=== PATIENT | female | born 1975 | race Caucasian/White ===

== ENCOUNTER 2018-06-29 16:52 | Inpatient (IN) | payer SELFPAY ==
[~2018-06-29] VITALS: Ht 160 cm; Wt 72.5 kg
--- OUTSIDE RECORDS SUMMARY | 2018-06-29 17:03 | XMS REPORT | Referral Summary ---
Author Author [facility] Organization [facility] Address Unknown Phone Unavailable Care Team Providers Care Seismic Observer Name Role Phone Beronica Raphael PCP Encounter VC Date(s): 07/05/16 - 07/06/16 [facility] [address] [place] [address] Discharge Diagnosis: Kidney stone Discharge Disposition: 01-Home or Self Care Attending Physician: Miguel Osborne MD Admitting Physician: Miguel Osborne MD Vital Signs Most recent to 1 oldest [Reference Range]: Temperature Oral 36.7 degC [35.8-37.3 degC] (07/05/16 11:53 PM) Peripheral Pulse 83 bpm Rate [60-100 bpm] (07/05/16 11:53 PM) Heart Rate Monitored 100 bpm [60-100 bpm] (07/06/16 3:12 AM) Respiratory Rate 20 br/min [14-20 br/min] (07/06/16 3:38 AM) Blood Pressure 114/65 mmHg [90-140/60-90 mmHg] (07/06/16 3:38 AM) Mean Arterial 92 mmHg Pressure, Cuff (07/06/16 3:00 AM) SpO2 99 % (07/06/16 3:38 AM) Problem List Condition Effective Dates Status Health Status Informant Acute Active pain(Confirmed) Anemia(Confirmed) Active patient At risk for Active infection(Confirmed) 1 Impaired skin Active integrity(Confirmed) 2 Kidney Active patient stones(Confirmed) MRSA(Confirmed) < 01/15/14 Resolved Obesity(Confirmed) Active patient Orbital cellulitis Active on right(Confirmed) Seizures(Confirmed) Active patient Tissue perfusion Active alteration(Confirmed )3 1Problem added automatically by system based on initiation of At Risk for Infection in Nutrition Plan of Care 2Problem added automatically by system based on initiation of Impaired Skin Integrity Plan of Care 3Problem added automatically by system based on initiation of Tissue Perfusion Cerebral Plan of Care Allergies, Adverse Reactions, Alerts Substance Reaction Severity Status Toradol Active Ultram seizures Active Medications acetaminophen 1,000 mg, Oral, q6hr, as needed for pain, Uses 3rd, 0 Refill(s) Start Date: 06/15/15 Status: Ordered Diflucan 150 mg oral tablet 150 mg 1 tabs, Oral, Once, # 1 tabs, 0 Refill(s) Start Date: 02/26/16 Status: Ordered Dilantin 100 mg oral capsule, extended release mg caps, Oral, Bedtime (once a day), 0 Refill(s) Start Date: 11/24/15 Status: Ordered ferrous sulfate 325 mg, Oral, TID, 0 Refill(s) Start Date: 01/16/15 Status: Ordered omeprazole 20 mg, Oral, Daily, 0 Refill(s) Start Date: 06/15/15 Status: Ordered Percocet 5/325 oral tablet 1 tabs, Oral, q4hr, as needed for pain, X 7 days, # 24 tabs, 0 Refill(s) Start Date: 07/06/16 Stop Date: 07/13/16 Status: Ordered Xanax 2 mg, Oral, TID, 0 Refill(s) Start Date: 01/16/15 Status: Ordered Zofran 4 mg oral tablet 4 mg 1 tabs, Oral, q4hr, Nausea or Vomiting | as needed for nausea/vomiting, # 10 tabs, 0 Refill(s) Start Date: 07/06/16 Status: Ordered Results Chemistry Most recent to 1 oldest [Reference Range]: Sodium Venous 140 mEq/L [136-144 mEq/L] (07/06/16 1:49 AM) Potassium Venous 3.8 mEq/L 1 [3.6-5.1 mEq/L] (07/06/16 1:49 AM) Calcium Ionized 1.15 mmol/L Venous [1.19-1.41 *LOW* mmol/L] (07/06/16 1:49 AM) Total CO2 Venous 25 mEq/L [25-29 mEq/L] (07/06/16 1:49 AM) HGB Venous NPT 8.8 gm/dL [12.0-16.0 gm/dL] *LOW* (07/06/16 1:49 AM) HCT Venous 26.0 % [37.0-47.0 %] *LOW* (07/06/16 1:49 AM) Glucose Venous 78 mg/dL [70-100 mg/dL] (07/06/16 1:49 AM) BUN Venous [4-20] 12 (07/06/16 1:49 AM) Creatinine Venous 0.6 mg/dL [0.4-1.0 mg/dL] (07/06/16 1:49 AM) Venous CL [99-109 104 mEq/L mEq/L] (07/06/16 1:49 AM) Anion Gap, Estuardo 11 [3-20] (07/06/16 1:49 AM) Screen, Negative Urine NPT (07/06/16 1:48 AM) 1Result Comment: This test was performed on a whole blood specimen. The presence or absence of hemolysis cannot be assessed. Hemolysis can falsely elevate potassium levels. Normals are for venous specimens only. Urinalysis Most recent to 1 oldest [Reference Range]: UA Color Yellow (07/06/16 1:50 AM) UA Appear Sl Cloudy (07/06/16 1:50 AM) UA pH [5.0-8.0] 5.0 (07/06/16 1:50 AM) UA Leuk Est Negative [Negative] (07/06/16 1:50 AM) UA Nitrite Negative [Negative] (07/06/16 1:50 AM) UA Protein Negative [Negative] (07/06/16 1:50 AM) UA Glucose Negative [Negative] (07/06/16 1:50 AM) UA Ketones Negative [Negative] (07/06/16 1:50 AM) UA Urobilinogen Negative [<1.0] (07/06/16 1:50 AM) UA Bili [Negative] Negative (07/06/16 1:50 AM) UA Blood [Negative] Pos 3+ *ABN* (07/06/16 1:50 AM) UA Spec Grav 1.030 [1.003-1.030] (07/06/16 1:50 AM) Type Clean Catch (07/06/16 1:50 AM) UA WBC [0-4] 2-5 (07/06/16 1:50 AM) UA RBC [0-2 /HPF] >50 /HPF *ABN* (07/06/16 1:50 AM) Epithelial Cells 5-10 (07/06/16 1:50 AM) UA Bacteria Occasional *ABN* (07/06/16 1:50 AM) Immunizations Given and Recorded Vaccine Date Status Refusal Reason influenza virus vaccine, live 05/04/11 Given tetanus-diphth toxoids (Td) adult/adol 09/30/03 Given Procedures No data available for this section Social History Social History Type Response Smoking Status Never smoker Assessment and Plan No data available for this section"
--- OUTSIDE RECORDS SUMMARY | 2018-06-29 17:03 | XMS REPORT | Referral Summary ---
Author Author [facility] Organization [facility] Address Unknown Phone Unavailable Care Team Providers Care Social Worker Assistant Name Role Phone Beronica Raphael PCP Encounter VC Date(s): 02/26/16 - 02/26/[address] [facility] [address] [place] [address] Discharge Diagnosis: Acute UTI Discharge Diagnosis: Ovarian cyst Discharge Diagnosis: Pelvic pain Discharge Disposition: 01-Home or Self Care Attending Physician: Ralph Amaya DO Admitting Physician: Ralph Amaya DO Vital Signs Most recent to 1 oldest [Reference Range]: Temperature Temporal 36 degC Artery [36.3-37.8 *LOW* degC] (02/26/16 7:22 AM) Peripheral Pulse 95 bpm Rate [60-100 bpm] (02/26/16 11:52 AM) Heart Rate Monitored 81 bpm [60-100 bpm] (02/26/16 11:19 AM) Respiratory Rate 16 br/min [14-20 br/min] (02/26/16 11:52 AM) Blood Pressure 115/79 mmHg [90-140/60-90 mmHg] (02/26/16 11:19 AM) Mean Arterial 89 mmHg Pressure, Cuff (02/26/16 11:19 AM) SpO2 97 % (02/26/16 11:52 AM) Problem List Condition Effective Dates Status [...] 0 Refill(s) Start Date: 06/15/15 Status: Ordered Cipro 250 mg oral tablet 250 mg 1 tabs, Oral, q12hr, X 7 days, # 14 tabs, 0 Refill(s) Start Date: 02/26/16 Stop Date: 03/04/16 Status: Ordered Diflucan 150 mg oral tablet 150 mg 1 tabs, Oral, Once, # 1 tabs, 0 Refill(s) Start Date: 02/26/16 Status: Ordered Dilantin 100 mg oral capsule, extended release mg caps, Oral, Bedtime (once a day), 0 Refill(s) Start Date: 11/24/15 Status: Ordered ferrous sulfate 325 mg, Oral, TID, 0 Refill(s) Start Date: 01/16/15 Status: Ordered Ona 5 mg-325 mg oral tablet 1 tabs, Oral, q6hr, as needed for pain, # 24 tabs, 0 Refill(s) Start Date: 02/26/16 Stop Date: 03/06/16 Status: Ordered omeprazole 20 mg, Oral, Daily, 0 Refill(s) Start Date: 06/15/15 Status: Ordered Xanax 2 mg, Oral, TID, 0 Refill(s) Start Date: 01/16/15 Status: Ordered Zofran ODT 4 mg oral tablet, disintegrating 4 mg 1 tabs, Oral, q6hr, Nausea or Vomiting | as needed for nausea/vomiting, # 18 tabs, 0 Refill(s) Start Date: 02/26/16 Stop Date: 03/06/16 Status: Ordered Results Hematology Most recent to 1 oldest [Reference Range]: WBC [4.8-10.8 6.7 10*3/uL 10*3/uL] (02/26/16 7:59 AM) RBC [4.00-5.20] 4.22 (02/26/16 7:59 AM) Hgb [12.0-16.0 10.0 gm/dL gm/dL] *LOW* (02/26/16 7:59 AM) Hct [37.0-47.0 %] 34.0 % *LOW* (02/26/16 7:59 AM) MCV [82.0-99.0 fL] 80.6 fL *LOW* (02/26/16 7:59 AM) MCH [27.0-32.0 pg] 23.7 pg *LOW* (02/26/16 7:59 AM) MCHC [32.0-36.0 29.4 gm/dL gm/dL] *LOW* (02/26/16 7:59 AM) RDW [11.5-14.5 %] 16.2 % *HI* (02/26/16 7:59 AM) Platelet [150-400 325 10*3/uL 10*3/uL] (02/26/16 7:59 AM) MPV [9.4-12.4 fL] 9.7 fL (02/26/16 7:59 AM) Immature 0.1 % Granulocytes (02/26/16 7:59 AM) [0.0-1.0 %] Neutrophils [51-75 59 % %] (02/26/16 7:59 AM) Lymphocytes [20-46 31 % %] (02/26/16 7:59 AM) Monocytes [4-11 %] 8 % (02/26/16 7:59 AM) Eosinophils [0-4 %] 2 % (02/26/16 7:59 AM) Basophils [0-2 %] 0 % (02/26/16 7:59 AM) Neutro Absolute 3.94 10*3 [1.90-7.00 10*3] (02/26/16 7:59 AM) Lymph Absolute 2.11 10*3 [0.80-3.30 10*3] (02/26/16 7:59 AM) [place] Absolute 0.51 10*3 [0.30-1.00 10*3] (02/26/16 7:59 AM) Eos Absolute 0.12 10*3 [0.00-0.50 10*3] (02/26/16 7:59 AM) Baso Absolute 0.03 10*3 [0.00-0.20 10*3] (02/26/16 7:59 AM) Chemistry Most recent to 1 oldest [Reference Range]: Sodium Lvl [136-144 140 mEq/L mEq/L] (02/26/16 7:59 AM) Potassium Lvl 3.3 mEq/L [3.6-5.1 mEq/L] *LOW* (02/26/16 7:59 AM) Chloride [99-109 107 mEq/L mEq/L] (02/26/16 7:59 AM) CO2 [22-32 mEq/L] 25 mEq/L (02/26/16 7:59 AM) AGAP [3-20] 8 (02/26/16 7:59 AM) BUN [4-20 mg/dL] 9 mg/dL (02/26/16 7:59 AM) Glucose Lvl [70-100 80 mg/dL mg/dL] (02/26/16 7:59 AM) Creatinine Lvl 0.57 mg/dL [0.44-1.03 mg/dL] (02/26/16 7:59 AM) eGFR [>60] >60 1 (02/26/16 7:59 AM) Calcium Lvl 8.3 mg/dL [8.6-10.0 mg/dL] *LOW* (02/26/16 7:59 AM) Albumin Lvl [3.5-4.8 3.1 gm/dL gm/dL] *LOW* (02/26/16 7:59 AM) Total Protein 5.9 gm/dL [6.1-7.9 gm/dL] *LOW* (02/26/16 7:59 AM) Globulin [1.9-4.3 2.8 gm/dL gm/dL] (02/26/16 7:59 AM) ALT [14-54 U/L] 10 U/L *LOW* (02/26/16 7:59 AM) AST [15-41 U/L] 17 U/L (02/26/16 7:59 AM) Alk Phos [26-104 72 U/L U/L] (02/26/16 7:59 AM) Bili Total [0.2-1.2 0.1 mg/dL 2 mg/dL] *LOW* (02/26/16 7:59 AM) Lipase Lvl [8-48 25 U/L U/L] (02/26/16 7:59 AM) Screen, Negative Urine NPT (02/26/16 7:39 AM) 1Result Comment: Multiply eGFR results by 1.21 for race. 2Result Comment: Naproxen, specifically the metabolite O-desmethylnaproxen, may cause spurious elevation in Total Bilirubin levels. Urinalysis Most recent to 1 oldest [Reference Range]: UA Color Yellow (02/26/16 7:59 AM) UA Appear Sl Cloudy (02/26/16 7:59 AM) UA pH [5.0-8.0] 6.0 (02/26/16 7:59 AM) UA Leuk Est Trace [Negative] *ABN* (02/26/16 7:59 AM) UA Nitrite Negative [Negative] (02/26/16 7:59 AM) UA Protein Negative [Negative] (02/26/16 7:59 AM) UA Glucose Negative [Negative] (02/26/16 7:59 AM) UA Ketones Negative [Negative] (02/26/16 7:59 AM) UA Urobilinogen 2.0 mg/dL [<1.0 mg/dL] *ABN* (02/26/16 7:59 AM) UA Bili [Negative] Negative (02/26/16 7:59 AM) UA Blood [Negative] Negative (02/26/16 7:59 AM) UA Spec Grav 1.015 [1.003-1.030] (02/26/16 7:59 AM) Type Clean Catch (02/26/16 7:59 AM) UA WBC [0-4] 5-10 *ABN* (02/26/16 7:59 AM) UA RBC [0-2] 2-5 (02/26/16 7:59 AM) Epithelial Cells 2-5 (02/26/16 7:59 AM) UA Bacteria Rare (02/26/16 7:59 AM) UA Mucous Present (02/26/16 7:59 AM) Microbiology Reports TEST: Affirm Vaginitis Panel STATUS: Auth (Verified) BODY SITE: SOURCE: Cervix/Vaginal COLLECTED DATE/TIME: 02/26/16 7:59 AM Affirm Vaginitis Panel Negative for Trichomonas vaginalis Positive for Gardnerella vaginalis Negative for Johnna species Immunizations Vaccine Date Refusal Reason influenza virus vaccine, live 05/04/11 tetanus-diphth toxoids (Td) adult/adol 09/30/03 Procedures No data available for this section Social History Social History Type Response Smoking Status Never smoker Assessment and Plan No data available for this section"
--- OUTSIDE RECORDS SUMMARY | 2018-06-29 17:03 | XMS REPORT | Referral Summary ---
Author Author [facility] Organization [facility] Address Unknown Phone Unavailable Care Team Providers Care Respiratory Care Program Director Name Role Phone Beronica Raphael PCP Encounter VC Date(s): 12/17/17 - 12/17/17 [facility] [address] [place] [address] Encounter Diagnosis Pain, dental (Discharge Diagnosis) - 12/17/17 Dental infection (Discharge Diagnosis) - 12/17/17 Discharge Disposition: 01-Home or Self Care Attending Physician: Aidan Rodriguez MD Admitting Physician: Aidan Rodriguez MD Vital Signs Most recent to 1 oldest [Reference Range]: Temperature Oral 36.9 degC [35.8-37.3 degC] (12/17/17 12:01 PM) Peripheral Pulse 114 bpm 1 Rate [60-100 bpm] *HI* (12/17/17 12:55 PM) Respiratory Rate 18 br/min [14-20 br/min] (12/17/17 12:01 PM) Blood Pressure 127/75 mmHg [90-140/60-90 mmHg] (12/17/17 12:55 PM) SpO2 97 % (12/17/17 12:01 PM) 1Result Comment: pain pill given- Stephen SIMPSON states ok to be dismissed Problem List Condition Effective Dates Status Health [...] 0 Refill(s) Start Date: 01/16/15 Status: Ordered ibuprofen 800 mg oral tablet 800 mg 1 tabs, Oral, q6hr, not to exceed 3200 mg/day with food or milk GERONIMO/ George Sierra MD., # 24 tabs, 0 Refill(s) Start Date: 12/17/17 Stop Date: 12/21/17 Status: Ordered omeprazole 20 mg, Oral, Daily, 0 Refill(s) Start Date: 06/15/15 Status: Ordered penicillin V potassium 500 mg oral tablet 500 mg 1 tabs, Oral, q6hr, on an empty stomach SUP/George Sierra MD., X 7 days , # 28 tabs, 0 Refill(s) Start Date: 12/17/17 Stop Date: 12/24/17 Status: Ordered Xanax 2 mg, Oral, TID, 0 Refill(s) Start Date: 01/16/15 Status: Ordered Zofran 4 mg oral tablet 4 mg 1 tabs, Oral, q8hr, # 9 tabs, 0 Refill(s) Start Date: 09/12/16 Stop Date: 09/15/16 Status: Ordered Zofran 4 mg oral tablet 4 mg 1 tabs, Oral, q4hr, Nausea or Vomiting | as needed for nausea/vomiting, # 10 tabs, 0 Refill(s) Start Date: 07/06/16 Status: Ordered Zofran ODT 4 mg oral tablet, disintegrating 4 mg 1 tabs, Oral, q4hr, Nausea or Vomiting, # 10 tabs, 0 Refill(s) Start Date: 01/08/17 Stop Date: 01/11/17 Status: Ordered Results No data available for this section Immunizations Given and Recorded Vaccine Date Status Refusal Reason influenza virus vaccine, live 05/04/11 Given tetanus-diphth toxoids (Td) adult/adol 09/30/03 Given Procedures No data available for this section Social History Social History Type Response Smoking Status Never smoker entered on: 12/08/13 Assessment and Plan No data available for this section"
--- OUTSIDE RECORDS SUMMARY | 2018-06-29 17:03 | XMS REPORT | Referral Summary ---
Author Author [facility] Organization [facility] Address Unknown Phone Unavailable Care Team Providers Care Nursery Teacher Name Role Phone Beronica Raphael PCP Encounter Date(s): 09/12/16 - 09/12/16 [facility] [address] [place] [address] Discharge Diagnosis: Flank pain Discharge Diagnosis: Acute UTI Discharge Diagnosis: Hematuria Discharge Disposition: 01-Home or Self Care Attending Physician: George Sierra MD Admitting Physician: George Sierra MD Vital Signs Most recent to 1 oldest [Reference Range]: Temperature Oral 37.0 degC [35.8-37.3 degC] (09/12/16 6:15 PM) Peripheral Pulse 85 bpm Rate [60-100 bpm] (09/12/16 8:20 PM) Respiratory Rate 16 br/min [14-20 br/min] (09/12/16 8:20 PM) Blood Pressure 103/59 mmHg [90-140/60-90 mmHg] (09/12/16 8:20 PM) SpO2 98 % (09/12/16 8:20 PM) Problem List Condition Effective Dates Status Health [...] Refill(s) Start Date: 06/15/15 Status: Ordered Cipro 500 mg oral tablet 500 mg 1 tabs, Oral, q12hr, X 10 days, # 20 tabs, 0 Refill(s) Start Date: 09/12/16 Stop Date: 09/22/16 Status: Ordered Diflucan 150 mg oral tablet 150 mg 1 tabs, Oral, Once, # 1 tabs, 0 Refill(s) Start Date: 02/26/16 Status: Ordered Dilantin 100 mg oral capsule, extended release mg caps, Oral, Bedtime (once a day), 0 Refill(s) Start Date: 11/24/15 Status: Ordered ferrous sulfate 325 mg, Oral, TID, 0 Refill(s) Start Date: 01/16/15 Status: Ordered HYDROcodone-acetaminophen 5 mg-325 mg oral tablet 1 tabs, Oral, q4hr, Pain Moderate (4-6), X 2 days, # 12 tabs, 0 Refill(s) Start Date: 09/12/16 Stop Date: 09/14/16 Status: Ordered omeprazole 20 mg, Oral, Daily, [...] Most recent to 1 oldest [Reference Range]: U Beta hCG Ql Negative (09/12/16 6:58 PM) Urinalysis Most recent to 1 oldest [Reference Range]: UA Color Ute *ABN* (09/12/16 6:58 PM) UA Appear Cloudy *ABN* (09/12/16 6:58 PM) UA pH [5.0-8.0] 5.0 (09/12/16 6:58 PM) UA Leuk Est Pos 1+ [Negative] *ABN* (09/12/16 6:58 PM) UA Nitrite Negative [Negative] (09/12/16 6:58 PM) UA Protein Pos 1+ [Negative] *ABN* (09/12/16 6:58 PM) UA Glucose Negative [Negative] (09/12/16 6:58 PM) UA Ketones Trace [Negative] *ABN* (09/12/16 6:58 PM) UA Urobilinogen 2.0 mg/dL [<1.0 mg/dL] *ABN* (09/12/16 6:58 PM) UA Bili [Negative] Negative (09/12/16 6:58 PM) UA Blood [Negative] Pos 3+ *ABN* (09/12/16 6:58 PM) UA Spec Grav 1.035 [1.003-1.030] *ABN* (09/12/16 6:58 PM) Type Clean Catch (09/12/16 6:58 PM) UA WBC [0-4] 10-20 *ABN* (09/12/16 6:58 PM) UA RBC [0-2 /HPF] >50 /HPF *ABN* (09/12/16 6:58 PM) Epithelial Cells 10-20 (09/12/16 6:58 PM) UA Bacteria Numerous *ABN* (09/12/16 6:58 PM) Crystals Ca Ox (09/12/16 6:58 PM) UA Mucous Present (09/12/16 6:58 PM) Immunizations Given and Recorded Vaccine Date Status Refusal Reason influenza virus vaccine, live 05/04/11 Given tetanus-diphth toxoids (Td) adult/adol 09/30/03 Given Procedures No data available for this section Social History Social History Type Response Smoking Status Never smoker Assessment and Plan No data available for this section"
--- OUTSIDE RECORDS SUMMARY | 2018-06-29 17:03 | XMS REPORT | Referral Summary ---
Author [facility] Address Unknown Phone Unavailable Care Team Providers Care Supervisor Inspection Department Name Role Phone Beronica Raphael PCP Encounter VC Date(s): 01/17/15 - 01/17/15 [facility] [address] [place] [id number] Discharge Disposition: 01-Home or Self Care Attending Physician: Sofiya Keller MD Admitting Physician: Sofiya Keller MD Vital Signs No data available for this section Problem List Condition Effective Dates Status Health [...] 0 Refill(s) Start Date: 06/15/15 Status: Ordered ferrous sulfate 325 mg, Oral, TID, 0 Refill(s) Start Date: 01/16/15 Status: Ordered gabapentin 300 mg, Oral, TID, 0 Refill(s) Start Date: 06/15/15 Status: Ordered omeprazole 20 mg, Oral, Daily, 0 Refill(s) Start Date: 06/15/15 Status: Ordered phenytoin 100 mg oral capsule, extended release 200 mg 2 caps, Oral, BID, 0 Refill(s) Start Date: 06/22/15 Status: Ordered SUMAtriptan 4 mg/0.5 mL subcutaneous solution 4 mg 0.5 mL, SubCutaneous, Once, as needed for migraine headache, 0 Refill(s) Start Date: 06/15/15 Status: Ordered Xanax 2 mg, Oral, TID, 0 Refill(s) Start Date: 01/16/15 Status: Ordered Results No data available for this section Immunizations Vaccine Date Refusal Reason influenza virus vaccine, live 05/04/11 tetanus-diphth toxoids (Td) adult/adol 09/30/03 Procedures No data available for this section Social History Social History Type Response Smoking Status Never smoker Assessment and Plan No data available for this section
--- OUTSIDE RECORDS SUMMARY | 2018-06-29 17:04 | XMS REPORT | Referral Summary ---
Author Author [facility] Organization [facility] Address Unknown Phone Unavailable Care Team Providers Care Cleaner And Preparer Name Role Phone Beronica Raphael PCP Encounter VC Date(s): 11/24/15 - 11/25/15 [facility] [address] [place] [address] Discharge Diagnosis: Hematuria Discharge Diagnosis: Flank pain Discharge Disposition: 01-Home or Self Care Attending Physician: Annette Boudreaux MD Admitting Physician: Annette Boudreaux MD Vital Signs Most recent to 1 oldest [Reference Range]: Temperature Oral 36.7 degC [35.8-37.3 degC] (11/24/15 8:58 PM) Peripheral Pulse 76 bpm Rate [60-100 bpm] (11/24/15 10:00 PM) Heart Rate Monitored 74 bpm [60-100 bpm] (11/25/15 1:09 AM) Respiratory Rate 18 br/min [14-20 br/min] (11/25/15 1:09 AM) Blood Pressure 113/97 mmHg [90-140/60-90 mmHg] (11/25/15 1:09 AM) Mean Arterial 82 mmHg Pressure, Cuff (11/25/15 12:37 AM) SpO2 100 % (11/25/15 1:09 AM) Problem List Condition Effective Dates Status [...] 0 Refill(s) Start Date: 06/15/15 Status: Ordered Dilantin 100 mg oral capsule, extended release mg caps, Oral, Bedtime (once a day), 0 Refill(s) Start Date: 11/24/15 Status: Ordered ferrous sulfate 325 mg, Oral, TID, 0 Refill(s) Start Date: 01/16/15 Status: Ordered HYDROcodone-acetaminophen 5 mg-325 mg oral tablet 1 tabs, Oral, q4hr, Pain Moderate (4-6), X 2 days, # 12 tabs, 0 Refill(s) Start Date: 11/25/15 Stop Date: 11/27/15 Status: Ordered omeprazole 20 mg, Oral, Daily, 0 Refill(s) Start Date: 06/15/15 Status: Ordered ondansetron 4 mg oral tablet 4 mg 1 tabs, Oral, q4hr, Nausea or Vomiting, X 2 days, # 12 tabs, 0 Refill(s) Start Date: 11/25/15 Stop Date: 11/27/15 Status: Ordered Xanax 2 mg, Oral, TID, 0 Refill(s) Start Date: 01/16/15 Status: Ordered Results Hematology Most recent to 1 oldest [Reference Range]: WBC [4.8-10.8 8.5 10*3/uL 10*3/uL] (11/24/15 10:35 PM) RBC [4.00-5.20] 4.35 (11/24/15 10:35 PM) Hgb [12.0-16.0 11.0 gm/dL gm/dL] *LOW* (11/24/15 10:35 PM) Hct [37.0-47.0 %] 35.7 % *LOW* (11/24/15 10:35 PM) MCV [82.0-99.0 fL] 82.1 fL (11/24/15 10:35 PM) MCH [27.0-32.0 pg] 25.3 pg *LOW* (11/24/15 10:35 PM) MCHC [32.0-36.0 30.8 gm/dL gm/dL] *LOW* (11/24/15 10:35 PM) RDW [11.5-14.5 %] 16.6 % *HI* (11/24/15 10:35 PM) Platelet [150-400 282 10*3/uL 10*3/uL] (11/24/15 10:35 PM) MPV [9.4-12.4 fL] 9.5 fL (11/24/15 10:35 PM) Immature 0.1 % Granulocytes (11/24/15 10:35 PM) [0.0-1.0 %] Neutrophils [51-75 47 % %] *LOW* (11/24/15 10:35 PM) Lymphocytes [20-46 42 % %] (11/24/15 10:35 PM) Monocytes [4-11 %] 8 % (11/24/15 10:35 PM) Eosinophils [0-4 %] 2 % (11/24/15 10:35 PM) Basophils [0-2 %] 1 % (11/24/15 10:35 PM) Neutro Absolute 4.01 10*3 [1.90-7.00 10*3] (11/24/15 10:35 PM) Lymph Absolute 3.59 10*3 [0.80-3.30 10*3] *HI* (11/24/15 10:35 PM) [place] Absolute 0.65 10*3 [0.30-1.00 10*3] (11/24/15 10:35 PM) Eos Absolute 0.14 10*3 [0.00-0.50 10*3] (11/24/15 10:35 PM) Baso Absolute 0.07 10*3 [0.00-0.20 10*3] (11/24/15 10:35 PM) Chemistry Most recent to 1 oldest [Reference Range]: Sodium Lvl [136-144 137 mEq/L mEq/L] (11/24/15 10:35 PM) Potassium Lvl 3.4 mEq/L [3.6-5.1 mEq/L] *LOW* (11/24/15 10:35 PM) Chloride [99-109 104 mEq/L mEq/L] (11/24/15 10:35 PM) CO2 [22-32 mEq/L] 27 mEq/L (11/24/15 10:35 PM) AGAP [3-20] 6 (11/24/15 10:35 PM) BUN [4-20 mg/dL] 6 mg/dL (11/24/15 10:35 PM) Glucose Lvl [70-100 93 mg/dL mg/dL] (11/24/15 10:35 PM) Creatinine Lvl 0.73 mg/dL [0.44-1.03 mg/dL] (11/24/15 10:35 PM) eGFR [>60] >60 1 (11/24/15 10:35 PM) Calcium Lvl 9.1 mg/dL [8.6-10.0 mg/dL] (11/24/15 10:35 PM) Albumin Lvl [3.5-4.8 3.9 gm/dL gm/dL] (11/24/15 10:35 PM) Total Protein 6.8 gm/dL [6.1-7.9 gm/dL] (11/24/15 10:35 PM) Globulin [1.9-4.3 2.9 gm/dL gm/dL] (11/24/15 10:35 PM) ALT [14-54 U/L] 12 U/L *LOW* (11/24/15 10:35 PM) AST [15-41 U/L] 17 U/L (11/24/15 10:35 PM) Alk Phos [26-104 71 U/L U/L] (11/24/15 10:35 PM) Bili Total [0.2-1.2 0.7 mg/dL 2 mg/dL] (11/24/15 10:35 PM) Screen, Negative Urine NPT (11/24/15 10:41 PM) 1Result Comment: Multiply eGFR results by 1.21 for race. 2Result Comment: Naproxen, specifically the metabolite O-desmethylnaproxen, may cause spurious elevation in Total Bilirubin levels. Urinalysis Most recent to 1 oldest [Reference Range]: UA Color Yellow (11/24/15 10:35 PM) UA Appear Cloudy *ABN* (11/24/15 10:35 PM) UA pH [5.0-8.0] 6.0 (11/24/15 10:35 PM) UA Leuk Est Negative [Negative] (11/24/15 10:35 PM) UA Nitrite Negative [Negative] (11/24/15 10:35 PM) UA Protein Pos 1+ [Negative] *ABN* (11/24/15 10:35 PM) UA Glucose Negative [Negative] (11/24/15 10:35 PM) UA Ketones Trace [Negative] *ABN* (11/24/15 10:35 PM) UA Urobilinogen 2.0 mg/dL [<1.0 mg/dL] *ABN* (11/24/15 10:35 PM) UA Bili [Negative] Negative (11/24/15 10:35 PM) UA Blood [Negative] Pos 3+ *ABN* (11/24/15 10:35 PM) UA Spec Grav 1.030 [1.003-1.030] (11/24/15 10:35 PM) Type Clean Catch (11/24/15 10:35 PM) UA WBC [0-4] 0-2 (11/24/15 10:35 PM) UA RBC [0-2] 20-50 *ABN* (11/24/15 10:35 PM) Epithelial Cells 2-5 (11/24/15 10:35 PM) UA Bacteria Occasional *ABN* (11/24/15 10:35 PM) Crystals Ca Ox (11/24/15 10:35 PM) UA Mucous Present (11/24/15 10:35 PM) Immunizations Vaccine Date Refusal Reason influenza virus vaccine, live 05/04/11 tetanus-diphth toxoids (Td) adult/adol 09/30/03 Procedures No data available for this section Social History Social History Type Response Smoking Status Never smoker Assessment and Plan No data available for this section
--- OUTSIDE RECORDS SUMMARY | 2018-06-29 17:04 | XMS REPORT | Referral Summary ---
Author Organization Unknown Address Unknown Phone Unavailable Care Team Providers Care Union Contract Representative Name Role Phone Dea Eli PCP Encounter VC EFRAÍN [id number] Date(s): 06/12/14 - 06/13/[address] [address] Discharge Diagnosis: Anemia Discharge Diagnosis: Kidney stones Discharge Diagnosis: Flank pain Discharge Disposition: Home or Self Care Attending Physician: Sugar Alvarado MD Admitting Physician: Sugar Alvarado MD Vital Signs Most recent to 1 oldest [Reference Range]: Temperature Oral 36.6 degC [35.8-37.3 degC] (06/12/14 6:48 PM) Peripheral Pulse 102 bpm Rate [60-100 bpm] *HI* (06/12/14 7:05 PM) Heart Rate Monitored 95 bpm [60-100 bpm] (06/12/14 9:44 PM) Respiratory Rate 18 br/min [14-20 br/min] (06/12/14 7:05 PM) Blood Pressure 107/60 mmHg [90-140/60-90 mmHg] (06/12/14 9:44 PM) Mean Arterial 72 mmHg Pressure, Cuff (06/12/14 7:25 PM) Most recent to 1 oldest [Reference Range]: SpO2 99 % (06/12/14 9:44 PM) Problem List Condition Effective Dates Status Health Status Informant Anemia(Confirmed) Active patient Kidney Active patient stones(Confirmed) MRSA(Confirmed) < 01/15/14 Resolved Seizures(Confirmed) Active patient Allergies, Adverse Reactions, Alerts Substance Reaction Severity Status Toradol Active Ultram seizures Active Medications Crutches (DME) DME Item non weight bearing duration: one month, See Instructions, # 1 Each, 0 Refill(s), Supply Special Instructions: non weight bearing duration: one month Start Date: 12/08/13 Status: Ordered Dilantin-125 mg, Oral, TID, 0 Refill(s) Start Date: 12/08/13 Status: Ordered ferrous sulfate (as elemental iron) 15 mg/1.5 mL oral liquid 0 Refill(s) Start Date: 12/08/13 Status: Ordered Flomax 0.4 mg oral capsule 1 caps, Oral, Dinner, # 30 caps, 0 Refill(s) Start Date: 06/12/14 Status: Ordered [place] 5 mg-325 mg oral tablet 1 tabs, Oral, q4hr, as needed for pain, # 14 tabs, 0 Refill(s) Start Date: 06/12/14 Stop Date: 06/15/14 Status: Ordered Zofran ODT 4 mg oral tablet, disintegrating 1 tabs, Oral, q8hr, Sup MD Dr Barrera, # 9 tabs, 0 Refill(s) Special Instructions: Sup MD Dr Barrera Start Date: 05/14/14 Stop Date: 05/17/14 Status: Ordered Results Chemistry Most recent to 1 oldest [Reference Range]: Sodium Venous 137 mEq/L [136-144 mEq/L] (06/12/14 7:37 PM) Potassium Venous 4.4 mEq/L 1 [3.6-5.1 mEq/L] (06/12/14 7:37 PM) Calcium Ionized 1.19 mmol/L Venous [1.19-1.41 (06/12/14 7:37 PM) mmol/L] Total CO2 Venous 23 mEq/L [25-29 mEq/L] *LOW* (06/12/14 7:37 PM) HGB Venous NPT 8.8 gm/dL [12.0-16.0 gm/dL] *LOW* (06/12/14 7:37 PM) HCT Venous 26.0 % [37.0-47.0 %] *LOW* (06/12/14 7:37 PM) Glucose Venous 98 mg/dL [70-100 mg/dL] (06/12/14 7:37 PM) BUN Venous [4-20] 26 *HI* (06/12/14 7:37 PM) Creatinine Venous 0.7 mg/dL [0.4-1.0 mg/dL] (06/12/14 7:37 PM) Venous CL [99-109 104 mEq/L mEq/L] (06/12/14 7:37 PM) Anion Gap, [place] 10 [3-20] (06/12/14 7:37 PM) U Beta hCG Ql Negative [Negative] (06/12/14 7:20 PM) 1Result Comment: This test was performed on a whole blood specimen. The presence or absence of hemolysis cannot be assessed. Hemolysis can falsely elevate potassium levels. Normals are for venous specimens only. Urinalysis Most recent to 1 oldest [Reference Range]: UA Color Lt Yellow (06/12/14 7:20 PM) UA Appear Clear (06/12/14 7:20 PM) UA pH [5.0-8.0] 7.0 (06/12/14 7:20 PM) UA Leuk Est Negative [Negative] (06/12/14 7:20 PM) UA Nitrite Negative [Negative] (06/12/14 7:20 PM) UA Protein Negative [Negative] (06/12/14 7:20 PM) UA Glucose Negative [Negative] (06/12/14 7:20 PM) UA Ketones Negative [Negative] (06/12/14 7:20 PM) UA Urobilinogen Negative [<1.0] (06/12/14 7:20 PM) UA Bili [Negative] Negative (06/12/14 7:20 PM) UA Blood [Negative] Pos 3+ *ABN* (06/12/14 7:20 PM) UA Spec Grav 1.005 [1.003-1.030] (06/12/14 7:20 PM) Type Clean Catch (06/12/14 7:20 PM) UA WBC [0-4] 0-2 (06/12/14 7:20 PM) UA RBC [0-2] 5-10 *ABN* (06/12/14 7:20 PM) Epithelial Cells 0-2 (06/12/14 7:20 PM) UA Bacteria Rare (06/12/14 7:20 PM) Immunizations Vaccine Date Refusal Reason influenza virus vaccine, live 05/04/11 tetanus-diphth toxoids (Td) adult/adol 09/30/03 Procedures No data available for this section Social History Social History Type Response Smoking Status Never smoker Assessment and Plan No data available for this section
--- OUTSIDE RECORDS SUMMARY | 2018-06-29 17:04 | XMS REPORT | Referral Summary ---
Author Author [facility] Organization [facility] Address Unknown Phone Unavailable Care Team Providers Care Sealing And Canceling Machine Operator Name Role Phone Beronica Raphael PCP Encounter Date(s): 02/24/17 - 02/24/17 [facility] [address] [place] [id number] Discharge Disposition: 07-Left Without Being Seen Vital Signs No data available for this [...]
--- OUTSIDE RECORDS SUMMARY | 2018-06-29 17:04 | XMS REPORT | Referral Summary ---
Author Author [facility] Organization [facility] Address Unknown Phone Unavailable Care Team Providers Care Welding Machine Operator Thermit Name Role Phone Beronica Raphael PCP Encounter VC Date(s): 01/08/17 - 01/08/17 [facility] [address] [place] [address] Discharge Diagnosis: Kidney stone on left side Discharge Disposition: -Home or Self Care Attending Physician: Stephen Ortiz JR, MD Admitting Physician: Stephen Ortiz JR, MD Vital Signs Most recent to 1 oldest [Reference Range]: Temperature Oral 37 degC [35.8-37.3 degC] (01/08/17 5:29 AM) Peripheral Pulse 91 bpm Rate [60-100 bpm] (01/08/17 5:29 AM) Respiratory Rate 18 br/min [14-20 br/min] (01/08/17 5:29 AM) Blood Pressure 121/65 mmHg [90-140/60-90 mmHg] (01/08/17 5:29 AM) SpO2 99 % (01/08/17 5:29 AM) Problem List Condition Effective Dates Status [...] Pain Moderate (4-6), X 2 days, # 8 tabs, 0 Refill(s) Start Date: 01/08/17 Stop Date: 01/10/17 Status: Ordered omeprazole 20 mg, Oral, Daily, [...] 01/08/17 Stop Date: 01/11/17 Status: Ordered Results Hematology Most recent to 1 oldest [Reference Range]: WBC [4.8-10.8 4.6 10*3/uL 10*3/uL] *LOW* (01/08/17 7:07 AM) RBC [4.00-5.20] 4.28 (8/15/17 7:07 AM) Hgb [12.0-16.0 11.9 gm/dL gm/dL] *LOW* (01/08/17 AM) Hct [37.0-47.0 %] 38.1 % (01/08/17:07 AM) MCV [82.0-99.0 fL] 89.0 fL (01/08/17: AM) MCH [27.0-32.0 pg] 27.8 pg (01/08/17 AM) MCHC [32.0-36.0 31.2 gm/dL gm/dL] *LOW* (01/08/17:07 AM) RDW [11.5-14.5 %] 18.0 % *HI* (01/08/17 AM) Platelet [150-400 230 10*3/uL 10*3/uL] (01/08/17 7:07 AM) MPV [9.4-12.4 fL] 9.4 fL (01/08/17:07 AM) Immature 0.0 % Granulocytes (01/08/17:07 ) [0.0-1.0 %] Neutrophils [51-75 55 % %] (01/08/17 7:07 AM) Lymphocytes [20-46 33 % %] (01/08/17:07 AM) Monocytes [4-11 %] 9 % (01/08/17 7:07 AM) Eosinophils [0-4 %] 3 % (01/08/17:07 AM) Basophils [0-2 %] 0 % (01/08/17:07 AM) Neutro Absolute 2.51 [1.90-7.00] (01/08/17 7:07 AM) Lymph Absolute 1.48 [0.80-3.30] (01/08/17 7:07 AM) [place] Absolute 0.40 [0.30-1.00] (01/08/17 7:07 AM) Eos Absolute 0.14 [0.00-0.50] (01/08/17 7:07 AM) Baso Absolute 0.02 [0.00-0.20] (01/08/17 7:07 AM) Nucleated RBC 0.0 /100 WBC Automated [0 /100 (01/08/17 7:07 AM) WBC] Chemistry Most recent to 1 oldest [Reference Range]: Sodium Lvl [136-144 138 mEq/L mEq/L] (01/08/17 7:07 AM) Potassium Lvl 3.9 mEq/L [3.6-5.1 mEq/L] (01/08/17 7:07 AM) Chloride [99-109 106 mEq/L mEq/L] (01/08/17 7:07 AM) CO2 [22-32 mEq/L] 26 mEq/L (01/08/17 7:07 AM) AGAP [3-20 mEq/L] 6 mEq/L (01/08/17 7:07 AM) BUN [4-20 mg/dL] 10 mg/dL (01/08/17 7:07 AM) Glucose Lvl [70-100 91 mg/dL mg/dL] (01/08/17 7:07 AM) Creatinine Lvl 0.61 mg/dL [0.44-1.03 mg/dL] (01/08/17 7:07 AM) eGFR [>60 mL/min] >60 mL/min 1 (01/08/17 7:07 AM) Calcium Lvl 9.0 mg/dL [8.6-10.0 mg/dL] (01/08/17 7:07 AM) Albumin Lvl [3.5-4.8 3.7 gm/dL gm/dL] (01/08/17 7:07 AM) Total Protein 6.7 gm/dL [6.1-7.9 gm/dL] (01/08/17 7:07 AM) Globulin [1.9-4.3 3.0 gm/dL gm/dL] (01/08/17 7:07 AM) ALT [14-54 U/L] 18 U/L (01/08/17 7:07 AM) AST [15-41 U/L] 22 U/L (01/08/17 7:07 AM) Alk Phos [26-104 62 U/L U/L] (01/08/17 7:07 AM) Bili Total [0.2-1.2 0.5 mg/dL 2 mg/dL] (01/08/17 7:07 AM) U Beta hCG Ql Negative (01/08/17 5:33 AM) 1Result Comment: Multiply eGFR results by 1.21 for race. 2Result Comment: Naproxen, specifically the metabolite O-desmethylnaproxen, may cause spurious elevation in Total Bilirubin levels. Urinalysis Most recent to 1 oldest [Reference Range]: UA Color Yellow (01/08/17 5:33 AM) UA Appear Cloudy *ABN* (01/08/17 5:33 AM) UA pH [5.0-8.0] 6.0 (01/08/17 5:33 AM) UA Leuk Est Negative [Negative] (01/08/17 5:33 AM) UA Nitrite Negative [Negative] (01/08/17 5:33 AM) UA Protein Pos 1+ [Negative] *ABN* (01/08/17 5:33 AM) UA Glucose Negative [Negative] (01/08/17 5:33 AM) UA Ketones Negative [Negative] (01/08/17 5:33 AM) UA Urobilinogen Negative [<1.0] (01/08/17 5:33 AM) UA Bili [Negative] Negative (01/08/17 5:33 AM) UA Blood [Negative] Pos 3+ *ABN* (01/08/17 5:33 AM) UA Spec Grav 1.020 [1.003-1.030] (01/08/17 5:33 AM) Type Clean Catch (01/08/17 5:33 AM) UA WBC [0-4] 0-2 (01/08/17 5:33 AM) UA RBC [0-2 /HPF] >50 /HPF *ABN* (01/08/17 5:33 AM) Epithelial Cells 5-10 (01/08/17 5:33 AM) UA Bacteria Rare (01/08/17 5:33 AM) Immunizations Given and Recorded Vaccine Date Status Refusal Reason influenza virus vaccine, live 05/04/11 Given tetanus-diphth toxoids (Td) adult/adol 09/30/03 Given Procedures No data available for this section Social History Social History Type Response Smoking Status Never smoker Assessment and Plan No data available for this section"
--- OUTSIDE RECORDS SUMMARY | 2018-06-29 17:04 | XMS REPORT | Referral Summary ---
Author Author Via Organization Via Address Unknown Phone Unavailable Care Team Providers Care Soil Fertility Specialist Name Role Phone Beronica Raphael PCP Encounter VC Date(s): 06/15/15 - 06/22/15 [address] [place] [address] Discharge Diagnosis: Orbital cellulitis on right Discharge Disposition: 01-Home or Self Care Attending Physician: Alida Ro DO Admitting Physician: Ralph King MD Vital Signs Most recent to 1 oldest [Reference Range]: Temperature Axillary 36.6 degC [35.2-36.7 degC] (06/21/15 4:35 AM) Temperature Oral 37.1 degC [35.8-37.3 degC] (06/22/15 2:40 PM) Temperature Temporal 37.1 degC Artery [36.3-37.8 (06/22/15 4:03 AM) degC] Peripheral Pulse 79 bpm Rate [60-100 bpm] (06/22/15 2:40 PM) Heart Rate Monitored 77 bpm [60-100 bpm] (06/22/15 4:03 AM) Respiratory Rate 20 br/min [14-20 br/min] (06/22/15 2:40 PM) Blood Pressure 100/69 mmHg [90-140/60-90 mmHg] (06/22/15 4:03 AM) Mean Arterial 127 mmHg Pressure, Cuff (06/15/15 6:33 PM) Systolic Blood 159 mmHg Pressure Invasive 2 *HI* [90-140 mmHg] (06/22/15 2:40 PM) Diastolic Blood 81 mmHg Pressure Invasive 2 (06/22/15 2:40 PM) [60-90 mmHg] SpO2 96 % (06/22/15 2:40 PM) Problem List Condition Effective Dates Status [...] 0 Refill(s) Start Date: 06/15/15 Status: Ordered clindamycin 300 mg oral capsule 300 mg 1 caps, Oral, q8hr, X 7 days, # 21 caps, 0 Refill(s), Pharmacy: [facility], 1 caps Oral q8hr,x7 days Start Date: 06/22/15 Stop Date: 06/29/15 Status: Ordered ferrous sulfate 325 mg, Oral, TID, 0 Refill(s) Start Date: 01/16/15 Status: Ordered gabapentin 300 mg, Oral, TID, 0 Refill(s) Start Date: 06/15/15 Status: Ordered omeprazole 20 mg, Oral, Daily, 0 Refill(s) Start Date: 06/15/15 Status: Ordered Percocet 7.5/325 oral tablet 1 tabs, Oral, q4hr, Pain Moderate (4-6), # 12 tabs, 0 Refill(s), other reason ( Rx) Start Date: 06/22/15 Stop Date: 06/29/15 Status: Ordered phenytoin 100 mg oral capsule, [...] to 1 oldest [Reference Range]: WBC [4.8-10.8 5.4 10*3/uL 10*3/uL] (06/22/15 4:02 AM) RBC [4.00-5.20] 3.68 *LOW* (06/22/15 4:02 AM) Hgb [12.0-16.0 9.7 gm/dL gm/dL] *LOW* (06/22/15 4:02 AM) Hct [37.0-47.0 %] 32.5 % *LOW* (06/22/15 4:02 AM) MCV [82.0-99.0 fL] 88.3 fL (06/22/15 4:02 AM) MCH [27.0-32.0 pg] 26.4 pg *LOW* (06/22/15 4:02 AM) MCHC [32.0-36.0 29.8 gm/dL gm/dL] *LOW* (06/22/15 4:02 AM) RDW [11.5-14.5 %] 16.4 % *HI* (06/22/15 4:02 AM) Platelet [150-400 210 10*3/uL 10*3/uL] (06/22/15 4:02 AM) MPV [9.4-12.4 fL] 9.2 fL *LOW* (06/22/15 4:02 AM) Immature 0.0 % Granulocytes (06/16/15 4:29 AM) [0.0-1.0 %] Neutrophils [51-75 38 % %] *LOW* (06/16/15 4:29 AM) Lymphocytes [20-46 50 % %] *HI* (06/16/15 4:29 AM) Monocytes [4-11 %] 9 % (06/16/15 4:29 AM) Eosinophils [0-4 %] 3 % (06/16/15 4:29 AM) Basophils [0-2 %] 1 % (06/16/15 4:29 AM) Neutro Absolute 1.47 10*3 [1.90-7.00 10*3] *LOW* (06/16/15 4:29 AM) Lymph Absolute 1.93 10*3 [0.80-3.30 10*3] (06/16/15 4:29 AM) [place] Absolute 0.35 10*3 [0.30-1.00 10*3] (06/16/15 4:29 AM) Eos Absolute 0.13 10*3 [0.00-0.50 10*3] (06/16/15 4:29 AM) Baso Absolute 0.02 10*3 [0.00-0.20 10*3] (06/16/15 4:29 AM) Nucleated RBC 0.0 /100 WBC Automated [0 /100 (06/16/15 4:29 AM) WBC] Chemistry Most recent to 1 oldest [Reference Range]: Sodium Lvl [136-144 139 mEq/L mEq/L] (06/22/15 4:02 AM) Potassium Lvl 3.7 mEq/L [3.6-5.1 mEq/L] (06/22/15 4:02 AM) Chloride [99-109 103 mEq/L mEq/L] (06/22/15 4:02 AM) CO2 [22-32 mEq/L] 30 mEq/L (06/22/15 4:02 AM) AGAP [3-20] 6 (06/22/15 4:02 AM) BUN [4-20 mg/dL] 4 mg/dL (06/22/15 4:02 AM) Glucose Lvl [70-100 113 mg/dL mg/dL] *HI* (06/22/15 4:02 AM) Creatinine Lvl 0.49 mg/dL [0.44-1.03 mg/dL] (06/22/15 4:02 AM) eGFR [>60] >60 1 (06/22/15 4:02 AM) Calcium Lvl 8.7 mg/dL [8.6-10.0 mg/dL] (06/22/15 4:02 AM) Albumin Lvl [3.5-4.8 2.9 gm/dL gm/dL] *LOW* (06/22/15 4:02 AM) Phosphorus [2.4-4.7 5.0 mg/dL 2 mg/dL] *HI* (06/22/15 4:02 AM) Lactic Acid Lvl 1.0 mEq/L [0.5-2.2 mEq/L] (06/15/15 4:36 PM) 1Result Comment: Multiply eGFR results by 1.21 for race. 2Result Comment: High dosages of liposomal Amphotericin B (AmBisome) therapy or other drug preparations that use a liposomal envelope to facilitate drug delivery may cause falsely elevated results for phosphorus. Therapeutic Drug Monitoring Most recent to 1 oldest [Reference Range]: Phenytoin Free 0.2 ug/mL [1.0-2.0 ug/mL] *LOW* (06/16/15 4:29 AM) Vancomycin Lvl 15.8 ug/mL [10.0-40.0 ug/mL] (06/17/15 4:24 PM) Microbiology Reports TEST: Blood Culture STATUS: Auth (Verified) BODY SITE: SOURCE: Blood COLLECTED DATE/TIME: 06/15/15 4:36 PM Blood Culture No growth after 5 days of incubation. TEST: Blood Culture STATUS: Auth (Verified) BODY SITE: SOURCE: Blood COLLECTED DATE/TIME: 06/15/15 4:36 PM Blood Culture No growth after 5 days of incubation. Immunizations Vaccine Date Refusal Reason influenza virus vaccine, live 05/04/11 tetanus-diphth toxoids (Td) adult/adol 09/30/03 Procedures No data available for this section Social History Social History Type Response Smoking Status Never smoker Assessment and Plan No data available for this section
--- OUTSIDE RECORDS SUMMARY | 2018-06-29 17:04 | XMS REPORT | Referral Summary ---
Author Author [facility] Organization [facility] Address Unknown Phone Unavailable Care Team Providers Care Communications Systems Engineer Name Role Phone Beronica Raphael PCP Encounter VC Date(s): 01/16/15 - 01/17/15 [facility] [address] [place] [id number] Final: OTHER CHEST PAIN Final: ANXIETY STATE, UNSPECIFIED Final: OTHER CONVULSIONS Final: ANEMIA, UNSPECIFIED Final: EPILEPSY, UNSPECIFIED, WITHOUT MENTION OF INTRACTABLE EPILEPSY Discharge Disposition: 01-Home or Self Care Attending Physician: Alvarez Bynum MD Admitting Physician: Alvarez Bynum MD Vital Signs Most recent to 1 oldest [Reference Range]: Temperature Oral 36.9 degC [35.8-37.3 degC] (01/17/15 8:03 AM) Temperature Temporal 37.2 degC Artery [36.3-37.8 (01/16/15 4:31 PM) degC] Peripheral Pulse 85 bpm Rate [60-100 bpm] (01/17/15 8:03 AM) Heart Rate Monitored 103 bpm [60-100 bpm] *HI* (01/17/15 3:19 AM) Respiratory Rate 18 br/min [14-20 br/min] (01/17/15 8:03 AM) Blood Pressure 126/86 mmHg [90-140/60-90 mmHg] (01/17/15 8:03 AM) Mean Arterial 92 mmHg Pressure, Cuff (01/16/15 4:00 PM) Systolic Blood 115 mmHg Pressure Invasive 2 (01/16/15 1:00 PM) [90-140 mmHg] Diastolic Blood 79 mmHg Pressure Invasive 2 (01/16/15 1:00 PM) [60-90 mmHg] SpO2 98 % (01/17/15 8:03 AM) Problem List Condition Effective Dates Status [...] to 1 oldest [Reference Range]: WBC [4.8-10.8 4.9 10*3/uL 10*3/uL] (01/17/15 5:37 AM) RBC [4.00-5.20] 4.17 (01/17/15 5:37 AM) Hgb [12.0-16.0 11.5 gm/dL gm/dL] *LOW* (01/17/15 5:37 AM) Hct [37.0-47.0 %] 37.7 % (01/17/15 5:37 AM) MCV [82.0-99.0 fL] 90.4 fL (01/17/15:37 AM) MCH [27.0-32.0 pg] 27.6 pg (01/17/15:37 AM) MCHC [32.0-36.0 30.5 gm/dL gm/dL] *LOW* (01/17/15:37 AM) RDW [11.5-14.5 %] 15.0 % *HI* (01/17/15:37 AM) Platelet [150-400 169 10*3/uL 10*3/uL] (01/17/15 5:37 AM) MPV [9.4-12.4 fL] 9.7 fL (01/17/15:37 AM) Immature 0.0 % Granulocytes (01/17/15:37 AM) [0.0-1.0 %] Neutrophils [51-75 42 % %] *LOW* (01/17/15:37 AM) Lymphocytes [20-46 46 % %] (01/17/15:37 AM) Monocytes [4-11 %] 11 % (01/17/15 5:37 AM) Eosinophils [0-4 %] 2 % (01/17/15:37 AM) Basophils [0-2 %] 0 % (01/17/15 5:37 AM) Neutro Absolute 2.05 10*3 [1.90-7.00 10*3] (01/17/15 5:37 AM) Lymph Absolute 2.23 10*3 [0.80-3.30 10*3] (01/17/15 5:37 AM) [place] Absolute 0.52 10*3 [0.30-1.00 10*3] (01/17/15 5:37 AM) Eos Absolute 0.08 10*3 [0.00-0.50 10*3] (01/17/15 5:37 AM) Baso Absolute 0.02 10*3 [0.00-0.20 10*3] (01/17/15 5:37 AM) Nucleated RBC 0.0 /100 WBC Automated [0 /100 (01/17/15:37 AM) WBC] Chemistry Most recent to 1 oldest [Reference Range]: Sodium Lvl [136-144 140 mEq/L mEq/L] (01/17/15 5:38 AM) Potassium Lvl 4.8 mEq/L 1 [3.6-5.1 mEq/L] (01/17/15 5:38 AM) Chloride [99-109 108 mEq/L mEq/L] (01/17/15 5:38 AM) CO2 [22-32 mEq/L] 28 mEq/L (01/17/15 5:38 AM) AGAP [3-20] 4 (01/17/15 5:38 AM) BUN [4-20 mg/dL] 3 mg/dL *LOW* (01/17/15 5:38 AM) Glucose Lvl [70-100 103 mg/dL mg/dL] *HI* (01/17/15 5:38 AM) Creatinine Lvl 0.58 mg/dL [0.44-1.03 mg/dL] (01/17/15 5:38 AM) eGFR [>60] >60 2 (01/17/15:38 AM) Calcium Lvl 8.7 mg/dL [8.6-10.0 mg/dL] (01/17/15 5:38 AM) Albumin Lvl [3.5-4.8 3.4 gm/dL gm/dL] *LOW* (01/17/15 5:38 AM) Total Protein 6.0 gm/dL [6.1-7.9 gm/dL] *LOW* (01/17/15 5:38 AM) Globulin [1.9-4.3 2.6 gm/dL gm/dL] (01/17/15 5:38 AM) ALT [14-54 U/L] 83 U/L *HI* (01/17/15 5:38 AM) AST [15-41 U/L] 141 U/L *HI* (01/17/15 5:38 AM) Alk Phos [26-104 91 U/L U/L] (01/17/15 5:38 AM) Bili Total [0.2-1.2 0.7 mg/dL 3 mg/dL] (01/17/15 5:38 AM) Magnesium Lvl 2.2 mg/dL [1.8-2.5 mg/dL] (01/17/15 5:38 AM) Phosphorus [2.4-4.7 4.2 mg/dL 4 mg/dL] (01/17/15 5:38 AM) Total CK [38-234 35 U/L U/L] *LOW* (01/16/15 3:40 PM) Troponin [<0.06 <0.05 ng/mL ng/mL] (01/17/15 5:38 AM) Screen, Negative Urine NPT (01/16/15 2:51 PM) Chol [0-200 mg/dL] 145 mg/dL (01/17/15 5:38 AM) Trig [0-150 mg/dL] 155 mg/dL *HI* (01/17/15 5:38 AM) HDL [>40 mg/dL] 42 mg/dL (01/17/15 5:38 AM) LDL [0-100 mg/dL] 72 mg/dL (01/17/15 5:38 AM) VLDL Cholesterol 31 mg/dL [0-30 mg/dL] *HI* (01/17/15 5:38 AM) Cardiac Risk 3.5 [0.0-5.0] (01/17/15 5:38 AM) TSH with Reflex Free 2.25 T4 [0.35-5.50] (01/16/15 3:40 PM) Hgb A1c [4.1-5.6 %] 5.3 % (01/17/15 5:37 AM) eAvg Glucose 105.4 mg/dL (01/17/15 5:37 AM) 1Result Comment: Hemolyzed specimen. The following tests may be affected: ALT, AST, Ammonia, Iron, Potassium, LDH, Amylase, CPK, and Total Bilirubin. 2Result Comment: Multiply eGFR results by 1.21 for race. 3Result Comment: Naproxen, specifically the metabolite O-desmethylnaproxen, may cause spurious elevation in Total Bilirubin levels. 4Result Comment: High dosages of liposomal Amphotericin B (AmBisome) therapy or other drug preparations that use a liposomal envelope to facilitate drug delivery may cause falsely elevated results for phosphorus. Therapeutic Drug Monitoring Most recent to 1 oldest [Reference Range]: Phenytoin Total Lvl <3 ug/mL [10-20 ug/mL] *LOW* (8/23/15 3:40 PM) Urinalysis Most recent to 1 oldest [Reference Range]: Type Venous (01/16/15 1:20 PM) Immunizations Vaccine Date Refusal Reason influenza virus vaccine, live 05/04/11 tetanus-diphth toxoids (Td) adult/adol 09/30/03 Procedures No data available for this section Social History Social History Type Response Smoking Status Never smoker Assessment and Plan No data available for this section
--- OUTSIDE RECORDS SUMMARY | 2018-06-29 17:04 | XMS REPORT ---
Author Author Reuben Mclain [facility] Address [address] [place] [id number] Care Team Providers Care Sales Exec Name Role Phone Reuben Mclain Unavailable PROBLEMS Unknown Problems ALLERGIES Unknown Allergies SOCIAL HISTORY No smoking Hx information available PLAN OF CARE VITAL SIGNS MEDICATIONS Unknown Medications RESULTS No Results PROCEDURES No Known procedures IMMUNIZATIONS No Known Immunizations
--- OUTSIDE RECORDS SUMMARY | 2018-06-29 17:04 | XMS REPORT ---
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 Name Role Phone Blanca Dawson CP Unavailable Allergies No Known Allergies Problems Problem Type Condition ICD-9 Code Onset Dates Condition Status Problem Abdominal pain, generalized 789.07 Active Problem Unspecified gingival and periodontal disease 523.9 Active Problem Esophageal reflux 530.81 Active Medications No Known Medications Vital Signs Date/Time: Jun 24, 2013 Weight 145.0 lbs Height 63 inches Blood Pressure Diastolic 68 mm Hg Blood Pressure Systolic 102 mm Hg Temperature 98.5 F Cardiac Monitoring Heart Rate 85 Beats per Minute Results No Known Results Summary Purpose [employer] Submission
--- OUTSIDE RECORDS SUMMARY | 2018-06-29 17:05 | XMS REPORT ---
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 Role Phone Blanca Dawson CP Unavailable Allergies No Known Allergies Problems Problem Type Condition ICD-9 Code Onset Dates Condition Status Problem Abdominal pain, generalized 789.07 Active Problem Unspecified gingival and periodontal disease 523.9 Active Problem Esophageal reflux 530.81 Active Assessment Unspecified gingival and periodontal disease 523.9 Active Assessment Esophageal reflux 530.81 Active Assessment Abdominal pain, generalized 789.07 Active Medications Medication Code System Code Instructions Start Date End Date Status Dosage Carafate [facility] [address]-31 1 GM Orally Twice a day Jun 24, 2013 Jul 24, 2013 Active 1 tablet Zofran ODT [facility] [address]-85 8 MG sublingual q8h prn for nausea Jun 24, 2013 Active 1 tablet Xanax [facility] [address]-73 1 MG Orally TID Active 1 tablet Amoxicillin [facility] [address]-70 500 MG Orally q8h Jun 24, 2013 Jul 04, 2013 Active 1 tablet Omeprazole [facility] [address]-34 20 MG Orally bid Active 1 capsule Zofran [facility] [address]-84 8 MG Orally Active as directed Procedures Procedure Coding System Code Date Office Visit, New Pt., Level 2 CPT-4 97583 Jun 24, 2013 Vital Signs Date/Time: Jun 24, 2013 Weight 145.0 lbs Height 63 inches Blood Pressure Diastolic 68 mm Hg Blood Pressure Systolic 102 mm Hg Temperature 98.5 F Cardiac Monitoring Heart Rate 85 Beats per Minute Results No Known Results Summary Purpose [employer] Submission
--- OUTSIDE RECORDS SUMMARY | 2018-06-29 17:05 | XMS REPORT | Referral Summary ---
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 Name Role Phone Dea Eli PCP Encounter VC Date(s): 07/16/14 - 07/16/[address] [id number] Discharge Disposition: Home or Self Care Attending Physician: Dea Eli MD Admitting Physician: Dea Eli MD Vital Signs No data available for [...] 0 Refill(s) Start Date: 06/12/14 Status: Ordered Zofran ODT 4 mg oral tablet, disintegrating 1 tabs, Oral, q8hr, Sup MD Dr Barrera, # 9 tabs, 0 Refill(s) Special Instructions: Rj Barrera Start Date: 05/14/14 Stop Date: 05/17/14 Status: Ordered Results No data available for this section Immunizations Vaccine Date Refusal Reason influenza virus vaccine, live 05/04/11 tetanus-diphth toxoids (Td) adult/adol 09/30/03 Procedures No data available for this section Social History Social History Type Response Smoking Status Never smoker Assessment and Plan No data available for this section
--- OUTSIDE RECORDS SUMMARY | 2018-06-29 17:10 | XMS REPORT | Continuity of Care Document ---
Author Author [facility] Address Unknown Phone Unavailable Allergies Active Description Code Type Severity Reaction Onset Reported/Identified Relationship to Patient Clinical Status Yes Codeine Drug Allergy Adverse Reaction 05/31/2011 Yes Codeine Drug Allergy N/A Adverse Reaction 05/31/2011 Yes Toradol Drug Allergy Severe soa 06/01/2011 Yes No Known Food Allergies Food Allergy 10/21/2011 Yes No Known Food Allergies Food Allergy N/A N/A 06/13/2013 Yes codeine NKMA N/A Adverse Reaction 09/22/2013 Yes morphine NKMA N/A itching 12/07/2013 Yes Ultram NKMA N/A seizures 12/07/2013 Yes morphine morphine Drug Allergy Unknown DIFF BREATHING 02/21/2014 Yes Toradol NKMA N/A N /A 06/12/2014 Yes ketorolac tromethamine ketorolac tromethamine Drug Allergy Mild DIFF BREATHING 2016 Yes tramadol tramadol Drug Allergy Unknown LOWERS SEIZURE THRESHOLD 2016 Yes No Known Allergies NKA MED N/A N/A 12/18/2016 Yes ketorolac tromethamine ketorolac tromethamine Drug Allergy Mild DIFF BREATHING 07/01/2017 Yes tramadol tramadol Drug Allergy Unknown LOWERS SEIZURE THRESHOLD 07/01/2017 Medications Medication Packaging Start Date Stop Date Route Dosage Sig ferrous sulfate(ferrous sulfate (as elemental iron) 15 mg/1.5 mL oral liquid) 12/08/2013 01/16/2015 HYDROcodone-acetaminophen([place] 5 mg-325 mg oral tablet) 1 tabs 12/08/2013 12/20/2013 Oral 1 tabs, Oral, q6hr, 12 tabs, PRN: as needed for pain HYDROcodone-acetaminophen([place] 5 mg-325 mg oral tablet) 1 tabs 01/24/2014 01/24/2014 Oral 1 tabs, Oral, Once, PRN: Pain clindamycin(clindamycin 150 mg oral capsule) 2 caps 01/24/2014 01/31/2014 Oral 300 mg 2 caps, Oral, q6hr, 56 caps HYDROcodone-acetaminophen(HYDROcodone-acetaminophen 5 mg-325 mg oral tablet) 1 tabs 01/24/20142013 Oral 1 tabs, Oral, q6hr, 12 tabs, PRN: Pain Moderate (4-6) ondansetron(Zofran) 2 mL 201305/14/2014 IV Push 4 mg 4 mg, IV Push, Once HYDROmorphone(Dilaudid) 1 mL 201305/14/2014 IV Push 1 mg 1 mg, IV Push, Once ondansetron(Zofran) 2 mL 201305/14/2014 IV Push 4 mg 4 mg, IV Push, Once HYDROmorphone(Dilaudid) 0.25 mL 05/14/2014 IV Push 0.5 mg 0.5 mg, IV Push, Once, PRN: Pain acetaminophen(acetaminophen) 2 tabs 05/14/2014 05/14/2014 Oral 1,000 mg 1,000 mg, Oral, Once metoclopramide(Reglan) 2 mL 201305/14/2014 IV Push 10 mg 10 mg, IV Push, Once ketorolac(Toradol) 1 mL 05/14/2014 05/14/2014 IV Push 30 mg 30 mg, IV Push, Once ondansetron(Zofran ODT 4 mg oral tablet, disintegrating) 1 tabs 05/14/2014 01/16/2015 Oral 4 mg 1 tabs, Oral, q8hr, Sup MD Dr Barrera, 9 tabs oxyCODONE-acetaminophen(Percocet 5/325 oral tablet) 1 tabs 05/14/2014 05/19/2014 Oral 1 tabs, Oral, q4hr, Sup MD Dr Barrera, 30 tabs, PRN: as needed for pain ondansetron(Zofran) 2 mL 201406/12/2014 IV Push 4 mg 4 mg, IV Push, Once morphine(morphine) 2 mL 06/12/2014 06/12/2014 IV Push 4 mg 4 mg, IV Push, Once morphine(morphine) 2 mL 06/12/2014 06/12/2014 IV Push 4 mg 4 mg, IV Push, Once morphine(morphine) 1 mL 06/12/2014 06/12/2014 IV Push 2 mg 2 mg, IV Push, Once ondansetron(Zofran) 2 mL 201406/12/2014 IV Push 4 mg 4 mg, IV Push, Once HYDROcodone-acetaminophen([place] 5 mg-325 mg oral tablet) 1 tabs 06/12/2014 06/15/2014 Oral 1 tabs, Oral, q4hr, 14 tabs, PRN: as needed for pain tamsulosin(Flomax 0.4 mg oral capsule) 1 caps 06/12/2014 01/16/2015 Oral 0.4 mg 1 caps, Oral, Dinner, 30 caps aspirin(aspirin) 4 tabs 01/16/2015 01/16/2015 Oral 324 mg 324 mg=4 tabs, Oral, Once morphine(morphine 4 mg/mL syringe 1 mL) 1 mL 01/16/2015 01/16/2015 IV Push 4 mg 4 mg=1 mL, IV Push, Once, PRN: Pain ondansetron(Zofran) 2 mL 201401/16/2015 IV Push 4 mg 4 mg=2 mL, IV Push, Once Sodium Chloride 0.9%(Sodium Chloride 0.9% Bolus) 1,000 mL 01/16/2015 01/16/2015 Bolus IV 1,000 mL, Bolus IV, Once morphine(morphine 4 mg/mL syringe 1 mL) 1 mL 01/16/2015 01/16/2015 IV Push 4 mg 4 mg=1 mL, IV Push, Once, PRN: Pain HYDROcodone-acetaminophen(HYDROcodone-acetaminophen 5 mg-325 mg oral tablet range dose) 1 tabs 01/16/2015 06/15/2015 Oral 1 tabs, Oral, q6hr, PRN: as needed for pain, 0 Refill(s) amoxicillin(amoxicillin 500 mg oral capsule) 1 caps 01/16/2015 06/15/2015 Oral 500 mg 500 mg=1 caps, Oral, TID, Started 01-15-15 x 10 days, 0 Refill(s) ondansetron(ondansetron 4 mg oral tablet) 1 tabs 01/16/2015 06/15/2015 4 mg 4 mg=1 tabs, 0 Refill(s) ALPRAZolam(Xanax) 01/16/2015 Oral 2 mg 2 mg, Oral, TID , 0 Refill(s) zolpidem(Ambien) 01/16/2015 06/15/2015 Oral 10 mg 10 mg , Oral, Bedtime (once a day), 0 Refill(s) ferrous sulfate(ferrous sulfate) 01/16/2015 Oral 325 mg 325 mg, Oral, TID, 0 Refill(s) ALPRAZolam(Xanax 2 mg oral tablet) 1 tabs 01/16/2015 06/15/2015 Oral 2 mg 2 mg=1 tabs, Oral, Bedtime (once a day), PRN: as needed for anxiety, 0 Refill(s) ondansetron(Zofran) 2 mL 201401/17/2015 IV Push 4 mg 4 mg=2 mL, IV Push, q6hr, PRN: Nausea Sodium Chloride 0.9%(Sodium Chloride 0.9% 1,000 mL) 1,000 mL 01/16/2015 01/17/2015 IV 125 mL/hr, IV enoxaparin(Lovenox) 0.4 mL 201401/17/2015 SubCutaneous 40 mg 40 mg=0.4 mL, SubCutaneous, Daily acetaminophen(acetaminophen) 2 tabs 01/16/2015 01/17/2015 Oral 650 mg 650 mg=2 tabs, Oral, q4hr, PRN: Other (See Comment) ALPRAZolam(Xanax) 2 tabs 201401/17/2015 Oral 1 mg 1 mg=2 tabs, Oral, BID amoxicillin(amoxicillin) 1 caps 01/17/2015 Oral 500 mg 500 mg=1 caps, Oral, TID ferrous sulfate(ferrous sulfate) 1 tabs 01/16/2015 01/17/2015 Oral 325 mg 325 mg=1 tabs, Oral, QID zolpidem(Ambien) 1 tabs 01/16/2015 01/17/2015 Oral 10 mg 10 mg=1 tabs, Oral, Bedtime (once a day) HYDROmorphone(HYDROmorphone) 0.5 mL 01/16/2015 01/16/2015 IV Push 0.5 mg 0.5 mg=0.5 mL, IV Push, q2hr, PRN: Pain nitroglycerin(Nitrostat 0.4 mg sublingual tablet) 1 tabs 01/16/2015 01/16/2015 SubLingual 0.4 mg 0.4 mg=1 tabs, SubLingual, q5min, PRN: Angina/Chest Pain morphine(morphine) 1 mL 01/16/2015 01/16/2015 IV Push 2 mg 2 mg=1 mL, IV Push, q5min, PRN: Chest Pain Unrelieved by Nitroglycerin carvedilol(Coreg) 1 tabs 201401/17/2015 Oral 3.125 mg 3.125 mg=1 tabs, Oral, BID lisinopril(Zestril) 1 tabs 201401/17/2015 Oral 5 mg 5 mg=1 tabs, Oral, Daily atorvastatin(Lipitor) 1 tabs 201401/17/2015 Oral 80 mg 80 mg=1 tabs, Oral, Daily magnesium sulfate(magnesium sulfate) 100 mL 01/16/2015 01/16/2015 IV Piggyback 1 g 1 g=100 mL, 100 mL/hr, IV Piggyback, Once morphine(morphine 2 mg/mL syringe 1 mL) 1 mL 01/16/2015 01/17/2015 IV 2 mg 2 mg=1 mL, IV, q5min, PRN: Chest Pain Unrelieved by Nitroglycerin HYDROmorphone(HYDROmorphone) 1 mL 01/16/2015 01/17/2015 IV Push 1 mg 1 mg=1 mL, IV Push, q2hr, PRN: Pain Moderate (4-6) ondansetron(Zofran) 2 mL 201401/17/2015 IV Push 4 mg 4 mg=2 mL, IV Push, q6hr, PRN: Nausea vancomycin(vancomycin) 201506/15/2015 IV Piggyback 1 g 1 g, 250 mL/hr, IV Piggyback, Once ondansetron(Zofran) 2 mL 201506/15/2015 IV Push 4 mg 4 mg=2 mL, IV Push, Once HYDROmorphone(Dilaudid) 1 mL 201506/15/2015 IV Push 1 mg 1 mg=1 mL, IV Push, Once cefTRIAXone(Rocephin) 10 mL 201506/15/2015 IV Push 1 g 1 g=10 mL, IV Push, Once HYDROmorphone(Dilaudid) 1 mL 201506/15/2015 IV Push 1 mg 1 mg=1 mL, IV Push, Once gabapentin(gabapentin) 201511/24/2015 Oral 300 mg 300 mg, Oral, TID, 0 Refill(s) omeprazole(omeprazole) 2015 Oral 20 mg 20 mg , Oral, Daily, 0 Refill(s) naproxen(Aleve) 06/15/2015 06/22/2015 Oral 220 mg 220 mg , Oral, q6hr, Uses 1st, PRN: as needed for pain, 0 Refill(s) ibuprofen(ibuprofen) 06/15/2015 06/22/2015 Oral 800 mg 800 mg, Oral, q12hr, Uses 2nd, PRN: as needed for pain, 0 Refill(s) acetaminophen(acetaminophen) Oral 1,000 mg 1,000 mg, Oral, q6hr, Uses 3rd, PRN: as needed for pain, 0 Refill(s) phenytoin(phenytoin) 06/15/2015 06/16/2015 Oral 100 mg 100 mg, Oral, TID, 0 Refill(s) SUMAtriptan(SUMAtriptan 4 mg/0.5 mL subcutaneous solution) 0.5 mL 06/15/2015 11/24/2015 SubCutaneous 4 mg 4 mg=0.5 mL, SubCutaneous, Once, PRN: as needed for migraine headache, 0 Refill(s) metoclopramide(Reglan) 2 mL 201506/22/2015 IV Push 10 mg 10 mg=2 mL, IV Push, q6hr, PRN: Nausea morphine(morphine) 1 mL 06/15/2015 06/22/2015 IV Push 2 mg 2 mg=1 mL, IV Push, q6hr, PRN: Pain Severe (7-10) ondansetron(Zofran) 1 tabs 201506/22/2015 Oral 4 mg 4 mg=1 tabs, Oral, q6hr, PRN: Nausea Sodium Chloride 0.9%(Sodium Chloride 0.9% 1,000 mL) 1,000 mL 06/15/2015 06/18/2015 IV 120 mL/hr, IV calcium carbonate(Tums) 1 tabs 06/22/2015 Oral 500 mg 500 mg=1 tabs, Oral, q4hr, PRN: GERD/Heartburn diphenhydrAMINE(Benadryl) 1 tabs 06/22/2015 Oral 25 mg 25 mg=1 tabs, Oral, Bedtime (once a day), PRN: Insomnia acetaminophen(acetaminophen) 2 tabs 06/15/2015 06/22/2015 Oral 650 mg 650 mg=2 tabs, Oral, q4hr, PRN: Other (See Comment) phenytoin(phenytoin) 1 caps 201506/17/2015 Oral 100 mg 100 mg=1 caps, Oral, TID pantoprazole(Protonix) 1 tabs 06/1506/22/2015 Oral 40 mg 40 mg=1 tabs, Oral, Daily gabapentin(gabapentin) 1 caps 06/1506/22/2015 Oral 300 mg 300 mg=1 caps, Oral, TID ferrous sulfate(ferrous sulfate) 1 tabs 06/15/2015 06/22/2015 Oral 325 mg 325 mg=1 tabs, Oral, TID ALPRAZolam(Xanax) 4 tabs 201506/22/2015 Oral 2 mg 2 mg=4 tabs, Oral, TID SUMAtriptan(SUMAtriptan) 0.5 mL 06/15/2015 SubCutaneous 4 mg 4 mg=0.5 mL, SubCutaneous, Once, PRN: Migraine Headache zolpidem(Ambien) 1 tabs 06/15/2015 06/22/2015 Oral 5 mg 5 mg=1 tabs, Oral, Bedtime (once a day), PRN: Insomnia cefTRIAXone(Rocephin) 20 mL 201506/15/2015 IV Push 2 g 2 g=20 mL, IV Push, Daily vancomycin(vancomycin) 250 mL 06/1506/16/2015 IV Piggyback 1.25 g 1.25 g=250 mL, 166.67 mL/hr, IV Piggyback, q8hr enoxaparin(Lovenox) 0.4 mL 201506/22/2015 SubCutaneous 40 mg 40 mg=0.4 mL, SubCutaneous, Daily ciprofloxacin ophthalmic(ciprofloxacin 0.3% ophthalmic solution) 2 drops 06/20/2015 06/22/2015 Eye-Both 2 drops, Eye-Both, [id number] oxyCODONE-acetaminophen(Percocet 7.5/325 oral tablet) 1 tabs 06/21/2015 06/22/2015 Oral 1 tabs, Oral, q4hr, PRN: Pain Moderate (4-6) clindamycin(clindamycin) 2 caps 06/22/2015 Oral 300 mg 300 mg=2 caps, Oral, q6hr clindamycin(clindamycin 300 mg oral capsule) 1 caps 06/22/2015 06/29/2015 Oral 300 mg 300 mg=1 caps, Oral, q8hr, for 7 days, 21 caps, 0 Refill(s) oxyCODONE-acetaminophen(Percocet 7.5/325 oral tablet) 1 tabs 06/22/2015 06/29/2015 Oral 1 tabs, Oral, q4hr, PRN: Pain Moderate (4-6), 12 tabs, 0 Refill(s) phenytoin(phenytoin 100 mg oral capsule, extended release) 2 caps 06/22/2015 11/24/2015 Oral 200 mg 200 mg=2 caps, Oral, BID, 0 Refill (s) phenytoin(Dilantin 100 mg oral capsule, extended release) caps 11/24/2015 Oral mg mg=caps, Oral, Bedtime (once a day), 0 Refill(s) HYDROmorphone(Dilaudid) 1 mL 201511/25/2015 IV Push 1 mg 1 mg=1 mL, IV Push, Once, PRN: Pain HYDROcodone-acetaminophen(HYDROcodone-acetaminophen 5 mg-325 mg oral tablet) 1 tabs 11/25/20152015 Oral 1 tabs, Oral, q4hr, for 2 days, PRN: Pain Moderate (4-6), 12 tabs, 0 Refill(s) ondansetron(ondansetron 4 mg oral tablet) 1 tabs 11/25/2015 11/27/2015 Oral 4 mg 4 mg=1 tabs, Oral, q4hr, for 2 days, PRN: Nausea or Vomiting, 12 tabs, 0 Refill(s) diphenhydrAMINE(Benadryl) 0.5 mL 11/25/2015 IV Push 25 mg 25 mg=0.5 mL, IV Push, Once ondansetron(Zofran) 2 mL 201502/26/2016 IV Push 4 mg 4 mg=2 mL, IV Push, q30min, PRN: Nausea morphine(morphine 4 mg/mL syringe 1 mL) 1 mL 02/26/2016 02/26/2016 IV Push 4 mg 4 mg=1 mL, IV Push, Once HYDROmorphone(Dilaudid) 1 mL 201502/26/2016 IV Push 1 mg 1 mg=1 mL, IV Push, Once ondansetron(Zofran ODT 4 mg oral tablet, disintegrating) 1 tabs 02/26/2016 03/06/2016 Oral 4 mg as needed for nausea/vomiting, # 18 tabs , 0 Refill(s) 4 mg=1 tabs, Oral, q6hr, PRN: Nausea or Vomiting as needed for nausea/vomiting, 18 tabs, 0 Refill(s) HYDROcodone-acetaminophen([place] 5 mg-325 mg oral tablet) 1 tabs 02/26/2016 03/06/2016 Oral 1 tabs, Oral, q6hr, PRN: as needed for pain , 24 tabs, 0 Refill(s) fluconazole(Diflucan 150 mg oral tablet) 1 tabs 02/26/2016 Oral 150 mg 150 mg=1 tabs, Oral, Once, 1 tabs, 0 Refill(s) ciprofloxacin(Cipro 250 mg oral tablet) 1 tabs 02/26/2016 03/04/2016 Oral 250 mg 250 mg=1 tabs, Oral, q12hr, for 7 days, 14 tabs, 0 Refill(s) ondansetron(Zofran) 2 mL 201607/06/2016 IV Push 4 mg 4 mg=2 mL, IV Push, Once HYDROmorphone(Dilaudid) 1 mL 201607/06/2016 IV Push 1 mg 1 mg=1 mL, IV Push, Once HYDROmorphone(Dilaudid) 1 mL 201607/06/2016 IV Push 1 mg 1 mg=1 mL, IV Push, Once oxycodone-acetaminophen(Percocet 5/325 oral tablet) 1 tabs 07/06/2016 07/13/2016 Oral 1 tabs, Oral, q4hr, for 7 days, PRN: as needed for pain, 24 tabs, 0 Refill(s) ondansetron(Zofran 4 mg oral tablet) 1 tabs 07/06/2016 Oral 4 mg as needed for nausea/vomiting, # 10 tabs, 0 Refill(s) 4 mg=1 tabs, Oral, q4hr, PRN: Nausea or Vomiting as needed for nausea/vomiting, 10 tabs, 0 Refill(s) ondansetron(Zofran) 2 mL 201609/12/2016 IV Push 4 mg 4 mg=2 mL, IV Push, Once morphine(morphine 4 mg/mL syringe 1 mL) 0.5 mL 09/12/2016 09/12/2016 IV Push 2 mg 2 mg=0.5 mL, IV Push, Once, PRN: Pain HYDROcodone-acetaminophen(HYDROcodone-acetaminophen 5 mg-325 mg oral tablet) 1 tabs 09/12/20162016 Oral 1 tabs, Oral, q4hr, for 2 days, PRN: Pain Moderate (4-6), 12 tabs, 0 Refill(s) ondansetron(Zofran 4 mg oral tablet) 1 tabs 09/12/2016 09/15/2016 Oral 4 mg 4 mg=1 tabs, Oral, q8hr, for 3 days, 9 tabs, 0 Refill(s) ciprofloxacin(Cipro 500 mg oral tablet) 1 tabs 09/12/2016 09/22/2016 Oral 500 mg 500 mg=1 tabs, Oral, q12hr, for 10 days, 20 tabs, 0 Refill(s) HYDROcodone-acetaminophen(HYDROcodone-acetaminophen 5 mg-325 mg oral tablet) 1 tabs 09/12/20162016 Oral 1 tabs, Oral, Once, PRN : Pain Moderate (4-6) Mirtazapine 15 MG Oral Tablet UD 02/17/2017 ORAL 15MG TAKE 1 TABLET AT BEDTIME. ondansetron(ondansetron) 2 mL 01/0801/08/2017 IV Push 4 mg 4 mg=2 mL, IV Push, Once HYDROmorphone(Dilaudid) 0.5 mL 01/08/2017 IV Push 0.5 mg 0.5 mg=0.5 mL, IV Push, Once, PRN: Pain ondansetron(Zofran ODT 4 mg oral tablet, disintegrating) 1 tabs 01/08/2017 01/11/2017 Oral 4 mg 4 mg=1 tabs, Oral, q4hr, for 3 days, PRN : Nausea or Vomiting, 10 tabs, 0 Refill(s) HYDROcodone-acetaminophen(HYDROcodone-acetaminophen 5 mg-325 mg oral tablet) 1 tabs 01/08/20172016 Oral 1 tabs, Oral, q4hr, for 2 days, PRN: Pain Moderate (4-6), 8 tabs, 0 Refill(s) penicillin V potassium(penicillin V potassium 500 mg oral tablet) 1 tabs 12/17/2017 12/24/2017 Oral 500 mg 500 mg=1 tabs, Oral, q6hr, for 7 days, on an empty stomach SUP/George Sierra MD., 28 tabs, 0 Refill(s) ibuprofen(ibuprofen 800 mg oral tablet) 1 tabs 12/17/2017 12/21/2017 Oral 800 mg 800 mg=1 tabs, Oral, q6hr, not to exceed 3200 mg/day with food or milk SUP/George Sierra MD., 24 tabs, 0 Refill(s) HYDROcodone-acetaminophen([place] 5 mg-325 mg oral tablet) 1 tabs 12/17/2017 12/17/2017 Oral 1 tabs, Oral, Once Problems Date Dx Coded Attending Type Code Diagnosis Diagnosed By 04/30/2012 Ralph Amaya DO Final 250.00 DM2/NOS UNCOMP NSU 04/30/2012 Ralph Amaya DO Final 338.19 ACUTE PAIN NEC 04/30/2012 Ralph Amaya DO Final 521.00 DENTAL CARIES NOS 04/30/2012 Ralph Amaya DO Admitting 525.9 DENTAL DISORDER NOS 12/22/2012 George Sierra MD Final 345.80 EPILEPSY NEC W/O INTRACT 12/22/2012 George Sierra MD Admitting 780.39 OTHER CONVULSIONS 12/22/2012 George Sierra MD Final 787.01 NAUSEA W VOMITING 06/13/2013 Wanda PIERRE, [place] Final 276.51 DEHYDRATION 06/13/2013 Wanda PIERRE, [place] Final 558.9 NONINF GASTROENT NEC NOS 06/13/2013 Wanda PIERRE, [place] Final 592.1 URETERAL CALCULUS 06/13/2013 Wanda PIERRE, [place] Admitting 787.01 NAUSEA W VOMITING 06/14/2013 Alesia PIERRE, Dorie Serrato Final 008.8 VIRAL ENTERITIS NOS 06/14/2013 Alesia PIERRE, Dorie Serrato Final 211.3 BENIGN LG INTEST NEOPL 06/14/2013 Alesia PIERRE, Dorie Serrato Final 250.00 DM2/NOS UNCOMP NSU 06/14/2013 Alesia PIERRE, Dorie Serrato Final 276.51 DEHYDRATION 06/14/2013 Dorie Dumas MD Final 280.9 IRON DEF ANEMIA NOS 06/14/2013 Alesia PIERRE, Dorie Serrato Final 300.00 ANXIETY STATE NOS 06/14/2013 Dorie Dumas MD Final 346.90 MIGRAINE NOS W/O SM 06/14/2013 Dorie Dumas MD Final 535.40 GASTRITIS NEC W/O HEMOR 06/14/2013 Dorie Dumas MD Final 592.1 URETERAL CALCULUS 06/14/2013 Dorie Dumas MD Admitting 787.01 NAUSEA W VOMITING 02/21/2014 Kendra Conrad MD 038.9 SEPTICEMIA NOS 02/21/2014 Kendra Conrad MD 079.99 VIRAL INFECTION NOS 02/21/2014 Kendra Conrad MD 250.00 DIAB ALINE WO COMPL, TYPE II OR UNSPEC TYPE, NOT UN 02/21/2014 Kendra Conrad MD 280.9 IRON DEFIC ANEMIA NOS 02/21/2014 Kendra Conrad MD 288.50 LEUKOCYTOPENIA, UNSPECIFIED 02/21/2014 Kendra Conrad MD 300.00 ANXIETY STATE NOS 02/21/2014 Kendra Conrad MD 346.90 MIGRAINE UNSPECIFIED W/O INTRACT MGRN W/O STATUS M 02/21/2014 Kendra Conrad MD 486 PNEUMONIA, ORGANISM NOS 02/21/2014 Conrad MD, Kendra L F 592.0 CALCULUS OF KIDNEY 02/21/2014 Anamaria PIERRE, Kendra Oshea F 599.70 HEMATURIA, UNSPECIFIED 02/21/2014 Anamaria PIERRE, Kendra Oshea F 786.2 COUGH 05/17/2014 Annmarie PIERRE, [place] Final 599.70 Hematuria, unspecified 05/17/2014 Annmarie PIERRE, [place] Sebastian Reason 724.2 LUMBAGO 05/17/2014 Annmarie PIERRE, [place] Sebastian Final 789.09 ABDOMINAL PAIN, OTHER SPECIFIED SITE; MULTIPLE SITES 06/14/2014 Sugar Alvarado Edmundo Final 285.9 ANEMIA, UNSPECIFIED 06/14/2014 Sugar Alvarado Final 592.0 CALCULUS OF KIDNEY 06/14/2014 Sugar Alvarado Reason 789.09 ABDOMINAL PAIN, OTHER SPECIFIED SITE; MULTIPLE SITES 07/19/2014 Final 250.00 Diabetes mellitus without mention of complication, type II or unspecified t 07/19/2014 Final 268.9 UNSPECIFIED VITAMIN D DEFICIENCY 07/19/2014 Final 272.2 MIXED HYPERLIPIDEMIA 07/19/2014 Final 280.9 IRON DEFICIENCY ANEMIA, UNSPECIFIED 07/19/2014 Final 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, EPILEPTIC 07/19/2014 Reason 724.5 BACKACHE , UNSPECIFIED 07/19/2014 Final 729.1 Myalgia and myositis, unspecified 10/19/2014 Harish Singletary DO 250.00 DIAB ALINE WO COMPL, TYPE II OR UNSPEC TYPE, NOT UN 10/19/2014 [place] Harish TRAVIS 280.9 IRON DEFIC ANEMIA NOS 10/19/2014 [place] Harish TRAVIS 296.32 RECURR DEPR DISORD-[facility] BIPOLAR DISORDER, UNSPECIFIED 10/19/2014 [place] Harish TRAVIS 300.00 ANXIETY STATE NOS 10/19/2014 [place] Harish TRAVIS 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 10/19/2014 [place] Harish TRAVIS 338.29 OTHER CHRONIC PAIN 10/19/2014 Harish Singletary DO 345.90 EPILEPSY UNSPEC W/O MENTION INTRACTABLE EPILEPSY 10/19/2014 [place] Harish TRAVIS 346.90 MIGRAINE UNSPECIFIED W/O INTRACT MGRN W/O STATUS M 10/19/2014 Harish Singletary DO 723.1 CERVICALGIA 10/19/2014 Harish Singletary DO 780.39 10/19/2014 Harish Singletary DO 789.00 ABDOMINAL PAIN, UNSPECIFIED SITE 10/19/2014 Harish Singletary DO V12.54 PERSONAL HX OF TIA, CEREBRAL INFARCTION W/OUT RES 10/19/2014 Harish Singletary DO V14.5 HX-NARCOTIC ALLERGY 10/19/2014 [place] Harish TRAVIS V14.6 HX-ANALGESIC ALLERGY 01/16/2015 Alvarez Bynum MD P Admitting 786.50 01/19/2015 Andrey Bynum MDlas P Final 285.9 ANEMIA, UNSPECIFIED 01/19/2015 Alvarez Bynum MD P Final 300.00 ANXIETY STATE, UNSPECIFIED 01/19/2015 Alvarez Bynum MD P Final 780.39 OTHER CONVULSIONS 01/19/2015 Alvarez Bynum MD P Reason 786.50 UNSPECIFIED CHEST PAIN 01/19/2015 Alvarez Bynum MD P Final 786.59 OTHER CHEST PAIN 01/19/2015 Alvarez Bynum MD P Final 345.90 EPILEPSY, UNSPECIFIED, WITHOUT MENTION OF INTRACTABLE EPILEPSY 04/16/2015 Harish Schaefer MD F15.10 OTHER STIMULANT ABUSE, UNCOMPLICATED 04/16/2015 Harish Schaefer MD I95.9 HYPOTENSION, UNSPECIFIED 04/16/2015 Harish Schaefer MD M54.2 CERVICALGIA 04/16/2015 Harish Schaefer MD N39.0 URINARY TRACT INFECTION, SITE NOT SPECIFIED 04/16/2015 Harish Schaefer MD R56.9 UNSPECIFIED CONVULSIONS 04/16/2015 Harish Schaefer MD R74.0 NONSPEC ELEV OF LEVELS OF TRANSAMNS LACTIC ACID 04/16/2015 Harish Schaefer MD 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, W LOC OF UNSP DURATION, INIT 04/16/2015 Harish Schaefer MD W18.30XA FALL ON SAME LEVEL, UNSPECIFIED, INITIAL ENCOUNTER 07/08/2015 Alida Ro DO Final D64.9 Anemia, unspecified 07/08/2015 Alida Ro DO Final F41.9 Anxiety disorder, unspecified 07/08/2015 Alida Ro DO Final G40.909 Epilepsy, unspecified, not intractable, without status epilepticus 07/08/2015 Alida Ro DO Admitting H05.011 Cellulitis of right orbit 07/08/2015 Alida Ro DO Final L03.211 Cellulitis of face 07/08/2015 Alida Ro DO Final M25.561 Pain in right knee 07/08/2015 Alida Ro DO Final H05.011 Cellulitis of right orbit 12/01/2015 Annette Boudreaux Reason R10.11 Right upper quadrant pain 12/01/2015 Annette Boudreaux Final R31.9 Hematuria, unspecified 02/28/2016 Jose Luis,Ralph Final N39.0 Urinary tract infection, site not specified 02/28/2016 Jose Luis,Ralph Final N83.201 Unspecified ovarian cyst, right side 02/28/2016 Jose Luis,Ralph Final N83.202 Unspecified ovarian cyst, left side 02/28/2016 Jose Luis,Ralph Reason R10.2 Pelvic and perineal pain 07/09/2016 Osborne Curt Final G40.909 Epilepsy, unspecified, not intractable, without status epilepticus 07/09/2016 Osborne Curt Final N20.0 Calculus of kidney 07/09/2016 Osborne Curt Reason R10.9 Unspecified abdominal pain 09/14/2016 Sierra Howard Final D64.9 Anemia, unspecified 09/14/2016 Sierra Howard Final N39.0 Urinary tract infection, site not specified 09/14/2016 Sierra Howard Reason R10.84 Generalized abdominal pain 09/14/2016 Sierra Howard Final R31.9 Hematuria, unspecified 09/14/2016 Sierra Howard Final R56.9 Unspecified convulsions 09/14/2016 Rigo,George Final Z87.442 Personal history of urinary calculi 2016 Arturo Austin MD D62 ACUTE POSTHEMORRHAGIC ANEMIA 2016 Arturo Austin MD F31.9 BIPOLAR DISORDER, UNSPECIFIED 2016 Arturo Austin MD F43.10 POST-TRAUMATIC STRESS DISORDER, UNSPECIFIED 2016 Arturo Austin MD G43.909 MIGRAINE, UNSP, NOT INTRACTABLE, WITHOUT STATUS MA 2016 Arturo Austin MD K25.4 CHRONIC OR UNSPECIFIED GASTRIC ULCER WITH HEMORRHA 2016 Arturo Austin MD R10.9 UNSPECIFIED ABDOMINAL PAIN 2016 Arturo Austin MD R56.9 UNSPECIFIED CONVULSIONS 12/03/2016 F F33.9 Major depressive disorder, recurrent, unspecified Susan Beltre 12/03/2016 F Z65.3 Problems related to other legal circumstances Susan Beltre 12/03/2016 F F33.9 Major depressive disorder, recurrent, unspecified Susan Beltre 12/03/2016 F Z65.3 Problems related to other legal circumstances Susan Beltre 12/18/2016 F F33.9 Major depressive disorder, recurrent, unspecified VaishnaviMarcos matthewsanea 12/18/2016 F Z65.3 Problems related to other legal circumstances VaishnaviMarcos matthewsanea 12/18/2016 F F33.9 Major depressive disorder, recurrent, unspecified Psy, Batch 12/18/2016 F Z65.3 Problems related to other legal circumstances Psy, Batch 01/11/2017 Stephen Ortiz Final D64.9 Anemia, unspecified 01/11/2017 Stephen Ortiz Final E66.9 Obesity, unspecified 01/11/2017 Setphen Ortiz Reason M54.9 Dorsalgia, unspecified 01/11/2017 Stephen Ortiz Final N20.0 Calculus of kidney 01/11/2017 Stephen Ortiz Final Z32.00 Encounter for test, result unknown 02/27/2017 Rader Jacob Reason R69 Illness, unspecified 02/28/2017 F F33.9 Major depressive disorder, recurrent, unspecified Nina Rivera 02/28/2017 F Z65.3 Problems related to other legal circumstances Nina Rivera 02/28/2017 F F33.9 Major depressive disorder, recurrent, unspecified Nina Rivera M 02/28/2017 F Z65.3 Problems related to other legal circumstances Nina Rivera 03/14/2017 F F33.9 Major depressive disorder, recurrent, unspecified Nina Rivera 03/14/2017 F Z65.3 Problems related to other legal circumstances Nina Rivera 03/14/2017 F F33.9 Major depressive disorder, recurrent, unspecified Nina Rivera 03/14/2017 F Z65.3 Problems related to other legal circumstances MiguelNina M 03/21/2017 F F33.9 Major depressive disorder, recurrent, unspecified Miguel, Nina M 03/21/2017 F Z65.3 Problems related to other legal circumstances Miguel, Nina M 03/27/2017 F F33.9 Major depressive disorder, recurrent, unspecified Miguel, Nina M 03/27/2017 F Z65.3 Problems related to other legal circumstances Miguel, Nina M 04/26/2017 F F33.9 Major depressive disorder, recurrent, unspecified Miguel, Nina M 04/26/2017 F Z65.3 Problems related to other legal circumstances MiguelNina M 04/26/2017 F F33.9 Major depressive disorder, recurrent, unspecified Miguel, Nina M 04/26/2017 F Z65.3 Problems related to other legal circumstances MiguelNina M 05/16/2017 F F33.9 Major depressive disorder, recurrent, unspecified Miguel, Nina M 05/16/2017 F Z65.3 Problems related to other legal circumstances MiguelNina M 05/16/2017 F F33.9 Major depressive disorder, recurrent, unspecified Miguel, Nina M 05/16/2017 F Z65.3 Problems related to other legal circumstances MiguelNina M 05/23/2017 F F33.9 Major depressive disorder, recurrent, unspecified Miguel, Nina M 05/23/2017 F Z65.3 Problems related to other legal circumstances MiguelNina M 05/23/2017 F F33.9 Major depressive disorder, recurrent, unspecified Miguel, Nina M 05/23/2017 F Z65.3 Problems related to other legal circumstances Miguel, Nina M 05/30/2017 F F33.9 Major depressive disorder, recurrent, unspecified Miguel, Nina M 05/30/2017 F Z65.3 Problems related to other legal circumstances Miguel, Nina M 06/14/2017 F F33.9 Major depressive disorder, recurrent, unspecified Miguel, Nina M 06/14/2017 F Z65.3 Problems related to other legal circumstances MiguelNina M 06/17/2017 F F33.9 Major depressive disorder, recurrent, unspecified Miguel, Nina M 06/17/2017 F Z65.3 Problems related to other legal circumstances MiguelNina M 07/01/2017 Teja Collazo MD A41.9 SEPSIS, UNSPECIFIED ORGANISM 07/01/2017 Teja Collazo MD C92.10 CHRONIC MYELOID LEUK, BCR/ABL-POSITIVE, NOT ACHIEV 07/01/2017 Teja Collazo MD D50.9 IRON DEFICIENCY ANEMIA, UNSPECIFIED 07/01/2017 Teja Collazo MD D69.6 THROMBOCYTOPENIA, UNSPECIFIED 07/01/2017 Teja Collazo MD E83.39 OTHER DISORDERS OF PHOSPHORUS METABOLISM 07/01/2017 Teja Collazo MD E83.42 HYPOMAGNESEMIA 07/01/2017 Teja Collazo MD E83.51 HYPOCALCEMIA 07/01/2017 Teja Collazo MD E87.6 HYPOKALEMIA 07/01/2017 Teja Collazo MD F19.10 OTHER PSYCHOACTIVE SUBSTANCE ABUSE, UNCOMPLICATED 07/01/2017 Teja Collazo MD F32.9 MAJOR DEPRESSIVE DISORDER, SINGLE EPISODE, UNSPECI 07/01/2017 Teja Collazo MD F41.9 ANXIETY DISORDER, UNSPECIFIED 07/01/2017 Teja Collazo MD G43.909 MIGRAINE, UNSP, NOT INTRACTABLE, WITHOUT STATUS MA 07/01/2017 Teja Collazo MD G47.00 INSOMNIA, UNSPECIFIED 07/01/2017 Teja Collazo MD I95.9 HYPOTENSION, UNSPECIFIED 07/01/2017 Teja Collazo MD M54.5 LOW BACK PAIN 07/01/2017 Teja Collazo MD N12 TUBULO-INTERSTITIAL NEPHRITIS, NOT SPCF ACUTE O 07/01/2017 Teja Collazo MD R56.9 UNSPECIFIED CONVULSIONS 07/01/2017 Teja Collazo MD T42.6X5A ADVERSE EFFECT OF ANTIEPILEPTIC AND SED-HYPNTC UNIQUE 07/01/2017 Teja Collazo MD Z86.73 PRSNL HX OF TIA (TIA), 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 07/01/2017 Teja Collazo MD Z87.19 PERSONAL HISTORY OF OTHER DISEASES OF THE DIGESTIV 07/01/2017 Vale PIERRE, Teja George F Z88.8 ALLERGY STATUS TO OTH DRUG/MEDS/BIOL SUBST STATUS 08/01/2017 F F33.9 Major depressive disorder, recurrent, unspecified Nina Rivera 08/01/2017 F Z65.3 Problems related to other legal circumstances Nina Rivera 08/01/2017 F F33.9 Major depressive disorder, recurrent, unspecified Nina Rivera M 08/01/2017 F Z65.3 Problems related to other legal circumstances Nina Rivera 08/08/2017 F F33.9 Major depressive disorder, recurrent, unspecified Miguel, Nina M 08/08/2017 F Z65.3 Problems related to other legal circumstances Nina Rivera 08/08/2017 F F33.9 Major depressive disorder, recurrent, unspecified Miguel, Nina M 08/08/2017 F Z65.3 Problems related to other legal circumstances Nina Rivera 08/15/2017 F F33.9 Major depressive disorder, recurrent, unspecified Miguel, Nina M 08/15/2017 F Z65.3 Problems related to other legal circumstances Nina Rivera 08/15/2017 F F33.9 Major depressive disorder, recurrent, unspecified Miguel, Nina M 08/15/2017 F Z65.3 Problems related to other legal circumstances Nina Rivera 08/16/2017 F F33.9 Major depressive disorder, recurrent, unspecified AlexsanderTorresSusan L 08/16/2017 F Z65.3 Problems related to other legal circumstances Susan Beltre 09/26/2017 F F33.9 Major depressive disorder, recurrent, unspecified Nina Rivera M 09/26/2017 F Z65.3 Problems related to other legal circumstances Nina Rivera 12/19/2017 Rodriguez James Final K04.7 Periapical abscess without sinus 12/19/2017 Rodriguez James Reason K08.89 Other specified disorders of teeth and supporting structures 12/19/2017 Rodriguez James Final Z88.6 Allergy status to analgesic agent status 02/20/2018 Stephen Ortiz Reason R07.9 Chest pain, unspecified Procedures Code Description Performed By Performed On 45.16 EGD WITH CLOSED BIOPSY Yani Mares MD, Arturo Cannon 06/18/2013 45.42 ENDO COLON POLYPECTOMY Yani Mares MD, Arturo Cannon 06/18/2013 99.04 PACKED CELL TRANSFUSION Harish Singletary DO 10/19/2014 [id number] INSPECTION OF UPPER INTESTINAL TRACT, JAMI Lomeli MD, Arturo Cannon [id number] Admission Intake Susan Beltre 12/03/2016 [id number] OFFICE/OUTPATIENT VISIT, EST Mandy Grier 12/18/2016 [id number] OFFICE/OUTPATIENT VISIT, Mandy Lundebrg 12/18/2016 [id number] SPECIAL GROUP THERAPY Nina Rivera 05/23/2017 [id number] SPECIAL GROUP THERAPY Nina Rivera 05/23/2017 H0001 [facility]AS [facility] Christina Gallegosa 11/22/2017 [id number] Admission Intake Matthew, Barbara 06/18/2018 <section xmlns="urn:hl7-org:v3" xmlns:xsi="http:// www.[employer].org/2001/XMLSchema-instance"> <templateId root= "[id number]" /> <templateId root= "[id number]" /> <code codeSystemName="LOINC" codeSystem= "[id number]" code="96661-9" displayName="Results" /> <title>Results< /title> <text> <table> <thead> <tr> <th>Test</th> <th>Result</th> <th>Range</th> </tr> </thead> < tbody> <tr> <th colspan="10">CBC W/DIFF - 01/28/12 17:20</th> </tr> <tr> <td>BASOPHIL #</td> <td>0.1 k/cumm</td > <td>0.0-0.2</td> </tr> <tr> <td>BASOPHIL % </td> <td>1 %</td> <td>0-1</td> </tr> <tr> <td>EOSINOPHIL #</td> <td>0.5 k/cumm</td> <td>0.1-0.5 </td> </tr> <tr> <td>EOSINOPHIL %</td> <td> 5 %</td> <td>2-4</td> </tr> <tr> <td> GRANULOCYTE #</td> <td>4.1 k/cumm</td> <td>2.0-9.0</td> </tr> <tr> <td>GRANULOCYTE %</td> <td>46 %</ td> <td>50-75</td> </tr> <tr> <td>LYMPHOCYTE #</ td> <td>3.4 k/cumm</td> <td>1.0-4.0</td> </tr> < tr> <td>LYMPHOCYTE %</td> <td>37 %</td> <td> 20-30</td> </tr> <tr> <td>MEAN CELL HGB</td> <td >21.2 pg</td> <td>27.0-33.0</td> </tr> <tr> <td> MEAN CELL HGB CONCENTRATION</td> <td>28.9 g/dl</td> <td>32.0- 36.0</td> </tr> <tr> <td>MEAN CELL VOLUME</td> < td>73.3 fl</td> <td>80.0-100.0</td> </tr> <tr> < td>MONOCYTE #</td> <td>1.0 k/cumm</td> <td>0.1-1.0</td> </tr> <tr> <td>MONOCYTE %</td> <td>12 %</td> <td>4-6</td> </tr> <tr> <td>OVALOCYTES</td> <td>NOTED </td> <td /> </tr> <tr> <td> RED BLOOD CELL</td> <td>3.97 m/cumm</td> <td>4.00-6.00</td> </tr> <tr> <td>RED CELL DISTRIBUTION WIDTH</td> < td>18.6 %</td> <td>11.0-15.6</td> </tr> <tr> <td>WHITE BLOOD CELL</td> <td>9.0 k/cumm</td> <td>5.0-10.0</ td> </tr> <tr> <td>HEMOGLOBIN</td> <td>8.4 gm/dL </td> <td>12.0-16.0</td> </tr> <tr> <td> HEMATOCRIT</td> <td>29.1 %</td> <td>37.0-47.0</td> </tr> <tr> <td>PLATELET COUNT</td> <td>292 k/cumm</td> <td>150-450</td> </tr> <tr> < colspan="10"> CHEM/HEM PROFILE-BEDSIDE - 01/28/12 17:22</th> </tr> <tr> <td>POTASSIUM</td> <td>3.9 mmol/L</td> <td>3.5-5.3</td> </tr> <tr> <td>METHOD</td> <td>Bedside </td> <td /> </tr> <tr> <td>ANION GAP</td> <td>15 mmol/L</td> <td>10-20</td> </tr> <tr> <td>METHOD </td> <td>Bedside </td> <td /> </tr> <tr> <td>GLUCOSE</td> <td>89 mg/dL</td> <td>70-99</td> < /tr> <tr> <td>BLOOD UREA NITROGEN</td> <td>5 mg/dL</td > <td>7-20</td> </tr> <tr> <td>CREATININE</td> <td>0.6 mg/dL</td> <td>0.6-1.0</td> </tr> <tr> <td>HEMOGLOBIN</td> <td>9.9 gm/dL</td> <td>12.0-16.0< /td> </tr> <tr> <td>HEMATOCRIT</td> <td>29.0 &# 37;</td> <td>37.0-47.0</td> </tr> <tr> <td> SODIUM</td> <td>134 mmol/L</td> <td>135-148</td> </tr> <tr> <td>CHLORIDE</td> <td>101 mmol/L</td> < td>98-110</td> </tr> <tr> <td>CARBON DIOXIDE</td> <td>23 mmol/L</td> <td>21-32</td> </tr> <tr> <td>CALCIUM IONIZED</td> <td>4.7 mg/dL</td> <td>4.5-5.3</td> </tr> <tr> <th colspan="10">UR DRUGS OF ABUSE SCREEN - 19:54</th> </tr> <tr> <td>UR AMPHETAMINES SCREEN</ td> <td>NEG (<1000 ng/mL) </td> <td>NEGATIVE</td> < /tr> <tr> <td>UR BARBITURATE SCREEN</td> <td>NEG (&lt ; 200 ng/mL) </td> <td>NEGATIVE</td> </tr> <tr> <td>DRUGS OF ABUSE SCREEN COMMENT</td> <td> </td> <td /> </tr> <tr> <td>UR OPIATES SCREEN</td> <td>POS (> 300 ng/mL) </td> <td>NEGATIVE</td> </tr> <tr> <td>UR PHENCYCLIDINE (PCP) SCREEN</td> <td>NEG (< 25 ng/mL) < /td> <td>NEGATIVE</td> </tr> <tr> <td>UR CANNABINOIDS (THC) SCREEN</td> <td>NEG (< 50 ng/mL) </td> <td>NEGATIVE</td> </tr> <tr> <td>UR COCAINE METABOLITE SCREEN</td> <td>NEG (< 300 ng/mL) </td> <td>NEGATIVE</td> </tr> <tr> <td>UR METHADONE SCREEN</td> <td> NEG (< 300 ng/mL) </td> <td>NEGATIVE</td> </tr> <tr> <td>UR BENZODIAZEPINE SCREEN</td> <td>NEG (< 200 ng/mL) < /td> <td>NEGATIVE</td> </tr> <tr> <th colspan= "10">PROLACTIN - 01/28/12 20:50</th> </tr> <tr> <td> PROLACTIN</td> <td>83.6 ng/mL</td> <td>1.8-29.2</td> </ tr> <tr> <th colspan="10">CREATINE KINASE (CK/CPK) - 01/28/12 20 :50</th> </tr> <tr> <td>CREATINE KINASE (CK/CPK)</td> <td>49 Units/L</td> <td>< 193</td> </tr> <tr> <th colspan="10">MRSA SURVEILLANCE SCREEN - 01/28/12 22:10</th> </tr> <tr> <td>ICA_MICRO</td> <td> </td> <td / > </tr> <tr> <th colspan="10">GLUCOSE (POC) - 01/29/12 00 :07</th> </tr> <tr> <td>GLUCOSE (POC)</td> <td> 81 mg/dL</td> <td>70-99</td> </tr> <tr> < colspan="10">UR TEST - 01/29/12 01:08</th> </tr> <tr> <td>UR TEST</td> <td>NEGATIVE </td> <td> NEGATIVE</td> </tr> <tr> <th colspan="10">URINALYSIS WITH MICROSCOPIC - 01/29/12 01:08</th> </tr> <tr> <td>UA LEUKOCYTE ESTERASE DIPSTICK</td> <td>TRACE </td> <td>NEGATIVE< /td> </tr> <tr> <td>UA NITRITE DIPSTICK</td> <td >NEGATIVE </td> <td>NEGATIVE</td> </tr> <tr> <td >UA PROTEIN DIPSTICK</td> <td>NEGATIVE </td> <td>NEGATIVE</td > </tr> <tr> <td>UA GLUCOSE DIPSTICK</td> <td> NEGATIVE </td> <td>NEGATIVE</td> </tr> <tr> <td> UA KETONE DIPSTICK</td> <td>NEGATIVE </td> <td>NEGATIVE</td> </tr> <tr> <td>UA UROBILINOGEN DIPSTICK</td> <td >NORMAL </td> <td>NORMAL</td> </tr> <tr> <td>UA BILIRUBIN DIPSTICK</td> <td>NEGATIVE </td> <td>NEGATIVE</td> </tr> <tr> <td>UA BLOOD DIPSTICK</td> <td> NEGATIVE </td> <td>NEGATIVE</td> </tr> <tr> <td> UA EPITHELIAL CELLS</td> <td>3+ epi/hpf</td> <td>0 - 1+</td> </tr> <tr> <td>UA MUCUS</td> <td>1+ </td> <td>NEG TO 1+</td> </tr> <tr> <td>UA RBC</td> <td>0-3 rbc/hpf</td> <td>0 - 3</td> </tr> <tr> <td>UA VOLUME FOR EXAM</td> <td>12.0 mL</td> <td>(12mL STD) </td> </tr> <tr> <td>UA WBC</td> <td>2-5 wbc/hpf </td> <td>0 - 5</td> </tr> <tr> <td>UA SPECIFIC GRAVITY</td> <td>1.007 </td> <td>1.015-1.025</td> </tr > <tr> <td>UR PH</td> <td>6.0 </td> <td>5.0- 7.0</td> </tr> <tr> < colspan="10">URINE CULTURE - 09/05 01:08</th> </tr> <tr> <td>ICA_MICRO</td> < td> </td> <td /> </tr> <tr> < colspan="10"> CBC W/DIFF - 01/29/12 04:59</th> </tr> <tr> <td>BASOPHIL #</td> <td>0.1 k/cumm</td> <td>0.0-0.2</td> </tr> <tr> <td>BASOPHIL %</td> <td>1 %</td> <td> 0-1</td> </tr> <tr> <td>EOSINOPHIL #</td> <td> 0.3 k/cumm</td> <td>0.1-0.5</td> </tr> <tr> <td> EOSINOPHIL %</td> <td>6 %</td> <td>2-4</td> </ tr> <tr> <td>GRANULOCYTE #</td> <td>2.0 k/cumm</td> <td>2.0-9.0</td> </tr> <tr> <td>GRANULOCYTE %< /td> <td>36 %</td> <td>50-75</td> </tr> <tr > <td>LYMPHOCYTE #</td> <td>2.6 k/cumm</td> <td>1.0- 4.0</td> </tr> <tr> <td>LYMPHOCYTE %</td> < td>47 %</td> <td>20-30</td> </tr> <tr> <td> MEAN CELL HGB</td> <td>22.0 pg</td> <td>27.0-33.0</td> </tr> <tr> <td>MEAN CELL HGB CONCENTRATION</td> <td> 30.7 g/dl</td> <td>32.0-36.0</td> </tr> <tr> <td >MEAN CELL VOLUME</td> <td>71.4 fl</td> <td>80.0-100.0</td> </tr> <tr> <td>MONOCYTE #</td> <td>0.6 k/cumm</td > <td>0.1-1.0</td> </tr> <tr> <td>MONOCYTE % </td> <td>11 %</td> <td>4-6</td> </tr> <tr> <td>OVALOCYTES</td> <td>NOTED </td> <td /> </ tr> <tr> <td>RED BLOOD CELL</td> <td>3.62 m/cumm</td> <td>4.00-6.00</td> </tr> <tr> <td>RED CELL DISTRIBUTION WIDTH</td> <td>20.5 %</td> <td>11.0-15.6</td > </tr> <tr> <td>WHITE BLOOD CELL</td> <td>5.6 k /cumm</td> <td>5.0-10.0</td> </tr> <tr> <td> HEMOGLOBIN</td> <td>7.9 gm/dL</td> <td>12.0-16.0</td> < /tr> <tr> <td>HEMATOCRIT</td> <td>25.9 %</td> <td>37.0-47.0</td> </tr> <tr> <td>PLATELET COUNT</td > <td>252 k/cumm</td> <td>150-450</td> </tr> <tr > <th colspan="10">RENAL FUNCTION PANEL - 01/29/12 04:59</th> </ tr> <tr> <td>POTASSIUM</td> <td>3.9 mmol/L</td> <td>3.5-5.3</td> </tr> <tr> <td>EST GFR (MDRD)</td> <td>> 60 mL/min</td> <td>> 59</td> </tr> < tr> <td>ANION GAP</td> <td>7 mmol/L</td> <td>5-15</td > </tr> <tr> <td>EST CrCl (CG)</td> <td>> 60 mL/min</td> <td>> 59</td> </tr> <tr> <td> GLUCOSE</td> <td>77 mg/dL</td> <td>70-99</td> </tr> <tr> <td>CALCIUM</td> <td>8.2 mg/dL</td> <td>8.5 -10.1</td> </tr> <tr> <td>BLOOD UREA NITROGEN</td> <td>5 mg/dL</td> <td>7-20</td> </tr> <tr> < td>CREATININE</td> <td>0.6 mg/dL</td> <td>0.6-1.0</td> </tr> <tr> <td>SODIUM</td> <td>139 mmol/L</td> <td>135-148</td> </tr> <tr> <td>CHLORIDE</td> <td>104 mmol/L</td> <td>98-110</td> </tr> <tr> < td>CARBON DIOXIDE</td> <td>28 mmol/L</td> <td>21-32</td> </tr> <tr> <td>ALBUMIN</td> <td>3.3 gm/dL</td> <td>3.4-5.0</td> </tr> <tr> <td>PHOSPHORUS</td> <td>4.2 mg/dL</td> <td>2.5-4.9</td> </tr> <tr> < colspan="10">LIPID PANEL - 01/29/12 04:59</th> </tr> <tr > <td>CHOLESTEROL/HDL RATIO</td> <td>2.2 </td> <td> & lt; 5.0</td> </tr> <tr> <td>LDL CHOLESTEROL</td> <td>78 mg/dL</td> <td>< 100</td> </tr> <tr> <td>VLDL CHOLESTEROL</td> <td>9 mg/dL</td> <td>< 30</td> </tr> <tr> <td>TRIGLYCERIDES</td> <td>47 mg/dL< /td> <td>< 150</td> </tr> <tr> <td> CHOLESTEROL</td> <td>158 mg/dL</td> <td>< 200</td> < /tr> <tr> <td>HDL CHOLESTEROL</td> <td>71 mg/dL</td> <td>> 39</td> </tr> <tr> <th colspan="10"> MAGNESIUM - 01/29/12 04:59</th> </tr> <tr> <td>MAGNESIUM< /td> <td>1.7 mg/dL</td> <td>1.8-2.4</td> </tr> < tr> < colspan="10">HEMOGLOBIN A1C - 01/29/12 04:59</th> </tr> <tr> <td>HEMOGLOBIN A1C</td> <td>5.7 %</td> <td>< 5.7</td> </tr> <tr> <th colspan="10"> GLUCOSE (POC) - 01/29/12 07:27</th> </tr> <tr> <td> GLUCOSE (POC)</td> <td>80 mg/dL</td> <td>70-99</td> </ tr> <tr> <th colspan="10">GLUCOSE (POC) - 01/29/12 11:43</th> </tr> <tr> <td>GLUCOSE (POC)</td> <td>73 mg/dL</ td> <td>70-99</td> </tr> <tr> <th colspan="10"> FOLIC ACID, RBC - 01/29/12 12:40</th> </tr> <tr> <td> FOLIC ACID, RBC</td> <td>827 ng/mL</td> <td>280-791</td> </tr> <tr> <td>FOLATE, HCT</td> <td>27.9 %</td> <td /> </tr> <tr> <th colspan="10">IRON W/ BINDING CAPACITY - 01/29/12 12:40</th> </tr> <tr> <td> IRON SATURATION</td> <td>8 % SAT</td> <td>11-46</td> </tr> <tr> <td>IRON BINDING CAPACITY, TOTAL</td> <td >414 mcg/dL</td> <td>250-450</td> </tr> <tr> <td >IRON</td> <td>32 mcg/dL</td> <td>35-150</td> </tr> <tr> <th colspan="10">FERRITIN - 01/29/12 12:40</th> </tr> <tr> <td>FERRITIN</td> <td>4 ng/mL</td> <td>8 -252</td> </tr> <tr> <th colspan="10">VITAMIN B12 - 01/28 12:40</th> </tr> <tr> <td>VITAMIN B12</td> < td>642 pg/mL</td> <td>211-911</td> </tr> <tr> < th colspan="10">THYROID STIM HORMONE (TSH) - 01/29/12 12:40</th> </tr> <tr> <td>THYROID STIM HORMONE (TSH)</td> <td>0.94 uIU/mL </td> <td>0.34-4.82</td> </tr> <tr> <th colspan= "10">TROPONIN I - 01/29/12 13:10</th> </tr> <tr> <td> TROPONIN I</td> <td>< 0.02 ng/mL</td> <td>< 0.07</td> </tr> <tr> <th colspan="10">D-DIMER QUANT - 01/29/12 15:00 </th> </tr> <tr> <td>D-DIMER QUANT</td> <td>&lt ; 150 ng/mL</td> <td>0-229</td> </tr> <tr> <th colspan="10">GLUCOSE (POC) - 01/29/12 17:39</th> </tr> <tr> <td>GLUCOSE (POC)</td> <td>66 mg/dL</td> <td>70-99</td> </tr> <tr> <th colspan="10">GLUCOSE (POC) - 01/29/12 18:26 </th> </tr> <tr> <td>GLUCOSE (POC)</td> <td>141 mg/dL</td> <td>70-99</td> </tr> <tr> <th colspan ="10">MAGNESIUM - 01/29/12 18:57</th> </tr> <tr> <td> MAGNESIUM</td> <td>2.3 mg/dL</td> <td>1.8-2.4</td> </tr > <tr> <th colspan="10">GLUCOSE (POC) - 01/30/12 03:42</th> </tr> <tr> <td>GLUCOSE (POC)</td> <td>71 mg/dL</td > <td>70-99</td> </tr> <tr> <th colspan="10"> CBC W/MANUAL DIFF - 01/30/12 04:03</th> </tr> <tr> <td> MEAN CELL HGB</td> <td>20.9 pg</td> <td>27.0-33.0</td> </tr> <tr> <td>MEAN CELL HGB CONCENTRATION</td> <td> 28.4 g/dl</td> <td>32.0-36.0</td> </tr> <tr> <td >MEAN CELL VOLUME</td> <td>73.6 fl</td> <td>80.0-100.0</td> </tr> <tr> <td>RED BLOOD CELL</td> <td>4.06 m/ cumm</td> <td>4.00-6.00</td> </tr> <tr> <td>RED CELL DISTRIBUTION WIDTH</td> <td>18.6 %</td> <td>11.0-15.6 </td> </tr> <tr> <td>WHITE BLOOD CELL</td> <td> 6.3 k/cumm</td> <td>5.0-10.0</td> </tr> <tr> <td >HEMOGLOBIN</td> <td>8.5 gm/dL</td> <td>12.0-16.0</td> </tr> <tr> <td>HEMATOCRIT</td> <td>29.9 %</td> <td>37.0-47.0</td> </tr> <tr> <td>PLATELET COUNT</ td> <td>269 k/cumm</td> <td>150-450</td> </tr> < tr> <th colspan="10">MANUAL DIFF(O) - 01/30/12 04:03</th> </tr> <tr> <td>BAND %</td> <td>1 %</td> <td >0-10</td> </tr> <tr> <td>EOSINOPHIL #</td> <td> 0.1 k/cumm</td> <td>0.1-0.5</td> </tr> <tr> <td> EOSINOPHIL %</td> <td>2 %</td> <td>2-4</td> </ tr> <tr> <td>GRANULOCYTE #</td> <td>4.0 k/cumm</td> <td>2.0-9.0</td> </tr> <tr> <td>LYMPHOCYTE #</td> <td>1.7 k/cumm</td> <td>1.0-4.0</td> </tr> <tr > <td>LYMPHOCYTE %</td> <td>27 %</td> <td>20- 30</td> </tr> <tr> <td>DIFFERENTIAL</td> <td> MANUAL </td> <td /> </tr> <tr> <td>MONOCYTE #</ td> <td>0.4 k/cumm</td> <td>0.1-1.0</td> </tr> < tr> <td>MONOCYTE %</td> <td>7 %</td> <td>4-6< /td> </tr> <tr> <td>OVALOCYTES</td> <td>NOTED </ td> <td /> </tr> <tr> <td>SEGMENTED NEUTROPHIL & #37;</td> <td>63 %</td> <td>50-70</td> </tr> <tr> < colspan="10">RENAL FUNCTION PANEL - 01/30/12 04:03</th> </tr> <tr> <td>POTASSIUM</td> <td>4.0 mmol/L</td> <td>3.5-5.3</td> </tr> <tr> <td>EST GFR (MDRD)</ td> <td>> 60 mL/min</td> <td>> 59</td> </tr> <tr> <td>ANION GAP</td> <td>6 mmol/L</td> <td>5- 15</td> </tr> <tr> <td>EST CrCl (CG)</td> <td>& gt; 60 mL/min</td> <td>> 59</td> </tr> <tr> < td>GLUCOSE</td> <td>66 mg/dL</td> <td>70-99</td> </tr> <tr> <td>CALCIUM</td> <td>8.2 mg/dL</td> <td> 8.5-10.1</td> </tr> <tr> <td>BLOOD UREA NITROGEN</td> <td>5 mg/dL</td> <td>7-20</td> </tr> <tr> <td>CREATININE</td> <td>0.7 mg/dL</td> <td>0.6-1.0</td> </tr> <tr> <td>SODIUM</td> <td>136 mmol/L</td> <td>135-148</td> </tr> <tr> <td>CHLORIDE</td> <td>103 mmol/L</td> <td>98-110</td> </tr> <tr> <td>CARBON DIOXIDE</td> <td>27 mmol/L</td> <td>21-32</td > </tr> <tr> <td>ALBUMIN</td> <td>3.3 gm/dL</td > <td>3.4-5.0</td> </tr> <tr> <td>PHOSPHORUS</td > <td>3.8 mg/dL</td> <td>2.5-4.9</td> </tr> <tr > <th colspan="10">MAGNESIUM - 01/30/12 04:03</th> </tr> <tr> <td>MAGNESIUM</td> <td>1.9 mg/dL</td> <td>1.8- 2.4</td> </tr> <tr> <th colspan="10">GLUCOSE (POC) - 10/05 06:00</th> </tr> <tr> <td>GLUCOSE (POC)</td> <td>67 mg/dL</td> <td>70-99</td> </tr> <tr> <th colspan="10">CBC W/DIFF - 03/06/12 17:15</th> </tr> <tr> <td>BASOPHIL #</td> <td>0.1 k/cumm</td> <td>0.0-0.2</td> </tr> <tr> <td>BASOPHIL %</td> <td>1 %< /td> <td>0-1</td> </tr> <tr> <td>EOSINOPHIL #</ td> <td>0.2 k/cumm</td> <td>0.1-0.5</td> </tr> < tr> <td>EOSINOPHIL %</td> <td>2 %</td> <td>2- 4</td> </tr> <tr> <td>GRANULOCYTE #</td> <td> 4.2 k/cumm</td> <td>2.0-9.0</td> </tr> <tr> <td> GRANULOCYTE %</td> <td>51 %</td> <td>50-75</td> </tr> <tr> <td>LYMPHOCYTE #</td> <td>3.2 k/cumm</td> <td>1.0-4.0</td> </tr> <tr> <td>LYMPHOCYTE &#37 ;</td> <td>39 %</td> <td>20-30</td> </tr> < tr> <td>MEAN CELL HGB</td> <td>21.2 pg</td> <td>27.0- 33.0</td> </tr> <tr> <td>MEAN CELL HGB CONCENTRATION</td > <td>29.0 g/dl</td> <td>32.0-36.0</td> </tr> < tr> <td>MEAN CELL VOLUME</td> <td>73.2 fl</td> <td> 80.0-100.0</td> </tr> <tr> <td>MONOCYTE #</td> < td>0.6 k/cumm</td> <td>0.1-1.0</td> </tr> <tr> < td>MONOCYTE %</td> <td>7 %</td> <td>4-6</td> </ tr> <tr> <td>OVALOCYTES</td> <td>NOTED </td> < td /> </tr> <tr> <td>RED BLOOD CELL</td> <td> 3.77 m/cumm</td> <td>4.00-6.00</td> </tr> <tr> < td>RED CELL DISTRIBUTION WIDTH</td> <td>18.3 %</td> <td> 11.0-15.6</td> </tr> <tr> <td>SCHISTOCYTES</td> <td>NOTED </td> <td /> </tr> <tr> <td>WHITE BLOOD CELL</td> <td>8.2 k/cumm</td> <td>5.0-10.0</td> < /tr> <tr> <td>HEMOGLOBIN</td> <td>8.0 gm/dL</td> <td>12.0-16.0</td> </tr> <tr> <td>HEMATOCRIT</td> <td>27.6 %</td> <td>37.0-47.0</td> </tr> <tr> <td>PLATELET COUNT</td> <td>247 k/cumm</td> <td>150- 450</td> </tr> <tr> <th colspan="10">PROLACTIN - 17:15</th> </tr> <tr> <td>PROLACTIN</td> <td> 87.6 ng/mL</td> <td>1.8-29.2</td> </tr> <tr> < th colspan="10">CHEM/HEM PROFILE-BEDSIDE - 03/06/12 17:21</th> </tr> <tr> <td>POTASSIUM</td> <td>3.3 mmol/L</td> <td> 3.5-5.3</td> </tr> <tr> <td>METHOD</td> <td> Bedside </td> <td /> </tr> <tr> <td>ANION GAP</ td> <td>17 mmol/L</td> <td>10-20</td> </tr> <tr > <td>METHOD</td> <td>Bedside </td> <td /> </ tr> <tr> <td>GLUCOSE</td> <td>77 mg/dL</td> < td>70-99</td> </tr> <tr> <td>BLOOD UREA NITROGEN</td> <td>7 mg/dL</td> <td>7-20</td> </tr> <tr> <td>CREATININE</td> <td>0.7 mg/dL</td> <td>0.6-1.0</td> </tr> <tr> <td>HEMOGLOBIN</td> <td>9.2 gm/dL</td> <td>12.0-16.0</td> </tr> <tr> <td>HEMATOCRIT</td > <td>27.0 %</td> <td>37.0-47.0</td> </tr> < tr> <td>SODIUM</td> <td>137 mmol/L</td> <td>135-148</ td> </tr> <tr> <td>CHLORIDE</td> <td>102 mmol/L< /td> <td>98-110</td> </tr> <tr> <td>CARBON DIOXIDE</td> <td>23 mmol/L</td> <td>21-32</td> </tr> <tr> <td>CALCIUM IONIZED</td> <td>4.5 mg/dL</td> <td>4.5-5.3</td> </tr> <tr> <th colspan="10">UR TEST - 03/06/12 17:43</th> </tr> <tr> <td>UR TEST</td> <td>NEGATIVE </td> <td>NEGATIVE</td> </tr> <tr> <th colspan="10">UR DRUGS OF ABUSE SCREEN - 17:43</th> </tr> <tr> <td>UR AMPHETAMINES SCREEN</td> <td>NEG (<1000 ng/mL) </td> <td>NEGATIVE</td> </tr > <tr> <td>UR BARBITURATE SCREEN</td> <td>NEG (< 200 ng/mL) </td> <td>NEGATIVE</td> </tr> <tr> < td>DRUGS OF ABUSE SCREEN COMMENT</td> <td> </td> <td /> </tr> <tr> <td>UR OPIATES SCREEN</td> <td>POS ( > 300 ng/mL) </td> <td>NEGATIVE</td> </tr> <tr> <td>UR PHENCYCLIDINE (PCP) SCREEN</td> <td>NEG (< 25 ng/mL) </ td> <td>NEGATIVE</td> </tr> <tr> <td>UR CANNABINOIDS (THC) SCREEN</td> <td>NEG (< 50 ng/mL) </td> <td>NEGATIVE</td> </tr> <tr> <td>UR COCAINE METABOLITE SCREEN</td> <td>NEG (< 300 ng/mL) </td> <td>NEGATIVE</td> </tr> <tr> <td>UR METHADONE SCREEN</td> <td> NEG (< 300 ng/mL) </td> <td>NEGATIVE</td> </tr> <tr> <td>UR BENZODIAZEPINE SCREEN</td> <td>POS (> 200 ng/mL) < /td> <td>NEGATIVE</td> </tr> <tr> < colspan= "10">UR TEST - 07/03/12 13:35</th> </tr> <tr> < td>UR TEST</td> <td>NEGATIVE </td> <td>NEGATIVE</td > </tr> <tr> < colspan="10">UA MICROSCOPIC - 07/03/12 13:35</th> </tr> <tr> <td>UA BACTERIA</td> <td>2 + </td> <td>NEGATIVE</td> </tr> <tr> <td>UA EPITHELIAL CELLS</td> <td>1+ epi/hpf</td> <td>0 - 1+</td> </tr> <tr> <td>UA RBC</td> <td>20-50 rbc/hpf</td> <td>0 - 3</td> </tr> <tr> <td>UA VOLUME FOR EXAM </td> <td>12.0 mL</td> <td>(12mL STD)</td> </tr> <tr> <td>UA WBC</td> <td>2-5 wbc/hpf</td> <td>0 - 5 </td> </tr> <tr> < colspan="10">CBC W/DIFF - 07/03/12 14:55</th> </tr> <tr> <td>BASOPHIL #</td> <td> 0.1 k/cumm</td> <td>0.0-0.2</td> </tr> <tr> <td> BASOPHIL %</td> <td>1 %</td> <td>0-1</td> </tr > <tr> <td>EOSINOPHIL #</td> <td>0.1 k/cumm</td> <td>0.1-0.5</td> </tr> <tr> <td>EOSINOPHIL %</td > <td>2 %</td> <td>2-4</td> </tr> <tr> <td>GRANULOCYTE #</td> <td>2.3 k/cumm</td> <td>2.0-9.0</ td> </tr> <tr> <td>GRANULOCYTE %</td> <td> 46 %</td> <td>50-75</td> </tr> <tr> <td> LYMPHOCYTE #</td> <td>2.3 k/cumm</td> <td>1.0-4.0</td> </tr> <tr> <td>LYMPHOCYTE %</td> <td>46 %</td> <td>20-30</td> </tr> <tr> <td>MEAN CELL HGB</td > <td>19.7 pg</td> <td>27.0-33.0</td> </tr> <tr > <td>MEAN CELL HGB CONCENTRATION</td> <td>28.0 g/dL</td> <td>32.0-37.0</td> </tr> <tr> <td>MEAN CELL VOLUME< /td> <td>70.5 fl</td> <td>80.0-100.0</td> </tr> <tr> <td>MONOCYTE #</td> <td>0.3 k/cumm</td> <td>0.1- 1.0</td> </tr> <tr> <td>MONOCYTE %</td> <td> 5 %</td> <td>4-6</td> </tr> <tr> <td> OVALOCYTES</td> <td>NOTED </td> <td /> </tr> <tr > <td>RED BLOOD CELL</td> <td>4.31 m/cumm</td> <td> 4.00-6.00</td> </tr> <tr> <td>RED CELL DISTRIBUTION WIDTH </td> <td>17.6 %</td> <td>11.0-15.6</td> </tr> <tr> <td>SCHISTOCYTES</td> <td>NOTED </td> <td / > </tr> <tr> <td>WHITE BLOOD CELL</td> <td>5.0 k /cumm</td> <td>5.0-10.0</td> </tr> <tr> <td> HEMOGLOBIN</td> <td>8.5 gm/dL</td> <td>12.0-16.0</td> < /tr> <tr> <td>HEMATOCRIT</td> <td>30.4 %</td> <td>37.0-47.0</td> </tr> <tr> <td>PLATELET COUNT</td > <td>348 k/cumm</td> <td>150-400</td> </tr> <tr > <th colspan="10">CHEM/HEM PROFILE-BEDSIDE - 07/03/12 15:04</th> </tr> <tr> <td>POTASSIUM</td> <td>4.0 mmol/L</td> <td>3.5-5.3</td> </tr> <tr> <td>METHOD</td> <td>Bedside </td> <td /> </tr> <tr> <td> ANION GAP</td> <td>13 mmol/L</td> <td>10-20</td> </tr> <tr> <td>METHOD</td> <td>Bedside </td> <td / > </tr> <tr> <td>GLUCOSE</td> <td>79 mg/dL</td> <td>70-99</td> </tr> <tr> <td>BLOOD UREA NITROGEN</td> <td>7 mg/dL</td> <td>7-20</td> </tr> <tr> <td>CREATININE</td> <td>0.7 mg/dL</td> <td> 0.6-1.0</td> </tr> <tr> <td>HEMOGLOBIN</td> <td> 10.2 gm/dL</td> <td>12.0-16.0</td> </tr> <tr> < td>HEMATOCRIT</td> <td>30.0 %</td> <td>37.0-47.0</td> </tr> <tr> <td>SODIUM</td> <td>142 mmol/L</td> <td>135-148</td> </tr> <tr> <td>CHLORIDE</td> <td>107 mmol/L</td> <td>98-110</td> </tr> <tr> <td>CARBON DIOXIDE</td> <td>26 mmol/L</td> <td>21-32</td > </tr> <tr> <td>CALCIUM IONIZED</td> <td>4.9 mg /dL</td> <td>4.5-5.3</td> </tr> <tr> <th colspan ="10">UR TEST - 09/07/12 22:57</th> </tr> <tr> <td>UR TEST</td> <td>NEGATIVE </td> <td>NEGATIVE</td > </tr> <tr> < colspan="10">URINALYSIS, ROUTINE - 09/07 22:57</th> </tr> <tr> <td>UA LEUKOCYTE ESTERASE DIPSTICK</td> <td>TRACE </td> <td>NEGATIVE</td> </tr> <tr> <td>UA NITRITE DIPSTICK</td> <td>NEGATIVE </td> <td>NEGATIVE</td> </tr> <tr> <td>UA PROTEIN DIPSTICK</td> <td>TRACE </td> <td>NEGATIVE</td> </tr> <tr> <td>UA GLUCOSE DIPSTICK</td> <td>NEGATIVE </td> <td>NEGATIVE</td> </tr> <tr> <td>UA KETONE DIPSTICK</td> <td>NEGATIVE </td> <td>NEGATIVE</td> </tr > <tr> <td>UA UROBILINOGEN DIPSTICK</td> <td>NORMAL </ td> <td>NORMAL</td> </tr> <tr> <td>UA BILIRUBIN DIPSTICK</td> <td>POSITIVE </td> <td>NEGATIVE</td> </tr > <tr> <td>UA BLOOD DIPSTICK</td> <td>2+ </td> <td>NEGATIVE</td> </tr> <tr> <td>UA SPECIFIC GRAVITY</ td> <td>1.020 </td> <td>1.015-1.025</td> </tr> < tr> <td>UR PH</td> <td>7.0 </td> <td>5.0-7.0</td> </tr> <tr> < colspan="10">UA MICROSCOPIC - 09/07/12 22:57 </th> </tr> <tr> <td>UA BACTERIA</td> <td>1+ </ td> <td>NEGATIVE</td> </tr> <tr> <td>UA EPITHELIAL CELLS</td> <td>4+ epi/hpf</td> <td>0 - 1+</td> </tr> <tr> <td>UA RBC</td> <td>>100 rbc/hpf</td > <td>0 - 3</td> </tr> <tr> <td>UA VOLUME FOR EXAM</td> <td>12.0 mL</td> <td>(12mL STD)</td> </tr> <tr> <td>UA WBC</td> <td>2-5 wbc/hpf</td> <td> 0 - 5</td> </tr> <tr> <th colspan="10">CBC W/DIFF - 11/06 16:00</th> </tr> <tr> <td>COMMENT</td> <td> REVIEWED </td> <td /> </tr> <tr> <td>EOSINOPHIL #</td> <td>0.1 k/cumm</td> <td>0.1-0.5</td> </tr> <tr> <td>EOSINOPHIL %</td> <td>2 %</td> < td>2-4</td> </tr> <tr> <td>GRANULOCYTE #</td> < td>2.9 k/cumm</td> <td>2.0-9.0</td> </tr> <tr> < td>GRANULOCYTE %</td> <td>44 %</td> <td>50-75</td> </tr> <tr> <td>LYMPHOCYTE #</td> <td>3.1 k/cumm</ td> <td>1.0-4.0</td> </tr> <tr> <td>LYMPHOCYTE & #37;</td> <td>47 %</td> <td>20-30</td> </tr> <tr> <td>MEAN CELL HGB</td> <td>20.2 pg</td> <td> 27.0-33.0</td> </tr> <tr> <td>MEAN CELL HGB CONCENTRATION </td> <td>28.1 g/dL</td> <td>32.0-37.0</td> </tr> <tr> <td>MEAN CELL VOLUME</td> <td>72.0 fl</td> < td>80.0-100.0</td> </tr> <tr> <td>MONOCYTE #</td> <td>0.5 k/cumm</td> <td>0.1-1.0</td> </tr> <tr> <td>MONOCYTE %</td> <td>7 %</td> <td>4-6</td> </tr> <tr> <td>OVALOCYTES</td> <td>NOTED </td> <td /> </tr> <tr> <td>RED BLOOD CELL</td> <td>3.71 m/cumm</td> <td>4.00-6.00</td> </tr> <tr> <td>RED CELL DISTRIBUTION WIDTH</td> <td>18.4 %</td> < td>11.0-15.6</td> </tr> <tr> <td>SCHISTOCYTES</td> <td>NOTED </td> <td /> </tr> <tr> <td>WHITE BLOOD CELL</td> <td>6.7 k/cumm</td> <td>5.0-10.0</td> < /tr> <tr> <td>HEMOGLOBIN</td> <td>7.5 gm/dL</td> <td>12.0-16.0</td> </tr> <tr> <td>HEMATOCRIT</td> <td>26.7 %</td> <td>37.0-47.0</td> </tr> <tr> <td>PLATELET COUNT</td> <td>296 k/cumm</td> <td>150- 400</td> </tr> <tr> <th colspan="10">PROTHROMBIN TIME WITH INR - 11/06/12 16:00</th> </tr> <tr> <td> INTERNATIONAL NORMAL RATIO</td> <td>1.0 </td> <td>0.9-1.1</td > </tr> <tr> <td>PROTHROMBIN TIME</td> <td>10.9 sec</td> <td>9.3-12.2</td> </tr> <tr> <th colspan="10">PROLACTIN - 11/06/12 16:00</th> </tr> <tr> < td>PROLACTIN</td> <td>48.8 ng/mL</td> <td>1.8-29.2</td> </tr> <tr> <th colspan="10">CHEM/HEM PROFILE-BEDSIDE - 16:03</th> </tr> <tr> <td>POTASSIUM</td> <td> 3.6 mmol/L</td> <td>3.5-5.3</td> </tr> <tr> <td> METHOD</td> <td>Bedside </td> <td /> </tr> <tr> <td>ANION GAP</td> <td>16 mmol/L</td> <td>10-20</td > </tr> <tr> <td>METHOD</td> <td>Bedside </td> <td /> </tr> <tr> <td>GLUCOSE</td> <td> 74 mg/dL</td> <td>70-99</td> </tr> <tr> <td> BLOOD UREA NITROGEN</td> <td>5 mg/dL</td> <td>7-20</td> </tr> <tr> <td>CREATININE</td> <td>0.8 mg/dL</td> <td>0.6-1.0</td> </tr> <tr> <td>HEMOGLOBIN</td> <td>8.5 gm/dL</td> <td>12.0-16.0</td> </tr> <tr> <td>HEMATOCRIT</td> <td>25.0 %</td> <td>37.0- 47.0</td> </tr> <tr> <td>SODIUM</td> <td>135 mmol/L</td> <td>135-148</td> </tr> <tr> <td> CHLORIDE</td> <td>100 mmol/L</td> <td>98-110</td> </tr > <tr> <td>CARBON DIOXIDE</td> <td>23 mmol/L</td> <td>21-32</td> </tr> <tr> <td>CALCIUM IONIZED</td> <td>4.6 mg/dL</td> <td>4.5-5.3</td> </tr> <tr> <th colspan="10">URINALYSIS, ROUTINE - 05/28/13 13:39</th> </tr > <tr> <td>UA LEUKOCYTE ESTERASE DIPSTICK</td> <td>2+ < /td> <td>NEGATIVE</td> </tr> <tr> <td>UA NITRITE DIPSTICK</td> <td>NEGATIVE </td> <td>NEGATIVE</td> </tr> <tr> <td>UA PROTEIN DIPSTICK</td> <td>TRACE </td> <td>NEGATIVE</td> </tr> <tr> <td>UA GLUCOSE DIPSTICK</td> <td>NEGATIVE </td> <td>NEGATIVE</td> </tr> <tr> <td>UA KETONE DIPSTICK</td> <td>1+ </td > <td>NEGATIVE</td> </tr> <tr> <td>UA UROBILINOGEN DIPSTICK</td> <td>2+ </td> <td>NORMAL</td> </tr> <tr> <td>UA BILIRUBIN DIPSTICK</td> <td> POSITIVE </td> <td>NEGATIVE</td> </tr> <tr> <td> UA BLOOD DIPSTICK</td> <td>2+ </td> <td>NEGATIVE</td> < /tr> <tr> <td>UA COMMENT</td> <td> </td> < td /> </tr> <tr> <td>UA SPECIFIC GRAVITY</td> < td>1.015 </td> <td>1.015-1.025</td> </tr> <tr> < td>UR PH</td> <td>6.5 </td> <td>5.0-7.0</td> </tr> <tr> <th colspan="10">UA MICROSCOPIC - 05/28/13 13:39</th> < /tr> <tr> <td>UA BACTERIA</td> <td>4+ </td> < td>NEGATIVE</td> </tr> <tr> <td>UA EPITHELIAL CELLS</td> <td>2+ epi/hpf</td> <td>0 - 1+</td> </tr> <tr> <td>UA MUCUS</td> <td>2+ </td> <td>NEG TO 1+</td> </tr> <tr> <td>UA RBC</td> <td>5-10 rbc/hpf</td> <td>0 - 3</td> </tr> <tr> <td>UA VOLUME FOR EXAM</td> <td>12.0 mL</td> <td>(12mL STD)</td> </tr> <tr> <td>UA WBC</td> <td>5-10 wbc/hpf</td> <td> 0 - 5</td> </tr> <tr> <th colspan="10">METABOLIC PANEL, BASIC - 02/21/14 02:40</th> </tr> <tr> <td>POTASSIUM</td > <td>4.2 mmol/L</td> <td>3.5-5.3</td> </tr> <tr > <td>EST GFR (MDRD)</td> <td>> 60 mL/min</td> <td >> 59</td> </tr> <tr> <td>ANION GAP</td> <td> 8 mmol/L</td> <td>5-15</td> </tr> <tr> <td>EST CrCl (CG)</td> <td>> 60 mL/min</td> <td>> 59</td> </tr> <tr> <td>GLUCOSE</td> <td>85 mg/dL</td> <td>70-99</td> </tr> <tr> <td>CALCIUM</td> < td>8.2 mg/dL</td> <td>8.5-10.1</td> </tr> <tr> < td>BLOOD UREA NITROGEN</td> <td>4 mg/dL</td> <td>7-20</td> </tr> <tr> <td>CREATININE</td> <td>0.7 mg/dL</td> <td>0.6-1.0</td> </tr> <tr> <td>SODIUM</td> <td>142 mmol/L</td> <td>135-148</td> </tr> <tr> <td>CHLORIDE</td> <td>106 mmol/L</td> <td>98-110</td> </tr> <tr> <td>CARBON DIOXIDE</td> <td>28 mmol/ L</td> <td>21-32</td> </tr> <tr> <th colspan="10 ">CBC W/DIFF - 02/21/14 02:40</th> </tr> <tr> <td> BASOPHIL #</td> <td>0.0 k/cumm</td> <td>0.0-0.2</td> </ tr> <tr> <td>BASOPHIL %</td> <td>1 %</td> <td>0-1</td> </tr> <tr> <td>EOSINOPHIL #</td> <td>0.2 k/cumm</td> <td>0.1-0.5</td> </tr> <tr> <td>EOSINOPHIL %</td> <td>3 %</td> <td>2-4</td> </tr> <tr> <td>GRANULOCYTE #</td> <td>2.2 k/cumm </td> <td>2.0-9.0</td> </tr> <tr> <td> GRANULOCYTE %</td> <td>39 %</td> <td>50-75</td> </tr> <tr> <td>LYMPHOCYTE #</td> <td>2.5 k/cumm</td> <td>1.0-4.0</td> </tr> <tr> <td>LYMPHOCYTE &#37 ;</td> <td>44 %</td> <td>20-30</td> </tr> < tr> <td>MEAN CELL HGB</td> <td>19.6 pg</td> <td>27.0- 33.0</td> </tr> <tr> <td>MEAN CELL HGB CONCENTRATION</td > <td>26.8 g/dL</td> <td>32.0-37.0</td> </tr> < tr> <td>MEAN CELL VOLUME</td> <td>73.2 fl</td> <td> 80.0-100.0</td> </tr> <tr> <td>MONOCYTE #</td> < td>0.8 k/cumm</td> <td>0.1-1.0</td> </tr> <tr> < td>MONOCYTE %</td> <td>14 %</td> <td>4-6</td> < /tr> <tr> <td>OVALOCYTES</td> <td>NOTED </td> <td /> </tr> <tr> <td>POLYCHROMASIA</td> <td> NOTED </td> <td /> </tr> <tr> <td>RED BLOOD CELL </td> <td>2.91 m/cumm</td> <td>4.00-6.00</td> </tr> <tr> <td>RED CELL DISTRIBUTION WIDTH</td> <td>18.1 %< /td> <td>11.0-15.6</td> </tr> <tr> <td>WHITE BLOOD CELL</td> <td>5.7 k/cumm</td> <td>5.0-10.0</td> < /tr> <tr> <td>HEMOGLOBIN</td> <td>5.7 gm/dL</td> <td>12.0-16.0</td> </tr> <tr> <td>HEMATOCRIT</td> <td>21.3 %</td> <td>37.0-47.0</td> </tr> <tr> <td>PLATELET COUNT</td> <td>211 k/cumm</td> <td>150- 450</td> </tr> <tr> <th colspan="10">MORPHOLOGY - 02:40</th> </tr> <tr> <td>RBC MORPH</td> <td> NOTED </td> <td /> </tr> <tr> <th colspan="10"> VIRUS RESPIRATORY SCREEN - 02/21/14 06:27</th> </tr> <tr> <td>Microbiology</td> <td> </td> <td /> </tr> <tr> <th colspan="10">BC REFLEX LACTIC ACID - 02/21/14 06:46</th> </tr> <tr> <td>LACTIC ACID</td> <td>1.8 mmol/L</td> <td>0.5-2.2</td> </tr> <tr> <th colspan="10">B- TYPE NATRIURETIC PEPTIDE - 02/21/14 06:46</th> </tr> <tr> <td>B-TYPE NATRIURETIC PEPTIDE</td> <td>88 pg/mL</td> <td>& lt; 100</td> </tr> <tr> <th colspan="10">IRON W/ BINDING CAPACITY - 02/21/14 06:46</th> </tr> <tr> <td>IRON SATURATION</td> <td>4 % SAT</td> <td>11-46</td> </ tr> <tr> <td>IRON BINDING CAPACITY, TOTAL</td> <td>380 mcg/dL</td> <td>250-450</td> </tr> <tr> <td>IRON </td> <td>14 mcg/dL</td> <td>35-150</td> </tr> < tr> <th colspan="10">FERRITIN - 02/21/14 06:46</th> </tr> <tr> <td>FERRITIN</td> <td>3 ng/mL</td> <td>8-252</ td> </tr> <tr> <th colspan="10">BLOOD CULTURE - 02/21/14 06:47</th> </tr> <tr> <td>Microbiology</td> <td > </td> <td /> </tr> <tr> <th colspan="10"> BLOOD CULTURE - 02/21/14 06:47</th> </tr> <tr> <td> Microbiology</td> <td> </td> <td /> </tr> <tr> <th colspan="10">GLUCOSE (POC) - 02/21/14 07:06</th> </tr> <tr> <td>GLUCOSE (POC)</td> <td>91 mg/dL</td> <td> 70-99</td> </tr> <tr> <th colspan="10">GLUCOSE (POC) - 10:51</th> </tr> <tr> <td>GLUCOSE (POC)</td> <td>101 mg/dL</td> <td>70-99</td> </tr> <tr> <th colspan="10">FECAL OCCULT BLOOD - 02/21/14 13:00</th> </tr> <tr> <td>Microbiology</td> <td> </td> <td /> </tr> <tr> <th colspan="10">GLUCOSE (POC) - 02/21/14 17:03</th > </tr> <tr> <td>GLUCOSE (POC)</td> <td>116 mg/ dL</td> <td>70-99</td> </tr> <tr> <th colspan= "10">GRAM STAIN SPUTUM - SPUTUM CULTURE - 02/21/14 17:55</th> </tr> <tr> <td>Microbiology</td> <td> </td> <td /> </tr> <tr> <th colspan="10">GLUCOSE (POC) - 02/21/14 20:28</ th> </tr> <tr> <td>GLUCOSE (POC)</td> <td>85 mg/ dL</td> <td>70-99</td> </tr> <tr> <th colspan= "10">GLUCOSE (POC) - 02/22/14 05:15</th> </tr> <tr> <td> GLUCOSE (POC)</td> <td>96 mg/dL</td> <td>70-99</td> </ tr> <tr> <th colspan="10">CBC W/DIFF - 02/22/14 05:45</th> </tr> <tr> <td>EOSINOPHIL #</td> <td>0.2 k/cumm</td > <td>0.1-0.5</td> </tr> <tr> <td>EOSINOPHIL &# 37;</td> <td>2 %</td> <td>2-4</td> </tr> <tr > <td>GRANULOCYTE #</td> <td>4.6 k/cumm</td> <td>2.0- 9.0</td> </tr> <tr> <td>GRANULOCYTE %</td> < td>62 %</td> <td>50-75</td> </tr> <tr> <td> LYMPHOCYTE #</td> <td>1.9 k/cumm</td> <td>1.0-4.0</td> </tr> <tr> <td>LYMPHOCYTE %</td> <td>25 %</td> <td>20-30</td> </tr> <tr> <td>MEAN CELL HGB</td > <td>20.6 pg</td> <td>27.0-33.0</td> </tr> <tr > <td>MEAN CELL HGB CONCENTRATION</td> <td>28.4 g/dL</td> <td>32.0-37.0</td> </tr> <tr> <td>MEAN CELL VOLUME< /td> <td>72.4 fl</td> <td>80.0-100.0</td> </tr> <tr> <td>MONOCYTE #</td> <td>0.8 k/cumm</td> <td>0.1- 1.0</td> </tr> <tr> <td>MONOCYTE %</td> <td> 10 %</td> <td>4-6</td> </tr> <tr> <td> OVALOCYTES</td> <td>NOTED </td> <td /> </tr> <tr > <td>POLYCHROMASIA</td> <td>NOTED </td> <td /> </tr> <tr> <td>RED BLOOD CELL</td> <td>3.55 m/cumm</ td> <td>4.00-6.00</td> </tr> <tr> <td>RED CELL DISTRIBUTION WIDTH</td> <td>19.1 %</td> <td>11.0-15.6</td > </tr> <tr> <td>WHITE BLOOD CELL</td> <td>7.5 k /cumm</td> <td>5.0-10.0</td> </tr> <tr> <td> HEMOGLOBIN</td> <td>7.3 gm/dL</td> <td>12.0-16.0</td> < /tr> <tr> <td>HEMATOCRIT</td> <td>25.7 %</td> <td>37.0-47.0</td> </tr> <tr> <td>PLATELET COUNT</td > <td>196 k/cumm</td> <td>150-400</td> </tr> <tr > <th colspan="10">HEMOGLOBIN A1C - 02/22/14 05:45</th> </tr> <tr> <td>HEMOGLOBIN A1C</td> <td>5.8 %</td> <td>< 5.7</td> </tr> <tr> <th colspan="10"> METABOLIC PANEL, COMPREHN - 02/22/14 05:45</th> </tr> <tr> <td>POTASSIUM</td> <td>4.1 mmol/L</td> <td>3.5-5.3</td> </tr> <tr> <td>EST GFR (MDRD)</td> <td>> 60 mL/ min</td> <td>> 59</td> </tr> <tr> <td>ANION GAP</td> <td>8 mmol/L</td> <td>5-15</td> </tr> < tr> <td>EST CrCl (CG)</td> <td>> 60 mL/min</td> < td>> 59</td> </tr> <tr> <td>GLUCOSE</td> <td> 84 mg/dL</td> <td>70-99</td> </tr> <tr> <td> CALCIUM</td> <td>8.1 mg/dL</td> <td>8.5-10.1</td> </tr > <tr> <td>BLOOD UREA NITROGEN</td> <td>5 mg/dL</td> <td>7-20</td> </tr> <tr> <td>CREATININE</td> <td>0.7 mg/dL</td> <td>0.6-1.0</td> </tr> <tr> <td>SODIUM</td> <td>140 mmol/L</td> <td>135-148</td> </tr> <tr> <td>CHLORIDE</td> <td>106 mmol/L</td> <td>98-110</td> </tr> <tr> <td>AST/SGOT</td> <td>20 Units/L</td> <td>10-37</td> </tr> <tr> <td>ALT/SGPT</td> <td>23 Units/L</td> <td>< 66</td> </tr> <tr> <td>CARBON DIOXIDE</td> <td>26 mmol/L </td> <td>21-32</td> </tr> <tr> <td>TOTAL PROTEIN</td> <td>6.1 gm/dL</td> <td>6.4-8.2</td> </tr> <tr> <td>ALBUMIN</td> <td>2.9 gm/dL</td> <td> 3.4-5.0</td> </tr> <tr> <td>BILI TOTAL</td> <td> 0.3 mg/dL</td> <td>0.0-1.0</td> </tr> <tr> <td> ALKALINE PHOSPHATASE TOTAL</td> <td>89 IU/L</td> <td>45-117</ td> </tr> <tr> <th colspan="10">PHOSPHORUS - 02/22/14 05: 45</th> </tr> <tr> <td>PHOSPHORUS</td> <td>3.5 mg/dL</td> <td>2.5-4.9</td> </tr> <tr> <th colspan="10">MAGNESIUM - 02/22/14 05:45</th> </tr> <tr> < td>MAGNESIUM</td> <td>1.6 mg/dL</td> <td>1.8-2.4</td> < /tr> <tr> <th colspan="10">AG STREPTOCOCCUS PNEUMONIAE - 07:30</th> </tr> <tr> <td>Microbiology</td> < td> </td> <td /> </tr> <tr> <th colspan="10"> GLUCOSE (POC) - 02/22/14 10:56</th> </tr> <tr> <td> GLUCOSE (POC)</td> <td>107 mg/dL</td> <td>70-99</td> </ tr> <tr> <th colspan="10">GLUCOSE (POC) - 02/22/14 16:53</th> </tr> <tr> <td>GLUCOSE (POC)</td> <td>143 mg/dL</ td> <td>70-99</td> </tr> <tr> <th colspan="10"> GLUCOSE (POC) - 02/22/14 20:08</th> </tr> <tr> <td> GLUCOSE (POC)</td> <td>119 mg/dL</td> <td>70-99</td> </ tr> <tr> <th colspan="10">METABOLIC PANEL, BASIC - 02/23/14 05: 01</th> </tr> <tr> <td>POTASSIUM</td> <td>4.1 mmol/L</td> <td>3.5-5.3</td> </tr> <tr> <td>EST GFR (MDRD)</td> <td>> 60 mL/min</td> <td>> 59</td> </tr> <tr> <td>ANION GAP</td> <td>6 mmol/L</td> <td>5-15</td> </tr> <tr> <td>EST CrCl (CG)</td> <td>> 60 mL/min</td> <td>> 59</td> </tr> <tr > <td>GLUCOSE</td> <td>85 mg/dL</td> <td>70-99</td> </tr> <tr> <td>CALCIUM</td> <td>8.2 mg/dL</td> <td>8.5-10.1</td> </tr> <tr> <td>BLOOD UREA NITROGEN</td> <td>7 mg/dL</td> <td>7-20</td> </tr> <tr> <td>CREATININE</td> <td>0.6 mg/dL</td> <td> 0.6-1.0</td> </tr> <tr> <td>SODIUM</td> <td>138 mmol/L</td> <td>135-148</td> </tr> <tr> <td> CHLORIDE</td> <td>102 mmol/L</td> <td>98-110</td> </tr > <tr> <td>CARBON DIOXIDE</td> <td>30 mmol/L</td> <td>21-32</td> </tr> <tr> < colspan="10"> MAGNESIUM - 02/23/14 05:01</th> </tr> <tr> <td>MAGNESIUM< /td> <td>1.7 mg/dL</td> <td>1.8-2.4</td> </tr> < tr> <th colspan="10">CBC W/DIFF - 02/23/14 05:01</th> </tr> <tr> <td>EOSINOPHIL #</td> <td>0.2 k/cumm</td> < td>0.1-0.5</td> </tr> <tr> <td>EOSINOPHIL %</td> <td>3 %</td> <td>2-4</td> </tr> <tr> < td>GRANULOCYTE #</td> <td>4.1 k/cumm</td> <td>2.0-9.0</td> </tr> <tr> <td>GRANULOCYTE %</td> <td>58 % </td> <td>50-75</td> </tr> <tr> <td>LYMPHOCYTE # </td> <td>1.9 k/cumm</td> <td>1.0-4.0</td> </tr> <tr> <td>LYMPHOCYTE %</td> <td>26 %</td> < td>20-30</td> </tr> <tr> <td>MEAN CELL HGB</td> <td>20.7 pg</td> <td>27.0-33.0</td> </tr> <tr> < td>MEAN CELL HGB CONCENTRATION</td> <td>28.8 g/dL</td> <td> 32.0-37.0</td> </tr> <tr> <td>MEAN CELL VOLUME</td> <td>71.8 fl</td> <td>80.0-100.0</td> </tr> <tr> <td>MONOCYTE #</td> <td>0.9 k/cumm</td> <td>0.1-1.0</td > </tr> <tr> <td>MONOCYTE %</td> <td>12 &#37 ;</td> <td>4-6</td> </tr> <tr> <td>OVALOCYTES</ td> <td>NOTED </td> <td /> </tr> <tr> < td>RED BLOOD CELL</td> <td>3.62 m/cumm</td> <td>4.00-6.00</td > </tr> <tr> <td>RED CELL DISTRIBUTION WIDTH</td> <td>19.7 %</td> <td>11.0-15.6</td> </tr> <tr> <td>WHITE BLOOD CELL</td> <td>7.1 k/cumm</td> <td>5.0- 10.0</td> </tr> <tr> <td>HEMOGLOBIN</td> <td> 7.5 gm/dL</td> <td>12.0-16.0</td> </tr> <tr> <td >HEMATOCRIT</td> <td>26.0 %</td> <td>37.0-47.0</td> </tr> <tr> <td>PLATELET COUNT</td> <td>205 k/cumm</td > <td>150-400</td> </tr> <tr> <th colspan="10"> GLUCOSE (POC) - 02/23/14 05:44</th> </tr> <tr> <td> GLUCOSE (POC)</td> <td>85 mg/dL</td> <td>70-99</td> </ tr> <tr> <th colspan="10">GLUCOSE (POC) - 02/23/14 11:03</th> </tr> <tr> <td>GLUCOSE (POC)</td> <td>136 mg/dL</ td> <td>70-99</td> </tr> <tr> <th colspan="10"> GLUCOSE (POC) - 02/23/14 17:05</th> </tr> <tr> <td> GLUCOSE (POC)</td> <td>124 mg/dL</td> <td>70-99</td> </ tr> <tr> <th colspan="10">GLUCOSE (POC) - 02/23/14 20:23</th> </tr> <tr> <td>GLUCOSE (POC)</td> <td>93 mg/dL</ td> <td>70-99</td> </tr> <tr> < colspan="10"> CBC W/DIFF - 02/24/14 05:03</th> </tr> <tr> <td>BASOPHIL #</td> <td>0.0 k/cumm</td> <td>0.0-0.2</td> </tr> <tr> <td>BASOPHIL %</td> <td>1 %</td> <td> 0-1</td> </tr> <tr> <td>EOSINOPHIL #</td> <td> 0.2 k/cumm</td> <td>0.1-0.5</td> </tr> <tr> <td> EOSINOPHIL %</td> <td>5 %</td> <td>2-4</td> </ tr> <tr> <td>GRANULOCYTE #</td> <td>1.7 k/cumm</td> <td>2.0-9.0</td> </tr> <tr> <td>GRANULOCYTE %< /td> <td>39 %</td> <td>50-75</td> </tr> <tr > <td>LYMPHOCYTE #</td> <td>2.1 k/cumm</td> <td>1.0- 4.0</td> </tr> <tr> <td>LYMPHOCYTE %</td> < td>46 %</td> <td>20-30</td> </tr> <tr> <td> MEAN CELL HGB</td> <td>20.9 pg</td> <td>27.0-33.0</td> </tr> <tr> <td>MEAN CELL HGB CONCENTRATION</td> <td> 28.5 g/dL</td> <td>32.0-37.0</td> </tr> <tr> <td >MEAN CELL VOLUME</td> <td>73.1 fl</td> <td>80.0-100.0</td> </tr> <tr> <td>MONOCYTE #</td> <td>0.4 k/cumm</td > <td>0.1-1.0</td> </tr> <tr> <td>MONOCYTE % </td> <td>10 %</td> <td>4-6</td> </tr> <tr> <td>OVALOCYTES</td> <td>NOTED </td> <td /> </ tr> <tr> <td>POLYCHROMASIA</td> <td>NOTED </td> <td /> </tr> <tr> <td>RED BLOOD CELL</td> <td >3.50 m/cumm</td> <td>4.00-6.00</td> </tr> <tr> <td>RED CELL DISTRIBUTION WIDTH</td> <td>20.0 %</td> <td> 11.0-15.6</td> </tr> <tr> <td>WHITE BLOOD CELL</td> <td>4.5 k/cumm</td> <td>5.0-10.0</td> </tr> <tr> <td>HEMOGLOBIN</td> <td>7.3 gm/dL</td> <td>12.0-16.0</ td> </tr> <tr> <td>HEMATOCRIT</td> <td>25.6 &#37 ;</td> <td>37.0-47.0</td> </tr> <tr> <td> PLATELET COUNT</td> <td>211 k/cumm</td> <td>150-400</td> </tr> <tr> <th colspan="10">METABOLIC PANEL, BASIC - 05:03</th> </tr> <tr> <td>POTASSIUM</td> <td> 3.9 mmol/L</td> <td>3.5-5.3</td> </tr> <tr> <td> EST GFR (MDRD)</td> <td>> 60 mL/min</td> <td>> 59</td> </tr> <tr> <td>ANION GAP</td> <td>9 mmol/L</td> <td>5-15</td> </tr> <tr> <td>EST CrCl (CG)</td > <td>> 60 mL/min</td> <td>> 59</td> </tr> <tr> <td>GLUCOSE</td> <td>110 mg/dL</td> <td>70-99< /td> </tr> <tr> <td>CALCIUM</td> <td>8.6 mg/dL</ td> <td>8.5-10.1</td> </tr> <tr> <td>BLOOD UREA NITROGEN</td> <td>9 mg/dL</td> <td>7-20</td> </tr> <tr> <td>CREATININE</td> <td>0.8 mg/dL</td> <td> 0.6-1.0</td> </tr> <tr> <td>SODIUM</td> <td>138 mmol/L</td> <td>135-148</td> </tr> <tr> <td> CHLORIDE</td> <td>101 mmol/L</td> <td>98-110</td> </tr > <tr> <td>CARBON DIOXIDE</td> <td>28 mmol/L</td> <td>21-32</td> </tr> <tr> <th colspan="10">GLUCOSE ( POC) - 02/24/14 05:57</th> </tr> <tr> <td>GLUCOSE (POC)</ td> <td>84 mg/dL</td> <td>70-99</td> </tr> <tr> <th colspan="10">GLUCOSE (POC) - 02/24/14 11:50</th> </tr> <tr> <td>GLUCOSE (POC)</td> <td>136 mg/dL</td> < td>70-99</td> </tr> <tr> <th colspan="10">GLUCOSE (POC) - 02/24/14 17:06</th> </tr> <tr> <td>GLUCOSE (POC)</td> <td>111 mg/dL</td> <td>70-99</td> </tr> <tr> <th colspan="10">GLUCOSE (POC) - 02/24/14 20:08</th> </tr> <tr> <td>GLUCOSE (POC)</td> <td>102 mg/dL</td> <td>70 -99</td> </tr> <tr> <th colspan="10">CBC W/DIFF - 05:29</th> </tr> <tr> <td>BASOPHIL #</td> <td >0.0 k/cumm</td> <td>0.0-0.2</td> </tr> <tr> <td >BASOPHIL %</td> <td>1 %</td> <td>0-1</td> </tr > <tr> <td>EOSINOPHIL #</td> <td>0.2 k/cumm</td> <td>0.1-0.5</td> </tr> <tr> <td>EOSINOPHIL %</td > <td>4 %</td> <td>2-4</td> </tr> <tr> <td>GRANULOCYTE #</td> <td>1.9 k/cumm</td> <td>2.0-9.0</ td> </tr> <tr> <td>GRANULOCYTE %</td> <td> 43 %</td> <td>50-75</td> </tr> <tr> <td> LYMPHOCYTE #</td> <td>1.9 k/cumm</td> <td>1.0-4.0</td> </tr> <tr> <td>LYMPHOCYTE %</td> <td>42 %</td> <td>20-30</td> </tr> <tr> <td>MEAN CELL HGB</td > <td>20.4 pg</td> <td>27.0-33.0</td> </tr> <tr > <td>MEAN CELL HGB CONCENTRATION</td> <td>27.9 g/dL</td> <td>32.0-37.0</td> </tr> <tr> <td>MEAN CELL VOLUME< /td> <td>73.1 fl</td> <td>80.0-100.0</td> </tr> <tr> <td>MONOCYTE #</td> <td>0.5 k/cumm</td> <td>0.1- 1.0</td> </tr> <tr> <td>MONOCYTE %</td> <td> 10 %</td> <td>4-6</td> </tr> <tr> <td> OVALOCYTES</td> <td>NOTED </td> <td /> </tr> <tr > <td>POLYCHROMASIA</td> <td>NOTED </td> <td /> </tr> <tr> <td>RED BLOOD CELL</td> <td>3.72 m/cumm</ td> <td>4.00-6.00</td> </tr> <tr> <td>RED CELL DISTRIBUTION WIDTH</td> <td>19.8 %</td> <td>11.0-15.6</td > </tr> <tr> <td>WHITE BLOOD CELL</td> <td>4.4 k /cumm</td> <td>5.0-10.0</td> </tr> <tr> <td> HEMOGLOBIN</td> <td>7.6 gm/dL</td> <td>12.0-16.0</td> < /tr> <tr> <td>HEMATOCRIT</td> <td>27.2 %</td> <td>37.0-47.0</td> </tr> <tr> <td>PLATELET COUNT</td > <td>240 k/cumm</td> <td>150-400</td> </tr> <tr > <th colspan="10">GLUCOSE (POC) - 02/25/14 05:45</th> </tr> <tr> <td>GLUCOSE (POC)</td> <td>95 mg/dL</td> < td>70-99</td> </tr> <tr> <th colspan="10">GLUCOSE (POC) - 02/25/14 11:46</th> </tr> <tr> <td>GLUCOSE (POC)</td> <td>112 mg/dL</td> <td>70-99</td> </tr> <tr> <th colspan="10">URINALYSIS, ROUTINE - 02/25/14 15:00</th> </tr> <tr> <td>UA LEUKOCYTE ESTERASE DIPSTICK</td> <td>TRACE </td> <td>NEGATIVE</td> </tr> <tr> <td>UA NITRITE DIPSTICK</td> <td>NEGATIVE </td> <td>NEGATIVE</td> </tr> <tr> <td>UA PROTEIN DIPSTICK</td> <td> NEGATIVE </td> <td>NEGATIVE</td> </tr> <tr> <td> UA GLUCOSE DIPSTICK</td> <td>NEGATIVE </td> <td>NEGATIVE</td> </tr> <tr> <td>UA KETONE DIPSTICK</td> <td> NEGATIVE </td> <td>NEGATIVE</td> </tr> <tr> <td> UA UROBILINOGEN DIPSTICK</td> <td>NORMAL </td> <td>NORMAL</td > </tr> <tr> <td>UA BILIRUBIN DIPSTICK</td> <td> NEGATIVE </td> <td>NEGATIVE</td> </tr> <tr> <td> UA BLOOD DIPSTICK</td> <td>4+ </td> <td>NEGATIVE</td> < /tr> <tr> <td>UA SPECIFIC GRAVITY</td> <td>1.011 </td> <td>1.015-1.025</td> </tr> <tr> <td>UR PH</td> <td>7.0 </td> <td>5.0-7.0</td> </tr> <tr> <th colspan="10">UA MICROSCOPIC - 02/25/14 15:00</th> </tr> < tr> <td>UA EPITHELIAL CELLS</td> <td>2+ epi/hpf</td> <td>0 - 1+</td> </tr> <tr> <td>UA MUCUS</td> <td >1+ </td> <td>NEG TO 1+</td> </tr> <tr> <td>UA RBC</td> <td>PACKED FIELD rbc/hpf</td> <td>0 - 3</td> < /tr> <tr> <td>UA VOLUME FOR EXAM</td> <td>12.0 mL</td> <td>(12mL STD)</td> </tr> <tr> <td>UA WBC</td> <td>0-1 wbc/hpf</td> <td>0 - 5</td> </tr> <tr> < colspan="10">GLUCOSE (POC) - 02/25/14 17:01</th> </tr> <tr> <td>GLUCOSE (POC)</td> <td>102 mg/dL</td> < td>70-99</td> </tr> <tr> <th colspan="10">GLUCOSE (POC) - 02/25/14 20:23</th> </tr> <tr> <td>GLUCOSE (POC)</td> <td>84 mg/dL</td> <td>70-99</td> </tr> <tr> <th colspan="10">GLUCOSE (POC) - 02/26/14 05:41</th> </tr> < tr> <td>GLUCOSE (POC)</td> <td>73 mg/dL</td> <td>70- 99</td> </tr> <tr> <th colspan="10">GLUCOSE (POC) - 02/26 11:32</th> </tr> <tr> <td>GLUCOSE (POC)</td> <td>353 mg/dL</td> <td>70-99</td> </tr> <tr> < th colspan="10">GLUCOSE (POC) - 02/26/14 11:34</th> </tr> <tr> <td>GLUCOSE (POC)</td> <td>82 mg/dL</td> <td>70-99</td > </tr> <tr> <th colspan="10">URINALYSIS, ROUTINE - 04/14 16:25</th> </tr> <tr> <td>UA LEUKOCYTE ESTERASE DIPSTICK</td> <td>NEGATIVE </td> <td>NEGATIVE</td> </tr > <tr> <td>UA NITRITE DIPSTICK</td> <td>NEGATIVE </td> <td>NEGATIVE</td> </tr> <tr> <td>UA PROTEIN DIPSTICK</td> <td>NEGATIVE </td> <td>NEGATIVE</td> </tr > <tr> <td>UA GLUCOSE DIPSTICK</td> <td>NEGATIVE </td> <td>NEGATIVE</td> </tr> <tr> <td>UA KETONE DIPSTICK</td> <td>NEGATIVE </td> <td>NEGATIVE</td> </tr > <tr> <td>UA UROBILINOGEN DIPSTICK</td> <td>NORMAL </ td> <td>NORMAL</td> </tr> <tr> <td>UA BILIRUBIN DIPSTICK</td> <td>NEGATIVE </td> <td>NEGATIVE</td> </tr > <tr> <td>UA BLOOD DIPSTICK</td> <td>2+ </td> <td>NEGATIVE</td> </tr> <tr> <td>UA COMMENT</td> <td> </td> <td /> </tr> <tr> <td>UA SPECIFIC GRAVITY</td> <td>1.001 </td> <td>1.015-1.025</td> </tr> <tr> <td>UR PH</td> <td>7.0 </td> < td>5.0-7.0</td> </tr> <tr> < colspan="10">UR TEST - 04/14/14 16:25</th> </tr> <tr> <td>UR TEST</td> <td>NEGATIVE </td> <td>NEGATIVE</td> </tr> <tr> < colspan="10">UA MICROSCOPIC - 04/14/14 16:25</th> </tr> <tr> <td>UA EPITHELIAL CELLS</td> <td>3+ epi/ hpf</td> <td>0 - 1+</td> </tr> <tr> <td>UA MUCUS </td> <td>2+ </td> <td>NEG TO 1+</td> </tr> <tr > <td>UA RBC</td> <td>0-3 rbc/hpf</td> <td>0 - 3</td > </tr> <tr> <td>UA VOLUME FOR EXAM</td> <td> 12.0 mL</td> <td>(12mL STD)</td> </tr> <tr> <td> UA WBC</td> <td>0-1 wbc/hpf</td> <td>0 - 5</td> </tr> <tr> < colspan="10">CBC W/DIFF - 04/14/14 16:36</th> </ tr> <tr> <td>BASOPHIL #</td> <td>0.0 k/cumm</td> <td>0.0-0.2</td> </tr> <tr> <td>BASOPHIL %</td> <td>1 %</td> <td>0-1</td> </tr> <tr> <td>EOSINOPHIL #</td> <td>0.2 k/cumm</td> <td>0.1-0.5</td> </tr> <tr> <td>EOSINOPHIL %</td> <td>2 &#37 ;</td> <td>2-4</td> </tr> <tr> <td>GRANULOCYTE # </td> <td>4.3 k/cumm</td> <td>2.0-9.0</td> </tr> <tr> <td>GRANULOCYTE %</td> <td>57 %</td> < td>50-75</td> </tr> <tr> <td>LYMPHOCYTE #</td> < td>2.3 k/cumm</td> <td>1.0-4.0</td> </tr> <tr> < td>LYMPHOCYTE %</td> <td>30 %</td> <td>20-30</td> </tr> <tr> <td>MEAN CELL HGB</td> <td>19.8 pg</td> <td>27.0-33.0</td> </tr> <tr> <td>MEAN CELL HGB CONCENTRATION</td> <td>26.3 g/dL</td> <td>32.0-37.0</td> </tr> <tr> <td>MEAN CELL VOLUME</td> <td>75.3 fl </td> <td>80.0-100.0</td> </tr> <tr> <td> MONOCYTE #</td> <td>0.8 k/cumm</td> <td>0.1-1.0</td> </ tr> <tr> <td>MONOCYTE %</td> <td>11 %</td> <td>4-6</td> </tr> <tr> <td>OVALOCYTES</td> <td>NOTED </td> <td /> </tr> <tr> <td>RED BLOOD CELL</td> <td>3.69 m/cumm</td> <td>4.00-6.00</td> </tr> <tr> <td>RED CELL DISTRIBUTION WIDTH</td> <td> 18.3 %</td> <td>11.0-15.6</td> </tr> <tr> < td>WHITE BLOOD CELL</td> <td>7.6 k/cumm</td> <td>5.0-10.0</td > </tr> <tr> <td>HEMOGLOBIN</td> <td>7.3 gm/dL</ td> <td>12.0-16.0</td> </tr> <tr> <td>HEMATOCRIT </td> <td>27.8 %</td> <td>37.0-47.0</td> </tr> <tr> <td>PLATELET COUNT</td> <td>268 k/cumm</td> <td>150-400</td> </tr> <tr> <th colspan="10">CHEM/HEM PROFILE-BEDSIDE - 04/14/14 16:38</th> </tr> <tr> <td> POTASSIUM</td> <td>3.3 mmol/L</td> <td>3.5-5.3</td> </ tr> <tr> <td>METHOD</td> <td>Bedside </td> < td /> </tr> <tr> <td>ANION GAP</td> <td>19 mmol/ L</td> <td>10-20</td> </tr> <tr> <td>METHOD</td > <td>Bedside </td> <td /> </tr> <tr> < td>GLUCOSE</td> <td>86 mg/dL</td> <td>70-99</td> </tr> <tr> <td>BLOOD UREA NITROGEN</td> <td>< 3 mg/dL</td > <td>7-20</td> </tr> <tr> <td>CREATININE</td> <td>0.7 mg/dL</td> <td>0.6-1.0</td> </tr> <tr> <td>HEMOGLOBIN</td> <td>8.5 gm/dL</td> <td>12.0-16.0< /td> </tr> <tr> <td>HEMATOCRIT</td> <td>25.0 &# 37;</td> <td>37.0-47.0</td> </tr> <tr> <td> SODIUM</td> <td>142 mmol/L</td> <td>135-148</td> </tr> <tr> <td>CHLORIDE</td> <td>104 mmol/L</td> < td>98-110</td> </tr> <tr> <td>CARBON DIOXIDE</td> <td>24 mmol/L</td> <td>21-32</td> </tr> <tr> <td>CALCIUM IONIZED</td> <td>5.0 mg/dL</td> <td>4.5-5.3</td> </tr> <tr> < colspan="10">CBC W/DIFF - 10/18/14 20:05</ th> </tr> <tr> <td>BASOPHIL #</td> <td>0.1 k/ cumm</td> <td>0.0-0.2</td> </tr> <tr> <td> BASOPHIL %</td> <td>1 %</td> <td>0-1</td> </tr > <tr> <td>COMMENT</td> <td>REVIEWED </td> < td /> </tr> <tr> <td>EOSINOPHIL #</td> <td>0.2 k /cumm</td> <td>0.1-0.5</td> </tr> <tr> <td> EOSINOPHIL %</td> <td>2 %</td> <td>2-4</td> </ tr> <tr> <td>GRANULOCYTE #</td> <td>3.7 k/cumm</td> <td>2.0-9.0</td> </tr> <tr> <td>GRANULOCYTE %< /td> <td>50 %</td> <td>50-75</td> </tr> <tr > <td>LYMPHOCYTE #</td> <td>2.8 k/cumm</td> <td>1.0- 4.0</td> </tr> <tr> <td>LYMPHOCYTE %</td> < td>38 %</td> <td>20-30</td> </tr> <tr> <td> MEAN CELL HGB</td> <td>17.5 pg</td> <td>27.0-33.0</td> </tr> <tr> <td>MEAN CELL HGB CONCENTRATION</td> <td> 27.3 g/dL</td> <td>32.0-37.0</td> </tr> <tr> <td >MEAN CELL VOLUME</td> <td>64.0 fl</td> <td>80.0-100.0</td> </tr> <tr> <td>MONOCYTE #</td> <td>0.7 k/cumm</td > <td>0.1-1.0</td> </tr> <tr> <td>MONOCYTE % </td> <td>9 %</td> <td>4-6</td> </tr> <tr> <td>OVALOCYTES</td> <td>NOTED </td> <td /> </ tr> <tr> <td>RED BLOOD CELL</td> <td>3.89 m/cumm</td> <td>4.00-6.00</td> </tr> <tr> <td>RED CELL DISTRIBUTION WIDTH</td> <td>20.2 %</td> <td>11.0-15.6</td > </tr> <tr> <td>WHITE BLOOD CELL</td> <td>7.4 k /cumm</td> <td>5.0-10.0</td> </tr> <tr> <td> HEMOGLOBIN</td> <td>6.8 gm/dL</td> <td>12.0-16.0</td> < /tr> <tr> <td>HEMATOCRIT</td> <td>24.9 %</td> <td>37.0-47.0</td> </tr> <tr> <td>PLATELET COUNT</td > <td>311 k/cumm</td> <td>150-400</td> </tr> <tr > <th colspan="10">HEPATIC FUNCTION PANEL - 10/18/14 20:05</th> </tr> <tr> <td>BILI UNCONJUGATED</td> <td>0.1 mg/dL</td > <td>0.0-0.7</td> </tr> <tr> <td>AST/SGOT</td> <td>69 Units/L</td> <td>10-37</td> </tr> <tr> <td>ALT/SGPT</td> <td>45 Units/L</td> <td>< 66</td > </tr> <tr> <td>TOTAL PROTEIN</td> <td>7.1 gm/ dL</td> <td>6.4-8.2</td> </tr> <tr> <td>ALBUMIN< /td> <td>3.4 gm/dL</td> <td>3.4-5.0</td> </tr> < tr> <td>BILI TOTAL</td> <td>0.2 mg/dL</td> <td>0.0- 1.0</td> </tr> <tr> <td>ALKALINE PHOSPHATASE TOTAL</td> <td>91 IU/L</td> <td>45-117</td> </tr> <tr> <td>BILI CONJUGATED</td> <td>< 0.1 mg/dL</td> <td>0.0 -0.3</td> </tr> <tr> <th colspan="10">CHEM/HEM PROFILE- BEDSIDE - 10/18/14 20:20</th> </tr> <tr> <td>POTASSIUM</ td> <td>4.1 mmol/L</td> <td>3.5-5.3</td> </tr> < tr> <td>METHOD</td> <td>Bedside </td> <td /> < /tr> <tr> <td>ANION GAP</td> <td>18 mmol/L</td> <td>10-20</td> </tr> <tr> <td>METHOD</td> <td >Bedside </td> <td /> </tr> <tr> <td>GLUCOSE</td > <td>110 mg/dL</td> <td>70-99</td> </tr> <tr> <td>BLOOD UREA NITROGEN</td> <td>15 mg/dL</td> <td>7- 20</td> </tr> <tr> <td>CREATININE</td> <td>0.8 mg/dL</td> <td>0.6-1.0</td> </tr> <tr> <td> HEMOGLOBIN</td> <td>8.2 gm/dL</td> <td>12.0-16.0</td> < /tr> <tr> <td>HEMATOCRIT</td> <td>24.0 %</td> <td>37.0-47.0</td> </tr> <tr> <td>SODIUM</td> <td>139 mmol/L</td> <td>135-148</td> </tr> <tr> <td>CHLORIDE</td> <td>101 mmol/L</td> <td>98-110</td> </tr> <tr> <td>CARBON DIOXIDE</td> <td>26 mmol/L</ td> <td>21-32</td> </tr> <tr> <td>CALCIUM IONIZED</td> <td>4.7 mg/dL</td> <td>4.5-5.3</td> </tr> <tr> <th colspan="10">TROPONIN I BEDSIDE - 10/18/14 20:21</th> </tr> <tr> <td>METHOD</td> <td>Bedside </td> <td /> </tr> <tr> <td>TROPONIN I</td> < td>< 0.04 ng/mL</td> <td>< 0.11</td> </tr> <tr> <th colspan="10">IRON W/ BINDING CAPACITY - 10/18/14 23:21</th> </ tr> <tr> <td>IRON SATURATION</td> <td>2 % SAT</td> <td>11-46</td> </tr> <tr> <td>IRON BINDING CAPACITY, TOTAL</td> <td>477 mcg/dL</td> <td>250-450</td> </tr> <tr> <td>IRON</td> <td>11 mcg/dL</td> <td>35-150</td> </tr> <tr> <th colspan="10">LIPASE - 10/18/14 23:21</th> </tr> <tr> <td>LIPASE</td> < td>87 Units/L</td> <td>73-393</td> </tr> <tr> < th colspan="10">FERRITIN - 10/18/14 23:21</th> </tr> <tr> <td>FERRITIN</td> <td>1 ng/mL</td> <td>8-252</td> </ tr> <tr> <th colspan="10">PHENYTOIN (DILANTIN) - 10/18/14 23:21< /th> </tr> <tr> <td>PHENYTOIN (DILANTIN)</td> < td>3.5 mcg/mL</td> <td>10.0-20.0</td> </tr> <tr> <th colspan="10">THYROID STIM HORMONE (TSH) - 10/18/14 23:21</th> </tr > <tr> <td>THYROID STIM HORMONE (TSH)</td> <td>4.81 uIU /mL</td> <td>0.34-4.82</td> </tr> <tr> <th colspan="10">HEMOGLOBIN A1C - 10/18/14 23:21</th> </tr> <tr> <td>HEMOGLOBIN A1C</td> <td>5.9 %</td> <td>< 5.7</ td> </tr> <tr> <th colspan="10">CBC W/DIFF - 10/19/14 07: 35</th> </tr> <tr> <td>BASOPHIL #</td> <td>0.1 k /cumm</td> <td>0.0-0.2</td> </tr> <tr> <td> BASOPHIL %</td> <td>2 %</td> <td>0-1</td> </tr > <tr> <td>EOSINOPHIL #</td> <td>0.2 k/cumm</td> <td>0.1-0.5</td> </tr> <tr> <td>EOSINOPHIL %</td > <td>2 %</td> <td>2-4</td> </tr> <tr> <td>GRANULOCYTE #</td> <td>3.4 k/cumm</td> <td>2.0-9.0</ td> </tr> <tr> <td>GRANULOCYTE %</td> <td> 51 %</td> <td>50-75</td> </tr> <tr> <td> LYMPHOCYTE #</td> <td>2.6 k/cumm</td> <td>1.0-4.0</td> </tr> <tr> <td>LYMPHOCYTE %</td> <td>38 %</td> <td>20-30</td> </tr> <tr> <td>MEAN CELL HGB</td > <td>19.5 pg</td> <td>27.0-33.0</td> </tr> <tr > <td>MEAN CELL HGB CONCENTRATION</td> <td>29.0 g/dL</td> <td>32.0-37.0</td> </tr> <tr> <td>MEAN CELL VOLUME< /td> <td>67.3 fl</td> <td>80.0-100.0</td> </tr> <tr> <td>MONOCYTE #</td> <td>0.5 k/cumm</td> <td>0.1- 1.0</td> </tr> <tr> <td>MONOCYTE %</td> <td> 8 %</td> <td>4-6</td> </tr> <tr> <td> OVALOCYTES</td> <td>NOTED </td> <td /> </tr> <tr > <td>RED BLOOD CELL</td> <td>4.46 m/cumm</td> <td> 4.00-6.00</td> </tr> <tr> <td>RED CELL DISTRIBUTION WIDTH </td> <td>23.1 %</td> <td>11.0-15.6</td> </tr> <tr> <td>WHITE BLOOD CELL</td> <td>6.8 k/cumm</td> <td>5.0-10.0</td> </tr> <tr> <td>HEMOGLOBIN</td> <td>8.7 gm/dL</td> <td>12.0-16.0</td> </tr> <tr> <td>HEMATOCRIT</td> <td>30.0 %</td> <td>37.0-47.0</ td> </tr> <tr> <td>PLATELET COUNT</td> <td>289 k /cumm</td> <td>150-400</td> </tr> <tr> <th colspan="10">MORPHOLOGY - 10/19/14 07:35</th> </tr> <tr> <td>RBC MORPH</td> <td>NOTED </td> <td /> </tr> <tr> <th colspan="10">RENAL FUNCTION PANEL - 10/19/14 07:35</th> </tr> <tr> <td>POTASSIUM</td> <td>4.3 mmol/L</td> <td>3.5-5.3</td> </tr> <tr> <td>EST GFR (MDRD)</td > <td>> 60 mL/min</td> <td>> 59</td> </tr> <tr> <td>ANION GAP</td> <td>8 mmol/L</td> <td>5-15< /td> </tr> <tr> <td>EST CrCl (CG)</td> <td>> 60 mL/min</td> <td>> 59</td> </tr> <tr> <td> GLUCOSE</td> <td>84 mg/dL</td> <td>70-99</td> </tr> <tr> <td>CALCIUM</td> <td>8.4 mg/dL</td> <td>8.5 -10.1</td> </tr> <tr> <td>BLOOD UREA NITROGEN</td> <td>15 mg/dL</td> <td>7-20</td> </tr> <tr> < td>CREATININE</td> <td>0.8 mg/dL</td> <td>0.6-1.0</td> </tr> <tr> <td>SODIUM</td> <td>140 mmol/L</td> <td>135-148</td> </tr> <tr> <td>CHLORIDE</td> <td>104 mmol/L</td> <td>98-110</td> </tr> <tr> < td>CARBON DIOXIDE</td> <td>28 mmol/L</td> <td>21-32</td> </tr> <tr> <td>ALBUMIN</td> <td>3.2 gm/dL</td> <td>3.4-5.0</td> </tr> <tr> <td>PHOSPHORUS</td> <td>4.4 mg/dL</td> <td>2.5-4.9</td> </tr> <tr> <th colspan="10">LIPID PANEL - 10/19/14 07:35</th> </tr> <tr > <td>CHOLESTEROL/HDL RATIO</td> <td>2.4 </td> <td> & lt; 5.0</td> </tr> <tr> <td>LDL CHOLESTEROL</td> <td>83 mg/dL</td> <td>< 100</td> </tr> <tr> <td>VLDL CHOLESTEROL</td> <td>22 mg/dL</td> <td>< 30</td > </tr> <tr> <td>TRIGLYCERIDES</td> <td>111 mg/ dL</td> <td>< 150</td> </tr> <tr> <td> CHOLESTEROL</td> <td>182 mg/dL</td> <td>< 200</td> < /tr> <tr> <td>HDL CHOLESTEROL</td> <td>77 mg/dL</td> <td>> 39</td> </tr> <tr> <th colspan="10"> MAGNESIUM - 10/19/14 07:35</th> </tr> <tr> <td>MAGNESIUM< /td> <td>2.0 mg/dL</td> <td>1.8-2.4</td> </tr> < tr> <th colspan="10">TROPONIN I - 10/19/14 07:35</th> </tr> <tr> <td>TROPONIN I</td> <td>< 0.02 ng/mL</td> <td>< 0.07</td> </tr> <tr> <th colspan="10">CBC W/ DIFF - 10/20/14 03:27</th> </tr> <tr> <td>BASOPHIL #</td > <td>0.1 k/cumm</td> <td>0.0-0.2</td> </tr> <tr > <td>BASOPHIL %</td> <td>2 %</td> <td>0-1</ td> </tr> <tr> <td>EOSINOPHIL #</td> <td>0.1 k/ cumm</td> <td>0.1-0.5</td> </tr> <tr> <td> EOSINOPHIL %</td> <td>1 %</td> <td>2-4</td> </ tr> <tr> <td>GRANULOCYTE #</td> <td>4.7 k/cumm</td> <td>2.0-9.0</td> </tr> <tr> <td>GRANULOCYTE %< /td> <td>62 %</td> <td>50-75</td> </tr> <tr > <td>LYMPHOCYTE #</td> <td>2.0 k/cumm</td> <td>1.0- 4.0</td> </tr> <tr> <td>LYMPHOCYTE %</td> < td>27 %</td> <td>20-30</td> </tr> <tr> <td> MEAN CELL HGB</td> <td>19.6 pg</td> <td>27.0-33.0</td> </tr> <tr> <td>MEAN CELL HGB CONCENTRATION</td> <td> 29.0 g/dL</td> <td>32.0-37.0</td> </tr> <tr> <td >MEAN CELL VOLUME</td> <td>67.7 fl</td> <td>80.0-100.0</td> </tr> <tr> <td>MONOCYTE #</td> <td>0.6 k/cumm</td > <td>0.1-1.0</td> </tr> <tr> <td>MONOCYTE % </td> <td>8 %</td> <td>4-6</td> </tr> <tr> <td>OVALOCYTES</td> <td>NOTED </td> <td /> </ tr> <tr> <td>RED BLOOD CELL</td> <td>4.33 m/cumm</td> <td>4.00-6.00</td> </tr> <tr> <td>RED CELL DISTRIBUTION WIDTH</td> <td>22.9 %</td> <td>11.0-15.6</td > </tr> <tr> <td>SPHEROCYTES</td> <td>NOTED </td > <td /> </tr> <tr> <td>WHITE BLOOD CELL</td> <td>7.6 k/cumm</td> <td>5.0-10.0</td> </tr> <tr> <td>HEMOGLOBIN</td> <td>8.5 gm/dL</td> <td>12.0-16.0 </td> </tr> <tr> <td>HEMATOCRIT</td> <td>29.3 &# 37;</td> <td>37.0-47.0</td> </tr> <tr> <td> PLATELET COUNT</td> <td>298 k/cumm</td> <td>150-400</td> </tr> <tr> <th colspan="10">RENAL FUNCTION PANEL - 10/20/14 03:27</th> </tr> <tr> <td>POTASSIUM</td> <td> 3.8 mmol/L</td> <td>3.5-5.3</td> </tr> <tr> <td> EST GFR (MDRD)</td> <td>> 60 mL/min</td> <td>> 59</td> </tr> <tr> <td>ANION GAP</td> <td>9 mmol/L</td> <td>5-15</td> </tr> <tr> <td>EST CrCl (CG)</td > <td>> 60 mL/min</td> <td>> 59</td> </tr> <tr> <td>GLUCOSE</td> <td>83 mg/dL</td> <td>70-99</ td> </tr> <tr> <td>CALCIUM</td> <td>8.4 mg/dL</ td> <td>8.5-10.1</td> </tr> <tr> <td>BLOOD UREA NITROGEN</td> <td>9 mg/dL</td> <td>7-20</td> </tr> <tr> <td>CREATININE</td> <td>0.7 mg/dL</td> <td> 0.6-1.0</td> </tr> <tr> <td>SODIUM</td> <td>140 mmol/L</td> <td>135-148</td> </tr> <tr> <td> CHLORIDE</td> <td>104 mmol/L</td> <td>98-110</td> </tr > <tr> <td>CARBON DIOXIDE</td> <td>27 mmol/L</td> <td>21-32</td> </tr> <tr> <td>ALBUMIN</td> <td>3.2 gm/dL</td> <td>3.4-5.0</td> </tr> <tr> < td>PHOSPHORUS</td> <td>3.6 mg/dL</td> <td>2.5-4.9</td> </tr> <tr> < colspan="10">MAGNESIUM - 10/20/14 03:27</th> </tr> <tr> <td>MAGNESIUM</td> <td>2.1 mg/dL</td> <td>1.8-2.4</td> </tr> <tr> <th colspan="10">CBC - 01/30/15 20:20</th> </tr> <tr> <td>MEAN CELL HGB</td> <td>28.1 pg</td> <td>27.0-33.0</td> </tr> <tr> <td>MEAN CELL HGB CONCENTRATION</td> <td>31.7 g/dL</td> <td>32.0-37.0</td> </tr> <tr> <td>MEAN CELL VOLUME</ td> <td>88.5 fl</td> <td>80.0-100.0</td> </tr> < tr> <td>RED BLOOD CELL</td> <td>4.42 m/cumm</td> <td> 4.00-6.00</td> </tr> <tr> <td>RED CELL DISTRIBUTION WIDTH </td> <td>13.4 %</td> <td>11.0-15.6</td> </tr> <tr> <td>WHITE BLOOD CELL</td> <td>6.8 k/cumm</td> <td>5.0-10.0</td> </tr> <tr> <td>HEMOGLOBIN</td> <td>12.4 gm/dL</td> <td>12.0-16.0</td> </tr> <tr> <td>HEMATOCRIT</td> <td>39.1 %</td> <td>37.0-47.0< /td> </tr> <tr> <td>PLATELET COUNT</td> <td>264 k/cumm</td> <td>150-400</td> </tr> <tr> <td> Microbiology</td> <td> </td> <td /> </tr> <tr> < colspan="10">HEPATIC FUNCTION PANEL - 01/30/15 20:20</th> </ tr> <tr> <td>BILI UNCONJUGATED</td> <td>0.0 mg/dL</td> <td>0.0-0.7</td> </tr> <tr> <td>AST/SGOT</td> <td>14 Units/L</td> <td>10-37</td> </tr> <tr> <td>ALT/SGPT</td> <td>16 Units/L</td> <td>< 66</td > </tr> <tr> <td>TOTAL PROTEIN</td> <td>7.1 gm/ dL</td> <td>6.4-8.2</td> </tr> <tr> <td>ALBUMIN< /td> <td>3.6 gm/dL</td> <td>3.4-5.0</td> </tr> < tr> <td>BILI TOTAL</td> <td>0.1 mg/dL</td> <td>0.0- 1.0</td> </tr> <tr> <td>ALKALINE PHOSPHATASE TOTAL</td> <td>74 IU/L</td> <td>45-117</td> </tr> <tr> <td>BILI CONJUGATED</td> <td>0.1 mg/dL</td> <td>0.0-0.3< /td> </tr> <tr> <td>Microbiology</td> <td> </td > <td /> </tr> <tr> <th colspan="10">LIPASE - 20:20</th> </tr> <tr> <td>LIPASE</td> <td >203 Units/L</td> <td>73-393</td> </tr> <tr> < th colspan="10">CHEM/HEM PROFILE-BEDSIDE - 01/30/15 20:31</th> </tr> <tr> <td>POTASSIUM</td> <td>3.6 mmol/L</td> <td> 3.5-5.3</td> </tr> <tr> <td>METHOD</td> <td> Bedside </td> <td /> </tr> <tr> <td>ANION GAP</ td> <td>17 mmol/L</td> <td>10-20</td> </tr> <tr > <td>METHOD</td> <td>Bedside </td> <td /> </ tr> <tr> <td>GLUCOSE</td> <td>103 mg/dL</td> < td>70-99</td> </tr> <tr> <td>BLOOD UREA NITROGEN</td> <td>4 mg/dL</td> <td>7-20</td> </tr> <tr> <td>CREATININE</td> <td>0.5 mg/dL</td> <td>0.6-1.0</td> </tr> <tr> <td>HEMOGLOBIN</td> <td>13.3 gm/dL</td> <td>12.0-16.0</td> </tr> <tr> <td>HEMATOCRIT</ td> <td>39.0 %</td> <td>37.0-47.0</td> </tr> <tr> <td>SODIUM</td> <td>141 mmol/L</td> <td>135- 148</td> </tr> <tr> <td>CHLORIDE</td> <td>103 mmol/L</td> <td>98-110</td> </tr> <tr> <td> CARBON DIOXIDE</td> <td>26 mmol/L</td> <td>21-32</td> < /tr> <tr> <td>CALCIUM IONIZED</td> <td>4.6 mg/dL</td> <td>4.5-5.3</td> </tr> <tr> <td>Microbiology</td > <td> </td> <td /> </tr> <tr> < colspan="10">URINALYSIS, ROUTINE - 01/30/15 20:34</th> </tr> <tr> <td>UA LEUKOCYTE ESTERASE DIPSTICK</td> <td>1+ </td> <td>NEGATIVE</td> </tr> <tr> <td>UA NITRITE DIPSTICK</ td> <td>NEGATIVE </td> <td>NEGATIVE</td> </tr> < tr> <td>UA PROTEIN DIPSTICK</td> <td>NEGATIVE </td> < td>NEGATIVE</td> </tr> <tr> <td>UA GLUCOSE DIPSTICK</td> <td>NEGATIVE </td> <td>NEGATIVE</td> </tr> <tr > <td>UA KETONE DIPSTICK</td> <td>NEGATIVE </td> <td> NEGATIVE</td> </tr> <tr> <td>UA UROBILINOGEN DIPSTICK</td > <td>NORMAL </td> <td>NORMAL</td> </tr> <tr> <td>UA BILIRUBIN DIPSTICK</td> <td>NEGATIVE </td> <td> NEGATIVE</td> </tr> <tr> <td>UA BLOOD DIPSTICK</td> <td>3+ </td> <td>NEGATIVE</td> </tr> <tr> < td>UA SPECIFIC GRAVITY</td> <td>1.020 </td> <td>1.015-1.025</ td> </tr> <tr> <td>UR PH</td> <td>7.0 </td> <td>5.0-7.0</td> </tr> <tr> <td>Microbiology</td> <td> </td> <td /> </tr> <tr> <th colspan="10">UA MICROSCOPIC - 01/30/15 20:34</th> </tr> <tr> <td>UA BACTERIA</td> <td>5+ </td> <td>NEGATIVE</td> </tr> <tr> <td>UA EPITHELIAL CELLS</td> <td>3+ epi/ hpf</td> <td>0 - 1+</td> </tr> <tr> <td>UA MUCUS </td> <td>2+ </td> <td>NEG TO 1+</td> </tr> <tr > <td>UA RBC</td> <td>20-50 rbc/hpf</td> <td>0 - 3</ td> </tr> <tr> <td>UA VOLUME FOR EXAM</td> <td> 12.0 mL</td> <td>(12mL STD)</td> </tr> <tr> <td> UA WBC</td> <td>2-5 wbc/hpf</td> <td>0 - 5</td> </tr> <tr> <th colspan="10">UR TEST - 01/30/15 20:38</th> </tr> <tr> <td>UR TEST</td> <td> NEGATIVE </td> <td>NEGATIVE</td> </tr> <tr> <td> Microbiology</td> <td> </td> <td /> </tr> <tr> <th colspan="10">CBC W/DIFF - 02/15/15 23:12</th> </tr> < tr> <td>EOSINOPHIL #</td> <td>0.1 k/cumm</td> <td>0.1 -0.5</td> </tr> <tr> <td>EOSINOPHIL %</td> < td>2 %</td> <td>2-4</td> </tr> <tr> <td> GRANULOCYTE #</td> <td>2.9 k/cumm</td> <td>2.0-9.0</td> </tr> <tr> <td>GRANULOCYTE %</td> <td>50 %</ td> <td>50-75</td> </tr> <tr> <td>LYMPHOCYTE #</ td> <td>2.3 k/cumm</td> <td>1.0-4.0</td> </tr> < tr> <td>LYMPHOCYTE %</td> <td>39 %</td> <td> 20-30</td> </tr> <tr> <td>MEAN CELL HGB</td> <td >28.7 pg</td> <td>27.0-33.0</td> </tr> <tr> <td> MEAN CELL HGB CONCENTRATION</td> <td>32.2 g/dL</td> <td>32.0- 37.0</td> </tr> <tr> <td>MEAN CELL VOLUME</td> < td>89.2 fl</td> <td>80.0-100.0</td> </tr> <tr> < td>MONOCYTE #</td> <td>0.5 k/cumm</td> <td>0.1-1.0</td> </tr> <tr> <td>MONOCYTE %</td> <td>9 %</td> <td>4-6</td> </tr> <tr> <td>RED BLOOD CELL</td> <td>3.80 m/cumm</td> <td>4.00-6.00</td> </tr> < tr> <td>RED CELL DISTRIBUTION WIDTH</td> <td>13.5 %</td> <td>11.0-15.6</td> </tr> <tr> <td>WHITE BLOOD CELL</td> <td>5.8 k/cumm</td> <td>5.0-10.0</td> </tr> <tr> <td>HEMOGLOBIN</td> <td>10.9 gm/dL</td> < td>12.0-16.0</td> </tr> <tr> <td>HEMATOCRIT</td> <td>33.9 %</td> <td>37.0-47.0</td> </tr> <tr> <td>PLATELET COUNT</td> <td>157 k/cumm</td> <td>150-400</ td> </tr> <tr> <td>Microbiology</td> <td> </td> <td /> </tr> <tr> < colspan="10">CHEM/HEM PROFILE-BEDSIDE - 02/15/15 23:15</th> </tr> <tr> <td> POTASSIUM</td> <td>3.0 mmol/L</td> <td>3.5-5.3</td> </ tr> <tr> <td>METHOD</td> <td>Bedside </td> < td /> </tr> <tr> <td>ANION GAP</td> <td>18 mmol/ L</td> <td>10-20</td> </tr> <tr> <td>METHOD</td > <td>Bedside </td> <td /> </tr> <tr> < td>GLUCOSE</td> <td>73 mg/dL</td> <td>70-99</td> </tr> <tr> <td>BLOOD UREA NITROGEN</td> <td>7 mg/dL</td> <td>7-20</td> </tr> <tr> <td>CREATININE</td> <td>0.4 mg/dL</td> <td>0.6-1.0</td> </tr> <tr> <td>HEMOGLOBIN</td> <td>10.5 gm/dL</td> <td>12.0-16.0</td > </tr> <tr> <td>HEMATOCRIT</td> <td>31.0 %< /td> <td>37.0-47.0</td> </tr> <tr> <td>SODIUM</ td> <td>143 mmol/L</td> <td>135-148</td> </tr> < tr> <td>CHLORIDE</td> <td>111 mmol/L</td> <td>98-110< /td> </tr> <tr> <td>CARBON DIOXIDE</td> <td>17 mmol/L</td> <td>21-32</td> </tr> <tr> <td> CALCIUM IONIZED</td> <td>3.9 mg/dL</td> <td>4.5-5.3</td> </tr> <tr> <td>Microbiology</td> <td> </td> <td /> </tr> <tr> <th colspan="10">CBC W/DIFF - 22:46</th> </tr> <tr> <td>EOSINOPHIL #</td> < td>0.2 k/cumm</td> <td>0.1-0.5</td> </tr> <tr> < td>EOSINOPHIL %</td> <td>2 %</td> <td>2-4</td> </tr> <tr> <td>GRANULOCYTE #</td> <td>3.6 k/cumm</td> <td>2.0-9.0</td> </tr> <tr> <td>GRANULOCYTE &#37 ;</td> <td>52 %</td> <td>50-75</td> </tr> < tr> <td>LYMPHOCYTE #</td> <td>2.5 k/cumm</td> <td>1.0 -4.0</td> </tr> <tr> <td>LYMPHOCYTE %</td> < td>36 %</td> <td>20-30</td> </tr> <tr> <td> MEAN CELL HGB</td> <td>28.4 pg</td> <td>27.0-33.0</td> </tr> <tr> <td>MEAN CELL HGB CONCENTRATION</td> <td> 32.0 g/dL</td> <td>32.0-37.0</td> </tr> <tr> <td >MEAN CELL VOLUME</td> <td>88.8 fl</td> <td>80.0-100.0</td> </tr> <tr> <td>MONOCYTE #</td> <td>0.7 k/cumm</td > <td>0.1-1.0</td> </tr> <tr> <td>MONOCYTE % </td> <td>10 %</td> <td>4-6</td> </tr> <tr> <td>RED BLOOD CELL</td> <td>4.12 m/cumm</td> <td> 4.00-6.00</td> </tr> <tr> <td>RED CELL DISTRIBUTION WIDTH </td> <td>15.0 %</td> <td>11.0-15.6</td> </tr> <tr> <td>WHITE BLOOD CELL</td> <td>6.9 k/cumm</td> <td>5.0-10.0</td> </tr> <tr> <td>HEMOGLOBIN</td> <td>11.7 gm/dL</td> <td>12.0-16.0</td> </tr> <tr> <td>HEMATOCRIT</td> <td>36.6 %</td> <td>37.0-47.0< /td> </tr> <tr> <td>PLATELET COUNT</td> <td>193 k/cumm</td> <td>150-450</td> </tr> <tr> <th colspan="10"> TEST, SERUM - 04/15/15 22:46</th> </tr> <tr > <td> TEST, SERUM</td> <td>NEGATIVE </td> < td>NEGATIVE</td> </tr> <tr> <th colspan="10">METABOLIC PANEL, COMPREHN - 04/15/15 22:46</th> </tr> <tr> <td> POTASSIUM</td> <td>4.0 mmol/L</td> <td>3.5-5.3</td> </ tr> <tr> <td>EST GFR (MDRD)</td> <td>> 60 mL/min</td > <td>> 59</td> </tr> <tr> <td>ANION GAP</td > <td>8 mmol/L</td> <td>5-15</td> </tr> <tr> <td>EST CrCl (CG)</td> <td>> 60 mL/min</td> <td>&gt ; 59</td> </tr> <tr> <td>GLUCOSE</td> <td>72 mg/ dL</td> <td>70-99</td> </tr> <tr> <td>CALCIUM</ td> <td>8.7 mg/dL</td> <td>8.5-10.1</td> </tr> < tr> <td>BLOOD UREA NITROGEN</td> <td>9 mg/dL</td> <td >7-20</td> </tr> <tr> <td>CREATININE</td> <td> 0.7 mg/dL</td> <td>0.6-1.0</td> </tr> <tr> <td> SODIUM</td> <td>140 mmol/L</td> <td>135-148</td> </tr> <tr> <td>CHLORIDE</td> <td>103 mmol/L</td> < td>98-110</td> </tr> <tr> <td>AST/SGOT</td> <td> 203 Units/L</td> <td>10-37</td> </tr> <tr> <td> ALT/SGPT</td> <td>277 Units/L</td> <td>< 66</td> </ tr> <tr> <td>CARBON DIOXIDE</td> <td>29 mmol/L</td> <td>21-32</td> </tr> <tr> <td>TOTAL PROTEIN</td> <td>7.0 gm/dL</td> <td>6.4-8.2</td> </tr> <tr> <td>ALBUMIN</td> <td>3.4 gm/dL</td> <td>3.4-5.0</td> </tr> <tr> <td>BILI TOTAL</td> <td>0.2 mg/dL</ td> <td>0.0-1.0</td> </tr> <tr> <td>ALKALINE PHOSPHATASE TOTAL</td> <td>139 IU/L</td> <td>45-117</td> </tr> <tr> <th colspan="10">MAGNESIUM - 04/15/15 22:46</th> </tr> <tr> <td>MAGNESIUM</td> <td>2.1 mg/dL</td > <td>1.8-2.4</td> </tr> <tr> <th colspan="10"> PHENYTOIN (DILANTIN) - 04/15/15 22:46</th> </tr> <tr> <td >PHENYTOIN (DILANTIN)</td> <td>< 2.5 mcg/mL</td> <td>10.0- 20.0</td> </tr> <tr> <th colspan="10">VALPROIC ACID ( DEPAKENE) - 04/15/15 22:46</th> </tr> <tr> <td>VALPROIC ACID (DEPAKENE)</td> <td>< 3 mcg/mL</td> <td>50-100</td> </tr> <tr> <th colspan="10">ALCOHOL (ETHANOL) SERUM - 22:46</th> </tr> <tr> <td>ALCOHOL (ETHANOL) SERUM</ td> <td>< 10 mg/dL</td> <td> < 10</td> </tr> <tr> <th colspan="10">URINALYSIS, ROUTINE - 04/15/15 23:00</th> </tr> <tr> <td>UA LEUKOCYTE ESTERASE DIPSTICK</td> <td>1+ </td> <td>NEGATIVE</td> </tr> <tr> <td> UA NITRITE DIPSTICK</td> <td>NEGATIVE </td> <td>NEGATIVE</td> </tr> <tr> <td>UA PROTEIN DIPSTICK</td> <td> TRACE </td> <td>NEGATIVE</td> </tr> <tr> <td>UA GLUCOSE DIPSTICK</td> <td>NEGATIVE </td> <td>NEGATIVE</td> </tr> <tr> <td>UA KETONE DIPSTICK</td> <td> NEGATIVE </td> <td>NEGATIVE</td> </tr> <tr> <td> UA UROBILINOGEN DIPSTICK</td> <td>2+ </td> <td>NORMAL</td> </tr> <tr> <td>UA BILIRUBIN DIPSTICK</td> <td> NEGATIVE </td> <td>NEGATIVE</td> </tr> <tr> <td> UA BLOOD DIPSTICK</td> <td>1+ </td> <td>NEGATIVE</td> < /tr> <tr> <td>UA SPECIFIC GRAVITY</td> <td>1.020 </td> <td>1.015-1.025</td> </tr> <tr> <td>UR PH</td> <td>6.0 </td> <td>5.0-7.0</td> </tr> <tr> < colspan="10">UA MICROSCOPIC - 04/15/15 23:00</th> </tr> < tr> <td>UA BACTERIA</td> <td>3+ </td> <td>NEGATIVE</ td> </tr> <tr> <td>UA EPITHELIAL CELLS</td> <td> 2+ epi/hpf</td> <td>0 - 1+</td> </tr> <tr> <td> UA MUCUS</td> <td>3+ </td> <td>NEG TO 1+</td> </tr> <tr> <td>UA RBC</td> <td>10-20 rbc/hpf</td> <td> 0 - 3</td> </tr> <tr> <td>UA VOLUME FOR EXAM</td> <td>5.0 mL</td> <td>(12mL STD)</td> </tr> <tr> <td>UA WBC</td> <td>5-10 wbc/hpf</td> <td>0 - 5</td> </tr> <tr> < colspan="10">UR DRUGS OF ABUSE SCREEN - 23:00</th> </tr> <tr> <td>UR AMPHETAMINES SCREEN</td> <td>POS (>1000 ng/mL) </td> <td>NEGATIVE</td> </tr > <tr> <td>UR BARBITURATE SCREEN</td> <td>NEG (< 200 ng/mL) </td> <td>NEGATIVE</td> </tr> <tr> < td>DRUGS OF ABUSE SCREEN COMMENT</td> <td> </td> <td /> </tr> <tr> <td>UR OPIATES SCREEN</td> <td>POS ( > 300 ng/mL) </td> <td>NEGATIVE</td> </tr> <tr> <td>UR PHENCYCLIDINE (PCP) SCREEN</td> <td>NEG (< 25 ng/mL) </ td> <td>NEGATIVE</td> </tr> <tr> <td>UR CANNABINOIDS (THC) SCREEN</td> <td>NEG (< 50 ng/mL) </td> <td>NEGATIVE</td> </tr> <tr> <td>UR COCAINE METABOLITE SCREEN</td> <td>NEG (< 300 ng/mL) </td> <td>NEGATIVE</td> </tr> <tr> <td>UR METHADONE SCREEN</td> <td> NEG (< 300 ng/mL) </td> <td>NEGATIVE</td> </tr> <tr> <td>UR BENZODIAZEPINE SCREEN</td> <td>POS (> 200 ng/mL) < /td> <td>NEGATIVE</td> </tr> <tr> <th colspan= "10">PROTHROMBIN TIME WITH INR - 04/16/15 00:15</th> </tr> <tr> <td>INTERNATIONAL NORMAL RATIO</td> <td>0.9 </td> <td> 0.9-1.1</td> </tr> <tr> <td>PROTHROMBIN TIME</td> <td>9.6 sec</td> <td>9.2-12.2</td> </tr> <tr> <th colspan="10">HEPATITIS PANEL-ACUTE - 04/16/15 17:44</th> </tr> <tr> <td>AB HEPATITIS A IGM</td> <td>NEGATIVE </td> <td>NEGATIVE</td> </tr> <tr> <td>AG HEPATITIS B SURF. </td> <td>NEGATIVE </td> <td>NEGATIVE</td> </tr> <tr> <td>AB HEPATITIS B CORE IGM</td> <td>NEGATIVE </td> <td>NEGATIVE</td> </tr> <tr> <td>AB HEPATITIS C</ td> <td>NEGATIVE </td> <td>NEGATIVE</td> </tr> < tr> < colspan="10">CBC W/DIFF - 04/17/15 06:22</th> </tr> <tr> <td>BASOPHIL #</td> <td>0.0 k/cumm</td> <td> 0.0-0.2</td> </tr> <tr> <td>BASOPHIL %</td> <td>1 %</td> <td>0-1</td> </tr> <tr> <td> EOSINOPHIL #</td> <td>0.1 k/cumm</td> <td>0.1-0.5</td> </tr> <tr> <td>EOSINOPHIL %</td> <td>3 %</td> <td>2-4</td> </tr> <tr> <td>GRANULOCYTE #</td> <td>1.9 k/cumm</td> <td>2.0-9.0</td> </tr> <tr> <td>GRANULOCYTE %</td> <td>44 %</td> <td>50- 75</td> </tr> <tr> <td>LYMPHOCYTE #</td> <td> 1.9 k/cumm</td> <td>1.0-4.0</td> </tr> <tr> <td> LYMPHOCYTE %</td> <td>44 %</td> <td>20-30</td> </tr> <tr> <td>MEAN CELL HGB</td> <td>27.7 pg</td> <td>27.0-33.0</td> </tr> <tr> <td>MEAN CELL HGB CONCENTRATION</td> <td>31.4 g/dL</td> <td>32.0-37.0</td> </tr> <tr> <td>MEAN CELL VOLUME</td> <td>88.2 fl</td > <td>80.0-100.0</td> </tr> <tr> <td>MONOCYTE #< /td> <td>0.4 k/cumm</td> <td>0.1-1.0</td> </tr> <tr> <td>MONOCYTE %</td> <td>9 %</td> <td>4-6 </td> </tr> <tr> <td>RED BLOOD CELL</td> <td> 3.72 m/cumm</td> <td>4.00-6.00</td> </tr> <tr> < td>RED CELL DISTRIBUTION WIDTH</td> <td>15.3 %</td> <td> 11.0-15.6</td> </tr> <tr> <td>WHITE BLOOD CELL</td> <td>4.4 k/cumm</td> <td>5.0-10.0</td> </tr> <tr> <td>HEMOGLOBIN</td> <td>10.3 gm/dL</td> <td>12.0-16.0</ td> </tr> <tr> <td>HEMATOCRIT</td> <td>32.8 &#37 ;</td> <td>37.0-47.0</td> </tr> <tr> <td> PLATELET COUNT</td> <td>162 k/cumm</td> <td>150-400</td> </tr> <tr> <th colspan="10">METABOLIC PANEL, COMPREHN - 04/17 06:22</th> </tr> <tr> <td>POTASSIUM</td> <td >4.2 mmol/L</td> <td>3.5-5.3</td> </tr> <tr> <td >EST GFR (MDRD)</td> <td>> 60 mL/min</td> <td>> 59</td> </tr> <tr> <td>ANION GAP</td> <td>6 mmol/L</td > <td>5-15</td> </tr> <tr> <td>EST CrCl (CG)</td > <td>> 60 mL/min</td> <td>> 59</td> </tr> <tr> <td>GLUCOSE</td> <td>87 mg/dL</td> <td>70-99</ td> </tr> <tr> <td>CALCIUM</td> <td>8.3 mg/dL</ td> <td>8.5-10.1</td> </tr> <tr> <td>BLOOD UREA NITROGEN</td> <td>8 mg/dL</td> <td>7-20</td> </tr> <tr> <td>CREATININE</td> <td>0.6 mg/dL</td> <td> 0.6-1.0</td> </tr> <tr> <td>SODIUM</td> <td>139 mmol/L</td> <td>135-148</td> </tr> <tr> <td> CHLORIDE</td> <td>108 mmol/L</td> <td>98-110</td> </tr > <tr> <td>AST/SGOT</td> <td>89 Units/L</td> < td>10-37</td> </tr> <tr> <td>ALT/SGPT</td> <td> 194 Units/L</td> <td>< 66</td> </tr> <tr> <td >CARBON DIOXIDE</td> <td>25 mmol/L</td> <td>21-32</td> </tr> <tr> <td>TOTAL PROTEIN</td> <td>5.9 gm/dL</td> <td>6.4-8.2</td> </tr> <tr> <td>ALBUMIN</td> <td>2.8 gm/dL</td> <td>3.4-5.0</td> </tr> <tr> <td>BILI TOTAL</td> <td>0.2 mg/dL</td> <td>0.0-1.0</td> </tr> <tr> <td>ALKALINE PHOSPHATASE TOTAL</td> <td>118 IU/L</td> <td>45-117</td> </tr> <tr> < colspan="10">BILI CONJUGATED - 04/17/15 06:22</th> </tr> <tr> <td>BILI CONJUGATED</td> <td>< 0.1 mg/dL</td> <td> 0.0-0.3</td> </tr> <tr> < colspan="10">ED RAINBOW COLLECT - 11/24/15 22:35</th> </tr> <tr> <td>PLASMA SEPARATOR TUBE</td> <td>Done mL</td> <td /> </tr> <tr> <td>SERUM SEPARATOR TUBE</td> <td>Done mL</td> <td /> </tr> <tr> <td>CITRATE BLUE</td> <td> Done mL</td> <td /> </tr> <tr> <td>Lavendar Tube </td> <td>Done mL</td> <td /> </tr> <tr> < colspan="10">Urine Microscopic - 11/24/15 22:35</th> </tr> <tr> <td>Bacteria</td> <td>Occasional NA</td> <td /> </tr> <tr> <td>Crystals</td> <td>Ca Ox NA</td> <td /> </tr> <tr> <td>Epithelial Cells</td> <td>2 /HPF</td> <td /> </tr> <tr> <td>RBC , Urine</td> <td>20 /HPF</td> <td>0-2</td> </tr> <tr> <td>Urine Mucus</td> <td>Present NA</td> <td / > </tr> <tr> <td>WBC, Urine</td> <td>0 /HPF</td > <td>0-4</td> </tr> <tr> < colspan="10"> Urinalysis with reflex microscopic - 11/24/15 22:35</th> </tr> <tr > <td>Appearance</td> <td>Cloudy NA</td> <td /> </tr> <tr> <td>Bilirubin</td> <td>Negative NA</td> <td>Negative</td> </tr> <tr> <td>Blood</td> <td>Pos 3+ NA</td> <td>Negative</td> </tr> <tr> <td>Color</td> <td>Yellow NA</td> <td /> </tr> <tr> <td>Glucose, Urine</td> <td>Negative </td> <td>Negative</td> </tr> <tr> <td>Ketones</td> <td>Trace </td> <td>Negative</td> </tr> <tr> < td>Leukocyte Esterase</td> <td>Negative NA</td> <td>Negative</ td> </tr> <tr> <td>Nitrites</td> <td>Negative NA </td> <td>Negative</td> </tr> <tr> <td>pH</td> <td>6.0 NA</td> <td>5.0-8.0</td> </tr> <tr> <td>Protein</td> <td>Pos 1+ NA</td> <td>Negative</td> </tr> <tr> <td>Specific [place]</td> <td>1.030 NA </td> <td>1.003-1.030</td> </tr> <tr> <td>UA Collection type</td> <td>Clean Catch NA</td> <td /> </ tr> <tr> <td>Urobilinogen</td> <td>2.0 mg/dL</td> <td><1.0</td> </tr> <tr> <th colspan="10">CBC With Platelet and Differential - 11/24/15 22:35</th> </tr> <tr> <td>Absolute Basophils</td> <td>0.07 10*3</td> <td> 0.00-0.20</td> </tr> <tr> <td>Absolute Eosinophils</td> <td>0.14 10*3</td> <td>0.00-0.50</td> </tr> <tr > <td>Absolute Lymphocytes</td> <td>3.59 10*3</td> < td>0.80-3.30</td> </tr> <tr> <td>Absolute Monocytes</td> <td>0.65 10*3</td> <td>0.30-1.00</td> </tr> <tr > <td>Absolute Neutrophils</td> <td>4.01 10*3</td> < td>1.90-7.00</td> </tr> <tr> <td>Basophils</td> <td>1 %</td> <td>0-2</td> </tr> <tr> <td> Eosinophils</td> <td>2 %</td> <td>0-4</td> </tr> <tr> <td>HCT</td> <td>35.7 %</td> <td>37.0- 47.0</td> </tr> <tr> <td>HGB</td> <td>11.0 g/dL< /td> <td>12.0-16.0</td> </tr> <tr> <td>Immature Granulocytes</td> <td>0.1 %</td> <td>0.0-1.0</td> < /tr> <tr> <td>Lymphocytes</td> <td>42 %</td> <td>20-46</td> </tr> <tr> <td>MCH</td> <td> 25.3 pg</td> <td>27.0-32.0</td> </tr> <tr> <td> MCHC</td> <td>30.8 g/dL</td> <td>32.0-36.0</td> </tr> <tr> <td>MCV</td> <td>82.1 fL</td> <td>82.0- 99.0</td> </tr> <tr> <td>Monocytes</td> <td>8 &# 37;</td> <td>4-11</td> </tr> <tr> <td>MPV</td> <td>9.5 fL</td> <td>9.4-12.4</td> </tr> <tr> <td>Neutrophils</td> <td>47 %</td> <td>51-75</td> </tr> <tr> <td>Platelet Count</td> <td>282 K/uL< /td> <td>150-400</td> </tr> <tr> <td>RBC</td> <td>4.35 10*6/uL</td> <td>4.00-5.20</td> </tr> < tr> <td>RDW</td> <td>16.6 %</td> <td>11.5-14.5</ td> </tr> <tr> <td>WBC</td> <td>8.5 K/uL</td> <td>4.8-10.8</td> </tr> <tr> <th colspan="10"> Comprehensive Metabolic Panel (CMP) - 11/24/15 22:35</th> </tr> < tr> <td>Albumin</td> <td>3.9 g/dL</td> <td>3.5-4.8</ td> </tr> <tr> <td>Alkaline Phosphatase</td> <td >71 U/L</td> <td>26-104</td> </tr> <tr> <td>ALT (SGPT)</td> <td>12 U/L</td> <td>14-54</td> </tr> <tr> <td>Anion Gap</td> <td>6 NA</td> <td>3-20</td > </tr> <tr> <td>AST (SGOT)</td> <td>17 U/L</td > <td>15-41</td> </tr> <tr> <td>Bilirubin Total< /td> <td>0.7 mg/dL</td> <td>0.2-1.2</td> </tr> < tr> <td>BUN</td> <td>6 mg/dL</td> <td>4-20</td> </tr> <tr> <td>Calcium</td> <td>9.1 mg/dL</td> <td>8.6-10.0</td> </tr> <tr> <td>Chloride</td> <td>104 mEq/L</td> <td>99-109</td> </tr> <tr> <td>CO2</td> <td>27 mEq/L</td> <td>22-32</td> </tr > <tr> <td>Creatinine</td> <td>0.73 mg/dL</td> <td>0.44-1.03</td> </tr> <tr> <td>Globulin</td> <td>2.9 g/dL</td> <td>1.9-4.3</td> </tr> <tr> <td>Glucose</td> <td>93 mg/dL</td> <td>70-100</td> </ tr> <tr> <td>Potassium</td> <td>3.4 mEq/L</td> <td>3.6-5.1</td> </tr> <tr> <td>Protein</td> < td>6.8 g/dL</td> <td>6.1-7.9</td> </tr> <tr> <td >Sodium</td> <td>137 mEq/L</td> <td>136-144</td> </tr> <tr> < colspan="10">eGFR - 11/24/15 22:35</th> </tr> <tr> <td>eGFR</td> <td>>60 NA</td> <td>> 60</td> </tr> <tr> <th colspan="10"> Screen, Urine NPT - 11/24/15 22:41</th> </tr> <tr> <td> Screen, Urine NPT</td> <td>Negative NA</td> <td /> </tr > <tr> < colspan="10">URINALYSIS, ROUTINE - 12/26/15 00:56</th > </tr> <tr> <td>UA LEUKOCYTE ESTERASE DIPSTICK</td> <td>NEGATIVE </td> <td>NEGATIVE</td> </tr> <tr> <td>UA NITRITE DIPSTICK</td> <td>NEGATIVE </td> <td> NEGATIVE</td> </tr> <tr> <td>UA PROTEIN DIPSTICK</td> <td>NEGATIVE </td> <td>NEGATIVE</td> </tr> <tr> <td>UA GLUCOSE DIPSTICK</td> <td>NEGATIVE </td> <td> NEGATIVE</td> </tr> <tr> <td>UA KETONE DIPSTICK</td> <td>1+ </td> <td>NEGATIVE</td> </tr> <tr> <td>UA UROBILINOGEN DIPSTICK</td> <td>2+ </td> <td>NORMAL</td > </tr> <tr> <td>UA BILIRUBIN DIPSTICK</td> <td> 1+ </td> <td>NEGATIVE</td> </tr> <tr> <td>UA BLOOD DIPSTICK</td> <td>TRACE </td> <td>NEGATIVE</td> < /tr> <tr> <td>UA SPECIFIC GRAVITY</td> <td>1.020 </td> <td>1.015-1.025</td> </tr> <tr> <td>UR PH</td> <td>6.5 </td> <td>5.0-7.0</td> </tr> <tr> < colspan="10">UA MICROSCOPIC - 12/26/15 00:56</th> </tr> < tr> <td>UA BACTERIA</td> <td>2+ </td> <td>NEGATIVE</ td> </tr> <tr> <td>UA EPITHELIAL CELLS</td> <td> 2+ epi/hpf</td> <td>0 - 1+</td> </tr> <tr> <td> UA RBC</td> <td>3-5 rbc/hpf</td> <td>0 - 3</td> </tr> <tr> <td>UA VOLUME FOR EXAM</td> <td>1.0 mL</td> <td>(12mL STD)</td> </tr> <tr> <td>UA WBC</td> <td>0-1 wbc/hpf</td> <td>0 - 5</td> </tr> <tr> < colspan="10">UR TEST - 12/26/15 00:57</th> </tr> <tr> <td>UR TEST</td> <td>NEGATIVE </td> <td>NEGATIVE</td> </tr> <tr> < colspan="10">CBC W/DIFF - 12/26/15 01:21</th> </tr> <tr> <td>BASOPHIL #</td> <td>0.1 k/cumm</td> <td>0.0-0.2</td> </tr> <tr> <td>BASOPHIL %</td> <td>1 %</td> <td>0-1</td> </tr> <tr> <td>EOSINOPHIL #</td> <td>0.2 k/cumm< /td> <td>0.1-0.5</td> </tr> <tr> <td>EOSINOPHIL %</td> <td>3 %</td> <td>2-4</td> </tr> < tr> <td>GRANULOCYTE #</td> <td>3.8 k/cumm</td> <td> 2.0-9.0</td> </tr> <tr> <td>GRANULOCYTE %</td> <td>52 %</td> <td>50-75</td> </tr> <tr> <td>LYMPHOCYTE #</td> <td>2.5 k/cumm</td> <td>1.0-4.0</td> </tr> <tr> <td>LYMPHOCYTE %</td> <td>35 %< /td> <td>20-30</td> </tr> <tr> <td>MEAN CELL HGB </td> <td>25.1 pg</td> <td>27.0-33.0</td> </tr> <tr> <td>MEAN CELL HGB CONCENTRATION</td> <td>31.5 g/dL</td> <td>32.0-37.0</td> </tr> <tr> <td>MEAN CELL VOLUME</td> <td>79.9 fl</td> <td>80.0-100.0</td> </tr> <tr> <td>MONOCYTE #</td> <td>0.8 k/cumm</td> <td>0.1-1.0</td> </tr> <tr> <td>MONOCYTE %</td> <td>10 %</td> <td>4-6</td> </tr> <tr> < td>RED BLOOD CELL</td> <td>4.02 m/cumm</td> <td>4.00-6.00</td > </tr> <tr> <td>RED CELL DISTRIBUTION WIDTH</td> <td>16.4 %</td> <td>11.0-15.6</td> </tr> <tr> <td>WHITE BLOOD CELL</td> <td>7.3 k/cumm</td> <td>5.0- 10.0</td> </tr> <tr> <td>HEMOGLOBIN</td> <td> 10.1 gm/dL</td> <td>12.0-16.0</td> </tr> <tr> < td>HEMATOCRIT</td> <td>32.1 %</td> <td>37.0-47.0</td> </tr> <tr> <td>PLATELET COUNT</td> <td>299 k/cumm</ td> <td>150-400</td> </tr> <tr> <th colspan="10 ">HEPATIC FUNCTION PANEL - 12/26/15 01:21</th> </tr> <tr> <td>BILI UNCONJUGATED</td> <td>0.2 mg/dL</td> <td>0.0-0.7</ td> </tr> <tr> <td>AST/SGOT</td> <td>16 Units/L< /td> <td>10-37</td> </tr> <tr> <td>ALT/SGPT</td > <td>20 Units/L</td> <td>< 66</td> </tr> <tr > <td>TOTAL PROTEIN</td> <td>7.3 gm/dL</td> <td>6.4- 8.2</td> </tr> <tr> <td>ALBUMIN</td> <td>3.9 gm/ dL</td> <td>3.4-5.0</td> </tr> <tr> <td>BILI TOTAL</td> <td>0.3 mg/dL</td> <td>0.0-1.0</td> </tr> <tr> <td>ALKALINE PHOSPHATASE TOTAL</td> <td>88 IU/L</td > <td>45-117</td> </tr> <tr> <td>BILI CONJUGATED </td> <td>0.1 mg/dL</td> <td>0.0-0.3</td> </tr> <tr> < colspan="10">LIPASE - 12/26/15 01:21</th> </tr> <tr> <td>LIPASE</td> <td>152 Units/L</td> <td>73-393< /td> </tr> <tr> < colspan="10">CHEM/HEM PROFILE- BEDSIDE - 12/26/15 01:23</th> </tr> <tr> <td>POTASSIUM</ td> <td>3.2 mmol/L</td> <td>3.5-5.3</td> </tr> < tr> <td>METHOD</td> <td>Bedside </td> <td /> < /tr> <tr> <td>ANION GAP</td> <td>19 mmol/L</td> <td>10-20</td> </tr> <tr> <td>METHOD</td> <td >Bedside </td> <td /> </tr> <tr> <td>GLUCOSE</td > <td>91 mg/dL</td> <td>70-99</td> </tr> <tr> <td>BLOOD UREA NITROGEN</td> <td>6 mg/dL</td> <td>7-20 </td> </tr> <tr> <td>CREATININE</td> <td>0.6 mg/ dL</td> <td>0.6-1.0</td> </tr> <tr> <td> HEMOGLOBIN</td> <td>10.5 gm/dL</td> <td>12.0-16.0</td> </tr> <tr> <td>HEMATOCRIT</td> <td>31.0 %</td> <td>37.0-47.0</td> </tr> <tr> <td>SODIUM</td> <td>139 mmol/L</td> <td>135-148</td> </tr> <tr> <td>CHLORIDE</td> <td>105 mmol/L</td> <td>98-110</td> </tr> <tr> <td>CARBON DIOXIDE</td> <td>20 mmol/L< /td> <td>21-32</td> </tr> <tr> <td>CALCIUM IONIZED</td> <td>4.5 mg/dL</td> <td>4.5-5.3</td> </tr> <tr> <th colspan="10"> Screen, Urine NPT - 02/26/16 07 :39</th> </tr> <tr> <td> Screen, Urine NPT</td> <td>Negative NA</td> <td /> </tr> <tr> <th colspan="10">UR TEST - 06/17/16 21:33</th> </tr> < tr> <td>UR TEST</td> <td>NEGATIVE </td> <td >NEGATIVE</td> </tr> <tr> <th colspan="10">URINALYSIS, ROUTINE - 06/17/16 21:33</th> </tr> <tr> <td>UA LEUKOCYTE ESTERASE DIPSTICK</td> <td>2+ </td> <td>NEGATIVE</td > </tr> <tr> <td>UA NITRITE DIPSTICK</td> <td> POSITIVE </td> <td>NEGATIVE</td> </tr> <tr> <td> UA PROTEIN DIPSTICK</td> <td>TRACE </td> <td>NEGATIVE</td> </tr> <tr> <td>UA GLUCOSE DIPSTICK</td> <td> NEGATIVE </td> <td>NEGATIVE</td> </tr> <tr> <td> UA KETONE DIPSTICK</td> <td>TRACE </td> <td>NEGATIVE</td> </tr> <tr> <td>UA UROBILINOGEN DIPSTICK</td> <td> NORMAL </td> <td>NORMAL</td> </tr> <tr> <td>UA BILIRUBIN DIPSTICK</td> <td>NEGATIVE </td> <td>NEGATIVE</td> </tr> <tr> <td>UA BLOOD DIPSTICK</td> <td>4+ </ td> <td>NEGATIVE</td> </tr> <tr> <td>UA SPECIFIC GRAVITY</td> <td>1.018 </td> <td>1.015-1.025</td> </tr> <tr> <td>UR PH</td> <td>6.5 </td> < td>5.0-7.0</td> </tr> <tr> < colspan="10">UA MICROSCOPIC - 06/17/16 21:33</th> </tr> <tr> <td>UA BACTERIA</td> <td>5+ </td> <td>NEGATIVE</td> </tr> <tr> <td>UA EPITHELIAL CELLS</td> <td>4+ epi/hpf</td> <td>0 - 1+</td> </tr> <tr> <td>UA MUCUS</td> <td>2+ </td> <td>NEG TO 1+</td> </tr> <tr> < td>UA RBC</td> <td>3-5 rbc/hpf</td> <td>0 - 3</td> </tr > <tr> <td>UA VOLUME FOR EXAM</td> <td>12.0 mL</td> <td>(12mL STD)</td> </tr> <tr> <td>UA WBC</td> <td>20-50 wbc/hpf</td> <td>0 - 5</td> </tr> <tr> <th colspan="10">URINE CULTURE - 06/17/16 21:33</th> </tr> <tr> <td>Microbiology</td> <td> </td> <td /> </tr> <tr> <th colspan="10"> Screen, Urine NPT - 03/12 01:48</th> </tr> <tr> <td> Screen, Urine NPT</td> <td>Negative NA</td> <td /> </tr> <tr> <th colspan="10">Chem 8 NPT - 07/06/16 01:49</th> </tr> <tr> <td>Anion Gap</td> <td>11 NA</td> <td>3-20</td> </tr> <tr> <td>BUN Venous</td> <td>12 mg/dl</td > <td>4-20</td> </tr> <tr> <td>Calcium Ionized Venous</td> <td>1.15 mmol/L</td> <td>1.19-1.41</td> </ tr> <tr> <td>Creatinine Venous</td> <td>0.6 mg/dL</td> <td>0.4-1.0</td> </tr> <tr> <td>Glucose Venous< /td> <td>78 mg/dL</td> <td>70-100</td> </tr> <tr > <td>Potassium, WB</td> <td>3.8 mEq/L</td> <td>3.6- 5.1</td> </tr> <tr> <td>Sodium Venous</td> <td> 140 mEq/L</td> <td>136-144</td> </tr> <tr> <td> Total CO2 Venous</td> <td>25 mEq/L</td> <td>25-29</td> </tr> <tr> <td>Venous CL</td> <td>104 mEq/L</td> <td>99-109</td> </tr> <tr> <td>HCT Venous</td> <td>26.0 %</td> <td>37.0-47.0</td> </tr> <tr> <td>HGB Venous NPT</td> <td>8.8 g/dL</td> <td>12.0-16.0 </td> </tr> <tr> < colspan="10">Urinalysis with reflex microscopic - 07/06/16 01:50</th> </tr> <tr> <td> Appearance</td> <td>Sl Cloudy NA</td> <td /> </tr> <tr> <td>Bilirubin</td> <td>Negative NA</td> <td> Negative</td> </tr> <tr> <td>Blood</td> <td>Pos 3+ NA</td> <td>Negative</td> </tr> <tr> <td> Color</td> <td>Yellow NA</td> <td /> </tr> <tr> <td>Glucose, Urine</td> <td>Negative </td> <td> Negative</td> </tr> <tr> <td>Ketones</td> <td> Negative </td> <td>Negative</td> </tr> <tr> <td> Leukocyte Esterase</td> <td>Negative NA</td> <td>Negative</td > </tr> <tr> <td>Nitrites</td> <td>Negative NA</ td> <td>Negative</td> </tr> <tr> <td>pH</td> <td>5.0 NA</td> <td>5.0-8.0</td> </tr> <tr> <td>Protein</td> <td>Negative NA</td> <td>Negative</td> </tr> <tr> <td>Specific [place]</td> <td>1.030 NA </td> <td>1.003-1.030</td> </tr> <tr> <td>UA Collection type</td> <td>Clean Catch NA</td> <td /> </ tr> <tr> <td>Urobilinogen</td> <td>Negative mg/dL</td> <td><1.0</td> </tr> <tr> < colspan="10"> Urine Microscopic - 07/06/16 01:50</th> </tr> <tr> <td> Bacteria</td> <td>Occasional NA</td> <td /> </tr> <tr> <td>Epithelial Cells</td> <td>5 /HPF</td> < td /> </tr> <tr> <td>RBC, Urine</td> <td>>50 /HPF</td> <td>0-2</td> </tr> <tr> <td>WBC, Urine </td> <td>2 /HPF</td> <td>0-4</td> </tr> <tr> < colspan="10">Urinalysis with reflex microscopic - 09/12/16 18:58</th > </tr> <tr> <td>Appearance</td> <td>Cloudy NA</ td> <td /> </tr> <tr> <td>Bilirubin</td> <td>Negative NA</td> <td>Negative</td> </tr> <tr> <td>Blood</td> <td>Pos 3+ NA</td> <td>Negative</td> </tr> <tr> <td>Color</td> <td>Ute NA</td> <td /> </tr> <tr> <td>Glucose, Urine</td> <td >Negative </td> <td>Negative</td> </tr> <tr> <td >Ketones</td> <td>Trace </td> <td>Negative</td> </tr> <tr> <td>Leukocyte Esterase</td> <td>Pos 1+ NA</td> <td>Negative</td> </tr> <tr> <td>Nitrites</td> <td>Negative NA</td> <td>Negative</td> </tr> <tr> <td>pH</td> <td>5.0 NA</td> <td>5.0-8.0</td> </tr> <tr> <td>Protein</td> <td>Pos 1+ NA</td> <td>Negative</td> </tr> <tr> <td>Specific [place]</td> <td>1.035 NA</td> <td>1.003-1.030</td> </tr> < tr> <td>UA Collection type</td> <td>Clean Catch NA</td> <td /> </tr> <tr> <td>Urobilinogen</td> <td> 2.0 mg/dL</td> <td><1.0</td> </tr> <tr> <th colspan="10"> Screen, Urine - 09/12/16 18:58</th> </tr> < tr> <td> Screen, Urine</td> <td>Negative NA</td> <td /> </tr> <tr> <th colspan="10">Urine Microscopic - 09/12/16 18:58</th> </tr> <tr> <td>Bacteria </td> <td>Numerous NA</td> <td /> </tr> <tr> <td>Crystals</td> <td>Ca Ox NA</td> <td /> </tr > <tr> <td>Epithelial Cells</td> <td>10 /HPF</td> <td /> </tr> <tr> <td>RBC, Urine</td> <td>& gt;50 /HPF</td> <td>0-2</td> </tr> <tr> <td> Urine Mucus</td> <td>Present NA</td> <td /> </tr> <tr> <td>WBC, Urine</td> <td>10 /HPF</td> <td>0-4< /td> </tr> <tr> < colspan="10">ED RAINBOW COLLECT - 19:30</th> </tr> <tr> <td>PLASMA SEPARATOR TUBE</td > <td>Done mL</td> <td /> </tr> <tr> < td>SERUM SEPARATOR TUBE</td> <td>Done mL</td> <td /> </ tr> <tr> <td>CITRATE BLUE</td> <td>Done mL</td> <td /> </tr> <tr> <td>Lavendar Tube</td> <td> Done mL</td> <td /> </tr> <tr> < colspan="10"> CBC W/DIFF - 10/23/16 17:05</th> </tr> <tr> <td>BASOPHIL #</td> <td>0.0 k/cumm</td> <td>0.0-0.2</td> </tr> <tr> <td>BASOPHIL %</td> <td>1 %</td> <td> 0-1</td> </tr> <tr> <td>COMMENT</td> <td> </ td> <td /> </tr> <tr> <td>EOSINOPHIL #</td> <td>0.1 k/cumm</td> <td>0.1-0.5</td> </tr> <tr> <td>EOSINOPHIL %</td> <td>2 %</td> <td>2-4</td > </tr> <tr> <td>GRANULOCYTE #</td> <td>3.8 k/ cumm</td> <td>2.0-9.0</td> </tr> <tr> <td> GRANULOCYTE %</td> <td>61 %</td> <td>50-75</td> </tr> <tr> <td>LYMPHOCYTE #</td> <td>1.8 k/cumm</td> <td>1.0-4.0</td> </tr> <tr> <td>LYMPHOCYTE &#37 ;</td> <td>29 %</td> <td>20-30</td> </tr> < tr> <td>MEAN CELL HGB</td> <td>17.3 pg</td> <td>27.0- 33.0</td> </tr> <tr> <td>MEAN CELL HGB CONCENTRATION</td > <td>25.4 g/dL</td> <td>32.0-37.0</td> </tr> < tr> <td>MEAN CELL VOLUME</td> <td>68.2 fl</td> <td> 80.0-100.0</td> </tr> <tr> <td>MONOCYTE #</td> < td>0.4 k/cumm</td> <td>0.1-1.0</td> </tr> <tr> < td>MONOCYTE %</td> <td>7 %</td> <td>4-6</td> </ tr> <tr> <td>OVALOCYTES</td> <td>NOTED </td> < td /> </tr> <tr> <td>RED BLOOD CELL</td> <td> 3.81 m/cumm</td> <td>4.00-6.00</td> </tr> <tr> < td>RED CELL DISTRIBUTION WIDTH</td> <td>18.7 %</td> <td> 11.0-15.6</td> </tr> <tr> <td>TEAR DROP CELLS</td> <td>NOTED </td> <td /> </tr> <tr> <td>WHITE BLOOD CELL</td> <td>6.2 k/cumm</td> <td>5.0-10.0</td> < /tr> <tr> <td>HEMOGLOBIN</td> <td>6.6 gm/dL</td> <td>12.0-16.0</td> </tr> <tr> <td>HEMATOCRIT</td> <td>26.0 %</td> <td>37.0-47.0</td> </tr> <tr> <td>PLATELET COUNT</td> <td>410 k/cumm</td> <td>150- 400</td> </tr> <tr> < colspan="10">URINALYSIS, NO REFLEX CULTURE - 10/23/16 17:05</th> </tr> <tr> <td>UA LEUKOCYTE ESTERASE DIPSTICK</td> <td>TRACE </td> <td>NEGATIVE< /td> </tr> <tr> <td>UA NITRITE DIPSTICK</td> <td >NEGATIVE </td> <td>NEGATIVE</td> </tr> <tr> <td >UA PROTEIN DIPSTICK</td> <td>NEGATIVE </td> <td>NEGATIVE</td > </tr> <tr> <td>UA GLUCOSE DIPSTICK</td> <td> NEGATIVE </td> <td>NEGATIVE</td> </tr> <tr> <td> UA KETONE DIPSTICK</td> <td>TRACE </td> <td>NEGATIVE</td> </tr> <tr> <td>UA UROBILINOGEN DIPSTICK</td> <td> NORMAL </td> <td>NORMAL</td> </tr> <tr> <td>UA BILIRUBIN DIPSTICK</td> <td>NEGATIVE </td> <td>NEGATIVE</td> </tr> <tr> <td>UA BLOOD DIPSTICK</td> <td> NEGATIVE </td> <td>NEGATIVE</td> </tr> <tr> <td> UA SPECIFIC GRAVITY</td> <td>1.021 </td> <td>1.015-1.025</td> </tr> <tr> <td>UR PH</td> <td>7.0 </td> <td>5.0-7.0</td> </tr> <tr> <th colspan="10">UA MICROSCOPIC - 10/23/16 17:05</th> </tr> <tr> <td>UA BACTERIA</td> <td>1+ </td> <td>NEGATIVE</td> </tr> <tr> <td>UA EPITHELIAL CELLS</td> <td>2+ epi/hpf</td> <td>0 - 1+</td> </tr> <tr> <td>UA MUCUS</td> <td>1+ </td> <td>NEG TO 1+</td> </tr> <tr> < td>UA VOLUME FOR EXAM</td> <td>12.0 mL</td> <td>(12mL STD)</td > </tr> <tr> <td>UA WBC</td> <td>0-1 wbc/hpf</td > <td>0 - 5</td> </tr> <tr> <th colspan="10">UR TEST - 10/23/16 17:05</th> </tr> <tr> <td>UR TEST</td> <td>NEGATIVE </td> <td>NEGATIVE</td> </tr> <tr> <th colspan="10">PROTHROMBIN TIME WITH INR - 10/23 17:05</th> </tr> <tr> <td>INTERNATIONAL NORMAL RATIO< /td> <td>1.0 </td> <td>0.9-1.1</td> </tr> <tr> <td>PROTHROMBIN TIME</td> <td>11.2 sec</td> <td>10.0- 12.8</td> </tr> <tr> <th colspan="10">METABOLIC PANEL, COMPREHN - 10/23/16 17:05</th> </tr> <tr> <td>POTASSIUM</ td> <td>3.9 mmol/L</td> <td>3.5-5.3</td> </tr> < tr> <td>EST GFR (MDRD)</td> <td>> 60 mL/min</td> < td>> 59</td> </tr> <tr> <td>ANION GAP</td> < td>8 mmol/L</td> <td>5-15</td> </tr> <tr> <td> GLUCOSE</td> <td>99 mg/dL</td> <td>70-99</td> </tr> <tr> <td>CALCIUM</td> <td>8.5 mg/dL</td> <td>8.5 -10.1</td> </tr> <tr> <td>BLOOD UREA NITROGEN</td> <td>7 mg/dL</td> <td>7-20</td> </tr> <tr> < td>CREATININE</td> <td>0.7 mg/dL</td> <td>0.6-1.0</td> </tr> <tr> <td>SODIUM</td> <td>144 mmol/L</td> <td>135-148</td> </tr> <tr> <td>CHLORIDE</td> <td>110 mmol/L</td> <td>98-110</td> </tr> <tr> < td>AST/SGOT</td> <td>17 Units/L</td> <td>10-37</td> </ tr> <tr> <td>ALT/SGPT</td> <td>21 Units/L</td> <td>< 66</td> </tr> <tr> <td>CARBON DIOXIDE</td> <td>26 mmol/L</td> <td>21-32</td> </tr> <tr> <td>TOTAL PROTEIN</td> <td>7.2 gm/dL</td> <td>6.4-8.2</td > </tr> <tr> <td>ALBUMIN</td> <td>3.6 gm/dL</td > <td>3.4-5.0</td> </tr> <tr> <td>BILI TOTAL</td > <td>0.1 mg/dL</td> <td>0.0-1.0</td> </tr> <tr > <td>ALKALINE PHOSPHATASE TOTAL</td> <td>72 IU/L</td> <td>45-117</td> </tr> <tr> <th colspan="10">LIPASE - 10/23/16 17:05</th> </tr> <tr> <td>LIPASE</td> < td>165 Units/L</td> <td>73-393</td> </tr> <tr> < th colspan="10">RETICULOCYTE COUNT - 10/23/16 17:05</th> </tr> <tr > <td>IMMATURE FRACTION</td> <td>10.1 %</td> <td> 5-22</td> </tr> <tr> <td>RED BLOOD CELL</td> <td >3.91 m/cumm</td> <td>4.00-6.00</td> </tr> <tr> <td>ABSOLUTE RETIC COUNT</td> <td>39.5 k/cumm</td> <td>20.0- 180.0</td> </tr> <tr> <td>PERCENT RETIC</td> <td >1.0 %</td> <td>0.5-3.0</td> </tr> <tr> <th colspan="10">IRON W/ BINDING CAPACITY - 10/23/16 17:05</th> </tr> <tr> <td>IRON SATURATION</td> <td>4 % SAT</td> < td>11-46</td> </tr> <tr> <td>IRON BINDING CAPACITY, TOTAL </td> <td>445 mcg/dL</td> <td>250-450</td> </tr> <tr> <td>IRON</td> <td>17 mcg/dL</td> <td>35-150</ td> </tr> <tr> <th colspan="10">FERRITIN - 10/23/16 17:05 </th> </tr> <tr> <td>FERRITIN</td> <td>2 ng/mL</ td> <td>8-252</td> </tr> <tr> <th colspan="10"> CBC W/DIFF - 10/24/16 02:32</th> </tr> <tr> <td>COMMENT</ td> <td>REVIEWED </td> <td /> </tr> <tr> <td>EOSINOPHIL #</td> <td>0.2 k/cumm</td> <td>0.1-0.5</td> </tr> <tr> <td>EOSINOPHIL %</td> <td>2 &#37 ;</td> <td>2-4</td> </tr> <tr> <td>GRANULOCYTE # </td> <td>3.0 k/cumm</td> <td>2.0-9.0</td> </tr> <tr> <td>GRANULOCYTE %</td> <td>45 %</td> < td>50-75</td> </tr> <tr> <td>LYMPHOCYTE #</td> < td>3.0 k/cumm</td> <td>1.0-4.0</td> </tr> <tr> < td>LYMPHOCYTE %</td> <td>45 %</td> <td>20-30</td> </tr> <tr> <td>MEAN CELL HGB</td> <td>18.9 pg</td> <td>27.0-33.0</td> </tr> <tr> <td>MEAN CELL HGB CONCENTRATION</td> <td>26.7 g/dL</td> <td>32.0-37.0</td> </tr> <tr> <td>MEAN CELL VOLUME</td> <td>70.6 fl </td> <td>80.0-100.0</td> </tr> <tr> <td> MONOCYTE #</td> <td>0.5 k/cumm</td> <td>0.1-1.0</td> </ tr> <tr> <td>MONOCYTE %</td> <td>7 %</td> <td>4-6</td> </tr> <tr> <td>OVALOCYTES</td> <td>NOTED </td> <td /> </tr> <tr> <td>RED BLOOD CELL</td> <td>3.44 m/cumm</td> <td>4.00-6.00</td> </tr> <tr> <td>RED CELL DISTRIBUTION WIDTH</td> <td> 20.1 %</td> <td>11.0-15.6</td> </tr> <tr> < td>TEAR DROP CELLS</td> <td>NOTED </td> <td /> </tr> <tr> <td>WHITE BLOOD CELL</td> <td>6.7 k/cumm</td> <td>5.0-10.0</td> </tr> <tr> <td>HEMOGLOBIN</td> <td>6.5 gm/dL</td> <td>12.0-16.0</td> </tr> <tr> <td>HEMATOCRIT</td> <td>24.3 %</td> <td>37.0-47.0 </td> </tr> <tr> <td>PLATELET COUNT</td> <td> 345 k/cumm</td> <td>150-400</td> </tr> <tr> <th colspan="10">HEMOGLOBIN - 10/24/16 02:32</th> </tr> <tr> <td>MEAN CELL VOLUME</td> <td>70.6 fl</td> <td>80.0-100.0</td > </tr> <tr> <td>HEMOGLOBIN</td> <td>6.5 gm/dL</ td> <td>12.0-16.0</td> </tr> <tr> <th colspan= "10">HEMOGLOBIN - 10/24/16 02:33</th> </tr> <tr> <td> MEAN CELL VOLUME</td> <td>70.5 fl</td> <td>80.0-100.0</td> </tr> <tr> <td>HEMOGLOBIN</td> <td>6.6 gm/dL</td> <td>12.0-16.0</td> </tr> <tr> < colspan="10"> RENAL FUNCTION PANEL - 10/24/16 02:33</th> </tr> <tr> <td >POTASSIUM</td> <td>3.6 mmol/L</td> <td>3.5-5.3</td> </ tr> <tr> <td>EST GFR (MDRD)</td> <td>> 60 mL/min</td > <td>> 59</td> </tr> <tr> <td>ANION GAP</td > <td>4 mmol/L</td> <td>5-15</td> </tr> <tr> <td>EST CrCl (CG)</td> <td>> 60 mL/min</td> <td>&gt ; 59</td> </tr> <tr> <td>GLUCOSE</td> <td>92 mg/ dL</td> <td>70-99</td> </tr> <tr> <td>CALCIUM</ td> <td>7.9 mg/dL</td> <td>8.5-10.1</td> </tr> < tr> <td>BLOOD UREA NITROGEN</td> <td>5 mg/dL</td> <td >7-20</td> </tr> <tr> <td>CREATININE</td> <td> 0.6 mg/dL</td> <td>0.6-1.0</td> </tr> <tr> <td> SODIUM</td> <td>139 mmol/L</td> <td>135-148</td> </tr> <tr> <td>CHLORIDE</td> <td>109 mmol/L</td> < td>98-110</td> </tr> <tr> <td>CARBON DIOXIDE</td> <td>26 mmol/L</td> <td>21-32</td> </tr> <tr> <td>ALBUMIN</td> <td>3.0 gm/dL</td> <td>3.4-5.0</td> </ tr> <tr> <td>PHOSPHORUS</td> <td>3.7 mg/dL</td> <td>2.5-4.9</td> </tr> <tr> < colspan="10"> MAGNESIUM - 10/24/16 02:33</th> </tr> <tr> <td>MAGNESIUM< /td> <td>1.7 mg/dL</td> <td>1.8-2.4</td> </tr> < tr> < colspan="10">HEMOGLOBIN - 10/24/16 09:10</th> </tr> <tr> <td>MEAN CELL VOLUME</td> <td>72.1 fl</td> < td>80.0-100.0</td> </tr> <tr> <td>HEMOGLOBIN</td> <td>7.9 gm/dL</td> <td>12.0-16.0</td> </tr> <tr> < colspan="10">HEMOGLOBIN - 10/24/16 14:58</th> </tr> <tr> <td>MEAN CELL VOLUME</td> <td>70.0 fl</td> <td>80.0- 100.0</td> </tr> <tr> <td>HEMOGLOBIN</td> <td> 8.1 gm/dL</td> <td>12.0-16.0</td> </tr> <tr> < colspan="10">CBC W/DIFF - 10/25/16 04:58</th> </tr> <tr> <td>BASOPHIL #</td> <td>0.0 k/cumm</td> <td>0.0-0.2</td> </tr> <tr> <td>BASOPHIL %</td> <td>1 %</ td> <td>0-1</td> </tr> <tr> <td>COMMENT</td> <td>REVIEWED </td> <td /> </tr> <tr> <td> EOSINOPHIL #</td> <td>0.2 k/cumm</td> <td>0.1-0.5</td> </tr> <tr> <td>EOSINOPHIL %</td> <td>2 %</td> <td>2-4</td> </tr> <tr> <td>GRANULOCYTE #</td> <td>4.2 k/cumm</td> <td>2.0-9.0</td> </tr> <tr> <td>GRANULOCYTE %</td> <td>58 %</td> <td>50- 75</td> </tr> <tr> <td>LYMPHOCYTE #</td> <td> 2.3 k/cumm</td> <td>1.0-4.0</td> </tr> <tr> <td> LYMPHOCYTE %</td> <td>31 %</td> <td>20-30</td> </tr> <tr> <td>MEAN CELL HGB</td> <td>20.3 pg</td> <td>27.0-33.0</td> </tr> <tr> <td>MEAN CELL HGB CONCENTRATION</td> <td>28.9 g/dL</td> <td>32.0-37.0</td> </tr> <tr> <td>MEAN CELL VOLUME</td> <td>70.3 fl</td > <td>80.0-100.0</td> </tr> <tr> <td>MONOCYTE #< /td> <td>0.5 k/cumm</td> <td>0.1-1.0</td> </tr> <tr> <td>MONOCYTE %</td> <td>7 %</td> <td>4-6 </td> </tr> <tr> <td>OVALOCYTES</td> <td>NOTED < /td> <td /> </tr> <tr> <td>RED BLOOD CELL</td> <td>3.94 m/cumm</td> <td>4.00-6.00</td> </tr> < tr> <td>RED CELL DISTRIBUTION WIDTH</td> <td>20.4 %</td> <td>11.0-15.6</td> </tr> <tr> <td>TEAR DROP CELLS</td> <td>NOTED </td> <td /> </tr> <tr> <td>WHITE BLOOD CELL</td> <td>7.2 k/cumm</td> <td>5.0- 10.0</td> </tr> <tr> <td>HEMOGLOBIN</td> <td> 8.0 gm/dL</td> <td>12.0-16.0</td> </tr> <tr> <td >HEMATOCRIT</td> <td>27.7 %</td> <td>37.0-47.0</td> </tr> <tr> <td>PLATELET COUNT</td> <td>319 k/cumm</td > <td>150-400</td> </tr> <tr> <th colspan="10"> METABOLIC PANEL, COMPREHN - 10/25/16 04:58</th> </tr> <tr> <td>POTASSIUM</td> <td>4.0 mmol/L</td> <td>3.5-5.3</td> </tr> <tr> <td>EST GFR (MDRD)</td> <td>> 60 mL/ min</td> <td>> 59</td> </tr> <tr> <td>ANION GAP</td> <td>2 mmol/L</td> <td>5-15</td> </tr> < tr> <td>EST CrCl (CG)</td> <td>> 60 mL/min</td> < td>> 59</td> </tr> <tr> <td>GLUCOSE</td> <td> 87 mg/dL</td> <td>70-99</td> </tr> <tr> <td> CALCIUM</td> <td>8.3 mg/dL</td> <td>8.5-10.1</td> </tr > <tr> <td>BLOOD UREA NITROGEN</td> <td>2 mg/dL</td> <td>7-20</td> </tr> <tr> <td>CREATININE</td> <td>0.6 mg/dL</td> <td>0.6-1.0</td> </tr> <tr> <td>SODIUM</td> <td>137 mmol/L</td> <td>135-148</td> </tr> <tr> <td>CHLORIDE</td> <td>111 mmol/L</td> <td>98-110</td> </tr> <tr> <td>AST/SGOT</td> <td>23 Units/L</td> <td>10-37</td> </tr> <tr> <td>ALT/SGPT</td> <td>18 Units/L</td> <td>< 66</td> </tr> <tr> <td>CARBON DIOXIDE</td> <td>24 mmol/L </td> <td>21-32</td> </tr> <tr> <td>TOTAL PROTEIN</td> <td>5.8 gm/dL</td> <td>6.4-8.2</td> </tr> <tr> <td>ALBUMIN</td> <td>2.8 gm/dL</td> <td> 3.4-5.0</td> </tr> <tr> <td>BILI TOTAL</td> <td> 0.1 mg/dL</td> <td>0.0-1.0</td> </tr> <tr> <td> ALKALINE PHOSPHATASE TOTAL</td> <td>61 IU/L</td> <td>45-117</ td> </tr> <tr> <th colspan="10">AB H.PYLORI SCREEN - 06/12 04:58</th> </tr> <tr> <td>AB H.PYLORI SCREEN</td> <td>NEGATIVE </td> <td>NEGATIVE</td> </tr> <tr> <th colspan="10">LIPASE - 10/26/16 04:25</th> </tr> <tr > <td>LIPASE</td> <td>86 Units/L</td> <td>73-393</td > </tr> <tr> <th colspan="10">CBC W/DIFF - 10/26/16 04:33 </th> </tr> <tr> <td>EOSINOPHIL #</td> <td>0.2 k /cumm</td> <td>0.1-0.5</td> </tr> <tr> <td> EOSINOPHIL %</td> <td>2 %</td> <td>2-4</td> </ tr> <tr> <td>GRANULOCYTE #</td> <td>5.9 k/cumm</td> <td>2.0-9.0</td> </tr> <tr> <td>GRANULOCYTE %< /td> <td>65 %</td> <td>50-75</td> </tr> <tr > <td>LYMPHOCYTE #</td> <td>2.2 k/cumm</td> <td>1.0- 4.0</td> </tr> <tr> <td>LYMPHOCYTE %</td> < td>24 %</td> <td>20-30</td> </tr> <tr> <td> MEAN CELL HGB</td> <td>20.2 pg</td> <td>27.0-33.0</td> </tr> <tr> <td>MEAN CELL HGB CONCENTRATION</td> <td> 28.2 g/dL</td> <td>32.0-37.0</td> </tr> <tr> <td >MEAN CELL VOLUME</td> <td>71.5 fl</td> <td>80.0-100.0</td> </tr> <tr> <td>MONOCYTE #</td> <td>0.8 k/cumm</td > <td>0.1-1.0</td> </tr> <tr> <td>MONOCYTE % </td> <td>9 %</td> <td>4-6</td> </tr> <tr> <td>OVALOCYTES</td> <td>NOTED </td> <td /> </ tr> <tr> <td>RED BLOOD CELL</td> <td>4.11 m/cumm</td> <td>4.00-6.00</td> </tr> <tr> <td>RED CELL DISTRIBUTION WIDTH</td> <td>22.3 %</td> <td>11.0-15.6</td > </tr> <tr> <td>WHITE BLOOD CELL</td> <td>9.1 k /cumm</td> <td>5.0-10.0</td> </tr> <tr> <td> HEMOGLOBIN</td> <td>8.3 gm/dL</td> <td>12.0-16.0</td> < /tr> <tr> <td>HEMATOCRIT</td> <td>29.4 %</td> <td>37.0-47.0</td> </tr> <tr> <td>PLATELET COUNT</td > <td>315 k/cumm</td> <td>150-400</td> </tr> <tr > <th colspan="10">RENAL FUNCTION PANEL - 10/26/16 04:33</th> </ tr> <tr> <td>POTASSIUM</td> <td>5.4 mmol/L</td> <td>3.5-5.3</td> </tr> <tr> <td>EST GFR (MDRD)</td> <td>> 60 mL/min</td> <td>> 59</td> </tr> < tr> <td>ANION GAP</td> <td>5 mmol/L</td> <td>5-15</td > </tr> <tr> <td>EST CrCl (CG)</td> <td>> 60 mL/min</td> <td>> 59</td> </tr> <tr> <td> GLUCOSE</td> <td>89 mg/dL</td> <td>70-99</td> </tr> <tr> <td>CALCIUM</td> <td>8.3 mg/dL</td> <td>8.5 -10.1</td> </tr> <tr> <td>BLOOD UREA NITROGEN</td> <td>5 mg/dL</td> <td>7-20</td> </tr> <tr> < td>CREATININE</td> <td>0.6 mg/dL</td> <td>0.6-1.0</td> </tr> <tr> <td>SODIUM</td> <td>142 mmol/L</td> <td>135-148</td> </tr> <tr> <td>CHLORIDE</td> <td>109 mmol/L</td> <td>98-110</td> </tr> <tr> < td>CARBON DIOXIDE</td> <td>28 mmol/L</td> <td>21-32</td> </tr> <tr> <td>ALBUMIN</td> <td>2.9 gm/dL</td> <td>3.4-5.0</td> </tr> <tr> <td>PHOSPHORUS</td> <td>4.4 mg/dL</td> <td>2.5-4.9</td> </tr> <tr> < colspan="10">MAGNESIUM - 10/26/16 04:33</th> </tr> <tr> <td>MAGNESIUM</td> <td>1.7 mg/dL</td> <td>1.8-2.4</ td> </tr> <tr> < colspan="10">Urinalysis with reflex microscopic - 01/08/17 05:33</th> </tr> <tr> <td> Appearance</td> <td>Cloudy NA</td> <td /> </tr> <tr> <td>Bilirubin</td> <td>Negative NA</td> <td> Negative</td> </tr> <tr> <td>Blood</td> <td>Pos 3+ NA</td> <td>Negative</td> </tr> <tr> <td> Color</td> <td>Yellow NA</td> <td /> </tr> <tr> <td>Glucose, Urine</td> <td>Negative </td> <td> Negative</td> </tr> <tr> <td>Ketones</td> <td> Negative </td> <td>Negative</td> </tr> <tr> <td> Leukocyte Esterase</td> <td>Negative NA</td> <td>Negative</td > </tr> <tr> <td>Nitrites</td> <td>Negative NA</ td> <td>Negative</td> </tr> <tr> <td>pH</td> <td>6.0 NA</td> <td>5.0-8.0</td> </tr> <tr> <td>Protein</td> <td>Pos 1+ NA</td> <td>Negative</td> </tr> <tr> <td>Specific [place]</td> <td>1.020 NA</ td> <td>1.003-1.030</td> </tr> <tr> <td>UA Collection type</td> <td>Clean Catch NA</td> <td /> </ tr> <tr> <td>Urobilinogen</td> <td>Negative mg/dL</td> <td><1.0</td> </tr> <tr> <th colspan="10"> Urine Microscopic - 01/08/17 05:33</th> </tr> <tr> <td> Bacteria</td> <td>Rare NA</td> <td /> </tr> <tr > <td>Epithelial Cells</td> <td>5 /HPF</td> <td /> </tr> <tr> <td>RBC, Urine</td> <td>>50 /HPF</ td> <td>0-2</td> </tr> <tr> <td>WBC, Urine</td> <td>0 /HPF</td> <td>0-4</td> </tr> <tr> <th colspan="10"> Screen, Urine - 01/08/17 05:33</th> </tr> <tr> <td> Screen, Urine</td> <td>Negative NA</ td> <td /> </tr> <tr> <th colspan="10">CBC With Platelet and Differential - 01/08/17 07:07</th> </tr> <tr> <td>Absolute Basophils</td> <td>0.02 10*3/uL</td> <td>0.00- 0.20</td> </tr> <tr> <td>Absolute Eosinophils</td> <td>0.14 10*3/uL</td> <td>0.00-0.50</td> </tr> <tr> <td>Absolute Lymphocytes</td> <td>1.48 10*3/uL</td> < td>0.80-3.30</td> </tr> <tr> <td>Absolute Monocytes</td> <td>0.40 10*3/uL</td> <td>0.30-1.00</td> </tr> <tr> <td>Absolute Neutrophils</td> <td>2.51 10*3/uL</td> <td>1.90-7.00</td> </tr> <tr> <td>Basophils</td> <td>0 %</td> <td>0-2</td> </tr> <tr> <td>Eosinophils</td> <td>3 %</td> <td>0-4</td> </tr > <tr> <td>HCT</td> <td>38.1 %</td> <td> 37.0-47.0</td> </tr> <tr> <td>HGB</td> <td>11.9 g/dL</td> <td>12.0-16.0</td> </tr> <tr> <td> Immature Granulocytes</td> <td>0.0 %</td> <td>0.0-1.0</td > </tr> <tr> <td>Lymphocytes</td> <td>33 %</ td> <td>20-46</td> </tr> <tr> <td>MCH</td> <td>27.8 pg</td> <td>27.0-32.0</td> </tr> <tr> <td>MCHC</td> <td>31.2 g/dL</td> <td>32.0-36.0</td> </tr> <tr> <td>MCV</td> <td>89.0 fL</td> < td>82.0-99.0</td> </tr> <tr> <td>Monocytes</td> <td>9 %</td> <td>4-11</td> </tr> <tr> <td> MPV</td> <td>9.4 fL</td> <td>9.4-12.4</td> </tr> <tr> <td>Neutrophils</td> <td>55 %</td> <td>51- 75</td> </tr> <tr> <td>Nucleated RBC Automated</td> <td>0.0 /100 WBC</td> <td /> </tr> <tr> <td >Platelet Count</td> <td>230 K/uL</td> <td>150-400</td> </tr> <tr> <td>RBC</td> <td>4.28 10*6/uL</td> <td>4.00-5.20</td> </tr> <tr> <td>RDW</td> < td>18.0 %</td> <td>11.5-14.5</td> </tr> <tr> <td>WBC</td> <td>4.6 K/uL</td> <td>4.8-10.8</td> </tr > <tr> <th colspan="10">Comprehensive Metabolic Panel (CMP) - 07:07</th> </tr> <tr> <td>Albumin</td> < td>3.7 g/dL</td> <td>3.5-4.8</td> </tr> <tr> <td >Alkaline Phosphatase</td> <td>62 U/L</td> <td>26-104</td> </tr> <tr> <td>ALT (SGPT)</td> <td>18 U/L</td> <td>14-54</td> </tr> <tr> <td>Anion Gap</td> <td>6 mEq/L</td> <td>3-20</td> </tr> <tr> < td>AST (SGOT)</td> <td>22 U/L</td> <td>15-41</td> </tr > <tr> <td>Bilirubin Total</td> <td>0.5 mg/dL</td> <td>0.2-1.2</td> </tr> <tr> <td>BUN</td> < td>10 mg/dL</td> <td>4-20</td> </tr> <tr> <td> Calcium</td> <td>9.0 mg/dL</td> <td>8.6-10.0</td> </tr > <tr> <td>Chloride</td> <td>106 mEq/L</td> < td>99-109</td> </tr> <tr> <td>CO2</td> <td>26 mEq/L</td> <td>22-32</td> </tr> <tr> <td> Creatinine</td> <td>0.61 mg/dL</td> <td>0.44-1.03</td> </tr> <tr> <td>Globulin</td> <td>3.0 g/dL</td> <td>1.9-4.3</td> </tr> <tr> <td>Glucose</td> < td>91 mg/dL</td> <td>70-100</td> </tr> <tr> <td> Potassium</td> <td>3.9 mEq/L</td> <td>3.6-5.1</td> </tr > <tr> <td>Protein</td> <td>6.7 g/dL</td> <td> 6.1-7.9</td> </tr> <tr> <td>Sodium</td> <td>138 mEq/L</td> <td>136-144</td> </tr> <tr> <th colspan="10">eGFR - 01/08/17 07:07</th> </tr> <tr> <td> eGFR</td> <td>>60 mL/min</td> <td>>60</td> </tr> <tr> <th colspan="10">CBC W/DIFF - 01/31/17 19:22</th> < /tr> <tr> <td>BASOPHIL #</td> <td>0.0 k/cumm</td> <td>0.0-0.2</td> </tr> <tr> <td>BASOPHIL %</td> <td>1 %</td> <td>0-1</td> </tr> <tr> <td>EOSINOPHIL #</td> <td>0.1 k/cumm</td> <td>0.1-0.5</td > </tr> <tr> <td>EOSINOPHIL %</td> <td>1 &# 37;</td> <td>2-4</td> </tr> <tr> <td> GRANULOCYTE #</td> <td>3.2 k/cumm</td> <td>2.0-9.0</td> </tr> <tr> <td>GRANULOCYTE %</td> <td>51 %</ td> <td>50-75</td> </tr> <tr> <td>LYMPHOCYTE #</ td> <td>2.4 k/cumm</td> <td>1.0-4.0</td> </tr> < tr> <td>LYMPHOCYTE %</td> <td>39 %</td> <td> 20-30</td> </tr> <tr> <td>MEAN CELL HGB</td> <td >27.5 pg</td> <td>27.0-33.0</td> </tr> <tr> <td> MEAN CELL HGB CONCENTRATION</td> <td>31.1 g/dL</td> <td>32.0- 37.0</td> </tr> <tr> <td>MEAN CELL VOLUME</td> < td>88.2 fl</td> <td>80.0-100.0</td> </tr> <tr> < td>MONOCYTE #</td> <td>0.5 k/cumm</td> <td>0.1-1.0</td> </tr> <tr> <td>MONOCYTE %</td> <td>8 %</td> <td>4-6</td> </tr> <tr> <td>MEAN PLATELET VOLUME </td> <td>9.2 fl</td> <td>8.5-10.9</td> </tr> < tr> <td>RED BLOOD CELL</td> <td>3.97 m/cumm</td> <td> 4.00-6.00</td> </tr> <tr> <td>RED CELL DISTRIBUTION WIDTH </td> <td>13.3 %</td> <td>11.0-15.6</td> </tr> <tr> <td>WHITE BLOOD CELL</td> <td>6.2 k/cumm</td> <td>5.0-10.0</td> </tr> <tr> <td>HEMOGLOBIN</td> <td>10.9 gm/dL</td> <td>12.0-16.0</td> </tr> <tr> <td>HEMATOCRIT</td> <td>35.0 %</td> <td>37.0-47.0< /td> </tr> <tr> <td>PLATELET COUNT</td> <td>212 k/cumm</td> <td>150-400</td> </tr> <tr> <th colspan="10">METABOLIC PANEL, COMPREHN - 01/31/17 19:22</th> </tr> <tr> <td>POTASSIUM</td> <td>3.2 mmol/L</td> <td>3.5 -5.3</td> </tr> <tr> <td>EST GFR (MDRD)</td> <td >> 60 mL/min</td> <td>> 59</td> </tr> <tr> <td>ANION GAP</td> <td>8 mmol/L</td> <td>5-15</td> </ tr> <tr> <td>EST CrCl (CG)</td> <td>> 60 mL/min</td > <td>> 59</td> </tr> <tr> <td>GLUCOSE</td> <td>89 mg/dL</td> <td>70-99</td> </tr> <tr> <td>CALCIUM</td> <td>8.3 mg/dL</td> <td>8.5-10.1</td> </tr> <tr> <td>BLOOD UREA NITROGEN</td> <td>7 mg/ dL</td> <td>7-20</td> </tr> <tr> <td>CREATININE< /td> <td>0.9 mg/dL</td> <td>0.6-1.0</td> </tr> < tr> <td>SODIUM</td> <td>140 mmol/L</td> <td>135-148</ td> </tr> <tr> <td>CHLORIDE</td> <td>105 mmol/L< /td> <td>98-110</td> </tr> <tr> <td>AST/SGOT</td > <td>17 Units/L</td> <td>10-37</td> </tr> <tr> <td>ALT/SGPT</td> <td>24 Units/L</td> <td>< 66</ td> </tr> <tr> <td>CARBON DIOXIDE</td> <td>27 mmol/L</td> <td>21-32</td> </tr> <tr> <td>TOTAL PROTEIN</td> <td>6.7 gm/dL</td> <td>6.4-8.2</td> </tr> <tr> <td>ALBUMIN</td> <td>3.4 gm/dL</td> <td> 3.4-5.0</td> </tr> <tr> <td>BILI TOTAL</td> <td> 0.1 mg/dL</td> <td>0.0-1.0</td> </tr> <tr> <td> ALKALINE PHOSPHATASE TOTAL</td> <td>85 IU/L</td> <td>45-117</ td> </tr> <tr> <th colspan="10">LIPASE - 01/31/17 19:22</ th> </tr> <tr> <td>LIPASE</td> <td>129 Units/L</ td> <td>73-393</td> </tr> <tr> <th colspan="10"> UR TEST - 01/31/17 19:48</th> </tr> <tr> <td> UR TEST</td> <td>NEGATIVE </td> <td>NEGATIVE</td> </tr> <tr> <th colspan="10">URINALYSIS, ROUTINE - 19:48</th> </tr> <tr> <td>UA COMMENT</td> <td > </td> <td /> </tr> <tr> <td>UA SPECIFIC GRAVITY</td> <td>1.021 </td> <td>1.015-1.025</td> </tr > <tr> <th colspan="10">UA MICROSCOPIC - 01/31/17 19:48</th> </tr> <tr> <td>UA BACTERIA</td> <td>1+ </td> <td>NEGATIVE</td> </tr> <tr> <td>UA EPITHELIAL CELLS </td> <td>2+ epi/hpf</td> <td>0 - 1+</td> </tr> <tr> <td>UA RBC</td> <td>PACKED FIELD rbc/hpf</td> < td>0 - 3</td> </tr> <tr> <td>UA VOLUME FOR EXAM</td> <td>12.0 mL</td> <td>(12mL STD)</td> </tr> <tr> <td>UA WBC</td> <td>20-50 wbc/hpf</td> <td>0 - 5</td> </tr> <tr> <td>WBC CLUMPS</td> <td>PRESENT </td > <td>NEGATIVE</td> </tr> <tr> <th colspan="10"> URINE CULTURE - 01/31/17 19:48</th> </tr> <tr> <td> Microbiology</td> <td> </td> <td /> </tr> <tr> <th colspan="10">WET MOUNT - 01/31/17 21:20</th> </tr> < tr> <td>Microbiology</td> <td> </td> <td /> </ tr> <tr> <th colspan="10">CHLAMYDIA DNA BY PCR - 01/31/17 21:20< /th> </tr> <tr> <td>Microbiology</td> <td> </td > <td /> </tr> <tr> <th colspan="10">WET MOUNT - 02/24/17 19:30</th> </tr> <tr> <td>Microbiology</td> <td> </td> <td /> </tr> <tr> <th colspan ="10">GRAM STAIN - CHLAMYDIA DNA BY PCR - 02/24/17 19:30</th> </tr> <tr> <td>Microbiology</td> <td> </td> <td /> </tr> <tr> <th colspan="10">CBC W/DIFF - 02/24/17 21:00</th> </tr> <tr> <td>BASOPHIL #</td> <td>0.0 k/cumm</ td> <td>0.0-0.2</td> </tr> <tr> <td>BASOPHIL &# 37;</td> <td>1 %</td> <td>0-1</td> </tr> <tr > <td>EOSINOPHIL #</td> <td>0.2 k/cumm</td> <td>0.1- 0.5</td> </tr> <tr> <td>EOSINOPHIL %</td> < td>2 %</td> <td>2-4</td> </tr> <tr> <td> GRANULOCYTE #</td> <td>3.8 k/cumm</td> <td>2.0-9.0</td> </tr> <tr> <td>GRANULOCYTE %</td> <td>53 %</ td> <td>50-75</td> </tr> <tr> <td>LYMPHOCYTE #</ td> <td>2.6 k/cumm</td> <td>1.0-4.0</td> </tr> < tr> <td>LYMPHOCYTE %</td> <td>36 %</td> <td> 20-30</td> </tr> <tr> <td>MEAN CELL HGB</td> <td >27.0 pg</td> <td>27.0-33.0</td> </tr> <tr> <td> MEAN CELL HGB CONCENTRATION</td> <td>31.1 g/dL</td> <td>32.0- 37.0</td> </tr> <tr> <td>MEAN CELL VOLUME</td> < td>86.6 fl</td> <td>80.0-100.0</td> </tr> <tr> < td>MONOCYTE #</td> <td>0.6 k/cumm</td> <td>0.1-1.0</td> </tr> <tr> <td>MONOCYTE %</td> <td>8 %</td> <td>4-6</td> </tr> <tr> <td>MEAN PLATELET VOLUME </td> <td>9.1 fl</td> <td>8.5-10.9</td> </tr> < tr> <td>RED BLOOD CELL</td> <td>4.34 m/cumm</td> <td> 4.00-6.00</td> </tr> <tr> <td>RED CELL DISTRIBUTION WIDTH </td> <td>13.2 %</td> <td>11.0-15.6</td> </tr> <tr> <td>WHITE BLOOD CELL</td> <td>7.2 k/cumm</td> <td>5.0-10.0</td> </tr> <tr> <td>HEMOGLOBIN</td> <td>11.7 gm/dL</td> <td>12.0-16.0</td> </tr> <tr> <td>HEMATOCRIT</td> <td>37.6 %</td> <td>37.0-47.0< /td> </tr> <tr> <td>NRBC %</td> <td>0.0 / 100 WBC</td> <td>0.0-0.0</td> </tr> <tr> <td> NRBC #</td> <td>0.00 k/cumm</td> <td>0.03-0.11</td> </ tr> <tr> <td>PLATELET COUNT</td> <td>278 k/cumm</td> <td>150-400</td> </tr> <tr> <td>IMMATURE GRANULOCYTE %</td> <td>0.3 %</td> <td>0.0-0.6</td> </tr> <tr> <td>IMMATURE GRANULOCYTE #</td> <td> 0.02 k/cumm</td> <td>0.00-0.09</td> </tr> <tr> < th colspan="10">PROTHROMBIN TIME WITH INR - 02/24/17 21:00</th> </tr> <tr> <td>INTERNATIONAL NORMAL RATIO</td> <td>1.1 </td> <td>0.9-1.1</td> </tr> <tr> <td>PROTHROMBIN TIME< /td> <td>12.5 sec</td> <td>10.0-12.8</td> </tr> <tr> <th colspan="10">METABOLIC PANEL, COMPREHN - 02/24/17 21:00</th> </tr> <tr> <td>POTASSIUM</td> <td>3.5 mmol/L</td > <td>3.5-5.3</td> </tr> <tr> <td>EST GFR (MDRD) </td> <td>> 60 mL/min</td> <td>> 59</td> </tr> <tr> <td>ANION GAP</td> <td>9 mmol/L</td> <td>5 -15</td> </tr> <tr> <td>EST CrCl (CG)</td> <td>& gt; 60 mL/min</td> <td>> 59</td> </tr> <tr> < td>GLUCOSE</td> <td>83 mg/dL</td> <td>70-99</td> </tr> <tr> <td>CALCIUM</td> <td>8.5 mg/dL</td> <td> 8.5-10.1</td> </tr> <tr> <td>BLOOD UREA NITROGEN</td> <td>14 mg/dL</td> <td>7-20</td> </tr> <tr> <td>CREATININE</td> <td>0.8 mg/dL</td> <td>0.6-1.0</td> </tr> <tr> <td>SODIUM</td> <td>138 mmol/L</td> <td>135-148</td> </tr> <tr> <td>CHLORIDE</td> <td>101 mmol/L</td> <td>98-110</td> </tr> <tr> <td>AST/SGOT</td> <td>23 Units/L</td> <td>10-37</td> </tr> <tr> <td>ALT/SGPT</td> <td>24 Units/L</td> <td>< 66</td> </tr> <tr> <td>CARBON DIOXIDE</ td> <td>28 mmol/L</td> <td>21-32</td> </tr> <tr > <td>TOTAL PROTEIN</td> <td>7.9 gm/dL</td> <td>6.4- 8.2</td> </tr> <tr> <td>ALBUMIN</td> <td>3.9 gm/ dL</td> <td>3.4-5.0</td> </tr> <tr> <td>BILI TOTAL</td> <td>0.1 mg/dL</td> <td>0.0-1.0</td> </tr> <tr> <td>ALKALINE PHOSPHATASE TOTAL</td> <td>89 IU/L</td > <td>45-117</td> </tr> <tr> <th colspan="10"> CHEM/HEM PROFILE-BEDSIDE - 02/24/17 21:06</th> </tr> <tr> <td>POTASSIUM</td> <td>3.6 mmol/L</td> <td>3.5-5.3</td> </tr> <tr> <td>METHOD</td> <td>Bedside </td> <td /> </tr> <tr> <td>ANION GAP</td> <td>17 mmol/L</td> <td>10-20</td> </tr> <tr> <td>METHOD </td> <td>Bedside </td> <td /> </tr> <tr> <td>GLUCOSE</td> <td>85 mg/dL</td> <td>70-99</td> < /tr> <tr> <td>BLOOD UREA NITROGEN</td> <td>14 mg/dL</td > <td>7-20</td> </tr> <tr> <td>CREATININE</td> <td>0.7 mg/dL</td> <td>0.6-1.0</td> </tr> <tr> <td>HEMOGLOBIN</td> <td>13.3 gm/dL</td> <td>12.0-16.0 </td> </tr> <tr> <td>HEMATOCRIT</td> <td>39.0 &# 37;</td> <td>37.0-47.0</td> </tr> <tr> <td> SODIUM</td> <td>140 mmol/L</td> <td>135-148</td> </tr> <tr> <td>CHLORIDE</td> <td>101 mmol/L</td> < td>98-110</td> </tr> <tr> <td>CARBON DIOXIDE</td> <td>27 mmol/L</td> <td>21-32</td> </tr> <tr> <td>CALCIUM IONIZED</td> <td>4.8 mg/dL</td> <td>4.5-5.3</td> </tr> <tr> <th colspan="10">UR TEST - 02/24/17 22:08</th> </tr> <tr> <td>UR TEST</td> <td>NEGATIVE </td> <td>NEGATIVE</td> </tr> <tr> < colspan="10">URINALYSIS, ROUTINE - 02/24/17 22:08</th> </tr> <tr> <td>UA LEUKOCYTE ESTERASE DIPSTICK</td> <td>1+ </td> <td>NEGATIVE</td> </tr> <tr> <td>UA NITRITE DIPSTICK</td> <td>POSITIVE </td> <td>NEGATIVE</td> </tr > <tr> <td>UA PROTEIN DIPSTICK</td> <td>TRACE </td> <td>NEGATIVE</td> </tr> <tr> <td>UA GLUCOSE DIPSTICK</td> <td>NEGATIVE </td> <td>NEGATIVE</td> </tr > <tr> <td>UA KETONE DIPSTICK</td> <td>TRACE </td> <td>NEGATIVE</td> </tr> <tr> <td>UA UROBILINOGEN DIPSTICK</td> <td>NORMAL </td> <td>NORMAL</td> </tr> <tr> <td>UA BILIRUBIN DIPSTICK</td> <td>POSITIVE </td> <td>NEGATIVE</td> </tr> <tr> <td>UA BLOOD DIPSTICK</td> <td>4+ </td> <td>NEGATIVE</td> </tr> <tr> <td>UA SPECIFIC GRAVITY</td> <td>1.027 </td> <td>1.015-1.025</td> </tr> <tr> <td>UR PH</td> <td>6.0 </td> <td>5.0-7.0</td> </tr> <tr> <th colspan="10">UA MICROSCOPIC - 02/24/17 22:08</th> </tr> <tr> <td>UA BACTERIA</td> <td>4+ </td> <td>NEGATIVE</td> </tr> <tr> <td>UA EPITHELIAL CELLS</td> <td>2+ epi/ hpf</td> <td>0 - 1+</td> </tr> <tr> <td>UA RBC</ td> <td>>100 rbc/hpf</td> <td>0 - 3</td> </tr> <tr> <td>UA VOLUME FOR EXAM</td> <td>12.0 mL</td> <td>(12mL STD)</td> </tr> <tr> <td>UA WBC</td> < td>20-50 wbc/hpf</td> <td>0 - 5</td> </tr> <tr> <td>WBC CLUMPS</td> <td>PRESENT </td> <td>NEGATIVE</td> </tr> <tr> <th colspan="10">URINE CULTURE - 02/24/17 22:08</th > </tr> <tr> <td>Microbiology</td> <td> </td> <td /> </tr> <tr> <th colspan="10">CBC W/DIFF - 03/28/17 05:35</th> </tr> <tr> <td>BASOPHIL #</td> <td>0.0 k/cumm</td> <td>0.0-0.2</td> </tr> <tr> <td>BASOPHIL %</td> <td>1 %</td> <td>0-1</td> </tr> <tr> <td>EOSINOPHIL #</td> <td>0.1 k/cumm</ td> <td>0.1-0.5</td> </tr> <tr> <td>EOSINOPHIL & #37;</td> <td>2 %</td> <td>2-4</td> </tr> < tr> <td>GRANULOCYTE #</td> <td>4.0 k/cumm</td> <td> 2.0-9.0</td> </tr> <tr> <td>GRANULOCYTE %</td> <td>65 %</td> <td>50-75</td> </tr> <tr> <td>LYMPHOCYTE #</td> <td>1.5 k/cumm</td> <td>1.0-4.0</td> </tr> <tr> <td>LYMPHOCYTE %</td> <td>24 %< /td> <td>20-30</td> </tr> <tr> <td>MEAN CELL HGB </td> <td>25.9 pg</td> <td>27.0-33.0</td> </tr> <tr> <td>MEAN CELL HGB CONCENTRATION</td> <td>30.7 g/dL</td> <td>32.0-37.0</td> </tr> <tr> <td>MEAN CELL VOLUME</td> <td>84.5 fl</td> <td>80.0-100.0</td> </tr> <tr> <td>MONOCYTE #</td> <td>0.6 k/cumm</td> <td>0.1-1.0</td> </tr> <tr> <td>MONOCYTE %</td> <td>9 %</td> <td>4-6</td> </tr> <tr> < td>MEAN PLATELET VOLUME</td> <td>9.3 fl</td> <td>8.5-10.9</td > </tr> <tr> <td>RED BLOOD CELL</td> <td>4.13 m/ cumm</td> <td>4.00-6.00</td> </tr> <tr> <td>RED CELL DISTRIBUTION WIDTH</td> <td>14.3 %</td> <td>11.0-15.6 </td> </tr> <tr> <td>WHITE BLOOD CELL</td> <td> 6.2 k/cumm</td> <td>5.0-10.0</td> </tr> <tr> <td >HEMOGLOBIN</td> <td>10.7 gm/dL</td> <td>12.0-16.0</td> </tr> <tr> <td>HEMATOCRIT</td> <td>34.9 %</td> <td>37.0-47.0</td> </tr> <tr> <td>NRBC %</td > <td>0.0 /100 WBC</td> <td>0.0-0.0</td> </tr> < tr> <td>NRBC #</td> <td>0.00 k/cumm</td> <td>0.03- 0.11</td> </tr> <tr> <td>PLATELET COUNT</td> <td >275 k/cumm</td> <td>150-400</td> </tr> <tr> <td >IMMATURE GRANULOCYTE %</td> <td>0.3 %</td> <td>0.0- 0.6</td> </tr> <tr> <td>IMMATURE GRANULOCYTE #</td> <td>0.02 k/cumm</td> <td>0.00-0.09</td> </tr> <tr> <th colspan="10"> TEST, SERUM - 03/28/17 05:35</th> </ tr> <tr> <td> TEST, SERUM</td> <td>NEGATIVE </ td> <td>NEGATIVE</td> </tr> <tr> <th colspan="10 ">CBC W/DIFF - 04/10/17 02:37</th> </tr> <tr> <td> BASOPHIL #</td> <td>0.0 k/cumm</td> <td>0.0-0.2</td> </ tr> <tr> <td>BASOPHIL %</td> <td>1 %</td> <td>0-1</td> </tr> <tr> <td>EOSINOPHIL #</td> <td>0.2 k/cumm</td> <td>0.1-0.5</td> </tr> <tr> <td>EOSINOPHIL %</td> <td>2 %</td> <td>2-4</td> </tr> <tr> <td>GRANULOCYTE #</td> <td>4.5 k/cumm </td> <td>2.0-9.0</td> </tr> <tr> <td> GRANULOCYTE %</td> <td>57 %</td> <td>50-75</td> </tr> <tr> <td>LYMPHOCYTE #</td> <td>2.4 k/cumm</td> <td>1.0-4.0</td> </tr> <tr> <td>LYMPHOCYTE &#37 ;</td> <td>30 %</td> <td>20-30</td> </tr> < tr> <td>MEAN CELL HGB</td> <td>25.6 pg</td> <td>27.0- 33.0</td> </tr> <tr> <td>MEAN CELL HGB CONCENTRATION</td > <td>30.7 g/dL</td> <td>32.0-37.0</td> </tr> < tr> <td>MEAN CELL VOLUME</td> <td>83.3 fl</td> <td> 80.0-100.0</td> </tr> <tr> <td>MONOCYTE #</td> < td>0.8 k/cumm</td> <td>0.1-1.0</td> </tr> <tr> < td>MONOCYTE %</td> <td>10 %</td> <td>4-6</td> < /tr> <tr> <td>MEAN PLATELET VOLUME</td> <td>9.6 fl</td > <td>8.5-10.9</td> </tr> <tr> <td>RED BLOOD CELL</td> <td>3.83 m/cumm</td> <td>4.00-6.00</td> </tr > <tr> <td>RED CELL DISTRIBUTION WIDTH</td> <td>15.2 &# 37;</td> <td>11.0-15.6</td> </tr> <tr> <td> WHITE BLOOD CELL</td> <td>7.9 k/cumm</td> <td>5.0-10.0</td> </tr> <tr> <td>HEMOGLOBIN</td> <td>9.8 gm/dL</td > <td>12.0-16.0</td> </tr> <tr> <td>HEMATOCRIT</ td> <td>31.9 %</td> <td>37.0-47.0</td> </tr> <tr> <td>NRBC %</td> <td>0.0 /100 WBC</td> <td> 0.0-0.0</td> </tr> <tr> <td>NRBC #</td> <td> 0.00 k/cumm</td> <td>0.03-0.11</td> </tr> <tr> < td>PLATELET COUNT</td> <td>234 k/cumm</td> <td>150-400</td> </tr> <tr> <td>IMMATURE GRANULOCYTE %</td> < td>0.3 %</td> <td>0.0-0.6</td> </tr> <tr> < td>IMMATURE GRANULOCYTE #</td> <td>0.02 k/cumm</td> <td>0.00- 0.09</td> </tr> <tr> <th colspan="10">METABOLIC PANEL, BASIC - 04/10/17 02:37</th> </tr> <tr> <td>POTASSIUM</td > <td>2.9 mmol/L</td> <td>3.5-5.3</td> </tr> <tr > <td>EST GFR (MDRD)</td> <td>> 60 mL/min</td> <td >> 59</td> </tr> <tr> <td>ANION GAP</td> <td> 9 mmol/L</td> <td>5-15</td> </tr> <tr> <td>EST CrCl (CG)</td> <td>> 60 mL/min</td> <td>> 59</td> </tr> <tr> <td>GLUCOSE</td> <td>113 mg/dL</td> <td>70-99</td> </tr> <tr> <td>CALCIUM</td> < td>8.5 mg/dL</td> <td>8.5-10.1</td> </tr> <tr> < td>BLOOD UREA NITROGEN</td> <td>8 mg/dL</td> <td>7-20</td> </tr> <tr> <td>CREATININE</td> <td>0.6 mg/dL</td> <td>0.6-1.0</td> </tr> <tr> <td>SODIUM</td> <td>138 mmol/L</td> <td>135-148</td> </tr> <tr> <td>CHLORIDE</td> <td>102 mmol/L</td> <td>98-110</td> </tr> <tr> <td>CARBON DIOXIDE</td> <td>27 mmol/ L</td> <td>21-32</td> </tr> <tr> <th colspan="10 ">URINALYSIS, ROUTINE - 04/29/17 11:15</th> </tr> <tr> < td>UA LEUKOCYTE ESTERASE DIPSTICK</td> <td>1+ </td> <td> NEGATIVE</td> </tr> <tr> <td>UA NITRITE DIPSTICK</td> <td>POSITIVE </td> <td>NEGATIVE</td> </tr> <tr> <td>UA PROTEIN DIPSTICK</td> <td>TRACE </td> <td> NEGATIVE</td> </tr> <tr> <td>UA GLUCOSE DIPSTICK</td> <td>NEGATIVE </td> <td>NEGATIVE</td> </tr> <tr> <td>UA KETONE DIPSTICK</td> <td>NEGATIVE </td> <td> NEGATIVE</td> </tr> <tr> <td>UA UROBILINOGEN DIPSTICK</td > <td>NORMAL </td> <td>NORMAL</td> </tr> <tr> <td>UA BILIRUBIN DIPSTICK</td> <td>NEGATIVE </td> <td> NEGATIVE</td> </tr> <tr> <td>UA BLOOD DIPSTICK</td> <td>3+ </td> <td>NEGATIVE</td> </tr> <tr> < td>UA SPECIFIC GRAVITY</td> <td>1.020 </td> <td>1.015-1.025</ td> </tr> <tr> <td>UR PH</td> <td>6.0 </td> <td>5.0-7.0</td> </tr> <tr> < colspan="10">UA MICROSCOPIC - 04/29/17 11:15</th> </tr> <tr> <td>UA BACTERIA</td> <td>5+ </td> <td>NEGATIVE</td> </tr> <tr> <td>UA EPITHELIAL CELLS</td> <td>4+ epi/hpf</td> <td>0 - 1+</td> </tr> <tr> <td>UA RBC</td> <td>>100 rbc/hpf</td> <td>0 - 3</td> </tr> <tr> <td>UA VOLUME FOR EXAM</td> <td>12.0 mL</td> <td>(12mL STD)</td> </tr> <tr> <td>UA WBC</td> <td>> 100 wbc/hpf</td> <td>0 - 5</td> </tr> <tr> <td> WBC CLUMPS</td> <td>PRESENT </td> <td>NEGATIVE</td> </ tr> <tr> <th colspan="10">UR TEST - 04/29/17 11:15</th > </tr> <tr> <td>UR TEST</td> <td> NEGATIVE </td> <td>NEGATIVE</td> </tr> <tr> <th colspan="10">URINE CULTURE - 04/29/17 11:15</th> </tr> <tr> <td>Microbiology</td> <td> </td> <td /> </tr> <tr> <th colspan="10">METABOLIC PANEL, BASIC - 04/29/17 11:24</th> </tr> <tr> <td>POTASSIUM</td> <td>3.8 mmol/L</td > <td>3.5-5.3</td> </tr> <tr> <td>EST GFR (MDRD) </td> <td>> 60 mL/min</td> <td>> 59</td> </tr> <tr> <td>ANION GAP</td> <td>6 mmol/L</td> <td>5 -15</td> </tr> <tr> <td>EST CrCl (CG)</td> <td>& gt; 60 mL/min</td> <td>> 59</td> </tr> <tr> < td>GLUCOSE</td> <td>107 mg/dL</td> <td>70-99</td> </tr > <tr> <td>CALCIUM</td> <td>8.6 mg/dL</td> <td >8.5-10.1</td> </tr> <tr> <td>BLOOD UREA NITROGEN</td> <td>10 mg/dL</td> <td>7-20</td> </tr> <tr> <td>CREATININE</td> <td>0.8 mg/dL</td> <td>0.6-1.0</td> </tr> <tr> <td>SODIUM</td> <td>140 mmol/L</td> <td>135-148</td> </tr> <tr> <td>CHLORIDE</td> <td>105 mmol/L</td> <td>98-110</td> </tr> <tr> <td>CARBON DIOXIDE</td> <td>29 mmol/L</td> <td>21-32</ td> </tr> <tr> < colspan="10">CBC W/DIFF - 04/29/17 11: 24</th> </tr> <tr> <td>BASOPHIL #</td> <td>0.0 k /cumm</td> <td>0.0-0.2</td> </tr> <tr> <td> BASOPHIL %</td> <td>0.8 %</td> <td>0-1</td> </ tr> <tr> <td>EOSINOPHIL #</td> <td>0.1 k/cumm</td> <td>0.1-0.5</td> </tr> <tr> <td>EOSINOPHIL %</ td> <td>1.0 %</td> <td>2-4</td> </tr> <tr> <td>GRANULOCYTE #</td> <td>2.8 k/cumm</td> <td>2.0- 9.0</td> </tr> <tr> <td>GRANULOCYTE %</td> < td>57.7 %</td> <td>50-75</td> </tr> <tr> <td >LYMPHOCYTE #</td> <td>1.7 k/cumm</td> <td>1.0-4.0</td> </tr> <tr> <td>LYMPHOCYTE %</td> <td>34.2 %</ td> <td>20-30</td> </tr> <tr> <td>MEAN CELL HGB< /td> <td>24.9 pg</td> <td>27.0-33.0</td> </tr> < tr> <td>MEAN CELL HGB CONCENTRATION</td> <td>30.3 g/dL</td> <td>32.0-37.0</td> </tr> <tr> <td>MEAN CELL VOLUME</td> <td>82.2 fl</td> <td>80.0-100.0</td> </tr> <tr> <td>MONOCYTE #</td> <td>0.3 k/cumm</td> <td>0.1-1.0</td> </tr> <tr> <td>MONOCYTE %</td> <td>6.1 %</td> <td>4-6</td> </tr> <tr> <td>MEAN PLATELET VOLUME</td> <td>9.0 fl</td> <td>8.5-10.9</td > </tr> <tr> <td>RED BLOOD CELL</td> <td>4.21 m/ cumm</td> <td>4.00-6.00</td> </tr> <tr> <td>RED CELL DISTRIBUTION WIDTH</td> <td>15.7 %</td> <td>11.0-15.6 </td> </tr> <tr> <td>WHITE BLOOD CELL</td> <td> 4.9 k/cumm</td> <td>5.0-10.0</td> </tr> <tr> <td >HEMOGLOBIN</td> <td>10.5 gm/dL</td> <td>12.0-16.0</td> </tr> <tr> <td>HEMATOCRIT</td> <td>34.6 %</td> <td>37.0-47.0</td> </tr> <tr> <td>NRBC %</td > <td>0.0 /100 WBC</td> <td>0.0-0.0</td> </tr> < tr> <td>NRBC #</td> <td>0.00 k/cumm</td> <td>0.03- 0.11</td> </tr> <tr> <td>PLATELET COUNT</td> <td >296 k/cumm</td> <td>150-400</td> </tr> <tr> <td >IMMATURE GRANULOCYTE %</td> <td>0.2 %</td> <td>0.0- 0.6</td> </tr> <tr> <td>IMMATURE GRANULOCYTE #</td> <td>0.01 k/cumm</td> <td>0.00-0.09</td> </tr> <tr> < colspan="10">CBC W/DIFF - 06/30/17 23:44</th> </tr> < tr> <td>BASOPHIL #</td> <td>0.1 k/cumm</td> <td>0.0- 0.2</td> </tr> <tr> <td>BASOPHIL %</td> <td> 1.0 %</td> <td>0-1</td> </tr> <tr> <td> GRANULOCYTE #</td> <td>11.0 k/cumm</td> <td>2.0-9.0</td> </tr> <tr> <td>LYMPHOCYTE #</td> <td>1.6 k/cumm</td > <td>1.0-4.0</td> </tr> <tr> <td>LYMPHOCYTE &# 37;</td> <td>11.0 %</td> <td>20-30</td> </tr> <tr> <td>MEAN CELL HGB</td> <td>23.3 pg</td> <td> 27.0-33.0</td> </tr> <tr> <td>MEAN CELL HGB CONCENTRATION </td> <td>30.2 g/dL</td> <td>32.0-37.0</td> </tr> <tr> <td>MEAN CELL VOLUME</td> <td>77.3 fl</td> < td>80.0-100.0</td> </tr> <tr> <td>MONOCYTE #</td> <td>1.6 k/cumm</td> <td>0.1-1.0</td> </tr> <tr> <td>MONOCYTE %</td> <td>11.0 %</td> <td>4-6</td> </tr> <tr> <td>MEAN PLATELET VOLUME</td> <td> 9.9 fl</td> <td>8.5-10.9</td> </tr> <tr> <td> OVALOCYTES</td> <td>NOTED </td> <td /> </tr> <tr > <td>RED BLOOD CELL</td> <td>4.50 m/cumm</td> <td> 4.00-6.00</td> </tr> <tr> <td>RED CELL DISTRIBUTION WIDTH </td> <td>16.8 %</td> <td>11.0-15.6</td> </tr> <tr> <td>WHITE BLOOD CELL</td> <td>14.3 k/cumm</td> <td>5.0-10.0</td> </tr> <tr> <td>HEMOGLOBIN</td> <td>10.5 gm/dL</td> <td>12.0-16.0</td> </tr> <tr> <td>HEMATOCRIT</td> <td>34.8 %</td> <td>37.0-47.0 </td> </tr> <tr> <td>NRBC %</td> <td>0.0 / 100 WBC</td> <td>0.0-0.0</td> </tr> <tr> <td> PLATELET COUNT</td> <td>235 k/cumm</td> <td>150-400</td> </tr> <tr> <td>IMMATURE GRANULOCYTE %</td> <td> 0.4 %</td> <td>0.0-0.6</td> </tr> <tr> <td> IMMATURE GRANULOCYTE #</td> <td>0.05 k/cumm</td> <td>0.00-0.09 </td> </tr> <tr> <th colspan="10">MANUAL DIFF(R) - 23:44</th> </tr> <tr> <td>BAND %</td> <td >3 %</td> <td>0-10</td> </tr> <tr> <td> DIFFERENTIAL</td> <td>MANUAL </td> <td /> </tr> <tr> <td>SEGMENTED NEUTROPHIL %</td> <td>74 %</td> <td>50-70</td> </tr> <tr> <th colspan="10"> HEPATIC FUNCTION PANEL - 06/30/17 23:44</th> </tr> <tr> < td>BILI UNCONJUGATED</td> <td>0.3 mg/dL</td> <td>0.0-0.7</td> </tr> <tr> <td>AST/SGOT</td> <td>59 Units/L</td > <td>10-37</td> </tr> <tr> <td>ALT/SGPT</td> <td>35 Units/L</td> <td>< 66</td> </tr> <tr> <td>TOTAL PROTEIN</td> <td>8.0 gm/dL</td> <td>6.4-8.2 </td> </tr> <tr> <td>ALBUMIN</td> <td>3.5 gm/dL< /td> <td>3.4-5.0</td> </tr> <tr> <td>BILI TOTAL< /td> <td>0.4 mg/dL</td> <td>0.0-1.0</td> </tr> < tr> <td>ALKALINE PHOSPHATASE TOTAL</td> <td>121 IU/L</td> <td>45-117</td> </tr> <tr> <td>BILI CONJUGATED</td > <td>0.1 mg/dL</td> <td>0.0-0.3</td> </tr> <tr > <th colspan="10">LIPASE - 06/30/17 23:44</th> </tr> <tr > <td>LIPASE</td> <td>62 Units/L</td> <td>73-393</td > </tr> <tr> <th colspan="10">CHEM/HEM PROFILE-BEDSIDE - 06/30/17 23:45</th> </tr> <tr> <td>POTASSIUM</td> <td>3.5 mmol/L</td> <td>3.5-5.3</td> </tr> <tr> <td>METHOD</td> <td>Bedside </td> <td /> </tr> <tr> <td>ANION GAP</td> <td>17 mmol/L</td> <td>10 -20</td> </tr> <tr> <td>METHOD</td> <td>Bedside </td> <td /> </tr> <tr> <td>GLUCOSE</td> <td>114 mg/dL</td> <td>70-99</td> </tr> <tr> <td>BLOOD UREA NITROGEN</td> <td>10 mg/dL</td> <td>7-20</td> </tr> <tr> <td>CREATININE</td> <td>0.7 mg/dL</td > <td>0.6-1.0</td> </tr> <tr> <td>HEMOGLOBIN</td > <td>12.6 gm/dL</td> <td>12.0-16.0</td> </tr> < tr> <td>HEMATOCRIT</td> <td>37.0 %</td> <td>37.0- 47.0</td> </tr> <tr> <td>SODIUM</td> <td>137 mmol/L</td> <td>135-148</td> </tr> <tr> <td> CHLORIDE</td> <td>99 mmol/L</td> <td>98-110</td> </tr> <tr> <td>CARBON DIOXIDE</td> <td>24 mmol/L</td> <td>21-32</td> </tr> <tr> <td>CALCIUM IONIZED</td> <td>4.3 mg/dL</td> <td>4.5-5.3</td> </tr> <tr> <th colspan="10">URINALYSIS, ROUTINE - 06/30/17 23:47</th> </tr> <tr> <td>UA LEUKOCYTE ESTERASE DIPSTICK</td> <td>1+ </ td> <td>NEGATIVE</td> </tr> <tr> <td>UA NITRITE DIPSTICK</td> <td>POSITIVE </td> <td>NEGATIVE</td> </tr > <tr> <td>UA PROTEIN DIPSTICK</td> <td>3+ </td> <td>NEGATIVE</td> </tr> <tr> <td>UA GLUCOSE DIPSTICK< /td> <td>NEGATIVE </td> <td>NEGATIVE</td> </tr> <tr> <td>UA KETONE DIPSTICK</td> <td>TRACE </td> <td> NEGATIVE</td> </tr> <tr> <td>UA UROBILINOGEN DIPSTICK</td > <td>2+ </td> <td>NORMAL</td> </tr> <tr> <td>UA BILIRUBIN DIPSTICK</td> <td>1+ </td> <td>NEGATIVE</ td> </tr> <tr> <td>UA BLOOD DIPSTICK</td> <td>3 + </td> <td>NEGATIVE</td> </tr> <tr> <td>UA SPECIFIC GRAVITY</td> <td>1.025 </td> <td>1.015-1.025</td> </tr> <tr> <td>UR PH</td> <td>6.0 </td> < td>5.0-7.0</td> </tr> <tr> < colspan="10">UA MICROSCOPIC - 06/30/17 23:47</th> </tr> <tr> <td>UA BACTERIA</td> <td>4+ </td> <td>NEGATIVE</td> </tr> <tr> <td>UA EPITHELIAL CELLS</td> <td>4+ epi/hpf</td> <td>0 - 1+</td> </tr> <tr> <td>UA MUCUS</td> <td>3+ </td> <td>NEG TO 1+</td> </tr> <tr> < td>UA RBC</td> <td>0-3 rbc/hpf</td> <td>0 - 3</td> </tr > <tr> <td>UA VOLUME FOR EXAM</td> <td>12.0 mL</td> <td>(12mL STD)</td> </tr> <tr> <td>UA WBC</td> <td>PACKED FIELD wbc/hpf</td> <td>0 - 5</td> </tr> <tr> <th colspan="10">UR TEST - 06/30/17 23:47</th> </tr> <tr> <td>UR TEST</td> <td>NEGATIVE </td > <td>NEGATIVE</td> </tr> <tr> <th colspan="10"> URINE CULTURE - 06/30/17 23:47</th> </tr> <tr> <td> Microbiology</td> <td> </td> <td /> </tr> <tr> <th colspan="10">CBC W/DIFF - 07/01/17 12:17</th> </tr> < tr> <td>GRANULOCYTE #</td> <td>9.8 k/cumm</td> <td> 2.0-9.0</td> </tr> <tr> <td>LYMPHOCYTE #</td> < td>1.3 k/cumm</td> <td>1.0-4.0</td> </tr> <tr> < td>LYMPHOCYTE %</td> <td>10.0 %</td> <td>20-30</td> </tr> <tr> <td>MEAN CELL HGB</td> <td>23.4 pg</td > <td>27.0-33.0</td> </tr> <tr> <td>MEAN CELL HGB CONCENTRATION</td> <td>30.2 g/dL</td> <td>32.0-37.0</td> </tr> <tr> <td>MEAN CELL VOLUME</td> <td>77.3 fl </td> <td>80.0-100.0</td> </tr> <tr> <td> MONOCYTE #</td> <td>1.5 k/cumm</td> <td>0.1-1.0</td> </ tr> <tr> <td>MONOCYTE %</td> <td>12.0 %</td> <td>4-6</td> </tr> <tr> <td>MEAN PLATELET VOLUME< /td> <td>9.6 fl</td> <td>8.5-10.9</td> </tr> <tr > <td>OVALOCYTES</td> <td>NOTED </td> <td /> < /tr> <tr> <td>RED BLOOD CELL</td> <td>4.19 m/cumm</td> <td>4.00-6.00</td> </tr> <tr> <td>RED CELL DISTRIBUTION WIDTH</td> <td>16.6 %</td> <td>11.0-15.6</td > </tr> <tr> <td>WHITE BLOOD CELL</td> <td>12.5 k/cumm</td> <td>5.0-10.0</td> </tr> <tr> <td> HEMOGLOBIN</td> <td>9.8 gm/dL</td> <td>12.0-16.0</td> < /tr> <tr> <td>HEMATOCRIT</td> <td>32.4 %</td> <td>37.0-47.0</td> </tr> <tr> <td>NRBC %</td> <td>0.0 /100 WBC</td> <td>0.0-0.0</td> </tr> <tr > <td>PLATELET COUNT</td> <td>190 k/cumm</td> <td>150 -400</td> </tr> <tr> <td>IMMATURE GRANULOCYTE %</td> <td>0.5 %</td> <td>0.0-0.6</td> </tr> <tr> <td>IMMATURE GRANULOCYTE #</td> <td>0.06 k/cumm</td> <td>0.00-0.09</td> </tr> <tr> < colspan="10">MANUAL DIFF(R) - 07/01/17 12:17</th> </tr> <tr> <td>BAND %</ td> <td>5 %</td> <td>0-10</td> </tr> <tr> <td>DIFFERENTIAL</td> <td>MANUAL </td> <td /> < /tr> <tr> <td>SEGMENTED NEUTROPHIL %</td> <td>73 &# 37;</td> <td>50-70</td> </tr> <tr> < colspan= "10">CHEM/HEM PROFILE-BEDSIDE - 07/01/17 12:34</th> </tr> <tr> <td>POTASSIUM</td> <td>3.3 mmol/L</td> <td>3.5-5.3</td > </tr> <tr> <td>METHOD</td> <td>Bedside </td> <td /> </tr> <tr> <td>ANION GAP</td> < td>15 mmol/L</td> <td>10-20</td> </tr> <tr> <td> METHOD</td> <td>Bedside </td> <td /> </tr> <tr> <td>GLUCOSE</td> <td>106 mg/dL</td> <td>70-99</td> </tr> <tr> <td>BLOOD UREA NITROGEN</td> <td>10 mg/dL</td> <td>7-20</td> </tr> <tr> <td> CREATININE</td> <td>0.8 mg/dL</td> <td>0.6-1.0</td> </ tr> <tr> <td>HEMOGLOBIN</td> <td>11.9 gm/dL</td> <td>12.0-16.0</td> </tr> <tr> <td>HEMATOCRIT</td> <td>35.0 %</td> <td>37.0-47.0</td> </tr> <tr> <td>SODIUM</td> <td>134 mmol/L</td> <td>135-148</td > </tr> <tr> <td>CHLORIDE</td> <td>99 mmol/L</td > <td>98-110</td> </tr> <tr> <td>CARBON DIOXIDE< /td> <td>24 mmol/L</td> <td>21-32</td> </tr> <tr > <td>CALCIUM IONIZED</td> <td>4.3 mg/dL</td> <td>4.5 -5.3</td> </tr> <tr> < colspan="10">URINALYSIS, ROUTINE - 07/01/17 13:53</th> </tr> <tr> <td>UA LEUKOCYTE ESTERASE DIPSTICK</td> <td>1+ </td> <td>NEGATIVE</td > </tr> <tr> <td>UA NITRITE DIPSTICK</td> <td> NEGATIVE </td> <td>NEGATIVE</td> </tr> <tr> <td> UA PROTEIN DIPSTICK</td> <td>2+ </td> <td>NEGATIVE</td> </tr> <tr> <td>UA GLUCOSE DIPSTICK</td> <td>NEGATIVE </td> <td>NEGATIVE</td> </tr> <tr> <td>UA KETONE DIPSTICK</td> <td>2+ </td> <td>NEGATIVE</td> </ tr> <tr> <td>UA UROBILINOGEN DIPSTICK</td> <td>3+ </td > <td>NORMAL</td> </tr> <tr> <td>UA BILIRUBIN DIPSTICK</td> <td>1+ </td> <td>NEGATIVE</td> </tr> <tr> <td>UA BLOOD DIPSTICK</td> <td>2+ </td> <td> NEGATIVE</td> </tr> <tr> <td>UA SPECIFIC GRAVITY</td> <td>1.015 </td> <td>1.015-1.025</td> </tr> <tr> <td>UR PH</td> <td>6.5 </td> <td>5.0-7.0</td> < /tr> <tr> < colspan="10">UA MICROSCOPIC - 07/01/17 13:53</th> </tr> <tr> <td>UA BACTERIA</td> <td>1+ </td> <td>NEGATIVE</td> </tr> <tr> <td>UA EPITHELIAL CELLS</td> <td>2+ epi/hpf</td> <td>0 - 1+</td> </tr> <tr> <td>UA MUCUS</td> <td>1+ </td> <td>NEG TO 1+</td> </tr> <tr> <td>UA RBC</td> <td>3-5 rbc/ hpf</td> <td>0 - 3</td> </tr> <tr> <td>UA VOLUME FOR EXAM</td> <td>12.0 mL</td> <td>(12mL STD)</td> </tr> <tr> <td>UA WBC</td> <td>50-100 wbc/hpf</td> <td>0 - 5</td> </tr> <tr> < colspan="10"> LACTIC ACID - 07/01/17 14:06</th> </tr> <tr> <td>LACTIC ACID</td> <td>1.0 mmol/L</td> <td>0.5-2.0</td> </tr> <tr> < colspan="10">BLOOD CULTURE - 07/01/17 14:50</th> </tr> <tr> <td>Microbiology</td> <td> </td> < td /> </tr> <tr> < colspan="10">BLOOD CULTURE - 14:58</th> </tr> <tr> <td>Microbiology</td> < td> </td> <td /> </tr> <tr> < colspan="10">UR DRUGS OF ABUSE SCREEN - 07/01/17 18:10</th> </tr> <tr> < td>UR AMPHETAMINES SCREEN</td> <td>POS (>1000 ng/mL) </td> <td>NEGATIVE</td> </tr> <tr> <td>UR BARBITURATE SCREEN< /td> <td>NEG (< 200 ng/mL) </td> <td>NEGATIVE</td> </tr> <tr> <td>DRUGS OF ABUSE SCREEN COMMENT</td> <td>* </td> <td /> </tr> <tr> <td>UR OPIATES SCREEN</td> <td>POS (> 300 ng/mL) </td> <td>NEGATIVE</td> </tr> <tr> <td>UR PHENCYCLIDINE (PCP) SCREEN</td> <td>NEG (< 25 ng/mL) </td> <td>NEGATIVE</td> </tr> <tr> <td>UR CANNABINOIDS (THC) SCREEN</td> <td>NEG (< 50 ng/mL) </td> <td>NEGATIVE</td> </tr> <tr> < td>UR COCAINE METABOLITE SCREEN</td> <td>NEG (< 300 ng/mL) </td> <td>NEGATIVE</td> </tr> <tr> <td>UR METHADONE SCREEN</td> <td>NEG (< 300 ng/mL) </td> <td>NEGATIVE</td> </tr> <tr> <td>UR BENZODIAZEPINE SCREEN</td> < td>POS (> 200 ng/mL) </td> <td>NEGATIVE</td> </tr> < tr> <th colspan="10">URINE CULTURE - 07/01/17 18:10</th> </tr> <tr> <td>Microbiology</td> <td> </td> <td /> </tr> <tr> <th colspan="10">CALCIUM IONIZED - 07/02/17 04 :23</th> </tr> <tr> <td>CALCIUM IONIZED</td> <td >4.3 mg/dL</td> <td>4.5-5.3</td> </tr> <tr> < colspan="10">CBC W/DIFF - 07/02/17 04:23</th> </tr> <tr> <td>BASOPHIL #</td> <td>0.0 k/cumm</td> <td>0.0-0.2</td> </tr> <tr> <td>BASOPHIL %</td> <td>0.3 %</td > <td>0-1</td> </tr> <tr> <td>EOSINOPHIL #</td> <td>0.0 k/cumm</td> <td>0.1-0.5</td> </tr> <tr > <td>EOSINOPHIL %</td> <td>0.3 %</td> <td>2- 4</td> </tr> <tr> <td>GRANULOCYTE #</td> <td> 5.6 k/cumm</td> <td>2.0-9.0</td> </tr> <tr> <td> GRANULOCYTE %</td> <td>73.3 %</td> <td>50-75</td> </tr> <tr> <td>LYMPHOCYTE #</td> <td>0.9 k/cumm</td > <td>1.0-4.0</td> </tr> <tr> <td>LYMPHOCYTE &# 37;</td> <td>11.3 %</td> <td>20-30</td> </tr> <tr> <td>MEAN CELL HGB</td> <td>23.4 pg</td> <td> 27.0-33.0</td> </tr> <tr> <td>MEAN CELL HGB CONCENTRATION </td> <td>29.0 g/dL</td> <td>32.0-37.0</td> </tr> <tr> <td>MEAN CELL VOLUME</td> <td>80.7 fl</td> < td>80.0-100.0</td> </tr> <tr> <td>MONOCYTE #</td> <td>1.1 k/cumm</td> <td>0.1-1.0</td> </tr> <tr> <td>MONOCYTE %</td> <td>14.5 %</td> <td>4-6</td> </tr> <tr> <td>MEAN PLATELET VOLUME</td> <td> 10.4 fl</td> <td>8.5-10.9</td> </tr> <tr> <td> RED BLOOD CELL</td> <td>3.21 m/cumm</td> <td>4.00-6.00</td> </tr> <tr> <td>RED CELL DISTRIBUTION WIDTH</td> < td>16.9 %</td> <td>11.0-15.6</td> </tr> <tr> <td>WHITE BLOOD CELL</td> <td>7.6 k/cumm</td> <td>5.0-10.0</ td> </tr> <tr> <td>HEMOGLOBIN</td> <td>7.5 gm/dL </td> <td>12.0-16.0</td> </tr> <tr> <td> HEMATOCRIT</td> <td>25.9 %</td> <td>37.0-47.0</td> </tr> <tr> <td>NRBC %</td> <td>0.0 /100 WBC</td> <td>0.0-0.0</td> </tr> <tr> <td>PLATELET COUNT</ td> <td>131 k/cumm</td> <td>150-400</td> </tr> < tr> <td>IMMATURE GRANULOCYTE %</td> <td>0.3 %</td> <td>0.0-0.6</td> </tr> <tr> <td>IMMATURE GRANULOCYTE #</td> <td>0.02 k/cumm</td> <td>0.00-0.09</td> </tr> <tr> <td>IMMATURE PLATELET FRACTION</td> <td >2.8 %</td> <td>1.1-6.1</td> </tr> <tr> <th colspan="10">RENAL FUNCTION PANEL - 07/02/17 04:23</th> </tr> <tr > <td>POTASSIUM</td> <td>3.2 mmol/L</td> <td>3.5-5.3< /td> </tr> <tr> <td>EST GFR (MDRD)</td> <td>&gt ; 60 mL/min</td> <td>> 59</td> </tr> <tr> <td >ANION GAP</td> <td>7 mmol/L</td> <td>5-15</td> </tr> <tr> <td>EST CrCl (CG)</td> <td>> 60 mL/min</td> <td>> 59</td> </tr> <tr> <td>GLUCOSE</td> <td>131 mg/dL</td> <td>70-99</td> </tr> <tr> <td>CALCIUM</td> <td>7.0 mg/dL</td> <td>8.5-10.1</td> </tr> <tr> <td>BLOOD UREA NITROGEN</td> <td>6 mg/dL< /td> <td>7-20</td> </tr> <tr> <td>CREATININE</td > <td>0.7 mg/dL</td> <td>0.6-1.0</td> </tr> <tr > <td>SODIUM</td> <td>139 mmol/L</td> <td>135-148</td > </tr> <tr> <td>CHLORIDE</td> <td>110 mmol/L</ td> <td>98-110</td> </tr> <tr> <td>CARBON DIOXIDE</td> <td>22 mmol/L</td> <td>21-32</td> </tr> <tr> <td>ALBUMIN</td> <td>2.2 gm/dL</td> <td> 3.4-5.0</td> </tr> <tr> <td>PHOSPHORUS</td> <td> 1.0 mg/dL</td> <td>2.5-4.9</td> </tr> <tr> <th colspan="10">MAGNESIUM - 07/02/17 04:23</th> </tr> <tr> < td>MAGNESIUM</td> <td>1.6 mg/dL</td> <td>1.8-2.4</td> < /tr> <tr> < colspan="10">FERRITIN - 07/02/17 04:23</th> </tr> <tr> <td>FERRITIN</td> <td>48 ng/mL</td> <td>8-252</td> </tr> <tr> < colspan="10">IRON W/ BINDING CAPACITY - 07/02/17 04:23</th> </tr> <tr> <td> IRON SATURATION</td> <td>3 % SAT</td> <td>11-46</td> </tr> <tr> <td>IRON BINDING CAPACITY, TOTAL</td> <td >240 mcg/dL</td> <td>250-450</td> </tr> <tr> <td >IRON</td> <td>8 mcg/dL</td> <td>35-150</td> </tr> <tr> < colspan="10">LACTIC ACID - 07/02/17 08:47</th> </tr > <tr> <td>LACTIC ACID</td> <td>0.7 mmol/L</td> <td>0.5-2.0</td> </tr> <tr> < colspan="10">CBC - 11/11 12:42</th> </tr> <tr> <td>MEAN CELL HGB</td> <td>23.4 pg</td> <td>27.0-33.0</td> </tr> <tr> <td>MEAN CELL HGB CONCENTRATION</td> <td>28.7 g/dL</td> < td>32.0-37.0</td> </tr> <tr> <td>MEAN CELL VOLUME</td> <td>81.4 fl</td> <td>80.0-100.0</td> </tr> <tr> <td>MEAN PLATELET VOLUME</td> <td>10.1 fl</td> <td> 8.5-10.9</td> </tr> <tr> <td>RED BLOOD CELL</td> <td>3.34 m/cumm</td> <td>4.00-6.00</td> </tr> <tr> <td>RED CELL DISTRIBUTION WIDTH</td> <td>17.0 %</td> <td>11.0-15.6</td> </tr> <tr> <td>WHITE BLOOD CELL</td > <td>7.3 k/cumm</td> <td>5.0-10.0</td> </tr> < tr> <td>HEMOGLOBIN</td> <td>7.8 gm/dL</td> <td>12.0- 16.0</td> </tr> <tr> <td>HEMATOCRIT</td> <td> 27.2 %</td> <td>37.0-47.0</td> </tr> <tr> < td>NRBC %</td> <td>0.0 /100 WBC</td> <td>0.0-0.0</td> </tr> <tr> <td>PLATELET COUNT</td> <td>147 k/cumm</ td> <td>150-400</td> </tr> <tr> <td>IMMATURE PLATELET FRACTION</td> <td>1.9 %</td> <td>1.1-6.1</td> </tr> <tr> <th colspan="10">RENAL FUNCTION PANEL - 12:42</th> </tr> <tr> <td>POTASSIUM</td> <td> 4.6 mmol/L</td> <td>3.5-5.3</td> </tr> <tr> <td> EST GFR (MDRD)</td> <td>> 60 mL/min</td> <td>> 59</td> </tr> <tr> <td>ANION GAP</td> <td>6 mmol/L</td> <td>5-15</td> </tr> <tr> <td>EST CrCl (CG)</td > <td>> 60 mL/min</td> <td>> 59</td> </tr> <tr> <td>GLUCOSE</td> <td>85 mg/dL</td> <td>70-99</ td> </tr> <tr> <td>CALCIUM</td> <td>7.6 mg/dL</ td> <td>8.5-10.1</td> </tr> <tr> <td>BLOOD UREA NITROGEN</td> <td>4 mg/dL</td> <td>7-20</td> </tr> <tr> <td>CREATININE</td> <td>0.6 mg/dL</td> <td> 0.6-1.0</td> </tr> <tr> <td>SODIUM</td> <td>141 mmol/L</td> <td>135-148</td> </tr> <tr> <td> CHLORIDE</td> <td>112 mmol/L</td> <td>98-110</td> </tr > <tr> <td>CARBON DIOXIDE</td> <td>23 mmol/L</td> <td>21-32</td> </tr> <tr> <td>ALBUMIN</td> <td>2.3 gm/dL</td> <td>3.4-5.0</td> </tr> <tr> < td>PHOSPHORUS</td> <td>3.8 mg/dL</td> <td>2.5-4.9</td> </tr> <tr> < colspan="10">CBC W/DIFF - 12/19/17 03:11</th> </tr> <tr> <td>BASOPHIL #</td> <td>0.1 k/cumm</td > <td>0.0-0.2</td> </tr> <tr> <td>BASOPHIL % </td> <td>0.9 %</td> <td>0-1</td> </tr> <tr > <td>EOSINOPHIL #</td> <td>0.3 k/cumm</td> <td>0.1- 0.5</td> </tr> <tr> <td>EOSINOPHIL %</td> < td>5.2 %</td> <td>2-4</td> </tr> <tr> <td> GRANULOCYTE #</td> <td>3.3 k/cumm</td> <td>2.0-9.0</td> </tr> <tr> <td>GRANULOCYTE %</td> <td>56.4 %< /td> <td>50-75</td> </tr> <tr> <td>LYMPHOCYTE #< /td> <td>1.6 k/cumm</td> <td>1.0-4.0</td> </tr> <tr> <td>LYMPHOCYTE %</td> <td>27.6 %</td> < td>20-30</td> </tr> <tr> <td>MEAN CELL HGB</td> <td>27.7 pg</td> <td>27.0-33.0</td> </tr> <tr> < td>MEAN CELL HGB CONCENTRATION</td> <td>31.8 g/dL</td> <td> 32.0-37.0</td> </tr> <tr> <td>MEAN CELL VOLUME</td> <td>87.1 fl</td> <td>80.0-100.0</td> </tr> <tr> <td>MONOCYTE #</td> <td>0.6 k/cumm</td> <td>0.1-1.0</td > </tr> <tr> <td>MONOCYTE %</td> <td>9.7 &# 37;</td> <td>4-6</td> </tr> <tr> <td>MEAN PLATELET VOLUME</td> <td>9.0 fl</td> <td>8.5-10.9</td> </tr> <tr> <td>RED BLOOD CELL</td> <td>4.11 m/cumm</td > <td>4.00-6.00</td> </tr> <tr> <td>RED CELL DISTRIBUTION WIDTH</td> <td>15.9 %</td> <td>11.0-15.6</td > </tr> <tr> <td>WHITE BLOOD CELL</td> <td>5.8 k /cumm</td> <td>5.0-10.0</td> </tr> <tr> <td> HEMOGLOBIN</td> <td>11.4 gm/dL</td> <td>12.0-16.0</td> </tr> <tr> <td>HEMATOCRIT</td> <td>35.8 %</td> <td>37.0-47.0</td> </tr> <tr> <td>NRBC %</td> <td>0.0 /100 WBC</td> <td>0.0-0.0</td> </tr> <tr > <td>PLATELET COUNT</td> <td>265 k/cumm</td> <td>150 -400</td> </tr> <tr> <td>IMMATURE GRANULOCYTE %</td> <td>0.2 %</td> <td>0.0-0.6</td> </tr> <tr> <td>IMMATURE GRANULOCYTE #</td> <td>0.01 k/cumm</td> <td>0.00-0.09</td> </tr> <tr> <th colspan="10"> METABOLIC PANEL, [facility] - 12/19/17 03:11</th> </tr> <tr> <td>POTASSIUM</td> <td>3.1 mmol/L</td> <td>3.5-5.3</td> </tr> <tr> <td>EST GFR (MDRD)</td> <td>> 60 mL/ min</td> <td>> 59</td> </tr> <tr> <td>ANION GAP</td> <td>9 mmol/L</td> <td>5-15</td> </tr> < tr> <td>EST CrCl (CG)</td> <td>> 60 mL/min</td> < td>> 59</td> </tr> <tr> <td>GLUCOSE</td> <td> 120 mg/dL</td> <td>70-99</td> </tr> <tr> <td> CALCIUM</td> <td>8.7 mg/dL</td> <td>8.5-10.1</td> </tr > <tr> <td>BLOOD UREA NITROGEN</td> <td>9 mg/dL</td> <td>7-20</td> </tr> <tr> <td>CREATININE</td> <td>0.7 mg/dL</td> <td>0.6-1.0</td> </tr> <tr> <td>SODIUM</td> <td>141 mmol/L</td> <td>135-148</td> </tr> <tr> <td>CHLORIDE</td> <td>105 mmol/L</td> <td>98-110</td> </tr> <tr> <td>AST/SGOT</td> <td>44 Units/L</td> <td>10-37</td> </tr> <tr> <td>ALT/SGPT</td> <td>126 Units/L</td> <td>< 66</td> </tr> <tr> <td>CARBON DIOXIDE</td> <td>27 mmol/ L</td> <td>21-32</td> </tr> <tr> <td>TOTAL PROTEIN</td> <td>7.4 gm/dL</td> <td>6.4-8.2</td> </tr> <tr> <td>ALBUMIN</td> <td>3.4 gm/dL</td> <td> 3.4-5.0</td> </tr> <tr> <td>BILI TOTAL</td> <td> 0.2 mg/dL</td> <td>0.0-1.0</td> </tr> <tr> <td> ALKALINE PHOSPHATASE TOTAL</td> <td>235 IU/L</td> <td>45-117</ td> </tr> <tr> <th colspan="10">LIPASE - 12/19/17 03:11</ th> </tr> <tr> <td>LIPASE</td> <td>96 Units/L</ td> <td>73-393</td> </tr> <tr> <th colspan="10"> TEST, SERUM - 12/19/17 03:11</th> </tr> <tr> < td> TEST, SERUM</td> <td>NEGATIVE </td> <td>NEGATIVE< /td> </tr> <tr> < colspan="10">URINALYSIS, ROUTINE - 04:50</th> </tr> <tr> <td>UA LEUKOCYTE ESTERASE DIPSTICK</td> <td>1+ </td> <td>NEGATIVE</td> </tr> <tr> <td>UA NITRITE DIPSTICK</td> <td>NEGATIVE </td> <td>NEGATIVE</td> </tr> <tr> <td>UA PROTEIN DIPSTICK </td> <td>NEGATIVE </td> <td>NEGATIVE</td> </tr> <tr> <td>UA GLUCOSE DIPSTICK</td> <td>NEGATIVE </td> <td>NEGATIVE</td> </tr> <tr> <td>UA KETONE DIPSTICK</ td> <td>TRACE </td> <td>NEGATIVE</td> </tr> <tr > <td>UA UROBILINOGEN DIPSTICK</td> <td>2+ </td> <td> NORMAL</td> </tr> <tr> <td>UA BILIRUBIN DIPSTICK</td> <td>NEGATIVE </td> <td>NEGATIVE</td> </tr> <tr> <td>UA BLOOD DIPSTICK</td> <td>3+ </td> <td>NEGATIVE</ td> </tr> <tr> <td>UA SPECIFIC GRAVITY</td> <td> 1.025 </td> <td>1.015-1.025</td> </tr> <tr> <td> UR PH</td> <td>7.0 </td> <td>5.0-7.0</td> </tr> <tr> < colspan="10">UA MICROSCOPIC - 12/19/17 04:50</th> </tr > <tr> <td>UA BACTERIA</td> <td>NEGATIVE </td> <td>NEGATIVE</td> </tr> <tr> <td>UA EPITHELIAL CELLS</ td> <td>1+ epi/hpf</td> <td>0 - 1+</td> </tr> < tr> <td>UA HYALINE CAST</td> <td>2-5 cast/lpf</td> < td>0 - 1</td> </tr> <tr> <td>UA RBC</td> <td>&gt ;100 rbc/hpf</td> <td>0 - 3</td> </tr> <tr> <td> UA WBC</td> <td>20-50 wbc/hpf</td> <td>0 - 5</td> </tr > <tr> <th colspan="10">UR DRUGS OF ABUSE SCREEN - 12/19/17 04: 50</th> </tr> <tr> <td>UR AMPHETAMINES SCREEN</td> <td>POS (>1000 ng/mL) </td> <td>NEGATIVE</td> </tr> <tr> <td>UR BARBITURATE SCREEN</td> <td>NEG (< 200 ng/ mL) </td> <td>NEGATIVE</td> </tr> <tr> <td> DRUGS OF ABUSE SCREEN COMMENT</td> <td> </td> <td /> </tr> <tr> <td>UR OPIATES SCREEN</td> <td>POS (&gt ; 300 ng/mL) </td> <td>NEGATIVE</td> </tr> <tr> <td>UR PHENCYCLIDINE (PCP) SCREEN</td> <td>NEG (< 25 ng/mL) </td> <td>NEGATIVE</td> </tr> <tr> <td>UR CANNABINOIDS (THC) SCREEN</td> <td>NEG (< 50 ng/mL) </td> <td>NEGATIVE</td> </tr> <tr> <td>UR COCAINE METABOLITE SCREEN</td> <td>NEG (< 300 ng/mL) </td> <td>NEGATIVE</td> </tr> <tr> <td>UR METHADONE SCREEN</td> <td> NEG (< 300 ng/mL) </td> <td>NEGATIVE</td> </tr> <tr> <td>UR BENZODIAZEPINE SCREEN</td> <td>POS (> 200 ng/mL) < /td> <td>NEGATIVE</td> </tr> <tr> <th colspan= "10">URINE CULTURE - 12/19/17 04:50</th> </tr> <tr> <td> Microbiology</td> <td> </td> <td /> </tr> <tr> <th colspan="10">[facility] - 12/19/17 05:41</th> </tr> < tr> <td>Microbiology</td> <td> </td> <td /> </ tr> <tr> <th colspan="10">GRAM STAIN - CHLAMYDIA DNA BY PCR - 05:41</th> </tr> <tr> <td>Microbiology</td> <td> </td> <td /> </tr> <tr> <th colspan="10 ">UR TEST - 01/31/18 10:00</th> </tr> <tr> <td> UR TEST</td> <td>NEGATIVE </td> <td>NEGATIVE</td> </tr> <tr> <th colspan="10">URINALYSIS, NO REFLEX CULTURE - 01/31/18 10:00</th> </tr> <tr> <td>UA LEUKOCYTE ESTERASE DIPSTICK</td> <td>1+ </td> <td>NEGATIVE</td> < /tr> <tr> <td>UA NITRITE DIPSTICK</td> <td>POSITIVE </ td> <td>NEGATIVE</td> </tr> <tr> <td>UA PROTEIN DIPSTICK</td> <td>NEGATIVE </td> <td>NEGATIVE</td> </tr > <tr> <td>UA GLUCOSE DIPSTICK</td> <td>NEGATIVE </td> <td>NEGATIVE</td> </tr> <tr> <td>UA KETONE DIPSTICK</td> <td>NEGATIVE </td> <td>NEGATIVE</td> </tr > <tr> <td>UA UROBILINOGEN DIPSTICK</td> <td>NORMAL </ td> <td>NORMAL</td> </tr> <tr> <td>UA BILIRUBIN DIPSTICK</td> <td>NEGATIVE </td> <td>NEGATIVE</td> </tr > <tr> <td>UA BLOOD DIPSTICK</td> <td>3+ </td> <td>NEGATIVE</td> </tr> <tr> <td>UA SPECIFIC GRAVITY</ td> <td>1.017 </td> <td>1.015-1.025</td> </tr> < tr> <td>UR PH</td> <td>5.5 </td> <td>5.0-7.0</td> </tr> <tr> < colspan="10">UA MICROSCOPIC - 01/31/18 10:00 </th> </tr> <tr> <td>UA BACTERIA</td> <td>3+ </ td> <td>NEGATIVE</td> </tr> <tr> <td>UA EPITHELIAL CELLS</td> <td>5+ epi/hpf</td> <td>0 - 1+</td> </tr> <tr> <td>UA RBC</td> <td>20-50 rbc/hpf</td> <td>0 - 3</td> </tr> <tr> <td>UA VOLUME FOR EXAM </td> <td>12.0 mL</td> <td>(12mL STD)</td> </tr> <tr> <td>UA WBC</td> <td>10-20 wbc/hpf</td> <td>0 - 5</td> </tr> <tr> < colspan="10">CBC W/DIFF - 10:09</th> </tr> <tr> <td>BASOPHIL #</td> <td >0.1 k/cumm</td> <td>0.0-0.2</td> </tr> <tr> <td >BASOPHIL %</td> <td>1.0 %</td> <td>0-1</td> </ tr> <tr> <td>EOSINOPHIL #</td> <td>0.1 k/cumm</td> <td>0.1-0.5</td> </tr> <tr> <td>EOSINOPHIL %</ td> <td>2.0 %</td> <td>2-4</td> </tr> <tr> <td>GRANULOCYTE #</td> <td>2.8 k/cumm</td> <td>2.0- 9.0</td> </tr> <tr> <td>GRANULOCYTE %</td> < td>46.9 %</td> <td>50-75</td> </tr> <tr> <td >LYMPHOCYTE #</td> <td>2.4 k/cumm</td> <td>1.0-4.0</td> </tr> <tr> <td>LYMPHOCYTE %</td> <td>40.6 %</ td> <td>20-30</td> </tr> <tr> <td>MEAN CELL HGB< /td> <td>26.5 pg</td> <td>27.0-33.0</td> </tr> < tr> <td>MEAN CELL HGB CONCENTRATION</td> <td>30.0 g/dL</td> <td>32.0-37.0</td> </tr> <tr> <td>MEAN CELL VOLUME</td> <td>88.3 fl</td> <td>80.0-100.0</td> </tr> <tr> <td>MONOCYTE #</td> <td>0.6 k/cumm</td> <td>0.1-1.0</td> </tr> <tr> <td>MONOCYTE %</td> <td>9.3 %</td> <td>4-6</td> </tr> <tr> <td>MEAN PLATELET VOLUME</td> <td>9.1 fl</td> <td>8.5-10.9</td > </tr> <tr> <td>RED BLOOD CELL</td> <td>3.93 m/ cumm</td> <td>4.00-6.00</td> </tr> <tr> <td>RED CELL DISTRIBUTION WIDTH</td> <td>13.8 %</td> <td>11.0-15.6 </td> </tr> <tr> <td>WHITE BLOOD CELL</td> <td> 6.0 k/cumm</td> <td>5.0-10.0</td> </tr> <tr> <td >HEMOGLOBIN</td> <td>10.4 gm/dL</td> <td>12.0-16.0</td> </tr> <tr> <td>HEMATOCRIT</td> <td>34.7 %</td> <td>37.0-47.0</td> </tr> <tr> <td>NRBC %</td > <td>0.0 /100 WBC</td> <td>0.0-0.0</td> </tr> < tr> <td>PLATELET COUNT</td> <td>217 k/cumm</td> <td> 150-400</td> </tr> <tr> <td>IMMATURE GRANULOCYTE %</ td> <td>0.2 %</td> <td>0.0-0.6</td> </tr> < tr> <td>IMMATURE GRANULOCYTE #</td> <td>0.01 k/cumm</td> <td>0.00-0.09</td> </tr> <tr> <th colspan="10"> METABOLIC PANEL, [facility] - 01/31/18 10:09</th> </tr> <tr> <td>POTASSIUM</td> <td>3.4 mmol/L</td> <td>3.5-5.3</td> </tr> <tr> <td>EST GFR (MDRD)</td> <td>> 60 mL/ min</td> <td>> 59</td> </tr> <tr> <td>ANION GAP</td> <td>12 mmol/L</td> <td>5-15</td> </tr> <tr> <td>EST CrCl (CG)</td> <td>> 60 mL/min</td> < td>> 59</td> </tr> <tr> <td>GLUCOSE</td> <td> 87 mg/dL</td> <td>70-99</td> </tr> <tr> <td> CALCIUM</td> <td>8.0 mg/dL</td> <td>8.5-10.1</td> </tr > <tr> <td>BLOOD UREA NITROGEN</td> <td>10 mg/dL</td> <td>7-20</td> </tr> <tr> <td>CREATININE</td> <td>0.6 mg/dL</td> <td>0.6-1.0</td> </tr> <tr> <td>SODIUM</td> <td>145 mmol/L</td> <td>135-148</td> </tr> <tr> <td>CHLORIDE</td> <td>110 mmol/L</td> <td>98-110</td> </tr> <tr> <td>AST/SGOT</td> <td>8 Units/L</td> <td>10-37</td> </tr> <tr> <td>ALT/SGPT</td> <td>12 Units/L</td> <td>< 66</td> </tr> <tr> <td>CARBON DIOXIDE</td> <td>23 mmol/L </td> <td>21-32</td> </tr> <tr> <td>TOTAL PROTEIN</td> <td>6.0 gm/dL</td> <td>6.4-8.2</td> </tr> <tr> <td>ALBUMIN</td> <td>2.9 gm/dL</td> <td> 3.4-5.0</td> </tr> <tr> <td>BILI TOTAL</td> <td> 0.1 mg/dL</td> <td>0.0-1.0</td> </tr> <tr> <td> ALKALINE PHOSPHATASE TOTAL</td> <td>70 IU/L</td> <td>45-117</ td> </tr> </tbody> </table> </text> <entry> <organizer moodCode="EVN" classCode="BATTERY"> <templateId root= "[id number]..22.4.1" /> <id nullFlavor="NA" /> <code codeSystem="local" code="CBCD" displayName="CBC W/DIFF" /> <statusCode code ="completed" /> <component> <observation moodCode="EVN" classCode= "OBS"> <templateId root="[id number]..22.4.2" /> < id nullFlavor="NA" /> <code codeSystem="local" code="BA#" displayName= "BASOPHIL #" /> <statusCode code="completed" /> < effectiveTime value="[id number]" /> <value unit="k/cumm" xsi:type="PQ " value="0.1" /> <referenceRange> <observationRange> <text>0.0-0.2</text> </observationRange> </ referenceRange> </observation> </component> <component> <observation moodCode="EVN" classCode="OBS"> <templateId root= "[id number]" /> <id nullFlavor="NA" /> < code codeSystem="local" code="BA%" displayName="BASOPHIL %" /> <statusCode code="completed" /> <effectiveTime value="709894956893" /> <value unit="%" xsi:type="PQ" value="1" /> < referenceRange> <observationRange> <text>0-1</text> </observationRange> </referenceRange> </observation> </component> <component> <observation moodCode="EVN" classCode= "OBS"> <templateId root="[id number]" /> < id nullFlavor="NA" /> <code codeSystem="local" code="EO#" displayName= "EOSINOPHIL #" /> <statusCode code="completed" /> < effectiveTime value="304145255414" /> <value unit="k/cumm" xsi:type="PQ " value="0.5" /> <referenceRange> <observationRange> <text>0.1-0.5</text> </observationRange> </ referenceRange> </observation> </component> <component> <observation moodCode="EVN" classCode="OBS"> <templateId root= "[id number]" /> <id nullFlavor="NA" /> < code codeSystem="local" code="EO%" displayName="EOSINOPHIL %" /> <statusCode code="completed" /> <effectiveTime value="934752406398" /> <value unit="%" xsi:type="PQ" value="5" /> < interpretationCode codeSystem="local" code="*" /> <referenceRange> <observationRange> <text>2-4</text> </ observationRange> </referenceRange> </observation> </ component> <component> <observation moodCode="EVN" classCode="OBS"> <templateId root="[id number].2" /> <id nullFlavor="NA" /> <code codeSystem="local" code="GR#" displayName= "GRANULOCYTE #" /> <statusCode code="completed" /> < effectiveTime value="[id number]" /> <value unit="k/cumm" xsi:type="PQ " value="4.1" /> <referenceRange> <observationRange> <text>2.0-9.0</text> </observationRange> </ referenceRange> </observation> </component> <component> <observation moodCode="EVN" classCode="OBS"> <templateId root= "[id number]....4.2" /> <id nullFlavor="NA" /> < code codeSystem="local" code="GR%" displayName="GRANULOCYTE %" /> <statusCode code="completed" /> <effectiveTime value="732620125330 " /> <value unit="%" xsi:type="PQ" value="46" /> < interpretationCode codeSystem="local" code="*" /> <referenceRange> <observationRange> <text>50-75</text> </ observationRange> </referenceRange> </observation> </ component> <component> <observation moodCode="EVN" classCode="OBS"> <templateId root="[id number]" /> <id nullFlavor="NA" /> <code codeSystem="local" code="LY#" displayName= "LYMPHOCYTE #" /> <statusCode code="completed" /> < effectiveTime value="197625783996" /> <value unit="k/cumm" xsi:type="PQ " value="3.4" /> <referenceRange> <observationRange> <text>1.0-4.0</text> </observationRange> </ referenceRange> </observation> </component> <component> <observation moodCode="EVN" classCode="OBS"> <templateId root= "[id number]" /> <id nullFlavor="NA" /> < code codeSystem="local" code="LY%" displayName="LYMPHOCYTE %" /> <statusCode code="completed" /> <effectiveTime value="" /> <value unit="%" xsi:type="PQ" value="37" /> < interpretationCode codeSystem="local" code="*" /> <referenceRange> <observationRange> <text>20-30</text> </ observationRange> </referenceRange> </observation> </ component> <component> <observation moodCode="EVN" classCode="OBS"> <templateId root="[id number].2" /> <id nullFlavor="NA" /> <code codeSystem="local" code="MCH" displayName= "MEAN CELL HGB" /> <statusCode code="completed" /> < effectiveTime value="248336051462" /> <value unit="pg" xsi:type="PQ" value="21.2" /> <interpretationCode codeSystem="local" code="*" /> <referenceRange> <observationRange> <text>27.0- 33.0</text> </observationRange> </referenceRange> </ observation> </component> <component> <observation moodCode= "EVN" classCode="OBS"> <templateId root="[id number]..22.4.2 " /> <id nullFlavor="NA" /> <code codeSystem="local" code= "MCHC" displayName="MEAN CELL HGB CONCENTRATION" /> <statusCode code= "completed" /> <effectiveTime value="408723604592" /> <value unit="g/dl" xsi:type="PQ" value="28.9" /> <interpretationCode codeSystem="local" code="*" /> <referenceRange> < observationRange> <text>32.0-36.0</text> </ observationRange> </referenceRange> </observation> </ component> <component> <observation moodCode="EVN" classCode="OBS"> <templateId root="07.12.840.1.309202...4.2" /> <id nullFlavor="NA" /> <code codeSystem="local" code="MCV" displayName= "MEAN CELL VOLUME" /> <statusCode code="completed" /> < effectiveTime value="990623660797" /> <value unit="fl" xsi:type="PQ" value="73.3" /> <interpretationCode codeSystem="local" code="*" /> <referenceRange> <observationRange> <text>80.0- 100.0</text> </observationRange> </referenceRange> </ observation> </component> <component> <observation moodCode= "EVN" classCode="OBS"> <templateId root="07.12.840.1.521056.10.4.2 " /> <id nullFlavor="NA" /> <code codeSystem="local" code="MO# " displayName="MONOCYTE #" /> <statusCode code="completed" /> <effectiveTime value="390966810984" /> <value unit="k/cumm" xsi:type= "PQ" value="1.0" /> <referenceRange> <observationRange> <text>0.1-1.0</text> </observationRange> </ referenceRange> </observation> </component> <component> <observation moodCode="EVN" classCode="OBS"> <templateId root= "[id number]" /> <id nullFlavor="NA" /> < code codeSystem="local" code="MO%" displayName="MONOCYTE %" /> <statusCode code="completed" /> <effectiveTime value="018805070259" /> <value unit="%" xsi:type="PQ" value="12" /> < interpretationCode codeSystem="local" code="*" /> <referenceRange> <observationRange> <text>4-6</text> </ observationRange> </referenceRange> </observation> </ component> <component> <observation moodCode="EVN" classCode="OBS"> <templateId root="216.840.1.849922.03.15.224.2" /> <id nullFlavor="NA" /> <code codeSystem="local" code="OVAL" displayName= "OVALOCYTES" /> <statusCode code="completed" /> < effectiveTime value="016294743273" /> <value unit="" xsi:type="PQ" value="NOTED" /> <referenceRange> <observationRange> <text /> </observationRange> </referenceRange> </observation> </component> <component> <observation moodCode ="EVN" classCode="OBS"> <templateId root= "216.840.1.830208.10..4.2" /> <id nullFlavor="NA" /> < code codeSystem="local" code="RBC" displayName="RED BLOOD CELL" /> < statusCode code="completed" /> <effectiveTime value="377513548944" /> <value unit="m/cumm" xsi:type="PQ" value="3.97" /> < interpretationCode codeSystem="local" code="*" /> <referenceRange> <observationRange> <text>4.00-6.00</text> </ observationRange> </referenceRange> </observation> </ component> <component> <observation moodCode="EVN" classCode="OBS"> <templateId root="[id number]2.4.2" /> <id nullFlavor="NA" /> <code codeSystem="local" code="RDW" displayName=" RED CELL DISTRIBUTION WIDTH" /> <statusCode code="completed" /> <effectiveTime value="589680210748" /> <value unit="%" xsi:type= "PQ" value="18.6" /> <interpretationCode codeSystem="local" code="*" / > <referenceRange> <observationRange> <text> 11.0-15.6</text> </observationRange> </referenceRange> </observation> </component> <component> <observation moodCode="EVN" classCode="OBS"> <templateId root= "16.840.1.550774.10.4.2" /> <id nullFlavor="NA" /> < code codeSystem="local" code="WBC" displayName="WHITE BLOOD CELL" /> < statusCode code="completed" /> <effectiveTime value="146062291992" /> <value unit="k/cumm" xsi:type="PQ" value="9.0" /> < referenceRange> <observationRange> <text>5.0-10.0</text > </observationRange> </referenceRange> </observation > </component> <component> <observation moodCode="EVN" classCode="OBS"> <templateId root="216.840.1.327429.10.20.22.4.2" /> <id nullFlavor="NA" /> <code codeSystem="local" code="HGBT" displayName="HEMOGLOBIN" /> <statusCode code="completed" /> < effectiveTime value="351475612068" /> <value unit="gm/dL" xsi:type="PQ " value="8.4" /> <interpretationCode codeSystem="local" code="*" /> <referenceRange> <observationRange> <text>12.0- 16.0</text> </observationRange> </referenceRange> </ observation> </component> <component> <observation moodCode= "EVN" classCode="OBS"> <templateId root="216.840.1.097484.10.20.22.4.2 " /> <id nullFlavor="NA" /> <code codeSystem="local" code= "HCTT" displayName="HEMATOCRIT" /> <statusCode code="completed" /> <effectiveTime value="007680642483" /> <value unit="%" xsi: type="PQ" value="29.1" /> <interpretationCode codeSystem="local" code= "*" /> <referenceRange> <observationRange> < text>37.0-47.0</text> </observationRange> </referenceRange> </observation> </component> <component> <observation moodCode="EVN" classCode="OBS"> <templateId root= "07.12.840.1.882110.10..22.4.2" /> <id nullFlavor="NA" /> < code codeSystem="local" code="PLT" displayName="PLATELET COUNT" /> < statusCode code="completed" /> <effectiveTime value="374426946687" /> <value unit="k/cumm" xsi:type="PQ" value="292" /> < referenceRange> <observationRange> <text>150-450</text> </observationRange> </referenceRange> </observation > </component> </organizer> </entry> <entry> <organizer moodCode= "EVN" classCode="BATTERY"> <templateId root="07.12.840.1.451777.10..22.4.1 " /> <id nullFlavor="NA" /> <code codeSystem="local" code="iCHEM8" displayName="CHEM/HEM PROFILE-BEDSIDE" /> <statusCode code="completed" /> <component> <observation moodCode="EVN" classCode="OBS"> < templateId root="07.12.840.1.771301.10..22.4.2" /> <id nullFlavor="NA " /> <code codeSystem="local" code="K" displayName="POTASSIUM" /> <statusCode code="completed" /> <effectiveTime value="[id number] " /> <value unit="mmol/L" xsi:type="PQ" value="3.9" /> < referenceRange> <observationRange> <text>3.5-5.3</text> </observationRange> </referenceRange> </observation > </component> <component> <observation moodCode="EVN" classCode="OBS"> <templateId root="07.12.840.1.247852...4.2" /> <id nullFlavor="NA" /> <code codeSystem="local" code="CMETHOD " displayName="METHOD" /> <statusCode code="completed" /> < effectiveTime value="" /> <value unit="" xsi:type="PQ" value="Bedside" /> <referenceRange> <observationRange> <text /> </observationRange> </referenceRange> </observation> </component> <component> <observation moodCode="EVN" classCode="OBS"> <templateId root= "07.12.840.1.580684.03.15.224.2" /> <id nullFlavor="NA" /> < code codeSystem="local" code="GAP" displayName="ANION GAP" /> < statusCode code="completed" /> <effectiveTime value="" /> <value unit="mmol/L" xsi:type="PQ" value="15" /> < referenceRange> <observationRange> <text>10-20</text> </observationRange> </referenceRange> </observation> </component> <component> <observation moodCode="EVN" classCode= "OBS"> <templateId root="07.12.840.1.571236.03.15.22.4.2" /> < id nullFlavor="NA" /> <code codeSystem="local" code="HMETHOD" displayName="METHOD" /> <statusCode code="completed" /> < effectiveTime value="" /> <value unit="" xsi:type="PQ" value="Bedside" /> <referenceRange> <observationRange> <text /> </observationRange> </referenceRange> </observation> </component> <component> <observation moodCode="EVN" classCode="OBS"> <templateId root= "07.12.840.1.807308.03.15.22.4.2" /> <id nullFlavor="NA" /> < code codeSystem="local" code="GLU" displayName="GLUCOSE" /> < statusCode code="completed" /> <effectiveTime value="[id number]" /> <value unit="mg/dL" xsi:type="PQ" value="89" /> < referenceRange> <observationRange> <text>70-99</text> </observationRange> </referenceRange> </observation> </component> <component> <observation moodCode="EVN" classCode= "OBS"> <templateId root="2.16.840.1.352751.10..4.2" /> < id nullFlavor="NA" /> <code codeSystem="local" code="BUN" displayName= "BLOOD UREA NITROGEN" /> <statusCode code="completed" /> < effectiveTime value="626604102505" /> <value unit="mg/dL" xsi:type="PQ " value="5" /> <interpretationCode codeSystem="local" code="*" /> <referenceRange> <observationRange> <text>7-20</ text> </observationRange> </referenceRange> </ observation> </component> <component> <observation moodCode= "EVN" classCode="OBS"> <templateId root="2.16.840.1.865064...4.2 " /> <id nullFlavor="NA" /> <code codeSystem="local" code= "CREAT" displayName="CREATININE" /> <statusCode code="completed" /> <effectiveTime value="409857544007" /> <value unit="mg/dL" xsi: type="PQ" value="0.6" /> <referenceRange> <observationRange > <text>0.6-1.0</text> </observationRange> </ referenceRange> </observation> </component> <component> <observation moodCode="EVN" classCode="OBS"> <templateId root= "216.840.1.389572.10..4.2" /> <id nullFlavor="NA" /> < code codeSystem="local" code="HGBT" displayName="HEMOGLOBIN" /> < statusCode code="completed" /> <effectiveTime value="829952154810" /> <value unit="gm/dL" xsi:type="PQ" value="9.9" /> < interpretationCode codeSystem="local" code="*" /> <referenceRange> <observationRange> <text>12.0-16.0</text> </ observationRange> </referenceRange> </observation> </ component> <component> <observation moodCode="EVN" classCode="OBS"> <templateId root="07.12.840.1.297258.03.15.224.2" /> <id nullFlavor="NA" /> <code codeSystem="local" code="HCTT" displayName= "HEMATOCRIT" /> <statusCode code="completed" /> < effectiveTime value="548284694891" /> <value unit="%" xsi:type="PQ " value="29.0" /> <interpretationCode codeSystem="local" code="*" /> <referenceRange> <observationRange> <text>37.0- 47.0</text> </observationRange> </referenceRange> </ observation> </component> <component> <observation moodCode= "EVN" classCode="OBS"> <templateId root="07.12.840.1.969724.03.15.22.4.2 " /> <id nullFlavor="NA" /> <code codeSystem="local" code="NA " displayName="SODIUM" /> <statusCode code="completed" /> < effectiveTime value="229093715853" /> <value unit="mmol/L" xsi:type="PQ " value="134" /> <interpretationCode codeSystem="local" code="*" /> <referenceRange> <observationRange> <text>135-148 </text> </observationRange> </referenceRange> </ observation> </component> <component> <observation moodCode= "EVN" classCode="OBS"> <templateId root="07.12.840.1.165122.10...4.2 " /> <id nullFlavor="NA" /> <code codeSystem="local" code="CL " displayName="CHLORIDE" /> <statusCode code="completed" /> < effectiveTime value="666537853342" /> <value unit="mmol/L" xsi:type="PQ " value="101" /> <referenceRange> <observationRange> <text>98-110</text> </observationRange> </ referenceRange> </observation> </component> <component> <observation moodCode="EVN" classCode="OBS"> <templateId root= "07.12.840.1.950030....4.2" /> <id nullFlavor="NA" /> < code codeSystem="local" code="CO2" displayName="CARBON DIOXIDE" /> < statusCode code="completed" /> <effectiveTime value="982019373703" /> <value unit="mmol/L" xsi:type="PQ" value="23" /> < referenceRange> <observationRange> <text>21-32</text> </observationRange> </referenceRange> </observation> </component> <component> <observation moodCode="EVN" classCode= "OBS"> <templateId root="07.12.840.1.271878.10..22.4.2" /> < id nullFlavor="NA" /> <code codeSystem="local" code="CAION" displayName ="CALCIUM IONIZED" /> <statusCode code="completed" /> < effectiveTime value="581625891574" /> <value unit="mg/dL" xsi:type="PQ " value="4.7" /> <referenceRange> <observationRange> <text>4.5-5.3</text> </observationRange> </ referenceRange> </observation> </component> </organizer> </entry > <entry> <organizer moodCode="EVN" classCode="BATTERY"> <templateId root="216.840.1.886278.10..22.4.1" /> <id nullFlavor="NA" /> <code codeSystem="local" code="DRUGAB" displayName="UR DRUGS OF ABUSE SCREEN" /> <statusCode code="completed" /> <component> <observation moodCode= "EVN" classCode="OBS"> <templateId root="216.840.1.578541.10..22.4.2 " /> <id nullFlavor="NA" /> <code codeSystem="local" code= "AMPHU" displayName="UR AMPHETAMINES SCREEN" /> <statusCode code= "completed" /> <effectiveTime value="323084890523" /> <value unit="" xsi:type="PQ" value="NEG (<1000 ng/mL)" /> <referenceRange > <observationRange> <text>NEGATIVE</text> </ observationRange> </referenceRange> </observation> </ component> <component> <observation moodCode="EVN" classCode="OBS"> <templateId root="216.840.1.896326.10..22.4.2" /> <id nullFlavor="NA" /> <code codeSystem="local" code="BARBU" displayName= "UR BARBITURATE SCREEN" /> <statusCode code="completed" /> < effectiveTime value="831171138271" /> <value unit="" xsi:type="PQ" value="NEG (< 200 ng/mL)" /> <referenceRange> < observationRange> <text>NEGATIVE</text> </ observationRange> </referenceRange> </observation> </ component> <component> <observation moodCode="EVN" classCode="OBS"> <templateId root="216.840.1.145460.10..22.4.2" /> <id nullFlavor="NA" /> <code codeSystem="local" code="DAUCOMMENT" displayName="DRUGS OF ABUSE SCREEN COMMENT" /> <statusCode code= "completed" /> <effectiveTime value="096064478504" /> <value unit="" xsi:type="PQ" value="" /> <referenceRange> < observationRange> <text /> </observationRange> </referenceRange> </observation> </component> <component> <observation moodCode="EVN" classCode="OBS"> <templateId root= "2.16.840.1.570311.10..22.4.2" /> <id nullFlavor="NA" /> < code codeSystem="local" code="OPIU" displayName="UR OPIATES SCREEN" /> <statusCode code="completed" /> <effectiveTime value="445235439605" /> <value unit="" xsi:type="PQ" value="POS (> 300 ng/mL)" /> <interpretationCode codeSystem="local" code="*" /> <referenceRange> <observationRange> <text>NEGATIVE</text> </ observationRange> </referenceRange> </observation> </ component> <component> <observation moodCode="EVN" classCode="OBS"> <templateId root="2.16.840.1.442888.10..22.4.2" /> <id nullFlavor="NA" /> <code codeSystem="local" code="PCPU" displayName=" UR PHENCYCLIDINE (PCP) SCREEN" /> <statusCode code="completed" /> <effectiveTime value="327118038898" /> <value unit="" xsi:type="PQ " value="NEG (< 25 ng/mL)" /> <referenceRange> < observationRange> <text>NEGATIVE</text> </ observationRange> </referenceRange> </observation> </ component> <component> <observation moodCode="EVN" classCode="OBS"> <templateId root="216.840.1.036282.10...4.2" /> <id nullFlavor="NA" /> <code codeSystem="local" code="THCU" displayName=" UR CANNABINOIDS (THC) SCREEN" /> <statusCode code="completed" /> <effectiveTime value="284226024223" /> <value unit="" xsi:type="PQ " value="NEG (< 50 ng/mL)" /> <referenceRange> < observationRange> <text>NEGATIVE</text> </ observationRange> </referenceRange> </observation> </ component> <component> <observation moodCode="EVN" classCode="OBS"> <templateId root="216.840.1.961280.10..22.4.2" /> <id nullFlavor="NA" /> <code codeSystem="local" code="COCAU" displayName= "UR COCAINE METABOLITE SCREEN" /> <statusCode code="completed" /> <effectiveTime value="689981801367" /> <value unit="" xsi:type="PQ " value="NEG (< 300 ng/mL)" /> <referenceRange> < observationRange> <text>NEGATIVE</text> </ observationRange> </referenceRange> </observation> </ component> <component> <observation moodCode="EVN" classCode="OBS"> <templateId root="216.840.1.544436.10..22.4.2" /> <id nullFlavor="NA" /> <code codeSystem="local" code="METHU" displayName= "UR METHADONE SCREEN" /> <statusCode code="completed" /> < effectiveTime value="520783447876" /> <value unit="" xsi:type="PQ" value="NEG (< 300 ng/mL)" /> <referenceRange> < observationRange> <text>NEGATIVE</text> </ observationRange> </referenceRange> </observation> </ component> <component> <observation moodCode="EVN" classCode="OBS"> <templateId root="216.840.1.414481.10...4.2" /> <id nullFlavor="NA" /> <code codeSystem="local" code="BENZU" displayName= "UR BENZODIAZEPINE SCREEN" /> <statusCode code="completed" /> <effectiveTime value="345935675464" /> <value unit="" xsi:type="PQ" value="NEG (< 200 ng/mL)" /> <referenceRange> < observationRange> <text>NEGATIVE</text> </ observationRange> </referenceRange> </observation> </ component> </organizer> </entry> <entry> <organizer moodCode="EVN" classCode="BATTERY"> <templateId root="216.840.1.237258.10..22.4.1" /> <id nullFlavor="NA" /> <code codeSystem="local" code="PROLAC" displayName="PROLACTIN" /> <statusCode code="completed" /> <component > <observation moodCode="EVN" classCode="OBS"> <templateId root= "216.840.1.503298.10.20.22.4.2" /> <id nullFlavor="NA" /> < code codeSystem="local" code="PROLAC" displayName="PROLACTIN" /> < statusCode code="completed" /> <effectiveTime value="195124578238" /> <value unit="ng/mL" xsi:type="PQ" value="83.6" /> < interpretationCode codeSystem="local" code="*" /> <referenceRange> <observationRange> <text>1.8-29.2</text> </ observationRange> </referenceRange> </observation> </ component> </organizer> </entry> <entry> <organizer moodCode="EVN" classCode="BATTERY"> <templateId root="216.840.1.329794.10.20.22.4.1" /> <id nullFlavor="NA" /> <code codeSystem="local" code="CK" displayName= "CREATINE KINASE (CK/CPK)" /> <statusCode code="completed" /> < component> <observation moodCode="EVN" classCode="OBS"> < templateId root="216.840.1.347692.10.20.22.4.2" /> <id nullFlavor="NA " /> <code codeSystem="local" code="CK" displayName="CREATINE KINASE ( CK/CPK)" /> <statusCode code="completed" /> <effectiveTime value="793791513744" /> <value unit="Units/L" xsi:type="PQ" value="49" /> <referenceRange> <observationRange> <text>& lt; 193</text> </observationRange> </referenceRange> </observation> </component> </organizer> </entry> <entry> < organizer moodCode="EVN" classCode="BATTERY"> <templateId root= "16.840.1.845409.10...4.1" /> <id nullFlavor="NA" /> <code codeSystem="local" code="MRSAS" displayName="MRSA SURVEILLANCE SCREEN" /> < statusCode code="completed" /> <component> <observation moodCode= "EVN" classCode="OBS"> <templateId root="07.12.840.1.948293...4.2 " /> <id nullFlavor="NA" /> <code codeSystem="local" code= "MICRO" displayName="ICA_MICRO" /> <statusCode code="completed" /> <effectiveTime value="870040589190" /> <value unit="" xsi:type= "PQ" value="" /> <referenceRange> <observationRange> <text /> </observationRange> </referenceRange> </observation> </component> </organizer> </entry> <entry> < organizer moodCode="EVN" classCode="BATTERY"> <templateId root= "840.1.026797.03.15.22.4.1" /> <id nullFlavor="NA" /> <code codeSystem="local" code="GLUMON" displayName="GLUCOSE (POC)" /> < statusCode code="completed" /> <component> <observation moodCode= "EVN" classCode="OBS"> <templateId root="07.12.840.1.846044.10...4.2 " /> <id nullFlavor="NA" /> <code codeSystem="local" code= "GLUMON" displayName="GLUCOSE (POC)" /> <statusCode code="completed" / > <effectiveTime value="434335386843" /> <value unit="mg/dL" xsi:type="PQ" value="81" /> <referenceRange> < observationRange> <text>70-99</text> </observationRange > </referenceRange> </observation> </component> </ organizer> </entry> <entry> <organizer moodCode="EVN" classCode="BATTERY"> <templateId root="07.12.840.1.825670.10..22.4.1" /> <id nullFlavor= "NA" /> <code codeSystem="local" code="PREGU" displayName="UR TEST" /> <statusCode code="completed" /> <component> < observation moodCode="EVN" classCode="OBS"> <templateId root= "07.12.840.1.848244....4.2" /> <id nullFlavor="NA" /> < code codeSystem="local" code="PREGU" displayName="UR TEST" /> <statusCode code="completed" /> <effectiveTime value="366192709489" / > <value unit="" xsi:type="PQ" value="NEGATIVE" /> < referenceRange> <observationRange> <text>NEGATIVE</text > </observationRange> </referenceRange> </observation > </component> </organizer> </entry> <entry> <organizer moodCode= "EVN" classCode="BATTERY"> <templateId root="07.12.840.1.314162.10.22.4.1 " /> <id nullFlavor="NA" /> <code codeSystem="local" code="UAM" displayName="URINALYSIS WITH MICROSCOPIC" /> <statusCode code="completed" / > <component> <observation moodCode="EVN" classCode="OBS"> <templateId root="07.12.840.1.354456...4.2" /> <id nullFlavor="NA " /> <code codeSystem="local" code="LEUESU" displayName="UA LEUKOCYTE ESTERASE DIPSTICK" /> <statusCode code="completed" /> < effectiveTime value="" /> <value unit="" xsi:type="PQ" value="TRACE" /> <interpretationCode codeSystem="local" code="*" /> <referenceRange> <observationRange> <text> NEGATIVE</text> </observationRange> </referenceRange> </observation> </component> <component> <observation moodCode ="EVN" classCode="OBS"> <templateId root= "2.16.840.1.811823.03.15.224.2" /> <id nullFlavor="NA" /> < code codeSystem="local" code="NITRIU" displayName="UA NITRITE DIPSTICK" /> <statusCode code="completed" /> <effectiveTime value=" " /> <value unit="" xsi:type="PQ" value="NEGATIVE" /> < referenceRange> <observationRange> <text>NEGATIVE</text > </observationRange> </referenceRange> </observation > </component> <component> <observation moodCode="EVN" classCode="OBS"> <templateId root="2.16.840.1.816407.03.15.22.4.2" /> <id nullFlavor="NA" /> <code codeSystem="local" code="PROTEIU " displayName="UA PROTEIN DIPSTICK" /> <statusCode code="completed" /> <effectiveTime value="" /> <value unit="" xsi: type="PQ" value="NEGATIVE" /> <referenceRange> < observationRange> <text>NEGATIVE</text> </ observationRange> </referenceRange> </observation> </ component> <component> <observation moodCode="EVN" classCode="OBS"> <templateId root="16.840.1.153678.10...4.2" /> <id nullFlavor="NA" /> <code codeSystem="local" code="DGLUU" displayName= "UA GLUCOSE DIPSTICK" /> <statusCode code="completed" /> < effectiveTime value="" /> <value unit="" xsi:type="PQ" value="NEGATIVE" /> <referenceRange> <observationRange> <text>NEGATIVE</text> </observationRange> </ referenceRange> </observation> </component> <component> <observation moodCode="EVN" classCode="OBS"> <templateId root= "07.12.840.1.551562.10..4.2" /> <id nullFlavor="NA" /> < code codeSystem="local" code="KETONU" displayName="UA KETONE DIPSTICK" /> <statusCode code="completed" /> <effectiveTime value=" " /> <value unit="" xsi:type="PQ" value="NEGATIVE" /> < referenceRange> <observationRange> <text>NEGATIVE</text > </observationRange> </referenceRange> </observation > </component> <component> <observation moodCode="EVN" classCode="OBS"> <templateId root="07.12.840.1.400190.10..4.2" /> <id nullFlavor="NA" /> <code codeSystem="local" code="UROBILU " displayName="UA UROBILINOGEN DIPSTICK" /> <statusCode code="completed " /> <effectiveTime value="" /> <value unit="" xsi :type="PQ" value="NORMAL" /> <referenceRange> < observationRange> <text>NORMAL</text> </observationRange > </referenceRange> </observation> </component> < component> <observation moodCode="EVN" classCode="OBS"> < templateId root="16.840.1.559281.03.15.22.4.2" /> <id nullFlavor="NA " /> <code codeSystem="local" code="BILU" displayName="UA BILIRUBIN DIPSTICK" /> <statusCode code="completed" /> <effectiveTime value="" /> <value unit="" xsi:type="PQ" value="NEGATIVE" / > <referenceRange> <observationRange> <text> NEGATIVE</text> </observationRange> </referenceRange> </observation> </component> <component> <observation moodCode ="EVN" classCode="OBS"> <templateId root= "07.12.840.1.959773.03.15.22.4.2" /> <id nullFlavor="NA" /> < code codeSystem="local" code="LON" displayName="UA BLOOD DIPSTICK" /> < statusCode code="completed" /> <effectiveTime value="" /> <value unit="" xsi:type="PQ" value="NEGATIVE" /> < referenceRange> <observationRange> <text>NEGATIVE</text > </observationRange> </referenceRange> </observation > </component> <component> <observation moodCode="EVN" classCode="OBS"> <templateId root="07.12.840.1.986218.03.15.22.4.2" /> <id nullFlavor="NA" /> <code codeSystem="local" code="EPIU" displayName="UA EPITHELIAL CELLS" /> <statusCode code="completed" /> <effectiveTime value="" /> <value unit="epi/hpf" xsi:type="PQ" value="3+" /> <interpretationCode codeSystem="local" code ="*" /> <referenceRange> <observationRange> < text>0 - 1+</text> </observationRange> </referenceRange> </observation> </component> <component> <observation moodCode="EVN" classCode="OBS"> <templateId root= "07.12.840.1.530987.10.4.2" /> <id nullFlavor="NA" /> < code codeSystem="local" code="MUCUSU" displayName="UA MUCUS" /> < statusCode code="completed" /> <effectiveTime value="878192107106" /> <value unit="" xsi:type="PQ" value="1+" /> <referenceRange> <observationRange> <text>NEG TO 1+</text> </ observationRange> </referenceRange> </observation> </ component> <component> <observation moodCode="EVN" classCode="OBS"> <templateId root="840.1.834304.03.15.224.2" /> <id nullFlavor="NA" /> <code codeSystem="local" code="RBCU" displayName=" UA RBC" /> <statusCode code="completed" /> <effectiveTime value="476204365565" /> <value unit="rbc/hpf" xsi:type="PQ" value="0-3 " /> <referenceRange> <observationRange> <text> 0 - 3</text> </observationRange> </referenceRange> </ observation> </component> <component> <observation moodCode= "EVN" classCode="OBS"> <templateId root="07.12.840.1.369942.22.4.2 " /> <id nullFlavor="NA" /> <code codeSystem="local" code= "UAVOL" displayName="UA VOLUME FOR EXAM" /> <statusCode code="completed " /> <effectiveTime value="393430640200" /> <value unit="mL" xsi:type="PQ" value="12.0" /> <referenceRange> < observationRange> <text>(12mL STD)</text> </ observationRange> </referenceRange> </observation> </ component> <component> <observation moodCode="EVN" classCode="OBS"> <templateId root="16.840.1.651424.10..22.4.2" /> <id nullFlavor="NA" /> <code codeSystem="local" code="WBCU" displayName=" UA WBC" /> <statusCode code="completed" /> <effectiveTime value="920273376643" /> <value unit="wbc/hpf" xsi:type="PQ" value="2-5 " /> <referenceRange> <observationRange> <text> 0 - 5</text> </observationRange> </referenceRange> </ observation> </component> <component> <observation moodCode= "EVN" classCode="OBS"> <templateId root="07.12.840.1.853836.10..22.4.2 " /> <id nullFlavor="NA" /> <code codeSystem="local" code= "SPGRU" displayName="UA SPECIFIC GRAVITY" /> <statusCode code= "completed" /> <effectiveTime value="063211777505" /> <value unit="" xsi:type="PQ" value="1.007" /> <interpretationCode codeSystem= "local" code="*" /> <referenceRange> <observationRange> <text>1.015-1.025</text> </observationRange> </ referenceRange> </observation> </component> <component> <observation moodCode="EVN" classCode="OBS"> <templateId root= "07.12.840.1.060632.10...4.2" /> <id nullFlavor="NA" /> < code codeSystem="local" code="WILLOW" displayName="UR PH" /> <statusCode code="completed" /> <effectiveTime value="901266850187" /> < value unit="" xsi:type="PQ" value="6.0" /> <referenceRange> <observationRange> <text>5.0-7.0</text> </ observationRange> </referenceRange> </observation> </ component> </organizer> </entry> <entry> <organizer moodCode="EVN" classCode="BATTERY"> <templateId root="16.840.1.761254.10..4.1" /> <id nullFlavor="NA" /> <code codeSystem="local" code="UC" displayName= "URINE CULTURE" /> <statusCode code="completed" /> <component> <observation moodCode="EVN" classCode="OBS"> <templateId root= "16.840.1.798722....4.2" /> <id nullFlavor="NA" /> < code codeSystem="local" code="MICRO" displayName="ICA_MICRO" /> < statusCode code="completed" /> <effectiveTime value="749158382567" /> <value unit="" xsi:type="PQ" value="" /> <referenceRange> <observationRange> <text /> </observationRange> </referenceRange> </observation> </component> </ organizer> </entry> <entry> <organizer moodCode="EVN" classCode="BATTERY"> <templateId root="16.840.1.899367.10..22.4.1" /> <id nullFlavor= "NA" /> <code codeSystem="local" code="CBCD" displayName="CBC W/DIFF" /> <statusCode code="completed" /> <component> <observation moodCode="EVN" classCode="OBS"> <templateId root= "07.12.840.1.534969.10.4.2" /> <id nullFlavor="NA" /> < code codeSystem="local" code="BA#" displayName="BASOPHIL #" /> < statusCode code="completed" /> <effectiveTime value="203939919364" /> <value unit="k/cumm" xsi:type="PQ" value="0.1" /> < referenceRange> <observationRange> <text>0.0-0.2</text> </observationRange> </referenceRange> </observation > </component> <component> <observation moodCode="EVN" classCode="OBS"> <templateId root="840.1.998899.03.15.224.2" /> <id nullFlavor="NA" /> <code codeSystem="local" code="BA% " displayName="BASOPHIL %" /> <statusCode code="completed" /> <effectiveTime value="219381829731" /> <value unit="%" xsi: type="PQ" value="1" /> <referenceRange> <observationRange> <text>0-1</text> </observationRange> </ referenceRange> </observation> </component> <component> <observation moodCode="EVN" classCode="OBS"> <templateId root= "07.12.840.1.474651.03.15.224.2" /> <id nullFlavor="NA" /> < code codeSystem="local" code="EO#" displayName="EOSINOPHIL #" /> < statusCode code="completed" /> <effectiveTime value="230332850310" /> <value unit="k/cumm" xsi:type="PQ" value="0.3" /> < referenceRange> <observationRange> <text>0.1-0.5</text> </observationRange> </referenceRange> </observation > </component> <component> <observation moodCode="EVN" classCode="OBS"> <templateId root="07.12.840.1.966283.102022.4.2" /> <id nullFlavor="NA" /> <code codeSystem="local" code="EO% " displayName="EOSINOPHIL %" /> <statusCode code="completed" /> <effectiveTime value="286977065908" /> <value unit="%" xsi: type="PQ" value="6" /> <interpretationCode codeSystem="local" code="*" /> <referenceRange> <observationRange> <text>2- 4</text> </observationRange> </referenceRange> </ observation> </component> <component> <observation moodCode= "EVN" classCode="OBS"> <templateId root="16.840.1.500766.10.4.2 " /> <id nullFlavor="NA" /> <code codeSystem="local" code="GR# " displayName="GRANULOCYTE #" /> <statusCode code="completed" /> <effectiveTime value="159880900612" /> <value unit="k/cumm" xsi: type="PQ" value="2.0" /> <referenceRange> <observationRange > <text>2.0-9.0</text> </observationRange> </ referenceRange> </observation> </component> <component> <observation moodCode="EVN" classCode="OBS"> <templateId root= "07.12.840.1.937674.1022.4.2" /> <id nullFlavor="NA" /> < code codeSystem="local" code="GR%" displayName="GRANULOCYTE %" /> <statusCode code="completed" /> <effectiveTime value=" " /> <value unit="%" xsi:type="PQ" value="36" /> < interpretationCode codeSystem="local" code="*" /> <referenceRange> <observationRange> <text>50-75</text> </ observationRange> </referenceRange> </observation> </ component> <component> <observation moodCode="EVN" classCode="OBS"> <templateId root="840.1.868110.03.15.22.4.2" /> <id nullFlavor="NA" /> <code codeSystem="local" code="LY#" displayName= "LYMPHOCYTE #" /> <statusCode code="completed" /> < effectiveTime value="" /> <value unit="k/cumm" xsi:type="PQ " value="2.6" /> <referenceRange> <observationRange> <text>1.0-4.0</text> </observationRange> </ referenceRange> </observation> </component> <component> <observation moodCode="EVN" classCode="OBS"> <templateId root= "07.12.840.1.834479.10.2022.4.2" /> <id nullFlavor="NA" /> < code codeSystem="local" code="LY%" displayName="LYMPHOCYTE %" /> <statusCode code="completed" /> <effectiveTime value="" /> <value unit="%" xsi:type="PQ" value="47" /> < interpretationCode codeSystem="local" code="*" /> <referenceRange> <observationRange> <text>20-30</text> </ observationRange> </referenceRange> </observation> </ component> <component> <observation moodCode="EVN" classCode="OBS"> <templateId root="216.840.1.958097.10..22.4.2" /> <id nullFlavor="NA" /> <code codeSystem="local" code="MCH" displayName= "MEAN CELL HGB" /> <statusCode code="completed" /> < effectiveTime value="917474434520" /> <value unit="pg" xsi:type="PQ" value="22.0" /> <interpretationCode codeSystem="local" code="*" /> <referenceRange> <observationRange> <text>27.0- 33.0</text> </observationRange> </referenceRange> </ observation> </component> <component> <observation moodCode= "EVN" classCode="OBS"> <templateId root="216.840.1.630971.10..4.2 " /> <id nullFlavor="NA" /> <code codeSystem="local" code= "MCHC" displayName="MEAN CELL HGB CONCENTRATION" /> <statusCode code= "completed" /> <effectiveTime value="707698507745" /> <value unit="g/dl" xsi:type="PQ" value="30.7" /> <interpretationCode codeSystem="local" code="*" /> <referenceRange> < observationRange> <text>32.0-36.0</text> </ observationRange> </referenceRange> </observation> </ component> <component> <observation moodCode="EVN" classCode="OBS"> <templateId root="216.840.1.409952..4.2" /> <id nullFlavor="NA" /> <code codeSystem="local" code="MCV" displayName= "MEAN CELL VOLUME" /> <statusCode code="completed" /> < effectiveTime value="" /> <value unit="fl" xsi:type="PQ" value="71.4" /> <interpretationCode codeSystem="local" code="*" /> <referenceRange> <observationRange> <text>80.0- 100.0</text> </observationRange> </referenceRange> </ observation> </component> <component> <observation moodCode= "EVN" classCode="OBS"> <templateId root="216.840.1.664677.03.15.224.2 " /> <id nullFlavor="NA" /> <code codeSystem="local" code="MO# " displayName="MONOCYTE #" /> <statusCode code="completed" /> <effectiveTime value="" /> <value unit="k/cumm" xsi:type= "PQ" value="0.6" /> <referenceRange> <observationRange> <text>0.1-1.0</text> </observationRange> </ referenceRange> </observation> </component> <component> <observation moodCode="EVN" classCode="OBS"> <templateId root= "216.840.1.782778.03.15.224.2" /> <id nullFlavor="NA" /> < code codeSystem="local" code="MO%" displayName="MONOCYTE %" /> <statusCode code="completed" /> <effectiveTime value="" /> <value unit="%" xsi:type="PQ" value="11" /> < interpretationCode codeSystem="local" code="*" /> <referenceRange> <observationRange> <text>4-6</text> </ observationRange> </referenceRange> </observation> </ component> <component> <observation moodCode="EVN" classCode="OBS"> <templateId root="216.840.1.132472.10.4.2" /> <id nullFlavor="NA" /> <code codeSystem="local" code="OVAL" displayName= "OVALOCYTES" /> <statusCode code="completed" /> < effectiveTime value="" /> <value unit="" xsi:type="PQ" value="NOTED" /> <referenceRange> <observationRange> <text /> </observationRange> </referenceRange> </observation> </component> <component> <observation moodCode ="EVN" classCode="OBS"> <templateId root= "07.12.840.1.247869.03.15.224.2" /> <id nullFlavor="NA" /> < code codeSystem="local" code="RBC" displayName="RED BLOOD CELL" /> < statusCode code="completed" /> <effectiveTime value="" /> <value unit="m/cumm" xsi:type="PQ" value="3.62" /> < interpretationCode codeSystem="local" code="*" /> <referenceRange> <observationRange> <text>4.00-6.00</text> </ observationRange> </referenceRange> </observation> </ component> <component> <observation moodCode="EVN" classCode="OBS"> <templateId root="16.840.1.977061.03.15.22.4.2" /> <id nullFlavor="NA" /> <code codeSystem="local" code="RDW" displayName=" RED CELL DISTRIBUTION WIDTH" /> <statusCode code="completed" /> <effectiveTime value="" /> <value unit="%" xsi:type= "PQ" value="20.5" /> <interpretationCode codeSystem="local" code="*" / > <referenceRange> <observationRange> <text> 11.0-15.6</text> </observationRange> </referenceRange> </observation> </component> <component> <observation moodCode="EVN" classCode="OBS"> <templateId root= "216.840.1.263981.10..22.4.2" /> <id nullFlavor="NA" /> < code codeSystem="local" code="WBC" displayName="WHITE BLOOD CELL" /> < statusCode code="completed" /> <effectiveTime value="" /> <value unit="k/cumm" xsi:type="PQ" value="5.6" /> < referenceRange> <observationRange> <text>5.0-10.0</text > </observationRange> </referenceRange> </observation > </component> <component> <observation moodCode="EVN" classCode="OBS"> <templateId root="216.840.1.792525.10..22.4.2" /> <id nullFlavor="NA" /> <code codeSystem="local" code="HGBT" displayName="HEMOGLOBIN" /> <statusCode code="completed" /> < effectiveTime value="" /> <value unit="gm/dL" xsi:type="PQ " value="7.9" /> <interpretationCode codeSystem="local" code="*" /> <referenceRange> <observationRange> <text>12.0- 16.0</text> </observationRange> </referenceRange> </ observation> </component> <component> <observation moodCode= "EVN" classCode="OBS"> <templateId root="16.840.1.081323.10..22.4.2 " /> <id nullFlavor="NA" /> <code codeSystem="local" code= "HCTT" displayName="HEMATOCRIT" /> <statusCode code="completed" /> <effectiveTime value="[id number]" /> <value unit="%" xsi: type="PQ" value="25.9" /> <interpretationCode codeSystem="local" code= "*" /> <referenceRange> <observationRange> < text>37.0-47.0</text> </observationRange> </referenceRange> </observation> </component> <component> <observation moodCode="EVN" classCode="OBS"> <templateId root= "07.12.840.1.047147.10.4.2" /> <id nullFlavor="NA" /> < code codeSystem="local" code="PLT" displayName="PLATELET COUNT" /> < statusCode code="completed" /> <effectiveTime value="[id number]" /> <value unit="k/cumm" xsi:type="PQ" value="252" /> < referenceRange> <observationRange> <text>150-450</text> </observationRange> </referenceRange> </observation > </component> </organizer> </entry> <entry> <organizer moodCode= "EVN" classCode="BATTERY"> <templateId root="07.12.840.1.561591.10.20.22.4.1 " /> <id nullFlavor="NA" /> <code codeSystem="local" code="RENAL" displayName="RENAL FUNCTION PANEL" /> <statusCode code="completed" /> <component> <observation moodCode="EVN" classCode="OBS"> < templateId root="07.12.840.1.825827.03.15.22.4.2" /> <id nullFlavor="NA " /> <code codeSystem="local" code="K" displayName="POTASSIUM" /> <statusCode code="completed" /> <effectiveTime value=" " /> <value unit="mmol/L" xsi:type="PQ" value="3.9" /> < referenceRange> <observationRange> <text>3.5-5.3</text> </observationRange> </referenceRange> </observation > </component> <component> <observation moodCode="EVN" classCode="OBS"> <templateId root="2.16.840.1.474179.03.15.22.4.2" /> <id nullFlavor="NA" /> <code codeSystem="local" code="eGFR" displayName="EST GFR (MDRD)" /> <statusCode code="completed" /> <effectiveTime value="" /> <value unit="mL/min" xsi:type ="PQ" value="> 60" /> <referenceRange> <observationRange > <text>> 59</text> </observationRange> </ referenceRange> </observation> </component> <component> <observation moodCode="EVN" classCode="OBS"> <templateId root= "216.840.1.613618.03.15.22.4.2" /> <id nullFlavor="NA" /> < code codeSystem="local" code="GAP" displayName="ANION GAP" /> < statusCode code="completed" /> <effectiveTime value="" /> <value unit="mmol/L" xsi:type="PQ" value="7" /> < referenceRange> <observationRange> <text>5-15</text> </observationRange> </referenceRange> </observation> </component> <component> <observation moodCode="EVN" classCode= "OBS"> <templateId root="216.840.1.129792.10..22.4.2" /> < id nullFlavor="NA" /> <code codeSystem="local" code="eCrCl" displayName ="EST CrCl (CG)" /> <statusCode code="completed" /> < effectiveTime value="" /> <value unit="mL/min" xsi:type="PQ " value="> 60" /> <referenceRange> <observationRange> <text>> 59</text> </observationRange> </ referenceRange> </observation> </component> <component> <observation moodCode="EVN" classCode="OBS"> <templateId root= "16.840.1.681659.10..4.2" /> <id nullFlavor="NA" /> < code codeSystem="local" code="GLU" displayName="GLUCOSE" /> < statusCode code="completed" /> <effectiveTime value="" /> <value unit="mg/dL" xsi:type="PQ" value="77" /> < referenceRange> <observationRange> <text>70-99</text> </observationRange> </referenceRange> </observation> </component> <component> <observation moodCode="EVN" classCode= "OBS"> <templateId root="07.12.840.1.520066.10..22.4.2" /> < id nullFlavor="NA" /> <code codeSystem="local" code="CA" displayName= "CALCIUM" /> <statusCode code="completed" /> <effectiveTime value="" /> <value unit="mg/dL" xsi:type="PQ" value="8.2" / > <interpretationCode codeSystem="local" code="*" /> < referenceRange> <observationRange> <text>8.5-10.1</text > </observationRange> </referenceRange> </observation > </component> <component> <observation moodCode="EVN" classCode="OBS"> <templateId root="16.840.1.822905.10..22.4.2" /> <id nullFlavor="NA" /> <code codeSystem="local" code="BUN" displayName="BLOOD UREA NITROGEN" /> <statusCode code="completed" /> <effectiveTime value="833328013925" /> <value unit="mg/dL" xsi: type="PQ" value="5" /> <interpretationCode codeSystem="local" code="*" /> <referenceRange> <observationRange> <text>7- 20</text> </observationRange> </referenceRange> </ observation> </component> <component> <observation moodCode= "EVN" classCode="OBS"> <templateId root="07.12.840.1.796267...4.2 " /> <id nullFlavor="NA" /> <code codeSystem="local" code= "CREAT" displayName="CREATININE" /> <statusCode code="completed" /> <effectiveTime value="005935755919" /> <value unit="mg/dL" xsi: type="PQ" value="0.6" /> <referenceRange> <observationRange > <text>0.6-1.0</text> </observationRange> </ referenceRange> </observation> </component> <component> <observation moodCode="EVN" classCode="OBS"> <templateId root= "16.840.1.231133.10..22.4.2" /> <id nullFlavor="NA" /> < code codeSystem="local" code="NA" displayName="SODIUM" /> <statusCode code="completed" /> <effectiveTime value="" /> < value unit="mmol/L" xsi:type="PQ" value="139" /> <referenceRange> <observationRange> <text>135-148</text> </ observationRange> </referenceRange> </observation> </ component> <component> <observation moodCode="EVN" classCode="OBS"> <templateId root="16.840.1.821128.10..22.4.2" /> <id nullFlavor="NA" /> <code codeSystem="local" code="CL" displayName= "CHLORIDE" /> <statusCode code="completed" /> <effectiveTime value="" /> <value unit="mmol/L" xsi:type="PQ" value="104" /> <referenceRange> <observationRange> <text>98 -110</text> </observationRange> </referenceRange> </ observation> </component> <component> <observation moodCode= "EVN" classCode="OBS"> <templateId root="07.12.840.1.486074.10..22.4.2 " /> <id nullFlavor="NA" /> <code codeSystem="local" code="CO2 " displayName="CARBON DIOXIDE" /> <statusCode code="completed" /> <effectiveTime value="" /> <value unit="mmol/L" xsi: type="PQ" value="28" /> <referenceRange> <observationRange> <text>21-32</text> </observationRange> </ referenceRange> </observation> </component> <component> <observation moodCode="EVN" classCode="OBS"> <templateId root= "07.12.840.1.381780.10.4.2" /> <id nullFlavor="NA" /> < code codeSystem="local" code="ALB" displayName="ALBUMIN" /> < statusCode code="completed" /> <effectiveTime value="" /> <value unit="gm/dL" xsi:type="PQ" value="3.3" /> < interpretationCode codeSystem="local" code="*" /> <referenceRange> <observationRange> <text>3.4-5.0</text> </ observationRange> </referenceRange> </observation> </ component> <component> <observation moodCode="EVN" classCode="OBS"> <templateId root="840.1.130347.03.15.22.4.2" /> <id nullFlavor="NA" /> <code codeSystem="local" code="PHOS" displayName= "PHOSPHORUS" /> <statusCode code="completed" /> < effectiveTime value="" /> <value unit="mg/dL" xsi:type="PQ " value="4.2" /> <referenceRange> <observationRange> <text>2.5-4.9</text> </observationRange> </ referenceRange> </observation> </component> </organizer> </entry > <entry> <organizer moodCode="EVN" classCode="BATTERY"> <templateId root="840.1.502821.03.15.22.4.1" /> <id nullFlavor="NA" /> <code codeSystem="local" code="HDLPRO" displayName="LIPID PANEL" /> <statusCode code="completed" /> <component> <observation moodCode="EVN" classCode="OBS"> <templateId root="840.1.645794.03.15.22.4.2" /> <id nullFlavor="NA" /> <code codeSystem="local" code="CHOL/HDL " displayName="CHOLESTEROL/HDL RATIO" /> <statusCode code="completed" / > <effectiveTime value="" /> <value unit="" xsi: type="PQ" value="2.2" /> <referenceRange> <observationRange > <text> < 5.0</text> </observationRange> </ referenceRange> </observation> </component> <component> <observation moodCode="EVN" classCode="OBS"> <templateId root= "07.12.840.1.898468.10..22.4.2" /> <id nullFlavor="NA" /> < code codeSystem="local" code="LDLX" displayName="LDL CHOLESTEROL" /> < statusCode code="completed" /> <effectiveTime value="" /> <value unit="mg/dL" xsi:type="PQ" value="78" /> < referenceRange> <observationRange> <text>< 100</text > </observationRange> </referenceRange> </observation > </component> <component> <observation moodCode="EVN" classCode="OBS"> <templateId root="07.12.840.1.695207.10.20.22.4.2" /> <id nullFlavor="NA" /> <code codeSystem="local" code="VLDL" displayName="VLDL CHOLESTEROL" /> <statusCode code="completed" /> <effectiveTime value="" /> <value unit="mg/dL" xsi: type="PQ" value="9" /> <referenceRange> <observationRange> <text>< 30</text> </observationRange> </ referenceRange> </observation> </component> <component> <observation moodCode="EVN" classCode="OBS"> <templateId root= "840.1.931161.10..22.4.2" /> <id nullFlavor="NA" /> < code codeSystem="local" code="TRIG" displayName="TRIGLYCERIDES" /> < statusCode code="completed" /> <effectiveTime value="" /> <value unit="mg/dL" xsi:type="PQ" value="47" /> < referenceRange> <observationRange> <text>< 150</text > </observationRange> </referenceRange> </observation > </component> <component> <observation moodCode="EVN" classCode="OBS"> <templateId root="216.840.1.887050.10..4.2" /> <id nullFlavor="NA" /> <code codeSystem="local" code="CHOL" displayName="CHOLESTEROL" /> <statusCode code="completed" /> < effectiveTime value="" /> <value unit="mg/dL" xsi:type="PQ " value="158" /> <referenceRange> <observationRange> <text>< 200</text> </observationRange> </ referenceRange> </observation> </component> <component> <observation moodCode="EVN" classCode="OBS"> <templateId root= "216.840.1.979373.10..4.2" /> <id nullFlavor="NA" /> < code codeSystem="local" code="HDL" displayName="HDL CHOLESTEROL" /> < statusCode code="completed" /> <effectiveTime value="" /> <value unit="mg/dL" xsi:type="PQ" value="71" /> < referenceRange> <observationRange> <text>> 39</text> </observationRange> </referenceRange> </observation > </component> </organizer> </entry> <entry> <organizer moodCode= "EVN" classCode="BATTERY"> <templateId root="840.1.462783.03.15.22.4.1 " /> <id nullFlavor="NA" /> <code codeSystem="local" code="MAG" displayName="MAGNESIUM" /> <statusCode code="completed" /> <component > <observation moodCode="EVN" classCode="OBS"> <templateId root= "840.1.937418.03.15.22.4.2" /> <id nullFlavor="NA" /> < code codeSystem="local" code="MAG" displayName="MAGNESIUM" /> < statusCode code="completed" /> <effectiveTime value="641055958149" /> <value unit="mg/dL" xsi:type="PQ" value="1.7" /> < interpretationCode codeSystem="local" code="*" /> <referenceRange> <observationRange> <text>1.8-2.4</text> </ observationRange> </referenceRange> </observation> </ component> </organizer> </entry> <entry> <organizer moodCode="EVN" classCode="BATTERY"> <templateId root="840.1.751134.03.15.22.4.1" /> <id nullFlavor="NA" /> <code codeSystem="local" code="HBA1C" displayName="HEMOGLOBIN A1C" /> <statusCode code="completed" /> < component> <observation moodCode="EVN" classCode="OBS"> < templateId root="840.1.905188.03.15.22.4.2" /> <id nullFlavor="NA " /> <code codeSystem="local" code="HBA1C" displayName="HEMOGLOBIN A1C " /> <statusCode code="completed" /> <effectiveTime value= "114912490126" /> <value unit="%" xsi:type="PQ" value="5.7" /> <interpretationCode codeSystem="local" code="*" /> < referenceRange> <observationRange> <text>< 5.7</text > </observationRange> </referenceRange> </observation > </component> </organizer> </entry> <entry> <organizer moodCode= "EVN" classCode="BATTERY"> <templateId root="216.840.1.724426.10..22.4.1 " /> <id nullFlavor="NA" /> <code codeSystem="local" code="GLUMON" displayName="GLUCOSE (POC)" /> <statusCode code="completed" /> < component> <observation moodCode="EVN" classCode="OBS"> < templateId root="216.840.1.795419.10..22.4.2" /> <id nullFlavor="NA " /> <code codeSystem="local" code="GLUMON" displayName="GLUCOSE (POC) " /> <statusCode code="completed" /> <effectiveTime value= "544922889149" /> <value unit="mg/dL" xsi:type="PQ" value="80" /> <referenceRange> <observationRange> <text>70-99</ text> </observationRange> </referenceRange> </ observation> </component> </organizer> </entry> <entry> <organizer moodCode="EVN" classCode="BATTERY"> <templateId root= "216.840.1.376635.10..22.4.1" /> <id nullFlavor="NA" /> <code codeSystem="local" code="GLUMON" displayName="GLUCOSE (POC)" /> < statusCode code="completed" /> <component> <observation moodCode= "EVN" classCode="OBS"> <templateId root="2.16.840.1.973205.10.20.22.4.2 " /> <id nullFlavor="NA" /> <code codeSystem="local" code= "GLUMON" displayName="GLUCOSE (POC)" /> <statusCode code="completed" / > <effectiveTime value="218130528872" /> <value unit="mg/dL" xsi:type="PQ" value="73" /> <referenceRange> < observationRange> <text>70-99</text> </observationRange > </referenceRange> </observation> </component> </ organizer> </entry> <entry> <organizer moodCode="EVN" classCode="BATTERY"> <templateId root="2.16.840.1.211762.10.20.22.4.1" /> <id nullFlavor= "NA" /> <code codeSystem="local" code="FOLRBC" displayName="FOLIC ACID, RBC " /> <statusCode code="completed" /> <component> <observation moodCode="EVN" classCode="OBS"> <templateId root= "2.16.840.1.519507.10.20.22.4.2" /> <id nullFlavor="NA" /> < code codeSystem="local" code="FOLRBCT" displayName="FOLIC ACID, RBC" /> <statusCode code="completed" /> <effectiveTime value="530117849982" / > <value unit="ng/mL" xsi:type="PQ" value="827" /> < interpretationCode codeSystem="local" code="*" /> <referenceRange> <observationRange> <text>280-791</text> </ observationRange> </referenceRange> </observation> </ component> <component> <observation moodCode="EVN" classCode="OBS"> <templateId root="07.12.840.1.425934.10.20.22.4.2" /> <id nullFlavor="NA" /> <code codeSystem="local" code="FOLATE,HCT" displayName="FOLATE, HCT" /> <statusCode code="completed" /> < effectiveTime value="" /> <value unit="%" xsi:type="PQ " value="27.9" /> <referenceRange> <observationRange> <text /> </observationRange> </referenceRange> </observation> </component> </organizer> </entry> <entry> < organizer moodCode="EVN" classCode="BATTERY"> <templateId root= "07.12.840.1.628969.10.20.22.4.1" /> <id nullFlavor="NA" /> <code codeSystem="local" code="FETIBC" displayName="IRON W/ BINDING CAPACITY" /> <statusCode code="completed" /> <component> <observation moodCode= "EVN" classCode="OBS"> <templateId root="07.12.840.1.508482.10.20.22.4.2 " /> <id nullFlavor="NA" /> <code codeSystem="local" code= "FESAT" displayName="IRON SATURATION" /> <statusCode code="completed" / > <effectiveTime value="798122047913" /> <value unit="%SAT " xsi:type="PQ" value="8" /> <interpretationCode codeSystem="local" code="*" /> <referenceRange> <observationRange> <text>11-46</text> </observationRange> </referenceRange> </observation> </component> <component> <observation moodCode="EVN" classCode="OBS"> <templateId root= "07.12.840.1.697664.10.22.4.2" /> <id nullFlavor="NA" /> < code codeSystem="local" code="TIBC" displayName="IRON BINDING CAPACITY, TOTAL" / > <statusCode code="completed" /> <effectiveTime value= "870069792004" /> <value unit="mcg/dL" xsi:type="PQ" value="414" /> <referenceRange> <observationRange> <text>250-450 </text> </observationRange> </referenceRange> </ observation> </component> <component> <observation moodCode= "EVN" classCode="OBS"> <templateId root="840.1.335278.03.15.22.4.2 " /> <id nullFlavor="NA" /> <code codeSystem="local" code= "IRON" displayName="IRON" /> <statusCode code="completed" /> < effectiveTime value="113880539557" /> <value unit="mcg/dL" xsi:type="PQ " value="32" /> <interpretationCode codeSystem="local" code="*" /> <referenceRange> <observationRange> <text>35-150</ text> </observationRange> </referenceRange> </ observation> </component> </organizer> </entry> <entry> <organizer moodCode="EVN" classCode="BATTERY"> <templateId root= "07.12.840.1.207098.22.4.1" /> <id nullFlavor="NA" /> <code codeSystem="local" code="LEANNE" displayName="FERRITIN" /> <statusCode code= "completed" /> <component> <observation moodCode="EVN" classCode= "OBS"> <templateId root="07.12.840.1.598287.22.4.2" /> < id nullFlavor="NA" /> <code codeSystem="local" code="LEANNE" displayName= "FERRITIN" /> <statusCode code="completed" /> <effectiveTime value="097057303637" /> <value unit="ng/mL" xsi:type="PQ" value="4" /> <interpretationCode codeSystem="local" code="*" /> < referenceRange> <observationRange> <text>8-252</text> </observationRange> </referenceRange> </observation> </component> </organizer> </entry> <entry> <organizer moodCode="EVN " classCode="BATTERY"> <templateId root="216.840.1.063221.10..22.4.1" / > <id nullFlavor="NA" /> <code codeSystem="local" code="VITB12" displayName="VITAMIN B12" /> <statusCode code="completed" /> < component> <observation moodCode="EVN" classCode="OBS"> < templateId root="216.840.1.479059.10..22.4.2" /> <id nullFlavor="NA " /> <code codeSystem="local" code="VITB12" displayName="VITAMIN B12" / > <statusCode code="completed" /> <effectiveTime value= "673243524173" /> <value unit="pg/mL" xsi:type="PQ" value="642" /> <referenceRange> <observationRange> <text>211911< /text> </observationRange> </referenceRange> </ observation> </component> </organizer> </entry> <entry> <organizer moodCode="EVN" classCode="BATTERY"> <templateId root= "216.840.1.343605.10..22.4.1" /> <id nullFlavor="NA" /> <code codeSystem="local" code="TSH" displayName="THYROID STIM HORMONE (TSH)" /> < statusCode code="completed" /> <component> <observation moodCode= "EVN" classCode="OBS"> <templateId root="16.840.1.276824.10..22.4.2 " /> <id nullFlavor="NA" /> <code codeSystem="local" code="TSH " displayName="THYROID STIM HORMONE (TSH)" /> <statusCode code= "completed" /> <effectiveTime value="396235657830" /> <value unit="uIU/mL" xsi:type="PQ" value="0.94" /> <referenceRange> <observationRange> <text>0.34-4.82</text> </ observationRange> </referenceRange> </observation> </ component> </organizer> </entry> <entry> <organizer moodCode="EVN" classCode="BATTERY"> <templateId root="07.12.840.1.220114.10..22.4.1" /> <id nullFlavor="NA" /> <code codeSystem="local" code="TROPI" displayName="TROPONIN I" /> <statusCode code="completed" /> <component > <observation moodCode="EVN" classCode="OBS"> <templateId root= "16.840.1.008902.10.22.4.2" /> <id nullFlavor="NA" /> < code codeSystem="local" code="TROPI" displayName="TROPONIN I" /> < statusCode code="completed" /> <effectiveTime value="420748778017" /> <value unit="ng/mL" xsi:type="PQ" value="< 0.02" /> < referenceRange> <observationRange> <text>< 0.07</text > </observationRange> </referenceRange> </observation > </component> </organizer> </entry> <entry> <organizer moodCode= "EVN" classCode="BATTERY"> <templateId root="840.1.663436.10..4.1 " /> <id nullFlavor="NA" /> <code codeSystem="local" code="DIMER" displayName="D-DIMER QUANT" /> <statusCode code="completed" /> < component> <observation moodCode="EVN" classCode="OBS"> < templateId root="840.1.060747.03.15.22.4.2" /> <id nullFlavor="NA " /> <code codeSystem="local" code="DIMER" displayName="D-DIMER QUANT" /> <statusCode code="completed" /> <effectiveTime value= "369450495750" /> <value unit="ng/mL" xsi:type="PQ" value="< 150" / > <referenceRange> <observationRange> <text>0- 229</text> </observationRange> </referenceRange> </ observation> </component> </organizer> </entry> <entry> <organizer moodCode="EVN" classCode="BATTERY"> <templateId root= "840.1.207125.03.15.22.4.1" /> <id nullFlavor="NA" /> <code codeSystem="local" code="GLUMON" displayName="GLUCOSE (POC)" /> < statusCode code="completed" /> <component> <observation moodCode= "EVN" classCode="OBS"> <templateId root="07.12.840.1.202906.10...4.2 " /> <id nullFlavor="NA" /> <code codeSystem="local" code= "GLUMON" displayName="GLUCOSE (POC)" /> <statusCode code="completed" / > <effectiveTime value="931364114604" /> <value unit="mg/dL" xsi:type="PQ" value="66" /> <interpretationCode codeSystem="local" code ="*" /> <referenceRange> <observationRange> < text>70-99</text> </observationRange> </referenceRange> </observation> </component> </organizer> </entry> <entry> < organizer moodCode="EVN" classCode="BATTERY"> <templateId root= "216.840.1.085084.10.20.22.4.1" /> <id nullFlavor="NA" /> <code codeSystem="local" code="GLUMON" displayName="GLUCOSE (POC)" /> < statusCode code="completed" /> <component> <observation moodCode= "EVN" classCode="OBS"> <templateId root="16.840.1.276744.10.20.22.4.2 " /> <id nullFlavor="NA" /> <code codeSystem="local" code= "GLUMON" displayName="GLUCOSE (POC)" /> <statusCode code="completed" / > <effectiveTime value="376762950695" /> <value unit="mg/dL" xsi:type="PQ" value="141" /> <interpretationCode codeSystem="local" code="*" /> <referenceRange> <observationRange> <text>70-99</text> </observationRange> </referenceRange> </observation> </component> </organizer> </entry> <entry> < organizer moodCode="EVN" classCode="BATTERY"> <templateId root= "16.840.1.148334.10.20.22.4.1" /> <id nullFlavor="NA" /> <code codeSystem="local" code="MAG" displayName="MAGNESIUM" /> <statusCode code= "completed" /> <component> <observation moodCode="EVN" classCode= "OBS"> <templateId root="2.16.840.1.634551.10..22.4.2" /> < id nullFlavor="NA" /> <code codeSystem="local" code="MAG" displayName= "MAGNESIUM" /> <statusCode code="completed" /> <effectiveTime value="070449934090" /> <value unit="mg/dL" xsi:type="PQ" value="2.3" / > <referenceRange> <observationRange> <text>1.8 -2.4</text> </observationRange> </referenceRange> </ observation> </component> </organizer> </entry> <entry> <organizer moodCode="EVN" classCode="BATTERY"> <templateId root= "216.840.1.209100.10..22.4.1" /> <id nullFlavor="NA" /> <code codeSystem="local" code="GLUMON" displayName="GLUCOSE (POC)" /> < statusCode code="completed" /> <component> <observation moodCode= "EVN" classCode="OBS"> <templateId root="216.840.1.886078.10..22.4.2 " /> <id nullFlavor="NA" /> <code codeSystem="local" code= "GLUMON" displayName="GLUCOSE (POC)" /> <statusCode code="completed" / > <effectiveTime value="807301014779" /> <value unit="mg/dL" xsi:type="PQ" value="71" /> <referenceRange> < observationRange> <text>70-99</text> </observationRange > </referenceRange> </observation> </component> </ organizer> </entry> <entry> <organizer moodCode="EVN" classCode="BATTERY"> <templateId root="216.840.1.752937.10..22.4.1" /> <id nullFlavor= "NA" /> <code codeSystem="local" code="CBCM" displayName="CBC W/MANUAL DIFF " /> <statusCode code="completed" /> <component> <observation moodCode="EVN" classCode="OBS"> <templateId root= "216.840.1.638402.10...4.2" /> <id nullFlavor="NA" /> < code codeSystem="local" code="MCH" displayName="MEAN CELL HGB" /> < statusCode code="completed" /> <effectiveTime value="" /> <value unit="pg" xsi:type="PQ" value="20.9" /> < interpretationCode codeSystem="local" code="*" /> <referenceRange> <observationRange> <text>27.0-33.0</text> </ observationRange> </referenceRange> </observation> </ component> <component> <observation moodCode="EVN" classCode="OBS"> <templateId root="216.840.1.740543.10...4.2" /> <id nullFlavor="NA" /> <code codeSystem="local" code="MCHC" displayName= "MEAN CELL HGB CONCENTRATION" /> <statusCode code="completed" /> <effectiveTime value="" /> <value unit="g/dl" xsi:type= "PQ" value="28.4" /> <interpretationCode codeSystem="local" code="*" / > <referenceRange> <observationRange> <text> 32.0-36.0</text> </observationRange> </referenceRange> </observation> </component> <component> <observation moodCode="EVN" classCode="OBS"> <templateId root= "216.840.1.084707.10..22.4.2" /> <id nullFlavor="NA" /> < code codeSystem="local" code="MCV" displayName="MEAN CELL VOLUME" /> < statusCode code="completed" /> <effectiveTime value="" /> <value unit="fl" xsi:type="PQ" value="73.6" /> < interpretationCode codeSystem="local" code="*" /> <referenceRange> <observationRange> <text>80.0-100.0</text> </ observationRange> </referenceRange> </observation> </ component> <component> <observation moodCode="EVN" classCode="OBS"> <templateId root="16.840.1.599436.03.15.22.4.2" /> <id nullFlavor="NA" /> <code codeSystem="local" code="RBC" displayName=" RED BLOOD CELL" /> <statusCode code="completed" /> < effectiveTime value="" /> <value unit="m/cumm" xsi:type="PQ " value="4.06" /> <referenceRange> <observationRange> <text>4.00-6.00</text> </observationRange> </ referenceRange> </observation> </component> <component> <observation moodCode="EVN" classCode="OBS"> <templateId root= "216.840.1.264772.10..4.2" /> <id nullFlavor="NA" /> < code codeSystem="local" code="RDW" displayName="RED CELL DISTRIBUTION WIDTH" /> <statusCode code="completed" /> <effectiveTime value= "" /> <value unit="%" xsi:type="PQ" value="18.6" /> <interpretationCode codeSystem="local" code="*" /> < referenceRange> <observationRange> <text>11.0-15.6</text > </observationRange> </referenceRange> </observation > </component> <component> <observation moodCode="EVN" classCode="OBS"> <templateId root="2.16.840.1.806267.03.15.22.4.2" /> <id nullFlavor="NA" /> <code codeSystem="local" code="WBC" displayName="WHITE BLOOD CELL" /> <statusCode code="completed" /> <effectiveTime value="" /> <value unit="k/cumm" xsi: type="PQ" value="6.3" /> <referenceRange> <observationRange > <text>5.0-10.0</text> </observationRange> </ referenceRange> </observation> </component> <component> <observation moodCode="EVN" classCode="OBS"> <templateId root= "2.16.840.1.816994.03.15.224.2" /> <id nullFlavor="NA" /> < code codeSystem="local" code="HGBT" displayName="HEMOGLOBIN" /> < statusCode code="completed" /> <effectiveTime value="" /> <value unit="gm/dL" xsi:type="PQ" value="8.5" /> < interpretationCode codeSystem="local" code="*" /> <referenceRange> <observationRange> <text>12.0-16.0</text> </ observationRange> </referenceRange> </observation> </ component> <component> <observation moodCode="EVN" classCode="OBS"> <templateId root="2.840.1.140275..22.4.2" /> <id nullFlavor="NA" /> <code codeSystem="local" code="HCTT" displayName= "HEMATOCRIT" /> <statusCode code="completed" /> < effectiveTime value="" /> <value unit="%" xsi:type="PQ " value="29.9" /> <interpretationCode codeSystem="local" code="*" /> <referenceRange> <observationRange> <text>37.0- 47.0</text> </observationRange> </referenceRange> </ observation> </component> <component> <observation moodCode= "EVN" classCode="OBS"> <templateId root="840.1.808395.03.15.22.4.2 " /> <id nullFlavor="NA" /> <code codeSystem="local" code="PLT " displayName="PLATELET COUNT" /> <statusCode code="completed" /> <effectiveTime value="" /> <value unit="k/cumm" xsi: type="PQ" value="269" /> <referenceRange> <observationRange > <text>150-450</text> </observationRange> </ referenceRange> </observation> </component> </organizer> </entry > <entry> <organizer moodCode="EVN" classCode="BATTERY"> <templateId root="07.12.840.1.702120.22.4.1" /> <id nullFlavor="NA" /> <code codeSystem="local" code="DIFFMORD" displayName="MANUAL DIFF(O)" /> < statusCode code="completed" /> <component> <observation moodCode= "EVN" classCode="OBS"> <templateId root="07.12.840.1.476830.10.4.2 " /> <id nullFlavor="NA" /> <code codeSystem="local" code= "BAND%" displayName="BAND %" /> <statusCode code="completed" / > <effectiveTime value="" /> <value unit="%" xsi:type="PQ" value="1" /> <referenceRange> < observationRange> <text>0-10</text> </observationRange> </referenceRange> </observation> </component> < component> <observation moodCode="EVN" classCode="OBS"> < templateId root="2.16.840.1.126970.03.15.224.2" /> <id nullFlavor="NA " /> <code codeSystem="local" code="EO#" displayName="EOSINOPHIL #" /> <statusCode code="completed" /> <effectiveTime value= "" /> <value unit="k/cumm" xsi:type="PQ" value="0.1" /> <referenceRange> <observationRange> <text>0.1-0.5 </text> </observationRange> </referenceRange> </ observation> </component> <component> <observation moodCode= "EVN" classCode="OBS"> <templateId root="2.16.840.1.467663.03.15.224.2 " /> <id nullFlavor="NA" /> <code codeSystem="local" code="EO& #37;" displayName="EOSINOPHIL %" /> <statusCode code="completed" / > <effectiveTime value="" /> <value unit="%" xsi:type="PQ" value="2" /> <referenceRange> < observationRange> <text>2-4</text> </observationRange> </referenceRange> </observation> </component> < component> <observation moodCode="EVN" classCode="OBS"> < templateId root="16.840.1.360446.03.15.22.4.2" /> <id nullFlavor="NA " /> <code codeSystem="local" code="GR#" displayName="GRANULOCYTE #" / > <statusCode code="completed" /> <effectiveTime value= "" /> <value unit="k/cumm" xsi:type="PQ" value="4.0" /> <referenceRange> <observationRange> <text>2.0-9.0 </text> </observationRange> </referenceRange> </ observation> </component> <component> <observation moodCode= "EVN" classCode="OBS"> <templateId root="07.12.840.1.272519.03.15.22.4.2 " /> <id nullFlavor="NA" /> <code codeSystem="local" code="LY# " displayName="LYMPHOCYTE #" /> <statusCode code="completed" /> <effectiveTime value="" /> <value unit="k/cumm" xsi:type ="PQ" value="1.7" /> <referenceRange> <observationRange> <text>1.0-4.0</text> </observationRange> </ referenceRange> </observation> </component> <component> <observation moodCode="EVN" classCode="OBS"> <templateId root= "07.12.840.1.687696.10.22.4.2" /> <id nullFlavor="NA" /> < code codeSystem="local" code="LY%" displayName="LYMPHOCYTE %" /> <statusCode code="completed" /> <effectiveTime value="" /> <value unit="%" xsi:type="PQ" value="27" /> < referenceRange> <observationRange> <text>20-30</text> </observationRange> </referenceRange> </observation> </component> <component> <observation moodCode="EVN" classCode= "OBS"> <templateId root="07.12.840.1.555146.10.4.2" /> < id nullFlavor="NA" /> <code codeSystem="local" code="MANDIFF" displayName="DIFFERENTIAL" /> <statusCode code="completed" /> <effectiveTime value="" /> <value unit="" xsi:type="PQ" value="MANUAL" /> <referenceRange> <observationRange> <text /> </observationRange> </referenceRange> </observation> </component> <component> <observation moodCode="EVN" classCode="OBS"> <templateId root= "840.1.916570.03.15.22.4.2" /> <id nullFlavor="NA" /> < code codeSystem="local" code="MO#" displayName="MONOCYTE #" /> < statusCode code="completed" /> <effectiveTime value="" /> <value unit="k/cumm" xsi:type="PQ" value="0.4" /> < referenceRange> <observationRange> <text>0.1-1.0</text> </observationRange> </referenceRange> </observation > </component> <component> <observation moodCode="EVN" classCode="OBS"> <templateId root="07.12.840.1.078574.104.2" /> <id nullFlavor="NA" /> <code codeSystem="local" code="MO% " displayName="MONOCYTE %" /> <statusCode code="completed" /> <effectiveTime value="" /> <value unit="%" xsi: type="PQ" value="7" /> <interpretationCode codeSystem="local" code="*" /> <referenceRange> <observationRange> <text>4- 6</text> </observationRange> </referenceRange> </ observation> </component> <component> <observation moodCode= "EVN" classCode="OBS"> <templateId root="216.840.1.846488.03.15.22.4.2 " /> <id nullFlavor="NA" /> <code codeSystem="local" code= "OVAL" displayName="OVALOCYTES" /> <statusCode code="completed" /> <effectiveTime value="" /> <value unit="" xsi:type= "PQ" value="NOTED" /> <referenceRange> <observationRange> <text /> </observationRange> </referenceRange> </observation> </component> <component> <observation moodCode="EVN" classCode="OBS"> <templateId root= "216.840.1.498594.03.15.22.4.2" /> <id nullFlavor="NA" /> < code codeSystem="local" code="SEG%" displayName="SEGMENTED NEUTROPHIL % " /> <statusCode code="completed" /> <effectiveTime value= "" /> <value unit="%" xsi:type="PQ" value="63" /> <referenceRange> <observationRange> <text>50-70</ text> </observationRange> </referenceRange> </ observation> </component> </organizer> </entry> <entry> <organizer moodCode="EVN" classCode="BATTERY"> <templateId root= "216.840.1.515337.03.15.22.4.1" /> <id nullFlavor="NA" /> <code codeSystem="local" code="RENAL" displayName="RENAL FUNCTION PANEL" /> < statusCode code="completed" /> <component> <observation moodCode= "EVN" classCode="OBS"> <templateId root="07.12.840.1.123586.10..4.2 " /> <id nullFlavor="NA" /> <code codeSystem="local" code="K" displayName="POTASSIUM" /> <statusCode code="completed" /> < effectiveTime value="[id number]" /> <value unit="mmol/L" xsi:type="PQ " value="4.0" /> <referenceRange> <observationRange> <text>3.5-5.3</text> </observationRange> </ referenceRange> </observation> </component> <component> <observation moodCode="EVN" classCode="OBS"> <templateId root= "840.1.624656.03.15.22.4.2" /> <id nullFlavor="NA" /> < code codeSystem="local" code="eGFR" displayName="EST GFR (MDRD)" /> < statusCode code="completed" /> <effectiveTime value="[id number]" /> <value unit="mL/min" xsi:type="PQ" value="> 60" /> < referenceRange> <observationRange> <text>> 59</text> </observationRange> </referenceRange> </observation > </component> <component> <observation moodCode="EVN" classCode="OBS"> <templateId root="07.12.840.1.974942.10...4.2" /> <id nullFlavor="NA" /> <code codeSystem="local" code="GAP" displayName="ANION GAP" /> <statusCode code="completed" /> < effectiveTime value="" /> <value unit="mmol/L" xsi:type="PQ " value="6" /> <referenceRange> <observationRange> <text>5-15</text> </observationRange> </referenceRange > </observation> </component> <component> <observation moodCode="EVN" classCode="OBS"> <templateId root= "216.840.1.105374.10..22.4.2" /> <id nullFlavor="NA" /> < code codeSystem="local" code="eCrCl" displayName="EST CrCl (CG)" /> < statusCode code="completed" /> <effectiveTime value="" /> <value unit="mL/min" xsi:type="PQ" value="> 60" /> < referenceRange> <observationRange> <text>> 59</text> </observationRange> </referenceRange> </observation > </component> <component> <observation moodCode="EVN" classCode="OBS"> <templateId root="16.840.1.520278.10..22.4.2" /> <id nullFlavor="NA" /> <code codeSystem="local" code="GLU" displayName="GLUCOSE" /> <statusCode code="completed" /> < effectiveTime value="" /> <value unit="mg/dL" xsi:type="PQ " value="66" /> <interpretationCode codeSystem="local" code="*" /> <referenceRange> <observationRange> <text>70-99</ text> </observationRange> </referenceRange> </ observation> </component> <component> <observation moodCode= "EVN" classCode="OBS"> <templateId root="07.12.840.1.806543.10..22.4.2 " /> <id nullFlavor="NA" /> <code codeSystem="local" code="CA " displayName="CALCIUM" /> <statusCode code="completed" /> < effectiveTime value="" /> <value unit="mg/dL" xsi:type="PQ " value="8.2" /> <interpretationCode codeSystem="local" code="*" /> <referenceRange> <observationRange> <text>8.5- 10.1</text> </observationRange> </referenceRange> </ observation> </component> <component> <observation moodCode= "EVN" classCode="OBS"> <templateId root="07.12.840.1.462903.10..22.4.2 " /> <id nullFlavor="NA" /> <code codeSystem="local" code="BUN " displayName="BLOOD UREA NITROGEN" /> <statusCode code="completed" /> <effectiveTime value="" /> <value unit="mg/dL" xsi:type="PQ" value="5" /> <interpretationCode codeSystem="local" code= "*" /> <referenceRange> <observationRange> < text>7-20</text> </observationRange> </referenceRange> </observation> </component> <component> <observation moodCode="EVN" classCode="OBS"> <templateId root= "07.12.840.1.007662.10..22.4.2" /> <id nullFlavor="NA" /> < code codeSystem="local" code="CREAT" displayName="CREATININE" /> < statusCode code="completed" /> <effectiveTime value="" /> <value unit="mg/dL" xsi:type="PQ" value="0.7" /> < referenceRange> <observationRange> <text>0.6-1.0</text> </observationRange> </referenceRange> </observation > </component> <component> <observation moodCode="EVN" classCode="OBS"> <templateId root="216.840.1.709144.10..4.2" /> <id nullFlavor="NA" /> <code codeSystem="local" code="NA" displayName="SODIUM" /> <statusCode code="completed" /> < effectiveTime value="" /> <value unit="mmol/L" xsi:type="PQ " value="136" /> <referenceRange> <observationRange> <text>135-148</text> </observationRange> </ referenceRange> </observation> </component> <component> <observation moodCode="EVN" classCode="OBS"> <templateId root= "07.12.840.1.773352.10.4.2" /> <id nullFlavor="NA" /> < code codeSystem="local" code="CL" displayName="CHLORIDE" /> < statusCode code="completed" /> <effectiveTime value="" /> <value unit="mmol/L" xsi:type="PQ" value="103" /> < referenceRange> <observationRange> <text>98-110</text> </observationRange> </referenceRange> </observation> </component> <component> <observation moodCode="EVN" classCode ="OBS"> <templateId root="07.12.840.1.865802.10.22.4.2" /> < id nullFlavor="NA" /> <code codeSystem="local" code="CO2" displayName= "CARBON DIOXIDE" /> <statusCode code="completed" /> < effectiveTime value="" /> <value unit="mmol/L" xsi:type="PQ " value="27" /> <referenceRange> <observationRange> <text>21-32</text> </observationRange> </ referenceRange> </observation> </component> <component> <observation moodCode="EVN" classCode="OBS"> <templateId root= "216.840.1.755983.10...4.2" /> <id nullFlavor="NA" /> < code codeSystem="local" code="ALB" displayName="ALBUMIN" /> < statusCode code="completed" /> <effectiveTime value="[id number]" /> <value unit="gm/dL" xsi:type="PQ" value="3.3" /> < interpretationCode codeSystem="local" code="*" /> <referenceRange> <observationRange> <text>3.4-5.0</text> </ observationRange> </referenceRange> </observation> </ component> <component> <observation moodCode="EVN" classCode="OBS"> <templateId root="16.840.1.503854...4.2" /> <id nullFlavor="NA" /> <code codeSystem="local" code="PHOS" displayName= "PHOSPHORUS" /> <statusCode code="completed" /> < effectiveTime value="752624365550" /> <value unit="mg/dL" xsi:type="PQ " value="3.8" /> <referenceRange> <observationRange> <text>2.5-4.9</text> </observationRange> </ referenceRange> </observation> </component> </organizer> </entry > <entry> <organizer moodCode="EVN" classCode="BATTERY"> <templateId root="216.840.1.202661.10..4.1" /> <id nullFlavor="NA" /> <code codeSystem="local" code="MAG" displayName="MAGNESIUM" /> <statusCode code= "completed" /> <component> <observation moodCode="EVN" classCode= "OBS"> <templateId root="07.12.840.1.202377.03.15.22.4.2" /> < id nullFlavor="NA" /> <code codeSystem="local" code="MAG" displayName= "MAGNESIUM" /> <statusCode code="completed" /> <effectiveTime value="384918817671" /> <value unit="mg/dL" xsi:type="PQ" value="1.9" / > <referenceRange> <observationRange> <text>1.8 -2.4</text> </observationRange> </referenceRange> </ observation> </component> </organizer> </entry> <entry> <organizer moodCode="EVN" classCode="BATTERY"> <templateId root= "840.1.771910.03.15.22.4.1" /> <id nullFlavor="NA" /> <code codeSystem="local" code="GLUMON" displayName="GLUCOSE (POC)" /> < statusCode code="completed" /> <component> <observation moodCode= "EVN" classCode="OBS"> <templateId root="07.12.840.1.579867.03.15.22.4.2 " /> <id nullFlavor="NA" /> <code codeSystem="local" code= "GLUMON" displayName="GLUCOSE (POC)" /> <statusCode code="completed" / > <effectiveTime value="459633935261" /> <value unit="mg/dL" xsi:type="PQ" value="67" /> <interpretationCode codeSystem="local" code ="*" /> <referenceRange> <observationRange> < text>70-99</text> </observationRange> </referenceRange> </observation> </component> </organizer> </entry> <entry> < organizer moodCode="EVN" classCode="BATTERY"> <templateId root= "216.840.1.011866.10..4.1" /> <id nullFlavor="NA" /> <code codeSystem="local" code="CBCD" displayName="CBC W/DIFF" /> <statusCode code ="completed" /> <component> <observation moodCode="EVN" classCode= "OBS"> <templateId root="216.840.1.342693.03.15.22.4.2" /> < id nullFlavor="NA" /> <code codeSystem="local" code="BA#" displayName= "BASOPHIL #" /> <statusCode code="completed" /> < effectiveTime value="" /> <value unit="k/cumm" xsi:type="PQ " value="0.1" /> <referenceRange> <observationRange> <text>0.0-0.2</text> </observationRange> </ referenceRange> </observation> </component> <component> <observation moodCode="EVN" classCode="OBS"> <templateId root= "216.840.1.221418.03.15.22.4.2" /> <id nullFlavor="NA" /> < code codeSystem="local" code="BA%" displayName="BASOPHIL %" /> <statusCode code="completed" /> <effectiveTime value="" /> <value unit="%" xsi:type="PQ" value="1" /> < referenceRange> <observationRange> <text>0-1</text> </observationRange> </referenceRange> </observation> </component> <component> <observation moodCode="EVN" classCode= "OBS"> <templateId root="16.840.1.342108.03.15.22.4.2" /> < id nullFlavor="NA" /> <code codeSystem="local" code="EO#" displayName= "EOSINOPHIL #" /> <statusCode code="completed" /> < effectiveTime value="" /> <value unit="k/cumm" xsi:type="PQ " value="0.2" /> <referenceRange> <observationRange> <text>0.1-0.5</text> </observationRange> </ referenceRange> </observation> </component> <component> <observation moodCode="EVN" classCode="OBS"> <templateId root= "07.12.840.1.289113.03.15.224.2" /> <id nullFlavor="NA" /> < code codeSystem="local" code="EO%" displayName="EOSINOPHIL %" /> <statusCode code="completed" /> <effectiveTime value="" /> <value unit="%" xsi:type="PQ" value="2" /> < referenceRange> <observationRange> <text>2-4</text> </observationRange> </referenceRange> </observation> </component> <component> <observation moodCode="EVN" classCode= "OBS"> <templateId root="07.12.840.1.164065.10.4.2" /> < id nullFlavor="NA" /> <code codeSystem="local" code="GR#" displayName= "GRANULOCYTE #" /> <statusCode code="completed" /> < effectiveTime value="" /> <value unit="k/cumm" xsi:type="PQ " value="4.2" /> <referenceRange> <observationRange> <text>2.0-9.0</text> </observationRange> </ referenceRange> </observation> </component> <component> <observation moodCode="EVN" classCode="OBS"> <templateId root= "07.12.840.1.677609.10.20.22.4.2" /> <id nullFlavor="NA" /> < code codeSystem="local" code="GR%" displayName="GRANULOCYTE %" /> <statusCode code="completed" /> <effectiveTime value=" " /> <value unit="%" xsi:type="PQ" value="51" /> < referenceRange> <observationRange> <text>50-75</text> </observationRange> </referenceRange> </observation> </component> <component> <observation moodCode="EVN" classCode= "OBS"> <templateId root="840.1.043791.10.22.4.2" /> < id nullFlavor="NA" /> <code codeSystem="local" code="LY#" displayName= "LYMPHOCYTE #" /> <statusCode code="completed" /> < effectiveTime value="" /> <value unit="k/cumm" xsi:type="PQ " value="3.2" /> <referenceRange> <observationRange> <text>1.0-4.0</text> </observationRange> </ referenceRange> </observation> </component> <component> <observation moodCode="EVN" classCode="OBS"> <templateId root= "07.12.840.1.121488.10.20.22.4.2" /> <id nullFlavor="NA" /> < code codeSystem="local" code="LY%" displayName="LYMPHOCYTE %" /> <statusCode code="completed" /> <effectiveTime value="" /> <value unit="%" xsi:type="PQ" value="39" /> < interpretationCode codeSystem="local" code="*" /> <referenceRange> <observationRange> <text>20-30</text> </ observationRange> </referenceRange> </observation> </ component> <component> <observation moodCode="EVN" classCode="OBS"> <templateId root="216.840.1.803039.10..22.4.2" /> <id nullFlavor="NA" /> <code codeSystem="local" code="MCH" displayName= "MEAN CELL HGB" /> <statusCode code="completed" /> < effectiveTime value="" /> <value unit="pg" xsi:type="PQ" value="21.2" /> <interpretationCode codeSystem="local" code="*" /> <referenceRange> <observationRange> <text>27.0- 33.0</text> </observationRange> </referenceRange> </ observation> </component> <component> <observation moodCode= "EVN" classCode="OBS"> <templateId root="216.840.1.139188.10..22.4.2 " /> <id nullFlavor="NA" /> <code codeSystem="local" code= "MCHC" displayName="MEAN CELL HGB CONCENTRATION" /> <statusCode code= "completed" /> <effectiveTime value="" /> <value unit="g/dl" xsi:type="PQ" value="29.0" /> <interpretationCode codeSystem="local" code="*" /> <referenceRange> < observationRange> <text>32.0-36.0</text> </ observationRange> </referenceRange> </observation> </ component> <component> <observation moodCode="EVN" classCode="OBS"> <templateId root="07.12.840.1.774989.22.4.2" /> <id nullFlavor="NA" /> <code codeSystem="local" code="MCV" displayName= "MEAN CELL VOLUME" /> <statusCode code="completed" /> < effectiveTime value="" /> <value unit="fl" xsi:type="PQ" value="73.2" /> <interpretationCode codeSystem="local" code="*" /> <referenceRange> <observationRange> <text>80.0- 100.0</text> </observationRange> </referenceRange> </ observation> </component> <component> <observation moodCode= "EVN" classCode="OBS"> <templateId root="840.1.227110.03.15.224.2 " /> <id nullFlavor="NA" /> <code codeSystem="local" code="MO# " displayName="MONOCYTE #" /> <statusCode code="completed" /> <effectiveTime value="" /> <value unit="k/cumm" xsi:type= "PQ" value="0.6" /> <referenceRange> <observationRange> <text>0.1-1.0</text> </observationRange> </ referenceRange> </observation> </component> <component> <observation moodCode="EVN" classCode="OBS"> <templateId root= "07.12.840.1.438274.10..4.2" /> <id nullFlavor="NA" /> < code codeSystem="local" code="MO%" displayName="MONOCYTE %" /> <statusCode code="completed" /> <effectiveTime value="" /> <value unit="%" xsi:type="PQ" value="7" /> < interpretationCode codeSystem="local" code="*" /> <referenceRange> <observationRange> <text>4-6</text> </ observationRange> </referenceRange> </observation> </ component> <component> <observation moodCode="EVN" classCode="OBS"> <templateId root="216.840.1.881389.03.15.22.4.2" /> <id nullFlavor="NA" /> <code codeSystem="local" code="OVAL" displayName= "OVALOCYTES" /> <statusCode code="completed" /> < effectiveTime value="" /> <value unit="" xsi:type="PQ" value="NOTED" /> <referenceRange> <observationRange> <text /> </observationRange> </referenceRange> </observation> </component> <component> <observation moodCode ="EVN" classCode="OBS"> <templateId root= "216.840.1.682899...4.2" /> <id nullFlavor="NA" /> < code codeSystem="local" code="RBC" displayName="RED BLOOD CELL" /> < statusCode code="completed" /> <effectiveTime value="" /> <value unit="m/cumm" xsi:type="PQ" value="3.77" /> < interpretationCode codeSystem="local" code="*" /> <referenceRange> <observationRange> <text>4.00-6.00</text> </ observationRange> </referenceRange> </observation> </ component> <component> <observation moodCode="EVN" classCode="OBS"> <templateId root="216.840.1.689137.03.15.224.2" /> <id nullFlavor="NA" /> <code codeSystem="local" code="RDW" displayName=" RED CELL DISTRIBUTION WIDTH" /> <statusCode code="completed" /> <effectiveTime value="" /> <value unit="%" xsi:type= "PQ" value="18.3" /> <interpretationCode codeSystem="local" code="*" / > <referenceRange> <observationRange> <text> 11.0-15.6</text> </observationRange> </referenceRange> </observation> </component> <component> <observation moodCode="EVN" classCode="OBS"> <templateId root= "216.840.1.573508.03.15.224.2" /> <id nullFlavor="NA" /> < code codeSystem="local" code="DIOGENES" displayName="SCHISTOCYTES" /> < statusCode code="completed" /> <effectiveTime value="" /> <value unit="" xsi:type="PQ" value="NOTED" /> <referenceRange > <observationRange> <text /> </ observationRange> </referenceRange> </observation> </ component> <component> <observation moodCode="EVN" classCode="OBS"> <templateId root="216.840.1.250779.03.15.22.4.2" /> <id nullFlavor="NA" /> <code codeSystem="local" code="WBC" displayName= "WHITE BLOOD CELL" /> <statusCode code="completed" /> < effectiveTime value="" /> <value unit="k/cumm" xsi:type="PQ " value="8.2" /> <referenceRange> <observationRange> <text>5.0-10.0</text> </observationRange> </ referenceRange> </observation> </component> <component> <observation moodCode="EVN" classCode="OBS"> <templateId root= "216.840.1.893391.10..4.2" /> <id nullFlavor="NA" /> < code codeSystem="local" code="HGBT" displayName="HEMOGLOBIN" /> < statusCode code="completed" /> <effectiveTime value="" /> <value unit="gm/dL" xsi:type="PQ" value="8.0" /> < interpretationCode codeSystem="local" code="*" /> <referenceRange> <observationRange> <text>12.0-16.0</text> </ observationRange> </referenceRange> </observation> </ component> <component> <observation moodCode="EVN" classCode="OBS"> <templateId root="07.12.840.1.896282.03.15.224.2" /> <id nullFlavor="NA" /> <code codeSystem="local" code="HCTT" displayName= "HEMATOCRIT" /> <statusCode code="completed" /> < effectiveTime value="" /> <value unit="%" xsi:type="PQ " value="27.6" /> <interpretationCode codeSystem="local" code="*" /> <referenceRange> <observationRange> <text>37.0- 47.0</text> </observationRange> </referenceRange> </ observation> </component> <component> <observation moodCode= "EVN" classCode="OBS"> <templateId root="16.840.1.100080...4.2 " /> <id nullFlavor="NA" /> <code codeSystem="local" code="PLT " displayName="PLATELET COUNT" /> <statusCode code="completed" /> <effectiveTime value="[id number]" /> <value unit="k/cumm" xsi: type="PQ" value="247" /> <referenceRange> <observationRange > <text>150-450</text> </observationRange> </ referenceRange> </observation> </component> </organizer> </entry > <entry> <organizer moodCode="EVN" classCode="BATTERY"> <templateId root="216.840.1.812379.10...4.1" /> <id nullFlavor="NA" /> <code codeSystem="local" code="PROLAC" displayName="PROLACTIN" /> <statusCode code="completed" /> <component> <observation moodCode="EVN" classCode="OBS"> <templateId root="216.840.1.969574.10...4.2" /> <id nullFlavor="NA" /> <code codeSystem="local" code="PROLAC" displayName="PROLACTIN" /> <statusCode code="completed" /> < effectiveTime value="[id number]" /> <value unit="ng/mL" xsi:type="PQ " value="87.6" /> <interpretationCode codeSystem="local" code="*" /> <referenceRange> <observationRange> <text>1.8- 29.2</text> </observationRange> </referenceRange> </ observation> </component> </organizer> </entry> <entry> <organizer moodCode="EVN" classCode="BATTERY"> <templateId root= "16.840.1.414421.10...4.1" /> <id nullFlavor="NA" /> <code codeSystem="local" code="iCHEM8" displayName="CHEM/HEM PROFILE-BEDSIDE" /> <statusCode code="completed" /> <component> <observation moodCode= "EVN" classCode="OBS"> <templateId root="216.840.1.953908.10..22.4.2 " /> <id nullFlavor="NA" /> <code codeSystem="local" code="K" displayName="POTASSIUM" /> <statusCode code="completed" /> < effectiveTime value="" /> <value unit="mmol/L" xsi:type="PQ " value="3.3" /> <interpretationCode codeSystem="local" code="*" /> <referenceRange> <observationRange> <text>3.5-5.3 </text> </observationRange> </referenceRange> </ observation> </component> <component> <observation moodCode= "EVN" classCode="OBS"> <templateId root="216.840.1.870691.03.15.22.4.2 " /> <id nullFlavor="NA" /> <code codeSystem="local" code= "CMETHOD" displayName="METHOD" /> <statusCode code="completed" /> <effectiveTime value="" /> <value unit="" xsi:type="PQ " value="Bedside" /> <referenceRange> <observationRange> <text /> </observationRange> </referenceRange> </observation> </component> <component> <observation moodCode="EVN" classCode="OBS"> <templateId root= "216.840.1.302023.22.4.2" /> <id nullFlavor="NA" /> < code codeSystem="local" code="GAP" displayName="ANION GAP" /> < statusCode code="completed" /> <effectiveTime value="" /> <value unit="mmol/L" xsi:type="PQ" value="17" /> < referenceRange> <observationRange> <text>10-20</text> </observationRange> </referenceRange> </observation> </component> <component> <observation moodCode="EVN" classCode= "OBS"> <templateId root="216.840.1.302489.03.15.22.4.2" /> < id nullFlavor="NA" /> <code codeSystem="local" code="HMETHOD" displayName="METHOD" /> <statusCode code="completed" /> < effectiveTime value="" /> <value unit="" xsi:type="PQ" value="Bedside" /> <referenceRange> <observationRange> <text /> </observationRange> </referenceRange> </observation> </component> <component> <observation moodCode="EVN" classCode="OBS"> <templateId root= "216.840.1.003754.03.15.22.4.2" /> <id nullFlavor="NA" /> < code codeSystem="local" code="GLU" displayName="GLUCOSE" /> < statusCode code="completed" /> <effectiveTime value="" /> <value unit="mg/dL" xsi:type="PQ" value="77" /> < referenceRange> <observationRange> <text>70-99</text> </observationRange> </referenceRange> </observation> </component> <component> <observation moodCode="EVN" classCode= "OBS"> <templateId root="07.12.840.1.072732.03.15.22.4.2" /> < id nullFlavor="NA" /> <code codeSystem="local" code="BUN" displayName= "BLOOD UREA NITROGEN" /> <statusCode code="completed" /> < effectiveTime value="" /> <value unit="mg/dL" xsi:type="PQ " value="7" /> <referenceRange> <observationRange> <text>7-20</text> </observationRange> </referenceRange > </observation> </component> <component> <observation moodCode="EVN" classCode="OBS"> <templateId root= "07.12.840.1.039301.10.20.22.4.2" /> <id nullFlavor="NA" /> < code codeSystem="local" code="CREAT" displayName="CREATININE" /> < statusCode code="completed" /> <effectiveTime value="" /> <value unit="mg/dL" xsi:type="PQ" value="0.7" /> < referenceRange> <observationRange> <text>0.6-1.0</text> </observationRange> </referenceRange> </observation > </component> <component> <observation moodCode="EVN" classCode="OBS"> <templateId root="07.12.840.1.676784...4.2" /> <id nullFlavor="NA" /> <code codeSystem="local" code="HGBT" displayName="HEMOGLOBIN" /> <statusCode code="completed" /> < effectiveTime value="" /> <value unit="gm/dL" xsi:type="PQ " value="9.2" /> <interpretationCode codeSystem="local" code="*" /> <referenceRange> <observationRange> <text>12.0- 16.0</text> </observationRange> </referenceRange> </ observation> </component> <component> <observation moodCode= "EVN" classCode="OBS"> <templateId root="07.12.840.1.096670.10..22.4.2 " /> <id nullFlavor="NA" /> <code codeSystem="local" code= "HCTT" displayName="HEMATOCRIT" /> <statusCode code="completed" /> <effectiveTime value="" /> <value unit="%" xsi: type="PQ" value="27.0" /> <interpretationCode codeSystem="local" code= "*" /> <referenceRange> <observationRange> < text>37.0-47.0</text> </observationRange> </referenceRange> </observation> </component> <component> <observation moodCode="EVN" classCode="OBS"> <templateId root= "216.840.1.710018.10..22.4.2" /> <id nullFlavor="NA" /> < code codeSystem="local" code="NA" displayName="SODIUM" /> <statusCode code="completed" /> <effectiveTime value="" /> < value unit="mmol/L" xsi:type="PQ" value="137" /> <referenceRange> <observationRange> <text>135-148</text> </ observationRange> </referenceRange> </observation> </ component> <component> <observation moodCode="EVN" classCode="OBS"> <templateId root="16.840.1.066999.10..22.4.2" /> <id nullFlavor="NA" /> <code codeSystem="local" code="CL" displayName= "CHLORIDE" /> <statusCode code="completed" /> <effectiveTime value="" /> <value unit="mmol/L" xsi:type="PQ" value="102" /> <referenceRange> <observationRange> <text>98 -110</text> </observationRange> </referenceRange> </ observation> </component> <component> <observation moodCode= "EVN" classCode="OBS"> <templateId root="07.12.840.1.275128.03.15.22.4.2 " /> <id nullFlavor="NA" /> <code codeSystem="local" code="CO2 " displayName="CARBON DIOXIDE" /> <statusCode code="completed" /> <effectiveTime value="" /> <value unit="mmol/L" xsi: type="PQ" value="23" /> <referenceRange> <observationRange> <text>21-32</text> </observationRange> </ referenceRange> </observation> </component> <component> <observation moodCode="EVN" classCode="OBS"> <templateId root= "840.1.897426.03.15.22.4.2" /> <id nullFlavor="NA" /> < code codeSystem="local" code="CAION" displayName="CALCIUM IONIZED" /> < statusCode code="completed" /> <effectiveTime value="" /> <value unit="mg/dL" xsi:type="PQ" value="4.5" /> < referenceRange> <observationRange> <text>4.5-5.3</text> </observationRange> </referenceRange> </observation > </component> </organizer> </entry> <entry> <organizer moodCode= "EVN" classCode="BATTERY"> <templateId root="840.1.887669.03.15.22.4.1 " /> <id nullFlavor="NA" /> <code codeSystem="local" code="PREGU" displayName="UR TEST" /> <statusCode code="completed" /> < component> <observation moodCode="EVN" classCode="OBS"> < templateId root="07.12.840.1.728104.03.15.22.4.2" /> <id nullFlavor="NA " /> <code codeSystem="local" code="PREGU" displayName="UR TEST" /> <statusCode code="completed" /> <effectiveTime value= "" /> <value unit="" xsi:type="PQ" value="NEGATIVE" /> <referenceRange> <observationRange> <text>NEGATIVE </text> </observationRange> </referenceRange> </ observation> </component> </organizer> </entry> <entry> <organizer moodCode="EVN" classCode="BATTERY"> <templateId root= "2.16.840.1.066383.10..22.4.1" /> <id nullFlavor="NA" /> <code codeSystem="local" code="DRUGAB" displayName="UR DRUGS OF ABUSE SCREEN" /> <statusCode code="completed" /> <component> <observation moodCode= "EVN" classCode="OBS"> <templateId root="2.16.840.1.262581.10...4.2 " /> <id nullFlavor="NA" /> <code codeSystem="local" code= "AMPHU" displayName="UR AMPHETAMINES SCREEN" /> <statusCode code= "completed" /> <effectiveTime value="" /> <value unit="" xsi:type="PQ" value="NEG (<1000 ng/mL)" /> <referenceRange > <observationRange> <text>NEGATIVE</text> </ observationRange> </referenceRange> </observation> </ component> <component> <observation moodCode="EVN" classCode="OBS"> <templateId root="2.16.840.1.923130.10...4.2" /> <id nullFlavor="NA" /> <code codeSystem="local" code="BARBU" displayName= "UR BARBITURATE SCREEN" /> <statusCode code="completed" /> < effectiveTime value="" /> <value unit="" xsi:type="PQ" value="NEG (< 200 ng/mL)" /> <referenceRange> < observationRange> <text>NEGATIVE</text> </ observationRange> </referenceRange> </observation> </ component> <component> <observation moodCode="EVN" classCode="OBS"> <templateId root="216.840.1.724419.10...4.2" /> <id nullFlavor="NA" /> <code codeSystem="local" code="DAUCOMMENT" displayName="DRUGS OF ABUSE SCREEN COMMENT" /> <statusCode code= "completed" /> <effectiveTime value="" /> <value unit="" xsi:type="PQ" value="" /> <referenceRange> < observationRange> <text /> </observationRange> </referenceRange> </observation> </component> <component> <observation moodCode="EVN" classCode="OBS"> <templateId root= "216.840.1.509152.10..4.2" /> <id nullFlavor="NA" /> < code codeSystem="local" code="OPIU" displayName="UR OPIATES SCREEN" /> <statusCode code="completed" /> <effectiveTime value="" /> <value unit="" xsi:type="PQ" value="POS (> 300 ng/mL)" /> <interpretationCode codeSystem="local" code="*" /> <referenceRange> <observationRange> <text>NEGATIVE</text> </ observationRange> </referenceRange> </observation> </ component> <component> <observation moodCode="EVN" classCode="OBS"> <templateId root="216.840.1.372376.10...4.2" /> <id nullFlavor="NA" /> <code codeSystem="local" code="PCPU" displayName=" UR PHENCYCLIDINE (PCP) SCREEN" /> <statusCode code="completed" /> <effectiveTime value="" /> <value unit="" xsi:type="PQ " value="NEG (< 25 ng/mL)" /> <referenceRange> < observationRange> <text>NEGATIVE</text> </ observationRange> </referenceRange> </observation> </ component> <component> <observation moodCode="EVN" classCode="OBS"> <templateId root="2.16.840.1.430162.10..22.4.2" /> <id nullFlavor="NA" /> <code codeSystem="local" code="THCU" displayName=" UR CANNABINOIDS (THC) SCREEN" /> <statusCode code="completed" /> <effectiveTime value="" /> <value unit="" xsi:type="PQ " value="NEG (< 50 ng/mL)" /> <referenceRange> < observationRange> <text>NEGATIVE</text> </ observationRange> </referenceRange> </observation> </ component> <component> <observation moodCode="EVN" classCode="OBS"> <templateId root="2.16.840.1.574519.10..22.4.2" /> <id nullFlavor="NA" /> <code codeSystem="local" code="COCAU" displayName= "UR COCAINE METABOLITE SCREEN" /> <statusCode code="completed" /> <effectiveTime value="" /> <value unit="" xsi:type="PQ " value="NEG (< 300 ng/mL)" /> <referenceRange> < observationRange> <text>NEGATIVE</text> </ observationRange> </referenceRange> </observation> </ component> <component> <observation moodCode="EVN" classCode="OBS"> <templateId root="216.840.1.086334.10..22.4.2" /> <id nullFlavor="NA" /> <code codeSystem="local" code="METHU" displayName= "UR METHADONE SCREEN" /> <statusCode code="completed" /> < effectiveTime value="" /> <value unit="" xsi:type="PQ" value="NEG (< 300 ng/mL)" /> <referenceRange> < observationRange> <text>NEGATIVE</text> </ observationRange> </referenceRange> </observation> </ component> <component> <observation moodCode="EVN" classCode="OBS"> <templateId root="216.840.1.122713.10...4.2" /> <id nullFlavor="NA" /> <code codeSystem="local" code="BENZU" displayName= "UR BENZODIAZEPINE SCREEN" /> <statusCode code="completed" /> <effectiveTime value="" /> <value unit="" xsi:type="PQ" value="POS (> 200 ng/mL)" /> <interpretationCode codeSystem="local " code="*" /> <referenceRange> <observationRange> <text>NEGATIVE</text> </observationRange> </ referenceRange> </observation> </component> </organizer> </entry > <entry> <organizer moodCode="EVN" classCode="BATTERY"> <templateId root="2.16.840.1.249656.10..22.4.1" /> <id nullFlavor="NA" /> <code codeSystem="local" code="PREGU" displayName="UR TEST" /> < statusCode code="completed" /> <component> <observation moodCode= "EVN" classCode="OBS"> <templateId root="16.840.1.487823...4.2 " /> <id nullFlavor="NA" /> <code codeSystem="local" code= "PREGU" displayName="UR TEST" /> <statusCode code="completed " /> <effectiveTime value="" /> <value unit="" xsi :type="PQ" value="NEGATIVE" /> <referenceRange> < observationRange> <text>NEGATIVE</text> </ observationRange> </referenceRange> </observation> </ component> </organizer> </entry> <entry> <organizer moodCode="EVN" classCode="BATTERY"> <templateId root="07.12.840.1.685626.03.15.22.4.1" /> <id nullFlavor="NA" /> <code codeSystem="local" code="UAMICRO" displayName="UA MICROSCOPIC" /> <statusCode code="completed" /> < component> <observation moodCode="EVN" classCode="OBS"> < templateId root="07.12.840.1.314635...4.2" /> <id nullFlavor="NA " /> <code codeSystem="local" code="BACU" displayName="UA BACTERIA" /> <statusCode code="completed" /> <effectiveTime value= "" /> <value unit="" xsi:type="PQ" value="2+" /> < interpretationCode codeSystem="local" code="*" /> <referenceRange> <observationRange> <text>NEGATIVE</text> </ observationRange> </referenceRange> </observation> </ component> <component> <observation moodCode="EVN" classCode="OBS"> <templateId root="07.12.840.1.108443.03.15.22.4.2" /> <id nullFlavor="NA" /> <code codeSystem="local" code="EPIU" displayName=" UA EPITHELIAL CELLS" /> <statusCode code="completed" /> < effectiveTime value="" /> <value unit="epi/hpf" xsi:type= "PQ" value="1+" /> <referenceRange> <observationRange> <text>0 - 1+</text> </observationRange> </ referenceRange> </observation> </component> <component> <observation moodCode="EVN" classCode="OBS"> <templateId root= "2.16.840.1.507673.10...4.2" /> <id nullFlavor="NA" /> < code codeSystem="local" code="RBCU" displayName="UA RBC" /> < statusCode code="completed" /> <effectiveTime value="" /> <value unit="rbc/hpf" xsi:type="PQ" value="20-50" /> < interpretationCode codeSystem="local" code="*" /> <referenceRange> <observationRange> <text>0 - 3</text> </ observationRange> </referenceRange> </observation> </ component> <component> <observation moodCode="EVN" classCode="OBS"> <templateId root="2.16.840.1.512387...4.2" /> <id nullFlavor="NA" /> <code codeSystem="local" code="UAVOL" displayName= "UA VOLUME FOR EXAM" /> <statusCode code="completed" /> < effectiveTime value="" /> <value unit="mL" xsi:type="PQ" value="12.0" /> <referenceRange> <observationRange> <text>(12mL STD)</text> </observationRange> </ referenceRange> </observation> </component> <component> <observation moodCode="EVN" classCode="OBS"> <templateId root= "16.840.1.405098.10..22.4.2" /> <id nullFlavor="NA" /> < code codeSystem="local" code="WBCU" displayName="UA WBC" /> < statusCode code="completed" /> <effectiveTime value="643006374927" /> <value unit="wbc/hpf" xsi:type="PQ" value="2-5" /> < referenceRange> <observationRange> <text>0 - 5</text> </observationRange> </referenceRange> </observation> </component> </organizer> </entry> <entry> <organizer moodCode="EVN " classCode="BATTERY"> <templateId root="16.840.1.013263.10..22.4.1" / > <id nullFlavor="NA" /> <code codeSystem="local" code="CBCD" displayName="CBC W/DIFF" /> <statusCode code="completed" /> <component > <observation moodCode="EVN" classCode="OBS"> <templateId root= "16.840.1.529429.10..22.4.2" /> <id nullFlavor="NA" /> < code codeSystem="local" code="BA#" displayName="BASOPHIL #" /> < statusCode code="completed" /> <effectiveTime value="182757212722" /> <value unit="k/cumm" xsi:type="PQ" value="0.1" /> < referenceRange> <observationRange> <text>0.0-0.2</text> </observationRange> </referenceRange> </observation > </component> <component> <observation moodCode="EVN" classCode="OBS"> <templateId root="2.16.840.1.234045.10.22.4.2" /> <id nullFlavor="NA" /> <code codeSystem="local" code="BA% " displayName="BASOPHIL %" /> <statusCode code="completed" /> <effectiveTime value="" /> <value unit="%" xsi: type="PQ" value="1" /> <referenceRange> <observationRange> <text>0-1</text> </observationRange> </ referenceRange> </observation> </component> <component> <observation moodCode="EVN" classCode="OBS"> <templateId root= "16.840.1.213366.10..4.2" /> <id nullFlavor="NA" /> < code codeSystem="local" code="EO#" displayName="EOSINOPHIL #" /> < statusCode code="completed" /> <effectiveTime value="" /> <value unit="k/cumm" xsi:type="PQ" value="0.1" /> < referenceRange> <observationRange> <text>0.1-0.5</text> </observationRange> </referenceRange> </observation > </component> <component> <observation moodCode="EVN" classCode="OBS"> <templateId root="07.12.840.1.170434.10..4.2" /> <id nullFlavor="NA" /> <code codeSystem="local" code="EO% " displayName="EOSINOPHIL %" /> <statusCode code="completed" /> <effectiveTime value="" /> <value unit="%" xsi: type="PQ" value="2" /> <referenceRange> <observationRange> <text>2-4</text> </observationRange> </ referenceRange> </observation> </component> <component> <observation moodCode="EVN" classCode="OBS"> <templateId root= "16.840.1.321956.10..4.2" /> <id nullFlavor="NA" /> < code codeSystem="local" code="GR#" displayName="GRANULOCYTE #" /> < statusCode code="completed" /> <effectiveTime value="822210967772" /> <value unit="k/cumm" xsi:type="PQ" value="2.3" /> < referenceRange> <observationRange> <text>2.0-9.0</text> </observationRange> </referenceRange> </observation > </component> <component> <observation moodCode="EVN" classCode="OBS"> <templateId root="07.12.840.1.190439.03.15.224.2" /> <id nullFlavor="NA" /> <code codeSystem="local" code="GR% " displayName="GRANULOCYTE %" /> <statusCode code="completed" /> <effectiveTime value="281016262217" /> <value unit="%" xsi: type="PQ" value="46" /> <interpretationCode codeSystem="local" code="* " /> <referenceRange> <observationRange> <text> 50-75</text> </observationRange> </referenceRange> </ observation> </component> <component> <observation moodCode= "EVN" classCode="OBS"> <templateId root="07.12.840.1.669374.03.15.22.4.2 " /> <id nullFlavor="NA" /> <code codeSystem="local" code="LY# " displayName="LYMPHOCYTE #" /> <statusCode code="completed" /> <effectiveTime value="717989625410" /> <value unit="k/cumm" xsi:type ="PQ" value="2.3" /> <referenceRange> <observationRange> <text>1.0-4.0</text> </observationRange> </ referenceRange> </observation> </component> <component> <observation moodCode="EVN" classCode="OBS"> <templateId root= "16.840.1.141387.10.4.2" /> <id nullFlavor="NA" /> < code codeSystem="local" code="LY%" displayName="LYMPHOCYTE %" /> <statusCode code="completed" /> <effectiveTime value="000411506205" /> <value unit="%" xsi:type="PQ" value="46" /> < interpretationCode codeSystem="local" code="*" /> <referenceRange> <observationRange> <text>20-30</text> </ observationRange> </referenceRange> </observation> </ component> <component> <observation moodCode="EVN" classCode="OBS"> <templateId root="16.840.1.666673.10...4.2" /> <id nullFlavor="NA" /> <code codeSystem="local" code="MCH" displayName= "MEAN CELL HGB" /> <statusCode code="completed" /> < effectiveTime value="523833180612" /> <value unit="pg" xsi:type="PQ" value="19.7" /> <interpretationCode codeSystem="local" code="*" /> <referenceRange> <observationRange> <text>27.0- 33.0</text> </observationRange> </referenceRange> </ observation> </component> <component> <observation moodCode= "EVN" classCode="OBS"> <templateId root="07.12.840.1.938792.10.22.4.2 " /> <id nullFlavor="NA" /> <code codeSystem="local" code= "MCHC" displayName="MEAN CELL HGB CONCENTRATION" /> <statusCode code= "completed" /> <effectiveTime value="" /> <value unit="g/dL" xsi:type="PQ" value="28.0" /> <interpretationCode codeSystem="local" code="*" /> <referenceRange> < observationRange> <text>32.0-37.0</text> </ observationRange> </referenceRange> </observation> </ component> <component> <observation moodCode="EVN" classCode="OBS"> <templateId root="840.1.654369.03.15.22.4.2" /> <id nullFlavor="NA" /> <code codeSystem="local" code="MCV" displayName= "MEAN CELL VOLUME" /> <statusCode code="completed" /> < effectiveTime value="" /> <value unit="fl" xsi:type="PQ" value="70.5" /> <interpretationCode codeSystem="local" code="*" /> <referenceRange> <observationRange> <text>80.0- 100.0</text> </observationRange> </referenceRange> </ observation> </component> <component> <observation moodCode= "EVN" classCode="OBS"> <templateId root="840.1.463774.22.4.2 " /> <id nullFlavor="NA" /> <code codeSystem="local" code="MO# " displayName="MONOCYTE #" /> <statusCode code="completed" /> <effectiveTime value="" /> <value unit="k/cumm" xsi:type= "PQ" value="0.3" /> <referenceRange> <observationRange> <text>0.1-1.0</text> </observationRange> </ referenceRange> </observation> </component> <component> <observation moodCode="EVN" classCode="OBS"> <templateId root= "216.840.1.877585...4.2" /> <id nullFlavor="NA" /> < code codeSystem="local" code="MO%" displayName="MONOCYTE %" /> <statusCode code="completed" /> <effectiveTime value="797074196260" /> <value unit="%" xsi:type="PQ" value="5" /> < referenceRange> <observationRange> <text>4-6</text> </observationRange> </referenceRange> </observation> </component> <component> <observation moodCode="EVN" classCode= "OBS"> <templateId root="16.840.1.258815.03.15.22.4.2" /> < id nullFlavor="NA" /> <code codeSystem="local" code="OVAL" displayName= "OVALOCYTES" /> <statusCode code="completed" /> < effectiveTime value="357599565198" /> <value unit="" xsi:type="PQ" value="NOTED" /> <referenceRange> <observationRange> <text /> </observationRange> </referenceRange> </observation> </component> <component> <observation moodCode ="EVN" classCode="OBS"> <templateId root= "16.840.1.727184...4.2" /> <id nullFlavor="NA" /> < code codeSystem="local" code="RBC" displayName="RED BLOOD CELL" /> < statusCode code="completed" /> <effectiveTime value="344113396362" /> <value unit="m/cumm" xsi:type="PQ" value="4.31" /> < referenceRange> <observationRange> <text>4.00-6.00</text > </observationRange> </referenceRange> </observation > </component> <component> <observation moodCode="EVN" classCode="OBS"> <templateId root="07.12.840.1.464875.10.20.22.4.2" /> <id nullFlavor="NA" /> <code codeSystem="local" code="RDW" displayName="RED CELL DISTRIBUTION WIDTH" /> <statusCode code= "completed" /> <effectiveTime value="489267480599" /> <value unit="%" xsi:type="PQ" value="17.6" /> <interpretationCode codeSystem="local" code="*" /> <referenceRange> < observationRange> <text>11.0-15.6</text> </ observationRange> </referenceRange> </observation> </ component> <component> <observation moodCode="EVN" classCode="OBS"> <templateId root="07.12.840.1.895871.10.20.22.4.2" /> <id nullFlavor="NA" /> <code codeSystem="local" code="DIOGENES" displayName= "SCHISTOCYTES" /> <statusCode code="completed" /> < effectiveTime value="087190370121" /> <value unit="" xsi:type="PQ" value="NOTED" /> <referenceRange> <observationRange> <text /> </observationRange> </referenceRange> </observation> </component> <component> <observation moodCode ="EVN" classCode="OBS"> <templateId root= "840.1.441163.10.20.22.4.2" /> <id nullFlavor="NA" /> < code codeSystem="local" code="WBC" displayName="WHITE BLOOD CELL" /> < statusCode code="completed" /> <effectiveTime value="233494414696" /> <value unit="k/cumm" xsi:type="PQ" value="5.0" /> < referenceRange> <observationRange> <text>5.0-10.0</text > </observationRange> </referenceRange> </observation > </component> <component> <observation moodCode="EVN" classCode="OBS"> <templateId root="840.1.212574.1022.4.2" /> <id nullFlavor="NA" /> <code codeSystem="local" code="HGBT" displayName="HEMOGLOBIN" /> <statusCode code="completed" /> < effectiveTime value="635051610733" /> <value unit="gm/dL" xsi:type="PQ " value="8.5" /> <interpretationCode codeSystem="local" code="*" /> <referenceRange> <observationRange> <text>12.0- 16.0</text> </observationRange> </referenceRange> </ observation> </component> <component> <observation moodCode= "EVN" classCode="OBS"> <templateId root="07.12.840.1.910116.10.2022.4.2 " /> <id nullFlavor="NA" /> <code codeSystem="local" code= "HCTT" displayName="HEMATOCRIT" /> <statusCode code="completed" /> <effectiveTime value="733789098349" /> <value unit="%" xsi: type="PQ" value="30.4" /> <interpretationCode codeSystem="local" code= "*" /> <referenceRange> <observationRange> < text>37.0-47.0</text> </observationRange> </referenceRange> </observation> </component> <component> <observation moodCode="EVN" classCode="OBS"> <templateId root= "07.12.840.1.348264.10.20.22.4.2" /> <id nullFlavor="NA" /> < code codeSystem="local" code="PLT" displayName="PLATELET COUNT" /> < statusCode code="completed" /> <effectiveTime value="057780730758" /> <value unit="k/cumm" xsi:type="PQ" value="348" /> < referenceRange> <observationRange> <text>150-400</text> </observationRange> </referenceRange> </observation > </component> </organizer> </entry> <entry> <organizer moodCode= "EVN" classCode="BATTERY"> <templateId root="07.12.840.1.778031.10..22.4.1 " /> <id nullFlavor="NA" /> <code codeSystem="local" code="iCHEM8" displayName="CHEM/HEM PROFILE-BEDSIDE" /> <statusCode code="completed" /> <component> <observation moodCode="EVN" classCode="OBS"> < templateId root="07.12.840.1.660943.10.20.22.4.2" /> <id nullFlavor="NA " /> <code codeSystem="local" code="K" displayName="POTASSIUM" /> <statusCode code="completed" /> <effectiveTime value="794287521851 " /> <value unit="mmol/L" xsi:type="PQ" value="4.0" /> < referenceRange> <observationRange> <text>3.5-5.3</text> </observationRange> </referenceRange> </observation > </component> <component> <observation moodCode="EVN" classCode="OBS"> <templateId root="216.840.1.775020.03.15.22.4.2" /> <id nullFlavor="NA" /> <code codeSystem="local" code="CMETHOD " displayName="METHOD" /> <statusCode code="completed" /> < effectiveTime value="" /> <value unit="" xsi:type="PQ" value="Bedside" /> <referenceRange> <observationRange> <text /> </observationRange> </referenceRange> </observation> </component> <component> <observation moodCode="EVN" classCode="OBS"> <templateId root= "216.840.1.637502.03.15.22.4.2" /> <id nullFlavor="NA" /> < code codeSystem="local" code="GAP" displayName="ANION GAP" /> < statusCode code="completed" /> <effectiveTime value="" /> <value unit="mmol/L" xsi:type="PQ" value="13" /> < referenceRange> <observationRange> <text>10-20</text> </observationRange> </referenceRange> </observation> </component> <component> <observation moodCode="EVN" classCode= "OBS"> <templateId root="16.840.1.238109.03.15.22.4.2" /> < id nullFlavor="NA" /> <code codeSystem="local" code="HMETHOD" displayName="METHOD" /> <statusCode code="completed" /> < effectiveTime value="" /> <value unit="" xsi:type="PQ" value="Bedside" /> <referenceRange> <observationRange> <text /> </observationRange> </referenceRange> </observation> </component> <component> <observation moodCode="EVN" classCode="OBS"> <templateId root= "216.840.1.034055.10..22.4.2" /> <id nullFlavor="NA" /> < code codeSystem="local" code="GLU" displayName="GLUCOSE" /> < statusCode code="completed" /> <effectiveTime value="" /> <value unit="mg/dL" xsi:type="PQ" value="79" /> < referenceRange> <observationRange> <text>70-99</text> </observationRange> </referenceRange> </observation> </component> <component> <observation moodCode="EVN" classCode= "OBS"> <templateId root="16.840.1.106384.03.15.22.4.2" /> < id nullFlavor="NA" /> <code codeSystem="local" code="BUN" displayName= "BLOOD UREA NITROGEN" /> <statusCode code="completed" /> < effectiveTime value="" /> <value unit="mg/dL" xsi:type="PQ " value="7" /> <referenceRange> <observationRange> <text>7-20</text> </observationRange> </referenceRange > </observation> </component> <component> <observation moodCode="EVN" classCode="OBS"> <templateId root= "16.840.1.338558..22.4.2" /> <id nullFlavor="NA" /> < code codeSystem="local" code="CREAT" displayName="CREATININE" /> < statusCode code="completed" /> <effectiveTime value="" /> <value unit="mg/dL" xsi:type="PQ" value="0.7" /> < referenceRange> <observationRange> <text>0.6-1.0</text> </observationRange> </referenceRange> </observation > </component> <component> <observation moodCode="EVN" classCode="OBS"> <templateId root="216.840.1.868904..22.4.2" /> <id nullFlavor="NA" /> <code codeSystem="local" code="HGBT" displayName="HEMOGLOBIN" /> <statusCode code="completed" /> < effectiveTime value="060659700436" /> <value unit="gm/dL" xsi:type="PQ " value="10.2" /> <interpretationCode codeSystem="local" code="*" /> <referenceRange> <observationRange> <text>12.0- 16.0</text> </observationRange> </referenceRange> </ observation> </component> <component> <observation moodCode= "EVN" classCode="OBS"> <templateId root="07.12.840.1.873023.03.15.22.4.2 " /> <id nullFlavor="NA" /> <code codeSystem="local" code= "HCTT" displayName="HEMATOCRIT" /> <statusCode code="completed" /> <effectiveTime value="705738635651" /> <value unit="%" xsi: type="PQ" value="30.0" /> <interpretationCode codeSystem="local" code= "*" /> <referenceRange> <observationRange> < text>37.0-47.0</text> </observationRange> </referenceRange> </observation> </component> <component> <observation moodCode="EVN" classCode="OBS"> <templateId root= "216.840.1.593000.10.2022.4.2" /> <id nullFlavor="NA" /> < code codeSystem="local" code="NA" displayName="SODIUM" /> <statusCode code="completed" /> <effectiveTime value="231966189904" /> < value unit="mmol/L" xsi:type="PQ" value="142" /> <referenceRange> <observationRange> <text>135-148</text> </ observationRange> </referenceRange> </observation> </ component> <component> <observation moodCode="EVN" classCode="OBS"> <templateId root="216.840.1.635415.10...4.2" /> <id nullFlavor="NA" /> <code codeSystem="local" code="CL" displayName= "CHLORIDE" /> <statusCode code="completed" /> <effectiveTime value="" /> <value unit="mmol/L" xsi:type="PQ" value="107" /> <referenceRange> <observationRange> <text>98 -110</text> </observationRange> </referenceRange> </ observation> </component> <component> <observation moodCode= "EVN" classCode="OBS"> <templateId root="216.840.1.506080.10..22.4.2 " /> <id nullFlavor="NA" /> <code codeSystem="local" code="CO2 " displayName="CARBON DIOXIDE" /> <statusCode code="completed" /> <effectiveTime value="" /> <value unit="mmol/L" xsi: type="PQ" value="26" /> <referenceRange> <observationRange> <text>21-32</text> </observationRange> </ referenceRange> </observation> </component> <component> <observation moodCode="EVN" classCode="OBS"> <templateId root= "07.12.840.1.992972.10..4.2" /> <id nullFlavor="NA" /> < code codeSystem="local" code="CAION" displayName="CALCIUM IONIZED" /> < statusCode code="completed" /> <effectiveTime value="552255575983" /> <value unit="mg/dL" xsi:type="PQ" value="4.9" /> < referenceRange> <observationRange> <text>4.5-5.3</text> </observationRange> </referenceRange> </observation > </component> </organizer> </entry> <entry> <organizer moodCode= "EVN" classCode="BATTERY"> <templateId root="07.12.840.1.122515.10...4.1 " /> <id nullFlavor="NA" /> <code codeSystem="local" code="PREGU" displayName="UR TEST" /> <statusCode code="completed" /> < component> <observation moodCode="EVN" classCode="OBS"> < templateId root="07.12.840.1.030433.10..22.4.2" /> <id nullFlavor="NA " /> <code codeSystem="local" code="PREGU" displayName="UR TEST" /> <statusCode code="completed" /> <effectiveTime value= "740161351572" /> <value unit="" xsi:type="PQ" value="NEGATIVE" /> <referenceRange> <observationRange> <text>NEGATIVE </text> </observationRange> </referenceRange> </ observation> </component> </organizer> </entry> <entry> <organizer moodCode="EVN" classCode="BATTERY"> <templateId root= "07.12.840.1.199283.22.4.1" /> <id nullFlavor="NA" /> <code codeSystem="local" code="UA" displayName="URINALYSIS, ROUTINE" /> < statusCode code="completed" /> <component> <observation moodCode= "EVN" classCode="OBS"> <templateId root="16.840.1.893276.10.4.2 " /> <id nullFlavor="NA" /> <code codeSystem="local" code= "LEUESU" displayName="UA LEUKOCYTE ESTERASE DIPSTICK" /> <statusCode code="completed" /> <effectiveTime value="471183784886" /> < value unit="" xsi:type="PQ" value="TRACE" /> <interpretationCode codeSystem="local" code="*" /> <referenceRange> < observationRange> <text>NEGATIVE</text> </ observationRange> </referenceRange> </observation> </ component> <component> <observation moodCode="EVN" classCode="OBS"> <templateId root="840.1.757723.03.15.224.2" /> <id nullFlavor="NA" /> <code codeSystem="local" code="NITRIU" displayName= "UA NITRITE DIPSTICK" /> <statusCode code="completed" /> < effectiveTime value="076024589935" /> <value unit="" xsi:type="PQ" value="NEGATIVE" /> <referenceRange> <observationRange> <text>NEGATIVE</text> </observationRange> </ referenceRange> </observation> </component> <component> <observation moodCode="EVN" classCode="OBS"> <templateId root= "07.12.840.1.062443.03.15.22.4.2" /> <id nullFlavor="NA" /> < code codeSystem="local" code="PROTEIU" displayName="UA PROTEIN DIPSTICK" /> <statusCode code="completed" /> <effectiveTime value= "387172385904" /> <value unit="" xsi:type="PQ" value="TRACE" /> <interpretationCode codeSystem="local" code="*" /> <referenceRange> <observationRange> <text>NEGATIVE</text> </ observationRange> </referenceRange> </observation> </ component> <component> <observation moodCode="EVN" classCode="OBS"> <templateId root="07.12.840.1.280634.10...4.2" /> <id nullFlavor="NA" /> <code codeSystem="local" code="DGLUU" displayName= "UA GLUCOSE DIPSTICK" /> <statusCode code="completed" /> < effectiveTime value="490660690563" /> <value unit="" xsi:type="PQ" value="NEGATIVE" /> <referenceRange> <observationRange> <text>NEGATIVE</text> </observationRange> </ referenceRange> </observation> </component> <component> <observation moodCode="EVN" classCode="OBS"> <templateId root= "16.840.1.916427...22.4.2" /> <id nullFlavor="NA" /> < code codeSystem="local" code="KETONU" displayName="UA KETONE DIPSTICK" /> <statusCode code="completed" /> <effectiveTime value="777907580003 " /> <value unit="" xsi:type="PQ" value="NEGATIVE" /> < referenceRange> <observationRange> <text>NEGATIVE</text > </observationRange> </referenceRange> </observation > </component> <component> <observation moodCode="EVN" classCode="OBS"> <templateId root="07.12.840.1.598843.03.15.22.4.2" /> <id nullFlavor="NA" /> <code codeSystem="local" code="UROBILU " displayName="UA UROBILINOGEN DIPSTICK" /> <statusCode code="completed " /> <effectiveTime value="606269915748" /> <value unit="" xsi :type="PQ" value="NORMAL" /> <referenceRange> < observationRange> <text>NORMAL</text> </observationRange > </referenceRange> </observation> </component> < component> <observation moodCode="EVN" classCode="OBS"> < templateId root="216.840.1.243524.03.15.22.4.2" /> <id nullFlavor="NA " /> <code codeSystem="local" code="BILU" displayName="UA BILIRUBIN DIPSTICK" /> <statusCode code="completed" /> <effectiveTime value="384436733017" /> <value unit="" xsi:type="PQ" value="POSITIVE" / > <interpretationCode codeSystem="local" code="*" /> < referenceRange> <observationRange> <text>NEGATIVE</text > </observationRange> </referenceRange> </observation > </component> <component> <observation moodCode="EVN" classCode="OBS"> <templateId root="216.840.1.632341.10..4.2" /> <id nullFlavor="NA" /> <code codeSystem="local" code="LON" displayName="UA BLOOD DIPSTICK" /> <statusCode code="completed" /> <effectiveTime value="133496225237" /> <value unit="" xsi:type= "PQ" value="2+" /> <interpretationCode codeSystem="local" code="*" /> <referenceRange> <observationRange> <text> NEGATIVE</text> </observationRange> </referenceRange> </observation> </component> <component> <observation moodCode ="EVN" classCode="OBS"> <templateId root= "2.16.840.1.524502.10.4.2" /> <id nullFlavor="NA" /> < code codeSystem="local" code="SPGRU" displayName="UA SPECIFIC GRAVITY" /> <statusCode code="completed" /> <effectiveTime value="592406545016 " /> <value unit="" xsi:type="PQ" value="1.020" /> < referenceRange> <observationRange> <text>1.015-1.025</ text> </observationRange> </referenceRange> </ observation> </component> <component> <observation moodCode= "EVN" classCode="OBS"> <templateId root="216.840.1.251622.03.15.22.4.2 " /> <id nullFlavor="NA" /> <code codeSystem="local" code="WILLOW " displayName="UR PH" /> <statusCode code="completed" /> < effectiveTime value="343754218215" /> <value unit="" xsi:type="PQ" value="7.0" /> <referenceRange> <observationRange> <text>5.0-7.0</text> </observationRange> </ referenceRange> </observation> </component> </organizer> </entry > <entry> <organizer moodCode="EVN" classCode="BATTERY"> <templateId root="2.16.840.1.400527.10..4.1" /> <id nullFlavor="NA" /> <code codeSystem="local" code="UAMICRO" displayName="UA MICROSCOPIC" /> < statusCode code="completed" /> <component> <observation moodCode= "EVN" classCode="OBS"> <templateId root="16.840.1.477840.10..22.4.2 " /> <id nullFlavor="NA" /> <code codeSystem="local" code= "BACU" displayName="UA BACTERIA" /> <statusCode code="completed" /> <effectiveTime value="579200283733" /> <value unit="" xsi:type= "PQ" value="1+" /> <interpretationCode codeSystem="local" code="*" /> <referenceRange> <observationRange> <text> NEGATIVE</text> </observationRange> </referenceRange> </observation> </component> <component> <observation moodCode ="EVN" classCode="OBS"> <templateId root= "07.12.840.1.054909...4.2" /> <id nullFlavor="NA" /> < code codeSystem="local" code="EPIU" displayName="UA EPITHELIAL CELLS" /> <statusCode code="completed" /> <effectiveTime value="522336029064" /> <value unit="epi/hpf" xsi:type="PQ" value="4+" /> < interpretationCode codeSystem="local" code="*" /> <referenceRange> <observationRange> <text>0 - 1+</text> </ observationRange> </referenceRange> </observation> </ component> <component> <observation moodCode="EVN" classCode="OBS"> <templateId root="07.12.840.1.009448.10..4.2" /> <id nullFlavor="NA" /> <code codeSystem="local" code="RBCU" displayName=" UA RBC" /> <statusCode code="completed" /> <effectiveTime value="629856191742" /> <value unit="rbc/hpf" xsi:type="PQ" value="> 100" /> <interpretationCode codeSystem="local" code="*" /> < referenceRange> <observationRange> <text>0 - 3</text> </observationRange> </referenceRange> </observation> </component> <component> <observation moodCode="EVN" classCode= "OBS"> <templateId root="216.840.1.382726.10..22.4.2" /> < id nullFlavor="NA" /> <code codeSystem="local" code="UAVOL" displayName ="UA VOLUME FOR EXAM" /> <statusCode code="completed" /> < effectiveTime value="738526344881" /> <value unit="mL" xsi:type="PQ" value="12.0" /> <referenceRange> <observationRange> <text>(12mL STD)</text> </observationRange> </ referenceRange> </observation> </component> <component> <observation moodCode="EVN" classCode="OBS"> <templateId root= "216.840.1.905491.10...4.2" /> <id nullFlavor="NA" /> < code codeSystem="local" code="WBCU" displayName="UA WBC" /> < statusCode code="completed" /> <effectiveTime value="518531080456" /> <value unit="wbc/hpf" xsi:type="PQ" value="2-5" /> < referenceRange> <observationRange> <text>0 - 5</text> </observationRange> </referenceRange> </observation> </component> </organizer> </entry> <entry> <organizer moodCode="EVN " classCode="BATTERY"> <templateId root="2.16.840.1.312810.10..22.4.1" / > <id nullFlavor="NA" /> <code codeSystem="local" code="CBCD" displayName="CBC W/DIFF" /> <statusCode code="completed" /> <component > <observation moodCode="EVN" classCode="OBS"> <templateId root= "16.840.1.091063.10..4.2" /> <id nullFlavor="NA" /> < code codeSystem="local" code="CBCCOM" displayName="COMMENT" /> < statusCode code="completed" /> <effectiveTime value="" /> <value unit="" xsi:type="PQ" value="REVIEWED" /> < referenceRange> <observationRange> <text /> < /observationRange> </referenceRange> </observation> </ component> <component> <observation moodCode="EVN" classCode="OBS"> <templateId root="840.1.193028.03.15.224.2" /> <id nullFlavor="NA" /> <code codeSystem="local" code="EO#" displayName= "EOSINOPHIL #" /> <statusCode code="completed" /> < effectiveTime value="" /> <value unit="k/cumm" xsi:type="PQ " value="0.1" /> <referenceRange> <observationRange> <text>0.1-0.5</text> </observationRange> </ referenceRange> </observation> </component> <component> <observation moodCode="EVN" classCode="OBS"> <templateId root= "840.1.651074.03.15.22.4.2" /> <id nullFlavor="NA" /> < code codeSystem="local" code="EO%" displayName="EOSINOPHIL %" /> <statusCode code="completed" /> <effectiveTime value="" /> <value unit="%" xsi:type="PQ" value="2" /> < referenceRange> <observationRange> <text>2-4</text> </observationRange> </referenceRange> </observation> </component> <component> <observation moodCode="EVN" classCode= "OBS"> <templateId root="216.840.1.102425.10..4.2" /> < id nullFlavor="NA" /> <code codeSystem="local" code="GR#" displayName= "GRANULOCYTE #" /> <statusCode code="completed" /> < effectiveTime value="" /> <value unit="k/cumm" xsi:type="PQ " value="2.9" /> <referenceRange> <observationRange> <text>2.0-9.0</text> </observationRange> </ referenceRange> </observation> </component> <component> <observation moodCode="EVN" classCode="OBS"> <templateId root= "216.840.1.810335...4.2" /> <id nullFlavor="NA" /> < code codeSystem="local" code="GR%" displayName="GRANULOCYTE %" /> <statusCode code="completed" /> <effectiveTime value="692217315815 " /> <value unit="%" xsi:type="PQ" value="44" /> < interpretationCode codeSystem="local" code="*" /> <referenceRange> <observationRange> <text>50-75</text> </ observationRange> </referenceRange> </observation> </ component> <component> <observation moodCode="EVN" classCode="OBS"> <templateId root="216.840.1.103490...4.2" /> <id nullFlavor="NA" /> <code codeSystem="local" code="LY#" displayName= "LYMPHOCYTE #" /> <statusCode code="completed" /> < effectiveTime value="" /> <value unit="k/cumm" xsi:type="PQ " value="3.1" /> <referenceRange> <observationRange> <text>1.0-4.0</text> </observationRange> </ referenceRange> </observation> </component> <component> <observation moodCode="EVN" classCode="OBS"> <templateId root= "216.840.1.449188.104.2" /> <id nullFlavor="NA" /> < code codeSystem="local" code="LY%" displayName="LYMPHOCYTE %" /> <statusCode code="completed" /> <effectiveTime value="" /> <value unit="%" xsi:type="PQ" value="47" /> < interpretationCode codeSystem="local" code="*" /> <referenceRange> <observationRange> <text>20-30</text> </ observationRange> </referenceRange> </observation> </ component> <component> <observation moodCode="EVN" classCode="OBS"> <templateId root="216.840.1.149795.10.4.2" /> <id nullFlavor="NA" /> <code codeSystem="local" code="MCH" displayName= "MEAN CELL HGB" /> <statusCode code="completed" /> < effectiveTime value="" /> <value unit="pg" xsi:type="PQ" value="20.2" /> <interpretationCode codeSystem="local" code="*" /> <referenceRange> <observationRange> <text>27.0- 33.0</text> </observationRange> </referenceRange> </ observation> </component> <component> <observation moodCode= "EVN" classCode="OBS"> <templateId root="840.1.587095.10.2022.4.2 " /> <id nullFlavor="NA" /> <code codeSystem="local" code= "MCHC" displayName="MEAN CELL HGB CONCENTRATION" /> <statusCode code= "completed" /> <effectiveTime value="" /> <value unit="g/dL" xsi:type="PQ" value="28.1" /> <interpretationCode codeSystem="local" code="*" /> <referenceRange> < observationRange> <text>32.0-37.0</text> </ observationRange> </referenceRange> </observation> </ component> <component> <observation moodCode="EVN" classCode="OBS"> <templateId root="840.1.751521.1022.4.2" /> <id nullFlavor="NA" /> <code codeSystem="local" code="MCV" displayName= "MEAN CELL VOLUME" /> <statusCode code="completed" /> < effectiveTime value="" /> <value unit="fl" xsi:type="PQ" value="72.0" /> <interpretationCode codeSystem="local" code="*" /> <referenceRange> <observationRange> <text>80.0- 100.0</text> </observationRange> </referenceRange> </ observation> </component> <component> <observation moodCode= "EVN" classCode="OBS"> <templateId root="07.12.840.1.193582.10.2022.4.2 " /> <id nullFlavor="NA" /> <code codeSystem="local" code="MO# " displayName="MONOCYTE #" /> <statusCode code="completed" /> <effectiveTime value="465992021065" /> <value unit="k/cumm" xsi:type= "PQ" value="0.5" /> <referenceRange> <observationRange> <text>0.1-1.0</text> </observationRange> </ referenceRange> </observation> </component> <component> <observation moodCode="EVN" classCode="OBS"> <templateId root= "840.1.336253.10.20.22.4.2" /> <id nullFlavor="NA" /> < code codeSystem="local" code="MO%" displayName="MONOCYTE %" /> <statusCode code="completed" /> <effectiveTime value="423716507386" /> <value unit="%" xsi:type="PQ" value="7" /> < interpretationCode codeSystem="local" code="*" /> <referenceRange> <observationRange> <text>4-6</text> </ observationRange> </referenceRange> </observation> </ component> <component> <observation moodCode="EVN" classCode="OBS"> <templateId root="840.1.685280.10.20.22.4.2" /> <id nullFlavor="NA" /> <code codeSystem="local" code="OVAL" displayName= "OVALOCYTES" /> <statusCode code="completed" /> < effectiveTime value="618971702817" /> <value unit="" xsi:type="PQ" value="NOTED" /> <referenceRange> <observationRange> <text /> </observationRange> </referenceRange> </observation> </component> <component> <observation moodCode ="EVN" classCode="OBS"> <templateId root= ".1.528941.10.20.22.4.2" /> <id nullFlavor="NA" /> < code codeSystem="local" code="RBC" displayName="RED BLOOD CELL" /> < statusCode code="completed" /> <effectiveTime value="" /> <value unit="m/cumm" xsi:type="PQ" value="3.71" /> < interpretationCode codeSystem="local" code="*" /> <referenceRange> <observationRange> <text>4.00-6.00</text> </ observationRange> </referenceRange> </observation> </ component> <component> <observation moodCode="EVN" classCode="OBS"> <templateId root="840.1.235901.10.22.4.2" /> <id nullFlavor="NA" /> <code codeSystem="local" code="RDW" displayName=" RED CELL DISTRIBUTION WIDTH" /> <statusCode code="completed" /> <effectiveTime value="" /> <value unit="%" xsi:type= "PQ" value="18.4" /> <interpretationCode codeSystem="local" code="*" / > <referenceRange> <observationRange> <text> 11.0-15.6</text> </observationRange> </referenceRange> </observation> </component> <component> <observation moodCode="EVN" classCode="OBS"> <templateId root= "07.12.840.1.827198.10.20.22.4.2" /> <id nullFlavor="NA" /> < code codeSystem="local" code="DIOGENES" displayName="SCHISTOCYTES" /> < statusCode code="completed" /> <effectiveTime value="[id number]" /> <value unit="" xsi:type="PQ" value="NOTED" /> <referenceRange > <observationRange> <text /> </ observationRange> </referenceRange> </observation> </ component> <component> <observation moodCode="EVN" classCode="OBS"> <templateId root="07.12.840.1.094830.10.20.22.4.2" /> <id nullFlavor="NA" /> <code codeSystem="local" code="WBC" displayName= "WHITE BLOOD CELL" /> <statusCode code="completed" /> < effectiveTime value="395343977256" /> <value unit="k/cumm" xsi:type="PQ " value="6.7" /> <referenceRange> <observationRange> <text>5.0-10.0</text> </observationRange> </ referenceRange> </observation> </component> <component> <observation moodCode="EVN" classCode="OBS"> <templateId root= "07.12.840.1.592940.10.22.4.2" /> <id nullFlavor="NA" /> < code codeSystem="local" code="HGBT" displayName="HEMOGLOBIN" /> < statusCode code="completed" /> <effectiveTime value="037648619486" /> <value unit="gm/dL" xsi:type="PQ" value="7.5" /> < interpretationCode codeSystem="local" code="*" /> <referenceRange> <observationRange> <text>12.0-16.0</text> </ observationRange> </referenceRange> </observation> </ component> <component> <observation moodCode="EVN" classCode="OBS"> <templateId root="07.12.840.1.643823.10.20.22.4.2" /> <id nullFlavor="NA" /> <code codeSystem="local" code="HCTT" displayName= "HEMATOCRIT" /> <statusCode code="completed" /> < effectiveTime value="078510227321" /> <value unit="%" xsi:type="PQ " value="26.7" /> <interpretationCode codeSystem="local" code="*" /> <referenceRange> <observationRange> <text>37.0- 47.0</text> </observationRange> </referenceRange> </ observation> </component> <component> <observation moodCode= "EVN" classCode="OBS"> <templateId root="216.840.1.573949.10..4.2 " /> <id nullFlavor="NA" /> <code codeSystem="local" code="PLT " displayName="PLATELET COUNT" /> <statusCode code="completed" /> <effectiveTime value="" /> <value unit="k/cumm" xsi: type="PQ" value="296" /> <referenceRange> <observationRange > <text>150-400</text> </observationRange> </ referenceRange> </observation> </component> </organizer> </entry > <entry> <organizer moodCode="EVN" classCode="BATTERY"> <templateId root="216.840.1.658280.10..4.1" /> <id nullFlavor="NA" /> <code codeSystem="local" code="PT" displayName="PROTHROMBIN TIME WITH INR" /> < statusCode code="completed" /> <component> <observation moodCode= "EVN" classCode="OBS"> <templateId root="16.840.1.637750.102022.4.2 " /> <id nullFlavor="NA" /> <code codeSystem="local" code= "INRX" displayName="INTERNATIONAL NORMAL RATIO" /> <statusCode code= "completed" /> <effectiveTime value="[id number]" /> <value unit="" xsi:type="PQ" value="1.0" /> <referenceRange> < observationRange> <text>0.9-1.1</text> </ observationRange> </referenceRange> </observation> </ component> <component> <observation moodCode="EVN" classCode="OBS"> <templateId root="16.840.1.494565.03.15.22.4.2" /> <id nullFlavor="NA" /> <code codeSystem="local" code="PTPAT" displayName= "PROTHROMBIN TIME" /> <statusCode code="completed" /> < effectiveTime value="" /> <value unit="sec" xsi:type="PQ" value="10.9" /> <referenceRange> <observationRange> <text>9.3-12.2</text> </observationRange> </ referenceRange> </observation> </component> </organizer> </entry > <entry> <organizer moodCode="EVN" classCode="BATTERY"> <templateId root="07.12.840.1.582172.03.15.22.4.1" /> <id nullFlavor="NA" /> <code codeSystem="local" code="PROLAC" displayName="PROLACTIN" /> <statusCode code="completed" /> <component> <observation moodCode="EVN" classCode="OBS"> <templateId root="07.12.840.1.018897.22.4.2" /> <id nullFlavor="NA" /> <code codeSystem="local" code="PROLAC" displayName="PROLACTIN" /> <statusCode code="completed" /> < effectiveTime value="981500329336" /> <value unit="ng/mL" xsi:type="PQ " value="48.8" /> <interpretationCode codeSystem="local" code="*" /> <referenceRange> <observationRange> <text>1.8- 29.2</text> </observationRange> </referenceRange> </ observation> </component> </organizer> </entry> <entry> <organizer moodCode="EVN" classCode="BATTERY"> <templateId root= "216.840.1.336702.10..22.4.1" /> <id nullFlavor="NA" /> <code codeSystem="local" code="iCHEM8" displayName="CHEM/HEM PROFILE-BEDSIDE" /> <statusCode code="completed" /> <component> <observation moodCode= "EVN" classCode="OBS"> <templateId root="16.840.1.976584.10...4.2 " /> <id nullFlavor="NA" /> <code codeSystem="local" code="K" displayName="POTASSIUM" /> <statusCode code="completed" /> < effectiveTime value="406759556462" /> <value unit="mmol/L" xsi:type="PQ " value="3.6" /> <referenceRange> <observationRange> <text>3.5-5.3</text> </observationRange> </ referenceRange> </observation> </component> <component> <observation moodCode="EVN" classCode="OBS"> <templateId root= "16.840.1.560693.10..4.2" /> <id nullFlavor="NA" /> < code codeSystem="local" code="CMETHOD" displayName="METHOD" /> < statusCode code="completed" /> <effectiveTime value="307550055139" /> <value unit="" xsi:type="PQ" value="Bedside" /> < referenceRange> <observationRange> <text /> < /observationRange> </referenceRange> </observation> </ component> <component> <observation moodCode="EVN" classCode="OBS"> <templateId root="216.840.1.221260.22.4.2" /> <id nullFlavor="NA" /> <code codeSystem="local" code="GAP" displayName= "ANION GAP" /> <statusCode code="completed" /> <effectiveTime value="" /> <value unit="mmol/L" xsi:type="PQ" value="16" / > <referenceRange> <observationRange> <text>10- 20</text> </observationRange> </referenceRange> </ observation> </component> <component> <observation moodCode= "EVN" classCode="OBS"> <templateId root="216.840.1.263678.03.15.22.4.2 " /> <id nullFlavor="NA" /> <code codeSystem="local" code= "HMETHOD" displayName="METHOD" /> <statusCode code="completed" /> <effectiveTime value="" /> <value unit="" xsi:type="PQ " value="Bedside" /> <referenceRange> <observationRange> <text /> </observationRange> </referenceRange> </observation> </component> <component> <observation moodCode="EVN" classCode="OBS"> <templateId root= "16.840.1.414136.1022.4.2" /> <id nullFlavor="NA" /> < code codeSystem="local" code="GLU" displayName="GLUCOSE" /> < statusCode code="completed" /> <effectiveTime value="" /> <value unit="mg/dL" xsi:type="PQ" value="74" /> < referenceRange> <observationRange> <text>70-99</text> </observationRange> </referenceRange> </observation> </component> <component> <observation moodCode="EVN" classCode= "OBS"> <templateId root="216.840.1.356170.10..4.2" /> < id nullFlavor="NA" /> <code codeSystem="local" code="BUN" displayName= "BLOOD UREA NITROGEN" /> <statusCode code="completed" /> < effectiveTime value="661970129643" /> <value unit="mg/dL" xsi:type="PQ " value="5" /> <interpretationCode codeSystem="local" code="*" /> <referenceRange> <observationRange> <text>7-20</ text> </observationRange> </referenceRange> </ observation> </component> <component> <observation moodCode= "EVN" classCode="OBS"> <templateId root="16.840.1.446345.03.15.22.4.2 " /> <id nullFlavor="NA" /> <code codeSystem="local" code= "CREAT" displayName="CREATININE" /> <statusCode code="completed" /> <effectiveTime value="571936265681" /> <value unit="mg/dL" xsi: type="PQ" value="0.8" /> <referenceRange> <observationRange > <text>0.6-1.0</text> </observationRange> </ referenceRange> </observation> </component> <component> <observation moodCode="EVN" classCode="OBS"> <templateId root= "16.840.1.831011.10..4.2" /> <id nullFlavor="NA" /> < code codeSystem="local" code="HGBT" displayName="HEMOGLOBIN" /> < statusCode code="completed" /> <effectiveTime value="780993678526" /> <value unit="gm/dL" xsi:type="PQ" value="8.5" /> < interpretationCode codeSystem="local" code="*" /> <referenceRange> <observationRange> <text>12.0-16.0</text> </ observationRange> </referenceRange> </observation> </ component> <component> <observation moodCode="EVN" classCode="OBS"> <templateId root="07.12.840.1.587468.10.20.22.4.2" /> <id nullFlavor="NA" /> <code codeSystem="local" code="HCTT" displayName= "HEMATOCRIT" /> <statusCode code="completed" /> < effectiveTime value="339799066514" /> <value unit="%" xsi:type="PQ " value="25.0" /> <interpretationCode codeSystem="local" code="*" /> <referenceRange> <observationRange> <text>37.0- 47.0</text> </observationRange> </referenceRange> </ observation> </component> <component> <observation moodCode= "EVN" classCode="OBS"> <templateId root="07.12.840.1.161189.10.20.22.4.2 " /> <id nullFlavor="NA" /> <code codeSystem="local" code="NA " displayName="SODIUM" /> <statusCode code="completed" /> < effectiveTime value="679386450260" /> <value unit="mmol/L" xsi:type="PQ " value="135" /> <referenceRange> <observationRange> <text>135-148</text> </observationRange> </ referenceRange> </observation> </component> <component> <observation moodCode="EVN" classCode="OBS"> <templateId root= "840.1.863373.10..22.4.2" /> <id nullFlavor="NA" /> < code codeSystem="local" code="CL" displayName="CHLORIDE" /> < statusCode code="completed" /> <effectiveTime value="" /> <value unit="mmol/L" xsi:type="PQ" value="100" /> < referenceRange> <observationRange> <text>98-110</text> </observationRange> </referenceRange> </observation> </component> <component> <observation moodCode="EVN" classCode ="OBS"> <templateId root="2.16.840.1.974307.10..4.2" /> < id nullFlavor="NA" /> <code codeSystem="local" code="CO2" displayName= "CARBON DIOXIDE" /> <statusCode code="completed" /> < effectiveTime value="" /> <value unit="mmol/L" xsi:type="PQ " value="23" /> <referenceRange> <observationRange> <text>21-32</text> </observationRange> </ referenceRange> </observation> </component> <component> <observation moodCode="EVN" classCode="OBS"> <templateId root= "2.16.840.1.428513.10...4.2" /> <id nullFlavor="NA" /> < code codeSystem="local" code="CAION" displayName="CALCIUM IONIZED" /> < statusCode code="completed" /> <effectiveTime value="" /> <value unit="mg/dL" xsi:type="PQ" value="4.6" /> < referenceRange> <observationRange> <text>4.5-5.3</text> </observationRange> </referenceRange> </observation > </component> </organizer> </entry> <entry> <organizer moodCode= "EVN" classCode="BATTERY"> <templateId root="216.840.1.126508.10..22.4.1 " /> <id nullFlavor="NA" /> <code codeSystem="local" code="UA" displayName="URINALYSIS, ROUTINE" /> <statusCode code="completed" /> < component> <observation moodCode="EVN" classCode="OBS"> < templateId root="216.840.1.862695.10..22.4.2" /> <id nullFlavor="NA " /> <code codeSystem="local" code="LEUESU" displayName="UA LEUKOCYTE ESTERASE DIPSTICK" /> <statusCode code="completed" /> < effectiveTime value="" /> <value unit="" xsi:type="PQ" value="2+" /> <interpretationCode codeSystem="local" code="*" /> <referenceRange> <observationRange> <text>NEGATIVE</ text> </observationRange> </referenceRange> </ observation> </component> <component> <observation moodCode= "EVN" classCode="OBS"> <templateId root="216.840.1.545058.10..22.4.2 " /> <id nullFlavor="NA" /> <code codeSystem="local" code= "NITRIU" displayName="UA NITRITE DIPSTICK" /> <statusCode code= "completed" /> <effectiveTime value="" /> <value unit="" xsi:type="PQ" value="NEGATIVE" /> <referenceRange> < observationRange> <text>NEGATIVE</text> </ observationRange> </referenceRange> </observation> </ component> <component> <observation moodCode="EVN" classCode="OBS"> <templateId root="07.12.840.1.647601.10..4.2" /> <id nullFlavor="NA" /> <code codeSystem="local" code="PROTEIU" displayName= "UA PROTEIN DIPSTICK" /> <statusCode code="completed" /> < effectiveTime value="" /> <value unit="" xsi:type="PQ" value="TRACE" /> <interpretationCode codeSystem="local" code="*" /> <referenceRange> <observationRange> <text> NEGATIVE</text> </observationRange> </referenceRange> </observation> </component> <component> <observation moodCode ="EVN" classCode="OBS"> <templateId root= "840.1.025828.03.15.22.4.2" /> <id nullFlavor="NA" /> < code codeSystem="local" code="DGLUU" displayName="UA GLUCOSE DIPSTICK" /> <statusCode code="completed" /> <effectiveTime value=" " /> <value unit="" xsi:type="PQ" value="NEGATIVE" /> < referenceRange> <observationRange> <text>NEGATIVE</text > </observationRange> </referenceRange> </observation > </component> <component> <observation moodCode="EVN" classCode="OBS"> <templateId root="07.12.840.1.902094.10..4.2" /> <id nullFlavor="NA" /> <code codeSystem="local" code="KETONU" displayName="UA KETONE DIPSTICK" /> <statusCode code="completed" /> <effectiveTime value="" /> <value unit="" xsi:type= "PQ" value="1+" /> <interpretationCode codeSystem="local" code="*" /> <referenceRange> <observationRange> <text> NEGATIVE</text> </observationRange> </referenceRange> </observation> </component> <component> <observation moodCode ="EVN" classCode="OBS"> <templateId root= "07.12.840.1.855963.10.20.22.4.2" /> <id nullFlavor="NA" /> < code codeSystem="local" code="UROBILU" displayName="UA UROBILINOGEN DIPSTICK" / > <statusCode code="completed" /> <effectiveTime value= "" /> <value unit="" xsi:type="PQ" value="2+" /> < interpretationCode codeSystem="local" code="*" /> <referenceRange> <observationRange> <text>NORMAL</text> </ observationRange> </referenceRange> </observation> </ component> <component> <observation moodCode="EVN" classCode="OBS"> <templateId root="840.1.138906.10..4.2" /> <id nullFlavor="NA" /> <code codeSystem="local" code="BILU" displayName=" UA BILIRUBIN DIPSTICK" /> <statusCode code="completed" /> < effectiveTime value="" /> <value unit="" xsi:type="PQ" value="POSITIVE" /> <interpretationCode codeSystem="local" code="*" /> <referenceRange> <observationRange> <text> NEGATIVE</text> </observationRange> </referenceRange> </observation> </component> <component> <observation moodCode ="EVN" classCode="OBS"> <templateId root= "07.12.840.1.948598.10.2022.4.2" /> <id nullFlavor="NA" /> < code codeSystem="local" code="LON" displayName="UA BLOOD DIPSTICK" /> < statusCode code="completed" /> <effectiveTime value="" /> <value unit="" xsi:type="PQ" value="2+" /> < interpretationCode codeSystem="local" code="*" /> <referenceRange> <observationRange> <text>NEGATIVE</text> </ observationRange> </referenceRange> </observation> </ component> <component> <observation moodCode="EVN" classCode="OBS"> <templateId root="16.840.1.810153.10..22.4.2" /> <id nullFlavor="NA" /> <code codeSystem="local" code="COMU" displayName=" UA COMMENT" /> <statusCode code="completed" /> <effectiveTime value="" /> <value unit="" xsi:type="PQ" value="" /> <referenceRange> <observationRange> <text /> </observationRange> </referenceRange> </observation> </component> <component> <observation moodCode="EVN" classCode= "OBS"> <templateId root="16.840.1.303029.10.20.22.4.2" /> < id nullFlavor="NA" /> <code codeSystem="local" code="SPGRU" displayName ="UA SPECIFIC GRAVITY" /> <statusCode code="completed" /> < effectiveTime value="" /> <value unit="" xsi:type="PQ" value="1.015" /> <referenceRange> <observationRange> <text>1.015-1.025</text> </observationRange> </ referenceRange> </observation> </component> <component> <observation moodCode="EVN" classCode="OBS"> <templateId root= "16.840.1.656801.03.15.22.4.2" /> <id nullFlavor="NA" /> < code codeSystem="local" code="WILLOW" displayName="UR PH" /> <statusCode code="completed" /> <effectiveTime value="" /> < value unit="" xsi:type="PQ" value="6.5" /> <referenceRange> <observationRange> <text>5.0-7.0</text> </ observationRange> </referenceRange> </observation> </ component> </organizer> </entry> <entry> <organizer moodCode="EVN" classCode="BATTERY"> <templateId root="07.12.840.1.439116.03.15.22.4.1" /> <id nullFlavor="NA" /> <code codeSystem="local" code="UAMICRO" displayName="UA MICROSCOPIC" /> <statusCode code="completed" /> < component> <observation moodCode="EVN" classCode="OBS"> < templateId root="07.12.840.1.111054.03.15.22.4.2" /> <id nullFlavor="NA " /> <code codeSystem="local" code="BACU" displayName="UA BACTERIA" /> <statusCode code="completed" /> <effectiveTime value= "" /> <value unit="" xsi:type="PQ" value="4+" /> < interpretationCode codeSystem="local" code="*" /> <referenceRange> <observationRange> <text>NEGATIVE</text> </ observationRange> </referenceRange> </observation> </ component> <component> <observation moodCode="EVN" classCode="OBS"> <templateId root="07.12.840.1.614386.03.15.22.4.2" /> <id nullFlavor="NA" /> <code codeSystem="local" code="EPIU" displayName=" UA EPITHELIAL CELLS" /> <statusCode code="completed" /> < effectiveTime value="" /> <value unit="epi/hpf" xsi:type= "PQ" value="2+" /> <interpretationCode codeSystem="local" code="*" /> <referenceRange> <observationRange> <text>0 - 1 +</text> </observationRange> </referenceRange> </ observation> </component> <component> <observation moodCode= "EVN" classCode="OBS"> <templateId root="2.16.840.1.982369.03.15.22.4.2 " /> <id nullFlavor="NA" /> <code codeSystem="local" code= "MUCUSU" displayName="UA MUCUS" /> <statusCode code="completed" /> <effectiveTime value="" /> <value unit="" xsi:type= "PQ" value="2+" /> <interpretationCode codeSystem="local" code="*" /> <referenceRange> <observationRange> <text>NEG TO 1+</text> </observationRange> </referenceRange> </ observation> </component> <component> <observation moodCode= "EVN" classCode="OBS"> <templateId root="2.16.840.1.298156.10..4.2 " /> <id nullFlavor="NA" /> <code codeSystem="local" code= "RBCU" displayName="UA RBC" /> <statusCode code="completed" /> <effectiveTime value="" /> <value unit="rbc/hpf" xsi:type ="PQ" value="5-10" /> <interpretationCode codeSystem="local" code="*" / > <referenceRange> <observationRange> <text>0 - 3</text> </observationRange> </referenceRange> </ observation> </component> <component> <observation moodCode= "EVN" classCode="OBS"> <templateId root="16.840.1.166168.10...4.2 " /> <id nullFlavor="NA" /> <code codeSystem="local" code= "UAVOL" displayName="UA VOLUME FOR EXAM" /> <statusCode code="completed " /> <effectiveTime value="" /> <value unit="mL" xsi:type="PQ" value="12.0" /> <referenceRange> < observationRange> <text>(12mL STD)</text> </ observationRange> </referenceRange> </observation> </ component> <component> <observation moodCode="EVN" classCode="OBS"> <templateId root="07.12.840.1.638495.03.15.22.4.2" /> <id nullFlavor="NA" /> <code codeSystem="local" code="WBCU" displayName=" UA WBC" /> <statusCode code="completed" /> <effectiveTime value="" /> <value unit="wbc/hpf" xsi:type="PQ" value="5-10 " /> <interpretationCode codeSystem="local" code="*" /> < referenceRange> <observationRange> <text>0 - 5</text> </observationRange> </referenceRange> </observation> </component> </organizer> </entry> <entry> <organizer moodCode="EVN " classCode="BATTERY"> <templateId root="16.840.1.999898.10...4.1" / > <id nullFlavor="NA" /> <code codeSystem="local" code="METAB" displayName="METABOLIC PANEL, BASIC" /> <statusCode code="completed" /> <component> <observation moodCode="EVN" classCode="OBS"> < templateId root="07.12.840.1.139634.03.15.22.4.2" /> <id nullFlavor="NA " /> <code codeSystem="local" code="K" displayName="POTASSIUM" /> <statusCode code="completed" /> <effectiveTime value=" " /> <value unit="mmol/L" xsi:type="PQ" value="4.2" /> < referenceRange> <observationRange> <text>3.5-5.3</text> </observationRange> </referenceRange> </observation > </component> <component> <observation moodCode="EVN" classCode="OBS"> <templateId root="07.12.840.1.541854.03.15.22.4.2" /> <id nullFlavor="NA" /> <code codeSystem="local" code="eGFR" displayName="EST GFR (MDRD)" /> <statusCode code="completed" /> <effectiveTime value="" /> <value unit="mL/min" xsi:type ="PQ" value="> 60" /> <referenceRange> <observationRange > <text>> 59</text> </observationRange> </ referenceRange> </observation> </component> <component> <observation moodCode="EVN" classCode="OBS"> <templateId root= "07.12.840.1.651405...4.2" /> <id nullFlavor="NA" /> < code codeSystem="local" code="GAP" displayName="ANION GAP" /> < statusCode code="completed" /> <effectiveTime value="" /> <value unit="mmol/L" xsi:type="PQ" value="8" /> < referenceRange> <observationRange> <text>5-15</text> </observationRange> </referenceRange> </observation> </component> <component> <observation moodCode="EVN" classCode= "OBS"> <templateId root="07.12.840.1.034049.10...4.2" /> < id nullFlavor="NA" /> <code codeSystem="local" code="eCrCl" displayName ="EST CrCl (CG)" /> <statusCode code="completed" /> < effectiveTime value="680584943645" /> <value unit="mL/min" xsi:type="PQ " value="> 60" /> <referenceRange> <observationRange> <text>> 59</text> </observationRange> </ referenceRange> </observation> </component> <component> <observation moodCode="EVN" classCode="OBS"> <templateId root= "840.1.657977.03.15.22.4.2" /> <id nullFlavor="NA" /> < code codeSystem="local" code="GLU" displayName="GLUCOSE" /> < statusCode code="completed" /> <effectiveTime value="687794708739" /> <value unit="mg/dL" xsi:type="PQ" value="85" /> < referenceRange> <observationRange> <text>70-99</text> </observationRange> </referenceRange> </observation> </component> <component> <observation moodCode="EVN" classCode= "OBS"> <templateId root="07.12.840.1.432577.10..4.2" /> < id nullFlavor="NA" /> <code codeSystem="local" code="CA" displayName= "CALCIUM" /> <statusCode code="completed" /> <effectiveTime value="085284864224" /> <value unit="mg/dL" xsi:type="PQ" value="8.2" / > <interpretationCode codeSystem="local" code="*" /> < referenceRange> <observationRange> <text>8.5-10.1</text > </observationRange> </referenceRange> </observation > </component> <component> <observation moodCode="EVN" classCode="OBS"> <templateId root="216.840.1.581959.10.20.22.4.2" /> <id nullFlavor="NA" /> <code codeSystem="local" code="BUN" displayName="BLOOD UREA NITROGEN" /> <statusCode code="completed" /> <effectiveTime value="020469217672" /> <value unit="mg/dL" xsi: type="PQ" value="4" /> <interpretationCode codeSystem="local" code="*" /> <referenceRange> <observationRange> <text>7- 20</text> </observationRange> </referenceRange> </ observation> </component> <component> <observation moodCode= "EVN" classCode="OBS"> <templateId root="2.16.840.1.334809.10.20.22.4.2 " /> <id nullFlavor="NA" /> <code codeSystem="local" code= "CREAT" displayName="CREATININE" /> <statusCode code="completed" /> <effectiveTime value="622865803791" /> <value unit="mg/dL" xsi: type="PQ" value="0.7" /> <referenceRange> <observationRange > <text>0.6-1.0</text> </observationRange> </ referenceRange> </observation> </component> <component> <observation moodCode="EVN" classCode="OBS"> <templateId root= "216.840.1.825759.10..22.4.2" /> <id nullFlavor="NA" /> < code codeSystem="local" code="NA" displayName="SODIUM" /> <statusCode code="completed" /> <effectiveTime value="379835157896" /> < value unit="mmol/L" xsi:type="PQ" value="142" /> <referenceRange> <observationRange> <text>135-148</text> </ observationRange> </referenceRange> </observation> </ component> <component> <observation moodCode="EVN" classCode="OBS"> <templateId root="216.840.1.541269.10..22.4.2" /> <id nullFlavor="NA" /> <code codeSystem="local" code="CL" displayName= "CHLORIDE" /> <statusCode code="completed" /> <effectiveTime value="[id number]" /> <value unit="mmol/L" xsi:type="PQ" value="106" /> <referenceRange> <observationRange> <text>98 -110</text> </observationRange> </referenceRange> </ observation> </component> <component> <observation moodCode= "EVN" classCode="OBS"> <templateId root="216.840.1.216128.10..22.4.2 " /> <id nullFlavor="NA" /> <code codeSystem="local" code="CO2 " displayName="CARBON DIOXIDE" /> <statusCode code="completed" /> <effectiveTime value="" /> <value unit="mmol/L" xsi: type="PQ" value="28" /> <referenceRange> <observationRange> <text>21-32</text> </observationRange> </ referenceRange> </observation> </component> </organizer> </entry > <entry> <organizer moodCode="EVN" classCode="BATTERY"> <templateId root="216.840.1.144002.10..22.4.1" /> <id nullFlavor="NA" /> <code codeSystem="local" code="CBCD" displayName="CBC W/DIFF" /> <statusCode code ="completed" /> <component> <observation moodCode="EVN" classCode= "OBS"> <templateId root="2.16.840.1.960115.10...4.2" /> < id nullFlavor="NA" /> <code codeSystem="local" code="BA#" displayName= "BASOPHIL #" /> <statusCode code="completed" /> < effectiveTime value="638209805092" /> <value unit="k/cumm" xsi:type="PQ " value="0.0" /> <referenceRange> <observationRange> <text>0.0-0.2</text> </observationRange> </ referenceRange> </observation> </component> <component> <observation moodCode="EVN" classCode="OBS"> <templateId root= "2.16.840.1.610567.10...4.2" /> <id nullFlavor="NA" /> < code codeSystem="local" code="BA%" displayName="BASOPHIL %" /> <statusCode code="completed" /> <effectiveTime value="628705149072" /> <value unit="%" xsi:type="PQ" value="1" /> < referenceRange> <observationRange> <text>0-1</text> </observationRange> </referenceRange> </observation> </component> <component> <observation moodCode="EVN" classCode= "OBS"> <templateId root="07.12.840.1.643128.10.22.4.2" /> < id nullFlavor="NA" /> <code codeSystem="local" code="EO#" displayName= "EOSINOPHIL #" /> <statusCode code="completed" /> < effectiveTime value="" /> <value unit="k/cumm" xsi:type="PQ " value="0.2" /> <referenceRange> <observationRange> <text>0.1-0.5</text> </observationRange> </ referenceRange> </observation> </component> <component> <observation moodCode="EVN" classCode="OBS"> <templateId root= "07.12.840.1.167787.03.15.22.4.2" /> <id nullFlavor="NA" /> < code codeSystem="local" code="EO%" displayName="EOSINOPHIL %" /> <statusCode code="completed" /> <effectiveTime value="" /> <value unit="%" xsi:type="PQ" value="3" /> < referenceRange> <observationRange> <text>2-4</text> </observationRange> </referenceRange> </observation> </component> <component> <observation moodCode="EVN" classCode= "OBS"> <templateId root="07.12.840.1.927667.10.22.4.2" /> < id nullFlavor="NA" /> <code codeSystem="local" code="GR#" displayName= "GRANULOCYTE #" /> <statusCode code="completed" /> < effectiveTime value="" /> <value unit="k/cumm" xsi:type="PQ " value="2.2" /> <referenceRange> <observationRange> <text>2.0-9.0</text> </observationRange> </ referenceRange> </observation> </component> <component> <observation moodCode="EVN" classCode="OBS"> <templateId root= "07.12.840.1.880250.10.2022.4.2" /> <id nullFlavor="NA" /> < code codeSystem="local" code="GR%" displayName="GRANULOCYTE %" /> <statusCode code="completed" /> <effectiveTime value="840297006740 " /> <value unit="%" xsi:type="PQ" value="39" /> < interpretationCode codeSystem="local" code="*" /> <referenceRange> <observationRange> <text>50-75</text> </ observationRange> </referenceRange> </observation> </ component> <component> <observation moodCode="EVN" classCode="OBS"> <templateId root="840.1.942829.03.15.22.4.2" /> <id nullFlavor="NA" /> <code codeSystem="local" code="LY#" displayName= "LYMPHOCYTE #" /> <statusCode code="completed" /> < effectiveTime value="966736990594" /> <value unit="k/cumm" xsi:type="PQ " value="2.5" /> <referenceRange> <observationRange> <text>1.0-4.0</text> </observationRange> </ referenceRange> </observation> </component> <component> <observation moodCode="EVN" classCode="OBS"> <templateId root= "07.12.840.1.341511.1022.4.2" /> <id nullFlavor="NA" /> < code codeSystem="local" code="LY%" displayName="LYMPHOCYTE %" /> <statusCode code="completed" /> <effectiveTime value="" /> <value unit="%" xsi:type="PQ" value="44" /> < interpretationCode codeSystem="local" code="*" /> <referenceRange> <observationRange> <text>20-30</text> </ observationRange> </referenceRange> </observation> </ component> <component> <observation moodCode="EVN" classCode="OBS"> <templateId root="216.840.1.966754.10.20.22.4.2" /> <id nullFlavor="NA" /> <code codeSystem="local" code="MCH" displayName= "MEAN CELL HGB" /> <statusCode code="completed" /> < effectiveTime value="783002214685" /> <value unit="pg" xsi:type="PQ" value="19.6" /> <interpretationCode codeSystem="local" code="*" /> <referenceRange> <observationRange> <text>27.0- 33.0</text> </observationRange> </referenceRange> </ observation> </component> <component> <observation moodCode= "EVN" classCode="OBS"> <templateId root="216.840.1.129177.10.20.22.4.2 " /> <id nullFlavor="NA" /> <code codeSystem="local" code= "MCHC" displayName="MEAN CELL HGB CONCENTRATION" /> <statusCode code= "completed" /> <effectiveTime value="969636605176" /> <value unit="g/dL" xsi:type="PQ" value="26.8" /> <interpretationCode codeSystem="local" code="*" /> <referenceRange> < observationRange> <text>32.0-37.0</text> </ observationRange> </referenceRange> </observation> </ component> <component> <observation moodCode="EVN" classCode="OBS"> <templateId root="216.840.1.959926.10.4.2" /> <id nullFlavor="NA" /> <code codeSystem="local" code="MCV" displayName= "MEAN CELL VOLUME" /> <statusCode code="completed" /> < effectiveTime value="" /> <value unit="fl" xsi:type="PQ" value="73.2" /> <interpretationCode codeSystem="local" code="*" /> <referenceRange> <observationRange> <text>80.0- 100.0</text> </observationRange> </referenceRange> </ observation> </component> <component> <observation moodCode= "EVN" classCode="OBS"> <templateId root="07.12.840.1.291951.03.15.224.2 " /> <id nullFlavor="NA" /> <code codeSystem="local" code="MO# " displayName="MONOCYTE #" /> <statusCode code="completed" /> <effectiveTime value="" /> <value unit="k/cumm" xsi:type= "PQ" value="0.8" /> <referenceRange> <observationRange> <text>0.1-1.0</text> </observationRange> </ referenceRange> </observation> </component> <component> <observation moodCode="EVN" classCode="OBS"> <templateId root= "216.840.1.378811.22.4.2" /> <id nullFlavor="NA" /> < code codeSystem="local" code="MO%" displayName="MONOCYTE %" /> <statusCode code="completed" /> <effectiveTime value="" /> <value unit="%" xsi:type="PQ" value="14" /> < interpretationCode codeSystem="local" code="*" /> <referenceRange> <observationRange> <text>4-6</text> </ observationRange> </referenceRange> </observation> </ component> <component> <observation moodCode="EVN" classCode="OBS"> <templateId root="840.1.627311.03.15.22.4.2" /> <id nullFlavor="NA" /> <code codeSystem="local" code="OVAL" displayName= "OVALOCYTES" /> <statusCode code="completed" /> < effectiveTime value="" /> <value unit="" xsi:type="PQ" value="NOTED" /> <referenceRange> <observationRange> <text /> </observationRange> </referenceRange> </observation> </component> <component> <observation moodCode ="EVN" classCode="OBS"> <templateId root= "840.1.048501.03.15.22.4.2" /> <id nullFlavor="NA" /> < code codeSystem="local" code="POLC" displayName="POLYCHROMASIA" /> < statusCode code="completed" /> <effectiveTime value="" /> <value unit="" xsi:type="PQ" value="NOTED" /> <referenceRange > <observationRange> <text /> </ observationRange> </referenceRange> </observation> </ component> <component> <observation moodCode="EVN" classCode="OBS"> <templateId root="07.12.840.1.452652.03.15.22.4.2" /> <id nullFlavor="NA" /> <code codeSystem="local" code="RBC" displayName=" RED BLOOD CELL" /> <statusCode code="completed" /> < effectiveTime value="" /> <value unit="m/cumm" xsi:type="PQ " value="2.91" /> <interpretationCode codeSystem="local" code="*" /> <referenceRange> <observationRange> <text>4.00- 6.00</text> </observationRange> </referenceRange> </ observation> </component> <component> <observation moodCode= "EVN" classCode="OBS"> <templateId root="2.16.840.1.006893.10..22.4.2 " /> <id nullFlavor="NA" /> <code codeSystem="local" code="RDW " displayName="RED CELL DISTRIBUTION WIDTH" /> <statusCode code= "completed" /> <effectiveTime value="" /> <value unit="%" xsi:type="PQ" value="18.1" /> <interpretationCode codeSystem="local" code="*" /> <referenceRange> < observationRange> <text>11.0-15.6</text> </ observationRange> </referenceRange> </observation> </ component> <component> <observation moodCode="EVN" classCode="OBS"> <templateId root="216.840.1.856619.10.20.22.4.2" /> <id nullFlavor="NA" /> <code codeSystem="local" code="WBC" displayName= "WHITE BLOOD CELL" /> <statusCode code="completed" /> < effectiveTime value="" /> <value unit="k/cumm" xsi:type="PQ " value="5.7" /> <referenceRange> <observationRange> <text>5.0-10.0</text> </observationRange> </ referenceRange> </observation> </component> <component> <observation moodCode="EVN" classCode="OBS"> <templateId root= "216.840.1.074424.10..4.2" /> <id nullFlavor="NA" /> < code codeSystem="local" code="HGBT" displayName="HEMOGLOBIN" /> < statusCode code="completed" /> <effectiveTime value="588956363441" /> <value unit="gm/dL" xsi:type="PQ" value="5.7" /> < interpretationCode codeSystem="local" code="" /> <referenceRange> <observationRange> <text>12.0-16.0</text> </ observationRange> </referenceRange> </observation> </ component> <component> <observation moodCode="EVN" classCode="OBS"> <templateId root="07.12.840.1.332954.03.15.22.4.2" /> <id nullFlavor="NA" /> <code codeSystem="local" code="HCTT" displayName= "HEMATOCRIT" /> <statusCode code="completed" /> < effectiveTime value="525920952319" /> <value unit="%" xsi:type="PQ " value="21.3" /> <interpretationCode codeSystem="local" code="*" /> <referenceRange> <observationRange> <text>37.0- 47.0</text> </observationRange> </referenceRange> </ observation> </component> <component> <observation moodCode= "EVN" classCode="OBS"> <templateId root="07.12.840.1.817975.03.15.22.4.2 " /> <id nullFlavor="NA" /> <code codeSystem="local" code="PLT " displayName="PLATELET COUNT" /> <statusCode code="completed" /> <effectiveTime value="717041623011" /> <value unit="k/cumm" xsi: type="PQ" value="211" /> <referenceRange> <observationRange > <text>150-450</text> </observationRange> </ referenceRange> </observation> </component> </organizer> </entry > <entry> <organizer moodCode="EVN" classCode="BATTERY"> <templateId root="16.840.1.805028.03.15.22.4.1" /> <id nullFlavor="NA" /> <code codeSystem="local" code="MORPH" displayName="MORPHOLOGY" /> <statusCode code="completed" /> <component> <observation moodCode="EVN" classCode="OBS"> <templateId root="216.840.1.183026.03.15.22.4.2" /> <id nullFlavor="NA" /> <code codeSystem="local" code="RMORPH" displayName="RBC MORPH" /> <statusCode code="completed" /> < effectiveTime value="599764145701" /> <value unit="" xsi:type="PQ" value="NOTED" /> <referenceRange> <observationRange> <text /> </observationRange> </referenceRange> </observation> </component> </organizer> </entry> <entry> < organizer moodCode="EVN" classCode="BATTERY"> <templateId root= "07.12.840.1.541521.03.15.22.4.1" /> <id nullFlavor="NA" /> <code codeSystem="local" code="VRESP" displayName="VIRUS RESPIRATORY SCREEN" /> < statusCode code="completed" /> <component> <observation moodCode= "EVN" classCode="OBS"> <templateId root="16.840.1.391360.10..22.4.2 " /> <id nullFlavor="NA" /> <code codeSystem="local" code="MB " displayName="Microbiology" /> <statusCode code="completed" /> <effectiveTime value="252103695333" /> <value xsi:type="ST" value="< pre><b>VIRUS RESPIRATORY SCREEN - HUMAN METAPNEUMOVIRUS - VIRUS RESPIRATORY CULTURE</b> See BelowVIRUS RESPIRATORY SCREEN(F) Red Date/Time: 02/21/2014 06:27 Matty Date/Time: 02/24/2014 12:13SOURCE: NASOPHARYNGEALSPEC DESC: VIR RESPIRATORY POOL FANO RSV, INFLUENZA, PARAINFLUENZA OR [facility] [id number] [place], [place] [address]See BelowHUMAN METAPNEUMOVIRUS(F) Red Date/Time : 02/21/2014 06:27 Matty Date/Time: 02/24/2014 12: 13SOURCE: NASOPHARYNGEALSPEC DESC: HUMAN METAPNEUMOVIRUSNO HUMAN METAPNEUMOVIRUS ANTIGEN [facility] [id number] [place], [place] [address]See BelowVIRUS RESPIRATORY CULTURE(F) Red Date/Time : 02/21/2014 06:27 Matty Date/Time: 02/24/2014 12: 13SOURCE: NASOPHARYNGEALSPEC DESC: R-MIX NEGATIVE AT 48 HRSNO RSV, INFLUENZA , PARAINFLUENZA OR [facility]OVIRUS [facility] [phone] [place], [place] [id number]</pre>" /> <referenceRange> < observationRange> <text /> </observationRange> </referenceRange> </observation> </component> </organizer> </ entry> <entry> <organizer moodCode="EVN" classCode="BATTERY"> < templateId root="2.16.840.1.556409.10..22.4.1" /> <id nullFlavor="NA" /> <code codeSystem="local" code="BCLACT" displayName="BC REFLEX LACTIC ACID " /> <statusCode code="completed" /> <component> <observation moodCode="EVN" classCode="OBS"> <templateId root= "2.16.840.1.409059.10.20.22.4.2" /> <id nullFlavor="NA" /> < code codeSystem="local" code="LACT" displayName="LACTIC ACID" /> < statusCode code="completed" /> <effectiveTime value="290681701838" /> <value unit="mmol/L" xsi:type="PQ" value="1.8" /> < referenceRange> <observationRange> <text>0.5-2.2</text> </observationRange> </referenceRange> </observation > </component> </organizer> </entry> <entry> <organizer moodCode= "EVN" classCode="BATTERY"> <templateId root="2.16.840.1.731548.10.20.22.4.1 " /> <id nullFlavor="NA" /> <code codeSystem="local" code="BNP" displayName="B-TYPE NATRIURETIC PEPTIDE" /> <statusCode code="completed" / > <component> <observation moodCode="EVN" classCode="OBS"> <templateId root="2.16.840.1.478414.10.20.22.4.2" /> <id nullFlavor="NA " /> <code codeSystem="local" code="BNP" displayName="B-TYPE NATRIURETIC PEPTIDE" /> <statusCode code="completed" /> < effectiveTime value="774377649034" /> <value unit="pg/mL" xsi:type="PQ " value="88" /> <referenceRange> <observationRange> <text>< 100</text> </observationRange> </ referenceRange> </observation> </component> </organizer> </entry > <entry> <organizer moodCode="EVN" classCode="BATTERY"> <templateId root="07.12.840.1.854348.10..22.4.1" /> <id nullFlavor="NA" /> <code codeSystem="local" code="FETIBC" displayName="IRON W/ BINDING CAPACITY" /> <statusCode code="completed" /> <component> <observation moodCode= "EVN" classCode="OBS"> <templateId root="07.12.840.1.037301.03.15.22.4.2 " /> <id nullFlavor="NA" /> <code codeSystem="local" code= "FESAT" displayName="IRON SATURATION" /> <statusCode code="completed" / > <effectiveTime value="229232194793" /> <value unit="%SAT " xsi:type="PQ" value="4" /> <interpretationCode codeSystem="local" code="*" /> <referenceRange> <observationRange> <text>11-46</text> </observationRange> </referenceRange> </observation> </component> <component> <observation moodCode="EVN" classCode="OBS"> <templateId root= "07.12.840.1.617916.03.15.22.4.2" /> <id nullFlavor="NA" /> < code codeSystem="local" code="TIBC" displayName="IRON BINDING CAPACITY, TOTAL" / > <statusCode code="completed" /> <effectiveTime value= "359364886806" /> <value unit="mcg/dL" xsi:type="PQ" value="380" /> <referenceRange> <observationRange> <text>250-450 </text> </observationRange> </referenceRange> </ observation> </component> <component> <observation moodCode= "EVN" classCode="OBS"> <templateId root="07.12.840.1.321161.03.15.22.4.2 " /> <id nullFlavor="NA" /> <code codeSystem="local" code= "IRON" displayName="IRON" /> <statusCode code="completed" /> < effectiveTime value="729687838639" /> <value unit="mcg/dL" xsi:type="PQ " value="14" /> <interpretationCode codeSystem="local" code="*" /> <referenceRange> <observationRange> <text>35-150</ text> </observationRange> </referenceRange> </ observation> </component> </organizer> </entry> <entry> <organizer moodCode="EVN" classCode="BATTERY"> <templateId root= "2.16.840.1.644265.10..22.4.1" /> <id nullFlavor="NA" /> <code codeSystem="local" code="LEANNE" displayName="FERRITIN" /> <statusCode code= "completed" /> <component> <observation moodCode="EVN" classCode= "OBS"> <templateId root="216.840.1.491797.10..22.4.2" /> < id nullFlavor="NA" /> <code codeSystem="local" code="LEANNE" displayName= "FERRITIN" /> <statusCode code="completed" /> <effectiveTime value="959192282905" /> <value unit="ng/mL" xsi:type="PQ" value="3" /> <interpretationCode codeSystem="local" code="*" /> < referenceRange> <observationRange> <text>8-252</text> </observationRange> </referenceRange> </observation> </component> </organizer> </entry> <entry> <organizer moodCode="EVN " classCode="BATTERY"> <templateId root="216.840.1.212238.03.15.22.4.1" / > <id nullFlavor="NA" /> <code codeSystem="local" code="BC" displayName="BLOOD CULTURE" /> <statusCode code="completed" /> < component> <observation moodCode="EVN" classCode="OBS"> < templateId root="07.12.840.1.274743.03.15.22.4.2" /> <id nullFlavor="NA " /> <code codeSystem="local" code="MB" displayName="Microbiology" /> <statusCode code="completed" /> <effectiveTime value= "487989566752" /> <value xsi:type="ST" value="<pre><b>BLOOD CULTURE</b > See BelowCurrent Hospital Stay: Is this the first BLOOD CULTURE? YBLOOD CULTURE(F) Red Date/Time: 02/21/2014 06:47 Matty Date/Time: 02/26/2014 17:25SOURCE: BLOODSPEC DESC: [id number] [id number] [place] [address]</ pre>" /> <referenceRange> <observationRange> < text /> </observationRange> </referenceRange> </ observation> </component> </organizer> </entry> <entry> <organizer moodCode="EVN" classCode="BATTERY"> <templateId root= "840.1.017368.03.15.22.4.1" /> <id nullFlavor="NA" /> <code codeSystem="local" code="BC" displayName="BLOOD CULTURE" /> <statusCode code="completed" /> <component> <observation moodCode="EVN" classCode="OBS"> <templateId root="07.12.840.1.565172.10..22.4.2" /> <id nullFlavor="NA" /> <code codeSystem="local" code="MB" displayName="Microbiology" /> <statusCode code="completed" /> <effectiveTime value="725826038687" /> <value xsi:type="ST" value="<pre ><b>BLOOD CULTURE</b> See BelowCurrent Hospital Stay: Is this the first BLOOD CULTURE? YBLOOD CULTURE(F) Red Date/Time: 02/21/2014 06:47 Matty Date/Time: 02/26/2014 17:25SOURCE: BLOODSPEC DESC: [id number] [facility] [id number] [place] [address]</pre>" /> <referenceRange> < observationRange> <text /> </observationRange> </referenceRange> </observation> </component> </organizer> </ entry> <entry> <organizer moodCode="EVN" classCode="BATTERY"> < templateId root="2.16.840.1.705544.10.20.22.4.1" /> <id nullFlavor="NA" /> <code codeSystem="local" code="GLUMON" displayName="GLUCOSE (POC)" /> <statusCode code="completed" /> <component> <observation moodCode= "EVN" classCode="OBS"> <templateId root="2.16.840.1.066966.10.20.22.4.2 " /> <id nullFlavor="NA" /> <code codeSystem="local" code= "GLUMON" displayName="GLUCOSE (POC)" /> <statusCode code="completed" / > <effectiveTime value="162727233185" /> <value unit="mg/dL" xsi:type="PQ" value="91" /> <referenceRange> < observationRange> <text>70-99</text> </observationRange > </referenceRange> </observation> </component> </ organizer> </entry> <entry> <organizer moodCode="EVN" classCode="BATTERY"> <templateId root="840.1.759241.03.15.22.4.1" /> <id nullFlavor= "NA" /> <code codeSystem="local" code="GLUMON" displayName="GLUCOSE (POC)" /> <statusCode code="completed" /> <component> <observation moodCode="EVN" classCode="OBS"> <templateId root= "840.1.554705.03.15.224.2" /> <id nullFlavor="NA" /> < code codeSystem="local" code="GLUMON" displayName="GLUCOSE (POC)" /> < statusCode code="completed" /> <effectiveTime value="241877631133" /> <value unit="mg/dL" xsi:type="PQ" value="101" /> < interpretationCode codeSystem="local" code="*" /> <referenceRange> <observationRange> <text>70-99</text> </ observationRange> </referenceRange> </observation> </ component> </organizer> </entry> <entry> <organizer moodCode="EVN" classCode="BATTERY"> <templateId root="840.1.226980.03.15.22.4.1" /> <id nullFlavor="NA" /> <code codeSystem="local" code="OCC" displayName ="FECAL OCCULT BLOOD" /> <statusCode code="completed" /> <component> <observation moodCode="EVN" classCode="OBS"> <templateId root= "840.1.527300.03.15.22.4.2" /> <id nullFlavor="NA" /> < code codeSystem="local" code="MB" displayName="Microbiology" /> < statusCode code="completed" /> <effectiveTime value="105166292198" /> <value xsi:type="ST" value="<pre><b>FECAL OCCULT BLOOD</b> See BelowFECAL OCCULT BLOOD(F) Red Date/Time: 02/21/2014 13:00 Matty Date/Time: 02/21/2014 13:44SOURCE: STOOLSPEC DESC: [facility] - [id number] [place] [address]< /pre>" /> <referenceRange> <observationRange> < text /> </observationRange> </referenceRange> </ observation> </component> </organizer> </entry> <entry> <organizer moodCode="EVN" classCode="BATTERY"> <templateId root= "2.16.840.1.372557.10.20.22.4.1" /> <id nullFlavor="NA" /> <code codeSystem="local" code="GLUMON" displayName="GLUCOSE (POC)" /> < statusCode code="completed" /> <component> <observation moodCode= "EVN" classCode="OBS"> <templateId root="2.16.840.1.863482.10.20.22.4.2 " /> <id nullFlavor="NA" /> <code codeSystem="local" code= "GLUMON" displayName="GLUCOSE (POC)" /> <statusCode code="completed" / > <effectiveTime value="303196764936" /> <value unit="mg/dL" xsi:type="PQ" value="116" /> <interpretationCode codeSystem="local" code="*" /> <referenceRange> <observationRange> <text>70-99</text> </observationRange> </referenceRange> </observation> </component> </organizer> </entry> <entry> < organizer moodCode="EVN" classCode="BATTERY"> <templateId root= "2.16.840.1.944619.10.20..4.1" /> <id nullFlavor="NA" /> <code codeSystem="local" code="GRAMSP" displayName="GRAM STAIN SPUTUM - SPUTUM CULTURE " /> <statusCode code="completed" /> <component> <observation moodCode="EVN" classCode="OBS"> <templateId root= "2.16.840.1.762959.10..4.2" /> <id nullFlavor="NA" /> < code codeSystem="local" code="MB" displayName="Microbiology" /> < statusCode code="completed" /> <effectiveTime value="093484594517" /> <value xsi:type="ST" value="<pre><b>GRAM STAIN SPUTUM - SPUTUM CULTURE< /b> See BelowGRAM STAIN SPUTUM(F) Red Date/Time: 02/21/2014 17:55 Matty Date/Time: 02/23/2014 10:32SOURCE: SPUTUMSPEC DESC: EXPECTORATEDGRAM STAINMODERATE NEUTROPHILSRARE MIXED BACTERIAL [facility] - [phone] [place], [place] [address]Akw BelowSPUTUM CULTURE(F) Red Date/Time: 02/21/2014 17:55 Matty Date/Time: 02/23/2014 10:32SOURCE: SPUTUMSPEC DESC: EXPECTORATEDCULTURE REPORTNORMAL [facility] [id number] [place] [address]</pre>" /> <referenceRange> < observationRange> <text /> </observationRange> </referenceRange> </observation> </component> </organizer> </ entry> <entry> <organizer moodCode="EVN" classCode="BATTERY"> < templateId root="2.16.840.1.253043.10...4.1" /> <id nullFlavor="NA" /> <code codeSystem="local" code="GLUMON" displayName="GLUCOSE (POC)" /> <statusCode code="completed" /> <component> <observation moodCode= "EVN" classCode="OBS"> <templateId root="[id number] " /> <id nullFlavor="NA" /> <code codeSystem="local" code= "GLUMON" displayName="GLUCOSE (POC)" /> <statusCode code="completed" / > <effectiveTime value="[id number]" /> <value unit="mg/dL" xsi:type="PQ" value="85" /> <referenceRange> < observationRange> <text>70-99</text> </observationRange > </referenceRange> </observation> </component> </ organizer> </entry> <entry> <organizer moodCode="EVN" classCode="BATTERY"> <templateId root="[id number]" /> <id nullFlavor= "NA" /> <code codeSystem="local" code="GLUMON" displayName="GLUCOSE (POC)" /> <statusCode code="completed" /> <component> <observation moodCode="EVN" classCode="OBS"> <templateId root= "216.840.1.701413.10.20.22.4.2" /> <id nullFlavor="NA" /> < code codeSystem="local" code="GLUMON" displayName="GLUCOSE (POC)" /> < statusCode code="completed" /> <effectiveTime value="382188639873" /> <value unit="mg/dL" xsi:type="PQ" value="96" /> < referenceRange> <observationRange> <text>70-99</text> </observationRange> </referenceRange> </observation> </component> </organizer> </entry> <entry> <organizer moodCode="EVN " classCode="BATTERY"> <templateId root="07.12.840.1.277481.10..22.4.1" / > <id nullFlavor="NA" /> <code codeSystem="local" code="CBCD" displayName="CBC W/DIFF" /> <statusCode code="completed" /> <component > <observation moodCode="EVN" classCode="OBS"> <templateId root= "840.1.063792.03.15.22.4.2" /> <id nullFlavor="NA" /> < code codeSystem="local" code="EO#" displayName="EOSINOPHIL #" /> < statusCode code="completed" /> <effectiveTime value="833108574487" /> <value unit="k/cumm" xsi:type="PQ" value="0.2" /> < referenceRange> <observationRange> <text>0.1-0.5</text> </observationRange> </referenceRange> </observation > </component> <component> <observation moodCode="EVN" classCode="OBS"> <templateId root="840.1.659655.03.15.22.4.2" /> <id nullFlavor="NA" /> <code codeSystem="local" code="EO% " displayName="EOSINOPHIL %" /> <statusCode code="completed" /> <effectiveTime value="431293335786" /> <value unit="%" xsi: type="PQ" value="2" /> <referenceRange> <observationRange> <text>2-4</text> </observationRange> </ referenceRange> </observation> </component> <component> <observation moodCode="EVN" classCode="OBS"> <templateId root= "07.12.840.1.832010...4.2" /> <id nullFlavor="NA" /> < code codeSystem="local" code="GR#" displayName="GRANULOCYTE #" /> < statusCode code="completed" /> <effectiveTime value="335870848194" /> <value unit="k/cumm" xsi:type="PQ" value="4.6" /> < referenceRange> <observationRange> <text>2.0-9.0</text> </observationRange> </referenceRange> </observation > </component> <component> <observation moodCode="EVN" classCode="OBS"> <templateId root="216.840.1.701645.10.20.22.4.2" /> <id nullFlavor="NA" /> <code codeSystem="local" code="GR% " displayName="GRANULOCYTE %" /> <statusCode code="completed" /> <effectiveTime value="897653273156" /> <value unit="%" xsi: type="PQ" value="62" /> <referenceRange> <observationRange> <text>50-75</text> </observationRange> </ referenceRange> </observation> </component> <component> <observation moodCode="EVN" classCode="OBS"> <templateId root= "216.840.1.972665.10.20.22.4.2" /> <id nullFlavor="NA" /> < code codeSystem="local" code="LY#" displayName="LYMPHOCYTE #" /> < statusCode code="completed" /> <effectiveTime value="966805180842" /> <value unit="k/cumm" xsi:type="PQ" value="1.9" /> < referenceRange> <observationRange> <text>1.0-4.0</text> </observationRange> </referenceRange> </observation > </component> <component> <observation moodCode="EVN" classCode="OBS"> <templateId root="16.840.1.836858.10.20.22.4.2" /> <id nullFlavor="NA" /> <code codeSystem="local" code="LY% " displayName="LYMPHOCYTE %" /> <statusCode code="completed" /> <effectiveTime value="968588231180" /> <value unit="%" xsi: type="PQ" value="25" /> <referenceRange> <observationRange> <text>20-30</text> </observationRange> </ referenceRange> </observation> </component> <component> <observation moodCode="EVN" classCode="OBS"> <templateId root= "07.12.840.1.598246.10.2022.4.2" /> <id nullFlavor="NA" /> < code codeSystem="local" code="MCH" displayName="MEAN CELL HGB" /> < statusCode code="completed" /> <effectiveTime value="560708807018" /> <value unit="pg" xsi:type="PQ" value="20.6" /> < interpretationCode codeSystem="local" code="*" /> <referenceRange> <observationRange> <text>27.0-33.0</text> </ observationRange> </referenceRange> </observation> </ component> <component> <observation moodCode="EVN" classCode="OBS"> <templateId root="07.12.840.1.219113.10.20.22.4.2" /> <id nullFlavor="NA" /> <code codeSystem="local" code="MCHC" displayName= "MEAN CELL HGB CONCENTRATION" /> <statusCode code="completed" /> <effectiveTime value="290387710207" /> <value unit="g/dL" xsi:type= "PQ" value="28.4" /> <interpretationCode codeSystem="local" code="*" / > <referenceRange> <observationRange> <text> 32.0-37.0</text> </observationRange> </referenceRange> </observation> </component> <component> <observation moodCode="EVN" classCode="OBS"> <templateId root= "16.840.1.629124.10..4.2" /> <id nullFlavor="NA" /> < code codeSystem="local" code="MCV" displayName="MEAN CELL VOLUME" /> < statusCode code="completed" /> <effectiveTime value="812897829759" /> <value unit="fl" xsi:type="PQ" value="72.4" /> < interpretationCode codeSystem="local" code="*" /> <referenceRange> <observationRange> <text>80.0-100.0</text> </ observationRange> </referenceRange> </observation> </ component> <component> <observation moodCode="EVN" classCode="OBS"> <templateId root="840.1.319049.03.15.224.2" /> <id nullFlavor="NA" /> <code codeSystem="local" code="MO#" displayName= "MONOCYTE #" /> <statusCode code="completed" /> < effectiveTime value="125261399193" /> <value unit="k/cumm" xsi:type="PQ " value="0.8" /> <referenceRange> <observationRange> <text>0.1-1.0</text> </observationRange> </ referenceRange> </observation> </component> <component> <observation moodCode="EVN" classCode="OBS"> <templateId root= "16.840.1.453276.03.15.22.4.2" /> <id nullFlavor="NA" /> < code codeSystem="local" code="MO%" displayName="MONOCYTE %" /> <statusCode code="completed" /> <effectiveTime value="" /> <value unit="%" xsi:type="PQ" value="10" /> < interpretationCode codeSystem="local" code="*" /> <referenceRange> <observationRange> <text>4-6</text> </ observationRange> </referenceRange> </observation> </ component> <component> <observation moodCode="EVN" classCode="OBS"> <templateId root="216.840.1.646584.03.15.22.4.2" /> <id nullFlavor="NA" /> <code codeSystem="local" code="OVAL" displayName= "OVALOCYTES" /> <statusCode code="completed" /> < effectiveTime value="" /> <value unit="" xsi:type="PQ" value="NOTED" /> <referenceRange> <observationRange> <text /> </observationRange> </referenceRange> </observation> </component> <component> <observation moodCode ="EVN" classCode="OBS"> <templateId root= "216.840.1.847402.03.15.22.4.2" /> <id nullFlavor="NA" /> < code codeSystem="local" code="POLC" displayName="POLYCHROMASIA" /> < statusCode code="completed" /> <effectiveTime value="" /> <value unit="" xsi:type="PQ" value="NOTED" /> <referenceRange > <observationRange> <text /> </ observationRange> </referenceRange> </observation> </ component> <component> <observation moodCode="EVN" classCode="OBS"> <templateId root="16.840.1.686448.10..22.4.2" /> <id nullFlavor="NA" /> <code codeSystem="local" code="RBC" displayName=" RED BLOOD CELL" /> <statusCode code="completed" /> < effectiveTime value="664839365610" /> <value unit="m/cumm" xsi:type="PQ " value="3.55" /> <interpretationCode codeSystem="local" code="*" /> <referenceRange> <observationRange> <text>4.00- 6.00</text> </observationRange> </referenceRange> </ observation> </component> <component> <observation moodCode= "EVN" classCode="OBS"> <templateId root="07.12.840.1.343335.10..4.2 " /> <id nullFlavor="NA" /> <code codeSystem="local" code="RDW " displayName="RED CELL DISTRIBUTION WIDTH" /> <statusCode code= "completed" /> <effectiveTime value="626898195626" /> <value unit="%" xsi:type="PQ" value="19.1" /> <interpretationCode codeSystem="local" code="*" /> <referenceRange> < observationRange> <text>11.0-15.6</text> </ observationRange> </referenceRange> </observation> </ component> <component> <observation moodCode="EVN" classCode="OBS"> <templateId root="07.12.840.1.828660.10..22.4.2" /> <id nullFlavor="NA" /> <code codeSystem="local" code="WBC" displayName= "WHITE BLOOD CELL" /> <statusCode code="completed" /> < effectiveTime value="615350281294" /> <value unit="k/cumm" xsi:type="PQ " value="7.5" /> <referenceRange> <observationRange> <text>5.0-10.0</text> </observationRange> </ referenceRange> </observation> </component> <component> <observation moodCode="EVN" classCode="OBS"> <templateId root= "216.840.1.591520.10..22.4.2" /> <id nullFlavor="NA" /> < code codeSystem="local" code="HGBT" displayName="HEMOGLOBIN" /> < statusCode code="completed" /> <effectiveTime value="776482887006" /> <value unit="gm/dL" xsi:type="PQ" value="7.3" /> < interpretationCode codeSystem="local" code="*" /> <referenceRange> <observationRange> <text>12.0-16.0</text> </ observationRange> </referenceRange> </observation> </ component> <component> <observation moodCode="EVN" classCode="OBS"> <templateId root="07.12.840.1.735434.03.15.22.4.2" /> <id nullFlavor="NA" /> <code codeSystem="local" code="HCTT" displayName= "HEMATOCRIT" /> <statusCode code="completed" /> < effectiveTime value="811434610972" /> <value unit="%" xsi:type="PQ " value="25.7" /> <interpretationCode codeSystem="local" code="*" /> <referenceRange> <observationRange> <text>37.0- 47.0</text> </observationRange> </referenceRange> </ observation> </component> <component> <observation moodCode= "EVN" classCode="OBS"> <templateId root="16.840.1.599561.22.4.2 " /> <id nullFlavor="NA" /> <code codeSystem="local" code="PLT " displayName="PLATELET COUNT" /> <statusCode code="completed" /> <effectiveTime value="524530932956" /> <value unit="k/cumm" xsi: type="PQ" value="196" /> <referenceRange> <observationRange > <text>150-400</text> </observationRange> </ referenceRange> </observation> </component> </organizer> </entry > <entry> <organizer moodCode="EVN" classCode="BATTERY"> <templateId root="216.840.1.971491.03.15.22.4.1" /> <id nullFlavor="NA" /> <code codeSystem="local" code="HBA1C" displayName="HEMOGLOBIN A1C" /> < statusCode code="completed" /> <component> <observation moodCode= "EVN" classCode="OBS"> <templateId root="216.840.1.509892.10...4.2 " /> <id nullFlavor="NA" /> <code codeSystem="local" code= "HBA1C" displayName="HEMOGLOBIN A1C" /> <statusCode code="completed" / > <effectiveTime value="149720683488" /> <value unit="%" xsi:type="PQ" value="5.8" /> <interpretationCode codeSystem="local" code="*" /> <referenceRange> <observationRange> <text>< 5.7</text> </observationRange> </referenceRange > </observation> </component> </organizer> </entry> <entry> <organizer moodCode="EVN" classCode="BATTERY"> <templateId root= "16.840.1.577240.03.15.22.4.1" /> <id nullFlavor="NA" /> <code codeSystem="local" code="METABC" displayName="METABOLIC PANEL, COMPREHN" /> <statusCode code="completed" /> <component> <observation moodCode= "EVN" classCode="OBS"> <templateId root="07.12.840.1.050664.10.4.2 " /> <id nullFlavor="NA" /> <code codeSystem="local" code="K" displayName="POTASSIUM" /> <statusCode code="completed" /> < effectiveTime value="858584625785" /> <value unit="mmol/L" xsi:type="PQ " value="4.1" /> <referenceRange> <observationRange> <text>3.5-5.3</text> </observationRange> </ referenceRange> </observation> </component> <component> <observation moodCode="EVN" classCode="OBS"> <templateId root= "840.1.601545.03.15.22.4.2" /> <id nullFlavor="NA" /> < code codeSystem="local" code="eGFR" displayName="EST GFR (MDRD)" /> < statusCode code="completed" /> <effectiveTime value="941419584463" /> <value unit="mL/min" xsi:type="PQ" value="> 60" /> < referenceRange> <observationRange> <text>> 59</text> </observationRange> </referenceRange> </observation > </component> <component> <observation moodCode="EVN" classCode="OBS"> <templateId root="07.12.840.1.359988.03.15.22.4.2" /> <id nullFlavor="NA" /> <code codeSystem="local" code="GAP" displayName="ANION GAP" /> <statusCode code="completed" /> < effectiveTime value="" /> <value unit="mmol/L" xsi:type="PQ " value="8" /> <referenceRange> <observationRange> <text>5-15</text> </observationRange> </referenceRange > </observation> </component> <component> <observation moodCode="EVN" classCode="OBS"> <templateId root= "16.840.1.672377.10..22.4.2" /> <id nullFlavor="NA" /> < code codeSystem="local" code="eCrCl" displayName="EST CrCl (CG)" /> < statusCode code="completed" /> <effectiveTime value="" /> <value unit="mL/min" xsi:type="PQ" value="> 60" /> < referenceRange> <observationRange> <text>> 59</text> </observationRange> </referenceRange> </observation > </component> <component> <observation moodCode="EVN" classCode="OBS"> <templateId root="07.12.840.1.495017.10...4.2" /> <id nullFlavor="NA" /> <code codeSystem="local" code="GLU" displayName="GLUCOSE" /> <statusCode code="completed" /> < effectiveTime value="" /> <value unit="mg/dL" xsi:type="PQ " value="84" /> <referenceRange> <observationRange> <text>70-99</text> </observationRange> </ referenceRange> </observation> </component> <component> <observation moodCode="EVN" classCode="OBS"> <templateId root= "07.12.840.1.336340.10...4.2" /> <id nullFlavor="NA" /> < code codeSystem="local" code="CA" displayName="CALCIUM" /> <statusCode code="completed" /> <effectiveTime value="" /> < value unit="mg/dL" xsi:type="PQ" value="8.1" /> <interpretationCode codeSystem="local" code="*" /> <referenceRange> < observationRange> <text>8.5-10.1</text> </ observationRange> </referenceRange> </observation> </ component> <component> <observation moodCode="EVN" classCode="OBS"> <templateId root="2.16.840.1.953143.03.15.22.4.2" /> <id nullFlavor="NA" /> <code codeSystem="local" code="BUN" displayName= "BLOOD UREA NITROGEN" /> <statusCode code="completed" /> < effectiveTime value="" /> <value unit="mg/dL" xsi:type="PQ " value="5" /> <interpretationCode codeSystem="local" code="*" /> <referenceRange> <observationRange> <text>7-20</ text> </observationRange> </referenceRange> </ observation> </component> <component> <observation moodCode= "EVN" classCode="OBS"> <templateId root="216.840.1.214289.03.15.22.4.2 " /> <id nullFlavor="NA" /> <code codeSystem="local" code= "CREAT" displayName="CREATININE" /> <statusCode code="completed" /> <effectiveTime value="" /> <value unit="mg/dL" xsi: type="PQ" value="0.7" /> <referenceRange> <observationRange > <text>0.6-1.0</text> </observationRange> </ referenceRange> </observation> </component> <component> <observation moodCode="EVN" classCode="OBS"> <templateId root= "216.840.1.169147.10.4.2" /> <id nullFlavor="NA" /> < code codeSystem="local" code="NA" displayName="SODIUM" /> <statusCode code="completed" /> <effectiveTime value="" /> < value unit="mmol/L" xsi:type="PQ" value="140" /> <referenceRange> <observationRange> <text>135-148</text> </ observationRange> </referenceRange> </observation> </ component> <component> <observation moodCode="EVN" classCode="OBS"> <templateId root="216.840.1.978592.03.15.22.4.2" /> <id nullFlavor="NA" /> <code codeSystem="local" code="CL" displayName= "CHLORIDE" /> <statusCode code="completed" /> <effectiveTime value="" /> <value unit="mmol/L" xsi:type="PQ" value="106" /> <referenceRange> <observationRange> <text>98 -110</text> </observationRange> </referenceRange> </ observation> </component> <component> <observation moodCode= "EVN" classCode="OBS"> <templateId root="216.840.1.584285.10.22.4.2 " /> <id nullFlavor="NA" /> <code codeSystem="local" code="AST " displayName="AST/SGOT" /> <statusCode code="completed" /> < effectiveTime value="" /> <value unit="Units/L" xsi:type= "PQ" value="20" /> <referenceRange> <observationRange> <text>10-37</text> </observationRange> </ referenceRange> </observation> </component> <component> <observation moodCode="EVN" classCode="OBS"> <templateId root= "216.840.1.198709.10.22.4.2" /> <id nullFlavor="NA" /> < code codeSystem="local" code="ALT" displayName="ALT/SGPT" /> < statusCode code="completed" /> <effectiveTime value="" /> <value unit="Units/L" xsi:type="PQ" value="23" /> < referenceRange> <observationRange> <text>< 66</text> </observationRange> </referenceRange> </observation > </component> <component> <observation moodCode="EVN" classCode="OBS"> <templateId root="07.12.840.1.941966.10..4.2" /> <id nullFlavor="NA" /> <code codeSystem="local" code="CO2" displayName="CARBON DIOXIDE" /> <statusCode code="completed" /> <effectiveTime value="" /> <value unit="mmol/L" xsi:type ="PQ" value="26" /> <referenceRange> <observationRange> <text>21-32</text> </observationRange> </ referenceRange> </observation> </component> <component> <observation moodCode="EVN" classCode="OBS"> <templateId root= "07.12.840.1.619192.10..4.2" /> <id nullFlavor="NA" /> < code codeSystem="local" code="TP" displayName="TOTAL PROTEIN" /> < statusCode code="completed" /> <effectiveTime value="" /> <value unit="gm/dL" xsi:type="PQ" value="6.1" /> < interpretationCode codeSystem="local" code="*" /> <referenceRange> <observationRange> <text>6.4-8.2</text> </ observationRange> </referenceRange> </observation> </ component> <component> <observation moodCode="EVN" classCode="OBS"> <templateId root="16.840.1.068926.10.20.22.4.2" /> <id nullFlavor="NA" /> <code codeSystem="local" code="ALB" displayName= "ALBUMIN" /> <statusCode code="completed" /> <effectiveTime value="" /> <value unit="gm/dL" xsi:type="PQ" value="2.9" / > <interpretationCode codeSystem="local" code="*" /> < referenceRange> <observationRange> <text>3.4-5.0</text> </observationRange> </referenceRange> </observation > </component> <component> <observation moodCode="EVN" classCode="OBS"> <templateId root="16.840.1.423293.10..22.4.2" /> <id nullFlavor="NA" /> <code codeSystem="local" code="BILTOT" displayName="BILI TOTAL" /> <statusCode code="completed" /> < effectiveTime value="917001681154" /> <value unit="mg/dL" xsi:type="PQ " value="0.3" /> <referenceRange> <observationRange> <text>0.0-1.0</text> </observationRange> </ referenceRange> </observation> </component> <component> <observation moodCode="EVN" classCode="OBS"> <templateId root= "216.840.1.443955.10..22.4.2" /> <id nullFlavor="NA" /> < code codeSystem="local" code="ALKP" displayName="ALKALINE PHOSPHATASE TOTAL" /> <statusCode code="completed" /> <effectiveTime value= "" /> <value unit="IU/L" xsi:type="PQ" value="89" /> <referenceRange> <observationRange> <text>45-117</ text> </observationRange> </referenceRange> </ observation> </component> </organizer> </entry> <entry> <organizer moodCode="EVN" classCode="BATTERY"> <templateId root= "216.840.1.540104.10...4.1" /> <id nullFlavor="NA" /> <code codeSystem="local" code="PHOS" displayName="PHOSPHORUS" /> <statusCode code ="completed" /> <component> <observation moodCode="EVN" classCode= "OBS"> <templateId root="216.840.1.760557.10...4.2" /> < id nullFlavor="NA" /> <code codeSystem="local" code="PHOS" displayName= "PHOSPHORUS" /> <statusCode code="completed" /> < effectiveTime value="636087086124" /> <value unit="mg/dL" xsi:type="PQ " value="3.5" /> <referenceRange> <observationRange> <text>2.5-4.9</text> </observationRange> </ referenceRange> </observation> </component> </organizer> </entry > <entry> <organizer moodCode="EVN" classCode="BATTERY"> <templateId root="16.840.1.623498.22.4.1" /> <id nullFlavor="NA" /> <code codeSystem="local" code="MAG" displayName="MAGNESIUM" /> <statusCode code= "completed" /> <component> <observation moodCode="EVN" classCode= "OBS"> <templateId root="16.840.1.869403.03.15.22.4.2" /> < id nullFlavor="NA" /> <code codeSystem="local" code="MAG" displayName= "MAGNESIUM" /> <statusCode code="completed" /> <effectiveTime value="573171183198" /> <value unit="mg/dL" xsi:type="PQ" value="1.6" / > <interpretationCode codeSystem="local" code="*" /> < referenceRange> <observationRange> <text>1.8-2.4</text> </observationRange> </referenceRange> </observation > </component> </organizer> </entry> <entry> <organizer moodCode= "EVN" classCode="BATTERY"> <templateId root="840.1.445185.03.15.22.4.1 " /> <id nullFlavor="NA" /> <code codeSystem="local" code="SPNAG" displayName="AG STREPTOCOCCUS PNEUMONIAE" /> <statusCode code="completed" / > <component> <observation moodCode="EVN" classCode="OBS"> <templateId root="07.12.840.1.496920.03.15.22.4.2" /> <id nullFlavor="NA " /> <code codeSystem="local" code="MB" displayName="Microbiology" /> <statusCode code="completed" /> <effectiveTime value= "766891919619" /> <value xsi:type="ST" value="<pre><b>AG STREPTOCOCCUS PNEUMONIAE</b> See BelowAG STREPTOCOCCUS PNEUMONIAE(F) Red Date/Time: 2013 07:30 Matty Date/Time: 02/22/2014 09:05SOURCE : URINESPEC DESC: RECEIPT OF A PNEUMOCOCCAL VACCINATION WITHIN 5 DAYS PRIOR TOURINE ANTIGEN TESTING MAY RESULT IN A FALSE POSITIVE TEST.STREPTOCOCCUS PNEUMONIAE (Abnormal)POSITIVE FOR STREPTOCOCCUS PNEUMONIAE (Abnormal)[facility] - [id number] [place] [address]</pre>" /> < referenceRange> <observationRange> <text /> < /observationRange> </referenceRange> </observation> </ component> </organizer> </entry> <entry> <organizer moodCode="EVN" classCode="BATTERY"> <templateId root="2.16.840.1.032917.10.20.22.4.1" /> <id nullFlavor="NA" /> <code codeSystem="local" code="GLUMON" displayName="GLUCOSE (POC)" /> <statusCode code="completed" /> < component> <observation moodCode="EVN" classCode="OBS"> < templateId root="2.16.840.1.626610.10.20.22.4.2" /> <id nullFlavor="NA " /> <code codeSystem="local" code="GLUMON" displayName="GLUCOSE (POC) " /> <statusCode code="completed" /> <effectiveTime value= "196913278279" /> <value unit="mg/dL" xsi:type="PQ" value="107" /> <interpretationCode codeSystem="local" code="*" /> < referenceRange> <observationRange> <text>70-99</text> </observationRange> </referenceRange> </observation> </component> </organizer> </entry> <entry> <organizer moodCode="EVN " classCode="BATTERY"> <templateId root="2.16.840.1.101202.10.20.22.4.1" / > <id nullFlavor="NA" /> <code codeSystem="local" code="GLUMON" displayName="GLUCOSE (POC)" /> <statusCode code="completed" /> < component> <observation moodCode="EVN" classCode="OBS"> < templateId root="16.840.1.864383.10..22.4.2" /> <id nullFlavor="NA " /> <code codeSystem="local" code="GLUMON" displayName="GLUCOSE (POC) " /> <statusCode code="completed" /> <effectiveTime value= "880228800049" /> <value unit="mg/dL" xsi:type="PQ" value="143" /> <interpretationCode codeSystem="local" code="*" /> < referenceRange> <observationRange> <text>70-99</text> </observationRange> </referenceRange> </observation> </component> </organizer> </entry> <entry> <organizer moodCode="EVN " classCode="BATTERY"> <templateId root="07.12.840.1.869148.10..4.1" / > <id nullFlavor="NA" /> <code codeSystem="local" code="GLUMON" displayName="GLUCOSE (POC)" /> <statusCode code="completed" /> < component> <observation moodCode="EVN" classCode="OBS"> < templateId root="07.12.840.1.305977.10..22.4.2" /> <id nullFlavor="NA " /> <code codeSystem="local" code="GLUMON" displayName="GLUCOSE (POC) " /> <statusCode code="completed" /> <effectiveTime value= "905146919135" /> <value unit="mg/dL" xsi:type="PQ" value="119" /> <interpretationCode codeSystem="local" code="*" /> < referenceRange> <observationRange> <text>70-99</text> </observationRange> </referenceRange> </observation> </component> </organizer> </entry> <entry> <organizer moodCode="EVN " classCode="BATTERY"> <templateId root="16.840.1.683623.03.15.22.4.1" / > <id nullFlavor="NA" /> <code codeSystem="local" code="METAB" displayName="METABOLIC PANEL, BASIC" /> <statusCode code="completed" /> <component> <observation moodCode="EVN" classCode="OBS"> < templateId root="07.12.840.1.114614.03.15.22.4.2" /> <id nullFlavor="NA " /> <code codeSystem="local" code="K" displayName="POTASSIUM" /> <statusCode code="completed" /> <effectiveTime value=" " /> <value unit="mmol/L" xsi:type="PQ" value="4.1" /> < referenceRange> <observationRange> <text>3.5-5.3</text> </observationRange> </referenceRange> </observation > </component> <component> <observation moodCode="EVN" classCode="OBS"> <templateId root="07.12.840.1.383518.03.15.22.4.2" /> <id nullFlavor="NA" /> <code codeSystem="local" code="eGFR" displayName="EST GFR (MDRD)" /> <statusCode code="completed" /> <effectiveTime value="852427653752" /> <value unit="mL/min" xsi:type ="PQ" value="> 60" /> <referenceRange> <observationRange > <text>> 59</text> </observationRange> </ referenceRange> </observation> </component> <component> <observation moodCode="EVN" classCode="OBS"> <templateId root= "216.840.1.044870.10...4.2" /> <id nullFlavor="NA" /> < code codeSystem="local" code="GAP" displayName="ANION GAP" /> < statusCode code="completed" /> <effectiveTime value="" /> <value unit="mmol/L" xsi:type="PQ" value="6" /> < referenceRange> <observationRange> <text>5-15</text> </observationRange> </referenceRange> </observation> </component> <component> <observation moodCode="EVN" classCode= "OBS"> <templateId root="216.840.1.321548.03.15.22.4.2" /> < id nullFlavor="NA" /> <code codeSystem="local" code="eCrCl" displayName ="EST CrCl (CG)" /> <statusCode code="completed" /> < effectiveTime value="" /> <value unit="mL/min" xsi:type="PQ " value="> 60" /> <referenceRange> <observationRange> <text>> 59</text> </observationRange> </ referenceRange> </observation> </component> <component> <observation moodCode="EVN" classCode="OBS"> <templateId root= "16.840.1.285935.10..22.4.2" /> <id nullFlavor="NA" /> < code codeSystem="local" code="GLU" displayName="GLUCOSE" /> < statusCode code="completed" /> <effectiveTime value="" /> <value unit="mg/dL" xsi:type="PQ" value="85" /> < referenceRange> <observationRange> <text>70-99</text> </observationRange> </referenceRange> </observation> </component> <component> <observation moodCode="EVN" classCode= "OBS"> <templateId root="16.840.1.660571.10.20.22.4.2" /> < id nullFlavor="NA" /> <code codeSystem="local" code="CA" displayName= "CALCIUM" /> <statusCode code="completed" /> <effectiveTime value="[id number]" /> <value unit="mg/dL" xsi:type="PQ" value="8.2" / > <interpretationCode codeSystem="local" code="*" /> < referenceRange> <observationRange> <text>8.5-10.1</text > </observationRange> </referenceRange> </observation > </component> <component> <observation moodCode="EVN" classCode="OBS"> <templateId root="840.1.923911.10..22.4.2" /> <id nullFlavor="NA" /> <code codeSystem="local" code="BUN" displayName="BLOOD UREA NITROGEN" /> <statusCode code="completed" /> <effectiveTime value="" /> <value unit="mg/dL" xsi: type="PQ" value="7" /> <referenceRange> <observationRange> <text>7-20</text> </observationRange> </ referenceRange> </observation> </component> <component> <observation moodCode="EVN" classCode="OBS"> <templateId root= "07.12.840.1.696926.10.20.22.4.2" /> <id nullFlavor="NA" /> < code codeSystem="local" code="CREAT" displayName="CREATININE" /> < statusCode code="completed" /> <effectiveTime value="" /> <value unit="mg/dL" xsi:type="PQ" value="0.6" /> < referenceRange> <observationRange> <text>0.6-1.0</text> </observationRange> </referenceRange> </observation > </component> <component> <observation moodCode="EVN" classCode="OBS"> <templateId root="216.840.1.721190.10.4.2" /> <id nullFlavor="NA" /> <code codeSystem="local" code="NA" displayName="SODIUM" /> <statusCode code="completed" /> < effectiveTime value="" /> <value unit="mmol/L" xsi:type="PQ " value="138" /> <referenceRange> <observationRange> <text>135-148</text> </observationRange> </ referenceRange> </observation> </component> <component> <observation moodCode="EVN" classCode="OBS"> <templateId root= "07.12.840.1.019127.03.15.22.4.2" /> <id nullFlavor="NA" /> < code codeSystem="local" code="CL" displayName="CHLORIDE" /> < statusCode code="completed" /> <effectiveTime value="" /> <value unit="mmol/L" xsi:type="PQ" value="102" /> < referenceRange> <observationRange> <text>98-110</text> </observationRange> </referenceRange> </observation> </component> <component> <observation moodCode="EVN" classCode ="OBS"> <templateId root="16.840.1.728497.10.22.4.2" /> < id nullFlavor="NA" /> <code codeSystem="local" code="CO2" displayName= "CARBON DIOXIDE" /> <statusCode code="completed" /> < effectiveTime value="[id number]" /> <value unit="mmol/L" xsi:type="PQ " value="30" /> <referenceRange> <observationRange> <text>21-32</text> </observationRange> </ referenceRange> </observation> </component> </organizer> </entry > <entry> <organizer moodCode="EVN" classCode="BATTERY"> <templateId root="16.840.1.498042.10.20.22.4.1" /> <id nullFlavor="NA" /> <code codeSystem="local" code="MAG" displayName="MAGNESIUM" /> <statusCode code= "completed" /> <component> <observation moodCode="EVN" classCode= "OBS"> <templateId root="07.12.840.1.111112.10..22.4.2" /> < id nullFlavor="NA" /> <code codeSystem="local" code="MAG" displayName= "MAGNESIUM" /> <statusCode code="completed" /> <effectiveTime value="609034381573" /> <value unit="mg/dL" xsi:type="PQ" value="1.7" / > <interpretationCode codeSystem="local" code="*" /> < referenceRange> <observationRange> <text>1.8-2.4</text> </observationRange> </referenceRange> </observation > </component> </organizer> </entry> <entry> <organizer moodCode= "EVN" classCode="BATTERY"> <templateId root="07.12.840.1.796050.10.20.22.4.1 " /> <id nullFlavor="NA" /> <code codeSystem="local" code="CBCD" displayName="CBC W/DIFF" /> <statusCode code="completed" /> <component > <observation moodCode="EVN" classCode="OBS"> <templateId root= "16.840.1.781107.03.15.22.4.2" /> <id nullFlavor="NA" /> < code codeSystem="local" code="EO#" displayName="EOSINOPHIL #" /> < statusCode code="completed" /> <effectiveTime value="" /> <value unit="k/cumm" xsi:type="PQ" value="0.2" /> < referenceRange> <observationRange> <text>0.1-0.5</text> </observationRange> </referenceRange> </observation > </component> <component> <observation moodCode="EVN" classCode="OBS"> <templateId root="07.12.840.1.115584.03.15.22.4.2" /> <id nullFlavor="NA" /> <code codeSystem="local" code="EO% " displayName="EOSINOPHIL %" /> <statusCode code="completed" /> <effectiveTime value="" /> <value unit="%" xsi: type="PQ" value="3" /> <referenceRange> <observationRange> <text>2-4</text> </observationRange> </ referenceRange> </observation> </component> <component> <observation moodCode="EVN" classCode="OBS"> <templateId root= "07.12.840.1.452383.03.15.22.4.2" /> <id nullFlavor="NA" /> < code codeSystem="local" code="GR#" displayName="GRANULOCYTE #" /> < statusCode code="completed" /> <effectiveTime value="471760238553" /> <value unit="k/cumm" xsi:type="PQ" value="4.1" /> < referenceRange> <observationRange> <text>2.0-9.0</text> </observationRange> </referenceRange> </observation > </component> <component> <observation moodCode="EVN" classCode="OBS"> <templateId root="16.840.1.382200.10...4.2" /> <id nullFlavor="NA" /> <code codeSystem="local" code="GR% " displayName="GRANULOCYTE %" /> <statusCode code="completed" /> <effectiveTime value="431434151507" /> <value unit="%" xsi: type="PQ" value="58" /> <referenceRange> <observationRange> <text>50-75</text> </observationRange> </ referenceRange> </observation> </component> <component> <observation moodCode="EVN" classCode="OBS"> <templateId root= "07.12.840.1.196463.03.15.22.4.2" /> <id nullFlavor="NA" /> < code codeSystem="local" code="LY#" displayName="LYMPHOCYTE #" /> < statusCode code="completed" /> <effectiveTime value="342964832689" /> <value unit="k/cumm" xsi:type="PQ" value="1.9" /> < referenceRange> <observationRange> <text>1.0-4.0</text> </observationRange> </referenceRange> </observation > </component> <component> <observation moodCode="EVN" classCode="OBS"> <templateId root="07.12.840.1.186156.10.20.22.4.2" /> <id nullFlavor="NA" /> <code codeSystem="local" code="LY% " displayName="LYMPHOCYTE %" /> <statusCode code="completed" /> <effectiveTime value="845570794611" /> <value unit="%" xsi: type="PQ" value="26" /> <referenceRange> <observationRange> <text>20-30</text> </observationRange> </ referenceRange> </observation> </component> <component> <observation moodCode="EVN" classCode="OBS"> <templateId root= "216.840.1.288381.10.20.22.4.2" /> <id nullFlavor="NA" /> < code codeSystem="local" code="MCH" displayName="MEAN CELL HGB" /> < statusCode code="completed" /> <effectiveTime value="835514634109" /> <value unit="pg" xsi:type="PQ" value="20.7" /> < interpretationCode codeSystem="local" code="*" /> <referenceRange> <observationRange> <text>27.0-33.0</text> </ observationRange> </referenceRange> </observation> </ component> <component> <observation moodCode="EVN" classCode="OBS"> <templateId root="216.840.1.946954.10.20.22.4.2" /> <id nullFlavor="NA" /> <code codeSystem="local" code="MCHC" displayName= "MEAN CELL HGB CONCENTRATION" /> <statusCode code="completed" /> <effectiveTime value="041707275825" /> <value unit="g/dL" xsi:type= "PQ" value="28.8" /> <interpretationCode codeSystem="local" code="*" / > <referenceRange> <observationRange> <text> 32.0-37.0</text> </observationRange> </referenceRange> </observation> </component> <component> <observation moodCode="EVN" classCode="OBS"> <templateId root= "16.840.1.138496.10.2022.4.2" /> <id nullFlavor="NA" /> < code codeSystem="local" code="MCV" displayName="MEAN CELL VOLUME" /> < statusCode code="completed" /> <effectiveTime value="" /> <value unit="fl" xsi:type="PQ" value="71.8" /> < interpretationCode codeSystem="local" code="*" /> <referenceRange> <observationRange> <text>80.0-100.0</text> </ observationRange> </referenceRange> </observation> </ component> <component> <observation moodCode="EVN" classCode="OBS"> <templateId root="840.1.143909.03.15.22.4.2" /> <id nullFlavor="NA" /> <code codeSystem="local" code="MO#" displayName= "MONOCYTE #" /> <statusCode code="completed" /> < effectiveTime value="" /> <value unit="k/cumm" xsi:type="PQ " value="0.9" /> <referenceRange> <observationRange> <text>0.1-1.0</text> </observationRange> </ referenceRange> </observation> </component> <component> <observation moodCode="EVN" classCode="OBS"> <templateId root= "07.12.840.1.235588.10.2022.4.2" /> <id nullFlavor="NA" /> < code codeSystem="local" code="MO%" displayName="MONOCYTE %" /> <statusCode code="completed" /> <effectiveTime value="" /> <value unit="%" xsi:type="PQ" value="12" /> < interpretationCode codeSystem="local" code="*" /> <referenceRange> <observationRange> <text>4-6</text> </ observationRange> </referenceRange> </observation> </ component> <component> <observation moodCode="EVN" classCode="OBS"> <templateId root="16.840.1.678491.03.15.22.4.2" /> <id nullFlavor="NA" /> <code codeSystem="local" code="OVAL" displayName= "OVALOCYTES" /> <statusCode code="completed" /> < effectiveTime value="" /> <value unit="" xsi:type="PQ" value="NOTED" /> <referenceRange> <observationRange> <text /> </observationRange> </referenceRange> </observation> </component> <component> <observation moodCode ="EVN" classCode="OBS"> <templateId root= "16.840.1.524035...4.2" /> <id nullFlavor="NA" /> < code codeSystem="local" code="RBC" displayName="RED BLOOD CELL" /> < statusCode code="completed" /> <effectiveTime value="" /> <value unit="m/cumm" xsi:type="PQ" value="3.62" /> < interpretationCode codeSystem="local" code="*" /> <referenceRange> <observationRange> <text>4.00-6.00</text> </ observationRange> </referenceRange> </observation> </ component> <component> <observation moodCode="EVN" classCode="OBS"> <templateId root="16.840.1.024040.03.15.224.2" /> <id nullFlavor="NA" /> <code codeSystem="local" code="RDW" displayName=" RED CELL DISTRIBUTION WIDTH" /> <statusCode code="completed" /> <effectiveTime value="" /> <value unit="%" xsi:type= "PQ" value="19.7" /> <interpretationCode codeSystem="local" code="*" / > <referenceRange> <observationRange> <text> 11.0-15.6</text> </observationRange> </referenceRange> </observation> </component> <component> <observation moodCode="EVN" classCode="OBS"> <templateId root= "216.840.1.069930.03.15.224.2" /> <id nullFlavor="NA" /> < code codeSystem="local" code="WBC" displayName="WHITE BLOOD CELL" /> < statusCode code="completed" /> <effectiveTime value="" /> <value unit="k/cumm" xsi:type="PQ" value="7.1" /> < referenceRange> <observationRange> <text>5.0-10.0</text > </observationRange> </referenceRange> </observation > </component> <component> <observation moodCode="EVN" classCode="OBS"> <templateId root="216.840.1.266903.03.15.224.2" /> <id nullFlavor="NA" /> <code codeSystem="local" code="HGBT" displayName="HEMOGLOBIN" /> <statusCode code="completed" /> < effectiveTime value="588173944973" /> <value unit="gm/dL" xsi:type="PQ " value="7.5" /> <interpretationCode codeSystem="local" code="*" /> <referenceRange> <observationRange> <text>12.0- 16.0</text> </observationRange> </referenceRange> </ observation> </component> <component> <observation moodCode= "EVN" classCode="OBS"> <templateId root="07.12.840.1.768147.10.20.22.4.2 " /> <id nullFlavor="NA" /> <code codeSystem="local" code= "HCTT" displayName="HEMATOCRIT" /> <statusCode code="completed" /> <effectiveTime value="587546575957" /> <value unit="%" xsi: type="PQ" value="26.0" /> <interpretationCode codeSystem="local" code= "*" /> <referenceRange> <observationRange> < text>37.0-47.0</text> </observationRange> </referenceRange> </observation> </component> <component> <observation moodCode="EVN" classCode="OBS"> <templateId root= "07.12.840.1.725862.10..4.2" /> <id nullFlavor="NA" /> < code codeSystem="local" code="PLT" displayName="PLATELET COUNT" /> < statusCode code="completed" /> <effectiveTime value="703107728338" /> <value unit="k/cumm" xsi:type="PQ" value="205" /> < referenceRange> <observationRange> <text>150-400</text> </observationRange> </referenceRange> </observation > </component> </organizer> </entry> <entry> <organizer moodCode= "EVN" classCode="BATTERY"> <templateId root="07.12.840.1.202373.10..22.4.1 " /> <id nullFlavor="NA" /> <code codeSystem="local" code="GLUMON" displayName="GLUCOSE (POC)" /> <statusCode code="completed" /> < component> <observation moodCode="EVN" classCode="OBS"> < templateId root="2.16.840.1.179907.10..22.4.2" /> <id nullFlavor="NA " /> <code codeSystem="local" code="GLUMON" displayName="GLUCOSE (POC) " /> <statusCode code="completed" /> <effectiveTime value= "994542520744" /> <value unit="mg/dL" xsi:type="PQ" value="85" /> <referenceRange> <observationRange> <text>70-99</ text> </observationRange> </referenceRange> </ observation> </component> </organizer> </entry> <entry> <organizer moodCode="EVN" classCode="BATTERY"> <templateId root= "2.16.840.1.480815.10..22.4.1" /> <id nullFlavor="NA" /> <code codeSystem="local" code="GLUMON" displayName="GLUCOSE (POC)" /> < statusCode code="completed" /> <component> <observation moodCode= "EVN" classCode="OBS"> <templateId root="2.16.840.1.819902.10.20.22.4.2 " /> <id nullFlavor="NA" /> <code codeSystem="local" code= "GLUMON" displayName="GLUCOSE (POC)" /> <statusCode code="completed" / > <effectiveTime value="944432889859" /> <value unit="mg/dL" xsi:type="PQ" value="136" /> <interpretationCode codeSystem="local" code="*" /> <referenceRange> <observationRange> <text>70-99</text> </observationRange> </referenceRange> </observation> </component> </organizer> </entry> <entry> < organizer moodCode="EVN" classCode="BATTERY"> <templateId root= "840.1.979727.10...4.1" /> <id nullFlavor="NA" /> <code codeSystem="local" code="GLUMON" displayName="GLUCOSE (POC)" /> < statusCode code="completed" /> <component> <observation moodCode= "EVN" classCode="OBS"> <templateId root="840.1.701220.03.15.22.4.2 " /> <id nullFlavor="NA" /> <code codeSystem="local" code= "GLUMON" displayName="GLUCOSE (POC)" /> <statusCode code="completed" / > <effectiveTime value="227265293996" /> <value unit="mg/dL" xsi:type="PQ" value="124" /> <interpretationCode codeSystem="local" code="*" /> <referenceRange> <observationRange> <text>70-99</text> </observationRange> </referenceRange> </observation> </component> </organizer> </entry> <entry> < organizer moodCode="EVN" classCode="BATTERY"> <templateId root= "840.1.774301.03.15.22.4.1" /> <id nullFlavor="NA" /> <code codeSystem="local" code="GLUMON" displayName="GLUCOSE (POC)" /> < statusCode code="completed" /> <component> <observation moodCode= "EVN" classCode="OBS"> <templateId root="840.1.679895.10...4.2 " /> <id nullFlavor="NA" /> <code codeSystem="local" code= "GLUMON" displayName="GLUCOSE (POC)" /> <statusCode code="completed" / > <effectiveTime value="158479018797" /> <value unit="mg/dL" xsi:type="PQ" value="93" /> <referenceRange> < observationRange> <text>70-99</text> </observationRange > </referenceRange> </observation> </component> </ organizer> </entry> <entry> <organizer moodCode="EVN" classCode="BATTERY"> <templateId root="216.840.1.407186.10..4.1" /> <id nullFlavor= "NA" /> <code codeSystem="local" code="CBCD" displayName="CBC W/DIFF" /> <statusCode code="completed" /> <component> <observation moodCode="EVN" classCode="OBS"> <templateId root= "216.840.1.135673.03.15.22.4.2" /> <id nullFlavor="NA" /> < code codeSystem="local" code="BA#" displayName="BASOPHIL #" /> < statusCode code="completed" /> <effectiveTime value="875835489668" /> <value unit="k/cumm" xsi:type="PQ" value="0.0" /> < referenceRange> <observationRange> <text>0.0-0.2</text> </observationRange> </referenceRange> </observation > </component> <component> <observation moodCode="EVN" classCode="OBS"> <templateId root="216.840.1.435533.10.4.2" /> <id nullFlavor="NA" /> <code codeSystem="local" code="BA% " displayName="BASOPHIL %" /> <statusCode code="completed" /> <effectiveTime value="533557657801" /> <value unit="%" xsi: type="PQ" value="1" /> <referenceRange> <observationRange> <text>0-1</text> </observationRange> </ referenceRange> </observation> </component> <component> <observation moodCode="EVN" classCode="OBS"> <templateId root= "07.12.840.1.855494.10.4.2" /> <id nullFlavor="NA" /> < code codeSystem="local" code="EO#" displayName="EOSINOPHIL #" /> < statusCode code="completed" /> <effectiveTime value="" /> <value unit="k/cumm" xsi:type="PQ" value="0.2" /> < referenceRange> <observationRange> <text>0.1-0.5</text> </observationRange> </referenceRange> </observation > </component> <component> <observation moodCode="EVN" classCode="OBS"> <templateId root="07.12.840.1.857443.03.15.22.4.2" /> <id nullFlavor="NA" /> <code codeSystem="local" code="EO% " displayName="EOSINOPHIL %" /> <statusCode code="completed" /> <effectiveTime value="" /> <value unit="%" xsi: type="PQ" value="5" /> <interpretationCode codeSystem="local" code="*" /> <referenceRange> <observationRange> <text>2- 4</text> </observationRange> </referenceRange> </ observation> </component> <component> <observation moodCode= "EVN" classCode="OBS"> <templateId root="07.12.840.1.937419.03.15.22.4.2 " /> <id nullFlavor="NA" /> <code codeSystem="local" code="GR# " displayName="GRANULOCYTE #" /> <statusCode code="completed" /> <effectiveTime value="524548471427" /> <value unit="k/cumm" xsi: type="PQ" value="1.7" /> <interpretationCode codeSystem="local" code="* " /> <referenceRange> <observationRange> <text> 2.0-9.0</text> </observationRange> </referenceRange> </observation> </component> <component> <observation moodCode= "EVN" classCode="OBS"> <templateId root="16.840.1.102183.03.15.22.4.2 " /> <id nullFlavor="NA" /> <code codeSystem="local" code="GR& #37;" displayName="GRANULOCYTE %" /> <statusCode code="completed" / > <effectiveTime value="" /> <value unit="%" xsi:type="PQ" value="39" /> <interpretationCode codeSystem="local" code ="*" /> <referenceRange> <observationRange> < text>50-75</text> </observationRange> </referenceRange> </observation> </component> <component> <observation moodCode="EVN" classCode="OBS"> <templateId root= "07.12.840.1.375493.10.4.2" /> <id nullFlavor="NA" /> < code codeSystem="local" code="LY#" displayName="LYMPHOCYTE #" /> < statusCode code="completed" /> <effectiveTime value="068575837113" /> <value unit="k/cumm" xsi:type="PQ" value="2.1" /> < referenceRange> <observationRange> <text>1.0-4.0</text> </observationRange> </referenceRange> </observation > </component> <component> <observation moodCode="EVN" classCode="OBS"> <templateId root="07.12.840.1.533591.10.22.4.2" /> <id nullFlavor="NA" /> <code codeSystem="local" code="LY% " displayName="LYMPHOCYTE %" /> <statusCode code="completed" /> <effectiveTime value="" /> <value unit="%" xsi: type="PQ" value="46" /> <interpretationCode codeSystem="local" code="* " /> <referenceRange> <observationRange> <text> 20-30</text> </observationRange> </referenceRange> </ observation> </component> <component> <observation moodCode= "EVN" classCode="OBS"> <templateId root="07.12.840.1.693181.1022.4.2 " /> <id nullFlavor="NA" /> <code codeSystem="local" code="MCH " displayName="MEAN CELL HGB" /> <statusCode code="completed" /> <effectiveTime value="525490141639" /> <value unit="pg" xsi:type= "PQ" value="20.9" /> <interpretationCode codeSystem="local" code="*" / > <referenceRange> <observationRange> <text> 27.0-33.0</text> </observationRange> </referenceRange> </observation> </component> <component> <observation moodCode="EVN" classCode="OBS"> <templateId root= "07.12.840.1.142407.10.2022.4.2" /> <id nullFlavor="NA" /> < code codeSystem="local" code="MCHC" displayName="MEAN CELL HGB CONCENTRATION" / > <statusCode code="completed" /> <effectiveTime value= "" /> <value unit="g/dL" xsi:type="PQ" value="28.5" /> <interpretationCode codeSystem="local" code="*" /> < referenceRange> <observationRange> <text>32.0-37.0</text > </observationRange> </referenceRange> </observation > </component> <component> <observation moodCode="EVN" classCode="OBS"> <templateId root="2.16.840.1.667897.10..22.4.2" /> <id nullFlavor="NA" /> <code codeSystem="local" code="MCV" displayName="MEAN CELL VOLUME" /> <statusCode code="completed" /> <effectiveTime value="" /> <value unit="fl" xsi:type= "PQ" value="73.1" /> <interpretationCode codeSystem="local" code="*" / > <referenceRange> <observationRange> <text> 80.0-100.0</text> </observationRange> </referenceRange> </observation> </component> <component> <observation moodCode="EVN" classCode="OBS"> <templateId root= "16.840.1.721815.10.20.22.4.2" /> <id nullFlavor="NA" /> < code codeSystem="local" code="MO#" displayName="MONOCYTE #" /> < statusCode code="completed" /> <effectiveTime value="" /> <value unit="k/cumm" xsi:type="PQ" value="0.4" /> < referenceRange> <observationRange> <text>0.1-1.0</text> </observationRange> </referenceRange> </observation > </component> <component> <observation moodCode="EVN" classCode="OBS"> <templateId root="216.840.1.890324.10..4.2" /> <id nullFlavor="NA" /> <code codeSystem="local" code="MO% " displayName="MONOCYTE %" /> <statusCode code="completed" /> <effectiveTime value="" /> <value unit="%" xsi: type="PQ" value="10" /> <interpretationCode codeSystem="local" code="* " /> <referenceRange> <observationRange> <text> 4-6</text> </observationRange> </referenceRange> </ observation> </component> <component> <observation moodCode= "EVN" classCode="OBS"> <templateId root="07.12.840.1.898572.03.15.224.2 " /> <id nullFlavor="NA" /> <code codeSystem="local" code= "OVAL" displayName="OVALOCYTES" /> <statusCode code="completed" /> <effectiveTime value="" /> <value unit="" xsi:type= "PQ" value="NOTED" /> <referenceRange> <observationRange> <text /> </observationRange> </referenceRange> </observation> </component> <component> <observation moodCode="EVN" classCode="OBS"> <templateId root= "16.840.1.053356.10.4.2" /> <id nullFlavor="NA" /> < code codeSystem="local" code="POLC" displayName="POLYCHROMASIA" /> < statusCode code="completed" /> <effectiveTime value="" /> <value unit="" xsi:type="PQ" value="NOTED" /> <referenceRange > <observationRange> <text /> </ observationRange> </referenceRange> </observation> </ component> <component> <observation moodCode="EVN" classCode="OBS"> <templateId root="07.12.840.1.576608.10.2022.4.2" /> <id nullFlavor="NA" /> <code codeSystem="local" code="RBC" displayName=" RED BLOOD CELL" /> <statusCode code="completed" /> < effectiveTime value="" /> <value unit="m/cumm" xsi:type="PQ " value="3.50" /> <interpretationCode codeSystem="local" code="*" /> <referenceRange> <observationRange> <text>4.00- 6.00</text> </observationRange> </referenceRange> </ observation> </component> <component> <observation moodCode= "EVN" classCode="OBS"> <templateId root="07.12.840.1.874445.1022.4.2 " /> <id nullFlavor="NA" /> <code codeSystem="local" code="RDW " displayName="RED CELL DISTRIBUTION WIDTH" /> <statusCode code= "completed" /> <effectiveTime value="" /> <value unit="%" xsi:type="PQ" value="20.0" /> <interpretationCode codeSystem="local" code="*" /> <referenceRange> < observationRange> <text>11.0-15.6</text> </ observationRange> </referenceRange> </observation> </ component> <component> <observation moodCode="EVN" classCode="OBS"> <templateId root="07.12.840.1.671564.10.20.22.4.2" /> <id nullFlavor="NA" /> <code codeSystem="local" code="WBC" displayName= "WHITE BLOOD CELL" /> <statusCode code="completed" /> < effectiveTime value="" /> <value unit="k/cumm" xsi:type="PQ " value="4.5" /> <interpretationCode codeSystem="local" code="*" /> <referenceRange> <observationRange> <text>5.0- 10.0</text> </observationRange> </referenceRange> </ observation> </component> <component> <observation moodCode= "EVN" classCode="OBS"> <templateId root="2.16.840.1.852365.10..22.4.2 " /> <id nullFlavor="NA" /> <code codeSystem="local" code= "HGBT" displayName="HEMOGLOBIN" /> <statusCode code="completed" /> <effectiveTime value="" /> <value unit="gm/dL" xsi: type="PQ" value="7.3" /> <interpretationCode codeSystem="local" code="* " /> <referenceRange> <observationRange> <text> 12.0-16.0</text> </observationRange> </referenceRange> </observation> </component> <component> <observation moodCode="EVN" classCode="OBS"> <templateId root= "2.16.840.1.408003.10.20.22.4.2" /> <id nullFlavor="NA" /> < code codeSystem="local" code="HCTT" displayName="HEMATOCRIT" /> < statusCode code="completed" /> <effectiveTime value="" /> <value unit="%" xsi:type="PQ" value="25.6" /> < interpretationCode codeSystem="local" code="*" /> <referenceRange> <observationRange> <text>37.0-47.0</text> </ observationRange> </referenceRange> </observation> </ component> <component> <observation moodCode="EVN" classCode="OBS"> <templateId root="16.840.1.718598.22.4.2" /> <id nullFlavor="NA" /> <code codeSystem="local" code="PLT" displayName= "PLATELET COUNT" /> <statusCode code="completed" /> < effectiveTime value="[id number]" /> <value unit="k/cumm" xsi:type="PQ " value="211" /> <referenceRange> <observationRange> <text>150-400</text> </observationRange> </ referenceRange> </observation> </component> </organizer> </entry > <entry> <organizer moodCode="EVN" classCode="BATTERY"> <templateId root="16.840.1.911931.10..22.4.1" /> <id nullFlavor="NA" /> <code codeSystem="local" code="METAB" displayName="METABOLIC PANEL, BASIC" /> < statusCode code="completed" /> <component> <observation moodCode= "EVN" classCode="OBS"> <templateId root="16.840.1.513473.10..22.4.2 " /> <id nullFlavor="NA" /> <code codeSystem="local" code="K" displayName="POTASSIUM" /> <statusCode code="completed" /> < effectiveTime value="[id number]" /> <value unit="mmol/L" xsi:type="PQ " value="3.9" /> <referenceRange> <observationRange> <text>3.5-5.3</text> </observationRange> </ referenceRange> </observation> </component> <component> <observation moodCode="EVN" classCode="OBS"> <templateId root= "07.12.840.1.126704.10..22.4.2" /> <id nullFlavor="NA" /> < code codeSystem="local" code="eGFR" displayName="EST GFR (MDRD)" /> < statusCode code="completed" /> <effectiveTime value="" /> <value unit="mL/min" xsi:type="PQ" value="> 60" /> < referenceRange> <observationRange> <text>> 59</text> </observationRange> </referenceRange> </observation > </component> <component> <observation moodCode="EVN" classCode="OBS"> <templateId root="07.12.840.1.604157....4.2" /> <id nullFlavor="NA" /> <code codeSystem="local" code="GAP" displayName="ANION GAP" /> <statusCode code="completed" /> < effectiveTime value="" /> <value unit="mmol/L" xsi:type="PQ " value="9" /> <referenceRange> <observationRange> <text>5-15</text> </observationRange> </referenceRange > </observation> </component> <component> <observation moodCode="EVN" classCode="OBS"> <templateId root= "07.12.840.1.020782.10..22.4.2" /> <id nullFlavor="NA" /> < code codeSystem="local" code="eCrCl" displayName="EST CrCl (CG)" /> < statusCode code="completed" /> <effectiveTime value="" /> <value unit="mL/min" xsi:type="PQ" value="> 60" /> < referenceRange> <observationRange> <text>> 59</text> </observationRange> </referenceRange> </observation > </component> <component> <observation moodCode="EVN" classCode="OBS"> <templateId root="216.840.1.153456.1022.4.2" /> <id nullFlavor="NA" /> <code codeSystem="local" code="GLU" displayName="GLUCOSE" /> <statusCode code="completed" /> < effectiveTime value="" /> <value unit="mg/dL" xsi:type="PQ " value="110" /> <interpretationCode codeSystem="local" code="*" /> <referenceRange> <observationRange> <text>70-99</ text> </observationRange> </referenceRange> </ observation> </component> <component> <observation moodCode= "EVN" classCode="OBS"> <templateId root="07.12.840.1.987320.03.15.22.4.2 " /> <id nullFlavor="NA" /> <code codeSystem="local" code="CA " displayName="CALCIUM" /> <statusCode code="completed" /> < effectiveTime value="" /> <value unit="mg/dL" xsi:type="PQ " value="8.6" /> <referenceRange> <observationRange> <text>8.5-10.1</text> </observationRange> </ referenceRange> </observation> </component> <component> <observation moodCode="EVN" classCode="OBS"> <templateId root= "07.12.840.1.673219.03.15.22.4.2" /> <id nullFlavor="NA" /> < code codeSystem="local" code="BUN" displayName="BLOOD UREA NITROGEN" /> <statusCode code="completed" /> <effectiveTime value="" / > <value unit="mg/dL" xsi:type="PQ" value="9" /> < referenceRange> <observationRange> <text>7-20</text> </observationRange> </referenceRange> </observation> </component> <component> <observation moodCode="EVN" classCode= "OBS"> <templateId root="216.840.1.263696.03.15.22.4.2" /> < id nullFlavor="NA" /> <code codeSystem="local" code="CREAT" displayName ="CREATININE" /> <statusCode code="completed" /> < effectiveTime value="" /> <value unit="mg/dL" xsi:type="PQ " value="0.8" /> <referenceRange> <observationRange> <text>0.6-1.0</text> </observationRange> </ referenceRange> </observation> </component> <component> <observation moodCode="EVN" classCode="OBS"> <templateId root= "16.840.1.112415.03.15.22.4.2" /> <id nullFlavor="NA" /> < code codeSystem="local" code="NA" displayName="SODIUM" /> <statusCode code="completed" /> <effectiveTime value="" /> < value unit="mmol/L" xsi:type="PQ" value="138" /> <referenceRange> <observationRange> <text>135-148</text> </ observationRange> </referenceRange> </observation> </ component> <component> <observation moodCode="EVN" classCode="OBS"> <templateId root="16.840.1.296945..22.4.2" /> <id nullFlavor="NA" /> <code codeSystem="local" code="CL" displayName= "CHLORIDE" /> <statusCode code="completed" /> <effectiveTime value="" /> <value unit="mmol/L" xsi:type="PQ" value="101" /> <referenceRange> <observationRange> <text>98 -110</text> </observationRange> </referenceRange> </ observation> </component> <component> <observation moodCode= "EVN" classCode="OBS"> <templateId root="16.840.1.520900.10..4.2 " /> <id nullFlavor="NA" /> <code codeSystem="local" code="CO2 " displayName="CARBON DIOXIDE" /> <statusCode code="completed" /> <effectiveTime value="" /> <value unit="mmol/L" xsi: type="PQ" value="28" /> <referenceRange> <observationRange> <text>21-32</text> </observationRange> </ referenceRange> </observation> </component> </organizer> </entry > <entry> <organizer moodCode="EVN" classCode="BATTERY"> <templateId root="16.840.1.746699.10...4.1" /> <id nullFlavor="NA" /> <code codeSystem="local" code="GLUMON" displayName="GLUCOSE (POC)" /> < statusCode code="completed" /> <component> <observation moodCode= "EVN" classCode="OBS"> <templateId root="16.840.1.311136.10...4.2 " /> <id nullFlavor="NA" /> <code codeSystem="local" code= "GLUMON" displayName="GLUCOSE (POC)" /> <statusCode code="completed" / > <effectiveTime value="110171042278" /> <value unit="mg/dL" xsi:type="PQ" value="84" /> <referenceRange> < observationRange> <text>70-99</text> </observationRange > </referenceRange> </observation> </component> </ organizer> </entry> <entry> <organizer moodCode="EVN" classCode="BATTERY"> <templateId root="07.12.840.1.701165.10..22.4.1" /> <id nullFlavor= "NA" /> <code codeSystem="local" code="GLUMON" displayName="GLUCOSE (POC)" /> <statusCode code="completed" /> <component> <observation moodCode="EVN" classCode="OBS"> <templateId root= "07.12.840.1.419230.10..22.4.2" /> <id nullFlavor="NA" /> < code codeSystem="local" code="GLUMON" displayName="GLUCOSE (POC)" /> < statusCode code="completed" /> <effectiveTime value="[id number]" /> <value unit="mg/dL" xsi:type="PQ" value="136" /> < interpretationCode codeSystem="local" code="*" /> <referenceRange> <observationRange> <text>70-99</text> </ observationRange> </referenceRange> </observation> </ component> </organizer> </entry> <entry> <organizer moodCode="EVN" classCode="BATTERY"> <templateId root="07.12.840.1.864769.10..22.4.1" /> <id nullFlavor="NA" /> <code codeSystem="local" code="GLUMON" displayName="GLUCOSE (POC)" /> <statusCode code="completed" /> < component> <observation moodCode="EVN" classCode="OBS"> < templateId root="07.12.840.1.428673.10.20.22.4.2" /> <id nullFlavor="NA " /> <code codeSystem="local" code="GLUMON" displayName="GLUCOSE (POC) " /> <statusCode code="completed" /> <effectiveTime value= "" /> <value unit="mg/dL" xsi:type="PQ" value="111" /> <interpretationCode codeSystem="local" code="*" /> < referenceRange> <observationRange> <text>70-99</text> </observationRange> </referenceRange> </observation> </component> </organizer> </entry> <entry> <organizer moodCode="EVN " classCode="BATTERY"> <templateId root="2.16.840.1.616639.10.20.22.4.1" / > <id nullFlavor="NA" /> <code codeSystem="local" code="GLUMON" displayName="GLUCOSE (POC)" /> <statusCode code="completed" /> < component> <observation moodCode="EVN" classCode="OBS"> < templateId root="2.16.840.1.125656.10.20.22.4.2" /> <id nullFlavor="NA " /> <code codeSystem="local" code="GLUMON" displayName="GLUCOSE (POC) " /> <statusCode code="completed" /> <effectiveTime value= "" /> <value unit="mg/dL" xsi:type="PQ" value="102" /> <interpretationCode codeSystem="local" code="*" /> < referenceRange> <observationRange> <text>70-99</text> </observationRange> </referenceRange> </observation> </component> </organizer> </entry> <entry> <organizer moodCode="EVN " classCode="BATTERY"> <templateId root="07.12.840.1.336799.10..4.1" / > <id nullFlavor="NA" /> <code codeSystem="local" code="CBCD" displayName="CBC W/DIFF" /> <statusCode code="completed" /> <component > <observation moodCode="EVN" classCode="OBS"> <templateId root= "840.1.572584.03.15.224.2" /> <id nullFlavor="NA" /> < code codeSystem="local" code="BA#" displayName="BASOPHIL #" /> < statusCode code="completed" /> <effectiveTime value="" /> <value unit="k/cumm" xsi:type="PQ" value="0.0" /> < referenceRange> <observationRange> <text>0.0-0.2</text> </observationRange> </referenceRange> </observation > </component> <component> <observation moodCode="EVN" classCode="OBS"> <templateId root="840.1.774166.03.15.224.2" /> <id nullFlavor="NA" /> <code codeSystem="local" code="BA% " displayName="BASOPHIL %" /> <statusCode code="completed" /> <effectiveTime value="" /> <value unit="%" xsi: type="PQ" value="1" /> <referenceRange> <observationRange> <text>0-1</text> </observationRange> </ referenceRange> </observation> </component> <component> <observation moodCode="EVN" classCode="OBS"> <templateId root= "07.12.840.1.664997.03.15.22.4.2" /> <id nullFlavor="NA" /> < code codeSystem="local" code="EO#" displayName="EOSINOPHIL #" /> < statusCode code="completed" /> <effectiveTime value="" /> <value unit="k/cumm" xsi:type="PQ" value="0.2" /> < referenceRange> <observationRange> <text>0.1-0.5</text> </observationRange> </referenceRange> </observation > </component> <component> <observation moodCode="EVN" classCode="OBS"> <templateId root="2.16.840.1.402762...4.2" /> <id nullFlavor="NA" /> <code codeSystem="local" code="EO% " displayName="EOSINOPHIL %" /> <statusCode code="completed" /> <effectiveTime value="" /> <value unit="%" xsi: type="PQ" value="4" /> <referenceRange> <observationRange> <text>2-4</text> </observationRange> </ referenceRange> </observation> </component> <component> <observation moodCode="EVN" classCode="OBS"> <templateId root= "2.16.840.1.723432....4.2" /> <id nullFlavor="NA" /> < code codeSystem="local" code="GR#" displayName="GRANULOCYTE #" /> < statusCode code="completed" /> <effectiveTime value="" /> <value unit="k/cumm" xsi:type="PQ" value="1.9" /> < interpretationCode codeSystem="local" code="*" /> <referenceRange> <observationRange> <text>2.0-9.0</text> </ observationRange> </referenceRange> </observation> </ component> <component> <observation moodCode="EVN" classCode="OBS"> <templateId root="216.840.1.907458.10..4.2" /> <id nullFlavor="NA" /> <code codeSystem="local" code="GR%" displayName= "GRANULOCYTE %" /> <statusCode code="completed" /> < effectiveTime value="" /> <value unit="%" xsi:type="PQ " value="43" /> <interpretationCode codeSystem="local" code="*" /> <referenceRange> <observationRange> <text>50-75</ text> </observationRange> </referenceRange> </ observation> </component> <component> <observation moodCode= "EVN" classCode="OBS"> <templateId root="07.12.840.1.331550.03.15.224.2 " /> <id nullFlavor="NA" /> <code codeSystem="local" code="LY# " displayName="LYMPHOCYTE #" /> <statusCode code="completed" /> <effectiveTime value="" /> <value unit="k/cumm" xsi:type ="PQ" value="1.9" /> <referenceRange> <observationRange> <text>1.0-4.0</text> </observationRange> </ referenceRange> </observation> </component> <component> <observation moodCode="EVN" classCode="OBS"> <templateId root= "216.840.1.230886.22.4.2" /> <id nullFlavor="NA" /> < code codeSystem="local" code="LY%" displayName="LYMPHOCYTE %" /> <statusCode code="completed" /> <effectiveTime value="" /> <value unit="%" xsi:type="PQ" value="42" /> < interpretationCode codeSystem="local" code="*" /> <referenceRange> <observationRange> <text>20-30</text> </ observationRange> </referenceRange> </observation> </ component> <component> <observation moodCode="EVN" classCode="OBS"> <templateId root="216.840.1.221988.10..22.4.2" /> <id nullFlavor="NA" /> <code codeSystem="local" code="MCH" displayName= "MEAN CELL HGB" /> <statusCode code="completed" /> < effectiveTime value="" /> <value unit="pg" xsi:type="PQ" value="20.4" /> <interpretationCode codeSystem="local" code="*" /> <referenceRange> <observationRange> <text>27.0- 33.0</text> </observationRange> </referenceRange> </ observation> </component> <component> <observation moodCode= "EVN" classCode="OBS"> <templateId root="216.840.1.896660.10.20.22.4.2 " /> <id nullFlavor="NA" /> <code codeSystem="local" code= "MCHC" displayName="MEAN CELL HGB CONCENTRATION" /> <statusCode code= "completed" /> <effectiveTime value="" /> <value unit="g/dL" xsi:type="PQ" value="27.9" /> <interpretationCode codeSystem="local" code="*" /> <referenceRange> < observationRange> <text>32.0-37.0</text> </ observationRange> </referenceRange> </observation> </ component> <component> <observation moodCode="EVN" classCode="OBS"> <templateId root="216.840.1.462650.10..4.2" /> <id nullFlavor="NA" /> <code codeSystem="local" code="MCV" displayName= "MEAN CELL VOLUME" /> <statusCode code="completed" /> < effectiveTime value="" /> <value unit="fl" xsi:type="PQ" value="73.1" /> <interpretationCode codeSystem="local" code="*" /> <referenceRange> <observationRange> <text>80.0- 100.0</text> </observationRange> </referenceRange> </ observation> </component> <component> <observation moodCode= "EVN" classCode="OBS"> <templateId root="07.12.840.1.128649.03.15.22.4.2 " /> <id nullFlavor="NA" /> <code codeSystem="local" code="MO# " displayName="MONOCYTE #" /> <statusCode code="completed" /> <effectiveTime value="" /> <value unit="k/cumm" xsi:type= "PQ" value="0.5" /> <referenceRange> <observationRange> <text>0.1-1.0</text> </observationRange> </ referenceRange> </observation> </component> <component> <observation moodCode="EVN" classCode="OBS"> <templateId root= "216.840.1.179811.10..4.2" /> <id nullFlavor="NA" /> < code codeSystem="local" code="MO%" displayName="MONOCYTE %" /> <statusCode code="completed" /> <effectiveTime value="" /> <value unit="%" xsi:type="PQ" value="10" /> < interpretationCode codeSystem="local" code="*" /> <referenceRange> <observationRange> <text>4-6</text> </ observationRange> </referenceRange> </observation> </ component> <component> <observation moodCode="EVN" classCode="OBS"> <templateId root="07.12.840.1.772538.22.4.2" /> <id nullFlavor="NA" /> <code codeSystem="local" code="OVAL" displayName= "OVALOCYTES" /> <statusCode code="completed" /> < effectiveTime value="" /> <value unit="" xsi:type="PQ" value="NOTED" /> <referenceRange> <observationRange> <text /> </observationRange> </referenceRange> </observation> </component> <component> <observation moodCode ="EVN" classCode="OBS"> <templateId root= "07.12.840.1.286689.03.15.22.4.2" /> <id nullFlavor="NA" /> < code codeSystem="local" code="POLC" displayName="POLYCHROMASIA" /> < statusCode code="completed" /> <effectiveTime value="" /> <value unit="" xsi:type="PQ" value="NOTED" /> <referenceRange > <observationRange> <text /> </ observationRange> </referenceRange> </observation> </ component> <component> <observation moodCode="EVN" classCode="OBS"> <templateId root="07.12.840.1.573255.03.15.22.4.2" /> <id nullFlavor="NA" /> <code codeSystem="local" code="RBC" displayName=" RED BLOOD CELL" /> <statusCode code="completed" /> < effectiveTime value="" /> <value unit="m/cumm" xsi:type="PQ " value="3.72" /> <interpretationCode codeSystem="local" code="*" /> <referenceRange> <observationRange> <text>4.00- 6.00</text> </observationRange> </referenceRange> </ observation> </component> <component> <observation moodCode= "EVN" classCode="OBS"> <templateId root="216.840.1.577152.10...4.2 " /> <id nullFlavor="NA" /> <code codeSystem="local" code="RDW " displayName="RED CELL DISTRIBUTION WIDTH" /> <statusCode code= "completed" /> <effectiveTime value="" /> <value unit="%" xsi:type="PQ" value="19.8" /> <interpretationCode codeSystem="local" code="*" /> <referenceRange> < observationRange> <text>11.0-15.6</text> </ observationRange> </referenceRange> </observation> </ component> <component> <observation moodCode="EVN" classCode="OBS"> <templateId root="16.840.1.368527.10..22.4.2" /> <id nullFlavor="NA" /> <code codeSystem="local" code="WBC" displayName= "WHITE BLOOD CELL" /> <statusCode code="completed" /> < effectiveTime value="" /> <value unit="k/cumm" xsi:type="PQ " value="4.4" /> <interpretationCode codeSystem="local" code="*" /> <referenceRange> <observationRange> <text>5.0- 10.0</text> </observationRange> </referenceRange> </ observation> </component> <component> <observation moodCode= "EVN" classCode="OBS"> <templateId root="16.840.1.880028.1022.4.2 " /> <id nullFlavor="NA" /> <code codeSystem="local" code= "HGBT" displayName="HEMOGLOBIN" /> <statusCode code="completed" /> <effectiveTime value="" /> <value unit="gm/dL" xsi: type="PQ" value="7.6" /> <interpretationCode codeSystem="local" code="* " /> <referenceRange> <observationRange> <text> 12.0-16.0</text> </observationRange> </referenceRange> </observation> </component> <component> <observation moodCode="EVN" classCode="OBS"> <templateId root= "07.12.840.1.728047.03.15.22.4.2" /> <id nullFlavor="NA" /> < code codeSystem="local" code="HCTT" displayName="HEMATOCRIT" /> < statusCode code="completed" /> <effectiveTime value="" /> <value unit="%" xsi:type="PQ" value="27.2" /> < interpretationCode codeSystem="local" code="*" /> <referenceRange> <observationRange> <text>37.0-47.0</text> </ observationRange> </referenceRange> </observation> </ component> <component> <observation moodCode="EVN" classCode="OBS"> <templateId root="07.12.840.1.643326.22.4.2" /> <id nullFlavor="NA" /> <code codeSystem="local" code="PLT" displayName= "PLATELET COUNT" /> <statusCode code="completed" /> < effectiveTime value="[id number]" /> <value unit="k/cumm" xsi:type="PQ " value="240" /> <referenceRange> <observationRange> <text>150-400</text> </observationRange> </ referenceRange> </observation> </component> </organizer> </entry > <entry> <organizer moodCode="EVN" classCode="BATTERY"> <templateId root="216.840.1.912511.10..22.4.1" /> <id nullFlavor="NA" /> <code codeSystem="local" code="GLUMON" displayName="GLUCOSE (POC)" /> < statusCode code="completed" /> <component> <observation moodCode= "EVN" classCode="OBS"> <templateId root="216.840.1.032511.10..22.4.2 " /> <id nullFlavor="NA" /> <code codeSystem="local" code= "GLUMON" displayName="GLUCOSE (POC)" /> <statusCode code="completed" / > <effectiveTime value="933337974246" /> <value unit="mg/dL" xsi:type="PQ" value="95" /> <referenceRange> < observationRange> <text>70-99</text> </observationRange > </referenceRange> </observation> </component> </ organizer> </entry> <entry> <organizer moodCode="EVN" classCode="BATTERY"> <templateId root="2.16.840.1.725099.10..22.4.1" /> <id nullFlavor= "NA" /> <code codeSystem="local" code="GLUMON" displayName="GLUCOSE (POC)" /> <statusCode code="completed" /> <component> <observation moodCode="EVN" classCode="OBS"> <templateId root= "216.840.1.515317.10..22.4.2" /> <id nullFlavor="NA" /> < code codeSystem="local" code="GLUMON" displayName="GLUCOSE (POC)" /> < statusCode code="completed" /> <effectiveTime value="981354712682" /> <value unit="mg/dL" xsi:type="PQ" value="112" /> < interpretationCode codeSystem="local" code="*" /> <referenceRange> <observationRange> <text>70-99</text> </ observationRange> </referenceRange> </observation> </ component> </organizer> </entry> <entry> <organizer moodCode="EVN" classCode="BATTERY"> <templateId root="2.16.840.1.335545.10..22.4.1" /> <id nullFlavor="NA" /> <code codeSystem="local" code="UA" displayName= "URINALYSIS, ROUTINE" /> <statusCode code="completed" /> <component> <observation moodCode="EVN" classCode="OBS"> <templateId root= "2.16.840.1.306819.10.20.22.4.2" /> <id nullFlavor="NA" /> < code codeSystem="local" code="LEUESU" displayName="UA LEUKOCYTE ESTERASE DIPSTICK" /> <statusCode code="completed" /> <effectiveTime value="[id number]" /> <value unit="" xsi:type="PQ" value="TRACE" /> <interpretationCode codeSystem="local" code="*" /> < referenceRange> <observationRange> <text>NEGATIVE</text > </observationRange> </referenceRange> </observation > </component> <component> <observation moodCode="EVN" classCode="OBS"> <templateId root="216.840.1.407220.10..4.2" /> <id nullFlavor="NA" /> <code codeSystem="local" code="NITRIU" displayName="UA NITRITE DIPSTICK" /> <statusCode code="completed" /> <effectiveTime value="" /> <value unit="" xsi:type= "PQ" value="NEGATIVE" /> <referenceRange> <observationRange > <text>NEGATIVE</text> </observationRange> </ referenceRange> </observation> </component> <component> <observation moodCode="EVN" classCode="OBS"> <templateId root= "16.840.1.756651.03.15.22.4.2" /> <id nullFlavor="NA" /> < code codeSystem="local" code="PROTEIU" displayName="UA PROTEIN DIPSTICK" /> <statusCode code="completed" /> <effectiveTime value= "" /> <value unit="" xsi:type="PQ" value="NEGATIVE" /> <referenceRange> <observationRange> <text>NEGATIVE </text> </observationRange> </referenceRange> </ observation> </component> <component> <observation moodCode= "EVN" classCode="OBS"> <templateId root="07.12.840.1.794916.10.4.2 " /> <id nullFlavor="NA" /> <code codeSystem="local" code= "DGLUU" displayName="UA GLUCOSE DIPSTICK" /> <statusCode code= "completed" /> <effectiveTime value="" /> <value unit="" xsi:type="PQ" value="NEGATIVE" /> <referenceRange> < observationRange> <text>NEGATIVE</text> </ observationRange> </referenceRange> </observation> </ component> <component> <observation moodCode="EVN" classCode="OBS"> <templateId root="216.840.1.536196.10..4.2" /> <id nullFlavor="NA" /> <code codeSystem="local" code="KETONU" displayName= "UA KETONE DIPSTICK" /> <statusCode code="completed" /> < effectiveTime value="" /> <value unit="" xsi:type="PQ" value="NEGATIVE" /> <referenceRange> <observationRange> <text>NEGATIVE</text> </observationRange> </ referenceRange> </observation> </component> <component> <observation moodCode="EVN" classCode="OBS"> <templateId root= "216.840.1.040577...4.2" /> <id nullFlavor="NA" /> < code codeSystem="local" code="UROBILU" displayName="UA UROBILINOGEN DIPSTICK" / > <statusCode code="completed" /> <effectiveTime value= "" /> <value unit="" xsi:type="PQ" value="NORMAL" /> <referenceRange> <observationRange> <text>NORMAL</ text> </observationRange> </referenceRange> </ observation> </component> <component> <observation moodCode= "EVN" classCode="OBS"> <templateId root="16.840.1.564054.10..4.2 " /> <id nullFlavor="NA" /> <code codeSystem="local" code= "BILU" displayName="UA BILIRUBIN DIPSTICK" /> <statusCode code= "completed" /> <effectiveTime value="" /> <value unit="" xsi:type="PQ" value="NEGATIVE" /> <referenceRange> < observationRange> <text>NEGATIVE</text> </ observationRange> </referenceRange> </observation> </ component> <component> <observation moodCode="EVN" classCode="OBS"> <templateId root="07.12.840.1.573747.10..22.4.2" /> <id nullFlavor="NA" /> <code codeSystem="local" code="LON" displayName="UA BLOOD DIPSTICK" /> <statusCode code="completed" /> < effectiveTime value="" /> <value unit="" xsi:type="PQ" value="4+" /> <interpretationCode codeSystem="local" code="*" /> <referenceRange> <observationRange> <text>NEGATIVE</ text> </observationRange> </referenceRange> </ observation> </component> <component> <observation moodCode= "EVN" classCode="OBS"> <templateId root="07.12.840.1.235423.10..4.2 " /> <id nullFlavor="NA" /> <code codeSystem="local" code= "SPGRU" displayName="UA SPECIFIC GRAVITY" /> <statusCode code= "completed" /> <effectiveTime value="" /> <value unit="" xsi:type="PQ" value="1.011" /> <interpretationCode codeSystem= "local" code="*" /> <referenceRange> <observationRange> <text>1.015-1.025</text> </observationRange> </ referenceRange> </observation> </component> <component> <observation moodCode="EVN" classCode="OBS"> <templateId root= "07.12.840.1.984794.10...4.2" /> <id nullFlavor="NA" /> < code codeSystem="local" code="WILLOW" displayName="UR PH" /> <statusCode code="completed" /> <effectiveTime value="110922531869" /> < value unit="" xsi:type="PQ" value="7.0" /> <referenceRange> <observationRange> <text>5.0-7.0</text> </ observationRange> </referenceRange> </observation> </ component> </organizer> </entry> <entry> <organizer moodCode="EVN" classCode="BATTERY"> <templateId root="07.12.840.1.031477...4.1" /> <id nullFlavor="NA" /> <code codeSystem="local" code="UAMICRO" displayName="UA MICROSCOPIC" /> <statusCode code="completed" /> < component> <observation moodCode="EVN" classCode="OBS"> < templateId root="07.12.840.1.159274.03.15.22.4.2" /> <id nullFlavor="NA " /> <code codeSystem="local" code="EPIU" displayName="UA EPITHELIAL CELLS" /> <statusCode code="completed" /> <effectiveTime value ="[id number]" /> <value unit="epi/hpf" xsi:type="PQ" value="2+" /> <interpretationCode codeSystem="local" code="*" /> < referenceRange> <observationRange> <text>0 - 1+</text> </observationRange> </referenceRange> </observation> </component> <component> <observation moodCode="EVN" classCode ="OBS"> <templateId root="07.12.840.1.313073.03.15.22.4.2" /> < id nullFlavor="NA" /> <code codeSystem="local" code="MUCUSU" displayName="UA MUCUS" /> <statusCode code="completed" /> < effectiveTime value="" /> <value unit="" xsi:type="PQ" value="1+" /> <referenceRange> <observationRange> <text>NEG TO 1+</text> </observationRange> </ referenceRange> </observation> </component> <component> <observation moodCode="EVN" classCode="OBS"> <templateId root= "216.840.1.946840...4.2" /> <id nullFlavor="NA" /> < code codeSystem="local" code="RBCU" displayName="UA RBC" /> < statusCode code="completed" /> <effectiveTime value="" /> <value unit="rbc/hpf" xsi:type="PQ" value="PACKED FIELD" /> < interpretationCode codeSystem="local" code="*" /> <referenceRange> <observationRange> <text>0 - 3</text> </ observationRange> </referenceRange> </observation> </ component> <component> <observation moodCode="EVN" classCode="OBS"> <templateId root="16.840.1.379405.10.4.2" /> <id nullFlavor="NA" /> <code codeSystem="local" code="UAVOL" displayName= "UA VOLUME FOR EXAM" /> <statusCode code="completed" /> < effectiveTime value="" /> <value unit="mL" xsi:type="PQ" value="12.0" /> <referenceRange> <observationRange> <text>(12mL STD)</text> </observationRange> </ referenceRange> </observation> </component> <component> <observation moodCode="EVN" classCode="OBS"> <templateId root= "216.840.1.508259.03.15.22.4.2" /> <id nullFlavor="NA" /> < code codeSystem="local" code="WBCU" displayName="UA WBC" /> < statusCode code="completed" /> <effectiveTime value="170291074015" /> <value unit="wbc/hpf" xsi:type="PQ" value="0-1" /> < referenceRange> <observationRange> <text>0 - 5</text> </observationRange> </referenceRange> </observation> </component> </organizer> </entry> <entry> <organizer moodCode="EVN " classCode="BATTERY"> <templateId root="216.840.1.131139.03.15.22.4.1" / > <id nullFlavor="NA" /> <code codeSystem="local" code="GLUMON" displayName="GLUCOSE (POC)" /> <statusCode code="completed" /> < component> <observation moodCode="EVN" classCode="OBS"> < templateId root="216.840.1.834840...4.2" /> <id nullFlavor="NA " /> <code codeSystem="local" code="GLUMON" displayName="GLUCOSE (POC) " /> <statusCode code="completed" /> <effectiveTime value= "654264026305" /> <value unit="mg/dL" xsi:type="PQ" value="102" /> <interpretationCode codeSystem="local" code="*" /> < referenceRange> <observationRange> <text>70-99</text> </observationRange> </referenceRange> </observation> </component> </organizer> </entry> <entry> <organizer moodCode="EVN " classCode="BATTERY"> <templateId root="216.840.1.467363.03.15.22.4.1" / > <id nullFlavor="NA" /> <code codeSystem="local" code="GLUMON" displayName="GLUCOSE (POC)" /> <statusCode code="completed" /> < component> <observation moodCode="EVN" classCode="OBS"> < templateId root="07.12.840.1.669637.10..22.4.2" /> <id nullFlavor="NA " /> <code codeSystem="local" code="GLUMON" displayName="GLUCOSE (POC) " /> <statusCode code="completed" /> <effectiveTime value= "975179384834" /> <value unit="mg/dL" xsi:type="PQ" value="84" /> <referenceRange> <observationRange> <text>70-99</ text> </observationRange> </referenceRange> </ observation> </component> </organizer> </entry> <entry> <organizer moodCode="EVN" classCode="BATTERY"> <templateId root= "840.1.873447.10..22.4.1" /> <id nullFlavor="NA" /> <code codeSystem="local" code="GLUMON" displayName="GLUCOSE (POC)" /> < statusCode code="completed" /> <component> <observation moodCode= "EVN" classCode="OBS"> <templateId root="840.1.961508.10..22.4.2 " /> <id nullFlavor="NA" /> <code codeSystem="local" code= "GLUMON" displayName="GLUCOSE (POC)" /> <statusCode code="completed" / > <effectiveTime value="627967338532" /> <value unit="mg/dL" xsi:type="PQ" value="73" /> <referenceRange> < observationRange> <text>70-99</text> </observationRange > </referenceRange> </observation> </component> </ organizer> </entry> <entry> <organizer moodCode="EVN" classCode="BATTERY"> <templateId root="07.12.840.1.822495.03.15.22.4.1" /> <id nullFlavor= "NA" /> <code codeSystem="local" code="GLUMON" displayName="GLUCOSE (POC)" /> <statusCode code="completed" /> <component> <observation moodCode="EVN" classCode="OBS"> <templateId root= "840.1.576306.03.15.22.4.2" /> <id nullFlavor="NA" /> < code codeSystem="local" code="GLUMON" displayName="GLUCOSE (POC)" /> < statusCode code="completed" /> <effectiveTime value="084170609785" /> <value unit="mg/dL" xsi:type="PQ" value="353" /> < interpretationCode codeSystem="local" code="*" /> <referenceRange> <observationRange> <text>70-99</text> </ observationRange> </referenceRange> </observation> </ component> </organizer> </entry> <entry> <organizer moodCode="EVN" classCode="BATTERY"> <templateId root="840.1.079191.03.15.22.4.1" /> <id nullFlavor="NA" /> <code codeSystem="local" code="GLUMON" displayName="GLUCOSE (POC)" /> <statusCode code="completed" /> < component> <observation moodCode="EVN" classCode="OBS"> < templateId root="07.12.840.1.479824.1022.4.2" /> <id nullFlavor="NA " /> <code codeSystem="local" code="GLUMON" displayName="GLUCOSE (POC) " /> <statusCode code="completed" /> <effectiveTime value= "993569111048" /> <value unit="mg/dL" xsi:type="PQ" value="82" /> <referenceRange> <observationRange> <text>70-99</ text> </observationRange> </referenceRange> </ observation> </component> </organizer> </entry> <entry> <organizer moodCode="EVN" classCode="BATTERY"> <templateId root= "216.840.1.786904.10..22.4.1" /> <id nullFlavor="NA" /> <code codeSystem="local" code="UA" displayName="URINALYSIS, ROUTINE" /> < statusCode code="completed" /> <component> <observation moodCode= "EVN" classCode="OBS"> <templateId root="216.840.1.036148.10...4.2 " /> <id nullFlavor="NA" /> <code codeSystem="local" code= "LEUESU" displayName="UA LEUKOCYTE ESTERASE DIPSTICK" /> <statusCode code="completed" /> <effectiveTime value="773016235529" /> < value unit="" xsi:type="PQ" value="NEGATIVE" /> <referenceRange> <observationRange> <text>NEGATIVE</text> </ observationRange> </referenceRange> </observation> </ component> <component> <observation moodCode="EVN" classCode="OBS"> <templateId root="216.840.1.004373.10...4.2" /> <id nullFlavor="NA" /> <code codeSystem="local" code="NITRIU" displayName= "UA NITRITE DIPSTICK" /> <statusCode code="completed" /> < effectiveTime value="" /> <value unit="" xsi:type="PQ" value="NEGATIVE" /> <referenceRange> <observationRange> <text>NEGATIVE</text> </observationRange> </ referenceRange> </observation> </component> <component> <observation moodCode="EVN" classCode="OBS"> <templateId root= "07.12.840.1.120911.10.4.2" /> <id nullFlavor="NA" /> < code codeSystem="local" code="PROTEIU" displayName="UA PROTEIN DIPSTICK" /> <statusCode code="completed" /> <effectiveTime value= "" /> <value unit="" xsi:type="PQ" value="NEGATIVE" /> <referenceRange> <observationRange> <text>NEGATIVE </text> </observationRange> </referenceRange> </ observation> </component> <component> <observation moodCode= "EVN" classCode="OBS"> <templateId root="840.1.385702.03.15.22.4.2 " /> <id nullFlavor="NA" /> <code codeSystem="local" code= "DGLUU" displayName="UA GLUCOSE DIPSTICK" /> <statusCode code= "completed" /> <effectiveTime value="" /> <value unit="" xsi:type="PQ" value="NEGATIVE" /> <referenceRange> < observationRange> <text>NEGATIVE</text> </ observationRange> </referenceRange> </observation> </ component> <component> <observation moodCode="EVN" classCode="OBS"> <templateId root="840.1.118893.1022.4.2" /> <id nullFlavor="NA" /> <code codeSystem="local" code="KETONU" displayName= "UA KETONE DIPSTICK" /> <statusCode code="completed" /> < effectiveTime value="" /> <value unit="" xsi:type="PQ" value="NEGATIVE" /> <referenceRange> <observationRange> <text>NEGATIVE</text> </observationRange> </ referenceRange> </observation> </component> <component> <observation moodCode="EVN" classCode="OBS"> <templateId root= "16.840.1.061559.03.15.22.4.2" /> <id nullFlavor="NA" /> < code codeSystem="local" code="UROBILU" displayName="UA UROBILINOGEN DIPSTICK" / > <statusCode code="completed" /> <effectiveTime value= "" /> <value unit="" xsi:type="PQ" value="NORMAL" /> <referenceRange> <observationRange> <text>NORMAL</ text> </observationRange> </referenceRange> </ observation> </component> <component> <observation moodCode= "EVN" classCode="OBS"> <templateId root="07.12.840.1.995596.10.4.2 " /> <id nullFlavor="NA" /> <code codeSystem="local" code= "BILU" displayName="UA BILIRUBIN DIPSTICK" /> <statusCode code= "completed" /> <effectiveTime value="" /> <value unit="" xsi:type="PQ" value="NEGATIVE" /> <referenceRange> < observationRange> <text>NEGATIVE</text> </ observationRange> </referenceRange> </observation> </ component> <component> <observation moodCode="EVN" classCode="OBS"> <templateId root="16.840.1.271584.1022.4.2" /> <id nullFlavor="NA" /> <code codeSystem="local" code="LON" displayName="UA BLOOD DIPSTICK" /> <statusCode code="completed" /> < effectiveTime value="" /> <value unit="" xsi:type="PQ" value="2+" /> <referenceRange> <observationRange> <text>NEGATIVE</text> </observationRange> </ referenceRange> </observation> </component> <component> <observation moodCode="EVN" classCode="OBS"> <templateId root= "16.840.1.620148.10..22.4.2" /> <id nullFlavor="NA" /> < code codeSystem="local" code="COMU" displayName="UA COMMENT" /> < statusCode code="completed" /> <effectiveTime value="" /> <value unit="" xsi:type="PQ" value="" /> <referenceRange> <observationRange> <text /> </ observationRange> </referenceRange> </observation> </ component> <component> <observation moodCode="EVN" classCode="OBS"> <templateId root="16.840.1.163371.10.20.22.4.2" /> <id nullFlavor="NA" /> <code codeSystem="local" code="SPGRU" displayName= "UA SPECIFIC GRAVITY" /> <statusCode code="completed" /> < effectiveTime value="" /> <value unit="" xsi:type="PQ" value="1.001" /> <interpretationCode codeSystem="local" code="*" /> <referenceRange> <observationRange> <text>1.015- 1.025</text> </observationRange> </referenceRange> </ observation> </component> <component> <observation moodCode= "EVN" classCode="OBS"> <templateId root="2.16.840.1.791849.10..4.2 " /> <id nullFlavor="NA" /> <code codeSystem="local" code="WILLOW " displayName="UR PH" /> <statusCode code="completed" /> < effectiveTime value="315359742666" /> <value unit="" xsi:type="PQ" value="7.0" /> <referenceRange> <observationRange> <text>5.0-7.0</text> </observationRange> </ referenceRange> </observation> </component> </organizer> </entry > <entry> <organizer moodCode="EVN" classCode="BATTERY"> <templateId root="216.840.1.755816.10..4.1" /> <id nullFlavor="NA" /> <code codeSystem="local" code="PREGU" displayName="UR TEST" /> < statusCode code="completed" /> <component> <observation moodCode= "EVN" classCode="OBS"> <templateId root="216.840.1.545482...4.2 " /> <id nullFlavor="NA" /> <code codeSystem="local" code= "PREGU" displayName="UR TEST" /> <statusCode code="completed " /> <effectiveTime value="082351951463" /> <value unit="" xsi :type="PQ" value="NEGATIVE" /> <referenceRange> < observationRange> <text>NEGATIVE</text> </ observationRange> </referenceRange> </observation> </ component> </organizer> </entry> <entry> <organizer moodCode="EVN" classCode="BATTERY"> <templateId root="216.840.1.014714.03.15.22.4.1" /> <id nullFlavor="NA" /> <code codeSystem="local" code="UAMICRO" displayName="UA MICROSCOPIC" /> <statusCode code="completed" /> < component> <observation moodCode="EVN" classCode="OBS"> < templateId root="07.12.840.1.970149.10...4.2" /> <id nullFlavor="NA " /> <code codeSystem="local" code="EPIU" displayName="UA EPITHELIAL CELLS" /> <statusCode code="completed" /> <effectiveTime value ="377705358425" /> <value unit="epi/hpf" xsi:type="PQ" value="3+" /> <interpretationCode codeSystem="local" code="*" /> < referenceRange> <observationRange> <text>0 - 1+</text> </observationRange> </referenceRange> </observation> </component> <component> <observation moodCode="EVN" classCode ="OBS"> <templateId root="840.1.331475...4.2" /> < id nullFlavor="NA" /> <code codeSystem="local" code="MUCUSU" displayName="UA MUCUS" /> <statusCode code="completed" /> < effectiveTime value="940767088414" /> <value unit="" xsi:type="PQ" value="2+" /> <interpretationCode codeSystem="local" code="*" /> <referenceRange> <observationRange> <text>NEG TO 1+< /text> </observationRange> </referenceRange> </ observation> </component> <component> <observation moodCode= "EVN" classCode="OBS"> <templateId root="07.12.840.1.471844.10...4.2 " /> <id nullFlavor="NA" /> <code codeSystem="local" code= "RBCU" displayName="UA RBC" /> <statusCode code="completed" /> <effectiveTime value="" /> <value unit="rbc/hpf" xsi:type ="PQ" value="0-3" /> <referenceRange> <observationRange> <text>0 - 3</text> </observationRange> </ referenceRange> </observation> </component> <component> <observation moodCode="EVN" classCode="OBS"> <templateId root= "2.16.840.1.158802.10..22.4.2" /> <id nullFlavor="NA" /> < code codeSystem="local" code="UAVOL" displayName="UA VOLUME FOR EXAM" /> <statusCode code="completed" /> <effectiveTime value="" /> <value unit="mL" xsi:type="PQ" value="12.0" /> < referenceRange> <observationRange> <text>(12mL STD)</ text> </observationRange> </referenceRange> </ observation> </component> <component> <observation moodCode= "EVN" classCode="OBS"> <templateId root="2.16.840.1.544708.10..22.4.2 " /> <id nullFlavor="NA" /> <code codeSystem="local" code= "WBCU" displayName="UA WBC" /> <statusCode code="completed" /> <effectiveTime value="023426172316" /> <value unit="wbc/hpf" xsi:type ="PQ" value="0-1" /> <referenceRange> <observationRange> <text>0 - 5</text> </observationRange> </ referenceRange> </observation> </component> </organizer> </entry > <entry> <organizer moodCode="EVN" classCode="BATTERY"> <templateId root="2.840.1.130007.10..4.1" /> <id nullFlavor="NA" /> <code codeSystem="local" code="CBCD" displayName="CBC W/DIFF" /> <statusCode code ="completed" /> <component> <observation moodCode="EVN" classCode= "OBS"> <templateId root="840.1.409261.03.15.224.2" /> < id nullFlavor="NA" /> <code codeSystem="local" code="BA#" displayName= "BASOPHIL #" /> <statusCode code="completed" /> < effectiveTime value="754936639046" /> <value unit="k/cumm" xsi:type="PQ " value="0.0" /> <referenceRange> <observationRange> <text>0.0-0.2</text> </observationRange> </ referenceRange> </observation> </component> <component> <observation moodCode="EVN" classCode="OBS"> <templateId root= "840.1.405221.03.15.22.4.2" /> <id nullFlavor="NA" /> < code codeSystem="local" code="BA%" displayName="BASOPHIL %" /> <statusCode code="completed" /> <effectiveTime value="560008181642" /> <value unit="%" xsi:type="PQ" value="1" /> < referenceRange> <observationRange> <text>0-1</text> </observationRange> </referenceRange> </observation> </component> <component> <observation moodCode="EVN" classCode= "OBS"> <templateId root="16.840.1.801112.03.15.22.4.2" /> < id nullFlavor="NA" /> <code codeSystem="local" code="EO#" displayName= "EOSINOPHIL #" /> <statusCode code="completed" /> < effectiveTime value="" /> <value unit="k/cumm" xsi:type="PQ " value="0.2" /> <referenceRange> <observationRange> <text>0.1-0.5</text> </observationRange> </ referenceRange> </observation> </component> <component> <observation moodCode="EVN" classCode="OBS"> <templateId root= "2.16.840.1.572173.10..4.2" /> <id nullFlavor="NA" /> < code codeSystem="local" code="EO%" displayName="EOSINOPHIL %" /> <statusCode code="completed" /> <effectiveTime value="" /> <value unit="%" xsi:type="PQ" value="2" /> < referenceRange> <observationRange> <text>2-4</text> </observationRange> </referenceRange> </observation> </component> <component> <observation moodCode="EVN" classCode= "OBS"> <templateId root="2.16.840.1.750010.10..4.2" /> < id nullFlavor="NA" /> <code codeSystem="local" code="GR#" displayName= "GRANULOCYTE #" /> <statusCode code="completed" /> < effectiveTime value="" /> <value unit="k/cumm" xsi:type="PQ " value="4.3" /> <referenceRange> <observationRange> <text>2.0-9.0</text> </observationRange> </ referenceRange> </observation> </component> <component> <observation moodCode="EVN" classCode="OBS"> <templateId root= "16.840.1.814292.10..22.4.2" /> <id nullFlavor="NA" /> < code codeSystem="local" code="GR%" displayName="GRANULOCYTE %" /> <statusCode code="completed" /> <effectiveTime value=" " /> <value unit="%" xsi:type="PQ" value="57" /> < referenceRange> <observationRange> <text>50-75</text> </observationRange> </referenceRange> </observation> </component> <component> <observation moodCode="EVN" classCode= "OBS"> <templateId root="16.840.1.213052...4.2" /> < id nullFlavor="NA" /> <code codeSystem="local" code="LY#" displayName= "LYMPHOCYTE #" /> <statusCode code="completed" /> < effectiveTime value="" /> <value unit="k/cumm" xsi:type="PQ " value="2.3" /> <referenceRange> <observationRange> <text>1.0-4.0</text> </observationRange> </ referenceRange> </observation> </component> <component> <observation moodCode="EVN" classCode="OBS"> <templateId root= "16.840.1.494254.10.2022.4.2" /> <id nullFlavor="NA" /> < code codeSystem="local" code="LY%" displayName="LYMPHOCYTE %" /> <statusCode code="completed" /> <effectiveTime value="278531054969" /> <value unit="%" xsi:type="PQ" value="30" /> < referenceRange> <observationRange> <text>20-30</text> </observationRange> </referenceRange> </observation> </component> <component> <observation moodCode="EVN" classCode= "OBS"> <templateId root="216.840.1.966275.10.20.22.4.2" /> < id nullFlavor="NA" /> <code codeSystem="local" code="MCH" displayName= "MEAN CELL HGB" /> <statusCode code="completed" /> < effectiveTime value="366375264811" /> <value unit="pg" xsi:type="PQ" value="19.8" /> <interpretationCode codeSystem="local" code="*" /> <referenceRange> <observationRange> <text>27.0- 33.0</text> </observationRange> </referenceRange> </ observation> </component> <component> <observation moodCode= "EVN" classCode="OBS"> <templateId root="07.12.840.1.722733.10.22.4.2 " /> <id nullFlavor="NA" /> <code codeSystem="local" code= "MCHC" displayName="MEAN CELL HGB CONCENTRATION" /> <statusCode code= "completed" /> <effectiveTime value="556140225748" /> <value unit="g/dL" xsi:type="PQ" value="26.3" /> <interpretationCode codeSystem="local" code="*" /> <referenceRange> < observationRange> <text>32.0-37.0</text> </ observationRange> </referenceRange> </observation> </ component> <component> <observation moodCode="EVN" classCode="OBS"> <templateId root="216.840.1.314743.10.20.22.4.2" /> <id nullFlavor="NA" /> <code codeSystem="local" code="MCV" displayName= "MEAN CELL VOLUME" /> <statusCode code="completed" /> < effectiveTime value="" /> <value unit="fl" xsi:type="PQ" value="75.3" /> <interpretationCode codeSystem="local" code="*" /> <referenceRange> <observationRange> <text>80.0- 100.0</text> </observationRange> </referenceRange> </ observation> </component> <component> <observation moodCode= "EVN" classCode="OBS"> <templateId root="2.16.840.1.263948.03.15.22.4.2 " /> <id nullFlavor="NA" /> <code codeSystem="local" code="MO# " displayName="MONOCYTE #" /> <statusCode code="completed" /> <effectiveTime value="" /> <value unit="k/cumm" xsi:type= "PQ" value="0.8" /> <referenceRange> <observationRange> <text>0.1-1.0</text> </observationRange> </ referenceRange> </observation> </component> <component> <observation moodCode="EVN" classCode="OBS"> <templateId root= "216.840.1.818456.10.22.4.2" /> <id nullFlavor="NA" /> < code codeSystem="local" code="MO%" displayName="MONOCYTE %" /> <statusCode code="completed" /> <effectiveTime value="" /> <value unit="%" xsi:type="PQ" value="11" /> < interpretationCode codeSystem="local" code="*" /> <referenceRange> <observationRange> <text>4-6</text> </ observationRange> </referenceRange> </observation> </ component> <component> <observation moodCode="EVN" classCode="OBS"> <templateId root="16.840.1.727079.03.15.22.4.2" /> <id nullFlavor="NA" /> <code codeSystem="local" code="OVAL" displayName= "OVALOCYTES" /> <statusCode code="completed" /> < effectiveTime value="" /> <value unit="" xsi:type="PQ" value="NOTED" /> <referenceRange> <observationRange> <text /> </observationRange> </referenceRange> </observation> </component> <component> <observation moodCode ="EVN" classCode="OBS"> <templateId root= "07.12.840.1.852948.03.15.224.2" /> <id nullFlavor="NA" /> < code codeSystem="local" code="RBC" displayName="RED BLOOD CELL" /> < statusCode code="completed" /> <effectiveTime value="" /> <value unit="m/cumm" xsi:type="PQ" value="3.69" /> < interpretationCode codeSystem="local" code="*" /> <referenceRange> <observationRange> <text>4.00-6.00</text> </ observationRange> </referenceRange> </observation> </ component> <component> <observation moodCode="EVN" classCode="OBS"> <templateId root="07.12.840.1.001258.03.15.22.4.2" /> <id nullFlavor="NA" /> <code codeSystem="local" code="RDW" displayName=" RED CELL DISTRIBUTION WIDTH" /> <statusCode code="completed" /> <effectiveTime value="" /> <value unit="%" xsi:type= "PQ" value="18.3" /> <interpretationCode codeSystem="local" code="*" / > <referenceRange> <observationRange> <text> 11.0-15.6</text> </observationRange> </referenceRange> </observation> </component> <component> <observation moodCode="EVN" classCode="OBS"> <templateId root= "07.12.840.1.219375.03.15.22.4.2" /> <id nullFlavor="NA" /> < code codeSystem="local" code="WBC" displayName="WHITE BLOOD CELL" /> < statusCode code="completed" /> <effectiveTime value="[id number]" /> <value unit="k/cumm" xsi:type="PQ" value="7.6" /> < referenceRange> <observationRange> <text>5.0-10.0</text > </observationRange> </referenceRange> </observation > </component> <component> <observation moodCode="EVN" classCode="OBS"> <templateId root="16.840.1.685370.03.15.22.4.2" /> <id nullFlavor="NA" /> <code codeSystem="local" code="HGBT" displayName="HEMOGLOBIN" /> <statusCode code="completed" /> < effectiveTime value="" /> <value unit="gm/dL" xsi:type="PQ " value="7.3" /> <interpretationCode codeSystem="local" code="*" /> <referenceRange> <observationRange> <text>12.0- 16.0</text> </observationRange> </referenceRange> </ observation> </component> <component> <observation moodCode= "EVN" classCode="OBS"> <templateId root="07.12.840.1.132585.10..4.2 " /> <id nullFlavor="NA" /> <code codeSystem="local" code= "HCTT" displayName="HEMATOCRIT" /> <statusCode code="completed" /> <effectiveTime value="" /> <value unit="%" xsi: type="PQ" value="27.8" /> <interpretationCode codeSystem="local" code= "*" /> <referenceRange> <observationRange> < text>37.0-47.0</text> </observationRange> </referenceRange> </observation> </component> <component> <observation moodCode="EVN" classCode="OBS"> <templateId root= "840.1.241724.03.15.22.4.2" /> <id nullFlavor="NA" /> < code codeSystem="local" code="PLT" displayName="PLATELET COUNT" /> < statusCode code="completed" /> <effectiveTime value="" /> <value unit="k/cumm" xsi:type="PQ" value="268" /> < referenceRange> <observationRange> <text>150-400</text> </observationRange> </referenceRange> </observation > </component> </organizer> </entry> <entry> <organizer moodCode= "EVN" classCode="BATTERY"> <templateId root="07.12.840.1.557331.22.4.1 " /> <id nullFlavor="NA" /> <code codeSystem="local" code="iCHEM8" displayName="CHEM/HEM PROFILE-BEDSIDE" /> <statusCode code="completed" /> <component> <observation moodCode="EVN" classCode="OBS"> < templateId root="07.12.840.1.895414.22.4.2" /> <id nullFlavor="NA " /> <code codeSystem="local" code="K" displayName="POTASSIUM" /> <statusCode code="completed" /> <effectiveTime value=" " /> <value unit="mmol/L" xsi:type="PQ" value="3.3" /> < interpretationCode codeSystem="local" code="*" /> <referenceRange> <observationRange> <text>3.5-5.3</text> </ observationRange> </referenceRange> </observation> </ component> <component> <observation moodCode="EVN" classCode="OBS"> <templateId root="2.16.840.1.636227...4.2" /> <id nullFlavor="NA" /> <code codeSystem="local" code="CMETHOD" displayName= "METHOD" /> <statusCode code="completed" /> <effectiveTime value="" /> <value unit="" xsi:type="PQ" value="Bedside" / > <referenceRange> <observationRange> <text /> </observationRange> </referenceRange> </observation > </component> <component> <observation moodCode="EVN" classCode="OBS"> <templateId root="2.16.840.1.480151....4.2" /> <id nullFlavor="NA" /> <code codeSystem="local" code="GAP" displayName="ANION GAP" /> <statusCode code="completed" /> < effectiveTime value="" /> <value unit="mmol/L" xsi:type="PQ " value="19" /> <referenceRange> <observationRange> <text>10-20</text> </observationRange> </ referenceRange> </observation> </component> <component> <observation moodCode="EVN" classCode="OBS"> <templateId root= "216.840.1.503687.10..4.2" /> <id nullFlavor="NA" /> < code codeSystem="local" code="HMETHOD" displayName="METHOD" /> < statusCode code="completed" /> <effectiveTime value="" /> <value unit="" xsi:type="PQ" value="Bedside" /> < referenceRange> <observationRange> <text /> < /observationRange> </referenceRange> </observation> </ component> <component> <observation moodCode="EVN" classCode="OBS"> <templateId root="16.840.1.445408.03.15.22.4.2" /> <id nullFlavor="NA" /> <code codeSystem="local" code="GLU" displayName= "GLUCOSE" /> <statusCode code="completed" /> <effectiveTime value="" /> <value unit="mg/dL" xsi:type="PQ" value="86" / > <referenceRange> <observationRange> <text>70- 99</text> </observationRange> </referenceRange> </ observation> </component> <component> <observation moodCode= "EVN" classCode="OBS"> <templateId root="07.12.840.1.708273.03.15.22.4.2 " /> <id nullFlavor="NA" /> <code codeSystem="local" code="BUN " displayName="BLOOD UREA NITROGEN" /> <statusCode code="completed" /> <effectiveTime value="" /> <value unit="mg/dL" xsi:type="PQ" value="< 3" /> <interpretationCode codeSystem="local" code="*" /> <referenceRange> <observationRange> <text>7-20</text> </observationRange> </referenceRange> </observation> </component> <component> <observation moodCode="EVN" classCode="OBS"> <templateId root= "16.840.1.995289.03.15.22.4.2" /> <id nullFlavor="NA" /> < code codeSystem="local" code="CREAT" displayName="CREATININE" /> < statusCode code="completed" /> <effectiveTime value="" /> <value unit="mg/dL" xsi:type="PQ" value="0.7" /> < referenceRange> <observationRange> <text>0.6-1.0</text> </observationRange> </referenceRange> </observation > </component> <component> <observation moodCode="EVN" classCode="OBS"> <templateId root="07.12.840.1.029482.03.15.22.4.2" /> <id nullFlavor="NA" /> <code codeSystem="local" code="HGBT" displayName="HEMOGLOBIN" /> <statusCode code="completed" /> < effectiveTime value="[id number]" /> <value unit="gm/dL" xsi:type="PQ " value="8.5" /> <interpretationCode codeSystem="local" code="*" /> <referenceRange> <observationRange> <text>12.0- 16.0</text> </observationRange> </referenceRange> </ observation> </component> <component> <observation moodCode= "EVN" classCode="OBS"> <templateId root="16.840.1.791399.03.15.22.4.2 " /> <id nullFlavor="NA" /> <code codeSystem="local" code= "HCTT" displayName="HEMATOCRIT" /> <statusCode code="completed" /> <effectiveTime value="[id number]" /> <value unit="%" xsi: type="PQ" value="25.0" /> <interpretationCode codeSystem="local" code= "*" /> <referenceRange> <observationRange> < text>37.0-47.0</text> </observationRange> </referenceRange> </observation> </component> <component> <observation moodCode="EVN" classCode="OBS"> <templateId root= "16.840.1.729095.10.20.22.4.2" /> <id nullFlavor="NA" /> < code codeSystem="local" code="NA" displayName="SODIUM" /> <statusCode code="completed" /> <effectiveTime value="345926885425" /> < value unit="mmol/L" xsi:type="PQ" value="142" /> <referenceRange> <observationRange> <text>135-148</text> </ observationRange> </referenceRange> </observation> </ component> <component> <observation moodCode="EVN" classCode="OBS"> <templateId root="07.12.840.1.187877.10..22.4.2" /> <id nullFlavor="NA" /> <code codeSystem="local" code="CL" displayName= "CHLORIDE" /> <statusCode code="completed" /> <effectiveTime value="" /> <value unit="mmol/L" xsi:type="PQ" value="104" /> <referenceRange> <observationRange> <text>98 -110</text> </observationRange> </referenceRange> </ observation> </component> <component> <observation moodCode= "EVN" classCode="OBS"> <templateId root="07.12.840.1.687252.10.2022.4.2 " /> <id nullFlavor="NA" /> <code codeSystem="local" code="CO2 " displayName="CARBON DIOXIDE" /> <statusCode code="completed" /> <effectiveTime value="828188596717" /> <value unit="mmol/L" xsi: type="PQ" value="24" /> <referenceRange> <observationRange> <text>21-32</text> </observationRange> </ referenceRange> </observation> </component> <component> <observation moodCode="EVN" classCode="OBS"> <templateId root= "840.1.309840.03.15.22.4.2" /> <id nullFlavor="NA" /> < code codeSystem="local" code="CAION" displayName="CALCIUM IONIZED" /> < statusCode code="completed" /> <effectiveTime value="" /> <value unit="mg/dL" xsi:type="PQ" value="5.0" /> < referenceRange> <observationRange> <text>4.5-5.3</text> </observationRange> </referenceRange> </observation > </component> </organizer> </entry> <entry> <organizer moodCode= "EVN" classCode="BATTERY"> <templateId root="840.1.346637.03.15.22.4.1 " /> <id nullFlavor="NA" /> <code codeSystem="local" code="CBCD" displayName="CBC W/DIFF" /> <statusCode code="completed" /> <component > <observation moodCode="EVN" classCode="OBS"> <templateId root= "07.12.840.1.325762.22.4.2" /> <id nullFlavor="NA" /> < code codeSystem="local" code="BA#" displayName="BASOPHIL #" /> < statusCode code="completed" /> <effectiveTime value="" /> <value unit="k/cumm" xsi:type="PQ" value="0.1" /> < referenceRange> <observationRange> <text>0.0-0.2</text> </observationRange> </referenceRange> </observation > </component> <component> <observation moodCode="EVN" classCode="OBS"> <templateId root="07.12.840.1.331013.10.22.4.2" /> <id nullFlavor="NA" /> <code codeSystem="local" code="BA% " displayName="BASOPHIL %" /> <statusCode code="completed" /> <effectiveTime value="" /> <value unit="%" xsi: type="PQ" value="1" /> <referenceRange> <observationRange> <text>0-1</text> </observationRange> </ referenceRange> </observation> </component> <component> <observation moodCode="EVN" classCode="OBS"> <templateId root= "07.12.840.1.279754.10..4.2" /> <id nullFlavor="NA" /> < code codeSystem="local" code="CBCCOM" displayName="COMMENT" /> < statusCode code="completed" /> <effectiveTime value="" /> <value unit="" xsi:type="PQ" value="REVIEWED" /> < referenceRange> <observationRange> <text /> < /observationRange> </referenceRange> </observation> </ component> <component> <observation moodCode="EVN" classCode="OBS"> <templateId root="07.12.840.1.438068.10.2022.4.2" /> <id nullFlavor="NA" /> <code codeSystem="local" code="EO#" displayName= "EOSINOPHIL #" /> <statusCode code="completed" /> < effectiveTime value="" /> <value unit="k/cumm" xsi:type="PQ " value="0.2" /> <referenceRange> <observationRange> <text>0.1-0.5</text> </observationRange> </ referenceRange> </observation> </component> <component> <observation moodCode="EVN" classCode="OBS"> <templateId root= "216.840.1.774143.10..4.2" /> <id nullFlavor="NA" /> < code codeSystem="local" code="EO%" displayName="EOSINOPHIL %" /> <statusCode code="completed" /> <effectiveTime value="" /> <value unit="%" xsi:type="PQ" value="2" /> < referenceRange> <observationRange> <text>2-4</text> </observationRange> </referenceRange> </observation> </component> <component> <observation moodCode="EVN" classCode= "OBS"> <templateId root="216.840.1.472612.10..4.2" /> < id nullFlavor="NA" /> <code codeSystem="local" code="GR#" displayName= "GRANULOCYTE #" /> <statusCode code="completed" /> < effectiveTime value="" /> <value unit="k/cumm" xsi:type="PQ " value="3.7" /> <referenceRange> <observationRange> <text>2.0-9.0</text> </observationRange> </ referenceRange> </observation> </component> <component> <observation moodCode="EVN" classCode="OBS"> <templateId root= "16.840.1.188322.10.20.22.4.2" /> <id nullFlavor="NA" /> < code codeSystem="local" code="GR%" displayName="GRANULOCYTE %" /> <statusCode code="completed" /> <effectiveTime value=" " /> <value unit="%" xsi:type="PQ" value="50" /> < referenceRange> <observationRange> <text>50-75</text> </observationRange> </referenceRange> </observation> </component> <component> <observation moodCode="EVN" classCode= "OBS"> <templateId root="07.12.840.1.261068.10.22.4.2" /> < id nullFlavor="NA" /> <code codeSystem="local" code="LY#" displayName= "LYMPHOCYTE #" /> <statusCode code="completed" /> < effectiveTime value="" /> <value unit="k/cumm" xsi:type="PQ " value="2.8" /> <referenceRange> <observationRange> <text>1.0-4.0</text> </observationRange> </ referenceRange> </observation> </component> <component> <observation moodCode="EVN" classCode="OBS"> <templateId root= "07.12.840.1.704346.10.2022.4.2" /> <id nullFlavor="NA" /> < code codeSystem="local" code="LY%" displayName="LYMPHOCYTE %" /> <statusCode code="completed" /> <effectiveTime value="" /> <value unit="%" xsi:type="PQ" value="38" /> < interpretationCode codeSystem="local" code="*" /> <referenceRange> <observationRange> <text>20-30</text> </ observationRange> </referenceRange> </observation> </ component> <component> <observation moodCode="EVN" classCode="OBS"> <templateId root="2.16.840.1.194494.10..22.4.2" /> <id nullFlavor="NA" /> <code codeSystem="local" code="MCH" displayName= "MEAN CELL HGB" /> <statusCode code="completed" /> < effectiveTime value="" /> <value unit="pg" xsi:type="PQ" value="17.5" /> <interpretationCode codeSystem="local" code="*" /> <referenceRange> <observationRange> <text>27.0- 33.0</text> </observationRange> </referenceRange> </ observation> </component> <component> <observation moodCode= "EVN" classCode="OBS"> <templateId root="216.840.1.454227.10...4.2 " /> <id nullFlavor="NA" /> <code codeSystem="local" code= "MCHC" displayName="MEAN CELL HGB CONCENTRATION" /> <statusCode code= "completed" /> <effectiveTime value="" /> <value unit="g/dL" xsi:type="PQ" value="27.3" /> <interpretationCode codeSystem="local" code="*" /> <referenceRange> < observationRange> <text>32.0-37.0</text> </ observationRange> </referenceRange> </observation> </ component> <component> <observation moodCode="EVN" classCode="OBS"> <templateId root="216.840.1.719019.10...4.2" /> <id nullFlavor="NA" /> <code codeSystem="local" code="MCV" displayName= "MEAN CELL VOLUME" /> <statusCode code="completed" /> < effectiveTime value="" /> <value unit="fl" xsi:type="PQ" value="64.0" /> <interpretationCode codeSystem="local" code="*" /> <referenceRange> <observationRange> <text>80.0- 100.0</text> </observationRange> </referenceRange> </ observation> </component> <component> <observation moodCode= "EVN" classCode="OBS"> <templateId root="2.16.840.1.032184.03.15.224.2 " /> <id nullFlavor="NA" /> <code codeSystem="local" code="MO# " displayName="MONOCYTE #" /> <statusCode code="completed" /> <effectiveTime value="" /> <value unit="k/cumm" xsi:type= "PQ" value="0.7" /> <referenceRange> <observationRange> <text>0.1-1.0</text> </observationRange> </ referenceRange> </observation> </component> <component> <observation moodCode="EVN" classCode="OBS"> <templateId root= "216.840.1.091343.10.4.2" /> <id nullFlavor="NA" /> < code codeSystem="local" code="MO%" displayName="MONOCYTE %" /> <statusCode code="completed" /> <effectiveTime value="" /> <value unit="%" xsi:type="PQ" value="9" /> < interpretationCode codeSystem="local" code="*" /> <referenceRange> <observationRange> <text>4-6</text> </ observationRange> </referenceRange> </observation> </ component> <component> <observation moodCode="EVN" classCode="OBS"> <templateId root="16.840.1.963976.03.15.22.4.2" /> <id nullFlavor="NA" /> <code codeSystem="local" code="OVAL" displayName= "OVALOCYTES" /> <statusCode code="completed" /> < effectiveTime value="" /> <value unit="" xsi:type="PQ" value="NOTED" /> <referenceRange> <observationRange> <text /> </observationRange> </referenceRange> </observation> </component> <component> <observation moodCode ="EVN" classCode="OBS"> <templateId root= "07.12.840.1.586206.03.15.224.2" /> <id nullFlavor="NA" /> < code codeSystem="local" code="RBC" displayName="RED BLOOD CELL" /> < statusCode code="completed" /> <effectiveTime value="" /> <value unit="m/cumm" xsi:type="PQ" value="3.89" /> < interpretationCode codeSystem="local" code="*" /> <referenceRange> <observationRange> <text>4.00-6.00</text> </ observationRange> </referenceRange> </observation> </ component> <component> <observation moodCode="EVN" classCode="OBS"> <templateId root="07.12.840.1.801532.03.15.22.4.2" /> <id nullFlavor="NA" /> <code codeSystem="local" code="RDW" displayName=" RED CELL DISTRIBUTION WIDTH" /> <statusCode code="completed" /> <effectiveTime value="" /> <value unit="%" xsi:type= "PQ" value="20.2" /> <interpretationCode codeSystem="local" code="*" / > <referenceRange> <observationRange> <text> 11.0-15.6</text> </observationRange> </referenceRange> </observation> </component> <component> <observation moodCode="EVN" classCode="OBS"> <templateId root= "16.840.1.486092.22.4.2" /> <id nullFlavor="NA" /> < code codeSystem="local" code="WBC" displayName="WHITE BLOOD CELL" /> < statusCode code="completed" /> <effectiveTime value="" /> <value unit="k/cumm" xsi:type="PQ" value="7.4" /> < referenceRange> <observationRange> <text>5.0-10.0</text > </observationRange> </referenceRange> </observation > </component> <component> <observation moodCode="EVN" classCode="OBS"> <templateId root="07.12.840.1.419256.1022.4.2" /> <id nullFlavor="NA" /> <code codeSystem="local" code="HGBT" displayName="HEMOGLOBIN" /> <statusCode code="completed" /> < effectiveTime value="" /> <value unit="gm/dL" xsi:type="PQ " value="6.8" /> <interpretationCode codeSystem="local" code="*" /> <referenceRange> <observationRange> <text>12.0- 16.0</text> </observationRange> </referenceRange> </ observation> </component> <component> <observation moodCode= "EVN" classCode="OBS"> <templateId root="840.1.001441.10.20.22.4.2 " /> <id nullFlavor="NA" /> <code codeSystem="local" code= "HCTT" displayName="HEMATOCRIT" /> <statusCode code="completed" /> <effectiveTime value="" /> <value unit="%" xsi: type="PQ" value="24.9" /> <interpretationCode codeSystem="local" code= "*" /> <referenceRange> <observationRange> < text>37.0-47.0</text> </observationRange> </referenceRange> </observation> </component> <component> <observation moodCode="EVN" classCode="OBS"> <templateId root= "840.1.907889.1022.4.2" /> <id nullFlavor="NA" /> < code codeSystem="local" code="PLT" displayName="PLATELET COUNT" /> < statusCode code="completed" /> <effectiveTime value="" /> <value unit="k/cumm" xsi:type="PQ" value="311" /> < referenceRange> <observationRange> <text>150-400</text> </observationRange> </referenceRange> </observation > </component> </organizer> </entry> <entry> <organizer moodCode= "EVN" classCode="BATTERY"> <templateId root="840.1.530367.10.2022.4.1 " /> <id nullFlavor="NA" /> <code codeSystem="local" code="LIVER" displayName="HEPATIC FUNCTION PANEL" /> <statusCode code="completed" /> <component> <observation moodCode="EVN" classCode="OBS"> < templateId root="840.1.682857.104.2" /> <id nullFlavor="NA " /> <code codeSystem="local" code="BILUC" displayName="BILI UNCONJUGATED" /> <statusCode code="completed" /> < effectiveTime value="" /> <value unit="mg/dL" xsi:type="PQ " value="0.1" /> <referenceRange> <observationRange> <text>0.0-0.7</text> </observationRange> </ referenceRange> </observation> </component> <component> <observation moodCode="EVN" classCode="OBS"> <templateId root= "2.16.840.1.709640.03.15.224.2" /> <id nullFlavor="NA" /> < code codeSystem="local" code="AST" displayName="AST/SGOT" /> < statusCode code="completed" /> <effectiveTime value="" /> <value unit="Units/L" xsi:type="PQ" value="69" /> < interpretationCode codeSystem="local" code="*" /> <referenceRange> <observationRange> <text>10-37</text> </ observationRange> </referenceRange> </observation> </ component> <component> <observation moodCode="EVN" classCode="OBS"> <templateId root="2.16.840.1.159268.104.2" /> <id nullFlavor="NA" /> <code codeSystem="local" code="ALT" displayName="ALT /SGPT" /> <statusCode code="completed" /> <effectiveTime value ="" /> <value unit="Units/L" xsi:type="PQ" value="45" /> <referenceRange> <observationRange> <text>< 66</text> </observationRange> </referenceRange> </ observation> </component> <component> <observation moodCode= "EVN" classCode="OBS"> <templateId root="07.12.840.1.893502..22.4.2 " /> <id nullFlavor="NA" /> <code codeSystem="local" code="TP " displayName="TOTAL PROTEIN" /> <statusCode code="completed" /> <effectiveTime value="" /> <value unit="gm/dL" xsi:type ="PQ" value="7.1" /> <referenceRange> <observationRange> <text>6.4-8.2</text> </observationRange> </ referenceRange> </observation> </component> <component> <observation moodCode="EVN" classCode="OBS"> <templateId root= "07.12.840.1.167604.22.4.2" /> <id nullFlavor="NA" /> < code codeSystem="local" code="ALB" displayName="ALBUMIN" /> < statusCode code="completed" /> <effectiveTime value="[id number]" /> <value unit="gm/dL" xsi:type="PQ" value="3.4" /> < referenceRange> <observationRange> <text>3.4-5.0</text> </observationRange> </referenceRange> </observation > </component> <component> <observation moodCode="EVN" classCode="OBS"> <templateId root="07.12.840.1.430758.10.20.22.4.2" /> <id nullFlavor="NA" /> <code codeSystem="local" code="BILTOT" displayName="BILI TOTAL" /> <statusCode code="completed" /> < effectiveTime value="351059086198" /> <value unit="mg/dL" xsi:type="PQ " value="0.2" /> <referenceRange> <observationRange> <text>0.0-1.0</text> </observationRange> </ referenceRange> </observation> </component> <component> <observation moodCode="EVN" classCode="OBS"> <templateId root= "16.840.1.557859.10.20.22.4.2" /> <id nullFlavor="NA" /> < code codeSystem="local" code="ALKP" displayName="ALKALINE PHOSPHATASE TOTAL" /> <statusCode code="completed" /> <effectiveTime value= "" /> <value unit="IU/L" xsi:type="PQ" value="91" /> <referenceRange> <observationRange> <text>45-117</ text> </observationRange> </referenceRange> </ observation> </component> <component> <observation moodCode= "EVN" classCode="OBS"> <templateId root="07.12.840.1.159807.10.22.4.2 " /> <id nullFlavor="NA" /> <code codeSystem="local" code= "BILC" displayName="BILI CONJUGATED" /> <statusCode code="completed" / > <effectiveTime value="219490695675" /> <value unit="mg/dL" xsi:type="PQ" value="< 0.1" /> <referenceRange> < observationRange> <text>0.0-0.3</text> </ observationRange> </referenceRange> </observation> </ component> </organizer> </entry> <entry> <organizer moodCode="EVN" classCode="BATTERY"> <templateId root="16.840.1.715068.10.20.22.4.1" /> <id nullFlavor="NA" /> <code codeSystem="local" code="iCHEM8" displayName="CHEM/HEM PROFILE-BEDSIDE" /> <statusCode code="completed" /> <component> <observation moodCode="EVN" classCode="OBS"> < templateId root="16.840.1.012872.1022.4.2" /> <id nullFlavor="NA " /> <code codeSystem="local" code="K" displayName="POTASSIUM" /> <statusCode code="completed" /> <effectiveTime value=" " /> <value unit="mmol/L" xsi:type="PQ" value="4.1" /> < referenceRange> <observationRange> <text>3.5-5.3</text> </observationRange> </referenceRange> </observation > </component> <component> <observation moodCode="EVN" classCode="OBS"> <templateId root="07.12.840.1.892314.1022.4.2" /> <id nullFlavor="NA" /> <code codeSystem="local" code="CMETHOD " displayName="METHOD" /> <statusCode code="completed" /> < effectiveTime value="[id number]" /> <value unit="" xsi:type="PQ" value="Bedside" /> <referenceRange> <observationRange> <text /> </observationRange> </referenceRange> </observation> </component> <component> <observation moodCode="EVN" classCode="OBS"> <templateId root= "16.840.1.885186.10.22.4.2" /> <id nullFlavor="NA" /> < code codeSystem="local" code="GAP" displayName="ANION GAP" /> < statusCode code="completed" /> <effectiveTime value="" /> <value unit="mmol/L" xsi:type="PQ" value="18" /> < referenceRange> <observationRange> <text>10-20</text> </observationRange> </referenceRange> </observation> </component> <component> <observation moodCode="EVN" classCode= "OBS"> <templateId root="16.840.1.012730.10..4.2" /> < id nullFlavor="NA" /> <code codeSystem="local" code="HMETHOD" displayName="METHOD" /> <statusCode code="completed" /> < effectiveTime value="457834735298" /> <value unit="" xsi:type="PQ" value="Bedside" /> <referenceRange> <observationRange> <text /> </observationRange> </referenceRange> </observation> </component> <component> <observation moodCode="EVN" classCode="OBS"> <templateId root= "07.12.840.1.315700.03.15.22.4.2" /> <id nullFlavor="NA" /> < code codeSystem="local" code="GLU" displayName="GLUCOSE" /> < statusCode code="completed" /> <effectiveTime value="" /> <value unit="mg/dL" xsi:type="PQ" value="110" /> < interpretationCode codeSystem="local" code="*" /> <referenceRange> <observationRange> <text>70-99</text> </ observationRange> </referenceRange> </observation> </ component> <component> <observation moodCode="EVN" classCode="OBS"> <templateId root="07.12.840.1.039869.1022.4.2" /> <id nullFlavor="NA" /> <code codeSystem="local" code="BUN" displayName= "BLOOD UREA NITROGEN" /> <statusCode code="completed" /> < effectiveTime value="213991781536" /> <value unit="mg/dL" xsi:type="PQ " value="15" /> <referenceRange> <observationRange> <text>7-20</text> </observationRange> </referenceRange > </observation> </component> <component> <observation moodCode="EVN" classCode="OBS"> <templateId root= "216.840.1.297801.10..22.4.2" /> <id nullFlavor="NA" /> < code codeSystem="local" code="CREAT" displayName="CREATININE" /> < statusCode code="completed" /> <effectiveTime value="798148963991" /> <value unit="mg/dL" xsi:type="PQ" value="0.8" /> < referenceRange> <observationRange> <text>0.6-1.0</text> </observationRange> </referenceRange> </observation > </component> <component> <observation moodCode="EVN" classCode="OBS"> <templateId root="216.840.1.500940.10...4.2" /> <id nullFlavor="NA" /> <code codeSystem="local" code="HGBT" displayName="HEMOGLOBIN" /> <statusCode code="completed" /> < effectiveTime value="659946780816" /> <value unit="gm/dL" xsi:type="PQ " value="8.2" /> <interpretationCode codeSystem="local" code="*" /> <referenceRange> <observationRange> <text>12.0- 16.0</text> </observationRange> </referenceRange> </ observation> </component> <component> <observation moodCode= "EVN" classCode="OBS"> <templateId root="216.840.1.624537.10..22.4.2 " /> <id nullFlavor="NA" /> <code codeSystem="local" code= "HCTT" displayName="HEMATOCRIT" /> <statusCode code="completed" /> <effectiveTime value="481704217384" /> <value unit="%" xsi: type="PQ" value="24.0" /> <interpretationCode codeSystem="local" code= "*" /> <referenceRange> <observationRange> < text>37.0-47.0</text> </observationRange> </referenceRange> </observation> </component> <component> <observation moodCode="EVN" classCode="OBS"> <templateId root= "2.16.840.1.269011.10..22.4.2" /> <id nullFlavor="NA" /> < code codeSystem="local" code="NA" displayName="SODIUM" /> <statusCode code="completed" /> <effectiveTime value="554254153197" /> < value unit="mmol/L" xsi:type="PQ" value="139" /> <referenceRange> <observationRange> <text>135-148</text> </ observationRange> </referenceRange> </observation> </ component> <component> <observation moodCode="EVN" classCode="OBS"> <templateId root="2.16.840.1.225822.10..22.4.2" /> <id nullFlavor="NA" /> <code codeSystem="local" code="CL" displayName= "CHLORIDE" /> <statusCode code="completed" /> <effectiveTime value="616797059599" /> <value unit="mmol/L" xsi:type="PQ" value="101" /> <referenceRange> <observationRange> <text>98 -110</text> </observationRange> </referenceRange> </ observation> </component> <component> <observation moodCode= "EVN" classCode="OBS"> <templateId root="07.12.840.1.656385.10..4.2 " /> <id nullFlavor="NA" /> <code codeSystem="local" code="CO2 " displayName="CARBON DIOXIDE" /> <statusCode code="completed" /> <effectiveTime value="552601878718" /> <value unit="mmol/L" xsi: type="PQ" value="26" /> <referenceRange> <observationRange> <text>21-32</text> </observationRange> </ referenceRange> </observation> </component> <component> <observation moodCode="EVN" classCode="OBS"> <templateId root= "07.12.840.1.848484.03.15.22.4.2" /> <id nullFlavor="NA" /> < code codeSystem="local" code="CAION" displayName="CALCIUM IONIZED" /> < statusCode code="completed" /> <effectiveTime value="134164825240" /> <value unit="mg/dL" xsi:type="PQ" value="4.7" /> < referenceRange> <observationRange> <text>4.5-5.3</text> </observationRange> </referenceRange> </observation > </component> </organizer> </entry> <entry> <organizer moodCode= "EVN" classCode="BATTERY"> <templateId root="07.12.840.1.459262.22.4.1 " /> <id nullFlavor="NA" /> <code codeSystem="local" code="iTROPI" displayName="TROPONIN I BEDSIDE" /> <statusCode code="completed" /> < component> <observation moodCode="EVN" classCode="OBS"> < templateId root="07.12.840.1.725373.03.15.22.4.2" /> <id nullFlavor="NA " /> <code codeSystem="local" code="CMETHOD" displayName="METHOD" /> <statusCode code="completed" /> <effectiveTime value= "077629560750" /> <value unit="" xsi:type="PQ" value="Bedside" /> <referenceRange> <observationRange> <text /> </observationRange> </referenceRange> </observation> </component> <component> <observation moodCode="EVN" classCode="OBS "> <templateId root="840.1.498824.03.15.22.4.2" /> <id nullFlavor="NA" /> <code codeSystem="local" code="TROPI" displayName= "TROPONIN I" /> <statusCode code="completed" /> < effectiveTime value="367129857302" /> <value unit="ng/mL" xsi:type="PQ " value="< 0.04" /> <referenceRange> <observationRange> <text>< 0.11</text> </observationRange> </ referenceRange> </observation> </component> </organizer> </entry > <entry> <organizer moodCode="EVN" classCode="BATTERY"> <templateId root="840.1.486134.03.15.22.4.1" /> <id nullFlavor="NA" /> <code codeSystem="local" code="FETIBC" displayName="IRON W/ BINDING CAPACITY" /> <statusCode code="completed" /> <component> <observation moodCode= "EVN" classCode="OBS"> <templateId root="07.12.840.1.626572.03.15.22.4.2 " /> <id nullFlavor="NA" /> <code codeSystem="local" code= "FESAT" displayName="IRON SATURATION" /> <statusCode code="completed" / > <effectiveTime value="692111767693" /> <value unit="%SAT " xsi:type="PQ" value="2" /> <interpretationCode codeSystem="local" code="*" /> <referenceRange> <observationRange> <text>11-46</text> </observationRange> </referenceRange> </observation> </component> <component> <observation moodCode="EVN" classCode="OBS"> <templateId root= "216.840.1.656563.10.20.22.4.2" /> <id nullFlavor="NA" /> < code codeSystem="local" code="TIBC" displayName="IRON BINDING CAPACITY, TOTAL" / > <statusCode code="completed" /> <effectiveTime value= "636372184956" /> <value unit="mcg/dL" xsi:type="PQ" value="477" /> <interpretationCode codeSystem="local" code="*" /> < referenceRange> <observationRange> <text>250-450</text> </observationRange> </referenceRange> </observation > </component> <component> <observation moodCode="EVN" classCode="OBS"> <templateId root="216.840.1.195800.10.20.22.4.2" /> <id nullFlavor="NA" /> <code codeSystem="local" code="IRON" displayName="IRON" /> <statusCode code="completed" /> < effectiveTime value="221954695645" /> <value unit="mcg/dL" xsi:type="PQ " value="11" /> <interpretationCode codeSystem="local" code="*" /> <referenceRange> <observationRange> <text>35-150</ text> </observationRange> </referenceRange> </ observation> </component> </organizer> </entry> <entry> <organizer moodCode="EVN" classCode="BATTERY"> <templateId root= "840.1.238969.03.15.22.4.1" /> <id nullFlavor="NA" /> <code codeSystem="local" code="LIP" displayName="LIPASE" /> <statusCode code= "completed" /> <component> <observation moodCode="EVN" classCode= "OBS"> <templateId root="840.1.223814.03.15.22.4.2" /> < id nullFlavor="NA" /> <code codeSystem="local" code="LIP" displayName= "LIPASE" /> <statusCode code="completed" /> <effectiveTime value="526390468822" /> <value unit="Units/L" xsi:type="PQ" value="87" /> <referenceRange> <observationRange> <text>73 -393</text> </observationRange> </referenceRange> </ observation> </component> </organizer> </entry> <entry> <organizer moodCode="EVN" classCode="BATTERY"> <templateId root= "840.1.069284.03.15.22.4.1" /> <id nullFlavor="NA" /> <code codeSystem="local" code="LEANNE" displayName="FERRITIN" /> <statusCode code= "completed" /> <component> <observation moodCode="EVN" classCode= "OBS"> <templateId root="840.1.290961.03.15.22.4.2" /> < id nullFlavor="NA" /> <code codeSystem="local" code="LEANNE" displayName= "FERRITIN" /> <statusCode code="completed" /> <effectiveTime value="267268444897" /> <value unit="ng/mL" xsi:type="PQ" value="1" /> <interpretationCode codeSystem="local" code="*" /> < referenceRange> <observationRange> <text>8-252</text> </observationRange> </referenceRange> </observation> </component> </organizer> </entry> <entry> <organizer moodCode="EVN " classCode="BATTERY"> <templateId root="216.840.1.002551.10.22.4.1" / > <id nullFlavor="NA" /> <code codeSystem="local" code="PHEN" displayName="PHENYTOIN (DILANTIN)" /> <statusCode code="completed" /> <component> <observation moodCode="EVN" classCode="OBS"> < templateId root="216.840.1.419772....4.2" /> <id nullFlavor="NA " /> <code codeSystem="local" code="PHEN" displayName="PHENYTOIN ( DILANTIN)" /> <statusCode code="completed" /> <effectiveTime value="689963105712" /> <value unit="mcg/mL" xsi:type="PQ" value="3.5" /> <interpretationCode codeSystem="local" code="*" /> < referenceRange> <observationRange> <text>10.0-20.0</text > </observationRange> </referenceRange> </observation > </component> </organizer> </entry> <entry> <organizer moodCode= "EVN" classCode="BATTERY"> <templateId root="216.840.1.500084....4.1 " /> <id nullFlavor="NA" /> <code codeSystem="local" code="TSH" displayName="THYROID STIM HORMONE (TSH)" /> <statusCode code="completed" / > <component> <observation moodCode="EVN" classCode="OBS"> <templateId root="2.16.840.1.890312.10..22.4.2" /> <id nullFlavor="NA " /> <code codeSystem="local" code="TSH" displayName="THYROID STIM HORMONE (TSH)" /> <statusCode code="completed" /> < effectiveTime value="979641009614" /> <value unit="uIU/mL" xsi:type="PQ " value="4.81" /> <referenceRange> <observationRange> <text>0.34-4.82</text> </observationRange> </ referenceRange> </observation> </component> </organizer> </entry > <entry> <organizer moodCode="EVN" classCode="BATTERY"> <templateId root="2.16.840.1.768132.10..22.4.1" /> <id nullFlavor="NA" /> <code codeSystem="local" code="HBA1C" displayName="HEMOGLOBIN A1C" /> < statusCode code="completed" /> <component> <observation moodCode= "EVN" classCode="OBS"> <templateId root="2.16.840.1.780492.10.20.22.4.2 " /> <id nullFlavor="NA" /> <code codeSystem="local" code= "HBA1C" displayName="HEMOGLOBIN A1C" /> <statusCode code="completed" / > <effectiveTime value="740308919939" /> <value unit="%" xsi:type="PQ" value="5.9" /> <interpretationCode codeSystem="local" code="*" /> <referenceRange> <observationRange> <text>< 5.7</text> </observationRange> </referenceRange > </observation> </component> </organizer> </entry> <entry> <organizer moodCode="EVN" classCode="BATTERY"> <templateId root= "2.16.840.1.836637.10..22.4.1" /> <id nullFlavor="NA" /> <code codeSystem="local" code="CBCD" displayName="CBC W/DIFF" /> <statusCode code ="completed" /> <component> <observation moodCode="EVN" classCode= "OBS"> <templateId root="2.16.840.1.537990.10..22.4.2" /> < id nullFlavor="NA" /> <code codeSystem="local" code="BA#" displayName= "BASOPHIL #" /> <statusCode code="completed" /> < effectiveTime value="121154346429" /> <value unit="k/cumm" xsi:type="PQ " value="0.1" /> <referenceRange> <observationRange> <text>0.0-0.2</text> </observationRange> </ referenceRange> </observation> </component> <component> <observation moodCode="EVN" classCode="OBS"> <templateId root= "2.16.840.1.260323.10..22.4.2" /> <id nullFlavor="NA" /> < code codeSystem="local" code="BA%" displayName="BASOPHIL %" /> <statusCode code="completed" /> <effectiveTime value="852972386312" /> <value unit="%" xsi:type="PQ" value="2" /> < interpretationCode codeSystem="local" code="*" /> <referenceRange> <observationRange> <text>0-1</text> </ observationRange> </referenceRange> </observation> </ component> <component> <observation moodCode="EVN" classCode="OBS"> <templateId root="07.12.840.1.659265.10.2022.4.2" /> <id nullFlavor="NA" /> <code codeSystem="local" code="EO#" displayName= "EOSINOPHIL #" /> <statusCode code="completed" /> < effectiveTime value="" /> <value unit="k/cumm" xsi:type="PQ " value="0.2" /> <referenceRange> <observationRange> <text>0.1-0.5</text> </observationRange> </ referenceRange> </observation> </component> <component> <observation moodCode="EVN" classCode="OBS"> <templateId root= "07.12.840.1.443790.22.4.2" /> <id nullFlavor="NA" /> < code codeSystem="local" code="EO%" displayName="EOSINOPHIL %" /> <statusCode code="completed" /> <effectiveTime value="" /> <value unit="%" xsi:type="PQ" value="2" /> < referenceRange> <observationRange> <text>2-4</text> </observationRange> </referenceRange> </observation> </component> <component> <observation moodCode="EVN" classCode= "OBS"> <templateId root="07.12.840.1.432500.10.2022.4.2" /> < id nullFlavor="NA" /> <code codeSystem="local" code="GR#" displayName= "GRANULOCYTE #" /> <statusCode code="completed" /> < effectiveTime value="" /> <value unit="k/cumm" xsi:type="PQ " value="3.4" /> <referenceRange> <observationRange> <text>2.0-9.0</text> </observationRange> </ referenceRange> </observation> </component> <component> <observation moodCode="EVN" classCode="OBS"> <templateId root= "16.840.1.302361.10..4.2" /> <id nullFlavor="NA" /> < code codeSystem="local" code="GR%" displayName="GRANULOCYTE %" /> <statusCode code="completed" /> <effectiveTime value="808529361885 " /> <value unit="%" xsi:type="PQ" value="51" /> < referenceRange> <observationRange> <text>50-75</text> </observationRange> </referenceRange> </observation> </component> <component> <observation moodCode="EVN" classCode= "OBS"> <templateId root="07.12.840.1.658525.03.15.22.4.2" /> < id nullFlavor="NA" /> <code codeSystem="local" code="LY#" displayName= "LYMPHOCYTE #" /> <statusCode code="completed" /> < effectiveTime value="007210179747" /> <value unit="k/cumm" xsi:type="PQ " value="2.6" /> <referenceRange> <observationRange> <text>1.0-4.0</text> </observationRange> </ referenceRange> </observation> </component> <component> <observation moodCode="EVN" classCode="OBS"> <templateId root= "07.12.840.1.600020.10.2022.4.2" /> <id nullFlavor="NA" /> < code codeSystem="local" code="LY%" displayName="LYMPHOCYTE %" /> <statusCode code="completed" /> <effectiveTime value="941052055645" /> <value unit="%" xsi:type="PQ" value="38" /> < interpretationCode codeSystem="local" code="*" /> <referenceRange> <observationRange> <text>20-30</text> </ observationRange> </referenceRange> </observation> </ component> <component> <observation moodCode="EVN" classCode="OBS"> <templateId root="216.840.1.273641.10.20.22.4.2" /> <id nullFlavor="NA" /> <code codeSystem="local" code="MCH" displayName= "MEAN CELL HGB" /> <statusCode code="completed" /> < effectiveTime value="576433015537" /> <value unit="pg" xsi:type="PQ" value="19.5" /> <interpretationCode codeSystem="local" code="*" /> <referenceRange> <observationRange> <text>27.0- 33.0</text> </observationRange> </referenceRange> </ observation> </component> <component> <observation moodCode= "EVN" classCode="OBS"> <templateId root="216.840.1.124248.10.20.22.4.2 " /> <id nullFlavor="NA" /> <code codeSystem="local" code= "MCHC" displayName="MEAN CELL HGB CONCENTRATION" /> <statusCode code= "completed" /> <effectiveTime value="176243221310" /> <value unit="g/dL" xsi:type="PQ" value="29.0" /> <interpretationCode codeSystem="local" code="*" /> <referenceRange> < observationRange> <text>32.0-37.0</text> </ observationRange> </referenceRange> </observation> </ component> <component> <observation moodCode="EVN" classCode="OBS"> <templateId root="16.840.1.560749.10.20.22.4.2" /> <id nullFlavor="NA" /> <code codeSystem="local" code="MCV" displayName= "MEAN CELL VOLUME" /> <statusCode code="completed" /> < effectiveTime value="" /> <value unit="fl" xsi:type="PQ" value="67.3" /> <interpretationCode codeSystem="local" code="*" /> <referenceRange> <observationRange> <text>80.0- 100.0</text> </observationRange> </referenceRange> </ observation> </component> <component> <observation moodCode= "EVN" classCode="OBS"> <templateId root="07.12.840.1.416133.03.15.22.4.2 " /> <id nullFlavor="NA" /> <code codeSystem="local" code="MO# " displayName="MONOCYTE #" /> <statusCode code="completed" /> <effectiveTime value="" /> <value unit="k/cumm" xsi:type= "PQ" value="0.5" /> <referenceRange> <observationRange> <text>0.1-1.0</text> </observationRange> </ referenceRange> </observation> </component> <component> <observation moodCode="EVN" classCode="OBS"> <templateId root= "16.840.1.810570.10.20.22.4.2" /> <id nullFlavor="NA" /> < code codeSystem="local" code="MO%" displayName="MONOCYTE %" /> <statusCode code="completed" /> <effectiveTime value="" /> <value unit="%" xsi:type="PQ" value="8" /> < interpretationCode codeSystem="local" code="*" /> <referenceRange> <observationRange> <text>4-6</text> </ observationRange> </referenceRange> </observation> </ component> <component> <observation moodCode="EVN" classCode="OBS"> <templateId root="16.840.1.038533.10.2022.4.2" /> <id nullFlavor="NA" /> <code codeSystem="local" code="OVAL" displayName= "OVALOCYTES" /> <statusCode code="completed" /> < effectiveTime value="" /> <value unit="" xsi:type="PQ" value="NOTED" /> <referenceRange> <observationRange> <text /> </observationRange> </referenceRange> </observation> </component> <component> <observation moodCode ="EVN" classCode="OBS"> <templateId root= "07.12.840.1.870480.10.22.4.2" /> <id nullFlavor="NA" /> < code codeSystem="local" code="RBC" displayName="RED BLOOD CELL" /> < statusCode code="completed" /> <effectiveTime value="" /> <value unit="m/cumm" xsi:type="PQ" value="4.46" /> < referenceRange> <observationRange> <text>4.00-6.00</text > </observationRange> </referenceRange> </observation > </component> <component> <observation moodCode="EVN" classCode="OBS"> <templateId root="07.12.840.1.466901.10.2022.4.2" /> <id nullFlavor="NA" /> <code codeSystem="local" code="RDW" displayName="RED CELL DISTRIBUTION WIDTH" /> <statusCode code= "completed" /> <effectiveTime value="073244982726" /> <value unit="%" xsi:type="PQ" value="23.1" /> <interpretationCode codeSystem="local" code="*" /> <referenceRange> < observationRange> <text>11.0-15.6</text> </ observationRange> </referenceRange> </observation> </ component> <component> <observation moodCode="EVN" classCode="OBS"> <templateId root="216.840.1.984939.10.20.22.4.2" /> <id nullFlavor="NA" /> <code codeSystem="local" code="WBC" displayName= "WHITE BLOOD CELL" /> <statusCode code="completed" /> < effectiveTime value="195845667622" /> <value unit="k/cumm" xsi:type="PQ " value="6.8" /> <referenceRange> <observationRange> <text>5.0-10.0</text> </observationRange> </ referenceRange> </observation> </component> <component> <observation moodCode="EVN" classCode="OBS"> <templateId root= "2.16.840.1.722253.10.20.22.4.2" /> <id nullFlavor="NA" /> < code codeSystem="local" code="HGBT" displayName="HEMOGLOBIN" /> < statusCode code="completed" /> <effectiveTime value="864479065646" /> <value unit="gm/dL" xsi:type="PQ" value="8.7" /> < interpretationCode codeSystem="local" code="*" /> <referenceRange> <observationRange> <text>12.0-16.0</text> </ observationRange> </referenceRange> </observation> </ component> <component> <observation moodCode="EVN" classCode="OBS"> <templateId root="2.16.840.1.120143.10..22.4.2" /> <id nullFlavor="NA" /> <code codeSystem="local" code="HCTT" displayName= "HEMATOCRIT" /> <statusCode code="completed" /> < effectiveTime value="878647192639" /> <value unit="%" xsi:type="PQ " value="30.0" /> <interpretationCode codeSystem="local" code="*" /> <referenceRange> <observationRange> <text>37.0- 47.0</text> </observationRange> </referenceRange> </ observation> </component> <component> <observation moodCode= "EVN" classCode="OBS"> <templateId root="216.840.1.186952.03.15.22.4.2 " /> <id nullFlavor="NA" /> <code codeSystem="local" code="PLT " displayName="PLATELET COUNT" /> <statusCode code="completed" /> <effectiveTime value="074247644059" /> <value unit="k/cumm" xsi: type="PQ" value="289" /> <referenceRange> <observationRange > <text>150-400</text> </observationRange> </ referenceRange> </observation> </component> </organizer> </entry > <entry> <organizer moodCode="EVN" classCode="BATTERY"> <templateId root="216.840.1.845743.10..22.4.1" /> <id nullFlavor="NA" /> <code codeSystem="local" code="MORPH" displayName="MORPHOLOGY" /> <statusCode code="completed" /> <component> <observation moodCode="EVN" classCode="OBS"> <templateId root="07.12.840.1.815297.10..4.2" /> <id nullFlavor="NA" /> <code codeSystem="local" code="RMORPH" displayName="RBC MORPH" /> <statusCode code="completed" /> < effectiveTime value="511713580488" /> <value unit="" xsi:type="PQ" value="NOTED" /> <referenceRange> <observationRange> <text /> </observationRange> </referenceRange> </observation> </component> </organizer> </entry> <entry> < organizer moodCode="EVN" classCode="BATTERY"> <templateId root= "07.12.840.1.706400.10.4.1" /> <id nullFlavor="NA" /> <code codeSystem="local" code="RENAL" displayName="RENAL FUNCTION PANEL" /> < statusCode code="completed" /> <component> <observation moodCode= "EVN" classCode="OBS"> <templateId root="840.1.128285...4.2 " /> <id nullFlavor="NA" /> <code codeSystem="local" code="K" displayName="POTASSIUM" /> <statusCode code="completed" /> < effectiveTime value="969135652527" /> <value unit="mmol/L" xsi:type="PQ " value="4.3" /> <referenceRange> <observationRange> <text>3.5-5.3</text> </observationRange> </ referenceRange> </observation> </component> <component> <observation moodCode="EVN" classCode="OBS"> <templateId root= "07.12.840.1.850895...22.4.2" /> <id nullFlavor="NA" /> < code codeSystem="local" code="eGFR" displayName="EST GFR (MDRD)" /> < statusCode code="completed" /> <effectiveTime value="" /> <value unit="mL/min" xsi:type="PQ" value="> 60" /> < referenceRange> <observationRange> <text>> 59</text> </observationRange> </referenceRange> </observation > </component> <component> <observation moodCode="EVN" classCode="OBS"> <templateId root="16.840.1.145810.10.20.22.4.2" /> <id nullFlavor="NA" /> <code codeSystem="local" code="GAP" displayName="ANION GAP" /> <statusCode code="completed" /> < effectiveTime value="" /> <value unit="mmol/L" xsi:type="PQ " value="8" /> <referenceRange> <observationRange> <text>5-15</text> </observationRange> </referenceRange > </observation> </component> <component> <observation moodCode="EVN" classCode="OBS"> <templateId root= "16.840.1.738816.10.20.22.4.2" /> <id nullFlavor="NA" /> < code codeSystem="local" code="eCrCl" displayName="EST CrCl (CG)" /> < statusCode code="completed" /> <effectiveTime value="655250564049" /> <value unit="mL/min" xsi:type="PQ" value="> 60" /> < referenceRange> <observationRange> <text>> 59</text> </observationRange> </referenceRange> </observation > </component> <component> <observation moodCode="EVN" classCode="OBS"> <templateId root="07.12.840.1.223729.1022.4.2" /> <id nullFlavor="NA" /> <code codeSystem="local" code="GLU" displayName="GLUCOSE" /> <statusCode code="completed" /> < effectiveTime value="941007984007" /> <value unit="mg/dL" xsi:type="PQ " value="84" /> <referenceRange> <observationRange> <text>70-99</text> </observationRange> </ referenceRange> </observation> </component> <component> <observation moodCode="EVN" classCode="OBS"> <templateId root= "07.12.840.1.896221.03.15.22.4.2" /> <id nullFlavor="NA" /> < code codeSystem="local" code="CA" displayName="CALCIUM" /> <statusCode code="completed" /> <effectiveTime value="" /> < value unit="mg/dL" xsi:type="PQ" value="8.4" /> <interpretationCode codeSystem="local" code="*" /> <referenceRange> < observationRange> <text>8.5-10.1</text> </ observationRange> </referenceRange> </observation> </ component> <component> <observation moodCode="EVN" classCode="OBS"> <templateId root="07.12.840.1.916535.1022.4.2" /> <id nullFlavor="NA" /> <code codeSystem="local" code="BUN" displayName= "BLOOD UREA NITROGEN" /> <statusCode code="completed" /> < effectiveTime value="" /> <value unit="mg/dL" xsi:type="PQ " value="15" /> <referenceRange> <observationRange> <text>7-20</text> </observationRange> </referenceRange > </observation> </component> <component> <observation moodCode="EVN" classCode="OBS"> <templateId root= "216.840.1.968757.1022.4.2" /> <id nullFlavor="NA" /> < code codeSystem="local" code="CREAT" displayName="CREATININE" /> < statusCode code="completed" /> <effectiveTime value="" /> <value unit="mg/dL" xsi:type="PQ" value="0.8" /> < referenceRange> <observationRange> <text>0.6-1.0</text> </observationRange> </referenceRange> </observation > </component> <component> <observation moodCode="EVN" classCode="OBS"> <templateId root="07.12.840.1.647666.22.4.2" /> <id nullFlavor="NA" /> <code codeSystem="local" code="NA" displayName="SODIUM" /> <statusCode code="completed" /> < effectiveTime value="" /> <value unit="mmol/L" xsi:type="PQ " value="140" /> <referenceRange> <observationRange> <text>135-148</text> </observationRange> </ referenceRange> </observation> </component> <component> <observation moodCode="EVN" classCode="OBS"> <templateId root= "07.12.840.1.938355.10.2022.4.2" /> <id nullFlavor="NA" /> < code codeSystem="local" code="CL" displayName="CHLORIDE" /> < statusCode code="completed" /> <effectiveTime value="074557112126" /> <value unit="mmol/L" xsi:type="PQ" value="104" /> < referenceRange> <observationRange> <text>98-110</text> </observationRange> </referenceRange> </observation> </component> <component> <observation moodCode="EVN" classCode ="OBS"> <templateId root="07.12.840.1.882277.10.20.22.4.2" /> < id nullFlavor="NA" /> <code codeSystem="local" code="CO2" displayName= "CARBON DIOXIDE" /> <statusCode code="completed" /> < effectiveTime value="130081727433" /> <value unit="mmol/L" xsi:type="PQ " value="28" /> <referenceRange> <observationRange> <text>21-32</text> </observationRange> </ referenceRange> </observation> </component> <component> <observation moodCode="EVN" classCode="OBS"> <templateId root= "07.12.840.1.375036.10...4.2" /> <id nullFlavor="NA" /> < code codeSystem="local" code="ALB" displayName="ALBUMIN" /> < statusCode code="completed" /> <effectiveTime value="910793029676" /> <value unit="gm/dL" xsi:type="PQ" value="3.2" /> < interpretationCode codeSystem="local" code="*" /> <referenceRange> <observationRange> <text>3.4-5.0</text> </ observationRange> </referenceRange> </observation> </ component> <component> <observation moodCode="EVN" classCode="OBS"> <templateId root="07.12.840.1.091550.10..22.4.2" /> <id nullFlavor="NA" /> <code codeSystem="local" code="PHOS" displayName= "PHOSPHORUS" /> <statusCode code="completed" /> < effectiveTime value="133729523739" /> <value unit="mg/dL" xsi:type="PQ " value="4.4" /> <referenceRange> <observationRange> <text>2.5-4.9</text> </observationRange> </ referenceRange> </observation> </component> </organizer> </entry > <entry> <organizer moodCode="EVN" classCode="BATTERY"> <templateId root="07.12.840.1.954516.10.20.22.4.1" /> <id nullFlavor="NA" /> <code codeSystem="local" code="HDLPRO" displayName="LIPID PANEL" /> <statusCode code="completed" /> <component> <observation moodCode="EVN" classCode="OBS"> <templateId root="07.12.840.1.383912.10.22.4.2" /> <id nullFlavor="NA" /> <code codeSystem="local" code="CHOL/HDL " displayName="CHOLESTEROL/HDL RATIO" /> <statusCode code="completed" / > <effectiveTime value="188985770137" /> <value unit="" xsi: type="PQ" value="2.4" /> <referenceRange> <observationRange > <text> < 5.0</text> </observationRange> </ referenceRange> </observation> </component> <component> <observation moodCode="EVN" classCode="OBS"> <templateId root= "07.12.840.1.561938.10.22.4.2" /> <id nullFlavor="NA" /> < code codeSystem="local" code="LDLX" displayName="LDL CHOLESTEROL" /> < statusCode code="completed" /> <effectiveTime value="" /> <value unit="mg/dL" xsi:type="PQ" value="83" /> < referenceRange> <observationRange> <text>< 100</text > </observationRange> </referenceRange> </observation > </component> <component> <observation moodCode="EVN" classCode="OBS"> <templateId root="16.840.1.340001.10.20.22.4.2" /> <id nullFlavor="NA" /> <code codeSystem="local" code="VLDL" displayName="VLDL CHOLESTEROL" /> <statusCode code="completed" /> <effectiveTime value="" /> <value unit="mg/dL" xsi: type="PQ" value="22" /> <referenceRange> <observationRange> <text>< 30</text> </observationRange> </ referenceRange> </observation> </component> <component> <observation moodCode="EVN" classCode="OBS"> <templateId root= "07.12.840.1.842039.10.22.4.2" /> <id nullFlavor="NA" /> < code codeSystem="local" code="TRIG" displayName="TRIGLYCERIDES" /> < statusCode code="completed" /> <effectiveTime value="659620917230" /> <value unit="mg/dL" xsi:type="PQ" value="111" /> < referenceRange> <observationRange> <text>< 150</text > </observationRange> </referenceRange> </observation > </component> <component> <observation moodCode="EVN" classCode="OBS"> <templateId root="07.12.840.1.152746.10.2022.4.2" /> <id nullFlavor="NA" /> <code codeSystem="local" code="CHOL" displayName="CHOLESTEROL" /> <statusCode code="completed" /> < effectiveTime value="" /> <value unit="mg/dL" xsi:type="PQ " value="182" /> <referenceRange> <observationRange> <text>< 200</text> </observationRange> </ referenceRange> </observation> </component> <component> <observation moodCode="EVN" classCode="OBS"> <templateId root= "16.840.1.239608.1022.4.2" /> <id nullFlavor="NA" /> < code codeSystem="local" code="HDL" displayName="HDL CHOLESTEROL" /> < statusCode code="completed" /> <effectiveTime value="" /> <value unit="mg/dL" xsi:type="PQ" value="77" /> < referenceRange> <observationRange> <text>> 39</text> </observationRange> </referenceRange> </observation > </component> </organizer> </entry> <entry> <organizer moodCode= "EVN" classCode="BATTERY"> <templateId root="216.840.1.157165.22.4.1 " /> <id nullFlavor="NA" /> <code codeSystem="local" code="MAG" displayName="MAGNESIUM" /> <statusCode code="completed" /> <component > <observation moodCode="EVN" classCode="OBS"> <templateId root= "16.840.1.466885.102022.4.2" /> <id nullFlavor="NA" /> < code codeSystem="local" code="MAG" displayName="MAGNESIUM" /> < statusCode code="completed" /> <effectiveTime value="" /> <value unit="mg/dL" xsi:type="PQ" value="2.0" /> < referenceRange> <observationRange> <text>1.8-2.4</text> </observationRange> </referenceRange> </observation > </component> </organizer> </entry> <entry> <organizer moodCode= "EVN" classCode="BATTERY"> <templateId root="07.12.840.1.980081.10.22.4.1 " /> <id nullFlavor="NA" /> <code codeSystem="local" code="TROPI" displayName="TROPONIN I" /> <statusCode code="completed" /> <component > <observation moodCode="EVN" classCode="OBS"> <templateId root= "840.1.512039.03.15.22.4.2" /> <id nullFlavor="NA" /> < code codeSystem="local" code="TROPI" displayName="TROPONIN I" /> < statusCode code="completed" /> <effectiveTime value="370311844120" /> <value unit="ng/mL" xsi:type="PQ" value="< 0.02" /> < referenceRange> <observationRange> <text>< 0.07</text > </observationRange> </referenceRange> </observation > </component> </organizer> </entry> <entry> <organizer moodCode= "EVN" classCode="BATTERY"> <templateId root="840.1.894189.22.4.1 " /> <id nullFlavor="NA" /> <code codeSystem="local" code="CBCD" displayName="CBC W/DIFF" /> <statusCode code="completed" /> <component > <observation moodCode="EVN" classCode="OBS"> <templateId root= "07.12.840.1.208239.10..4.2" /> <id nullFlavor="NA" /> < code codeSystem="local" code="BA#" displayName="BASOPHIL #" /> < statusCode code="completed" /> <effectiveTime value="" /> <value unit="k/cumm" xsi:type="PQ" value="0.1" /> < referenceRange> <observationRange> <text>0.0-0.2</text> </observationRange> </referenceRange> </observation > </component> <component> <observation moodCode="EVN" classCode="OBS"> <templateId root="216.840.1.642199.10...4.2" /> <id nullFlavor="NA" /> <code codeSystem="local" code="BA% " displayName="BASOPHIL %" /> <statusCode code="completed" /> <effectiveTime value="577771315633" /> <value unit="%" xsi: type="PQ" value="2" /> <interpretationCode codeSystem="local" code="*" /> <referenceRange> <observationRange> <text>0- 1</text> </observationRange> </referenceRange> </ observation> </component> <component> <observation moodCode= "EVN" classCode="OBS"> <templateId root="216.840.1.862414.10.20.22.4.2 " /> <id nullFlavor="NA" /> <code codeSystem="local" code="EO# " displayName="EOSINOPHIL #" /> <statusCode code="completed" /> <effectiveTime value="979031027708" /> <value unit="k/cumm" xsi:type ="PQ" value="0.1" /> <referenceRange> <observationRange> <text>0.1-0.5</text> </observationRange> </ referenceRange> </observation> </component> <component> <observation moodCode="EVN" classCode="OBS"> <templateId root= "216.840.1.807448.10..4.2" /> <id nullFlavor="NA" /> < code codeSystem="local" code="EO%" displayName="EOSINOPHIL %" /> <statusCode code="completed" /> <effectiveTime value="" /> <value unit="%" xsi:type="PQ" value="1" /> < interpretationCode codeSystem="local" code="*" /> <referenceRange> <observationRange> <text>2-4</text> </ observationRange> </referenceRange> </observation> </ component> <component> <observation moodCode="EVN" classCode="OBS"> <templateId root="07.12.840.1.703398.03.15.224.2" /> <id nullFlavor="NA" /> <code codeSystem="local" code="GR#" displayName= "GRANULOCYTE #" /> <statusCode code="completed" /> < effectiveTime value="" /> <value unit="k/cumm" xsi:type="PQ " value="4.7" /> <referenceRange> <observationRange> <text>2.0-9.0</text> </observationRange> </ referenceRange> </observation> </component> <component> <observation moodCode="EVN" classCode="OBS"> <templateId root= "216.840.1.289008.1022.4.2" /> <id nullFlavor="NA" /> < code codeSystem="local" code="GR%" displayName="GRANULOCYTE %" /> <statusCode code="completed" /> <effectiveTime value=" " /> <value unit="%" xsi:type="PQ" value="62" /> < referenceRange> <observationRange> <text>50-75</text> </observationRange> </referenceRange> </observation> </component> <component> <observation moodCode="EVN" classCode= "OBS"> <templateId root="216.840.1.049223.10...4.2" /> < id nullFlavor="NA" /> <code codeSystem="local" code="LY#" displayName= "LYMPHOCYTE #" /> <statusCode code="completed" /> < effectiveTime value="785414316374" /> <value unit="k/cumm" xsi:type="PQ " value="2.0" /> <referenceRange> <observationRange> <text>1.0-4.0</text> </observationRange> </ referenceRange> </observation> </component> <component> <observation moodCode="EVN" classCode="OBS"> <templateId root= "216.840.1.591181.10..4.2" /> <id nullFlavor="NA" /> < code codeSystem="local" code="LY%" displayName="LYMPHOCYTE %" /> <statusCode code="completed" /> <effectiveTime value="259756858529" /> <value unit="%" xsi:type="PQ" value="27" /> < referenceRange> <observationRange> <text>20-30</text> </observationRange> </referenceRange> </observation> </component> <component> <observation moodCode="EVN" classCode= "OBS"> <templateId root="216.840.1.389825.10..22.4.2" /> < id nullFlavor="NA" /> <code codeSystem="local" code="MCH" displayName= "MEAN CELL HGB" /> <statusCode code="completed" /> < effectiveTime value="" /> <value unit="pg" xsi:type="PQ" value="19.6" /> <interpretationCode codeSystem="local" code="*" /> <referenceRange> <observationRange> <text>27.0- 33.0</text> </observationRange> </referenceRange> </ observation> </component> <component> <observation moodCode= "EVN" classCode="OBS"> <templateId root="216.840.1.634977.10..4.2 " /> <id nullFlavor="NA" /> <code codeSystem="local" code= "MCHC" displayName="MEAN CELL HGB CONCENTRATION" /> <statusCode code= "completed" /> <effectiveTime value="" /> <value unit="g/dL" xsi:type="PQ" value="29.0" /> <interpretationCode codeSystem="local" code="*" /> <referenceRange> < observationRange> <text>32.0-37.0</text> </ observationRange> </referenceRange> </observation> </ component> <component> <observation moodCode="EVN" classCode="OBS"> <templateId root="16.840.1.034883.1022.4.2" /> <id nullFlavor="NA" /> <code codeSystem="local" code="MCV" displayName= "MEAN CELL VOLUME" /> <statusCode code="completed" /> < effectiveTime value="" /> <value unit="fl" xsi:type="PQ" value="67.7" /> <interpretationCode codeSystem="local" code="*" /> <referenceRange> <observationRange> <text>80.0- 100.0</text> </observationRange> </referenceRange> </ observation> </component> <component> <observation moodCode= "EVN" classCode="OBS"> <templateId root="07.12.840.1.224690.10.20.22.4.2 " /> <id nullFlavor="NA" /> <code codeSystem="local" code="MO# " displayName="MONOCYTE #" /> <statusCode code="completed" /> <effectiveTime value="377478164994" /> <value unit="k/cumm" xsi:type= "PQ" value="0.6" /> <referenceRange> <observationRange> <text>0.1-1.0</text> </observationRange> </ referenceRange> </observation> </component> <component> <observation moodCode="EVN" classCode="OBS"> <templateId root= "07.12.840.1.840508.03.15.22.4.2" /> <id nullFlavor="NA" /> < code codeSystem="local" code="MO%" displayName="MONOCYTE %" /> <statusCode code="completed" /> <effectiveTime value="695349414043" /> <value unit="%" xsi:type="PQ" value="8" /> < interpretationCode codeSystem="local" code="*" /> <referenceRange> <observationRange> <text>4-6</text> </ observationRange> </referenceRange> </observation> </ component> <component> <observation moodCode="EVN" classCode="OBS"> <templateId root="07.12.840.1.250140.10..4.2" /> <id nullFlavor="NA" /> <code codeSystem="local" code="OVAL" displayName= "OVALOCYTES" /> <statusCode code="completed" /> < effectiveTime value="" /> <value unit="" xsi:type="PQ" value="NOTED" /> <referenceRange> <observationRange> <text /> </observationRange> </referenceRange> </observation> </component> <component> <observation moodCode ="EVN" classCode="OBS"> <templateId root= "216.840.1.828621.03.15.22.4.2" /> <id nullFlavor="NA" /> < code codeSystem="local" code="RBC" displayName="RED BLOOD CELL" /> < statusCode code="completed" /> <effectiveTime value="" /> <value unit="m/cumm" xsi:type="PQ" value="4.33" /> < referenceRange> <observationRange> <text>4.00-6.00</text > </observationRange> </referenceRange> </observation > </component> <component> <observation moodCode="EVN" classCode="OBS"> <templateId root="216.840.1.328683.10.4.2" /> <id nullFlavor="NA" /> <code codeSystem="local" code="RDW" displayName="RED CELL DISTRIBUTION WIDTH" /> <statusCode code= "completed" /> <effectiveTime value="" /> <value unit="%" xsi:type="PQ" value="22.9" /> <interpretationCode codeSystem="local" code="*" /> <referenceRange> < observationRange> <text>11.0-15.6</text> </ observationRange> </referenceRange> </observation> </ component> <component> <observation moodCode="EVN" classCode="OBS"> <templateId root="216.840.1.618377.03.15.22.4.2" /> <id nullFlavor="NA" /> <code codeSystem="local" code="SPH" displayName= "SPHEROCYTES" /> <statusCode code="completed" /> < effectiveTime value="" /> <value unit="" xsi:type="PQ" value="NOTED" /> <referenceRange> <observationRange> <text /> </observationRange> </referenceRange> </observation> </component> <component> <observation moodCode ="EVN" classCode="OBS"> <templateId root= "16.840.1.361099.03.15.22.4.2" /> <id nullFlavor="NA" /> < code codeSystem="local" code="WBC" displayName="WHITE BLOOD CELL" /> < statusCode code="completed" /> <effectiveTime value="" /> <value unit="k/cumm" xsi:type="PQ" value="7.6" /> < referenceRange> <observationRange> <text>5.0-10.0</text > </observationRange> </referenceRange> </observation > </component> <component> <observation moodCode="EVN" classCode="OBS"> <templateId root="16.840.1.715107.03.15.22.4.2" /> <id nullFlavor="NA" /> <code codeSystem="local" code="HGBT" displayName="HEMOGLOBIN" /> <statusCode code="completed" /> < effectiveTime value="" /> <value unit="gm/dL" xsi:type="PQ " value="8.5" /> <interpretationCode codeSystem="local" code="*" /> <referenceRange> <observationRange> <text>12.0- 16.0</text> </observationRange> </referenceRange> </ observation> </component> <component> <observation moodCode= "EVN" classCode="OBS"> <templateId root="216.840.1.646594.10..22.4.2 " /> <id nullFlavor="NA" /> <code codeSystem="local" code= "HCTT" displayName="HEMATOCRIT" /> <statusCode code="completed" /> <effectiveTime value="" /> <value unit="%" xsi: type="PQ" value="29.3" /> <interpretationCode codeSystem="local" code= "*" /> <referenceRange> <observationRange> < text>37.0-47.0</text> </observationRange> </referenceRange> </observation> </component> <component> <observation moodCode="EVN" classCode="OBS"> <templateId root= "216.840.1.276593.10..4.2" /> <id nullFlavor="NA" /> < code codeSystem="local" code="PLT" displayName="PLATELET COUNT" /> < statusCode code="completed" /> <effectiveTime value="001560819776" /> <value unit="k/cumm" xsi:type="PQ" value="298" /> < referenceRange> <observationRange> <text>150-400</text> </observationRange> </referenceRange> </observation > </component> </organizer> </entry> <entry> <organizer moodCode= "EVN" classCode="BATTERY"> <templateId root="216.840.1.505559.10...4.1 " /> <id nullFlavor="NA" /> <code codeSystem="local" code="RENAL" displayName="RENAL FUNCTION PANEL" /> <statusCode code="completed" /> <component> <observation moodCode="EVN" classCode="OBS"> < templateId root="16.840.1.770547.10..22.4.2" /> <id nullFlavor="NA " /> <code codeSystem="local" code="K" displayName="POTASSIUM" /> <statusCode code="completed" /> <effectiveTime value="511779482461 " /> <value unit="mmol/L" xsi:type="PQ" value="3.8" /> < referenceRange> <observationRange> <text>3.5-5.3</text> </observationRange> </referenceRange> </observation > </component> <component> <observation moodCode="EVN" classCode="OBS"> <templateId root="16.840.1.143274.10..4.2" /> <id nullFlavor="NA" /> <code codeSystem="local" code="eGFR" displayName="EST GFR (MDRD)" /> <statusCode code="completed" /> <effectiveTime value="335601580128" /> <value unit="mL/min" xsi:type ="PQ" value="> 60" /> <referenceRange> <observationRange > <text>> 59</text> </observationRange> </ referenceRange> </observation> </component> <component> <observation moodCode="EVN" classCode="OBS"> <templateId root= "07.12.840.1.687828.10..22.4.2" /> <id nullFlavor="NA" /> < code codeSystem="local" code="GAP" displayName="ANION GAP" /> < statusCode code="completed" /> <effectiveTime value="909543959465" /> <value unit="mmol/L" xsi:type="PQ" value="9" /> < referenceRange> <observationRange> <text>5-15</text> </observationRange> </referenceRange> </observation> </component> <component> <observation moodCode="EVN" classCode= "OBS"> <templateId root="216.840.1.377476.10..4.2" /> < id nullFlavor="NA" /> <code codeSystem="local" code="eCrCl" displayName ="EST CrCl (CG)" /> <statusCode code="completed" /> < effectiveTime value="247879080480" /> <value unit="mL/min" xsi:type="PQ " value="> 60" /> <referenceRange> <observationRange> <text>> 59</text> </observationRange> </ referenceRange> </observation> </component> <component> <observation moodCode="EVN" classCode="OBS"> <templateId root= "07.12.840.1.635596.03.15.22.4.2" /> <id nullFlavor="NA" /> < code codeSystem="local" code="GLU" displayName="GLUCOSE" /> < statusCode code="completed" /> <effectiveTime value="" /> <value unit="mg/dL" xsi:type="PQ" value="83" /> < referenceRange> <observationRange> <text>70-99</text> </observationRange> </referenceRange> </observation> </component> <component> <observation moodCode="EVN" classCode= "OBS"> <templateId root="07.12.840.1.214975.10..4.2" /> < id nullFlavor="NA" /> <code codeSystem="local" code="CA" displayName= "CALCIUM" /> <statusCode code="completed" /> <effectiveTime value="889155366170" /> <value unit="mg/dL" xsi:type="PQ" value="8.4" / > <interpretationCode codeSystem="local" code="*" /> < referenceRange> <observationRange> <text>8.5-10.1</text > </observationRange> </referenceRange> </observation > </component> <component> <observation moodCode="EVN" classCode="OBS"> <templateId root="16.840.1.838950.03.15.22.4.2" /> <id nullFlavor="NA" /> <code codeSystem="local" code="BUN" displayName="BLOOD UREA NITROGEN" /> <statusCode code="completed" /> <effectiveTime value="666149553788" /> <value unit="mg/dL" xsi: type="PQ" value="9" /> <referenceRange> <observationRange> <text>7-20</text> </observationRange> </ referenceRange> </observation> </component> <component> <observation moodCode="EVN" classCode="OBS"> <templateId root= "07.12.840.1.169141.03.15.22.4.2" /> <id nullFlavor="NA" /> < code codeSystem="local" code="CREAT" displayName="CREATININE" /> < statusCode code="completed" /> <effectiveTime value="103510317681" /> <value unit="mg/dL" xsi:type="PQ" value="0.7" /> < referenceRange> <observationRange> <text>0.6-1.0</text> </observationRange> </referenceRange> </observation > </component> <component> <observation moodCode="EVN" classCode="OBS"> <templateId root="16.840.1.303515...4.2" /> <id nullFlavor="NA" /> <code codeSystem="local" code="NA" displayName="SODIUM" /> <statusCode code="completed" /> < effectiveTime value="126143307265" /> <value unit="mmol/L" xsi:type="PQ " value="140" /> <referenceRange> <observationRange> <text>135-148</text> </observationRange> </ referenceRange> </observation> </component> <component> <observation moodCode="EVN" classCode="OBS"> <templateId root= "216.840.1.114127.10.20.22.4.2" /> <id nullFlavor="NA" /> < code codeSystem="local" code="CL" displayName="CHLORIDE" /> < statusCode code="completed" /> <effectiveTime value="709339091114" /> <value unit="mmol/L" xsi:type="PQ" value="104" /> < referenceRange> <observationRange> <text>98-110</text> </observationRange> </referenceRange> </observation> </component> <component> <observation moodCode="EVN" classCode ="OBS"> <templateId root="216.840.1.600494.10.20.22.4.2" /> < id nullFlavor="NA" /> <code codeSystem="local" code="CO2" displayName= "CARBON DIOXIDE" /> <statusCode code="completed" /> < effectiveTime value="119314743180" /> <value unit="mmol/L" xsi:type="PQ " value="27" /> <referenceRange> <observationRange> <text>21-32</text> </observationRange> </ referenceRange> </observation> </component> <component> <observation moodCode="EVN" classCode="OBS"> <templateId root= "840.1.380508.03.15.22.4.2" /> <id nullFlavor="NA" /> < code codeSystem="local" code="ALB" displayName="ALBUMIN" /> < statusCode code="completed" /> <effectiveTime value="553766335924" /> <value unit="gm/dL" xsi:type="PQ" value="3.2" /> < interpretationCode codeSystem="local" code="*" /> <referenceRange> <observationRange> <text>3.4-5.0</text> </ observationRange> </referenceRange> </observation> </ component> <component> <observation moodCode="EVN" classCode="OBS"> <templateId root="840.1.774111.03.15.22.4.2" /> <id nullFlavor="NA" /> <code codeSystem="local" code="PHOS" displayName= "PHOSPHORUS" /> <statusCode code="completed" /> < effectiveTime value="509408189907" /> <value unit="mg/dL" xsi:type="PQ " value="3.6" /> <referenceRange> <observationRange> <text>2.5-4.9</text> </observationRange> </ referenceRange> </observation> </component> </organizer> </entry > <entry> <organizer moodCode="EVN" classCode="BATTERY"> <templateId root="840.1.421869.1022.4.1" /> <id nullFlavor="NA" /> <code codeSystem="local" code="MAG" displayName="MAGNESIUM" /> <statusCode code= "completed" /> <component> <observation moodCode="EVN" classCode= "OBS"> <templateId root="840.1.106967.10.20.22.4.2" /> < id nullFlavor="NA" /> <code codeSystem="local" code="MAG" displayName= "MAGNESIUM" /> <statusCode code="completed" /> <effectiveTime value="348881966555" /> <value unit="mg/dL" xsi:type="PQ" value="2.1" / > <referenceRange> <observationRange> <text>1.8 -2.4</text> </observationRange> </referenceRange> </ observation> </component> </organizer> </entry> <entry> <organizer moodCode="EVN" classCode="BATTERY"> <templateId root= "16.840.1.802167.03.15.22.4.1" /> <id nullFlavor="NA" /> <code codeSystem="local" code="CBC" displayName="CBC" /> <statusCode code= "completed" /> <component> <observation moodCode="EVN" classCode= "OBS"> <templateId root="16.840.1.164573.10..4.2" /> < id nullFlavor="NA" /> <code codeSystem="local" code="MCH" displayName= "MEAN CELL HGB" /> <statusCode code="completed" /> < effectiveTime value="[id number]" /> <value xsi:type="ST" value="<pre> <b>CBC</b> 6.84.4212.439.188.528.698.719.1814</pre>" /> <referenceRange > <observationRange> <text>27.0-33.0</text> < /observationRange> </referenceRange> </observation> </ component> <component> <observation moodCode="EVN" classCode="OBS"> <templateId root="16.840.1.964428.03.15.22.4.2" /> <id nullFlavor="NA" /> <code codeSystem="local" code="MCHC" displayName= "MEAN CELL HGB CONCENTRATION" /> <statusCode code="completed" /> <effectiveTime value="" /> <value xsi:type="ST" value= "<pre><b>CBC</b> 6.84.4212.439.188.528.536.474.3169</pre>" /> < interpretationCode codeSystem="local" code="*" /> <referenceRange> <observationRange> <text>32.0-37.0</text> </ observationRange> </referenceRange> </observation> </ component> <component> <observation moodCode="EVN" classCode="OBS"> <templateId root="216.840.1.948436.10...4.2" /> <id nullFlavor="NA" /> <code codeSystem="local" code="MCV" displayName= "MEAN CELL VOLUME" /> <statusCode code="completed" /> < effectiveTime value="" /> <value xsi:type="ST" value="<pre> <b>CBC</b> 6.84.4212.439.188.528.960.713.4510</pre>" /> <referenceRange > <observationRange> <text>80.0-100.0</text> </observationRange> </referenceRange> </observation> </ component> <component> <observation moodCode="EVN" classCode="OBS"> <templateId root="16.840.1.713620.10.20.22.4.2" /> <id nullFlavor="NA" /> <code codeSystem="local" code="RBC" displayName=" RED BLOOD CELL" /> <statusCode code="completed" /> < effectiveTime value="" /> <value xsi:type="ST" value="<pre> <b>CBC</b> 6.439.188.528.116.185.4851</pre>" /> <referenceRange > <observationRange> <text>4.00-6.00</text> < /observationRange> </referenceRange> </observation> </ component> <component> <observation moodCode="EVN" classCode="OBS"> <templateId root="216.840.1.966274.10.20.22.4.2" /> <id nullFlavor="NA" /> <code codeSystem="local" code="RDW" displayName=" RED CELL DISTRIBUTION WIDTH" /> <statusCode code="completed" /> <effectiveTime value="304880074720" /> <value xsi:type="ST" value="< pre><b>CBC</b> .439.188.528.328.634.0556</pre>" /> < referenceRange> <observationRange> <text>11.0-15.6</text > </observationRange> </referenceRange> </observation > </component> <component> <observation moodCode="EVN" classCode="OBS"> <templateId root="2.16.840.1.798679.10..22.4.2" /> <id nullFlavor="NA" /> <code codeSystem="local" code="WBC" displayName="WHITE BLOOD CELL" /> <statusCode code="completed" /> <effectiveTime value="832579723272" /> <value xsi:type="ST" value= "<pre><b>CBC</b> 6..439.188.528.583.644.0920</pre>" /> < referenceRange> <observationRange> <text>5.0-10.0</text > </observationRange> </referenceRange> </observation > </component> <component> <observation moodCode="EVN" classCode="OBS"> <templateId root="216.840.1.534666.10.22.4.2" /> <id nullFlavor="NA" /> <code codeSystem="local" code="HGBT" displayName="HEMOGLOBIN" /> <statusCode code="completed" /> < effectiveTime value="[id number]" /> <value xsi:type="ST" value="<pre> <b>CBC</b> 6.4212.439.188.528.760.392.9762</pre>" /> <referenceRange > <observationRange> <text>12.0-16.0</text> < /observationRange> </referenceRange> </observation> </ component> <component> <observation moodCode="EVN" classCode="OBS"> <templateId root="216.840.1.739462.10..4.2" /> <id nullFlavor="NA" /> <code codeSystem="local" code="HCTT" displayName= "HEMATOCRIT" /> <statusCode code="completed" /> < effectiveTime value="889746375414" /> <value xsi:type="ST" value="<pre> <b>CBC</b> 6.84.439.188.528.669.578.5832</pre>" /> <referenceRange > <observationRange> <text>37.0-47.0</text> < /observationRange> </referenceRange> </observation> </ component> <component> <observation moodCode="EVN" classCode="OBS"> <templateId root="216.840.1.831283.10.20.22.4.2" /> <id nullFlavor="NA" /> <code codeSystem="local" code="PLT" displayName= "PLATELET COUNT" /> <statusCode code="completed" /> < effectiveTime value="247449495165" /> <value xsi:type="ST" value="<pre> <b>CBC</b> 6.84.4212.439.188.528.727.723.1249</pre>" /> <referenceRange > <observationRange> <text>150-400</text> </ observationRange> </referenceRange> </observation> </ component> <component> <observation moodCode="EVN" classCode="OBS"> <templateId root="07.12.840.1.848312.10.22.4.2" /> <id nullFlavor="NA" /> <code codeSystem="local" code="MB" displayName= "Microbiology" /> <statusCode code="completed" /> < effectiveTime value="716543892610" /> <value xsi:type="ST" value="<pre> <b>CBC</b> 6.84.4212.439.188.528.327.383.1186</pre>" /> <referenceRange > <observationRange> <text /> </ observationRange> </referenceRange> </observation> </ component> </organizer> </entry> <entry> <organizer moodCode="EVN" classCode="BATTERY"> <templateId root="07.12.840.1.511000.10..22.4.1" /> <id nullFlavor="NA" /> <code codeSystem="local" code="LIVER" displayName="HEPATIC FUNCTION PANEL" /> <statusCode code="completed" /> <component> <observation moodCode="EVN" classCode="OBS"> < templateId root="07.12.840.1.434397.10.20.22.4.2" /> <id nullFlavor="NA " /> <code codeSystem="local" code="BILUC" displayName="BILI UNCONJUGATED" /> <statusCode code="completed" /> < effectiveTime value="" /> <value unit="mg/dL" xsi:type="PQ " value="0.0" /> <referenceRange> <observationRange> <text>0.0-0.7</text> </observationRange> </ referenceRange> </observation> </component> <component> <observation moodCode="EVN" classCode="OBS"> <templateId root= "2.16.840.1.242103.10..22.4.2" /> <id nullFlavor="NA" /> < code codeSystem="local" code="AST" displayName="AST/SGOT" /> < statusCode code="completed" /> <effectiveTime value="" /> <value unit="Units/L" xsi:type="PQ" value="14" /> < referenceRange> <observationRange> <text>10-37</text> </observationRange> </referenceRange> </observation> </component> <component> <observation moodCode="EVN" classCode= "OBS"> <templateId root="216.840.1.904054.10..22.4.2" /> < id nullFlavor="NA" /> <code codeSystem="local" code="ALT" displayName= "ALT/SGPT" /> <statusCode code="completed" /> <effectiveTime value="" /> <value unit="Units/L" xsi:type="PQ" value="16" /> <referenceRange> <observationRange> <text>& lt; 66</text> </observationRange> </referenceRange> < /observation> </component> <component> <observation moodCode= "EVN" classCode="OBS"> <templateId root="16.840.1.535831.10.22.4.2 " /> <id nullFlavor="NA" /> <code codeSystem="local" code="TP " displayName="TOTAL PROTEIN" /> <statusCode code="completed" /> <effectiveTime value="" /> <value unit="gm/dL" xsi:type ="PQ" value="7.1" /> <referenceRange> <observationRange> <text>6.4-8.2</text> </observationRange> </ referenceRange> </observation> </component> <component> <observation moodCode="EVN" classCode="OBS"> <templateId root= "07.12.840.1.046305.22.4.2" /> <id nullFlavor="NA" /> < code codeSystem="local" code="ALB" displayName="ALBUMIN" /> < statusCode code="completed" /> <effectiveTime value="" /> <value unit="gm/dL" xsi:type="PQ" value="3.6" /> < referenceRange> <observationRange> <text>3.4-5.0</text> </observationRange> </referenceRange> </observation > </component> <component> <observation moodCode="EVN" classCode="OBS"> <templateId root="07.12.840.1.940531.10.2022.4.2" /> <id nullFlavor="NA" /> <code codeSystem="local" code="BILTOT" displayName="BILI TOTAL" /> <statusCode code="completed" /> < effectiveTime value="" /> <value unit="mg/dL" xsi:type="PQ " value="0.1" /> <referenceRange> <observationRange> <text>0.0-1.0</text> </observationRange> </ referenceRange> </observation> </component> <component> <observation moodCode="EVN" classCode="OBS"> <templateId root= "216.840.1.131246.10.4.2" /> <id nullFlavor="NA" /> < code codeSystem="local" code="ALKP" displayName="ALKALINE PHOSPHATASE TOTAL" /> <statusCode code="completed" /> <effectiveTime value= "" /> <value unit="IU/L" xsi:type="PQ" value="74" /> <referenceRange> <observationRange> <text>45-117</ text> </observationRange> </referenceRange> </ observation> </component> <component> <observation moodCode= "EVN" classCode="OBS"> <templateId root="07.12.840.1.887610.03.15.224.2 " /> <id nullFlavor="NA" /> <code codeSystem="local" code= "BILC" displayName="BILI CONJUGATED" /> <statusCode code="completed" / > <effectiveTime value="" /> <value unit="mg/dL" xsi:type="PQ" value="0.1" /> <referenceRange> < observationRange> <text>0.0-0.3</text> </ observationRange> </referenceRange> </observation> </ component> <component> <observation moodCode="EVN" classCode="OBS"> <templateId root="07.12.840.1.711944.03.15.22.4.2" /> <id nullFlavor="NA" /> <code codeSystem="local" code="MB" displayName= "Microbiology" /> <statusCode code="completed" /> < effectiveTime value="" /> <value unit="" xsi:type="PQ" value="" /> <referenceRange> <observationRange> <text /> </observationRange> </referenceRange> </ observation> </component> </organizer> </entry> <entry> <organizer moodCode="EVN" classCode="BATTERY"> <templateId root= "16.840.1.431919.10.22.4.1" /> <id nullFlavor="NA" /> <code codeSystem="local" code="LIP" displayName="LIPASE" /> <statusCode code= "completed" /> <component> <observation moodCode="EVN" classCode= "OBS"> <templateId root="840.1.131112.03.15.22.4.2" /> < id nullFlavor="NA" /> <code codeSystem="local" code="LIP" displayName= "LIPASE" /> <statusCode code="completed" /> <effectiveTime value="603853904925" /> <value unit="Units/L" xsi:type="PQ" value="203 " /> <referenceRange> <observationRange> <text> 73-393</text> </observationRange> </referenceRange> < /observation> </component> </organizer> </entry> <entry> < organizer moodCode="EVN" classCode="BATTERY"> <templateId root= "07.12.840.1.933913.22.4.1" /> <id nullFlavor="NA" /> <code codeSystem="local" code="iCHEM8" displayName="CHEM/HEM PROFILE-BEDSIDE" /> <statusCode code="completed" /> <component> <observation moodCode= "EVN" classCode="OBS"> <templateId root="07.12.840.1.334409.10.22.4.2 " /> <id nullFlavor="NA" /> <code codeSystem="local" code="K" displayName="POTASSIUM" /> <statusCode code="completed" /> < effectiveTime value="" /> <value xsi:type="ST" value="<pre> <b>CHEM/HEM PROFILE-BEDSIDE</b> Ilelkuh803Ugxyhyd5715.2916048227072.54.6</ pre>" /> <referenceRange> <observationRange> < text>3.5-5.3</text> </observationRange> </referenceRange> </observation> </component> <component> <observation moodCode="EVN" classCode="OBS"> <templateId root= "2.16.840.1.304449.10..22.4.2" /> <id nullFlavor="NA" /> < code codeSystem="local" code="CMETHOD" displayName="METHOD" /> < statusCode code="completed" /> <effectiveTime value="703577969920" /> <value xsi:type="ST" value="<pre><b>CHEM/HEM PROFILE-BEDSIDE</b> Kcmphng04.9Tasiwak4186.7190955400058.54.6</pre>" /> <referenceRange > <observationRange> <text /> </ observationRange> </referenceRange> </observation> </ component> <component> <observation moodCode="EVN" classCode="OBS"> <templateId root="2.16.840.1.933415.10..22.4.2" /> <id nullFlavor="NA" /> <code codeSystem="local" code="GAP" displayName= "ANION GAP" /> <statusCode code="completed" /> <effectiveTime value="" /> <value xsi:type="ST" value="<pre><b>CHEM/HEM PROFILE-BEDSIDE</b> Ledezsb73.2Ipbfvcp0250.1352731220510.54.6</pre>" /> <referenceRange> <observationRange> <text>10-20</ text> </observationRange> </referenceRange> </ observation> </component> <component> <observation moodCode= "EVN" classCode="OBS"> <templateId root="2.16.840.1.306815.10..22.4.2 " /> <id nullFlavor="NA" /> <code codeSystem="local" code= "HMETHOD" displayName="METHOD" /> <statusCode code="completed" /> <effectiveTime value="881914319467" /> <value xsi:type="ST" value= "<pre><b>CHEM/HEM PROFILE-BEDSIDE</b> Footyfj43339.3Rowiahx5779.7730663155833.54.6</pre>" /> <referenceRange > <observationRange> <text /> </ observationRange> </referenceRange> </observation> </ component> <component> <observation moodCode="EVN" classCode="OBS"> <templateId root="2.16.840.1.891516.10..22.4.2" /> <id nullFlavor="NA" /> <code codeSystem="local" code="GLU" displayName= "GLUCOSE" /> <statusCode code="completed" /> <effectiveTime value="" /> <value xsi:type="ST" value="<pre><b>CHEM/HEM PROFILE-BEDSIDE</b> Tjoqqgq38.4Jbrdenw0873.9316737670666.54.6</pre>" /> <interpretationCode codeSystem="local" code="*" /> < referenceRange> <observationRange> <text>70-99</text> </observationRange> </referenceRange> </observation> </component> <component> <observation moodCode="EVN" classCode= "OBS"> <templateId root="216.840.1.066548.10..22.4.2" /> < id nullFlavor="NA" /> <code codeSystem="local" code="BUN" displayName= "BLOOD UREA NITROGEN" /> <statusCode code="completed" /> < effectiveTime value="617561262676" /> <value xsi:type="ST" value="<pre> <b>CHEM/HEM PROFILE-BEDSIDE</b> Taputzm71.339.0Aszbjnx8655.0929126113346.54.6</ pre>" /> <interpretationCode codeSystem="local" code="*" /> < referenceRange> <observationRange> <text>7-20</text> </observationRange> </referenceRange> </observation> </component> <component> <observation moodCode="EVN" classCode= "OBS"> <templateId root="07.12.840.1.561045.10...4.2" /> < id nullFlavor="NA" /> <code codeSystem="local" code="CREAT" displayName ="CREATININE" /> <statusCode code="completed" /> < effectiveTime value="316290946571" /> <value xsi:type="ST" value="<pre> <b>CHEM/HEM PROFILE-BEDSIDE</b> Oqgipke77.339.7Gcvuygy2400.3288108755990.54.6</ pre>" /> <interpretationCode codeSystem="local" code="*" /> < referenceRange> <observationRange> <text>0.6-1.0</text> </observationRange> </referenceRange> </observation > </component> <component> <observation moodCode="EVN" classCode="OBS"> <templateId root="2.840.1.346983.10..22.4.2" /> <id nullFlavor="NA" /> <code codeSystem="local" code="HGBT" displayName="HEMOGLOBIN" /> <statusCode code="completed" /> < effectiveTime value="523764520722" /> <value xsi:type="ST" value="<pre> <b>CHEM/HEM PROFILE-BEDSIDE</b> Lqoumbd47.339.3Isaiawe0547.4059995214337.54.6</ pre>" /> <referenceRange> <observationRange> < text>12.0-16.0</text> </observationRange> </referenceRange> </observation> </component> <component> <observation moodCode="EVN" classCode="OBS"> <templateId root= "2.16.840.1.478264.10..22.4.2" /> <id nullFlavor="NA" /> < code codeSystem="local" code="HCTT" displayName="HEMATOCRIT" /> < statusCode code="completed" /> <effectiveTime value="118441758631" /> <value xsi:type="ST" value="<pre><b>CHEM/HEM PROFILE-BEDSIDE</b> Fcegrvv02.339.2Lxwvkra4268.4854588560923.54.6</pre>" /> <referenceRange > <observationRange> <text>37.0-47.0</text> < /observationRange> </referenceRange> </observation> </ component> <component> <observation moodCode="EVN" classCode="OBS"> <templateId root="216.840.1.731573.10.20.22.4.2" /> <id nullFlavor="NA" /> <code codeSystem="local" code="NA" displayName= "SODIUM" /> <statusCode code="completed" /> <effectiveTime value="" /> <value xsi:type="ST" value="<pre><b>CHEM/HEM PROFILE-BEDSIDE</b> Ceairul34.339.0Myrwmcr8085.9810739812645.54.6</pre>" /> <referenceRange> <observationRange> <text>135-148< /text> </observationRange> </referenceRange> </ observation> </component> <component> <observation moodCode= "EVN" classCode="OBS"> <templateId root="2.16.840.1.347815.10..22.4.2 " /> <id nullFlavor="NA" /> <code codeSystem="local" code="CL " displayName="CHLORIDE" /> <statusCode code="completed" /> < effectiveTime value="440988580747" /> <value xsi:type="ST" value="<pre> <b>CHEM/HEM PROFILE-BEDSIDE</b> Sxgbjgg28339.8Kvhwvgv1358.6925367738270.54.6</ pre>" /> <referenceRange> <observationRange> < text>98-110</text> </observationRange> </referenceRange> </observation> </component> <component> <observation moodCode="EVN" classCode="OBS"> <templateId root= "2.16.840.1.172130.10..22.4.2" /> <id nullFlavor="NA" /> < code codeSystem="local" code="CO2" displayName="CARBON DIOXIDE" /> < statusCode code="completed" /> <effectiveTime value="433670104920" /> <value xsi:type="ST" value="<pre><b>CHEM/HEM PROFILE-BEDSIDE</b> Htrkwvf11.339.9Cxrbrof6490.4300887562544.54.6</pre>" /> <referenceRange > <observationRange> <text>21-32</text> </ observationRange> </referenceRange> </observation> </ component> <component> <observation moodCode="EVN" classCode="OBS"> <templateId root="216.840.1.479481.10...4.2" /> <id nullFlavor="NA" /> <code codeSystem="local" code="LEIGHANNON" displayName= "CALCIUM IONIZED" /> <statusCode code="completed" /> < effectiveTime value="292426657005" /> <value xsi:type="ST" value="<pre> <b>CHEM/HEM PROFILE-BEDSIDE</b> Ascwtxf26.9Yqdjbbr1897.8391144505331.54.6</ pre>" /> <referenceRange> <observationRange> < text>4.5-5.3</text> </observationRange> </referenceRange> </observation> </component> <component> <observation moodCode="EVN" classCode="OBS"> <templateId root= "07.12.840.1.250276.10.4.2" /> <id nullFlavor="NA" /> < code codeSystem="local" code="MB" displayName="Microbiology" /> < statusCode code="completed" /> <effectiveTime value="812488140182" /> <value xsi:type="ST" value="<pre><b>CHEM/HEM PROFILE-BEDSIDE</b> Fuehmpu82339.6Mwgtodf6116.9328857666114.54.6</pre>" /> <referenceRange > <observationRange> <text /> </ observationRange> </referenceRange> </observation> </ component> </organizer> </entry> <entry> <organizer moodCode="EVN" classCode="BATTERY"> <templateId root="216.840.1.127336.10..22.4.1" /> <id nullFlavor="NA" /> <code codeSystem="local" code="UA" displayName= "URINALYSIS, ROUTINE" /> <statusCode code="completed" /> <component> <observation moodCode="EVN" classCode="OBS"> <templateId root= "216.840.1.067795.10.4.2" /> <id nullFlavor="NA" /> < code codeSystem="local" code="LEUESU" displayName="UA LEUKOCYTE ESTERASE DIPSTICK" /> <statusCode code="completed" /> <effectiveTime value="" /> <value unit="" xsi:type="PQ" value="1+" /> <interpretationCode codeSystem="local" code="*" /> < referenceRange> <observationRange> <text>NEGATIVE</text > </observationRange> </referenceRange> </observation > </component> <component> <observation moodCode="EVN" classCode="OBS"> <templateId root="07.12.840.1.654265.03.15.22.4.2" /> <id nullFlavor="NA" /> <code codeSystem="local" code="NITRIU" displayName="UA NITRITE DIPSTICK" /> <statusCode code="completed" /> <effectiveTime value="" /> <value unit="" xsi:type= "PQ" value="NEGATIVE" /> <referenceRange> <observationRange > <text>NEGATIVE</text> </observationRange> </ referenceRange> </observation> </component> <component> <observation moodCode="EVN" classCode="OBS"> <templateId root= "07.12.840.1.529271.03.15.22.4.2" /> <id nullFlavor="NA" /> < code codeSystem="local" code="PROTEIU" displayName="UA PROTEIN DIPSTICK" /> <statusCode code="completed" /> <effectiveTime value= "" /> <value unit="" xsi:type="PQ" value="NEGATIVE" /> <referenceRange> <observationRange> <text>NEGATIVE </text> </observationRange> </referenceRange> </ observation> </component> <component> <observation moodCode= "EVN" classCode="OBS"> <templateId root="16.840.1.496953.10..4.2 " /> <id nullFlavor="NA" /> <code codeSystem="local" code= "DGLUU" displayName="UA GLUCOSE DIPSTICK" /> <statusCode code= "completed" /> <effectiveTime value="365047603810" /> <value unit="" xsi:type="PQ" value="NEGATIVE" /> <referenceRange> < observationRange> <text>NEGATIVE</text> </ observationRange> </referenceRange> </observation> </ component> <component> <observation moodCode="EVN" classCode="OBS"> <templateId root="840.1.322731.03.15.22.4.2" /> <id nullFlavor="NA" /> <code codeSystem="local" code="KETONU" displayName= "UA KETONE DIPSTICK" /> <statusCode code="completed" /> < effectiveTime value="912385133453" /> <value unit="" xsi:type="PQ" value="NEGATIVE" /> <referenceRange> <observationRange> <text>NEGATIVE</text> </observationRange> </ referenceRange> </observation> </component> <component> <observation moodCode="EVN" classCode="OBS"> <templateId root= "07.12.840.1.299618.22.4.2" /> <id nullFlavor="NA" /> < code codeSystem="local" code="UROBILU" displayName="UA UROBILINOGEN DIPSTICK" / > <statusCode code="completed" /> <effectiveTime value= "967556857891" /> <value unit="" xsi:type="PQ" value="NORMAL" /> <referenceRange> <observationRange> <text>NORMAL</ text> </observationRange> </referenceRange> </ observation> </component> <component> <observation moodCode= "EVN" classCode="OBS"> <templateId root="216.840.1.116169.03.15.22.4.2 " /> <id nullFlavor="NA" /> <code codeSystem="local" code= "BILU" displayName="UA BILIRUBIN DIPSTICK" /> <statusCode code= "completed" /> <effectiveTime value="004034736834" /> <value unit="" xsi:type="PQ" value="NEGATIVE" /> <referenceRange> < observationRange> <text>NEGATIVE</text> </ observationRange> </referenceRange> </observation> </ component> <component> <observation moodCode="EVN" classCode="OBS"> <templateId root="16.840.1.107830...4.2" /> <id nullFlavor="NA" /> <code codeSystem="local" code="LON" displayName="UA BLOOD DIPSTICK" /> <statusCode code="completed" /> < effectiveTime value="118082013921" /> <value unit="" xsi:type="PQ" value="3+" /> <interpretationCode codeSystem="local" code="*" /> <referenceRange> <observationRange> <text>NEGATIVE</ text> </observationRange> </referenceRange> </ observation> </component> <component> <observation moodCode= "EVN" classCode="OBS"> <templateId root="216.840.1.241740.03.15.22.4.2 " /> <id nullFlavor="NA" /> <code codeSystem="local" code= "SPGRU" displayName="UA SPECIFIC GRAVITY" /> <statusCode code= "completed" /> <effectiveTime value="517494669125" /> <value unit="" xsi:type="PQ" value="1.020" /> <referenceRange> < observationRange> <text>1.015-1.025</text> </ observationRange> </referenceRange> </observation> </ component> <component> <observation moodCode="EVN" classCode="OBS"> <templateId root="2.16.840.1.842372.03.15.22.4.2" /> <id nullFlavor="NA" /> <code codeSystem="local" code="WILLOW" displayName="UR PH" /> <statusCode code="completed" /> <effectiveTime value= "756576919810" /> <value unit="" xsi:type="PQ" value="7.0" /> <referenceRange> <observationRange> <text>5.0-7.0</text > </observationRange> </referenceRange> </observation > </component> <component> <observation moodCode="EVN" classCode="OBS"> <templateId root="2.16.840.1.738104.03.15.22.4.2" /> <id nullFlavor="NA" /> <code codeSystem="local" code="MB" displayName="Microbiology" /> <statusCode code="completed" /> <effectiveTime value="175168922542" /> <value unit="" xsi:type="PQ" value="" /> <referenceRange> <observationRange> <text /> </observationRange> </referenceRange> </ observation> </component> </organizer> </entry> <entry> <organizer moodCode="EVN" classCode="BATTERY"> <templateId root= "840.1.533556.10..22.4.1" /> <id nullFlavor="NA" /> <code codeSystem="local" code="UAMICRO" displayName="UA MICROSCOPIC" /> < statusCode code="completed" /> <component> <observation moodCode= "EVN" classCode="OBS"> <templateId root="840.1.882114.03.15.22.4.2 " /> <id nullFlavor="NA" /> <code codeSystem="local" code= "BACU" displayName="UA BACTERIA" /> <statusCode code="completed" /> <effectiveTime value="270841643495" /> <value unit="" xsi:type= "PQ" value="5+" /> <interpretationCode codeSystem="local" code="*" /> <referenceRange> <observationRange> <text> NEGATIVE</text> </observationRange> </referenceRange> </observation> </component> <component> <observation moodCode ="EVN" classCode="OBS"> <templateId root= "[id number]...4.2" /> <id nullFlavor="NA" /> < code codeSystem="local" code="EPIU" displayName="UA EPITHELIAL CELLS" /> <statusCode code="completed" /> <effectiveTime value="[id number]" /> <value unit="epi/hpf" xsi:type="PQ" value="3+" /> < interpretationCode codeSystem="local" code="*" /> <referenceRange> <observationRange> <text>0 - 1+</text> </ observationRange> </referenceRange> </observation> </ component> <component> <observation moodCode="EVN" classCode="OBS"> <templateId root="[id number]..22.4.2" /> <id nullFlavor="NA" /> <code codeSystem="local" code="MUCUSU" displayName= "UA MUCUS" /> <statusCode code="completed" /> <effectiveTime value="" /> <value unit="" xsi:type="PQ" value="2+" /> <interpretationCode codeSystem="local" code="*" /> < referenceRange> <observationRange> <text>NEG TO 1+</text > </observationRange> </referenceRange> </observation > </component> <component> <observation moodCode="EVN" classCode="OBS"> <templateId root="07.12.840.1.322907.03.15.22.4.2" /> <id nullFlavor="NA" /> <code codeSystem="local" code="RBCU" displayName="UA RBC" /> <statusCode code="completed" /> < effectiveTime value="" /> <value unit="rbc/hpf" xsi:type= "PQ" value="20-50" /> <interpretationCode codeSystem="local" code="*" / > <referenceRange> <observationRange> <text>0 - 3</text> </observationRange> </referenceRange> </ observation> </component> <component> <observation moodCode= "EVN" classCode="OBS"> <templateId root="07.12.840.1.544236.10.22.4.2 " /> <id nullFlavor="NA" /> <code codeSystem="local" code= "UAVOL" displayName="UA VOLUME FOR EXAM" /> <statusCode code="completed " /> <effectiveTime value="" /> <value unit="mL" xsi:type="PQ" value="12.0" /> <referenceRange> < observationRange> <text>(12mL STD)</text> </ observationRange> </referenceRange> </observation> </ component> <component> <observation moodCode="EVN" classCode="OBS"> <templateId root="216.840.1.571097.10.20.22.4.2" /> <id nullFlavor="NA" /> <code codeSystem="local" code="WBCU" displayName=" UA WBC" /> <statusCode code="completed" /> <effectiveTime value="010625205665" /> <value unit="wbc/hpf" xsi:type="PQ" value="2-5 " /> <referenceRange> <observationRange> <text> 0 - 5</text> </observationRange> </referenceRange> </ observation> </component> </organizer> </entry> <entry> <organizer moodCode="EVN" classCode="BATTERY"> <templateId root= "216.840.1.635669.10..22.4.1" /> <id nullFlavor="NA" /> <code codeSystem="local" code="PREGU" displayName="UR TEST" /> < statusCode code="completed" /> <component> <observation moodCode= "EVN" classCode="OBS"> <templateId root="216.840.1.319966.10.20.22.4.2 " /> <id nullFlavor="NA" /> <code codeSystem="local" code= "PREGU" displayName="UR TEST" /> <statusCode code="completed " /> <effectiveTime value="084523613035" /> <value xsi:type= "ST" value="<pre><b>UR TEST</b> NEGATIVE</pre>" /> < referenceRange> <observationRange> <text>NEGATIVE</text > </observationRange> </referenceRange> </observation > </component> <component> <observation moodCode="EVN" classCode="OBS"> <templateId root="216.840.1.001275.10..22.4.2" /> <id nullFlavor="NA" /> <code codeSystem="local" code="MB" displayName="Microbiology" /> <statusCode code="completed" /> <effectiveTime value="477224682092" /> <value xsi:type="ST" value="<pre ><b>UR TEST</b> NEGATIVE</pre>" /> <referenceRange> <observationRange> <text /> </observationRange> </referenceRange> </observation> </component> </organizer> </entry> <entry> <organizer moodCode="EVN" classCode="BATTERY"> < templateId root="2.16.840.1.543676.10..22.4.1" /> <id nullFlavor="NA" /> <code codeSystem="local" code="CBCD" displayName="CBC W/DIFF" /> < statusCode code="completed" /> <component> <observation moodCode= "EVN" classCode="OBS"> <templateId root="2.16.840.1.558684.10..22.4.2 " /> <id nullFlavor="NA" /> <code codeSystem="local" code="EO# " displayName="EOSINOPHIL #" /> <statusCode code="completed" /> <effectiveTime value="164348940069" /> <value xsi:type="ST" value="< pre><b>CBC W/DIFF</b> 5.83.8010.933.989.228.732.213.61775332665.92.30.50.1</pre> " /> <referenceRange> <observationRange> <text> 0.1-0.5</text> </observationRange> </referenceRange> </observation> </component> <component> <observation moodCode= "EVN" classCode="OBS"> <templateId root="2.16.840.1.922645.10..22.4.2 " /> <id nullFlavor="NA" /> <code codeSystem="local" code="EO& #37;" displayName="EOSINOPHIL %" /> <statusCode code="completed" / > <effectiveTime value="565507047528" /> <value xsi:type="ST" value="<pre><b>CBC W/DIFF</b> 5.83.8010.933.989.228.732.213.81051191978.92.30.50.1</pre>" /> < referenceRange> <observationRange> <text>2-4</text> </observationRange> </referenceRange> </observation> </component> <component> <observation moodCode="EVN" classCode= "OBS"> <templateId root="2.16.840.1.753696.10..22.4.2" /> < id nullFlavor="NA" /> <code codeSystem="local" code="GR#" displayName= "GRANULOCYTE #" /> <statusCode code="completed" /> < effectiveTime value="" /> <value xsi:type="ST" value="<pre> <b>CBC W/DIFF</b> 5.83.8010.933.989.228.732.213.22444237144.92.30.50.1</pre>" / > <referenceRange> <observationRange> <text>2.0 -9.0</text> </observationRange> </referenceRange> </ observation> </component> <component> <observation moodCode= "EVN" classCode="OBS"> <templateId root="840.1.459951.10..22.4.2 " /> <id nullFlavor="NA" /> <code codeSystem="local" code="GR& #37;" displayName="GRANULOCYTE %" /> <statusCode code="completed" / > <effectiveTime value="" /> <value xsi:type="ST" value="<pre><b>CBC W/DIFF</b> 5.83.8010.933.989.228.732.213.62342544638.30.50.1</pre>" /> < referenceRange> <observationRange> <text>50-75</text> </observationRange> </referenceRange> </observation> </component> <component> <observation moodCode="EVN" classCode= "OBS"> <templateId root="216.840.1.709038.22.4.2" /> < id nullFlavor="NA" /> <code codeSystem="local" code="LY#" displayName= "LYMPHOCYTE #" /> <statusCode code="completed" /> < effectiveTime value="" /> <value xsi:type="ST" value="<pre> <b>CBC W/DIFF</b> 5.838010.933.989.228.732.213.99363821076.30.50.1</pre>" / > <referenceRange> <observationRange> <text>1.0 -4.0</text> </observationRange> </referenceRange> </ observation> </component> <component> <observation moodCode= "EVN" classCode="OBS"> <templateId root="2.16.840.1.509564.10.20.22.4.2 " /> <id nullFlavor="NA" /> <code codeSystem="local" code="LY& #37;" displayName="LYMPHOCYTE %" /> <statusCode code="completed" / > <effectiveTime value="" /> <value xsi:type="ST" value="<pre><b>CBC W/DIFF</b> 5.83.8010.933.989.228.732.213.55144181507.92.30.50.1</pre>" /> < interpretationCode codeSystem="local" code="*" /> <referenceRange> <observationRange> <text>20-30</text> </ observationRange> </referenceRange> </observation> </ component> <component> <observation moodCode="EVN" classCode="OBS"> <templateId root="2.16.840.1.743344.10..22.4.2" /> <id nullFlavor="NA" /> <code codeSystem="local" code="MCH" displayName= "MEAN CELL HGB" /> <statusCode code="completed" /> < effectiveTime value="" /> <value xsi:type="ST" value="<pre> <b>CBC W/DIFF</b> 5.83.8010.933.989.228.732.213.68585163153..30.50.1</pre>" / > <referenceRange> <observationRange> <text> 27.0-33.0</text> </observationRange> </referenceRange> </observation> </component> <component> <observation moodCode="EVN" classCode="OBS"> <templateId root= "216.840.1.475396.10.22.4.2" /> <id nullFlavor="NA" /> < code codeSystem="local" code="MCHC" displayName="MEAN CELL HGB CONCENTRATION" / > <statusCode code="completed" /> <effectiveTime value= "" /> <value xsi:type="ST" value="<pre><b>CBC W/DIFF</b> 5.83.8010.933.989.228.732.213.59281458803.92.30.50.1</pre>" /> < referenceRange> <observationRange> <text>32.0-37.0</text > </observationRange> </referenceRange> </observation > </component> <component> <observation moodCode="EVN" classCode="OBS"> <templateId root="16.840.1.068444.10.2022.4.2" /> <id nullFlavor="NA" /> <code codeSystem="local" code="MCV" displayName="MEAN CELL VOLUME" /> <statusCode code="completed" /> <effectiveTime value="" /> <value xsi:type="ST" value= "<pre><b>CBC W/DIFF</b> 5.838010.933.989.228.732.213.25618420369.30.50.1</ pre>" /> <referenceRange> <observationRange> < text>80.0-100.0</text> </observationRange> </referenceRange > </observation> </component> <component> <observation moodCode="EVN" classCode="OBS"> <templateId root= "840.1.114881.102022.4.2" /> <id nullFlavor="NA" /> < code codeSystem="local" code="MO#" displayName="MONOCYTE #" /> < statusCode code="completed" /> <effectiveTime value="" /> <value xsi:type="ST" value="<pre><b>CBC W/DIFF</b> 5.83.8010.933.989.228.732.213.77793372992.30.50.1</pre>" /> < referenceRange> <observationRange> <text>0.1-1.0</text> </observationRange> </referenceRange> </observation > </component> <component> <observation moodCode="EVN" classCode="OBS"> <templateId root="2.16.840.1.380772.10.20.22.4.2" /> <id nullFlavor="NA" /> <code codeSystem="local" code="MO% " displayName="MONOCYTE %" /> <statusCode code="completed" /> <effectiveTime value="992199253855" /> <value xsi:type="ST" value= "<pre><b>CBC W/DIFF</b> .8010.933.989.228.732.213.97443549041..1</ pre>" /> <interpretationCode codeSystem="local" code="*" /> < referenceRange> <observationRange> <text>4-6</text> </observationRange> </referenceRange> </observation> </component> <component> <observation moodCode="EVN" classCode= "OBS"> <templateId root="2.16.840.1.642167.10..22.4.2" /> < id nullFlavor="NA" /> <code codeSystem="local" code="RBC" displayName= "RED BLOOD CELL" /> <statusCode code="completed" /> < effectiveTime value="164067371140" /> <value xsi:type="ST" value="<pre> <b>CBC W/DIFF</b> 5.8010.933.989.228.732.213.94692478343..50.1</pre>" / > <interpretationCode codeSystem="local" code="*" /> < referenceRange> <observationRange> <text>4.00-6.00</text > </observationRange> </referenceRange> </observation > </component> <component> <observation moodCode="EVN" classCode="OBS"> <templateId root="2.16.840.1.486491.10..22.4.2" /> <id nullFlavor="NA" /> <code codeSystem="local" code="RDW" displayName="RED CELL DISTRIBUTION WIDTH" /> <statusCode code= "completed" /> <effectiveTime value="924481041192" /> <value xsi:type="ST" value="<pre><b>CBC W/DIFF</b> 5.83.8010.933.989.228.732.213.96215392032.92.30.50.1</pre>" /> < referenceRange> <observationRange> <text>11.0-15.6</text > </observationRange> </referenceRange> </observation > </component> <component> <observation moodCode="EVN" classCode="OBS"> <templateId root="2.16.840.1.710867.10..22.4.2" /> <id nullFlavor="NA" /> <code codeSystem="local" code="WBC" displayName="WHITE BLOOD CELL" /> <statusCode code="completed" /> <effectiveTime value="994653088644" /> <value xsi:type="ST" value= "<pre><b>CBC W/DIFF</b> 5.83.8010.933.989.228.732.213.81758453717.92.30.50.1</ pre>" /> <referenceRange> <observationRange> < text>5.0-10.0</text> </observationRange> </referenceRange> </observation> </component> <component> <observation moodCode="EVN" classCode="OBS"> <templateId root= "2.16.840.1.917125.10..22.4.2" /> <id nullFlavor="NA" /> < code codeSystem="local" code="HGBT" displayName="HEMOGLOBIN" /> < statusCode code="completed" /> <effectiveTime value="894552392196" /> <value xsi:type="ST" value="<pre><b>CBC W/DIFF</b> 5.83.8010.933.989.228.732.213.96041684318..30.50.1</pre>" /> < interpretationCode codeSystem="local" code="*" /> <referenceRange> <observationRange> <text>12.0-16.0</text> </ observationRange> </referenceRange> </observation> </ component> <component> <observation moodCode="EVN" classCode="OBS"> <templateId root="2.16.840.1.333192.10..22.4.2" /> <id nullFlavor="NA" /> <code codeSystem="local" code="HCTT" displayName= "HEMATOCRIT" /> <statusCode code="completed" /> < effectiveTime value="483336795500" /> <value xsi:type="ST" value="<pre> <b>CBC W/DIFF</b> 5.83.8010.933.989.228.732.213.54022577441.30.50.1</pre>" / > <interpretationCode codeSystem="local" code="*" /> < referenceRange> <observationRange> <text>37.0-47.0</text > </observationRange> </referenceRange> </observation > </component> <component> <observation moodCode="EVN" classCode="OBS"> <templateId root="216.840.1.241599.10..22.4.2" /> <id nullFlavor="NA" /> <code codeSystem="local" code="PLT" displayName="PLATELET COUNT" /> <statusCode code="completed" /> <effectiveTime value="458506709030" /> <value xsi:type="ST" value="< pre><b>CBC W/DIFF</b> 5.83.8010.933.989.228.732.213.42791679752.30.50.1</pre> " /> <referenceRange> <observationRange> <text> 150-400</text> </observationRange> </referenceRange> </observation> </component> <component> <observation moodCode= "EVN" classCode="OBS"> <templateId root="16.840.1.738923.10..4.2 " /> <id nullFlavor="NA" /> <code codeSystem="local" code="MB " displayName="Microbiology" /> <statusCode code="completed" /> <effectiveTime value="689562325391" /> <value xsi:type="ST" value="< pre><b>CBC W/DIFF</b> 5.838010.933.989.228.732.213.82611833174.3050.1</pre> " /> <referenceRange> <observationRange> <text /> </observationRange> </referenceRange> </ observation> </component> </organizer> </entry> <entry> <organizer moodCode="EVN" classCode="BATTERY"> <templateId root= "16.840.1.063249.10..22.4.1" /> <id nullFlavor="NA" /> <code codeSystem="local" code="iCHEM8" displayName="CHEM/HEM PROFILE-BEDSIDE" /> <statusCode code="completed" /> <component> <observation moodCode= "EVN" classCode="OBS"> <templateId root="216.840.1.236446.10..22.4.2 " /> <id nullFlavor="NA" /> <code codeSystem="local" code="K" displayName="POTASSIUM" /> <statusCode code="completed" /> < effectiveTime value="994135100070" /> <value xsi:type="ST" value="<pre> <b>CHEM/HEM PROFILE-BEDSIDE</b> Kxhxmhv12.53.4Jnfexki6068.804298018516.43.9</ pre>" /> <interpretationCode codeSystem="local" code="*" /> < referenceRange> <observationRange> <text>3.5-5.3</text> </observationRange> </referenceRange> </observation > </component> <component> <observation moodCode="EVN" classCode="OBS"> <templateId root="07.12.840.1.767633.10...4.2" /> <id nullFlavor="NA" /> <code codeSystem="local" code="CMETHOD " displayName="METHOD" /> <statusCode code="completed" /> < effectiveTime value="036885158983" /> <value xsi:type="ST" value="<pre> <b>CHEM/HEM PROFILE-BEDSIDE</b> Vxptvfr23.531.1Zunvcpg8267.372701197158.43.9</ pre>" /> <referenceRange> <observationRange> < text /> </observationRange> </referenceRange> </ observation> </component> <component> <observation moodCode= "EVN" classCode="OBS"> <templateId root="216.840.1.262379.10..22.4.2 " /> <id nullFlavor="NA" /> <code codeSystem="local" code="GAP " displayName="ANION GAP" /> <statusCode code="completed" /> < effectiveTime value="" /> <value xsi:type="ST" value="<pre> <b>CHEM/HEM PROFILE-BEDSIDE</b> Rpbvfwh08.0Kjnmsah0544.922946586109.43.9</ pre>" /> <referenceRange> <observationRange> < text>10-20</text> </observationRange> </referenceRange> </observation> </component> <component> <observation moodCode="EVN" classCode="OBS"> <templateId root= "2.16.840.1.042042.10..4.2" /> <id nullFlavor="NA" /> < code codeSystem="local" code="HMETHOD" displayName="METHOD" /> < statusCode code="completed" /> <effectiveTime value="" /> <value xsi:type="ST" value="<pre><b>CHEM/HEM PROFILE-BEDSIDE</b> Vlaxdjr80.9Spvsvta4574.649233792721.43.9</pre>" /> <referenceRange > <observationRange> <text /> </ observationRange> </referenceRange> </observation> </ component> <component> <observation moodCode="EVN" classCode="OBS"> <templateId root="2.16.840.1.899317.10..4.2" /> <id nullFlavor="NA" /> <code codeSystem="local" code="GLU" displayName= "GLUCOSE" /> <statusCode code="completed" /> <effectiveTime value="" /> <value xsi:type="ST" value="<pre><b>CHEM/HEM PROFILE-BEDSIDE</b> Btrkhfg5853.3Fioxcsb0889.030659447190.43.9</pre>" /> <referenceRange> <observationRange> <text>70-99</ text> </observationRange> </referenceRange> </ observation> </component> <component> <observation moodCode= "EVN" classCode="OBS"> <templateId root="2.16.840.1.403655.10..22.4.2 " /> <id nullFlavor="NA" /> <code codeSystem="local" code="BUN " displayName="BLOOD UREA NITROGEN" /> <statusCode code="completed" /> <effectiveTime value="407653294631" /> <value xsi:type="ST" value="<pre><b>CHEM/HEM PROFILE-BEDSIDE</b> Wyplpug02.531.9Yxusxqx1641.627275800420.43.9</pre>" /> <referenceRange > <observationRange> <text>7-20</text> </ observationRange> </referenceRange> </observation> </ component> <component> <observation moodCode="EVN" classCode="OBS"> <templateId root="2.16.840.1.215130.10..22.4.2" /> <id nullFlavor="NA" /> <code codeSystem="local" code="CREAT" displayName= "CREATININE" /> <statusCode code="completed" /> < effectiveTime value="196147795172" /> <value xsi:type="ST" value="<pre> <b>CHEM/HEM PROFILE-BEDSIDE</b> Zvcpnic93.531.8Kvfyyrq2523.437430012506.43.9</ pre>" /> <interpretationCode codeSystem="local" code="*" /> < referenceRange> <observationRange> <text>0.6-1.0</text> </observationRange> </referenceRange> </observation > </component> <component> <observation moodCode="EVN" classCode="OBS"> <templateId root="2.840.1.824885.10..22.4.2" /> <id nullFlavor="NA" /> <code codeSystem="local" code="HGBT" displayName="HEMOGLOBIN" /> <statusCode code="completed" /> < effectiveTime value="437065006549" /> <value xsi:type="ST" value="<pre> <b>CHEM/HEM PROFILE-BEDSIDE</b> Ivknwat23531.7Ofeyblu5998.730947576615.43.9</ pre>" /> <interpretationCode codeSystem="local" code="*" /> < referenceRange> <observationRange> <text>12.0-16.0</text > </observationRange> </referenceRange> </observation > </component> <component> <observation moodCode="EVN" classCode="OBS"> <templateId root="07.12.840.1.811087.10...4.2" /> <id nullFlavor="NA" /> <code codeSystem="local" code="HCTT" displayName="HEMATOCRIT" /> <statusCode code="completed" /> < effectiveTime value="401634957048" /> <value xsi:type="ST" value="<pre> <b>CHEM/HEM PROFILE-BEDSIDE</b> Yxmthga98531.6Iwentxy2174.471187851445.43.9</ pre>" /> <interpretationCode codeSystem="local" code="*" /> < referenceRange> <observationRange> <text>37.0-47.0</text > </observationRange> </referenceRange> </observation > </component> <component> <observation moodCode="EVN" classCode="OBS"> <templateId root="07.12.840.1.964409.10..4.2" /> <id nullFlavor="NA" /> <code codeSystem="local" code="NA" displayName="SODIUM" /> <statusCode code="completed" /> < effectiveTime value="075859330459" /> <value xsi:type="ST" value="<pre> <b>CHEM/HEM PROFILE-BEDSIDE</b> Jxteekm88.531.5Agqsbod3863.254606567738.43.9</ pre>" /> <referenceRange> <observationRange> < text>135-148</text> </observationRange> </referenceRange> </observation> </component> <component> <observation moodCode="EVN" classCode="OBS"> <templateId root= "216.840.1.797662.03.15.224.2" /> <id nullFlavor="NA" /> < code codeSystem="local" code="CL" displayName="CHLORIDE" /> < statusCode code="completed" /> <effectiveTime value="742916331434" /> <value xsi:type="ST" value="<pre><b>CHEM/HEM PROFILE-BEDSIDE</b> Bgyhkyy61.531.2Yqoanrr4278.835096533959.43.9</pre>" /> < interpretationCode codeSystem="local" code="*" /> <referenceRange> <observationRange> <text>98-110</text> </ observationRange> </referenceRange> </observation> </ component> <component> <observation moodCode="EVN" classCode="OBS"> <templateId root="216.840.1.503418.03.15.22.4.2" /> <id nullFlavor="NA" /> <code codeSystem="local" code="CO2" displayName= "CARBON DIOXIDE" /> <statusCode code="completed" /> < effectiveTime value="113797161072" /> <value xsi:type="ST" value="<pre> <b>CHEM/HEM PROFILE-BEDSIDE</b> Mqhfnll02.531.8Xvbqeid4114.018348288864.43.9</ pre>" /> <interpretationCode codeSystem="local" code="*" /> < referenceRange> <observationRange> <text>21-32</text> </observationRange> </referenceRange> </observation> </component> <component> <observation moodCode="EVN" classCode= "OBS"> <templateId root="216.840.1.632434.10..22.4.2" /> < id nullFlavor="NA" /> <code codeSystem="local" code="CAION" displayName ="CALCIUM IONIZED" /> <statusCode code="completed" /> < effectiveTime value="131465502511" /> <value xsi:type="ST" value="<pre> <b>CHEM/HEM PROFILE-BEDSIDE</b> Wnshjvh85.531.3Bjgvjvd0167.330806533315.43.9</ pre>" /> <interpretationCode codeSystem="local" code="*" /> < referenceRange> <observationRange> <text>4.5-5.3</text> </observationRange> </referenceRange> </observation > </component> <component> <observation moodCode="EVN" classCode="OBS"> <templateId root="07.12.840.1.402712.10..22.4.2" /> <id nullFlavor="NA" /> <code codeSystem="local" code="MB" displayName="Microbiology" /> <statusCode code="completed" /> <effectiveTime value="463128807406" /> <value xsi:type="ST" value="<pre ><b>CHEM/HEM PROFILE-BEDSIDE</b> Ytrojjq59.531.0Cldukkv0272.073823377089.43.9</ pre>" /> <referenceRange> <observationRange> < text /> </observationRange> </referenceRange> </ observation> </component> </organizer> </entry> <entry> <organizer moodCode="EVN" classCode="BATTERY"> <templateId root= "16.840.1.288191.10.4.1" /> <id nullFlavor="NA" /> <code codeSystem="local" code="CBCD" displayName="CBC W/DIFF" /> <statusCode code ="completed" /> <component> <observation moodCode="EVN" classCode= "OBS"> <templateId root="16.840.1.418828.03.15.22.4.2" /> < id nullFlavor="NA" /> <code codeSystem="local" code="EO#" displayName= "EOSINOPHIL #" /> <statusCode code="completed" /> < effectiveTime value="" /> <value unit="k/cumm" xsi:type="PQ " value="0.2" /> <referenceRange> <observationRange> <text>0.1-0.5</text> </observationRange> </ referenceRange> </observation> </component> <component> <observation moodCode="EVN" classCode="OBS"> <templateId root= "07.12.840.1.226406.10.4.2" /> <id nullFlavor="NA" /> < code codeSystem="local" code="EO%" displayName="EOSINOPHIL %" /> <statusCode code="completed" /> <effectiveTime value="" /> <value unit="%" xsi:type="PQ" value="2" /> < referenceRange> <observationRange> <text>2-4</text> </observationRange> </referenceRange> </observation> </component> <component> <observation moodCode="EVN" classCode= "OBS"> <templateId root="16.840.1.526069.1022.4.2" /> < id nullFlavor="NA" /> <code codeSystem="local" code="GR#" displayName= "GRANULOCYTE #" /> <statusCode code="completed" /> < effectiveTime value="" /> <value unit="k/cumm" xsi:type="PQ " value="3.6" /> <referenceRange> <observationRange> <text>2.0-9.0</text> </observationRange> </ referenceRange> </observation> </component> <component> <observation moodCode="EVN" classCode="OBS"> <templateId root= "07.12.840.1.433184.03.15.22.4.2" /> <id nullFlavor="NA" /> < code codeSystem="local" code="GR%" displayName="GRANULOCYTE %" /> <statusCode code="completed" /> <effectiveTime value=" " /> <value unit="%" xsi:type="PQ" value="52" /> < referenceRange> <observationRange> <text>50-75</text> </observationRange> </referenceRange> </observation> </component> <component> <observation moodCode="EVN" classCode= "OBS"> <templateId root="16.840.1.595092.10.22.4.2" /> < id nullFlavor="NA" /> <code codeSystem="local" code="LY#" displayName= "LYMPHOCYTE #" /> <statusCode code="completed" /> < effectiveTime value="" /> <value unit="k/cumm" xsi:type="PQ " value="2.5" /> <referenceRange> <observationRange> <text>1.0-4.0</text> </observationRange> </ referenceRange> </observation> </component> <component> <observation moodCode="EVN" classCode="OBS"> <templateId root= "07.12.840.1.329824.10.20.22.4.2" /> <id nullFlavor="NA" /> < code codeSystem="local" code="LY%" displayName="LYMPHOCYTE %" /> <statusCode code="completed" /> <effectiveTime value="" /> <value unit="%" xsi:type="PQ" value="36" /> < interpretationCode codeSystem="local" code="*" /> <referenceRange> <observationRange> <text>20-30</text> </ observationRange> </referenceRange> </observation> </ component> <component> <observation moodCode="EVN" classCode="OBS"> <templateId root="[id number]" /> <id nullFlavor="NA" /> <code codeSystem="local" code="MCH" displayName= "MEAN CELL HGB" /> <statusCode code="completed" /> < effectiveTime value="" /> <value unit="pg" xsi:type="PQ" value="28.4" /> <referenceRange> <observationRange> <text>27.0-33.0</text> </observationRange> </ referenceRange> </observation> </component> <component> <observation moodCode="EVN" classCode="OBS"> <templateId root= "[id number]" /> <id nullFlavor="NA" /> < code codeSystem="local" code="MCHC" displayName="MEAN CELL HGB CONCENTRATION" / > <statusCode code="completed" /> <effectiveTime value= "" /> <value unit="g/dL" xsi:type="PQ" value="32.0" /> <referenceRange> <observationRange> <text>32.0- 37.0</text> </observationRange> </referenceRange> </ observation> </component> <component> <observation moodCode= "EVN" classCode="OBS"> <templateId root="[id number] " /> <id nullFlavor="NA" /> <code codeSystem="local" code="MCV " displayName="MEAN CELL VOLUME" /> <statusCode code="completed" /> <effectiveTime value="" /> <value unit="fl" xsi:type ="PQ" value="88.8" /> <referenceRange> <observationRange> <text>80.0-100.0</text> </observationRange> </ referenceRange> </observation> </component> <component> <observation moodCode="EVN" classCode="OBS"> <templateId root= "216.840.1.034397.10.20.22.4.2" /> <id nullFlavor="NA" /> < code codeSystem="local" code="MO#" displayName="MONOCYTE #" /> < statusCode code="completed" /> <effectiveTime value="" /> <value unit="k/cumm" xsi:type="PQ" value="0.7" /> < referenceRange> <observationRange> <text>0.1-1.0</text> </observationRange> </referenceRange> </observation > </component> <component> <observation moodCode="EVN" classCode="OBS"> <templateId root="216.840.1.751530.10.20.22.4.2" /> <id nullFlavor="NA" /> <code codeSystem="local" code="MO% " displayName="MONOCYTE %" /> <statusCode code="completed" /> <effectiveTime value="" /> <value unit="%" xsi: type="PQ" value="10" /> <interpretationCode codeSystem="local" code="* " /> <referenceRange> <observationRange> <text> 4-6</text> </observationRange> </referenceRange> </ observation> </component> <component> <observation moodCode= "EVN" classCode="OBS"> <templateId root="16.840.1.369294.10.22.4.2 " /> <id nullFlavor="NA" /> <code codeSystem="local" code="RBC " displayName="RED BLOOD CELL" /> <statusCode code="completed" /> <effectiveTime value="" /> <value unit="m/cumm" xsi: type="PQ" value="4.12" /> <referenceRange> <observationRange > <text>4.00-6.00</text> </observationRange> </ referenceRange> </observation> </component> <component> <observation moodCode="EVN" classCode="OBS"> <templateId root= "07.12.840.1.017211.10.20.22.4.2" /> <id nullFlavor="NA" /> < code codeSystem="local" code="RDW" displayName="RED CELL DISTRIBUTION WIDTH" /> <statusCode code="completed" /> <effectiveTime value= "" /> <value unit="%" xsi:type="PQ" value="15.0" /> <referenceRange> <observationRange> <text>11.0- 15.6</text> </observationRange> </referenceRange> </ observation> </component> <component> <observation moodCode= "EVN" classCode="OBS"> <templateId root="07.12.840.1.214396.10.20.22.4.2 " /> <id nullFlavor="NA" /> <code codeSystem="local" code="WBC " displayName="WHITE BLOOD CELL" /> <statusCode code="completed" /> <effectiveTime value="" /> <value unit="k/cumm" xsi: type="PQ" value="6.9" /> <referenceRange> <observationRange > <text>5.0-10.0</text> </observationRange> </ referenceRange> </observation> </component> <component> <observation moodCode="EVN" classCode="OBS"> <templateId root= "07.12.840.1.829262.10..22.4.2" /> <id nullFlavor="NA" /> < code codeSystem="local" code="HGBT" displayName="HEMOGLOBIN" /> < statusCode code="completed" /> <effectiveTime value="" /> <value unit="gm/dL" xsi:type="PQ" value="11.7" /> < interpretationCode codeSystem="local" code="*" /> <referenceRange> <observationRange> <text>12.0-16.0</text> </ observationRange> </referenceRange> </observation> </ component> <component> <observation moodCode="EVN" classCode="OBS"> <templateId root="07.12.840.1.955996.10.20.22.4.2" /> <id nullFlavor="NA" /> <code codeSystem="local" code="HCTT" displayName= "HEMATOCRIT" /> <statusCode code="completed" /> < effectiveTime value="" /> <value unit="%" xsi:type="PQ " value="36.6" /> <interpretationCode codeSystem="local" code="*" /> <referenceRange> <observationRange> <text>37.0- 47.0</text> </observationRange> </referenceRange> </ observation> </component> <component> <observation moodCode= "EVN" classCode="OBS"> <templateId root="216.840.1.914249.03.15.22.4.2 " /> <id nullFlavor="NA" /> <code codeSystem="local" code="PLT " displayName="PLATELET COUNT" /> <statusCode code="completed" /> <effectiveTime value="" /> <value unit="k/cumm" xsi: type="PQ" value="193" /> <referenceRange> <observationRange > <text>150-450</text> </observationRange> </ referenceRange> </observation> </component> </organizer> </entry > <entry> <organizer moodCode="EVN" classCode="BATTERY"> <templateId root="16.840.1.746338.03.15.22.4.1" /> <id nullFlavor="NA" /> <code codeSystem="local" code="PREG" displayName=" TEST, SERUM" /> < statusCode code="completed" /> <component> <observation moodCode= "EVN" classCode="OBS"> <templateId root="16.840.1.950713.03.15.22.4.2 " /> <id nullFlavor="NA" /> <code codeSystem="local" code= "PREG" displayName=" TEST, SERUM" /> <statusCode code= "completed" /> <effectiveTime value="" /> <value unit="" xsi:type="PQ" value="NEGATIVE" /> <referenceRange> < observationRange> <text>NEGATIVE</text> </ observationRange> </referenceRange> </observation> </ component> </organizer> </entry> <entry> <organizer moodCode="EVN" classCode="BATTERY"> <templateId root="07.12.840.1.304047.03.15.22.4.1" /> <id nullFlavor="NA" /> <code codeSystem="local" code="METABC" displayName="METABOLIC PANEL, COMPREHN" /> <statusCode code="completed" /> <component> <observation moodCode="EVN" classCode="OBS"> < templateId root="07.12.840.1.230431.03.15.22.4.2" /> <id nullFlavor="NA " /> <code codeSystem="local" code="K" displayName="POTASSIUM" /> <statusCode code="completed" /> <effectiveTime value=" " /> <value unit="mmol/L" xsi:type="PQ" value="4.0" /> < referenceRange> <observationRange> <text>3.5-5.3</text> </observationRange> </referenceRange> </observation > </component> <component> <observation moodCode="EVN" classCode="OBS"> <templateId root="07.12.840.1.773537.03.15.22.4.2" /> <id nullFlavor="NA" /> <code codeSystem="local" code="eGFR" displayName="EST GFR (MDRD)" /> <statusCode code="completed" /> <effectiveTime value="" /> <value unit="mL/min" xsi:type ="PQ" value="> 60" /> <referenceRange> <observationRange > <text>> 59</text> </observationRange> </ referenceRange> </observation> </component> <component> <observation moodCode="EVN" classCode="OBS"> <templateId root= "16.840.1.830113.10..22.4.2" /> <id nullFlavor="NA" /> < code codeSystem="local" code="GAP" displayName="ANION GAP" /> < statusCode code="completed" /> <effectiveTime value="" /> <value unit="mmol/L" xsi:type="PQ" value="8" /> < referenceRange> <observationRange> <text>5-15</text> </observationRange> </referenceRange> </observation> </component> <component> <observation moodCode="EVN" classCode= "OBS"> <templateId root="07.12.840.1.942234.10..4.2" /> < id nullFlavor="NA" /> <code codeSystem="local" code="eCrCl" displayName ="EST CrCl (CG)" /> <statusCode code="completed" /> < effectiveTime value="" /> <value unit="mL/min" xsi:type="PQ " value="> 60" /> <referenceRange> <observationRange> <text>> 59</text> </observationRange> </ referenceRange> </observation> </component> <component> <observation moodCode="EVN" classCode="OBS"> <templateId root= "07.12.840.1.185128.10.20.22.4.2" /> <id nullFlavor="NA" /> < code codeSystem="local" code="GLU" displayName="GLUCOSE" /> < statusCode code="completed" /> <effectiveTime value="" /> <value unit="mg/dL" xsi:type="PQ" value="72" /> < referenceRange> <observationRange> <text>70-99</text> </observationRange> </referenceRange> </observation> </component> <component> <observation moodCode="EVN" classCode= "OBS"> <templateId root="216.840.1.201360.1022.4.2" /> < id nullFlavor="NA" /> <code codeSystem="local" code="CA" displayName= "CALCIUM" /> <statusCode code="completed" /> <effectiveTime value="" /> <value unit="mg/dL" xsi:type="PQ" value="8.7" / > <referenceRange> <observationRange> <text>8.5 -10.1</text> </observationRange> </referenceRange> </ observation> </component> <component> <observation moodCode= "EVN" classCode="OBS"> <templateId root="07.12.840.1.799669.1022.4.2 " /> <id nullFlavor="NA" /> <code codeSystem="local" code="BUN " displayName="BLOOD UREA NITROGEN" /> <statusCode code="completed" /> <effectiveTime value="" /> <value unit="mg/dL" xsi:type="PQ" value="9" /> <referenceRange> < observationRange> <text>7-20</text> </observationRange> </referenceRange> </observation> </component> < component> <observation moodCode="EVN" classCode="OBS"> < templateId root="16.840.1.489039.10.20.22.4.2" /> <id nullFlavor="NA " /> <code codeSystem="local" code="CREAT" displayName="CREATININE" /> <statusCode code="completed" /> <effectiveTime value= "" /> <value unit="mg/dL" xsi:type="PQ" value="0.7" /> <referenceRange> <observationRange> <text>0.6-1.0< /text> </observationRange> </referenceRange> </ observation> </component> <component> <observation moodCode= "EVN" classCode="OBS"> <templateId root="216.840.1.862692.10..22.4.2 " /> <id nullFlavor="NA" /> <code codeSystem="local" code="NA " displayName="SODIUM" /> <statusCode code="completed" /> < effectiveTime value="" /> <value unit="mmol/L" xsi:type="PQ " value="140" /> <referenceRange> <observationRange> <text>135-148</text> </observationRange> </ referenceRange> </observation> </component> <component> <observation moodCode="EVN" classCode="OBS"> <templateId root= "16.840.1.264078.10.20.22.4.2" /> <id nullFlavor="NA" /> < code codeSystem="local" code="CL" displayName="CHLORIDE" /> < statusCode code="completed" /> <effectiveTime value="" /> <value unit="mmol/L" xsi:type="PQ" value="103" /> < referenceRange> <observationRange> <text>98-110</text> </observationRange> </referenceRange> </observation> </component> <component> <observation moodCode="EVN" classCode ="OBS"> <templateId root="216.840.1.749255.10..22.4.2" /> < id nullFlavor="NA" /> <code codeSystem="local" code="AST" displayName= "AST/SGOT" /> <statusCode code="completed" /> <effectiveTime value="" /> <value unit="Units/L" xsi:type="PQ" value="203 " /> <interpretationCode codeSystem="local" code="*" /> < referenceRange> <observationRange> <text>10-37</text> </observationRange> </referenceRange> </observation> </component> <component> <observation moodCode="EVN" classCode= "OBS"> <templateId root="216.840.1.480980.10..4.2" /> < id nullFlavor="NA" /> <code codeSystem="local" code="ALT" displayName= "ALT/SGPT" /> <statusCode code="completed" /> <effectiveTime value="" /> <value unit="Units/L" xsi:type="PQ" value="277 " /> <interpretationCode codeSystem="local" code="*" /> < referenceRange> <observationRange> <text>< 66</text> </observationRange> </referenceRange> </observation > </component> <component> <observation moodCode="EVN" classCode="OBS"> <templateId root="07.12.840.1.261356.10..4.2" /> <id nullFlavor="NA" /> <code codeSystem="local" code="CO2" displayName="CARBON DIOXIDE" /> <statusCode code="completed" /> <effectiveTime value="" /> <value unit="mmol/L" xsi:type ="PQ" value="29" /> <referenceRange> <observationRange> <text>21-32</text> </observationRange> </ referenceRange> </observation> </component> <component> <observation moodCode="EVN" classCode="OBS"> <templateId root= "216.840.1.830644.10.4.2" /> <id nullFlavor="NA" /> < code codeSystem="local" code="TP" displayName="TOTAL PROTEIN" /> < statusCode code="completed" /> <effectiveTime value="" /> <value unit="gm/dL" xsi:type="PQ" value="7.0" /> < referenceRange> <observationRange> <text>6.4-8.2</text> </observationRange> </referenceRange> </observation > </component> <component> <observation moodCode="EVN" classCode="OBS"> <templateId root="07.12.840.1.387956.03.15.22.4.2" /> <id nullFlavor="NA" /> <code codeSystem="local" code="ALB" displayName="ALBUMIN" /> <statusCode code="completed" /> < effectiveTime value="" /> <value unit="gm/dL" xsi:type="PQ " value="3.4" /> <referenceRange> <observationRange> <text>3.4-5.0</text> </observationRange> </ referenceRange> </observation> </component> <component> <observation moodCode="EVN" classCode="OBS"> <templateId root= "16.840.1.800024...4.2" /> <id nullFlavor="NA" /> < code codeSystem="local" code="BILTOT" displayName="BILI TOTAL" /> < statusCode code="completed" /> <effectiveTime value="" /> <value unit="mg/dL" xsi:type="PQ" value="0.2" /> < referenceRange> <observationRange> <text>0.0-1.0</text> </observationRange> </referenceRange> </observation > </component> <component> <observation moodCode="EVN" classCode="OBS"> <templateId root="07.12.840.1.412418.1022.4.2" /> <id nullFlavor="NA" /> <code codeSystem="local" code="ALKP" displayName="ALKALINE PHOSPHATASE TOTAL" /> <statusCode code="completed " /> <effectiveTime value="" /> <value unit="IU/L " xsi:type="PQ" value="139" /> <interpretationCode codeSystem="local" code="*" /> <referenceRange> <observationRange> <text>45-117</text> </observationRange> </referenceRange> </observation> </component> </organizer> </entry> <entry> < organizer moodCode="EVN" classCode="BATTERY"> <templateId root= "840.1.210090.22.4.1" /> <id nullFlavor="NA" /> <code codeSystem="local" code="MAG" displayName="MAGNESIUM" /> <statusCode code= "completed" /> <component> <observation moodCode="EVN" classCode= "OBS"> <templateId root="07.12.840.1.884254.102022.4.2" /> < id nullFlavor="NA" /> <code codeSystem="local" code="MAG" displayName= "MAGNESIUM" /> <statusCode code="completed" /> <effectiveTime value="161509373718" /> <value unit="mg/dL" xsi:type="PQ" value="2.1" / > <referenceRange> <observationRange> <text>1.8 -2.4</text> </observationRange> </referenceRange> </ observation> </component> </organizer> </entry> <entry> <organizer moodCode="EVN" classCode="BATTERY"> <templateId root= "16.840.1.027792.10..22.4.1" /> <id nullFlavor="NA" /> <code codeSystem="local" code="PHEN" displayName="PHENYTOIN (DILANTIN)" /> < statusCode code="completed" /> <component> <observation moodCode= "EVN" classCode="OBS"> <templateId root="07.12.840.1.495878.10..22.4.2 " /> <id nullFlavor="NA" /> <code codeSystem="local" code= "PHEN" displayName="PHENYTOIN (DILANTIN)" /> <statusCode code= "completed" /> <effectiveTime value="[id number]" /> <value unit="mcg/mL" xsi:type="PQ" value="< 2.5" /> <interpretationCode codeSystem="local" code="*" /> <referenceRange> < observationRange> <text>10.0-20.0</text> </ observationRange> </referenceRange> </observation> </ component> </organizer> </entry> <entry> <organizer moodCode="EVN" classCode="BATTERY"> <templateId root="07.12.840.1.828067.10..22.4.1" /> <id nullFlavor="NA" /> <code codeSystem="local" code="VALP" displayName="VALPROIC ACID (DEPAKENE)" /> <statusCode code="completed" /> <component> <observation moodCode="EVN" classCode="OBS"> < templateId root="07.12.840.1.346863.10.20.22.4.2" /> <id nullFlavor="NA " /> <code codeSystem="local" code="VALP" displayName="VALPROIC ACID ( DEPAKENE)" /> <statusCode code="completed" /> <effectiveTime value="761580640767" /> <value unit="mcg/mL" xsi:type="PQ" value="< 3" /> <interpretationCode codeSystem="local" code="*" /> < referenceRange> <observationRange> <text>50-100</text> </observationRange> </referenceRange> </observation> </component> </organizer> </entry> <entry> <organizer moodCode= "EVN" classCode="BATTERY"> <templateId root="2.16.840.1.699411.10.20.22.4.1 " /> <id nullFlavor="NA" /> <code codeSystem="local" code="ALC" displayName="ALCOHOL (ETHANOL) SERUM" /> <statusCode code="completed" /> <component> <observation moodCode="EVN" classCode="OBS"> < templateId root="2.16.840.1.866691.10.20.22.4.2" /> <id nullFlavor="NA " /> <code codeSystem="local" code="ALC" displayName="ALCOHOL (ETHANOL ) SERUM" /> <statusCode code="completed" /> <effectiveTime value="078311715998" /> <value unit="mg/dL" xsi:type="PQ" value="< 10" /> <referenceRange> <observationRange> < text> < 10</text> </observationRange> </referenceRange> </observation> </component> </organizer> </entry> <entry> < organizer moodCode="EVN" classCode="BATTERY"> <templateId root= "2.16.840.1.338568.10..4.1" /> <id nullFlavor="NA" /> <code codeSystem="local" code="UA" displayName="URINALYSIS, ROUTINE" /> < statusCode code="completed" /> <component> <observation moodCode= "EVN" classCode="OBS"> <templateId root="840.1.531350.03.15.22.4.2 " /> <id nullFlavor="NA" /> <code codeSystem="local" code= "LEUESU" displayName="UA LEUKOCYTE ESTERASE DIPSTICK" /> <statusCode code="completed" /> <effectiveTime value="" /> < value unit="" xsi:type="PQ" value="1+" /> <interpretationCode codeSystem="local" code="*" /> <referenceRange> < observationRange> <text>NEGATIVE</text> </ observationRange> </referenceRange> </observation> </ component> <component> <observation moodCode="EVN" classCode="OBS"> <templateId root="840.1.903614.03.15.22.4.2" /> <id nullFlavor="NA" /> <code codeSystem="local" code="NITRIU" displayName= "UA NITRITE DIPSTICK" /> <statusCode code="completed" /> < effectiveTime value="" /> <value unit="" xsi:type="PQ" value="NEGATIVE" /> <referenceRange> <observationRange> <text>NEGATIVE</text> </observationRange> </ referenceRange> </observation> </component> <component> <observation moodCode="EVN" classCode="OBS"> <templateId root= "07.12.840.1.373055.03.15.22.4.2" /> <id nullFlavor="NA" /> < code codeSystem="local" code="PROTEIU" displayName="UA PROTEIN DIPSTICK" /> <statusCode code="completed" /> <effectiveTime value= "" /> <value unit="" xsi:type="PQ" value="TRACE" /> <referenceRange> <observationRange> <text>NEGATIVE</ text> </observationRange> </referenceRange> </ observation> </component> <component> <observation moodCode= "EVN" classCode="OBS"> <templateId root="16.840.1.052316.10...4.2 " /> <id nullFlavor="NA" /> <code codeSystem="local" code= "DGLUU" displayName="UA GLUCOSE DIPSTICK" /> <statusCode code= "completed" /> <effectiveTime value="" /> <value unit="" xsi:type="PQ" value="NEGATIVE" /> <referenceRange> < observationRange> <text>NEGATIVE</text> </ observationRange> </referenceRange> </observation> </ component> <component> <observation moodCode="EVN" classCode="OBS"> <templateId root="16.840.1.470987.10...4.2" /> <id nullFlavor="NA" /> <code codeSystem="local" code="KETONU" displayName= "UA KETONE DIPSTICK" /> <statusCode code="completed" /> < effectiveTime value="" /> <value unit="" xsi:type="PQ" value="NEGATIVE" /> <referenceRange> <observationRange> <text>NEGATIVE</text> </observationRange> </ referenceRange> </observation> </component> <component> <observation moodCode="EVN" classCode="OBS"> <templateId root= "07.12.840.1.836985.22.4.2" /> <id nullFlavor="NA" /> < code codeSystem="local" code="UROBILU" displayName="UA UROBILINOGEN DIPSTICK" / > <statusCode code="completed" /> <effectiveTime value= "" /> <value unit="" xsi:type="PQ" value="2+" /> < interpretationCode codeSystem="local" code="*" /> <referenceRange> <observationRange> <text>NORMAL</text> </ observationRange> </referenceRange> </observation> </ component> <component> <observation moodCode="EVN" classCode="OBS"> <templateId root="16.840.1.947984.03.15.22.4.2" /> <id nullFlavor="NA" /> <code codeSystem="local" code="BILU" displayName=" UA BILIRUBIN DIPSTICK" /> <statusCode code="completed" /> < effectiveTime value="" /> <value unit="" xsi:type="PQ" value="NEGATIVE" /> <referenceRange> <observationRange> <text>NEGATIVE</text> </observationRange> </ referenceRange> </observation> </component> <component> <observation moodCode="EVN" classCode="OBS"> <templateId root= "16.840.1.797838.10..4.2" /> <id nullFlavor="NA" /> < code codeSystem="local" code="LON" displayName="UA BLOOD DIPSTICK" /> < statusCode code="completed" /> <effectiveTime value="" /> <value unit="" xsi:type="PQ" value="1+" /> < interpretationCode codeSystem="local" code="*" /> <referenceRange> <observationRange> <text>NEGATIVE</text> </ observationRange> </referenceRange> </observation> </ component> <component> <observation moodCode="EVN" classCode="OBS"> <templateId root="2.16.840.1.983868.10.4.2" /> <id nullFlavor="NA" /> <code codeSystem="local" code="SPGRU" displayName= "UA SPECIFIC GRAVITY" /> <statusCode code="completed" /> < effectiveTime value="" /> <value unit="" xsi:type="PQ" value="1.020" /> <referenceRange> <observationRange> <text>1.015-1.025</text> </observationRange> </ referenceRange> </observation> </component> <component> <observation moodCode="EVN" classCode="OBS"> <templateId root= "216.840.1.925220.03.15.22.4.2" /> <id nullFlavor="NA" /> < code codeSystem="local" code="WILLOW" displayName="UR PH" /> <statusCode code="completed" /> <effectiveTime value="" /> < value unit="" xsi:type="PQ" value="6.0" /> <referenceRange> <observationRange> <text>5.0-7.0</text> </ observationRange> </referenceRange> </observation> </ component> </organizer> </entry> <entry> <organizer moodCode="EVN" classCode="BATTERY"> <templateId root="2.16.840.1.420156.10..4.1" /> <id nullFlavor="NA" /> <code codeSystem="local" code="UAMICRO" displayName="UA MICROSCOPIC" /> <statusCode code="completed" /> < component> <observation moodCode="EVN" classCode="OBS"> < templateId root="07.12.840.1.494024.10.20.22.4.2" /> <id nullFlavor="NA " /> <code codeSystem="local" code="BACU" displayName="UA BACTERIA" /> <statusCode code="completed" /> <effectiveTime value= "" /> <value unit="" xsi:type="PQ" value="3+" /> < interpretationCode codeSystem="local" code="*" /> <referenceRange> <observationRange> <text>NEGATIVE</text> </ observationRange> </referenceRange> </observation> </ component> <component> <observation moodCode="EVN" classCode="OBS"> <templateId root="07.12.840.1.503567.10...4.2" /> <id nullFlavor="NA" /> <code codeSystem="local" code="EPIU" displayName=" UA EPITHELIAL CELLS" /> <statusCode code="completed" /> < effectiveTime value="" /> <value unit="epi/hpf" xsi:type= "PQ" value="2+" /> <interpretationCode codeSystem="local" code="*" /> <referenceRange> <observationRange> <text>0 - 1 +</text> </observationRange> </referenceRange> </ observation> </component> <component> <observation moodCode= "EVN" classCode="OBS"> <templateId root="07.12.840.1.788835.10..22.4.2 " /> <id nullFlavor="NA" /> <code codeSystem="local" code= "MUCUSU" displayName="UA MUCUS" /> <statusCode code="completed" /> <effectiveTime value="" /> <value unit="" xsi:type= "PQ" value="3+" /> <interpretationCode codeSystem="local" code="*" /> <referenceRange> <observationRange> <text>NEG TO 1+</text> </observationRange> </referenceRange> </ observation> </component> <component> <observation moodCode= "EVN" classCode="OBS"> <templateId root="216.840.1.693110.10.22.4.2 " /> <id nullFlavor="NA" /> <code codeSystem="local" code= "RBCU" displayName="UA RBC" /> <statusCode code="completed" /> <effectiveTime value="" /> <value unit="rbc/hpf" xsi:type ="PQ" value="10-20" /> <interpretationCode codeSystem="local" code="*" /> <referenceRange> <observationRange> <text>0 - 3</text> </observationRange> </referenceRange> </ observation> </component> <component> <observation moodCode= "EVN" classCode="OBS"> <templateId root="07.12.840.1.806732.22.4.2 " /> <id nullFlavor="NA" /> <code codeSystem="local" code= "UAVOL" displayName="UA VOLUME FOR EXAM" /> <statusCode code="completed " /> <effectiveTime value="" /> <value unit="mL" xsi:type="PQ" value="5.0" /> <referenceRange> < observationRange> <text>(12mL STD)</text> </ observationRange> </referenceRange> </observation> </ component> <component> <observation moodCode="EVN" classCode="OBS"> <templateId root="07.12.840.1.088775.10..22.4.2" /> <id nullFlavor="NA" /> <code codeSystem="local" code="WBCU" displayName=" UA WBC" /> <statusCode code="completed" /> <effectiveTime value="[id number]" /> <value unit="wbc/hpf" xsi:type="PQ" value="5-10 " /> <interpretationCode codeSystem="local" code="*" /> < referenceRange> <observationRange> <text>0 - 5</text> </observationRange> </referenceRange> </observation> </component> </organizer> </entry> <entry> <organizer moodCode="EVN " classCode="BATTERY"> <templateId root="216.840.1.825916.10..22.4.1" / > <id nullFlavor="NA" /> <code codeSystem="local" code="DRUGAB" displayName="UR DRUGS OF ABUSE SCREEN" /> <statusCode code="completed" /> <component> <observation moodCode="EVN" classCode="OBS"> < templateId root="216.840.1.212707.10..22.4.2" /> <id nullFlavor="NA " /> <code codeSystem="local" code="AMPHU" displayName="UR AMPHETAMINES SCREEN" /> <statusCode code="completed" /> < effectiveTime value="[id number]" /> <value unit="" xsi:type="PQ" value="POS (>1000 ng/mL)" /> <interpretationCode codeSystem="local " code="*" /> <referenceRange> <observationRange> <text>NEGATIVE</text> </observationRange> </ referenceRange> </observation> </component> <component> <observation moodCode="EVN" classCode="OBS"> <templateId root= "216.840.1.961928.10..22.4.2" /> <id nullFlavor="NA" /> < code codeSystem="local" code="BARBU" displayName="UR BARBITURATE SCREEN" /> <statusCode code="completed" /> <effectiveTime value= "" /> <value unit="" xsi:type="PQ" value="NEG (< 200 ng /mL)" /> <referenceRange> <observationRange> < text>NEGATIVE</text> </observationRange> </referenceRange> </observation> </component> <component> <observation moodCode="EVN" classCode="OBS"> <templateId root= "2.16.840.1.649441.10..22.4.2" /> <id nullFlavor="NA" /> < code codeSystem="local" code="DAUCOMMENT" displayName="DRUGS OF ABUSE SCREEN COMMENT" /> <statusCode code="completed" /> <effectiveTime value="" /> <value unit="" xsi:type="PQ" value="" /> <referenceRange> <observationRange> <text /> </observationRange> </referenceRange> </observation> </component> <component> <observation moodCode="EVN" classCode= "OBS"> <templateId root="2.16.840.1.194914.10..22.4.2" /> < id nullFlavor="NA" /> <code codeSystem="local" code="OPIU" displayName= "UR OPIATES SCREEN" /> <statusCode code="completed" /> < effectiveTime value="" /> <value unit="" xsi:type="PQ" value="POS (> 300 ng/mL)" /> <interpretationCode codeSystem="local " code="*" /> <referenceRange> <observationRange> <text>NEGATIVE</text> </observationRange> </ referenceRange> </observation> </component> <component> <observation moodCode="EVN" classCode="OBS"> <templateId root= "2.16.840.1.942554.10..22.4.2" /> <id nullFlavor="NA" /> < code codeSystem="local" code="PCPU" displayName="UR PHENCYCLIDINE (PCP) SCREEN" /> <statusCode code="completed" /> <effectiveTime value= "" /> <value unit="" xsi:type="PQ" value="NEG (< 25 ng /mL)" /> <referenceRange> <observationRange> < text>NEGATIVE</text> </observationRange> </referenceRange> </observation> </component> <component> <observation moodCode="EVN" classCode="OBS"> <templateId root= "216.840.1.559347.10..4.2" /> <id nullFlavor="NA" /> < code codeSystem="local" code="THCU" displayName="UR CANNABINOIDS (THC) SCREEN" / > <statusCode code="completed" /> <effectiveTime value= "" /> <value unit="" xsi:type="PQ" value="NEG (< 50 ng /mL)" /> <referenceRange> <observationRange> < text>NEGATIVE</text> </observationRange> </referenceRange> </observation> </component> <component> <observation moodCode="EVN" classCode="OBS"> <templateId root= "216.840.1.783955.10..22.4.2" /> <id nullFlavor="NA" /> < code codeSystem="local" code="COCAU" displayName="UR COCAINE METABOLITE SCREEN" /> <statusCode code="completed" /> <effectiveTime value= "" /> <value unit="" xsi:type="PQ" value="NEG (< 300 ng /mL)" /> <referenceRange> <observationRange> < text>NEGATIVE</text> </observationRange> </referenceRange> </observation> </component> <component> <observation moodCode="EVN" classCode="OBS"> <templateId root= "216.840.1.708729.10.20.22.4.2" /> <id nullFlavor="NA" /> < code codeSystem="local" code="METHU" displayName="UR METHADONE SCREEN" /> <statusCode code="completed" /> <effectiveTime value=" " /> <value unit="" xsi:type="PQ" value="NEG (< 300 ng/mL)" /> <referenceRange> <observationRange> <text>NEGATIVE </text> </observationRange> </referenceRange> </ observation> </component> <component> <observation moodCode= "EVN" classCode="OBS"> <templateId root="216.840.1.087793.10..22.4.2 " /> <id nullFlavor="NA" /> <code codeSystem="local" code= "BENZU" displayName="UR BENZODIAZEPINE SCREEN" /> <statusCode code= "completed" /> <effectiveTime value="053524221423" /> <value unit="" xsi:type="PQ" value="POS (> 200 ng/mL)" /> < interpretationCode codeSystem="local" code="*" /> <referenceRange> <observationRange> <text>NEGATIVE</text> </ observationRange> </referenceRange> </observation> </ component> </organizer> </entry> <entry> <organizer moodCode="EVN" classCode="BATTERY"> <templateId root="2.16.840.1.069890.10..22.4.1" /> <id nullFlavor="NA" /> <code codeSystem="local" code="PT" displayName= "PROTHROMBIN TIME WITH INR" /> <statusCode code="completed" /> < component> <observation moodCode="EVN" classCode="OBS"> < templateId root="216.840.1.137233.10.22.4.2" /> <id nullFlavor="NA " /> <code codeSystem="local" code="INRX" displayName="INTERNATIONAL NORMAL RATIO" /> <statusCode code="completed" /> < effectiveTime value="" /> <value unit="" xsi:type="PQ" value="0.9" /> <referenceRange> <observationRange> <text>0.9-1.1</text> </observationRange> </ referenceRange> </observation> </component> <component> <observation moodCode="EVN" classCode="OBS"> <templateId root= "07.12.840.1.575427.03.15.22.4.2" /> <id nullFlavor="NA" /> < code codeSystem="local" code="PTPAT" displayName="PROTHROMBIN TIME" /> <statusCode code="completed" /> <effectiveTime value="" /> <value unit="sec" xsi:type="PQ" value="9.6" /> < referenceRange> <observationRange> <text>9.2-12.2</text > </observationRange> </referenceRange> </observation > </component> </organizer> </entry> <entry> <organizer moodCode= "EVN" classCode="BATTERY"> <templateId root="16.840.1.793553.10.22.4.1 " /> <id nullFlavor="NA" /> <code codeSystem="local" code="HEPAT" displayName="HEPATITIS PANEL-ACUTE" /> <statusCode code="completed" /> <component> <observation moodCode="EVN" classCode="OBS"> < templateId root="216.840.1.264744.10..22.4.2" /> <id nullFlavor="NA " /> <code codeSystem="local" code="HAVMAB" displayName="AB HEPATITIS A IGM" /> <statusCode code="completed" /> <effectiveTime value ="" /> <value unit="" xsi:type="PQ" value="NEGATIVE" /> <referenceRange> <observationRange> <text> NEGATIVE</text> </observationRange> </referenceRange> </observation> </component> <component> <observation moodCode ="EVN" classCode="OBS"> <templateId root= "216.840.1.630691.10...4.2" /> <id nullFlavor="NA" /> < code codeSystem="local" code="HBSAG" displayName="AG HEPATITIS B SURF." /> <statusCode code="completed" /> <effectiveTime value=" " /> <value unit="" xsi:type="PQ" value="NEGATIVE" /> < referenceRange> <observationRange> <text>NEGATIVE</text > </observationRange> </referenceRange> </observation > </component> <component> <observation moodCode="EVN" classCode="OBS"> <templateId root="16.840.1.481431.10...4.2" /> <id nullFlavor="NA" /> <code codeSystem="local" code="HBCMAB" displayName="AB HEPATITIS B CORE IGM" /> <statusCode code="completed" / > <effectiveTime value="523267682927" /> <value unit="" xsi: type="PQ" value="NEGATIVE" /> <referenceRange> < observationRange> <text>NEGATIVE</text> </ observationRange> </referenceRange> </observation> </ component> <component> <observation moodCode="EVN" classCode="OBS"> <templateId root="2.16.840.1.496299.10.4.2" /> <id nullFlavor="NA" /> <code codeSystem="local" code="HCVAB" displayName= "AB HEPATITIS C" /> <statusCode code="completed" /> < effectiveTime value="179595937983" /> <value unit="" xsi:type="PQ" value="NEGATIVE" /> <referenceRange> <observationRange> <text>NEGATIVE</text> </observationRange> </ referenceRange> </observation> </component> </organizer> </entry > <entry> <organizer moodCode="EVN" classCode="BATTERY"> <templateId root="216.840.1.826131.10..4.1" /> <id nullFlavor="NA" /> <code codeSystem="local" code="CBCD" displayName="CBC W/DIFF" /> <statusCode code ="completed" /> <component> <observation moodCode="EVN" classCode= "OBS"> <templateId root="2.16.840.1.234487.10..22.4.2" /> < id nullFlavor="NA" /> <code codeSystem="local" code="BA#" displayName= "BASOPHIL #" /> <statusCode code="completed" /> < effectiveTime value="052540832895" /> <value unit="k/cumm" xsi:type="PQ " value="0.0" /> <referenceRange> <observationRange> <text>0.0-0.2</text> </observationRange> </ referenceRange> </observation> </component> <component> <observation moodCode="EVN" classCode="OBS"> <templateId root= "16.840.1.661683.10..22.4.2" /> <id nullFlavor="NA" /> < code codeSystem="local" code="BA%" displayName="BASOPHIL %" /> <statusCode code="completed" /> <effectiveTime value="" /> <value unit="%" xsi:type="PQ" value="1" /> < referenceRange> <observationRange> <text>0-1</text> </observationRange> </referenceRange> </observation> </component> <component> <observation moodCode="EVN" classCode= "OBS"> <templateId root="07.12.840.1.444340.10..4.2" /> < id nullFlavor="NA" /> <code codeSystem="local" code="EO#" displayName= "EOSINOPHIL #" /> <statusCode code="completed" /> < effectiveTime value="" /> <value unit="k/cumm" xsi:type="PQ " value="0.1" /> <referenceRange> <observationRange> <text>0.1-0.5</text> </observationRange> </ referenceRange> </observation> </component> <component> <observation moodCode="EVN" classCode="OBS"> <templateId root= "07.12.840.1.806307.10.20.22.4.2" /> <id nullFlavor="NA" /> < code codeSystem="local" code="EO%" displayName="EOSINOPHIL %" /> <statusCode code="completed" /> <effectiveTime value="" /> <value unit="%" xsi:type="PQ" value="3" /> < referenceRange> <observationRange> <text>2-4</text> </observationRange> </referenceRange> </observation> </component> <component> <observation moodCode="EVN" classCode= "OBS"> <templateId root="07.12.840.1.845225.10.20.22.4.2" /> < id nullFlavor="NA" /> <code codeSystem="local" code="GR#" displayName= "GRANULOCYTE #" /> <statusCode code="completed" /> < effectiveTime value="" /> <value unit="k/cumm" xsi:type="PQ " value="1.9" /> <interpretationCode codeSystem="local" code="*" /> <referenceRange> <observationRange> <text>2.0-9.0 </text> </observationRange> </referenceRange> </ observation> </component> <component> <observation moodCode= "EVN" classCode="OBS"> <templateId root="840.1.565472.10.22.4.2 " /> <id nullFlavor="NA" /> <code codeSystem="local" code="GR& #37;" displayName="GRANULOCYTE %" /> <statusCode code="completed" / > <effectiveTime value="" /> <value unit="%" xsi:type="PQ" value="44" /> <interpretationCode codeSystem="local" code ="*" /> <referenceRange> <observationRange> < text>50-75</text> </observationRange> </referenceRange> </observation> </component> <component> <observation moodCode="EVN" classCode="OBS"> <templateId root= "07.12.840.1.408800.10.20.22.4.2" /> <id nullFlavor="NA" /> < code codeSystem="local" code="LY#" displayName="LYMPHOCYTE #" /> < statusCode code="completed" /> <effectiveTime value="" /> <value unit="k/cumm" xsi:type="PQ" value="1.9" /> < referenceRange> <observationRange> <text>1.0-4.0</text> </observationRange> </referenceRange> </observation > </component> <component> <observation moodCode="EVN" classCode="OBS"> <templateId root="216.840.1.533009.10.20.22.4.2" /> <id nullFlavor="NA" /> <code codeSystem="local" code="LY% " displayName="LYMPHOCYTE %" /> <statusCode code="completed" /> <effectiveTime value="" /> <value unit="%" xsi: type="PQ" value="44" /> <interpretationCode codeSystem="local" code="* " /> <referenceRange> <observationRange> <text> 20-30</text> </observationRange> </referenceRange> </ observation> </component> <component> <observation moodCode= "EVN" classCode="OBS"> <templateId root="16.840.1.084826.10.20.22.4.2 " /> <id nullFlavor="NA" /> <code codeSystem="local" code="MCH " displayName="MEAN CELL HGB" /> <statusCode code="completed" /> <effectiveTime value="" /> <value unit="pg" xsi:type= "PQ" value="27.7" /> <referenceRange> <observationRange> <text>27.0-33.0</text> </observationRange> </ referenceRange> </observation> </component> <component> <observation moodCode="EVN" classCode="OBS"> <templateId root= "16.840.1.077043.10.20.22.4.2" /> <id nullFlavor="NA" /> < code codeSystem="local" code="MCHC" displayName="MEAN CELL HGB CONCENTRATION" / > <statusCode code="completed" /> <effectiveTime value= "" /> <value unit="g/dL" xsi:type="PQ" value="31.4" /> <interpretationCode codeSystem="local" code="*" /> < referenceRange> <observationRange> <text>32.0-37.0</text > </observationRange> </referenceRange> </observation > </component> <component> <observation moodCode="EVN" classCode="OBS"> <templateId root="07.12.840.1.610045.1022.4.2" /> <id nullFlavor="NA" /> <code codeSystem="local" code="MCV" displayName="MEAN CELL VOLUME" /> <statusCode code="completed" /> <effectiveTime value="" /> <value unit="fl" xsi:type= "PQ" value="88.2" /> <referenceRange> <observationRange> <text>80.0-100.0</text> </observationRange> </ referenceRange> </observation> </component> <component> <observation moodCode="EVN" classCode="OBS"> <templateId root= "16.840.1.374839.10.20.22.4.2" /> <id nullFlavor="NA" /> < code codeSystem="local" code="MO#" displayName="MONOCYTE #" /> < statusCode code="completed" /> <effectiveTime value="" /> <value unit="k/cumm" xsi:type="PQ" value="0.4" /> < referenceRange> <observationRange> <text>0.1-1.0</text> </observationRange> </referenceRange> </observation > </component> <component> <observation moodCode="EVN" classCode="OBS"> <templateId root="216.840.1.805486.10..22.4.2" /> <id nullFlavor="NA" /> <code codeSystem="local" code="MO% " displayName="MONOCYTE %" /> <statusCode code="completed" /> <effectiveTime value="808576317437" /> <value unit="%" xsi: type="PQ" value="9" /> <interpretationCode codeSystem="local" code="*" /> <referenceRange> <observationRange> <text>4- 6</text> </observationRange> </referenceRange> </ observation> </component> <component> <observation moodCode= "EVN" classCode="OBS"> <templateId root="216.840.1.130421.03.15.22.4.2 " /> <id nullFlavor="NA" /> <code codeSystem="local" code="RBC " displayName="RED BLOOD CELL" /> <statusCode code="completed" /> <effectiveTime value="" /> <value unit="m/cumm" xsi: type="PQ" value="3.72" /> <interpretationCode codeSystem="local" code= "*" /> <referenceRange> <observationRange> < text>4.00-6.00</text> </observationRange> </referenceRange> </observation> </component> <component> <observation moodCode="EVN" classCode="OBS"> <templateId root= "216.840.1.667507..4.2" /> <id nullFlavor="NA" /> < code codeSystem="local" code="RDW" displayName="RED CELL DISTRIBUTION WIDTH" /> <statusCode code="completed" /> <effectiveTime value= "" /> <value unit="%" xsi:type="PQ" value="15.3" /> <referenceRange> <observationRange> <text>11.0- 15.6</text> </observationRange> </referenceRange> </ observation> </component> <component> <observation moodCode= "EVN" classCode="OBS"> <templateId root="216.840.1.502662.03.15.224.2 " /> <id nullFlavor="NA" /> <code codeSystem="local" code="WBC " displayName="WHITE BLOOD CELL" /> <statusCode code="completed" /> <effectiveTime value="" /> <value unit="k/cumm" xsi: type="PQ" value="4.4" /> <interpretationCode codeSystem="local" code="* " /> <referenceRange> <observationRange> <text> 5.0-10.0</text> </observationRange> </referenceRange> </observation> </component> <component> <observation moodCode ="EVN" classCode="OBS"> <templateId root= "16.840.1.258655.03.15.22.4.2" /> <id nullFlavor="NA" /> < code codeSystem="local" code="HGBT" displayName="HEMOGLOBIN" /> < statusCode code="completed" /> <effectiveTime value="" /> <value unit="gm/dL" xsi:type="PQ" value="10.3" /> < interpretationCode codeSystem="local" code="*" /> <referenceRange> <observationRange> <text>12.0-16.0</text> </ observationRange> </referenceRange> </observation> </ component> <component> <observation moodCode="EVN" classCode="OBS"> <templateId root="07.12.840.1.847413.10.20.22.4.2" /> <id nullFlavor="NA" /> <code codeSystem="local" code="HCTT" displayName= "HEMATOCRIT" /> <statusCode code="completed" /> < effectiveTime value="" /> <value unit="%" xsi:type="PQ " value="32.8" /> <interpretationCode codeSystem="local" code="*" /> <referenceRange> <observationRange> <text>37.0- 47.0</text> </observationRange> </referenceRange> </ observation> </component> <component> <observation moodCode= "EVN" classCode="OBS"> <templateId root="840.1.893513.10..4.2 " /> <id nullFlavor="NA" /> <code codeSystem="local" code="PLT " displayName="PLATELET COUNT" /> <statusCode code="completed" /> <effectiveTime value="" /> <value unit="k/cumm" xsi: type="PQ" value="162" /> <referenceRange> <observationRange > <text>150-400</text> </observationRange> </ referenceRange> </observation> </component> </organizer> </entry > <entry> <organizer moodCode="EVN" classCode="BATTERY"> <templateId root="07.12.840.1.962924.10.20.22.4.1" /> <id nullFlavor="NA" /> <code codeSystem="local" code="METABC" displayName="METABOLIC PANEL, COMPREHN" /> <statusCode code="completed" /> <component> <observation moodCode= "EVN" classCode="OBS"> <templateId root="07.12.840.1.149362.03.15.22.4.2 " /> <id nullFlavor="NA" /> <code codeSystem="local" code="K" displayName="POTASSIUM" /> <statusCode code="completed" /> < effectiveTime value="510257861088" /> <value unit="mmol/L" xsi:type="PQ " value="4.2" /> <referenceRange> <observationRange> <text>3.5-5.3</text> </observationRange> </ referenceRange> </observation> </component> <component> <observation moodCode="EVN" classCode="OBS"> <templateId root= "840.1.199637.03.15.22.4.2" /> <id nullFlavor="NA" /> < code codeSystem="local" code="eGFR" displayName="EST GFR (MDRD)" /> < statusCode code="completed" /> <effectiveTime value="250049218673" /> <value unit="mL/min" xsi:type="PQ" value="> 60" /> < referenceRange> <observationRange> <text>> 59</text> </observationRange> </referenceRange> </observation > </component> <component> <observation moodCode="EVN" classCode="OBS"> <templateId root="07.12.840.1.903564.03.15.22.4.2" /> <id nullFlavor="NA" /> <code codeSystem="local" code="GAP" displayName="ANION GAP" /> <statusCode code="completed" /> < effectiveTime value="357513018471" /> <value unit="mmol/L" xsi:type="PQ " value="6" /> <referenceRange> <observationRange> <text>5-15</text> </observationRange> </referenceRange > </observation> </component> <component> <observation moodCode="EVN" classCode="OBS"> <templateId root= "16.840.1.765932.10..22.4.2" /> <id nullFlavor="NA" /> < code codeSystem="local" code="eCrCl" displayName="EST CrCl (CG)" /> < statusCode code="completed" /> <effectiveTime value="434933324019" /> <value unit="mL/min" xsi:type="PQ" value="> 60" /> < referenceRange> <observationRange> <text>> 59</text> </observationRange> </referenceRange> </observation > </component> <component> <observation moodCode="EVN" classCode="OBS"> <templateId root="840.1.472334.10..4.2" /> <id nullFlavor="NA" /> <code codeSystem="local" code="GLU" displayName="GLUCOSE" /> <statusCode code="completed" /> < effectiveTime value="743428122992" /> <value unit="mg/dL" xsi:type="PQ " value="87" /> <referenceRange> <observationRange> <text>70-99</text> </observationRange> </ referenceRange> </observation> </component> <component> <observation moodCode="EVN" classCode="OBS"> <templateId root= "07.12.840.1.954097.10.20.22.4.2" /> <id nullFlavor="NA" /> < code codeSystem="local" code="CA" displayName="CALCIUM" /> <statusCode code="completed" /> <effectiveTime value="075075088315" /> < value unit="mg/dL" xsi:type="PQ" value="8.3" /> <interpretationCode codeSystem="local" code="*" /> <referenceRange> < observationRange> <text>8.5-10.1</text> </ observationRange> </referenceRange> </observation> </ component> <component> <observation moodCode="EVN" classCode="OBS"> <templateId root="216.840.1.058884.10..22.4.2" /> <id nullFlavor="NA" /> <code codeSystem="local" code="BUN" displayName= "BLOOD UREA NITROGEN" /> <statusCode code="completed" /> < effectiveTime value="953205162774" /> <value unit="mg/dL" xsi:type="PQ " value="8" /> <referenceRange> <observationRange> <text>7-20</text> </observationRange> </referenceRange > </observation> </component> <component> <observation moodCode="EVN" classCode="OBS"> <templateId root= "216.840.1.780826.10.20.22.4.2" /> <id nullFlavor="NA" /> < code codeSystem="local" code="CREAT" displayName="CREATININE" /> < statusCode code="completed" /> <effectiveTime value="646620324035" /> <value unit="mg/dL" xsi:type="PQ" value="0.6" /> < referenceRange> <observationRange> <text>0.6-1.0</text> </observationRange> </referenceRange> </observation > </component> <component> <observation moodCode="EVN" classCode="OBS"> <templateId root="216.840.1.806265...22.4.2" /> <id nullFlavor="NA" /> <code codeSystem="local" code="NA" displayName="SODIUM" /> <statusCode code="completed" /> < effectiveTime value="347346003834" /> <value unit="mmol/L" xsi:type="PQ " value="139" /> <referenceRange> <observationRange> <text>135-148</text> </observationRange> </ referenceRange> </observation> </component> <component> <observation moodCode="EVN" classCode="OBS"> <templateId root= "216.840.1.064228....4.2" /> <id nullFlavor="NA" /> < code codeSystem="local" code="CL" displayName="CHLORIDE" /> < statusCode code="completed" /> <effectiveTime value="626649727517" /> <value unit="mmol/L" xsi:type="PQ" value="108" /> < referenceRange> <observationRange> <text>98-110</text> </observationRange> </referenceRange> </observation> </component> <component> <observation moodCode="EVN" classCode ="OBS"> <templateId root="216.840.1.315852...22.4.2" /> < id nullFlavor="NA" /> <code codeSystem="local" code="AST" displayName= "AST/SGOT" /> <statusCode code="completed" /> <effectiveTime value="402632122046" /> <value unit="Units/L" xsi:type="PQ" value="89" /> <interpretationCode codeSystem="local" code="*" /> < referenceRange> <observationRange> <text>10-37</text> </observationRange> </referenceRange> </observation> </component> <component> <observation moodCode="EVN" classCode= "OBS"> <templateId root="216.840.1.845656.10..4.2" /> < id nullFlavor="NA" /> <code codeSystem="local" code="ALT" displayName= "ALT/SGPT" /> <statusCode code="completed" /> <effectiveTime value="539057372739" /> <value unit="Units/L" xsi:type="PQ" value="194 " /> <interpretationCode codeSystem="local" code="*" /> < referenceRange> <observationRange> <text>< 66</text> </observationRange> </referenceRange> </observation > </component> <component> <observation moodCode="EVN" classCode="OBS"> <templateId root="216.840.1.673825.03.15.22.4.2" /> <id nullFlavor="NA" /> <code codeSystem="local" code="CO2" displayName="CARBON DIOXIDE" /> <statusCode code="completed" /> <effectiveTime value="512384953188" /> <value unit="mmol/L" xsi:type ="PQ" value="25" /> <referenceRange> <observationRange> <text>21-32</text> </observationRange> </ referenceRange> </observation> </component> <component> <observation moodCode="EVN" classCode="OBS"> <templateId root= "216.840.1.200660.10..4.2" /> <id nullFlavor="NA" /> < code codeSystem="local" code="TP" displayName="TOTAL PROTEIN" /> < statusCode code="completed" /> <effectiveTime value="715924746090" /> <value unit="gm/dL" xsi:type="PQ" value="5.9" /> < interpretationCode codeSystem="local" code="*" /> <referenceRange> <observationRange> <text>6.4-8.2</text> </ observationRange> </referenceRange> </observation> </ component> <component> <observation moodCode="EVN" classCode="OBS"> <templateId root="16.840.1.187105.22.4.2" /> <id nullFlavor="NA" /> <code codeSystem="local" code="ALB" displayName= "ALBUMIN" /> <statusCode code="completed" /> <effectiveTime value="383359326653" /> <value unit="gm/dL" xsi:type="PQ" value="2.8" / > <interpretationCode codeSystem="local" code="*" /> < referenceRange> <observationRange> <text>3.4-5.0</text> </observationRange> </referenceRange> </observation > </component> <component> <observation moodCode="EVN" classCode="OBS"> <templateId root="16.840.1.970217.03.15.22.4.2" /> <id nullFlavor="NA" /> <code codeSystem="local" code="BILTOT" displayName="BILI TOTAL" /> <statusCode code="completed" /> < effectiveTime value="321956816644" /> <value unit="mg/dL" xsi:type="PQ " value="0.2" /> <referenceRange> <observationRange> <text>0.0-1.0</text> </observationRange> </ referenceRange> </observation> </component> <component> <observation moodCode="EVN" classCode="OBS"> <templateId root= "216.840.1.656168.03.15.22.4.2" /> <id nullFlavor="NA" /> < code codeSystem="local" code="ALKP" displayName="ALKALINE PHOSPHATASE TOTAL" /> <statusCode code="completed" /> <effectiveTime value= "295579638947" /> <value unit="IU/L" xsi:type="PQ" value="118" /> <interpretationCode codeSystem="local" code="*" /> <referenceRange > <observationRange> <text>45-117</text> </ observationRange> </referenceRange> </observation> </ component> </organizer> </entry> <entry> <organizer moodCode="EVN" classCode="BATTERY"> <templateId root="216.840.1.338943.03.15.22.4.1" /> <id nullFlavor="NA" /> <code codeSystem="local" code="BILC" displayName="BILI CONJUGATED" /> <statusCode code="completed" /> < component> <observation moodCode="EVN" classCode="OBS"> < templateId root="216.840.1.745209.03.15.22.4.2" /> <id nullFlavor="NA " /> <code codeSystem="local" code="BILC" displayName="BILI CONJUGATED " /> <statusCode code="completed" /> <effectiveTime value= "[id number]" /> <value unit="mg/dL" xsi:type="PQ" value="< 0.1" / > <referenceRange> <observationRange> <text>0.0 -0.3</text> </observationRange> </referenceRange> </ observation> </component> </organizer> </entry> <entry> <organizer moodCode="EVN" classCode="BATTERY"> <templateId root= "216.840.1.563399.03.15.22.4.1" /> <id nullFlavor="NA" /> <code codeSystem="local" code="EDRBW" displayName="ED RAINBOW COLLECT" /> < statusCode code="completed" /> <component> <observation moodCode= "EVN" classCode="OBS"> <templateId root="16.840.1.505329.03.15.22.4.2 " /> <id nullFlavor="NA" /> <code codeSystem="local" code="PST " displayName="PLASMA SEPARATOR TUBE" /> <statusCode code="completed" / > <effectiveTime value="" /> <value unit="mL" xsi: type="PQ" value="Done" /> <referenceRange> <observationRange > <text /> </observationRange> </referenceRange > </observation> </component> <component> <observation moodCode="EVN" classCode="OBS"> <templateId root= "07.12.840.1.305902.03.15.224.2" /> <id nullFlavor="NA" /> < code codeSystem="local" code="SST" displayName="SERUM SEPARATOR TUBE" /> <statusCode code="completed" /> <effectiveTime value="" /> <value unit="mL" xsi:type="PQ" value="Done" /> < referenceRange> <observationRange> <text /> < /observationRange> </referenceRange> </observation> </ component> <component> <observation moodCode="EVN" classCode="OBS"> <templateId root="07.12.840.1.421139.03.15.22.4.2" /> <id nullFlavor="NA" /> <code codeSystem="local" code="LON" displayName= "CITRATE BLUE" /> <statusCode code="completed" /> < effectiveTime value="" /> <value unit="mL" xsi:type="PQ" value="Done" /> <referenceRange> <observationRange> <text /> </observationRange> </referenceRange> </observation> </component> <component> <observation moodCode= "EVN" classCode="OBS"> <templateId root="16.840.1.677672.03.15.22.4.2 " /> <id nullFlavor="NA" /> <code codeSystem="local" code="LAV " displayName="Lavendar Tube" /> <statusCode code="completed" /> <effectiveTime value="[id number]" /> <value unit="mL" xsi:type= "PQ" value="Done" /> <referenceRange> <observationRange> <text /> </observationRange> </referenceRange> </observation> </component> </organizer> </entry> <entry> < organizer moodCode="EVN" classCode="BATTERY"> <templateId root= "07.12.840.1.805939.03.15.22.4.1" /> <id nullFlavor="NA" /> <code codeSystem="local" code="UMIC" displayName="Urine Microscopic" /> < statusCode code="completed" /> <component> <observation moodCode= "EVN" classCode="OBS"> <templateId root="07.12.840.1.777646.03.15.22.4.2 " /> <id nullFlavor="NA" /> <code codeSystem="local" code= "UBAC" displayName="Bacteria" /> <statusCode code="completed" /> <effectiveTime value="[id number]" /> <value unit="NA" xsi:type= "PQ" value="Occasional" /> <interpretationCode codeSystem="local" code= "*" /> <referenceRange> <observationRange> < text /> </observationRange> </referenceRange> </ observation> </component> <component> <observation moodCode= "EVN" classCode="OBS"> <templateId root="216.840.1.460244.1022.4.2 " /> <id nullFlavor="NA" /> <code codeSystem="local" code= "UCRY1" displayName="Crystals" /> <statusCode code="completed" /> <effectiveTime value="" /> <value unit="NA" xsi:type= "PQ" value="Ca Ox" /> <referenceRange> <observationRange> <text /> </observationRange> </referenceRange> </observation> </component> <component> <observation moodCode="EVN" classCode="OBS"> <templateId root= "16.840.1.425901.03.15.22.4.2" /> <id nullFlavor="NA" /> < code codeSystem="local" code="UEPI" displayName="Epithelial Cells" /> < statusCode code="completed" /> <effectiveTime value="" /> <value unit="/HPF" xsi:type="PQ" value="2" /> <referenceRange > <observationRange> <text /> </ observationRange> </referenceRange> </observation> </ component> <component> <observation moodCode="EVN" classCode="OBS"> <templateId root="07.12.840.1.310663.1022.4.2" /> <id nullFlavor="NA" /> <code codeSystem="local" code="URBC" displayName= "RBC, Urine" /> <statusCode code="completed" /> < effectiveTime value="" /> <value unit="/HPF" xsi:type="PQ" value="20" /> <interpretationCode codeSystem="local" code="*" /> <referenceRange> <observationRange> <text>0-2</text > </observationRange> </referenceRange> </observation > </component> <component> <observation moodCode="EVN" classCode="OBS"> <templateId root="16.840.1.571417.10...4.2" /> <id nullFlavor="NA" /> <code codeSystem="local" code="UMUC" displayName="Urine Mucus" /> <statusCode code="completed" /> < effectiveTime value="[id number]" /> <value unit="NA" xsi:type="PQ" value="Present" /> <referenceRange> <observationRange> <text /> </observationRange> </referenceRange> </observation> </component> <component> <observation moodCode="EVN" classCode="OBS"> <templateId root= "07.12.840.1.352240.10..4.2" /> <id nullFlavor="NA" /> < code codeSystem="local" code="UWBC" displayName="WBC, Urine" /> < statusCode code="completed" /> <effectiveTime value="088261635928" /> <value unit="/HPF" xsi:type="PQ" value="0" /> <referenceRange > <observationRange> <text>0-4</text> </ observationRange> </referenceRange> </observation> </ component> </organizer> </entry> <entry> <organizer moodCode="EVN" classCode="BATTERY"> <templateId root="07.12.840.1.694350.10...4.1" /> <id nullFlavor="NA" /> <code codeSystem="local" code="UA" displayName= "Urinalysis with reflex microscopic" /> <statusCode code="completed" /> <component> <observation moodCode="EVN" classCode="OBS"> < templateId root="16.840.1.193001.10.4.2" /> <id nullFlavor="NA " /> <code codeSystem="local" code="UAPP" displayName="Appearance" /> <statusCode code="completed" /> <effectiveTime value= "" /> <value unit="NA" xsi:type="PQ" value="Cloudy" /> <interpretationCode codeSystem="local" code="*" /> < referenceRange> <observationRange> <text /> < /observationRange> </referenceRange> </observation> </ component> <component> <observation moodCode="EVN" classCode="OBS"> <templateId root="07.12.840.1.306159.03.15.22.4.2" /> <id nullFlavor="NA" /> <code codeSystem="local" code="UBIL" displayName= "Bilirubin" /> <statusCode code="completed" /> <effectiveTime value="" /> <value unit="NA" xsi:type="PQ" value="Negative " /> <referenceRange> <observationRange> <text> Negative</text> </observationRange> </referenceRange> </observation> </component> <component> <observation moodCode ="EVN" classCode="OBS"> <templateId root= "16.840.1.677419.10.22.4.2" /> <id nullFlavor="NA" /> < code codeSystem="local" code="UBLD" displayName="Blood" /> <statusCode code="completed" /> <effectiveTime value="" /> < value unit="NA" xsi:type="PQ" value="Pos 3+" /> <interpretationCode codeSystem="local" code="*" /> <referenceRange> < observationRange> <text>Negative</text> </ observationRange> </referenceRange> </observation> </ component> <component> <observation moodCode="EVN" classCode="OBS"> <templateId root="16.840.1.135801.10.22.4.2" /> <id nullFlavor="NA" /> <code codeSystem="local" code="UCOLR" displayName= "Color" /> <statusCode code="completed" /> <effectiveTime value="" /> <value unit="NA" xsi:type="PQ" value="Yellow" / > <referenceRange> <observationRange> <text /> </observationRange> </referenceRange> </observation > </component> <component> <observation moodCode="EVN" classCode="OBS"> <templateId root="07.12.840.1.101138.10.4.2" /> <id nullFlavor="NA" /> <code codeSystem="local" code="UGLU" displayName="Glucose, Urine" /> <statusCode code="completed" /> <effectiveTime value="" /> <value unit="" xsi:type="PQ" value="Negative" /> <referenceRange> <observationRange> <text>Negative</text> </observationRange> </ referenceRange> </observation> </component> <component> <observation moodCode="EVN" classCode="OBS"> <templateId root= "07.12.840.1.074364.1022.4.2" /> <id nullFlavor="NA" /> < code codeSystem="local" code="UKET" displayName="Ketones" /> < statusCode code="completed" /> <effectiveTime value="" /> <value unit="" xsi:type="PQ" value="Trace" /> < interpretationCode codeSystem="local" code="*" /> <referenceRange> <observationRange> <text>Negative</text> </ observationRange> </referenceRange> </observation> </ component> <component> <observation moodCode="EVN" classCode="OBS"> <templateId root="07.12.840.1.271677.10.4.2" /> <id nullFlavor="NA" /> <code codeSystem="local" code="ULEU" displayName= "Leukocyte Esterase" /> <statusCode code="completed" /> < effectiveTime value="223869549495" /> <value unit="NA" xsi:type="PQ" value="Negative" /> <referenceRange> <observationRange> <text>Negative</text> </observationRange> </ referenceRange> </observation> </component> <component> <observation moodCode="EVN" classCode="OBS"> <templateId root= "840.1.317552.03.15.22.4.2" /> <id nullFlavor="NA" /> < code codeSystem="local" code="UNIT" displayName="Nitrites" /> < statusCode code="completed" /> <effectiveTime value="909147171735" /> <value unit="NA" xsi:type="PQ" value="Negative" /> < referenceRange> <observationRange> <text>Negative</text > </observationRange> </referenceRange> </observation > </component> <component> <observation moodCode="EVN" classCode="OBS"> <templateId root="07.12.840.1.335705.22.4.2" /> <id nullFlavor="NA" /> <code codeSystem="local" code="UPH" displayName="pH" /> <statusCode code="completed" /> < effectiveTime value="824548672919" /> <value unit="NA" xsi:type="PQ" value="6.0" /> <referenceRange> <observationRange> <text>5.0-8.0</text> </observationRange> </ referenceRange> </observation> </component> <component> <observation moodCode="EVN" classCode="OBS"> <templateId root= "16.840.1.132330.10.20.22.4.2" /> <id nullFlavor="NA" /> < code codeSystem="local" code="UPRO" displayName="Protein" /> < statusCode code="completed" /> <effectiveTime value="936716128340" /> <value unit="NA" xsi:type="PQ" value="Pos 1+" /> < interpretationCode codeSystem="local" code="*" /> <referenceRange> <observationRange> <text>Negative</text> </ observationRange> </referenceRange> </observation> </ component> <component> <observation moodCode="EVN" classCode="OBS"> <templateId root="16.840.1.520605.10.20.22.4.2" /> <id nullFlavor="NA" /> <code codeSystem="local" code="USPG" displayName= "Specific [place]" /> <statusCode code="completed" /> < effectiveTime value="011793003788" /> <value unit="NA" xsi:type="PQ" value="1.030" /> <referenceRange> <observationRange> <text>1.003-1.030</text> </observationRange> </ referenceRange> </observation> </component> <component> <observation moodCode="EVN" classCode="OBS"> <templateId root= "2.16.840.1.074615.03.15.22.4.2" /> <id nullFlavor="NA" /> < code codeSystem="local" code="UTYP" displayName="UA Collection type" /> <statusCode code="completed" /> <effectiveTime value="347855184007" / > <value unit="NA" xsi:type="PQ" value="Clean Catch" /> < referenceRange> <observationRange> <text /> < /observationRange> </referenceRange> </observation> </ component> <component> <observation moodCode="EVN" classCode="OBS"> <templateId root="07.12.840.1.163460.03.15.22.4.2" /> <id nullFlavor="NA" /> <code codeSystem="local" code="UURO" displayName= "Urobilinogen" /> <statusCode code="completed" /> < effectiveTime value="264412379163" /> <value unit="mg/dL" xsi:type="PQ " value="2.0" /> <interpretationCode codeSystem="local" code="*" /> <referenceRange> <observationRange> <text><1.0 </text> </observationRange> </referenceRange> </ observation> </component> </organizer> </entry> <entry> <organizer moodCode="EVN" classCode="BATTERY"> <templateId root= "07.12.840.1.172453.03.15.22.4.1" /> <id nullFlavor="NA" /> <code codeSystem="local" code="CBCWD" displayName="CBC With Platelet and Differential " /> <statusCode code="completed" /> <component> <observation moodCode="EVN" classCode="OBS"> <templateId root= "07.12.840.1.727611.03.15.22.4.2" /> <id nullFlavor="NA" /> < code codeSystem="local" code="ABASR" displayName="Absolute Basophils" /> <statusCode code="completed" /> <effectiveTime value="" /> <value unit="10*3" xsi:type="PQ" value="0.07" /> < referenceRange> <observationRange> <text>0.00-0.20</text > </observationRange> </referenceRange> </observation > </component> <component> <observation moodCode="EVN" classCode="OBS"> <templateId root="216.840.1.348282.03.15.22.4.2" /> <id nullFlavor="NA" /> <code codeSystem="local" code="AEOSR" displayName="Absolute Eosinophils" /> <statusCode code="completed" /> <effectiveTime value="" /> <value unit="10*3" xsi: type="PQ" value="0.14" /> <referenceRange> <observationRange > <text>0.00-0.50</text> </observationRange> </ referenceRange> </observation> </component> <component> <observation moodCode="EVN" classCode="OBS"> <templateId root= "216.840.1.916700.03.15.22.4.2" /> <id nullFlavor="NA" /> < code codeSystem="local" code="ALYMR" displayName="Absolute Lymphocytes" /> <statusCode code="completed" /> <effectiveTime value=" " /> <value unit="10*3" xsi:type="PQ" value="3.59" /> < interpretationCode codeSystem="local" code="*" /> <referenceRange> <observationRange> <text>0.80-3.30</text> </ observationRange> </referenceRange> </observation> </ component> <component> <observation moodCode="EVN" classCode="OBS"> <templateId root="216.840.1.211912.1022.4.2" /> <id nullFlavor="NA" /> <code codeSystem="local" code="AMONR" displayName= "Absolute Monocytes" /> <statusCode code="completed" /> < effectiveTime value="" /> <value unit="10*3" xsi:type="PQ" value="0.65" /> <referenceRange> <observationRange> <text>0.30-1.00</text> </observationRange> </ referenceRange> </observation> </component> <component> <observation moodCode="EVN" classCode="OBS"> <templateId root= "07.12.840.1.521146.10.4.2" /> <id nullFlavor="NA" /> < code codeSystem="local" code="ASEGR" displayName="Absolute Neutrophils" /> <statusCode code="completed" /> <effectiveTime value=" " /> <value unit="10*3" xsi:type="PQ" value="4.01" /> < referenceRange> <observationRange> <text>1.90-7.00</text > </observationRange> </referenceRange> </observation > </component> <component> <observation moodCode="EVN" classCode="OBS"> <templateId root="16.840.1.343938.22.4.2" /> <id nullFlavor="NA" /> <code codeSystem="local" code="BASOR" displayName="Basophils" /> <statusCode code="completed" /> < effectiveTime value="" /> <value unit="%" xsi:type="PQ " value="1" /> <referenceRange> <observationRange> <text>0-2</text> </observationRange> </referenceRange> </observation> </component> <component> <observation moodCode="EVN" classCode="OBS"> <templateId root= "16.840.1.165166.10.20.22.4.2" /> <id nullFlavor="NA" /> < code codeSystem="local" code="EOSR" displayName="Eosinophils" /> < statusCode code="completed" /> <effectiveTime value="221453924978" /> <value unit="%" xsi:type="PQ" value="2" /> <referenceRange > <observationRange> <text>0-4</text> </ observationRange> </referenceRange> </observation> </ component> <component> <observation moodCode="EVN" classCode="OBS"> <templateId root="07.12.840.1.420889.10...4.2" /> <id nullFlavor="NA" /> <code codeSystem="local" code="HCT" displayName="HCT " /> <statusCode code="completed" /> <effectiveTime value= "643283831365" /> <value unit="%" xsi:type="PQ" value="35.7" /> <interpretationCode codeSystem="local" code="*" /> < referenceRange> <observationRange> <text>37.0-47.0</text > </observationRange> </referenceRange> </observation > </component> <component> <observation moodCode="EVN" classCode="OBS"> <templateId root="07.12.840.1.002567.10.20.22.4.2" /> <id nullFlavor="NA" /> <code codeSystem="local" code="HGB" displayName="HGB" /> <statusCode code="completed" /> < effectiveTime value="" /> <value unit="g/dL" xsi:type="PQ" value="11.0" /> <interpretationCode codeSystem="local" code="*" /> <referenceRange> <observationRange> <text>12.0- 16.0</text> </observationRange> </referenceRange> </ observation> </component> <component> <observation moodCode= "EVN" classCode="OBS"> <templateId root="2.16.840.1.526577.10...4.2 " /> <id nullFlavor="NA" /> <code codeSystem="local" code= "IMGA" displayName="Immature Granulocytes" /> <statusCode code= "completed" /> <effectiveTime value="" /> <value unit="%" xsi:type="PQ" value="0.1" /> <referenceRange> < observationRange> <text>0.0-1.0</text> </ observationRange> </referenceRange> </observation> </ component> <component> <observation moodCode="EVN" classCode="OBS"> <templateId root="2.16.840.1.281801....4.2" /> <id nullFlavor="NA" /> <code codeSystem="local" code="LYMPR" displayName= "Lymphocytes" /> <statusCode code="completed" /> < effectiveTime value="" /> <value unit="%" xsi:type="PQ " value="42" /> <referenceRange> <observationRange> <text>20-46</text> </observationRange> </ referenceRange> </observation> </component> <component> <observation moodCode="EVN" classCode="OBS"> <templateId root= "07.12.840.1.608566.10...4.2" /> <id nullFlavor="NA" /> < code codeSystem="local" code="MCH" displayName="MCH" /> <statusCode code="completed" /> <effectiveTime value="" /> < value unit="pg" xsi:type="PQ" value="25.3" /> <interpretationCode codeSystem="local" code="*" /> <referenceRange> < observationRange> <text>27.0-32.0</text> </ observationRange> </referenceRange> </observation> </ component> <component> <observation moodCode="EVN" classCode="OBS"> <templateId root="07.12.840.1.017184.03.15.224.2" /> <id nullFlavor="NA" /> <code codeSystem="local" code="MCHC" displayName= "MCHC" /> <statusCode code="completed" /> <effectiveTime value ="" /> <value unit="g/dL" xsi:type="PQ" value="30.8" /> <interpretationCode codeSystem="local" code="*" /> < referenceRange> <observationRange> <text>32.0-36.0</text > </observationRange> </referenceRange> </observation > </component> <component> <observation moodCode="EVN" classCode="OBS"> <templateId root="07.12.840.1.314949..22.4.2" /> <id nullFlavor="NA" /> <code codeSystem="local" code="MCV" displayName="MCV" /> <statusCode code="completed" /> < effectiveTime value="477555147500" /> <value unit="fL" xsi:type="PQ" value="82.1" /> <referenceRange> <observationRange> <text>82.0-99.0</text> </observationRange> </ referenceRange> </observation> </component> <component> <observation moodCode="EVN" classCode="OBS"> <templateId root= "216.840.1.643766.10..22.4.2" /> <id nullFlavor="NA" /> < code codeSystem="local" code="MONOR" displayName="Monocytes" /> < statusCode code="completed" /> <effectiveTime value="" /> <value unit="%" xsi:type="PQ" value="8" /> <referenceRange > <observationRange> <text>4-11</text> </ observationRange> </referenceRange> </observation> </ component> <component> <observation moodCode="EVN" classCode="OBS"> <templateId root="07.12.840.1.358206.10.22.4.2" /> <id nullFlavor="NA" /> <code codeSystem="local" code="MPV" displayName="MPV " /> <statusCode code="completed" /> <effectiveTime value= "159986666688" /> <value unit="fL" xsi:type="PQ" value="9.5" /> <referenceRange> <observationRange> <text>9.4-12.4</ text> </observationRange> </referenceRange> </ observation> </component> <component> <observation moodCode= "EVN" classCode="OBS"> <templateId root="07.12.840.1.502232.10.20.22.4.2 " /> <id nullFlavor="NA" /> <code codeSystem="local" code= "SEGR" displayName="Neutrophils" /> <statusCode code="completed" /> <effectiveTime value="437887873250" /> <value unit="%" xsi: type="PQ" value="47" /> <interpretationCode codeSystem="local" code="* " /> <referenceRange> <observationRange> <text> 51-75</text> </observationRange> </referenceRange> </ observation> </component> <component> <observation moodCode= "EVN" classCode="OBS"> <templateId root="840.1.833512.10.20.22.4.2 " /> <id nullFlavor="NA" /> <code codeSystem="local" code="PLT " displayName="Platelet Count" /> <statusCode code="completed" /> <effectiveTime value="900373686025" /> <value unit="K/uL" xsi:type ="PQ" value="282" /> <referenceRange> <observationRange> <text>150-400</text> </observationRange> </ referenceRange> </observation> </component> <component> <observation moodCode="EVN" classCode="OBS"> <templateId root= "840.1.031643.10.20.22.4.2" /> <id nullFlavor="NA" /> < code codeSystem="local" code="RBC" displayName="RBC" /> <statusCode code="completed" /> <effectiveTime value="317128274880" /> < value unit="10*6/uL" xsi:type="PQ" value="4.35" /> <referenceRange> <observationRange> <text>4.00-5.20</text> </ observationRange> </referenceRange> </observation> </ component> <component> <observation moodCode="EVN" classCode="OBS"> <templateId root="07.12.830.1.194714.10..22.4.2" /> <id nullFlavor="NA" /> <code codeSystem="local" code="RDW" displayName="RDW " /> <statusCode code="completed" /> <effectiveTime value= "567673220365" /> <value unit="%" xsi:type="PQ" value="16.6" /> <interpretationCode codeSystem="local" code="*" /> < referenceRange> <observationRange> <text>11.5-14.5</text > </observationRange> </referenceRange> </observation > </component> <component> <observation moodCode="EVN" classCode="OBS"> <templateId root="07.12.840.1.280087.03.15.22.4.2" /> <id nullFlavor="NA" /> <code codeSystem="local" code="WBCIR" displayName="WBC" /> <statusCode code="completed" /> < effectiveTime value="217247986060" /> <value unit="K/uL" xsi:type="PQ" value="8.5" /> <referenceRange> <observationRange> <text>4.8-10.8</text> </observationRange> </ referenceRange> </observation> </component> </organizer> </entry > <entry> <organizer moodCode="EVN" classCode="BATTERY"> <templateId root="16.840.1.760510.10..22.4.1" /> <id nullFlavor="NA" /> <code codeSystem="local" code="CMP" displayName="Comprehensive Metabolic Panel (CMP)" /> <statusCode code="completed" /> <component> <observation moodCode="EVN" classCode="OBS"> <templateId root= "07.12.840.1.641936.22.4.2" /> <id nullFlavor="NA" /> < code codeSystem="local" code="ALB" displayName="Albumin" /> < statusCode code="completed" /> <effectiveTime value="" /> <value unit="g/dL" xsi:type="PQ" value="3.9" /> < referenceRange> <observationRange> <text>3.5-4.8</text> </observationRange> </referenceRange> </observation > </component> <component> <observation moodCode="EVN" classCode="OBS"> <templateId root="2.16.840.1.452269.03.15.22.4.2" /> <id nullFlavor="NA" /> <code codeSystem="local" code="ALP" displayName="Alkaline Phosphatase" /> <statusCode code="completed" /> <effectiveTime value="" /> <value unit="U/L" xsi: type="PQ" value="71" /> <referenceRange> <observationRange> <text>26-104</text> </observationRange> </ referenceRange> </observation> </component> <component> <observation moodCode="EVN" classCode="OBS"> <templateId root= "216.840.1.023063.03.15.22.4.2" /> <id nullFlavor="NA" /> < code codeSystem="local" code="ALT" displayName="ALT (SGPT)" /> < statusCode code="completed" /> <effectiveTime value="" /> <value unit="U/L" xsi:type="PQ" value="12" /> < interpretationCode codeSystem="local" code="*" /> <referenceRange> <observationRange> <text>14-54</text> </ observationRange> </referenceRange> </observation> </ component> <component> <observation moodCode="EVN" classCode="OBS"> <templateId root="216.840.1.119067.10...4.2" /> <id nullFlavor="NA" /> <code codeSystem="local" code="AGAP" displayName= "Anion Gap" /> <statusCode code="completed" /> <effectiveTime value="" /> <value unit="NA" xsi:type="PQ" value="6" /> <referenceRange> <observationRange> <text>3-20</ text> </observationRange> </referenceRange> </ observation> </component> <component> <observation moodCode= "EVN" classCode="OBS"> <templateId root="2.840.1.646385...4.2 " /> <id nullFlavor="NA" /> <code codeSystem="local" code="AST " displayName="AST (SGOT)" /> <statusCode code="completed" /> <effectiveTime value="" /> <value unit="U/L" xsi:type="PQ" value="17" /> <referenceRange> <observationRange> <text>15-41</text> </observationRange> </referenceRange > </observation> </component> <component> <observation moodCode="EVN" classCode="OBS"> <templateId root= "07.12.840.1.033798.10..22.4.2" /> <id nullFlavor="NA" /> < code codeSystem="local" code="BILIT" displayName="Bilirubin Total" /> < statusCode code="completed" /> <effectiveTime value="" /> <value unit="mg/dL" xsi:type="PQ" value="0.7" /> < referenceRange> <observationRange> <text>0.2-1.2</text> </observationRange> </referenceRange> </observation > </component> <component> <observation moodCode="EVN" classCode="OBS"> <templateId root="16.840.1.489579.10...4.2" /> <id nullFlavor="NA" /> <code codeSystem="local" code="BUN" displayName="BUN" /> <statusCode code="completed" /> < effectiveTime value="" /> <value unit="mg/dL" xsi:type="PQ " value="6" /> <referenceRange> <observationRange> <text>4-20</text> </observationRange> </referenceRange > </observation> </component> <component> <observation moodCode="EVN" classCode="OBS"> <templateId root= "07.12.840.1.686498.03.15.22.4.2" /> <id nullFlavor="NA" /> < code codeSystem="local" code="CA" displayName="Calcium" /> <statusCode code="completed" /> <effectiveTime value="[id number]" /> < value unit="mg/dL" xsi:type="PQ" value="9.1" /> <referenceRange> <observationRange> <text>8.6-10.0</text> </ observationRange> </referenceRange> </observation> </ component> <component> <observation moodCode="EVN" classCode="OBS"> <templateId root="07.12.840.1.973446.03.15.22.4.2" /> <id nullFlavor="NA" /> <code codeSystem="local" code="CL" displayName= "Chloride" /> <statusCode code="completed" /> <effectiveTime value="" /> <value unit="mEq/L" xsi:type="PQ" value="104" / > <referenceRange> <observationRange> <text>99- 109</text> </observationRange> </referenceRange> </ observation> </component> <component> <observation moodCode= "EVN" classCode="OBS"> <templateId root="216.840.1.481625.10...4.2 " /> <id nullFlavor="NA" /> <code codeSystem="local" code="CO2 " displayName="CO2" /> <statusCode code="completed" /> < effectiveTime value="" /> <value unit="mEq/L" xsi:type="PQ " value="27" /> <referenceRange> <observationRange> <text>22-32</text> </observationRange> </ referenceRange> </observation> </component> <component> <observation moodCode="EVN" classCode="OBS"> <templateId root= "16.840.1.194046.10..4.2" /> <id nullFlavor="NA" /> < code codeSystem="local" code="CREAT" displayName="Creatinine" /> < statusCode code="completed" /> <effectiveTime value="" /> <value unit="mg/dL" xsi:type="PQ" value="0.73" /> < referenceRange> <observationRange> <text>0.44-1.03</text > </observationRange> </referenceRange> </observation > </component> <component> <observation moodCode="EVN" classCode="OBS"> <templateId root="216.840.1.798256.10..22.4.2" /> <id nullFlavor="NA" /> <code codeSystem="local" code="GLOB" displayName="Globulin" /> <statusCode code="completed" /> < effectiveTime value="" /> <value unit="g/dL" xsi:type="PQ" value="2.9" /> <referenceRange> <observationRange> <text>1.9-4.3</text> </observationRange> </ referenceRange> </observation> </component> <component> <observation moodCode="EVN" classCode="OBS"> <templateId root= "16.840.1.063115.10.20.22.4.2" /> <id nullFlavor="NA" /> < code codeSystem="local" code="GLU" displayName="Glucose" /> < statusCode code="completed" /> <effectiveTime value="" /> <value unit="mg/dL" xsi:type="PQ" value="93" /> < referenceRange> <observationRange> <text>70-100</text> </observationRange> </referenceRange> </observation> </component> <component> <observation moodCode="EVN" classCode ="OBS"> <templateId root="16.840.1.006120.10.20.22.4.2" /> < id nullFlavor="NA" /> <code codeSystem="local" code="K" displayName= "Potassium" /> <statusCode code="completed" /> <effectiveTime value="[id number]" /> <value unit="mEq/L" xsi:type="PQ" value="3.4" / > <interpretationCode codeSystem="local" code="*" /> < referenceRange> <observationRange> <text>3.6-5.1</text> </observationRange> </referenceRange> </observation > </component> <component> <observation moodCode="EVN" classCode="OBS"> <templateId root="840.1.475476.10.22.4.2" /> <id nullFlavor="NA" /> <code codeSystem="local" code="TP" displayName="Protein" /> <statusCode code="completed" /> < effectiveTime value="288361660559" /> <value unit="g/dL" xsi:type="PQ" value="6.8" /> <referenceRange> <observationRange> <text>6.1-7.9</text> </observationRange> </ referenceRange> </observation> </component> <component> <observation moodCode="EVN" classCode="OBS"> <templateId root= "840.1.660764.03.15.22.4.2" /> <id nullFlavor="NA" /> < code codeSystem="local" code="NA" displayName="Sodium" /> <statusCode code="completed" /> <effectiveTime value="846691593129" /> < value unit="mEq/L" xsi:type="PQ" value="137" /> <referenceRange> <observationRange> <text>136-144</text> </ observationRange> </referenceRange> </observation> </ component> </organizer> </entry> <entry> <organizer moodCode="EVN" classCode="BATTERY"> <templateId root="840.1.081503.22.4.1" /> <id nullFlavor="NA" /> <code codeSystem="local" code="GFR" displayName ="eGFR" /> <statusCode code="completed" /> <component> < observation moodCode="EVN" classCode="OBS"> <templateId root= "840.1.653477.1022.4.2" /> <id nullFlavor="NA" /> < code codeSystem="local" code="GFR" displayName="eGFR" /> <statusCode code="completed" /> <effectiveTime value="198357578536" /> < value unit="NA" xsi:type="PQ" value=">60" /> <referenceRange> <observationRange> <text>>60</text> </ observationRange> </referenceRange> </observation> </ component> </organizer> </entry> <entry> <organizer moodCode="EVN" classCode="BATTERY"> <templateId root="216.840.1.986307.10..22.4.1" /> <id nullFlavor="NA" /> <code codeSystem="local" code="PREGN" displayName=" Screen, Urine NPT" /> <statusCode code="completed" / > <component> <observation moodCode="EVN" classCode="OBS"> <templateId root="216.840.1.218997.10..22.4.2" /> <id nullFlavor="NA " /> <code codeSystem="local" code="PREGN" displayName=" Screen, Urine NPT" /> <statusCode code="completed" /> < effectiveTime value="568861147191" /> <value unit="NA" xsi:type="PQ" value="Negative" /> <referenceRange> <observationRange> <text /> </observationRange> </referenceRange> </observation> </component> </organizer> </entry> <entry> < organizer moodCode="EVN" classCode="BATTERY"> <templateId root= "216.840.1.199187.10..22.4.1" /> <id nullFlavor="NA" /> <code codeSystem="local" code="UA" displayName="URINALYSIS, ROUTINE" /> < statusCode code="completed" /> <component> <observation moodCode= "EVN" classCode="OBS"> <templateId root="216.840.1.537962.10.4.2 " /> <id nullFlavor="NA" /> <code codeSystem="local" code= "LEUESU" displayName="UA LEUKOCYTE ESTERASE DIPSTICK" /> <statusCode code="completed" /> <effectiveTime value="" /> < value unit="" xsi:type="PQ" value="NEGATIVE" /> <referenceRange> <observationRange> <text>NEGATIVE</text> </ observationRange> </referenceRange> </observation> </ component> <component> <observation moodCode="EVN" classCode="OBS"> <templateId root="216.840.1.274671.03.15.22.4.2" /> <id nullFlavor="NA" /> <code codeSystem="local" code="NITRIU" displayName= "UA NITRITE DIPSTICK" /> <statusCode code="completed" /> < effectiveTime value="" /> <value unit="" xsi:type="PQ" value="NEGATIVE" /> <referenceRange> <observationRange> <text>NEGATIVE</text> </observationRange> </ referenceRange> </observation> </component> <component> <observation moodCode="EVN" classCode="OBS"> <templateId root= "16.840.1.632250.03.15.22.4.2" /> <id nullFlavor="NA" /> < code codeSystem="local" code="PROTEIU" displayName="UA PROTEIN DIPSTICK" /> <statusCode code="completed" /> <effectiveTime value= "" /> <value unit="" xsi:type="PQ" value="NEGATIVE" /> <referenceRange> <observationRange> <text>NEGATIVE </text> </observationRange> </referenceRange> </ observation> </component> <component> <observation moodCode= "EVN" classCode="OBS"> <templateId root="07.12.840.1.178804.10.4.2 " /> <id nullFlavor="NA" /> <code codeSystem="local" code= "DGLUU" displayName="UA GLUCOSE DIPSTICK" /> <statusCode code= "completed" /> <effectiveTime value="282651745165" /> <value unit="" xsi:type="PQ" value="NEGATIVE" /> <referenceRange> < observationRange> <text>NEGATIVE</text> </ observationRange> </referenceRange> </observation> </ component> <component> <observation moodCode="EVN" classCode="OBS"> <templateId root="840.1.190338.03.15.22.4.2" /> <id nullFlavor="NA" /> <code codeSystem="local" code="KETONU" displayName= "UA KETONE DIPSTICK" /> <statusCode code="completed" /> < effectiveTime value="843625288333" /> <value unit="" xsi:type="PQ" value="1+" /> <interpretationCode codeSystem="local" code="*" /> <referenceRange> <observationRange> <text>NEGATIVE</ text> </observationRange> </referenceRange> </ observation> </component> <component> <observation moodCode= "EVN" classCode="OBS"> <templateId root="07.12.840.1.344261.03.15.22.4.2 " /> <id nullFlavor="NA" /> <code codeSystem="local" code= "UROBILU" displayName="UA UROBILINOGEN DIPSTICK" /> <statusCode code= "completed" /> <effectiveTime value="838792927069" /> <value unit="" xsi:type="PQ" value="2+" /> <interpretationCode codeSystem= "local" code="*" /> <referenceRange> <observationRange> <text>NORMAL</text> </observationRange> </ referenceRange> </observation> </component> <component> <observation moodCode="EVN" classCode="OBS"> <templateId root= "216.840.1.374310.10..22.4.2" /> <id nullFlavor="NA" /> < code codeSystem="local" code="BILU" displayName="UA BILIRUBIN DIPSTICK" /> <statusCode code="completed" /> <effectiveTime value="556654520845 " /> <value unit="" xsi:type="PQ" value="1+" /> < interpretationCode codeSystem="local" code="*" /> <referenceRange> <observationRange> <text>NEGATIVE</text> </ observationRange> </referenceRange> </observation> </ component> <component> <observation moodCode="EVN" classCode="OBS"> <templateId root="16.840.1.806092.10..22.4.2" /> <id nullFlavor="NA" /> <code codeSystem="local" code="LON" displayName="UA BLOOD DIPSTICK" /> <statusCode code="completed" /> < effectiveTime value="444365810811" /> <value unit="" xsi:type="PQ" value="TRACE" /> <interpretationCode codeSystem="local" code="*" /> <referenceRange> <observationRange> <text> NEGATIVE</text> </observationRange> </referenceRange> </observation> </component> <component> <observation moodCode ="EVN" classCode="OBS"> <templateId root= "07.12.840.1.165827.1022.4.2" /> <id nullFlavor="NA" /> < code codeSystem="local" code="SPGRU" displayName="UA SPECIFIC GRAVITY" /> <statusCode code="completed" /> <effectiveTime value="207603450223 " /> <value unit="" xsi:type="PQ" value="1.020" /> < referenceRange> <observationRange> <text>1.015-1.025</ text> </observationRange> </referenceRange> </ observation> </component> <component> <observation moodCode= "EVN" classCode="OBS"> <templateId root="840.1.669796.03.15.22.4.2 " /> <id nullFlavor="NA" /> <code codeSystem="local" code="WILLOW " displayName="UR PH" /> <statusCode code="completed" /> < effectiveTime value="826509022628" /> <value unit="" xsi:type="PQ" value="6.5" /> <referenceRange> <observationRange> <text>5.0-7.0</text> </observationRange> </ referenceRange> </observation> </component> </organizer> </entry > <entry> <organizer moodCode="EVN" classCode="BATTERY"> <templateId root="07.12.840.1.409203.10.22.4.1" /> <id nullFlavor="NA" /> <code codeSystem="local" code="UAMICRO" displayName="UA MICROSCOPIC" /> < statusCode code="completed" /> <component> <observation moodCode= "EVN" classCode="OBS"> <templateId root="840.1.481591.10.20.22.4.2 " /> <id nullFlavor="NA" /> <code codeSystem="local" code= "BACU" displayName="UA BACTERIA" /> <statusCode code="completed" /> <effectiveTime value="" /> <value unit="" xsi:type= "PQ" value="2+" /> <interpretationCode codeSystem="local" code="*" /> <referenceRange> <observationRange> <text> NEGATIVE</text> </observationRange> </referenceRange> </observation> </component> <component> <observation moodCode ="EVN" classCode="OBS"> <templateId root= "216.840.1.404151.03.15.224.2" /> <id nullFlavor="NA" /> < code codeSystem="local" code="EPIU" displayName="UA EPITHELIAL CELLS" /> <statusCode code="completed" /> <effectiveTime value="" /> <value unit="epi/hpf" xsi:type="PQ" value="2+" /> < interpretationCode codeSystem="local" code="*" /> <referenceRange> <observationRange> <text>0 - 1+</text> </ observationRange> </referenceRange> </observation> </ component> <component> <observation moodCode="EVN" classCode="OBS"> <templateId root="16.840.1.116477.03.15.224.2" /> <id nullFlavor="NA" /> <code codeSystem="local" code="RBCU" displayName=" UA RBC" /> <statusCode code="completed" /> <effectiveTime value="" /> <value unit="rbc/hpf" xsi:type="PQ" value="3-5 " /> <interpretationCode codeSystem="local" code="*" /> < referenceRange> <observationRange> <text>0 - 3</text> </observationRange> </referenceRange> </observation> </component> <component> <observation moodCode="EVN" classCode= "OBS"> <templateId root="216.840.1.361507.10..22.4.2" /> < id nullFlavor="NA" /> <code codeSystem="local" code="UAVOL" displayName ="UA VOLUME FOR EXAM" /> <statusCode code="completed" /> < effectiveTime value="674269661616" /> <value unit="mL" xsi:type="PQ" value="1.0" /> <referenceRange> <observationRange> <text>(12mL STD)</text> </observationRange> </ referenceRange> </observation> </component> <component> <observation moodCode="EVN" classCode="OBS"> <templateId root= "16.840.1.768819.10..4.2" /> <id nullFlavor="NA" /> < code codeSystem="local" code="WBCU" displayName="UA WBC" /> < statusCode code="completed" /> <effectiveTime value="516644917340" /> <value unit="wbc/hpf" xsi:type="PQ" value="0-1" /> < referenceRange> <observationRange> <text>0 - 5</text> </observationRange> </referenceRange> </observation> </component> </organizer> </entry> <entry> <organizer moodCode="EVN " classCode="BATTERY"> <templateId root="2.16.840.1.399045.10...4.1" / > <id nullFlavor="NA" /> <code codeSystem="local" code="PREGU" displayName="UR TEST" /> <statusCode code="completed" /> < component> <observation moodCode="EVN" classCode="OBS"> < templateId root="16.840.1.595228.10..4.2" /> <id nullFlavor="NA " /> <code codeSystem="local" code="PREGU" displayName="UR TEST" /> <statusCode code="completed" /> <effectiveTime value= "899688542106" /> <value unit="" xsi:type="PQ" value="NEGATIVE" /> <referenceRange> <observationRange> <text>NEGATIVE </text> </observationRange> </referenceRange> </ observation> </component> </organizer> </entry> <entry> <organizer moodCode="EVN" classCode="BATTERY"> <templateId root= "216.840.1.673797.10..4.1" /> <id nullFlavor="NA" /> <code codeSystem="local" code="CBCD" displayName="CBC W/DIFF" /> <statusCode code ="completed" /> <component> <observation moodCode="EVN" classCode= "OBS"> <templateId root="216.840.1.977924.10..22.4.2" /> < id nullFlavor="NA" /> <code codeSystem="local" code="BA#" displayName= "BASOPHIL #" /> <statusCode code="completed" /> < effectiveTime value="257018113881" /> <value unit="k/cumm" xsi:type="PQ " value="0.1" /> <referenceRange> <observationRange> <text>0.0-0.2</text> </observationRange> </ referenceRange> </observation> </component> <component> <observation moodCode="EVN" classCode="OBS"> <templateId root= "216.840.1.995094.03.15.22.4.2" /> <id nullFlavor="NA" /> < code codeSystem="local" code="BA%" displayName="BASOPHIL %" /> <statusCode code="completed" /> <effectiveTime value="" /> <value unit="%" xsi:type="PQ" value="1" /> < referenceRange> <observationRange> <text>0-1</text> </observationRange> </referenceRange> </observation> </component> <component> <observation moodCode="EVN" classCode= "OBS"> <templateId root="216.840.1.375863.03.15.22.4.2" /> < id nullFlavor="NA" /> <code codeSystem="local" code="EO#" displayName= "EOSINOPHIL #" /> <statusCode code="completed" /> < effectiveTime value="" /> <value unit="k/cumm" xsi:type="PQ " value="0.2" /> <referenceRange> <observationRange> <text>0.1-0.5</text> </observationRange> </ referenceRange> </observation> </component> <component> <observation moodCode="EVN" classCode="OBS"> <templateId root= "16.840.1.865980.03.15.22.4.2" /> <id nullFlavor="NA" /> < code codeSystem="local" code="EO%" displayName="EOSINOPHIL %" /> <statusCode code="completed" /> <effectiveTime value="" /> <value unit="%" xsi:type="PQ" value="3" /> < referenceRange> <observationRange> <text>2-4</text> </observationRange> </referenceRange> </observation> </component> <component> <observation moodCode="EVN" classCode= "OBS"> <templateId root="16.840.1.802806.1022.4.2" /> < id nullFlavor="NA" /> <code codeSystem="local" code="GR#" displayName= "GRANULOCYTE #" /> <statusCode code="completed" /> < effectiveTime value="" /> <value unit="k/cumm" xsi:type="PQ " value="3.8" /> <referenceRange> <observationRange> <text>2.0-9.0</text> </observationRange> </ referenceRange> </observation> </component> <component> <observation moodCode="EVN" classCode="OBS"> <templateId root= "07.12.840.1.994929.03.15.22.4.2" /> <id nullFlavor="NA" /> < code codeSystem="local" code="GR%" displayName="GRANULOCYTE %" /> <statusCode code="completed" /> <effectiveTime value=" " /> <value unit="%" xsi:type="PQ" value="52" /> < referenceRange> <observationRange> <text>50-75</text> </observationRange> </referenceRange> </observation> </component> <component> <observation moodCode="EVN" classCode= "OBS"> <templateId root="16.840.1.894732.1022.4.2" /> < id nullFlavor="NA" /> <code codeSystem="local" code="LY#" displayName= "LYMPHOCYTE #" /> <statusCode code="completed" /> < effectiveTime value="" /> <value unit="k/cumm" xsi:type="PQ " value="2.5" /> <referenceRange> <observationRange> <text>1.0-4.0</text> </observationRange> </ referenceRange> </observation> </component> <component> <observation moodCode="EVN" classCode="OBS"> <templateId root= "07.12.840.1.581684.03.15.22.4.2" /> <id nullFlavor="NA" /> < code codeSystem="local" code="LY%" displayName="LYMPHOCYTE %" /> <statusCode code="completed" /> <effectiveTime value="" /> <value unit="%" xsi:type="PQ" value="35" /> < interpretationCode codeSystem="local" code="*" /> <referenceRange> <observationRange> <text>20-30</text> </ observationRange> </referenceRange> </observation> </ component> <component> <observation moodCode="EVN" classCode="OBS"> <templateId root="07.12.840.1.319254.03.15.22.4.2" /> <id nullFlavor="NA" /> <code codeSystem="local" code="MCH" displayName= "MEAN CELL HGB" /> <statusCode code="completed" /> < effectiveTime value="" /> <value unit="pg" xsi:type="PQ" value="25.1" /> <interpretationCode codeSystem="local" code="*" /> <referenceRange> <observationRange> <text>27.0- 33.0</text> </observationRange> </referenceRange> </ observation> </component> <component> <observation moodCode= "EVN" classCode="OBS"> <templateId root="07.12.840.1.336583.03.15.22.4.2 " /> <id nullFlavor="NA" /> <code codeSystem="local" code= "MCHC" displayName="MEAN CELL HGB CONCENTRATION" /> <statusCode code= "completed" /> <effectiveTime value="" /> <value unit="g/dL" xsi:type="PQ" value="31.5" /> <interpretationCode codeSystem="local" code="*" /> <referenceRange> < observationRange> <text>32.0-37.0</text> </ observationRange> </referenceRange> </observation> </ component> <component> <observation moodCode="EVN" classCode="OBS"> <templateId root="16.840.1.504164.03.15.22.4.2" /> <id nullFlavor="NA" /> <code codeSystem="local" code="MCV" displayName= "MEAN CELL VOLUME" /> <statusCode code="completed" /> < effectiveTime value="" /> <value unit="fl" xsi:type="PQ" value="79.9" /> <interpretationCode codeSystem="local" code="*" /> <referenceRange> <observationRange> <text>80.0- 100.0</text> </observationRange> </referenceRange> </ observation> </component> <component> <observation moodCode= "EVN" classCode="OBS"> <templateId root="07.12.840.1.199744.10.22.4.2 " /> <id nullFlavor="NA" /> <code codeSystem="local" code="MO# " displayName="MONOCYTE #" /> <statusCode code="completed" /> <effectiveTime value="" /> <value unit="k/cumm" xsi:type= "PQ" value="0.8" /> <referenceRange> <observationRange> <text>0.1-1.0</text> </observationRange> </ referenceRange> </observation> </component> <component> <observation moodCode="EVN" classCode="OBS"> <templateId root= "216.840.1.259362.10.20.22.4.2" /> <id nullFlavor="NA" /> < code codeSystem="local" code="MO%" displayName="MONOCYTE %" /> <statusCode code="completed" /> <effectiveTime value="462138348026" /> <value unit="%" xsi:type="PQ" value="10" /> < interpretationCode codeSystem="local" code="*" /> <referenceRange> <observationRange> <text>4-6</text> </ observationRange> </referenceRange> </observation> </ component> <component> <observation moodCode="EVN" classCode="OBS"> <templateId root="07.12.840.1.614343.10.22.4.2" /> <id nullFlavor="NA" /> <code codeSystem="local" code="RBC" displayName=" RED BLOOD CELL" /> <statusCode code="completed" /> < effectiveTime value="181372757385" /> <value unit="m/cumm" xsi:type="PQ " value="4.02" /> <referenceRange> <observationRange> <text>4.00-6.00</text> </observationRange> </ referenceRange> </observation> </component> <component> <observation moodCode="EVN" classCode="OBS"> <templateId root= "16.840.1.765101.10.20.22.4.2" /> <id nullFlavor="NA" /> < code codeSystem="local" code="RDW" displayName="RED CELL DISTRIBUTION WIDTH" /> <statusCode code="completed" /> <effectiveTime value= "" /> <value unit="%" xsi:type="PQ" value="16.4" /> <interpretationCode codeSystem="local" code="*" /> < referenceRange> <observationRange> <text>11.0-15.6</text > </observationRange> </referenceRange> </observation > </component> <component> <observation moodCode="EVN" classCode="OBS"> <templateId root="2.16.840.1.290723....4.2" /> <id nullFlavor="NA" /> <code codeSystem="local" code="WBC" displayName="WHITE BLOOD CELL" /> <statusCode code="completed" /> <effectiveTime value="" /> <value unit="k/cumm" xsi: type="PQ" value="7.3" /> <referenceRange> <observationRange > <text>5.0-10.0</text> </observationRange> </ referenceRange> </observation> </component> <component> <observation moodCode="EVN" classCode="OBS"> <templateId root= "2.16.840.1.337103....4.2" /> <id nullFlavor="NA" /> < code codeSystem="local" code="HGBT" displayName="HEMOGLOBIN" /> < statusCode code="completed" /> <effectiveTime value="" /> <value unit="gm/dL" xsi:type="PQ" value="10.1" /> < interpretationCode codeSystem="local" code="*" /> <referenceRange> <observationRange> <text>12.0-16.0</text> </ observationRange> </referenceRange> </observation> </ component> <component> <observation moodCode="EVN" classCode="OBS"> <templateId root="2.16.840.1.107330.10...4.2" /> <id nullFlavor="NA" /> <code codeSystem="local" code="HCTT" displayName= "HEMATOCRIT" /> <statusCode code="completed" /> < effectiveTime value="" /> <value unit="%" xsi:type="PQ " value="32.1" /> <interpretationCode codeSystem="local" code="*" /> <referenceRange> <observationRange> <text>37.0- 47.0</text> </observationRange> </referenceRange> </ observation> </component> <component> <observation moodCode= "EVN" classCode="OBS"> <templateId root="216.840.1.472947.03.15.22.4.2 " /> <id nullFlavor="NA" /> <code codeSystem="local" code="PLT " displayName="PLATELET COUNT" /> <statusCode code="completed" /> <effectiveTime value="750697761556" /> <value unit="k/cumm" xsi: type="PQ" value="299" /> <referenceRange> <observationRange > <text>150-400</text> </observationRange> </ referenceRange> </observation> </component> </organizer> </entry > <entry> <organizer moodCode="EVN" classCode="BATTERY"> <templateId root="2.16.840.1.776097.10...4.1" /> <id nullFlavor="NA" /> <code codeSystem="local" code="LIVER" displayName="HEPATIC FUNCTION PANEL" /> < statusCode code="completed" /> <component> <observation moodCode= "EVN" classCode="OBS"> <templateId root="16.840.1.415760.10.20.22.4.2 " /> <id nullFlavor="NA" /> <code codeSystem="local" code= "BILUC" displayName="BILI UNCONJUGATED" /> <statusCode code="completed " /> <effectiveTime value="" /> <value unit="mg/dL " xsi:type="PQ" value="0.2" /> <referenceRange> < observationRange> <text>0.0-0.7</text> </ observationRange> </referenceRange> </observation> </ component> <component> <observation moodCode="EVN" classCode="OBS"> <templateId root="07.12.840.1.176217.10.22.4.2" /> <id nullFlavor="NA" /> <code codeSystem="local" code="AST" displayName="AST /SGOT" /> <statusCode code="completed" /> <effectiveTime value ="" /> <value unit="Units/L" xsi:type="PQ" value="16" /> <referenceRange> <observationRange> <text>10-37< /text> </observationRange> </referenceRange> </ observation> </component> <component> <observation moodCode= "EVN" classCode="OBS"> <templateId root="16.840.1.885256.10.2022.4.2 " /> <id nullFlavor="NA" /> <code codeSystem="local" code="ALT " displayName="ALT/SGPT" /> <statusCode code="completed" /> < effectiveTime value="" /> <value unit="Units/L" xsi:type= "PQ" value="20" /> <referenceRange> <observationRange> <text>< 66</text> </observationRange> </ referenceRange> </observation> </component> <component> <observation moodCode="EVN" classCode="OBS"> <templateId root= "16.840.1.695637.10.22.4.2" /> <id nullFlavor="NA" /> < code codeSystem="local" code="TP" displayName="TOTAL PROTEIN" /> < statusCode code="completed" /> <effectiveTime value="723609993562" /> <value unit="gm/dL" xsi:type="PQ" value="7.3" /> < referenceRange> <observationRange> <text>6.4-8.2</text> </observationRange> </referenceRange> </observation > </component> <component> <observation moodCode="EVN" classCode="OBS"> <templateId root="07.12.840.1.811365.03.15.22.4.2" /> <id nullFlavor="NA" /> <code codeSystem="local" code="ALB" displayName="ALBUMIN" /> <statusCode code="completed" /> < effectiveTime value="544451252508" /> <value unit="gm/dL" xsi:type="PQ " value="3.9" /> <referenceRange> <observationRange> <text>3.4-5.0</text> </observationRange> </ referenceRange> </observation> </component> <component> <observation moodCode="EVN" classCode="OBS"> <templateId root= "07.12.840.1.576452.10.22.4.2" /> <id nullFlavor="NA" /> < code codeSystem="local" code="BILTOT" displayName="BILI TOTAL" /> < statusCode code="completed" /> <effectiveTime value="" /> <value unit="mg/dL" xsi:type="PQ" value="0.3" /> < referenceRange> <observationRange> <text>0.0-1.0</text> </observationRange> </referenceRange> </observation > </component> <component> <observation moodCode="EVN" classCode="OBS"> <templateId root="216.840.1.218654.10..22.4.2" /> <id nullFlavor="NA" /> <code codeSystem="local" code="ALKP" displayName="ALKALINE PHOSPHATASE TOTAL" /> <statusCode code="completed " /> <effectiveTime value="587178222331" /> <value unit="IU/L " xsi:type="PQ" value="88" /> <referenceRange> < observationRange> <text>45-117</text> </observationRange > </referenceRange> </observation> </component> < component> <observation moodCode="EVN" classCode="OBS"> < templateId root="216.840.1.757375.10...4.2" /> <id nullFlavor="NA " /> <code codeSystem="local" code="BILC" displayName="BILI CONJUGATED " /> <statusCode code="completed" /> <effectiveTime value= "445147381631" /> <value unit="mg/dL" xsi:type="PQ" value="0.1" /> <referenceRange> <observationRange> <text>0.0-0.3< /text> </observationRange> </referenceRange> </ observation> </component> </organizer> </entry> <entry> <organizer moodCode="EVN" classCode="BATTERY"> <templateId root= "2.16.840.1.672563.10..22.4.1" /> <id nullFlavor="NA" /> <code codeSystem="local" code="LIP" displayName="LIPASE" /> <statusCode code= "completed" /> <component> <observation moodCode="EVN" classCode= "OBS"> <templateId root="16.840.1.617581.10.4.2" /> < id nullFlavor="NA" /> <code codeSystem="local" code="LIP" displayName= "LIPASE" /> <statusCode code="completed" /> <effectiveTime value="102718652624" /> <value unit="Units/L" xsi:type="PQ" value="152 " /> <referenceRange> <observationRange> <text> 73-393</text> </observationRange> </referenceRange> < /observation> </component> </organizer> </entry> <entry> < organizer moodCode="EVN" classCode="BATTERY"> <templateId root= "16.840.1.079521.10..4.1" /> <id nullFlavor="NA" /> <code codeSystem="local" code="iCHEM8" displayName="CHEM/HEM PROFILE-BEDSIDE" /> <statusCode code="completed" /> <component> <observation moodCode= "EVN" classCode="OBS"> <templateId root="16.840.1.035186.10..4.2 " /> <id nullFlavor="NA" /> <code codeSystem="local" code="K" displayName="POTASSIUM" /> <statusCode code="completed" /> < effectiveTime value="415491526019" /> <value unit="mmol/L" xsi:type="PQ " value="3.2" /> <interpretationCode codeSystem="local" code="*" /> <referenceRange> <observationRange> <text>3.5-5.3 </text> </observationRange> </referenceRange> </ observation> </component> <component> <observation moodCode= "EVN" classCode="OBS"> <templateId root="16.840.1.107336.03.15.22.4.2 " /> <id nullFlavor="NA" /> <code codeSystem="local" code= "CMETHOD" displayName="METHOD" /> <statusCode code="completed" /> <effectiveTime value="" /> <value unit="" xsi:type="PQ " value="Bedside" /> <referenceRange> <observationRange> <text /> </observationRange> </referenceRange> </observation> </component> <component> <observation moodCode="EVN" classCode="OBS"> <templateId root= "07.12.840.1.670655.03.15.22.4.2" /> <id nullFlavor="NA" /> < code codeSystem="local" code="GAP" displayName="ANION GAP" /> < statusCode code="completed" /> <effectiveTime value="" /> <value unit="mmol/L" xsi:type="PQ" value="19" /> < referenceRange> <observationRange> <text>10-20</text> </observationRange> </referenceRange> </observation> </component> <component> <observation moodCode="EVN" classCode= "OBS"> <templateId root="07.12.840.1.890654.03.15.22.4.2" /> < id nullFlavor="NA" /> <code codeSystem="local" code="HMETHOD" displayName="METHOD" /> <statusCode code="completed" /> < effectiveTime value="" /> <value unit="" xsi:type="PQ" value="Bedside" /> <referenceRange> <observationRange> <text /> </observationRange> </referenceRange> </observation> </component> <component> <observation moodCode="EVN" classCode="OBS"> <templateId root= "07.12.840.1.114915.1022.4.2" /> <id nullFlavor="NA" /> < code codeSystem="local" code="GLU" displayName="GLUCOSE" /> < statusCode code="completed" /> <effectiveTime value="360362001476" /> <value unit="mg/dL" xsi:type="PQ" value="91" /> < referenceRange> <observationRange> <text>70-99</text> </observationRange> </referenceRange> </observation> </component> <component> <observation moodCode="EVN" classCode= "OBS"> <templateId root="07.12.840.1.315262.03.15.22.4.2" /> < id nullFlavor="NA" /> <code codeSystem="local" code="BUN" displayName= "BLOOD UREA NITROGEN" /> <statusCode code="completed" /> < effectiveTime value="828912114613" /> <value unit="mg/dL" xsi:type="PQ " value="6" /> <interpretationCode codeSystem="local" code="*" /> <referenceRange> <observationRange> <text>7-20</ text> </observationRange> </referenceRange> </ observation> </component> <component> <observation moodCode= "EVN" classCode="OBS"> <templateId root="07.12.840.1.118215.03.15.22.4.2 " /> <id nullFlavor="NA" /> <code codeSystem="local" code= "CREAT" displayName="CREATININE" /> <statusCode code="completed" /> <effectiveTime value="255181786315" /> <value unit="mg/dL" xsi: type="PQ" value="0.6" /> <referenceRange> <observationRange > <text>0.6-1.0</text> </observationRange> </ referenceRange> </observation> </component> <component> <observation moodCode="EVN" classCode="OBS"> <templateId root= "2.16.840.1.684842.10.22.4.2" /> <id nullFlavor="NA" /> < code codeSystem="local" code="HGBT" displayName="HEMOGLOBIN" /> < statusCode code="completed" /> <effectiveTime value="181703859130" /> <value unit="gm/dL" xsi:type="PQ" value="10.5" /> < interpretationCode codeSystem="local" code="*" /> <referenceRange> <observationRange> <text>12.0-16.0</text> </ observationRange> </referenceRange> </observation> </ component> <component> <observation moodCode="EVN" classCode="OBS"> <templateId root="2.16.840.1.809485.10.20..4.2" /> <id nullFlavor="NA" /> <code codeSystem="local" code="HCTT" displayName= "HEMATOCRIT" /> <statusCode code="completed" /> < effectiveTime value="049733422445" /> <value unit="%" xsi:type="PQ " value="31.0" /> <interpretationCode codeSystem="local" code="*" /> <referenceRange> <observationRange> <text>37.0- 47.0</text> </observationRange> </referenceRange> </ observation> </component> <component> <observation moodCode= "EVN" classCode="OBS"> <templateId root="216.840.1.463371.10..22.4.2 " /> <id nullFlavor="NA" /> <code codeSystem="local" code="NA " displayName="SODIUM" /> <statusCode code="completed" /> < effectiveTime value="514021935371" /> <value unit="mmol/L" xsi:type="PQ " value="139" /> <referenceRange> <observationRange> <text>135-148</text> </observationRange> </ referenceRange> </observation> </component> <component> <observation moodCode="EVN" classCode="OBS"> <templateId root= "216.840.1.381350.10...4.2" /> <id nullFlavor="NA" /> < code codeSystem="local" code="CL" displayName="CHLORIDE" /> < statusCode code="completed" /> <effectiveTime value="531053504482" /> <value unit="mmol/L" xsi:type="PQ" value="105" /> < referenceRange> <observationRange> <text>98-110</text> </observationRange> </referenceRange> </observation> </component> <component> <observation moodCode="EVN" classCode ="OBS"> <templateId root="216.840.1.495984.10..22.4.2" /> < id nullFlavor="NA" /> <code codeSystem="local" code="CO2" displayName= "CARBON DIOXIDE" /> <statusCode code="completed" /> < effectiveTime value="501618149514" /> <value unit="mmol/L" xsi:type="PQ " value="20" /> <interpretationCode codeSystem="local" code="*" /> <referenceRange> <observationRange> <text>21-32</ text> </observationRange> </referenceRange> </ observation> </component> <component> <observation moodCode= "EVN" classCode="OBS"> <templateId root="2.16.840.1.814257.10..22.4.2 " /> <id nullFlavor="NA" /> <code codeSystem="local" code= "CAION" displayName="CALCIUM IONIZED" /> <statusCode code="completed" / > <effectiveTime value="328545964514" /> <value unit="mg/dL" xsi:type="PQ" value="4.5" /> <referenceRange> < observationRange> <text>4.5-5.3</text> </ observationRange> </referenceRange> </observation> </ component> </organizer> </entry> <entry> <organizer moodCode="EVN" classCode="BATTERY"> <templateId root="2.16.840.1.599826.10.20.22.4.1" /> <id nullFlavor="NA" /> <code codeSystem="local" code="PREGN" displayName=" Screen, Urine NPT" /> <statusCode code="completed" / > <component> <observation moodCode="EVN" classCode="OBS"> <templateId root="2.16.840.1.481701.10.20.22.4.2" /> <id nullFlavor="NA " /> <code codeSystem="local" code="PREGN" displayName=" Screen, Urine NPT" /> <statusCode code="completed" /> < effectiveTime value="474906288691" /> <value unit="NA" xsi:type="PQ" value="Negative" /> <referenceRange> <observationRange> <text /> </observationRange> </referenceRange> </observation> </component> </organizer> </entry> <entry> < organizer moodCode="EVN" classCode="BATTERY"> <templateId root= "216.840.1.512123.10...4.1" /> <id nullFlavor="NA" /> <code codeSystem="local" code="PREGU" displayName="UR TEST" /> < statusCode code="completed" /> <component> <observation moodCode= "EVN" classCode="OBS"> <templateId root="07.12.840.1.294229.03.15.22.4.2 " /> <id nullFlavor="NA" /> <code codeSystem="local" code= "PREGU" displayName="UR TEST" /> <statusCode code="completed " /> <effectiveTime value="907648344682" /> <value unit="" xsi :type="PQ" value="NEGATIVE" /> <referenceRange> < observationRange> <text>NEGATIVE</text> </ observationRange> </referenceRange> </observation> </ component> </organizer> </entry> <entry> <organizer moodCode="EVN" classCode="BATTERY"> <templateId root="07.12.840.1.940609.03.15.22.4.1" /> <id nullFlavor="NA" /> <code codeSystem="local" code="UA" displayName= "URINALYSIS, ROUTINE" /> <statusCode code="completed" /> <component> <observation moodCode="EVN" classCode="OBS"> <templateId root= "16.840.1.887877.10..4.2" /> <id nullFlavor="NA" /> < code codeSystem="local" code="LEUESU" displayName="UA LEUKOCYTE ESTERASE DIPSTICK" /> <statusCode code="completed" /> <effectiveTime value="564301237408" /> <value unit="" xsi:type="PQ" value="2+" /> <interpretationCode codeSystem="local" code="*" /> < referenceRange> <observationRange> <text>NEGATIVE</text > </observationRange> </referenceRange> </observation > </component> <component> <observation moodCode="EVN" classCode="OBS"> <templateId root="07.12.840.1.029468.03.15.22.4.2" /> <id nullFlavor="NA" /> <code codeSystem="local" code="NITRIU" displayName="UA NITRITE DIPSTICK" /> <statusCode code="completed" /> <effectiveTime value="523807812574" /> <value unit="" xsi:type= "PQ" value="POSITIVE" /> <interpretationCode codeSystem="local" code="* " /> <referenceRange> <observationRange> <text> NEGATIVE</text> </observationRange> </referenceRange> </observation> </component> <component> <observation moodCode ="EVN" classCode="OBS"> <templateId root= "07.12.840.1.600995.03.15.22.4.2" /> <id nullFlavor="NA" /> < code codeSystem="local" code="PROTEIU" displayName="UA PROTEIN DIPSTICK" /> <statusCode code="completed" /> <effectiveTime value= "881855097737" /> <value unit="" xsi:type="PQ" value="TRACE" /> <interpretationCode codeSystem="local" code="*" /> <referenceRange> <observationRange> <text>NEGATIVE</text> </ observationRange> </referenceRange> </observation> </ component> <component> <observation moodCode="EVN" classCode="OBS"> <templateId root="07.12.840.1.268716.03.15.22.4.2" /> <id nullFlavor="NA" /> <code codeSystem="local" code="DGLUU" displayName= "UA GLUCOSE DIPSTICK" /> <statusCode code="completed" /> < effectiveTime value="833130520439" /> <value unit="" xsi:type="PQ" value="NEGATIVE" /> <referenceRange> <observationRange> <text>NEGATIVE</text> </observationRange> </ referenceRange> </observation> </component> <component> <observation moodCode="EVN" classCode="OBS"> <templateId root= "2.16.840.1.144366.03.15.22.4.2" /> <id nullFlavor="NA" /> < code codeSystem="local" code="KETONU" displayName="UA KETONE DIPSTICK" /> <statusCode code="completed" /> <effectiveTime value="772293505429 " /> <value unit="" xsi:type="PQ" value="TRACE" /> < interpretationCode codeSystem="local" code="*" /> <referenceRange> <observationRange> <text>NEGATIVE</text> </ observationRange> </referenceRange> </observation> </ component> <component> <observation moodCode="EVN" classCode="OBS"> <templateId root="2.16.840.1.006457.03.15.22.4.2" /> <id nullFlavor="NA" /> <code codeSystem="local" code="UROBILU" displayName= "UA UROBILINOGEN DIPSTICK" /> <statusCode code="completed" /> <effectiveTime value="962970379115" /> <value unit="" xsi:type="PQ" value="NORMAL" /> <referenceRange> <observationRange> <text>NORMAL</text> </observationRange> </ referenceRange> </observation> </component> <component> <observation moodCode="EVN" classCode="OBS"> <templateId root= "216.840.1.544808.10..22.4.2" /> <id nullFlavor="NA" /> < code codeSystem="local" code="BILU" displayName="UA BILIRUBIN DIPSTICK" /> <statusCode code="completed" /> <effectiveTime value="922567556300 " /> <value unit="" xsi:type="PQ" value="NEGATIVE" /> < referenceRange> <observationRange> <text>NEGATIVE</text > </observationRange> </referenceRange> </observation > </component> <component> <observation moodCode="EVN" classCode="OBS"> <templateId root="216.840.1.053369.10...4.2" /> <id nullFlavor="NA" /> <code codeSystem="local" code="LON" displayName="UA BLOOD DIPSTICK" /> <statusCode code="completed" /> <effectiveTime value="845865997154" /> <value unit="" xsi:type= "PQ" value="4+" /> <interpretationCode codeSystem="local" code="*" /> <referenceRange> <observationRange> <text> NEGATIVE</text> </observationRange> </referenceRange> </observation> </component> <component> <observation moodCode ="EVN" classCode="OBS"> <templateId root= "216.840.1.009697.10..22.4.2" /> <id nullFlavor="NA" /> < code codeSystem="local" code="SPGRU" displayName="UA SPECIFIC GRAVITY" /> <statusCode code="completed" /> <effectiveTime value="315990201685 " /> <value unit="" xsi:type="PQ" value="1.018" /> < referenceRange> <observationRange> <text>1.015-1.025</ text> </observationRange> </referenceRange> </ observation> </component> <component> <observation moodCode= "EVN" classCode="OBS"> <templateId root="16.840.1.301188.10.2022.4.2 " /> <id nullFlavor="NA" /> <code codeSystem="local" code="WILLOW " displayName="UR PH" /> <statusCode code="completed" /> < effectiveTime value="093015147259" /> <value unit="" xsi:type="PQ" value="6.5" /> <referenceRange> <observationRange> <text>5.0-7.0</text> </observationRange> </ referenceRange> </observation> </component> </organizer> </entry > <entry> <organizer moodCode="EVN" classCode="BATTERY"> <templateId root="07.12.840.1.149738.10..22.4.1" /> <id nullFlavor="NA" /> <code codeSystem="local" code="UAMICRO" displayName="UA MICROSCOPIC" /> < statusCode code="completed" /> <component> <observation moodCode= "EVN" classCode="OBS"> <templateId root="07.12.840.1.621233.102022.4.2 " /> <id nullFlavor="NA" /> <code codeSystem="local" code= "BACU" displayName="UA BACTERIA" /> <statusCode code="completed" /> <effectiveTime value="770900697333" /> <value unit="" xsi:type= "PQ" value="5+" /> <interpretationCode codeSystem="local" code="*" /> <referenceRange> <observationRange> <text> NEGATIVE</text> </observationRange> </referenceRange> </observation> </component> <component> <observation moodCode ="EVN" classCode="OBS"> <templateId root= "16.840.1.961132.1022.4.2" /> <id nullFlavor="NA" /> < code codeSystem="local" code="EPIU" displayName="UA EPITHELIAL CELLS" /> <statusCode code="completed" /> <effectiveTime value="082839629830" /> <value unit="epi/hpf" xsi:type="PQ" value="4+" /> < interpretationCode codeSystem="local" code="*" /> <referenceRange> <observationRange> <text>0 - 1+</text> </ observationRange> </referenceRange> </observation> </ component> <component> <observation moodCode="EVN" classCode="OBS"> <templateId root="07.12.840.1.261257.03.15.22.4.2" /> <id nullFlavor="NA" /> <code codeSystem="local" code="MUCUSU" displayName= "UA MUCUS" /> <statusCode code="completed" /> <effectiveTime value="021646817433" /> <value unit="" xsi:type="PQ" value="2+" /> <interpretationCode codeSystem="local" code="*" /> < referenceRange> <observationRange> <text>NEG TO 1+</text > </observationRange> </referenceRange> </observation > </component> <component> <observation moodCode="EVN" classCode="OBS"> <templateId root="07.12.840.1.545791.1022.4.2" /> <id nullFlavor="NA" /> <code codeSystem="local" code="RBCU" displayName="UA RBC" /> <statusCode code="completed" /> < effectiveTime value="897731656714" /> <value unit="rbc/hpf" xsi:type= "PQ" value="3-5" /> <interpretationCode codeSystem="local" code="*" /> <referenceRange> <observationRange> <text>0 - 3</text> </observationRange> </referenceRange> </ observation> </component> <component> <observation moodCode= "EVN" classCode="OBS"> <templateId root="2.16.840.1.094855.10..22.4.2 " /> <id nullFlavor="NA" /> <code codeSystem="local" code= "UAVOL" displayName="UA VOLUME FOR EXAM" /> <statusCode code="completed " /> <effectiveTime value="442855280488" /> <value unit="mL" xsi:type="PQ" value="12.0" /> <referenceRange> < observationRange> <text>(12mL STD)</text> </ observationRange> </referenceRange> </observation> </ component> <component> <observation moodCode="EVN" classCode="OBS"> <templateId root="2.16.840.1.689447.10..22.4.2" /> <id nullFlavor="NA" /> <code codeSystem="local" code="WBCU" displayName=" UA WBC" /> <statusCode code="completed" /> <effectiveTime value="493394233519" /> <value unit="wbc/hpf" xsi:type="PQ" value="20- 50" /> <interpretationCode codeSystem="local" code="*" /> < referenceRange> <observationRange> <text>0 - 5</text> </observationRange> </referenceRange> </observation> </component> </organizer> </entry> <entry> <organizer moodCode="EVN " classCode="BATTERY"> <templateId root="2.16.840.1.136474.10.20.22.4.1" / > <id nullFlavor="NA" /> <code codeSystem="local" code="UC" displayName="URINE CULTURE" /> <statusCode code="completed" /> < component> <observation moodCode="EVN" classCode="OBS"> < templateId root="2.16.840.1.342601.10.20.22.4.2" /> <id nullFlavor="NA " /> <code codeSystem="local" code="MB" displayName="Microbiology" /> <statusCode code="completed" /> <effectiveTime value= "025514819733" /> <value xsi:type="ST" value="<pre><b> URINE CULTURE</b> See BelowURINE CULTURE(F) Red Date/Time: 06/17/2016 21:33 Matty Date/Time: 06/19/2016 09: 36SOURCE: URINESPEC DESC: CLEAN CATCHTREATMENT OF ASYMPTOMATIC BACTERIURIA IS NOT USUALLYCLINICALLY INDICATED.Organism #1 ESCHERICHIA COLICOLONY COUNT > 100,000 CFU/ML InterpAMPICILLIN VITEK >=32 RAMPICILLIN/SULBACTAM VITEK 16 ICEFAZOLIN VITEK <=4 SCEFEPIME VITEK &lt ;=1 SCEFTRIAXONE VITEK <=1 SCIPROFLOXACIN VITEK >=4 RGENTAMICIN VITEK <=1 SNITROFURANTOIN VITEK <=16 SPIPERACILLIN/TAZOBZCTAM VITEK &lt ;=4 STRIMETH/SULFA VITEK <=20 [facility] [place] [address]</pre>" /> <referenceRange> <observationRange> <text /> </ observationRange> </referenceRange> </observation> </ component> </organizer> </entry> <entry> <organizer moodCode="EVN" classCode="BATTERY"> <templateId root="16.840.1.041258.10..22.4.1" /> <id nullFlavor="NA" /> <code codeSystem="local" code="PREGN" displayName=" Screen, Urine NPT" /> <statusCode code="completed" / > <component> <observation moodCode="EVN" classCode="OBS"> <templateId root="07.12.840.1.644850.03.15.22.4.2" /> <id nullFlavor="NA " /> <code codeSystem="local" code="PREGN" displayName=" Screen, Urine NPT" /> <statusCode code="completed" /> < effectiveTime value="" /> <value unit="NA" xsi:type="PQ" value="Negative" /> <referenceRange> <observationRange> <text /> </observationRange> </referenceRange> </observation> </component> </organizer> </entry> <entry> < organizer moodCode="EVN" classCode="BATTERY"> <templateId root= "07.12.840.1.555972.10...4.1" /> <id nullFlavor="NA" /> <code codeSystem="local" code="VCHMN" displayName="Chem 8 NPT" /> <statusCode code="completed" /> <component> <observation moodCode="EVN" classCode="OBS"> <templateId root="07.12.840.1.667014.10..22.4.2" /> <id nullFlavor="NA" /> <code codeSystem="local" code="VAGAP" displayName="Anion Gap" /> <statusCode code="completed" /> < effectiveTime value="" /> <value unit="NA" xsi:type="PQ" value="11" /> <referenceRange> <observationRange> <text>3-20</text> </observationRange> </referenceRange> </observation> </component> <component> <observation moodCode="EVN" classCode="OBS"> <templateId root= "07.12.840.1.946131.10.20.22.4.2" /> <id nullFlavor="NA" /> < code codeSystem="local" code="VBUNN" displayName="BUN Venous" /> < statusCode code="completed" /> <effectiveTime value="359231554241" /> <value unit="mg/dl" xsi:type="PQ" value="12" /> < referenceRange> <observationRange> <text>4-20</text> </observationRange> </referenceRange> </observation> </component> <component> <observation moodCode="EVN" classCode= "OBS"> <templateId root="840.1.260439.10...4.2" /> < id nullFlavor="NA" /> <code codeSystem="local" code="VCANN" displayName ="Calcium Ionized Venous" /> <statusCode code="completed" /> < effectiveTime value="973756833178" /> <value unit="mmol/L" xsi:type="PQ " value="1.15" /> <interpretationCode codeSystem="local" code="*" /> <referenceRange> <observationRange> <text>1.19- 1.41</text> </observationRange> </referenceRange> </ observation> </component> <component> <observation moodCode= "EVN" classCode="OBS"> <templateId root="07.12.840.1.902773.10.20.22.4.2 " /> <id nullFlavor="NA" /> <code codeSystem="local" code= "VCREN" displayName="Creatinine Venous" /> <statusCode code="completed " /> <effectiveTime value="140930319539" /> <value unit="mg/dL " xsi:type="PQ" value="0.6" /> <referenceRange> < observationRange> <text>0.4-1.0</text> </ observationRange> </referenceRange> </observation> </ component> <component> <observation moodCode="EVN" classCode="OBS"> <templateId root="840.1.998144.10..22.4.2" /> <id nullFlavor="NA" /> <code codeSystem="local" code="VGLNN" displayName= "Glucose Venous" /> <statusCode code="completed" /> < effectiveTime value="687173217331" /> <value unit="mg/dL" xsi:type="PQ " value="78" /> <referenceRange> <observationRange> <text>70-100</text> </observationRange> </ referenceRange> </observation> </component> <component> <observation moodCode="EVN" classCode="OBS"> <templateId root= "840.1.126101.10..22.4.2" /> <id nullFlavor="NA" /> < code codeSystem="local" code="VKNN" displayName="Potassium, WB" /> < statusCode code="completed" /> <effectiveTime value="[id number]" /> <value unit="mEq/L" xsi:type="PQ" value="3.8" /> < referenceRange> <observationRange> <text>3.6-5.1</text> </observationRange> </referenceRange> </observation > </component> <component> <observation moodCode="EVN" classCode="OBS"> <templateId root="07.12.830.1.564966.10..22.4.2" /> <id nullFlavor="NA" /> <code codeSystem="local" code="VNANN" displayName="Sodium Venous" /> <statusCode code="completed" /> <effectiveTime value="377411843722" /> <value unit="mEq/L" xsi:type= "PQ" value="140" /> <referenceRange> <observationRange> <text>136-144</text> </observationRange> </ referenceRange> </observation> </component> <component> <observation moodCode="EVN" classCode="OBS"> <templateId root= "216.840.1.408728.10..22.4.2" /> <id nullFlavor="NA" /> < code codeSystem="local" code="VTCNN" displayName="Total CO2 Venous" /> <statusCode code="completed" /> <effectiveTime value="057772791730" /> <value unit="mEq/L" xsi:type="PQ" value="25" /> < referenceRange> <observationRange> <text>25-29</text> </observationRange> </referenceRange> </observation> </component> <component> <observation moodCode="EVN" classCode= "OBS"> <templateId root="216.840.1.294152.10.22.4.2" /> < id nullFlavor="NA" /> <code codeSystem="local" code="VCLN" displayName= "Venous CL" /> <statusCode code="completed" /> <effectiveTime value="602792825464" /> <value unit="mEq/L" xsi:type="PQ" value="104" / > <referenceRange> <observationRange> <text>99- 109</text> </observationRange> </referenceRange> </ observation> </component> <component> <observation moodCode= "EVN" classCode="OBS"> <templateId root="216.840.1.459114.10..4.2 " /> <id nullFlavor="NA" /> <code codeSystem="local" code= "VHCNN" displayName="HCT Venous" /> <statusCode code="completed" /> <effectiveTime value="893866048124" /> <value unit="%" xsi: type="PQ" value="26.0" /> <interpretationCode codeSystem="local" code= "*" /> <referenceRange> <observationRange> < text>37.0-47.0</text> </observationRange> </referenceRange> </observation> </component> <component> <observation moodCode="EVN" classCode="OBS"> <templateId root= "07.12.840.1.112324.03.15.22.4.2" /> <id nullFlavor="NA" /> < code codeSystem="local" code="VHGNN" displayName="HGB Venous NPT" /> < statusCode code="completed" /> <effectiveTime value="342984222029" /> <value unit="g/dL" xsi:type="PQ" value="8.8" /> < interpretationCode codeSystem="local" code="*" /> <referenceRange> <observationRange> <text>12.0-16.0</text> </ observationRange> </referenceRange> </observation> </ component> </organizer> </entry> <entry> <organizer moodCode="EVN" classCode="BATTERY"> <templateId root="216.840.1.531678.10.20.22.4.1" /> <id nullFlavor="NA" /> <code codeSystem="local" code="UA" displayName= "Urinalysis with reflex microscopic" /> <statusCode code="completed" /> <component> <observation moodCode="EVN" classCode="OBS"> < templateId root="16.840.1.698621.03.15.22.4.2" /> <id nullFlavor="NA " /> <code codeSystem="local" code="UAPP" displayName="Appearance" /> <statusCode code="completed" /> <effectiveTime value= "" /> <value unit="NA" xsi:type="PQ" value="Sl Cloudy" /> <referenceRange> <observationRange> <text /> </observationRange> </referenceRange> </observation> </component> <component> <observation moodCode="EVN" classCode= "OBS"> <templateId root="216.840.1.553229.03.15.224.2" /> < id nullFlavor="NA" /> <code codeSystem="local" code="UBIL" displayName= "Bilirubin" /> <statusCode code="completed" /> <effectiveTime value="" /> <value unit="NA" xsi:type="PQ" value="Negative " /> <referenceRange> <observationRange> <text> Negative</text> </observationRange> </referenceRange> </observation> </component> <component> <observation moodCode ="EVN" classCode="OBS"> <templateId root= "07.12.840.1.047271.10.4.2" /> <id nullFlavor="NA" /> < code codeSystem="local" code="UBLD" displayName="Blood" /> <statusCode code="completed" /> <effectiveTime value="" /> < value unit="NA" xsi:type="PQ" value="Pos 3+" /> <interpretationCode codeSystem="local" code="*" /> <referenceRange> < observationRange> <text>Negative</text> </ observationRange> </referenceRange> </observation> </ component> <component> <observation moodCode="EVN" classCode="OBS"> <templateId root="16.840.1.263303.10..4.2" /> <id nullFlavor="NA" /> <code codeSystem="local" code="UCOLR" displayName= "Color" /> <statusCode code="completed" /> <effectiveTime value="" /> <value unit="NA" xsi:type="PQ" value="Yellow" / > <referenceRange> <observationRange> <text /> </observationRange> </referenceRange> </observation > </component> <component> <observation moodCode="EVN" classCode="OBS"> <templateId root="840.1.714285.03.15.22.4.2" /> <id nullFlavor="NA" /> <code codeSystem="local" code="UGLU" displayName="Glucose, Urine" /> <statusCode code="completed" /> <effectiveTime value="" /> <value unit="" xsi:type="PQ" value="Negative" /> <referenceRange> <observationRange> <text>Negative</text> </observationRange> </ referenceRange> </observation> </component> <component> <observation moodCode="EVN" classCode="OBS"> <templateId root= "840.1.034572.03.15.22.4.2" /> <id nullFlavor="NA" /> < code codeSystem="local" code="UKET" displayName="Ketones" /> < statusCode code="completed" /> <effectiveTime value="889459404647" /> <value unit="" xsi:type="PQ" value="Negative" /> < referenceRange> <observationRange> <text>Negative</text > </observationRange> </referenceRange> </observation > </component> <component> <observation moodCode="EVN" classCode="OBS"> <templateId root="07.12.840.1.096413.10.4.2" /> <id nullFlavor="NA" /> <code codeSystem="local" code="ULEU" displayName="Leukocyte Esterase" /> <statusCode code="completed" /> <effectiveTime value="" /> <value unit="NA" xsi:type ="PQ" value="Negative" /> <referenceRange> <observationRange > <text>Negative</text> </observationRange> </ referenceRange> </observation> </component> <component> <observation moodCode="EVN" classCode="OBS"> <templateId root= "840.1.310345.03.15.22.4.2" /> <id nullFlavor="NA" /> < code codeSystem="local" code="UNIT" displayName="Nitrites" /> < statusCode code="completed" /> <effectiveTime value="" /> <value unit="NA" xsi:type="PQ" value="Negative" /> < referenceRange> <observationRange> <text>Negative</text > </observationRange> </referenceRange> </observation > </component> <component> <observation moodCode="EVN" classCode="OBS"> <templateId root="840.1.836632.03.15.22.4.2" /> <id nullFlavor="NA" /> <code codeSystem="local" code="UPH" displayName="pH" /> <statusCode code="completed" /> < effectiveTime value="" /> <value unit="NA" xsi:type="PQ" value="5.0" /> <referenceRange> <observationRange> <text>5.0-8.0</text> </observationRange> </ referenceRange> </observation> </component> <component> <observation moodCode="EVN" classCode="OBS"> <templateId root= "216.840.1.825555.03.15.22.4.2" /> <id nullFlavor="NA" /> < code codeSystem="local" code="UPRO" displayName="Protein" /> < statusCode code="completed" /> <effectiveTime value="" /> <value unit="NA" xsi:type="PQ" value="Negative" /> < referenceRange> <observationRange> <text>Negative</text > </observationRange> </referenceRange> </observation > </component> <component> <observation moodCode="EVN" classCode="OBS"> <templateId root="16.840.1.536447.03.15.22.4.2" /> <id nullFlavor="NA" /> <code codeSystem="local" code="USPG" displayName="Specific [place]" /> <statusCode code="completed" /> <effectiveTime value="" /> <value unit="NA" xsi:type= "PQ" value="1.030" /> <referenceRange> <observationRange> <text>1.003-1.030</text> </observationRange> </ referenceRange> </observation> </component> <component> <observation moodCode="EVN" classCode="OBS"> <templateId root= "16.840.1.665491.03.15.22.4.2" /> <id nullFlavor="NA" /> < code codeSystem="local" code="UTYP" displayName="UA Collection type" /> <statusCode code="completed" /> <effectiveTime value="092726481344" / > <value unit="NA" xsi:type="PQ" value="Clean Catch" /> < referenceRange> <observationRange> <text /> < /observationRange> </referenceRange> </observation> </ component> <component> <observation moodCode="EVN" classCode="OBS"> <templateId root="07.12.840.1.884245.10.4.2" /> <id nullFlavor="NA" /> <code codeSystem="local" code="UURO" displayName= "Urobilinogen" /> <statusCode code="completed" /> < effectiveTime value="041920989904" /> <value unit="mg/dL" xsi:type="PQ " value="Negative" /> <referenceRange> <observationRange> <text><1.0</text> </observationRange> </ referenceRange> </observation> </component> </organizer> </entry > <entry> <organizer moodCode="EVN" classCode="BATTERY"> <templateId root="07.12.840.1.963876.03.15.22.4.1" /> <id nullFlavor="NA" /> <code codeSystem="local" code="UMIC" displayName="Urine Microscopic" /> < statusCode code="completed" /> <component> <observation moodCode= "EVN" classCode="OBS"> <templateId root="840.1.336103.03.15.22.4.2 " /> <id nullFlavor="NA" /> <code codeSystem="local" code= "UBAC" displayName="Bacteria" /> <statusCode code="completed" /> <effectiveTime value="530608214423" /> <value unit="NA" xsi:type= "PQ" value="Occasional" /> <interpretationCode codeSystem="local" code= "*" /> <referenceRange> <observationRange> < text /> </observationRange> </referenceRange> </ observation> </component> <component> <observation moodCode= "EVN" classCode="OBS"> <templateId root="16.840.1.606356.10..4.2 " /> <id nullFlavor="NA" /> <code codeSystem="local" code= "UEPI" displayName="Epithelial Cells" /> <statusCode code="completed" / > <effectiveTime value="903682112394" /> <value unit="/HPF" xsi:type="PQ" value="5" /> <referenceRange> < observationRange> <text /> </observationRange> </referenceRange> </observation> </component> <component> <observation moodCode="EVN" classCode="OBS"> <templateId root= "16.840.1.677311.10..4.2" /> <id nullFlavor="NA" /> < code codeSystem="local" code="URBC" displayName="RBC, Urine" /> < statusCode code="completed" /> <effectiveTime value="171887370153" /> <value unit="/HPF" xsi:type="PQ" value=">50" /> < interpretationCode codeSystem="local" code="*" /> <referenceRange> <observationRange> <text>0-2</text> </ observationRange> </referenceRange> </observation> </ component> <component> <observation moodCode="EVN" classCode="OBS"> <templateId root="16.840.1.938704.10.22.4.2" /> <id nullFlavor="NA" /> <code codeSystem="local" code="UWBC" displayName= "WBC, Urine" /> <statusCode code="completed" /> < effectiveTime value="097112877286" /> <value unit="/HPF" xsi:type="PQ" value="2" /> <referenceRange> <observationRange> <text>0-4</text> </observationRange> </referenceRange> </observation> </component> </organizer> </entry> <entry> < organizer moodCode="EVN" classCode="BATTERY"> <templateId root= "216.840.1.215847.10..22.4.1" /> <id nullFlavor="NA" /> <code codeSystem="local" code="UA" displayName="Urinalysis with reflex microscopic" / > <statusCode code="completed" /> <component> <observation moodCode="EVN" classCode="OBS"> <templateId root= "216.840.1.107607.10..22.4.2" /> <id nullFlavor="NA" /> < code codeSystem="local" code="UAPP" displayName="Appearance" /> < statusCode code="completed" /> <effectiveTime value="805052625329" /> <value unit="NA" xsi:type="PQ" value="Cloudy" /> < interpretationCode codeSystem="local" code="*" /> <referenceRange> <observationRange> <text /> </observationRange> </referenceRange> </observation> </component> < component> <observation moodCode="EVN" classCode="OBS"> < templateId root="216.840.1.267931.10..22.4.2" /> <id nullFlavor="NA " /> <code codeSystem="local" code="UBIL" displayName="Bilirubin" /> <statusCode code="completed" /> <effectiveTime value= "" /> <value unit="NA" xsi:type="PQ" value="Negative" /> <referenceRange> <observationRange> <text> Negative</text> </observationRange> </referenceRange> </observation> </component> <component> <observation moodCode ="EVN" classCode="OBS"> <templateId root= "07.12.840.1.802188.03.15.22.4.2" /> <id nullFlavor="NA" /> < code codeSystem="local" code="UBLD" displayName="Blood" /> <statusCode code="completed" /> <effectiveTime value="" /> < value unit="NA" xsi:type="PQ" value="Pos 3+" /> <interpretationCode codeSystem="local" code="*" /> <referenceRange> < observationRange> <text>Negative</text> </ observationRange> </referenceRange> </observation> </ component> <component> <observation moodCode="EVN" classCode="OBS"> <templateId root="07.12.840.1.806509.03.15.22.4.2" /> <id nullFlavor="NA" /> <code codeSystem="local" code="UCOLR" displayName= "Color" /> <statusCode code="completed" /> <effectiveTime value="" /> <value unit="NA" xsi:type="PQ" value="Ute" / > <interpretationCode codeSystem="local" code="*" /> < referenceRange> <observationRange> <text /> < /observationRange> </referenceRange> </observation> </ component> <component> <observation moodCode="EVN" classCode="OBS"> <templateId root="07.12.840.1.297429.03.15.22.4.2" /> <id nullFlavor="NA" /> <code codeSystem="local" code="UGLU" displayName= "Glucose, Urine" /> <statusCode code="completed" /> < effectiveTime value="" /> <value unit="" xsi:type="PQ" value="Negative" /> <referenceRange> <observationRange> <text>Negative</text> </observationRange> </ referenceRange> </observation> </component> <component> <observation moodCode="EVN" classCode="OBS"> <templateId root= "2.16.840.1.573813.03.15.22.4.2" /> <id nullFlavor="NA" /> < code codeSystem="local" code="UKET" displayName="Ketones" /> < statusCode code="completed" /> <effectiveTime value="" /> <value unit="" xsi:type="PQ" value="Trace" /> < interpretationCode codeSystem="local" code="*" /> <referenceRange> <observationRange> <text>Negative</text> </ observationRange> </referenceRange> </observation> </ component> <component> <observation moodCode="EVN" classCode="OBS"> <templateId root="2.16.840.1.962171.03.15.22.4.2" /> <id nullFlavor="NA" /> <code codeSystem="local" code="ULEU" displayName= "Leukocyte Esterase" /> <statusCode code="completed" /> < effectiveTime value="" /> <value unit="NA" xsi:type="PQ" value="Pos 1+" /> <interpretationCode codeSystem="local" code="*" /> <referenceRange> <observationRange> <text> Negative</text> </observationRange> </referenceRange> </observation> </component> <component> <observation moodCode ="EVN" classCode="OBS"> <templateId root= "16.840.1.152401.10..4.2" /> <id nullFlavor="NA" /> < code codeSystem="local" code="UNIT" displayName="Nitrites" /> < statusCode code="completed" /> <effectiveTime value="" /> <value unit="NA" xsi:type="PQ" value="Negative" /> < referenceRange> <observationRange> <text>Negative</text > </observationRange> </referenceRange> </observation > </component> <component> <observation moodCode="EVN" classCode="OBS"> <templateId root="07.12.840.1.253751.03.15.22.4.2" /> <id nullFlavor="NA" /> <code codeSystem="local" code="UPH" displayName="pH" /> <statusCode code="completed" /> < effectiveTime value="" /> <value unit="NA" xsi:type="PQ" value="5.0" /> <referenceRange> <observationRange> <text>5.0-8.0</text> </observationRange> </ referenceRange> </observation> </component> <component> <observation moodCode="EVN" classCode="OBS"> <templateId root= "07.12.840.1.852283.10..4.2" /> <id nullFlavor="NA" /> < code codeSystem="local" code="UPRO" displayName="Protein" /> < statusCode code="completed" /> <effectiveTime value="" /> <value unit="NA" xsi:type="PQ" value="Pos 1+" /> < interpretationCode codeSystem="local" code="*" /> <referenceRange> <observationRange> <text>Negative</text> </ observationRange> </referenceRange> </observation> </ component> <component> <observation moodCode="EVN" classCode="OBS"> <templateId root="16.840.1.187268.10..4.2" /> <id nullFlavor="NA" /> <code codeSystem="local" code="USPG" displayName= "Specific [place]" /> <statusCode code="completed" /> < effectiveTime value="943398280220" /> <value unit="NA" xsi:type="PQ" value="1.035" /> <interpretationCode codeSystem="local" code="*" /> <referenceRange> <observationRange> <text>1.003- 1.030</text> </observationRange> </referenceRange> </ observation> </component> <component> <observation moodCode= "EVN" classCode="OBS"> <templateId root="07.12.840.1.767951.03.15.22.4.2 " /> <id nullFlavor="NA" /> <code codeSystem="local" code= "UTYP" displayName="UA Collection type" /> <statusCode code="completed " /> <effectiveTime value="706157930026" /> <value unit="NA" xsi:type="PQ" value="Clean Catch" /> <referenceRange> < observationRange> <text /> </observationRange> </referenceRange> </observation> </component> <component> <observation moodCode="EVN" classCode="OBS"> <templateId root= "07.12.840.1.621698.10.4.2" /> <id nullFlavor="NA" /> < code codeSystem="local" code="UURO" displayName="Urobilinogen" /> < statusCode code="completed" /> <effectiveTime value="" /> <value unit="mg/dL" xsi:type="PQ" value="2.0" /> < interpretationCode codeSystem="local" code="*" /> <referenceRange> <observationRange> <text><1.0</text> </ observationRange> </referenceRange> </observation> </ component> </organizer> </entry> <entry> <organizer moodCode="EVN" classCode="BATTERY"> <templateId root="216.840.1.616725.10..22.4.1" /> <id nullFlavor="NA" /> <code codeSystem="local" code="UPREG" displayName=" Screen, Urine" /> <statusCode code="completed" /> <component> <observation moodCode="EVN" classCode="OBS"> < templateId root="216.840.1.617401.10..22.4.2" /> <id nullFlavor="NA " /> <code codeSystem="local" code="UPREG" displayName=" Screen, Urine" /> <statusCode code="completed" /> < effectiveTime value="" /> <value unit="NA" xsi:type="PQ" value="Negative" /> <referenceRange> <observationRange> <text /> </observationRange> </referenceRange> </observation> </component> </organizer> </entry> <entry> < organizer moodCode="EVN" classCode="BATTERY"> <templateId root= "216.840.1.512311.10..22.4.1" /> <id nullFlavor="NA" /> <code codeSystem="local" code="UMIC" displayName="Urine Microscopic" /> < statusCode code="completed" /> <component> <observation moodCode= "EVN" classCode="OBS"> <templateId root="07.12.840.1.068812.10.22.4.2 " /> <id nullFlavor="NA" /> <code codeSystem="local" code= "UBAC" displayName="Bacteria" /> <statusCode code="completed" /> <effectiveTime value="" /> <value unit="NA" xsi:type= "PQ" value="Numerous" /> <interpretationCode codeSystem="local" code="* " /> <referenceRange> <observationRange> <text /> </observationRange> </referenceRange> </ observation> </component> <component> <observation moodCode= "EVN" classCode="OBS"> <templateId root="07.12.840.1.092195.10.4.2 " /> <id nullFlavor="NA" /> <code codeSystem="local" code= "UCRY1" displayName="Crystals" /> <statusCode code="completed" /> <effectiveTime value="" /> <value unit="NA" xsi:type= "PQ" value="Ca Ox" /> <referenceRange> <observationRange> <text /> </observationRange> </referenceRange> </observation> </component> <component> <observation moodCode="EVN" classCode="OBS"> <templateId root= "840.1.711117.10.4.2" /> <id nullFlavor="NA" /> < code codeSystem="local" code="UEPI" displayName="Epithelial Cells" /> < statusCode code="completed" /> <effectiveTime value="" /> <value unit="/HPF" xsi:type="PQ" value="10" /> <referenceRange > <observationRange> <text /> </ observationRange> </referenceRange> </observation> </ component> <component> <observation moodCode="EVN" classCode="OBS"> <templateId root="216.840.1.290186.10.4.2" /> <id nullFlavor="NA" /> <code codeSystem="local" code="URBC" displayName= "RBC, Urine" /> <statusCode code="completed" /> < effectiveTime value="" /> <value unit="/HPF" xsi:type="PQ" value=">50" /> <interpretationCode codeSystem="local" code="*" /> <referenceRange> <observationRange> <text>0-2</ text> </observationRange> </referenceRange> </ observation> </component> <component> <observation moodCode= "EVN" classCode="OBS"> <templateId root="16.840.1.288036.03.15.224.2 " /> <id nullFlavor="NA" /> <code codeSystem="local" code= "UMUC" displayName="Urine Mucus" /> <statusCode code="completed" /> <effectiveTime value="" /> <value unit="NA" xsi:type ="PQ" value="Present" /> <referenceRange> <observationRange > <text /> </observationRange> </referenceRange > </observation> </component> <component> <observation moodCode="EVN" classCode="OBS"> <templateId root= "216.840.1.331868.03.15.22.4.2" /> <id nullFlavor="NA" /> < code codeSystem="local" code="UWBC" displayName="WBC, Urine" /> < statusCode code="completed" /> <effectiveTime value="" /> <value unit="/HPF" xsi:type="PQ" value="10" /> < interpretationCode codeSystem="local" code="*" /> <referenceRange> <observationRange> <text>0-4</text> </ observationRange> </referenceRange> </observation> </ component> </organizer> </entry> <entry> <organizer moodCode="EVN" classCode="BATTERY"> <templateId root="07.12.840.1.202994.10...4.1" /> <id nullFlavor="NA" /> <code codeSystem="local" code="EDRBW" displayName="ED RAINBOW COLLECT" /> <statusCode code="completed" /> < component> <observation moodCode="EVN" classCode="OBS"> < templateId root="16.840.1.959193.10...4.2" /> <id nullFlavor="NA " /> <code codeSystem="local" code="PST" displayName="PLASMA SEPARATOR TUBE" /> <statusCode code="completed" /> <effectiveTime value= "" /> <value unit="mL" xsi:type="PQ" value="Done" /> <referenceRange> <observationRange> <text /> </observationRange> </referenceRange> </observation> < /component> <component> <observation moodCode="EVN" classCode="OBS" > <templateId root="07.12.840.1.380887.03.15.22.4.2" /> <id nullFlavor="NA" /> <code codeSystem="local" code="SST" displayName= "SERUM SEPARATOR TUBE" /> <statusCode code="completed" /> < effectiveTime value="" /> <value unit="mL" xsi:type="PQ" value="Done" /> <referenceRange> <observationRange> <text /> </observationRange> </referenceRange> </observation> </component> <component> <observation moodCode= "EVN" classCode="OBS"> <templateId root="07.12.840.1.444718.03.15.22.4.2 " /> <id nullFlavor="NA" /> <code codeSystem="local" code="LON " displayName="CITRATE BLUE" /> <statusCode code="completed" /> <effectiveTime value="" /> <value unit="mL" xsi:type="PQ " value="Done" /> <referenceRange> <observationRange> <text /> </observationRange> </referenceRange> </observation> </component> <component> <observation moodCode="EVN" classCode="OBS"> <templateId root= "840.1.608107.03.15.224.2" /> <id nullFlavor="NA" /> < code codeSystem="local" code="LAV" displayName="Lavendar Tube" /> < statusCode code="completed" /> <effectiveTime value="" /> <value unit="mL" xsi:type="PQ" value="Done" /> <referenceRange > <observationRange> <text /> </ observationRange> </referenceRange> </observation> </ component> </organizer> </entry> <entry> <organizer moodCode="EVN" classCode="BATTERY"> <templateId root="07.12.840.1.303112.03.15.22.4.1" /> <id nullFlavor="NA" /> <code codeSystem="local" code="CBCD" displayName="CBC W/DIFF" /> <statusCode code="completed" /> <component > <observation moodCode="EVN" classCode="OBS"> <templateId root= "07.12.840.1.642115.03.15.22.4.2" /> <id nullFlavor="NA" /> < code codeSystem="local" code="BA#" displayName="BASOPHIL #" /> < statusCode code="completed" /> <effectiveTime value="607338860371" /> <value unit="k/cumm" xsi:type="PQ" value="0.0" /> < referenceRange> <observationRange> <text>0.0-0.2</text> </observationRange> </referenceRange> </observation > </component> <component> <observation moodCode="EVN" classCode="OBS"> <templateId root="2.16.840.1.436134.03.15.224.2" /> <id nullFlavor="NA" /> <code codeSystem="local" code="BA% " displayName="BASOPHIL %" /> <statusCode code="completed" /> <effectiveTime value="026651633122" /> <value unit="%" xsi: type="PQ" value="1" /> <referenceRange> <observationRange> <text>0-1</text> </observationRange> </ referenceRange> </observation> </component> <component> <observation moodCode="EVN" classCode="OBS"> <templateId root= "2.16.840.1.992419.03.15.22.4.2" /> <id nullFlavor="NA" /> < code codeSystem="local" code="CBCCOM" displayName="COMMENT" /> < statusCode code="completed" /> <effectiveTime value="455930355045" /> <value unit="" xsi:type="PQ" value="" /> <referenceRange> <observationRange> <text /> </ observationRange> </referenceRange> </observation> </ component> <component> <observation moodCode="EVN" classCode="OBS"> <templateId root="07.12.840.1.108976.10..22.4.2" /> <id nullFlavor="NA" /> <code codeSystem="local" code="EO#" displayName= "EOSINOPHIL #" /> <statusCode code="completed" /> < effectiveTime value="" /> <value unit="k/cumm" xsi:type="PQ " value="0.1" /> <referenceRange> <observationRange> <text>0.1-0.5</text> </observationRange> </ referenceRange> </observation> </component> <component> <observation moodCode="EVN" classCode="OBS"> <templateId root= "07.12.840.1.760575.10.4.2" /> <id nullFlavor="NA" /> < code codeSystem="local" code="EO%" displayName="EOSINOPHIL %" /> <statusCode code="completed" /> <effectiveTime value="" /> <value unit="%" xsi:type="PQ" value="2" /> < referenceRange> <observationRange> <text>2-4</text> </observationRange> </referenceRange> </observation> </component> <component> <observation moodCode="EVN" classCode= "OBS"> <templateId root="07.12.840.1.753062.10.2022.4.2" /> < id nullFlavor="NA" /> <code codeSystem="local" code="GR#" displayName= "GRANULOCYTE #" /> <statusCode code="completed" /> < effectiveTime value="[id number]" /> <value unit="k/cumm" xsi:type="PQ " value="3.8" /> <referenceRange> <observationRange> <text>2.0-9.0</text> </observationRange> </ referenceRange> </observation> </component> <component> <observation moodCode="EVN" classCode="OBS"> <templateId root= "16.840.1.487150.10.2022.4.2" /> <id nullFlavor="NA" /> < code codeSystem="local" code="GR%" displayName="GRANULOCYTE %" /> <statusCode code="completed" /> <effectiveTime value="[id number] " /> <value unit="%" xsi:type="PQ" value="61" /> < referenceRange> <observationRange> <text>50-75</text> </observationRange> </referenceRange> </observation> </component> <component> <observation moodCode="EVN" classCode= "OBS"> <templateId root="07.12.840.1.828907.03.15.22.4.2" /> < id nullFlavor="NA" /> <code codeSystem="local" code="LY#" displayName= "LYMPHOCYTE #" /> <statusCode code="completed" /> < effectiveTime value="489134126799" /> <value unit="k/cumm" xsi:type="PQ " value="1.8" /> <referenceRange> <observationRange> <text>1.0-4.0</text> </observationRange> </ referenceRange> </observation> </component> <component> <observation moodCode="EVN" classCode="OBS"> <templateId root= "07.12.840.1.156397..2022.4.2" /> <id nullFlavor="NA" /> < code codeSystem="local" code="LY%" displayName="LYMPHOCYTE %" /> <statusCode code="completed" /> <effectiveTime value="338867355319" /> <value unit="%" xsi:type="PQ" value="29" /> < referenceRange> <observationRange> <text>20-30</text> </observationRange> </referenceRange> </observation> </component> <component> <observation moodCode="EVN" classCode= "OBS"> <templateId root="216.840.1.598929.10.22.4.2" /> < id nullFlavor="NA" /> <code codeSystem="local" code="MCH" displayName= "MEAN CELL HGB" /> <statusCode code="completed" /> < effectiveTime value="652531413399" /> <value unit="pg" xsi:type="PQ" value="17.3" /> <interpretationCode codeSystem="local" code="*" /> <referenceRange> <observationRange> <text>27.0- 33.0</text> </observationRange> </referenceRange> </ observation> </component> <component> <observation moodCode= "EVN" classCode="OBS"> <templateId root="216.840.1.306130.10.2022.4.2 " /> <id nullFlavor="NA" /> <code codeSystem="local" code= "MCHC" displayName="MEAN CELL HGB CONCENTRATION" /> <statusCode code= "completed" /> <effectiveTime value="005228151174" /> <value unit="g/dL" xsi:type="PQ" value="25.4" /> <interpretationCode codeSystem="local" code="*" /> <referenceRange> < observationRange> <text>32.0-37.0</text> </ observationRange> </referenceRange> </observation> </ component> <component> <observation moodCode="EVN" classCode="OBS"> <templateId root="07.12.840.1.188291.10.20.22.4.2" /> <id nullFlavor="NA" /> <code codeSystem="local" code="MCV" displayName= "MEAN CELL VOLUME" /> <statusCode code="completed" /> < effectiveTime value="" /> <value unit="fl" xsi:type="PQ" value="68.2" /> <interpretationCode codeSystem="local" code="*" /> <referenceRange> <observationRange> <text>80.0- 100.0</text> </observationRange> </referenceRange> </ observation> </component> <component> <observation moodCode= "EVN" classCode="OBS"> <templateId root="840.1.218172.03.15.22.4.2 " /> <id nullFlavor="NA" /> <code codeSystem="local" code="MO# " displayName="MONOCYTE #" /> <statusCode code="completed" /> <effectiveTime value="" /> <value unit="k/cumm" xsi:type= "PQ" value="0.4" /> <referenceRange> <observationRange> <text>0.1-1.0</text> </observationRange> </ referenceRange> </observation> </component> <component> <observation moodCode="EVN" classCode="OBS"> <templateId root= "840.1.549713.10.20.22.4.2" /> <id nullFlavor="NA" /> < code codeSystem="local" code="MO%" displayName="MONOCYTE %" /> <statusCode code="completed" /> <effectiveTime value="" /> <value unit="%" xsi:type="PQ" value="7" /> < interpretationCode codeSystem="local" code="*" /> <referenceRange> <observationRange> <text>4-6</text> </ observationRange> </referenceRange> </observation> </ component> <component> <observation moodCode="EVN" classCode="OBS"> <templateId root="07.12.840.1.958134.10..22.4.2" /> <id nullFlavor="NA" /> <code codeSystem="local" code="OVAL" displayName= "OVALOCYTES" /> <statusCode code="completed" /> < effectiveTime value="193578617661" /> <value unit="" xsi:type="PQ" value="NOTED" /> <referenceRange> <observationRange> <text /> </observationRange> </referenceRange> </observation> </component> <component> <observation moodCode ="EVN" classCode="OBS"> <templateId root= "840.1.356437.10...4.2" /> <id nullFlavor="NA" /> < code codeSystem="local" code="RBC" displayName="RED BLOOD CELL" /> < statusCode code="completed" /> <effectiveTime value="484483363314" /> <value unit="m/cumm" xsi:type="PQ" value="3.81" /> < interpretationCode codeSystem="local" code="*" /> <referenceRange> <observationRange> <text>4.00-6.00</text> </ observationRange> </referenceRange> </observation> </ component> <component> <observation moodCode="EVN" classCode="OBS"> <templateId root="07.12.840.1.120219.10...4.2" /> <id nullFlavor="NA" /> <code codeSystem="local" code="RDW" displayName=" RED CELL DISTRIBUTION WIDTH" /> <statusCode code="completed" /> <effectiveTime value="" /> <value unit="%" xsi:type= "PQ" value="18.7" /> <interpretationCode codeSystem="local" code="*" / > <referenceRange> <observationRange> <text> 11.0-15.6</text> </observationRange> </referenceRange> </observation> </component> <component> <observation moodCode="EVN" classCode="OBS"> <templateId root= "216.840.1.033700.10..22.4.2" /> <id nullFlavor="NA" /> < code codeSystem="local" code="TEAR" displayName="TEAR DROP CELLS" /> < statusCode code="completed" /> <effectiveTime value="" /> <value unit="" xsi:type="PQ" value="NOTED" /> <referenceRange > <observationRange> <text /> </ observationRange> </referenceRange> </observation> </ component> <component> <observation moodCode="EVN" classCode="OBS"> <templateId root="2.16.840.1.400638.10.20.22.4.2" /> <id nullFlavor="NA" /> <code codeSystem="local" code="WBC" displayName= "WHITE BLOOD CELL" /> <statusCode code="completed" /> < effectiveTime value="" /> <value unit="k/cumm" xsi:type="PQ " value="6.2" /> <referenceRange> <observationRange> <text>5.0-10.0</text> </observationRange> </ referenceRange> </observation> </component> <component> <observation moodCode="EVN" classCode="OBS"> <templateId root= "07.12.840.1.305542.10..22.4.2" /> <id nullFlavor="NA" /> < code codeSystem="local" code="HGBT" displayName="HEMOGLOBIN" /> < statusCode code="completed" /> <effectiveTime value="986031069679" /> <value unit="gm/dL" xsi:type="PQ" value="6.6" /> < interpretationCode codeSystem="local" code="*" /> <referenceRange> <observationRange> <text>12.0-16.0</text> </ observationRange> </referenceRange> </observation> </ component> <component> <observation moodCode="EVN" classCode="OBS"> <templateId root="07.12.840.1.406232...4.2" /> <id nullFlavor="NA" /> <code codeSystem="local" code="HCTT" displayName= "HEMATOCRIT" /> <statusCode code="completed" /> < effectiveTime value="168176308569" /> <value unit="%" xsi:type="PQ " value="26.0" /> <interpretationCode codeSystem="local" code="*" /> <referenceRange> <observationRange> <text>37.0- 47.0</text> </observationRange> </referenceRange> </ observation> </component> <component> <observation moodCode= "EVN" classCode="OBS"> <templateId root="07.12.840.1.656799.10.22.4.2 " /> <id nullFlavor="NA" /> <code codeSystem="local" code="PLT " displayName="PLATELET COUNT" /> <statusCode code="completed" /> <effectiveTime value="752237702738" /> <value unit="k/cumm" xsi: type="PQ" value="410" /> <interpretationCode codeSystem="local" code="* " /> <referenceRange> <observationRange> <text> 150-400</text> </observationRange> </referenceRange> </observation> </component> </organizer> </entry> <entry> < organizer moodCode="EVN" classCode="BATTERY"> <templateId root= "16.840.1.523993.10.22.4.1" /> <id nullFlavor="NA" /> <code codeSystem="local" code="UANRC" displayName="URINALYSIS, NO REFLEX CULTURE" /> <statusCode code="completed" /> <component> <observation moodCode="EVN" classCode="OBS"> <templateId root= "216.840.1.614194.10...4.2" /> <id nullFlavor="NA" /> < code codeSystem="local" code="LEUESU" displayName="UA LEUKOCYTE ESTERASE DIPSTICK" /> <statusCode code="completed" /> <effectiveTime value="" /> <value unit="" xsi:type="PQ" value="TRACE" /> <referenceRange> <observationRange> <text> NEGATIVE</text> </observationRange> </referenceRange> </observation> </component> <component> <observation moodCode ="EVN" classCode="OBS"> <templateId root= "07.12.840.1.651445.10..22.4.2" /> <id nullFlavor="NA" /> < code codeSystem="local" code="NITRIU" displayName="UA NITRITE DIPSTICK" /> <statusCode code="completed" /> <effectiveTime value=" " /> <value unit="" xsi:type="PQ" value="NEGATIVE" /> < referenceRange> <observationRange> <text>NEGATIVE</text > </observationRange> </referenceRange> </observation > </component> <component> <observation moodCode="EVN" classCode="OBS"> <templateId root="16.840.1.497708.10.4.2" /> <id nullFlavor="NA" /> <code codeSystem="local" code="PROTEIU " displayName="UA PROTEIN DIPSTICK" /> <statusCode code="completed" /> <effectiveTime value="" /> <value unit="" xsi: type="PQ" value="NEGATIVE" /> <referenceRange> < observationRange> <text>NEGATIVE</text> </ observationRange> </referenceRange> </observation> </ component> <component> <observation moodCode="EVN" classCode="OBS"> <templateId root="07.12.840.1.419437.03.15.22.4.2" /> <id nullFlavor="NA" /> <code codeSystem="local" code="DGLUU" displayName= "UA GLUCOSE DIPSTICK" /> <statusCode code="completed" /> < effectiveTime value="" /> <value unit="" xsi:type="PQ" value="NEGATIVE" /> <referenceRange> <observationRange> <text>NEGATIVE</text> </observationRange> </ referenceRange> </observation> </component> <component> <observation moodCode="EVN" classCode="OBS"> <templateId root= "07.12.840.1.415633.03.15.22.4.2" /> <id nullFlavor="NA" /> < code codeSystem="local" code="KETONU" displayName="UA KETONE DIPSTICK" /> <statusCode code="completed" /> <effectiveTime value=" " /> <value unit="" xsi:type="PQ" value="TRACE" /> < referenceRange> <observationRange> <text>NEGATIVE</text > </observationRange> </referenceRange> </observation > </component> <component> <observation moodCode="EVN" classCode="OBS"> <templateId root="16.840.1.357247.10..4.2" /> <id nullFlavor="NA" /> <code codeSystem="local" code="UROBILU " displayName="UA UROBILINOGEN DIPSTICK" /> <statusCode code="completed " /> <effectiveTime value="054273610946" /> <value unit="" xsi :type="PQ" value="NORMAL" /> <referenceRange> < observationRange> <text>NORMAL</text> </observationRange > </referenceRange> </observation> </component> < component> <observation moodCode="EVN" classCode="OBS"> < templateId root="07.12.840.1.305686.03.15.22.4.2" /> <id nullFlavor="NA " /> <code codeSystem="local" code="BILU" displayName="UA BILIRUBIN DIPSTICK" /> <statusCode code="completed" /> <effectiveTime value="649756728882" /> <value unit="" xsi:type="PQ" value="NEGATIVE" / > <referenceRange> <observationRange> <text> NEGATIVE</text> </observationRange> </referenceRange> </observation> </component> <component> <observation moodCode ="EVN" classCode="OBS"> <templateId root= "07.12.840.1.455964.1022.4.2" /> <id nullFlavor="NA" /> < code codeSystem="local" code="LON" displayName="UA BLOOD DIPSTICK" /> < statusCode code="completed" /> <effectiveTime value="" /> <value unit="" xsi:type="PQ" value="NEGATIVE" /> < referenceRange> <observationRange> <text>NEGATIVE</text > </observationRange> </referenceRange> </observation > </component> <component> <observation moodCode="EVN" classCode="OBS"> <templateId root="2.16.840.1.824235.10.4.2" /> <id nullFlavor="NA" /> <code codeSystem="local" code="SPGRU" displayName="UA SPECIFIC GRAVITY" /> <statusCode code="completed" /> <effectiveTime value="" /> <value unit="" xsi:type= "PQ" value="1.021" /> <referenceRange> <observationRange> <text>1.015-1.025</text> </observationRange> </ referenceRange> </observation> </component> <component> <observation moodCode="EVN" classCode="OBS"> <templateId root= "216.840.1.296423.10..4.2" /> <id nullFlavor="NA" /> < code codeSystem="local" code="WILLOW" displayName="UR PH" /> <statusCode code="completed" /> <effectiveTime value="" /> < value unit="" xsi:type="PQ" value="7.0" /> <referenceRange> <observationRange> <text>5.0-7.0</text> </ observationRange> </referenceRange> </observation> </ component> </organizer> </entry> <entry> <organizer moodCode="EVN" classCode="BATTERY"> <templateId root="2.16.840.1.106831..4.1" /> <id nullFlavor="NA" /> <code codeSystem="local" code="UAMICRO" displayName="UA MICROSCOPIC" /> <statusCode code="completed" /> < component> <observation moodCode="EVN" classCode="OBS"> < templateId root="16.840.1.723886.10.4.2" /> <id nullFlavor="NA " /> <code codeSystem="local" code="BACU" displayName="UA BACTERIA" /> <statusCode code="completed" /> <effectiveTime value= "" /> <value unit="" xsi:type="PQ" value="1+" /> < referenceRange> <observationRange> <text>NEGATIVE</text > </observationRange> </referenceRange> </observation > </component> <component> <observation moodCode="EVN" classCode="OBS"> <templateId root="07.12.840.1.889794.03.15.224.2" /> <id nullFlavor="NA" /> <code codeSystem="local" code="EPIU" displayName="UA EPITHELIAL CELLS" /> <statusCode code="completed" /> <effectiveTime value="" /> <value unit="epi/hpf" xsi:type="PQ" value="2+" /> <referenceRange> < observationRange> <text>0 - 1+</text> </observationRange > </referenceRange> </observation> </component> < component> <observation moodCode="EVN" classCode="OBS"> < templateId root="07.12.840.1.583987.03.15.224.2" /> <id nullFlavor="NA " /> <code codeSystem="local" code="MUCUSU" displayName="UA MUCUS" /> <statusCode code="completed" /> <effectiveTime value= "" /> <value unit="" xsi:type="PQ" value="1+" /> < referenceRange> <observationRange> <text>NEG TO 1+</text > </observationRange> </referenceRange> </observation > </component> <component> <observation moodCode="EVN" classCode="OBS"> <templateId root="2.16.840.1.197260.10..22.4.2" /> <id nullFlavor="NA" /> <code codeSystem="local" code="UAVOL" displayName="UA VOLUME FOR EXAM" /> <statusCode code="completed" /> <effectiveTime value="" /> <value unit="mL" xsi:type ="PQ" value="12.0" /> <referenceRange> <observationRange> <text>(12mL STD)</text> </observationRange> </ referenceRange> </observation> </component> <component> <observation moodCode="EVN" classCode="OBS"> <templateId root= "216.840.1.924167.10...4.2" /> <id nullFlavor="NA" /> < code codeSystem="local" code="WBCU" displayName="UA WBC" /> < statusCode code="completed" /> <effectiveTime value="" /> <value unit="wbc/hpf" xsi:type="PQ" value="0-1" /> < referenceRange> <observationRange> <text>0 - 5</text> </observationRange> </referenceRange> </observation> </component> </organizer> </entry> <entry> <organizer moodCode="EVN " classCode="BATTERY"> <templateId root="2.16.840.1.799159.10..22.4.1" / > <id nullFlavor="NA" /> <code codeSystem="local" code="PREGU" displayName="UR TEST" /> <statusCode code="completed" /> < component> <observation moodCode="EVN" classCode="OBS"> < templateId root="216.840.1.460774.10..22.4.2" /> <id nullFlavor="NA " /> <code codeSystem="local" code="PREGU" displayName="UR TEST" /> <statusCode code="completed" /> <effectiveTime value= "112900435051" /> <value unit="" xsi:type="PQ" value="NEGATIVE" /> <referenceRange> <observationRange> <text>NEGATIVE </text> </observationRange> </referenceRange> </ observation> </component> </organizer> </entry> <entry> <organizer moodCode="EVN" classCode="BATTERY"> <templateId root= "216.840.1.430793.10..22.4.1" /> <id nullFlavor="NA" /> <code codeSystem="local" code="PT" displayName="PROTHROMBIN TIME WITH INR" /> < statusCode code="completed" /> <component> <observation moodCode= "EVN" classCode="OBS"> <templateId root="216.840.1.541515.10..22.4.2 " /> <id nullFlavor="NA" /> <code codeSystem="local" code= "INRX" displayName="INTERNATIONAL NORMAL RATIO" /> <statusCode code= "completed" /> <effectiveTime value="459323373886" /> <value unit="" xsi:type="PQ" value="1.0" /> <referenceRange> < observationRange> <text>0.9-1.1</text> </ observationRange> </referenceRange> </observation> </ component> <component> <observation moodCode="EVN" classCode="OBS"> <templateId root="16.840.1.953525.10..22.4.2" /> <id nullFlavor="NA" /> <code codeSystem="local" code="PTPAT" displayName= "PROTHROMBIN TIME" /> <statusCode code="completed" /> < effectiveTime value="459307041838" /> <value unit="sec" xsi:type="PQ" value="11.2" /> <referenceRange> <observationRange> <text>10.0-12.8</text> </observationRange> </ referenceRange> </observation> </component> </organizer> </entry > <entry> <organizer moodCode="EVN" classCode="BATTERY"> <templateId root="216.840.1.334911.10..22.4.1" /> <id nullFlavor="NA" /> <code codeSystem="local" code="METABC" displayName="METABOLIC PANEL, COMPREHN" /> <statusCode code="completed" /> <component> <observation moodCode= "EVN" classCode="OBS"> <templateId root="216.840.1.114915.10..22.4.2 " /> <id nullFlavor="NA" /> <code codeSystem="local" code="K" displayName="POTASSIUM" /> <statusCode code="completed" /> < effectiveTime value="490782296652" /> <value unit="mmol/L" xsi:type="PQ " value="3.9" /> <referenceRange> <observationRange> <text>3.5-5.3</text> </observationRange> </ referenceRange> </observation> </component> <component> <observation moodCode="EVN" classCode="OBS"> <templateId root= "16.840.1.093243.22.4.2" /> <id nullFlavor="NA" /> < code codeSystem="local" code="eGFR" displayName="EST GFR (MDRD)" /> < statusCode code="completed" /> <effectiveTime value="" /> <value unit="mL/min" xsi:type="PQ" value="> 60" /> < referenceRange> <observationRange> <text>> 59</text> </observationRange> </referenceRange> </observation > </component> <component> <observation moodCode="EVN" classCode="OBS"> <templateId root="216.840.1.064682.03.15.22.4.2" /> <id nullFlavor="NA" /> <code codeSystem="local" code="GAP" displayName="ANION GAP" /> <statusCode code="completed" /> < effectiveTime value="" /> <value unit="mmol/L" xsi:type="PQ " value="8" /> <referenceRange> <observationRange> <text>5-15</text> </observationRange> </referenceRange > </observation> </component> <component> <observation moodCode="EVN" classCode="OBS"> <templateId root= "216.840.1.368242...4.2" /> <id nullFlavor="NA" /> < code codeSystem="local" code="GLU" displayName="GLUCOSE" /> < statusCode code="completed" /> <effectiveTime value="" /> <value unit="mg/dL" xsi:type="PQ" value="99" /> < referenceRange> <observationRange> <text>70-99</text> </observationRange> </referenceRange> </observation> </component> <component> <observation moodCode="EVN" classCode= "OBS"> <templateId root="216.840.1.017467.10..22.4.2" /> < id nullFlavor="NA" /> <code codeSystem="local" code="CA" displayName= "CALCIUM" /> <statusCode code="completed" /> <effectiveTime value="" /> <value unit="mg/dL" xsi:type="PQ" value="8.5" / > <referenceRange> <observationRange> <text>8.5 -10.1</text> </observationRange> </referenceRange> </ observation> </component> <component> <observation moodCode= "EVN" classCode="OBS"> <templateId root="216.840.1.760201...22.4.2 " /> <id nullFlavor="NA" /> <code codeSystem="local" code="BUN " displayName="BLOOD UREA NITROGEN" /> <statusCode code="completed" /> <effectiveTime value="" /> <value unit="mg/dL" xsi:type="PQ" value="7" /> <referenceRange> < observationRange> <text>7-20</text> </observationRange> </referenceRange> </observation> </component> < component> <observation moodCode="EVN" classCode="OBS"> < templateId root="16.840.1.029243.10.20.22.4.2" /> <id nullFlavor="NA " /> <code codeSystem="local" code="CREAT" displayName="CREATININE" /> <statusCode code="completed" /> <effectiveTime value= "" /> <value unit="mg/dL" xsi:type="PQ" value="0.7" /> <referenceRange> <observationRange> <text>0.6-1.0< /text> </observationRange> </referenceRange> </ observation> </component> <component> <observation moodCode= "EVN" classCode="OBS"> <templateId root="216.840.1.342323.10.22.4.2 " /> <id nullFlavor="NA" /> <code codeSystem="local" code="NA " displayName="SODIUM" /> <statusCode code="completed" /> < effectiveTime value="" /> <value unit="mmol/L" xsi:type="PQ " value="144" /> <referenceRange> <observationRange> <text>135-148</text> </observationRange> </ referenceRange> </observation> </component> <component> <observation moodCode="EVN" classCode="OBS"> <templateId root= "216.840.1.170445.03.15.22.4.2" /> <id nullFlavor="NA" /> < code codeSystem="local" code="CL" displayName="CHLORIDE" /> < statusCode code="completed" /> <effectiveTime value="" /> <value unit="mmol/L" xsi:type="PQ" value="110" /> < referenceRange> <observationRange> <text>98-110</text> </observationRange> </referenceRange> </observation> </component> <component> <observation moodCode="EVN" classCode ="OBS"> <templateId root="216.840.1.791772.10.22.4.2" /> < id nullFlavor="NA" /> <code codeSystem="local" code="AST" displayName= "AST/SGOT" /> <statusCode code="completed" /> <effectiveTime value="" /> <value unit="Units/L" xsi:type="PQ" value="17" /> <referenceRange> <observationRange> <text>10 -37</text> </observationRange> </referenceRange> </ observation> </component> <component> <observation moodCode= "EVN" classCode="OBS"> <templateId root="07.12.840.1.299925.10..4.2 " /> <id nullFlavor="NA" /> <code codeSystem="local" code="ALT " displayName="ALT/SGPT" /> <statusCode code="completed" /> < effectiveTime value="" /> <value unit="Units/L" xsi:type= "PQ" value="21" /> <referenceRange> <observationRange> <text>< 66</text> </observationRange> </ referenceRange> </observation> </component> <component> <observation moodCode="EVN" classCode="OBS"> <templateId root= "07.12.840.1.586282.10.4.2" /> <id nullFlavor="NA" /> < code codeSystem="local" code="CO2" displayName="CARBON DIOXIDE" /> < statusCode code="completed" /> <effectiveTime value="235988776592" /> <value unit="mmol/L" xsi:type="PQ" value="26" /> < referenceRange> <observationRange> <text>21-32</text> </observationRange> </referenceRange> </observation> </component> <component> <observation moodCode="EVN" classCode= "OBS"> <templateId root="07.12.840.1.055456.10.22.4.2" /> < id nullFlavor="NA" /> <code codeSystem="local" code="TP" displayName= "TOTAL PROTEIN" /> <statusCode code="completed" /> < effectiveTime value="" /> <value unit="gm/dL" xsi:type="PQ " value="7.2" /> <referenceRange> <observationRange> <text>6.4-8.2</text> </observationRange> </ referenceRange> </observation> </component> <component> <observation moodCode="EVN" classCode="OBS"> <templateId root= "216.840.1.902227.22.4.2" /> <id nullFlavor="NA" /> < code codeSystem="local" code="ALB" displayName="ALBUMIN" /> < statusCode code="completed" /> <effectiveTime value="" /> <value unit="gm/dL" xsi:type="PQ" value="3.6" /> < referenceRange> <observationRange> <text>3.4-5.0</text> </observationRange> </referenceRange> </observation > </component> <component> <observation moodCode="EVN" classCode="OBS"> <templateId root="216.840.1.762615.10.4.2" /> <id nullFlavor="NA" /> <code codeSystem="local" code="BILTOT" displayName="BILI TOTAL" /> <statusCode code="completed" /> < effectiveTime value="" /> <value unit="mg/dL" xsi:type="PQ " value="0.1" /> <referenceRange> <observationRange> <text>0.0-1.0</text> </observationRange> </ referenceRange> </observation> </component> <component> <observation moodCode="EVN" classCode="OBS"> <templateId root= "2.16.840.1.879909.10.2022.4.2" /> <id nullFlavor="NA" /> < code codeSystem="local" code="ALKP" displayName="ALKALINE PHOSPHATASE TOTAL" /> <statusCode code="completed" /> <effectiveTime value= "617030460029" /> <value unit="IU/L" xsi:type="PQ" value="72" /> <referenceRange> <observationRange> <text>45-117</ text> </observationRange> </referenceRange> </ observation> </component> </organizer> </entry> <entry> <organizer moodCode="EVN" classCode="BATTERY"> <templateId root= "216.840.1.215417.10..22.4.1" /> <id nullFlavor="NA" /> <code codeSystem="local" code="LIP" displayName="LIPASE" /> <statusCode code= "completed" /> <component> <observation moodCode="EVN" classCode= "OBS"> <templateId root="216.840.1.102697.10..22.4.2" /> < id nullFlavor="NA" /> <code codeSystem="local" code="LIP" displayName= "LIPASE" /> <statusCode code="completed" /> <effectiveTime value="148556294358" /> <value unit="Units/L" xsi:type="PQ" value="165 " /> <referenceRange> <observationRange> <text> 73-393</text> </observationRange> </referenceRange> < /observation> </component> </organizer> </entry> <entry> < organizer moodCode="EVN" classCode="BATTERY"> <templateId root= "216.840.1.321046.10..22.4.1" /> <id nullFlavor="NA" /> <code codeSystem="local" code="RETIC" displayName="RETICULOCYTE COUNT" /> < statusCode code="completed" /> <component> <observation moodCode= "EVN" classCode="OBS"> <templateId root="16.840.1.247866...4.2 " /> <id nullFlavor="NA" /> <code codeSystem="local" code="IRF " displayName="IMMATURE FRACTION" /> <statusCode code="completed" /> <effectiveTime value="199821392073" /> <value unit="%" xsi: type="PQ" value="10.1" /> <referenceRange> <observationRange > <text>5-22</text> </observationRange> </ referenceRange> </observation> </component> <component> <observation moodCode="EVN" classCode="OBS"> <templateId root= "16.840.1.213989.03.15.22.4.2" /> <id nullFlavor="NA" /> < code codeSystem="local" code="RBC" displayName="RED BLOOD CELL" /> < statusCode code="completed" /> <effectiveTime value="676165404158" /> <value unit="m/cumm" xsi:type="PQ" value="3.91" /> < interpretationCode codeSystem="local" code="*" /> <referenceRange> <observationRange> <text>4.00-6.00</text> </ observationRange> </referenceRange> </observation> </ component> <component> <observation moodCode="EVN" classCode="OBS"> <templateId root="07.12.840.1.511435.03.15.22.4.2" /> <id nullFlavor="NA" /> <code codeSystem="local" code="RETABS" displayName= "ABSOLUTE RETIC COUNT" /> <statusCode code="completed" /> < effectiveTime value="797684038886" /> <value unit="k/cumm" xsi:type="PQ " value="39.5" /> <referenceRange> <observationRange> <text>20.0-180.0</text> </observationRange> </ referenceRange> </observation> </component> <component> <observation moodCode="EVN" classCode="OBS"> <templateId root= "216.840.1.706121.03.15.22.4.2" /> <id nullFlavor="NA" /> < code codeSystem="local" code="RETIC%" displayName="PERCENT RETIC" /> <statusCode code="completed" /> <effectiveTime value="456934105768" /> <value unit="%" xsi:type="PQ" value="1.0" /> < referenceRange> <observationRange> <text>0.5-3.0</text> </observationRange> </referenceRange> </observation > </component> </organizer> </entry> <entry> <organizer moodCode= "EVN" classCode="BATTERY"> <templateId root="07.12.840.1.894725.10.4.1 " /> <id nullFlavor="NA" /> <code codeSystem="local" code="FETIBC" displayName="IRON W/ BINDING CAPACITY" /> <statusCode code="completed" /> <component> <observation moodCode="EVN" classCode="OBS"> < templateId root="07.12.840.1.816427.1022.4.2" /> <id nullFlavor="NA " /> <code codeSystem="local" code="FESAT" displayName="IRON SATURATION " /> <statusCode code="completed" /> <effectiveTime value= "395848012691" /> <value unit="%SAT" xsi:type="PQ" value="4" /> <interpretationCode codeSystem="local" code="*" /> < referenceRange> <observationRange> <text>11-46</text> </observationRange> </referenceRange> </observation> </component> <component> <observation moodCode="EVN" classCode= "OBS"> <templateId root="216.840.1.751314.10..22.4.2" /> < id nullFlavor="NA" /> <code codeSystem="local" code="TIBC" displayName= "IRON BINDING CAPACITY, TOTAL" /> <statusCode code="completed" /> <effectiveTime value="" /> <value unit="mcg/dL" xsi: type="PQ" value="445" /> <referenceRange> <observationRange > <text>250-450</text> </observationRange> </ referenceRange> </observation> </component> <component> <observation moodCode="EVN" classCode="OBS"> <templateId root= "16.840.1.310577.10...4.2" /> <id nullFlavor="NA" /> < code codeSystem="local" code="IRON" displayName="IRON" /> <statusCode code="completed" /> <effectiveTime value="019573431832" /> < value unit="mcg/dL" xsi:type="PQ" value="17" /> <interpretationCode codeSystem="local" code="*" /> <referenceRange> < observationRange> <text>35-150</text> </observationRange > </referenceRange> </observation> </component> </ organizer> </entry> <entry> <organizer moodCode="EVN" classCode="BATTERY"> <templateId root="216.840.1.853219.10..22.4.1" /> <id nullFlavor= "NA" /> <code codeSystem="local" code="LEANNE" displayName="FERRITIN" /> <statusCode code="completed" /> <component> <observation moodCode= "EVN" classCode="OBS"> <templateId root="07.12.840.1.463844.10..22.4.2 " /> <id nullFlavor="NA" /> <code codeSystem="local" code="LEANNE " displayName="FERRITIN" /> <statusCode code="completed" /> < effectiveTime value="105505081851" /> <value unit="ng/mL" xsi:type="PQ " value="2" /> <interpretationCode codeSystem="local" code="*" /> <referenceRange> <observationRange> <text>8-252</ text> </observationRange> </referenceRange> </ observation> </component> </organizer> </entry> <entry> <organizer moodCode="EVN" classCode="BATTERY"> <templateId root= "840.1.231182.10...4.1" /> <id nullFlavor="NA" /> <code codeSystem="local" code="CBCD" displayName="CBC W/DIFF" /> <statusCode code ="completed" /> <component> <observation moodCode="EVN" classCode= "OBS"> <templateId root="07.12.840.1.686948.10..22.4.2" /> < id nullFlavor="NA" /> <code codeSystem="local" code="CBCCOM" displayName="COMMENT" /> <statusCode code="completed" /> < effectiveTime value="610927123315" /> <value unit="" xsi:type="PQ" value="REVIEWED" /> <referenceRange> <observationRange> <text /> </observationRange> </referenceRange> </observation> </component> <component> <observation moodCode="EVN" classCode="OBS"> <templateId root= "16.840.1.404210.03.15.22.4.2" /> <id nullFlavor="NA" /> < code codeSystem="local" code="EO#" displayName="EOSINOPHIL #" /> < statusCode code="completed" /> <effectiveTime value="086058573151" /> <value unit="k/cumm" xsi:type="PQ" value="0.2" /> < referenceRange> <observationRange> <text>0.1-0.5</text> </observationRange> </referenceRange> </observation > </component> <component> <observation moodCode="EVN" classCode="OBS"> <templateId root="07.12.840.1.470853.03.15.22.4.2" /> <id nullFlavor="NA" /> <code codeSystem="local" code="EO% " displayName="EOSINOPHIL %" /> <statusCode code="completed" /> <effectiveTime value="092371823819" /> <value unit="%" xsi: type="PQ" value="2" /> <referenceRange> <observationRange> <text>2-4</text> </observationRange> </ referenceRange> </observation> </component> <component> <observation moodCode="EVN" classCode="OBS"> <templateId root= "07.12.840.1.037824.10..4.2" /> <id nullFlavor="NA" /> < code codeSystem="local" code="GR#" displayName="GRANULOCYTE #" /> < statusCode code="completed" /> <effectiveTime value="625995577600" /> <value unit="k/cumm" xsi:type="PQ" value="3.0" /> < referenceRange> <observationRange> <text>2.0-9.0</text> </observationRange> </referenceRange> </observation > </component> <component> <observation moodCode="EVN" classCode="OBS"> <templateId root="16.840.1.025490.10.20.22.4.2" /> <id nullFlavor="NA" /> <code codeSystem="local" code="GR% " displayName="GRANULOCYTE %" /> <statusCode code="completed" /> <effectiveTime value="544107155458" /> <value unit="%" xsi: type="PQ" value="45" /> <interpretationCode codeSystem="local" code="* " /> <referenceRange> <observationRange> <text> 50-75</text> </observationRange> </referenceRange> </ observation> </component> <component> <observation moodCode= "EVN" classCode="OBS"> <templateId root="07.12.840.1.932941.03.15.22.4.2 " /> <id nullFlavor="NA" /> <code codeSystem="local" code="LY# " displayName="LYMPHOCYTE #" /> <statusCode code="completed" /> <effectiveTime value="155786593673" /> <value unit="k/cumm" xsi:type ="PQ" value="3.0" /> <referenceRange> <observationRange> <text>1.0-4.0</text> </observationRange> </ referenceRange> </observation> </component> <component> <observation moodCode="EVN" classCode="OBS"> <templateId root= "07.12.840.1.256541.10.20.22.4.2" /> <id nullFlavor="NA" /> < code codeSystem="local" code="LY%" displayName="LYMPHOCYTE %" /> <statusCode code="completed" /> <effectiveTime value="900678980967" /> <value unit="%" xsi:type="PQ" value="45" /> < interpretationCode codeSystem="local" code="*" /> <referenceRange> <observationRange> <text>20-30</text> </ observationRange> </referenceRange> </observation> </ component> <component> <observation moodCode="EVN" classCode="OBS"> <templateId root="2.16.840.1.524472.10..4.2" /> <id nullFlavor="NA" /> <code codeSystem="local" code="MCH" displayName= "MEAN CELL HGB" /> <statusCode code="completed" /> < effectiveTime value="164305530093" /> <value unit="pg" xsi:type="PQ" value="18.9" /> <interpretationCode codeSystem="local" code="*" /> <referenceRange> <observationRange> <text>27.0- 33.0</text> </observationRange> </referenceRange> </ observation> </component> <component> <observation moodCode= "EVN" classCode="OBS"> <templateId root="216.840.1.059578.10.2022.4.2 " /> <id nullFlavor="NA" /> <code codeSystem="local" code= "MCHC" displayName="MEAN CELL HGB CONCENTRATION" /> <statusCode code= "completed" /> <effectiveTime value="196493663955" /> <value unit="g/dL" xsi:type="PQ" value="26.7" /> <interpretationCode codeSystem="local" code="*" /> <referenceRange> < observationRange> <text>32.0-37.0</text> </ observationRange> </referenceRange> </observation> </ component> <component> <observation moodCode="EVN" classCode="OBS"> <templateId root="07.12.840.1.207458.10.20.22.4.2" /> <id nullFlavor="NA" /> <code codeSystem="local" code="MCV" displayName= "MEAN CELL VOLUME" /> <statusCode code="completed" /> < effectiveTime value="139792698535" /> <value unit="fl" xsi:type="PQ" value="70.6" /> <interpretationCode codeSystem="local" code="*" /> <referenceRange> <observationRange> <text>80.0- 100.0</text> </observationRange> </referenceRange> </ observation> </component> <component> <observation moodCode= "EVN" classCode="OBS"> <templateId root="840.1.923692.10.22.4.2 " /> <id nullFlavor="NA" /> <code codeSystem="local" code="MO# " displayName="MONOCYTE #" /> <statusCode code="completed" /> <effectiveTime value="597998798810" /> <value unit="k/cumm" xsi:type= "PQ" value="0.5" /> <referenceRange> <observationRange> <text>0.1-1.0</text> </observationRange> </ referenceRange> </observation> </component> <component> <observation moodCode="EVN" classCode="OBS"> <templateId root= "07.12.840.1.989507.10.20.22.4.2" /> <id nullFlavor="NA" /> < code codeSystem="local" code="MO%" displayName="MONOCYTE %" /> <statusCode code="completed" /> <effectiveTime value="956185437666" /> <value unit="%" xsi:type="PQ" value="7" /> < interpretationCode codeSystem="local" code="*" /> <referenceRange> <observationRange> <text>4-6</text> </ observationRange> </referenceRange> </observation> </ component> <component> <observation moodCode="EVN" classCode="OBS"> <templateId root="2.16.840.1.353814.10.20.22.4.2" /> <id nullFlavor="NA" /> <code codeSystem="local" code="OVAL" displayName= "OVALOCYTES" /> <statusCode code="completed" /> < effectiveTime value="852863874797" /> <value unit="" xsi:type="PQ" value="NOTED" /> <referenceRange> <observationRange> <text /> </observationRange> </referenceRange> </observation> </component> <component> <observation moodCode ="EVN" classCode="OBS"> <templateId root= "2.16.840.1.120171.10.20.22.4.2" /> <id nullFlavor="NA" /> < code codeSystem="local" code="RBC" displayName="RED BLOOD CELL" /> < statusCode code="completed" /> <effectiveTime value="304568097880" /> <value unit="m/cumm" xsi:type="PQ" value="3.44" /> < interpretationCode codeSystem="local" code="*" /> <referenceRange> <observationRange> <text>4.00-6.00</text> </ observationRange> </referenceRange> </observation> </ component> <component> <observation moodCode="EVN" classCode="OBS"> <templateId root="216.840.1.088913.10..22.4.2" /> <id nullFlavor="NA" /> <code codeSystem="local" code="RDW" displayName=" RED CELL DISTRIBUTION WIDTH" /> <statusCode code="completed" /> <effectiveTime value="075526318068" /> <value unit="%" xsi:type= "PQ" value="20.1" /> <interpretationCode codeSystem="local" code="*" / > <referenceRange> <observationRange> <text> 11.0-15.6</text> </observationRange> </referenceRange> </observation> </component> <component> <observation moodCode="EVN" classCode="OBS"> <templateId root= "216.840.1.438333.03.15.22.4.2" /> <id nullFlavor="NA" /> < code codeSystem="local" code="TEAR" displayName="TEAR DROP CELLS" /> < statusCode code="completed" /> <effectiveTime value="697989313781" /> <value unit="" xsi:type="PQ" value="NOTED" /> <referenceRange > <observationRange> <text /> </ observationRange> </referenceRange> </observation> </ component> <component> <observation moodCode="EVN" classCode="OBS"> <templateId root="16.840.1.252788.10.22.4.2" /> <id nullFlavor="NA" /> <code codeSystem="local" code="WBC" displayName= "WHITE BLOOD CELL" /> <statusCode code="completed" /> < effectiveTime value="601803052483" /> <value unit="k/cumm" xsi:type="PQ " value="6.7" /> <referenceRange> <observationRange> <text>5.0-10.0</text> </observationRange> </ referenceRange> </observation> </component> <component> <observation moodCode="EVN" classCode="OBS"> <templateId root= "07.12.840.1.958597.10.20.22.4.2" /> <id nullFlavor="NA" /> < code codeSystem="local" code="HGBT" displayName="HEMOGLOBIN" /> < statusCode code="completed" /> <effectiveTime value="143331129072" /> <value unit="gm/dL" xsi:type="PQ" value="6.5" /> < interpretationCode codeSystem="local" code="*" /> <referenceRange> <observationRange> <text>12.0-16.0</text> </ observationRange> </referenceRange> </observation> </ component> <component> <observation moodCode="EVN" classCode="OBS"> <templateId root="07.12.840.1.709259.10..22.4.2" /> <id nullFlavor="NA" /> <code codeSystem="local" code="HCTT" displayName= "HEMATOCRIT" /> <statusCode code="completed" /> < effectiveTime value="499047951705" /> <value unit="%" xsi:type="PQ " value="24.3" /> <interpretationCode codeSystem="local" code="*" /> <referenceRange> <observationRange> <text>37.0- 47.0</text> </observationRange> </referenceRange> </ observation> </component> <component> <observation moodCode= "EVN" classCode="OBS"> <templateId root="07.12.840.1.598425.10.20.22.4.2 " /> <id nullFlavor="NA" /> <code codeSystem="local" code="PLT " displayName="PLATELET COUNT" /> <statusCode code="completed" /> <effectiveTime value="554464836300" /> <value unit="k/cumm" xsi: type="PQ" value="345" /> <referenceRange> <observationRange > <text>150-400</text> </observationRange> </ referenceRange> </observation> </component> </organizer> </entry > <entry> <organizer moodCode="EVN" classCode="BATTERY"> <templateId root="07.12.840.1.755198.10..22.4.1" /> <id nullFlavor="NA" /> <code codeSystem="local" code="HGB" displayName="HEMOGLOBIN" /> <statusCode code= "completed" /> <component> <observation moodCode="EVN" classCode= "OBS"> <templateId root="07.12.840.1.283043.10..22.4.2" /> < id nullFlavor="NA" /> <code codeSystem="local" code="MCV" displayName= "MEAN CELL VOLUME" /> <statusCode code="completed" /> < effectiveTime value="269806500553" /> <value unit="fl" xsi:type="PQ" value="70.6" /> <interpretationCode codeSystem="local" code="*" /> <referenceRange> <observationRange> <text>80.0- 100.0</text> </observationRange> </referenceRange> </ observation> </component> <component> <observation moodCode= "EVN" classCode="OBS"> <templateId root="840.1.501110.10.20.22.4.2 " /> <id nullFlavor="NA" /> <code codeSystem="local" code= "HGBT" displayName="HEMOGLOBIN" /> <statusCode code="completed" /> <effectiveTime value="606196997227" /> <value unit="gm/dL" xsi: type="PQ" value="6.5" /> <interpretationCode codeSystem="local" code="* " /> <referenceRange> <observationRange> <text> 12.0-16.0</text> </observationRange> </referenceRange> </observation> </component> </organizer> </entry> <entry> < organizer moodCode="EVN" classCode="BATTERY"> <templateId root= "07.12.840.1.764366.10..22.4.1" /> <id nullFlavor="NA" /> <code codeSystem="local" code="HGB" displayName="HEMOGLOBIN" /> <statusCode code= "completed" /> <component> <observation moodCode="EVN" classCode= "OBS"> <templateId root="07.12.840.1.688881.10..22.4.2" /> < id nullFlavor="NA" /> <code codeSystem="local" code="MCV" displayName= "MEAN CELL VOLUME" /> <statusCode code="completed" /> < effectiveTime value="893332601287" /> <value unit="fl" xsi:type="PQ" value="70.5" /> <interpretationCode codeSystem="local" code="*" /> <referenceRange> <observationRange> <text>80.0- 100.0</text> </observationRange> </referenceRange> </ observation> </component> <component> <observation moodCode= "EVN" classCode="OBS"> <templateId root="07.12.840.1.170166.10.20.22.4.2 " /> <id nullFlavor="NA" /> <code codeSystem="local" code= "HGBT" displayName="HEMOGLOBIN" /> <statusCode code="completed" /> <effectiveTime value="115855553939" /> <value unit="gm/dL" xsi: type="PQ" value="6.6" /> <interpretationCode codeSystem="local" code="* " /> <referenceRange> <observationRange> <text> 12.0-16.0</text> </observationRange> </referenceRange> </observation> </component> </organizer> </entry> <entry> < organizer moodCode="EVN" classCode="BATTERY"> <templateId root= "216.840.1.817080.10..22.4.1" /> <id nullFlavor="NA" /> <code codeSystem="local" code="RENAL" displayName="RENAL FUNCTION PANEL" /> < statusCode code="completed" /> <component> <observation moodCode= "EVN" classCode="OBS"> <templateId root="16.840.1.592193.10..22.4.2 " /> <id nullFlavor="NA" /> <code codeSystem="local" code="K" displayName="POTASSIUM" /> <statusCode code="completed" /> < effectiveTime value="202371828779" /> <value unit="mmol/L" xsi:type="PQ " value="3.6" /> <referenceRange> <observationRange> <text>3.5-5.3</text> </observationRange> </ referenceRange> </observation> </component> <component> <observation moodCode="EVN" classCode="OBS"> <templateId root= "16.840.1.668117.10...4.2" /> <id nullFlavor="NA" /> < code codeSystem="local" code="eGFR" displayName="EST GFR (MDRD)" /> < statusCode code="completed" /> <effectiveTime value="806281144051" /> <value unit="mL/min" xsi:type="PQ" value="> 60" /> < referenceRange> <observationRange> <text>> 59</text> </observationRange> </referenceRange> </observation > </component> <component> <observation moodCode="EVN" classCode="OBS"> <templateId root="216.840.1.388611.03.15.22.4.2" /> <id nullFlavor="NA" /> <code codeSystem="local" code="GAP" displayName="ANION GAP" /> <statusCode code="completed" /> < effectiveTime value="960697270155" /> <value unit="mmol/L" xsi:type="PQ " value="4" /> <interpretationCode codeSystem="local" code="*" /> <referenceRange> <observationRange> <text>5-15</ text> </observationRange> </referenceRange> </ observation> </component> <component> <observation moodCode= "EVN" classCode="OBS"> <templateId root="216.840.1.173017.03.15.22.4.2 " /> <id nullFlavor="NA" /> <code codeSystem="local" code= "eCrCl" displayName="EST CrCl (CG)" /> <statusCode code="completed" /> <effectiveTime value="371368355542" /> <value unit="mL/min" xsi:type="PQ" value="> 60" /> <referenceRange> < observationRange> <text>> 59</text> </ observationRange> </referenceRange> </observation> </ component> <component> <observation moodCode="EVN" classCode="OBS"> <templateId root="216.840.1.875035.03.15.22.4.2" /> <id nullFlavor="NA" /> <code codeSystem="local" code="GLU" displayName= "GLUCOSE" /> <statusCode code="completed" /> <effectiveTime value="921604622661" /> <value unit="mg/dL" xsi:type="PQ" value="92" / > <referenceRange> <observationRange> <text>70- 99</text> </observationRange> </referenceRange> </ observation> </component> <component> <observation moodCode= "EVN" classCode="OBS"> <templateId root="2.16.840.1.595008.10..4.2 " /> <id nullFlavor="NA" /> <code codeSystem="local" code="CA " displayName="CALCIUM" /> <statusCode code="completed" /> < effectiveTime value="847008257905" /> <value unit="mg/dL" xsi:type="PQ " value="7.9" /> <interpretationCode codeSystem="local" code="*" /> <referenceRange> <observationRange> <text>8.5- 10.1</text> </observationRange> </referenceRange> </ observation> </component> <component> <observation moodCode= "EVN" classCode="OBS"> <templateId root="216.840.1.903498.03.15.22.4.2 " /> <id nullFlavor="NA" /> <code codeSystem="local" code="BUN " displayName="BLOOD UREA NITROGEN" /> <statusCode code="completed" /> <effectiveTime value="630702514345" /> <value unit="mg/dL" xsi:type="PQ" value="5" /> <interpretationCode codeSystem="local" code= "*" /> <referenceRange> <observationRange> < text>7-20</text> </observationRange> </referenceRange> </observation> </component> <component> <observation moodCode="EVN" classCode="OBS"> <templateId root= "2.16.840.1.190081.10..4.2" /> <id nullFlavor="NA" /> < code codeSystem="local" code="CREAT" displayName="CREATININE" /> < statusCode code="completed" /> <effectiveTime value="267344532111" /> <value unit="mg/dL" xsi:type="PQ" value="0.6" /> < referenceRange> <observationRange> <text>0.6-1.0</text> </observationRange> </referenceRange> </observation > </component> <component> <observation moodCode="EVN" classCode="OBS"> <templateId root="2.840.1.999830.03.15.22.4.2" /> <id nullFlavor="NA" /> <code codeSystem="local" code="NA" displayName="SODIUM" /> <statusCode code="completed" /> < effectiveTime value="162986912500" /> <value unit="mmol/L" xsi:type="PQ " value="139" /> <referenceRange> <observationRange> <text>135-148</text> </observationRange> </ referenceRange> </observation> </component> <component> <observation moodCode="EVN" classCode="OBS"> <templateId root= "16.840.1.875145.03.15.22.4.2" /> <id nullFlavor="NA" /> < code codeSystem="local" code="CL" displayName="CHLORIDE" /> < statusCode code="completed" /> <effectiveTime value="512970509457" /> <value unit="mmol/L" xsi:type="PQ" value="109" /> < referenceRange> <observationRange> <text>98-110</text> </observationRange> </referenceRange> </observation> </component> <component> <observation moodCode="EVN" classCode ="OBS"> <templateId root="16.840.1.916252.10.20.22.4.2" /> < id nullFlavor="NA" /> <code codeSystem="local" code="CO2" displayName= "CARBON DIOXIDE" /> <statusCode code="completed" /> < effectiveTime value="820797170019" /> <value unit="mmol/L" xsi:type="PQ " value="26" /> <referenceRange> <observationRange> <text>21-32</text> </observationRange> </ referenceRange> </observation> </component> <component> <observation moodCode="EVN" classCode="OBS"> <templateId root= "07.12.840.1.568749.10..22.4.2" /> <id nullFlavor="NA" /> < code codeSystem="local" code="ALB" displayName="ALBUMIN" /> < statusCode code="completed" /> <effectiveTime value="015216258183" /> <value unit="gm/dL" xsi:type="PQ" value="3.0" /> < interpretationCode codeSystem="local" code="*" /> <referenceRange> <observationRange> <text>3.4-5.0</text> </ observationRange> </referenceRange> </observation> </ component> <component> <observation moodCode="EVN" classCode="OBS"> <templateId root="07.12.840.1.419035.10.20.22.4.2" /> <id nullFlavor="NA" /> <code codeSystem="local" code="PHOS" displayName= "PHOSPHORUS" /> <statusCode code="completed" /> < effectiveTime value="[id number]" /> <value unit="mg/dL" xsi:type="PQ " value="3.7" /> <referenceRange> <observationRange> <text>2.5-4.9</text> </observationRange> </ referenceRange> </observation> </component> </organizer> </entry > <entry> <organizer moodCode="EVN" classCode="BATTERY"> <templateId root="840.1.287884.10.20.22.4.1" /> <id nullFlavor="NA" /> <code codeSystem="local" code="MAG" displayName="MAGNESIUM" /> <statusCode code= "completed" /> <component> <observation moodCode="EVN" classCode= "OBS"> <templateId root="07.12.840.1.281280.10..22.4.2" /> < id nullFlavor="NA" /> <code codeSystem="local" code="MAG" displayName= "MAGNESIUM" /> <statusCode code="completed" /> <effectiveTime value="[id number]" /> <value unit="mg/dL" xsi:type="PQ" value="1.7" / > <interpretationCode codeSystem="local" code="*" /> < referenceRange> <observationRange> <text>1.8-2.4</text> </observationRange> </referenceRange> </observation > </component> </organizer> </entry> <entry> <organizer moodCode= "EVN" classCode="BATTERY"> <templateId root="07.12.840.1.888765.10.20.22.4.1 " /> <id nullFlavor="NA" /> <code codeSystem="local" code="HGB" displayName="HEMOGLOBIN" /> <statusCode code="completed" /> <component > <observation moodCode="EVN" classCode="OBS"> <templateId root= "07.12.840.1.875296.1022.4.2" /> <id nullFlavor="NA" /> < code codeSystem="local" code="MCV" displayName="MEAN CELL VOLUME" /> < statusCode code="completed" /> <effectiveTime value="[id number]" /> <value unit="fl" xsi:type="PQ" value="72.1" /> < interpretationCode codeSystem="local" code="*" /> <referenceRange> <observationRange> <text>80.0-100.0</text> </ observationRange> </referenceRange> </observation> </ component> <component> <observation moodCode="EVN" classCode="OBS"> <templateId root="07.12.840.1.207661.03.15.22.4.2" /> <id nullFlavor="NA" /> <code codeSystem="local" code="HGBT" displayName= "HEMOGLOBIN" /> <statusCode code="completed" /> < effectiveTime value="406082847550" /> <value unit="gm/dL" xsi:type="PQ " value="7.9" /> <interpretationCode codeSystem="local" code="*" /> <referenceRange> <observationRange> <text>12.0- 16.0</text> </observationRange> </referenceRange> </ observation> </component> </organizer> </entry> <entry> <organizer moodCode="EVN" classCode="BATTERY"> <templateId root= "07.12.840.1.468679.10.20.22.4.1" /> <id nullFlavor="NA" /> <code codeSystem="local" code="HGB" displayName="HEMOGLOBIN" /> <statusCode code= "completed" /> <component> <observation moodCode="EVN" classCode= "OBS"> <templateId root="07.12.840.1.964411.10..4.2" /> < id nullFlavor="NA" /> <code codeSystem="local" code="MCV" displayName= "MEAN CELL VOLUME" /> <statusCode code="completed" /> < effectiveTime value="" /> <value unit="fl" xsi:type="PQ" value="70.0" /> <interpretationCode codeSystem="local" code="*" /> <referenceRange> <observationRange> <text>80.0- 100.0</text> </observationRange> </referenceRange> </ observation> </component> <component> <observation moodCode= "EVN" classCode="OBS"> <templateId root="840.1.986650.03.15.22.4.2 " /> <id nullFlavor="NA" /> <code codeSystem="local" code= "HGBT" displayName="HEMOGLOBIN" /> <statusCode code="completed" /> <effectiveTime value="" /> <value unit="gm/dL" xsi: type="PQ" value="8.1" /> <interpretationCode codeSystem="local" code="* " /> <referenceRange> <observationRange> <text> 12.0-16.0</text> </observationRange> </referenceRange> </observation> </component> </organizer> </entry> <entry> < organizer moodCode="EVN" classCode="BATTERY"> <templateId root= "07.12.840.1.098906.10.22.4.1" /> <id nullFlavor="NA" /> <code codeSystem="local" code="CBCD" displayName="CBC W/DIFF" /> <statusCode code ="completed" /> <component> <observation moodCode="EVN" classCode= "OBS"> <templateId root="216.840.1.999208.10.4.2" /> < id nullFlavor="NA" /> <code codeSystem="local" code="BA#" displayName= "BASOPHIL #" /> <statusCode code="completed" /> < effectiveTime value="" /> <value unit="k/cumm" xsi:type="PQ " value="0.0" /> <referenceRange> <observationRange> <text>0.0-0.2</text> </observationRange> </ referenceRange> </observation> </component> <component> <observation moodCode="EVN" classCode="OBS"> <templateId root= "07.12.840.1.004902.03.15.224.2" /> <id nullFlavor="NA" /> < code codeSystem="local" code="BA%" displayName="BASOPHIL %" /> <statusCode code="completed" /> <effectiveTime value="" /> <value unit="%" xsi:type="PQ" value="1" /> < referenceRange> <observationRange> <text>0-1</text> </observationRange> </referenceRange> </observation> </component> <component> <observation moodCode="EVN" classCode= "OBS"> <templateId root="07.12.840.1.600439.03.15.22.4.2" /> < id nullFlavor="NA" /> <code codeSystem="local" code="CBCCOM" displayName="COMMENT" /> <statusCode code="completed" /> < effectiveTime value="" /> <value unit="" xsi:type="PQ" value="REVIEWED" /> <referenceRange> <observationRange> <text /> </observationRange> </referenceRange> </observation> </component> <component> <observation moodCode="EVN" classCode="OBS"> <templateId root= "07.12.840.1.147575.10.20.22.4.2" /> <id nullFlavor="NA" /> < code codeSystem="local" code="EO#" displayName="EOSINOPHIL #" /> < statusCode code="completed" /> <effectiveTime value="[id number]" /> <value unit="k/cumm" xsi:type="PQ" value="0.2" /> < referenceRange> <observationRange> <text>0.1-0.5</text> </observationRange> </referenceRange> </observation > </component> <component> <observation moodCode="EVN" classCode="OBS"> <templateId root="840.1.495357.10.22.4.2" /> <id nullFlavor="NA" /> <code codeSystem="local" code="EO% " displayName="EOSINOPHIL %" /> <statusCode code="completed" /> <effectiveTime value="037035409807" /> <value unit="%" xsi: type="PQ" value="2" /> <referenceRange> <observationRange> <text>2-4</text> </observationRange> </ referenceRange> </observation> </component> <component> <observation moodCode="EVN" classCode="OBS"> <templateId root= "07.12.840.1.919977.10.20.22.4.2" /> <id nullFlavor="NA" /> < code codeSystem="local" code="GR#" displayName="GRANULOCYTE #" /> < statusCode code="completed" /> <effectiveTime value="841687746000" /> <value unit="k/cumm" xsi:type="PQ" value="4.2" /> < referenceRange> <observationRange> <text>2.0-9.0</text> </observationRange> </referenceRange> </observation > </component> <component> <observation moodCode="EVN" classCode="OBS"> <templateId root="216.840.1.729104.10.20.22.4.2" /> <id nullFlavor="NA" /> <code codeSystem="local" code="GR% " displayName="GRANULOCYTE %" /> <statusCode code="completed" /> <effectiveTime value="" /> <value unit="%" xsi: type="PQ" value="58" /> <referenceRange> <observationRange> <text>50-75</text> </observationRange> </ referenceRange> </observation> </component> <component> <observation moodCode="EVN" classCode="OBS"> <templateId root= "16.840.1.302891.10.20.22.4.2" /> <id nullFlavor="NA" /> < code codeSystem="local" code="LY#" displayName="LYMPHOCYTE #" /> < statusCode code="completed" /> <effectiveTime value="012515637238" /> <value unit="k/cumm" xsi:type="PQ" value="2.3" /> < referenceRange> <observationRange> <text>1.0-4.0</text> </observationRange> </referenceRange> </observation > </component> <component> <observation moodCode="EVN" classCode="OBS"> <templateId root="840.1.892287.10.20.22.4.2" /> <id nullFlavor="NA" /> <code codeSystem="local" code="LY% " displayName="LYMPHOCYTE %" /> <statusCode code="completed" /> <effectiveTime value="" /> <value unit="%" xsi: type="PQ" value="31" /> <interpretationCode codeSystem="local" code="* " /> <referenceRange> <observationRange> <text> 20-30</text> </observationRange> </referenceRange> </ observation> </component> <component> <observation moodCode= "EVN" classCode="OBS"> <templateId root="840.1.502699.10.2022.4.2 " /> <id nullFlavor="NA" /> <code codeSystem="local" code="MCH " displayName="MEAN CELL HGB" /> <statusCode code="completed" /> <effectiveTime value="" /> <value unit="pg" xsi:type= "PQ" value="20.3" /> <interpretationCode codeSystem="local" code="*" / > <referenceRange> <observationRange> <text> 27.0-33.0</text> </observationRange> </referenceRange> </observation> </component> <component> <observation moodCode="EVN" classCode="OBS"> <templateId root= "840.1.701319.10.20.22.4.2" /> <id nullFlavor="NA" /> < code codeSystem="local" code="MCHC" displayName="MEAN CELL HGB CONCENTRATION" / > <statusCode code="completed" /> <effectiveTime value= "385072439243" /> <value unit="g/dL" xsi:type="PQ" value="28.9" /> <interpretationCode codeSystem="local" code="*" /> < referenceRange> <observationRange> <text>32.0-37.0</text > </observationRange> </referenceRange> </observation > </component> <component> <observation moodCode="EVN" classCode="OBS"> <templateId root="216.840.1.740208.03.15.22.4.2" /> <id nullFlavor="NA" /> <code codeSystem="local" code="MCV" displayName="MEAN CELL VOLUME" /> <statusCode code="completed" /> <effectiveTime value="" /> <value unit="fl" xsi:type= "PQ" value="70.3" /> <interpretationCode codeSystem="local" code="*" / > <referenceRange> <observationRange> <text> 80.0-100.0</text> </observationRange> </referenceRange> </observation> </component> <component> <observation moodCode="EVN" classCode="OBS"> <templateId root= "07.12.840.1.475158.03.15.22.4.2" /> <id nullFlavor="NA" /> < code codeSystem="local" code="MO#" displayName="MONOCYTE #" /> < statusCode code="completed" /> <effectiveTime value="839646534883" /> <value unit="k/cumm" xsi:type="PQ" value="0.5" /> < referenceRange> <observationRange> <text>0.1-1.0</text> </observationRange> </referenceRange> </observation > </component> <component> <observation moodCode="EVN" classCode="OBS"> <templateId root="216.840.1.861289.03.15.22.4.2" /> <id nullFlavor="NA" /> <code codeSystem="local" code="MO% " displayName="MONOCYTE %" /> <statusCode code="completed" /> <effectiveTime value="" /> <value unit="%" xsi: type="PQ" value="7" /> <interpretationCode codeSystem="local" code="*" /> <referenceRange> <observationRange> <text>4- 6</text> </observationRange> </referenceRange> </ observation> </component> <component> <observation moodCode= "EVN" classCode="OBS"> <templateId root="2.16.840.1.353357...4.2 " /> <id nullFlavor="NA" /> <code codeSystem="local" code= "OVAL" displayName="OVALOCYTES" /> <statusCode code="completed" /> <effectiveTime value="" /> <value unit="" xsi:type= "PQ" value="NOTED" /> <referenceRange> <observationRange> <text /> </observationRange> </referenceRange> </observation> </component> <component> <observation moodCode="EVN" classCode="OBS"> <templateId root= "2.16.840.1.852131.03.15.22.4.2" /> <id nullFlavor="NA" /> < code codeSystem="local" code="RBC" displayName="RED BLOOD CELL" /> < statusCode code="completed" /> <effectiveTime value="" /> <value unit="m/cumm" xsi:type="PQ" value="3.94" /> < interpretationCode codeSystem="local" code="*" /> <referenceRange> <observationRange> <text>4.00-6.00</text> </ observationRange> </referenceRange> </observation> </ component> <component> <observation moodCode="EVN" classCode="OBS"> <templateId root="16.840.1.805167.03.15.22.4.2" /> <id nullFlavor="NA" /> <code codeSystem="local" code="RDW" displayName=" RED CELL DISTRIBUTION WIDTH" /> <statusCode code="completed" /> <effectiveTime value="" /> <value unit="%" xsi:type= "PQ" value="20.4" /> <interpretationCode codeSystem="local" code="*" / > <referenceRange> <observationRange> <text> 11.0-15.6</text> </observationRange> </referenceRange> </observation> </component> <component> <observation moodCode="EVN" classCode="OBS"> <templateId root= "07.12.840.1.608751.03.15.22.4.2" /> <id nullFlavor="NA" /> < code codeSystem="local" code="TEAR" displayName="TEAR DROP CELLS" /> < statusCode code="completed" /> <effectiveTime value="" /> <value unit="" xsi:type="PQ" value="NOTED" /> <referenceRange > <observationRange> <text /> </ observationRange> </referenceRange> </observation> </ component> <component> <observation moodCode="EVN" classCode="OBS"> <templateId root="07.12.840.1.169384.03.15.22.4.2" /> <id nullFlavor="NA" /> <code codeSystem="local" code="WBC" displayName= "WHITE BLOOD CELL" /> <statusCode code="completed" /> < effectiveTime value="" /> <value unit="k/cumm" xsi:type="PQ " value="7.2" /> <referenceRange> <observationRange> <text>5.0-10.0</text> </observationRange> </ referenceRange> </observation> </component> <component> <observation moodCode="EVN" classCode="OBS"> <templateId root= "216.840.1.686778.03.15.22.4.2" /> <id nullFlavor="NA" /> < code codeSystem="local" code="HGBT" displayName="HEMOGLOBIN" /> < statusCode code="completed" /> <effectiveTime value="" /> <value unit="gm/dL" xsi:type="PQ" value="8.0" /> < interpretationCode codeSystem="local" code="*" /> <referenceRange> <observationRange> <text>12.0-16.0</text> </ observationRange> </referenceRange> </observation> </ component> <component> <observation moodCode="EVN" classCode="OBS"> <templateId root="216.840.1.766400.03.15.224.2" /> <id nullFlavor="NA" /> <code codeSystem="local" code="HCTT" displayName= "HEMATOCRIT" /> <statusCode code="completed" /> < effectiveTime value="" /> <value unit="%" xsi:type="PQ " value="27.7" /> <interpretationCode codeSystem="local" code="*" /> <referenceRange> <observationRange> <text>37.0- 47.0</text> </observationRange> </referenceRange> </ observation> </component> <component> <observation moodCode= "EVN" classCode="OBS"> <templateId root="216.840.1.794962.03.15.22.4.2 " /> <id nullFlavor="NA" /> <code codeSystem="local" code="PLT " displayName="PLATELET COUNT" /> <statusCode code="completed" /> <effectiveTime value="734182374593" /> <value unit="k/cumm" xsi: type="PQ" value="319" /> <referenceRange> <observationRange > <text>150-400</text> </observationRange> </ referenceRange> </observation> </component> </organizer> </entry > <entry> <organizer moodCode="EVN" classCode="BATTERY"> <templateId root="07.12.840.1.612863.03.15.22.4.1" /> <id nullFlavor="NA" /> <code codeSystem="local" code="METABC" displayName="METABOLIC PANEL, COMPREHN" /> <statusCode code="completed" /> <component> <observation moodCode= "EVN" classCode="OBS"> <templateId root="07.12.840.1.937624.03.15.22.4.2 " /> <id nullFlavor="NA" /> <code codeSystem="local" code="K" displayName="POTASSIUM" /> <statusCode code="completed" /> < effectiveTime value="817333588271" /> <value unit="mmol/L" xsi:type="PQ " value="4.0" /> <referenceRange> <observationRange> <text>3.5-5.3</text> </observationRange> </ referenceRange> </observation> </component> <component> <observation moodCode="EVN" classCode="OBS"> <templateId root= "07.12.840.1.677701.03.15.22.4.2" /> <id nullFlavor="NA" /> < code codeSystem="local" code="eGFR" displayName="EST GFR (MDRD)" /> < statusCode code="completed" /> <effectiveTime value="" /> <value unit="mL/min" xsi:type="PQ" value="> 60" /> < referenceRange> <observationRange> <text>> 59</text> </observationRange> </referenceRange> </observation > </component> <component> <observation moodCode="EVN" classCode="OBS"> <templateId root="216.840.1.862281.10..22.4.2" /> <id nullFlavor="NA" /> <code codeSystem="local" code="GAP" displayName="ANION GAP" /> <statusCode code="completed" /> < effectiveTime value="" /> <value unit="mmol/L" xsi:type="PQ " value="2" /> <interpretationCode codeSystem="local" code="*" /> <referenceRange> <observationRange> <text>5-15</ text> </observationRange> </referenceRange> </ observation> </component> <component> <observation moodCode= "EVN" classCode="OBS"> <templateId root="2.16.840.1.413745.10..22.4.2 " /> <id nullFlavor="NA" /> <code codeSystem="local" code= "eCrCl" displayName="EST CrCl (CG)" /> <statusCode code="completed" /> <effectiveTime value="" /> <value unit="mL/min" xsi:type="PQ" value="> 60" /> <referenceRange> < observationRange> <text>> 59</text> </ observationRange> </referenceRange> </observation> </ component> <component> <observation moodCode="EVN" classCode="OBS"> <templateId root="16.840.1.877711.10.20.22.4.2" /> <id nullFlavor="NA" /> <code codeSystem="local" code="GLU" displayName= "GLUCOSE" /> <statusCode code="completed" /> <effectiveTime value="" /> <value unit="mg/dL" xsi:type="PQ" value="87" / > <referenceRange> <observationRange> <text>70- 99</text> </observationRange> </referenceRange> </ observation> </component> <component> <observation moodCode= "EVN" classCode="OBS"> <templateId root="07.12.840.1.158766.10.22.4.2 " /> <id nullFlavor="NA" /> <code codeSystem="local" code="CA " displayName="CALCIUM" /> <statusCode code="completed" /> < effectiveTime value="" /> <value unit="mg/dL" xsi:type="PQ " value="8.3" /> <interpretationCode codeSystem="local" code="*" /> <referenceRange> <observationRange> <text>8.5- 10.1</text> </observationRange> </referenceRange> </ observation> </component> <component> <observation moodCode= "EVN" classCode="OBS"> <templateId root="07.12.840.1.874352.10.2022.4.2 " /> <id nullFlavor="NA" /> <code codeSystem="local" code="BUN " displayName="BLOOD UREA NITROGEN" /> <statusCode code="completed" /> <effectiveTime value="" /> <value unit="mg/dL" xsi:type="PQ" value="2" /> <interpretationCode codeSystem="local" code= "*" /> <referenceRange> <observationRange> < text>7-20</text> </observationRange> </referenceRange> </observation> </component> <component> <observation moodCode="EVN" classCode="OBS"> <templateId root= "16.840.1.536778.10...4.2" /> <id nullFlavor="NA" /> < code codeSystem="local" code="CREAT" displayName="CREATININE" /> < statusCode code="completed" /> <effectiveTime value="" /> <value unit="mg/dL" xsi:type="PQ" value="0.6" /> < referenceRange> <observationRange> <text>0.6-1.0</text> </observationRange> </referenceRange> </observation > </component> <component> <observation moodCode="EVN" classCode="OBS"> <templateId root="07.12.840.1.520117.03.15.22.4.2" /> <id nullFlavor="NA" /> <code codeSystem="local" code="NA" displayName="SODIUM" /> <statusCode code="completed" /> < effectiveTime value="" /> <value unit="mmol/L" xsi:type="PQ " value="137" /> <referenceRange> <observationRange> <text>135-148</text> </observationRange> </ referenceRange> </observation> </component> <component> <observation moodCode="EVN" classCode="OBS"> <templateId root= "07.12.840.1.992583.10..4.2" /> <id nullFlavor="NA" /> < code codeSystem="local" code="CL" displayName="CHLORIDE" /> < statusCode code="completed" /> <effectiveTime value="" /> <value unit="mmol/L" xsi:type="PQ" value="111" /> < interpretationCode codeSystem="local" code="*" /> <referenceRange> <observationRange> <text>98-110</text> </ observationRange> </referenceRange> </observation> </ component> <component> <observation moodCode="EVN" classCode="OBS"> <templateId root="07.12.840.1.071763.10.22.4.2" /> <id nullFlavor="NA" /> <code codeSystem="local" code="AST" displayName="AST /SGOT" /> <statusCode code="completed" /> <effectiveTime value ="" /> <value unit="Units/L" xsi:type="PQ" value="23" /> <referenceRange> <observationRange> <text>10-37< /text> </observationRange> </referenceRange> </ observation> </component> <component> <observation moodCode= "EVN" classCode="OBS"> <templateId root="07.12.840.1.907681.10...4.2 " /> <id nullFlavor="NA" /> <code codeSystem="local" code="ALT " displayName="ALT/SGPT" /> <statusCode code="completed" /> < effectiveTime value="" /> <value unit="Units/L" xsi:type= "PQ" value="18" /> <referenceRange> <observationRange> <text>< 66</text> </observationRange> </ referenceRange> </observation> </component> <component> <observation moodCode="EVN" classCode="OBS"> <templateId root= "07.12.840.1.424998.03.15.224.2" /> <id nullFlavor="NA" /> < code codeSystem="local" code="CO2" displayName="CARBON DIOXIDE" /> < statusCode code="completed" /> <effectiveTime value="" /> <value unit="mmol/L" xsi:type="PQ" value="24" /> < referenceRange> <observationRange> <text>21-32</text> </observationRange> </referenceRange> </observation> </component> <component> <observation moodCode="EVN" classCode= "OBS"> <templateId root="2.16.840.1.310767.03.15.224.2" /> < id nullFlavor="NA" /> <code codeSystem="local" code="TP" displayName= "TOTAL PROTEIN" /> <statusCode code="completed" /> < effectiveTime value="" /> <value unit="gm/dL" xsi:type="PQ " value="5.8" /> <interpretationCode codeSystem="local" code="*" /> <referenceRange> <observationRange> <text>6.4-8.2 </text> </observationRange> </referenceRange> </ observation> </component> <component> <observation moodCode= "EVN" classCode="OBS"> <templateId root="216.840.1.404599.10.4.2 " /> <id nullFlavor="NA" /> <code codeSystem="local" code="ALB " displayName="ALBUMIN" /> <statusCode code="completed" /> < effectiveTime value="" /> <value unit="gm/dL" xsi:type="PQ " value="2.8" /> <interpretationCode codeSystem="local" code="*" /> <referenceRange> <observationRange> <text>3.4-5.0 </text> </observationRange> </referenceRange> </ observation> </component> <component> <observation moodCode= "EVN" classCode="OBS"> <templateId root="216.840.1.120322.1022.4.2 " /> <id nullFlavor="NA" /> <code codeSystem="local" code= "BILTOT" displayName="BILI TOTAL" /> <statusCode code="completed" /> <effectiveTime value="" /> <value unit="mg/dL" xsi: type="PQ" value="0.1" /> <referenceRange> <observationRange > <text>0.0-1.0</text> </observationRange> </ referenceRange> </observation> </component> <component> <observation moodCode="EVN" classCode="OBS"> <templateId root= "16.840.1.515626.03.15.22.4.2" /> <id nullFlavor="NA" /> < code codeSystem="local" code="ALKP" displayName="ALKALINE PHOSPHATASE TOTAL" /> <statusCode code="completed" /> <effectiveTime value= "924944552763" /> <value unit="IU/L" xsi:type="PQ" value="61" /> <referenceRange> <observationRange> <text>45-117</ text> </observationRange> </referenceRange> </ observation> </component> </organizer> </entry> <entry> <organizer moodCode="EVN" classCode="BATTERY"> <templateId root= "216.840.1.881817.10...4.1" /> <id nullFlavor="NA" /> <code codeSystem="local" code="HELICOSCR" displayName="AB H.PYLORI SCREEN" /> < statusCode code="completed" /> <component> <observation moodCode= "EVN" classCode="OBS"> <templateId root="216.840.1.510446.10..22.4.2 " /> <id nullFlavor="NA" /> <code codeSystem="local" code= "HELICOSCR" displayName="AB H.PYLORI SCREEN" /> <statusCode code= "completed" /> <effectiveTime value="746437687266" /> <value unit="" xsi:type="PQ" value="NEGATIVE" /> <referenceRange> < observationRange> <text>NEGATIVE</text> </ observationRange> </referenceRange> </observation> </ component> </organizer> </entry> <entry> <organizer moodCode="EVN" classCode="BATTERY"> <templateId root="2.16.840.1.580802.10..22.4.1" /> <id nullFlavor="NA" /> <code codeSystem="local" code="LIP" displayName ="LIPASE" /> <statusCode code="completed" /> <component> < observation moodCode="EVN" classCode="OBS"> <templateId root= "2.16.840.1.996309.10..22.4.2" /> <id nullFlavor="NA" /> < code codeSystem="local" code="LIP" displayName="LIPASE" /> <statusCode code="completed" /> <effectiveTime value="053298607641" /> < value unit="Units/L" xsi:type="PQ" value="86" /> <referenceRange> <observationRange> <text>73-393</text> </ observationRange> </referenceRange> </observation> </ component> </organizer> </entry> <entry> <organizer moodCode="EVN" classCode="BATTERY"> <templateId root="216.840.1.107505.10..22.4.1" /> <id nullFlavor="NA" /> <code codeSystem="local" code="CBCD" displayName="CBC W/DIFF" /> <statusCode code="completed" /> <component > <observation moodCode="EVN" classCode="OBS"> <templateId root= "07.12.840.1.726041.03.15.22.4.2" /> <id nullFlavor="NA" /> < code codeSystem="local" code="EO#" displayName="EOSINOPHIL #" /> < statusCode code="completed" /> <effectiveTime value="883270940842" /> <value unit="k/cumm" xsi:type="PQ" value="0.2" /> < referenceRange> <observationRange> <text>0.1-0.5</text> </observationRange> </referenceRange> </observation > </component> <component> <observation moodCode="EVN" classCode="OBS"> <templateId root="840.1.632003.03.15.22.4.2" /> <id nullFlavor="NA" /> <code codeSystem="local" code="EO% " displayName="EOSINOPHIL %" /> <statusCode code="completed" /> <effectiveTime value="316437278631" /> <value unit="%" xsi: type="PQ" value="2" /> <referenceRange> <observationRange> <text>2-4</text> </observationRange> </ referenceRange> </observation> </component> <component> <observation moodCode="EVN" classCode="OBS"> <templateId root= "07.12.840.1.594981...4.2" /> <id nullFlavor="NA" /> < code codeSystem="local" code="GR#" displayName="GRANULOCYTE #" /> < statusCode code="completed" /> <effectiveTime value="244096017687" /> <value unit="k/cumm" xsi:type="PQ" value="5.9" /> < referenceRange> <observationRange> <text>2.0-9.0</text> </observationRange> </referenceRange> </observation > </component> <component> <observation moodCode="EVN" classCode="OBS"> <templateId root="216.840.1.465108.10.20.22.4.2" /> <id nullFlavor="NA" /> <code codeSystem="local" code="GR% " displayName="GRANULOCYTE %" /> <statusCode code="completed" /> <effectiveTime value="" /> <value unit="%" xsi: type="PQ" value="65" /> <referenceRange> <observationRange> <text>50-75</text> </observationRange> </ referenceRange> </observation> </component> <component> <observation moodCode="EVN" classCode="OBS"> <templateId root= "16.840.1.844433.10.20.22.4.2" /> <id nullFlavor="NA" /> < code codeSystem="local" code="LY#" displayName="LYMPHOCYTE #" /> < statusCode code="completed" /> <effectiveTime value="[id number]" /> <value unit="k/cumm" xsi:type="PQ" value="2.2" /> < referenceRange> <observationRange> <text>1.0-4.0</text> </observationRange> </referenceRange> </observation > </component> <component> <observation moodCode="EVN" classCode="OBS"> <templateId root="07.12.840.1.371534.10.20.22.4.2" /> <id nullFlavor="NA" /> <code codeSystem="local" code="LY% " displayName="LYMPHOCYTE %" /> <statusCode code="completed" /> <effectiveTime value="" /> <value unit="%" xsi: type="PQ" value="24" /> <referenceRange> <observationRange> <text>20-30</text> </observationRange> </ referenceRange> </observation> </component> <component> <observation moodCode="EVN" classCode="OBS"> <templateId root= "07.12.840.1.872228.10.20.22.4.2" /> <id nullFlavor="NA" /> < code codeSystem="local" code="MCH" displayName="MEAN CELL HGB" /> < statusCode code="completed" /> <effectiveTime value="" /> <value unit="pg" xsi:type="PQ" value="20.2" /> < interpretationCode codeSystem="local" code="*" /> <referenceRange> <observationRange> <text>27.0-33.0</text> </ observationRange> </referenceRange> </observation> </ component> <component> <observation moodCode="EVN" classCode="OBS"> <templateId root="07.12.840.1.439863.10.20.22.4.2" /> <id nullFlavor="NA" /> <code codeSystem="local" code="MCHC" displayName= "MEAN CELL HGB CONCENTRATION" /> <statusCode code="completed" /> <effectiveTime value="" /> <value unit="g/dL" xsi:type= "PQ" value="28.2" /> <interpretationCode codeSystem="local" code="*" / > <referenceRange> <observationRange> <text> 32.0-37.0</text> </observationRange> </referenceRange> </observation> </component> <component> <observation moodCode="EVN" classCode="OBS"> <templateId root= "216.840.1.976505.10.2022.4.2" /> <id nullFlavor="NA" /> < code codeSystem="local" code="MCV" displayName="MEAN CELL VOLUME" /> < statusCode code="completed" /> <effectiveTime value="" /> <value unit="fl" xsi:type="PQ" value="71.5" /> < interpretationCode codeSystem="local" code="*" /> <referenceRange> <observationRange> <text>80.0-100.0</text> </ observationRange> </referenceRange> </observation> </ component> <component> <observation moodCode="EVN" classCode="OBS"> <templateId root="840.1.657638.03.15.22.4.2" /> <id nullFlavor="NA" /> <code codeSystem="local" code="MO#" displayName= "MONOCYTE #" /> <statusCode code="completed" /> < effectiveTime value="351822034804" /> <value unit="k/cumm" xsi:type="PQ " value="0.8" /> <referenceRange> <observationRange> <text>0.1-1.0</text> </observationRange> </ referenceRange> </observation> </component> <component> <observation moodCode="EVN" classCode="OBS"> <templateId root= "16.840.1.655452.10.2022.4.2" /> <id nullFlavor="NA" /> < code codeSystem="local" code="MO%" displayName="MONOCYTE %" /> <statusCode code="completed" /> <effectiveTime value="" /> <value unit="%" xsi:type="PQ" value="9" /> < interpretationCode codeSystem="local" code="*" /> <referenceRange> <observationRange> <text>4-6</text> </ observationRange> </referenceRange> </observation> </ component> <component> <observation moodCode="EVN" classCode="OBS"> <templateId root="2.16.840.1.222232.10..4.2" /> <id nullFlavor="NA" /> <code codeSystem="local" code="OVAL" displayName= "OVALOCYTES" /> <statusCode code="completed" /> < effectiveTime value="" /> <value unit="" xsi:type="PQ" value="NOTED" /> <referenceRange> <observationRange> <text /> </observationRange> </referenceRange> </observation> </component> <component> <observation moodCode ="EVN" classCode="OBS"> <templateId root= "2.16.840.1.438964.10.22.4.2" /> <id nullFlavor="NA" /> < code codeSystem="local" code="RBC" displayName="RED BLOOD CELL" /> < statusCode code="completed" /> <effectiveTime value="" /> <value unit="m/cumm" xsi:type="PQ" value="4.11" /> < referenceRange> <observationRange> <text>4.00-6.00</text > </observationRange> </referenceRange> </observation > </component> <component> <observation moodCode="EVN" classCode="OBS"> <templateId root="16.840.1.015504.10.20.22.4.2" /> <id nullFlavor="NA" /> <code codeSystem="local" code="RDW" displayName="RED CELL DISTRIBUTION WIDTH" /> <statusCode code= "completed" /> <effectiveTime value="" /> <value unit="%" xsi:type="PQ" value="22.3" /> <interpretationCode codeSystem="local" code="*" /> <referenceRange> < observationRange> <text>11.0-15.6</text> </ observationRange> </referenceRange> </observation> </ component> <component> <observation moodCode="EVN" classCode="OBS"> <templateId root="07.12.840.1.324662.22.4.2" /> <id nullFlavor="NA" /> <code codeSystem="local" code="WBC" displayName= "WHITE BLOOD CELL" /> <statusCode code="completed" /> < effectiveTime value="" /> <value unit="k/cumm" xsi:type="PQ " value="9.1" /> <referenceRange> <observationRange> <text>5.0-10.0</text> </observationRange> </ referenceRange> </observation> </component> <component> <observation moodCode="EVN" classCode="OBS"> <templateId root= "16.840.1.611878.10.2022.4.2" /> <id nullFlavor="NA" /> < code codeSystem="local" code="HGBT" displayName="HEMOGLOBIN" /> < statusCode code="completed" /> <effectiveTime value="" /> <value unit="gm/dL" xsi:type="PQ" value="8.3" /> < interpretationCode codeSystem="local" code="*" /> <referenceRange> <observationRange> <text>12.0-16.0</text> </ observationRange> </referenceRange> </observation> </ component> <component> <observation moodCode="EVN" classCode="OBS"> <templateId root="216.840.1.097382.03.15.22.4.2" /> <id nullFlavor="NA" /> <code codeSystem="local" code="HCTT" displayName= "HEMATOCRIT" /> <statusCode code="completed" /> < effectiveTime value="380451870192" /> <value unit="%" xsi:type="PQ " value="29.4" /> <interpretationCode codeSystem="local" code="*" /> <referenceRange> <observationRange> <text>37.0- 47.0</text> </observationRange> </referenceRange> </ observation> </component> <component> <observation moodCode= "EVN" classCode="OBS"> <templateId root="2.840.1.351793.03.15.22.4.2 " /> <id nullFlavor="NA" /> <code codeSystem="local" code="PLT " displayName="PLATELET COUNT" /> <statusCode code="completed" /> <effectiveTime value="010688358789" /> <value unit="k/cumm" xsi: type="PQ" value="315" /> <referenceRange> <observationRange > <text>150-400</text> </observationRange> </ referenceRange> </observation> </component> </organizer> </entry > <entry> <organizer moodCode="EVN" classCode="BATTERY"> <templateId root="216.840.1.817399.03.15.22.4.1" /> <id nullFlavor="NA" /> <code codeSystem="local" code="RENAL" displayName="RENAL FUNCTION PANEL" /> < statusCode code="completed" /> <component> <observation moodCode= "EVN" classCode="OBS"> <templateId root="216.840.1.751811.10..22.4.2 " /> <id nullFlavor="NA" /> <code codeSystem="local" code="K" displayName="POTASSIUM" /> <statusCode code="completed" /> < effectiveTime value="665391580730" /> <value unit="mmol/L" xsi:type="PQ " value="5.4" /> <interpretationCode codeSystem="local" code="*" /> <referenceRange> <observationRange> <text>3.5-5.3 </text> </observationRange> </referenceRange> </ observation> </component> <component> <observation moodCode= "EVN" classCode="OBS"> <templateId root="07.12.840.1.922371.03.15.22.4.2 " /> <id nullFlavor="NA" /> <code codeSystem="local" code= "eGFR" displayName="EST GFR (MDRD)" /> <statusCode code="completed" /> <effectiveTime value="" /> <value unit="mL/min" xsi:type="PQ" value="> 60" /> <referenceRange> < observationRange> <text>> 59</text> </ observationRange> </referenceRange> </observation> </ component> <component> <observation moodCode="EVN" classCode="OBS"> <templateId root="16.840.1.423407.10..22.4.2" /> <id nullFlavor="NA" /> <code codeSystem="local" code="GAP" displayName= "ANION GAP" /> <statusCode code="completed" /> <effectiveTime value="" /> <value unit="mmol/L" xsi:type="PQ" value="5" / > <referenceRange> <observationRange> <text>5- 15</text> </observationRange> </referenceRange> </ observation> </component> <component> <observation moodCode= "EVN" classCode="OBS"> <templateId root="16.840.1.443090.10..22.4.2 " /> <id nullFlavor="NA" /> <code codeSystem="local" code= "eCrCl" displayName="EST CrCl (CG)" /> <statusCode code="completed" /> <effectiveTime value="" /> <value unit="mL/min" xsi:type="PQ" value="> 60" /> <referenceRange> < observationRange> <text>> 59</text> </ observationRange> </referenceRange> </observation> </ component> <component> <observation moodCode="EVN" classCode="OBS"> <templateId root="16.840.1.421325.10..22.4.2" /> <id nullFlavor="NA" /> <code codeSystem="local" code="GLU" displayName= "GLUCOSE" /> <statusCode code="completed" /> <effectiveTime value="" /> <value unit="mg/dL" xsi:type="PQ" value="89" / > <referenceRange> <observationRange> <text>70- 99</text> </observationRange> </referenceRange> </ observation> </component> <component> <observation moodCode= "EVN" classCode="OBS"> <templateId root="840.1.111788.10.20.22.4.2 " /> <id nullFlavor="NA" /> <code codeSystem="local" code="CA " displayName="CALCIUM" /> <statusCode code="completed" /> < effectiveTime value="" /> <value unit="mg/dL" xsi:type="PQ " value="8.3" /> <interpretationCode codeSystem="local" code="*" /> <referenceRange> <observationRange> <text>8.5- 10.1</text> </observationRange> </referenceRange> </ observation> </component> <component> <observation moodCode= "EVN" classCode="OBS"> <templateId root="07.12.840.1.231517.10.22.4.2 " /> <id nullFlavor="NA" /> <code codeSystem="local" code="BUN " displayName="BLOOD UREA NITROGEN" /> <statusCode code="completed" /> <effectiveTime value="" /> <value unit="mg/dL" xsi:type="PQ" value="5" /> <interpretationCode codeSystem="local" code= "*" /> <referenceRange> <observationRange> < text>7-20</text> </observationRange> </referenceRange> </observation> </component> <component> <observation moodCode="EVN" classCode="OBS"> <templateId root= "07.12.840.1.329040.10..22.4.2" /> <id nullFlavor="NA" /> < code codeSystem="local" code="CREAT" displayName="CREATININE" /> < statusCode code="completed" /> <effectiveTime value="" /> <value unit="mg/dL" xsi:type="PQ" value="0.6" /> < referenceRange> <observationRange> <text>0.6-1.0</text> </observationRange> </referenceRange> </observation > </component> <component> <observation moodCode="EVN" classCode="OBS"> <templateId root="216.840.1.631927.10..4.2" /> <id nullFlavor="NA" /> <code codeSystem="local" code="NA" displayName="SODIUM" /> <statusCode code="completed" /> < effectiveTime value="" /> <value unit="mmol/L" xsi:type="PQ " value="142" /> <referenceRange> <observationRange> <text>135-148</text> </observationRange> </ referenceRange> </observation> </component> <component> <observation moodCode="EVN" classCode="OBS"> <templateId root= "07.12.840.1.396805.03.15.22.4.2" /> <id nullFlavor="NA" /> < code codeSystem="local" code="CL" displayName="CHLORIDE" /> < statusCode code="completed" /> <effectiveTime value="" /> <value unit="mmol/L" xsi:type="PQ" value="109" /> < referenceRange> <observationRange> <text>98-110</text> </observationRange> </referenceRange> </observation> </component> <component> <observation moodCode="EVN" classCode ="OBS"> <templateId root="07.12.840.1.216847...4.2" /> < id nullFlavor="NA" /> <code codeSystem="local" code="CO2" displayName= "CARBON DIOXIDE" /> <statusCode code="completed" /> < effectiveTime value="" /> <value unit="mmol/L" xsi:type="PQ " value="28" /> <referenceRange> <observationRange> <text>21-32</text> </observationRange> </ referenceRange> </observation> </component> <component> <observation moodCode="EVN" classCode="OBS"> <templateId root= "216.840.1.760389.10...4.2" /> <id nullFlavor="NA" /> < code codeSystem="local" code="ALB" displayName="ALBUMIN" /> < statusCode code="completed" /> <effectiveTime value="" /> <value unit="gm/dL" xsi:type="PQ" value="2.9" /> < interpretationCode codeSystem="local" code="*" /> <referenceRange> <observationRange> <text>3.4-5.0</text> </ observationRange> </referenceRange> </observation> </ component> <component> <observation moodCode="EVN" classCode="OBS"> <templateId root="16.840.1.018540.03.15.22.4.2" /> <id nullFlavor="NA" /> <code codeSystem="local" code="PHOS" displayName= "PHOSPHORUS" /> <statusCode code="completed" /> < effectiveTime value="" /> <value unit="mg/dL" xsi:type="PQ " value="4.4" /> <referenceRange> <observationRange> <text>2.5-4.9</text> </observationRange> </ referenceRange> </observation> </component> </organizer> </entry > <entry> <organizer moodCode="EVN" classCode="BATTERY"> <templateId root="216.840.1.109289.10.4.1" /> <id nullFlavor="NA" /> <code codeSystem="local" code="MAG" displayName="MAGNESIUM" /> <statusCode code= "completed" /> <component> <observation moodCode="EVN" classCode= "OBS"> <templateId root="840.1.362506.03.15.22.4.2" /> < id nullFlavor="NA" /> <code codeSystem="local" code="MAG" displayName= "MAGNESIUM" /> <statusCode code="completed" /> <effectiveTime value="007807304411" /> <value unit="mg/dL" xsi:type="PQ" value="1.7" / > <interpretationCode codeSystem="local" code="*" /> < referenceRange> <observationRange> <text>1.8-2.4</text> </observationRange> </referenceRange> </observation > </component> </organizer> </entry> <entry> <organizer moodCode= "EVN" classCode="BATTERY"> <templateId root="840.1.673991.03.15.224.1 " /> <id nullFlavor="NA" /> <code codeSystem="local" code="UA" displayName="Urinalysis with reflex microscopic" /> <statusCode code= "completed" /> <component> <observation moodCode="EVN" classCode= "OBS"> <templateId root="840.1.197148.03.15.22.4.2" /> < id nullFlavor="NA" /> <code codeSystem="local" code="UAPP" displayName= "Appearance" /> <statusCode code="completed" /> < effectiveTime value="794344621854" /> <value unit="NA" xsi:type="PQ" value="Cloudy" /> <interpretationCode codeSystem="local" code="*" /> <referenceRange> <observationRange> <text /> </observationRange> </referenceRange> </observation> </component> <component> <observation moodCode="EVN" classCode= "OBS"> <templateId root="16.840.1.785554.10..4.2" /> < id nullFlavor="NA" /> <code codeSystem="local" code="UBIL" displayName= "Bilirubin" /> <statusCode code="completed" /> <effectiveTime value="" /> <value unit="NA" xsi:type="PQ" value="Negative " /> <referenceRange> <observationRange> <text> Negative</text> </observationRange> </referenceRange> </observation> </component> <component> <observation moodCode ="EVN" classCode="OBS"> <templateId root= "840.1.777434.03.15.224.2" /> <id nullFlavor="NA" /> < code codeSystem="local" code="UBLD" displayName="Blood" /> <statusCode code="completed" /> <effectiveTime value="401774058453" /> < value unit="NA" xsi:type="PQ" value="Pos 3+" /> <interpretationCode codeSystem="local" code="*" /> <referenceRange> < observationRange> <text>Negative</text> </ observationRange> </referenceRange> </observation> </ component> <component> <observation moodCode="EVN" classCode="OBS"> <templateId root="07.12.840.1.240008.03.15.224.2" /> <id nullFlavor="NA" /> <code codeSystem="local" code="UCOLR" displayName= "Color" /> <statusCode code="completed" /> <effectiveTime value="431137310868" /> <value unit="NA" xsi:type="PQ" value="Yellow" / > <referenceRange> <observationRange> <text /> </observationRange> </referenceRange> </observation > </component> <component> <observation moodCode="EVN" classCode="OBS"> <templateId root="07.12.840.1.397246.03.15.22.4.2" /> <id nullFlavor="NA" /> <code codeSystem="local" code="UGLU" displayName="Glucose, Urine" /> <statusCode code="completed" /> <effectiveTime value="543227326673" /> <value unit="" xsi:type="PQ" value="Negative" /> <referenceRange> <observationRange> <text>Negative</text> </observationRange> </ referenceRange> </observation> </component> <component> <observation moodCode="EVN" classCode="OBS"> <templateId root= "840.1.089154.03.15.22.4.2" /> <id nullFlavor="NA" /> < code codeSystem="local" code="UKET" displayName="Ketones" /> < statusCode code="completed" /> <effectiveTime value="780111041658" /> <value unit="" xsi:type="PQ" value="Negative" /> < referenceRange> <observationRange> <text>Negative</text > </observationRange> </referenceRange> </observation > </component> <component> <observation moodCode="EVN" classCode="OBS"> <templateId root="07.12.840.1.872164.03.15.22.4.2" /> <id nullFlavor="NA" /> <code codeSystem="local" code="ULEU" displayName="Leukocyte Esterase" /> <statusCode code="completed" /> <effectiveTime value="332215885714" /> <value unit="NA" xsi:type ="PQ" value="Negative" /> <referenceRange> <observationRange > <text>Negative</text> </observationRange> </ referenceRange> </observation> </component> <component> <observation moodCode="EVN" classCode="OBS"> <templateId root= "216.840.1.175562.03.15.22.4.2" /> <id nullFlavor="NA" /> < code codeSystem="local" code="UNIT" displayName="Nitrites" /> < statusCode code="completed" /> <effectiveTime value="510410744588" /> <value unit="NA" xsi:type="PQ" value="Negative" /> < referenceRange> <observationRange> <text>Negative</text > </observationRange> </referenceRange> </observation > </component> <component> <observation moodCode="EVN" classCode="OBS"> <templateId root="07.12.840.1.370680.03.15.22.4.2" /> <id nullFlavor="NA" /> <code codeSystem="local" code="UPH" displayName="pH" /> <statusCode code="completed" /> < effectiveTime value="162109971184" /> <value unit="NA" xsi:type="PQ" value="6.0" /> <referenceRange> <observationRange> <text>5.0-8.0</text> </observationRange> </ referenceRange> </observation> </component> <component> <observation moodCode="EVN" classCode="OBS"> <templateId root= "16.840.1.783152.03.15.22.4.2" /> <id nullFlavor="NA" /> < code codeSystem="local" code="UPRO" displayName="Protein" /> < statusCode code="completed" /> <effectiveTime value="951812092502" /> <value unit="NA" xsi:type="PQ" value="Pos 1+" /> < interpretationCode codeSystem="local" code="*" /> <referenceRange> <observationRange> <text>Negative</text> </ observationRange> </referenceRange> </observation> </ component> <component> <observation moodCode="EVN" classCode="OBS"> <templateId root="216.840.1.761376.10..22.4.2" /> <id nullFlavor="NA" /> <code codeSystem="local" code="USPG" displayName= "Specific [place]" /> <statusCode code="completed" /> < effectiveTime value="109348288163" /> <value unit="NA" xsi:type="PQ" value="1.020" /> <referenceRange> <observationRange> <text>1.003-1.030</text> </observationRange> </ referenceRange> </observation> </component> <component> <observation moodCode="EVN" classCode="OBS"> <templateId root= "16.840.1.500157.10..22.4.2" /> <id nullFlavor="NA" /> < code codeSystem="local" code="UTYP" displayName="UA Collection type" /> <statusCode code="completed" /> <effectiveTime value="055261949723" / > <value unit="NA" xsi:type="PQ" value="Clean Catch" /> < referenceRange> <observationRange> <text /> < /observationRange> </referenceRange> </observation> </ component> <component> <observation moodCode="EVN" classCode="OBS"> <templateId root="07.12.840.1.837009.10..4.2" /> <id nullFlavor="NA" /> <code codeSystem="local" code="UURO" displayName= "Urobilinogen" /> <statusCode code="completed" /> < effectiveTime value="212587872163" /> <value unit="mg/dL" xsi:type="PQ " value="Negative" /> <referenceRange> <observationRange> <text><1.0</text> </observationRange> </ referenceRange> </observation> </component> </organizer> </entry > <entry> <organizer moodCode="EVN" classCode="BATTERY"> <templateId root="07.12.840.1.645392.10.4.1" /> <id nullFlavor="NA" /> <code codeSystem="local" code="UMIC" displayName="Urine Microscopic" /> < statusCode code="completed" /> <component> <observation moodCode= "EVN" classCode="OBS"> <templateId root="07.12.840.1.840703.10..4.2 " /> <id nullFlavor="NA" /> <code codeSystem="local" code= "UBAC" displayName="Bacteria" /> <statusCode code="completed" /> <effectiveTime value="228252091561" /> <value unit="NA" xsi:type= "PQ" value="Rare" /> <referenceRange> <observationRange> <text /> </observationRange> </referenceRange> </observation> </component> <component> <observation moodCode="EVN" classCode="OBS"> <templateId root= "07.12.840.1.212152.10..4.2" /> <id nullFlavor="NA" /> < code codeSystem="local" code="UEPI" displayName="Epithelial Cells" /> < statusCode code="completed" /> <effectiveTime value="808714874841" /> <value unit="/HPF" xsi:type="PQ" value="5" /> <referenceRange > <observationRange> <text /> </ observationRange> </referenceRange> </observation> </ component> <component> <observation moodCode="EVN" classCode="OBS"> <templateId root="216.840.1.974850.10.20.22.4.2" /> <id nullFlavor="NA" /> <code codeSystem="local" code="URBC" displayName= "RBC, Urine" /> <statusCode code="completed" /> < effectiveTime value="425819376568" /> <value unit="/HPF" xsi:type="PQ" value=">50" /> <interpretationCode codeSystem="local" code="*" /> <referenceRange> <observationRange> <text>0-2</ text> </observationRange> </referenceRange> </ observation> </component> <component> <observation moodCode= "EVN" classCode="OBS"> <templateId root="216.840.1.336694.10.20.22.4.2 " /> <id nullFlavor="NA" /> <code codeSystem="local" code= "UWBC" displayName="WBC, Urine" /> <statusCode code="completed" /> <effectiveTime value="312322718226" /> <value unit="/HPF" xsi: type="PQ" value="0" /> <referenceRange> <observationRange> <text>0-4</text> </observationRange> </ referenceRange> </observation> </component> </organizer> </entry > <entry> <organizer moodCode="EVN" classCode="BATTERY"> <templateId root="16.840.1.752226.03.15.22.4.1" /> <id nullFlavor="NA" /> <code codeSystem="local" code="UPREG" displayName=" Screen, Urine" /> < statusCode code="completed" /> <component> <observation moodCode= "EVN" classCode="OBS"> <templateId root="840.1.783685.03.15.224.2 " /> <id nullFlavor="NA" /> <code codeSystem="local" code= "UPREG" displayName=" Screen, Urine" /> <statusCode code= "completed" /> <effectiveTime value="" /> <value unit="NA" xsi:type="PQ" value="Negative" /> <referenceRange> <observationRange> <text /> </observationRange> </referenceRange> </observation> </component> </organizer> < /entry> <entry> <organizer moodCode="EVN" classCode="BATTERY"> < templateId root="840.1.641658.03.15.22.4.1" /> <id nullFlavor="NA" /> <code codeSystem="local" code="CBCWD" displayName="CBC With Platelet and Differential" /> <statusCode code="completed" /> <component> < observation moodCode="EVN" classCode="OBS"> <templateId root= "07.12.840.1.802971.03.15.22.4.2" /> <id nullFlavor="NA" /> < code codeSystem="local" code="ABASR" displayName="Absolute Basophils" /> <statusCode code="completed" /> <effectiveTime value="[id number]" /> <value unit="10*3/uL" xsi:type="PQ" value="0.02" /> < referenceRange> <observationRange> <text>0.00-0.20</text > </observationRange> </referenceRange> </observation > </component> <component> <observation moodCode="EVN" classCode="OBS"> <templateId root="216.840.1.447752.10.20.22.4.2" /> <id nullFlavor="NA" /> <code codeSystem="local" code="AEOSR" displayName="Absolute Eosinophils" /> <statusCode code="completed" /> <effectiveTime value="349106179391" /> <value unit="10*3/uL" xsi:type="PQ" value="0.14" /> <referenceRange> < observationRange> <text>0.00-0.50</text> </ observationRange> </referenceRange> </observation> </ component> <component> <observation moodCode="EVN" classCode="OBS"> <templateId root="840.1.887644.10.20.4.2" /> <id nullFlavor="NA" /> <code codeSystem="local" code="ALYMR" displayName= "Absolute Lymphocytes" /> <statusCode code="completed" /> < effectiveTime value="972410448963" /> <value unit="10*3/uL" xsi:type= "PQ" value="1.48" /> <referenceRange> <observationRange> <text>0.80-3.30</text> </observationRange> </ referenceRange> </observation> </component> <component> <observation moodCode="EVN" classCode="OBS"> <templateId root= "07.12.840.1.890271.10.20.22.4.2" /> <id nullFlavor="NA" /> < code codeSystem="local" code="AMONR" displayName="Absolute Monocytes" /> <statusCode code="completed" /> <effectiveTime value="778551715251" /> <value unit="10*3/uL" xsi:type="PQ" value="0.40" /> < referenceRange> <observationRange> <text>0.30-1.00</text > </observationRange> </referenceRange> </observation > </component> <component> <observation moodCode="EVN" classCode="OBS"> <templateId root="216.840.1.356985.10..22.4.2" /> <id nullFlavor="NA" /> <code codeSystem="local" code="ASEGR" displayName="Absolute Neutrophils" /> <statusCode code="completed" /> <effectiveTime value="130113835595" /> <value unit="10*3/uL" xsi:type="PQ" value="2.51" /> <referenceRange> < observationRange> <text>1.90-7.00</text> </ observationRange> </referenceRange> </observation> </ component> <component> <observation moodCode="EVN" classCode="OBS"> <templateId root="216.840.1.516911.10...4.2" /> <id nullFlavor="NA" /> <code codeSystem="local" code="BASOR" displayName= "Basophils" /> <statusCode code="completed" /> <effectiveTime value="069576983186" /> <value unit="%" xsi:type="PQ" value="0" /> <referenceRange> <observationRange> <text>0-2< /text> </observationRange> </referenceRange> </ observation> </component> <component> <observation moodCode= "EVN" classCode="OBS"> <templateId root="216.840.1.139747.03.15.22.4.2 " /> <id nullFlavor="NA" /> <code codeSystem="local" code= "EOSR" displayName="Eosinophils" /> <statusCode code="completed" /> <effectiveTime value="142946601589" /> <value unit="%" xsi: type="PQ" value="3" /> <referenceRange> <observationRange> <text>0-4</text> </observationRange> </ referenceRange> </observation> </component> <component> <observation moodCode="EVN" classCode="OBS"> <templateId root= "2.16.840.1.114682.10..22.4.2" /> <id nullFlavor="NA" /> < code codeSystem="local" code="HCT" displayName="HCT" /> <statusCode code="completed" /> <effectiveTime value="" /> < value unit="%" xsi:type="PQ" value="38.1" /> <referenceRange> <observationRange> <text>37.0-47.0</text> </ observationRange> </referenceRange> </observation> </ component> <component> <observation moodCode="EVN" classCode="OBS"> <templateId root="2.16.840.1.484854.10..22.4.2" /> <id nullFlavor="NA" /> <code codeSystem="local" code="HGB" displayName="HGB " /> <statusCode code="completed" /> <effectiveTime value= "309526443045" /> <value unit="g/dL" xsi:type="PQ" value="11.9" /> <interpretationCode codeSystem="local" code="*" /> < referenceRange> <observationRange> <text>12.0-16.0</text > </observationRange> </referenceRange> </observation > </component> <component> <observation moodCode="EVN" classCode="OBS"> <templateId root="216.840.1.616183.10.4.2" /> <id nullFlavor="NA" /> <code codeSystem="local" code="IMGA" displayName="Immature Granulocytes" /> <statusCode code="completed" /> <effectiveTime value="" /> <value unit="%" xsi:type="PQ" value="0.0" /> <referenceRange> < observationRange> <text>0.0-1.0</text> </ observationRange> </referenceRange> </observation> </ component> <component> <observation moodCode="EVN" classCode="OBS"> <templateId root="07.12.840.1.022626.10.4.2" /> <id nullFlavor="NA" /> <code codeSystem="local" code="LYMPR" displayName= "Lymphocytes" /> <statusCode code="completed" /> < effectiveTime value="" /> <value unit="%" xsi:type="PQ " value="33" /> <referenceRange> <observationRange> <text>20-46</text> </observationRange> </ referenceRange> </observation> </component> <component> <observation moodCode="EVN" classCode="OBS"> <templateId root= "216.840.1.189914.10..4.2" /> <id nullFlavor="NA" /> < code codeSystem="local" code="MCH" displayName="MCH" /> <statusCode code="completed" /> <effectiveTime value="" /> < value unit="pg" xsi:type="PQ" value="27.8" /> <referenceRange> <observationRange> <text>27.0-32.0</text> </ observationRange> </referenceRange> </observation> </ component> <component> <observation moodCode="EVN" classCode="OBS"> <templateId root="07.12.840.1.783021.10.20.22.4.2" /> <id nullFlavor="NA" /> <code codeSystem="local" code="MCHC" displayName= "MCHC" /> <statusCode code="completed" /> <effectiveTime value ="610869277445" /> <value unit="g/dL" xsi:type="PQ" value="31.2" /> <interpretationCode codeSystem="local" code="*" /> < referenceRange> <observationRange> <text>32.0-36.0</text > </observationRange> </referenceRange> </observation > </component> <component> <observation moodCode="EVN" classCode="OBS"> <templateId root="07.12.840.1.898265.03.15.22.4.2" /> <id nullFlavor="NA" /> <code codeSystem="local" code="MCV" displayName="MCV" /> <statusCode code="completed" /> < effectiveTime value="812542614159" /> <value unit="fL" xsi:type="PQ" value="89.0" /> <referenceRange> <observationRange> <text>82.0-99.0</text> </observationRange> </ referenceRange> </observation> </component> <component> <observation moodCode="EVN" classCode="OBS"> <templateId root= "07.12.840.1.931703.10.20.22.4.2" /> <id nullFlavor="NA" /> < code codeSystem="local" code="MONOR" displayName="Monocytes" /> < statusCode code="completed" /> <effectiveTime value="" /> <value unit="%" xsi:type="PQ" value="9" /> <referenceRange > <observationRange> <text>4-11</text> </ observationRange> </referenceRange> </observation> </ component> <component> <observation moodCode="EVN" classCode="OBS"> <templateId root="216.840.1.934072.10..22.4.2" /> <id nullFlavor="NA" /> <code codeSystem="local" code="MPV" displayName="MPV " /> <statusCode code="completed" /> <effectiveTime value= "" /> <value unit="fL" xsi:type="PQ" value="9.4" /> <referenceRange> <observationRange> <text>9.4-12.4</ text> </observationRange> </referenceRange> </ observation> </component> <component> <observation moodCode= "EVN" classCode="OBS"> <templateId root="16.840.1.430123.10..22.4.2 " /> <id nullFlavor="NA" /> <code codeSystem="local" code= "SEGR" displayName="Neutrophils" /> <statusCode code="completed" /> <effectiveTime value="976359291157" /> <value unit="%" xsi: type="PQ" value="55" /> <referenceRange> <observationRange> <text>51-75</text> </observationRange> </ referenceRange> </observation> </component> <component> <observation moodCode="EVN" classCode="OBS"> <templateId root= "16.840.1.335954.22.4.2" /> <id nullFlavor="NA" /> < code codeSystem="local" code="NRBCA" displayName="Nucleated RBC Automated" /> <statusCode code="completed" /> <effectiveTime value= "" /> <value unit="/100WBC" xsi:type="PQ" value="0.0" /> <referenceRange> <observationRange> <text /> </observationRange> </referenceRange> </observation> </component> <component> <observation moodCode="EVN" classCode= "OBS"> <templateId root="216.840.1.747502.03.15.22.4.2" /> < id nullFlavor="NA" /> <code codeSystem="local" code="PLT" displayName= "Platelet Count" /> <statusCode code="completed" /> < effectiveTime value="" /> <value unit="K/uL" xsi:type="PQ" value="230" /> <referenceRange> <observationRange> <text>150-400</text> </observationRange> </ referenceRange> </observation> </component> <component> <observation moodCode="EVN" classCode="OBS"> <templateId root= "216.840.1.290488.03.15.22.4.2" /> <id nullFlavor="NA" /> < code codeSystem="local" code="RBC" displayName="RBC" /> <statusCode code="completed" /> <effectiveTime value="" /> < value unit="10*6/uL" xsi:type="PQ" value="4.28" /> <referenceRange> <observationRange> <text>4.00-5.20</text> </ observationRange> </referenceRange> </observation> </ component> <component> <observation moodCode="EVN" classCode="OBS"> <templateId root="216.840.1.747971.10...4.2" /> <id nullFlavor="NA" /> <code codeSystem="local" code="RDW" displayName="RDW " /> <statusCode code="completed" /> <effectiveTime value= "" /> <value unit="%" xsi:type="PQ" value="18.0" /> <interpretationCode codeSystem="local" code="*" /> < referenceRange> <observationRange> <text>11.5-14.5</text > </observationRange> </referenceRange> </observation > </component> <component> <observation moodCode="EVN" classCode="OBS"> <templateId root="07.12.840.1.701069.03.15.22.4.2" /> <id nullFlavor="NA" /> <code codeSystem="local" code="WBCIR" displayName="WBC" /> <statusCode code="completed" /> < effectiveTime value="" /> <value unit="K/uL" xsi:type="PQ" value="4.6" /> <interpretationCode codeSystem="local" code="*" /> <referenceRange> <observationRange> <text>4.8-10.8< /text> </observationRange> </referenceRange> </ observation> </component> </organizer> </entry> <entry> <organizer moodCode="EVN" classCode="BATTERY"> <templateId root= "216.840.1.986878.10..4.1" /> <id nullFlavor="NA" /> <code codeSystem="local" code="CMP" displayName="Comprehensive Metabolic Panel (CMP)" /> <statusCode code="completed" /> <component> <observation moodCode="EVN" classCode="OBS"> <templateId root= "216.840.1.740491.10..22.4.2" /> <id nullFlavor="NA" /> < code codeSystem="local" code="ALB" displayName="Albumin" /> < statusCode code="completed" /> <effectiveTime value="" /> <value unit="g/dL" xsi:type="PQ" value="3.7" /> < referenceRange> <observationRange> <text>3.5-4.8</text> </observationRange> </referenceRange> </observation > </component> <component> <observation moodCode="EVN" classCode="OBS"> <templateId root="16.840.1.339663...4.2" /> <id nullFlavor="NA" /> <code codeSystem="local" code="ALP" displayName="Alkaline Phosphatase" /> <statusCode code="completed" /> <effectiveTime value="" /> <value unit="U/L" xsi: type="PQ" value="62" /> <referenceRange> <observationRange> <text>26-104</text> </observationRange> </ referenceRange> </observation> </component> <component> <observation moodCode="EVN" classCode="OBS"> <templateId root= "16.840.1.429747.10...4.2" /> <id nullFlavor="NA" /> < code codeSystem="local" code="ALT" displayName="ALT (SGPT)" /> < statusCode code="completed" /> <effectiveTime value="" /> <value unit="U/L" xsi:type="PQ" value="18" /> <referenceRange > <observationRange> <text>14-54</text> </ observationRange> </referenceRange> </observation> </ component> <component> <observation moodCode="EVN" classCode="OBS"> <templateId root="16.840.1.476283.10...4.2" /> <id nullFlavor="NA" /> <code codeSystem="local" code="AGAP" displayName= "Anion Gap" /> <statusCode code="completed" /> <effectiveTime value="703161712560" /> <value unit="mEq/L" xsi:type="PQ" value="6" /> <referenceRange> <observationRange> <text>3-20 </text> </observationRange> </referenceRange> </ observation> </component> <component> <observation moodCode= "EVN" classCode="OBS"> <templateId root="07.12.840.1.836057.03.15.22.4.2 " /> <id nullFlavor="NA" /> <code codeSystem="local" code="AST " displayName="AST (SGOT)" /> <statusCode code="completed" /> <effectiveTime value="080100046424" /> <value unit="U/L" xsi:type="PQ" value="22" /> <referenceRange> <observationRange> <text>15-41</text> </observationRange> </referenceRange > </observation> </component> <component> <observation moodCode="EVN" classCode="OBS"> <templateId root= "07.12.840.1.599579....4.2" /> <id nullFlavor="NA" /> < code codeSystem="local" code="BILIT" displayName="Bilirubin Total" /> < statusCode code="completed" /> <effectiveTime value="727653346171" /> <value unit="mg/dL" xsi:type="PQ" value="0.5" /> < referenceRange> <observationRange> <text>0.2-1.2</text> </observationRange> </referenceRange> </observation > </component> <component> <observation moodCode="EVN" classCode="OBS"> <templateId root="216.840.1.693872.10.22.4.2" /> <id nullFlavor="NA" /> <code codeSystem="local" code="BUN" displayName="BUN" /> <statusCode code="completed" /> < effectiveTime value="151919032384" /> <value unit="mg/dL" xsi:type="PQ " value="10" /> <referenceRange> <observationRange> <text>4-20</text> </observationRange> </referenceRange > </observation> </component> <component> <observation moodCode="EVN" classCode="OBS"> <templateId root= "16.840.1.707443.03.15.22.4.2" /> <id nullFlavor="NA" /> < code codeSystem="local" code="CA" displayName="Calcium" /> <statusCode code="completed" /> <effectiveTime value="299915992725" /> < value unit="mg/dL" xsi:type="PQ" value="9.0" /> <referenceRange> <observationRange> <text>8.6-10.0</text> </ observationRange> </referenceRange> </observation> </ component> <component> <observation moodCode="EVN" classCode="OBS"> <templateId root="16.840.1.591294...22.4.2" /> <id nullFlavor="NA" /> <code codeSystem="local" code="CL" displayName= "Chloride" /> <statusCode code="completed" /> <effectiveTime value="310900039967" /> <value unit="mEq/L" xsi:type="PQ" value="106" / > <referenceRange> <observationRange> <text>99- 109</text> </observationRange> </referenceRange> </ observation> </component> <component> <observation moodCode= "EVN" classCode="OBS"> <templateId root="16.840.1.004362.10..4.2 " /> <id nullFlavor="NA" /> <code codeSystem="local" code="CO2 " displayName="CO2" /> <statusCode code="completed" /> < effectiveTime value="" /> <value unit="mEq/L" xsi:type="PQ " value="26" /> <referenceRange> <observationRange> <text>22-32</text> </observationRange> </ referenceRange> </observation> </component> <component> <observation moodCode="EVN" classCode="OBS"> <templateId root= "07.12.840.1.208414...4.2" /> <id nullFlavor="NA" /> < code codeSystem="local" code="CREAT" displayName="Creatinine" /> < statusCode code="completed" /> <effectiveTime value="" /> <value unit="mg/dL" xsi:type="PQ" value="0.61" /> < referenceRange> <observationRange> <text>0.44-1.03</text > </observationRange> </referenceRange> </observation > </component> <component> <observation moodCode="EVN" classCode="OBS"> <templateId root="07.12.840.1.739826.03.15.22.4.2" /> <id nullFlavor="NA" /> <code codeSystem="local" code="GLOB" displayName="Globulin" /> <statusCode code="completed" /> < effectiveTime value="" /> <value unit="g/dL" xsi:type="PQ" value="3.0" /> <referenceRange> <observationRange> <text>1.9-4.3</text> </observationRange> </ referenceRange> </observation> </component> <component> <observation moodCode="EVN" classCode="OBS"> <templateId root= "2.16.840.1.903665.03.15.22.4.2" /> <id nullFlavor="NA" /> < code codeSystem="local" code="GLU" displayName="Glucose" /> < statusCode code="completed" /> <effectiveTime value="" /> <value unit="mg/dL" xsi:type="PQ" value="91" /> < referenceRange> <observationRange> <text>70-100</text> </observationRange> </referenceRange> </observation> </component> <component> <observation moodCode="EVN" classCode ="OBS"> <templateId root="2.16.840.1.810717.03.15.22.4.2" /> < id nullFlavor="NA" /> <code codeSystem="local" code="K" displayName= "Potassium" /> <statusCode code="completed" /> <effectiveTime value="" /> <value unit="mEq/L" xsi:type="PQ" value="3.9" / > <referenceRange> <observationRange> <text>3.6 -5.1</text> </observationRange> </referenceRange> </ observation> </component> <component> <observation moodCode= "EVN" classCode="OBS"> <templateId root="840.1.056722.10.22.4.2 " /> <id nullFlavor="NA" /> <code codeSystem="local" code="TP " displayName="Protein" /> <statusCode code="completed" /> < effectiveTime value="" /> <value unit="g/dL" xsi:type="PQ" value="6.7" /> <referenceRange> <observationRange> <text>6.1-7.9</text> </observationRange> </ referenceRange> </observation> </component> <component> <observation moodCode="EVN" classCode="OBS"> <templateId root= "840.1.133179.03.15.22.4.2" /> <id nullFlavor="NA" /> < code codeSystem="local" code="NA" displayName="Sodium" /> <statusCode code="completed" /> <effectiveTime value="834661495240" /> < value unit="mEq/L" xsi:type="PQ" value="138" /> <referenceRange> <observationRange> <text>136-144</text> </ observationRange> </referenceRange> </observation> </ component> </organizer> </entry> <entry> <organizer moodCode="EVN" classCode="BATTERY"> <templateId root="840.1.455450.1022.4.1" /> <id nullFlavor="NA" /> <code codeSystem="local" code="GFR" displayName ="eGFR" /> <statusCode code="completed" /> <component> < observation moodCode="EVN" classCode="OBS"> <templateId root= "840.1.407019.1022.4.2" /> <id nullFlavor="NA" /> < code codeSystem="local" code="GFR" displayName="eGFR" /> <statusCode code="completed" /> <effectiveTime value="515129360641" /> < value unit="mL/min" xsi:type="PQ" value=">60" /> <referenceRange> <observationRange> <text>>60</text> </ observationRange> </referenceRange> </observation> </ component> </organizer> </entry> <entry> <organizer moodCode="EVN" classCode="BATTERY"> <templateId root="16.840.1.577252.10..4.1" /> <id nullFlavor="NA" /> <code codeSystem="local" code="CBCD" displayName="CBC W/DIFF" /> <statusCode code="completed" /> <component > <observation moodCode="EVN" classCode="OBS"> <templateId root= "16.840.1.674723.10..22.4.2" /> <id nullFlavor="NA" /> < code codeSystem="local" code="BA#" displayName="BASOPHIL #" /> < statusCode code="completed" /> <effectiveTime value="809475616460" /> <value unit="k/cumm" xsi:type="PQ" value="0.0" /> < referenceRange> <observationRange> <text>0.0-0.2</text> </observationRange> </referenceRange> </observation > </component> <component> <observation moodCode="EVN" classCode="OBS"> <templateId root="16.840.1.808088.10.20.22.4.2" /> <id nullFlavor="NA" /> <code codeSystem="local" code="BA% " displayName="BASOPHIL %" /> <statusCode code="completed" /> <effectiveTime value="729840255666" /> <value unit="%" xsi: type="PQ" value="1" /> <referenceRange> <observationRange> <text>0-1</text> </observationRange> </ referenceRange> </observation> </component> <component> <observation moodCode="EVN" classCode="OBS"> <templateId root= "2.16.840.1.180442.10.20.22.4.2" /> <id nullFlavor="NA" /> < code codeSystem="local" code="EO#" displayName="EOSINOPHIL #" /> < statusCode code="completed" /> <effectiveTime value="472561783244" /> <value unit="k/cumm" xsi:type="PQ" value="0.1" /> < referenceRange> <observationRange> <text>0.1-0.5</text> </observationRange> </referenceRange> </observation > </component> <component> <observation moodCode="EVN" classCode="OBS"> <templateId root="2.16.840.1.137129.10.20.22.4.2" /> <id nullFlavor="NA" /> <code codeSystem="local" code="EO% " displayName="EOSINOPHIL %" /> <statusCode code="completed" /> <effectiveTime value="878477440183" /> <value unit="%" xsi: type="PQ" value="1" /> <interpretationCode codeSystem="local" code="*" /> <referenceRange> <observationRange> <text>2- 4</text> </observationRange> </referenceRange> </ observation> </component> <component> <observation moodCode= "EVN" classCode="OBS"> <templateId root="07.12.840.1.035522.10.2022.4.2 " /> <id nullFlavor="NA" /> <code codeSystem="local" code="GR# " displayName="GRANULOCYTE #" /> <statusCode code="completed" /> <effectiveTime value="" /> <value unit="k/cumm" xsi: type="PQ" value="3.2" /> <referenceRange> <observationRange > <text>2.0-9.0</text> </observationRange> </ referenceRange> </observation> </component> <component> <observation moodCode="EVN" classCode="OBS"> <templateId root= "07.12.840.1.684457.22.4.2" /> <id nullFlavor="NA" /> < code codeSystem="local" code="GR%" displayName="GRANULOCYTE %" /> <statusCode code="completed" /> <effectiveTime value=" " /> <value unit="%" xsi:type="PQ" value="51" /> < referenceRange> <observationRange> <text>50-75</text> </observationRange> </referenceRange> </observation> </component> <component> <observation moodCode="EVN" classCode= "OBS"> <templateId root="07.12.840.1.185985.10.2022.4.2" /> < id nullFlavor="NA" /> <code codeSystem="local" code="LY#" displayName= "LYMPHOCYTE #" /> <statusCode code="completed" /> < effectiveTime value="" /> <value unit="k/cumm" xsi:type="PQ " value="2.4" /> <referenceRange> <observationRange> <text>1.0-4.0</text> </observationRange> </ referenceRange> </observation> </component> <component> <observation moodCode="EVN" classCode="OBS"> <templateId root= "07.12.840.1.400412.10.20.22.4.2" /> <id nullFlavor="NA" /> < code codeSystem="local" code="LY%" displayName="LYMPHOCYTE %" /> <statusCode code="completed" /> <effectiveTime value="753686956378" /> <value unit="%" xsi:type="PQ" value="39" /> < interpretationCode codeSystem="local" code="*" /> <referenceRange> <observationRange> <text>20-30</text> </ observationRange> </referenceRange> </observation> </ component> <component> <observation moodCode="EVN" classCode="OBS"> <templateId root="840.1.827089.10.2022.4.2" /> <id nullFlavor="NA" /> <code codeSystem="local" code="MCH" displayName= "MEAN CELL HGB" /> <statusCode code="completed" /> < effectiveTime value="561557032787" /> <value unit="pg" xsi:type="PQ" value="27.5" /> <referenceRange> <observationRange> <text>27.0-33.0</text> </observationRange> </ referenceRange> </observation> </component> <component> <observation moodCode="EVN" classCode="OBS"> <templateId root= "07.12.840.1.408187.10.20.22.4.2" /> <id nullFlavor="NA" /> < code codeSystem="local" code="MCHC" displayName="MEAN CELL HGB CONCENTRATION" / > <statusCode code="completed" /> <effectiveTime value= "" /> <value unit="g/dL" xsi:type="PQ" value="31.1" /> <interpretationCode codeSystem="local" code="*" /> < referenceRange> <observationRange> <text>32.0-37.0</text > </observationRange> </referenceRange> </observation > </component> <component> <observation moodCode="EVN" classCode="OBS"> <templateId root="216.840.1.255507.10.20.22.4.2" /> <id nullFlavor="NA" /> <code codeSystem="local" code="MCV" displayName="MEAN CELL VOLUME" /> <statusCode code="completed" /> <effectiveTime value="" /> <value unit="fl" xsi:type= "PQ" value="88.2" /> <referenceRange> <observationRange> <text>80.0-100.0</text> </observationRange> </ referenceRange> </observation> </component> <component> <observation moodCode="EVN" classCode="OBS"> <templateId root= "216.840.1.401078.10.20.22.4.2" /> <id nullFlavor="NA" /> < code codeSystem="local" code="MO#" displayName="MONOCYTE #" /> < statusCode code="completed" /> <effectiveTime value="" /> <value unit="k/cumm" xsi:type="PQ" value="0.5" /> < referenceRange> <observationRange> <text>0.1-1.0</text> </observationRange> </referenceRange> </observation > </component> <component> <observation moodCode="EVN" classCode="OBS"> <templateId root="16.840.1.317796.10.20.22.4.2" /> <id nullFlavor="NA" /> <code codeSystem="local" code="MO% " displayName="MONOCYTE %" /> <statusCode code="completed" /> <effectiveTime value="" /> <value unit="%" xsi: type="PQ" value="8" /> <interpretationCode codeSystem="local" code="*" /> <referenceRange> <observationRange> <text>4- 6</text> </observationRange> </referenceRange> </ observation> </component> <component> <observation moodCode= "EVN" classCode="OBS"> <templateId root="07.12.840.1.250872.10.22.4.2 " /> <id nullFlavor="NA" /> <code codeSystem="local" code= "MPVT" displayName="MEAN PLATELET VOLUME" /> <statusCode code= "completed" /> <effectiveTime value="" /> <value unit="fl" xsi:type="PQ" value="9.2" /> <referenceRange> < observationRange> <text>8.5-10.9</text> </ observationRange> </referenceRange> </observation> </ component> <component> <observation moodCode="EVN" classCode="OBS"> <templateId root="07.12.840.1.000161.10.20.22.4.2" /> <id nullFlavor="NA" /> <code codeSystem="local" code="RBC" displayName=" RED BLOOD CELL" /> <statusCode code="completed" /> < effectiveTime value="" /> <value unit="m/cumm" xsi:type="PQ " value="3.97" /> <interpretationCode codeSystem="local" code="*" /> <referenceRange> <observationRange> <text>4.00- 6.00</text> </observationRange> </referenceRange> </ observation> </component> <component> <observation moodCode= "EVN" classCode="OBS"> <templateId root="216.840.1.935719.10..22.4.2 " /> <id nullFlavor="NA" /> <code codeSystem="local" code="RDW " displayName="RED CELL DISTRIBUTION WIDTH" /> <statusCode code= "completed" /> <effectiveTime value="[id number]" /> <value unit="%" xsi:type="PQ" value="13.3" /> <referenceRange> <observationRange> <text>11.0-15.6</text> </ observationRange> </referenceRange> </observation> </ component> <component> <observation moodCode="EVN" classCode="OBS"> <templateId root="07.12.840.1.226344.10..4.2" /> <id nullFlavor="NA" /> <code codeSystem="local" code="WBC" displayName= "WHITE BLOOD CELL" /> <statusCode code="completed" /> < effectiveTime value="780164697487" /> <value unit="k/cumm" xsi:type="PQ " value="6.2" /> <referenceRange> <observationRange> <text>5.0-10.0</text> </observationRange> </ referenceRange> </observation> </component> <component> <observation moodCode="EVN" classCode="OBS"> <templateId root= "07.12.840.1.891307.10.20.22.4.2" /> <id nullFlavor="NA" /> < code codeSystem="local" code="HGBT" displayName="HEMOGLOBIN" /> < statusCode code="completed" /> <effectiveTime value="" /> <value unit="gm/dL" xsi:type="PQ" value="10.9" /> < interpretationCode codeSystem="local" code="*" /> <referenceRange> <observationRange> <text>12.0-16.0</text> </ observationRange> </referenceRange> </observation> </ component> <component> <observation moodCode="EVN" classCode="OBS"> <templateId root="2.16.840.1.049710.10.20.22.4.2" /> <id nullFlavor="NA" /> <code codeSystem="local" code="HCTT" displayName= "HEMATOCRIT" /> <statusCode code="completed" /> < effectiveTime value="" /> <value unit="%" xsi:type="PQ " value="35.0" /> <interpretationCode codeSystem="local" code="*" /> <referenceRange> <observationRange> <text>37.0- 47.0</text> </observationRange> </referenceRange> </ observation> </component> <component> <observation moodCode= "EVN" classCode="OBS"> <templateId root="2.16.840.1.983796.10.20.22.4.2 " /> <id nullFlavor="NA" /> <code codeSystem="local" code= "PLTT" displayName="PLATELET COUNT" /> <statusCode code="completed" /> <effectiveTime value="" /> <value unit="k/cumm" xsi:type="PQ" value="212" /> <referenceRange> < observationRange> <text>150-400</text> </ observationRange> </referenceRange> </observation> </ component> </organizer> </entry> <entry> <organizer moodCode="EVN" classCode="BATTERY"> <templateId root="16.840.1.914830.10..22.4.1" /> <id nullFlavor="NA" /> <code codeSystem="local" code="METABC" displayName="METABOLIC PANEL, COMPREHN" /> <statusCode code="completed" /> <component> <observation moodCode="EVN" classCode="OBS"> < templateId root="16.840.1.208568.10..22.4.2" /> <id nullFlavor="NA " /> <code codeSystem="local" code="K" displayName="POTASSIUM" /> <statusCode code="completed" /> <effectiveTime value=" " /> <value unit="mmol/L" xsi:type="PQ" value="3.2" /> < interpretationCode codeSystem="local" code="*" /> <referenceRange> <observationRange> <text>3.5-5.3</text> </ observationRange> </referenceRange> </observation> </ component> <component> <observation moodCode="EVN" classCode="OBS"> <templateId root="16.840.1.244187....4.2" /> <id nullFlavor="NA" /> <code codeSystem="local" code="eGFR" displayName= "EST GFR (MDRD)" /> <statusCode code="completed" /> < effectiveTime value="" /> <value unit="mL/min" xsi:type="PQ " value="> 60" /> <referenceRange> <observationRange> <text>> 59</text> </observationRange> </ referenceRange> </observation> </component> <component> <observation moodCode="EVN" classCode="OBS"> <templateId root= "216.840.1.142721.10.20.22.4.2" /> <id nullFlavor="NA" /> < code codeSystem="local" code="GAP" displayName="ANION GAP" /> < statusCode code="completed" /> <effectiveTime value="" /> <value unit="mmol/L" xsi:type="PQ" value="8" /> < referenceRange> <observationRange> <text>5-15</text> </observationRange> </referenceRange> </observation> </component> <component> <observation moodCode="EVN" classCode= "OBS"> <templateId root="216.840.1.046850.10..22.4.2" /> < id nullFlavor="NA" /> <code codeSystem="local" code="eCrCl" displayName ="EST CrCl (CG)" /> <statusCode code="completed" /> < effectiveTime value="" /> <value unit="mL/min" xsi:type="PQ " value="> 60" /> <referenceRange> <observationRange> <text>> 59</text> </observationRange> </ referenceRange> </observation> </component> <component> <observation moodCode="EVN" classCode="OBS"> <templateId root= "216.840.1.917080.10..22.4.2" /> <id nullFlavor="NA" /> < code codeSystem="local" code="GLU" displayName="GLUCOSE" /> < statusCode code="completed" /> <effectiveTime value="" /> <value unit="mg/dL" xsi:type="PQ" value="89" /> < referenceRange> <observationRange> <text>70-99</text> </observationRange> </referenceRange> </observation> </component> <component> <observation moodCode="EVN" classCode= "OBS"> <templateId root="216.840.1.897061.1022.4.2" /> < id nullFlavor="NA" /> <code codeSystem="local" code="CA" displayName= "CALCIUM" /> <statusCode code="completed" /> <effectiveTime value="" /> <value unit="mg/dL" xsi:type="PQ" value="8.3" / > <interpretationCode codeSystem="local" code="*" /> < referenceRange> <observationRange> <text>8.5-10.1</text > </observationRange> </referenceRange> </observation > </component> <component> <observation moodCode="EVN" classCode="OBS"> <templateId root="16.840.1.488666.03.15.22.4.2" /> <id nullFlavor="NA" /> <code codeSystem="local" code="BUN" displayName="BLOOD UREA NITROGEN" /> <statusCode code="completed" /> <effectiveTime value="" /> <value unit="mg/dL" xsi: type="PQ" value="7" /> <referenceRange> <observationRange> <text>7-20</text> </observationRange> </ referenceRange> </observation> </component> <component> <observation moodCode="EVN" classCode="OBS"> <templateId root= "216.840.1.503916.10.22.4.2" /> <id nullFlavor="NA" /> < code codeSystem="local" code="CREAT" displayName="CREATININE" /> < statusCode code="completed" /> <effectiveTime value="" /> <value unit="mg/dL" xsi:type="PQ" value="0.9" /> < referenceRange> <observationRange> <text>0.6-1.0</text> </observationRange> </referenceRange> </observation > </component> <component> <observation moodCode="EVN" classCode="OBS"> <templateId root="216.840.1.510779.10.22.4.2" /> <id nullFlavor="NA" /> <code codeSystem="local" code="NA" displayName="SODIUM" /> <statusCode code="completed" /> < effectiveTime value="" /> <value unit="mmol/L" xsi:type="PQ " value="140" /> <referenceRange> <observationRange> <text>135-148</text> </observationRange> </ referenceRange> </observation> </component> <component> <observation moodCode="EVN" classCode="OBS"> <templateId root= "07.12.840.1.324696.03.15.22.4.2" /> <id nullFlavor="NA" /> < code codeSystem="local" code="CL" displayName="CHLORIDE" /> < statusCode code="completed" /> <effectiveTime value="" /> <value unit="mmol/L" xsi:type="PQ" value="105" /> < referenceRange> <observationRange> <text>98-110</text> </observationRange> </referenceRange> </observation> </component> <component> <observation moodCode="EVN" classCode ="OBS"> <templateId root="07.12.840.1.602524.10.2022.4.2" /> < id nullFlavor="NA" /> <code codeSystem="local" code="AST" displayName= "AST/SGOT" /> <statusCode code="completed" /> <effectiveTime value="" /> <value unit="Units/L" xsi:type="PQ" value="17" /> <referenceRange> <observationRange> <text>10 -37</text> </observationRange> </referenceRange> </ observation> </component> <component> <observation moodCode= "EVN" classCode="OBS"> <templateId root="216.840.1.227854...4.2 " /> <id nullFlavor="NA" /> <code codeSystem="local" code="ALT " displayName="ALT/SGPT" /> <statusCode code="completed" /> < effectiveTime value="" /> <value unit="Units/L" xsi:type= "PQ" value="24" /> <referenceRange> <observationRange> <text>< 66</text> </observationRange> </ referenceRange> </observation> </component> <component> <observation moodCode="EVN" classCode="OBS"> <templateId root= "16.840.1.214924.03.15.22.4.2" /> <id nullFlavor="NA" /> < code codeSystem="local" code="CO2" displayName="CARBON DIOXIDE" /> < statusCode code="completed" /> <effectiveTime value="969358531904" /> <value unit="mmol/L" xsi:type="PQ" value="27" /> < referenceRange> <observationRange> <text>21-32</text> </observationRange> </referenceRange> </observation> </component> <component> <observation moodCode="EVN" classCode= "OBS"> <templateId root="07.12.840.1.580775.03.15.22.4.2" /> < id nullFlavor="NA" /> <code codeSystem="local" code="TP" displayName= "TOTAL PROTEIN" /> <statusCode code="completed" /> < effectiveTime value="" /> <value unit="gm/dL" xsi:type="PQ " value="6.7" /> <referenceRange> <observationRange> <text>6.4-8.2</text> </observationRange> </ referenceRange> </observation> </component> <component> <observation moodCode="EVN" classCode="OBS"> <templateId root= "2.16.840.1.377175.10..4.2" /> <id nullFlavor="NA" /> < code codeSystem="local" code="ALB" displayName="ALBUMIN" /> < statusCode code="completed" /> <effectiveTime value="" /> <value unit="gm/dL" xsi:type="PQ" value="3.4" /> < referenceRange> <observationRange> <text>3.4-5.0</text> </observationRange> </referenceRange> </observation > </component> <component> <observation moodCode="EVN" classCode="OBS"> <templateId root="216.840.1.868147.10..4.2" /> <id nullFlavor="NA" /> <code codeSystem="local" code="BILTOT" displayName="BILI TOTAL" /> <statusCode code="completed" /> < effectiveTime value="" /> <value unit="mg/dL" xsi:type="PQ " value="0.1" /> <referenceRange> <observationRange> <text>0.0-1.0</text> </observationRange> </ referenceRange> </observation> </component> <component> <observation moodCode="EVN" classCode="OBS"> <templateId root= "216.840.1.411008.10..22.4.2" /> <id nullFlavor="NA" /> < code codeSystem="local" code="ALKP" displayName="ALKALINE PHOSPHATASE TOTAL" /> <statusCode code="completed" /> <effectiveTime value= "" /> <value unit="IU/L" xsi:type="PQ" value="85" /> <referenceRange> <observationRange> <text>45-117</ text> </observationRange> </referenceRange> </ observation> </component> </organizer> </entry> <entry> <organizer moodCode="EVN" classCode="BATTERY"> <templateId root= "216.840.1.034399.10..22.4.1" /> <id nullFlavor="NA" /> <code codeSystem="local" code="LIP" displayName="LIPASE" /> <statusCode code= "completed" /> <component> <observation moodCode="EVN" classCode= "OBS"> <templateId root="216.840.1.119917.10..22.4.2" /> < id nullFlavor="NA" /> <code codeSystem="local" code="LIP" displayName= "LIPASE" /> <statusCode code="completed" /> <effectiveTime value="684723850818" /> <value unit="Units/L" xsi:type="PQ" value="129 " /> <referenceRange> <observationRange> <text> 73-393</text> </observationRange> </referenceRange> < /observation> </component> </organizer> </entry> <entry> < organizer moodCode="EVN" classCode="BATTERY"> <templateId root= "840.1.912128.10..22.4.1" /> <id nullFlavor="NA" /> <code codeSystem="local" code="PREGU" displayName="UR TEST" /> < statusCode code="completed" /> <component> <observation moodCode= "EVN" classCode="OBS"> <templateId root="07.12.840.1.646865.03.15.22.4.2 " /> <id nullFlavor="NA" /> <code codeSystem="local" code= "PREGU" displayName="UR TEST" /> <statusCode code="completed " /> <effectiveTime value="685809551558" /> <value unit="" xsi :type="PQ" value="NEGATIVE" /> <referenceRange> < observationRange> <text>NEGATIVE</text> </ observationRange> </referenceRange> </observation> </ component> </organizer> </entry> <entry> <organizer moodCode="EVN" classCode="BATTERY"> <templateId root="16.840.1.998735.03.15.22.4.1" /> <id nullFlavor="NA" /> <code codeSystem="local" code="UA" displayName= "URINALYSIS, ROUTINE" /> <statusCode code="completed" /> <component> <observation moodCode="EVN" classCode="OBS"> <templateId root= "216.840.1.402043.10.22.4.2" /> <id nullFlavor="NA" /> < code codeSystem="local" code="COMU" displayName="UA COMMENT" /> < statusCode code="completed" /> <effectiveTime value="945884830092" /> <value unit="" xsi:type="PQ" value="" /> <referenceRange> <observationRange> <text /> </ observationRange> </referenceRange> </observation> </ component> <component> <observation moodCode="EVN" classCode="OBS"> <templateId root="2.16.840.1.394204.10.4.2" /> <id nullFlavor="NA" /> <code codeSystem="local" code="SPGRU" displayName= "UA SPECIFIC GRAVITY" /> <statusCode code="completed" /> < effectiveTime value="618817846701" /> <value unit="" xsi:type="PQ" value="1.021" /> <referenceRange> <observationRange> <text>1.015-1.025</text> </observationRange> </ referenceRange> </observation> </component> </organizer> </entry > <entry> <organizer moodCode="EVN" classCode="BATTERY"> <templateId root="216.840.1.786143.10..22.4.1" /> <id nullFlavor="NA" /> <code codeSystem="local" code="UAMICRO" displayName="UA MICROSCOPIC" /> < statusCode code="completed" /> <component> <observation moodCode= "EVN" classCode="OBS"> <templateId root="2.16.840.1.664757.10..22.4.2 " /> <id nullFlavor="NA" /> <code codeSystem="local" code= "BACU" displayName="UA BACTERIA" /> <statusCode code="completed" /> <effectiveTime value="993446687010" /> <value unit="" xsi:type= "PQ" value="1+" /> <referenceRange> <observationRange> <text>NEGATIVE</text> </observationRange> </ referenceRange> </observation> </component> <component> <observation moodCode="EVN" classCode="OBS"> <templateId root= "16.840.1.399028.10..22.4.2" /> <id nullFlavor="NA" /> < code codeSystem="local" code="EPIU" displayName="UA EPITHELIAL CELLS" /> <statusCode code="completed" /> <effectiveTime value="701306420116" /> <value unit="epi/hpf" xsi:type="PQ" value="2+" /> < referenceRange> <observationRange> <text>0 - 1+</text> </observationRange> </referenceRange> </observation> </component> <component> <observation moodCode="EVN" classCode ="OBS"> <templateId root="07.12.840.1.731509.10..4.2" /> < id nullFlavor="NA" /> <code codeSystem="local" code="RBCU" displayName= "UA RBC" /> <statusCode code="completed" /> <effectiveTime value="297788580485" /> <value unit="rbc/hpf" xsi:type="PQ" value= "PACKED FIELD" /> <referenceRange> <observationRange> <text>0 - 3</text> </observationRange> </ referenceRange> </observation> </component> <component> <observation moodCode="EVN" classCode="OBS"> <templateId root= "07.12.840.1.403782.10..22.4.2" /> <id nullFlavor="NA" /> < code codeSystem="local" code="UAVOL" displayName="UA VOLUME FOR EXAM" /> <statusCode code="completed" /> <effectiveTime value="679314300844" /> <value unit="mL" xsi:type="PQ" value="12.0" /> < referenceRange> <observationRange> <text>(12mL STD)</ text> </observationRange> </referenceRange> </ observation> </component> <component> <observation moodCode= "EVN" classCode="OBS"> <templateId root="216.840.1.942897.10.4.2 " /> <id nullFlavor="NA" /> <code codeSystem="local" code= "WBCU" displayName="UA WBC" /> <statusCode code="completed" /> <effectiveTime value="463337670361" /> <value unit="wbc/hpf" xsi:type ="PQ" value="20-50" /> <referenceRange> <observationRange> <text>0 - 5</text> </observationRange> </ referenceRange> </observation> </component> <component> <observation moodCode="EVN" classCode="OBS"> <templateId root= "216.840.1.695307.03.15.22.4.2" /> <id nullFlavor="NA" /> < code codeSystem="local" code="WBCCLUMPS" displayName="WBC CLUMPS" /> < statusCode code="completed" /> <effectiveTime value="071061583296" /> <value unit="" xsi:type="PQ" value="PRESENT" /> < referenceRange> <observationRange> <text>NEGATIVE</text > </observationRange> </referenceRange> </observation > </component> </organizer> </entry> <entry> <organizer moodCode= "EVN" classCode="BATTERY"> <templateId root="216.840.1.611243.10...4.1 " /> <id nullFlavor="NA" /> <code codeSystem="local" code="UC" displayName="URINE CULTURE" /> <statusCode code="completed" /> < component> <observation moodCode="EVN" classCode="OBS"> < templateId root="2.16.840.1.285196.10.20.22.4.2" /> <id nullFlavor="NA " /> <code codeSystem="local" code="MB" displayName="Microbiology" /> <statusCode code="completed" /> <effectiveTime value= "404342547212" /> <value xsi:type="ST" value="<pre><b>URINE CULTURE</b > See BelowURINE CULTURE(F) Red Date/Time: 01/31/2017 19:48 Matty Date/Time: 02/02/2017 12:56SOURCE: URINESPEC DESC: CLEAN CATCHTREATMENT OF ASYMPTOMATIC BACTERIURIA IS NOT USUALLYCLINICALLY INDICATED.MIXED POS AND NEG?MIXED GRAM POSITIVE AND NEGATIVE BACTERIAGROUP B STREP?.INCLUDING GROUP B STREPTOCOCCUSJACOBSON [facility] [place] [facility] [place] [address]</pre>" /> <referenceRange> <observationRange> <text /> </observationRange> </referenceRange> </observation> </component> </organizer> </entry> <entry> < organizer moodCode="EVN" classCode="BATTERY"> <templateId root= "2.16.840.1.390604.10..22.4.1" /> <id nullFlavor="NA" /> <code codeSystem="local" code="WET" displayName="WET MOUNT" /> <statusCode code= "completed" /> <component> <observation moodCode="EVN" classCode= "OBS"> <templateId root="2.16.840.1.978198.10.20.22.4.2" /> < id nullFlavor="NA" /> <code codeSystem="local" code="MB" displayName= "Microbiology" /> <statusCode code="completed" /> < effectiveTime value="153610042547" /> <value xsi:type="ST" value="<pre> <b>WET MOUNT</b> See BelowWET MOUNT(F) Red Date/Time: 2016 21:20 Matty Date/Time: 01/31/2017 22:21SOURCE : CERVIXSPEC DESC: CLUE CELLSNO CLUE CELLS SEENTRICHOMONASNO TRICHOMONAS SEENYEASTNO YEAST [address] [address]</pre> " /> <referenceRange> <observationRange> <text /> </observationRange> </referenceRange> </ observation> </component> </organizer> </entry> <entry> <organizer moodCode="EVN" classCode="BATTERY"> <templateId root= "2.16.840.1.124675.10.20.22.4.1" /> <id nullFlavor="NA" /> <code codeSystem="local" code="CHL" displayName="CHLAMYDIA DNA BY PCR" /> < statusCode code="completed" /> <component> <observation moodCode= "EVN" classCode="OBS"> <templateId root="2.16.840.1.282967.10.20.22.4.2 " /> <id nullFlavor="NA" /> <code codeSystem="local" code="MB " displayName="Microbiology" /> <statusCode code="completed" /> <effectiveTime value="617241357670" /> <value xsi:type="ST" value="< pre><b>CHLAMYDIA DNA BY PCR - GONORRHOEA DNA BY PCR</b> See BelowCHLAMYDIA DNA BY PCR(F) Red Date/Time: 01/31/2017 21:20 Matty Date/Time: 02/01/2017 11:13SOURCE: CERVIXSPEC DESC: [address] [address]Aqx BelowGONORRHOEA DNA BY PCR(F) Red Date/Time: 01/31/2017 21:20 Matty Date/ Time: 02/01/2017 11:13SOURCE: CERVIXSPEC DESC: [address] [address]</pre>" /> <referenceRange> <observationRange> <text /> </observationRange> </referenceRange> </observation> </component> </organizer > </entry> <entry> <organizer moodCode="EVN" classCode="BATTERY"> < templateId root="216.840.1.937966.10.20.22.4.1" /> <id nullFlavor="NA" /> <code codeSystem="local" code="WET" displayName="WET MOUNT" /> < statusCode code="completed" /> <component> <observation moodCode= "EVN" classCode="OBS"> <templateId root="07.12.840.1.870376.10..22.4.2 " /> <id nullFlavor="NA" /> <code codeSystem="local" code="MB " displayName="Microbiology" /> <statusCode code="completed" /> <effectiveTime value="458816806966" /> <value xsi:type="ST" value="< pre><b>WET MOUNT</b> See BelowWET SMITH(F) Red Date/Time: 05/2016 19:30 Matty Date/Time: 02/24/2017 21: 47SOURCE: CERVIXSPEC DESC: CLUE CELLSNO CLUE CELLS SEENTRICHOMONASNO TRICHOMONAS SEENWBCRARE WBCYEASTNO YEAST [facility]ENJACO[facility] [place] [address]</pre>" /> <referenceRange> < observationRange> <text /> </observationRange> </referenceRange> </observation> </component> </organizer> </ entry> <entry> <organizer moodCode="EVN" classCode="BATTERY"> < templateId root="07.12.840.1.351188.10.20.22.4.1" /> <id nullFlavor="NA" /> <code codeSystem="local" code="GRAM" displayName="GRAM STAIN - CHLAMYDIA DNA BY PCR" /> <statusCode code="completed" /> <component> < observation moodCode="EVN" classCode="OBS"> <templateId root= "2.16.840.1.855874.10..22.4.2" /> <id nullFlavor="NA" /> < code codeSystem="local" code="MB" displayName="Microbiology" /> < statusCode code="completed" /> <effectiveTime value="" /> <value xsi:type="ST" value="<pre><b>GRAM STAIN - CHLAMYDIA DNA BY PCR - GONORRHOEA DNA BY PCR</b> See BelowGRAM STAIN(F) Red Date/ Time: 02/24/2017 19:30 Matty Date/Time: 02/25/2017 11:14SOURCE: CERVIXSPEC DESC: GRAM STAINRARE NEUTROPHILSNO NORMAL SHAN PRESENTNO ORGANISMS SEEN RESEMBLING NEISSERIA GONORRHOEAE[address] [address]Iin BelowCHLAMYDIA DNA BY PCR(F) Red Date/Time: 02/24/2017 19:30 Matty Date/Time: 02/25/2017 11:14SOURCE: CERVIXSPEC DESC: [address] [address]Tbc BelowGONORRHOEA DNA BY PCR(F) Red Date/Time : 02/24/2017 19:30 Matty Date/Time: 02/25/2017 11: 14SOURCE: CERVIXSPEC DESC: [address] [address]</pre>" /> <referenceRange> < observationRange> <text /> </observationRange> </referenceRange> </observation> </component> </organizer> </ entry> <entry> <organizer moodCode="EVN" classCode="BATTERY"> < templateId root="2.16.840.1.993650.10..22.4.1" /> <id nullFlavor="NA" /> <code codeSystem="local" code="CBCD" displayName="CBC W/DIFF" /> < statusCode code="completed" /> <component> <observation moodCode= "EVN" classCode="OBS"> <templateId root="216.840.1.658115.03.15.224.2 " /> <id nullFlavor="NA" /> <code codeSystem="local" code="BA# " displayName="BASOPHIL #" /> <statusCode code="completed" /> <effectiveTime value="" /> <value unit="k/cumm" xsi:type= "PQ" value="0.0" /> <referenceRange> <observationRange> <text>0.0-0.2</text> </observationRange> </ referenceRange> </observation> </component> <component> <observation moodCode="EVN" classCode="OBS"> <templateId root= "07.12.840.1.315797.03.15.224.2" /> <id nullFlavor="NA" /> < code codeSystem="local" code="BA%" displayName="BASOPHIL %" /> <statusCode code="completed" /> <effectiveTime value="" /> <value unit="%" xsi:type="PQ" value="1" /> < referenceRange> <observationRange> <text>0-1</text> </observationRange> </referenceRange> </observation> </component> <component> <observation moodCode="EVN" classCode= "OBS"> <templateId root="07.12.840.1.938524.03.15.22.4.2" /> < id nullFlavor="NA" /> <code codeSystem="local" code="EO#" displayName= "EOSINOPHIL #" /> <statusCode code="completed" /> < effectiveTime value="731149895907" /> <value unit="k/cumm" xsi:type="PQ " value="0.2" /> <referenceRange> <observationRange> <text>0.1-0.5</text> </observationRange> </ referenceRange> </observation> </component> <component> <observation moodCode="EVN" classCode="OBS"> <templateId root= "16.840.1.923581.10..4.2" /> <id nullFlavor="NA" /> < code codeSystem="local" code="EO%" displayName="EOSINOPHIL %" /> <statusCode code="completed" /> <effectiveTime value="" /> <value unit="%" xsi:type="PQ" value="2" /> < referenceRange> <observationRange> <text>2-4</text> </observationRange> </referenceRange> </observation> </component> <component> <observation moodCode="EVN" classCode= "OBS"> <templateId root="840.1.918245.03.15.22.4.2" /> < id nullFlavor="NA" /> <code codeSystem="local" code="GR#" displayName= "GRANULOCYTE #" /> <statusCode code="completed" /> < effectiveTime value="" /> <value unit="k/cumm" xsi:type="PQ " value="3.8" /> <referenceRange> <observationRange> <text>2.0-9.0</text> </observationRange> </ referenceRange> </observation> </component> <component> <observation moodCode="EVN" classCode="OBS"> <templateId root= "[id number]" /> <id nullFlavor="NA" /> < code codeSystem="local" code="GR%" displayName="GRANULOCYTE %" /> <statusCode code="completed" /> <effectiveTime value=" " /> <value unit="%" xsi:type="PQ" value="53" /> < referenceRange> <observationRange> <text>50-75</text> </observationRange> </referenceRange> </observation> </component> <component> <observation moodCode="EVN" classCode= "OBS"> <templateId root="216.840.1.996409.10..22.4.2" /> < id nullFlavor="NA" /> <code codeSystem="local" code="LY#" displayName= "LYMPHOCYTE #" /> <statusCode code="completed" /> < effectiveTime value="" /> <value unit="k/cumm" xsi:type="PQ " value="2.6" /> <referenceRange> <observationRange> <text>1.0-4.0</text> </observationRange> </ referenceRange> </observation> </component> <component> <observation moodCode="EVN" classCode="OBS"> <templateId root= "2.16.840.1.049249.10..22.4.2" /> <id nullFlavor="NA" /> < code codeSystem="local" code="LY%" displayName="LYMPHOCYTE %" /> <statusCode code="completed" /> <effectiveTime value="" /> <value unit="%" xsi:type="PQ" value="36" /> < interpretationCode codeSystem="local" code="*" /> <referenceRange> <observationRange> <text>20-30</text> </ observationRange> </referenceRange> </observation> </ component> <component> <observation moodCode="EVN" classCode="OBS"> <templateId root="07.12.840.1.312185.10.20.22.4.2" /> <id nullFlavor="NA" /> <code codeSystem="local" code="MCH" displayName= "MEAN CELL HGB" /> <statusCode code="completed" /> < effectiveTime value="" /> <value unit="pg" xsi:type="PQ" value="27.0" /> <referenceRange> <observationRange> <text>27.0-33.0</text> </observationRange> </ referenceRange> </observation> </component> <component> <observation moodCode="EVN" classCode="OBS"> <templateId root= "07.12.840.1.165420.10.22.4.2" /> <id nullFlavor="NA" /> < code codeSystem="local" code="MCHC" displayName="MEAN CELL HGB CONCENTRATION" / > <statusCode code="completed" /> <effectiveTime value= "" /> <value unit="g/dL" xsi:type="PQ" value="31.1" /> <interpretationCode codeSystem="local" code="*" /> < referenceRange> <observationRange> <text>32.0-37.0</text > </observationRange> </referenceRange> </observation > </component> <component> <observation moodCode="EVN" classCode="OBS"> <templateId root="07.12.840.1.244896.10.22.4.2" /> <id nullFlavor="NA" /> <code codeSystem="local" code="MCV" displayName="MEAN CELL VOLUME" /> <statusCode code="completed" /> <effectiveTime value="" /> <value unit="fl" xsi:type= "PQ" value="86.6" /> <referenceRange> <observationRange> <text>80.0-100.0</text> </observationRange> </ referenceRange> </observation> </component> <component> <observation moodCode="EVN" classCode="OBS"> <templateId root= "216.840.1.586004.10..22.4.2" /> <id nullFlavor="NA" /> < code codeSystem="local" code="MO#" displayName="MONOCYTE #" /> < statusCode code="completed" /> <effectiveTime value="" /> <value unit="k/cumm" xsi:type="PQ" value="0.6" /> < referenceRange> <observationRange> <text>0.1-1.0</text> </observationRange> </referenceRange> </observation > </component> <component> <observation moodCode="EVN" classCode="OBS"> <templateId root="07.12.840.1.360448.10...4.2" /> <id nullFlavor="NA" /> <code codeSystem="local" code="MO% " displayName="MONOCYTE %" /> <statusCode code="completed" /> <effectiveTime value="" /> <value unit="%" xsi: type="PQ" value="8" /> <interpretationCode codeSystem="local" code="*" /> <referenceRange> <observationRange> <text>4- 6</text> </observationRange> </referenceRange> </ observation> </component> <component> <observation moodCode= "EVN" classCode="OBS"> <templateId root="16.840.1.481182.10..22.4.2 " /> <id nullFlavor="NA" /> <code codeSystem="local" code= "MPVT" displayName="MEAN PLATELET VOLUME" /> <statusCode code= "completed" /> <effectiveTime value="" /> <value unit="fl" xsi:type="PQ" value="9.1" /> <referenceRange> < observationRange> <text>8.5-10.9</text> </ observationRange> </referenceRange> </observation> </ component> <component> <observation moodCode="EVN" classCode="OBS"> <templateId root="216.840.1.535308.10.20.22.4.2" /> <id nullFlavor="NA" /> <code codeSystem="local" code="RBC" displayName=" RED BLOOD CELL" /> <statusCode code="completed" /> < effectiveTime value="" /> <value unit="m/cumm" xsi:type="PQ " value="4.34" /> <referenceRange> <observationRange> <text>4.00-6.00</text> </observationRange> </ referenceRange> </observation> </component> <component> <observation moodCode="EVN" classCode="OBS"> <templateId root= "16.840.1.662554.10.20.22.4.2" /> <id nullFlavor="NA" /> < code codeSystem="local" code="RDW" displayName="RED CELL DISTRIBUTION WIDTH" /> <statusCode code="completed" /> <effectiveTime value= "" /> <value unit="%" xsi:type="PQ" value="13.2" /> <referenceRange> <observationRange> <text>11.0- 15.6</text> </observationRange> </referenceRange> </ observation> </component> <component> <observation moodCode= "EVN" classCode="OBS"> <templateId root="16.840.1.979029.10.20.22.4.2 " /> <id nullFlavor="NA" /> <code codeSystem="local" code="WBC " displayName="WHITE BLOOD CELL" /> <statusCode code="completed" /> <effectiveTime value="" /> <value unit="k/cumm" xsi: type="PQ" value="7.2" /> <referenceRange> <observationRange > <text>5.0-10.0</text> </observationRange> </ referenceRange> </observation> </component> <component> <observation moodCode="EVN" classCode="OBS"> <templateId root= "07.12.840.1.529963.10.22.4.2" /> <id nullFlavor="NA" /> < code codeSystem="local" code="HGBT" displayName="HEMOGLOBIN" /> < statusCode code="completed" /> <effectiveTime value="" /> <value unit="gm/dL" xsi:type="PQ" value="11.7" /> < interpretationCode codeSystem="local" code="*" /> <referenceRange> <observationRange> <text>12.0-16.0</text> </ observationRange> </referenceRange> </observation> </ component> <component> <observation moodCode="EVN" classCode="OBS"> <templateId root="07.12.840.1.999271.10.20.22.4.2" /> <id nullFlavor="NA" /> <code codeSystem="local" code="HCTT" displayName= "HEMATOCRIT" /> <statusCode code="completed" /> < effectiveTime value="" /> <value unit="%" xsi:type="PQ " value="37.6" /> <referenceRange> <observationRange> <text>37.0-47.0</text> </observationRange> </ referenceRange> </observation> </component> <component> <observation moodCode="EVN" classCode="OBS"> <templateId root= "07.12.840.1.475965.10.20.22.4.2" /> <id nullFlavor="NA" /> < code codeSystem="local" code="NRBC%" displayName="NRBC %" /> < statusCode code="completed" /> <effectiveTime value="" /> <value unit="/100WBC" xsi:type="PQ" value="0.0" /> < referenceRange> <observationRange> <text>0.0-0.0</text> </observationRange> </referenceRange> </observation > </component> <component> <observation moodCode="EVN" classCode="OBS"> <templateId root="07.12.840.1.759549.10...4.2" /> <id nullFlavor="NA" /> <code codeSystem="local" code="NRBC#" displayName="NRBC #" /> <statusCode code="completed" /> < effectiveTime value="" /> <value unit="k/cumm" xsi:type="PQ " value="0.00" /> <interpretationCode codeSystem="local" code="*" /> <referenceRange> <observationRange> <text>0.03- 0.11</text> </observationRange> </referenceRange> </ observation> </component> <component> <observation moodCode= "EVN" classCode="OBS"> <templateId root="07.12.840.1.863335.10..22.4.2 " /> <id nullFlavor="NA" /> <code codeSystem="local" code= "PLTT" displayName="PLATELET COUNT" /> <statusCode code="completed" /> <effectiveTime value="" /> <value unit="k/cumm" xsi:type="PQ" value="278" /> <referenceRange> < observationRange> <text>150-400</text> </ observationRange> </referenceRange> </observation> </ component> <component> <observation moodCode="EVN" classCode="OBS"> <templateId root="216.840.1.412456.10.20.22.4.2" /> <id nullFlavor="NA" /> <code codeSystem="local" code="IG%" displayName= "IMMATURE GRANULOCYTE %" /> <statusCode code="completed" /> <effectiveTime value="" /> <value unit="%" xsi:type= "PQ" value="0.3" /> <referenceRange> <observationRange> <text>0.0-0.6</text> </observationRange> </ referenceRange> </observation> </component> <component> <observation moodCode="EVN" classCode="OBS"> <templateId root= "216.840.1.154230.10.20.22.4.2" /> <id nullFlavor="NA" /> < code codeSystem="local" code="IG#" displayName="IMMATURE GRANULOCYTE #" /> <statusCode code="completed" /> <effectiveTime value=" " /> <value unit="k/cumm" xsi:type="PQ" value="0.02" /> < referenceRange> <observationRange> <text>0.00-0.09</text > </observationRange> </referenceRange> </observation > </component> </organizer> </entry> <entry> <organizer moodCode= "EVN" classCode="BATTERY"> <templateId root="216.840.1.809180.10...4.1 " /> <id nullFlavor="NA" /> <code codeSystem="local" code="PT" displayName="PROTHROMBIN TIME WITH INR" /> <statusCode code="completed" /> <component> <observation moodCode="EVN" classCode="OBS"> < templateId root="16.840.1.226796...4.2" /> <id nullFlavor="NA " /> <code codeSystem="local" code="INRX" displayName="INTERNATIONAL NORMAL RATIO" /> <statusCode code="completed" /> < effectiveTime value="" /> <value unit="" xsi:type="PQ" value="1.1" /> <referenceRange> <observationRange> <text>0.9-1.1</text> </observationRange> </ referenceRange> </observation> </component> <component> <observation moodCode="EVN" classCode="OBS"> <templateId root= "216.840.1.588098.03.15.22.4.2" /> <id nullFlavor="NA" /> < code codeSystem="local" code="PTPAT" displayName="PROTHROMBIN TIME" /> <statusCode code="completed" /> <effectiveTime value="" /> <value unit="sec" xsi:type="PQ" value="12.5" /> < referenceRange> <observationRange> <text>10.0-12.8</text > </observationRange> </referenceRange> </observation > </component> </organizer> </entry> <entry> <organizer moodCode= "EVN" classCode="BATTERY"> <templateId root="216.840.1.422885.03.15.22.4.1 " /> <id nullFlavor="NA" /> <code codeSystem="local" code="METABC" displayName="METABOLIC PANEL, COMPREHN" /> <statusCode code="completed" /> <component> <observation moodCode="EVN" classCode="OBS"> < templateId root="07.12.840.1.175567...4.2" /> <id nullFlavor="NA " /> <code codeSystem="local" code="K" displayName="POTASSIUM" /> <statusCode code="completed" /> <effectiveTime value=" " /> <value unit="mmol/L" xsi:type="PQ" value="3.5" /> < referenceRange> <observationRange> <text>3.5-5.3</text> </observationRange> </referenceRange> </observation > </component> <component> <observation moodCode="EVN" classCode="OBS"> <templateId root="840.1.705139.03.15.22.4.2" /> <id nullFlavor="NA" /> <code codeSystem="local" code="eGFR" displayName="EST GFR (MDRD)" /> <statusCode code="completed" /> <effectiveTime value="" /> <value unit="mL/min" xsi:type ="PQ" value="> 60" /> <referenceRange> <observationRange > <text>> 59</text> </observationRange> </ referenceRange> </observation> </component> <component> <observation moodCode="EVN" classCode="OBS"> <templateId root= "07.12.840.1.811720.03.15.22.4.2" /> <id nullFlavor="NA" /> < code codeSystem="local" code="GAP" displayName="ANION GAP" /> < statusCode code="completed" /> <effectiveTime value="" /> <value unit="mmol/L" xsi:type="PQ" value="9" /> < referenceRange> <observationRange> <text>5-15</text> </observationRange> </referenceRange> </observation> </component> <component> <observation moodCode="EVN" classCode= "OBS"> <templateId root="216.840.1.370918.10..22.4.2" /> < id nullFlavor="NA" /> <code codeSystem="local" code="eCrCl" displayName ="EST CrCl (CG)" /> <statusCode code="completed" /> < effectiveTime value="" /> <value unit="mL/min" xsi:type="PQ " value="> 60" /> <referenceRange> <observationRange> <text>> 59</text> </observationRange> </ referenceRange> </observation> </component> <component> <observation moodCode="EVN" classCode="OBS"> <templateId root= "07.12.840.1.308550.10..22.4.2" /> <id nullFlavor="NA" /> < code codeSystem="local" code="GLU" displayName="GLUCOSE" /> < statusCode code="completed" /> <effectiveTime value="" /> <value unit="mg/dL" xsi:type="PQ" value="83" /> < referenceRange> <observationRange> <text>70-99</text> </observationRange> </referenceRange> </observation> </component> <component> <observation moodCode="EVN" classCode= "OBS"> <templateId root="16.840.1.619641.10..4.2" /> < id nullFlavor="NA" /> <code codeSystem="local" code="CA" displayName= "CALCIUM" /> <statusCode code="completed" /> <effectiveTime value="" /> <value unit="mg/dL" xsi:type="PQ" value="8.5" / > <referenceRange> <observationRange> <text>8.5 -10.1</text> </observationRange> </referenceRange> </ observation> </component> <component> <observation moodCode= "EVN" classCode="OBS"> <templateId root="2.16.840.1.444799.03.15.22.4.2 " /> <id nullFlavor="NA" /> <code codeSystem="local" code="BUN " displayName="BLOOD UREA NITROGEN" /> <statusCode code="completed" /> <effectiveTime value="" /> <value unit="mg/dL" xsi:type="PQ" value="14" /> <referenceRange> < observationRange> <text>7-20</text> </observationRange> </referenceRange> </observation> </component> < component> <observation moodCode="EVN" classCode="OBS"> < templateId root="2.16.840.1.453831.10..4.2" /> <id nullFlavor="NA " /> <code codeSystem="local" code="CREAT" displayName="CREATININE" /> <statusCode code="completed" /> <effectiveTime value= "" /> <value unit="mg/dL" xsi:type="PQ" value="0.8" /> <referenceRange> <observationRange> <text>0.6-1.0< /text> </observationRange> </referenceRange> </ observation> </component> <component> <observation moodCode= "EVN" classCode="OBS"> <templateId root="216.840.1.893822.10..22.4.2 " /> <id nullFlavor="NA" /> <code codeSystem="local" code="NA " displayName="SODIUM" /> <statusCode code="completed" /> < effectiveTime value="" /> <value unit="mmol/L" xsi:type="PQ " value="138" /> <referenceRange> <observationRange> <text>135-148</text> </observationRange> </ referenceRange> </observation> </component> <component> <observation moodCode="EVN" classCode="OBS"> <templateId root= "216.840.1.329531.10..4.2" /> <id nullFlavor="NA" /> < code codeSystem="local" code="CL" displayName="CHLORIDE" /> < statusCode code="completed" /> <effectiveTime value="" /> <value unit="mmol/L" xsi:type="PQ" value="101" /> < referenceRange> <observationRange> <text>98-110</text> </observationRange> </referenceRange> </observation> </component> <component> <observation moodCode="EVN" classCode ="OBS"> <templateId root="16.840.1.888673.10.22.4.2" /> < id nullFlavor="NA" /> <code codeSystem="local" code="AST" displayName= "AST/SGOT" /> <statusCode code="completed" /> <effectiveTime value="" /> <value unit="Units/L" xsi:type="PQ" value="23" /> <referenceRange> <observationRange> <text>10 -37</text> </observationRange> </referenceRange> </ observation> </component> <component> <observation moodCode= "EVN" classCode="OBS"> <templateId root="216.840.1.466109.10...4.2 " /> <id nullFlavor="NA" /> <code codeSystem="local" code="ALT " displayName="ALT/SGPT" /> <statusCode code="completed" /> < effectiveTime value="" /> <value unit="Units/L" xsi:type= "PQ" value="24" /> <referenceRange> <observationRange> <text>< 66</text> </observationRange> </ referenceRange> </observation> </component> <component> <observation moodCode="EVN" classCode="OBS"> <templateId root= "216.840.1.915037.10..4.2" /> <id nullFlavor="NA" /> < code codeSystem="local" code="CO2" displayName="CARBON DIOXIDE" /> < statusCode code="completed" /> <effectiveTime value="" /> <value unit="mmol/L" xsi:type="PQ" value="28" /> < referenceRange> <observationRange> <text>21-32</text> </observationRange> </referenceRange> </observation> </component> <component> <observation moodCode="EVN" classCode= "OBS"> <templateId root="16.840.1.442962.10...4.2" /> < id nullFlavor="NA" /> <code codeSystem="local" code="TP" displayName= "TOTAL PROTEIN" /> <statusCode code="completed" /> < effectiveTime value="" /> <value unit="gm/dL" xsi:type="PQ " value="7.9" /> <referenceRange> <observationRange> <text>6.4-8.2</text> </observationRange> </ referenceRange> </observation> </component> <component> <observation moodCode="EVN" classCode="OBS"> <templateId root= "16.840.1.041424.10..4.2" /> <id nullFlavor="NA" /> < code codeSystem="local" code="ALB" displayName="ALBUMIN" /> < statusCode code="completed" /> <effectiveTime value="" /> <value unit="gm/dL" xsi:type="PQ" value="3.9" /> < referenceRange> <observationRange> <text>3.4-5.0</text> </observationRange> </referenceRange> </observation > </component> <component> <observation moodCode="EVN" classCode="OBS"> <templateId root="07.12.840.1.430398.03.15.22.4.2" /> <id nullFlavor="NA" /> <code codeSystem="local" code="BILTOT" displayName="BILI TOTAL" /> <statusCode code="completed" /> < effectiveTime value="" /> <value unit="mg/dL" xsi:type="PQ " value="0.1" /> <referenceRange> <observationRange> <text>0.0-1.0</text> </observationRange> </ referenceRange> </observation> </component> <component> <observation moodCode="EVN" classCode="OBS"> <templateId root= "07.12.840.1.956603...4.2" /> <id nullFlavor="NA" /> < code codeSystem="local" code="ALKP" displayName="ALKALINE PHOSPHATASE TOTAL" /> <statusCode code="completed" /> <effectiveTime value= "" /> <value unit="IU/L" xsi:type="PQ" value="89" /> <referenceRange> <observationRange> <text>45-117</ text> </observationRange> </referenceRange> </ observation> </component> </organizer> </entry> <entry> <organizer moodCode="EVN" classCode="BATTERY"> <templateId root= "07.12.840.1.374782.10..4.1" /> <id nullFlavor="NA" /> <code codeSystem="local" code="iCHEM8" displayName="CHEM/HEM PROFILE-BEDSIDE" /> <statusCode code="completed" /> <component> <observation moodCode= "EVN" classCode="OBS"> <templateId root="07.12.840.1.821252...4.2 " /> <id nullFlavor="NA" /> <code codeSystem="local" code="K" displayName="POTASSIUM" /> <statusCode code="completed" /> < effectiveTime value="" /> <value unit="mmol/L" xsi:type="PQ " value="3.6" /> <referenceRange> <observationRange> <text>3.5-5.3</text> </observationRange> </ referenceRange> </observation> </component> <component> <observation moodCode="EVN" classCode="OBS"> <templateId root= "07.12.840.1.534102.10..4.2" /> <id nullFlavor="NA" /> < code codeSystem="local" code="CMETHOD" displayName="METHOD" /> < statusCode code="completed" /> <effectiveTime value="" /> <value unit="" xsi:type="PQ" value="Bedside" /> < referenceRange> <observationRange> <text /> < /observationRange> </referenceRange> </observation> </ component> <component> <observation moodCode="EVN" classCode="OBS"> <templateId root="07.12.840.1.958804.03.15.22.4.2" /> <id nullFlavor="NA" /> <code codeSystem="local" code="GAP" displayName= "ANION GAP" /> <statusCode code="completed" /> <effectiveTime value="" /> <value unit="mmol/L" xsi:type="PQ" value="17" / > <referenceRange> <observationRange> <text>10- 20</text> </observationRange> </referenceRange> </ observation> </component> <component> <observation moodCode= "EVN" classCode="OBS"> <templateId root="840.1.587965.03.15.22.4.2 " /> <id nullFlavor="NA" /> <code codeSystem="local" code= "HMETHOD" displayName="METHOD" /> <statusCode code="completed" /> <effectiveTime value="" /> <value unit="" xsi:type="PQ " value="Bedside" /> <referenceRange> <observationRange> <text /> </observationRange> </referenceRange> </observation> </component> <component> <observation moodCode="EVN" classCode="OBS"> <templateId root= "07.12.840.1.429975.03.15.22.4.2" /> <id nullFlavor="NA" /> < code codeSystem="local" code="GLU" displayName="GLUCOSE" /> < statusCode code="completed" /> <effectiveTime value="" /> <value unit="mg/dL" xsi:type="PQ" value="85" /> < referenceRange> <observationRange> <text>70-99</text> </observationRange> </referenceRange> </observation> </component> <component> <observation moodCode="EVN" classCode= "OBS"> <templateId root="216.840.1.648642.10...4.2" /> < id nullFlavor="NA" /> <code codeSystem="local" code="BUN" displayName= "BLOOD UREA NITROGEN" /> <statusCode code="completed" /> < effectiveTime value="[id number]" /> <value unit="mg/dL" xsi:type="PQ " value="14" /> <referenceRange> <observationRange> <text>7-20</text> </observationRange> </referenceRange > </observation> </component> <component> <observation moodCode="EVN" classCode="OBS"> <templateId root= "07.12.840.1.985334...4.2" /> <id nullFlavor="NA" /> < code codeSystem="local" code="CREAT" displayName="CREATININE" /> < statusCode code="completed" /> <effectiveTime value="[id number]" /> <value unit="mg/dL" xsi:type="PQ" value="0.7" /> < referenceRange> <observationRange> <text>0.6-1.0</text> </observationRange> </referenceRange> </observation > </component> <component> <observation moodCode="EVN" classCode="OBS"> <templateId root="07.12.840.1.198059...4.2" /> <id nullFlavor="NA" /> <code codeSystem="local" code="HGBT" displayName="HEMOGLOBIN" /> <statusCode code="completed" /> < effectiveTime value="" /> <value unit="gm/dL" xsi:type="PQ " value="13.3" /> <referenceRange> <observationRange> <text>12.0-16.0</text> </observationRange> </ referenceRange> </observation> </component> <component> <observation moodCode="EVN" classCode="OBS"> <templateId root= "216.840.1.294983.10.22.4.2" /> <id nullFlavor="NA" /> < code codeSystem="local" code="HCTT" displayName="HEMATOCRIT" /> < statusCode code="completed" /> <effectiveTime value="" /> <value unit="%" xsi:type="PQ" value="39.0" /> < referenceRange> <observationRange> <text>37.0-47.0</text > </observationRange> </referenceRange> </observation > </component> <component> <observation moodCode="EVN" classCode="OBS"> <templateId root="216.840.1.642353.10..4.2" /> <id nullFlavor="NA" /> <code codeSystem="local" code="NA" displayName="SODIUM" /> <statusCode code="completed" /> < effectiveTime value="" /> <value unit="mmol/L" xsi:type="PQ " value="140" /> <referenceRange> <observationRange> <text>135-148</text> </observationRange> </ referenceRange> </observation> </component> <component> <observation moodCode="EVN" classCode="OBS"> <templateId root= "216.840.1.675680.10.20.22.4.2" /> <id nullFlavor="NA" /> < code codeSystem="local" code="CL" displayName="CHLORIDE" /> < statusCode code="completed" /> <effectiveTime value="" /> <value unit="mmol/L" xsi:type="PQ" value="101" /> < referenceRange> <observationRange> <text>98-110</text> </observationRange> </referenceRange> </observation> </component> <component> <observation moodCode="EVN" classCode ="OBS"> <templateId root="216.840.1.186625.10.20.22.4.2" /> < id nullFlavor="NA" /> <code codeSystem="local" code="CO2" displayName= "CARBON DIOXIDE" /> <statusCode code="completed" /> < effectiveTime value="" /> <value unit="mmol/L" xsi:type="PQ " value="27" /> <referenceRange> <observationRange> <text>21-32</text> </observationRange> </ referenceRange> </observation> </component> <component> <observation moodCode="EVN" classCode="OBS"> <templateId root= "16.840.1.566094.10..22.4.2" /> <id nullFlavor="NA" /> < code codeSystem="local" code="CAION" displayName="CALCIUM IONIZED" /> < statusCode code="completed" /> <effectiveTime value="" /> <value unit="mg/dL" xsi:type="PQ" value="4.8" /> < referenceRange> <observationRange> <text>4.5-5.3</text> </observationRange> </referenceRange> </observation > </component> </organizer> </entry> <entry> <organizer moodCode= "EVN" classCode="BATTERY"> <templateId root="07.12.840.1.826413.10..22.4.1 " /> <id nullFlavor="NA" /> <code codeSystem="local" code="PREGU" displayName="UR TEST" /> <statusCode code="completed" /> < component> <observation moodCode="EVN" classCode="OBS"> < templateId root="07.12.840.1.206125.03.15.22.4.2" /> <id nullFlavor="NA " /> <code codeSystem="local" code="PREGU" displayName="UR TEST" /> <statusCode code="completed" /> <effectiveTime value= "[id number]" /> <value unit="" xsi:type="PQ" value="NEGATIVE" /> <referenceRange> <observationRange> <text>NEGATIVE </text> </observationRange> </referenceRange> </ observation> </component> </organizer> </entry> <entry> <organizer moodCode="EVN" classCode="BATTERY"> <templateId root= "07.12.840.1.043613.03.15.22.4.1" /> <id nullFlavor="NA" /> <code codeSystem="local" code="UA" displayName="URINALYSIS, ROUTINE" /> < statusCode code="completed" /> <component> <observation moodCode= "EVN" classCode="OBS"> <templateId root="216.840.1.976759.10..22.4.2 " /> <id nullFlavor="NA" /> <code codeSystem="local" code= "LEUESU" displayName="UA LEUKOCYTE ESTERASE DIPSTICK" /> <statusCode code="completed" /> <effectiveTime value="[id number]" /> < value unit="" xsi:type="PQ" value="1+" /> <interpretationCode codeSystem="local" code="*" /> <referenceRange> < observationRange> <text>NEGATIVE</text> </ observationRange> </referenceRange> </observation> </ component> <component> <observation moodCode="EVN" classCode="OBS"> <templateId root="07.12.840.1.378035.10.20.22.4.2" /> <id nullFlavor="NA" /> <code codeSystem="local" code="NITRIU" displayName= "UA NITRITE DIPSTICK" /> <statusCode code="completed" /> < effectiveTime value="" /> <value unit="" xsi:type="PQ" value="POSITIVE" /> <interpretationCode codeSystem="local" code="*" /> <referenceRange> <observationRange> <text> NEGATIVE</text> </observationRange> </referenceRange> </observation> </component> <component> <observation moodCode ="EVN" classCode="OBS"> <templateId root= "840.1.084098.03.15.22.4.2" /> <id nullFlavor="NA" /> < code codeSystem="local" code="PROTEIU" displayName="UA PROTEIN DIPSTICK" /> <statusCode code="completed" /> <effectiveTime value= "" /> <value unit="" xsi:type="PQ" value="TRACE" /> <interpretationCode codeSystem="local" code="*" /> <referenceRange> <observationRange> <text>NEGATIVE</text> </ observationRange> </referenceRange> </observation> </ component> <component> <observation moodCode="EVN" classCode="OBS"> <templateId root="07.12.840.1.446476.10..4.2" /> <id nullFlavor="NA" /> <code codeSystem="local" code="DGLUU" displayName= "UA GLUCOSE DIPSTICK" /> <statusCode code="completed" /> < effectiveTime value="" /> <value unit="" xsi:type="PQ" value="NEGATIVE" /> <referenceRange> <observationRange> <text>NEGATIVE</text> </observationRange> </ referenceRange> </observation> </component> <component> <observation moodCode="EVN" classCode="OBS"> <templateId root= "07.12.840.1.326779.10...4.2" /> <id nullFlavor="NA" /> < code codeSystem="local" code="KETONU" displayName="UA KETONE DIPSTICK" /> <statusCode code="completed" /> <effectiveTime value=" " /> <value unit="" xsi:type="PQ" value="TRACE" /> < interpretationCode codeSystem="local" code="*" /> <referenceRange> <observationRange> <text>NEGATIVE</text> </ observationRange> </referenceRange> </observation> </ component> <component> <observation moodCode="EVN" classCode="OBS"> <templateId root="07.12.840.1.528211.10..22.4.2" /> <id nullFlavor="NA" /> <code codeSystem="local" code="UROBILU" displayName= "UA UROBILINOGEN DIPSTICK" /> <statusCode code="completed" /> <effectiveTime value="" /> <value unit="" xsi:type="PQ" value="NORMAL" /> <referenceRange> <observationRange> <text>NORMAL</text> </observationRange> </ referenceRange> </observation> </component> <component> <observation moodCode="EVN" classCode="OBS"> <templateId root= ".1.091444.10..22.4.2" /> <id nullFlavor="NA" /> < code codeSystem="local" code="BILU" displayName="UA BILIRUBIN DIPSTICK" /> <statusCode code="completed" /> <effectiveTime value=" " /> <value unit="" xsi:type="PQ" value="POSITIVE" /> < interpretationCode codeSystem="local" code="*" /> <referenceRange> <observationRange> <text>NEGATIVE</text> </ observationRange> </referenceRange> </observation> </ component> <component> <observation moodCode="EVN" classCode="OBS"> <templateId root="07.12.840.1.590901.10..4.2" /> <id nullFlavor="NA" /> <code codeSystem="local" code="LON" displayName="UA BLOOD DIPSTICK" /> <statusCode code="completed" /> < effectiveTime value="" /> <value unit="" xsi:type="PQ" value="4+" /> <interpretationCode codeSystem="local" code="*" /> <referenceRange> <observationRange> <text>NEGATIVE</ text> </observationRange> </referenceRange> </ observation> </component> <component> <observation moodCode= "EVN" classCode="OBS"> <templateId root="16.840.1.175736.10..4.2 " /> <id nullFlavor="NA" /> <code codeSystem="local" code= "SPGRU" displayName="UA SPECIFIC GRAVITY" /> <statusCode code= "completed" /> <effectiveTime value="[id number]" /> <value unit="" xsi:type="PQ" value="1.027" /> <interpretationCode codeSystem= "local" code="*" /> <referenceRange> <observationRange> <text>1.015-1.025</text> </observationRange> </ referenceRange> </observation> </component> <component> <observation moodCode="EVN" classCode="OBS"> <templateId root= "07.12.840.1.689468.10.22.4.2" /> <id nullFlavor="NA" /> < code codeSystem="local" code="WILLOW" displayName="UR PH" /> <statusCode code="completed" /> <effectiveTime value="" /> < value unit="" xsi:type="PQ" value="6.0" /> <referenceRange> <observationRange> <text>5.0-7.0</text> </ observationRange> </referenceRange> </observation> </ component> </organizer> </entry> <entry> <organizer moodCode="EVN" classCode="BATTERY"> <templateId root="840.1.581887.03.15.22.4.1" /> <id nullFlavor="NA" /> <code codeSystem="local" code="UAMICRO" displayName="UA MICROSCOPIC" /> <statusCode code="completed" /> < component> <observation moodCode="EVN" classCode="OBS"> < templateId root="07.12.840.1.506668.1022.4.2" /> <id nullFlavor="NA " /> <code codeSystem="local" code="BACU" displayName="UA BACTERIA" /> <statusCode code="completed" /> <effectiveTime value= "" /> <value unit="" xsi:type="PQ" value="4+" /> < interpretationCode codeSystem="local" code="*" /> <referenceRange> <observationRange> <text>NEGATIVE</text> </ observationRange> </referenceRange> </observation> </ component> <component> <observation moodCode="EVN" classCode="OBS"> <templateId root="07.12.840.1.860278.10.4.2" /> <id nullFlavor="NA" /> <code codeSystem="local" code="EPIU" displayName=" UA EPITHELIAL CELLS" /> <statusCode code="completed" /> < effectiveTime value="" /> <value unit="epi/hpf" xsi:type= "PQ" value="2+" /> <interpretationCode codeSystem="local" code="*" /> <referenceRange> <observationRange> <text>0 - 1 +</text> </observationRange> </referenceRange> </ observation> </component> <component> <observation moodCode= "EVN" classCode="OBS"> <templateId root="07.12.840.1.182909.03.15.22.4.2 " /> <id nullFlavor="NA" /> <code codeSystem="local" code= "RBCU" displayName="UA RBC" /> <statusCode code="completed" /> <effectiveTime value="" /> <value unit="rbc/hpf" xsi:type ="PQ" value=">100" /> <interpretationCode codeSystem="local" code="* " /> <referenceRange> <observationRange> <text> 0 - 3</text> </observationRange> </referenceRange> </ observation> </component> <component> <observation moodCode= "EVN" classCode="OBS"> <templateId root="07.12.840.1.600921.03.15.22.4.2 " /> <id nullFlavor="NA" /> <code codeSystem="local" code= "UAVOL" displayName="UA VOLUME FOR EXAM" /> <statusCode code="completed " /> <effectiveTime value="" /> <value unit="mL" xsi:type="PQ" value="12.0" /> <referenceRange> < observationRange> <text>(12mL STD)</text> </ observationRange> </referenceRange> </observation> </ component> <component> <observation moodCode="EVN" classCode="OBS"> <templateId root="216.840.1.206626.10...4.2" /> <id nullFlavor="NA" /> <code codeSystem="local" code="WBCU" displayName=" UA WBC" /> <statusCode code="completed" /> <effectiveTime value="" /> <value unit="wbc/hpf" xsi:type="PQ" value="20- 50" /> <interpretationCode codeSystem="local" code="*" /> < referenceRange> <observationRange> <text>0 - 5</text> </observationRange> </referenceRange> </observation> </component> <component> <observation moodCode="EVN" classCode= "OBS"> <templateId root="2.16.840.1.644625.10...4.2" /> < id nullFlavor="NA" /> <code codeSystem="local" code="WBCCLUMPS" displayName="WBC CLUMPS" /> <statusCode code="completed" /> < effectiveTime value="" /> <value unit="" xsi:type="PQ" value="PRESENT" /> <interpretationCode codeSystem="local" code="*" /> <referenceRange> <observationRange> <text> NEGATIVE</text> </observationRange> </referenceRange> </observation> </component> </organizer> </entry> <entry> < organizer moodCode="EVN" classCode="BATTERY"> <templateId root= "2.16.840.1.546819.10.20.22.4.1" /> <id nullFlavor="NA" /> <code codeSystem="local" code="UC" displayName="URINE CULTURE" /> <statusCode code="completed" /> <component> <observation moodCode="EVN" classCode="OBS"> <templateId root="2.16.840.1.708737.10.20.22.4.2" /> <id nullFlavor="NA" /> <code codeSystem="local" code="MB" displayName="Microbiology" /> <statusCode code="completed" /> <effectiveTime value="456259943556" /> <value xsi:type="ST" value="< pre><b>URINE CULTURE</b> See BelowURINE CULTURE(F) Red Date/Time: 02/24/2017 22:08 Matty Date/Time: 02/26/2017 06:56SOURCE: URINESPEC DESC: CLEAN CATCHTREATMENT OF ASYMPTOMATIC BACTERIURIA IS NOT USUALLYCLINICALLY INDICATED.Organism #1 ESCHERICHIA COLICOLONY COUNT >100,000 CFU/ML InterpAMPICILLIN VITEK >=32 RAMPICILLIN/SULBACTAM VITEK 16 ICEFAZOLIN VITEK <=4 SCEFEPIME VITEK <=1 SCEFTRIAXONE VITEK <=1 SGENTAMICIN VITEK <=1 SNITROFURANTOIN VITEK 64 IPIPERACILLIN/TAZOBZCTAM VITEK <=4 STRIMETH/SULFA VITEK >=[address] [facility] [place] [address]< /pre>" /> <referenceRange> <observationRange> <text /> </observationRange> </referenceRange> </ observation> </component> </organizer> </entry> <entry> <organizer moodCode="EVN" classCode="BATTERY"> <templateId root= "07.12.840.1.009628.10.4.1" /> <id nullFlavor="NA" /> <code codeSystem="local" code="CBCD" displayName="CBC W/DIFF" /> <statusCode code ="completed" /> <component> <observation moodCode="EVN" classCode= "OBS"> <templateId root="840.1.625924.03.15.224.2" /> < id nullFlavor="NA" /> <code codeSystem="local" code="BA#" displayName= "BASOPHIL #" /> <statusCode code="completed" /> < effectiveTime value="973902333509" /> <value unit="k/cumm" xsi:type="PQ " value="0.0" /> <referenceRange> <observationRange> <text>0.0-0.2</text> </observationRange> </ referenceRange> </observation> </component> <component> <observation moodCode="EVN" classCode="OBS"> <templateId root= "840.1.218990.03.15.224.2" /> <id nullFlavor="NA" /> < code codeSystem="local" code="BA%" displayName="BASOPHIL %" /> <statusCode code="completed" /> <effectiveTime value="825527234667" /> <value unit="%" xsi:type="PQ" value="1" /> < referenceRange> <observationRange> <text>0-1</text> </observationRange> </referenceRange> </observation> </component> <component> <observation moodCode="EVN" classCode= "OBS"> <templateId root="07.12.840.1.779608.03.15.22.4.2" /> < id nullFlavor="NA" /> <code codeSystem="local" code="EO#" displayName= "EOSINOPHIL #" /> <statusCode code="completed" /> < effectiveTime value="" /> <value unit="k/cumm" xsi:type="PQ " value="0.1" /> <referenceRange> <observationRange> <text>0.1-0.5</text> </observationRange> </ referenceRange> </observation> </component> <component> <observation moodCode="EVN" classCode="OBS"> <templateId root= "2.16.840.1.297029...4.2" /> <id nullFlavor="NA" /> < code codeSystem="local" code="EO%" displayName="EOSINOPHIL %" /> <statusCode code="completed" /> <effectiveTime value="" /> <value unit="%" xsi:type="PQ" value="2" /> < referenceRange> <observationRange> <text>2-4</text> </observationRange> </referenceRange> </observation> </component> <component> <observation moodCode="EVN" classCode= "OBS"> <templateId root="2.16.840.1.324719.03.15..4.2" /> < id nullFlavor="NA" /> <code codeSystem="local" code="GR#" displayName= "GRANULOCYTE #" /> <statusCode code="completed" /> < effectiveTime value="" /> <value unit="k/cumm" xsi:type="PQ " value="4.0" /> <referenceRange> <observationRange> <text>2.0-9.0</text> </observationRange> </ referenceRange> </observation> </component> <component> <observation moodCode="EVN" classCode="OBS"> <templateId root= "16.840.1.782712.10..22.4.2" /> <id nullFlavor="NA" /> < code codeSystem="local" code="GR%" displayName="GRANULOCYTE %" /> <statusCode code="completed" /> <effectiveTime value=" " /> <value unit="%" xsi:type="PQ" value="65" /> < referenceRange> <observationRange> <text>50-75</text> </observationRange> </referenceRange> </observation> </component> <component> <observation moodCode="EVN" classCode= "OBS"> <templateId root="16.840.1.050465.03.15.22.4.2" /> < id nullFlavor="NA" /> <code codeSystem="local" code="LY#" displayName= "LYMPHOCYTE #" /> <statusCode code="completed" /> < effectiveTime value="" /> <value unit="k/cumm" xsi:type="PQ " value="1.5" /> <referenceRange> <observationRange> <text>1.0-4.0</text> </observationRange> </ referenceRange> </observation> </component> <component> <observation moodCode="EVN" classCode="OBS"> <templateId root= "16.840.1.387002.10.2022.4.2" /> <id nullFlavor="NA" /> < code codeSystem="local" code="LY%" displayName="LYMPHOCYTE %" /> <statusCode code="completed" /> <effectiveTime value="749752631474" /> <value unit="%" xsi:type="PQ" value="24" /> < referenceRange> <observationRange> <text>20-30</text> </observationRange> </referenceRange> </observation> </component> <component> <observation moodCode="EVN" classCode= "OBS"> <templateId root="216.840.1.860048.10.20.22.4.2" /> < id nullFlavor="NA" /> <code codeSystem="local" code="MCH" displayName= "MEAN CELL HGB" /> <statusCode code="completed" /> < effectiveTime value="037056717032" /> <value unit="pg" xsi:type="PQ" value="25.9" /> <interpretationCode codeSystem="local" code="*" /> <referenceRange> <observationRange> <text>27.0- 33.0</text> </observationRange> </referenceRange> </ observation> </component> <component> <observation moodCode= "EVN" classCode="OBS"> <templateId root="07.12.840.1.207464.10..4.2 " /> <id nullFlavor="NA" /> <code codeSystem="local" code= "MCHC" displayName="MEAN CELL HGB CONCENTRATION" /> <statusCode code= "completed" /> <effectiveTime value="100708816986" /> <value unit="g/dL" xsi:type="PQ" value="30.7" /> <interpretationCode codeSystem="local" code="*" /> <referenceRange> < observationRange> <text>32.0-37.0</text> </ observationRange> </referenceRange> </observation> </ component> <component> <observation moodCode="EVN" classCode="OBS"> <templateId root="216.840.1.725283.10.2022.4.2" /> <id nullFlavor="NA" /> <code codeSystem="local" code="MCV" displayName= "MEAN CELL VOLUME" /> <statusCode code="completed" /> < effectiveTime value="205451422901" /> <value unit="fl" xsi:type="PQ" value="84.5" /> <referenceRange> <observationRange> <text>80.0-100.0</text> </observationRange> </ referenceRange> </observation> </component> <component> <observation moodCode="EVN" classCode="OBS"> <templateId root= "216.840.1.975953.10..4.2" /> <id nullFlavor="NA" /> < code codeSystem="local" code="MO#" displayName="MONOCYTE #" /> < statusCode code="completed" /> <effectiveTime value="956321507509" /> <value unit="k/cumm" xsi:type="PQ" value="0.6" /> < referenceRange> <observationRange> <text>0.1-1.0</text> </observationRange> </referenceRange> </observation > </component> <component> <observation moodCode="EVN" classCode="OBS"> <templateId root="2.16.840.1.629538.10...4.2" /> <id nullFlavor="NA" /> <code codeSystem="local" code="MO% " displayName="MONOCYTE %" /> <statusCode code="completed" /> <effectiveTime value="805961723063" /> <value unit="%" xsi: type="PQ" value="9" /> <interpretationCode codeSystem="local" code="*" /> <referenceRange> <observationRange> <text>4- 6</text> </observationRange> </referenceRange> </ observation> </component> <component> <observation moodCode= "EVN" classCode="OBS"> <templateId root="07.12.840.1.732674.22.4.2 " /> <id nullFlavor="NA" /> <code codeSystem="local" code= "MPVT" displayName="MEAN PLATELET VOLUME" /> <statusCode code= "completed" /> <effectiveTime value="" /> <value unit="fl" xsi:type="PQ" value="9.3" /> <referenceRange> < observationRange> <text>8.5-10.9</text> </ observationRange> </referenceRange> </observation> </ component> <component> <observation moodCode="EVN" classCode="OBS"> <templateId root="07.12.840.1.849719.03.15.22.4.2" /> <id nullFlavor="NA" /> <code codeSystem="local" code="RBC" displayName=" RED BLOOD CELL" /> <statusCode code="completed" /> < effectiveTime value="" /> <value unit="m/cumm" xsi:type="PQ " value="4.13" /> <referenceRange> <observationRange> <text>4.00-6.00</text> </observationRange> </ referenceRange> </observation> </component> <component> <observation moodCode="EVN" classCode="OBS"> <templateId root= "07.12.840.1.326938.1022.4.2" /> <id nullFlavor="NA" /> < code codeSystem="local" code="RDW" displayName="RED CELL DISTRIBUTION WIDTH" /> <statusCode code="completed" /> <effectiveTime value= "" /> <value unit="%" xsi:type="PQ" value="14.3" /> <referenceRange> <observationRange> <text>11.0- 15.6</text> </observationRange> </referenceRange> </ observation> </component> <component> <observation moodCode= "EVN" classCode="OBS"> <templateId root="216.840.1.417616.10.20.22.4.2 " /> <id nullFlavor="NA" /> <code codeSystem="local" code="WBC " displayName="WHITE BLOOD CELL" /> <statusCode code="completed" /> <effectiveTime value="576756071252" /> <value unit="k/cumm" xsi: type="PQ" value="6.2" /> <referenceRange> <observationRange > <text>5.0-10.0</text> </observationRange> </ referenceRange> </observation> </component> <component> <observation moodCode="EVN" classCode="OBS"> <templateId root= "07.12.840.1.178547....4.2" /> <id nullFlavor="NA" /> < code codeSystem="local" code="HGBT" displayName="HEMOGLOBIN" /> < statusCode code="completed" /> <effectiveTime value="403075283564" /> <value unit="gm/dL" xsi:type="PQ" value="10.7" /> < interpretationCode codeSystem="local" code="*" /> <referenceRange> <observationRange> <text>12.0-16.0</text> </ observationRange> </referenceRange> </observation> </ component> <component> <observation moodCode="EVN" classCode="OBS"> <templateId root="07.12.840.1.458761.10..22.4.2" /> <id nullFlavor="NA" /> <code codeSystem="local" code="HCTT" displayName= "HEMATOCRIT" /> <statusCode code="completed" /> < effectiveTime value="" /> <value unit="%" xsi:type="PQ " value="34.9" /> <interpretationCode codeSystem="local" code="*" /> <referenceRange> <observationRange> <text>37.0- 47.0</text> </observationRange> </referenceRange> </ observation> </component> <component> <observation moodCode= "EVN" classCode="OBS"> <templateId root="2.16.840.1.253271.10..4.2 " /> <id nullFlavor="NA" /> <code codeSystem="local" code= "NRBC%" displayName="NRBC %" /> <statusCode code="completed" / > <effectiveTime value="" /> <value unit="/100WBC " xsi:type="PQ" value="0.0" /> <referenceRange> < observationRange> <text>0.0-0.0</text> </ observationRange> </referenceRange> </observation> </ component> <component> <observation moodCode="EVN" classCode="OBS"> <templateId root="2.16.840.1.428547.10.4.2" /> <id nullFlavor="NA" /> <code codeSystem="local" code="NRBC#" displayName= "NRBC #" /> <statusCode code="completed" /> <effectiveTime value="" /> <value unit="k/cumm" xsi:type="PQ" value="0.00 " /> <interpretationCode codeSystem="local" code="*" /> < referenceRange> <observationRange> <text>0.03-0.11</text > </observationRange> </referenceRange> </observation > </component> <component> <observation moodCode="EVN" classCode="OBS"> <templateId root="216.840.1.446792.03.15.22.4.2" /> <id nullFlavor="NA" /> <code codeSystem="local" code="PLTT" displayName="PLATELET COUNT" /> <statusCode code="completed" /> <effectiveTime value="204997532151" /> <value unit="k/cumm" xsi:type ="PQ" value="275" /> <referenceRange> <observationRange> <text>150-400</text> </observationRange> </ referenceRange> </observation> </component> <component> <observation moodCode="EVN" classCode="OBS"> <templateId root= "07.12.840.1.267168.03.15.224.2" /> <id nullFlavor="NA" /> < code codeSystem="local" code="IG%" displayName="IMMATURE GRANULOCYTE %" /> <statusCode code="completed" /> <effectiveTime value= "148041005594" /> <value unit="%" xsi:type="PQ" value="0.3" /> <referenceRange> <observationRange> <text>0.0-0.6< /text> </observationRange> </referenceRange> </ observation> </component> <component> <observation moodCode= "EVN" classCode="OBS"> <templateId root="07.12.840.1.082701.03.15.22.4.2 " /> <id nullFlavor="NA" /> <code codeSystem="local" code="IG# " displayName="IMMATURE GRANULOCYTE #" /> <statusCode code="completed" /> <effectiveTime value="773319026090" /> <value unit="k/cumm " xsi:type="PQ" value="0.02" /> <referenceRange> < observationRange> <text>0.00-0.09</text> </ observationRange> </referenceRange> </observation> </ component> </organizer> </entry> <entry> <organizer moodCode="EVN" classCode="BATTERY"> <templateId root="07.12.840.1.117407.10..4.1" /> <id nullFlavor="NA" /> <code codeSystem="local" code="PREG" displayName=" TEST, SERUM" /> <statusCode code="completed" /> <component> <observation moodCode="EVN" classCode="OBS"> < templateId root="07.12.840.1.792097...4.2" /> <id nullFlavor="NA " /> <code codeSystem="local" code="PREG" displayName=" TEST, SERUM" /> <statusCode code="completed" /> <effectiveTime value ="242677932845" /> <value unit="" xsi:type="PQ" value="NEGATIVE" /> <referenceRange> <observationRange> <text> NEGATIVE</text> </observationRange> </referenceRange> </observation> </component> </organizer> </entry> <entry> < organizer moodCode="EVN" classCode="BATTERY"> <templateId root= "07.12.840.1.094897.10..4.1" /> <id nullFlavor="NA" /> <code codeSystem="local" code="CBCD" displayName="CBC W/DIFF" /> <statusCode code ="completed" /> <component> <observation moodCode="EVN" classCode= "OBS"> <templateId root="840.1.107133.03.15.22.4.2" /> < id nullFlavor="NA" /> <code codeSystem="local" code="BA#" displayName= "BASOPHIL #" /> <statusCode code="completed" /> < effectiveTime value="582558827816" /> <value unit="k/cumm" xsi:type="PQ " value="0.0" /> <referenceRange> <observationRange> <text>0.0-0.2</text> </observationRange> </ referenceRange> </observation> </component> <component> <observation moodCode="EVN" classCode="OBS"> <templateId root= "07.12.840.1.024007.03.15.22.4.2" /> <id nullFlavor="NA" /> < code codeSystem="local" code="BA%" displayName="BASOPHIL %" /> <statusCode code="completed" /> <effectiveTime value="143214938109" /> <value unit="%" xsi:type="PQ" value="1" /> < referenceRange> <observationRange> <text>0-1</text> </observationRange> </referenceRange> </observation> </component> <component> <observation moodCode="EVN" classCode= "OBS"> <templateId root="07.12.840.1.521345.03.15.22.4.2" /> < id nullFlavor="NA" /> <code codeSystem="local" code="EO#" displayName= "EOSINOPHIL #" /> <statusCode code="completed" /> < effectiveTime value="535403972069" /> <value unit="k/cumm" xsi:type="PQ " value="0.2" /> <referenceRange> <observationRange> <text>0.1-0.5</text> </observationRange> </ referenceRange> </observation> </component> <component> <observation moodCode="EVN" classCode="OBS"> <templateId root= "216.840.1.971099.1022.4.2" /> <id nullFlavor="NA" /> < code codeSystem="local" code="EO%" displayName="EOSINOPHIL %" /> <statusCode code="completed" /> <effectiveTime value="536866972741" /> <value unit="%" xsi:type="PQ" value="2" /> < referenceRange> <observationRange> <text>2-4</text> </observationRange> </referenceRange> </observation> </component> <component> <observation moodCode="EVN" classCode= "OBS"> <templateId root="07.12.840.1.550511.03.15.22.4.2" /> < id nullFlavor="NA" /> <code codeSystem="local" code="GR#" displayName= "GRANULOCYTE #" /> <statusCode code="completed" /> < effectiveTime value="393699845355" /> <value unit="k/cumm" xsi:type="PQ " value="4.5" /> <referenceRange> <observationRange> <text>2.0-9.0</text> </observationRange> </ referenceRange> </observation> </component> <component> <observation moodCode="EVN" classCode="OBS"> <templateId root= "216.840.1.499922.102022.4.2" /> <id nullFlavor="NA" /> < code codeSystem="local" code="GR%" displayName="GRANULOCYTE %" /> <statusCode code="completed" /> <effectiveTime value="135090154920 " /> <value unit="%" xsi:type="PQ" value="57" /> < referenceRange> <observationRange> <text>50-75</text> </observationRange> </referenceRange> </observation> </component> <component> <observation moodCode="EVN" classCode= "OBS"> <templateId root="216.840.1.515410.10..4.2" /> < id nullFlavor="NA" /> <code codeSystem="local" code="LY#" displayName= "LYMPHOCYTE #" /> <statusCode code="completed" /> < effectiveTime value="552356082175" /> <value unit="k/cumm" xsi:type="PQ " value="2.4" /> <referenceRange> <observationRange> <text>1.0-4.0</text> </observationRange> </ referenceRange> </observation> </component> <component> <observation moodCode="EVN" classCode="OBS"> <templateId root= "07.12.840.1.558932.10..4.2" /> <id nullFlavor="NA" /> < code codeSystem="local" code="LY%" displayName="LYMPHOCYTE %" /> <statusCode code="completed" /> <effectiveTime value="085663962112" /> <value unit="%" xsi:type="PQ" value="30" /> < referenceRange> <observationRange> <text>20-30</text> </observationRange> </referenceRange> </observation> </component> <component> <observation moodCode="EVN" classCode= "OBS"> <templateId root="16.840.1.143801.10.2022.4.2" /> < id nullFlavor="NA" /> <code codeSystem="local" code="MCH" displayName= "MEAN CELL HGB" /> <statusCode code="completed" /> < effectiveTime value="769918301585" /> <value unit="pg" xsi:type="PQ" value="25.6" /> <interpretationCode codeSystem="local" code="*" /> <referenceRange> <observationRange> <text>27.0- 33.0</text> </observationRange> </referenceRange> </ observation> </component> <component> <observation moodCode= "EVN" classCode="OBS"> <templateId root="2.16.840.1.803409.10..22.4.2 " /> <id nullFlavor="NA" /> <code codeSystem="local" code= "MCHC" displayName="MEAN CELL HGB CONCENTRATION" /> <statusCode code= "completed" /> <effectiveTime value="687393279430" /> <value unit="g/dL" xsi:type="PQ" value="30.7" /> <interpretationCode codeSystem="local" code="*" /> <referenceRange> < observationRange> <text>32.0-37.0</text> </ observationRange> </referenceRange> </observation> </ component> <component> <observation moodCode="EVN" classCode="OBS"> <templateId root="2.16.840.1.139646.10.20.22.4.2" /> <id nullFlavor="NA" /> <code codeSystem="local" code="MCV" displayName= "MEAN CELL VOLUME" /> <statusCode code="completed" /> < effectiveTime value="718161781160" /> <value unit="fl" xsi:type="PQ" value="83.3" /> <referenceRange> <observationRange> <text>80.0-100.0</text> </observationRange> </ referenceRange> </observation> </component> <component> <observation moodCode="EVN" classCode="OBS"> <templateId root= "216.840.1.899030.10..4.2" /> <id nullFlavor="NA" /> < code codeSystem="local" code="MO#" displayName="MONOCYTE #" /> < statusCode code="completed" /> <effectiveTime value="567514759779" /> <value unit="k/cumm" xsi:type="PQ" value="0.8" /> < referenceRange> <observationRange> <text>0.1-1.0</text> </observationRange> </referenceRange> </observation > </component> <component> <observation moodCode="EVN" classCode="OBS"> <templateId root="16.840.1.676014.03.15.22.4.2" /> <id nullFlavor="NA" /> <code codeSystem="local" code="MO% " displayName="MONOCYTE %" /> <statusCode code="completed" /> <effectiveTime value="004483882672" /> <value unit="%" xsi: type="PQ" value="10" /> <interpretationCode codeSystem="local" code="* " /> <referenceRange> <observationRange> <text> 4-6</text> </observationRange> </referenceRange> </ observation> </component> <component> <observation moodCode= "EVN" classCode="OBS"> <templateId root="07.12.840.1.274375.10.4.2 " /> <id nullFlavor="NA" /> <code codeSystem="local" code= "MPVT" displayName="MEAN PLATELET VOLUME" /> <statusCode code= "completed" /> <effectiveTime value="377346181262" /> <value unit="fl" xsi:type="PQ" value="9.6" /> <referenceRange> < observationRange> <text>8.5-10.9</text> </ observationRange> </referenceRange> </observation> </ component> <component> <observation moodCode="EVN" classCode="OBS"> <templateId root="216.840.1.745737.10.2022.4.2" /> <id nullFlavor="NA" /> <code codeSystem="local" code="RBC" displayName=" RED BLOOD CELL" /> <statusCode code="completed" /> < effectiveTime value="256258714459" /> <value unit="m/cumm" xsi:type="PQ " value="3.83" /> <interpretationCode codeSystem="local" code="*" /> <referenceRange> <observationRange> <text>4.00- 6.00</text> </observationRange> </referenceRange> </ observation> </component> <component> <observation moodCode= "EVN" classCode="OBS"> <templateId root="07.12.840.1.133512.03.15.22.4.2 " /> <id nullFlavor="NA" /> <code codeSystem="local" code="RDW " displayName="RED CELL DISTRIBUTION WIDTH" /> <statusCode code= "completed" /> <effectiveTime value="904269785835" /> <value unit="%" xsi:type="PQ" value="15.2" /> <referenceRange> <observationRange> <text>11.0-15.6</text> </ observationRange> </referenceRange> </observation> </ component> <component> <observation moodCode="EVN" classCode="OBS"> <templateId root="216.840.1.887502.2022.4.2" /> <id nullFlavor="NA" /> <code codeSystem="local" code="WBC" displayName= "WHITE BLOOD CELL" /> <statusCode code="completed" /> < effectiveTime value="647802287776" /> <value unit="k/cumm" xsi:type="PQ " value="7.9" /> <referenceRange> <observationRange> <text>5.0-10.0</text> </observationRange> </ referenceRange> </observation> </component> <component> <observation moodCode="EVN" classCode="OBS"> <templateId root= "2.16.840.1.409960.10..22.4.2" /> <id nullFlavor="NA" /> < code codeSystem="local" code="HGBT" displayName="HEMOGLOBIN" /> < statusCode code="completed" /> <effectiveTime value="981462504991" /> <value unit="gm/dL" xsi:type="PQ" value="9.8" /> < interpretationCode codeSystem="local" code="*" /> <referenceRange> <observationRange> <text>12.0-16.0</text> </ observationRange> </referenceRange> </observation> </ component> <component> <observation moodCode="EVN" classCode="OBS"> <templateId root="216.840.1.550745.10.20.22.4.2" /> <id nullFlavor="NA" /> <code codeSystem="local" code="HCTT" displayName= "HEMATOCRIT" /> <statusCode code="completed" /> < effectiveTime value="414041208404" /> <value unit="%" xsi:type="PQ " value="31.9" /> <interpretationCode codeSystem="local" code="*" /> <referenceRange> <observationRange> <text>37.0- 47.0</text> </observationRange> </referenceRange> </ observation> </component> <component> <observation moodCode= "EVN" classCode="OBS"> <templateId root="07.12.840.1.342774.10.4.2 " /> <id nullFlavor="NA" /> <code codeSystem="local" code= "NRBC%" displayName="NRBC %" /> <statusCode code="completed" / > <effectiveTime value="535090516378" /> <value unit="/100WBC " xsi:type="PQ" value="0.0" /> <referenceRange> < observationRange> <text>0.0-0.0</text> </ observationRange> </referenceRange> </observation> </ component> <component> <observation moodCode="EVN" classCode="OBS"> <templateId root="840.1.760694.03.15.22.4.2" /> <id nullFlavor="NA" /> <code codeSystem="local" code="NRBC#" displayName= "NRBC #" /> <statusCode code="completed" /> <effectiveTime value="902712847326" /> <value unit="k/cumm" xsi:type="PQ" value="0.00 " /> <interpretationCode codeSystem="local" code="*" /> < referenceRange> <observationRange> <text>0.03-0.11</text > </observationRange> </referenceRange> </observation > </component> <component> <observation moodCode="EVN" classCode="OBS"> <templateId root="07.12.840.1.407507.03.15.22.4.2" /> <id nullFlavor="NA" /> <code codeSystem="local" code="PLTT" displayName="PLATELET COUNT" /> <statusCode code="completed" /> <effectiveTime value="741875247332" /> <value unit="k/cumm" xsi:type ="PQ" value="234" /> <referenceRange> <observationRange> <text>150-400</text> </observationRange> </ referenceRange> </observation> </component> <component> <observation moodCode="EVN" classCode="OBS"> <templateId root= "07.12.840.1.153223.03.15.22.4.2" /> <id nullFlavor="NA" /> < code codeSystem="local" code="IG%" displayName="IMMATURE GRANULOCYTE %" /> <statusCode code="completed" /> <effectiveTime value= "954916935597" /> <value unit="%" xsi:type="PQ" value="0.3" /> <referenceRange> <observationRange> <text>0.0-0.6< /text> </observationRange> </referenceRange> </ observation> </component> <component> <observation moodCode= "EVN" classCode="OBS"> <templateId root="07.12.840.1.675125.10...4.2 " /> <id nullFlavor="NA" /> <code codeSystem="local" code="IG# " displayName="IMMATURE GRANULOCYTE #" /> <statusCode code="completed" /> <effectiveTime value="812369734819" /> <value unit="k/cumm " xsi:type="PQ" value="0.02" /> <referenceRange> < observationRange> <text>0.00-0.09</text> </ observationRange> </referenceRange> </observation> </ component> </organizer> </entry> <entry> <organizer moodCode="EVN" classCode="BATTERY"> <templateId root="07.12.830.1.870095.10..22.4.1" /> <id nullFlavor="NA" /> <code codeSystem="local" code="METAB" displayName="METABOLIC PANEL, BASIC" /> <statusCode code="completed" /> <component> <observation moodCode="EVN" classCode="OBS"> < templateId root="07.12.840.1.850225.03.15.22.4.2" /> <id nullFlavor="NA " /> <code codeSystem="local" code="K" displayName="POTASSIUM" /> <statusCode code="completed" /> <effectiveTime value="489449472910 " /> <value unit="mmol/L" xsi:type="PQ" value="2.9" /> < interpretationCode codeSystem="local" code="*" /> <referenceRange> <observationRange> <text>3.5-5.3</text> </ observationRange> </referenceRange> </observation> </ component> <component> <observation moodCode="EVN" classCode="OBS"> <templateId root="07.12.840.1.147028.03.15.22.4.2" /> <id nullFlavor="NA" /> <code codeSystem="local" code="eGFR" displayName= "EST GFR (MDRD)" /> <statusCode code="completed" /> < effectiveTime value="078984606039" /> <value unit="mL/min" xsi:type="PQ " value="> 60" /> <referenceRange> <observationRange> <text>> 59</text> </observationRange> </ referenceRange> </observation> </component> <component> <observation moodCode="EVN" classCode="OBS"> <templateId root= "07.12.840.1.232020.03.15.22.4.2" /> <id nullFlavor="NA" /> < code codeSystem="local" code="GAP" displayName="ANION GAP" /> < statusCode code="completed" /> <effectiveTime value="112475177812" /> <value unit="mmol/L" xsi:type="PQ" value="9" /> < referenceRange> <observationRange> <text>5-15</text> </observationRange> </referenceRange> </observation> </component> <component> <observation moodCode="EVN" classCode= "OBS"> <templateId root="2.16.840.1.856092.10..22.4.2" /> < id nullFlavor="NA" /> <code codeSystem="local" code="eCrCl" displayName ="EST CrCl (CG)" /> <statusCode code="completed" /> < effectiveTime value="768474587018" /> <value unit="mL/min" xsi:type="PQ " value="> 60" /> <referenceRange> <observationRange> <text>> 59</text> </observationRange> </ referenceRange> </observation> </component> <component> <observation moodCode="EVN" classCode="OBS"> <templateId root= "2.16.840.1.741076.10..22.4.2" /> <id nullFlavor="NA" /> < code codeSystem="local" code="GLU" displayName="GLUCOSE" /> < statusCode code="completed" /> <effectiveTime value="026025419366" /> <value unit="mg/dL" xsi:type="PQ" value="113" /> < interpretationCode codeSystem="local" code="*" /> <referenceRange> <observationRange> <text>70-99</text> </ observationRange> </referenceRange> </observation> </ component> <component> <observation moodCode="EVN" classCode="OBS"> <templateId root="216.840.1.257675.10..22.4.2" /> <id nullFlavor="NA" /> <code codeSystem="local" code="CA" displayName= "CALCIUM" /> <statusCode code="completed" /> <effectiveTime value="606049109415" /> <value unit="mg/dL" xsi:type="PQ" value="8.5" / > <referenceRange> <observationRange> <text>8.5 -10.1</text> </observationRange> </referenceRange> </ observation> </component> <component> <observation moodCode= "EVN" classCode="OBS"> <templateId root="16.840.1.566074...22.4.2 " /> <id nullFlavor="NA" /> <code codeSystem="local" code="BUN " displayName="BLOOD UREA NITROGEN" /> <statusCode code="completed" /> <effectiveTime value="449379109171" /> <value unit="mg/dL" xsi:type="PQ" value="8" /> <referenceRange> < observationRange> <text>7-20</text> </observationRange> </referenceRange> </observation> </component> < component> <observation moodCode="EVN" classCode="OBS"> < templateId root="16.840.1.691137.10.20.22.4.2" /> <id nullFlavor="NA " /> <code codeSystem="local" code="CREAT" displayName="CREATININE" /> <statusCode code="completed" /> <effectiveTime value= "702838641763" /> <value unit="mg/dL" xsi:type="PQ" value="0.6" /> <referenceRange> <observationRange> <text>0.6-1.0< /text> </observationRange> </referenceRange> </ observation> </component> <component> <observation moodCode= "EVN" classCode="OBS"> <templateId root="216.840.1.484648.10..4.2 " /> <id nullFlavor="NA" /> <code codeSystem="local" code="NA " displayName="SODIUM" /> <statusCode code="completed" /> < effectiveTime value="727944512010" /> <value unit="mmol/L" xsi:type="PQ " value="138" /> <referenceRange> <observationRange> <text>135-148</text> </observationRange> </ referenceRange> </observation> </component> <component> <observation moodCode="EVN" classCode="OBS"> <templateId root= "216.840.1.838406.03.15.22.4.2" /> <id nullFlavor="NA" /> < code codeSystem="local" code="CL" displayName="CHLORIDE" /> < statusCode code="completed" /> <effectiveTime value="249132989943" /> <value unit="mmol/L" xsi:type="PQ" value="102" /> < referenceRange> <observationRange> <text>98-110</text> </observationRange> </referenceRange> </observation> </component> <component> <observation moodCode="EVN" classCode ="OBS"> <templateId root="16.840.1.453983.10.22.4.2" /> < id nullFlavor="NA" /> <code codeSystem="local" code="CO2" displayName= "CARBON DIOXIDE" /> <statusCode code="completed" /> < effectiveTime value="829063575800" /> <value unit="mmol/L" xsi:type="PQ " value="27" /> <referenceRange> <observationRange> <text>21-32</text> </observationRange> </ referenceRange> </observation> </component> </organizer> </entry > <entry> <organizer moodCode="EVN" classCode="BATTERY"> <templateId root="216.840.1.648447.10..22.4.1" /> <id nullFlavor="NA" /> <code codeSystem="local" code="UA" displayName="URINALYSIS, ROUTINE" /> < statusCode code="completed" /> <component> <observation moodCode= "EVN" classCode="OBS"> <templateId root="16.840.1.851610.10...4.2 " /> <id nullFlavor="NA" /> <code codeSystem="local" code= "LEUESU" displayName="UA LEUKOCYTE ESTERASE DIPSTICK" /> <statusCode code="completed" /> <effectiveTime value="141904971121" /> < value unit="" xsi:type="PQ" value="1+" /> <interpretationCode codeSystem="local" code="*" /> <referenceRange> < observationRange> <text>NEGATIVE</text> </ observationRange> </referenceRange> </observation> </ component> <component> <observation moodCode="EVN" classCode="OBS"> <templateId root="16.840.1.628419.10...4.2" /> <id nullFlavor="NA" /> <code codeSystem="local" code="NITRIU" displayName= "UA NITRITE DIPSTICK" /> <statusCode code="completed" /> < effectiveTime value="462254384198" /> <value unit="" xsi:type="PQ" value="POSITIVE" /> <interpretationCode codeSystem="local" code="*" /> <referenceRange> <observationRange> <text> NEGATIVE</text> </observationRange> </referenceRange> </observation> </component> <component> <observation moodCode ="EVN" classCode="OBS"> <templateId root= "16.840.1.923516.10..4.2" /> <id nullFlavor="NA" /> < code codeSystem="local" code="PROTEIU" displayName="UA PROTEIN DIPSTICK" /> <statusCode code="completed" /> <effectiveTime value= "645350291509" /> <value unit="" xsi:type="PQ" value="TRACE" /> <referenceRange> <observationRange> <text>NEGATIVE</ text> </observationRange> </referenceRange> </ observation> </component> <component> <observation moodCode= "EVN" classCode="OBS"> <templateId root="07.12.840.1.117324.10.4.2 " /> <id nullFlavor="NA" /> <code codeSystem="local" code= "DGLUU" displayName="UA GLUCOSE DIPSTICK" /> <statusCode code= "completed" /> <effectiveTime value="156307539398" /> <value unit="" xsi:type="PQ" value="NEGATIVE" /> <referenceRange> < observationRange> <text>NEGATIVE</text> </ observationRange> </referenceRange> </observation> </ component> <component> <observation moodCode="EVN" classCode="OBS"> <templateId root="07.12.840.1.496264.10.4.2" /> <id nullFlavor="NA" /> <code codeSystem="local" code="KETONU" displayName= "UA KETONE DIPSTICK" /> <statusCode code="completed" /> < effectiveTime value="223643632488" /> <value unit="" xsi:type="PQ" value="NEGATIVE" /> <referenceRange> <observationRange> <text>NEGATIVE</text> </observationRange> </ referenceRange> </observation> </component> <component> <observation moodCode="EVN" classCode="OBS"> <templateId root= "07.12.840.1.975281.03.15.22.4.2" /> <id nullFlavor="NA" /> < code codeSystem="local" code="UROBILU" displayName="UA UROBILINOGEN DIPSTICK" / > <statusCode code="completed" /> <effectiveTime value= "180680654526" /> <value unit="" xsi:type="PQ" value="NORMAL" /> <referenceRange> <observationRange> <text>NORMAL</ text> </observationRange> </referenceRange> </ observation> </component> <component> <observation moodCode= "EVN" classCode="OBS"> <templateId root="07.12.840.1.492702.03.15.22.4.2 " /> <id nullFlavor="NA" /> <code codeSystem="local" code= "BILU" displayName="UA BILIRUBIN DIPSTICK" /> <statusCode code= "completed" /> <effectiveTime value="364551644183" /> <value unit="" xsi:type="PQ" value="NEGATIVE" /> <referenceRange> < observationRange> <text>NEGATIVE</text> </ observationRange> </referenceRange> </observation> </ component> <component> <observation moodCode="EVN" classCode="OBS"> <templateId root="16.840.1.053966.10..4.2" /> <id nullFlavor="NA" /> <code codeSystem="local" code="LON" displayName="UA BLOOD DIPSTICK" /> <statusCode code="completed" /> < effectiveTime value="433510499230" /> <value unit="" xsi:type="PQ" value="3+" /> <interpretationCode codeSystem="local" code="*" /> <referenceRange> <observationRange> <text>NEGATIVE</ text> </observationRange> </referenceRange> </ observation> </component> <component> <observation moodCode= "EVN" classCode="OBS"> <templateId root="2.16.840.1.629698.10..22.4.2 " /> <id nullFlavor="NA" /> <code codeSystem="local" code= "SPGRU" displayName="UA SPECIFIC GRAVITY" /> <statusCode code= "completed" /> <effectiveTime value="444798562215" /> <value unit="" xsi:type="PQ" value="1.020" /> <referenceRange> < observationRange> <text>1.015-1.025</text> </ observationRange> </referenceRange> </observation> </ component> <component> <observation moodCode="EVN" classCode="OBS"> <templateId root="2.16.840.1.998885.10..22.4.2" /> <id nullFlavor="NA" /> <code codeSystem="local" code="WILLOW" displayName="UR PH" /> <statusCode code="completed" /> <effectiveTime value= "551824583514" /> <value unit="" xsi:type="PQ" value="6.0" /> <referenceRange> <observationRange> <text>5.0-7.0</text > </observationRange> </referenceRange> </observation > </component> </organizer> </entry> <entry> <organizer moodCode= "EVN" classCode="BATTERY"> <templateId root="840.1.833670.10..4.1 " /> <id nullFlavor="NA" /> <code codeSystem="local" code="UAMICROD" displayName="UA MICROSCOPIC" /> <statusCode code="completed" /> < component> <observation moodCode="EVN" classCode="OBS"> < templateId root="840.1.678396.03.15.22.4.2" /> <id nullFlavor="NA " /> <code codeSystem="local" code="BACU" displayName="UA BACTERIA" /> <statusCode code="completed" /> <effectiveTime value= "992741736634" /> <value unit="" xsi:type="PQ" value="5+" /> < interpretationCode codeSystem="local" code="*" /> <referenceRange> <observationRange> <text>NEGATIVE</text> </ observationRange> </referenceRange> </observation> </ component> <component> <observation moodCode="EVN" classCode="OBS"> <templateId root="840.1.971253.03.15.22.4.2" /> <id nullFlavor="NA" /> <code codeSystem="local" code="EPIU" displayName=" UA EPITHELIAL CELLS" /> <statusCode code="completed" /> < effectiveTime value="006738847471" /> <value unit="epi/hpf" xsi:type= "PQ" value="4+" /> <interpretationCode codeSystem="local" code="*" /> <referenceRange> <observationRange> <text>0 - 1 +</text> </observationRange> </referenceRange> </ observation> </component> <component> <observation moodCode= "EVN" classCode="OBS"> <templateId root="840.1.894754.10.20.22.4.2 " /> <id nullFlavor="NA" /> <code codeSystem="local" code= "RBCU" displayName="UA RBC" /> <statusCode code="completed" /> <effectiveTime value="724082354008" /> <value unit="rbc/hpf" xsi:type ="PQ" value=">100" /> <interpretationCode codeSystem="local" code="* " /> <referenceRange> <observationRange> <text> 0 - 3</text> </observationRange> </referenceRange> </ observation> </component> <component> <observation moodCode= "EVN" classCode="OBS"> <templateId root="07.12.840.1.216692.10.4.2 " /> <id nullFlavor="NA" /> <code codeSystem="local" code= "UAVOL" displayName="UA VOLUME FOR EXAM" /> <statusCode code="completed " /> <effectiveTime value="926048478990" /> <value unit="mL" xsi:type="PQ" value="12.0" /> <referenceRange> < observationRange> <text>(12mL STD)</text> </ observationRange> </referenceRange> </observation> </ component> <component> <observation moodCode="EVN" classCode="OBS"> <templateId root="07.12.840.1.904207.10..22.4.2" /> <id nullFlavor="NA" /> <code codeSystem="local" code="WBCU" displayName=" UA WBC" /> <statusCode code="completed" /> <effectiveTime value="860079646123" /> <value unit="wbc/hpf" xsi:type="PQ" value="> 100" /> <interpretationCode codeSystem="local" code="*" /> < referenceRange> <observationRange> <text>0 - 5</text> </observationRange> </referenceRange> </observation> </component> <component> <observation moodCode="EVN" classCode= "OBS"> <templateId root="216.840.1.140456.10..22.4.2" /> < id nullFlavor="NA" /> <code codeSystem="local" code="WBCCLUMPS" displayName="WBC CLUMPS" /> <statusCode code="completed" /> < effectiveTime value="479989764177" /> <value unit="" xsi:type="PQ" value="PRESENT" /> <interpretationCode codeSystem="local" code="*" /> <referenceRange> <observationRange> <text> NEGATIVE</text> </observationRange> </referenceRange> </observation> </component> </organizer> </entry> <entry> < organizer moodCode="EVN" classCode="BATTERY"> <templateId root= "16.840.1.796723.10..22.4.1" /> <id nullFlavor="NA" /> <code codeSystem="local" code="PREGU" displayName="UR TEST" /> < statusCode code="completed" /> <component> <observation moodCode= "EVN" classCode="OBS"> <templateId root="16.840.1.324066.10..22.4.2 " /> <id nullFlavor="NA" /> <code codeSystem="local" code= "PREGU" displayName="UR TEST" /> <statusCode code="completed " /> <effectiveTime value="066137207954" /> <value unit="" xsi :type="PQ" value="NEGATIVE" /> <referenceRange> < observationRange> <text>NEGATIVE</text> </ observationRange> </referenceRange> </observation> </ component> </organizer> </entry> <entry> <organizer moodCode="EVN" classCode="BATTERY"> <templateId root="2.16.840.1.107265.10.20.22.4.1" /> <id nullFlavor="NA" /> <code codeSystem="local" code="UC" displayName= "URINE CULTURE" /> <statusCode code="completed" /> <component> <observation moodCode="EVN" classCode="OBS"> <templateId root= "2.16.840.1.561327.10.20.22.4.2" /> <id nullFlavor="NA" /> < code codeSystem="local" code="MB" displayName="Microbiology" /> < statusCode code="completed" /> <effectiveTime value="791480331917" /> <value xsi:type="ST" value="<pre><b>URINE CULTURE</b&gt ; See BelowURINE CULTURE(F) Red Date/Time: 04/29/2017 11:15 Matty Date/Time: 05/01/2017 10:16SOURCE: URINESPEC DESC: CLEAN CATCHTREATMENT OF ASYMPTOMATIC BACTERIURIA IS NOT USUALLYCLINICALLY INDICATED.Organism #1 ESCHERICHIA COLICOLONY COUNT >100,000 CFU/ML InterpAMPICILLIN VITEK >=32 RAMPICILLIN/SULBACTAM VITEK >=32 RCEFAZOLIN VITEK <=4 SCEFEPIME VITEK <=1 SCEFTRIAXONE VITEK <=1 SGENTAMICIN VITEK <=1 SNITROFURANTOIN VITEK 64 IPIPERACILLIN/TAZOBZCTAM VITEK 8 STRIMETH/SULFA VITEK >=[address] [facility] [place] [address]</pre>" /> <referenceRange> <observationRange> <text /> </observationRange> </referenceRange> </observation> </component> </organizer> < /entry> <entry> <organizer moodCode="EVN" classCode="BATTERY"> < templateId root="216.840.1.959950.10..22.4.1" /> <id nullFlavor="NA" /> <code codeSystem="local" code="METAB" displayName="METABOLIC PANEL, BASIC " /> <statusCode code="completed" /> <component> <observation moodCode="EVN" classCode="OBS"> <templateId root= "216.840.1.408516.10...4.2" /> <id nullFlavor="NA" /> < code codeSystem="local" code="K" displayName="POTASSIUM" /> < statusCode code="completed" /> <effectiveTime value="680787076980" /> <value unit="mmol/L" xsi:type="PQ" value="3.8" /> < referenceRange> <observationRange> <text>3.5-5.3</text> </observationRange> </referenceRange> </observation > </component> <component> <observation moodCode="EVN" classCode="OBS"> <templateId root="216.840.1.942606.10..22.4.2" /> <id nullFlavor="NA" /> <code codeSystem="local" code="eGFR" displayName="EST GFR (MDRD)" /> <statusCode code="completed" /> <effectiveTime value="673250300841" /> <value unit="mL/min" xsi:type ="PQ" value="> 60" /> <referenceRange> <observationRange > <text>> 59</text> </observationRange> </ referenceRange> </observation> </component> <component> <observation moodCode="EVN" classCode="OBS"> <templateId root= "216.840.1.500729.10..22.4.2" /> <id nullFlavor="NA" /> < code codeSystem="local" code="GAP" displayName="ANION GAP" /> < statusCode code="completed" /> <effectiveTime value="315219740729" /> <value unit="mmol/L" xsi:type="PQ" value="6" /> < referenceRange> <observationRange> <text>5-15</text> </observationRange> </referenceRange> </observation> </component> <component> <observation moodCode="EVN" classCode= "OBS"> <templateId root="216.840.1.438435...4.2" /> < id nullFlavor="NA" /> <code codeSystem="local" code="eCrCl" displayName ="EST CrCl (CG)" /> <statusCode code="completed" /> < effectiveTime value="242315062589" /> <value unit="mL/min" xsi:type="PQ " value="> 60" /> <referenceRange> <observationRange> <text>> 59</text> </observationRange> </ referenceRange> </observation> </component> <component> <observation moodCode="EVN" classCode="OBS"> <templateId root= "16.840.1.324104.03.15.22.4.2" /> <id nullFlavor="NA" /> < code codeSystem="local" code="GLU" displayName="GLUCOSE" /> < statusCode code="completed" /> <effectiveTime value="377462759846" /> <value unit="mg/dL" xsi:type="PQ" value="107" /> < interpretationCode codeSystem="local" code="*" /> <referenceRange> <observationRange> <text>70-99</text> </ observationRange> </referenceRange> </observation> </ component> <component> <observation moodCode="EVN" classCode="OBS"> <templateId root="216.840.1.522159.03.15.22.4.2" /> <id nullFlavor="NA" /> <code codeSystem="local" code="CA" displayName= "CALCIUM" /> <statusCode code="completed" /> <effectiveTime value="192648657759" /> <value unit="mg/dL" xsi:type="PQ" value="8.6" / > <referenceRange> <observationRange> <text>8.5 -10.1</text> </observationRange> </referenceRange> </ observation> </component> <component> <observation moodCode= "EVN" classCode="OBS"> <templateId root="07.12.840.1.408654.03.15.22.4.2 " /> <id nullFlavor="NA" /> <code codeSystem="local" code="BUN " displayName="BLOOD UREA NITROGEN" /> <statusCode code="completed" /> <effectiveTime value="789712936052" /> <value unit="mg/dL" xsi:type="PQ" value="10" /> <referenceRange> < observationRange> <text>7-20</text> </observationRange> </referenceRange> </observation> </component> < component> <observation moodCode="EVN" classCode="OBS"> < templateId root="07.12.840.1.736728.03.15.22.4.2" /> <id nullFlavor="NA " /> <code codeSystem="local" code="CREAT" displayName="CREATININE" /> <statusCode code="completed" /> <effectiveTime value= "371861476967" /> <value unit="mg/dL" xsi:type="PQ" value="0.8" /> <referenceRange> <observationRange> <text>0.6-1.0< /text> </observationRange> </referenceRange> </ observation> </component> <component> <observation moodCode= "EVN" classCode="OBS"> <templateId root="16.840.1.997131.10..4.2 " /> <id nullFlavor="NA" /> <code codeSystem="local" code="NA " displayName="SODIUM" /> <statusCode code="completed" /> < effectiveTime value="065332920301" /> <value unit="mmol/L" xsi:type="PQ " value="140" /> <referenceRange> <observationRange> <text>135-148</text> </observationRange> </ referenceRange> </observation> </component> <component> <observation moodCode="EVN" classCode="OBS"> <templateId root= "840.1.611295...4.2" /> <id nullFlavor="NA" /> < code codeSystem="local" code="CL" displayName="CHLORIDE" /> < statusCode code="completed" /> <effectiveTime value="763172738728" /> <value unit="mmol/L" xsi:type="PQ" value="105" /> < referenceRange> <observationRange> <text>98-110</text> </observationRange> </referenceRange> </observation> </component> <component> <observation moodCode="EVN" classCode ="OBS"> <templateId root="07.12.840.1.834779.10..22.4.2" /> < id nullFlavor="NA" /> <code codeSystem="local" code="CO2" displayName= "CARBON DIOXIDE" /> <statusCode code="completed" /> < effectiveTime value="533015081766" /> <value unit="mmol/L" xsi:type="PQ " value="29" /> <referenceRange> <observationRange> <text>21-32</text> </observationRange> </ referenceRange> </observation> </component> </organizer> </entry > <entry> <organizer moodCode="EVN" classCode="BATTERY"> <templateId root="16.840.1.629025.10..4.1" /> <id nullFlavor="NA" /> <code codeSystem="local" code="CBCD" displayName="CBC W/DIFF" /> <statusCode code ="completed" /> <component> <observation moodCode="EVN" classCode= "OBS"> <templateId root="2.840.1.778885.03.15.22.4.2" /> < id nullFlavor="NA" /> <code codeSystem="local" code="BA#" displayName= "BASOPHIL #" /> <statusCode code="completed" /> < effectiveTime value="422257915838" /> <value unit="k/cumm" xsi:type="PQ " value="0.0" /> <referenceRange> <observationRange> <text>0.0-0.2</text> </observationRange> </ referenceRange> </observation> </component> <component> <observation moodCode="EVN" classCode="OBS"> <templateId root= "216.840.1.519142.10..4.2" /> <id nullFlavor="NA" /> < code codeSystem="local" code="BA%" displayName="BASOPHIL %" /> <statusCode code="completed" /> <effectiveTime value="934105361197" /> <value unit="%" xsi:type="PQ" value="0.8" /> < referenceRange> <observationRange> <text>0-1</text> </observationRange> </referenceRange> </observation> </component> <component> <observation moodCode="EVN" classCode= "OBS"> <templateId root="216.840.1.343258.10..4.2" /> < id nullFlavor="NA" /> <code codeSystem="local" code="EO#" displayName= "EOSINOPHIL #" /> <statusCode code="completed" /> < effectiveTime value="494509611972" /> <value unit="k/cumm" xsi:type="PQ " value="0.1" /> <referenceRange> <observationRange> <text>0.1-0.5</text> </observationRange> </ referenceRange> </observation> </component> <component> <observation moodCode="EVN" classCode="OBS"> <templateId root= "16.840.1.025230.03.15.22.4.2" /> <id nullFlavor="NA" /> < code codeSystem="local" code="EO%" displayName="EOSINOPHIL %" /> <statusCode code="completed" /> <effectiveTime value="755064200803" /> <value unit="%" xsi:type="PQ" value="1.0" /> < interpretationCode codeSystem="local" code="*" /> <referenceRange> <observationRange> <text>2-4</text> </ observationRange> </referenceRange> </observation> </ component> <component> <observation moodCode="EVN" classCode="OBS"> <templateId root="16.840.1.660560.03.15.22.4.2" /> <id nullFlavor="NA" /> <code codeSystem="local" code="GR#" displayName= "GRANULOCYTE #" /> <statusCode code="completed" /> < effectiveTime value="523341925255" /> <value unit="k/cumm" xsi:type="PQ " value="2.8" /> <referenceRange> <observationRange> <text>2.0-9.0</text> </observationRange> </ referenceRange> </observation> </component> <component> <observation moodCode="EVN" classCode="OBS"> <templateId root= "2.16.840.1.199342.10...4.2" /> <id nullFlavor="NA" /> < code codeSystem="local" code="GR%" displayName="GRANULOCYTE %" /> <statusCode code="completed" /> <effectiveTime value="223687255274 " /> <value unit="%" xsi:type="PQ" value="57.7" /> < referenceRange> <observationRange> <text>50-75</text> </observationRange> </referenceRange> </observation> </component> <component> <observation moodCode="EVN" classCode= "OBS"> <templateId root="2.16.840.1.045115....4.2" /> < id nullFlavor="NA" /> <code codeSystem="local" code="LY#" displayName= "LYMPHOCYTE #" /> <statusCode code="completed" /> < effectiveTime value="886918735344" /> <value unit="k/cumm" xsi:type="PQ " value="1.7" /> <referenceRange> <observationRange> <text>1.0-4.0</text> </observationRange> </ referenceRange> </observation> </component> <component> <observation moodCode="EVN" classCode="OBS"> <templateId root= "216.840.1.535683.10..4.2" /> <id nullFlavor="NA" /> < code codeSystem="local" code="LY%" displayName="LYMPHOCYTE %" /> <statusCode code="completed" /> <effectiveTime value="315366879324" /> <value unit="%" xsi:type="PQ" value="34.2" /> < interpretationCode codeSystem="local" code="*" /> <referenceRange> <observationRange> <text>20-30</text> </ observationRange> </referenceRange> </observation> </ component> <component> <observation moodCode="EVN" classCode="OBS"> <templateId root="07.12.840.1.934540.104.2" /> <id nullFlavor="NA" /> <code codeSystem="local" code="MCH" displayName= "MEAN CELL HGB" /> <statusCode code="completed" /> < effectiveTime value="525151786904" /> <value unit="pg" xsi:type="PQ" value="24.9" /> <interpretationCode codeSystem="local" code="*" /> <referenceRange> <observationRange> <text>27.0- 33.0</text> </observationRange> </referenceRange> </ observation> </component> <component> <observation moodCode= "EVN" classCode="OBS"> <templateId root="16.840.1.306812.10..4.2 " /> <id nullFlavor="NA" /> <code codeSystem="local" code= "MCHC" displayName="MEAN CELL HGB CONCENTRATION" /> <statusCode code= "completed" /> <effectiveTime value="021944869470" /> <value unit="g/dL" xsi:type="PQ" value="30.3" /> <interpretationCode codeSystem="local" code="*" /> <referenceRange> < observationRange> <text>32.0-37.0</text> </ observationRange> </referenceRange> </observation> </ component> <component> <observation moodCode="EVN" classCode="OBS"> <templateId root="16.840.1.642918.10.20.22.4.2" /> <id nullFlavor="NA" /> <code codeSystem="local" code="MCV" displayName= "MEAN CELL VOLUME" /> <statusCode code="completed" /> < effectiveTime value="990112342603" /> <value unit="fl" xsi:type="PQ" value="82.2" /> <referenceRange> <observationRange> <text>80.0-100.0</text> </observationRange> </ referenceRange> </observation> </component> <component> <observation moodCode="EVN" classCode="OBS"> <templateId root= "16.840.1.010696.10.20.22.4.2" /> <id nullFlavor="NA" /> < code codeSystem="local" code="MO#" displayName="MONOCYTE #" /> < statusCode code="completed" /> <effectiveTime value="815121653491" /> <value unit="k/cumm" xsi:type="PQ" value="0.3" /> < referenceRange> <observationRange> <text>0.1-1.0</text> </observationRange> </referenceRange> </observation > </component> <component> <observation moodCode="EVN" classCode="OBS"> <templateId root="16.840.1.057267.10.2022.4.2" /> <id nullFlavor="NA" /> <code codeSystem="local" code="MO% " displayName="MONOCYTE %" /> <statusCode code="completed" /> <effectiveTime value="645363534248" /> <value unit="%" xsi: type="PQ" value="6.1" /> <interpretationCode codeSystem="local" code="* " /> <referenceRange> <observationRange> <text> 4-6</text> </observationRange> </referenceRange> </ observation> </component> <component> <observation moodCode= "EVN" classCode="OBS"> <templateId root="07.12.840.1.966664.1022.4.2 " /> <id nullFlavor="NA" /> <code codeSystem="local" code= "MPVT" displayName="MEAN PLATELET VOLUME" /> <statusCode code= "completed" /> <effectiveTime value="064293925879" /> <value unit="fl" xsi:type="PQ" value="9.0" /> <referenceRange> < observationRange> <text>8.5-10.9</text> </ observationRange> </referenceRange> </observation> </ component> <component> <observation moodCode="EVN" classCode="OBS"> <templateId root="07.12.840.1.967524.10.2022.4.2" /> <id nullFlavor="NA" /> <code codeSystem="local" code="RBC" displayName=" RED BLOOD CELL" /> <statusCode code="completed" /> < effectiveTime value="002367394343" /> <value unit="m/cumm" xsi:type="PQ " value="4.21" /> <referenceRange> <observationRange> <text>4.00-6.00</text> </observationRange> </ referenceRange> </observation> </component> <component> <observation moodCode="EVN" classCode="OBS"> <templateId root= "07.12.840.1.795697.10.20.22.4.2" /> <id nullFlavor="NA" /> < code codeSystem="local" code="RDW" displayName="RED CELL DISTRIBUTION WIDTH" /> <statusCode code="completed" /> <effectiveTime value= "112901718357" /> <value unit="%" xsi:type="PQ" value="15.7" /> <interpretationCode codeSystem="local" code="*" /> < referenceRange> <observationRange> <text>11.0-15.6</text > </observationRange> </referenceRange> </observation > </component> <component> <observation moodCode="EVN" classCode="OBS"> <templateId root="07.12.840.1.591864.1022.4.2" /> <id nullFlavor="NA" /> <code codeSystem="local" code="WBC" displayName="WHITE BLOOD CELL" /> <statusCode code="completed" /> <effectiveTime value="649013672738" /> <value unit="k/cumm" xsi: type="PQ" value="4.9" /> <interpretationCode codeSystem="local" code="* " /> <referenceRange> <observationRange> <text> 5.0-10.0</text> </observationRange> </referenceRange> </observation> </component> <component> <observation moodCode ="EVN" classCode="OBS"> <templateId root= "07.12.840.1.805436.10.20.22.4.2" /> <id nullFlavor="NA" /> < code codeSystem="local" code="HGBT" displayName="HEMOGLOBIN" /> < statusCode code="completed" /> <effectiveTime value="367710594300" /> <value unit="gm/dL" xsi:type="PQ" value="10.5" /> < interpretationCode codeSystem="local" code="*" /> <referenceRange> <observationRange> <text>12.0-16.0</text> </ observationRange> </referenceRange> </observation> </ component> <component> <observation moodCode="EVN" classCode="OBS"> <templateId root="2.16.840.1.714254.10...4.2" /> <id nullFlavor="NA" /> <code codeSystem="local" code="HCTT" displayName= "HEMATOCRIT" /> <statusCode code="completed" /> < effectiveTime value="290955338042" /> <value unit="%" xsi:type="PQ " value="34.6" /> <interpretationCode codeSystem="local" code="*" /> <referenceRange> <observationRange> <text>37.0- 47.0</text> </observationRange> </referenceRange> </ observation> </component> <component> <observation moodCode= "EVN" classCode="OBS"> <templateId root="2.16.840.1.712316.10.20.4.2 " /> <id nullFlavor="NA" /> <code codeSystem="local" code= "NRBC%" displayName="NRBC %" /> <statusCode code="completed" / > <effectiveTime value="427326386188" /> <value unit="/100WBC " xsi:type="PQ" value="0.0" /> <referenceRange> < observationRange> <text>0.0-0.0</text> </ observationRange> </referenceRange> </observation> </ component> <component> <observation moodCode="EVN" classCode="OBS"> <templateId root="2.16.840.1.723753.10.20.4.2" /> <id nullFlavor="NA" /> <code codeSystem="local" code="NRBC#" displayName= "NRBC #" /> <statusCode code="completed" /> <effectiveTime value="030279180823" /> <value unit="k/cumm" xsi:type="PQ" value="0.00 " /> <interpretationCode codeSystem="local" code="*" /> < referenceRange> <observationRange> <text>0.03-0.11</text > </observationRange> </referenceRange> </observation > </component> <component> <observation moodCode="EVN" classCode="OBS"> <templateId root="16.840.1.186568.104.2" /> <id nullFlavor="NA" /> <code codeSystem="local" code="PLTT" displayName="PLATELET COUNT" /> <statusCode code="completed" /> <effectiveTime value="855385304518" /> <value unit="k/cumm" xsi:type ="PQ" value="296" /> <referenceRange> <observationRange> <text>150-400</text> </observationRange> </ referenceRange> </observation> </component> <component> <observation moodCode="EVN" classCode="OBS"> <templateId root= "216.840.1.719312.10..4.2" /> <id nullFlavor="NA" /> < code codeSystem="local" code="IG%" displayName="IMMATURE GRANULOCYTE %" /> <statusCode code="completed" /> <effectiveTime value= "108775631546" /> <value unit="%" xsi:type="PQ" value="0.2" /> <referenceRange> <observationRange> <text>0.0-0.6< /text> </observationRange> </referenceRange> </ observation> </component> <component> <observation moodCode= "EVN" classCode="OBS"> <templateId root="840.1.203698.03.15.22.4.2 " /> <id nullFlavor="NA" /> <code codeSystem="local" code="IG# " displayName="IMMATURE GRANULOCYTE #" /> <statusCode code="completed" /> <effectiveTime value="320149899118" /> <value unit="k/cumm " xsi:type="PQ" value="0.01" /> <referenceRange> < observationRange> <text>0.00-0.09</text> </ observationRange> </referenceRange> </observation> </ component> </organizer> </entry> <entry> <organizer moodCode="EVN" classCode="BATTERY"> <templateId root="840.1.216793.03.15.22.4.1" /> <id nullFlavor="NA" /> <code codeSystem="local" code="CBCD" displayName="CBC W/DIFF" /> <statusCode code="completed" /> <component > <observation moodCode="EVN" classCode="OBS"> <templateId root= "840.1.171175.03.15.224.2" /> <id nullFlavor="NA" /> < code codeSystem="local" code="BA#" displayName="BASOPHIL #" /> < statusCode code="completed" /> <effectiveTime value="644739045771" /> <value unit="k/cumm" xsi:type="PQ" value="0.1" /> < referenceRange> <observationRange> <text>0.0-0.2</text> </observationRange> </referenceRange> </observation > </component> <component> <observation moodCode="EVN" classCode="OBS"> <templateId root="216.840.1.668784.03.15.22.4.2" /> <id nullFlavor="NA" /> <code codeSystem="local" code="BA% " displayName="BASOPHIL %" /> <statusCode code="completed" /> <effectiveTime value="994633990721" /> <value unit="%" xsi: type="PQ" value="1.0" /> <referenceRange> <observationRange > <text>0-1</text> </observationRange> </ referenceRange> </observation> </component> <component> <observation moodCode="EVN" classCode="OBS"> <templateId root= "2.16.840.1.461929.03.15.22.4.2" /> <id nullFlavor="NA" /> < code codeSystem="local" code="GR#" displayName="GRANULOCYTE #" /> < statusCode code="completed" /> <effectiveTime value="096733519831" /> <value unit="k/cumm" xsi:type="PQ" value="11.0" /> < interpretationCode codeSystem="local" code="*" /> <referenceRange> <observationRange> <text>2.0-9.0</text> </ observationRange> </referenceRange> </observation> </ component> <component> <observation moodCode="EVN" classCode="OBS"> <templateId root="216.840.1.793772..4.2" /> <id nullFlavor="NA" /> <code codeSystem="local" code="LY#" displayName= "LYMPHOCYTE #" /> <statusCode code="completed" /> < effectiveTime value="" /> <value unit="k/cumm" xsi:type="PQ " value="1.6" /> <referenceRange> <observationRange> <text>1.0-4.0</text> </observationRange> </ referenceRange> </observation> </component> <component> <observation moodCode="EVN" classCode="OBS"> <templateId root= "216.840.1.083164.03.15.224.2" /> <id nullFlavor="NA" /> < code codeSystem="local" code="LY%" displayName="LYMPHOCYTE %" /> <statusCode code="completed" /> <effectiveTime value="" /> <value unit="%" xsi:type="PQ" value="11.0" /> < interpretationCode codeSystem="local" code="*" /> <referenceRange> <observationRange> <text>20-30</text> </ observationRange> </referenceRange> </observation> </ component> <component> <observation moodCode="EVN" classCode="OBS"> <templateId root="216.840.1.740868.104.2" /> <id nullFlavor="NA" /> <code codeSystem="local" code="MCH" displayName= "MEAN CELL HGB" /> <statusCode code="completed" /> < effectiveTime value="" /> <value unit="pg" xsi:type="PQ" value="23.3" /> <interpretationCode codeSystem="local" code="*" /> <referenceRange> <observationRange> <text>27.0- 33.0</text> </observationRange> </referenceRange> </ observation> </component> <component> <observation moodCode= "EVN" classCode="OBS"> <templateId root="07.12.840.1.350883.10.20.22.4.2 " /> <id nullFlavor="NA" /> <code codeSystem="local" code= "MCHC" displayName="MEAN CELL HGB CONCENTRATION" /> <statusCode code= "completed" /> <effectiveTime value="178347340033" /> <value unit="g/dL" xsi:type="PQ" value="30.2" /> <interpretationCode codeSystem="local" code="*" /> <referenceRange> < observationRange> <text>32.0-37.0</text> </ observationRange> </referenceRange> </observation> </ component> <component> <observation moodCode="EVN" classCode="OBS"> <templateId root="840.1.823285.10..22.4.2" /> <id nullFlavor="NA" /> <code codeSystem="local" code="MCV" displayName= "MEAN CELL VOLUME" /> <statusCode code="completed" /> < effectiveTime value="001884492432" /> <value unit="fl" xsi:type="PQ" value="77.3" /> <interpretationCode codeSystem="local" code="*" /> <referenceRange> <observationRange> <text>80.0- 100.0</text> </observationRange> </referenceRange> </ observation> </component> <component> <observation moodCode= "EVN" classCode="OBS"> <templateId root="07.12.840.1.586011.10.20.22.4.2 " /> <id nullFlavor="NA" /> <code codeSystem="local" code="MO# " displayName="MONOCYTE #" /> <statusCode code="completed" /> <effectiveTime value="" /> <value unit="k/cumm" xsi:type= "PQ" value="1.6" /> <interpretationCode codeSystem="local" code="*" /> <referenceRange> <observationRange> <text>0.1- 1.0</text> </observationRange> </referenceRange> </ observation> </component> <component> <observation moodCode= "EVN" classCode="OBS"> <templateId root="216.840.1.287368.10..4.2 " /> <id nullFlavor="NA" /> <code codeSystem="local" code="MO& #37;" displayName="MONOCYTE %" /> <statusCode code="completed" /> <effectiveTime value="" /> <value unit="%" xsi :type="PQ" value="11.0" /> <interpretationCode codeSystem="local" code= "*" /> <referenceRange> <observationRange> < text>4-6</text> </observationRange> </referenceRange> </observation> </component> <component> <observation moodCode ="EVN" classCode="OBS"> <templateId root= "16.840.1.239566.03.15.22.4.2" /> <id nullFlavor="NA" /> < code codeSystem="local" code="MPVT" displayName="MEAN PLATELET VOLUME" /> <statusCode code="completed" /> <effectiveTime value=" " /> <value unit="fl" xsi:type="PQ" value="9.9" /> < referenceRange> <observationRange> <text>8.5-10.9</text > </observationRange> </referenceRange> </observation > </component> <component> <observation moodCode="EVN" classCode="OBS"> <templateId root="840.1.858136.03.15.22.4.2" /> <id nullFlavor="NA" /> <code codeSystem="local" code="OVAL" displayName="OVALOCYTES" /> <statusCode code="completed" /> < effectiveTime value="" /> <value unit="" xsi:type="PQ" value="NOTED" /> <referenceRange> <observationRange> <text /> </observationRange> </referenceRange> </observation> </component> <component> <observation moodCode ="EVN" classCode="OBS"> <templateId root= "840.1.666183.03.15.22.4.2" /> <id nullFlavor="NA" /> < code codeSystem="local" code="RBC" displayName="RED BLOOD CELL" /> < statusCode code="completed" /> <effectiveTime value="" /> <value unit="m/cumm" xsi:type="PQ" value="4.50" /> < referenceRange> <observationRange> <text>4.00-6.00</text > </observationRange> </referenceRange> </observation > </component> <component> <observation moodCode="EVN" classCode="OBS"> <templateId root="840.1.892258.1022.4.2" /> <id nullFlavor="NA" /> <code codeSystem="local" code="RDW" displayName="RED CELL DISTRIBUTION WIDTH" /> <statusCode code= "completed" /> <effectiveTime value="" /> <value unit="%" xsi:type="PQ" value="16.8" /> <interpretationCode codeSystem="local" code="*" /> <referenceRange> < observationRange> <text>11.0-15.6</text> </ observationRange> </referenceRange> </observation> </ component> <component> <observation moodCode="EVN" classCode="OBS"> <templateId root="216.840.1.652840.03.15.22.4.2" /> <id nullFlavor="NA" /> <code codeSystem="local" code="WBC" displayName= "WHITE BLOOD CELL" /> <statusCode code="completed" /> < effectiveTime value="755821230459" /> <value unit="k/cumm" xsi:type="PQ " value="14.3" /> <interpretationCode codeSystem="local" code="*" /> <referenceRange> <observationRange> <text>5.0- 10.0</text> </observationRange> </referenceRange> </ observation> </component> <component> <observation moodCode= "EVN" classCode="OBS"> <templateId root="216.840.1.439745.03.15.22.4.2 " /> <id nullFlavor="NA" /> <code codeSystem="local" code= "HGBT" displayName="HEMOGLOBIN" /> <statusCode code="completed" /> <effectiveTime value="967486149302" /> <value unit="gm/dL" xsi: type="PQ" value="10.5" /> <interpretationCode codeSystem="local" code= "*" /> <referenceRange> <observationRange> < text>12.0-16.0</text> </observationRange> </referenceRange> </observation> </component> <component> <observation moodCode="EVN" classCode="OBS"> <templateId root= "216.840.1.351437.1022.4.2" /> <id nullFlavor="NA" /> < code codeSystem="local" code="HCTT" displayName="HEMATOCRIT" /> < statusCode code="completed" /> <effectiveTime value="304602009783" /> <value unit="%" xsi:type="PQ" value="34.8" /> < interpretationCode codeSystem="local" code="*" /> <referenceRange> <observationRange> <text>37.0-47.0</text> </ observationRange> </referenceRange> </observation> </ component> <component> <observation moodCode="EVN" classCode="OBS"> <templateId root="07.12.840.1.698376.03.15.22.4.2" /> <id nullFlavor="NA" /> <code codeSystem="local" code="NRBC%" displayName="NRBC %" /> <statusCode code="completed" /> < effectiveTime value="033979916787" /> <value unit="/100WBC" xsi:type= "PQ" value="0.0" /> <referenceRange> <observationRange> <text>0.0-0.0</text> </observationRange> </ referenceRange> </observation> </component> <component> <observation moodCode="EVN" classCode="OBS"> <templateId root= "07.12.840.1.601574.10...4.2" /> <id nullFlavor="NA" /> < code codeSystem="local" code="PLTT" displayName="PLATELET COUNT" /> < statusCode code="completed" /> <effectiveTime value="002707120251" /> <value unit="k/cumm" xsi:type="PQ" value="235" /> < referenceRange> <observationRange> <text>150-400</text> </observationRange> </referenceRange> </observation > </component> <component> <observation moodCode="EVN" classCode="OBS"> <templateId root="2.840.1.375849.10.20.22.4.2" /> <id nullFlavor="NA" /> <code codeSystem="local" code="IG% " displayName="IMMATURE GRANULOCYTE %" /> <statusCode code= "completed" /> <effectiveTime value="711541751615" /> <value unit="%" xsi:type="PQ" value="0.4" /> <referenceRange> < observationRange> <text>0.0-0.6</text> </ observationRange> </referenceRange> </observation> </ component> <component> <observation moodCode="EVN" classCode="OBS"> <templateId root="07.12.840.1.425673.10..4.2" /> <id nullFlavor="NA" /> <code codeSystem="local" code="IG#" displayName= "IMMATURE GRANULOCYTE #" /> <statusCode code="completed" /> < effectiveTime value="684443999953" /> <value unit="k/cumm" xsi:type="PQ " value="0.05" /> <referenceRange> <observationRange> <text>0.00-0.09</text> </observationRange> </ referenceRange> </observation> </component> </organizer> </entry > <entry> <organizer moodCode="EVN" classCode="BATTERY"> <templateId root="07.12.840.1.218760.10..22.4.1" /> <id nullFlavor="NA" /> <code codeSystem="local" code="DIFFM" displayName="MANUAL DIFF(R)" /> < statusCode code="completed" /> <component> <observation moodCode= "EVN" classCode="OBS"> <templateId root="16.840.1.015910.104.2 " /> <id nullFlavor="NA" /> <code codeSystem="local" code= "BAND%" displayName="BAND %" /> <statusCode code="completed" / > <effectiveTime value="" /> <value unit="%" xsi:type="PQ" value="3" /> <referenceRange> < observationRange> <text>0-10</text> </observationRange> </referenceRange> </observation> </component> < component> <observation moodCode="EVN" classCode="OBS"> < templateId root="07.12.840.1.459523.104.2" /> <id nullFlavor="NA " /> <code codeSystem="local" code="MANDIFF" displayName="DIFFERENTIAL " /> <statusCode code="completed" /> <effectiveTime value= "" /> <value unit="" xsi:type="PQ" value="MANUAL" /> <referenceRange> <observationRange> <text /> </observationRange> </referenceRange> </observation> < /component> <component> <observation moodCode="EVN" classCode="OBS" > <templateId root="07.12.840.1.087044.104.2" /> <id nullFlavor="NA" /> <code codeSystem="local" code="SEG%" displayName ="SEGMENTED NEUTROPHIL %" /> <statusCode code="completed" /> <effectiveTime value="" /> <value unit="%" xsi:type ="PQ" value="74" /> <interpretationCode codeSystem="local" code="*" /> <referenceRange> <observationRange> <text>50- 70</text> </observationRange> </referenceRange> </ observation> </component> </organizer> </entry> <entry> <organizer moodCode="EVN" classCode="BATTERY"> <templateId root= "07.12.840.1.857754.10...4.1" /> <id nullFlavor="NA" /> <code codeSystem="local" code="LIVER" displayName="HEPATIC FUNCTION PANEL" /> < statusCode code="completed" /> <component> <observation moodCode= "EVN" classCode="OBS"> <templateId root="16.840.1.589128.10...4.2 " /> <id nullFlavor="NA" /> <code codeSystem="local" code= "BILUC" displayName="BILI UNCONJUGATED" /> <statusCode code="completed " /> <effectiveTime value="" /> <value unit="mg/dL " xsi:type="PQ" value="0.3" /> <referenceRange> < observationRange> <text>0.0-0.7</text> </ observationRange> </referenceRange> </observation> </ component> <component> <observation moodCode="EVN" classCode="OBS"> <templateId root="07.12.840.1.376411.10..4.2" /> <id nullFlavor="NA" /> <code codeSystem="local" code="AST" displayName="AST /SGOT" /> <statusCode code="completed" /> <effectiveTime value ="" /> <value unit="Units/L" xsi:type="PQ" value="59" /> <interpretationCode codeSystem="local" code="*" /> < referenceRange> <observationRange> <text>10-37</text> </observationRange> </referenceRange> </observation> </component> <component> <observation moodCode="EVN" classCode= "OBS"> <templateId root="07.12.840.1.147499.10.20.22.4.2" /> < id nullFlavor="NA" /> <code codeSystem="local" code="ALT" displayName= "ALT/SGPT" /> <statusCode code="completed" /> <effectiveTime value="" /> <value unit="Units/L" xsi:type="PQ" value="35" /> <referenceRange> <observationRange> <text>& lt; 66</text> </observationRange> </referenceRange> < /observation> </component> <component> <observation moodCode= "EVN" classCode="OBS"> <templateId root="840.1.352598.1022.4.2 " /> <id nullFlavor="NA" /> <code codeSystem="local" code="TP " displayName="TOTAL PROTEIN" /> <statusCode code="completed" /> <effectiveTime value="032221733729" /> <value unit="gm/dL" xsi:type ="PQ" value="8.0" /> <referenceRange> <observationRange> <text>6.4-8.2</text> </observationRange> </ referenceRange> </observation> </component> <component> <observation moodCode="EVN" classCode="OBS"> <templateId root= "07.12.840.1.317505.10.2022.4.2" /> <id nullFlavor="NA" /> < code codeSystem="local" code="ALB" displayName="ALBUMIN" /> < statusCode code="completed" /> <effectiveTime value="274789281871" /> <value unit="gm/dL" xsi:type="PQ" value="3.5" /> < referenceRange> <observationRange> <text>3.4-5.0</text> </observationRange> </referenceRange> </observation > </component> <component> <observation moodCode="EVN" classCode="OBS"> <templateId root="07.12.840.1.425915.10..22.4.2" /> <id nullFlavor="NA" /> <code codeSystem="local" code="BILTOT" displayName="BILI TOTAL" /> <statusCode code="completed" /> < effectiveTime value="488201355461" /> <value unit="mg/dL" xsi:type="PQ " value="0.4" /> <referenceRange> <observationRange> <text>0.0-1.0</text> </observationRange> </ referenceRange> </observation> </component> <component> <observation moodCode="EVN" classCode="OBS"> <templateId root= "07.12.840.1.482639.10..22.4.2" /> <id nullFlavor="NA" /> < code codeSystem="local" code="ALKP" displayName="ALKALINE PHOSPHATASE TOTAL" /> <statusCode code="completed" /> <effectiveTime value= "809055164076" /> <value unit="IU/L" xsi:type="PQ" value="121" /> <interpretationCode codeSystem="local" code="*" /> <referenceRange > <observationRange> <text>45-117</text> </ observationRange> </referenceRange> </observation> </ component> <component> <observation moodCode="EVN" classCode="OBS"> <templateId root="07.12.830.1.246714.10...4.2" /> <id nullFlavor="NA" /> <code codeSystem="local" code="BILC" displayName= "BILI CONJUGATED" /> <statusCode code="completed" /> < effectiveTime value="864179841659" /> <value unit="mg/dL" xsi:type="PQ " value="0.1" /> <referenceRange> <observationRange> <text>0.0-0.3</text> </observationRange> </ referenceRange> </observation> </component> </organizer> </entry > <entry> <organizer moodCode="EVN" classCode="BATTERY"> <templateId root="216.840.1.777396.10..22.4.1" /> <id nullFlavor="NA" /> <code codeSystem="local" code="LIP" displayName="LIPASE" /> <statusCode code= "completed" /> <component> <observation moodCode="EVN" classCode= "OBS"> <templateId root="216.840.1.179343.10..22.4.2" /> < id nullFlavor="NA" /> <code codeSystem="local" code="LIP" displayName= "LIPASE" /> <statusCode code="completed" /> <effectiveTime value="129559240987" /> <value unit="Units/L" xsi:type="PQ" value="62" /> <interpretationCode codeSystem="local" code="*" /> < referenceRange> <observationRange> <text>73-393</text> </observationRange> </referenceRange> </observation> </component> </organizer> </entry> <entry> <organizer moodCode= "EVN" classCode="BATTERY"> <templateId root="216.840.1.955911..22.4.1 " /> <id nullFlavor="NA" /> <code codeSystem="local" code="iCHEM8" displayName="CHEM/HEM PROFILE-BEDSIDE" /> <statusCode code="completed" /> <component> <observation moodCode="EVN" classCode="OBS"> < templateId root="840.1.824659.03.15.22.4.2" /> <id nullFlavor="NA " /> <code codeSystem="local" code="K" displayName="POTASSIUM" /> <statusCode code="completed" /> <effectiveTime value="314639608861 " /> <value unit="mmol/L" xsi:type="PQ" value="3.5" /> < referenceRange> <observationRange> <text>3.5-5.3</text> </observationRange> </referenceRange> </observation > </component> <component> <observation moodCode="EVN" classCode="OBS"> <templateId root="840.1.634626.03.15.22.4.2" /> <id nullFlavor="NA" /> <code codeSystem="local" code="CMETHOD " displayName="METHOD" /> <statusCode code="completed" /> < effectiveTime value="100563218661" /> <value unit="" xsi:type="PQ" value="Bedside" /> <referenceRange> <observationRange> <text /> </observationRange> </referenceRange> </observation> </component> <component> <observation moodCode="EVN" classCode="OBS"> <templateId root= "840.1.541330.03.15.22.4.2" /> <id nullFlavor="NA" /> < code codeSystem="local" code="GAP" displayName="ANION GAP" /> < statusCode code="completed" /> <effectiveTime value="860607411225" /> <value unit="mmol/L" xsi:type="PQ" value="17" /> < referenceRange> <observationRange> <text>10-20</text> </observationRange> </referenceRange> </observation> </component> <component> <observation moodCode="EVN" classCode= "OBS"> <templateId root="216.840.1.771706.10..4.2" /> < id nullFlavor="NA" /> <code codeSystem="local" code="HMETHOD" displayName="METHOD" /> <statusCode code="completed" /> < effectiveTime value="514432327119" /> <value unit="" xsi:type="PQ" value="Bedside" /> <referenceRange> <observationRange> <text /> </observationRange> </referenceRange> </observation> </component> <component> <observation moodCode="EVN" classCode="OBS"> <templateId root= "07.12.840.1.165593.10...4.2" /> <id nullFlavor="NA" /> < code codeSystem="local" code="GLU" displayName="GLUCOSE" /> < statusCode code="completed" /> <effectiveTime value="" /> <value unit="mg/dL" xsi:type="PQ" value="114" /> < interpretationCode codeSystem="local" code="*" /> <referenceRange> <observationRange> <text>70-99</text> </ observationRange> </referenceRange> </observation> </ component> <component> <observation moodCode="EVN" classCode="OBS"> <templateId root="16.840.1.265194.10...4.2" /> <id nullFlavor="NA" /> <code codeSystem="local" code="BUN" displayName= "BLOOD UREA NITROGEN" /> <statusCode code="completed" /> < effectiveTime value="446586355007" /> <value unit="mg/dL" xsi:type="PQ " value="10" /> <referenceRange> <observationRange> <text>7-20</text> </observationRange> </referenceRange > </observation> </component> <component> <observation moodCode="EVN" classCode="OBS"> <templateId root= "2.16.840.1.529231.10..22.4.2" /> <id nullFlavor="NA" /> < code codeSystem="local" code="CREAT" displayName="CREATININE" /> < statusCode code="completed" /> <effectiveTime value="854203839128" /> <value unit="mg/dL" xsi:type="PQ" value="0.7" /> < referenceRange> <observationRange> <text>0.6-1.0</text> </observationRange> </referenceRange> </observation > </component> <component> <observation moodCode="EVN" classCode="OBS"> <templateId root="2.16.840.1.426086.10..22.4.2" /> <id nullFlavor="NA" /> <code codeSystem="local" code="HGBT" displayName="HEMOGLOBIN" /> <statusCode code="completed" /> < effectiveTime value="823691953870" /> <value unit="gm/dL" xsi:type="PQ " value="12.6" /> <referenceRange> <observationRange> <text>12.0-16.0</text> </observationRange> </ referenceRange> </observation> </component> <component> <observation moodCode="EVN" classCode="OBS"> <templateId root= "16.840.1.978266.10..22.4.2" /> <id nullFlavor="NA" /> < code codeSystem="local" code="HCTT" displayName="HEMATOCRIT" /> < statusCode code="completed" /> <effectiveTime value="407143348149" /> <value unit="%" xsi:type="PQ" value="37.0" /> < referenceRange> <observationRange> <text>37.0-47.0</text > </observationRange> </referenceRange> </observation > </component> <component> <observation moodCode="EVN" classCode="OBS"> <templateId root="16.840.1.205277.10...4.2" /> <id nullFlavor="NA" /> <code codeSystem="local" code="NA" displayName="SODIUM" /> <statusCode code="completed" /> < effectiveTime value="861286553271" /> <value unit="mmol/L" xsi:type="PQ " value="137" /> <referenceRange> <observationRange> <text>135-148</text> </observationRange> </ referenceRange> </observation> </component> <component> <observation moodCode="EVN" classCode="OBS"> <templateId root= "07.12.840.1.816810.10..22.4.2" /> <id nullFlavor="NA" /> < code codeSystem="local" code="CL" displayName="CHLORIDE" /> < statusCode code="completed" /> <effectiveTime value="731082803239" /> <value unit="mmol/L" xsi:type="PQ" value="99" /> < referenceRange> <observationRange> <text>98-110</text> </observationRange> </referenceRange> </observation> </component> <component> <observation moodCode="EVN" classCode ="OBS"> <templateId root="16.840.1.680308.10..4.2" /> < id nullFlavor="NA" /> <code codeSystem="local" code="CO2" displayName= "CARBON DIOXIDE" /> <statusCode code="completed" /> < effectiveTime value="177002043284" /> <value unit="mmol/L" xsi:type="PQ " value="24" /> <referenceRange> <observationRange> <text>21-32</text> </observationRange> </ referenceRange> </observation> </component> <component> <observation moodCode="EVN" classCode="OBS"> <templateId root= "07.12.840.1.945388.03.15.22.4.2" /> <id nullFlavor="NA" /> < code codeSystem="local" code="CAION" displayName="CALCIUM IONIZED" /> < statusCode code="completed" /> <effectiveTime value="699630355576" /> <value unit="mg/dL" xsi:type="PQ" value="4.3" /> < interpretationCode codeSystem="local" code="*" /> <referenceRange> <observationRange> <text>4.5-5.3</text> </ observationRange> </referenceRange> </observation> </ component> </organizer> </entry> <entry> <organizer moodCode="EVN" classCode="BATTERY"> <templateId root="16.840.1.005473.10...4.1" /> <id nullFlavor="NA" /> <code codeSystem="local" code="UA" displayName= "URINALYSIS, ROUTINE" /> <statusCode code="completed" /> <component> <observation moodCode="EVN" classCode="OBS"> <templateId root= "16.840.1.301188.10..4.2" /> <id nullFlavor="NA" /> < code codeSystem="local" code="LEUESU" displayName="UA LEUKOCYTE ESTERASE DIPSTICK" /> <statusCode code="completed" /> <effectiveTime value="" /> <value unit="" xsi:type="PQ" value="1+" /> <interpretationCode codeSystem="local" code="*" /> < referenceRange> <observationRange> <text>NEGATIVE</text > </observationRange> </referenceRange> </observation > </component> <component> <observation moodCode="EVN" classCode="OBS"> <templateId root="07.12.840.1.017637.03.15.22.4.2" /> <id nullFlavor="NA" /> <code codeSystem="local" code="NITRIU" displayName="UA NITRITE DIPSTICK" /> <statusCode code="completed" /> <effectiveTime value="" /> <value unit="" xsi:type= "PQ" value="POSITIVE" /> <interpretationCode codeSystem="local" code="* " /> <referenceRange> <observationRange> <text> NEGATIVE</text> </observationRange> </referenceRange> </observation> </component> <component> <observation moodCode ="EVN" classCode="OBS"> <templateId root= "07.12.840.1.672460...4.2" /> <id nullFlavor="NA" /> < code codeSystem="local" code="PROTEIU" displayName="UA PROTEIN DIPSTICK" /> <statusCode code="completed" /> <effectiveTime value= "" /> <value unit="" xsi:type="PQ" value="3+" /> < interpretationCode codeSystem="local" code="*" /> <referenceRange> <observationRange> <text>NEGATIVE</text> </ observationRange> </referenceRange> </observation> </ component> <component> <observation moodCode="EVN" classCode="OBS"> <templateId root="07.12.840.1.798669.10..4.2" /> <id nullFlavor="NA" /> <code codeSystem="local" code="DGLUU" displayName= "UA GLUCOSE DIPSTICK" /> <statusCode code="completed" /> < effectiveTime value="" /> <value unit="" xsi:type="PQ" value="NEGATIVE" /> <referenceRange> <observationRange> <text>NEGATIVE</text> </observationRange> </ referenceRange> </observation> </component> <component> <observation moodCode="EVN" classCode="OBS"> <templateId root= "07.12.840.1.370695.03.15.22.4.2" /> <id nullFlavor="NA" /> < code codeSystem="local" code="KETONU" displayName="UA KETONE DIPSTICK" /> <statusCode code="completed" /> <effectiveTime value=" " /> <value unit="" xsi:type="PQ" value="TRACE" /> < interpretationCode codeSystem="local" code="*" /> <referenceRange> <observationRange> <text>NEGATIVE</text> </ observationRange> </referenceRange> </observation> </ component> <component> <observation moodCode="EVN" classCode="OBS"> <templateId root="16.840.1.443399..22.4.2" /> <id nullFlavor="NA" /> <code codeSystem="local" code="UROBILU" displayName= "UA UROBILINOGEN DIPSTICK" /> <statusCode code="completed" /> <effectiveTime value="" /> <value unit="" xsi:type="PQ" value="2+" /> <interpretationCode codeSystem="local" code="*" /> <referenceRange> <observationRange> <text>NORMAL</ text> </observationRange> </referenceRange> </ observation> </component> <component> <observation moodCode= "EVN" classCode="OBS"> <templateId root="2.16.840.1.011559...4.2 " /> <id nullFlavor="NA" /> <code codeSystem="local" code= "BILU" displayName="UA BILIRUBIN DIPSTICK" /> <statusCode code= "completed" /> <effectiveTime value="" /> <value unit="" xsi:type="PQ" value="1+" /> <interpretationCode codeSystem= "local" code="*" /> <referenceRange> <observationRange> <text>NEGATIVE</text> </observationRange> </ referenceRange> </observation> </component> <component> <observation moodCode="EVN" classCode="OBS"> <templateId root= "2.16.840.1.305443.10.4.2" /> <id nullFlavor="NA" /> < code codeSystem="local" code="LON" displayName="UA BLOOD DIPSTICK" /> < statusCode code="completed" /> <effectiveTime value="" /> <value unit="" xsi:type="PQ" value="3+" /> < interpretationCode codeSystem="local" code="*" /> <referenceRange> <observationRange> <text>NEGATIVE</text> </ observationRange> </referenceRange> </observation> </ component> <component> <observation moodCode="EVN" classCode="OBS"> <templateId root="2.16.840.1.798630.10.4.2" /> <id nullFlavor="NA" /> <code codeSystem="local" code="SPGRU" displayName= "UA SPECIFIC GRAVITY" /> <statusCode code="completed" /> < effectiveTime value="" /> <value unit="" xsi:type="PQ" value="1.025" /> <referenceRange> <observationRange> <text>1.015-1.025</text> </observationRange> </ referenceRange> </observation> </component> <component> <observation moodCode="EVN" classCode="OBS"> <templateId root= "2.16.840.1.384988.03.15.22.4.2" /> <id nullFlavor="NA" /> < code codeSystem="local" code="WILLOW" displayName="UR PH" /> <statusCode code="completed" /> <effectiveTime value="" /> < value unit="" xsi:type="PQ" value="6.0" /> <referenceRange> <observationRange> <text>5.0-7.0</text> </ observationRange> </referenceRange> </observation> </ component> </organizer> </entry> <entry> <organizer moodCode="EVN" classCode="BATTERY"> <templateId root="2.16.840.1.247352.10..4.1" /> <id nullFlavor="NA" /> <code codeSystem="local" code="UAMICRO" displayName="UA MICROSCOPIC" /> <statusCode code="completed" /> < component> <observation moodCode="EVN" classCode="OBS"> < templateId root="07.12.840.1.480801.10..22.4.2" /> <id nullFlavor="NA " /> <code codeSystem="local" code="BACU" displayName="UA BACTERIA" /> <statusCode code="completed" /> <effectiveTime value= "" /> <value unit="" xsi:type="PQ" value="4+" /> < interpretationCode codeSystem="local" code="*" /> <referenceRange> <observationRange> <text>NEGATIVE</text> </ observationRange> </referenceRange> </observation> </ component> <component> <observation moodCode="EVN" classCode="OBS"> <templateId root="07.12.840.1.554099...4.2" /> <id nullFlavor="NA" /> <code codeSystem="local" code="EPIU" displayName=" UA EPITHELIAL CELLS" /> <statusCode code="completed" /> < effectiveTime value="" /> <value unit="epi/hpf" xsi:type= "PQ" value="4+" /> <interpretationCode codeSystem="local" code="*" /> <referenceRange> <observationRange> <text>0 - 1 +</text> </observationRange> </referenceRange> </ observation> </component> <component> <observation moodCode= "EVN" classCode="OBS"> <templateId root="07.12.840.1.203910.10.4.2 " /> <id nullFlavor="NA" /> <code codeSystem="local" code= "MUCUSU" displayName="UA MUCUS" /> <statusCode code="completed" /> <effectiveTime value="" /> <value unit="" xsi:type= "PQ" value="3+" /> <interpretationCode codeSystem="local" code="*" /> <referenceRange> <observationRange> <text>NEG TO 1+</text> </observationRange> </referenceRange> </ observation> </component> <component> <observation moodCode= "EVN" classCode="OBS"> <templateId root="16.840.1.862373.10..4.2 " /> <id nullFlavor="NA" /> <code codeSystem="local" code= "RBCU" displayName="UA RBC" /> <statusCode code="completed" /> <effectiveTime value="" /> <value unit="rbc/hpf" xsi:type ="PQ" value="0-3" /> <referenceRange> <observationRange> <text>0 - 3</text> </observationRange> </ referenceRange> </observation> </component> <component> <observation moodCode="EVN" classCode="OBS"> <templateId root= "840.1.874146.03.15.22.4.2" /> <id nullFlavor="NA" /> < code codeSystem="local" code="UAVOL" displayName="UA VOLUME FOR EXAM" /> <statusCode code="completed" /> <effectiveTime value="" /> <value unit="mL" xsi:type="PQ" value="12.0" /> < referenceRange> <observationRange> <text>(12mL STD)</ text> </observationRange> </referenceRange> </ observation> </component> <component> <observation moodCode= "EVN" classCode="OBS"> <templateId root="07.12.840.1.577110.10.22.4.2 " /> <id nullFlavor="NA" /> <code codeSystem="local" code= "WBCU" displayName="UA WBC" /> <statusCode code="completed" /> <effectiveTime value="929865452827" /> <value unit="wbc/hpf" xsi:type ="PQ" value="PACKED FIELD" /> <interpretationCode codeSystem="local" code="*" /> <referenceRange> <observationRange> <text>0 - 5</text> </observationRange> </referenceRange> </observation> </component> </organizer> </entry> <entry> < organizer moodCode="EVN" classCode="BATTERY"> <templateId root= "216.840.1.508278.10..22.4.1" /> <id nullFlavor="NA" /> <code codeSystem="local" code="PREGU" displayName="UR TEST" /> < statusCode code="completed" /> <component> <observation moodCode= "EVN" classCode="OBS"> <templateId root="16.840.1.615060.10..22.4.2 " /> <id nullFlavor="NA" /> <code codeSystem="local" code= "PREGU" displayName="UR TEST" /> <statusCode code="completed " /> <effectiveTime value="368507081418" /> <value unit="" xsi :type="PQ" value="NEGATIVE" /> <referenceRange> < observationRange> <text>NEGATIVE</text> </ observationRange> </referenceRange> </observation> </ component> </organizer> </entry> <entry> <organizer moodCode="EVN" classCode="BATTERY"> <templateId root="16.840.1.154553.10..22.4.1" /> <id nullFlavor="NA" /> <code codeSystem="local" code="UC" displayName= "URINE CULTURE" /> <statusCode code="completed" /> <component> <observation moodCode="EVN" classCode="OBS"> <templateId root= "2.16.840.1.692999.10..22.4.2" /> <id nullFlavor="NA" /> < code codeSystem="local" code="MB" displayName="Microbiology" /> < statusCode code="completed" /> <effectiveTime value="688002821754" /> <value xsi:type="ST" value="<pre><b>URINE CULTURE</b&gt ; See BelowURINE CULTURE(F) Red Date/Time: 06/30/2017 23:47 Matty Date/Time: 07/03/2017 11:03SOURCE: URINESPEC DESC: CLEAN CATCHTREATMENT OF ASYMPTOMATIC BACTERIURIA IS NOT USUALLYCLINICALLY INDICATED.Organism #1 ESCHERICHIA COLICOLONY COUNT >100,000 CFU/ML InterpAMPICILLIN VITEK >=32 RAMPICILLIN/SULBACTAM VITEK 16 ICEFAZOLIN VITEK & lt;=4 SCEFEPIME VITEK <=1 SCEFTRIAXONE VITEK <=1 SGENTAMICIN VITEK <=1 SNITROFURANTOIN VITEK <=16 SPIPERACILLIN/TAZOBZCTAM VITEK 8 STRIMETH/SULFA VITEK <=20 [facility] [place] [address]</pre>" /> <referenceRange> <observationRange> <text /> </ observationRange> </referenceRange> </observation> </ component> </organizer> </entry> <entry> <organizer moodCode="EVN" classCode="BATTERY"> <templateId root="2.16.840.1.692998.10.20.22.4.1" /> <id nullFlavor="NA" /> <code codeSystem="local" code="CBCD" displayName="CBC W/DIFF" /> <statusCode code="completed" /> <component > <observation moodCode="EVN" classCode="OBS"> <templateId root= "216.840.1.046540.10.22.4.2" /> <id nullFlavor="NA" /> < code codeSystem="local" code="GR#" displayName="GRANULOCYTE #" /> < statusCode code="completed" /> <effectiveTime value="" /> <value unit="k/cumm" xsi:type="PQ" value="9.8" /> < interpretationCode codeSystem="local" code="*" /> <referenceRange> <observationRange> <text>2.0-9.0</text> </ observationRange> </referenceRange> </observation> </ component> <component> <observation moodCode="EVN" classCode="OBS"> <templateId root="07.12.840.1.782199.03.15.224.2" /> <id nullFlavor="NA" /> <code codeSystem="local" code="LY#" displayName= "LYMPHOCYTE #" /> <statusCode code="completed" /> < effectiveTime value="" /> <value unit="k/cumm" xsi:type="PQ " value="1.3" /> <referenceRange> <observationRange> <text>1.0-4.0</text> </observationRange> </ referenceRange> </observation> </component> <component> <observation moodCode="EVN" classCode="OBS"> <templateId root= "16.840.1.278668.22.4.2" /> <id nullFlavor="NA" /> < code codeSystem="local" code="LY%" displayName="LYMPHOCYTE %" /> <statusCode code="completed" /> <effectiveTime value="" /> <value unit="%" xsi:type="PQ" value="10.0" /> < interpretationCode codeSystem="local" code="*" /> <referenceRange> <observationRange> <text>20-30</text> </ observationRange> </referenceRange> </observation> </ component> <component> <observation moodCode="EVN" classCode="OBS"> <templateId root="216.840.1.837040.10..4.2" /> <id nullFlavor="NA" /> <code codeSystem="local" code="MCH" displayName= "MEAN CELL HGB" /> <statusCode code="completed" /> < effectiveTime value="" /> <value unit="pg" xsi:type="PQ" value="23.4" /> <interpretationCode codeSystem="local" code="*" /> <referenceRange> <observationRange> <text>27.0- 33.0</text> </observationRange> </referenceRange> </ observation> </component> <component> <observation moodCode= "EVN" classCode="OBS"> <templateId root="216.840.1.726248.10..22.4.2 " /> <id nullFlavor="NA" /> <code codeSystem="local" code= "MCHC" displayName="MEAN CELL HGB CONCENTRATION" /> <statusCode code= "completed" /> <effectiveTime value="" /> <value unit="g/dL" xsi:type="PQ" value="30.2" /> <interpretationCode codeSystem="local" code="*" /> <referenceRange> < observationRange> <text>32.0-37.0</text> </ observationRange> </referenceRange> </observation> </ component> <component> <observation moodCode="EVN" classCode="OBS"> <templateId root="07.12.840.1.652426.10.22.4.2" /> <id nullFlavor="NA" /> <code codeSystem="local" code="MCV" displayName= "MEAN CELL VOLUME" /> <statusCode code="completed" /> < effectiveTime value="" /> <value unit="fl" xsi:type="PQ" value="77.3" /> <interpretationCode codeSystem="local" code="*" /> <referenceRange> <observationRange> <text>80.0- 100.0</text> </observationRange> </referenceRange> </ observation> </component> <component> <observation moodCode= "EVN" classCode="OBS"> <templateId root="840.1.077313.03.15.224.2 " /> <id nullFlavor="NA" /> <code codeSystem="local" code="MO# " displayName="MONOCYTE #" /> <statusCode code="completed" /> <effectiveTime value="" /> <value unit="k/cumm" xsi:type= "PQ" value="1.5" /> <interpretationCode codeSystem="local" code="*" /> <referenceRange> <observationRange> <text>0.1- 1.0</text> </observationRange> </referenceRange> </ observation> </component> <component> <observation moodCode= "EVN" classCode="OBS"> <templateId root="07.12.840.1.543278.22.4.2 " /> <id nullFlavor="NA" /> <code codeSystem="local" code="MO& #37;" displayName="MONOCYTE %" /> <statusCode code="completed" /> <effectiveTime value="" /> <value unit="%" xsi :type="PQ" value="12.0" /> <interpretationCode codeSystem="local" code= "*" /> <referenceRange> <observationRange> < text>4-6</text> </observationRange> </referenceRange> </observation> </component> <component> <observation moodCode ="EVN" classCode="OBS"> <templateId root= "840.1.026466.10.4.2" /> <id nullFlavor="NA" /> < code codeSystem="local" code="MPVT" displayName="MEAN PLATELET VOLUME" /> <statusCode code="completed" /> <effectiveTime value=" " /> <value unit="fl" xsi:type="PQ" value="9.6" /> < referenceRange> <observationRange> <text>8.5-10.9</text > </observationRange> </referenceRange> </observation > </component> <component> <observation moodCode="EVN" classCode="OBS"> <templateId root="840.1.931692.10.4.2" /> <id nullFlavor="NA" /> <code codeSystem="local" code="OVAL" displayName="OVALOCYTES" /> <statusCode code="completed" /> < effectiveTime value="" /> <value unit="" xsi:type="PQ" value="NOTED" /> <referenceRange> <observationRange> <text /> </observationRange> </referenceRange> </observation> </component> <component> <observation moodCode ="EVN" classCode="OBS"> <templateId root= "840.1.822143.1022.4.2" /> <id nullFlavor="NA" /> < code codeSystem="local" code="RBC" displayName="RED BLOOD CELL" /> < statusCode code="completed" /> <effectiveTime value="" /> <value unit="m/cumm" xsi:type="PQ" value="4.19" /> < referenceRange> <observationRange> <text>4.00-6.00</text > </observationRange> </referenceRange> </observation > </component> <component> <observation moodCode="EVN" classCode="OBS"> <templateId root="2.16.840.1.070674.10..22.4.2" /> <id nullFlavor="NA" /> <code codeSystem="local" code="RDW" displayName="RED CELL DISTRIBUTION WIDTH" /> <statusCode code= "completed" /> <effectiveTime value="" /> <value unit="%" xsi:type="PQ" value="16.6" /> <interpretationCode codeSystem="local" code="*" /> <referenceRange> < observationRange> <text>11.0-15.6</text> </ observationRange> </referenceRange> </observation> </ component> <component> <observation moodCode="EVN" classCode="OBS"> <templateId root="216.840.1.752699.10..22.4.2" /> <id nullFlavor="NA" /> <code codeSystem="local" code="WBC" displayName= "WHITE BLOOD CELL" /> <statusCode code="completed" /> < effectiveTime value="" /> <value unit="k/cumm" xsi:type="PQ " value="12.5" /> <interpretationCode codeSystem="local" code="*" /> <referenceRange> <observationRange> <text>5.0- 10.0</text> </observationRange> </referenceRange> </ observation> </component> <component> <observation moodCode= "EVN" classCode="OBS"> <templateId root="16.840.1.295782.10.2022.4.2 " /> <id nullFlavor="NA" /> <code codeSystem="local" code= "HGBT" displayName="HEMOGLOBIN" /> <statusCode code="completed" /> <effectiveTime value="" /> <value unit="gm/dL" xsi: type="PQ" value="9.8" /> <interpretationCode codeSystem="local" code="* " /> <referenceRange> <observationRange> <text> 12.0-16.0</text> </observationRange> </referenceRange> </observation> </component> <component> <observation moodCode="EVN" classCode="OBS"> <templateId root= "07.12.840.1.459871.1022.4.2" /> <id nullFlavor="NA" /> < code codeSystem="local" code="HCTT" displayName="HEMATOCRIT" /> < statusCode code="completed" /> <effectiveTime value="368336000883" /> <value unit="%" xsi:type="PQ" value="32.4" /> < interpretationCode codeSystem="local" code="*" /> <referenceRange> <observationRange> <text>37.0-47.0</text> </ observationRange> </referenceRange> </observation> </ component> <component> <observation moodCode="EVN" classCode="OBS"> <templateId root="07.12.840.1.115053.10.2022.4.2" /> <id nullFlavor="NA" /> <code codeSystem="local" code="NRBC%" displayName="NRBC %" /> <statusCode code="completed" /> < effectiveTime value="083028711237" /> <value unit="/100WBC" xsi:type= "PQ" value="0.0" /> <referenceRange> <observationRange> <text>0.0-0.0</text> </observationRange> </ referenceRange> </observation> </component> <component> <observation moodCode="EVN" classCode="OBS"> <templateId root= "216.840.1.443453.10.20.22.4.2" /> <id nullFlavor="NA" /> < code codeSystem="local" code="PLTT" displayName="PLATELET COUNT" /> < statusCode code="completed" /> <effectiveTime value="" /> <value unit="k/cumm" xsi:type="PQ" value="190" /> < referenceRange> <observationRange> <text>150-400</text> </observationRange> </referenceRange> </observation > </component> <component> <observation moodCode="EVN" classCode="OBS"> <templateId root="2.16.840.1.934983.10.20.22.4.2" /> <id nullFlavor="NA" /> <code codeSystem="local" code="IG% " displayName="IMMATURE GRANULOCYTE %" /> <statusCode code= "completed" /> <effectiveTime value="574156778172" /> <value unit="%" xsi:type="PQ" value="0.5" /> <referenceRange> < observationRange> <text>0.0-0.6</text> </ observationRange> </referenceRange> </observation> </ component> <component> <observation moodCode="EVN" classCode="OBS"> <templateId root="2.16.840.1.638704.10..4.2" /> <id nullFlavor="NA" /> <code codeSystem="local" code="IG#" displayName= "IMMATURE GRANULOCYTE #" /> <statusCode code="completed" /> < effectiveTime value="" /> <value unit="k/cumm" xsi:type="PQ " value="0.06" /> <referenceRange> <observationRange> <text>0.00-0.09</text> </observationRange> </ referenceRange> </observation> </component> </organizer> </entry > <entry> <organizer moodCode="EVN" classCode="BATTERY"> <templateId root="840.1.149633.03.15.22.4.1" /> <id nullFlavor="NA" /> <code codeSystem="local" code="DIFFM" displayName="MANUAL DIFF(R)" /> < statusCode code="completed" /> <component> <observation moodCode= "EVN" classCode="OBS"> <templateId root="07.12.840.1.615783.10..4.2 " /> <id nullFlavor="NA" /> <code codeSystem="local" code= "BAND%" displayName="BAND %" /> <statusCode code="completed" / > <effectiveTime value="" /> <value unit="%" xsi:type="PQ" value="5" /> <referenceRange> < observationRange> <text>0-10</text> </observationRange> </referenceRange> </observation> </component> < component> <observation moodCode="EVN" classCode="OBS"> < templateId root="07.12.840.1.826278.03.15.22.4.2" /> <id nullFlavor="NA " /> <code codeSystem="local" code="MANDIFF" displayName="DIFFERENTIAL " /> <statusCode code="completed" /> <effectiveTime value= "140544761846" /> <value unit="" xsi:type="PQ" value="MANUAL" /> <referenceRange> <observationRange> <text /> </observationRange> </referenceRange> </observation> < /component> <component> <observation moodCode="EVN" classCode="OBS" > <templateId root="07.12.840.1.567049.03.15.224.2" /> <id nullFlavor="NA" /> <code codeSystem="local" code="SEG%" displayName ="SEGMENTED NEUTROPHIL %" /> <statusCode code="completed" /> <effectiveTime value="945773529524" /> <value unit="%" xsi:type ="PQ" value="73" /> <interpretationCode codeSystem="local" code="*" /> <referenceRange> <observationRange> <text>50- 70</text> </observationRange> </referenceRange> </ observation> </component> </organizer> </entry> <entry> <organizer moodCode="EVN" classCode="BATTERY"> <templateId root= "07.12.840.1.188650.03.15.22.4.1" /> <id nullFlavor="NA" /> <code codeSystem="local" code="iCHEM8" displayName="CHEM/HEM PROFILE-BEDSIDE" /> <statusCode code="completed" /> <component> <observation moodCode= "EVN" classCode="OBS"> <templateId root="07.12.840.1.576751.03.15.22.4.2 " /> <id nullFlavor="NA" /> <code codeSystem="local" code="K" displayName="POTASSIUM" /> <statusCode code="completed" /> < effectiveTime value="945731583234" /> <value unit="mmol/L" xsi:type="PQ " value="3.3" /> <interpretationCode codeSystem="local" code="*" /> <referenceRange> <observationRange> <text>3.5-5.3 </text> </observationRange> </referenceRange> </ observation> </component> <component> <observation moodCode= "EVN" classCode="OBS"> <templateId root="216.840.1.786708.10..22.4.2 " /> <id nullFlavor="NA" /> <code codeSystem="local" code= "CMETHOD" displayName="METHOD" /> <statusCode code="completed" /> <effectiveTime value="604846691257" /> <value unit="" xsi:type="PQ " value="Bedside" /> <referenceRange> <observationRange> <text /> </observationRange> </referenceRange> </observation> </component> <component> <observation moodCode="EVN" classCode="OBS"> <templateId root= "16.840.1.432253.10..22.4.2" /> <id nullFlavor="NA" /> < code codeSystem="local" code="GAP" displayName="ANION GAP" /> < statusCode code="completed" /> <effectiveTime value="154166984403" /> <value unit="mmol/L" xsi:type="PQ" value="15" /> < referenceRange> <observationRange> <text>10-20</text> </observationRange> </referenceRange> </observation> </component> <component> <observation moodCode="EVN" classCode= "OBS"> <templateId root="840.1.571688.10..22.4.2" /> < id nullFlavor="NA" /> <code codeSystem="local" code="HMETHOD" displayName="METHOD" /> <statusCode code="completed" /> < effectiveTime value="750027239717" /> <value unit="" xsi:type="PQ" value="Bedside" /> <referenceRange> <observationRange> <text /> </observationRange> </referenceRange> </observation> </component> <component> <observation moodCode="EVN" classCode="OBS"> <templateId root= "2.16.840.1.454054.10..4.2" /> <id nullFlavor="NA" /> < code codeSystem="local" code="GLU" displayName="GLUCOSE" /> < statusCode code="completed" /> <effectiveTime value="533739681215" /> <value unit="mg/dL" xsi:type="PQ" value="106" /> < interpretationCode codeSystem="local" code="*" /> <referenceRange> <observationRange> <text>70-99</text> </ observationRange> </referenceRange> </observation> </ component> <component> <observation moodCode="EVN" classCode="OBS"> <templateId root="2.16.840.1.405232...4.2" /> <id nullFlavor="NA" /> <code codeSystem="local" code="BUN" displayName= "BLOOD UREA NITROGEN" /> <statusCode code="completed" /> < effectiveTime value="967785932869" /> <value unit="mg/dL" xsi:type="PQ " value="10" /> <referenceRange> <observationRange> <text>7-20</text> </observationRange> </referenceRange > </observation> </component> <component> <observation moodCode="EVN" classCode="OBS"> <templateId root= "216.840.1.157379...4.2" /> <id nullFlavor="NA" /> < code codeSystem="local" code="CREAT" displayName="CREATININE" /> < statusCode code="completed" /> <effectiveTime value="" /> <value unit="mg/dL" xsi:type="PQ" value="0.8" /> < referenceRange> <observationRange> <text>0.6-1.0</text> </observationRange> </referenceRange> </observation > </component> <component> <observation moodCode="EVN" classCode="OBS"> <templateId root="16.840.1.331533.03.15.22.4.2" /> <id nullFlavor="NA" /> <code codeSystem="local" code="HGBT" displayName="HEMOGLOBIN" /> <statusCode code="completed" /> < effectiveTime value="" /> <value unit="gm/dL" xsi:type="PQ " value="11.9" /> <interpretationCode codeSystem="local" code="*" /> <referenceRange> <observationRange> <text>12.0- 16.0</text> </observationRange> </referenceRange> </ observation> </component> <component> <observation moodCode= "EVN" classCode="OBS"> <templateId root="07.12.840.1.044576.03.15.22.4.2 " /> <id nullFlavor="NA" /> <code codeSystem="local" code= "HCTT" displayName="HEMATOCRIT" /> <statusCode code="completed" /> <effectiveTime value="" /> <value unit="%" xsi: type="PQ" value="35.0" /> <interpretationCode codeSystem="local" code= "*" /> <referenceRange> <observationRange> < text>37.0-47.0</text> </observationRange> </referenceRange> </observation> </component> <component> <observation moodCode="EVN" classCode="OBS"> <templateId root= "16.840.1.369159.10..4.2" /> <id nullFlavor="NA" /> < code codeSystem="local" code="NA" displayName="SODIUM" /> <statusCode code="completed" /> <effectiveTime value="553241429432" /> < value unit="mmol/L" xsi:type="PQ" value="134" /> <interpretationCode codeSystem="local" code="*" /> <referenceRange> < observationRange> <text>135-148</text> </ observationRange> </referenceRange> </observation> </ component> <component> <observation moodCode="EVN" classCode="OBS"> <templateId root="07.12.840.1.031363.03.15.22.4.2" /> <id nullFlavor="NA" /> <code codeSystem="local" code="CL" displayName= "CHLORIDE" /> <statusCode code="completed" /> <effectiveTime value="711046603544" /> <value unit="mmol/L" xsi:type="PQ" value="99" / > <referenceRange> <observationRange> <text>98- 110</text> </observationRange> </referenceRange> </ observation> </component> <component> <observation moodCode= "EVN" classCode="OBS"> <templateId root="07.12.840.1.531992.03.15.22.4.2 " /> <id nullFlavor="NA" /> <code codeSystem="local" code="CO2 " displayName="CARBON DIOXIDE" /> <statusCode code="completed" /> <effectiveTime value="473896108762" /> <value unit="mmol/L" xsi: type="PQ" value="24" /> <referenceRange> <observationRange> <text>21-32</text> </observationRange> </ referenceRange> </observation> </component> <component> <observation moodCode="EVN" classCode="OBS"> <templateId root= "840.1.893405.03.15.22.4.2" /> <id nullFlavor="NA" /> < code codeSystem="local" code="CAION" displayName="CALCIUM IONIZED" /> < statusCode code="completed" /> <effectiveTime value="918382406197" /> <value unit="mg/dL" xsi:type="PQ" value="4.3" /> < interpretationCode codeSystem="local" code="*" /> <referenceRange> <observationRange> <text>4.5-5.3</text> </ observationRange> </referenceRange> </observation> </ component> </organizer> </entry> <entry> <organizer moodCode="EVN" classCode="BATTERY"> <templateId root="840.1.259429.03.15.22.4.1" /> <id nullFlavor="NA" /> <code codeSystem="local" code="UA" displayName= "URINALYSIS, ROUTINE" /> <statusCode code="completed" /> <component> <observation moodCode="EVN" classCode="OBS"> <templateId root= "840.1.832694.22.4.2" /> <id nullFlavor="NA" /> < code codeSystem="local" code="LEUESU" displayName="UA LEUKOCYTE ESTERASE DIPSTICK" /> <statusCode code="completed" /> <effectiveTime value="" /> <value unit="" xsi:type="PQ" value="1+" /> <interpretationCode codeSystem="local" code="*" /> < referenceRange> <observationRange> <text>NEGATIVE</text > </observationRange> </referenceRange> </observation > </component> <component> <observation moodCode="EVN" classCode="OBS"> <templateId root="216.840.1.224683.10..22.4.2" /> <id nullFlavor="NA" /> <code codeSystem="local" code="NITRIU" displayName="UA NITRITE DIPSTICK" /> <statusCode code="completed" /> <effectiveTime value="" /> <value unit="" xsi:type= "PQ" value="NEGATIVE" /> <referenceRange> <observationRange > <text>NEGATIVE</text> </observationRange> </ referenceRange> </observation> </component> <component> <observation moodCode="EVN" classCode="OBS"> <templateId root= "216.840.1.582571.10..22.4.2" /> <id nullFlavor="NA" /> < code codeSystem="local" code="PROTEIU" displayName="UA PROTEIN DIPSTICK" /> <statusCode code="completed" /> <effectiveTime value= "" /> <value unit="" xsi:type="PQ" value="2+" /> < interpretationCode codeSystem="local" code="*" /> <referenceRange> <observationRange> <text>NEGATIVE</text> </ observationRange> </referenceRange> </observation> </ component> <component> <observation moodCode="EVN" classCode="OBS"> <templateId root="16.840.1.832842.10...4.2" /> <id nullFlavor="NA" /> <code codeSystem="local" code="DGLUU" displayName= "UA GLUCOSE DIPSTICK" /> <statusCode code="completed" /> < effectiveTime value="" /> <value unit="" xsi:type="PQ" value="NEGATIVE" /> <referenceRange> <observationRange> <text>NEGATIVE</text> </observationRange> </ referenceRange> </observation> </component> <component> <observation moodCode="EVN" classCode="OBS"> <templateId root= "16.840.1.062582.10...4.2" /> <id nullFlavor="NA" /> < code codeSystem="local" code="KETONU" displayName="UA KETONE DIPSTICK" /> <statusCode code="completed" /> <effectiveTime value=" " /> <value unit="" xsi:type="PQ" value="2+" /> < interpretationCode codeSystem="local" code="*" /> <referenceRange> <observationRange> <text>NEGATIVE</text> </ observationRange> </referenceRange> </observation> </ component> <component> <observation moodCode="EVN" classCode="OBS"> <templateId root="16.840.1.582358.10...4.2" /> <id nullFlavor="NA" /> <code codeSystem="local" code="UROBILU" displayName= "UA UROBILINOGEN DIPSTICK" /> <statusCode code="completed" /> <effectiveTime value="" /> <value unit="" xsi:type="PQ" value="3+" /> <interpretationCode codeSystem="local" code="*" /> <referenceRange> <observationRange> <text>NORMAL</ text> </observationRange> </referenceRange> </ observation> </component> <component> <observation moodCode= "EVN" classCode="OBS"> <templateId root="16.840.1.544102.10..22.4.2 " /> <id nullFlavor="NA" /> <code codeSystem="local" code= "BILU" displayName="UA BILIRUBIN DIPSTICK" /> <statusCode code= "completed" /> <effectiveTime value="" /> <value unit="" xsi:type="PQ" value="1+" /> <interpretationCode codeSystem= "local" code="*" /> <referenceRange> <observationRange> <text>NEGATIVE</text> </observationRange> </ referenceRange> </observation> </component> <component> <observation moodCode="EVN" classCode="OBS"> <templateId root= "07.12.840.1.227107.03.15.22.4.2" /> <id nullFlavor="NA" /> < code codeSystem="local" code="LON" displayName="UA BLOOD DIPSTICK" /> < statusCode code="completed" /> <effectiveTime value="" /> <value unit="" xsi:type="PQ" value="2+" /> < interpretationCode codeSystem="local" code="*" /> <referenceRange> <observationRange> <text>NEGATIVE</text> </ observationRange> </referenceRange> </observation> </ component> <component> <observation moodCode="EVN" classCode="OBS"> <templateId root="16.840.1.546947..22.4.2" /> <id nullFlavor="NA" /> <code codeSystem="local" code="SPGRU" displayName= "UA SPECIFIC GRAVITY" /> <statusCode code="completed" /> < effectiveTime value="" /> <value unit="" xsi:type="PQ" value="1.015" /> <referenceRange> <observationRange> <text>1.015-1.025</text> </observationRange> </ referenceRange> </observation> </component> <component> <observation moodCode="EVN" classCode="OBS"> <templateId root= "07.12.840.1.026517.03.15.22.4.2" /> <id nullFlavor="NA" /> < code codeSystem="local" code="WILLOW" displayName="UR PH" /> <statusCode code="completed" /> <effectiveTime value="" /> < value unit="" xsi:type="PQ" value="6.5" /> <referenceRange> <observationRange> <text>5.0-7.0</text> </ observationRange> </referenceRange> </observation> </ component> </organizer> </entry> <entry> <organizer moodCode="EVN" classCode="BATTERY"> <templateId root="07.12.840.1.023566.03.15.22.4.1" /> <id nullFlavor="NA" /> <code codeSystem="local" code="UAMICRO" displayName="UA MICROSCOPIC" /> <statusCode code="completed" /> < component> <observation moodCode="EVN" classCode="OBS"> < templateId root="07.12.840.1.742683.03.15..4.2" /> <id nullFlavor="NA " /> <code codeSystem="local" code="BACU" displayName="UA BACTERIA" /> <statusCode code="completed" /> <effectiveTime value= "" /> <value unit="" xsi:type="PQ" value="1+" /> < interpretationCode codeSystem="local" code="*" /> <referenceRange> <observationRange> <text>NEGATIVE</text> </ observationRange> </referenceRange> </observation> </ component> <component> <observation moodCode="EVN" classCode="OBS"> <templateId root="07.12.840.1.726930.10..22.4.2" /> <id nullFlavor="NA" /> <code codeSystem="local" code="EPIU" displayName=" UA EPITHELIAL CELLS" /> <statusCode code="completed" /> < effectiveTime value="" /> <value unit="epi/hpf" xsi:type= "PQ" value="2+" /> <interpretationCode codeSystem="local" code="*" /> <referenceRange> <observationRange> <text>0 - 1 +</text> </observationRange> </referenceRange> </ observation> </component> <component> <observation moodCode= "EVN" classCode="OBS"> <templateId root="07.12.840.1.866454.10..22.4.2 " /> <id nullFlavor="NA" /> <code codeSystem="local" code= "MUCUSU" displayName="UA MUCUS" /> <statusCode code="completed" /> <effectiveTime value="" /> <value unit="" xsi:type= "PQ" value="1+" /> <referenceRange> <observationRange> <text>NEG TO 1+</text> </observationRange> </ referenceRange> </observation> </component> <component> <observation moodCode="EVN" classCode="OBS"> <templateId root= "840.1.396489.10..22.4.2" /> <id nullFlavor="NA" /> < code codeSystem="local" code="RBCU" displayName="UA RBC" /> < statusCode code="completed" /> <effectiveTime value="" /> <value unit="rbc/hpf" xsi:type="PQ" value="3-5" /> < interpretationCode codeSystem="local" code="*" /> <referenceRange> <observationRange> <text>0 - 3</text> </ observationRange> </referenceRange> </observation> </ component> <component> <observation moodCode="EVN" classCode="OBS"> <templateId root="16.840.1.790356.10...4.2" /> <id nullFlavor="NA" /> <code codeSystem="local" code="UAVOL" displayName= "UA VOLUME FOR EXAM" /> <statusCode code="completed" /> < effectiveTime value="" /> <value unit="mL" xsi:type="PQ" value="12.0" /> <referenceRange> <observationRange> <text>(12mL STD)</text> </observationRange> </ referenceRange> </observation> </component> <component> <observation moodCode="EVN" classCode="OBS"> <templateId root= "07.12.840.1.543967.10..22.4.2" /> <id nullFlavor="NA" /> < code codeSystem="local" code="WBCU" displayName="UA WBC" /> < statusCode code="completed" /> <effectiveTime value="" /> <value unit="wbc/hpf" xsi:type="PQ" value="50-100" /> < interpretationCode codeSystem="local" code="*" /> <referenceRange> <observationRange> <text>0 - 5</text> </ observationRange> </referenceRange> </observation> </ component> </organizer> </entry> <entry> <organizer moodCode="EVN" classCode="BATTERY"> <templateId root="07.12.840.1.183041.10..22.4.1" /> <id nullFlavor="NA" /> <code codeSystem="local" code="LACTG" displayName="LACTIC ACID" /> <statusCode code="completed" /> < component> <observation moodCode="EVN" classCode="OBS"> < templateId root="07.12.840.1.914622...4.2" /> <id nullFlavor="NA " /> <code codeSystem="local" code="LACT" displayName="LACTIC ACID" /> <statusCode code="completed" /> <effectiveTime value= "[id number]" /> <value unit="mmol/L" xsi:type="PQ" value="1.0" /> <referenceRange> <observationRange> <text>0.5-2.0 </text> </observationRange> </referenceRange> </ observation> </component> </organizer> </entry> <entry> <organizer moodCode="EVN" classCode="BATTERY"> <templateId root= "07.12.840.1.280517.10..4.1" /> <id nullFlavor="NA" /> <code codeSystem="local" code="BC" displayName="BLOOD CULTURE" /> <statusCode code="completed" /> <component> <observation moodCode="EVN" classCode="OBS"> <templateId root="07.12.840.1.889169.10..22.4.2" /> <id nullFlavor="NA" /> <code codeSystem="local" code="MB" displayName="Microbiology" /> <statusCode code="completed" /> <effectiveTime value="" /> <value xsi:type="ST" value="<pre ><b>BLOOD CULTURE</b> See BelowIs this a Possible Sepsis/Sepsis patient? YesBLOOD CULTURE(F) Red Date/Time: 07/01/2017 14:50 Matty Date/Time: 07/07/2017 01:09SOURCE: BLOODSPEC DESC: [id number] [facility] [place] [address]</pre>" /> <referenceRange> <observationRange> <text /> </observationRange> </referenceRange> </observation> </component> </organizer> </entry> <entry> < organizer moodCode="EVN" classCode="BATTERY"> <templateId root= "2.16.840.1.336581.10.20.22.4.1" /> <id nullFlavor="NA" /> <code codeSystem="local" code="BC" displayName="BLOOD CULTURE" /> <statusCode code="completed" /> <component> <observation moodCode="EVN" classCode="OBS"> <templateId root="2.16.840.1.840939.10.20.22.4.2" /> <id nullFlavor="NA" /> <code codeSystem="local" code="MB" displayName="Microbiology" /> <statusCode code="completed" /> <effectiveTime value="[id number]" /> <value xsi:type="ST" value="<pre ><b>BLOOD CULTURE</b> See BelowIs this a Possible Sepsis/Sepsis patient? YesBLOOD CULTURE(F) Red Date/Time: 07/01/2017 14:58 Matty Date/Time: 07/07/2017 01:10SOURCE: BLOODSPEC DESC: [id number] [facility] [facility] [place] [address]</pre>" /> <referenceRange> <observationRange> <text /> </observationRange> </referenceRange> </observation> </component> </organizer> </entry> <entry> < organizer moodCode="EVN" classCode="BATTERY"> <templateId root= "216.840.1.499631.10..22.4.1" /> <id nullFlavor="NA" /> <code codeSystem="local" code="DRUGAB" displayName="UR DRUGS OF ABUSE SCREEN" /> <statusCode code="completed" /> <component> <observation moodCode= "EVN" classCode="OBS"> <templateId root="216.840.1.205583.10..22.4.2 " /> <id nullFlavor="NA" /> <code codeSystem="local" code= "AMPHU" displayName="UR AMPHETAMINES SCREEN" /> <statusCode code= "completed" /> <effectiveTime value="" /> <value unit="" xsi:type="PQ" value="POS (>1000 ng/mL)" /> < interpretationCode codeSystem="local" code="*" /> <referenceRange> <observationRange> <text>NEGATIVE</text> </ observationRange> </referenceRange> </observation> </ component> <component> <observation moodCode="EVN" classCode="OBS"> <templateId root="216.840.1.454663.10..22.4.2" /> <id nullFlavor="NA" /> <code codeSystem="local" code="BARBU" displayName= "UR BARBITURATE SCREEN" /> <statusCode code="completed" /> < effectiveTime value="[id number]" /> <value unit="" xsi:type="PQ" value="NEG (< 200 ng/mL)" /> <referenceRange> < observationRange> <text>NEGATIVE</text> </ observationRange> </referenceRange> </observation> </ component> <component> <observation moodCode="EVN" classCode="OBS"> <templateId root="216.840.1.392843.10..22.4.2" /> <id nullFlavor="NA" /> <code codeSystem="local" code="DAUCOMMENT" displayName="DRUGS OF ABUSE SCREEN COMMENT" /> <statusCode code= "completed" /> <effectiveTime value="" /> <value unit="" xsi:type="PQ" value="" /> <referenceRange> < observationRange> <text /> </observationRange> </referenceRange> </observation> </component> <component> <observation moodCode="EVN" classCode="OBS"> <templateId root= "216.840.1.393610.10..4.2" /> <id nullFlavor="NA" /> < code codeSystem="local" code="OPIU" displayName="UR OPIATES SCREEN" /> <statusCode code="completed" /> <effectiveTime value="" /> <value unit="" xsi:type="PQ" value="POS (> 300 ng/mL)" /> <interpretationCode codeSystem="local" code="*" /> <referenceRange> <observationRange> <text>NEGATIVE</text> </ observationRange> </referenceRange> </observation> </ component> <component> <observation moodCode="EVN" classCode="OBS"> <templateId root="216.840.1.438838.10...4.2" /> <id nullFlavor="NA" /> <code codeSystem="local" code="PCPU" displayName=" UR PHENCYCLIDINE (PCP) SCREEN" /> <statusCode code="completed" /> <effectiveTime value="" /> <value unit="" xsi:type="PQ " value="NEG (< 25 ng/mL)" /> <referenceRange> < observationRange> <text>NEGATIVE</text> </ observationRange> </referenceRange> </observation> </ component> <component> <observation moodCode="EVN" classCode="OBS"> <templateId root="216.840.1.700608.10.20.22.4.2" /> <id nullFlavor="NA" /> <code codeSystem="local" code="THCU" displayName=" UR CANNABINOIDS (THC) SCREEN" /> <statusCode code="completed" /> <effectiveTime value="" /> <value unit="" xsi:type="PQ " value="NEG (< 50 ng/mL)" /> <referenceRange> < observationRange> <text>NEGATIVE</text> </ observationRange> </referenceRange> </observation> </ component> <component> <observation moodCode="EVN" classCode="OBS"> <templateId root="16.840.1.113234.10..22.4.2" /> <id nullFlavor="NA" /> <code codeSystem="local" code="COCAU" displayName= "UR COCAINE METABOLITE SCREEN" /> <statusCode code="completed" /> <effectiveTime value="" /> <value unit="" xsi:type="PQ " value="NEG (< 300 ng/mL)" /> <referenceRange> < observationRange> <text>NEGATIVE</text> </ observationRange> </referenceRange> </observation> </ component> <component> <observation moodCode="EVN" classCode="OBS"> <templateId root="07.12.840.1.469806.10..4.2" /> <id nullFlavor="NA" /> <code codeSystem="local" code="METHU" displayName= "UR METHADONE SCREEN" /> <statusCode code="completed" /> < effectiveTime value="[id number]" /> <value unit="" xsi:type="PQ" value="NEG (< 300 ng/mL)" /> <referenceRange> < observationRange> <text>NEGATIVE</text> </ observationRange> </referenceRange> </observation> </ component> <component> <observation moodCode="EVN" classCode="OBS"> <templateId root="07.12.840.1.719194.03.15.22.4.2" /> <id nullFlavor="NA" /> <code codeSystem="local" code="BENZU" displayName= "UR BENZODIAZEPINE SCREEN" /> <statusCode code="completed" /> <effectiveTime value="012063640168" /> <value unit="" xsi:type="PQ" value="POS (> 200 ng/mL)" /> <interpretationCode codeSystem="local " code="*" /> <referenceRange> <observationRange> <text>NEGATIVE</text> </observationRange> </ referenceRange> </observation> </component> </organizer> </entry > <entry> <organizer moodCode="EVN" classCode="BATTERY"> <templateId root="07.12.840.1.675530.22.4.1" /> <id nullFlavor="NA" /> <code codeSystem="local" code="UC" displayName="URINE CULTURE" /> <statusCode code="completed" /> <component> <observation moodCode="EVN" classCode="OBS"> <templateId root="07.12.840.1.053720.22.4.2" /> <id nullFlavor="NA" /> <code codeSystem="local" code="MB" displayName="Microbiology" /> <statusCode code="completed" /> <effectiveTime value="063982371695" /> <value xsi:type="ST" value="<pre ><b>URINE CULTURE</b> See BelowHold order until specimen collected? NoIndication for Culture: Fever > 38.0 C or 100.4 F Costovertebral Angle PainDoes patient have a Rivera? NoURINE CULTURE(F) Red Date/ Time: 07/01/2017 18:10 Matty Date/Time: 07/03/2017 10:32SOURCE: URINESPEC DESC: CLEAN CATCHTREATMENT OF ASYMPTOMATIC BACTERIURIA IS NOT USUALLYCLINICALLY INDICATED.MIXED POS AND NEG?MIXED GRAM POSITIVE AND NEGATIVE [facility]IA[facility] [place] [address]</pre>" /> <referenceRange> <observationRange> <text /> </observationRange> </referenceRange> </observation> </component> </organizer> </entry> <entry> < organizer moodCode="EVN" classCode="BATTERY"> <templateId root= "216.840.1.671769.03.15.22.4.1" /> <id nullFlavor="NA" /> <code codeSystem="local" code="CAION" displayName="CALCIUM IONIZED" /> < statusCode code="completed" /> <component> <observation moodCode= "EVN" classCode="OBS"> <templateId root="2.16.840.1.622682.10.22.4.2 " /> <id nullFlavor="NA" /> <code codeSystem="local" code= "CAION" displayName="CALCIUM IONIZED" /> <statusCode code="completed" / > <effectiveTime value="494882616197" /> <value unit="mg/dL" xsi:type="PQ" value="4.3" /> <interpretationCode codeSystem="local" code="*" /> <referenceRange> <observationRange> <text>4.5-5.3</text> </observationRange> </referenceRange > </observation> </component> </organizer> </entry> <entry> <organizer moodCode="EVN" classCode="BATTERY"> <templateId root= "840.1.069600.22.4.1" /> <id nullFlavor="NA" /> <code codeSystem="local" code="CBCD" displayName="CBC W/DIFF" /> <statusCode code ="completed" /> <component> <observation moodCode="EVN" classCode= "OBS"> <templateId root="07.12.840.1.635182.03.15.22.4.2" /> < id nullFlavor="NA" /> <code codeSystem="local" code="BA#" displayName= "BASOPHIL #" /> <statusCode code="completed" /> < effectiveTime value="" /> <value unit="k/cumm" xsi:type="PQ " value="0.0" /> <referenceRange> <observationRange> <text>0.0-0.2</text> </observationRange> </ referenceRange> </observation> </component> <component> <observation moodCode="EVN" classCode="OBS"> <templateId root= "07.12.840.1.028217.1022.4.2" /> <id nullFlavor="NA" /> < code codeSystem="local" code="BA%" displayName="BASOPHIL %" /> <statusCode code="completed" /> <effectiveTime value="" /> <value unit="%" xsi:type="PQ" value="0.3" /> < referenceRange> <observationRange> <text>0-1</text> </observationRange> </referenceRange> </observation> </component> <component> <observation moodCode="EVN" classCode= "OBS"> <templateId root="216.840.1.465294.10.22.4.2" /> < id nullFlavor="NA" /> <code codeSystem="local" code="EO#" displayName= "EOSINOPHIL #" /> <statusCode code="completed" /> < effectiveTime value="270448112507" /> <value unit="k/cumm" xsi:type="PQ " value="0.0" /> <interpretationCode codeSystem="local" code="*" /> <referenceRange> <observationRange> <text>0.1-0.5 </text> </observationRange> </referenceRange> </ observation> </component> <component> <observation moodCode= "EVN" classCode="OBS"> <templateId root="216.840.1.879571.1022.4.2 " /> <id nullFlavor="NA" /> <code codeSystem="local" code="EO& #37;" displayName="EOSINOPHIL %" /> <statusCode code="completed" / > <effectiveTime value="" /> <value unit="%" xsi:type="PQ" value="0.3" /> <interpretationCode codeSystem="local" code="*" /> <referenceRange> <observationRange> <text>2-4</text> </observationRange> </referenceRange> </observation> </component> <component> <observation moodCode="EVN" classCode="OBS"> <templateId root= "216.840.1.784253.102022.4.2" /> <id nullFlavor="NA" /> < code codeSystem="local" code="GR#" displayName="GRANULOCYTE #" /> < statusCode code="completed" /> <effectiveTime value="" /> <value unit="k/cumm" xsi:type="PQ" value="5.6" /> < referenceRange> <observationRange> <text>2.0-9.0</text> </observationRange> </referenceRange> </observation > </component> <component> <observation moodCode="EVN" classCode="OBS"> <templateId root="2.16.840.1.599505....4.2" /> <id nullFlavor="NA" /> <code codeSystem="local" code="GR% " displayName="GRANULOCYTE %" /> <statusCode code="completed" /> <effectiveTime value="" /> <value unit="%" xsi: type="PQ" value="73.3" /> <referenceRange> <observationRange > <text>50-75</text> </observationRange> </ referenceRange> </observation> </component> <component> <observation moodCode="EVN" classCode="OBS"> <templateId root= "2.16.840.1.483970....4.2" /> <id nullFlavor="NA" /> < code codeSystem="local" code="LY#" displayName="LYMPHOCYTE #" /> < statusCode code="completed" /> <effectiveTime value="" /> <value unit="k/cumm" xsi:type="PQ" value="0.9" /> < interpretationCode codeSystem="local" code="*" /> <referenceRange> <observationRange> <text>1.0-4.0</text> </ observationRange> </referenceRange> </observation> </ component> <component> <observation moodCode="EVN" classCode="OBS"> <templateId root="07.12.840.1.926216.10.22.4.2" /> <id nullFlavor="NA" /> <code codeSystem="local" code="LY%" displayName= "LYMPHOCYTE %" /> <statusCode code="completed" /> < effectiveTime value="" /> <value unit="%" xsi:type="PQ " value="11.3" /> <interpretationCode codeSystem="local" code="*" /> <referenceRange> <observationRange> <text>20-30< /text> </observationRange> </referenceRange> </ observation> </component> <component> <observation moodCode= "EVN" classCode="OBS"> <templateId root="840.1.785129.1022.4.2 " /> <id nullFlavor="NA" /> <code codeSystem="local" code="MCH " displayName="MEAN CELL HGB" /> <statusCode code="completed" /> <effectiveTime value="" /> <value unit="pg" xsi:type= "PQ" value="23.4" /> <interpretationCode codeSystem="local" code="*" / > <referenceRange> <observationRange> <text> 27.0-33.0</text> </observationRange> </referenceRange> </observation> </component> <component> <observation moodCode="EVN" classCode="OBS"> <templateId root= "07.12.840.1.079440.102022.4.2" /> <id nullFlavor="NA" /> < code codeSystem="local" code="MCHC" displayName="MEAN CELL HGB CONCENTRATION" / > <statusCode code="completed" /> <effectiveTime value= "" /> <value unit="g/dL" xsi:type="PQ" value="29.0" /> <interpretationCode codeSystem="local" code="*" /> < referenceRange> <observationRange> <text>32.0-37.0</text > </observationRange> </referenceRange> </observation > </component> <component> <observation moodCode="EVN" classCode="OBS"> <templateId root="16.840.1.351342.10..22.4.2" /> <id nullFlavor="NA" /> <code codeSystem="local" code="MCV" displayName="MEAN CELL VOLUME" /> <statusCode code="completed" /> <effectiveTime value="" /> <value unit="fl" xsi:type= "PQ" value="80.7" /> <referenceRange> <observationRange> <text>80.0-100.0</text> </observationRange> </ referenceRange> </observation> </component> <component> <observation moodCode="EVN" classCode="OBS"> <templateId root= "16.840.1.583339.10.20.22.4.2" /> <id nullFlavor="NA" /> < code codeSystem="local" code="MO#" displayName="MONOCYTE #" /> < statusCode code="completed" /> <effectiveTime value="" /> <value unit="k/cumm" xsi:type="PQ" value="1.1" /> < interpretationCode codeSystem="local" code="*" /> <referenceRange> <observationRange> <text>0.1-1.0</text> </ observationRange> </referenceRange> </observation> </ component> <component> <observation moodCode="EVN" classCode="OBS"> <templateId root="216.840.1.237905.10..22.4.2" /> <id nullFlavor="NA" /> <code codeSystem="local" code="MO%" displayName= "MONOCYTE %" /> <statusCode code="completed" /> < effectiveTime value="" /> <value unit="%" xsi:type="PQ " value="14.5" /> <interpretationCode codeSystem="local" code="*" /> <referenceRange> <observationRange> <text>4-6</ text> </observationRange> </referenceRange> </ observation> </component> <component> <observation moodCode= "EVN" classCode="OBS"> <templateId root="07.12.840.1.787400.22.4.2 " /> <id nullFlavor="NA" /> <code codeSystem="local" code= "MPVT" displayName="MEAN PLATELET VOLUME" /> <statusCode code= "completed" /> <effectiveTime value="" /> <value unit="fl" xsi:type="PQ" value="10.4" /> <referenceRange> < observationRange> <text>8.5-10.9</text> </ observationRange> </referenceRange> </observation> </ component> <component> <observation moodCode="EVN" classCode="OBS"> <templateId root="2.16.840.1.291791.10.22.4.2" /> <id nullFlavor="NA" /> <code codeSystem="local" code="RBC" displayName=" RED BLOOD CELL" /> <statusCode code="completed" /> < effectiveTime value="" /> <value unit="m/cumm" xsi:type="PQ " value="3.21" /> <interpretationCode codeSystem="local" code="*" /> <referenceRange> <observationRange> <text>4.00- 6.00</text> </observationRange> </referenceRange> </ observation> </component> <component> <observation moodCode= "EVN" classCode="OBS"> <templateId root="216.840.1.047552.03.15.22.4.2 " /> <id nullFlavor="NA" /> <code codeSystem="local" code="RDW " displayName="RED CELL DISTRIBUTION WIDTH" /> <statusCode code= "completed" /> <effectiveTime value="378792389973" /> <value unit="%" xsi:type="PQ" value="16.9" /> <interpretationCode codeSystem="local" code="*" /> <referenceRange> < observationRange> <text>11.0-15.6</text> </ observationRange> </referenceRange> </observation> </ component> <component> <observation moodCode="EVN" classCode="OBS"> <templateId root="16.840.1.144795.03.15.22.4.2" /> <id nullFlavor="NA" /> <code codeSystem="local" code="WBC" displayName= "WHITE BLOOD CELL" /> <statusCode code="completed" /> < effectiveTime value="063098983186" /> <value unit="k/cumm" xsi:type="PQ " value="7.6" /> <referenceRange> <observationRange> <text>5.0-10.0</text> </observationRange> </ referenceRange> </observation> </component> <component> <observation moodCode="EVN" classCode="OBS"> <templateId root= "216.840.1.559294.10.2022.4.2" /> <id nullFlavor="NA" /> < code codeSystem="local" code="HGBT" displayName="HEMOGLOBIN" /> < statusCode code="completed" /> <effectiveTime value="" /> <value unit="gm/dL" xsi:type="PQ" value="7.5" /> < interpretationCode codeSystem="local" code="*" /> <referenceRange> <observationRange> <text>12.0-16.0</text> </ observationRange> </referenceRange> </observation> </ component> <component> <observation moodCode="EVN" classCode="OBS"> <templateId root="07.12.840.1.072206.03.15.22.4.2" /> <id nullFlavor="NA" /> <code codeSystem="local" code="HCTT" displayName= "HEMATOCRIT" /> <statusCode code="completed" /> < effectiveTime value="" /> <value unit="%" xsi:type="PQ " value="25.9" /> <interpretationCode codeSystem="local" code="*" /> <referenceRange> <observationRange> <text>37.0- 47.0</text> </observationRange> </referenceRange> </ observation> </component> <component> <observation moodCode= "EVN" classCode="OBS"> <templateId root="07.12.840.1.719576.10..4.2 " /> <id nullFlavor="NA" /> <code codeSystem="local" code= "NRBC%" displayName="NRBC %" /> <statusCode code="completed" / > <effectiveTime value="" /> <value unit="/100WBC " xsi:type="PQ" value="0.0" /> <referenceRange> < observationRange> <text>0.0-0.0</text> </ observationRange> </referenceRange> </observation> </ component> <component> <observation moodCode="EVN" classCode="OBS"> <templateId root="216.840.1.582414.10..22.4.2" /> <id nullFlavor="NA" /> <code codeSystem="local" code="PLTT" displayName= "PLATELET COUNT" /> <statusCode code="completed" /> < effectiveTime value="927768136501" /> <value unit="k/cumm" xsi:type="PQ " value="131" /> <interpretationCode codeSystem="local" code="*" /> <referenceRange> <observationRange> <text>150-400 </text> </observationRange> </referenceRange> </ observation> </component> <component> <observation moodCode= "EVN" classCode="OBS"> <templateId root="16.840.1.467451.03.15.22.4.2 " /> <id nullFlavor="NA" /> <code codeSystem="local" code="IG& #37;" displayName="IMMATURE GRANULOCYTE %" /> <statusCode code= "completed" /> <effectiveTime value="" /> <value unit="%" xsi:type="PQ" value="0.3" /> <referenceRange> < observationRange> <text>0.0-0.6</text> </ observationRange> </referenceRange> </observation> </ component> <component> <observation moodCode="EVN" classCode="OBS"> <templateId root="216.840.1.334664.10..22.4.2" /> <id nullFlavor="NA" /> <code codeSystem="local" code="IG#" displayName= "IMMATURE GRANULOCYTE #" /> <statusCode code="completed" /> < effectiveTime value="808209961170" /> <value unit="k/cumm" xsi:type="PQ " value="0.02" /> <referenceRange> <observationRange> <text>0.00-0.09</text> </observationRange> </ referenceRange> </observation> </component> <component> <observation moodCode="EVN" classCode="OBS"> <templateId root= "840.1.312525.03.15.22.4.2" /> <id nullFlavor="NA" /> < code codeSystem="local" code="IPFT" displayName="IMMATURE PLATELET FRACTION" /> <statusCode code="completed" /> <effectiveTime value= "932102431068" /> <value unit="%" xsi:type="PQ" value="2.8" /> <referenceRange> <observationRange> <text>1.1-6.1< /text> </observationRange> </referenceRange> </ observation> </component> </organizer> </entry> <entry> <organizer moodCode="EVN" classCode="BATTERY"> <templateId root= "840.1.626963.03.15.22.4.1" /> <id nullFlavor="NA" /> <code codeSystem="local" code="RENAL" displayName="RENAL FUNCTION PANEL" /> < statusCode code="completed" /> <component> <observation moodCode= "EVN" classCode="OBS"> <templateId root="840.1.354183.22.4.2 " /> <id nullFlavor="NA" /> <code codeSystem="local" code="K" displayName="POTASSIUM" /> <statusCode code="completed" /> < effectiveTime value="399267693934" /> <value unit="mmol/L" xsi:type="PQ " value="3.2" /> <interpretationCode codeSystem="local" code="*" /> <referenceRange> <observationRange> <text>3.5-5.3 </text> </observationRange> </referenceRange> </ observation> </component> <component> <observation moodCode= "EVN" classCode="OBS"> <templateId root="16.840.1.879915.10..4.2 " /> <id nullFlavor="NA" /> <code codeSystem="local" code= "eGFR" displayName="EST GFR (MDRD)" /> <statusCode code="completed" /> <effectiveTime value="" /> <value unit="mL/min" xsi:type="PQ" value="> 60" /> <referenceRange> < observationRange> <text>> 59</text> </ observationRange> </referenceRange> </observation> </ component> <component> <observation moodCode="EVN" classCode="OBS"> <templateId root="16.840.1.959157....4.2" /> <id nullFlavor="NA" /> <code codeSystem="local" code="GAP" displayName= "ANION GAP" /> <statusCode code="completed" /> <effectiveTime value="521557147803" /> <value unit="mmol/L" xsi:type="PQ" value="7" / > <referenceRange> <observationRange> <text>5- 15</text> </observationRange> </referenceRange> </ observation> </component> <component> <observation moodCode= "EVN" classCode="OBS"> <templateId root="16.840.1.309754.03.15.22.4.2 " /> <id nullFlavor="NA" /> <code codeSystem="local" code= "eCrCl" displayName="EST CrCl (CG)" /> <statusCode code="completed" /> <effectiveTime value="" /> <value unit="mL/min" xsi:type="PQ" value="> 60" /> <referenceRange> < observationRange> <text>> 59</text> </ observationRange> </referenceRange> </observation> </ component> <component> <observation moodCode="EVN" classCode="OBS"> <templateId root="07.12.840.1.248260.03.15.22.4.2" /> <id nullFlavor="NA" /> <code codeSystem="local" code="GLU" displayName= "GLUCOSE" /> <statusCode code="completed" /> <effectiveTime value="" /> <value unit="mg/dL" xsi:type="PQ" value="131" / > <interpretationCode codeSystem="local" code="*" /> < referenceRange> <observationRange> <text>70-99</text> </observationRange> </referenceRange> </observation> </component> <component> <observation moodCode="EVN" classCode= "OBS"> <templateId root="07.12.840.1.074973.03.15.22.4.2" /> < id nullFlavor="NA" /> <code codeSystem="local" code="CA" displayName= "CALCIUM" /> <statusCode code="completed" /> <effectiveTime value="" /> <value unit="mg/dL" xsi:type="PQ" value="7.0" / > <interpretationCode codeSystem="local" code="*" /> < referenceRange> <observationRange> <text>8.5-10.1</text > </observationRange> </referenceRange> </observation > </component> <component> <observation moodCode="EVN" classCode="OBS"> <templateId root="07.12.840.1.663031.10.20.22.4.2" /> <id nullFlavor="NA" /> <code codeSystem="local" code="BUN" displayName="BLOOD UREA NITROGEN" /> <statusCode code="completed" /> <effectiveTime value="" /> <value unit="mg/dL" xsi: type="PQ" value="6" /> <interpretationCode codeSystem="local" code="*" /> <referenceRange> <observationRange> <text>7- 20</text> </observationRange> </referenceRange> </ observation> </component> <component> <observation moodCode= "EVN" classCode="OBS"> <templateId root="840.1.732325...4.2 " /> <id nullFlavor="NA" /> <code codeSystem="local" code= "CREAT" displayName="CREATININE" /> <statusCode code="completed" /> <effectiveTime value="[id number]" /> <value unit="mg/dL" xsi: type="PQ" value="0.7" /> <referenceRange> <observationRange > <text>0.6-1.0</text> </observationRange> </ referenceRange> </observation> </component> <component> <observation moodCode="EVN" classCode="OBS"> <templateId root= "07.12.840.1.577624.10.20.22.4.2" /> <id nullFlavor="NA" /> < code codeSystem="local" code="NA" displayName="SODIUM" /> <statusCode code="completed" /> <effectiveTime value="" /> < value unit="mmol/L" xsi:type="PQ" value="139" /> <referenceRange> <observationRange> <text>135-148</text> </ observationRange> </referenceRange> </observation> </ component> <component> <observation moodCode="EVN" classCode="OBS"> <templateId root="216.840.1.688030.03.15.22.4.2" /> <id nullFlavor="NA" /> <code codeSystem="local" code="CL" displayName= "CHLORIDE" /> <statusCode code="completed" /> <effectiveTime value="" /> <value unit="mmol/L" xsi:type="PQ" value="110" /> <referenceRange> <observationRange> <text>98 -110</text> </observationRange> </referenceRange> </ observation> </component> <component> <observation moodCode= "EVN" classCode="OBS"> <templateId root="07.12.840.1.544417.03.15.22.4.2 " /> <id nullFlavor="NA" /> <code codeSystem="local" code="CO2 " displayName="CARBON DIOXIDE" /> <statusCode code="completed" /> <effectiveTime value="" /> <value unit="mmol/L" xsi: type="PQ" value="22" /> <referenceRange> <observationRange> <text>21-32</text> </observationRange> </ referenceRange> </observation> </component> <component> <observation moodCode="EVN" classCode="OBS"> <templateId root= "07.12.840.1.922439.22.4.2" /> <id nullFlavor="NA" /> < code codeSystem="local" code="ALB" displayName="ALBUMIN" /> < statusCode code="completed" /> <effectiveTime value="" /> <value unit="gm/dL" xsi:type="PQ" value="2.2" /> < interpretationCode codeSystem="local" code="*" /> <referenceRange> <observationRange> <text>3.4-5.0</text> </ observationRange> </referenceRange> </observation> </ component> <component> <observation moodCode="EVN" classCode="OBS"> <templateId root="840.1.091847.03.15.22.4.2" /> <id nullFlavor="NA" /> <code codeSystem="local" code="PHOS" displayName= "PHOSPHORUS" /> <statusCode code="completed" /> < effectiveTime value="" /> <value unit="mg/dL" xsi:type="PQ " value="1.0" /> <interpretationCode codeSystem="local" code="*" /> <referenceRange> <observationRange> <text>2.5-4.9 </text> </observationRange> </referenceRange> </ observation> </component> </organizer> </entry> <entry> <organizer moodCode="EVN" classCode="BATTERY"> <templateId root= "840.1.479270.22.4.1" /> <id nullFlavor="NA" /> <code codeSystem="local" code="MAG" displayName="MAGNESIUM" /> <statusCode code= "completed" /> <component> <observation moodCode="EVN" classCode= "OBS"> <templateId root="840.1.285991.2022.4.2" /> < id nullFlavor="NA" /> <code codeSystem="local" code="MAG" displayName= "MAGNESIUM" /> <statusCode code="completed" /> <effectiveTime value="645938742917" /> <value unit="mg/dL" xsi:type="PQ" value="1.6" / > <interpretationCode codeSystem="local" code="*" /> < referenceRange> <observationRange> <text>1.8-2.4</text> </observationRange> </referenceRange> </observation > </component> </organizer> </entry> <entry> <organizer moodCode= "EVN" classCode="BATTERY"> <templateId root="16.840.1.059614.10..22.4.1 " /> <id nullFlavor="NA" /> <code codeSystem="local" code="LEANNE" displayName="FERRITIN" /> <statusCode code="completed" /> <component> <observation moodCode="EVN" classCode="OBS"> <templateId root= "07.12.840.1.477848.10..22.4.2" /> <id nullFlavor="NA" /> < code codeSystem="local" code="LEANNE" displayName="FERRITIN" /> < statusCode code="completed" /> <effectiveTime value="476573147310" /> <value unit="ng/mL" xsi:type="PQ" value="48" /> < referenceRange> <observationRange> <text>8-252</text> </observationRange> </referenceRange> </observation> </component> </organizer> </entry> <entry> <organizer moodCode="EVN " classCode="BATTERY"> <templateId root="07.12.840.1.153742.10.20.22.4.1" / > <id nullFlavor="NA" /> <code codeSystem="local" code="FETIBC" displayName="IRON W/ BINDING CAPACITY" /> <statusCode code="completed" /> <component> <observation moodCode="EVN" classCode="OBS"> < templateId root="07.12.840.1.099750.10..4.2" /> <id nullFlavor="NA " /> <code codeSystem="local" code="FESAT" displayName="IRON SATURATION " /> <statusCode code="completed" /> <effectiveTime value= "" /> <value unit="%SAT" xsi:type="PQ" value="3" /> <interpretationCode codeSystem="local" code="*" /> < referenceRange> <observationRange> <text>11-46</text> </observationRange> </referenceRange> </observation> </component> <component> <observation moodCode="EVN" classCode= "OBS"> <templateId root="840.1.743045.03.15.22.4.2" /> < id nullFlavor="NA" /> <code codeSystem="local" code="TIBC" displayName= "IRON BINDING CAPACITY, TOTAL" /> <statusCode code="completed" /> <effectiveTime value="866433935817" /> <value unit="mcg/dL" xsi: type="PQ" value="240" /> <interpretationCode codeSystem="local" code="* " /> <referenceRange> <observationRange> <text> 250-450</text> </observationRange> </referenceRange> </observation> </component> <component> <observation moodCode= "EVN" classCode="OBS"> <templateId root="07.12.840.1.426979.10..4.2 " /> <id nullFlavor="NA" /> <code codeSystem="local" code= "IRON" displayName="IRON" /> <statusCode code="completed" /> < effectiveTime value="687909902122" /> <value unit="mcg/dL" xsi:type="PQ " value="8" /> <interpretationCode codeSystem="local" code="*" /> <referenceRange> <observationRange> <text>35-150</ text> </observationRange> </referenceRange> </ observation> </component> </organizer> </entry> <entry> <organizer moodCode="EVN" classCode="BATTERY"> <templateId root= "16.840.1.217646.10..22.4.1" /> <id nullFlavor="NA" /> <code codeSystem="local" code="LACTG" displayName="LACTIC ACID" /> <statusCode code="completed" /> <component> <observation moodCode="EVN" classCode="OBS"> <templateId root="07.12.840.1.851208.10..22.4.2" /> <id nullFlavor="NA" /> <code codeSystem="local" code="LACT" displayName="LACTIC ACID" /> <statusCode code="completed" /> < effectiveTime value="116866675103" /> <value unit="mmol/L" xsi:type="PQ " value="0.7" /> <referenceRange> <observationRange> <text>0.5-2.0</text> </observationRange> </ referenceRange> </observation> </component> </organizer> </entry > <entry> <organizer moodCode="EVN" classCode="BATTERY"> <templateId root="07.12.840.1.856717.10..22.4.1" /> <id nullFlavor="NA" /> <code codeSystem="local" code="CBC" displayName="CBC" /> <statusCode code= "completed" /> <component> <observation moodCode="EVN" classCode= "OBS"> <templateId root="216.840.1.504336.10..4.2" /> < id nullFlavor="NA" /> <code codeSystem="local" code="MCH" displayName= "MEAN CELL HGB" /> <statusCode code="completed" /> < effectiveTime value="" /> <value unit="pg" xsi:type="PQ" value="23.4" /> <interpretationCode codeSystem="local" code="*" /> <referenceRange> <observationRange> <text>27.0- 33.0</text> </observationRange> </referenceRange> </ observation> </component> <component> <observation moodCode= "EVN" classCode="OBS"> <templateId root="07.12.840.1.948133.03.15.224.2 " /> <id nullFlavor="NA" /> <code codeSystem="local" code= "MCHC" displayName="MEAN CELL HGB CONCENTRATION" /> <statusCode code= "completed" /> <effectiveTime value="" /> <value unit="g/dL" xsi:type="PQ" value="28.7" /> <interpretationCode codeSystem="local" code="*" /> <referenceRange> < observationRange> <text>32.0-37.0</text> </ observationRange> </referenceRange> </observation> </ component> <component> <observation moodCode="EVN" classCode="OBS"> <templateId root="07.12.840.1.129100.10.4.2" /> <id nullFlavor="NA" /> <code codeSystem="local" code="MCV" displayName= "MEAN CELL VOLUME" /> <statusCode code="completed" /> < effectiveTime value="" /> <value unit="fl" xsi:type="PQ" value="81.4" /> <referenceRange> <observationRange> <text>80.0-100.0</text> </observationRange> </ referenceRange> </observation> </component> <component> <observation moodCode="EVN" classCode="OBS"> <templateId root= "216.840.1.562753.22.4.2" /> <id nullFlavor="NA" /> < code codeSystem="local" code="MPVT" displayName="MEAN PLATELET VOLUME" /> <statusCode code="completed" /> <effectiveTime value=" " /> <value unit="fl" xsi:type="PQ" value="10.1" /> < referenceRange> <observationRange> <text>8.5-10.9</text > </observationRange> </referenceRange> </observation > </component> <component> <observation moodCode="EVN" classCode="OBS"> <templateId root="216.840.1.698660.03.15.22.4.2" /> <id nullFlavor="NA" /> <code codeSystem="local" code="RBC" displayName="RED BLOOD CELL" /> <statusCode code="completed" /> <effectiveTime value="" /> <value unit="m/cumm" xsi:type ="PQ" value="3.34" /> <interpretationCode codeSystem="local" code="*" / > <referenceRange> <observationRange> <text> 4.00-6.00</text> </observationRange> </referenceRange> </observation> </component> <component> <observation moodCode="EVN" classCode="OBS"> <templateId root= "216.840.1.398742.22.4.2" /> <id nullFlavor="NA" /> < code codeSystem="local" code="RDW" displayName="RED CELL DISTRIBUTION WIDTH" /> <statusCode code="completed" /> <effectiveTime value= "" /> <value unit="%" xsi:type="PQ" value="17.0" /> <interpretationCode codeSystem="local" code="*" /> < referenceRange> <observationRange> <text>11.0-15.6</text > </observationRange> </referenceRange> </observation > </component> <component> <observation moodCode="EVN" classCode="OBS"> <templateId root="07.12.840.1.576487.22.4.2" /> <id nullFlavor="NA" /> <code codeSystem="local" code="WBC" displayName="WHITE BLOOD CELL" /> <statusCode code="completed" /> <effectiveTime value="" /> <value unit="k/cumm" xsi: type="PQ" value="7.3" /> <referenceRange> <observationRange > <text>5.0-10.0</text> </observationRange> </ referenceRange> </observation> </component> <component> <observation moodCode="EVN" classCode="OBS"> <templateId root= "07.12.840.1.362835.22.4.2" /> <id nullFlavor="NA" /> < code codeSystem="local" code="HGBT" displayName="HEMOGLOBIN" /> < statusCode code="completed" /> <effectiveTime value="" /> <value unit="gm/dL" xsi:type="PQ" value="7.8" /> < interpretationCode codeSystem="local" code="*" /> <referenceRange> <observationRange> <text>12.0-16.0</text> </ observationRange> </referenceRange> </observation> </ component> <component> <observation moodCode="EVN" classCode="OBS"> <templateId root="216.840.1.670529.10.20.22.4.2" /> <id nullFlavor="NA" /> <code codeSystem="local" code="HCTT" displayName= "HEMATOCRIT" /> <statusCode code="completed" /> < effectiveTime value="840120594248" /> <value unit="%" xsi:type="PQ " value="27.2" /> <interpretationCode codeSystem="local" code="*" /> <referenceRange> <observationRange> <text>37.0- 47.0</text> </observationRange> </referenceRange> </ observation> </component> <component> <observation moodCode= "EVN" classCode="OBS"> <templateId root="16.840.1.237509.10...4.2 " /> <id nullFlavor="NA" /> <code codeSystem="local" code= "NRBC%" displayName="NRBC %" /> <statusCode code="completed" / > <effectiveTime value="989984415579" /> <value unit="/100WBC " xsi:type="PQ" value="0.0" /> <referenceRange> < observationRange> <text>0.0-0.0</text> </ observationRange> </referenceRange> </observation> </ component> <component> <observation moodCode="EVN" classCode="OBS"> <templateId root="216.840.1.672919.10.20.22.4.2" /> <id nullFlavor="NA" /> <code codeSystem="local" code="PLTT" displayName= "PLATELET COUNT" /> <statusCode code="completed" /> < effectiveTime value="897598078607" /> <value unit="k/cumm" xsi:type="PQ " value="147" /> <interpretationCode codeSystem="local" code="*" /> <referenceRange> <observationRange> <text>150-400 </text> </observationRange> </referenceRange> </ observation> </component> <component> <observation moodCode= "EVN" classCode="OBS"> <templateId root="16.840.1.598563.03.15.22.4.2 " /> <id nullFlavor="NA" /> <code codeSystem="local" code= "IPFT" displayName="IMMATURE PLATELET FRACTION" /> <statusCode code= "completed" /> <effectiveTime value="" /> <value unit="%" xsi:type="PQ" value="1.9" /> <referenceRange> < observationRange> <text>1.1-6.1</text> </ observationRange> </referenceRange> </observation> </ component> </organizer> </entry> <entry> <organizer moodCode="EVN" classCode="BATTERY"> <templateId root="07.12.840.1.988097.22.4.1" /> <id nullFlavor="NA" /> <code codeSystem="local" code="RENAL" displayName="RENAL FUNCTION PANEL" /> <statusCode code="completed" /> <component> <observation moodCode="EVN" classCode="OBS"> < templateId root="07.12.840.1.286711.10.2022.4.2" /> <id nullFlavor="NA " /> <code codeSystem="local" code="K" displayName="POTASSIUM" /> <statusCode code="completed" /> <effectiveTime value="665563703177 " /> <value unit="mmol/L" xsi:type="PQ" value="4.6" /> < referenceRange> <observationRange> <text>3.5-5.3</text> </observationRange> </referenceRange> </observation > </component> <component> <observation moodCode="EVN" classCode="OBS"> <templateId root="216.840.1.111656.10...4.2" /> <id nullFlavor="NA" /> <code codeSystem="local" code="eGFR" displayName="EST GFR (MDRD)" /> <statusCode code="completed" /> <effectiveTime value="222845448600" /> <value unit="mL/min" xsi:type ="PQ" value="> 60" /> <referenceRange> <observationRange > <text>> 59</text> </observationRange> </ referenceRange> </observation> </component> <component> <observation moodCode="EVN" classCode="OBS"> <templateId root= "16.840.1.389325.10...4.2" /> <id nullFlavor="NA" /> < code codeSystem="local" code="GAP" displayName="ANION GAP" /> < statusCode code="completed" /> <effectiveTime value="742936688418" /> <value unit="mmol/L" xsi:type="PQ" value="6" /> < referenceRange> <observationRange> <text>5-15</text> </observationRange> </referenceRange> </observation> </component> <component> <observation moodCode="EVN" classCode= "OBS"> <templateId root="16.840.1.462237.03.15.22.4.2" /> < id nullFlavor="NA" /> <code codeSystem="local" code="eCrCl" displayName ="EST CrCl (CG)" /> <statusCode code="completed" /> < effectiveTime value="" /> <value unit="mL/min" xsi:type="PQ " value="> 60" /> <referenceRange> <observationRange> <text>> 59</text> </observationRange> </ referenceRange> </observation> </component> <component> <observation moodCode="EVN" classCode="OBS"> <templateId root= "2.16.840.1.899901.03.15.22.4.2" /> <id nullFlavor="NA" /> < code codeSystem="local" code="GLU" displayName="GLUCOSE" /> < statusCode code="completed" /> <effectiveTime value="" /> <value unit="mg/dL" xsi:type="PQ" value="85" /> < referenceRange> <observationRange> <text>70-99</text> </observationRange> </referenceRange> </observation> </component> <component> <observation moodCode="EVN" classCode= "OBS"> <templateId root="2.16.840.1.461648.03.15.22.4.2" /> < id nullFlavor="NA" /> <code codeSystem="local" code="CA" displayName= "CALCIUM" /> <statusCode code="completed" /> <effectiveTime value="" /> <value unit="mg/dL" xsi:type="PQ" value="7.6" / > <interpretationCode codeSystem="local" code="*" /> < referenceRange> <observationRange> <text>8.5-10.1</text > </observationRange> </referenceRange> </observation > </component> <component> <observation moodCode="EVN" classCode="OBS"> <templateId root="2.16.840.1.643671.10..22.4.2" /> <id nullFlavor="NA" /> <code codeSystem="local" code="BUN" displayName="BLOOD UREA NITROGEN" /> <statusCode code="completed" /> <effectiveTime value="" /> <value unit="mg/dL" xsi: type="PQ" value="4" /> <interpretationCode codeSystem="local" code="*" /> <referenceRange> <observationRange> <text>7- 20</text> </observationRange> </referenceRange> </ observation> </component> <component> <observation moodCode= "EVN" classCode="OBS"> <templateId root="216.840.1.522734.03.15.224.2 " /> <id nullFlavor="NA" /> <code codeSystem="local" code= "CREAT" displayName="CREATININE" /> <statusCode code="completed" /> <effectiveTime value="" /> <value unit="mg/dL" xsi: type="PQ" value="0.6" /> <referenceRange> <observationRange > <text>0.6-1.0</text> </observationRange> </ referenceRange> </observation> </component> <component> <observation moodCode="EVN" classCode="OBS"> <templateId root= "2.16.840.1.661251.10...4.2" /> <id nullFlavor="NA" /> < code codeSystem="local" code="NA" displayName="SODIUM" /> <statusCode code="completed" /> <effectiveTime value="882749452541" /> < value unit="mmol/L" xsi:type="PQ" value="141" /> <referenceRange> <observationRange> <text>135-148</text> </ observationRange> </referenceRange> </observation> </ component> <component> <observation moodCode="EVN" classCode="OBS"> <templateId root="216.840.1.456992.10...4.2" /> <id nullFlavor="NA" /> <code codeSystem="local" code="CL" displayName= "CHLORIDE" /> <statusCode code="completed" /> <effectiveTime value="424271401501" /> <value unit="mmol/L" xsi:type="PQ" value="112" /> <interpretationCode codeSystem="local" code="*" /> < referenceRange> <observationRange> <text>98-110</text> </observationRange> </referenceRange> </observation> </component> <component> <observation moodCode="EVN" classCode ="OBS"> <templateId root="07.12.840.1.119406.10..4.2" /> < id nullFlavor="NA" /> <code codeSystem="local" code="CO2" displayName= "CARBON DIOXIDE" /> <statusCode code="completed" /> < effectiveTime value="063061364593" /> <value unit="mmol/L" xsi:type="PQ " value="23" /> <referenceRange> <observationRange> <text>21-32</text> </observationRange> </ referenceRange> </observation> </component> <component> <observation moodCode="EVN" classCode="OBS"> <templateId root= "216.840.1.115979.10...4.2" /> <id nullFlavor="NA" /> < code codeSystem="local" code="ALB" displayName="ALBUMIN" /> < statusCode code="completed" /> <effectiveTime value="" /> <value unit="gm/dL" xsi:type="PQ" value="2.3" /> < interpretationCode codeSystem="local" code="*" /> <referenceRange> <observationRange> <text>3.4-5.0</text> </ observationRange> </referenceRange> </observation> </ component> <component> <observation moodCode="EVN" classCode="OBS"> <templateId root="840.1.175690.03.15.22.4.2" /> <id nullFlavor="NA" /> <code codeSystem="local" code="PHOS" displayName= "PHOSPHORUS" /> <statusCode code="completed" /> < effectiveTime value="" /> <value unit="mg/dL" xsi:type="PQ " value="3.8" /> <referenceRange> <observationRange> <text>2.5-4.9</text> </observationRange> </ referenceRange> </observation> </component> </organizer> </entry > <entry> <organizer moodCode="EVN" classCode="BATTERY"> <templateId root="840.1.829500.03.15.22.4.1" /> <id nullFlavor="NA" /> <code codeSystem="local" code="CBCD" displayName="CBC W/DIFF" /> <statusCode code ="completed" /> <component> <observation moodCode="EVN" classCode= "OBS"> <templateId root="840.1.983079.03.15.22.4.2" /> < id nullFlavor="NA" /> <code codeSystem="local" code="BA#" displayName= "BASOPHIL #" /> <statusCode code="completed" /> < effectiveTime value="283052149646" /> <value unit="k/cumm" xsi:type="PQ " value="0.1" /> <referenceRange> <observationRange> <text>0.0-0.2</text> </observationRange> </ referenceRange> </observation> </component> <component> <observation moodCode="EVN" classCode="OBS"> <templateId root= "216.840.1.456549.10...4.2" /> <id nullFlavor="NA" /> < code codeSystem="local" code="BA%" displayName="BASOPHIL %" /> <statusCode code="completed" /> <effectiveTime value="774423915532" /> <value unit="%" xsi:type="PQ" value="0.9" /> < referenceRange> <observationRange> <text>0-1</text> </observationRange> </referenceRange> </observation> </component> <component> <observation moodCode="EVN" classCode= "OBS"> <templateId root="216.840.1.278456.10...4.2" /> < id nullFlavor="NA" /> <code codeSystem="local" code="EO#" displayName= "EOSINOPHIL #" /> <statusCode code="completed" /> < effectiveTime value="618365613262" /> <value unit="k/cumm" xsi:type="PQ " value="0.3" /> <referenceRange> <observationRange> <text>0.1-0.5</text> </observationRange> </ referenceRange> </observation> </component> <component> <observation moodCode="EVN" classCode="OBS"> <templateId root= "07.12.840.1.258045.102022.4.2" /> <id nullFlavor="NA" /> < code codeSystem="local" code="EO%" displayName="EOSINOPHIL %" /> <statusCode code="completed" /> <effectiveTime value="696115178689" /> <value unit="%" xsi:type="PQ" value="5.2" /> < interpretationCode codeSystem="local" code="*" /> <referenceRange> <observationRange> <text>2-4</text> </ observationRange> </referenceRange> </observation> </ component> <component> <observation moodCode="EVN" classCode="OBS"> <templateId root="840.1.302169.1022.4.2" /> <id nullFlavor="NA" /> <code codeSystem="local" code="GR#" displayName= "GRANULOCYTE #" /> <statusCode code="completed" /> < effectiveTime value="346609374970" /> <value unit="k/cumm" xsi:type="PQ " value="3.3" /> <referenceRange> <observationRange> <text>2.0-9.0</text> </observationRange> </ referenceRange> </observation> </component> <component> <observation moodCode="EVN" classCode="OBS"> <templateId root= "07.12.840.1.236729.10.2022.4.2" /> <id nullFlavor="NA" /> < code codeSystem="local" code="GR%" displayName="GRANULOCYTE %" /> <statusCode code="completed" /> <effectiveTime value="397532854595 " /> <value unit="%" xsi:type="PQ" value="56.4" /> < referenceRange> <observationRange> <text>50-75</text> </observationRange> </referenceRange> </observation> </component> <component> <observation moodCode="EVN" classCode= "OBS"> <templateId root="07.12.840.1.805826.10..4.2" /> < id nullFlavor="NA" /> <code codeSystem="local" code="LY#" displayName= "LYMPHOCYTE #" /> <statusCode code="completed" /> < effectiveTime value="637422224970" /> <value unit="k/cumm" xsi:type="PQ " value="1.6" /> <referenceRange> <observationRange> <text>1.0-4.0</text> </observationRange> </ referenceRange> </observation> </component> <component> <observation moodCode="EVN" classCode="OBS"> <templateId root= "07.12.840.1.740318.104.2" /> <id nullFlavor="NA" /> < code codeSystem="local" code="LY%" displayName="LYMPHOCYTE %" /> <statusCode code="completed" /> <effectiveTime value="692550726513" /> <value unit="%" xsi:type="PQ" value="27.6" /> < referenceRange> <observationRange> <text>20-30</text> </observationRange> </referenceRange> </observation> </component> <component> <observation moodCode="EVN" classCode= "OBS"> <templateId root="07.12.840.1.378849.1020.4.2" /> < id nullFlavor="NA" /> <code codeSystem="local" code="MCH" displayName= "MEAN CELL HGB" /> <statusCode code="completed" /> < effectiveTime value="625098309865" /> <value unit="pg" xsi:type="PQ" value="27.7" /> <referenceRange> <observationRange> <text>27.0-33.0</text> </observationRange> </ referenceRange> </observation> </component> <component> <observation moodCode="EVN" classCode="OBS"> <templateId root= "2.840.1.869247.102022.4.2" /> <id nullFlavor="NA" /> < code codeSystem="local" code="MCHC" displayName="MEAN CELL HGB CONCENTRATION" / > <statusCode code="completed" /> <effectiveTime value= "928587711579" /> <value unit="g/dL" xsi:type="PQ" value="31.8" /> <interpretationCode codeSystem="local" code="*" /> < referenceRange> <observationRange> <text>32.0-37.0</text > </observationRange> </referenceRange> </observation > </component> <component> <observation moodCode="EVN" classCode="OBS"> <templateId root="16.840.1.652695.102022.4.2" /> <id nullFlavor="NA" /> <code codeSystem="local" code="MCV" displayName="MEAN CELL VOLUME" /> <statusCode code="completed" /> <effectiveTime value="584191241666" /> <value unit="fl" xsi:type= "PQ" value="87.1" /> <referenceRange> <observationRange> <text>80.0-100.0</text> </observationRange> </ referenceRange> </observation> </component> <component> <observation moodCode="EVN" classCode="OBS"> <templateId root= "07.12.840.1.857681.1022.4.2" /> <id nullFlavor="NA" /> < code codeSystem="local" code="MO#" displayName="MONOCYTE #" /> < statusCode code="completed" /> <effectiveTime value="073304081060" /> <value unit="k/cumm" xsi:type="PQ" value="0.6" /> < referenceRange> <observationRange> <text>0.1-1.0</text> </observationRange> </referenceRange> </observation > </component> <component> <observation moodCode="EVN" classCode="OBS"> <templateId root="840.1.582224.03.15.224.2" /> <id nullFlavor="NA" /> <code codeSystem="local" code="MO% " displayName="MONOCYTE %" /> <statusCode code="completed" /> <effectiveTime value="947956943355" /> <value unit="%" xsi: type="PQ" value="9.7" /> <interpretationCode codeSystem="local" code="* " /> <referenceRange> <observationRange> <text> 4-6</text> </observationRange> </referenceRange> </ observation> </component> <component> <observation moodCode= "EVN" classCode="OBS"> <templateId root="07.12.840.1.277403.1022.4.2 " /> <id nullFlavor="NA" /> <code codeSystem="local" code= "MPVT" displayName="MEAN PLATELET VOLUME" /> <statusCode code= "completed" /> <effectiveTime value="505124484505" /> <value unit="fl" xsi:type="PQ" value="9.0" /> <referenceRange> < observationRange> <text>8.5-10.9</text> </ observationRange> </referenceRange> </observation> </ component> <component> <observation moodCode="EVN" classCode="OBS"> <templateId root="07.12.840.1.459608.10.20.22.4.2" /> <id nullFlavor="NA" /> <code codeSystem="local" code="RBC" displayName=" RED BLOOD CELL" /> <statusCode code="completed" /> < effectiveTime value="562238045390" /> <value unit="m/cumm" xsi:type="PQ " value="4.11" /> <referenceRange> <observationRange> <text>4.00-6.00</text> </observationRange> </ referenceRange> </observation> </component> <component> <observation moodCode="EVN" classCode="OBS"> <templateId root= "07.12.840.1.674481.10..22.4.2" /> <id nullFlavor="NA" /> < code codeSystem="local" code="RDW" displayName="RED CELL DISTRIBUTION WIDTH" /> <statusCode code="completed" /> <effectiveTime value= "258869836877" /> <value unit="%" xsi:type="PQ" value="15.9" /> <interpretationCode codeSystem="local" code="*" /> < referenceRange> <observationRange> <text>11.0-15.6</text > </observationRange> </referenceRange> </observation > </component> <component> <observation moodCode="EVN" classCode="OBS"> <templateId root="07.12.840.1.888539.10.20.22.4.2" /> <id nullFlavor="NA" /> <code codeSystem="local" code="WBC" displayName="WHITE BLOOD CELL" /> <statusCode code="completed" /> <effectiveTime value="207636241538" /> <value unit="k/cumm" xsi: type="PQ" value="5.8" /> <referenceRange> <observationRange > <text>5.0-10.0</text> </observationRange> </ referenceRange> </observation> </component> <component> <observation moodCode="EVN" classCode="OBS"> <templateId root= "2.16.840.1.095969.10.20.22.4.2" /> <id nullFlavor="NA" /> < code codeSystem="local" code="HGBT" displayName="HEMOGLOBIN" /> < statusCode code="completed" /> <effectiveTime value="860571630379" /> <value unit="gm/dL" xsi:type="PQ" value="11.4" /> < interpretationCode codeSystem="local" code="*" /> <referenceRange> <observationRange> <text>12.0-16.0</text> </ observationRange> </referenceRange> </observation> </ component> <component> <observation moodCode="EVN" classCode="OBS"> <templateId root="2.16.840.1.154956.10.20.22.4.2" /> <id nullFlavor="NA" /> <code codeSystem="local" code="HCTT" displayName= "HEMATOCRIT" /> <statusCode code="completed" /> < effectiveTime value="131428526463" /> <value unit="%" xsi:type="PQ " value="35.8" /> <interpretationCode codeSystem="local" code="*" /> <referenceRange> <observationRange> <text>37.0- 47.0</text> </observationRange> </referenceRange> </ observation> </component> <component> <observation moodCode= "EVN" classCode="OBS"> <templateId root="2.16.840.1.249984.10..4.2 " /> <id nullFlavor="NA" /> <code codeSystem="local" code= "NRBC%" displayName="NRBC %" /> <statusCode code="completed" / > <effectiveTime value="173049408977" /> <value unit="/100WBC " xsi:type="PQ" value="0.0" /> <referenceRange> < observationRange> <text>0.0-0.0</text> </ observationRange> </referenceRange> </observation> </ component> <component> <observation moodCode="EVN" classCode="OBS"> <templateId root="216.840.1.260749.03.15.22.4.2" /> <id nullFlavor="NA" /> <code codeSystem="local" code="PLTT" displayName= "PLATELET COUNT" /> <statusCode code="completed" /> < effectiveTime value="897245137612" /> <value unit="k/cumm" xsi:type="PQ " value="265" /> <referenceRange> <observationRange> <text>150-400</text> </observationRange> </ referenceRange> </observation> </component> <component> <observation moodCode="EVN" classCode="OBS"> <templateId root= "216.840.1.432169.10..4.2" /> <id nullFlavor="NA" /> < code codeSystem="local" code="IG%" displayName="IMMATURE GRANULOCYTE %" /> <statusCode code="completed" /> <effectiveTime value= "698936407558" /> <value unit="%" xsi:type="PQ" value="0.2" /> <referenceRange> <observationRange> <text>0.0-0.6< /text> </observationRange> </referenceRange> </ observation> </component> <component> <observation moodCode= "EVN" classCode="OBS"> <templateId root="840.1.179269.10.22.4.2 " /> <id nullFlavor="NA" /> <code codeSystem="local" code="IG# " displayName="IMMATURE GRANULOCYTE #" /> <statusCode code="completed" /> <effectiveTime value="485729907451" /> <value unit="k/cumm " xsi:type="PQ" value="0.01" /> <referenceRange> < observationRange> <text>0.00-0.09</text> </ observationRange> </referenceRange> </observation> </ component> </organizer> </entry> <entry> <organizer moodCode="EVN" classCode="BATTERY"> <templateId root="840.1.121870.03.15.22.4.1" /> <id nullFlavor="NA" /> <code codeSystem="local" code="METABC" displayName="METABOLIC PANEL, COMPREHN" /> <statusCode code="completed" /> <component> <observation moodCode="EVN" classCode="OBS"> < templateId root="840.1.020334.1022.4.2" /> <id nullFlavor="NA " /> <code codeSystem="local" code="K" displayName="POTASSIUM" /> <statusCode code="completed" /> <effectiveTime value="368324181224 " /> <value unit="mmol/L" xsi:type="PQ" value="3.1" /> < interpretationCode codeSystem="local" code="*" /> <referenceRange> <observationRange> <text>3.5-5.3</text> </ observationRange> </referenceRange> </observation> </ component> <component> <observation moodCode="EVN" classCode="OBS"> <templateId root="07.12.840.1.821123.10...4.2" /> <id nullFlavor="NA" /> <code codeSystem="local" code="eGFR" displayName= "EST GFR (MDRD)" /> <statusCode code="completed" /> < effectiveTime value="274401462134" /> <value unit="mL/min" xsi:type="PQ " value="> 60" /> <referenceRange> <observationRange> <text>> 59</text> </observationRange> </ referenceRange> </observation> </component> <component> <observation moodCode="EVN" classCode="OBS"> <templateId root= "840.1.114718.10..4.2" /> <id nullFlavor="NA" /> < code codeSystem="local" code="GAP" displayName="ANION GAP" /> < statusCode code="completed" /> <effectiveTime value="988499508865" /> <value unit="mmol/L" xsi:type="PQ" value="9" /> < referenceRange> <observationRange> <text>5-15</text> </observationRange> </referenceRange> </observation> </component> <component> <observation moodCode="EVN" classCode= "OBS"> <templateId root="07.12.840.1.080184.10...4.2" /> < id nullFlavor="NA" /> <code codeSystem="local" code="eCrCl" displayName ="EST CrCl (CG)" /> <statusCode code="completed" /> < effectiveTime value="365887522569" /> <value unit="mL/min" xsi:type="PQ " value="> 60" /> <referenceRange> <observationRange> <text>> 59</text> </observationRange> </ referenceRange> </observation> </component> <component> <observation moodCode="EVN" classCode="OBS"> <templateId root= "16.840.1.783039.10..4.2" /> <id nullFlavor="NA" /> < code codeSystem="local" code="GLU" displayName="GLUCOSE" /> < statusCode code="completed" /> <effectiveTime value="842862772659" /> <value unit="mg/dL" xsi:type="PQ" value="120" /> < interpretationCode codeSystem="local" code="*" /> <referenceRange> <observationRange> <text>70-99</text> </ observationRange> </referenceRange> </observation> </ component> <component> <observation moodCode="EVN" classCode="OBS"> <templateId root="07.12.840.1.056280.10.4.2" /> <id nullFlavor="NA" /> <code codeSystem="local" code="CA" displayName= "CALCIUM" /> <statusCode code="completed" /> <effectiveTime value="063462093980" /> <value unit="mg/dL" xsi:type="PQ" value="8.7" / > <referenceRange> <observationRange> <text>8.5 -10.1</text> </observationRange> </referenceRange> </ observation> </component> <component> <observation moodCode= "EVN" classCode="OBS"> <templateId root="07.12.840.1.165446.03.15.22.4.2 " /> <id nullFlavor="NA" /> <code codeSystem="local" code="BUN " displayName="BLOOD UREA NITROGEN" /> <statusCode code="completed" /> <effectiveTime value="183891320068" /> <value unit="mg/dL" xsi:type="PQ" value="9" /> <referenceRange> < observationRange> <text>7-20</text> </observationRange> </referenceRange> </observation> </component> < component> <observation moodCode="EVN" classCode="OBS"> < templateId root="2.16.840.1.679921.03.15.22.4.2" /> <id nullFlavor="NA " /> <code codeSystem="local" code="CREAT" displayName="CREATININE" /> <statusCode code="completed" /> <effectiveTime value= "238756351352" /> <value unit="mg/dL" xsi:type="PQ" value="0.7" /> <referenceRange> <observationRange> <text>0.6-1.0< /text> </observationRange> </referenceRange> </ observation> </component> <component> <observation moodCode= "EVN" classCode="OBS"> <templateId root="2.16.840.1.127110...22.4.2 " /> <id nullFlavor="NA" /> <code codeSystem="local" code="NA " displayName="SODIUM" /> <statusCode code="completed" /> < effectiveTime value="943213619493" /> <value unit="mmol/L" xsi:type="PQ " value="141" /> <referenceRange> <observationRange> <text>135-148</text> </observationRange> </ referenceRange> </observation> </component> <component> <observation moodCode="EVN" classCode="OBS"> <templateId root= "16.840.1.176261.10..22.4.2" /> <id nullFlavor="NA" /> < code codeSystem="local" code="CL" displayName="CHLORIDE" /> < statusCode code="completed" /> <effectiveTime value="123385217497" /> <value unit="mmol/L" xsi:type="PQ" value="105" /> < referenceRange> <observationRange> <text>98-110</text> </observationRange> </referenceRange> </observation> </component> <component> <observation moodCode="EVN" classCode ="OBS"> <templateId root="07.12.840.1.644436.10...4.2" /> < id nullFlavor="NA" /> <code codeSystem="local" code="AST" displayName= "AST/SGOT" /> <statusCode code="completed" /> <effectiveTime value="432114182242" /> <value unit="Units/L" xsi:type="PQ" value="44" /> <interpretationCode codeSystem="local" code="*" /> < referenceRange> <observationRange> <text>10-37</text> </observationRange> </referenceRange> </observation> </component> <component> <observation moodCode="EVN" classCode= "OBS"> <templateId root="07.12.840.1.805006.10..22.4.2" /> < id nullFlavor="NA" /> <code codeSystem="local" code="ALT" displayName= "ALT/SGPT" /> <statusCode code="completed" /> <effectiveTime value="509593333985" /> <value unit="Units/L" xsi:type="PQ" value="126 " /> <interpretationCode codeSystem="local" code="*" /> < referenceRange> <observationRange> <text>< 66</text> </observationRange> </referenceRange> </observation > </component> <component> <observation moodCode="EVN" classCode="OBS"> <templateId root="07.12.840.1.838212.10.20.22.4.2" /> <id nullFlavor="NA" /> <code codeSystem="local" code="CO2" displayName="CARBON DIOXIDE" /> <statusCode code="completed" /> <effectiveTime value="615902268258" /> <value unit="mmol/L" xsi:type ="PQ" value="27" /> <referenceRange> <observationRange> <text>21-32</text> </observationRange> </ referenceRange> </observation> </component> <component> <observation moodCode="EVN" classCode="OBS"> <templateId root= "840.1.698401.10.22.4.2" /> <id nullFlavor="NA" /> < code codeSystem="local" code="TP" displayName="TOTAL PROTEIN" /> < statusCode code="completed" /> <effectiveTime value="078091623893" /> <value unit="gm/dL" xsi:type="PQ" value="7.4" /> < referenceRange> <observationRange> <text>6.4-8.2</text> </observationRange> </referenceRange> </observation > </component> <component> <observation moodCode="EVN" classCode="OBS"> <templateId root="840.1.828265.10.20.22.4.2" /> <id nullFlavor="NA" /> <code codeSystem="local" code="ALB" displayName="ALBUMIN" /> <statusCode code="completed" /> < effectiveTime value="824198458206" /> <value unit="gm/dL" xsi:type="PQ " value="3.4" /> <referenceRange> <observationRange> <text>3.4-5.0</text> </observationRange> </ referenceRange> </observation> </component> <component> <observation moodCode="EVN" classCode="OBS"> <templateId root= "2.16.840.1.508735.10..22.4.2" /> <id nullFlavor="NA" /> < code codeSystem="local" code="BILTOT" displayName="BILI TOTAL" /> < statusCode code="completed" /> <effectiveTime value="000953207099" /> <value unit="mg/dL" xsi:type="PQ" value="0.2" /> < referenceRange> <observationRange> <text>0.0-1.0</text> </observationRange> </referenceRange> </observation > </component> <component> <observation moodCode="EVN" classCode="OBS"> <templateId root="2.16.840.1.274536.10..22.4.2" /> <id nullFlavor="NA" /> <code codeSystem="local" code="ALKP" displayName="ALKALINE PHOSPHATASE TOTAL" /> <statusCode code="completed " /> <effectiveTime value="504731943296" /> <value unit="IU/L " xsi:type="PQ" value="235" /> <interpretationCode codeSystem="local" code="*" /> <referenceRange> <observationRange> <text>45-117</text> </observationRange> </referenceRange> </observation> </component> </organizer> </entry> <entry> < organizer moodCode="EVN" classCode="BATTERY"> <templateId root= "16.840.1.034608.10..4.1" /> <id nullFlavor="NA" /> <code codeSystem="local" code="LIP" displayName="LIPASE" /> <statusCode code= "completed" /> <component> <observation moodCode="EVN" classCode= "OBS"> <templateId root="840.1.847121.03.15.22.4.2" /> < id nullFlavor="NA" /> <code codeSystem="local" code="LIP" displayName= "LIPASE" /> <statusCode code="completed" /> <effectiveTime value="175285960586" /> <value unit="Units/L" xsi:type="PQ" value="96" /> <referenceRange> <observationRange> <text>73 -393</text> </observationRange> </referenceRange> </ observation> </component> </organizer> </entry> <entry> <organizer moodCode="EVN" classCode="BATTERY"> <templateId root= "840.1.607642.03.15.22.4.1" /> <id nullFlavor="NA" /> <code codeSystem="local" code="PREG" displayName=" TEST, SERUM" /> < statusCode code="completed" /> <component> <observation moodCode= "EVN" classCode="OBS"> <templateId root="07.12.840.1.734421.10.4.2 " /> <id nullFlavor="NA" /> <code codeSystem="local" code= "PREG" displayName=" TEST, SERUM" /> <statusCode code= "completed" /> <effectiveTime value="071576681751" /> <value unit="" xsi:type="PQ" value="NEGATIVE" /> <referenceRange> < observationRange> <text>NEGATIVE</text> </ observationRange> </referenceRange> </observation> </ component> </organizer> </entry> <entry> <organizer moodCode="EVN" classCode="BATTERY"> <templateId root="216.840.1.961742.10..4.1" /> <id nullFlavor="NA" /> <code codeSystem="local" code="UA" displayName= "URINALYSIS, ROUTINE" /> <statusCode code="completed" /> <component> <observation moodCode="EVN" classCode="OBS"> <templateId root= "216.840.1.539186...4.2" /> <id nullFlavor="NA" /> < code codeSystem="local" code="LEUESU" displayName="UA LEUKOCYTE ESTERASE DIPSTICK" /> <statusCode code="completed" /> <effectiveTime value="" /> <value unit="" xsi:type="PQ" value="1+" /> <interpretationCode codeSystem="local" code="*" /> < referenceRange> <observationRange> <text>NEGATIVE</text > </observationRange> </referenceRange> </observation > </component> <component> <observation moodCode="EVN" classCode="OBS"> <templateId root="16.840.1.270224.03.15.22.4.2" /> <id nullFlavor="NA" /> <code codeSystem="local" code="NITRIU" displayName="UA NITRITE DIPSTICK" /> <statusCode code="completed" /> <effectiveTime value="" /> <value unit="" xsi:type= "PQ" value="NEGATIVE" /> <referenceRange> <observationRange > <text>NEGATIVE</text> </observationRange> </ referenceRange> </observation> </component> <component> <observation moodCode="EVN" classCode="OBS"> <templateId root= "16.840.1.414586.10..4.2" /> <id nullFlavor="NA" /> < code codeSystem="local" code="PROTEIU" displayName="UA PROTEIN DIPSTICK" /> <statusCode code="completed" /> <effectiveTime value= "" /> <value unit="" xsi:type="PQ" value="NEGATIVE" /> <referenceRange> <observationRange> <text>NEGATIVE </text> </observationRange> </referenceRange> </ observation> </component> <component> <observation moodCode= "EVN" classCode="OBS"> <templateId root="07.12.840.1.917577.03.15.22.4.2 " /> <id nullFlavor="NA" /> <code codeSystem="local" code= "DGLUU" displayName="UA GLUCOSE DIPSTICK" /> <statusCode code= "completed" /> <effectiveTime value="" /> <value unit="" xsi:type="PQ" value="NEGATIVE" /> <referenceRange> < observationRange> <text>NEGATIVE</text> </ observationRange> </referenceRange> </observation> </ component> <component> <observation moodCode="EVN" classCode="OBS"> <templateId root="07.12.840.1.394083.10.22.4.2" /> <id nullFlavor="NA" /> <code codeSystem="local" code="KETONU" displayName= "UA KETONE DIPSTICK" /> <statusCode code="completed" /> < effectiveTime value="" /> <value unit="" xsi:type="PQ" value="TRACE" /> <interpretationCode codeSystem="local" code="*" /> <referenceRange> <observationRange> <text> NEGATIVE</text> </observationRange> </referenceRange> </observation> </component> <component> <observation moodCode ="EVN" classCode="OBS"> <templateId root= "07.12.840.1.255857.10.2022.4.2" /> <id nullFlavor="NA" /> < code codeSystem="local" code="UROBILU" displayName="UA UROBILINOGEN DIPSTICK" / > <statusCode code="completed" /> <effectiveTime value= "271548496207" /> <value unit="" xsi:type="PQ" value="2+" /> < interpretationCode codeSystem="local" code="*" /> <referenceRange> <observationRange> <text>NORMAL</text> </ observationRange> </referenceRange> </observation> </ component> <component> <observation moodCode="EVN" classCode="OBS"> <templateId root="840.1.242518.03.15.224.2" /> <id nullFlavor="NA" /> <code codeSystem="local" code="BILU" displayName=" UA BILIRUBIN DIPSTICK" /> <statusCode code="completed" /> < effectiveTime value="644938760343" /> <value unit="" xsi:type="PQ" value="NEGATIVE" /> <referenceRange> <observationRange> <text>NEGATIVE</text> </observationRange> </ referenceRange> </observation> </component> <component> <observation moodCode="EVN" classCode="OBS"> <templateId root= "07.12.840.1.790764.10.2022.4.2" /> <id nullFlavor="NA" /> < code codeSystem="local" code="LON" displayName="UA BLOOD DIPSTICK" /> < statusCode code="completed" /> <effectiveTime value="" /> <value unit="" xsi:type="PQ" value="3+" /> < interpretationCode codeSystem="local" code="*" /> <referenceRange> <observationRange> <text>NEGATIVE</text> </ observationRange> </referenceRange> </observation> </ component> <component> <observation moodCode="EVN" classCode="OBS"> <templateId root="216.840.1.373014.10.20.22.4.2" /> <id nullFlavor="NA" /> <code codeSystem="local" code="SPGRU" displayName= "UA SPECIFIC GRAVITY" /> <statusCode code="completed" /> < effectiveTime value="464694784315" /> <value unit="" xsi:type="PQ" value="1.025" /> <referenceRange> <observationRange> <text>1.015-1.025</text> </observationRange> </ referenceRange> </observation> </component> <component> <observation moodCode="EVN" classCode="OBS"> <templateId root= "16.840.1.639647.10.20.22.4.2" /> <id nullFlavor="NA" /> < code codeSystem="local" code="WILLOW" displayName="UR PH" /> <statusCode code="completed" /> <effectiveTime value="" /> < value unit="" xsi:type="PQ" value="7.0" /> <referenceRange> <observationRange> <text>5.0-7.0</text> </ observationRange> </referenceRange> </observation> </ component> </organizer> </entry> <entry> <organizer moodCode="EVN" classCode="BATTERY"> <templateId root="07.12.840.1.807653.10.22.4.1" /> <id nullFlavor="NA" /> <code codeSystem="local" code="UAMICRO" displayName="UA MICROSCOPIC" /> <statusCode code="completed" /> < component> <observation moodCode="EVN" classCode="OBS"> < templateId root="840.1.973596.03.15.22.4.2" /> <id nullFlavor="NA " /> <code codeSystem="local" code="BACU" displayName="UA BACTERIA" /> <statusCode code="completed" /> <effectiveTime value= "833525758886" /> <value unit="" xsi:type="PQ" value="NEGATIVE" /> <referenceRange> <observationRange> <text>NEGATIVE </text> </observationRange> </referenceRange> </ observation> </component> <component> <observation moodCode= "EVN" classCode="OBS"> <templateId root="840.1.246138.03.15.22.4.2 " /> <id nullFlavor="NA" /> <code codeSystem="local" code= "EPIU" displayName="UA EPITHELIAL CELLS" /> <statusCode code="completed " /> <effectiveTime value="" /> <value unit="epi/ hpf" xsi:type="PQ" value="1+" /> <referenceRange> < observationRange> <text>0 - 1+</text> </observationRange > </referenceRange> </observation> </component> < component> <observation moodCode="EVN" classCode="OBS"> < templateId root="07.12.840.1.909796.22.4.2" /> <id nullFlavor="NA " /> <code codeSystem="local" code="HYALU" displayName="UA HYALINE CAST " /> <statusCode code="completed" /> <effectiveTime value= "500878621294" /> <value unit="cast/lpf" xsi:type="PQ" value="2-5" /> <interpretationCode codeSystem="local" code="*" /> < referenceRange> <observationRange> <text>0 - 1</text> </observationRange> </referenceRange> </observation> </component> <component> <observation moodCode="EVN" classCode= "OBS"> <templateId root="216.840.1.720983.10..22.4.2" /> < id nullFlavor="NA" /> <code codeSystem="local" code="RBCU" displayName= "UA RBC" /> <statusCode code="completed" /> <effectiveTime value="" /> <value unit="rbc/hpf" xsi:type="PQ" value="> 100" /> <interpretationCode codeSystem="local" code="*" /> < referenceRange> <observationRange> <text>0 - 3</text> </observationRange> </referenceRange> </observation> </component> <component> <observation moodCode="EVN" classCode= "OBS"> <templateId root="16.840.1.929616.10..22.4.2" /> < id nullFlavor="NA" /> <code codeSystem="local" code="WBCU" displayName= "UA WBC" /> <statusCode code="completed" /> <effectiveTime value="" /> <value unit="wbc/hpf" xsi:type="PQ" value="20- 50" /> <interpretationCode codeSystem="local" code="*" /> < referenceRange> <observationRange> <text>0 - 5</text> </observationRange> </referenceRange> </observation> </component> </organizer> </entry> <entry> <organizer moodCode="EVN " classCode="BATTERY"> <templateId root="2.16.840.1.524806.10..22.4.1" / > <id nullFlavor="NA" /> <code codeSystem="local" code="DRUGAB" displayName="UR DRUGS OF ABUSE SCREEN" /> <statusCode code="completed" /> <component> <observation moodCode="EVN" classCode="OBS"> < templateId root="2.16.840.1.130851.10..22.4.2" /> <id nullFlavor="NA " /> <code codeSystem="local" code="AMPHU" displayName="UR AMPHETAMINES SCREEN" /> <statusCode code="completed" /> < effectiveTime value="673973736399" /> <value unit="" xsi:type="PQ" value="POS (>1000 ng/mL)" /> <interpretationCode codeSystem="local " code="*" /> <referenceRange> <observationRange> <text>NEGATIVE</text> </observationRange> </ referenceRange> </observation> </component> <component> <observation moodCode="EVN" classCode="OBS"> <templateId root= "2.16.840.1.137318.10...4.2" /> <id nullFlavor="NA" /> < code codeSystem="local" code="BARBU" displayName="UR BARBITURATE SCREEN" /> <statusCode code="completed" /> <effectiveTime value= "001059806012" /> <value unit="" xsi:type="PQ" value="NEG (< 200 ng /mL)" /> <referenceRange> <observationRange> < text>NEGATIVE</text> </observationRange> </referenceRange> </observation> </component> <component> <observation moodCode="EVN" classCode="OBS"> <templateId root= "216.840.1.474468.10..22.4.2" /> <id nullFlavor="NA" /> < code codeSystem="local" code="DAUCOMMENT" displayName="DRUGS OF ABUSE SCREEN COMMENT" /> <statusCode code="completed" /> <effectiveTime value="914928372769" /> <value unit="" xsi:type="PQ" value="" /> <referenceRange> <observationRange> <text /> </observationRange> </referenceRange> </observation> </component> <component> <observation moodCode="EVN" classCode= "OBS"> <templateId root="216.840.1.734809.10..4.2" /> < id nullFlavor="NA" /> <code codeSystem="local" code="OPIU" displayName= "UR OPIATES SCREEN" /> <statusCode code="completed" /> < effectiveTime value="198812549192" /> <value unit="" xsi:type="PQ" value="POS (> 300 ng/mL)" /> <interpretationCode codeSystem="local " code="*" /> <referenceRange> <observationRange> <text>NEGATIVE</text> </observationRange> </ referenceRange> </observation> </component> <component> <observation moodCode="EVN" classCode="OBS"> <templateId root= "216.840.1.144592.10..4.2" /> <id nullFlavor="NA" /> < code codeSystem="local" code="PCPU" displayName="UR PHENCYCLIDINE (PCP) SCREEN" /> <statusCode code="completed" /> <effectiveTime value= "025020889594" /> <value unit="" xsi:type="PQ" value="NEG (< 25 ng /mL)" /> <referenceRange> <observationRange> < text>NEGATIVE</text> </observationRange> </referenceRange> </observation> </component> <component> <observation moodCode="EVN" classCode="OBS"> <templateId root= "2.16.840.1.655178.10..22.4.2" /> <id nullFlavor="NA" /> < code codeSystem="local" code="THCU" displayName="UR CANNABINOIDS (THC) SCREEN" / > <statusCode code="completed" /> <effectiveTime value= "116595337704" /> <value unit="" xsi:type="PQ" value="NEG (< 50 ng /mL)" /> <referenceRange> <observationRange> < text>NEGATIVE</text> </observationRange> </referenceRange> </observation> </component> <component> <observation moodCode="EVN" classCode="OBS"> <templateId root= "16.840.1.780534.10..4.2" /> <id nullFlavor="NA" /> < code codeSystem="local" code="COCAU" displayName="UR COCAINE METABOLITE SCREEN" /> <statusCode code="completed" /> <effectiveTime value= "531905280214" /> <value unit="" xsi:type="PQ" value="NEG (< 300 ng /mL)" /> <referenceRange> <observationRange> < text>NEGATIVE</text> </observationRange> </referenceRange> </observation> </component> <component> <observation moodCode="EVN" classCode="OBS"> <templateId root= "216.840.1.106396.10.20.22.4.2" /> <id nullFlavor="NA" /> < code codeSystem="local" code="METHU" displayName="UR METHADONE SCREEN" /> <statusCode code="completed" /> <effectiveTime value="955951758153 " /> <value unit="" xsi:type="PQ" value="NEG (< 300 ng/mL)" /> <referenceRange> <observationRange> <text>NEGATIVE </text> </observationRange> </referenceRange> </ observation> </component> <component> <observation moodCode= "EVN" classCode="OBS"> <templateId root="07.12.840.1.062131.10.4.2 " /> <id nullFlavor="NA" /> <code codeSystem="local" code= "BENZU" displayName="UR BENZODIAZEPINE SCREEN" /> <statusCode code= "completed" /> <effectiveTime value="059774603521" /> <value unit="" xsi:type="PQ" value="POS (> 200 ng/mL)" /> < interpretationCode codeSystem="local" code="*" /> <referenceRange> <observationRange> <text>NEGATIVE</text> </ observationRange> </referenceRange> </observation> </ component> </organizer> </entry> <entry> <organizer moodCode="EVN" classCode="BATTERY"> <templateId root="840.1.080725.03.15.22.4.1" /> <id nullFlavor="NA" /> <code codeSystem="local" code="UC" displayName= "URINE CULTURE" /> <statusCode code="completed" /> <component> <observation moodCode="EVN" classCode="OBS"> <templateId root= "07.12.840.1.040897.1022.4.2" /> <id nullFlavor="NA" /> < code codeSystem="local" code="MB" displayName="Microbiology" /> < statusCode code="completed" /> <effectiveTime value="161648633470" /> <value xsi:type="ST" value="<pre><b>URINE CULTURE</b> See BelowURINE CULTURE(F) Red Date/Time: 12/19/2017 04:50 Matty Date/Time: 12/21/2017 09:52SOURCE: URINESPEC DESC: CLEAN CATCHTREATMENT OF ASYMPTOMATIC BACTERIURIA IS NOT USUALLYCLINICALLY INDICATED.MIXED POS AND NEG?MIXED GRAM POSITIVE AND NEGATIVE BACTERIAGROUP B STREP?.INCLUDING GROUP B STREPTOCOCCUSJACOBSON [facility] [place] [facility] [place] [address]</pre>" /> <referenceRange> <observationRange> <text /> </observationRange> </referenceRange> </observation> </component> </organizer> </entry> <entry> < organizer moodCode="EVN" classCode="BATTERY"> <templateId root= "2.16.840.1.060266.10.20.22.4.1" /> <id nullFlavor="NA" /> <code codeSystem="local" code="WET" displayName="WET MOUNT" /> <statusCode code= "completed" /> <component> <observation moodCode="EVN" classCode= "OBS"> <templateId root="2.16.840.1.414274.10.20.22.4.2" /> < id nullFlavor="NA" /> <code codeSystem="local" code="MB" displayName= "Microbiology" /> <statusCode code="completed" /> < effectiveTime value="053719306736" /> <value xsi:type="ST" value="<pre> <b>WET MOUNT</b> See BelowWET MOUNT(F) Red Date/Time: 2017 05:41 Matty Date/Time: 12/19/2017 06:10SOURCE : CERVIXSPEC DESC: CLUE CELLSNO CLUE CELLS SEENOTHERRED BLOOD CELLSTRICHOMONASNO TRICHOMONAS SEENWBCFEW WBCYEASTNO YEAST SEENJACOBSON [facility]IC[address] [place] [address]</pre>" /> <referenceRange> <observationRange> <text /> </observationRange> </referenceRange> </observation> </component> </organizer > </entry> <entry> <organizer moodCode="EVN" classCode="BATTERY"> < templateId root="2.16.840.1.813959.10.20.22.4.1" /> <id nullFlavor="NA" /> <code codeSystem="local" code="GRAM" displayName="GRAM STAIN - CHLAMYDIA DNA BY PCR" /> <statusCode code="completed" /> <component> < observation moodCode="EVN" classCode="OBS"> <templateId root= "2.16.840.1.894222.10.20.22.4.2" /> <id nullFlavor="NA" /> < code codeSystem="local" code="MB" displayName="Microbiology" /> < statusCode code="completed" /> <effectiveTime value="619615492996" /> <value xsi:type="ST" value="<pre><b>GRAM STAIN - CHLAMYDIA DNA BY PCR - GONORRHOEA DNA BY PCR</b> See BelowGRAM STAIN(F) Red Date/ Time: 12/19/2017 05:41 Matty Date/Time: 12/19/2017 09:33SOURCE: CERVIXSPEC DESC: GRAM STAINFEW NEUTROPHILSFEW MIXED BACTERIAL FLORANO ORGANISMS SEEN RESEMBLING NEISSERIA [address]ONORRHOE[address] [id number] BelowCHLAMYDIA DNA BY PCR(F) Red Date/ Time: 12/19/2017 05:41 Matty Date/Time: 12/19/2017 09:33SOURCE: CERVIXSPEC DESC: [address] [id number] BelowGONORRHOEA DNA BY PCR(F) Red Date/Time : 12/19/2017 05:41 Matty Date/Time: 12/19/2017 09: 33SOURCE: CERVIXSPEC DESC: [facility] [place] [place] [address]</pre>" /> <referenceRange> < observationRange> <text /> </observationRange> </referenceRange> </observation> </component> </organizer> </ entry> <entry> <organizer moodCode="EVN" classCode="BATTERY"> < templateId root="216.840.1.302959.10..22.4.1" /> <id nullFlavor="NA" /> <code codeSystem="local" code="PREGU" displayName="UR TEST" /> <statusCode code="completed" /> <component> <observation moodCode="EVN" classCode="OBS"> <templateId root= "216.840.1.028687.10..22.4.2" /> <id nullFlavor="NA" /> < code codeSystem="local" code="PREGU" displayName="UR TEST" /> <statusCode code="completed" /> <effectiveTime value="372068098066" / > <value unit="" xsi:type="PQ" value="NEGATIVE" /> < referenceRange> <observationRange> <text>NEGATIVE</text > </observationRange> </referenceRange> </observation > </component> </organizer> </entry> <entry> <organizer moodCode= "EVN" classCode="BATTERY"> <templateId root="216.840.1.141981.10..22.4.1 " /> <id nullFlavor="NA" /> <code codeSystem="local" code="UANRC" displayName="URINALYSIS, NO REFLEX CULTURE" /> <statusCode code="completed " /> <component> <observation moodCode="EVN" classCode="OBS"> <templateId root="216.840.1.796573.03.15.22.4.2" /> <id nullFlavor ="NA" /> <code codeSystem="local" code="LEUESU" displayName="UA LEUKOCYTE ESTERASE DIPSTICK" /> <statusCode code="completed" /> <effectiveTime value="989154407434" /> <value unit="" xsi:type="PQ" value="1+" /> <interpretationCode codeSystem="local" code="*" /> <referenceRange> <observationRange> <text>NEGATIVE</ text> </observationRange> </referenceRange> </ observation> </component> <component> <observation moodCode= "EVN" classCode="OBS"> <templateId root="840.1.643543.03.15.22.4.2 " /> <id nullFlavor="NA" /> <code codeSystem="local" code= "NITRIU" displayName="UA NITRITE DIPSTICK" /> <statusCode code= "completed" /> <effectiveTime value="" /> <value unit="" xsi:type="PQ" value="POSITIVE" /> <interpretationCode codeSystem="local" code="*" /> <referenceRange> < observationRange> <text>NEGATIVE</text> </ observationRange> </referenceRange> </observation> </ component> <component> <observation moodCode="EVN" classCode="OBS"> <templateId root="07.12.840.1.867315.03.15.22.4.2" /> <id nullFlavor="NA" /> <code codeSystem="local" code="PROTEIU" displayName= "UA PROTEIN DIPSTICK" /> <statusCode code="completed" /> < effectiveTime value="926031522799" /> <value unit="" xsi:type="PQ" value="NEGATIVE" /> <referenceRange> <observationRange> <text>NEGATIVE</text> </observationRange> </ referenceRange> </observation> </component> <component> <observation moodCode="EVN" classCode="OBS"> <templateId root= "216.840.1.465203.03.15.22.4.2" /> <id nullFlavor="NA" /> < code codeSystem="local" code="DGLUU" displayName="UA GLUCOSE DIPSTICK" /> <statusCode code="completed" /> <effectiveTime value=" " /> <value unit="" xsi:type="PQ" value="NEGATIVE" /> < referenceRange> <observationRange> <text>NEGATIVE</text > </observationRange> </referenceRange> </observation > </component> <component> <observation moodCode="EVN" classCode="OBS"> <templateId root="07.12.840.1.564894.03.15.22.4.2" /> <id nullFlavor="NA" /> <code codeSystem="local" code="KETONU" displayName="UA KETONE DIPSTICK" /> <statusCode code="completed" /> <effectiveTime value="" /> <value unit="" xsi:type= "PQ" value="NEGATIVE" /> <referenceRange> <observationRange > <text>NEGATIVE</text> </observationRange> </ referenceRange> </observation> </component> <component> <observation moodCode="EVN" classCode="OBS"> <templateId root= "16.840.1.116407.10.4.2" /> <id nullFlavor="NA" /> < code codeSystem="local" code="UROBILU" displayName="UA UROBILINOGEN DIPSTICK" / > <statusCode code="completed" /> <effectiveTime value= "" /> <value unit="" xsi:type="PQ" value="NORMAL" /> <referenceRange> <observationRange> <text>NORMAL</ text> </observationRange> </referenceRange> </ observation> </component> <component> <observation moodCode= "EVN" classCode="OBS"> <templateId root="07.12.840.1.982420.10...4.2 " /> <id nullFlavor="NA" /> <code codeSystem="local" code= "BILU" displayName="UA BILIRUBIN DIPSTICK" /> <statusCode code= "completed" /> <effectiveTime value="178195197082" /> <value unit="" xsi:type="PQ" value="NEGATIVE" /> <referenceRange> < observationRange> <text>NEGATIVE</text> </ observationRange> </referenceRange> </observation> </ component> <component> <observation moodCode="EVN" classCode="OBS"> <templateId root="07.12.840.1.645471.10..4.2" /> <id nullFlavor="NA" /> <code codeSystem="local" code="LON" displayName="UA BLOOD DIPSTICK" /> <statusCode code="completed" /> < effectiveTime value="924717828780" /> <value unit="" xsi:type="PQ" value="3+" /> <interpretationCode codeSystem="local" code="*" /> <referenceRange> <observationRange> <text>NEGATIVE</ text> </observationRange> </referenceRange> </ observation> </component> <component> <observation moodCode= "EVN" classCode="OBS"> <templateId root="07.12.840.1.627547.10.20.22.4.2 " /> <id nullFlavor="NA" /> <code codeSystem="local" code= "SPGRU" displayName="UA SPECIFIC GRAVITY" /> <statusCode code= "completed" /> <effectiveTime value="766068508205" /> <value unit="" xsi:type="PQ" value="1.017" /> <referenceRange> < observationRange> <text>1.015-1.025</text> </ observationRange> </referenceRange> </observation> </ component> <component> <observation moodCode="EVN" classCode="OBS"> <templateId root="07.12.840.1.463464.10.4.2" /> <id nullFlavor="NA" /> <code codeSystem="local" code="WILLOW" displayName="UR PH" /> <statusCode code="completed" /> <effectiveTime value= "814577953773" /> <value unit="" xsi:type="PQ" value="5.5" /> <referenceRange> <observationRange> <text>5.0-7.0</text > </observationRange> </referenceRange> </observation > </component> </organizer> </entry> <entry> <organizer moodCode= "EVN" classCode="BATTERY"> <templateId root="07.12.840.1.249759.03.15.22.4.1 " /> <id nullFlavor="NA" /> <code codeSystem="local" code="UAMICRO" displayName="UA MICROSCOPIC" /> <statusCode code="completed" /> < component> <observation moodCode="EVN" classCode="OBS"> < templateId root="07.12.840.1.194604.03.15.22.4.2" /> <id nullFlavor="NA " /> <code codeSystem="local" code="BACU" displayName="UA BACTERIA" /> <statusCode code="completed" /> <effectiveTime value= "" /> <value unit="" xsi:type="PQ" value="3+" /> < interpretationCode codeSystem="local" code="*" /> <referenceRange> <observationRange> <text>NEGATIVE</text> </ observationRange> </referenceRange> </observation> </ component> <component> <observation moodCode="EVN" classCode="OBS"> <templateId root="216.840.1.131245.03.15.22.4.2" /> <id nullFlavor="NA" /> <code codeSystem="local" code="EPIU" displayName=" UA EPITHELIAL CELLS" /> <statusCode code="completed" /> < effectiveTime value="773334671268" /> <value unit="epi/hpf" xsi:type= "PQ" value="5+" /> <interpretationCode codeSystem="local" code="*" /> <referenceRange> <observationRange> <text>0 - 1 +</text> </observationRange> </referenceRange> </ observation> </component> <component> <observation moodCode= "EVN" classCode="OBS"> <templateId root="216.840.1.180695.03.15.224.2 " /> <id nullFlavor="NA" /> <code codeSystem="local" code= "RBCU" displayName="UA RBC" /> <statusCode code="completed" /> <effectiveTime value="272843232828" /> <value unit="rbc/hpf" xsi:type ="PQ" value="20-50" /> <interpretationCode codeSystem="local" code="*" /> <referenceRange> <observationRange> <text>0 - 3</text> </observationRange> </referenceRange> </ observation> </component> <component> <observation moodCode= "EVN" classCode="OBS"> <templateId root="216.840.1.815099.03.15.22.4.2 " /> <id nullFlavor="NA" /> <code codeSystem="local" code= "UAVOL" displayName="UA VOLUME FOR EXAM" /> <statusCode code="completed " /> <effectiveTime value="634566659754" /> <value unit="mL" xsi:type="PQ" value="12.0" /> <referenceRange> < observationRange> <text>(12mL STD)</text> </ observationRange> </referenceRange> </observation> </ component> <component> <observation moodCode="EVN" classCode="OBS"> <templateId root="07.12.840.1.772736.03.15.22.4.2" /> <id nullFlavor="NA" /> <code codeSystem="local" code="WBCU" displayName=" UA WBC" /> <statusCode code="completed" /> <effectiveTime value="164308849588" /> <value unit="wbc/hpf" xsi:type="PQ" value="10- 20" /> <interpretationCode codeSystem="local" code="*" /> < referenceRange> <observationRange> <text>0 - 5</text> </observationRange> </referenceRange> </observation> </component> </organizer> </entry> <entry> <organizer moodCode="EVN " classCode="BATTERY"> <templateId root="07.12.840.1.947754.03.15.22.4.1" / > <id nullFlavor="NA" /> <code codeSystem="local" code="CBCD" displayName="CBC W/DIFF" /> <statusCode code="completed" /> <component > <observation moodCode="EVN" classCode="OBS"> <templateId root= "07.12.840.1.168653..4.2" /> <id nullFlavor="NA" /> < code codeSystem="local" code="BA#" displayName="BASOPHIL #" /> < statusCode code="completed" /> <effectiveTime value="046411199533" /> <value unit="k/cumm" xsi:type="PQ" value="0.1" /> < referenceRange> <observationRange> <text>0.0-0.2</text> </observationRange> </referenceRange> </observation > </component> <component> <observation moodCode="EVN" classCode="OBS"> <templateId root="2.16.840.1.090483...4.2" /> <id nullFlavor="NA" /> <code codeSystem="local" code="BA% " displayName="BASOPHIL %" /> <statusCode code="completed" /> <effectiveTime value="793839157918" /> <value unit="%" xsi: type="PQ" value="1.0" /> <referenceRange> <observationRange > <text>0-1</text> </observationRange> </ referenceRange> </observation> </component> <component> <observation moodCode="EVN" classCode="OBS"> <templateId root= "2.16.840.1.731973.03.15.22.4.2" /> <id nullFlavor="NA" /> < code codeSystem="local" code="EO#" displayName="EOSINOPHIL #" /> < statusCode code="completed" /> <effectiveTime value="122339603230" /> <value unit="k/cumm" xsi:type="PQ" value="0.1" /> < referenceRange> <observationRange> <text>0.1-0.5</text> </observationRange> </referenceRange> </observation > </component> <component> <observation moodCode="EVN" classCode="OBS"> <templateId root="16.840.1.134772.10..4.2" /> <id nullFlavor="NA" /> <code codeSystem="local" code="EO% " displayName="EOSINOPHIL %" /> <statusCode code="completed" /> <effectiveTime value="114315906572" /> <value unit="%" xsi: type="PQ" value="2.0" /> <referenceRange> <observationRange > <text>2-4</text> </observationRange> </ referenceRange> </observation> </component> <component> <observation moodCode="EVN" classCode="OBS"> <templateId root= "07.12.840.1.599412.03.15.22.4.2" /> <id nullFlavor="NA" /> < code codeSystem="local" code="GR#" displayName="GRANULOCYTE #" /> < statusCode code="completed" /> <effectiveTime value="237878044854" /> <value unit="k/cumm" xsi:type="PQ" value="2.8" /> < referenceRange> <observationRange> <text>2.0-9.0</text> </observationRange> </referenceRange> </observation > </component> <component> <observation moodCode="EVN" classCode="OBS"> <templateId root="07.12.840.1.475961..22.4.2" /> <id nullFlavor="NA" /> <code codeSystem="local" code="GR% " displayName="GRANULOCYTE %" /> <statusCode code="completed" /> <effectiveTime value="052487527247" /> <value unit="%" xsi: type="PQ" value="46.9" /> <interpretationCode codeSystem="local" code= "*" /> <referenceRange> <observationRange> < text>50-75</text> </observationRange> </referenceRange> </observation> </component> <component> <observation moodCode="EVN" classCode="OBS"> <templateId root= "216.840.1.022574.03.15.22.4.2" /> <id nullFlavor="NA" /> < code codeSystem="local" code="LY#" displayName="LYMPHOCYTE #" /> < statusCode code="completed" /> <effectiveTime value="629511105051" /> <value unit="k/cumm" xsi:type="PQ" value="2.4" /> < referenceRange> <observationRange> <text>1.0-4.0</text> </observationRange> </referenceRange> </observation > </component> <component> <observation moodCode="EVN" classCode="OBS"> <templateId root="216.840.1.733767.03.15.22.4.2" /> <id nullFlavor="NA" /> <code codeSystem="local" code="LY% " displayName="LYMPHOCYTE %" /> <statusCode code="completed" /> <effectiveTime value="826981717103" /> <value unit="%" xsi: type="PQ" value="40.6" /> <interpretationCode codeSystem="local" code= "*" /> <referenceRange> <observationRange> < text>20-30</text> </observationRange> </referenceRange> </observation> </component> <component> <observation moodCode="EVN" classCode="OBS"> <templateId root= "216.840.1.443589.10.20.22.4.2" /> <id nullFlavor="NA" /> < code codeSystem="local" code="MCH" displayName="MEAN CELL HGB" /> < statusCode code="completed" /> <effectiveTime value="928119162222" /> <value unit="pg" xsi:type="PQ" value="26.5" /> < interpretationCode codeSystem="local" code="*" /> <referenceRange> <observationRange> <text>27.0-33.0</text> </ observationRange> </referenceRange> </observation> </ component> <component> <observation moodCode="EVN" classCode="OBS"> <templateId root="07.12.840.1.130743.03.15.224.2" /> <id nullFlavor="NA" /> <code codeSystem="local" code="MCHC" displayName= "MEAN CELL HGB CONCENTRATION" /> <statusCode code="completed" /> <effectiveTime value="966596380563" /> <value unit="g/dL" xsi:type= "PQ" value="30.0" /> <interpretationCode codeSystem="local" code="*" / > <referenceRange> <observationRange> <text> 32.0-37.0</text> </observationRange> </referenceRange> </observation> </component> <component> <observation moodCode="EVN" classCode="OBS"> <templateId root= "07.12.840.1.689103.10.4.2" /> <id nullFlavor="NA" /> < code codeSystem="local" code="MCV" displayName="MEAN CELL VOLUME" /> < statusCode code="completed" /> <effectiveTime value="443615188696" /> <value unit="fl" xsi:type="PQ" value="88.3" /> <referenceRange > <observationRange> <text>80.0-100.0</text> </observationRange> </referenceRange> </observation> </ component> <component> <observation moodCode="EVN" classCode="OBS"> <templateId root="07.12.840.1.705678.10.20.22.4.2" /> <id nullFlavor="NA" /> <code codeSystem="local" code="MO#" displayName= "MONOCYTE #" /> <statusCode code="completed" /> < effectiveTime value="202963912831" /> <value unit="k/cumm" xsi:type="PQ " value="0.6" /> <referenceRange> <observationRange> <text>0.1-1.0</text> </observationRange> </ referenceRange> </observation> </component> <component> <observation moodCode="EVN" classCode="OBS"> <templateId root= "07.12.840.1.247969.10..22.4.2" /> <id nullFlavor="NA" /> < code codeSystem="local" code="MO%" displayName="MONOCYTE %" /> <statusCode code="completed" /> <effectiveTime value="862412609886" /> <value unit="%" xsi:type="PQ" value="9.3" /> < interpretationCode codeSystem="local" code="*" /> <referenceRange> <observationRange> <text>4-6</text> </ observationRange> </referenceRange> </observation> </ component> <component> <observation moodCode="EVN" classCode="OBS"> <templateId root="07.12.840.1.617159.10.20.22.4.2" /> <id nullFlavor="NA" /> <code codeSystem="local" code="MPVT" displayName= "MEAN PLATELET VOLUME" /> <statusCode code="completed" /> < effectiveTime value="078539275889" /> <value unit="fl" xsi:type="PQ" value="9.1" /> <referenceRange> <observationRange> <text>8.5-10.9</text> </observationRange> </ referenceRange> </observation> </component> <component> <observation moodCode="EVN" classCode="OBS"> <templateId root= "216.840.1.544577.10.20.22.4.2" /> <id nullFlavor="NA" /> < code codeSystem="local" code="RBC" displayName="RED BLOOD CELL" /> < statusCode code="completed" /> <effectiveTime value="015988353954" /> <value unit="m/cumm" xsi:type="PQ" value="3.93" /> < interpretationCode codeSystem="local" code="*" /> <referenceRange> <observationRange> <text>4.00-6.00</text> </ observationRange> </referenceRange> </observation> </ component> <component> <observation moodCode="EVN" classCode="OBS"> <templateId root="2.16.840.1.903746.10.20.22.4.2" /> <id nullFlavor="NA" /> <code codeSystem="local" code="RDW" displayName=" RED CELL DISTRIBUTION WIDTH" /> <statusCode code="completed" /> <effectiveTime value="505879082608" /> <value unit="%" xsi:type= "PQ" value="13.8" /> <referenceRange> <observationRange> <text>11.0-15.6</text> </observationRange> </ referenceRange> </observation> </component> <component> <observation moodCode="EVN" classCode="OBS"> <templateId root= "07.12.840.1.314892.10.20.22.4.2" /> <id nullFlavor="NA" /> < code codeSystem="local" code="WBC" displayName="WHITE BLOOD CELL" /> < statusCode code="completed" /> <effectiveTime value="" /> <value unit="k/cumm" xsi:type="PQ" value="6.0" /> < referenceRange> <observationRange> <text>5.0-10.0</text > </observationRange> </referenceRange> </observation > </component> <component> <observation moodCode="EVN" classCode="OBS"> <templateId root="[id number]" /> <id nullFlavor="NA" /> <code codeSystem="local" code="HGBT" displayName="HEMOGLOBIN" /> <statusCode code="completed" /> < effectiveTime value="[id number]" /> <value unit="gm/dL" xsi:type="PQ " value="10.4" /> <interpretationCode codeSystem="local" code="*" /> <referenceRange> <observationRange> <text>12.0- 16.0</text> </observationRange> </referenceRange> </ observation> </component> <component> <observation moodCode= "EVN" classCode="OBS"> <templateId root="840.1.848543.10.20.22.4.2 " /> <id nullFlavor="NA" /> <code codeSystem="local" code= "HCTT" displayName="HEMATOCRIT" /> <statusCode code="completed" /> <effectiveTime value="976570074507" /> <value unit="%" xsi: type="PQ" value="34.7" /> <interpretationCode codeSystem="local" code= "*" /> <referenceRange> <observationRange> < text>37.0-47.0</text> </observationRange> </referenceRange> </observation> </component> <component> <observation moodCode="EVN" classCode="OBS"> <templateId root= "216.840.1.223235.10.22.4.2" /> <id nullFlavor="NA" /> < code codeSystem="local" code="NRBC%" displayName="NRBC %" /> < statusCode code="completed" /> <effectiveTime value="013363471972" /> <value unit="/100WBC" xsi:type="PQ" value="0.0" /> < referenceRange> <observationRange> <text>0.0-0.0</text> </observationRange> </referenceRange> </observation > </component> <component> <observation moodCode="EVN" classCode="OBS"> <templateId root="07.12.840.1.167013.10.4.2" /> <id nullFlavor="NA" /> <code codeSystem="local" code="PLTT" displayName="PLATELET COUNT" /> <statusCode code="completed" /> <effectiveTime value="480026738583" /> <value unit="k/cumm" xsi:type ="PQ" value="217" /> <referenceRange> <observationRange> <text>150-400</text> </observationRange> </ referenceRange> </observation> </component> <component> <observation moodCode="EVN" classCode="OBS"> <templateId root= "16.840.1.106002.10.22.4.2" /> <id nullFlavor="NA" /> < code codeSystem="local" code="IG%" displayName="IMMATURE GRANULOCYTE %" /> <statusCode code="completed" /> <effectiveTime value= "685377081313" /> <value unit="%" xsi:type="PQ" value="0.2" /> <referenceRange> <observationRange> <text>0.0-0.6< /text> </observationRange> </referenceRange> </ observation> </component> <component> <observation moodCode= "EVN" classCode="OBS"> <templateId root="840.1.369404.03.15.22.4.2 " /> <id nullFlavor="NA" /> <code codeSystem="local" code="IG# " displayName="IMMATURE GRANULOCYTE #" /> <statusCode code="completed" /> <effectiveTime value="871497584626" /> <value unit="k/cumm " xsi:type="PQ" value="0.01" /> <referenceRange> < observationRange> <text>0.00-0.09</text> </ observationRange> </referenceRange> </observation> </ component> </organizer> </entry> <entry> <organizer moodCode="EVN" classCode="BATTERY"> <templateId root="840.1.547563.03.15.22.4.1" /> <id nullFlavor="NA" /> <code codeSystem="local" code="METABC" displayName="METABOLIC PANEL, COMPREHN" /> <statusCode code="completed" /> <component> <observation moodCode="EVN" classCode="OBS"> < templateId root="07.12.840.1.926831.22.4.2" /> <id nullFlavor="NA " /> <code codeSystem="local" code="K" displayName="POTASSIUM" /> <statusCode code="completed" /> <effectiveTime value="534458098401 " /> <value unit="mmol/L" xsi:type="PQ" value="3.4" /> < interpretationCode codeSystem="local" code="*" /> <referenceRange> <observationRange> <text>3.5-5.3</text> </ observationRange> </referenceRange> </observation> </ component> <component> <observation moodCode="EVN" classCode="OBS"> <templateId root="16.840.1.994292.10.20.22.4.2" /> <id nullFlavor="NA" /> <code codeSystem="local" code="eGFR" displayName= "EST GFR (MDRD)" /> <statusCode code="completed" /> < effectiveTime value="443808709096" /> <value unit="mL/min" xsi:type="PQ " value="> 60" /> <referenceRange> <observationRange> <text>> 59</text> </observationRange> </ referenceRange> </observation> </component> <component> <observation moodCode="EVN" classCode="OBS"> <templateId root= "07.12.840.1.907617.10.20.22.4.2" /> <id nullFlavor="NA" /> < code codeSystem="local" code="GAP" displayName="ANION GAP" /> < statusCode code="completed" /> <effectiveTime value="602549220833" /> <value unit="mmol/L" xsi:type="PQ" value="12" /> < referenceRange> <observationRange> <text>5-15</text> </observationRange> </referenceRange> </observation> </component> <component> <observation moodCode="EVN" classCode= "OBS"> <templateId root="2.16.840.1.536599.10.22.4.2" /> < id nullFlavor="NA" /> <code codeSystem="local" code="eCrCl" displayName ="EST CrCl (CG)" /> <statusCode code="completed" /> < effectiveTime value="" /> <value unit="mL/min" xsi:type="PQ " value="> 60" /> <referenceRange> <observationRange> <text>> 59</text> </observationRange> </ referenceRange> </observation> </component> <component> <observation moodCode="EVN" classCode="OBS"> <templateId root= "16.840.1.595686.03.15.22.4.2" /> <id nullFlavor="NA" /> < code codeSystem="local" code="GLU" displayName="GLUCOSE" /> < statusCode code="completed" /> <effectiveTime value="248255550335" /> <value unit="mg/dL" xsi:type="PQ" value="87" /> < referenceRange> <observationRange> <text>70-99</text> </observationRange> </referenceRange> </observation> </component> <component> <observation moodCode="EVN" classCode= "OBS"> <templateId root="07.12.840.1.431585.10.4.2" /> < id nullFlavor="NA" /> <code codeSystem="local" code="CA" displayName= "CALCIUM" /> <statusCode code="completed" /> <effectiveTime value="166814917332" /> <value unit="mg/dL" xsi:type="PQ" value="8.0" / > <interpretationCode codeSystem="local" code="*" /> < referenceRange> <observationRange> <text>8.5-10.1</text > </observationRange> </referenceRange> </observation > </component> <component> <observation moodCode="EVN" classCode="OBS"> <templateId root="216.840.1.192969.1022.4.2" /> <id nullFlavor="NA" /> <code codeSystem="local" code="BUN" displayName="BLOOD UREA NITROGEN" /> <statusCode code="completed" /> <effectiveTime value="912236517341" /> <value unit="mg/dL" xsi: type="PQ" value="10" /> <referenceRange> <observationRange> <text>7-20</text> </observationRange> </ referenceRange> </observation> </component> <component> <observation moodCode="EVN" classCode="OBS"> <templateId root= "216.840.1.324809.03.15.22.4.2" /> <id nullFlavor="NA" /> < code codeSystem="local" code="CREAT" displayName="CREATININE" /> < statusCode code="completed" /> <effectiveTime value="115644106027" /> <value unit="mg/dL" xsi:type="PQ" value="0.6" /> < referenceRange> <observationRange> <text>0.6-1.0</text> </observationRange> </referenceRange> </observation > </component> <component> <observation moodCode="EVN" classCode="OBS"> <templateId root="216.840.1.748497.03.15.22.4.2" /> <id nullFlavor="NA" /> <code codeSystem="local" code="NA" displayName="SODIUM" /> <statusCode code="completed" /> < effectiveTime value="424290906032" /> <value unit="mmol/L" xsi:type="PQ " value="145" /> <referenceRange> <observationRange> <text>135-148</text> </observationRange> </ referenceRange> </observation> </component> <component> <observation moodCode="EVN" classCode="OBS"> <templateId root= "216.840.1.161248.10.20.22.4.2" /> <id nullFlavor="NA" /> < code codeSystem="local" code="CL" displayName="CHLORIDE" /> < statusCode code="completed" /> <effectiveTime value="859274936667" /> <value unit="mmol/L" xsi:type="PQ" value="110" /> < referenceRange> <observationRange> <text>98-110</text> </observationRange> </referenceRange> </observation> </component> <component> <observation moodCode="EVN" classCode ="OBS"> <templateId root="07.12.840.1.521484.10..22.4.2" /> < id nullFlavor="NA" /> <code codeSystem="local" code="AST" displayName= "AST/SGOT" /> <statusCode code="completed" /> <effectiveTime value="380299183618" /> <value unit="Units/L" xsi:type="PQ" value="8" / > <interpretationCode codeSystem="local" code="*" /> < referenceRange> <observationRange> <text>10-37</text> </observationRange> </referenceRange> </observation> </component> <component> <observation moodCode="EVN" classCode= "OBS"> <templateId root="07.12.840.1.904612.10.20.22.4.2" /> < id nullFlavor="NA" /> <code codeSystem="local" code="ALT" displayName= "ALT/SGPT" /> <statusCode code="completed" /> <effectiveTime value="193544284202" /> <value unit="Units/L" xsi:type="PQ" value="12" /> <referenceRange> <observationRange> <text>& lt; 66</text> </observationRange> </referenceRange> < /observation> </component> <component> <observation moodCode= "EVN" classCode="OBS"> <templateId root="216.840.1.420589.10.20.22.4.2 " /> <id nullFlavor="NA" /> <code codeSystem="local" code="CO2 " displayName="CARBON DIOXIDE" /> <statusCode code="completed" /> <effectiveTime value="388211288290" /> <value unit="mmol/L" xsi: type="PQ" value="23" /> <referenceRange> <observationRange> <text>21-32</text> </observationRange> </ referenceRange> </observation> </component> <component> <observation moodCode="EVN" classCode="OBS"> <templateId root= "16.840.1.713935.10.20.22.4.2" /> <id nullFlavor="NA" /> < code codeSystem="local" code="TP" displayName="TOTAL PROTEIN" /> < statusCode code="completed" /> <effectiveTime value="181651281950" /> <value unit="gm/dL" xsi:type="PQ" value="6.0" /> < interpretationCode codeSystem="local" code="*" /> <referenceRange> <observationRange> <text>6.4-8.2</text> </ observationRange> </referenceRange> </observation> </ component> <component> <observation moodCode="EVN" classCode="OBS"> <templateId root="16.840.1.854170.10..22.4.2" /> <id nullFlavor="NA" /> <code codeSystem="local" code="ALB" displayName= "ALBUMIN" /> <statusCode code="completed" /> <effectiveTime value="741025742997" /> <value unit="gm/dL" xsi:type="PQ" value="2.9" / > <interpretationCode codeSystem="local" code="*" /> < referenceRange> <observationRange> <text>3.4-5.0</text> </observationRange> </referenceRange> </observation > </component> <component> <observation moodCode="EVN" classCode="OBS"> <templateId root="16.840.1.045349...4.2" /> <id nullFlavor="NA" /> <code codeSystem="local" code="BILTOT" displayName="BILI TOTAL" /> <statusCode code="completed" /> < effectiveTime value="207716862215" /> <value unit="mg/dL" xsi:type="PQ " value="0.1" /> <referenceRange> <observationRange> <text>0.0-1.0</text> </observationRange> </ referenceRange> </observation> </component> <component> <observation moodCode="EVN" classCode="OBS"> <templateId root= "16.840.1.225887.10..22.4.2" /> <id nullFlavor="NA" /> < code codeSystem="local" code="ALKP" displayName="ALKALINE PHOSPHATASE TOTAL" /> <statusCode code="completed" /> <effectiveTime value= "193548181453" /> <value unit="IU/L" xsi:type="PQ" value="70" /> <referenceRange> <observationRange> <text>45-117</ text> </observationRange> </referenceRange> </ observation> </component> </organizer> </entry></section> Encounters ACCT No. Visit Date/Time Discharge Status Pt. Type Provider Facility Loc./Unit Complaint [id number] 06/18/2018 11:55:00 06/18/2018 23:59:59 CLS Outpatient [id number] 06/27/2018 13:55:00 ACT Outpatient [facility] [id number] 06/14/2013 14:27:00 06/19/2013 10:43:00 DIS Inpatient Alesia PIERRE, Dorie [address] [id number] 06/13/2013 17:25:00 06/13/2013 20:40:00 DIS Emergency Wanda PIERRE, Hill Sebastian [facility] [id number] 12/22/2012 23:31:00 12/23/2012 03:05:00 DIS Emergency George Sierra MD [facility] [id number] 04/30/2012 07:01:00 04/30/2012 07:50:00 DIS Emergency Ralph Amaya DO [facility] [id number] 01/22/2017 10:47:00 01/22/2017 12:48:00 DIS Emergency Ortega PIERRE, Everardo Dickey [facility] E.ED [id number] 06/28/2018 08:33:00 06/28/2018 10:20:00 DIS Outpatient KARIE ADAMS [id number] 02/18/2018 22:07:00 02/18/2018 22:39:00 DIS Emergency Stephen Ortiz [facility] ED CP. LLQ pain [id number] 12/17/2017 11:58:00 12/17/2017 12:58:00 DIS Emergency Rodriguez James [facility] ED jaw swelling [id number] 02/24/2017 19:29:00 02/24/2017 23:59:59 CLS Emergency Rader Jacob [facility] ED vag bleed [id number] 01/08/2017 05:07:00 01/08/2017 08:54:00 DIS Emergency Angel Stephen Cannon [facility] ED lower back pain, vomiting [id number] 09/12/2016 18:09:00 09/12/2016 20:46:00 DIS Emergency Sierra Howard [facility] ED L Flank pain [id number] 07/05/2016 23:41:00 07/06/2016 03:39:00 DIS Emergency Nadyadiop Curt [facility] ED R flank pain [id number] 02/26/2016 07:17:00 02/26/2016 11:52:00 DIS Emergency Amaya Daniel [facility] ED abscess above pelvic bone, fever [id number] 11/24/2015 20:54:00 11/25/2015 01:09:00 DIS Emergency Annetet Boudreaux [facility] ED left flank pain [id number] 01/16/2015 12:20:00 01/17/2015 12:10:00 DIS Outpatient Fletcher PIERRE, Alvarez Beasley [facility] J6E Chest pain r/o ACS [id number] 06/12/2014 18:40:00 06/13/2014 00:37:00 DIS Emergency Sugar Alvarado [facility] ED poss kidney stone [id number] 05/14/2014 17:44:00 05/14/2014 23:33:00 DIS Emergency Annmarie PIERRE, Morro Sebastian [facility] ED SOB, BACK PAIN [id number] 12/18/2017 05:20:42 Document Registration [id number] 01/09/2017 05:17:12 Document Registration [id number] 09/13/2016 05:15:56 Document Registration [id number] 07/06/2016 05:17:33 Document Registration [id number] 02/27/2016 05:15:43 Document Registration [id number] 11/25/2015 05:19:28 Document Registration [id number] 06/23/2015 05:16:11 Document Registration [id number] 06/22/2015 05:16:36 Document Registration [id number] 06/21/2015 05:16:53 Document Registration [id number] 06/16/2015 05:17:20 Document Registration [id number] 06/15/2015 15:09:00 ACT Inpatient [facility] on Jose A VILLALOBOSDavis J5W orbital cellulitis on the right [id number] 03/16/2015 13:37:04 Document Registration [id number] 03/16/2015 11:02:45 Document Registration [id number] 03/16/2015 10:56:21 Document Registration [id number] 03/16/2015 10:45:25 Document Registration [id number] 03/16/2015 10:40:17 Document Registration [id number] 03/16/2015 09:44:11 Document Registration [id number] 03/16/2015 09:20:09 Document Registration [id number] 08/31/2014 10:43:00 Document Registration [id number] 07/16/2014 09:06:00 Document Registration [id number] 09/12/2016 18:09:00 Document Registration [id number] 07/05/2016 23:41:00 Document Registration [id number] 02/26/2016 07:17:00 Document Registration [id number] 11/24/2015 20:54:00 Document Registration [id number] 01/31/2018 09:28:00 01/31/2018 10:38:00 DIS Emergency Brendan PIERRE, Shashi [facility] W.MANJIT [id number] 12/19/2017 03:01:00 12/19/2017 07:00:00 DIS Emergency Lucio PIERRE, Sidney Oshea [facility].EDS [id number] 11/17/2017 08:48:00 11/17/2017 10:06:00 DIS Emergency Dora PIERRE, Bridger Dickey [facility] W.EDS [id number] 07/01/2017 14:37:00 07/02/2017 20:37:00 DIS Inpatient Vale PIERRE, Teja George [facility] W.7TN [id number] 06/30/2017 22:06:00 07/01/2017 01:20:00 DIS Emergency Allegra [facility] [id number] 04/29/2017 10:53:00 04/29/2017 13:15:00 DIS Emergency Mehdi PIERRE, Bryan [facility].QUIANA [id number] 04/10/2017 02:08:00 04/10/2017 04:04:00 DIS Emergency Tasha PIERRE, Reny [facility].QUIANA [id number] 03/28/2017 05:02:00 03/28/2017 06:52:00 [id number] 02/24/2017 20:18:00 02/24/2017 23:00:00 DIS Emergency Nile Beltre DO [facility].MANJIT [id number] 01/31/2017 18:48:00 01/31/2017 22:03:00 DIS Emergency Josiah PIERRE, [facility] W.MANJIT [id number] 2016 18:06:00 10/26/2016 18:25:00 DIS Inpatient Geovanna PIERRE, [facility] W.3CE [id number] 07/15/2016 15:12:00 07/15/2016 16:40:00 DIS Emergency [facility] [id number] 06/17/2016 20:58:00 06/18/2016 00:15:00 DIS Emergency Renato Glynn DO [facility] W.MANJIT [id number] 12/26/2015 00:41:00 12/26/2015 02:13:00 DIS Emergency Tiki [facility]RE[facility].MAN[facility] [id number] 04/16/2015 02:21:00 04/17/2015 13:08:00 DIS Inpatient Silvano PIERRE, Harish [facility] W.7TS [id number] 04/15/2015 13:37:00 04/15/2015 16:14:00 DIS Emergency Josiah [facility]RE[facility] [id number] 02/15/2015 20:56:00 02/16/2015 01:11:00 DIS Emergency Patricia [facility] [id number] 01/30/2015 19:48:00 01/30/2015 22:00:00 DIS Emergency Kunal [facility]ERRE, [facility] [id number] 01/08/2015 05:06:00 01/08/2015 05:30:00 DIS Emergency Ofelia PIERRE, [facility].EDW [id number] 10/19/2014 10:42:00 10/21/2014 17:15:00 DIS Inpatient Hayder TRAVIS[address] [id number] 06/30/2014 03:04:00 06/30/2014 05:54:00 DIS Emergency Allegra PIERRE, [facility] [id number] 04/14/2014 15:57:00 04/14/2014 18:46:00 DIS Emergency Renard TRAVIS[id number] 02/21/2014 06:05:00 02/26/2014 16:05:00 DIS Inpatient Anamaria PIERRE, Kendra [facility] W.10TN [id number] 01/26/2014 19:31:00 01/26/2014 20:36:00 DIS Emergency Cassidy PIERRE, Joyce [facility].EDN [id number] 11/10/2013 00:39:00 11/10/2013 01:50:00 DIS Emergency Darryl PIERRE, Stephen Wooten [facility].EDW [id number] 07/08/2013 20:36:00 07/08/2013 22:30:00 DIS Emergency Nile Beltre [facility]av [facility] [id number] 07/08/2013 19:35:00 07/08/2013 20:00:00 DIS Emergency [facility] [id number] 05/28/2013 12:42:00 05/28/2013 16:25:00 DIS Emergency Renard TRAVIS, Renato [facility] W.EDN [id number] 11/21/2012 02:51:00 11/21/2012 03:23:00 DIS Emergency Garfield PIERRE, Dae [facility].EDW [id number] 11/06/2012 15:55:00 11/06/2012 20:12:00 DIS Emergency Elizabeth PIERRE, Ritesh Beasley [facility] [id number] 09/07/2012 22:26:00 09/08/2012 00:05:00 DIS Emergency Allegra PIERRE, [facility].EDN [id number] 07/03/2012 11:10:00 07/03/2012 16:35:00 DIS Emergency Gerardo PIERRE, [facility].EDN [id number] 03/06/2012 17:05:00 03/06/2012 20:02:00 DIS Emergency Patricia PIERRE, Purnima [facility] [id number] 01/28/2012 18:46:00 01/30/2012 17:00:00 DIS Inpatient Lucio PIERRE, Sidney [facility] W.E [id number] 11/27/2011 03:12:00 Inpatient
[2018-06-29] MEDS ORDERED: NS IV 1000 ML 1,000 ML IV STA (17:12)
[2018-06-29] MEDS ORDERED: ONDANSETRON 4 MG/2 ML (SDV) Z0FRAN IVP ONE (17:15)
[2018-06-29] MEDS ORDERED: fentaNYL INJECTION 100 MCG/2 ML AMP IVP ONE ×2 (17:15→19:45)
[2018-06-29 17:38] LABS: BASOPHILS % (AUTO) 0 % (0-10); EOSINOPHILS # (AUTO) 0.3 10^3/uL (0.0-0.3); EOSINOPHILS % (AUTO) 2 % (0-10); HEMATOCRIT 28 % (35-52); LYMPHOCYTES % (AUTO) 13 % (12-44); MEAN CORPUSCULAR HEMOGLOBIN 21 PG (25-34); MEAN CORPUSCULAR HGB CONC 29 G/DL (32-36); MEAN CORPUSCULAR VOLUME 72 FL (80-99); MEAN PLATELET VOLUME 9.2 FL (7.4-10.4); MONOCYTES # (AUTO) 1.3 X 10^3 (0.0-1.0); MONOCYTES % (AUTO) 8 % (0-12); NEUTROPHILS # (AUTO) 12.5 X 10^3 (1.8-7.8); NEUTROPHILS % (AUTO) 78 % (42-75); PLATELET COUNT 341 10^3/uL (130-400); RED CELL DISTRIBUTION WIDTH 17.4 % (10.0-14.5); WHITE BLOOD COUNT 16.1 10^3/uL (4.3-11.0)
[2018-06-29 17:53] LABS: ALANINE AMINOTRANSFERASE 15 U/L (0-55); ALBUMIN 4.3 GM/DL (3.2-4.5); ALKALINE PHOSPHATASE 68 U/L (40-136); BILIRUBIN,TOTAL 0.1 MG/DL (0.1-1.0); BUN/CREATININE RATIO 17; CARBON DIOXIDE 22 MMOL/L (21-32); CHLORIDE 105 MMOL/L (98-107); CREATININE SERUM 0.72 MG/DL (0.60-1.30); GFR ESTIMATED > 60; GLUCOSE 86 MG/DL (70-105); POTASSIUM 4.3 MMOL/L (3.6-5.0); SODIUM 137 MMOL/L (135-145); TOTAL PROTEIN 7.1 GM/DL (6.4-8.2)
[2018-06-29 17:56] LABS: INR 0.9 (0.8-1.4); PROTHROMBIN TIME PATIENT 12.6 SEC (12.2-14.7)
--- NOTE | 2018-06-29 17:59 | ED Integumentary General ---
General Chief Complaint: Skin/Wound Problems Stated Complaint: L ARMPIT SWELLING/REDNESS Source: patient Exam Limitations: no limitations History of Present Illness Date Seen by Provider: Jun 29, 2018 Time Seen by Provider: 17:00 Initial Comments 42-year-old female who presents to the emergency room with complaints of left axilla swelling and redness. She was seen and evaluated at [facility] 3 days ago and was started on Bactrim. Yesterday she was seen at [place] emergency room where she had an I&D of the left axilla and was given a shot of Rocephin IM. They marked to the area with a skin marker and when she woke up today the redness had spread outside of the skin marker and a red streak started to go down her arm. The abscess is still open and draining at this time. Cultures were sent. She's also had fevers as high as 101 today and nausea and vomiting. Timing/Duration: other (3 days ago) Associated Symptoms: change in skin texture, fever Allergies and Home Medications Allergies Coded Allergies: No Known Drug Allergies (Unverified , 06/29/18) Patient Home Medication List Home Medication List Reviewed: Yes Review of Systems Review of Systems Constitutional: see HPI, fever Gastrointestinal: see HPI, nausea, vomiting Skin: see HPI, change in color (redness and streaks going down her arm.) All Other Systems Reviewed Negative Unless Noted: Yes Past Usglalv-Ldssmj-Pgkcfb Hx Past Med/Social Hx: Reviewed Nursing Past Med/Soc Hx Patient Social History Recent Foreign Travel: No Contact w/Someone Who Travel: No Family Medical History Reviewed Nursing Family Hx Physical Exam Vital Signs Vital Signs - First Documented 06/29/18 17:04 Temp 98.1 Pulse 108 Resp 19 B/P (MAP) 108/87 (94) Pulse Ox 100 O2 Delivery Room Air Capillary Refill : General Appearance: WD/WN, no apparent distress Cardiovascular: normal peripheral pulses, regular rate, rhythm, no edema, no gallop, no JVD, no murmur Respiratory: chest non-tender, lungs clear, normal breath sounds, no respiratory distress, no accessory muscle use Neurologic/Psychiatric: alert, normal mood/affect, oriented x 3 Skin: normal color, warm/dry Skin Problem Location: other (left axilla) Skin Problem Character: abscess, erythema, tenderness, thickening, other ( abscess under the left axilla with surrounding erythema redness and induration.) Progress/Results/Core Measures Results/Orders Lab Results Laboratory Tests Test 06/29/18 17:20 Range/Units White Blood Count 16.1 H 4.3-11.0 10^3/uL Red Blood Count 3.87 L 4.35-5.85 10^6/uL Hemoglobin 8.0 L 11.5-16.0 G/DL Hematocrit 28 L 35-52 % Mean Corpuscular Volume 72 L 80-99 FL Mean Corpuscular Hemoglobin 21 L 25-34 PG Mean Corpuscular Hemoglobin Concent 29 L 32-36 G/DL Red Cell Distribution Width 17.4 H 10.0-14.5 % Platelet Count 341 130-400 10^3/uL Mean Platelet Volume 9.2 7.4-10.4 FL Neutrophils (%) (Auto) 78 H 42-75 % Lymphocytes (%) (Auto) 13 12-44 % Monocytes (%) (Auto) 8 0-12 % Eosinophils (%) (Auto) 2 0-10 % Basophils (%) (Auto) 0 0-10 % Neutrophils # (Auto) 12.5 H 1.8-7.8 X 10^3 Lymphocytes # (Auto) 2.0 1.0-4.0 X 10^3 Monocytes # (Auto) 1.3 H 0.0-1.0 X 10^3 Eosinophils # (Auto) 0.3 0.0-0.3 10^3/uL Basophils # (Auto) 0.0 0.0-0.1 10^3/uL Neutrophils % (Manual) 79 % Lymphocytes % (Manual) 15 % Monocytes % (Manual) 6 % Eosinophils % (Manual) 0 % Basophils % (Manual) 0 % Band Neutrophils 0 % Hypochromasia MODERATE Anisocytosis MODERATE Microcytosis MODERATE Spherocytes SLIGHT Prothrombin Time 12.6 12.2-14.7 SEC INR Comment 0.9 0.8-1.4 Activated Partial Thromboplast Time 29 24-35 SEC Sodium Level 137 135-145 MMOL/L Potassium Level 4.3 3.6-5.0 MMOL/L Chloride Level 105 98-107 MMOL/L Carbon Dioxide Level 22 21-32 MMOL/L Anion Gap 10 5-14 MMOL/L Blood Urea Nitrogen 12 7-18 MG/DL Creatinine 0.72 0.60-1.30 MG/DL Estimat Glomerular Filtration Rate > 60 BUN/Creatinine Ratio 17 Glucose Level 86 70-105 MG/DL Lactic Acid Level 1.10 0.50-2.00 MMOL/L Calcium Level 9.0 8.5-10.1 MG/DL Corrected Calcium 8.8 8.5-10.1 MG/DL Total Bilirubin 0.1 0.1-1.0 MG/DL Aspartate Amino Transf (AST/SGOT) 21 5-34 U/L Alanine Aminotransferase (ALT/SGPT) 15 0-55 U/L Alkaline Phosphatase 68 40-136 U/L Total Protein 7.1 6.4-8.2 GM/DL Albumin 4.3 3.2-4.5 GM/DL My Orders Orders - ROCCO DAVILA Cbc With Automated Diff (06/29/18 17:10) Comprehensive Metabolic Panel (06/29/18 17:10) Blood Culture (06/29/18 17:10) Protime With Inr (06/29/18 17:10) Partial Thromboplastin Time (06/29/18 17:10) Saline Lock/Iv-Start (06/29/18 17:10) Vital Signs Adult Sepsis Patie Q15M (06/29/18 17:10) Wound Culture (06/29/18 17:10) Lactic Acid Analyzer (06/29/18 17:10) Ns Iv 1000 Ml (Sodium Chloride 0.9%) (06/29/18 17:12) Fentanyl Injection (Sublimaze Injection (06/29/18 17:15) Ondansetron Injection (Zofran Injectio (06/29/18 17:15) Manual Differential (06/29/18 17:20) Ketorolac Injection (Toradol Injection) (06/29/18 18:15) Piperacillin Sodium/Tazobactam (Zosyn Vi (06/29/18 19:00) Medications Given in ED Current Medications Medications Dose Ordered Sig/Lily Route Start Time Stop Time Status Last Admin Dose Admin Fentanyl Citrate 50 mcg ONCE ONCE IVP 06/29/18 17:15 06/29/18 17:16 DC 06/29/18 17:31 50 MCG Ketorolac Tromethamine 30 mg ONCE ONCE IVP 06/29/18 18:15 06/29/18 18:16 DC 2/3/19 18:23 30 MG Ondansetron HCl 4 mg ONCE ONCE IVP 06/29/18 17:15 06/29/18 17:16 DC 06/29/18 17:31 4 MG Vital Signs/I&O 06/29/18 17:04 Temp 98.1 Pulse 108 Resp 19 B/P (MAP) 108/87 (94) Pulse Ox 100 O2 Delivery Room Air Progress Progress Note : Time: 18:30 Progress Note I have seen and evaluated the patient. I believe she she needs IV antibiotics due to filling outpatient therapy twice this time. She agrees with plan of care , plans for admission. I have discussed the case with Dr. Logan she agrees to accept the patient to [facility]. She recommends the use of Zosyn and vancomycin for antibiotic coverage. I've also consult to Dr. Collier at this time for surgical consult for possible I&D of abscess to the left axilla. Departure Communication (Admissions) Time/Spoke to Admitting Phy: 18:30 Dr. Logan Time/Spoke to Consulting Phy: 18:40 Dr. Collier Impression Primary Impression: Cellulitis Additional Impression: Abscess Disposition: ADMITTED INPATIENT Condition: Stable/Unchanged Admissions Decision to Admit Reason: Admit from ER (General) Decision to Admit/Date: Jun 30, 2018 Time/Decision to Admit Time: 18:30 Departure-Patient Inst. Referrals: NO,LOCAL PHYSICIAN (PCP/Family) Primary Care Physician ROCCO DAVILA Jun 29, 2018 17:59
[2018-06-29 18:09] LABS: BAND NEUTROPHILS 0 %; BASOPHILS % (MANUAL) 0 %; EOSINOPHILS % (MANUAL) 0 %; LYMPHOCYTES % (MANUAL) 15 %; MONOCYTES % (MANUAL) 6 %; NEUTROPHILS % (MANUAL) 79 %
[2018-06-29 18:10] LABS: ANISOCYTOSIS MODERATE; HYPOCHROMASIA MODERATE; MICROCYTOSIS MODERATE; SPHEROCYTES SLIGHT
[2018-06-29] MEDS ORDERED: KETOROLAC 30 MG/ML VIAL IVP ONE (18:15)
--- NOTE | 2018-06-29 18:30 | NUR ---
Pt now reports feeling as if there is a "bubble" in the left side of pt's chest. Pt describes feeling as pressure and if someone is sitting on chest. Pt reports this feeling began after arrival to ED.
--- NOTE | 2018-06-29 18:31 | NUR ---
Tera Browne notified of new chest discomfort pt has c/o.
[2018-06-29] MEDS ORDERED: PIPERACILLIN SODIUM/TAZOBACTAM 4.5 GM in NS (IVPB) 100 ML IV ONE (19:00)
--- NOTE | 2018-06-29 19:03 | NUR ---
Report given to GALLITO Meek.
--- OUTSIDE RECORDS SUMMARY | 2018-06-29 19:16 | XMS REPORT | Continuity of Care Document ---
Author Author [facility] Address Unknown Phone Unavailable Allergies [...] 15 mg/1.5 mL oral liquid) 12/08/2013 01/16/2015 HYDROcodone-acetaminophen([place] 5 mg-325 mg oral tablet) 1 tabs 12/08/2013 12/20/2013 Oral 1 tabs, Oral, q6hr, 12 tabs, PRN: as needed for pain HYDROcodone-acetaminophen([place] 5 mg-325 mg oral tablet) 1 tabs [...] 4 mg 4 mg, IV Push, Once HYDROcodone-acetaminophen([place] 5 mg-325 mg oral tablet) 1 tabs [...] drops 06/20/2015 06/22/2015 Eye-Both 2 drops, Eye-Both, [id number] oxyCODONE-acetaminophen(Percocet 7.5/325 oral tablet) 1 tabs 06/21/2015 [...] needed for nausea/vomiting, 18 tabs, 0 Refill(s) HYDROcodone-acetaminophen([place] 5 mg-325 mg oral tablet) 1 tabs [...] SUP/George Sierra MD., 24 tabs, 0 Refill(s) HYDROcodone-acetaminophen([place] 5 mg-325 mg oral tablet) 1 tabs [...] II OR UNSPEC TYPE, NOT UN 10/19/2014 [place] Harish TRAVIS 280.9 IRON DEFIC ANEMIA NOS 10/19/2014 [place] Harish TRAVIS 296.32 RECURR DEPR [facility] BIPOLAR DISORDER, UNSPECIFIED 10/19/2014 [place] Harish TRAVIS 300.00 ANXIETY STATE NOS 10/19/2014 [place] Harish TRAVIS 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 10/19/2014 [place] Harish TRAVIS 338.29 OTHER CHRONIC PAIN 10/19/2014 Harish Singletary DO 345.90 EPILEPSY UNSPEC W/O MENTION INTRACTABLE EPILEPSY 10/19/2014 [place] Harish TRAVIS 346.90 MIGRAINE UNSPECIFIED W/O INTRACT MGRN W/O STATUS M 10/19/2014 Harish Singletary DO 723.1 CERVICALGIA 10/19/2014 Harish Singletary DO 780.39 10/19/2014 Harish Singletary DO 789.00 ABDOMINAL PAIN, UNSPECIFIED SITE 10/19/2014 Harish Singletary DO V12.54 PERSONAL HX OF TIA, CEREBRAL INFARCTION W/OUT RES 10/19/2014 Harish Singletary DO V14.5 HX-NARCOTIC ALLERGY 10/19/2014 [place] Harish TRVAIS V14.6 HX-ANALGESIC ALLERGY 01/16/2015 Alvarez Bynum MD [...] G43.909 MIGRAINE, UNSP, NOT INTRACTABLE, WITHOUT STATUS [place] 2016 Arturo Austin MD K25.4 CHRONIC OR [...] Stephen Ortiz Final E66.9 Obesity, unspecified 01/11/2017 Stephen Ortiz Reason M54.9 Dorsalgia, unspecified 01/11/2017 Stephen [...] G43.909 MIGRAINE, UNSP, NOT INTRACTABLE, WITHOUT STATUS [place] 07/01/2017 Teja Collazo MD G47.00 INSOMNIA, UNSPECIFIED [...] PACKED CELL TRANSFUSION Harish Singletary DO 10/19/2014 [id number] INSPECTION OF UPPER INTESTINAL TRACT, JAMI Lomeli MD, Arturo Cannon [id number] Admission Intake Susan Beltre 12/03/2016 [id number] OFFICE/OUTPATIENT VISIT, EST Mandy Grier 12/18/2016 [id number] OFFICE/OUTPATIENT VISIT, Mandy Lundberg 12/18/2016 [id number] SPECIAL GROUP THERAPY Nina Rivera 05/23/2017 72924 SPECIAL GROUP THERAPY Nina Rivera 05/23/2017 H0001 [facility]AS [facility] Christina Gallegosa 11/22/2017 11444 Admission Intake Matthew, Barbara 06/18/2018 <section xmlns="urn:hl7-org:v3" xmlns:xsi="http:// www.Earmark3.org/2001/XMLSchema-instance"> <templateId root= "2.16.840.1.315985.10.20.22.2.3" /> <templateId root= "2.16.840.1.960838.10.20.22.2.3.1" /> <code codeSystemName="LOINC" codeSystem= "2.16.840.1.456514.6.1" code="62322-9" displayName="Results" /> <title>Results< /title> <text> <table> <thead> [...] <td>Pos 1+ NA</td> <td>Negative</td> </tr> <tr> <td>Specific [place]</td> <td>1.030 NA </td> <td>1.003-1.030</td> </tr> <tr> <td>UA [...] <td>Protein</td> <td>Negative NA</td> <td>Negative</td> </tr> <tr> <td>Specific [place]</td> <td>1.030 NA </td> <td>1.003-1.030</td> </tr> <tr> <td>UA [...] <td>Pos 1+ NA</td> <td>Negative</td> </tr> <tr> <td>Specific [place]</td> <td>1.035 NA</td> <td>1.003-1.030</td> </tr> < tr> <td>UA [...] <td>Pos 1+ NA</td> <td>Negative</td> </tr> <tr> <td>Specific [place]</td> <td>1.020 NA</ td> <td>1.003-1.030</td> </tr> <tr> <td>UA [...] <td>0.00-0.09</td> </tr> <tr> <th colspan="10"> METABOLIC PANEL, [facility] - 12/19/17 03:11</th> </tr> <tr> <td>POTASSIUM</td> <td>3.1 [...] </text> <entry> <organizer moodCode="EVN" classCode="BATTERY"> <templateId root= "216.840.1.101904.10..22.4.1" /> <id nullFlavor="NA" /> <code codeSystem="local" code="CBCD" displayName="CBC W/DIFF" /> <statusCode code ="completed" /> <component> <observation moodCode="EVN" classCode= "OBS"> <templateId root="16.840.1.101085.10..22.4.2" /> < id nullFlavor="NA" /> <code codeSystem="local" code="BA#" displayName= "BASOPHIL #" /> <statusCode code="completed" /> < effectiveTime value="500132770357" /> <value unit="k/cumm" xsi:type="PQ " value="0.1" /> <referenceRange> <observationRange> <text>0.0-0.2</text> </observationRange> </ referenceRange> </observation> </component> <component> <observation moodCode="EVN" classCode="OBS"> <templateId root= "2.16.840.1.348447.10.4.2" /> <id nullFlavor="NA" /> < code codeSystem="local" code="BA%" displayName="BASOPHIL %" /> <statusCode code="completed" /> <effectiveTime value="438367976390" /> <value unit="%" xsi:type="PQ" value="1" /> < referenceRange> <observationRange> <text>0-1</text> </observationRange> </referenceRange> </observation> </component> <component> <observation moodCode="EVN" classCode= "OBS"> <templateId root="07.12.840.1.867356.03.15.224.2" /> < id nullFlavor="NA" /> <code codeSystem="local" code="EO#" displayName= "EOSINOPHIL #" /> <statusCode code="completed" /> < effectiveTime value="641132860703" /> <value unit="k/cumm" xsi:type="PQ " value="0.5" /> <referenceRange> <observationRange> <text>0.1-0.5</text> </observationRange> </ referenceRange> </observation> </component> <component> <observation moodCode="EVN" classCode="OBS"> <templateId root= "216.840.1.191820.03.15.22.4.2" /> <id nullFlavor="NA" /> < code codeSystem="local" code="EO%" displayName="EOSINOPHIL %" /> <statusCode code="completed" /> <effectiveTime value="643505315155" /> <value unit="%" xsi:type="PQ" value="5" /> < interpretationCode codeSystem="local" code="*" /> <referenceRange> <observationRange> <text>2-4</text> </ observationRange> </referenceRange> </observation> </ component> <component> <observation moodCode="EVN" classCode="OBS"> <templateId root="07.12.840.1.465794.03.15.22.4.2" /> <id nullFlavor="NA" /> <code codeSystem="local" code="GR#" displayName= "GRANULOCYTE #" /> <statusCode code="completed" /> < effectiveTime value="647074566667" /> <value unit="k/cumm" xsi:type="PQ " value="4.1" /> <referenceRange> <observationRange> <text>2.0-9.0</text> </observationRange> </ referenceRange> </observation> </component> <component> <observation moodCode="EVN" classCode="OBS"> <templateId root= "07.12.840.1.058955....4.2" /> <id nullFlavor="NA" /> < code codeSystem="local" code="GR%" displayName="GRANULOCYTE %" /> <statusCode code="completed" /> <effectiveTime value="942836190214 " /> <value unit="%" xsi:type="PQ" value="46" /> < interpretationCode codeSystem="local" code="*" /> <referenceRange> <observationRange> <text>50-75</text> </ observationRange> </referenceRange> </observation> </ component> <component> <observation moodCode="EVN" classCode="OBS"> <templateId root="07.12.830.1.055259.10.22.4.2" /> <id nullFlavor="NA" /> <code codeSystem="local" code="LY#" displayName= "LYMPHOCYTE #" /> <statusCode code="completed" /> < effectiveTime value="322103848483" /> <value unit="k/cumm" xsi:type="PQ " value="3.4" /> <referenceRange> <observationRange> <text>1.0-4.0</text> </observationRange> </ referenceRange> </observation> </component> <component> <observation moodCode="EVN" classCode="OBS"> <templateId root= "840.1.823717.1022.4.2" /> <id nullFlavor="NA" /> < code codeSystem="local" code="LY%" displayName="LYMPHOCYTE %" /> <statusCode code="completed" /> <effectiveTime value="" /> <value unit="%" xsi:type="PQ" value="37" /> < interpretationCode codeSystem="local" code="*" /> <referenceRange> <observationRange> <text>20-30</text> </ observationRange> </referenceRange> </observation> </ component> <component> <observation moodCode="EVN" classCode="OBS"> <templateId root="07.12.840.1.188509.10.22.4.2" /> <id nullFlavor="NA" /> <code codeSystem="local" code="MCH" displayName= "MEAN CELL HGB" /> <statusCode code="completed" /> < effectiveTime value="892709757837" /> <value unit="pg" xsi:type="PQ" value="21.2" /> <interpretationCode codeSystem="local" code="*" /> <referenceRange> <observationRange> <text>27.0- 33.0</text> </observationRange> </referenceRange> </ observation> </component> <component> <observation moodCode= "EVN" classCode="OBS"> <templateId root="16.840.1.247772.10..22.4.2 " /> <id nullFlavor="NA" /> <code codeSystem="local" code= "MCHC" displayName="MEAN CELL HGB CONCENTRATION" /> <statusCode code= "completed" /> <effectiveTime value="460791699789" /> <value unit="g/dl" xsi:type="PQ" value="28.9" /> <interpretationCode codeSystem="local" code="*" /> <referenceRange> < observationRange> <text>32.0-36.0</text> </ observationRange> </referenceRange> </observation> </ component> <component> <observation moodCode="EVN" classCode="OBS"> <templateId root="07.12.840.1.807983...4.2" /> <id nullFlavor="NA" /> <code codeSystem="local" code="MCV" displayName= "MEAN CELL VOLUME" /> <statusCode code="completed" /> < effectiveTime value="696073986804" /> <value unit="fl" xsi:type="PQ" value="73.3" /> <interpretationCode codeSystem="local" code="*" /> <referenceRange> <observationRange> <text>80.0- 100.0</text> </observationRange> </referenceRange> </ observation> </component> <component> <observation moodCode= "EVN" classCode="OBS"> <templateId root="07.12.840.1.595591.10.4.2 " /> <id nullFlavor="NA" /> <code codeSystem="local" code="MO# " displayName="MONOCYTE #" /> <statusCode code="completed" /> <effectiveTime value="429894680545" /> <value unit="k/cumm" xsi:type= "PQ" value="1.0" /> <referenceRange> <observationRange> <text>0.1-1.0</text> </observationRange> </ referenceRange> </observation> </component> <component> <observation moodCode="EVN" classCode="OBS"> <templateId root= "216.840.1.148479.03.15.224.2" /> <id nullFlavor="NA" /> < code codeSystem="local" code="MO%" displayName="MONOCYTE %" /> <statusCode code="completed" /> <effectiveTime value="810950422496" /> <value unit="%" xsi:type="PQ" value="12" /> < interpretationCode codeSystem="local" code="*" /> <referenceRange> <observationRange> <text>4-6</text> </ observationRange> </referenceRange> </observation> </ component> <component> <observation moodCode="EVN" classCode="OBS"> <templateId root="216.840.1.568024.03.15.224.2" /> <id nullFlavor="NA" /> <code codeSystem="local" code="OVAL" displayName= "OVALOCYTES" /> <statusCode code="completed" /> < effectiveTime value="969968576169" /> <value unit="" xsi:type="PQ" value="NOTED" /> <referenceRange> <observationRange> <text /> </observationRange> </referenceRange> </observation> </component> <component> <observation moodCode ="EVN" classCode="OBS"> <templateId root= "216.840.1.653741.10..4.2" /> <id nullFlavor="NA" /> < code codeSystem="local" code="RBC" displayName="RED BLOOD CELL" /> < statusCode code="completed" /> <effectiveTime value="381787977605" /> <value unit="m/cumm" xsi:type="PQ" value="3.97" /> < interpretationCode codeSystem="local" code="*" /> <referenceRange> <observationRange> <text>4.00-6.00</text> </ observationRange> </referenceRange> </observation> </ component> <component> <observation moodCode="EVN" classCode="OBS"> <templateId root="07.12.840.1.216546.03.15.22.4.2" /> <id nullFlavor="NA" /> <code codeSystem="local" code="RDW" displayName=" RED CELL DISTRIBUTION WIDTH" /> <statusCode code="completed" /> <effectiveTime value="666823253179" /> <value unit="%" xsi:type= "PQ" value="18.6" /> <interpretationCode codeSystem="local" code="*" / > <referenceRange> <observationRange> <text> 11.0-15.6</text> </observationRange> </referenceRange> </observation> </component> <component> <observation moodCode="EVN" classCode="OBS"> <templateId root= "16.840.1.642628.10.4.2" /> <id nullFlavor="NA" /> < code codeSystem="local" code="WBC" displayName="WHITE BLOOD CELL" /> < statusCode code="completed" /> <effectiveTime value="334621714903" /> <value unit="k/cumm" xsi:type="PQ" value="9.0" /> < referenceRange> <observationRange> <text>5.0-10.0</text > </observationRange> </referenceRange> </observation > </component> <component> <observation moodCode="EVN" classCode="OBS"> <templateId root="216.840.1.622366.10.20.22.4.2" /> <id nullFlavor="NA" /> <code codeSystem="local" code="HGBT" displayName="HEMOGLOBIN" /> <statusCode code="completed" /> < effectiveTime value="322242168372" /> <value unit="gm/dL" xsi:type="PQ " value="8.4" /> <interpretationCode codeSystem="local" code="*" /> <referenceRange> <observationRange> <text>12.0- 16.0</text> </observationRange> </referenceRange> </ observation> </component> <component> <observation moodCode= "EVN" classCode="OBS"> <templateId root="216.840.1.133326.10.20.22.4.2 " /> <id nullFlavor="NA" /> <code codeSystem="local" code= "HCTT" displayName="HEMATOCRIT" /> <statusCode code="completed" /> <effectiveTime value="366502651384" /> <value unit="%" xsi: type="PQ" value="29.1" /> <interpretationCode codeSystem="local" code= "*" /> <referenceRange> <observationRange> < text>37.0-47.0</text> </observationRange> </referenceRange> </observation> </component> <component> <observation moodCode="EVN" classCode="OBS"> <templateId root= "07.12.840.1.107583.10..22.4.2" /> <id nullFlavor="NA" /> < code codeSystem="local" code="PLT" displayName="PLATELET COUNT" /> < statusCode code="completed" /> <effectiveTime value="959052363043" /> <value unit="k/cumm" xsi:type="PQ" value="292" /> < referenceRange> <observationRange> <text>150-450</text> </observationRange> </referenceRange> </observation > </component> </organizer> </entry> <entry> <organizer moodCode= "EVN" classCode="BATTERY"> <templateId root="07.12.840.1.640800.10..22.4.1 " /> <id nullFlavor="NA" /> <code codeSystem="local" code="iCHEM8" displayName="CHEM/HEM PROFILE-BEDSIDE" /> <statusCode code="completed" /> <component> <observation moodCode="EVN" classCode="OBS"> < templateId root="07.12.840.1.911628.10..22.4.2" /> <id nullFlavor="NA " /> <code codeSystem="local" code="K" displayName="POTASSIUM" /> <statusCode code="completed" /> <effectiveTime value="716801029661 " /> <value unit="mmol/L" xsi:type="PQ" value="3.9" /> < referenceRange> <observationRange> <text>3.5-5.3</text> </observationRange> </referenceRange> </observation > </component> <component> <observation moodCode="EVN" classCode="OBS"> <templateId root="07.12.840.1.036986...4.2" /> <id nullFlavor="NA" /> <code codeSystem="local" code="CMETHOD " displayName="METHOD" /> <statusCode code="completed" /> < effectiveTime value="" /> <value unit="" xsi:type="PQ" value="Bedside" /> <referenceRange> <observationRange> <text /> </observationRange> </referenceRange> </observation> </component> <component> <observation moodCode="EVN" classCode="OBS"> <templateId root= "07.12.840.1.257501.03.15.224.2" /> <id nullFlavor="NA" /> < code codeSystem="local" code="GAP" displayName="ANION GAP" /> < statusCode code="completed" /> <effectiveTime value="" /> <value unit="mmol/L" xsi:type="PQ" value="15" /> < referenceRange> <observationRange> <text>10-20</text> </observationRange> </referenceRange> </observation> </component> <component> <observation moodCode="EVN" classCode= "OBS"> <templateId root="07.12.840.1.583780.03.15.22.4.2" /> < id nullFlavor="NA" /> <code codeSystem="local" code="HMETHOD" displayName="METHOD" /> <statusCode code="completed" /> < effectiveTime value="" /> <value unit="" xsi:type="PQ" value="Bedside" /> <referenceRange> <observationRange> <text /> </observationRange> </referenceRange> </observation> </component> <component> <observation moodCode="EVN" classCode="OBS"> <templateId root= "07.12.840.1.158376.03.15.22.4.2" /> <id nullFlavor="NA" /> < code codeSystem="local" code="GLU" displayName="GLUCOSE" /> < statusCode code="completed" /> <effectiveTime value="735177238986" /> <value unit="mg/dL" xsi:type="PQ" value="89" /> < referenceRange> <observationRange> <text>70-99</text> </observationRange> </referenceRange> </observation> </component> <component> <observation moodCode="EVN" classCode= "OBS"> <templateId root="2.16.840.1.423985.10..4.2" /> < id nullFlavor="NA" /> <code codeSystem="local" code="BUN" displayName= "BLOOD UREA NITROGEN" /> <statusCode code="completed" /> < effectiveTime value="335551523262" /> <value unit="mg/dL" xsi:type="PQ " value="5" /> <interpretationCode codeSystem="local" code="*" /> <referenceRange> <observationRange> <text>7-20</ text> </observationRange> </referenceRange> </ observation> </component> <component> <observation moodCode= "EVN" classCode="OBS"> <templateId root="2.16.840.1.928090...4.2 " /> <id nullFlavor="NA" /> <code codeSystem="local" code= "CREAT" displayName="CREATININE" /> <statusCode code="completed" /> <effectiveTime value="469155238002" /> <value unit="mg/dL" xsi: type="PQ" value="0.6" /> <referenceRange> <observationRange > <text>0.6-1.0</text> </observationRange> </ referenceRange> </observation> </component> <component> <observation moodCode="EVN" classCode="OBS"> <templateId root= "216.840.1.615272.10..4.2" /> <id nullFlavor="NA" /> < code codeSystem="local" code="HGBT" displayName="HEMOGLOBIN" /> < statusCode code="completed" /> <effectiveTime value="295943796176" /> <value unit="gm/dL" xsi:type="PQ" value="9.9" /> < interpretationCode codeSystem="local" code="*" /> <referenceRange> <observationRange> <text>12.0-16.0</text> </ observationRange> </referenceRange> </observation> </ component> <component> <observation moodCode="EVN" classCode="OBS"> <templateId root="07.12.840.1.557282.03.15.224.2" /> <id nullFlavor="NA" /> <code codeSystem="local" code="HCTT" displayName= "HEMATOCRIT" /> <statusCode code="completed" /> < effectiveTime value="931363370040" /> <value unit="%" xsi:type="PQ " value="29.0" /> <interpretationCode codeSystem="local" code="*" /> <referenceRange> <observationRange> <text>37.0- 47.0</text> </observationRange> </referenceRange> </ observation> </component> <component> <observation moodCode= "EVN" classCode="OBS"> <templateId root="07.12.840.1.578310.03.15.22.4.2 " /> <id nullFlavor="NA" /> <code codeSystem="local" code="NA " displayName="SODIUM" /> <statusCode code="completed" /> < effectiveTime value="489528909685" /> <value unit="mmol/L" xsi:type="PQ " value="134" /> <interpretationCode codeSystem="local" code="*" /> <referenceRange> <observationRange> <text>135-148 </text> </observationRange> </referenceRange> </ observation> </component> <component> <observation moodCode= "EVN" classCode="OBS"> <templateId root="07.12.840.1.357084.10...4.2 " /> <id nullFlavor="NA" /> <code codeSystem="local" code="CL " displayName="CHLORIDE" /> <statusCode code="completed" /> < effectiveTime value="977675517361" /> <value unit="mmol/L" xsi:type="PQ " value="101" /> <referenceRange> <observationRange> <text>98-110</text> </observationRange> </ referenceRange> </observation> </component> <component> <observation moodCode="EVN" classCode="OBS"> <templateId root= "07.12.840.1.072560....4.2" /> <id nullFlavor="NA" /> < code codeSystem="local" code="CO2" displayName="CARBON DIOXIDE" /> < statusCode code="completed" /> <effectiveTime value="639566207930" /> <value unit="mmol/L" xsi:type="PQ" value="23" /> < referenceRange> <observationRange> <text>21-32</text> </observationRange> </referenceRange> </observation> </component> <component> <observation moodCode="EVN" classCode= "OBS"> <templateId root="07.12.840.1.378756.10..22.4.2" /> < id nullFlavor="NA" /> <code codeSystem="local" code="CAION" displayName ="CALCIUM IONIZED" /> <statusCode code="completed" /> < effectiveTime value="383045917465" /> <value unit="mg/dL" xsi:type="PQ " value="4.7" /> <referenceRange> <observationRange> <text>4.5-5.3</text> </observationRange> </ referenceRange> </observation> </component> </organizer> </entry > <entry> <organizer moodCode="EVN" classCode="BATTERY"> <templateId root="216.840.1.805587.10..22.4.1" /> <id nullFlavor="NA" /> <code codeSystem="local" code="DRUGAB" displayName="UR DRUGS OF ABUSE SCREEN" /> <statusCode code="completed" /> <component> <observation moodCode= "EVN" classCode="OBS"> <templateId root="216.840.1.275441.10..22.4.2 " /> <id nullFlavor="NA" /> <code codeSystem="local" code= "AMPHU" displayName="UR AMPHETAMINES SCREEN" /> <statusCode code= "completed" /> <effectiveTime value="791739889881" /> <value unit="" xsi:type="PQ" value="NEG (<1000 ng/mL)" /> <referenceRange > <observationRange> <text>NEGATIVE</text> </ observationRange> </referenceRange> </observation> </ component> <component> <observation moodCode="EVN" classCode="OBS"> <templateId root="216.840.1.555058.10..22.4.2" /> <id nullFlavor="NA" /> <code codeSystem="local" code="BARBU" displayName= "UR BARBITURATE SCREEN" /> <statusCode code="completed" /> < effectiveTime value="664106709327" /> <value unit="" xsi:type="PQ" value="NEG (< 200 ng/mL)" /> <referenceRange> < observationRange> <text>NEGATIVE</text> </ observationRange> </referenceRange> </observation> </ component> <component> <observation moodCode="EVN" classCode="OBS"> <templateId root="216.840.1.314419.10..22.4.2" /> <id nullFlavor="NA" /> <code codeSystem="local" code="DAUCOMMENT" displayName="DRUGS OF ABUSE SCREEN COMMENT" /> <statusCode code= "completed" /> <effectiveTime value="650169107151" /> <value unit="" xsi:type="PQ" value="" /> <referenceRange> < observationRange> <text /> </observationRange> </referenceRange> </observation> </component> <component> <observation moodCode="EVN" classCode="OBS"> <templateId root= "2.16.840.1.234430.10..22.4.2" /> <id nullFlavor="NA" /> < code codeSystem="local" code="OPIU" displayName="UR OPIATES SCREEN" /> <statusCode code="completed" /> <effectiveTime value="734108565569" /> <value unit="" xsi:type="PQ" value="POS (> 300 ng/mL)" /> <interpretationCode codeSystem="local" code="*" /> <referenceRange> <observationRange> <text>NEGATIVE</text> </ observationRange> </referenceRange> </observation> </ component> <component> <observation moodCode="EVN" classCode="OBS"> <templateId root="2.16.840.1.933968.10..22.4.2" /> <id nullFlavor="NA" /> <code codeSystem="local" code="PCPU" displayName=" UR PHENCYCLIDINE (PCP) SCREEN" /> <statusCode code="completed" /> <effectiveTime value="421388760962" /> <value unit="" xsi:type="PQ " value="NEG (< 25 ng/mL)" /> <referenceRange> < observationRange> <text>NEGATIVE</text> </ observationRange> </referenceRange> </observation> </ component> <component> <observation moodCode="EVN" classCode="OBS"> <templateId root="216.840.1.495713.10...4.2" /> <id nullFlavor="NA" /> <code codeSystem="local" code="THCU" displayName=" UR CANNABINOIDS (THC) SCREEN" /> <statusCode code="completed" /> <effectiveTime value="136649314731" /> <value unit="" xsi:type="PQ " value="NEG (< 50 ng/mL)" /> <referenceRange> < observationRange> <text>NEGATIVE</text> </ observationRange> </referenceRange> </observation> </ component> <component> <observation moodCode="EVN" classCode="OBS"> <templateId root="216.840.1.432560.10..22.4.2" /> <id nullFlavor="NA" /> <code codeSystem="local" code="COCAU" displayName= "UR COCAINE METABOLITE SCREEN" /> <statusCode code="completed" /> <effectiveTime value="555855505978" /> <value unit="" xsi:type="PQ " value="NEG (< 300 ng/mL)" /> <referenceRange> < observationRange> <text>NEGATIVE</text> </ observationRange> </referenceRange> </observation> </ component> <component> <observation moodCode="EVN" classCode="OBS"> <templateId root="216.840.1.318590.10..22.4.2" /> <id nullFlavor="NA" /> <code codeSystem="local" code="METHU" displayName= "UR METHADONE SCREEN" /> <statusCode code="completed" /> < effectiveTime value="[id number]" /> <value unit="" xsi:type="PQ" value="NEG (< 300 ng/mL)" /> <referenceRange> < observationRange> <text>NEGATIVE</text> </ observationRange> </referenceRange> </observation> </ component> <component> <observation moodCode="EVN" classCode="OBS"> <templateId root="[id number]...4.2" /> <id nullFlavor="NA" /> <code codeSystem="local" code="BENZU" displayName= "UR BENZODIAZEPINE SCREEN" /> <statusCode code="completed" /> <effectiveTime value="[id number]" /> <value unit="" xsi:type="PQ" value="NEG (< 200 ng/mL)" /> <referenceRange> < observationRange> <text>NEGATIVE</text> </ observationRange> </referenceRange> </observation> </ component> </organizer> </entry> <entry> <organizer moodCode="EVN" classCode="BATTERY"> <templateId root="216.840.1.740885.10..22.4.1" /> <id nullFlavor="NA" /> <code codeSystem="local" code="PROLAC" displayName="PROLACTIN" /> <statusCode code="completed" /> <component > <observation moodCode="EVN" classCode="OBS"> <templateId root= "216.840.1.574871.10.20.22.4.2" /> <id nullFlavor="NA" /> < code codeSystem="local" code="PROLAC" displayName="PROLACTIN" /> < statusCode code="completed" /> <effectiveTime value="758910279345" /> <value unit="ng/mL" xsi:type="PQ" value="83.6" /> < interpretationCode codeSystem="local" code="*" /> <referenceRange> <observationRange> <text>1.8-29.2</text> </ observationRange> </referenceRange> </observation> </ component> </organizer> </entry> <entry> <organizer moodCode="EVN" classCode="BATTERY"> <templateId root="216.840.1.404433.10.20.22.4.1" /> <id nullFlavor="NA" /> <code codeSystem="local" code="CK" displayName= "CREATINE KINASE (CK/CPK)" /> <statusCode code="completed" /> < component> <observation moodCode="EVN" classCode="OBS"> < templateId root="216.840.1.830948.10.20.22.4.2" /> <id nullFlavor="NA " /> <code codeSystem="local" code="CK" displayName="CREATINE KINASE ( CK/CPK)" /> <statusCode code="completed" /> <effectiveTime value="[id number]" /> <value unit="Units/L" xsi:type="PQ" value="49" /> <referenceRange> <observationRange> <text>& lt; 193</text> </observationRange> </referenceRange> </observation> </component> </organizer> </entry> <entry> < organizer moodCode="EVN" classCode="BATTERY"> <templateId root= "16.840.1.394972.10...4.1" /> <id nullFlavor="NA" /> <code codeSystem="local" code="MRSAS" displayName="MRSA SURVEILLANCE SCREEN" /> < statusCode code="completed" /> <component> <observation moodCode= "EVN" classCode="OBS"> <templateId root="07.12.840.1.283227...4.2 " /> <id nullFlavor="NA" /> <code codeSystem="local" code= "MICRO" displayName="ICA_MICRO" /> <statusCode code="completed" /> <effectiveTime value="107866487726" /> <value unit="" xsi:type= "PQ" value="" /> <referenceRange> <observationRange> <text /> </observationRange> </referenceRange> </observation> </component> </organizer> </entry> <entry> < organizer moodCode="EVN" classCode="BATTERY"> <templateId root= "840.1.184365.03.15.22.4.1" /> <id nullFlavor="NA" /> <code codeSystem="local" code="GLUMON" displayName="GLUCOSE (POC)" /> < statusCode code="completed" /> <component> <observation moodCode= "EVN" classCode="OBS"> <templateId root="07.12.840.1.036811.10...4.2 " /> <id nullFlavor="NA" /> <code codeSystem="local" code= "GLUMON" displayName="GLUCOSE (POC)" /> <statusCode code="completed" / > <effectiveTime value="673001609194" /> <value unit="mg/dL" xsi:type="PQ" value="81" /> <referenceRange> < observationRange> <text>70-99</text> </observationRange > </referenceRange> </observation> </component> </ organizer> </entry> <entry> <organizer moodCode="EVN" classCode="BATTERY"> <templateId root="07.12.840.1.847511.10..22.4.1" /> <id nullFlavor= "NA" /> <code codeSystem="local" code="PREGU" displayName="UR TEST" /> <statusCode code="completed" /> <component> < observation moodCode="EVN" classCode="OBS"> <templateId root= "07.12.840.1.025591....4.2" /> <id nullFlavor="NA" /> < code codeSystem="local" code="PREGU" displayName="UR TEST" /> <statusCode code="completed" /> <effectiveTime value="859273419033" / > <value unit="" xsi:type="PQ" value="NEGATIVE" /> < referenceRange> <observationRange> <text>NEGATIVE</text > </observationRange> </referenceRange> </observation > </component> </organizer> </entry> <entry> <organizer moodCode= "EVN" classCode="BATTERY"> <templateId root="07.12.840.1.928897.10.22.4.1 " /> <id nullFlavor="NA" /> <code codeSystem="local" code="UAM" displayName="URINALYSIS WITH MICROSCOPIC" /> <statusCode code="completed" / > <component> <observation moodCode="EVN" classCode="OBS"> <templateId root="07.12.840.1.903819...4.2" /> <id nullFlavor="NA " /> <code codeSystem="local" code="LEUESU" displayName="UA LEUKOCYTE ESTERASE DIPSTICK" /> <statusCode code="completed" /> < effectiveTime value="" /> <value unit="" xsi:type="PQ" value="TRACE" /> <interpretationCode codeSystem="local" code="*" /> <referenceRange> <observationRange> <text> NEGATIVE</text> </observationRange> </referenceRange> </observation> </component> <component> <observation moodCode ="EVN" classCode="OBS"> <templateId root= "2.16.840.1.542998.03.15.224.2" /> <id nullFlavor="NA" /> < code codeSystem="local" code="NITRIU" displayName="UA NITRITE DIPSTICK" /> <statusCode code="completed" /> <effectiveTime value=" " /> <value unit="" xsi:type="PQ" value="NEGATIVE" /> < referenceRange> <observationRange> <text>NEGATIVE</text > </observationRange> </referenceRange> </observation > </component> <component> <observation moodCode="EVN" classCode="OBS"> <templateId root="2.16.840.1.296378.03.15.22.4.2" /> <id nullFlavor="NA" /> <code codeSystem="local" code="PROTEIU " displayName="UA PROTEIN DIPSTICK" /> <statusCode code="completed" /> <effectiveTime value="" /> <value unit="" xsi: type="PQ" value="NEGATIVE" /> <referenceRange> < observationRange> <text>NEGATIVE</text> </ observationRange> </referenceRange> </observation> </ component> <component> <observation moodCode="EVN" classCode="OBS"> <templateId root="16.840.1.509082.10...4.2" /> <id nullFlavor="NA" /> <code codeSystem="local" code="DGLUU" displayName= "UA GLUCOSE DIPSTICK" /> <statusCode code="completed" /> < effectiveTime value="" /> <value unit="" xsi:type="PQ" value="NEGATIVE" /> <referenceRange> <observationRange> <text>NEGATIVE</text> </observationRange> </ referenceRange> </observation> </component> <component> <observation moodCode="EVN" classCode="OBS"> <templateId root= "07.12.840.1.448932.10..4.2" /> <id nullFlavor="NA" /> < code codeSystem="local" code="KETONU" displayName="UA KETONE DIPSTICK" /> <statusCode code="completed" /> <effectiveTime value=" " /> <value unit="" xsi:type="PQ" value="NEGATIVE" /> < referenceRange> <observationRange> <text>NEGATIVE</text > </observationRange> </referenceRange> </observation > </component> <component> <observation moodCode="EVN" classCode="OBS"> <templateId root="07.12.840.1.543362.10..4.2" /> <id nullFlavor="NA" /> <code codeSystem="local" code="UROBILU " displayName="UA UROBILINOGEN DIPSTICK" /> <statusCode code="completed " /> <effectiveTime value="" /> <value unit="" xsi :type="PQ" value="NORMAL" /> <referenceRange> < observationRange> <text>NORMAL</text> </observationRange > </referenceRange> </observation> </component> < component> <observation moodCode="EVN" classCode="OBS"> < templateId root="16.840.1.275905.03.15.22.4.2" /> <id nullFlavor="NA " /> <code codeSystem="local" code="BILU" displayName="UA BILIRUBIN DIPSTICK" /> <statusCode code="completed" /> <effectiveTime value="" /> <value unit="" xsi:type="PQ" value="NEGATIVE" / > <referenceRange> <observationRange> <text> NEGATIVE</text> </observationRange> </referenceRange> </observation> </component> <component> <observation moodCode ="EVN" classCode="OBS"> <templateId root= "07.12.840.1.344189.03.15.22.4.2" /> <id nullFlavor="NA" /> < code codeSystem="local" code="LON" displayName="UA BLOOD DIPSTICK" /> < statusCode code="completed" /> <effectiveTime value="" /> <value unit="" xsi:type="PQ" value="NEGATIVE" /> < referenceRange> <observationRange> <text>NEGATIVE</text > </observationRange> </referenceRange> </observation > </component> <component> <observation moodCode="EVN" classCode="OBS"> <templateId root="07.12.840.1.955518.03.15.22.4.2" /> <id nullFlavor="NA" /> <code codeSystem="local" code="EPIU" displayName="UA EPITHELIAL CELLS" /> <statusCode code="completed" /> <effectiveTime value="" /> <value unit="epi/hpf" xsi:type="PQ" value="3+" /> <interpretationCode codeSystem="local" code ="*" /> <referenceRange> <observationRange> < text>0 - 1+</text> </observationRange> </referenceRange> </observation> </component> <component> <observation moodCode="EVN" classCode="OBS"> <templateId root= "07.12.840.1.407058.10.4.2" /> <id nullFlavor="NA" /> < code codeSystem="local" code="MUCUSU" displayName="UA MUCUS" /> < statusCode code="completed" /> <effectiveTime value="812886055820" /> <value unit="" xsi:type="PQ" value="1+" /> <referenceRange> <observationRange> <text>NEG TO 1+</text> </ observationRange> </referenceRange> </observation> </ component> <component> <observation moodCode="EVN" classCode="OBS"> <templateId root="840.1.743569.03.15.224.2" /> <id nullFlavor="NA" /> <code codeSystem="local" code="RBCU" displayName=" UA RBC" /> <statusCode code="completed" /> <effectiveTime value="708680683004" /> <value unit="rbc/hpf" xsi:type="PQ" value="0-3 " /> <referenceRange> <observationRange> <text> 0 - 3</text> </observationRange> </referenceRange> </ observation> </component> <component> <observation moodCode= "EVN" classCode="OBS"> <templateId root="07.12.840.1.138214.22.4.2 " /> <id nullFlavor="NA" /> <code codeSystem="local" code= "UAVOL" displayName="UA VOLUME FOR EXAM" /> <statusCode code="completed " /> <effectiveTime value="618365813923" /> <value unit="mL" xsi:type="PQ" value="12.0" /> <referenceRange> < observationRange> <text>(12mL STD)</text> </ observationRange> </referenceRange> </observation> </ component> <component> <observation moodCode="EVN" classCode="OBS"> <templateId root="16.840.1.502179.10..22.4.2" /> <id nullFlavor="NA" /> <code codeSystem="local" code="WBCU" displayName=" UA WBC" /> <statusCode code="completed" /> <effectiveTime value="467225639223" /> <value unit="wbc/hpf" xsi:type="PQ" value="2-5 " /> <referenceRange> <observationRange> <text> 0 - 5</text> </observationRange> </referenceRange> </ observation> </component> <component> <observation moodCode= "EVN" classCode="OBS"> <templateId root="07.12.840.1.207291.10..22.4.2 " /> <id nullFlavor="NA" /> <code codeSystem="local" code= "SPGRU" displayName="UA SPECIFIC GRAVITY" /> <statusCode code= "completed" /> <effectiveTime value="383211670903" /> <value unit="" xsi:type="PQ" value="1.007" /> <interpretationCode codeSystem= "local" code="*" /> <referenceRange> <observationRange> <text>1.015-1.025</text> </observationRange> </ referenceRange> </observation> </component> <component> <observation moodCode="EVN" classCode="OBS"> <templateId root= "07.12.840.1.068075.10...4.2" /> <id nullFlavor="NA" /> < code codeSystem="local" code="WILLOW" displayName="UR PH" /> <statusCode code="completed" /> <effectiveTime value="363588447356" /> < value unit="" xsi:type="PQ" value="6.0" /> <referenceRange> <observationRange> <text>5.0-7.0</text> </ observationRange> </referenceRange> </observation> </ component> </organizer> </entry> <entry> <organizer moodCode="EVN" classCode="BATTERY"> <templateId root="16.840.1.260763.10..4.1" /> <id nullFlavor="NA" /> <code codeSystem="local" code="UC" displayName= "URINE CULTURE" /> <statusCode code="completed" /> <component> <observation moodCode="EVN" classCode="OBS"> <templateId root= "16.840.1.647933....4.2" /> <id nullFlavor="NA" /> < code codeSystem="local" code="MICRO" displayName="ICA_MICRO" /> < statusCode code="completed" /> <effectiveTime value="319848550435" /> <value unit="" xsi:type="PQ" value="" /> <referenceRange> <observationRange> <text /> </observationRange> </referenceRange> </observation> </component> </ organizer> </entry> <entry> <organizer moodCode="EVN" classCode="BATTERY"> <templateId root="16.840.1.289336.10..22.4.1" /> <id nullFlavor= "NA" /> <code codeSystem="local" code="CBCD" displayName="CBC W/DIFF" /> <statusCode code="completed" /> <component> <observation moodCode="EVN" classCode="OBS"> <templateId root= "07.12.840.1.737086.10.4.2" /> <id nullFlavor="NA" /> < code codeSystem="local" code="BA#" displayName="BASOPHIL #" /> < statusCode code="completed" /> <effectiveTime value="017544241699" /> <value unit="k/cumm" xsi:type="PQ" value="0.1" /> < referenceRange> <observationRange> <text>0.0-0.2</text> </observationRange> </referenceRange> </observation > </component> <component> <observation moodCode="EVN" classCode="OBS"> <templateId root="840.1.838733.03.15.224.2" /> <id nullFlavor="NA" /> <code codeSystem="local" code="BA% " displayName="BASOPHIL %" /> <statusCode code="completed" /> <effectiveTime value="544916716036" /> <value unit="%" xsi: type="PQ" value="1" /> <referenceRange> <observationRange> <text>0-1</text> </observationRange> </ referenceRange> </observation> </component> <component> <observation moodCode="EVN" classCode="OBS"> <templateId root= "07.12.840.1.793200.03.15.224.2" /> <id nullFlavor="NA" /> < code codeSystem="local" code="EO#" displayName="EOSINOPHIL #" /> < statusCode code="completed" /> <effectiveTime value="273058342652" /> <value unit="k/cumm" xsi:type="PQ" value="0.3" /> < referenceRange> <observationRange> <text>0.1-0.5</text> </observationRange> </referenceRange> </observation > </component> <component> <observation moodCode="EVN" classCode="OBS"> <templateId root="07.12.840.1.506313.102022.4.2" /> <id nullFlavor="NA" /> <code codeSystem="local" code="EO% " displayName="EOSINOPHIL %" /> <statusCode code="completed" /> <effectiveTime value="563242780157" /> <value unit="%" xsi: type="PQ" value="6" /> <interpretationCode codeSystem="local" code="*" /> <referenceRange> <observationRange> <text>2- 4</text> </observationRange> </referenceRange> </ observation> </component> <component> <observation moodCode= "EVN" classCode="OBS"> <templateId root="16.840.1.347453.10.4.2 " /> <id nullFlavor="NA" /> <code codeSystem="local" code="GR# " displayName="GRANULOCYTE #" /> <statusCode code="completed" /> <effectiveTime value="624848431220" /> <value unit="k/cumm" xsi: type="PQ" value="2.0" /> <referenceRange> <observationRange > <text>2.0-9.0</text> </observationRange> </ referenceRange> </observation> </component> <component> <observation moodCode="EVN" classCode="OBS"> <templateId root= "07.12.840.1.202509.1022.4.2" /> <id nullFlavor="NA" /> < code codeSystem="local" code="GR%" displayName="GRANULOCYTE %" /> <statusCode code="completed" /> <effectiveTime value=" " /> <value unit="%" xsi:type="PQ" value="36" /> < interpretationCode codeSystem="local" code="*" /> <referenceRange> <observationRange> <text>50-75</text> </ observationRange> </referenceRange> </observation> </ component> <component> <observation moodCode="EVN" classCode="OBS"> <templateId root="840.1.454747.03.15.22.4.2" /> <id nullFlavor="NA" /> <code codeSystem="local" code="LY#" displayName= "LYMPHOCYTE #" /> <statusCode code="completed" /> < effectiveTime value="" /> <value unit="k/cumm" xsi:type="PQ " value="2.6" /> <referenceRange> <observationRange> <text>1.0-4.0</text> </observationRange> </ referenceRange> </observation> </component> <component> <observation moodCode="EVN" classCode="OBS"> <templateId root= "07.12.840.1.931958.10.2022.4.2" /> <id nullFlavor="NA" /> < code codeSystem="local" code="LY%" displayName="LYMPHOCYTE %" /> <statusCode code="completed" /> <effectiveTime value="" /> <value unit="%" xsi:type="PQ" value="47" /> < interpretationCode codeSystem="local" code="*" /> <referenceRange> <observationRange> <text>20-30</text> </ observationRange> </referenceRange> </observation> </ component> <component> <observation moodCode="EVN" classCode="OBS"> <templateId root="216.840.1.598426.10..22.4.2" /> <id nullFlavor="NA" /> <code codeSystem="local" code="MCH" displayName= "MEAN CELL HGB" /> <statusCode code="completed" /> < effectiveTime value="713983861422" /> <value unit="pg" xsi:type="PQ" value="22.0" /> <interpretationCode codeSystem="local" code="*" /> <referenceRange> <observationRange> <text>27.0- 33.0</text> </observationRange> </referenceRange> </ observation> </component> <component> <observation moodCode= "EVN" classCode="OBS"> <templateId root="216.840.1.684178.10..4.2 " /> <id nullFlavor="NA" /> <code codeSystem="local" code= "MCHC" displayName="MEAN CELL HGB CONCENTRATION" /> <statusCode code= "completed" /> <effectiveTime value="982976731148" /> <value unit="g/dl" xsi:type="PQ" value="30.7" /> <interpretationCode codeSystem="local" code="*" /> <referenceRange> < observationRange> <text>32.0-36.0</text> </ observationRange> </referenceRange> </observation> </ component> <component> <observation moodCode="EVN" classCode="OBS"> <templateId root="216.840.1.886260..4.2" /> <id nullFlavor="NA" /> <code codeSystem="local" code="MCV" displayName= "MEAN CELL VOLUME" /> <statusCode code="completed" /> < effectiveTime value="" /> <value unit="fl" xsi:type="PQ" value="71.4" /> <interpretationCode codeSystem="local" code="*" /> <referenceRange> <observationRange> <text>80.0- 100.0</text> </observationRange> </referenceRange> </ observation> </component> <component> <observation moodCode= "EVN" classCode="OBS"> <templateId root="216.840.1.723578.03.15.224.2 " /> <id nullFlavor="NA" /> <code codeSystem="local" code="MO# " displayName="MONOCYTE #" /> <statusCode code="completed" /> <effectiveTime value="" /> <value unit="k/cumm" xsi:type= "PQ" value="0.6" /> <referenceRange> <observationRange> <text>0.1-1.0</text> </observationRange> </ referenceRange> </observation> </component> <component> <observation moodCode="EVN" classCode="OBS"> <templateId root= "216.840.1.871472.03.15.224.2" /> <id nullFlavor="NA" /> < code codeSystem="local" code="MO%" displayName="MONOCYTE %" /> <statusCode code="completed" /> <effectiveTime value="" /> <value unit="%" xsi:type="PQ" value="11" /> < interpretationCode codeSystem="local" code="*" /> <referenceRange> <observationRange> <text>4-6</text> </ observationRange> </referenceRange> </observation> </ component> <component> <observation moodCode="EVN" classCode="OBS"> <templateId root="216.840.1.261209.10.4.2" /> <id nullFlavor="NA" /> <code codeSystem="local" code="OVAL" displayName= "OVALOCYTES" /> <statusCode code="completed" /> < effectiveTime value="" /> <value unit="" xsi:type="PQ" value="NOTED" /> <referenceRange> <observationRange> <text /> </observationRange> </referenceRange> </observation> </component> <component> <observation moodCode ="EVN" classCode="OBS"> <templateId root= "07.12.840.1.574690.03.15.224.2" /> <id nullFlavor="NA" /> < code codeSystem="local" code="RBC" displayName="RED BLOOD CELL" /> < statusCode code="completed" /> <effectiveTime value="" /> <value unit="m/cumm" xsi:type="PQ" value="3.62" /> < interpretationCode codeSystem="local" code="*" /> <referenceRange> <observationRange> <text>4.00-6.00</text> </ observationRange> </referenceRange> </observation> </ component> <component> <observation moodCode="EVN" classCode="OBS"> <templateId root="16.840.1.699325.03.15.22.4.2" /> <id nullFlavor="NA" /> <code codeSystem="local" code="RDW" displayName=" RED CELL DISTRIBUTION WIDTH" /> <statusCode code="completed" /> <effectiveTime value="" /> <value unit="%" xsi:type= "PQ" value="20.5" /> <interpretationCode codeSystem="local" code="*" / > <referenceRange> <observationRange> <text> 11.0-15.6</text> </observationRange> </referenceRange> </observation> </component> <component> <observation moodCode="EVN" classCode="OBS"> <templateId root= "216.840.1.805772.10..22.4.2" /> <id nullFlavor="NA" /> < code codeSystem="local" code="WBC" displayName="WHITE BLOOD CELL" /> < statusCode code="completed" /> <effectiveTime value="" /> <value unit="k/cumm" xsi:type="PQ" value="5.6" /> < referenceRange> <observationRange> <text>5.0-10.0</text > </observationRange> </referenceRange> </observation > </component> <component> <observation moodCode="EVN" classCode="OBS"> <templateId root="216.840.1.736378.10..22.4.2" /> <id nullFlavor="NA" /> <code codeSystem="local" code="HGBT" displayName="HEMOGLOBIN" /> <statusCode code="completed" /> < effectiveTime value="" /> <value unit="gm/dL" xsi:type="PQ " value="7.9" /> <interpretationCode codeSystem="local" code="*" /> <referenceRange> <observationRange> <text>12.0- 16.0</text> </observationRange> </referenceRange> </ observation> </component> <component> <observation moodCode= "EVN" classCode="OBS"> <templateId root="16.840.1.979955.10..22.4.2 " /> <id nullFlavor="NA" /> <code codeSystem="local" code= "HCTT" displayName="HEMATOCRIT" /> <statusCode code="completed" /> <effectiveTime value="110932100234" /> <value unit="%" xsi: type="PQ" value="25.9" /> <interpretationCode codeSystem="local" code= "*" /> <referenceRange> <observationRange> < text>37.0-47.0</text> </observationRange> </referenceRange> </observation> </component> <component> <observation moodCode="EVN" classCode="OBS"> <templateId root= "07.12.840.1.389491.10.4.2" /> <id nullFlavor="NA" /> < code codeSystem="local" code="PLT" displayName="PLATELET COUNT" /> < statusCode code="completed" /> <effectiveTime value="438757796063" /> <value unit="k/cumm" xsi:type="PQ" value="252" /> < referenceRange> <observationRange> <text>150-450</text> </observationRange> </referenceRange> </observation > </component> </organizer> </entry> <entry> <organizer moodCode= "EVN" classCode="BATTERY"> <templateId root="07.12.840.1.805973.10.20.22.4.1 " /> <id nullFlavor="NA" /> <code codeSystem="local" code="RENAL" displayName="RENAL FUNCTION PANEL" /> <statusCode code="completed" /> <component> <observation moodCode="EVN" classCode="OBS"> < templateId root="07.12.840.1.919267.03.15.22.4.2" /> <id nullFlavor="NA " /> <code codeSystem="local" code="K" displayName="POTASSIUM" /> <statusCode code="completed" /> <effectiveTime value=" " /> <value unit="mmol/L" xsi:type="PQ" value="3.9" /> < referenceRange> <observationRange> <text>3.5-5.3</text> </observationRange> </referenceRange> </observation > </component> <component> <observation moodCode="EVN" classCode="OBS"> <templateId root="2.16.840.1.576156.03.15.22.4.2" /> <id nullFlavor="NA" /> <code codeSystem="local" code="eGFR" displayName="EST GFR (MDRD)" /> <statusCode code="completed" /> <effectiveTime value="" /> <value unit="mL/min" xsi:type ="PQ" value="> 60" /> <referenceRange> <observationRange > <text>> 59</text> </observationRange> </ referenceRange> </observation> </component> <component> <observation moodCode="EVN" classCode="OBS"> <templateId root= "216.840.1.525373.03.15.22.4.2" /> <id nullFlavor="NA" /> < code codeSystem="local" code="GAP" displayName="ANION GAP" /> < statusCode code="completed" /> <effectiveTime value="" /> <value unit="mmol/L" xsi:type="PQ" value="7" /> < referenceRange> <observationRange> <text>5-15</text> </observationRange> </referenceRange> </observation> </component> <component> <observation moodCode="EVN" classCode= "OBS"> <templateId root="216.840.1.408967.10..22.4.2" /> < id nullFlavor="NA" /> <code codeSystem="local" code="eCrCl" displayName ="EST CrCl (CG)" /> <statusCode code="completed" /> < effectiveTime value="" /> <value unit="mL/min" xsi:type="PQ " value="> 60" /> <referenceRange> <observationRange> <text>> 59</text> </observationRange> </ referenceRange> </observation> </component> <component> <observation moodCode="EVN" classCode="OBS"> <templateId root= "16.840.1.872690.10..4.2" /> <id nullFlavor="NA" /> < code codeSystem="local" code="GLU" displayName="GLUCOSE" /> < statusCode code="completed" /> <effectiveTime value="" /> <value unit="mg/dL" xsi:type="PQ" value="77" /> < referenceRange> <observationRange> <text>70-99</text> </observationRange> </referenceRange> </observation> </component> <component> <observation moodCode="EVN" classCode= "OBS"> <templateId root="07.12.840.1.863084.10..22.4.2" /> < id nullFlavor="NA" /> <code codeSystem="local" code="CA" displayName= "CALCIUM" /> <statusCode code="completed" /> <effectiveTime value="" /> <value unit="mg/dL" xsi:type="PQ" value="8.2" / > <interpretationCode codeSystem="local" code="*" /> < referenceRange> <observationRange> <text>8.5-10.1</text > </observationRange> </referenceRange> </observation > </component> <component> <observation moodCode="EVN" classCode="OBS"> <templateId root="16.840.1.615638.10..22.4.2" /> <id nullFlavor="NA" /> <code codeSystem="local" code="BUN" displayName="BLOOD UREA NITROGEN" /> <statusCode code="completed" /> <effectiveTime value="772369895645" /> <value unit="mg/dL" xsi: type="PQ" value="5" /> <interpretationCode codeSystem="local" code="*" /> <referenceRange> <observationRange> <text>7- 20</text> </observationRange> </referenceRange> </ observation> </component> <component> <observation moodCode= "EVN" classCode="OBS"> <templateId root="07.12.840.1.464247...4.2 " /> <id nullFlavor="NA" /> <code codeSystem="local" code= "CREAT" displayName="CREATININE" /> <statusCode code="completed" /> <effectiveTime value="909016905607" /> <value unit="mg/dL" xsi: type="PQ" value="0.6" /> <referenceRange> <observationRange > <text>0.6-1.0</text> </observationRange> </ referenceRange> </observation> </component> <component> <observation moodCode="EVN" classCode="OBS"> <templateId root= "16.840.1.240011.10..22.4.2" /> <id nullFlavor="NA" /> < code codeSystem="local" code="NA" displayName="SODIUM" /> <statusCode code="completed" /> <effectiveTime value="" /> < value unit="mmol/L" xsi:type="PQ" value="139" /> <referenceRange> <observationRange> <text>135-148</text> </ observationRange> </referenceRange> </observation> </ component> <component> <observation moodCode="EVN" classCode="OBS"> <templateId root="16.840.1.009003.10..22.4.2" /> <id nullFlavor="NA" /> <code codeSystem="local" code="CL" displayName= "CHLORIDE" /> <statusCode code="completed" /> <effectiveTime value="" /> <value unit="mmol/L" xsi:type="PQ" value="104" /> <referenceRange> <observationRange> <text>98 -110</text> </observationRange> </referenceRange> </ observation> </component> <component> <observation moodCode= "EVN" classCode="OBS"> <templateId root="07.12.840.1.460930.10..22.4.2 " /> <id nullFlavor="NA" /> <code codeSystem="local" code="CO2 " displayName="CARBON DIOXIDE" /> <statusCode code="completed" /> <effectiveTime value="" /> <value unit="mmol/L" xsi: type="PQ" value="28" /> <referenceRange> <observationRange> <text>21-32</text> </observationRange> </ referenceRange> </observation> </component> <component> <observation moodCode="EVN" classCode="OBS"> <templateId root= "07.12.840.1.571613.10.4.2" /> <id nullFlavor="NA" /> < code codeSystem="local" code="ALB" displayName="ALBUMIN" /> < statusCode code="completed" /> <effectiveTime value="" /> <value unit="gm/dL" xsi:type="PQ" value="3.3" /> < interpretationCode codeSystem="local" code="*" /> <referenceRange> <observationRange> <text>3.4-5.0</text> </ observationRange> </referenceRange> </observation> </ component> <component> <observation moodCode="EVN" classCode="OBS"> <templateId root="840.1.694784.03.15.22.4.2" /> <id nullFlavor="NA" /> <code codeSystem="local" code="PHOS" displayName= "PHOSPHORUS" /> <statusCode code="completed" /> < effectiveTime value="" /> <value unit="mg/dL" xsi:type="PQ " value="4.2" /> <referenceRange> <observationRange> <text>2.5-4.9</text> </observationRange> </ referenceRange> </observation> </component> </organizer> </entry > <entry> <organizer moodCode="EVN" classCode="BATTERY"> <templateId root="840.1.489321.03.15.22.4.1" /> <id nullFlavor="NA" /> <code codeSystem="local" code="HDLPRO" displayName="LIPID PANEL" /> <statusCode code="completed" /> <component> <observation moodCode="EVN" classCode="OBS"> <templateId root="840.1.318087.03.15.22.4.2" /> <id nullFlavor="NA" /> <code codeSystem="local" code="CHOL/HDL " displayName="CHOLESTEROL/HDL RATIO" /> <statusCode code="completed" / > <effectiveTime value="" /> <value unit="" xsi: type="PQ" value="2.2" /> <referenceRange> <observationRange > <text> < 5.0</text> </observationRange> </ referenceRange> </observation> </component> <component> <observation moodCode="EVN" classCode="OBS"> <templateId root= "07.12.840.1.404685.10..22.4.2" /> <id nullFlavor="NA" /> < code codeSystem="local" code="LDLX" displayName="LDL CHOLESTEROL" /> < statusCode code="completed" /> <effectiveTime value="" /> <value unit="mg/dL" xsi:type="PQ" value="78" /> < referenceRange> <observationRange> <text>< 100</text > </observationRange> </referenceRange> </observation > </component> <component> <observation moodCode="EVN" classCode="OBS"> <templateId root="07.12.840.1.724792.10.20.22.4.2" /> <id nullFlavor="NA" /> <code codeSystem="local" code="VLDL" displayName="VLDL CHOLESTEROL" /> <statusCode code="completed" /> <effectiveTime value="" /> <value unit="mg/dL" xsi: type="PQ" value="9" /> <referenceRange> <observationRange> <text>< 30</text> </observationRange> </ referenceRange> </observation> </component> <component> <observation moodCode="EVN" classCode="OBS"> <templateId root= "840.1.322548.10..22.4.2" /> <id nullFlavor="NA" /> < code codeSystem="local" code="TRIG" displayName="TRIGLYCERIDES" /> < statusCode code="completed" /> <effectiveTime value="" /> <value unit="mg/dL" xsi:type="PQ" value="47" /> < referenceRange> <observationRange> <text>< 150</text > </observationRange> </referenceRange> </observation > </component> <component> <observation moodCode="EVN" classCode="OBS"> <templateId root="216.840.1.964577.10..4.2" /> <id nullFlavor="NA" /> <code codeSystem="local" code="CHOL" displayName="CHOLESTEROL" /> <statusCode code="completed" /> < effectiveTime value="" /> <value unit="mg/dL" xsi:type="PQ " value="158" /> <referenceRange> <observationRange> <text>< 200</text> </observationRange> </ referenceRange> </observation> </component> <component> <observation moodCode="EVN" classCode="OBS"> <templateId root= "216.840.1.952033.10..4.2" /> <id nullFlavor="NA" /> < code codeSystem="local" code="HDL" displayName="HDL CHOLESTEROL" /> < statusCode code="completed" /> <effectiveTime value="" /> <value unit="mg/dL" xsi:type="PQ" value="71" /> < referenceRange> <observationRange> <text>> 39</text> </observationRange> </referenceRange> </observation > </component> </organizer> </entry> <entry> <organizer moodCode= "EVN" classCode="BATTERY"> <templateId root="840.1.989767.03.15.22.4.1 " /> <id nullFlavor="NA" /> <code codeSystem="local" code="MAG" displayName="MAGNESIUM" /> <statusCode code="completed" /> <component > <observation moodCode="EVN" classCode="OBS"> <templateId root= "840.1.352771.03.15.22.4.2" /> <id nullFlavor="NA" /> < code codeSystem="local" code="MAG" displayName="MAGNESIUM" /> < statusCode code="completed" /> <effectiveTime value="586788332262" /> <value unit="mg/dL" xsi:type="PQ" value="1.7" /> < interpretationCode codeSystem="local" code="*" /> <referenceRange> <observationRange> <text>1.8-2.4</text> </ observationRange> </referenceRange> </observation> </ component> </organizer> </entry> <entry> <organizer moodCode="EVN" classCode="BATTERY"> <templateId root="840.1.347913.03.15.22.4.1" /> <id nullFlavor="NA" /> <code codeSystem="local" code="HBA1C" displayName="HEMOGLOBIN A1C" /> <statusCode code="completed" /> < component> <observation moodCode="EVN" classCode="OBS"> < templateId root="840.1.970499.03.15.22.4.2" /> <id nullFlavor="NA " /> <code codeSystem="local" code="HBA1C" displayName="HEMOGLOBIN A1C " /> <statusCode code="completed" /> <effectiveTime value= "629902337061" /> <value unit="%" xsi:type="PQ" value="5.7" /> <interpretationCode codeSystem="local" code="*" /> < referenceRange> <observationRange> <text>< 5.7</text > </observationRange> </referenceRange> </observation > </component> </organizer> </entry> <entry> <organizer moodCode= "EVN" classCode="BATTERY"> <templateId root="216.840.1.834106.10..22.4.1 " /> <id nullFlavor="NA" /> <code codeSystem="local" code="GLUMON" displayName="GLUCOSE (POC)" /> <statusCode code="completed" /> < component> <observation moodCode="EVN" classCode="OBS"> < templateId root="216.840.1.190060.10..22.4.2" /> <id nullFlavor="NA " /> <code codeSystem="local" code="GLUMON" displayName="GLUCOSE (POC) " /> <statusCode code="completed" /> <effectiveTime value= "743517213277" /> <value unit="mg/dL" xsi:type="PQ" value="80" /> <referenceRange> <observationRange> <text>70-99</ text> </observationRange> </referenceRange> </ observation> </component> </organizer> </entry> <entry> <organizer moodCode="EVN" classCode="BATTERY"> <templateId root= "216.840.1.368253.10..22.4.1" /> <id nullFlavor="NA" /> <code codeSystem="local" code="GLUMON" displayName="GLUCOSE (POC)" /> < statusCode code="completed" /> <component> <observation moodCode= "EVN" classCode="OBS"> <templateId root="2.16.840.1.113102.10.20.22.4.2 " /> <id nullFlavor="NA" /> <code codeSystem="local" code= "GLUMON" displayName="GLUCOSE (POC)" /> <statusCode code="completed" / > <effectiveTime value="787350806667" /> <value unit="mg/dL" xsi:type="PQ" value="73" /> <referenceRange> < observationRange> <text>70-99</text> </observationRange > </referenceRange> </observation> </component> </ organizer> </entry> <entry> <organizer moodCode="EVN" classCode="BATTERY"> <templateId root="2.16.840.1.093566.10.20.22.4.1" /> <id nullFlavor= "NA" /> <code codeSystem="local" code="FOLRBC" displayName="FOLIC ACID, RBC " /> <statusCode code="completed" /> <component> <observation moodCode="EVN" classCode="OBS"> <templateId root= "2.16.840.1.437163.10.20.22.4.2" /> <id nullFlavor="NA" /> < code codeSystem="local" code="FOLRBCT" displayName="FOLIC ACID, RBC" /> <statusCode code="completed" /> <effectiveTime value="731084538425" / > <value unit="ng/mL" xsi:type="PQ" value="827" /> < interpretationCode codeSystem="local" code="*" /> <referenceRange> <observationRange> <text>280-791</text> </ observationRange> </referenceRange> </observation> </ component> <component> <observation moodCode="EVN" classCode="OBS"> <templateId root="07.12.840.1.685493.10.20.22.4.2" /> <id nullFlavor="NA" /> <code codeSystem="local" code="FOLATE,HCT" displayName="FOLATE, HCT" /> <statusCode code="completed" /> < effectiveTime value="" /> <value unit="%" xsi:type="PQ " value="27.9" /> <referenceRange> <observationRange> <text /> </observationRange> </referenceRange> </observation> </component> </organizer> </entry> <entry> < organizer moodCode="EVN" classCode="BATTERY"> <templateId root= "07.12.840.1.308314.10.20.22.4.1" /> <id nullFlavor="NA" /> <code codeSystem="local" code="FETIBC" displayName="IRON W/ BINDING CAPACITY" /> <statusCode code="completed" /> <component> <observation moodCode= "EVN" classCode="OBS"> <templateId root="07.12.840.1.064345.10.20.22.4.2 " /> <id nullFlavor="NA" /> <code codeSystem="local" code= "FESAT" displayName="IRON SATURATION" /> <statusCode code="completed" / > <effectiveTime value="234030572900" /> <value unit="%SAT " xsi:type="PQ" value="8" /> <interpretationCode codeSystem="local" code="*" /> <referenceRange> <observationRange> <text>11-46</text> </observationRange> </referenceRange> </observation> </component> <component> <observation moodCode="EVN" classCode="OBS"> <templateId root= "07.12.840.1.612894.10.22.4.2" /> <id nullFlavor="NA" /> < code codeSystem="local" code="TIBC" displayName="IRON BINDING CAPACITY, TOTAL" / > <statusCode code="completed" /> <effectiveTime value= "931240573434" /> <value unit="mcg/dL" xsi:type="PQ" value="414" /> <referenceRange> <observationRange> <text>250-450 </text> </observationRange> </referenceRange> </ observation> </component> <component> <observation moodCode= "EVN" classCode="OBS"> <templateId root="840.1.945247.03.15.22.4.2 " /> <id nullFlavor="NA" /> <code codeSystem="local" code= "IRON" displayName="IRON" /> <statusCode code="completed" /> < effectiveTime value="879033101841" /> <value unit="mcg/dL" xsi:type="PQ " value="32" /> <interpretationCode codeSystem="local" code="*" /> <referenceRange> <observationRange> <text>35-150</ text> </observationRange> </referenceRange> </ observation> </component> </organizer> </entry> <entry> <organizer moodCode="EVN" classCode="BATTERY"> <templateId root= "07.12.840.1.634305.22.4.1" /> <id nullFlavor="NA" /> <code codeSystem="local" code="LEANNE" displayName="FERRITIN" /> <statusCode code= "completed" /> <component> <observation moodCode="EVN" classCode= "OBS"> <templateId root="07.12.840.1.144329.22.4.2" /> < id nullFlavor="NA" /> <code codeSystem="local" code="LEANNE" displayName= "FERRITIN" /> <statusCode code="completed" /> <effectiveTime value="014510269599" /> <value unit="ng/mL" xsi:type="PQ" value="4" /> <interpretationCode codeSystem="local" code="*" /> < referenceRange> <observationRange> <text>8-252</text> </observationRange> </referenceRange> </observation> </component> </organizer> </entry> <entry> <organizer moodCode="EVN " classCode="BATTERY"> <templateId root="216.840.1.945873.10..22.4.1" / > <id nullFlavor="NA" /> <code codeSystem="local" code="VITB12" displayName="VITAMIN B12" /> <statusCode code="completed" /> < component> <observation moodCode="EVN" classCode="OBS"> < templateId root="216.840.1.637334.10..22.4.2" /> <id nullFlavor="NA " /> <code codeSystem="local" code="VITB12" displayName="VITAMIN B12" / > <statusCode code="completed" /> <effectiveTime value= "540600337239" /> <value unit="pg/mL" xsi:type="PQ" value="642" /> <referenceRange> <observationRange> <text>211911< /text> </observationRange> </referenceRange> </ observation> </component> </organizer> </entry> <entry> <organizer moodCode="EVN" classCode="BATTERY"> <templateId root= "216.840.1.958131.10..22.4.1" /> <id nullFlavor="NA" /> <code codeSystem="local" code="TSH" displayName="THYROID STIM HORMONE (TSH)" /> < statusCode code="completed" /> <component> <observation moodCode= "EVN" classCode="OBS"> <templateId root="16.840.1.145250.10..22.4.2 " /> <id nullFlavor="NA" /> <code codeSystem="local" code="TSH " displayName="THYROID STIM HORMONE (TSH)" /> <statusCode code= "completed" /> <effectiveTime value="246230688984" /> <value unit="uIU/mL" xsi:type="PQ" value="0.94" /> <referenceRange> <observationRange> <text>0.34-4.82</text> </ observationRange> </referenceRange> </observation> </ component> </organizer> </entry> <entry> <organizer moodCode="EVN" classCode="BATTERY"> <templateId root="07.12.840.1.808077.10..22.4.1" /> <id nullFlavor="NA" /> <code codeSystem="local" code="TROPI" displayName="TROPONIN I" /> <statusCode code="completed" /> <component > <observation moodCode="EVN" classCode="OBS"> <templateId root= "16.840.1.833336.10.22.4.2" /> <id nullFlavor="NA" /> < code codeSystem="local" code="TROPI" displayName="TROPONIN I" /> < statusCode code="completed" /> <effectiveTime value="285975895289" /> <value unit="ng/mL" xsi:type="PQ" value="< 0.02" /> < referenceRange> <observationRange> <text>< 0.07</text > </observationRange> </referenceRange> </observation > </component> </organizer> </entry> <entry> <organizer moodCode= "EVN" classCode="BATTERY"> <templateId root="840.1.601218.10..4.1 " /> <id nullFlavor="NA" /> <code codeSystem="local" code="DIMER" displayName="D-DIMER QUANT" /> <statusCode code="completed" /> < component> <observation moodCode="EVN" classCode="OBS"> < templateId root="840.1.599048.03.15.22.4.2" /> <id nullFlavor="NA " /> <code codeSystem="local" code="DIMER" displayName="D-DIMER QUANT" /> <statusCode code="completed" /> <effectiveTime value= "572930555933" /> <value unit="ng/mL" xsi:type="PQ" value="< 150" / > <referenceRange> <observationRange> <text>0- 229</text> </observationRange> </referenceRange> </ observation> </component> </organizer> </entry> <entry> <organizer moodCode="EVN" classCode="BATTERY"> <templateId root= "840.1.499182.03.15.22.4.1" /> <id nullFlavor="NA" /> <code codeSystem="local" code="GLUMON" displayName="GLUCOSE (POC)" /> < statusCode code="completed" /> <component> <observation moodCode= "EVN" classCode="OBS"> <templateId root="07.12.840.1.857825.10...4.2 " /> <id nullFlavor="NA" /> <code codeSystem="local" code= "GLUMON" displayName="GLUCOSE (POC)" /> <statusCode code="completed" / > <effectiveTime value="621909183092" /> <value unit="mg/dL" xsi:type="PQ" value="66" /> <interpretationCode codeSystem="local" code ="*" /> <referenceRange> <observationRange> < text>70-99</text> </observationRange> </referenceRange> </observation> </component> </organizer> </entry> <entry> < organizer moodCode="EVN" classCode="BATTERY"> <templateId root= "216.840.1.450389.10.20.22.4.1" /> <id nullFlavor="NA" /> <code codeSystem="local" code="GLUMON" displayName="GLUCOSE (POC)" /> < statusCode code="completed" /> <component> <observation moodCode= "EVN" classCode="OBS"> <templateId root="16.840.1.379266.10.20.22.4.2 " /> <id nullFlavor="NA" /> <code codeSystem="local" code= "GLUMON" displayName="GLUCOSE (POC)" /> <statusCode code="completed" / > <effectiveTime value="675372416339" /> <value unit="mg/dL" xsi:type="PQ" value="141" /> <interpretationCode codeSystem="local" code="*" /> <referenceRange> <observationRange> <text>70-99</text> </observationRange> </referenceRange> </observation> </component> </organizer> </entry> <entry> < organizer moodCode="EVN" classCode="BATTERY"> <templateId root= "16.840.1.895509.10.20.22.4.1" /> <id nullFlavor="NA" /> <code codeSystem="local" code="MAG" displayName="MAGNESIUM" /> <statusCode code= "completed" /> <component> <observation moodCode="EVN" classCode= "OBS"> <templateId root="2.16.840.1.974670.10..22.4.2" /> < id nullFlavor="NA" /> <code codeSystem="local" code="MAG" displayName= "MAGNESIUM" /> <statusCode code="completed" /> <effectiveTime value="428052677065" /> <value unit="mg/dL" xsi:type="PQ" value="2.3" / > <referenceRange> <observationRange> <text>1.8 -2.4</text> </observationRange> </referenceRange> </ observation> </component> </organizer> </entry> <entry> <organizer moodCode="EVN" classCode="BATTERY"> <templateId root= "216.840.1.572631.10..22.4.1" /> <id nullFlavor="NA" /> <code codeSystem="local" code="GLUMON" displayName="GLUCOSE (POC)" /> < statusCode code="completed" /> <component> <observation moodCode= "EVN" classCode="OBS"> <templateId root="216.840.1.691091.10..22.4.2 " /> <id nullFlavor="NA" /> <code codeSystem="local" code= "GLUMON" displayName="GLUCOSE (POC)" /> <statusCode code="completed" / > <effectiveTime value="369947512480" /> <value unit="mg/dL" xsi:type="PQ" value="71" /> <referenceRange> < observationRange> <text>70-99</text> </observationRange > </referenceRange> </observation> </component> </ organizer> </entry> <entry> <organizer moodCode="EVN" classCode="BATTERY"> <templateId root="216.840.1.974945.10..22.4.1" /> <id nullFlavor= "NA" /> <code codeSystem="local" code="CBCM" displayName="CBC W/MANUAL DIFF " /> <statusCode code="completed" /> <component> <observation moodCode="EVN" classCode="OBS"> <templateId root= "216.840.1.100649.10...4.2" /> <id nullFlavor="NA" /> < code codeSystem="local" code="MCH" displayName="MEAN CELL HGB" /> < statusCode code="completed" /> <effectiveTime value="" /> <value unit="pg" xsi:type="PQ" value="20.9" /> < interpretationCode codeSystem="local" code="*" /> <referenceRange> <observationRange> <text>27.0-33.0</text> </ observationRange> </referenceRange> </observation> </ component> <component> <observation moodCode="EVN" classCode="OBS"> <templateId root="216.840.1.163282.10...4.2" /> <id nullFlavor="NA" /> <code codeSystem="local" code="MCHC" displayName= "MEAN CELL HGB CONCENTRATION" /> <statusCode code="completed" /> <effectiveTime value="" /> <value unit="g/dl" xsi:type= "PQ" value="28.4" /> <interpretationCode codeSystem="local" code="*" / > <referenceRange> <observationRange> <text> 32.0-36.0</text> </observationRange> </referenceRange> </observation> </component> <component> <observation moodCode="EVN" classCode="OBS"> <templateId root= "216.840.1.003524.10..22.4.2" /> <id nullFlavor="NA" /> < code codeSystem="local" code="MCV" displayName="MEAN CELL VOLUME" /> < statusCode code="completed" /> <effectiveTime value="" /> <value unit="fl" xsi:type="PQ" value="73.6" /> < interpretationCode codeSystem="local" code="*" /> <referenceRange> <observationRange> <text>80.0-100.0</text> </ observationRange> </referenceRange> </observation> </ component> <component> <observation moodCode="EVN" classCode="OBS"> <templateId root="16.840.1.703343.03.15.22.4.2" /> <id nullFlavor="NA" /> <code codeSystem="local" code="RBC" displayName=" RED BLOOD CELL" /> <statusCode code="completed" /> < effectiveTime value="" /> <value unit="m/cumm" xsi:type="PQ " value="4.06" /> <referenceRange> <observationRange> <text>4.00-6.00</text> </observationRange> </ referenceRange> </observation> </component> <component> <observation moodCode="EVN" classCode="OBS"> <templateId root= "216.840.1.600329.10..4.2" /> <id nullFlavor="NA" /> < code codeSystem="local" code="RDW" displayName="RED CELL DISTRIBUTION WIDTH" /> <statusCode code="completed" /> <effectiveTime value= "" /> <value unit="%" xsi:type="PQ" value="18.6" /> <interpretationCode codeSystem="local" code="*" /> < referenceRange> <observationRange> <text>11.0-15.6</text > </observationRange> </referenceRange> </observation > </component> <component> <observation moodCode="EVN" classCode="OBS"> <templateId root="2.16.840.1.987575.03.15.22.4.2" /> <id nullFlavor="NA" /> <code codeSystem="local" code="WBC" displayName="WHITE BLOOD CELL" /> <statusCode code="completed" /> <effectiveTime value="" /> <value unit="k/cumm" xsi: type="PQ" value="6.3" /> <referenceRange> <observationRange > <text>5.0-10.0</text> </observationRange> </ referenceRange> </observation> </component> <component> <observation moodCode="EVN" classCode="OBS"> <templateId root= "2.16.840.1.343751.03.15.224.2" /> <id nullFlavor="NA" /> < code codeSystem="local" code="HGBT" displayName="HEMOGLOBIN" /> < statusCode code="completed" /> <effectiveTime value="" /> <value unit="gm/dL" xsi:type="PQ" value="8.5" /> < interpretationCode codeSystem="local" code="*" /> <referenceRange> <observationRange> <text>12.0-16.0</text> </ observationRange> </referenceRange> </observation> </ component> <component> <observation moodCode="EVN" classCode="OBS"> <templateId root="2.840.1.241123..22.4.2" /> <id nullFlavor="NA" /> <code codeSystem="local" code="HCTT" displayName= "HEMATOCRIT" /> <statusCode code="completed" /> < effectiveTime value="" /> <value unit="%" xsi:type="PQ " value="29.9" /> <interpretationCode codeSystem="local" code="*" /> <referenceRange> <observationRange> <text>37.0- 47.0</text> </observationRange> </referenceRange> </ observation> </component> <component> <observation moodCode= "EVN" classCode="OBS"> <templateId root="840.1.925849.03.15.22.4.2 " /> <id nullFlavor="NA" /> <code codeSystem="local" code="PLT " displayName="PLATELET COUNT" /> <statusCode code="completed" /> <effectiveTime value="" /> <value unit="k/cumm" xsi: type="PQ" value="269" /> <referenceRange> <observationRange > <text>150-450</text> </observationRange> </ referenceRange> </observation> </component> </organizer> </entry > <entry> <organizer moodCode="EVN" classCode="BATTERY"> <templateId root="07.12.840.1.282026.22.4.1" /> <id nullFlavor="NA" /> <code codeSystem="local" code="DIFFMORD" displayName="MANUAL DIFF(O)" /> < statusCode code="completed" /> <component> <observation moodCode= "EVN" classCode="OBS"> <templateId root="07.12.840.1.073644.10.4.2 " /> <id nullFlavor="NA" /> <code codeSystem="local" code= "BAND%" displayName="BAND %" /> <statusCode code="completed" / > <effectiveTime value="" /> <value unit="%" xsi:type="PQ" value="1" /> <referenceRange> < observationRange> <text>0-10</text> </observationRange> </referenceRange> </observation> </component> < component> <observation moodCode="EVN" classCode="OBS"> < templateId root="2.16.840.1.749601.03.15.224.2" /> <id nullFlavor="NA " /> <code codeSystem="local" code="EO#" displayName="EOSINOPHIL #" /> <statusCode code="completed" /> <effectiveTime value= "" /> <value unit="k/cumm" xsi:type="PQ" value="0.1" /> <referenceRange> <observationRange> <text>0.1-0.5 </text> </observationRange> </referenceRange> </ observation> </component> <component> <observation moodCode= "EVN" classCode="OBS"> <templateId root="2.16.840.1.008128.03.15.224.2 " /> <id nullFlavor="NA" /> <code codeSystem="local" code="EO& #37;" displayName="EOSINOPHIL %" /> <statusCode code="completed" / > <effectiveTime value="" /> <value unit="%" xsi:type="PQ" value="2" /> <referenceRange> < observationRange> <text>2-4</text> </observationRange> </referenceRange> </observation> </component> < component> <observation moodCode="EVN" classCode="OBS"> < templateId root="16.840.1.088559.03.15.22.4.2" /> <id nullFlavor="NA " /> <code codeSystem="local" code="GR#" displayName="GRANULOCYTE #" / > <statusCode code="completed" /> <effectiveTime value= "" /> <value unit="k/cumm" xsi:type="PQ" value="4.0" /> <referenceRange> <observationRange> <text>2.0-9.0 </text> </observationRange> </referenceRange> </ observation> </component> <component> <observation moodCode= "EVN" classCode="OBS"> <templateId root="07.12.840.1.576076.03.15.22.4.2 " /> <id nullFlavor="NA" /> <code codeSystem="local" code="LY# " displayName="LYMPHOCYTE #" /> <statusCode code="completed" /> <effectiveTime value="" /> <value unit="k/cumm" xsi:type ="PQ" value="1.7" /> <referenceRange> <observationRange> <text>1.0-4.0</text> </observationRange> </ referenceRange> </observation> </component> <component> <observation moodCode="EVN" classCode="OBS"> <templateId root= "07.12.840.1.154950.10.22.4.2" /> <id nullFlavor="NA" /> < code codeSystem="local" code="LY%" displayName="LYMPHOCYTE %" /> <statusCode code="completed" /> <effectiveTime value="" /> <value unit="%" xsi:type="PQ" value="27" /> < referenceRange> <observationRange> <text>20-30</text> </observationRange> </referenceRange> </observation> </component> <component> <observation moodCode="EVN" classCode= "OBS"> <templateId root="07.12.840.1.454842.10.4.2" /> < id nullFlavor="NA" /> <code codeSystem="local" code="MANDIFF" displayName="DIFFERENTIAL" /> <statusCode code="completed" /> <effectiveTime value="" /> <value unit="" xsi:type="PQ" value="MANUAL" /> <referenceRange> <observationRange> <text /> </observationRange> </referenceRange> </observation> </component> <component> <observation moodCode="EVN" classCode="OBS"> <templateId root= "840.1.073730.03.15.22.4.2" /> <id nullFlavor="NA" /> < code codeSystem="local" code="MO#" displayName="MONOCYTE #" /> < statusCode code="completed" /> <effectiveTime value="" /> <value unit="k/cumm" xsi:type="PQ" value="0.4" /> < referenceRange> <observationRange> <text>0.1-1.0</text> </observationRange> </referenceRange> </observation > </component> <component> <observation moodCode="EVN" classCode="OBS"> <templateId root="07.12.840.1.248898.104.2" /> <id nullFlavor="NA" /> <code codeSystem="local" code="MO% " displayName="MONOCYTE %" /> <statusCode code="completed" /> <effectiveTime value="" /> <value unit="%" xsi: type="PQ" value="7" /> <interpretationCode codeSystem="local" code="*" /> <referenceRange> <observationRange> <text>4- 6</text> </observationRange> </referenceRange> </ observation> </component> <component> <observation moodCode= "EVN" classCode="OBS"> <templateId root="216.840.1.684017.03.15.22.4.2 " /> <id nullFlavor="NA" /> <code codeSystem="local" code= "OVAL" displayName="OVALOCYTES" /> <statusCode code="completed" /> <effectiveTime value="" /> <value unit="" xsi:type= "PQ" value="NOTED" /> <referenceRange> <observationRange> <text /> </observationRange> </referenceRange> </observation> </component> <component> <observation moodCode="EVN" classCode="OBS"> <templateId root= "216.840.1.892778.03.15.22.4.2" /> <id nullFlavor="NA" /> < code codeSystem="local" code="SEG%" displayName="SEGMENTED NEUTROPHIL % " /> <statusCode code="completed" /> <effectiveTime value= "" /> <value unit="%" xsi:type="PQ" value="63" /> <referenceRange> <observationRange> <text>50-70</ text> </observationRange> </referenceRange> </ observation> </component> </organizer> </entry> <entry> <organizer moodCode="EVN" classCode="BATTERY"> <templateId root= "216.840.1.712773.03.15.22.4.1" /> <id nullFlavor="NA" /> <code codeSystem="local" code="RENAL" displayName="RENAL FUNCTION PANEL" /> < statusCode code="completed" /> <component> <observation moodCode= "EVN" classCode="OBS"> <templateId root="07.12.840.1.371746.10..4.2 " /> <id nullFlavor="NA" /> <code codeSystem="local" code="K" displayName="POTASSIUM" /> <statusCode code="completed" /> < effectiveTime value="[id number]" /> <value unit="mmol/L" xsi:type="PQ " value="4.0" /> <referenceRange> <observationRange> <text>3.5-5.3</text> </observationRange> </ referenceRange> </observation> </component> <component> <observation moodCode="EVN" classCode="OBS"> <templateId root= "840.1.651471.03.15.22.4.2" /> <id nullFlavor="NA" /> < code codeSystem="local" code="eGFR" displayName="EST GFR (MDRD)" /> < statusCode code="completed" /> <effectiveTime value="[id number]" /> <value unit="mL/min" xsi:type="PQ" value="> 60" /> < referenceRange> <observationRange> <text>> 59</text> </observationRange> </referenceRange> </observation > </component> <component> <observation moodCode="EVN" classCode="OBS"> <templateId root="07.12.840.1.071634.10...4.2" /> <id nullFlavor="NA" /> <code codeSystem="local" code="GAP" displayName="ANION GAP" /> <statusCode code="completed" /> < effectiveTime value="" /> <value unit="mmol/L" xsi:type="PQ " value="6" /> <referenceRange> <observationRange> <text>5-15</text> </observationRange> </referenceRange > </observation> </component> <component> <observation moodCode="EVN" classCode="OBS"> <templateId root= "216.840.1.780258.10..22.4.2" /> <id nullFlavor="NA" /> < code codeSystem="local" code="eCrCl" displayName="EST CrCl (CG)" /> < statusCode code="completed" /> <effectiveTime value="" /> <value unit="mL/min" xsi:type="PQ" value="> 60" /> < referenceRange> <observationRange> <text>> 59</text> </observationRange> </referenceRange> </observation > </component> <component> <observation moodCode="EVN" classCode="OBS"> <templateId root="16.840.1.617360.10..22.4.2" /> <id nullFlavor="NA" /> <code codeSystem="local" code="GLU" displayName="GLUCOSE" /> <statusCode code="completed" /> < effectiveTime value="" /> <value unit="mg/dL" xsi:type="PQ " value="66" /> <interpretationCode codeSystem="local" code="*" /> <referenceRange> <observationRange> <text>70-99</ text> </observationRange> </referenceRange> </ observation> </component> <component> <observation moodCode= "EVN" classCode="OBS"> <templateId root="07.12.840.1.596543.10..22.4.2 " /> <id nullFlavor="NA" /> <code codeSystem="local" code="CA " displayName="CALCIUM" /> <statusCode code="completed" /> < effectiveTime value="" /> <value unit="mg/dL" xsi:type="PQ " value="8.2" /> <interpretationCode codeSystem="local" code="*" /> <referenceRange> <observationRange> <text>8.5- 10.1</text> </observationRange> </referenceRange> </ observation> </component> <component> <observation moodCode= "EVN" classCode="OBS"> <templateId root="07.12.840.1.211958.10..22.4.2 " /> <id nullFlavor="NA" /> <code codeSystem="local" code="BUN " displayName="BLOOD UREA NITROGEN" /> <statusCode code="completed" /> <effectiveTime value="" /> <value unit="mg/dL" xsi:type="PQ" value="5" /> <interpretationCode codeSystem="local" code= "*" /> <referenceRange> <observationRange> < text>7-20</text> </observationRange> </referenceRange> </observation> </component> <component> <observation moodCode="EVN" classCode="OBS"> <templateId root= "07.12.840.1.278124.10..22.4.2" /> <id nullFlavor="NA" /> < code codeSystem="local" code="CREAT" displayName="CREATININE" /> < statusCode code="completed" /> <effectiveTime value="" /> <value unit="mg/dL" xsi:type="PQ" value="0.7" /> < referenceRange> <observationRange> <text>0.6-1.0</text> </observationRange> </referenceRange> </observation > </component> <component> <observation moodCode="EVN" classCode="OBS"> <templateId root="216.840.1.100976.10..4.2" /> <id nullFlavor="NA" /> <code codeSystem="local" code="NA" displayName="SODIUM" /> <statusCode code="completed" /> < effectiveTime value="" /> <value unit="mmol/L" xsi:type="PQ " value="136" /> <referenceRange> <observationRange> <text>135-148</text> </observationRange> </ referenceRange> </observation> </component> <component> <observation moodCode="EVN" classCode="OBS"> <templateId root= "07.12.840.1.462805.10.4.2" /> <id nullFlavor="NA" /> < code codeSystem="local" code="CL" displayName="CHLORIDE" /> < statusCode code="completed" /> <effectiveTime value="" /> <value unit="mmol/L" xsi:type="PQ" value="103" /> < referenceRange> <observationRange> <text>98-110</text> </observationRange> </referenceRange> </observation> </component> <component> <observation moodCode="EVN" classCode ="OBS"> <templateId root="07.12.840.1.464372.10.22.4.2" /> < id nullFlavor="NA" /> <code codeSystem="local" code="CO2" displayName= "CARBON DIOXIDE" /> <statusCode code="completed" /> < effectiveTime value="" /> <value unit="mmol/L" xsi:type="PQ " value="27" /> <referenceRange> <observationRange> <text>21-32</text> </observationRange> </ referenceRange> </observation> </component> <component> <observation moodCode="EVN" classCode="OBS"> <templateId root= "216.840.1.589515.10...4.2" /> <id nullFlavor="NA" /> < code codeSystem="local" code="ALB" displayName="ALBUMIN" /> < statusCode code="completed" /> <effectiveTime value="[id number]" /> <value unit="gm/dL" xsi:type="PQ" value="3.3" /> < interpretationCode codeSystem="local" code="*" /> <referenceRange> <observationRange> <text>3.4-5.0</text> </ observationRange> </referenceRange> </observation> </ component> <component> <observation moodCode="EVN" classCode="OBS"> <templateId root="16.840.1.471932...4.2" /> <id nullFlavor="NA" /> <code codeSystem="local" code="PHOS" displayName= "PHOSPHORUS" /> <statusCode code="completed" /> < effectiveTime value="[id number]" /> <value unit="mg/dL" xsi:type="PQ " value="3.8" /> <referenceRange> <observationRange> <text>2.5-4.9</text> </observationRange> </ referenceRange> </observation> </component> </organizer> </entry > <entry> <organizer moodCode="EVN" classCode="BATTERY"> <templateId root="216.840.1.890579.10..4.1" /> <id nullFlavor="NA" /> <code codeSystem="local" code="MAG" displayName="MAGNESIUM" /> <statusCode code= "completed" /> <component> <observation moodCode="EVN" classCode= "OBS"> <templateId root="07.12.840.1.624745.03.15.22.4.2" /> < id nullFlavor="NA" /> <code codeSystem="local" code="MAG" displayName= "MAGNESIUM" /> <statusCode code="completed" /> <effectiveTime value="[id number]" /> <value unit="mg/dL" xsi:type="PQ" value="1.9" / > <referenceRange> <observationRange> <text>1.8 -2.4</text> </observationRange> </referenceRange> </ observation> </component> </organizer> </entry> <entry> <organizer moodCode="EVN" classCode="BATTERY"> <templateId root= "840.1.842602.03.15.22.4.1" /> <id nullFlavor="NA" /> <code codeSystem="local" code="GLUMON" displayName="GLUCOSE (POC)" /> < statusCode code="completed" /> <component> <observation moodCode= "EVN" classCode="OBS"> <templateId root="07.12.840.1.587941.03.15.22.4.2 " /> <id nullFlavor="NA" /> <code codeSystem="local" code= "GLUMON" displayName="GLUCOSE (POC)" /> <statusCode code="completed" / > <effectiveTime value="[id number]" /> <value unit="mg/dL" xsi:type="PQ" value="67" /> <interpretationCode codeSystem="local" code ="*" /> <referenceRange> <observationRange> < text>70-99</text> </observationRange> </referenceRange> </observation> </component> </organizer> </entry> <entry> < organizer moodCode="EVN" classCode="BATTERY"> <templateId root= "216.840.1.418520.10..4.1" /> <id nullFlavor="NA" /> <code codeSystem="local" code="CBCD" displayName="CBC W/DIFF" /> <statusCode code ="completed" /> <component> <observation moodCode="EVN" classCode= "OBS"> <templateId root="216.840.1.206220.03.15.22.4.2" /> < id nullFlavor="NA" /> <code codeSystem="local" code="BA#" displayName= "BASOPHIL #" /> <statusCode code="completed" /> < effectiveTime value="" /> <value unit="k/cumm" xsi:type="PQ " value="0.1" /> <referenceRange> <observationRange> <text>0.0-0.2</text> </observationRange> </ referenceRange> </observation> </component> <component> <observation moodCode="EVN" classCode="OBS"> <templateId root= "216.840.1.329451.03.15.22.4.2" /> <id nullFlavor="NA" /> < code codeSystem="local" code="BA%" displayName="BASOPHIL %" /> <statusCode code="completed" /> <effectiveTime value="" /> <value unit="%" xsi:type="PQ" value="1" /> < referenceRange> <observationRange> <text>0-1</text> </observationRange> </referenceRange> </observation> </component> <component> <observation moodCode="EVN" classCode= "OBS"> <templateId root="16.840.1.784974.03.15.22.4.2" /> < id nullFlavor="NA" /> <code codeSystem="local" code="EO#" displayName= "EOSINOPHIL #" /> <statusCode code="completed" /> < effectiveTime value="" /> <value unit="k/cumm" xsi:type="PQ " value="0.2" /> <referenceRange> <observationRange> <text>0.1-0.5</text> </observationRange> </ referenceRange> </observation> </component> <component> <observation moodCode="EVN" classCode="OBS"> <templateId root= "07.12.840.1.611045.03.15.224.2" /> <id nullFlavor="NA" /> < code codeSystem="local" code="EO%" displayName="EOSINOPHIL %" /> <statusCode code="completed" /> <effectiveTime value="" /> <value unit="%" xsi:type="PQ" value="2" /> < referenceRange> <observationRange> <text>2-4</text> </observationRange> </referenceRange> </observation> </component> <component> <observation moodCode="EVN" classCode= "OBS"> <templateId root="07.12.840.1.621825.10.4.2" /> < id nullFlavor="NA" /> <code codeSystem="local" code="GR#" displayName= "GRANULOCYTE #" /> <statusCode code="completed" /> < effectiveTime value="" /> <value unit="k/cumm" xsi:type="PQ " value="4.2" /> <referenceRange> <observationRange> <text>2.0-9.0</text> </observationRange> </ referenceRange> </observation> </component> <component> <observation moodCode="EVN" classCode="OBS"> <templateId root= "07.12.840.1.335144.10.20.22.4.2" /> <id nullFlavor="NA" /> < code codeSystem="local" code="GR%" displayName="GRANULOCYTE %" /> <statusCode code="completed" /> <effectiveTime value=" " /> <value unit="%" xsi:type="PQ" value="51" /> < referenceRange> <observationRange> <text>50-75</text> </observationRange> </referenceRange> </observation> </component> <component> <observation moodCode="EVN" classCode= "OBS"> <templateId root="840.1.144166.10.22.4.2" /> < id nullFlavor="NA" /> <code codeSystem="local" code="LY#" displayName= "LYMPHOCYTE #" /> <statusCode code="completed" /> < effectiveTime value="" /> <value unit="k/cumm" xsi:type="PQ " value="3.2" /> <referenceRange> <observationRange> <text>1.0-4.0</text> </observationRange> </ referenceRange> </observation> </component> <component> <observation moodCode="EVN" classCode="OBS"> <templateId root= "07.12.840.1.471319.10.20.22.4.2" /> <id nullFlavor="NA" /> < code codeSystem="local" code="LY%" displayName="LYMPHOCYTE %" /> <statusCode code="completed" /> <effectiveTime value="" /> <value unit="%" xsi:type="PQ" value="39" /> < interpretationCode codeSystem="local" code="*" /> <referenceRange> <observationRange> <text>20-30</text> </ observationRange> </referenceRange> </observation> </ component> <component> <observation moodCode="EVN" classCode="OBS"> <templateId root="216.840.1.111008.10..22.4.2" /> <id nullFlavor="NA" /> <code codeSystem="local" code="MCH" displayName= "MEAN CELL HGB" /> <statusCode code="completed" /> < effectiveTime value="" /> <value unit="pg" xsi:type="PQ" value="21.2" /> <interpretationCode codeSystem="local" code="*" /> <referenceRange> <observationRange> <text>27.0- 33.0</text> </observationRange> </referenceRange> </ observation> </component> <component> <observation moodCode= "EVN" classCode="OBS"> <templateId root="216.840.1.710895.10..22.4.2 " /> <id nullFlavor="NA" /> <code codeSystem="local" code= "MCHC" displayName="MEAN CELL HGB CONCENTRATION" /> <statusCode code= "completed" /> <effectiveTime value="" /> <value unit="g/dl" xsi:type="PQ" value="29.0" /> <interpretationCode codeSystem="local" code="*" /> <referenceRange> < observationRange> <text>32.0-36.0</text> </ observationRange> </referenceRange> </observation> </ component> <component> <observation moodCode="EVN" classCode="OBS"> <templateId root="07.12.840.1.015828.22.4.2" /> <id nullFlavor="NA" /> <code codeSystem="local" code="MCV" displayName= "MEAN CELL VOLUME" /> <statusCode code="completed" /> < effectiveTime value="" /> <value unit="fl" xsi:type="PQ" value="73.2" /> <interpretationCode codeSystem="local" code="*" /> <referenceRange> <observationRange> <text>80.0- 100.0</text> </observationRange> </referenceRange> </ observation> </component> <component> <observation moodCode= "EVN" classCode="OBS"> <templateId root="840.1.392389.03.15.224.2 " /> <id nullFlavor="NA" /> <code codeSystem="local" code="MO# " displayName="MONOCYTE #" /> <statusCode code="completed" /> <effectiveTime value="" /> <value unit="k/cumm" xsi:type= "PQ" value="0.6" /> <referenceRange> <observationRange> <text>0.1-1.0</text> </observationRange> </ referenceRange> </observation> </component> <component> <observation moodCode="EVN" classCode="OBS"> <templateId root= "07.12.840.1.548199.10..4.2" /> <id nullFlavor="NA" /> < code codeSystem="local" code="MO%" displayName="MONOCYTE %" /> <statusCode code="completed" /> <effectiveTime value="" /> <value unit="%" xsi:type="PQ" value="7" /> < interpretationCode codeSystem="local" code="*" /> <referenceRange> <observationRange> <text>4-6</text> </ observationRange> </referenceRange> </observation> </ component> <component> <observation moodCode="EVN" classCode="OBS"> <templateId root="216.840.1.797755.03.15.22.4.2" /> <id nullFlavor="NA" /> <code codeSystem="local" code="OVAL" displayName= "OVALOCYTES" /> <statusCode code="completed" /> < effectiveTime value="" /> <value unit="" xsi:type="PQ" value="NOTED" /> <referenceRange> <observationRange> <text /> </observationRange> </referenceRange> </observation> </component> <component> <observation moodCode ="EVN" classCode="OBS"> <templateId root= "216.840.1.879325...4.2" /> <id nullFlavor="NA" /> < code codeSystem="local" code="RBC" displayName="RED BLOOD CELL" /> < statusCode code="completed" /> <effectiveTime value="" /> <value unit="m/cumm" xsi:type="PQ" value="3.77" /> < interpretationCode codeSystem="local" code="*" /> <referenceRange> <observationRange> <text>4.00-6.00</text> </ observationRange> </referenceRange> </observation> </ component> <component> <observation moodCode="EVN" classCode="OBS"> <templateId root="216.840.1.188490.03.15.224.2" /> <id nullFlavor="NA" /> <code codeSystem="local" code="RDW" displayName=" RED CELL DISTRIBUTION WIDTH" /> <statusCode code="completed" /> <effectiveTime value="" /> <value unit="%" xsi:type= "PQ" value="18.3" /> <interpretationCode codeSystem="local" code="*" / > <referenceRange> <observationRange> <text> 11.0-15.6</text> </observationRange> </referenceRange> </observation> </component> <component> <observation moodCode="EVN" classCode="OBS"> <templateId root= "216.840.1.333690.03.15.224.2" /> <id nullFlavor="NA" /> < code codeSystem="local" code="DIOGENES" displayName="SCHISTOCYTES" /> < statusCode code="completed" /> <effectiveTime value="" /> <value unit="" xsi:type="PQ" value="NOTED" /> <referenceRange > <observationRange> <text /> </ observationRange> </referenceRange> </observation> </ component> <component> <observation moodCode="EVN" classCode="OBS"> <templateId root="216.840.1.021704.03.15.22.4.2" /> <id nullFlavor="NA" /> <code codeSystem="local" code="WBC" displayName= "WHITE BLOOD CELL" /> <statusCode code="completed" /> < effectiveTime value="" /> <value unit="k/cumm" xsi:type="PQ " value="8.2" /> <referenceRange> <observationRange> <text>5.0-10.0</text> </observationRange> </ referenceRange> </observation> </component> <component> <observation moodCode="EVN" classCode="OBS"> <templateId root= "216.840.1.540357.10..4.2" /> <id nullFlavor="NA" /> < code codeSystem="local" code="HGBT" displayName="HEMOGLOBIN" /> < statusCode code="completed" /> <effectiveTime value="" /> <value unit="gm/dL" xsi:type="PQ" value="8.0" /> < interpretationCode codeSystem="local" code="*" /> <referenceRange> <observationRange> <text>12.0-16.0</text> </ observationRange> </referenceRange> </observation> </ component> <component> <observation moodCode="EVN" classCode="OBS"> <templateId root="07.12.840.1.748704.03.15.224.2" /> <id nullFlavor="NA" /> <code codeSystem="local" code="HCTT" displayName= "HEMATOCRIT" /> <statusCode code="completed" /> < effectiveTime value="" /> <value unit="%" xsi:type="PQ " value="27.6" /> <interpretationCode codeSystem="local" code="*" /> <referenceRange> <observationRange> <text>37.0- 47.0</text> </observationRange> </referenceRange> </ observation> </component> <component> <observation moodCode= "EVN" classCode="OBS"> <templateId root="16.840.1.739973...4.2 " /> <id nullFlavor="NA" /> <code codeSystem="local" code="PLT " displayName="PLATELET COUNT" /> <statusCode code="completed" /> <effectiveTime value="[id number]" /> <value unit="k/cumm" xsi: type="PQ" value="247" /> <referenceRange> <observationRange > <text>150-450</text> </observationRange> </ referenceRange> </observation> </component> </organizer> </entry > <entry> <organizer moodCode="EVN" classCode="BATTERY"> <templateId root="216.840.1.770897.10...4.1" /> <id nullFlavor="NA" /> <code codeSystem="local" code="PROLAC" displayName="PROLACTIN" /> <statusCode code="completed" /> <component> <observation moodCode="EVN" classCode="OBS"> <templateId root="216.840.1.576472.10...4.2" /> <id nullFlavor="NA" /> <code codeSystem="local" code="PROLAC" displayName="PROLACTIN" /> <statusCode code="completed" /> < effectiveTime value="[id number]" /> <value unit="ng/mL" xsi:type="PQ " value="87.6" /> <interpretationCode codeSystem="local" code="*" /> <referenceRange> <observationRange> <text>1.8- 29.2</text> </observationRange> </referenceRange> </ observation> </component> </organizer> </entry> <entry> <organizer moodCode="EVN" classCode="BATTERY"> <templateId root= "16.840.1.981125.10...4.1" /> <id nullFlavor="NA" /> <code codeSystem="local" code="iCHEM8" displayName="CHEM/HEM PROFILE-BEDSIDE" /> <statusCode code="completed" /> <component> <observation moodCode= "EVN" classCode="OBS"> <templateId root="216.840.1.976700.10..22.4.2 " /> <id nullFlavor="NA" /> <code codeSystem="local" code="K" displayName="POTASSIUM" /> <statusCode code="completed" /> < effectiveTime value="" /> <value unit="mmol/L" xsi:type="PQ " value="3.3" /> <interpretationCode codeSystem="local" code="*" /> <referenceRange> <observationRange> <text>3.5-5.3 </text> </observationRange> </referenceRange> </ observation> </component> <component> <observation moodCode= "EVN" classCode="OBS"> <templateId root="216.840.1.748319.03.15.22.4.2 " /> <id nullFlavor="NA" /> <code codeSystem="local" code= "CMETHOD" displayName="METHOD" /> <statusCode code="completed" /> <effectiveTime value="" /> <value unit="" xsi:type="PQ " value="Bedside" /> <referenceRange> <observationRange> <text /> </observationRange> </referenceRange> </observation> </component> <component> <observation moodCode="EVN" classCode="OBS"> <templateId root= "216.840.1.528389.22.4.2" /> <id nullFlavor="NA" /> < code codeSystem="local" code="GAP" displayName="ANION GAP" /> < statusCode code="completed" /> <effectiveTime value="" /> <value unit="mmol/L" xsi:type="PQ" value="17" /> < referenceRange> <observationRange> <text>10-20</text> </observationRange> </referenceRange> </observation> </component> <component> <observation moodCode="EVN" classCode= "OBS"> <templateId root="216.840.1.178250.03.15.22.4.2" /> < id nullFlavor="NA" /> <code codeSystem="local" code="HMETHOD" displayName="METHOD" /> <statusCode code="completed" /> < effectiveTime value="" /> <value unit="" xsi:type="PQ" value="Bedside" /> <referenceRange> <observationRange> <text /> </observationRange> </referenceRange> </observation> </component> <component> <observation moodCode="EVN" classCode="OBS"> <templateId root= "216.840.1.443125.03.15.22.4.2" /> <id nullFlavor="NA" /> < code codeSystem="local" code="GLU" displayName="GLUCOSE" /> < statusCode code="completed" /> <effectiveTime value="" /> <value unit="mg/dL" xsi:type="PQ" value="77" /> < referenceRange> <observationRange> <text>70-99</text> </observationRange> </referenceRange> </observation> </component> <component> <observation moodCode="EVN" classCode= "OBS"> <templateId root="07.12.840.1.143732.03.15.22.4.2" /> < id nullFlavor="NA" /> <code codeSystem="local" code="BUN" displayName= "BLOOD UREA NITROGEN" /> <statusCode code="completed" /> < effectiveTime value="" /> <value unit="mg/dL" xsi:type="PQ " value="7" /> <referenceRange> <observationRange> <text>7-20</text> </observationRange> </referenceRange > </observation> </component> <component> <observation moodCode="EVN" classCode="OBS"> <templateId root= "07.12.840.1.493737.10.20.22.4.2" /> <id nullFlavor="NA" /> < code codeSystem="local" code="CREAT" displayName="CREATININE" /> < statusCode code="completed" /> <effectiveTime value="" /> <value unit="mg/dL" xsi:type="PQ" value="0.7" /> < referenceRange> <observationRange> <text>0.6-1.0</text> </observationRange> </referenceRange> </observation > </component> <component> <observation moodCode="EVN" classCode="OBS"> <templateId root="07.12.840.1.617556...4.2" /> <id nullFlavor="NA" /> <code codeSystem="local" code="HGBT" displayName="HEMOGLOBIN" /> <statusCode code="completed" /> < effectiveTime value="" /> <value unit="gm/dL" xsi:type="PQ " value="9.2" /> <interpretationCode codeSystem="local" code="*" /> <referenceRange> <observationRange> <text>12.0- 16.0</text> </observationRange> </referenceRange> </ observation> </component> <component> <observation moodCode= "EVN" classCode="OBS"> <templateId root="07.12.840.1.863913.10..22.4.2 " /> <id nullFlavor="NA" /> <code codeSystem="local" code= "HCTT" displayName="HEMATOCRIT" /> <statusCode code="completed" /> <effectiveTime value="" /> <value unit="%" xsi: type="PQ" value="27.0" /> <interpretationCode codeSystem="local" code= "*" /> <referenceRange> <observationRange> < text>37.0-47.0</text> </observationRange> </referenceRange> </observation> </component> <component> <observation moodCode="EVN" classCode="OBS"> <templateId root= "216.840.1.374993.10..22.4.2" /> <id nullFlavor="NA" /> < code codeSystem="local" code="NA" displayName="SODIUM" /> <statusCode code="completed" /> <effectiveTime value="" /> < value unit="mmol/L" xsi:type="PQ" value="137" /> <referenceRange> <observationRange> <text>135-148</text> </ observationRange> </referenceRange> </observation> </ component> <component> <observation moodCode="EVN" classCode="OBS"> <templateId root="16.840.1.021771.10..22.4.2" /> <id nullFlavor="NA" /> <code codeSystem="local" code="CL" displayName= "CHLORIDE" /> <statusCode code="completed" /> <effectiveTime value="" /> <value unit="mmol/L" xsi:type="PQ" value="102" /> <referenceRange> <observationRange> <text>98 -110</text> </observationRange> </referenceRange> </ observation> </component> <component> <observation moodCode= "EVN" classCode="OBS"> <templateId root="07.12.840.1.808720.03.15.22.4.2 " /> <id nullFlavor="NA" /> <code codeSystem="local" code="CO2 " displayName="CARBON DIOXIDE" /> <statusCode code="completed" /> <effectiveTime value="" /> <value unit="mmol/L" xsi: type="PQ" value="23" /> <referenceRange> <observationRange> <text>21-32</text> </observationRange> </ referenceRange> </observation> </component> <component> <observation moodCode="EVN" classCode="OBS"> <templateId root= "840.1.611673.03.15.22.4.2" /> <id nullFlavor="NA" /> < code codeSystem="local" code="CAION" displayName="CALCIUM IONIZED" /> < statusCode code="completed" /> <effectiveTime value="" /> <value unit="mg/dL" xsi:type="PQ" value="4.5" /> < referenceRange> <observationRange> <text>4.5-5.3</text> </observationRange> </referenceRange> </observation > </component> </organizer> </entry> <entry> <organizer moodCode= "EVN" classCode="BATTERY"> <templateId root="840.1.393147.03.15.22.4.1 " /> <id nullFlavor="NA" /> <code codeSystem="local" code="PREGU" displayName="UR TEST" /> <statusCode code="completed" /> < component> <observation moodCode="EVN" classCode="OBS"> < templateId root="07.12.840.1.749513.03.15.22.4.2" /> <id nullFlavor="NA " /> <code codeSystem="local" code="PREGU" displayName="UR TEST" /> <statusCode code="completed" /> <effectiveTime value= "" /> <value unit="" xsi:type="PQ" value="NEGATIVE" /> <referenceRange> <observationRange> <text>NEGATIVE </text> </observationRange> </referenceRange> </ observation> </component> </organizer> </entry> <entry> <organizer moodCode="EVN" classCode="BATTERY"> <templateId root= "2.16.840.1.050115.10..22.4.1" /> <id nullFlavor="NA" /> <code codeSystem="local" code="DRUGAB" displayName="UR DRUGS OF ABUSE SCREEN" /> <statusCode code="completed" /> <component> <observation moodCode= "EVN" classCode="OBS"> <templateId root="2.16.840.1.430598.10...4.2 " /> <id nullFlavor="NA" /> <code codeSystem="local" code= "AMPHU" displayName="UR AMPHETAMINES SCREEN" /> <statusCode code= "completed" /> <effectiveTime value="" /> <value unit="" xsi:type="PQ" value="NEG (<1000 ng/mL)" /> <referenceRange > <observationRange> <text>NEGATIVE</text> </ observationRange> </referenceRange> </observation> </ component> <component> <observation moodCode="EVN" classCode="OBS"> <templateId root="2.16.840.1.113346.10...4.2" /> <id nullFlavor="NA" /> <code codeSystem="local" code="BARBU" displayName= "UR BARBITURATE SCREEN" /> <statusCode code="completed" /> < effectiveTime value="" /> <value unit="" xsi:type="PQ" value="NEG (< 200 ng/mL)" /> <referenceRange> < observationRange> <text>NEGATIVE</text> </ observationRange> </referenceRange> </observation> </ component> <component> <observation moodCode="EVN" classCode="OBS"> <templateId root="216.840.1.151717.10...4.2" /> <id nullFlavor="NA" /> <code codeSystem="local" code="DAUCOMMENT" displayName="DRUGS OF ABUSE SCREEN COMMENT" /> <statusCode code= "completed" /> <effectiveTime value="" /> <value unit="" xsi:type="PQ" value="" /> <referenceRange> < observationRange> <text /> </observationRange> </referenceRange> </observation> </component> <component> <observation moodCode="EVN" classCode="OBS"> <templateId root= "216.840.1.107628.10..4.2" /> <id nullFlavor="NA" /> < code codeSystem="local" code="OPIU" displayName="UR OPIATES SCREEN" /> <statusCode code="completed" /> <effectiveTime value="" /> <value unit="" xsi:type="PQ" value="POS (> 300 ng/mL)" /> <interpretationCode codeSystem="local" code="*" /> <referenceRange> <observationRange> <text>NEGATIVE</text> </ observationRange> </referenceRange> </observation> </ component> <component> <observation moodCode="EVN" classCode="OBS"> <templateId root="216.840.1.081599.10...4.2" /> <id nullFlavor="NA" /> <code codeSystem="local" code="PCPU" displayName=" UR PHENCYCLIDINE (PCP) SCREEN" /> <statusCode code="completed" /> <effectiveTime value="" /> <value unit="" xsi:type="PQ " value="NEG (< 25 ng/mL)" /> <referenceRange> < observationRange> <text>NEGATIVE</text> </ observationRange> </referenceRange> </observation> </ component> <component> <observation moodCode="EVN" classCode="OBS"> <templateId root="2.16.840.1.948723.10..22.4.2" /> <id nullFlavor="NA" /> <code codeSystem="local" code="THCU" displayName=" UR CANNABINOIDS (THC) SCREEN" /> <statusCode code="completed" /> <effectiveTime value="" /> <value unit="" xsi:type="PQ " value="NEG (< 50 ng/mL)" /> <referenceRange> < observationRange> <text>NEGATIVE</text> </ observationRange> </referenceRange> </observation> </ component> <component> <observation moodCode="EVN" classCode="OBS"> <templateId root="2.16.840.1.479007.10..22.4.2" /> <id nullFlavor="NA" /> <code codeSystem="local" code="COCAU" displayName= "UR COCAINE METABOLITE SCREEN" /> <statusCode code="completed" /> <effectiveTime value="" /> <value unit="" xsi:type="PQ " value="NEG (< 300 ng/mL)" /> <referenceRange> < observationRange> <text>NEGATIVE</text> </ observationRange> </referenceRange> </observation> </ component> <component> <observation moodCode="EVN" classCode="OBS"> <templateId root="216.840.1.737227.10..22.4.2" /> <id nullFlavor="NA" /> <code codeSystem="local" code="METHU" displayName= "UR METHADONE SCREEN" /> <statusCode code="completed" /> < effectiveTime value="" /> <value unit="" xsi:type="PQ" value="NEG (< 300 ng/mL)" /> <referenceRange> < observationRange> <text>NEGATIVE</text> </ observationRange> </referenceRange> </observation> </ component> <component> <observation moodCode="EVN" classCode="OBS"> <templateId root="216.840.1.531736.10...4.2" /> <id nullFlavor="NA" /> <code codeSystem="local" code="BENZU" displayName= "UR BENZODIAZEPINE SCREEN" /> <statusCode code="completed" /> <effectiveTime value="" /> <value unit="" xsi:type="PQ" value="POS (> 200 ng/mL)" /> <interpretationCode codeSystem="local " code="*" /> <referenceRange> <observationRange> <text>NEGATIVE</text> </observationRange> </ referenceRange> </observation> </component> </organizer> </entry > <entry> <organizer moodCode="EVN" classCode="BATTERY"> <templateId root="2.16.840.1.152238.10..22.4.1" /> <id nullFlavor="NA" /> <code codeSystem="local" code="PREGU" displayName="UR TEST" /> < statusCode code="completed" /> <component> <observation moodCode= "EVN" classCode="OBS"> <templateId root="16.840.1.517757...4.2 " /> <id nullFlavor="NA" /> <code codeSystem="local" code= "PREGU" displayName="UR TEST" /> <statusCode code="completed " /> <effectiveTime value="" /> <value unit="" xsi :type="PQ" value="NEGATIVE" /> <referenceRange> < observationRange> <text>NEGATIVE</text> </ observationRange> </referenceRange> </observation> </ component> </organizer> </entry> <entry> <organizer moodCode="EVN" classCode="BATTERY"> <templateId root="07.12.840.1.296286.03.15.22.4.1" /> <id nullFlavor="NA" /> <code codeSystem="local" code="UAMICRO" displayName="UA MICROSCOPIC" /> <statusCode code="completed" /> < component> <observation moodCode="EVN" classCode="OBS"> < templateId root="07.12.840.1.669618...4.2" /> <id nullFlavor="NA " /> <code codeSystem="local" code="BACU" displayName="UA BACTERIA" /> <statusCode code="completed" /> <effectiveTime value= "" /> <value unit="" xsi:type="PQ" value="2+" /> < interpretationCode codeSystem="local" code="*" /> <referenceRange> <observationRange> <text>NEGATIVE</text> </ observationRange> </referenceRange> </observation> </ component> <component> <observation moodCode="EVN" classCode="OBS"> <templateId root="07.12.840.1.160899.03.15.22.4.2" /> <id nullFlavor="NA" /> <code codeSystem="local" code="EPIU" displayName=" UA EPITHELIAL CELLS" /> <statusCode code="completed" /> < effectiveTime value="" /> <value unit="epi/hpf" xsi:type= "PQ" value="1+" /> <referenceRange> <observationRange> <text>0 - 1+</text> </observationRange> </ referenceRange> </observation> </component> <component> <observation moodCode="EVN" classCode="OBS"> <templateId root= "2.16.840.1.401519.10...4.2" /> <id nullFlavor="NA" /> < code codeSystem="local" code="RBCU" displayName="UA RBC" /> < statusCode code="completed" /> <effectiveTime value="" /> <value unit="rbc/hpf" xsi:type="PQ" value="20-50" /> < interpretationCode codeSystem="local" code="*" /> <referenceRange> <observationRange> <text>0 - 3</text> </ observationRange> </referenceRange> </observation> </ component> <component> <observation moodCode="EVN" classCode="OBS"> <templateId root="2.16.840.1.749068...4.2" /> <id nullFlavor="NA" /> <code codeSystem="local" code="UAVOL" displayName= "UA VOLUME FOR EXAM" /> <statusCode code="completed" /> < effectiveTime value="" /> <value unit="mL" xsi:type="PQ" value="12.0" /> <referenceRange> <observationRange> <text>(12mL STD)</text> </observationRange> </ referenceRange> </observation> </component> <component> <observation moodCode="EVN" classCode="OBS"> <templateId root= "16.840.1.780204.10..22.4.2" /> <id nullFlavor="NA" /> < code codeSystem="local" code="WBCU" displayName="UA WBC" /> < statusCode code="completed" /> <effectiveTime value="044718574430" /> <value unit="wbc/hpf" xsi:type="PQ" value="2-5" /> < referenceRange> <observationRange> <text>0 - 5</text> </observationRange> </referenceRange> </observation> </component> </organizer> </entry> <entry> <organizer moodCode="EVN " classCode="BATTERY"> <templateId root="16.840.1.250192.10..22.4.1" / > <id nullFlavor="NA" /> <code codeSystem="local" code="CBCD" displayName="CBC W/DIFF" /> <statusCode code="completed" /> <component > <observation moodCode="EVN" classCode="OBS"> <templateId root= "16.840.1.253988.10..22.4.2" /> <id nullFlavor="NA" /> < code codeSystem="local" code="BA#" displayName="BASOPHIL #" /> < statusCode code="completed" /> <effectiveTime value="713905376460" /> <value unit="k/cumm" xsi:type="PQ" value="0.1" /> < referenceRange> <observationRange> <text>0.0-0.2</text> </observationRange> </referenceRange> </observation > </component> <component> <observation moodCode="EVN" classCode="OBS"> <templateId root="2.16.840.1.773996.10.22.4.2" /> <id nullFlavor="NA" /> <code codeSystem="local" code="BA% " displayName="BASOPHIL %" /> <statusCode code="completed" /> <effectiveTime value="" /> <value unit="%" xsi: type="PQ" value="1" /> <referenceRange> <observationRange> <text>0-1</text> </observationRange> </ referenceRange> </observation> </component> <component> <observation moodCode="EVN" classCode="OBS"> <templateId root= "16.840.1.906226.10..4.2" /> <id nullFlavor="NA" /> < code codeSystem="local" code="EO#" displayName="EOSINOPHIL #" /> < statusCode code="completed" /> <effectiveTime value="" /> <value unit="k/cumm" xsi:type="PQ" value="0.1" /> < referenceRange> <observationRange> <text>0.1-0.5</text> </observationRange> </referenceRange> </observation > </component> <component> <observation moodCode="EVN" classCode="OBS"> <templateId root="07.12.840.1.173233.10..4.2" /> <id nullFlavor="NA" /> <code codeSystem="local" code="EO% " displayName="EOSINOPHIL %" /> <statusCode code="completed" /> <effectiveTime value="" /> <value unit="%" xsi: type="PQ" value="2" /> <referenceRange> <observationRange> <text>2-4</text> </observationRange> </ referenceRange> </observation> </component> <component> <observation moodCode="EVN" classCode="OBS"> <templateId root= "16.840.1.863772.10..4.2" /> <id nullFlavor="NA" /> < code codeSystem="local" code="GR#" displayName="GRANULOCYTE #" /> < statusCode code="completed" /> <effectiveTime value="996127462471" /> <value unit="k/cumm" xsi:type="PQ" value="2.3" /> < referenceRange> <observationRange> <text>2.0-9.0</text> </observationRange> </referenceRange> </observation > </component> <component> <observation moodCode="EVN" classCode="OBS"> <templateId root="07.12.840.1.173018.03.15.224.2" /> <id nullFlavor="NA" /> <code codeSystem="local" code="GR% " displayName="GRANULOCYTE %" /> <statusCode code="completed" /> <effectiveTime value="922380790409" /> <value unit="%" xsi: type="PQ" value="46" /> <interpretationCode codeSystem="local" code="* " /> <referenceRange> <observationRange> <text> 50-75</text> </observationRange> </referenceRange> </ observation> </component> <component> <observation moodCode= "EVN" classCode="OBS"> <templateId root="07.12.840.1.993966.03.15.22.4.2 " /> <id nullFlavor="NA" /> <code codeSystem="local" code="LY# " displayName="LYMPHOCYTE #" /> <statusCode code="completed" /> <effectiveTime value="869321094131" /> <value unit="k/cumm" xsi:type ="PQ" value="2.3" /> <referenceRange> <observationRange> <text>1.0-4.0</text> </observationRange> </ referenceRange> </observation> </component> <component> <observation moodCode="EVN" classCode="OBS"> <templateId root= "16.840.1.382917.10.4.2" /> <id nullFlavor="NA" /> < code codeSystem="local" code="LY%" displayName="LYMPHOCYTE %" /> <statusCode code="completed" /> <effectiveTime value="051637703703" /> <value unit="%" xsi:type="PQ" value="46" /> < interpretationCode codeSystem="local" code="*" /> <referenceRange> <observationRange> <text>20-30</text> </ observationRange> </referenceRange> </observation> </ component> <component> <observation moodCode="EVN" classCode="OBS"> <templateId root="16.840.1.801823.10...4.2" /> <id nullFlavor="NA" /> <code codeSystem="local" code="MCH" displayName= "MEAN CELL HGB" /> <statusCode code="completed" /> < effectiveTime value="707833109411" /> <value unit="pg" xsi:type="PQ" value="19.7" /> <interpretationCode codeSystem="local" code="*" /> <referenceRange> <observationRange> <text>27.0- 33.0</text> </observationRange> </referenceRange> </ observation> </component> <component> <observation moodCode= "EVN" classCode="OBS"> <templateId root="07.12.840.1.525523.10.22.4.2 " /> <id nullFlavor="NA" /> <code codeSystem="local" code= "MCHC" displayName="MEAN CELL HGB CONCENTRATION" /> <statusCode code= "completed" /> <effectiveTime value="" /> <value unit="g/dL" xsi:type="PQ" value="28.0" /> <interpretationCode codeSystem="local" code="*" /> <referenceRange> < observationRange> <text>32.0-37.0</text> </ observationRange> </referenceRange> </observation> </ component> <component> <observation moodCode="EVN" classCode="OBS"> <templateId root="840.1.519495.03.15.22.4.2" /> <id nullFlavor="NA" /> <code codeSystem="local" code="MCV" displayName= "MEAN CELL VOLUME" /> <statusCode code="completed" /> < effectiveTime value="" /> <value unit="fl" xsi:type="PQ" value="70.5" /> <interpretationCode codeSystem="local" code="*" /> <referenceRange> <observationRange> <text>80.0- 100.0</text> </observationRange> </referenceRange> </ observation> </component> <component> <observation moodCode= "EVN" classCode="OBS"> <templateId root="840.1.329087.22.4.2 " /> <id nullFlavor="NA" /> <code codeSystem="local" code="MO# " displayName="MONOCYTE #" /> <statusCode code="completed" /> <effectiveTime value="" /> <value unit="k/cumm" xsi:type= "PQ" value="0.3" /> <referenceRange> <observationRange> <text>0.1-1.0</text> </observationRange> </ referenceRange> </observation> </component> <component> <observation moodCode="EVN" classCode="OBS"> <templateId root= "216.840.1.878600...4.2" /> <id nullFlavor="NA" /> < code codeSystem="local" code="MO%" displayName="MONOCYTE %" /> <statusCode code="completed" /> <effectiveTime value="925972792811" /> <value unit="%" xsi:type="PQ" value="5" /> < referenceRange> <observationRange> <text>4-6</text> </observationRange> </referenceRange> </observation> </component> <component> <observation moodCode="EVN" classCode= "OBS"> <templateId root="16.840.1.346904.03.15.22.4.2" /> < id nullFlavor="NA" /> <code codeSystem="local" code="OVAL" displayName= "OVALOCYTES" /> <statusCode code="completed" /> < effectiveTime value="997212091699" /> <value unit="" xsi:type="PQ" value="NOTED" /> <referenceRange> <observationRange> <text /> </observationRange> </referenceRange> </observation> </component> <component> <observation moodCode ="EVN" classCode="OBS"> <templateId root= "16.840.1.969852...4.2" /> <id nullFlavor="NA" /> < code codeSystem="local" code="RBC" displayName="RED BLOOD CELL" /> < statusCode code="completed" /> <effectiveTime value="428919021904" /> <value unit="m/cumm" xsi:type="PQ" value="4.31" /> < referenceRange> <observationRange> <text>4.00-6.00</text > </observationRange> </referenceRange> </observation > </component> <component> <observation moodCode="EVN" classCode="OBS"> <templateId root="07.12.840.1.086333.10.20.22.4.2" /> <id nullFlavor="NA" /> <code codeSystem="local" code="RDW" displayName="RED CELL DISTRIBUTION WIDTH" /> <statusCode code= "completed" /> <effectiveTime value="682207354641" /> <value unit="%" xsi:type="PQ" value="17.6" /> <interpretationCode codeSystem="local" code="*" /> <referenceRange> < observationRange> <text>11.0-15.6</text> </ observationRange> </referenceRange> </observation> </ component> <component> <observation moodCode="EVN" classCode="OBS"> <templateId root="07.12.840.1.744562.10.20.22.4.2" /> <id nullFlavor="NA" /> <code codeSystem="local" code="DIOGENES" displayName= "SCHISTOCYTES" /> <statusCode code="completed" /> < effectiveTime value="309702954135" /> <value unit="" xsi:type="PQ" value="NOTED" /> <referenceRange> <observationRange> <text /> </observationRange> </referenceRange> </observation> </component> <component> <observation moodCode ="EVN" classCode="OBS"> <templateId root= "840.1.002693.10.20.22.4.2" /> <id nullFlavor="NA" /> < code codeSystem="local" code="WBC" displayName="WHITE BLOOD CELL" /> < statusCode code="completed" /> <effectiveTime value="004413597520" /> <value unit="k/cumm" xsi:type="PQ" value="5.0" /> < referenceRange> <observationRange> <text>5.0-10.0</text > </observationRange> </referenceRange> </observation > </component> <component> <observation moodCode="EVN" classCode="OBS"> <templateId root="840.1.554007.1022.4.2" /> <id nullFlavor="NA" /> <code codeSystem="local" code="HGBT" displayName="HEMOGLOBIN" /> <statusCode code="completed" /> < effectiveTime value="882653882072" /> <value unit="gm/dL" xsi:type="PQ " value="8.5" /> <interpretationCode codeSystem="local" code="*" /> <referenceRange> <observationRange> <text>12.0- 16.0</text> </observationRange> </referenceRange> </ observation> </component> <component> <observation moodCode= "EVN" classCode="OBS"> <templateId root="07.12.840.1.389014.10.2022.4.2 " /> <id nullFlavor="NA" /> <code codeSystem="local" code= "HCTT" displayName="HEMATOCRIT" /> <statusCode code="completed" /> <effectiveTime value="502088073196" /> <value unit="%" xsi: type="PQ" value="30.4" /> <interpretationCode codeSystem="local" code= "*" /> <referenceRange> <observationRange> < text>37.0-47.0</text> </observationRange> </referenceRange> </observation> </component> <component> <observation moodCode="EVN" classCode="OBS"> <templateId root= "07.12.840.1.029523.10.20.22.4.2" /> <id nullFlavor="NA" /> < code codeSystem="local" code="PLT" displayName="PLATELET COUNT" /> < statusCode code="completed" /> <effectiveTime value="737681969494" /> <value unit="k/cumm" xsi:type="PQ" value="348" /> < referenceRange> <observationRange> <text>150-400</text> </observationRange> </referenceRange> </observation > </component> </organizer> </entry> <entry> <organizer moodCode= "EVN" classCode="BATTERY"> <templateId root="07.12.840.1.699601.10..22.4.1 " /> <id nullFlavor="NA" /> <code codeSystem="local" code="iCHEM8" displayName="CHEM/HEM PROFILE-BEDSIDE" /> <statusCode code="completed" /> <component> <observation moodCode="EVN" classCode="OBS"> < templateId root="07.12.840.1.358162.10.20.22.4.2" /> <id nullFlavor="NA " /> <code codeSystem="local" code="K" displayName="POTASSIUM" /> <statusCode code="completed" /> <effectiveTime value="596082158431 " /> <value unit="mmol/L" xsi:type="PQ" value="4.0" /> < referenceRange> <observationRange> <text>3.5-5.3</text> </observationRange> </referenceRange> </observation > </component> <component> <observation moodCode="EVN" classCode="OBS"> <templateId root="216.840.1.279848.03.15.22.4.2" /> <id nullFlavor="NA" /> <code codeSystem="local" code="CMETHOD " displayName="METHOD" /> <statusCode code="completed" /> < effectiveTime value="" /> <value unit="" xsi:type="PQ" value="Bedside" /> <referenceRange> <observationRange> <text /> </observationRange> </referenceRange> </observation> </component> <component> <observation moodCode="EVN" classCode="OBS"> <templateId root= "216.840.1.010110.03.15.22.4.2" /> <id nullFlavor="NA" /> < code codeSystem="local" code="GAP" displayName="ANION GAP" /> < statusCode code="completed" /> <effectiveTime value="" /> <value unit="mmol/L" xsi:type="PQ" value="13" /> < referenceRange> <observationRange> <text>10-20</text> </observationRange> </referenceRange> </observation> </component> <component> <observation moodCode="EVN" classCode= "OBS"> <templateId root="16.840.1.569646.03.15.22.4.2" /> < id nullFlavor="NA" /> <code codeSystem="local" code="HMETHOD" displayName="METHOD" /> <statusCode code="completed" /> < effectiveTime value="" /> <value unit="" xsi:type="PQ" value="Bedside" /> <referenceRange> <observationRange> <text /> </observationRange> </referenceRange> </observation> </component> <component> <observation moodCode="EVN" classCode="OBS"> <templateId root= "216.840.1.414582.10..22.4.2" /> <id nullFlavor="NA" /> < code codeSystem="local" code="GLU" displayName="GLUCOSE" /> < statusCode code="completed" /> <effectiveTime value="" /> <value unit="mg/dL" xsi:type="PQ" value="79" /> < referenceRange> <observationRange> <text>70-99</text> </observationRange> </referenceRange> </observation> </component> <component> <observation moodCode="EVN" classCode= "OBS"> <templateId root="16.840.1.092762.03.15.22.4.2" /> < id nullFlavor="NA" /> <code codeSystem="local" code="BUN" displayName= "BLOOD UREA NITROGEN" /> <statusCode code="completed" /> < effectiveTime value="" /> <value unit="mg/dL" xsi:type="PQ " value="7" /> <referenceRange> <observationRange> <text>7-20</text> </observationRange> </referenceRange > </observation> </component> <component> <observation moodCode="EVN" classCode="OBS"> <templateId root= "16.840.1.289960..22.4.2" /> <id nullFlavor="NA" /> < code codeSystem="local" code="CREAT" displayName="CREATININE" /> < statusCode code="completed" /> <effectiveTime value="" /> <value unit="mg/dL" xsi:type="PQ" value="0.7" /> < referenceRange> <observationRange> <text>0.6-1.0</text> </observationRange> </referenceRange> </observation > </component> <component> <observation moodCode="EVN" classCode="OBS"> <templateId root="216.840.1.455693..22.4.2" /> <id nullFlavor="NA" /> <code codeSystem="local" code="HGBT" displayName="HEMOGLOBIN" /> <statusCode code="completed" /> < effectiveTime value="242788867596" /> <value unit="gm/dL" xsi:type="PQ " value="10.2" /> <interpretationCode codeSystem="local" code="*" /> <referenceRange> <observationRange> <text>12.0- 16.0</text> </observationRange> </referenceRange> </ observation> </component> <component> <observation moodCode= "EVN" classCode="OBS"> <templateId root="07.12.840.1.736074.03.15.22.4.2 " /> <id nullFlavor="NA" /> <code codeSystem="local" code= "HCTT" displayName="HEMATOCRIT" /> <statusCode code="completed" /> <effectiveTime value="938947493086" /> <value unit="%" xsi: type="PQ" value="30.0" /> <interpretationCode codeSystem="local" code= "*" /> <referenceRange> <observationRange> < text>37.0-47.0</text> </observationRange> </referenceRange> </observation> </component> <component> <observation moodCode="EVN" classCode="OBS"> <templateId root= "216.840.1.800924.10.2022.4.2" /> <id nullFlavor="NA" /> < code codeSystem="local" code="NA" displayName="SODIUM" /> <statusCode code="completed" /> <effectiveTime value="973912103149" /> < value unit="mmol/L" xsi:type="PQ" value="142" /> <referenceRange> <observationRange> <text>135-148</text> </ observationRange> </referenceRange> </observation> </ component> <component> <observation moodCode="EVN" classCode="OBS"> <templateId root="216.840.1.621629.10...4.2" /> <id nullFlavor="NA" /> <code codeSystem="local" code="CL" displayName= "CHLORIDE" /> <statusCode code="completed" /> <effectiveTime value="" /> <value unit="mmol/L" xsi:type="PQ" value="107" /> <referenceRange> <observationRange> <text>98 -110</text> </observationRange> </referenceRange> </ observation> </component> <component> <observation moodCode= "EVN" classCode="OBS"> <templateId root="216.840.1.329030.10..22.4.2 " /> <id nullFlavor="NA" /> <code codeSystem="local" code="CO2 " displayName="CARBON DIOXIDE" /> <statusCode code="completed" /> <effectiveTime value="" /> <value unit="mmol/L" xsi: type="PQ" value="26" /> <referenceRange> <observationRange> <text>21-32</text> </observationRange> </ referenceRange> </observation> </component> <component> <observation moodCode="EVN" classCode="OBS"> <templateId root= "07.12.840.1.572119.10..4.2" /> <id nullFlavor="NA" /> < code codeSystem="local" code="CAION" displayName="CALCIUM IONIZED" /> < statusCode code="completed" /> <effectiveTime value="327298911303" /> <value unit="mg/dL" xsi:type="PQ" value="4.9" /> < referenceRange> <observationRange> <text>4.5-5.3</text> </observationRange> </referenceRange> </observation > </component> </organizer> </entry> <entry> <organizer moodCode= "EVN" classCode="BATTERY"> <templateId root="07.12.840.1.192334.10...4.1 " /> <id nullFlavor="NA" /> <code codeSystem="local" code="PREGU" displayName="UR TEST" /> <statusCode code="completed" /> < component> <observation moodCode="EVN" classCode="OBS"> < templateId root="07.12.840.1.433801.10..22.4.2" /> <id nullFlavor="NA " /> <code codeSystem="local" code="PREGU" displayName="UR TEST" /> <statusCode code="completed" /> <effectiveTime value= "479233782610" /> <value unit="" xsi:type="PQ" value="NEGATIVE" /> <referenceRange> <observationRange> <text>NEGATIVE </text> </observationRange> </referenceRange> </ observation> </component> </organizer> </entry> <entry> <organizer moodCode="EVN" classCode="BATTERY"> <templateId root= "07.12.840.1.717995.22.4.1" /> <id nullFlavor="NA" /> <code codeSystem="local" code="UA" displayName="URINALYSIS, ROUTINE" /> < statusCode code="completed" /> <component> <observation moodCode= "EVN" classCode="OBS"> <templateId root="16.840.1.808052.10.4.2 " /> <id nullFlavor="NA" /> <code codeSystem="local" code= "LEUESU" displayName="UA LEUKOCYTE ESTERASE DIPSTICK" /> <statusCode code="completed" /> <effectiveTime value="220264779563" /> < value unit="" xsi:type="PQ" value="TRACE" /> <interpretationCode codeSystem="local" code="*" /> <referenceRange> < observationRange> <text>NEGATIVE</text> </ observationRange> </referenceRange> </observation> </ component> <component> <observation moodCode="EVN" classCode="OBS"> <templateId root="840.1.412103.03.15.224.2" /> <id nullFlavor="NA" /> <code codeSystem="local" code="NITRIU" displayName= "UA NITRITE DIPSTICK" /> <statusCode code="completed" /> < effectiveTime value="027191794655" /> <value unit="" xsi:type="PQ" value="NEGATIVE" /> <referenceRange> <observationRange> <text>NEGATIVE</text> </observationRange> </ referenceRange> </observation> </component> <component> <observation moodCode="EVN" classCode="OBS"> <templateId root= "07.12.840.1.020722.03.15.22.4.2" /> <id nullFlavor="NA" /> < code codeSystem="local" code="PROTEIU" displayName="UA PROTEIN DIPSTICK" /> <statusCode code="completed" /> <effectiveTime value= "025443265568" /> <value unit="" xsi:type="PQ" value="TRACE" /> <interpretationCode codeSystem="local" code="*" /> <referenceRange> <observationRange> <text>NEGATIVE</text> </ observationRange> </referenceRange> </observation> </ component> <component> <observation moodCode="EVN" classCode="OBS"> <templateId root="07.12.840.1.878572.10...4.2" /> <id nullFlavor="NA" /> <code codeSystem="local" code="DGLUU" displayName= "UA GLUCOSE DIPSTICK" /> <statusCode code="completed" /> < effectiveTime value="787747835215" /> <value unit="" xsi:type="PQ" value="NEGATIVE" /> <referenceRange> <observationRange> <text>NEGATIVE</text> </observationRange> </ referenceRange> </observation> </component> <component> <observation moodCode="EVN" classCode="OBS"> <templateId root= "16.840.1.411044...22.4.2" /> <id nullFlavor="NA" /> < code codeSystem="local" code="KETONU" displayName="UA KETONE DIPSTICK" /> <statusCode code="completed" /> <effectiveTime value="969689496089 " /> <value unit="" xsi:type="PQ" value="NEGATIVE" /> < referenceRange> <observationRange> <text>NEGATIVE</text > </observationRange> </referenceRange> </observation > </component> <component> <observation moodCode="EVN" classCode="OBS"> <templateId root="07.12.840.1.192619.03.15.22.4.2" /> <id nullFlavor="NA" /> <code codeSystem="local" code="UROBILU " displayName="UA UROBILINOGEN DIPSTICK" /> <statusCode code="completed " /> <effectiveTime value="703301370834" /> <value unit="" xsi :type="PQ" value="NORMAL" /> <referenceRange> < observationRange> <text>NORMAL</text> </observationRange > </referenceRange> </observation> </component> < component> <observation moodCode="EVN" classCode="OBS"> < templateId root="216.840.1.961556.03.15.22.4.2" /> <id nullFlavor="NA " /> <code codeSystem="local" code="BILU" displayName="UA BILIRUBIN DIPSTICK" /> <statusCode code="completed" /> <effectiveTime value="416360921383" /> <value unit="" xsi:type="PQ" value="POSITIVE" / > <interpretationCode codeSystem="local" code="*" /> < referenceRange> <observationRange> <text>NEGATIVE</text > </observationRange> </referenceRange> </observation > </component> <component> <observation moodCode="EVN" classCode="OBS"> <templateId root="216.840.1.840281.10..4.2" /> <id nullFlavor="NA" /> <code codeSystem="local" code="LON" displayName="UA BLOOD DIPSTICK" /> <statusCode code="completed" /> <effectiveTime value="723264669339" /> <value unit="" xsi:type= "PQ" value="2+" /> <interpretationCode codeSystem="local" code="*" /> <referenceRange> <observationRange> <text> NEGATIVE</text> </observationRange> </referenceRange> </observation> </component> <component> <observation moodCode ="EVN" classCode="OBS"> <templateId root= "2.16.840.1.018202.10.4.2" /> <id nullFlavor="NA" /> < code codeSystem="local" code="SPGRU" displayName="UA SPECIFIC GRAVITY" /> <statusCode code="completed" /> <effectiveTime value="922846707655 " /> <value unit="" xsi:type="PQ" value="1.020" /> < referenceRange> <observationRange> <text>1.015-1.025</ text> </observationRange> </referenceRange> </ observation> </component> <component> <observation moodCode= "EVN" classCode="OBS"> <templateId root="216.840.1.296158.03.15.22.4.2 " /> <id nullFlavor="NA" /> <code codeSystem="local" code="WILLOW " displayName="UR PH" /> <statusCode code="completed" /> < effectiveTime value="814906062850" /> <value unit="" xsi:type="PQ" value="7.0" /> <referenceRange> <observationRange> <text>5.0-7.0</text> </observationRange> </ referenceRange> </observation> </component> </organizer> </entry > <entry> <organizer moodCode="EVN" classCode="BATTERY"> <templateId root="2.16.840.1.502565.10..4.1" /> <id nullFlavor="NA" /> <code codeSystem="local" code="UAMICRO" displayName="UA MICROSCOPIC" /> < statusCode code="completed" /> <component> <observation moodCode= "EVN" classCode="OBS"> <templateId root="16.840.1.984109.10..22.4.2 " /> <id nullFlavor="NA" /> <code codeSystem="local" code= "BACU" displayName="UA BACTERIA" /> <statusCode code="completed" /> <effectiveTime value="824514848489" /> <value unit="" xsi:type= "PQ" value="1+" /> <interpretationCode codeSystem="local" code="*" /> <referenceRange> <observationRange> <text> NEGATIVE</text> </observationRange> </referenceRange> </observation> </component> <component> <observation moodCode ="EVN" classCode="OBS"> <templateId root= "07.12.840.1.847653...4.2" /> <id nullFlavor="NA" /> < code codeSystem="local" code="EPIU" displayName="UA EPITHELIAL CELLS" /> <statusCode code="completed" /> <effectiveTime value="335150961058" /> <value unit="epi/hpf" xsi:type="PQ" value="4+" /> < interpretationCode codeSystem="local" code="*" /> <referenceRange> <observationRange> <text>0 - 1+</text> </ observationRange> </referenceRange> </observation> </ component> <component> <observation moodCode="EVN" classCode="OBS"> <templateId root="07.12.840.1.032638.10..4.2" /> <id nullFlavor="NA" /> <code codeSystem="local" code="RBCU" displayName=" UA RBC" /> <statusCode code="completed" /> <effectiveTime value="976926997028" /> <value unit="rbc/hpf" xsi:type="PQ" value="> 100" /> <interpretationCode codeSystem="local" code="*" /> < referenceRange> <observationRange> <text>0 - 3</text> </observationRange> </referenceRange> </observation> </component> <component> <observation moodCode="EVN" classCode= "OBS"> <templateId root="216.840.1.174082.10..22.4.2" /> < id nullFlavor="NA" /> <code codeSystem="local" code="UAVOL" displayName ="UA VOLUME FOR EXAM" /> <statusCode code="completed" /> < effectiveTime value="478439711699" /> <value unit="mL" xsi:type="PQ" value="12.0" /> <referenceRange> <observationRange> <text>(12mL STD)</text> </observationRange> </ referenceRange> </observation> </component> <component> <observation moodCode="EVN" classCode="OBS"> <templateId root= "216.840.1.005425.10...4.2" /> <id nullFlavor="NA" /> < code codeSystem="local" code="WBCU" displayName="UA WBC" /> < statusCode code="completed" /> <effectiveTime value="394007097859" /> <value unit="wbc/hpf" xsi:type="PQ" value="2-5" /> < referenceRange> <observationRange> <text>0 - 5</text> </observationRange> </referenceRange> </observation> </component> </organizer> </entry> <entry> <organizer moodCode="EVN " classCode="BATTERY"> <templateId root="2.16.840.1.853652.10..22.4.1" / > <id nullFlavor="NA" /> <code codeSystem="local" code="CBCD" displayName="CBC W/DIFF" /> <statusCode code="completed" /> <component > <observation moodCode="EVN" classCode="OBS"> <templateId root= "16.840.1.175913.10..4.2" /> <id nullFlavor="NA" /> < code codeSystem="local" code="CBCCOM" displayName="COMMENT" /> < statusCode code="completed" /> <effectiveTime value="" /> <value unit="" xsi:type="PQ" value="REVIEWED" /> < referenceRange> <observationRange> <text /> < /observationRange> </referenceRange> </observation> </ component> <component> <observation moodCode="EVN" classCode="OBS"> <templateId root="840.1.451081.03.15.224.2" /> <id nullFlavor="NA" /> <code codeSystem="local" code="EO#" displayName= "EOSINOPHIL #" /> <statusCode code="completed" /> < effectiveTime value="" /> <value unit="k/cumm" xsi:type="PQ " value="0.1" /> <referenceRange> <observationRange> <text>0.1-0.5</text> </observationRange> </ referenceRange> </observation> </component> <component> <observation moodCode="EVN" classCode="OBS"> <templateId root= "840.1.681804.03.15.22.4.2" /> <id nullFlavor="NA" /> < code codeSystem="local" code="EO%" displayName="EOSINOPHIL %" /> <statusCode code="completed" /> <effectiveTime value="" /> <value unit="%" xsi:type="PQ" value="2" /> < referenceRange> <observationRange> <text>2-4</text> </observationRange> </referenceRange> </observation> </component> <component> <observation moodCode="EVN" classCode= "OBS"> <templateId root="216.840.1.604872.10..4.2" /> < id nullFlavor="NA" /> <code codeSystem="local" code="GR#" displayName= "GRANULOCYTE #" /> <statusCode code="completed" /> < effectiveTime value="" /> <value unit="k/cumm" xsi:type="PQ " value="2.9" /> <referenceRange> <observationRange> <text>2.0-9.0</text> </observationRange> </ referenceRange> </observation> </component> <component> <observation moodCode="EVN" classCode="OBS"> <templateId root= "216.840.1.871750...4.2" /> <id nullFlavor="NA" /> < code codeSystem="local" code="GR%" displayName="GRANULOCYTE %" /> <statusCode code="completed" /> <effectiveTime value="639581063893 " /> <value unit="%" xsi:type="PQ" value="44" /> < interpretationCode codeSystem="local" code="*" /> <referenceRange> <observationRange> <text>50-75</text> </ observationRange> </referenceRange> </observation> </ component> <component> <observation moodCode="EVN" classCode="OBS"> <templateId root="216.840.1.514683...4.2" /> <id nullFlavor="NA" /> <code codeSystem="local" code="LY#" displayName= "LYMPHOCYTE #" /> <statusCode code="completed" /> < effectiveTime value="" /> <value unit="k/cumm" xsi:type="PQ " value="3.1" /> <referenceRange> <observationRange> <text>1.0-4.0</text> </observationRange> </ referenceRange> </observation> </component> <component> <observation moodCode="EVN" classCode="OBS"> <templateId root= "216.840.1.110092.104.2" /> <id nullFlavor="NA" /> < code codeSystem="local" code="LY%" displayName="LYMPHOCYTE %" /> <statusCode code="completed" /> <effectiveTime value="" /> <value unit="%" xsi:type="PQ" value="47" /> < interpretationCode codeSystem="local" code="*" /> <referenceRange> <observationRange> <text>20-30</text> </ observationRange> </referenceRange> </observation> </ component> <component> <observation moodCode="EVN" classCode="OBS"> <templateId root="216.840.1.596008.10.4.2" /> <id nullFlavor="NA" /> <code codeSystem="local" code="MCH" displayName= "MEAN CELL HGB" /> <statusCode code="completed" /> < effectiveTime value="" /> <value unit="pg" xsi:type="PQ" value="20.2" /> <interpretationCode codeSystem="local" code="*" /> <referenceRange> <observationRange> <text>27.0- 33.0</text> </observationRange> </referenceRange> </ observation> </component> <component> <observation moodCode= "EVN" classCode="OBS"> <templateId root="840.1.585570.10.2022.4.2 " /> <id nullFlavor="NA" /> <code codeSystem="local" code= "MCHC" displayName="MEAN CELL HGB CONCENTRATION" /> <statusCode code= "completed" /> <effectiveTime value="" /> <value unit="g/dL" xsi:type="PQ" value="28.1" /> <interpretationCode codeSystem="local" code="*" /> <referenceRange> < observationRange> <text>32.0-37.0</text> </ observationRange> </referenceRange> </observation> </ component> <component> <observation moodCode="EVN" classCode="OBS"> <templateId root="840.1.121283.1022.4.2" /> <id nullFlavor="NA" /> <code codeSystem="local" code="MCV" displayName= "MEAN CELL VOLUME" /> <statusCode code="completed" /> < effectiveTime value="" /> <value unit="fl" xsi:type="PQ" value="72.0" /> <interpretationCode codeSystem="local" code="*" /> <referenceRange> <observationRange> <text>80.0- 100.0</text> </observationRange> </referenceRange> </ observation> </component> <component> <observation moodCode= "EVN" classCode="OBS"> <templateId root="07.12.840.1.044601.10.2022.4.2 " /> <id nullFlavor="NA" /> <code codeSystem="local" code="MO# " displayName="MONOCYTE #" /> <statusCode code="completed" /> <effectiveTime value="144792305124" /> <value unit="k/cumm" xsi:type= "PQ" value="0.5" /> <referenceRange> <observationRange> <text>0.1-1.0</text> </observationRange> </ referenceRange> </observation> </component> <component> <observation moodCode="EVN" classCode="OBS"> <templateId root= "840.1.064874.10.20.22.4.2" /> <id nullFlavor="NA" /> < code codeSystem="local" code="MO%" displayName="MONOCYTE %" /> <statusCode code="completed" /> <effectiveTime value="069665511500" /> <value unit="%" xsi:type="PQ" value="7" /> < interpretationCode codeSystem="local" code="*" /> <referenceRange> <observationRange> <text>4-6</text> </ observationRange> </referenceRange> </observation> </ component> <component> <observation moodCode="EVN" classCode="OBS"> <templateId root="840.1.422807.10.20.22.4.2" /> <id nullFlavor="NA" /> <code codeSystem="local" code="OVAL" displayName= "OVALOCYTES" /> <statusCode code="completed" /> < effectiveTime value="213540108333" /> <value unit="" xsi:type="PQ" value="NOTED" /> <referenceRange> <observationRange> <text /> </observationRange> </referenceRange> </observation> </component> <component> <observation moodCode ="EVN" classCode="OBS"> <templateId root= ".1.585061.10.20.22.4.2" /> <id nullFlavor="NA" /> < code codeSystem="local" code="RBC" displayName="RED BLOOD CELL" /> < statusCode code="completed" /> <effectiveTime value="" /> <value unit="m/cumm" xsi:type="PQ" value="3.71" /> < interpretationCode codeSystem="local" code="*" /> <referenceRange> <observationRange> <text>4.00-6.00</text> </ observationRange> </referenceRange> </observation> </ component> <component> <observation moodCode="EVN" classCode="OBS"> <templateId root="840.1.637163.10.22.4.2" /> <id nullFlavor="NA" /> <code codeSystem="local" code="RDW" displayName=" RED CELL DISTRIBUTION WIDTH" /> <statusCode code="completed" /> <effectiveTime value="" /> <value unit="%" xsi:type= "PQ" value="18.4" /> <interpretationCode codeSystem="local" code="*" / > <referenceRange> <observationRange> <text> 11.0-15.6</text> </observationRange> </referenceRange> </observation> </component> <component> <observation moodCode="EVN" classCode="OBS"> <templateId root= "07.12.840.1.027462.10.20.22.4.2" /> <id nullFlavor="NA" /> < code codeSystem="local" code="DIOGENES" displayName="SCHISTOCYTES" /> < statusCode code="completed" /> <effectiveTime value="492354445902" /> <value unit="" xsi:type="PQ" value="NOTED" /> <referenceRange > <observationRange> <text /> </ observationRange> </referenceRange> </observation> </ component> <component> <observation moodCode="EVN" classCode="OBS"> <templateId root="07.12.840.1.167734.10.20.22.4.2" /> <id nullFlavor="NA" /> <code codeSystem="local" code="WBC" displayName= "WHITE BLOOD CELL" /> <statusCode code="completed" /> < effectiveTime value="391276987693" /> <value unit="k/cumm" xsi:type="PQ " value="6.7" /> <referenceRange> <observationRange> <text>5.0-10.0</text> </observationRange> </ referenceRange> </observation> </component> <component> <observation moodCode="EVN" classCode="OBS"> <templateId root= "07.12.840.1.336037.10.22.4.2" /> <id nullFlavor="NA" /> < code codeSystem="local" code="HGBT" displayName="HEMOGLOBIN" /> < statusCode code="completed" /> <effectiveTime value="710471276870" /> <value unit="gm/dL" xsi:type="PQ" value="7.5" /> < interpretationCode codeSystem="local" code="*" /> <referenceRange> <observationRange> <text>12.0-16.0</text> </ observationRange> </referenceRange> </observation> </ component> <component> <observation moodCode="EVN" classCode="OBS"> <templateId root="07.12.840.1.465249.10.20.22.4.2" /> <id nullFlavor="NA" /> <code codeSystem="local" code="HCTT" displayName= "HEMATOCRIT" /> <statusCode code="completed" /> < effectiveTime value="424688781778" /> <value unit="%" xsi:type="PQ " value="26.7" /> <interpretationCode codeSystem="local" code="*" /> <referenceRange> <observationRange> <text>37.0- 47.0</text> </observationRange> </referenceRange> </ observation> </component> <component> <observation moodCode= "EVN" classCode="OBS"> <templateId root="216.840.1.427335.10..4.2 " /> <id nullFlavor="NA" /> <code codeSystem="local" code="PLT " displayName="PLATELET COUNT" /> <statusCode code="completed" /> <effectiveTime value="" /> <value unit="k/cumm" xsi: type="PQ" value="296" /> <referenceRange> <observationRange > <text>150-400</text> </observationRange> </ referenceRange> </observation> </component> </organizer> </entry > <entry> <organizer moodCode="EVN" classCode="BATTERY"> <templateId root="216.840.1.637629.10..4.1" /> <id nullFlavor="NA" /> <code codeSystem="local" code="PT" displayName="PROTHROMBIN TIME WITH INR" /> < statusCode code="completed" /> <component> <observation moodCode= "EVN" classCode="OBS"> <templateId root="16.840.1.724980.102022.4.2 " /> <id nullFlavor="NA" /> <code codeSystem="local" code= "INRX" displayName="INTERNATIONAL NORMAL RATIO" /> <statusCode code= "completed" /> <effectiveTime value="650472999054" /> <value unit="" xsi:type="PQ" value="1.0" /> <referenceRange> < observationRange> <text>0.9-1.1</text> </ observationRange> </referenceRange> </observation> </ component> <component> <observation moodCode="EVN" classCode="OBS"> <templateId root="16.840.1.977079.03.15.22.4.2" /> <id nullFlavor="NA" /> <code codeSystem="local" code="PTPAT" displayName= "PROTHROMBIN TIME" /> <statusCode code="completed" /> < effectiveTime value="" /> <value unit="sec" xsi:type="PQ" value="10.9" /> <referenceRange> <observationRange> <text>9.3-12.2</text> </observationRange> </ referenceRange> </observation> </component> </organizer> </entry > <entry> <organizer moodCode="EVN" classCode="BATTERY"> <templateId root="07.12.840.1.077825.03.15.22.4.1" /> <id nullFlavor="NA" /> <code codeSystem="local" code="PROLAC" displayName="PROLACTIN" /> <statusCode code="completed" /> <component> <observation moodCode="EVN" classCode="OBS"> <templateId root="07.12.840.1.659404.22.4.2" /> <id nullFlavor="NA" /> <code codeSystem="local" code="PROLAC" displayName="PROLACTIN" /> <statusCode code="completed" /> < effectiveTime value="614467499516" /> <value unit="ng/mL" xsi:type="PQ " value="48.8" /> <interpretationCode codeSystem="local" code="*" /> <referenceRange> <observationRange> <text>1.8- 29.2</text> </observationRange> </referenceRange> </ observation> </component> </organizer> </entry> <entry> <organizer moodCode="EVN" classCode="BATTERY"> <templateId root= "216.840.1.222951.10..22.4.1" /> <id nullFlavor="NA" /> <code codeSystem="local" code="iCHEM8" displayName="CHEM/HEM PROFILE-BEDSIDE" /> <statusCode code="completed" /> <component> <observation moodCode= "EVN" classCode="OBS"> <templateId root="16.840.1.474198.10...4.2 " /> <id nullFlavor="NA" /> <code codeSystem="local" code="K" displayName="POTASSIUM" /> <statusCode code="completed" /> < effectiveTime value="[id number]" /> <value unit="mmol/L" xsi:type="PQ " value="3.6" /> <referenceRange> <observationRange> <text>3.5-5.3</text> </observationRange> </ referenceRange> </observation> </component> <component> <observation moodCode="EVN" classCode="OBS"> <templateId root= "16.840.1.141768.10..4.2" /> <id nullFlavor="NA" /> < code codeSystem="local" code="CMETHOD" displayName="METHOD" /> < statusCode code="completed" /> <effectiveTime value="113098445458" /> <value unit="" xsi:type="PQ" value="Bedside" /> < referenceRange> <observationRange> <text /> < /observationRange> </referenceRange> </observation> </ component> <component> <observation moodCode="EVN" classCode="OBS"> <templateId root="216.840.1.627929.22.4.2" /> <id nullFlavor="NA" /> <code codeSystem="local" code="GAP" displayName= "ANION GAP" /> <statusCode code="completed" /> <effectiveTime value="" /> <value unit="mmol/L" xsi:type="PQ" value="16" / > <referenceRange> <observationRange> <text>10- 20</text> </observationRange> </referenceRange> </ observation> </component> <component> <observation moodCode= "EVN" classCode="OBS"> <templateId root="216.840.1.882189.03.15.22.4.2 " /> <id nullFlavor="NA" /> <code codeSystem="local" code= "HMETHOD" displayName="METHOD" /> <statusCode code="completed" /> <effectiveTime value="" /> <value unit="" xsi:type="PQ " value="Bedside" /> <referenceRange> <observationRange> <text /> </observationRange> </referenceRange> </observation> </component> <component> <observation moodCode="EVN" classCode="OBS"> <templateId root= "16.840.1.842023.1022.4.2" /> <id nullFlavor="NA" /> < code codeSystem="local" code="GLU" displayName="GLUCOSE" /> < statusCode code="completed" /> <effectiveTime value="" /> <value unit="mg/dL" xsi:type="PQ" value="74" /> < referenceRange> <observationRange> <text>70-99</text> </observationRange> </referenceRange> </observation> </component> <component> <observation moodCode="EVN" classCode= "OBS"> <templateId root="216.840.1.039279.10..4.2" /> < id nullFlavor="NA" /> <code codeSystem="local" code="BUN" displayName= "BLOOD UREA NITROGEN" /> <statusCode code="completed" /> < effectiveTime value="502105397483" /> <value unit="mg/dL" xsi:type="PQ " value="5" /> <interpretationCode codeSystem="local" code="*" /> <referenceRange> <observationRange> <text>7-20</ text> </observationRange> </referenceRange> </ observation> </component> <component> <observation moodCode= "EVN" classCode="OBS"> <templateId root="16.840.1.526014.03.15.22.4.2 " /> <id nullFlavor="NA" /> <code codeSystem="local" code= "CREAT" displayName="CREATININE" /> <statusCode code="completed" /> <effectiveTime value="505031536296" /> <value unit="mg/dL" xsi: type="PQ" value="0.8" /> <referenceRange> <observationRange > <text>0.6-1.0</text> </observationRange> </ referenceRange> </observation> </component> <component> <observation moodCode="EVN" classCode="OBS"> <templateId root= "16.840.1.140226.10..4.2" /> <id nullFlavor="NA" /> < code codeSystem="local" code="HGBT" displayName="HEMOGLOBIN" /> < statusCode code="completed" /> <effectiveTime value="719672884275" /> <value unit="gm/dL" xsi:type="PQ" value="8.5" /> < interpretationCode codeSystem="local" code="*" /> <referenceRange> <observationRange> <text>12.0-16.0</text> </ observationRange> </referenceRange> </observation> </ component> <component> <observation moodCode="EVN" classCode="OBS"> <templateId root="07.12.840.1.221782.10.20.22.4.2" /> <id nullFlavor="NA" /> <code codeSystem="local" code="HCTT" displayName= "HEMATOCRIT" /> <statusCode code="completed" /> < effectiveTime value="530531744907" /> <value unit="%" xsi:type="PQ " value="25.0" /> <interpretationCode codeSystem="local" code="*" /> <referenceRange> <observationRange> <text>37.0- 47.0</text> </observationRange> </referenceRange> </ observation> </component> <component> <observation moodCode= "EVN" classCode="OBS"> <templateId root="07.12.840.1.400578.10.20.22.4.2 " /> <id nullFlavor="NA" /> <code codeSystem="local" code="NA " displayName="SODIUM" /> <statusCode code="completed" /> < effectiveTime value="473883103136" /> <value unit="mmol/L" xsi:type="PQ " value="135" /> <referenceRange> <observationRange> <text>135-148</text> </observationRange> </ referenceRange> </observation> </component> <component> <observation moodCode="EVN" classCode="OBS"> <templateId root= "840.1.011559.10..22.4.2" /> <id nullFlavor="NA" /> < code codeSystem="local" code="CL" displayName="CHLORIDE" /> < statusCode code="completed" /> <effectiveTime value="" /> <value unit="mmol/L" xsi:type="PQ" value="100" /> < referenceRange> <observationRange> <text>98-110</text> </observationRange> </referenceRange> </observation> </component> <component> <observation moodCode="EVN" classCode ="OBS"> <templateId root="2.16.840.1.241474.10..4.2" /> < id nullFlavor="NA" /> <code codeSystem="local" code="CO2" displayName= "CARBON DIOXIDE" /> <statusCode code="completed" /> < effectiveTime value="" /> <value unit="mmol/L" xsi:type="PQ " value="23" /> <referenceRange> <observationRange> <text>21-32</text> </observationRange> </ referenceRange> </observation> </component> <component> <observation moodCode="EVN" classCode="OBS"> <templateId root= "2.16.840.1.560991.10...4.2" /> <id nullFlavor="NA" /> < code codeSystem="local" code="CAION" displayName="CALCIUM IONIZED" /> < statusCode code="completed" /> <effectiveTime value="" /> <value unit="mg/dL" xsi:type="PQ" value="4.6" /> < referenceRange> <observationRange> <text>4.5-5.3</text> </observationRange> </referenceRange> </observation > </component> </organizer> </entry> <entry> <organizer moodCode= "EVN" classCode="BATTERY"> <templateId root="216.840.1.995088.10..22.4.1 " /> <id nullFlavor="NA" /> <code codeSystem="local" code="UA" displayName="URINALYSIS, ROUTINE" /> <statusCode code="completed" /> < component> <observation moodCode="EVN" classCode="OBS"> < templateId root="216.840.1.574896.10..22.4.2" /> <id nullFlavor="NA " /> <code codeSystem="local" code="LEUESU" displayName="UA LEUKOCYTE ESTERASE DIPSTICK" /> <statusCode code="completed" /> < effectiveTime value="" /> <value unit="" xsi:type="PQ" value="2+" /> <interpretationCode codeSystem="local" code="*" /> <referenceRange> <observationRange> <text>NEGATIVE</ text> </observationRange> </referenceRange> </ observation> </component> <component> <observation moodCode= "EVN" classCode="OBS"> <templateId root="216.840.1.933060.10..22.4.2 " /> <id nullFlavor="NA" /> <code codeSystem="local" code= "NITRIU" displayName="UA NITRITE DIPSTICK" /> <statusCode code= "completed" /> <effectiveTime value="" /> <value unit="" xsi:type="PQ" value="NEGATIVE" /> <referenceRange> < observationRange> <text>NEGATIVE</text> </ observationRange> </referenceRange> </observation> </ component> <component> <observation moodCode="EVN" classCode="OBS"> <templateId root="07.12.840.1.839711.10..4.2" /> <id nullFlavor="NA" /> <code codeSystem="local" code="PROTEIU" displayName= "UA PROTEIN DIPSTICK" /> <statusCode code="completed" /> < effectiveTime value="" /> <value unit="" xsi:type="PQ" value="TRACE" /> <interpretationCode codeSystem="local" code="*" /> <referenceRange> <observationRange> <text> NEGATIVE</text> </observationRange> </referenceRange> </observation> </component> <component> <observation moodCode ="EVN" classCode="OBS"> <templateId root= "840.1.989393.03.15.22.4.2" /> <id nullFlavor="NA" /> < code codeSystem="local" code="DGLUU" displayName="UA GLUCOSE DIPSTICK" /> <statusCode code="completed" /> <effectiveTime value=" " /> <value unit="" xsi:type="PQ" value="NEGATIVE" /> < referenceRange> <observationRange> <text>NEGATIVE</text > </observationRange> </referenceRange> </observation > </component> <component> <observation moodCode="EVN" classCode="OBS"> <templateId root="07.12.840.1.759995.10..4.2" /> <id nullFlavor="NA" /> <code codeSystem="local" code="KETONU" displayName="UA KETONE DIPSTICK" /> <statusCode code="completed" /> <effectiveTime value="" /> <value unit="" xsi:type= "PQ" value="1+" /> <interpretationCode codeSystem="local" code="*" /> <referenceRange> <observationRange> <text> NEGATIVE</text> </observationRange> </referenceRange> </observation> </component> <component> <observation moodCode ="EVN" classCode="OBS"> <templateId root= "07.12.840.1.670006.10.20.22.4.2" /> <id nullFlavor="NA" /> < code codeSystem="local" code="UROBILU" displayName="UA UROBILINOGEN DIPSTICK" / > <statusCode code="completed" /> <effectiveTime value= "" /> <value unit="" xsi:type="PQ" value="2+" /> < interpretationCode codeSystem="local" code="*" /> <referenceRange> <observationRange> <text>NORMAL</text> </ observationRange> </referenceRange> </observation> </ component> <component> <observation moodCode="EVN" classCode="OBS"> <templateId root="840.1.593133.10..4.2" /> <id nullFlavor="NA" /> <code codeSystem="local" code="BILU" displayName=" UA BILIRUBIN DIPSTICK" /> <statusCode code="completed" /> < effectiveTime value="" /> <value unit="" xsi:type="PQ" value="POSITIVE" /> <interpretationCode codeSystem="local" code="*" /> <referenceRange> <observationRange> <text> NEGATIVE</text> </observationRange> </referenceRange> </observation> </component> <component> <observation moodCode ="EVN" classCode="OBS"> <templateId root= "07.12.840.1.076472.10.2022.4.2" /> <id nullFlavor="NA" /> < code codeSystem="local" code="LON" displayName="UA BLOOD DIPSTICK" /> < statusCode code="completed" /> <effectiveTime value="" /> <value unit="" xsi:type="PQ" value="2+" /> < interpretationCode codeSystem="local" code="*" /> <referenceRange> <observationRange> <text>NEGATIVE</text> </ observationRange> </referenceRange> </observation> </ component> <component> <observation moodCode="EVN" classCode="OBS"> <templateId root="16.840.1.841908.10..22.4.2" /> <id nullFlavor="NA" /> <code codeSystem="local" code="COMU" displayName=" UA COMMENT" /> <statusCode code="completed" /> <effectiveTime value="" /> <value unit="" xsi:type="PQ" value="" /> <referenceRange> <observationRange> <text /> </observationRange> </referenceRange> </observation> </component> <component> <observation moodCode="EVN" classCode= "OBS"> <templateId root="16.840.1.482706.10.20.22.4.2" /> < id nullFlavor="NA" /> <code codeSystem="local" code="SPGRU" displayName ="UA SPECIFIC GRAVITY" /> <statusCode code="completed" /> < effectiveTime value="" /> <value unit="" xsi:type="PQ" value="1.015" /> <referenceRange> <observationRange> <text>1.015-1.025</text> </observationRange> </ referenceRange> </observation> </component> <component> <observation moodCode="EVN" classCode="OBS"> <templateId root= "16.840.1.057255.03.15.22.4.2" /> <id nullFlavor="NA" /> < code codeSystem="local" code="WILLOW" displayName="UR PH" /> <statusCode code="completed" /> <effectiveTime value="" /> < value unit="" xsi:type="PQ" value="6.5" /> <referenceRange> <observationRange> <text>5.0-7.0</text> </ observationRange> </referenceRange> </observation> </ component> </organizer> </entry> <entry> <organizer moodCode="EVN" classCode="BATTERY"> <templateId root="07.12.840.1.082859.03.15.22.4.1" /> <id nullFlavor="NA" /> <code codeSystem="local" code="UAMICRO" displayName="UA MICROSCOPIC" /> <statusCode code="completed" /> < component> <observation moodCode="EVN" classCode="OBS"> < templateId root="07.12.840.1.776443.03.15.22.4.2" /> <id nullFlavor="NA " /> <code codeSystem="local" code="BACU" displayName="UA BACTERIA" /> <statusCode code="completed" /> <effectiveTime value= "" /> <value unit="" xsi:type="PQ" value="4+" /> < interpretationCode codeSystem="local" code="*" /> <referenceRange> <observationRange> <text>NEGATIVE</text> </ observationRange> </referenceRange> </observation> </ component> <component> <observation moodCode="EVN" classCode="OBS"> <templateId root="07.12.840.1.757296.03.15.22.4.2" /> <id nullFlavor="NA" /> <code codeSystem="local" code="EPIU" displayName=" UA EPITHELIAL CELLS" /> <statusCode code="completed" /> < effectiveTime value="" /> <value unit="epi/hpf" xsi:type= "PQ" value="2+" /> <interpretationCode codeSystem="local" code="*" /> <referenceRange> <observationRange> <text>0 - 1 +</text> </observationRange> </referenceRange> </ observation> </component> <component> <observation moodCode= "EVN" classCode="OBS"> <templateId root="2.16.840.1.797337.03.15.22.4.2 " /> <id nullFlavor="NA" /> <code codeSystem="local" code= "MUCUSU" displayName="UA MUCUS" /> <statusCode code="completed" /> <effectiveTime value="" /> <value unit="" xsi:type= "PQ" value="2+" /> <interpretationCode codeSystem="local" code="*" /> <referenceRange> <observationRange> <text>NEG TO 1+</text> </observationRange> </referenceRange> </ observation> </component> <component> <observation moodCode= "EVN" classCode="OBS"> <templateId root="2.16.840.1.106049.10..4.2 " /> <id nullFlavor="NA" /> <code codeSystem="local" code= "RBCU" displayName="UA RBC" /> <statusCode code="completed" /> <effectiveTime value="" /> <value unit="rbc/hpf" xsi:type ="PQ" value="5-10" /> <interpretationCode codeSystem="local" code="*" / > <referenceRange> <observationRange> <text>0 - 3</text> </observationRange> </referenceRange> </ observation> </component> <component> <observation moodCode= "EVN" classCode="OBS"> <templateId root="16.840.1.413439.10...4.2 " /> <id nullFlavor="NA" /> <code codeSystem="local" code= "UAVOL" displayName="UA VOLUME FOR EXAM" /> <statusCode code="completed " /> <effectiveTime value="" /> <value unit="mL" xsi:type="PQ" value="12.0" /> <referenceRange> < observationRange> <text>(12mL STD)</text> </ observationRange> </referenceRange> </observation> </ component> <component> <observation moodCode="EVN" classCode="OBS"> <templateId root="07.12.840.1.967073.03.15.22.4.2" /> <id nullFlavor="NA" /> <code codeSystem="local" code="WBCU" displayName=" UA WBC" /> <statusCode code="completed" /> <effectiveTime value="" /> <value unit="wbc/hpf" xsi:type="PQ" value="5-10 " /> <interpretationCode codeSystem="local" code="*" /> < referenceRange> <observationRange> <text>0 - 5</text> </observationRange> </referenceRange> </observation> </component> </organizer> </entry> <entry> <organizer moodCode="EVN " classCode="BATTERY"> <templateId root="16.840.1.206131.10...4.1" / > <id nullFlavor="NA" /> <code codeSystem="local" code="METAB" displayName="METABOLIC PANEL, BASIC" /> <statusCode code="completed" /> <component> <observation moodCode="EVN" classCode="OBS"> < templateId root="07.12.840.1.008497.03.15.22.4.2" /> <id nullFlavor="NA " /> <code codeSystem="local" code="K" displayName="POTASSIUM" /> <statusCode code="completed" /> <effectiveTime value=" " /> <value unit="mmol/L" xsi:type="PQ" value="4.2" /> < referenceRange> <observationRange> <text>3.5-5.3</text> </observationRange> </referenceRange> </observation > </component> <component> <observation moodCode="EVN" classCode="OBS"> <templateId root="07.12.840.1.222732.03.15.22.4.2" /> <id nullFlavor="NA" /> <code codeSystem="local" code="eGFR" displayName="EST GFR (MDRD)" /> <statusCode code="completed" /> <effectiveTime value="" /> <value unit="mL/min" xsi:type ="PQ" value="> 60" /> <referenceRange> <observationRange > <text>> 59</text> </observationRange> </ referenceRange> </observation> </component> <component> <observation moodCode="EVN" classCode="OBS"> <templateId root= "07.12.840.1.382088...4.2" /> <id nullFlavor="NA" /> < code codeSystem="local" code="GAP" displayName="ANION GAP" /> < statusCode code="completed" /> <effectiveTime value="" /> <value unit="mmol/L" xsi:type="PQ" value="8" /> < referenceRange> <observationRange> <text>5-15</text> </observationRange> </referenceRange> </observation> </component> <component> <observation moodCode="EVN" classCode= "OBS"> <templateId root="07.12.840.1.727075.10...4.2" /> < id nullFlavor="NA" /> <code codeSystem="local" code="eCrCl" displayName ="EST CrCl (CG)" /> <statusCode code="completed" /> < effectiveTime value="151898174978" /> <value unit="mL/min" xsi:type="PQ " value="> 60" /> <referenceRange> <observationRange> <text>> 59</text> </observationRange> </ referenceRange> </observation> </component> <component> <observation moodCode="EVN" classCode="OBS"> <templateId root= "840.1.277100.03.15.22.4.2" /> <id nullFlavor="NA" /> < code codeSystem="local" code="GLU" displayName="GLUCOSE" /> < statusCode code="completed" /> <effectiveTime value="604712844457" /> <value unit="mg/dL" xsi:type="PQ" value="85" /> < referenceRange> <observationRange> <text>70-99</text> </observationRange> </referenceRange> </observation> </component> <component> <observation moodCode="EVN" classCode= "OBS"> <templateId root="07.12.840.1.638280.10..4.2" /> < id nullFlavor="NA" /> <code codeSystem="local" code="CA" displayName= "CALCIUM" /> <statusCode code="completed" /> <effectiveTime value="110734920366" /> <value unit="mg/dL" xsi:type="PQ" value="8.2" / > <interpretationCode codeSystem="local" code="*" /> < referenceRange> <observationRange> <text>8.5-10.1</text > </observationRange> </referenceRange> </observation > </component> <component> <observation moodCode="EVN" classCode="OBS"> <templateId root="216.840.1.585630.10.20.22.4.2" /> <id nullFlavor="NA" /> <code codeSystem="local" code="BUN" displayName="BLOOD UREA NITROGEN" /> <statusCode code="completed" /> <effectiveTime value="478007821424" /> <value unit="mg/dL" xsi: type="PQ" value="4" /> <interpretationCode codeSystem="local" code="*" /> <referenceRange> <observationRange> <text>7- 20</text> </observationRange> </referenceRange> </ observation> </component> <component> <observation moodCode= "EVN" classCode="OBS"> <templateId root="2.16.840.1.156599.10.20.22.4.2 " /> <id nullFlavor="NA" /> <code codeSystem="local" code= "CREAT" displayName="CREATININE" /> <statusCode code="completed" /> <effectiveTime value="826922555088" /> <value unit="mg/dL" xsi: type="PQ" value="0.7" /> <referenceRange> <observationRange > <text>0.6-1.0</text> </observationRange> </ referenceRange> </observation> </component> <component> <observation moodCode="EVN" classCode="OBS"> <templateId root= "216.840.1.698947.10..22.4.2" /> <id nullFlavor="NA" /> < code codeSystem="local" code="NA" displayName="SODIUM" /> <statusCode code="completed" /> <effectiveTime value="262255328850" /> < value unit="mmol/L" xsi:type="PQ" value="142" /> <referenceRange> <observationRange> <text>135-148</text> </ observationRange> </referenceRange> </observation> </ component> <component> <observation moodCode="EVN" classCode="OBS"> <templateId root="216.840.1.117349.10..22.4.2" /> <id nullFlavor="NA" /> <code codeSystem="local" code="CL" displayName= "CHLORIDE" /> <statusCode code="completed" /> <effectiveTime value="363787509708" /> <value unit="mmol/L" xsi:type="PQ" value="106" /> <referenceRange> <observationRange> <text>98 -110</text> </observationRange> </referenceRange> </ observation> </component> <component> <observation moodCode= "EVN" classCode="OBS"> <templateId root="216.840.1.189300.10..22.4.2 " /> <id nullFlavor="NA" /> <code codeSystem="local" code="CO2 " displayName="CARBON DIOXIDE" /> <statusCode code="completed" /> <effectiveTime value="" /> <value unit="mmol/L" xsi: type="PQ" value="28" /> <referenceRange> <observationRange> <text>21-32</text> </observationRange> </ referenceRange> </observation> </component> </organizer> </entry > <entry> <organizer moodCode="EVN" classCode="BATTERY"> <templateId root="216.840.1.583573.10..22.4.1" /> <id nullFlavor="NA" /> <code codeSystem="local" code="CBCD" displayName="CBC W/DIFF" /> <statusCode code ="completed" /> <component> <observation moodCode="EVN" classCode= "OBS"> <templateId root="2.16.840.1.610054.10...4.2" /> < id nullFlavor="NA" /> <code codeSystem="local" code="BA#" displayName= "BASOPHIL #" /> <statusCode code="completed" /> < effectiveTime value="225729091209" /> <value unit="k/cumm" xsi:type="PQ " value="0.0" /> <referenceRange> <observationRange> <text>0.0-0.2</text> </observationRange> </ referenceRange> </observation> </component> <component> <observation moodCode="EVN" classCode="OBS"> <templateId root= "2.16.840.1.367521.10...4.2" /> <id nullFlavor="NA" /> < code codeSystem="local" code="BA%" displayName="BASOPHIL %" /> <statusCode code="completed" /> <effectiveTime value="585843878603" /> <value unit="%" xsi:type="PQ" value="1" /> < referenceRange> <observationRange> <text>0-1</text> </observationRange> </referenceRange> </observation> </component> <component> <observation moodCode="EVN" classCode= "OBS"> <templateId root="07.12.840.1.830545.10.22.4.2" /> < id nullFlavor="NA" /> <code codeSystem="local" code="EO#" displayName= "EOSINOPHIL #" /> <statusCode code="completed" /> < effectiveTime value="" /> <value unit="k/cumm" xsi:type="PQ " value="0.2" /> <referenceRange> <observationRange> <text>0.1-0.5</text> </observationRange> </ referenceRange> </observation> </component> <component> <observation moodCode="EVN" classCode="OBS"> <templateId root= "07.12.840.1.153330.03.15.22.4.2" /> <id nullFlavor="NA" /> < code codeSystem="local" code="EO%" displayName="EOSINOPHIL %" /> <statusCode code="completed" /> <effectiveTime value="" /> <value unit="%" xsi:type="PQ" value="3" /> < referenceRange> <observationRange> <text>2-4</text> </observationRange> </referenceRange> </observation> </component> <component> <observation moodCode="EVN" classCode= "OBS"> <templateId root="07.12.840.1.592518.10.22.4.2" /> < id nullFlavor="NA" /> <code codeSystem="local" code="GR#" displayName= "GRANULOCYTE #" /> <statusCode code="completed" /> < effectiveTime value="" /> <value unit="k/cumm" xsi:type="PQ " value="2.2" /> <referenceRange> <observationRange> <text>2.0-9.0</text> </observationRange> </ referenceRange> </observation> </component> <component> <observation moodCode="EVN" classCode="OBS"> <templateId root= "07.12.840.1.740432.10.2022.4.2" /> <id nullFlavor="NA" /> < code codeSystem="local" code="GR%" displayName="GRANULOCYTE %" /> <statusCode code="completed" /> <effectiveTime value="742691194601 " /> <value unit="%" xsi:type="PQ" value="39" /> < interpretationCode codeSystem="local" code="*" /> <referenceRange> <observationRange> <text>50-75</text> </ observationRange> </referenceRange> </observation> </ component> <component> <observation moodCode="EVN" classCode="OBS"> <templateId root="840.1.505563.03.15.22.4.2" /> <id nullFlavor="NA" /> <code codeSystem="local" code="LY#" displayName= "LYMPHOCYTE #" /> <statusCode code="completed" /> < effectiveTime value="850281438340" /> <value unit="k/cumm" xsi:type="PQ " value="2.5" /> <referenceRange> <observationRange> <text>1.0-4.0</text> </observationRange> </ referenceRange> </observation> </component> <component> <observation moodCode="EVN" classCode="OBS"> <templateId root= "07.12.840.1.442385.1022.4.2" /> <id nullFlavor="NA" /> < code codeSystem="local" code="LY%" displayName="LYMPHOCYTE %" /> <statusCode code="completed" /> <effectiveTime value="" /> <value unit="%" xsi:type="PQ" value="44" /> < interpretationCode codeSystem="local" code="*" /> <referenceRange> <observationRange> <text>20-30</text> </ observationRange> </referenceRange> </observation> </ component> <component> <observation moodCode="EVN" classCode="OBS"> <templateId root="216.840.1.858254.10.20.22.4.2" /> <id nullFlavor="NA" /> <code codeSystem="local" code="MCH" displayName= "MEAN CELL HGB" /> <statusCode code="completed" /> < effectiveTime value="442406626152" /> <value unit="pg" xsi:type="PQ" value="19.6" /> <interpretationCode codeSystem="local" code="*" /> <referenceRange> <observationRange> <text>27.0- 33.0</text> </observationRange> </referenceRange> </ observation> </component> <component> <observation moodCode= "EVN" classCode="OBS"> <templateId root="216.840.1.548371.10.20.22.4.2 " /> <id nullFlavor="NA" /> <code codeSystem="local" code= "MCHC" displayName="MEAN CELL HGB CONCENTRATION" /> <statusCode code= "completed" /> <effectiveTime value="819068611837" /> <value unit="g/dL" xsi:type="PQ" value="26.8" /> <interpretationCode codeSystem="local" code="*" /> <referenceRange> < observationRange> <text>32.0-37.0</text> </ observationRange> </referenceRange> </observation> </ component> <component> <observation moodCode="EVN" classCode="OBS"> <templateId root="216.840.1.343497.10.4.2" /> <id nullFlavor="NA" /> <code codeSystem="local" code="MCV" displayName= "MEAN CELL VOLUME" /> <statusCode code="completed" /> < effectiveTime value="" /> <value unit="fl" xsi:type="PQ" value="73.2" /> <interpretationCode codeSystem="local" code="*" /> <referenceRange> <observationRange> <text>80.0- 100.0</text> </observationRange> </referenceRange> </ observation> </component> <component> <observation moodCode= "EVN" classCode="OBS"> <templateId root="07.12.840.1.650646.03.15.224.2 " /> <id nullFlavor="NA" /> <code codeSystem="local" code="MO# " displayName="MONOCYTE #" /> <statusCode code="completed" /> <effectiveTime value="" /> <value unit="k/cumm" xsi:type= "PQ" value="0.8" /> <referenceRange> <observationRange> <text>0.1-1.0</text> </observationRange> </ referenceRange> </observation> </component> <component> <observation moodCode="EVN" classCode="OBS"> <templateId root= "216.840.1.790100.22.4.2" /> <id nullFlavor="NA" /> < code codeSystem="local" code="MO%" displayName="MONOCYTE %" /> <statusCode code="completed" /> <effectiveTime value="" /> <value unit="%" xsi:type="PQ" value="14" /> < interpretationCode codeSystem="local" code="*" /> <referenceRange> <observationRange> <text>4-6</text> </ observationRange> </referenceRange> </observation> </ component> <component> <observation moodCode="EVN" classCode="OBS"> <templateId root="840.1.041142.03.15.22.4.2" /> <id nullFlavor="NA" /> <code codeSystem="local" code="OVAL" displayName= "OVALOCYTES" /> <statusCode code="completed" /> < effectiveTime value="" /> <value unit="" xsi:type="PQ" value="NOTED" /> <referenceRange> <observationRange> <text /> </observationRange> </referenceRange> </observation> </component> <component> <observation moodCode ="EVN" classCode="OBS"> <templateId root= "840.1.893107.03.15.22.4.2" /> <id nullFlavor="NA" /> < code codeSystem="local" code="POLC" displayName="POLYCHROMASIA" /> < statusCode code="completed" /> <effectiveTime value="" /> <value unit="" xsi:type="PQ" value="NOTED" /> <referenceRange > <observationRange> <text /> </ observationRange> </referenceRange> </observation> </ component> <component> <observation moodCode="EVN" classCode="OBS"> <templateId root="07.12.840.1.432927.03.15.22.4.2" /> <id nullFlavor="NA" /> <code codeSystem="local" code="RBC" displayName=" RED BLOOD CELL" /> <statusCode code="completed" /> < effectiveTime value="" /> <value unit="m/cumm" xsi:type="PQ " value="2.91" /> <interpretationCode codeSystem="local" code="*" /> <referenceRange> <observationRange> <text>4.00- 6.00</text> </observationRange> </referenceRange> </ observation> </component> <component> <observation moodCode= "EVN" classCode="OBS"> <templateId root="2.16.840.1.813121.10..22.4.2 " /> <id nullFlavor="NA" /> <code codeSystem="local" code="RDW " displayName="RED CELL DISTRIBUTION WIDTH" /> <statusCode code= "completed" /> <effectiveTime value="" /> <value unit="%" xsi:type="PQ" value="18.1" /> <interpretationCode codeSystem="local" code="*" /> <referenceRange> < observationRange> <text>11.0-15.6</text> </ observationRange> </referenceRange> </observation> </ component> <component> <observation moodCode="EVN" classCode="OBS"> <templateId root="216.840.1.662890.10.20.22.4.2" /> <id nullFlavor="NA" /> <code codeSystem="local" code="WBC" displayName= "WHITE BLOOD CELL" /> <statusCode code="completed" /> < effectiveTime value="" /> <value unit="k/cumm" xsi:type="PQ " value="5.7" /> <referenceRange> <observationRange> <text>5.0-10.0</text> </observationRange> </ referenceRange> </observation> </component> <component> <observation moodCode="EVN" classCode="OBS"> <templateId root= "216.840.1.526117.10..4.2" /> <id nullFlavor="NA" /> < code codeSystem="local" code="HGBT" displayName="HEMOGLOBIN" /> < statusCode code="completed" /> <effectiveTime value="036941400472" /> <value unit="gm/dL" xsi:type="PQ" value="5.7" /> < interpretationCode codeSystem="local" code="" /> <referenceRange> <observationRange> <text>12.0-16.0</text> </ observationRange> </referenceRange> </observation> </ component> <component> <observation moodCode="EVN" classCode="OBS"> <templateId root="07.12.840.1.217197.03.15.22.4.2" /> <id nullFlavor="NA" /> <code codeSystem="local" code="HCTT" displayName= "HEMATOCRIT" /> <statusCode code="completed" /> < effectiveTime value="853661015458" /> <value unit="%" xsi:type="PQ " value="21.3" /> <interpretationCode codeSystem="local" code="*" /> <referenceRange> <observationRange> <text>37.0- 47.0</text> </observationRange> </referenceRange> </ observation> </component> <component> <observation moodCode= "EVN" classCode="OBS"> <templateId root="07.12.840.1.426244.03.15.22.4.2 " /> <id nullFlavor="NA" /> <code codeSystem="local" code="PLT " displayName="PLATELET COUNT" /> <statusCode code="completed" /> <effectiveTime value="058513270705" /> <value unit="k/cumm" xsi: type="PQ" value="211" /> <referenceRange> <observationRange > <text>150-450</text> </observationRange> </ referenceRange> </observation> </component> </organizer> </entry > <entry> <organizer moodCode="EVN" classCode="BATTERY"> <templateId root="16.840.1.841333.03.15.22.4.1" /> <id nullFlavor="NA" /> <code codeSystem="local" code="MORPH" displayName="MORPHOLOGY" /> <statusCode code="completed" /> <component> <observation moodCode="EVN" classCode="OBS"> <templateId root="216.840.1.337460.03.15.22.4.2" /> <id nullFlavor="NA" /> <code codeSystem="local" code="RMORPH" displayName="RBC MORPH" /> <statusCode code="completed" /> < effectiveTime value="463822241810" /> <value unit="" xsi:type="PQ" value="NOTED" /> <referenceRange> <observationRange> <text /> </observationRange> </referenceRange> </observation> </component> </organizer> </entry> <entry> < organizer moodCode="EVN" classCode="BATTERY"> <templateId root= "07.12.840.1.700737.03.15.22.4.1" /> <id nullFlavor="NA" /> <code codeSystem="local" code="VRESP" displayName="VIRUS RESPIRATORY SCREEN" /> < statusCode code="completed" /> <component> <observation moodCode= "EVN" classCode="OBS"> <templateId root="16.840.1.791819.10..22.4.2 " /> <id nullFlavor="NA" /> <code codeSystem="local" code="MB " displayName="Microbiology" /> <statusCode code="completed" /> <effectiveTime value="053628044601" /> <value xsi:type="ST" value="< pre><b>VIRUS RESPIRATORY SCREEN - HUMAN METAPNEUMOVIRUS - VIRUS RESPIRATORY CULTURE</b> See BelowVIRUS RESPIRATORY SCREEN(F) Red Date/Time: 02/21/2014 06:27 Matty Date/Time: 02/24/2014 12:13SOURCE: NASOPHARYNGEALSPEC DESC: VIR RESPIRATORY POOL FANO RSV, INFLUENZA, PARAINFLUENZA OR ADENOVIRUS [facility]ECTEDWEJAME[facility] [phone] [place], [place] [address]See BelowHUMAN METAPNEUMOVIRUS(F) Red Date/Time : 02/21/2014 06:27 Matty Date/Time: 02/24/2014 12: 13SOURCE: NASOPHARYNGEALSPEC DESC: HUMAN METAPNEUMOVIRUSNO HUMAN METAPNEUMOVIRUS ANTIGEN DETECTEDWEJAMEST[facility] [phone] [place], [place] [address]See BelowVIRUS RESPIRATORY CULTURE(F) Red Date/Time : 02/21/2014 06:27 Matty Date/Time: 02/24/2014 12: 13SOURCE: NASOPHARYNGEALSPEC DESC: R-MIX NEGATIVE AT 48 HRSNO RSV, INFLUENZA , PARAINFLUENZA OR ADENOVIRUS ISOLATEDNELL [facility]. [facility] [phone] [place], [place] [id number]</pre>" /> <referenceRange> < observationRange> <text /> </observationRange> </referenceRange> </observation> </component> </organizer> </ entry> <entry> <organizer moodCode="EVN" classCode="BATTERY"> < templateId root="2.16.840.1.122069.10..22.4.1" /> <id nullFlavor="NA" /> <code codeSystem="local" code="BCLACT" displayName="BC REFLEX LACTIC ACID " /> <statusCode code="completed" /> <component> <observation moodCode="EVN" classCode="OBS"> <templateId root= "2.16.840.1.107647.10.20.22.4.2" /> <id nullFlavor="NA" /> < code codeSystem="local" code="LACT" displayName="LACTIC ACID" /> < statusCode code="completed" /> <effectiveTime value="431891225014" /> <value unit="mmol/L" xsi:type="PQ" value="1.8" /> < referenceRange> <observationRange> <text>0.5-2.2</text> </observationRange> </referenceRange> </observation > </component> </organizer> </entry> <entry> <organizer moodCode= "EVN" classCode="BATTERY"> <templateId root="2.16.840.1.496243.10.20.22.4.1 " /> <id nullFlavor="NA" /> <code codeSystem="local" code="BNP" displayName="B-TYPE NATRIURETIC PEPTIDE" /> <statusCode code="completed" / > <component> <observation moodCode="EVN" classCode="OBS"> <templateId root="2.16.840.1.040007.10.20.22.4.2" /> <id nullFlavor="NA " /> <code codeSystem="local" code="BNP" displayName="B-TYPE NATRIURETIC PEPTIDE" /> <statusCode code="completed" /> < effectiveTime value="206014899923" /> <value unit="pg/mL" xsi:type="PQ " value="88" /> <referenceRange> <observationRange> <text>< 100</text> </observationRange> </ referenceRange> </observation> </component> </organizer> </entry > <entry> <organizer moodCode="EVN" classCode="BATTERY"> <templateId root="07.12.840.1.671392.10..22.4.1" /> <id nullFlavor="NA" /> <code codeSystem="local" code="FETIBC" displayName="IRON W/ BINDING CAPACITY" /> <statusCode code="completed" /> <component> <observation moodCode= "EVN" classCode="OBS"> <templateId root="07.12.840.1.003193.03.15.22.4.2 " /> <id nullFlavor="NA" /> <code codeSystem="local" code= "FESAT" displayName="IRON SATURATION" /> <statusCode code="completed" / > <effectiveTime value="842882857686" /> <value unit="%SAT " xsi:type="PQ" value="4" /> <interpretationCode codeSystem="local" code="*" /> <referenceRange> <observationRange> <text>11-46</text> </observationRange> </referenceRange> </observation> </component> <component> <observation moodCode="EVN" classCode="OBS"> <templateId root= "07.12.840.1.514207.03.15.22.4.2" /> <id nullFlavor="NA" /> < code codeSystem="local" code="TIBC" displayName="IRON BINDING CAPACITY, TOTAL" / > <statusCode code="completed" /> <effectiveTime value= "193510315313" /> <value unit="mcg/dL" xsi:type="PQ" value="380" /> <referenceRange> <observationRange> <text>250-450 </text> </observationRange> </referenceRange> </ observation> </component> <component> <observation moodCode= "EVN" classCode="OBS"> <templateId root="07.12.840.1.973642.03.15.22.4.2 " /> <id nullFlavor="NA" /> <code codeSystem="local" code= "IRON" displayName="IRON" /> <statusCode code="completed" /> < effectiveTime value="065488962022" /> <value unit="mcg/dL" xsi:type="PQ " value="14" /> <interpretationCode codeSystem="local" code="*" /> <referenceRange> <observationRange> <text>35-150</ text> </observationRange> </referenceRange> </ observation> </component> </organizer> </entry> <entry> <organizer moodCode="EVN" classCode="BATTERY"> <templateId root= "2.16.840.1.860723.10..22.4.1" /> <id nullFlavor="NA" /> <code codeSystem="local" code="LEANNE" displayName="FERRITIN" /> <statusCode code= "completed" /> <component> <observation moodCode="EVN" classCode= "OBS"> <templateId root="216.840.1.749986.10..22.4.2" /> < id nullFlavor="NA" /> <code codeSystem="local" code="LEANNE" displayName= "FERRITIN" /> <statusCode code="completed" /> <effectiveTime value="519435243688" /> <value unit="ng/mL" xsi:type="PQ" value="3" /> <interpretationCode codeSystem="local" code="*" /> < referenceRange> <observationRange> <text>8-252</text> </observationRange> </referenceRange> </observation> </component> </organizer> </entry> <entry> <organizer moodCode="EVN " classCode="BATTERY"> <templateId root="216.840.1.406397.03.15.22.4.1" / > <id nullFlavor="NA" /> <code codeSystem="local" code="BC" displayName="BLOOD CULTURE" /> <statusCode code="completed" /> < component> <observation moodCode="EVN" classCode="OBS"> < templateId root="07.12.840.1.205832.03.15.22.4.2" /> <id nullFlavor="NA " /> <code codeSystem="local" code="MB" displayName="Microbiology" /> <statusCode code="completed" /> <effectiveTime value= "534976553535" /> <value xsi:type="ST" value="<pre><b>BLOOD CULTURE</b > See BelowCurrent Hospital Stay: Is this the first BLOOD CULTURE? YBLOOD CULTURE(F) Red Date/Time: 02/21/2014 06:47 Matty Date/Time: 02/26/2014 17:25SOURCE: BLOODSPEC DESC: [id number] [facility] [phone] [place] [address]</ pre>" /> <referenceRange> <observationRange> < text /> </observationRange> </referenceRange> </ observation> </component> </organizer> </entry> <entry> <organizer moodCode="EVN" classCode="BATTERY"> <templateId root= "840.1.383934.03.15.22.4.1" /> <id nullFlavor="NA" /> <code codeSystem="local" code="BC" displayName="BLOOD CULTURE" /> <statusCode code="completed" /> <component> <observation moodCode="EVN" classCode="OBS"> <templateId root="07.12.840.1.684784.10..22.4.2" /> <id nullFlavor="NA" /> <code codeSystem="local" code="MB" displayName="Microbiology" /> <statusCode code="completed" /> <effectiveTime value="884927151348" /> <value xsi:type="ST" value="<pre ><b>BLOOD CULTURE</b> See BelowCurrent Hospital Stay: Is this the first BLOOD CULTURE? YBLOOD CULTURE(F) Red Date/Time: 02/21/2014 06:47 Matty Date/Time: 02/26/2014 17:25SOURCE: BLOODSPEC DESC: [id number] [facility] [phone] [place] [address]</pre>" /> <referenceRange> < observationRange> <text /> </observationRange> </referenceRange> </observation> </component> </organizer> </ entry> <entry> <organizer moodCode="EVN" classCode="BATTERY"> < templateId root="2.16.840.1.115255.10.20.22.4.1" /> <id nullFlavor="NA" /> <code codeSystem="local" code="GLUMON" displayName="GLUCOSE (POC)" /> <statusCode code="completed" /> <component> <observation moodCode= "EVN" classCode="OBS"> <templateId root="2.16.840.1.870512.10.20.22.4.2 " /> <id nullFlavor="NA" /> <code codeSystem="local" code= "GLUMON" displayName="GLUCOSE (POC)" /> <statusCode code="completed" / > <effectiveTime value="752980686826" /> <value unit="mg/dL" xsi:type="PQ" value="91" /> <referenceRange> < observationRange> <text>70-99</text> </observationRange > </referenceRange> </observation> </component> </ organizer> </entry> <entry> <organizer moodCode="EVN" classCode="BATTERY"> <templateId root="840.1.352304.03.15.22.4.1" /> <id nullFlavor= "NA" /> <code codeSystem="local" code="GLUMON" displayName="GLUCOSE (POC)" /> <statusCode code="completed" /> <component> <observation moodCode="EVN" classCode="OBS"> <templateId root= "840.1.611167.03.15.224.2" /> <id nullFlavor="NA" /> < code codeSystem="local" code="GLUMON" displayName="GLUCOSE (POC)" /> < statusCode code="completed" /> <effectiveTime value="322637000712" /> <value unit="mg/dL" xsi:type="PQ" value="101" /> < interpretationCode codeSystem="local" code="*" /> <referenceRange> <observationRange> <text>70-99</text> </ observationRange> </referenceRange> </observation> </ component> </organizer> </entry> <entry> <organizer moodCode="EVN" classCode="BATTERY"> <templateId root="840.1.915052.03.15.22.4.1" /> <id nullFlavor="NA" /> <code codeSystem="local" code="OCC" displayName ="FECAL OCCULT BLOOD" /> <statusCode code="completed" /> <component> <observation moodCode="EVN" classCode="OBS"> <templateId root= "840.1.412593.03.15.22.4.2" /> <id nullFlavor="NA" /> < code codeSystem="local" code="MB" displayName="Microbiology" /> < statusCode code="completed" /> <effectiveTime value="577826134494" /> <value xsi:type="ST" value="<pre><b>FECAL OCCULT BLOOD</b> See BelowFECAL OCCULT BLOOD(F) Red Date/Time: 02/21/2014 13:00 Matty Date/Time: 02/21/2014 13:44SOURCE: STOOLSPEC DESC: OCCULT BLOODNEGATIVEST. [facility] - [phone] [place] [address]< /pre>" /> <referenceRange> <observationRange> < text /> </observationRange> </referenceRange> </ observation> </component> </organizer> </entry> <entry> <organizer moodCode="EVN" classCode="BATTERY"> <templateId root= "2.16.840.1.065475.10.20.22.4.1" /> <id nullFlavor="NA" /> <code codeSystem="local" code="GLUMON" displayName="GLUCOSE (POC)" /> < statusCode code="completed" /> <component> <observation moodCode= "EVN" classCode="OBS"> <templateId root="2.16.840.1.526415.10.20.22.4.2 " /> <id nullFlavor="NA" /> <code codeSystem="local" code= "GLUMON" displayName="GLUCOSE (POC)" /> <statusCode code="completed" / > <effectiveTime value="841654003609" /> <value unit="mg/dL" xsi:type="PQ" value="116" /> <interpretationCode codeSystem="local" code="*" /> <referenceRange> <observationRange> <text>70-99</text> </observationRange> </referenceRange> </observation> </component> </organizer> </entry> <entry> < organizer moodCode="EVN" classCode="BATTERY"> <templateId root= "2.16.840.1.404153.10.20..4.1" /> <id nullFlavor="NA" /> <code codeSystem="local" code="GRAMSP" displayName="GRAM STAIN SPUTUM - SPUTUM CULTURE " /> <statusCode code="completed" /> <component> <observation moodCode="EVN" classCode="OBS"> <templateId root= "2.16.840.1.338193.10..4.2" /> <id nullFlavor="NA" /> < code codeSystem="local" code="MB" displayName="Microbiology" /> < statusCode code="completed" /> <effectiveTime value="189353638871" /> <value xsi:type="ST" value="<pre><b>GRAM STAIN SPUTUM - SPUTUM CULTURE< /b> See BelowGRAM STAIN SPUTUM(F) Red Date/Time: 02/21/2014 17:55 Matty Date/Time: 02/23/2014 10:32SOURCE: SPUTUMSPEC DESC: EXPECTORATEDGRAM STAINMODERATE NEUTROPHILSRARE MIXED BACTERIAL FLORAST. [facility] - [phone] [place], [place] [address]Jfh BelowSPUTUM CULTURE(F) Red Date/Time: 02/21/2014 17:55 Matty Date/Time: 02/23/2014 10:32SOURCE: SPUTUMSPEC DESC: EXPECTORATEDCULTURE REPORTNORMAL FLORAST. [facility] - [phone] [place] [address]</pre>" /> <referenceRange> < observationRange> <text /> </observationRange> </referenceRange> </observation> </component> </organizer> </ entry> <entry> <organizer moodCode="EVN" classCode="BATTERY"> < templateId root="2.16.840.1.821114.10...4.1" /> <id nullFlavor="NA" /> <code codeSystem="local" code="GLUMON" displayName="GLUCOSE (POC)" /> <statusCode code="completed" /> <component> <observation moodCode= "EVN" classCode="OBS"> <templateId root="16.840.1.417781.10.20.22.4.2 " /> <id nullFlavor="NA" /> <code codeSystem="local" code= "GLUMON" displayName="GLUCOSE (POC)" /> <statusCode code="completed" / > <effectiveTime value="665346977428" /> <value unit="mg/dL" xsi:type="PQ" value="85" /> <referenceRange> < observationRange> <text>70-99</text> </observationRange > </referenceRange> </observation> </component> </ organizer> </entry> <entry> <organizer moodCode="EVN" classCode="BATTERY"> <templateId root="216.840.1.297085.10.20.22.4.1" /> <id nullFlavor= "NA" /> <code codeSystem="local" code="GLUMON" displayName="GLUCOSE (POC)" /> <statusCode code="completed" /> <component> <observation moodCode="EVN" classCode="OBS"> <templateId root= "216.840.1.788628.10.20.22.4.2" /> <id nullFlavor="NA" /> < code codeSystem="local" code="GLUMON" displayName="GLUCOSE (POC)" /> < statusCode code="completed" /> <effectiveTime value="601167237409" /> <value unit="mg/dL" xsi:type="PQ" value="96" /> < referenceRange> <observationRange> <text>70-99</text> </observationRange> </referenceRange> </observation> </component> </organizer> </entry> <entry> <organizer moodCode="EVN " classCode="BATTERY"> <templateId root="07.12.840.1.799013.10..22.4.1" / > <id nullFlavor="NA" /> <code codeSystem="local" code="CBCD" displayName="CBC W/DIFF" /> <statusCode code="completed" /> <component > <observation moodCode="EVN" classCode="OBS"> <templateId root= "840.1.589696.03.15.22.4.2" /> <id nullFlavor="NA" /> < code codeSystem="local" code="EO#" displayName="EOSINOPHIL #" /> < statusCode code="completed" /> <effectiveTime value="290680913557" /> <value unit="k/cumm" xsi:type="PQ" value="0.2" /> < referenceRange> <observationRange> <text>0.1-0.5</text> </observationRange> </referenceRange> </observation > </component> <component> <observation moodCode="EVN" classCode="OBS"> <templateId root="840.1.237064.03.15.22.4.2" /> <id nullFlavor="NA" /> <code codeSystem="local" code="EO% " displayName="EOSINOPHIL %" /> <statusCode code="completed" /> <effectiveTime value="339454013756" /> <value unit="%" xsi: type="PQ" value="2" /> <referenceRange> <observationRange> <text>2-4</text> </observationRange> </ referenceRange> </observation> </component> <component> <observation moodCode="EVN" classCode="OBS"> <templateId root= "07.12.840.1.799246...4.2" /> <id nullFlavor="NA" /> < code codeSystem="local" code="GR#" displayName="GRANULOCYTE #" /> < statusCode code="completed" /> <effectiveTime value="470069582587" /> <value unit="k/cumm" xsi:type="PQ" value="4.6" /> < referenceRange> <observationRange> <text>2.0-9.0</text> </observationRange> </referenceRange> </observation > </component> <component> <observation moodCode="EVN" classCode="OBS"> <templateId root="216.840.1.273950.10.20.22.4.2" /> <id nullFlavor="NA" /> <code codeSystem="local" code="GR% " displayName="GRANULOCYTE %" /> <statusCode code="completed" /> <effectiveTime value="614526670415" /> <value unit="%" xsi: type="PQ" value="62" /> <referenceRange> <observationRange> <text>50-75</text> </observationRange> </ referenceRange> </observation> </component> <component> <observation moodCode="EVN" classCode="OBS"> <templateId root= "216.840.1.973290.10.20.22.4.2" /> <id nullFlavor="NA" /> < code codeSystem="local" code="LY#" displayName="LYMPHOCYTE #" /> < statusCode code="completed" /> <effectiveTime value="784203495084" /> <value unit="k/cumm" xsi:type="PQ" value="1.9" /> < referenceRange> <observationRange> <text>1.0-4.0</text> </observationRange> </referenceRange> </observation > </component> <component> <observation moodCode="EVN" classCode="OBS"> <templateId root="16.840.1.806150.10.20.22.4.2" /> <id nullFlavor="NA" /> <code codeSystem="local" code="LY% " displayName="LYMPHOCYTE %" /> <statusCode code="completed" /> <effectiveTime value="188709330927" /> <value unit="%" xsi: type="PQ" value="25" /> <referenceRange> <observationRange> <text>20-30</text> </observationRange> </ referenceRange> </observation> </component> <component> <observation moodCode="EVN" classCode="OBS"> <templateId root= "07.12.840.1.382663.10.2022.4.2" /> <id nullFlavor="NA" /> < code codeSystem="local" code="MCH" displayName="MEAN CELL HGB" /> < statusCode code="completed" /> <effectiveTime value="339992554589" /> <value unit="pg" xsi:type="PQ" value="20.6" /> < interpretationCode codeSystem="local" code="*" /> <referenceRange> <observationRange> <text>27.0-33.0</text> </ observationRange> </referenceRange> </observation> </ component> <component> <observation moodCode="EVN" classCode="OBS"> <templateId root="07.12.840.1.305748.10.20.22.4.2" /> <id nullFlavor="NA" /> <code codeSystem="local" code="MCHC" displayName= "MEAN CELL HGB CONCENTRATION" /> <statusCode code="completed" /> <effectiveTime value="690177530531" /> <value unit="g/dL" xsi:type= "PQ" value="28.4" /> <interpretationCode codeSystem="local" code="*" / > <referenceRange> <observationRange> <text> 32.0-37.0</text> </observationRange> </referenceRange> </observation> </component> <component> <observation moodCode="EVN" classCode="OBS"> <templateId root= "16.840.1.034627.10..4.2" /> <id nullFlavor="NA" /> < code codeSystem="local" code="MCV" displayName="MEAN CELL VOLUME" /> < statusCode code="completed" /> <effectiveTime value="537404743981" /> <value unit="fl" xsi:type="PQ" value="72.4" /> < interpretationCode codeSystem="local" code="*" /> <referenceRange> <observationRange> <text>80.0-100.0</text> </ observationRange> </referenceRange> </observation> </ component> <component> <observation moodCode="EVN" classCode="OBS"> <templateId root="[id number]" /> <id nullFlavor="NA" /> <code codeSystem="local" code="MO#" displayName= "MONOCYTE #" /> <statusCode code="completed" /> < effectiveTime value="[id number]" /> <value unit="k/cumm" xsi:type="PQ " value="0.8" /> <referenceRange> <observationRange> <text>0.1-1.0</text> </observationRange> </ referenceRange> </observation> </component> <component> <observation moodCode="EVN" classCode="OBS"> <templateId root= "[id number]" /> <id nullFlavor="NA" /> < code codeSystem="local" code="MO%" displayName="MONOCYTE %" /> <statusCode code="completed" /> <effectiveTime value="" /> <value unit="%" xsi:type="PQ" value="10" /> < interpretationCode codeSystem="local" code="*" /> <referenceRange> <observationRange> <text>4-6</text> </ observationRange> </referenceRange> </observation> </ component> <component> <observation moodCode="EVN" classCode="OBS"> <templateId root="216.840.1.284542.03.15.22.4.2" /> <id nullFlavor="NA" /> <code codeSystem="local" code="OVAL" displayName= "OVALOCYTES" /> <statusCode code="completed" /> < effectiveTime value="" /> <value unit="" xsi:type="PQ" value="NOTED" /> <referenceRange> <observationRange> <text /> </observationRange> </referenceRange> </observation> </component> <component> <observation moodCode ="EVN" classCode="OBS"> <templateId root= "216.840.1.684398.03.15.22.4.2" /> <id nullFlavor="NA" /> < code codeSystem="local" code="POLC" displayName="POLYCHROMASIA" /> < statusCode code="completed" /> <effectiveTime value="" /> <value unit="" xsi:type="PQ" value="NOTED" /> <referenceRange > <observationRange> <text /> </ observationRange> </referenceRange> </observation> </ component> <component> <observation moodCode="EVN" classCode="OBS"> <templateId root="16.840.1.050461.10..22.4.2" /> <id nullFlavor="NA" /> <code codeSystem="local" code="RBC" displayName=" RED BLOOD CELL" /> <statusCode code="completed" /> < effectiveTime value="[id number]" /> <value unit="m/cumm" xsi:type="PQ " value="3.55" /> <interpretationCode codeSystem="local" code="*" /> <referenceRange> <observationRange> <text>4.00- 6.00</text> </observationRange> </referenceRange> </ observation> </component> <component> <observation moodCode= "EVN" classCode="OBS"> <templateId root="07.12.840.1.192855.10..4.2 " /> <id nullFlavor="NA" /> <code codeSystem="local" code="RDW " displayName="RED CELL DISTRIBUTION WIDTH" /> <statusCode code= "completed" /> <effectiveTime value="183150076361" /> <value unit="%" xsi:type="PQ" value="19.1" /> <interpretationCode codeSystem="local" code="*" /> <referenceRange> < observationRange> <text>11.0-15.6</text> </ observationRange> </referenceRange> </observation> </ component> <component> <observation moodCode="EVN" classCode="OBS"> <templateId root="07.12.840.1.287312.10..22.4.2" /> <id nullFlavor="NA" /> <code codeSystem="local" code="WBC" displayName= "WHITE BLOOD CELL" /> <statusCode code="completed" /> < effectiveTime value="905934237655" /> <value unit="k/cumm" xsi:type="PQ " value="7.5" /> <referenceRange> <observationRange> <text>5.0-10.0</text> </observationRange> </ referenceRange> </observation> </component> <component> <observation moodCode="EVN" classCode="OBS"> <templateId root= "216.840.1.179087.10..22.4.2" /> <id nullFlavor="NA" /> < code codeSystem="local" code="HGBT" displayName="HEMOGLOBIN" /> < statusCode code="completed" /> <effectiveTime value="188009683578" /> <value unit="gm/dL" xsi:type="PQ" value="7.3" /> < interpretationCode codeSystem="local" code="*" /> <referenceRange> <observationRange> <text>12.0-16.0</text> </ observationRange> </referenceRange> </observation> </ component> <component> <observation moodCode="EVN" classCode="OBS"> <templateId root="07.12.840.1.670557.03.15.22.4.2" /> <id nullFlavor="NA" /> <code codeSystem="local" code="HCTT" displayName= "HEMATOCRIT" /> <statusCode code="completed" /> < effectiveTime value="208548738940" /> <value unit="%" xsi:type="PQ " value="25.7" /> <interpretationCode codeSystem="local" code="*" /> <referenceRange> <observationRange> <text>37.0- 47.0</text> </observationRange> </referenceRange> </ observation> </component> <component> <observation moodCode= "EVN" classCode="OBS"> <templateId root="16.840.1.670450.22.4.2 " /> <id nullFlavor="NA" /> <code codeSystem="local" code="PLT " displayName="PLATELET COUNT" /> <statusCode code="completed" /> <effectiveTime value="385193577395" /> <value unit="k/cumm" xsi: type="PQ" value="196" /> <referenceRange> <observationRange > <text>150-400</text> </observationRange> </ referenceRange> </observation> </component> </organizer> </entry > <entry> <organizer moodCode="EVN" classCode="BATTERY"> <templateId root="216.840.1.686584.03.15.22.4.1" /> <id nullFlavor="NA" /> <code codeSystem="local" code="HBA1C" displayName="HEMOGLOBIN A1C" /> < statusCode code="completed" /> <component> <observation moodCode= "EVN" classCode="OBS"> <templateId root="216.840.1.571915.10...4.2 " /> <id nullFlavor="NA" /> <code codeSystem="local" code= "HBA1C" displayName="HEMOGLOBIN A1C" /> <statusCode code="completed" / > <effectiveTime value="466833582349" /> <value unit="%" xsi:type="PQ" value="5.8" /> <interpretationCode codeSystem="local" code="*" /> <referenceRange> <observationRange> <text>< 5.7</text> </observationRange> </referenceRange > </observation> </component> </organizer> </entry> <entry> <organizer moodCode="EVN" classCode="BATTERY"> <templateId root= "16.840.1.588945.03.15.22.4.1" /> <id nullFlavor="NA" /> <code codeSystem="local" code="METABC" displayName="METABOLIC PANEL, COMPREHN" /> <statusCode code="completed" /> <component> <observation moodCode= "EVN" classCode="OBS"> <templateId root="07.12.840.1.085990.10.4.2 " /> <id nullFlavor="NA" /> <code codeSystem="local" code="K" displayName="POTASSIUM" /> <statusCode code="completed" /> < effectiveTime value="344783552775" /> <value unit="mmol/L" xsi:type="PQ " value="4.1" /> <referenceRange> <observationRange> <text>3.5-5.3</text> </observationRange> </ referenceRange> </observation> </component> <component> <observation moodCode="EVN" classCode="OBS"> <templateId root= "840.1.889570.03.15.22.4.2" /> <id nullFlavor="NA" /> < code codeSystem="local" code="eGFR" displayName="EST GFR (MDRD)" /> < statusCode code="completed" /> <effectiveTime value="074443284562" /> <value unit="mL/min" xsi:type="PQ" value="> 60" /> < referenceRange> <observationRange> <text>> 59</text> </observationRange> </referenceRange> </observation > </component> <component> <observation moodCode="EVN" classCode="OBS"> <templateId root="07.12.840.1.681684.03.15.22.4.2" /> <id nullFlavor="NA" /> <code codeSystem="local" code="GAP" displayName="ANION GAP" /> <statusCode code="completed" /> < effectiveTime value="" /> <value unit="mmol/L" xsi:type="PQ " value="8" /> <referenceRange> <observationRange> <text>5-15</text> </observationRange> </referenceRange > </observation> </component> <component> <observation moodCode="EVN" classCode="OBS"> <templateId root= "16.840.1.530343.10..22.4.2" /> <id nullFlavor="NA" /> < code codeSystem="local" code="eCrCl" displayName="EST CrCl (CG)" /> < statusCode code="completed" /> <effectiveTime value="" /> <value unit="mL/min" xsi:type="PQ" value="> 60" /> < referenceRange> <observationRange> <text>> 59</text> </observationRange> </referenceRange> </observation > </component> <component> <observation moodCode="EVN" classCode="OBS"> <templateId root="07.12.840.1.206086.10...4.2" /> <id nullFlavor="NA" /> <code codeSystem="local" code="GLU" displayName="GLUCOSE" /> <statusCode code="completed" /> < effectiveTime value="" /> <value unit="mg/dL" xsi:type="PQ " value="84" /> <referenceRange> <observationRange> <text>70-99</text> </observationRange> </ referenceRange> </observation> </component> <component> <observation moodCode="EVN" classCode="OBS"> <templateId root= "07.12.840.1.289539.10...4.2" /> <id nullFlavor="NA" /> < code codeSystem="local" code="CA" displayName="CALCIUM" /> <statusCode code="completed" /> <effectiveTime value="" /> < value unit="mg/dL" xsi:type="PQ" value="8.1" /> <interpretationCode codeSystem="local" code="*" /> <referenceRange> < observationRange> <text>8.5-10.1</text> </ observationRange> </referenceRange> </observation> </ component> <component> <observation moodCode="EVN" classCode="OBS"> <templateId root="2.16.840.1.678215.03.15.22.4.2" /> <id nullFlavor="NA" /> <code codeSystem="local" code="BUN" displayName= "BLOOD UREA NITROGEN" /> <statusCode code="completed" /> < effectiveTime value="" /> <value unit="mg/dL" xsi:type="PQ " value="5" /> <interpretationCode codeSystem="local" code="*" /> <referenceRange> <observationRange> <text>7-20</ text> </observationRange> </referenceRange> </ observation> </component> <component> <observation moodCode= "EVN" classCode="OBS"> <templateId root="216.840.1.083522.03.15.22.4.2 " /> <id nullFlavor="NA" /> <code codeSystem="local" code= "CREAT" displayName="CREATININE" /> <statusCode code="completed" /> <effectiveTime value="" /> <value unit="mg/dL" xsi: type="PQ" value="0.7" /> <referenceRange> <observationRange > <text>0.6-1.0</text> </observationRange> </ referenceRange> </observation> </component> <component> <observation moodCode="EVN" classCode="OBS"> <templateId root= "216.840.1.347916.10.4.2" /> <id nullFlavor="NA" /> < code codeSystem="local" code="NA" displayName="SODIUM" /> <statusCode code="completed" /> <effectiveTime value="" /> < value unit="mmol/L" xsi:type="PQ" value="140" /> <referenceRange> <observationRange> <text>135-148</text> </ observationRange> </referenceRange> </observation> </ component> <component> <observation moodCode="EVN" classCode="OBS"> <templateId root="216.840.1.898155.03.15.22.4.2" /> <id nullFlavor="NA" /> <code codeSystem="local" code="CL" displayName= "CHLORIDE" /> <statusCode code="completed" /> <effectiveTime value="" /> <value unit="mmol/L" xsi:type="PQ" value="106" /> <referenceRange> <observationRange> <text>98 -110</text> </observationRange> </referenceRange> </ observation> </component> <component> <observation moodCode= "EVN" classCode="OBS"> <templateId root="216.840.1.290200.10.22.4.2 " /> <id nullFlavor="NA" /> <code codeSystem="local" code="AST " displayName="AST/SGOT" /> <statusCode code="completed" /> < effectiveTime value="" /> <value unit="Units/L" xsi:type= "PQ" value="20" /> <referenceRange> <observationRange> <text>10-37</text> </observationRange> </ referenceRange> </observation> </component> <component> <observation moodCode="EVN" classCode="OBS"> <templateId root= "216.840.1.841955.10.22.4.2" /> <id nullFlavor="NA" /> < code codeSystem="local" code="ALT" displayName="ALT/SGPT" /> < statusCode code="completed" /> <effectiveTime value="" /> <value unit="Units/L" xsi:type="PQ" value="23" /> < referenceRange> <observationRange> <text>< 66</text> </observationRange> </referenceRange> </observation > </component> <component> <observation moodCode="EVN" classCode="OBS"> <templateId root="07.12.840.1.288416.10..4.2" /> <id nullFlavor="NA" /> <code codeSystem="local" code="CO2" displayName="CARBON DIOXIDE" /> <statusCode code="completed" /> <effectiveTime value="" /> <value unit="mmol/L" xsi:type ="PQ" value="26" /> <referenceRange> <observationRange> <text>21-32</text> </observationRange> </ referenceRange> </observation> </component> <component> <observation moodCode="EVN" classCode="OBS"> <templateId root= "07.12.840.1.428294.10..4.2" /> <id nullFlavor="NA" /> < code codeSystem="local" code="TP" displayName="TOTAL PROTEIN" /> < statusCode code="completed" /> <effectiveTime value="" /> <value unit="gm/dL" xsi:type="PQ" value="6.1" /> < interpretationCode codeSystem="local" code="*" /> <referenceRange> <observationRange> <text>6.4-8.2</text> </ observationRange> </referenceRange> </observation> </ component> <component> <observation moodCode="EVN" classCode="OBS"> <templateId root="16.840.1.429875.10.20.22.4.2" /> <id nullFlavor="NA" /> <code codeSystem="local" code="ALB" displayName= "ALBUMIN" /> <statusCode code="completed" /> <effectiveTime value="" /> <value unit="gm/dL" xsi:type="PQ" value="2.9" / > <interpretationCode codeSystem="local" code="*" /> < referenceRange> <observationRange> <text>3.4-5.0</text> </observationRange> </referenceRange> </observation > </component> <component> <observation moodCode="EVN" classCode="OBS"> <templateId root="16.840.1.317450.10..22.4.2" /> <id nullFlavor="NA" /> <code codeSystem="local" code="BILTOT" displayName="BILI TOTAL" /> <statusCode code="completed" /> < effectiveTime value="131447555838" /> <value unit="mg/dL" xsi:type="PQ " value="0.3" /> <referenceRange> <observationRange> <text>0.0-1.0</text> </observationRange> </ referenceRange> </observation> </component> <component> <observation moodCode="EVN" classCode="OBS"> <templateId root= "216.840.1.497298.10..22.4.2" /> <id nullFlavor="NA" /> < code codeSystem="local" code="ALKP" displayName="ALKALINE PHOSPHATASE TOTAL" /> <statusCode code="completed" /> <effectiveTime value= "" /> <value unit="IU/L" xsi:type="PQ" value="89" /> <referenceRange> <observationRange> <text>45-117</ text> </observationRange> </referenceRange> </ observation> </component> </organizer> </entry> <entry> <organizer moodCode="EVN" classCode="BATTERY"> <templateId root= "216.840.1.403633.10...4.1" /> <id nullFlavor="NA" /> <code codeSystem="local" code="PHOS" displayName="PHOSPHORUS" /> <statusCode code ="completed" /> <component> <observation moodCode="EVN" classCode= "OBS"> <templateId root="216.840.1.746528.10...4.2" /> < id nullFlavor="NA" /> <code codeSystem="local" code="PHOS" displayName= "PHOSPHORUS" /> <statusCode code="completed" /> < effectiveTime value="402525328517" /> <value unit="mg/dL" xsi:type="PQ " value="3.5" /> <referenceRange> <observationRange> <text>2.5-4.9</text> </observationRange> </ referenceRange> </observation> </component> </organizer> </entry > <entry> <organizer moodCode="EVN" classCode="BATTERY"> <templateId root="16.840.1.340144.22.4.1" /> <id nullFlavor="NA" /> <code codeSystem="local" code="MAG" displayName="MAGNESIUM" /> <statusCode code= "completed" /> <component> <observation moodCode="EVN" classCode= "OBS"> <templateId root="16.840.1.186202.03.15.22.4.2" /> < id nullFlavor="NA" /> <code codeSystem="local" code="MAG" displayName= "MAGNESIUM" /> <statusCode code="completed" /> <effectiveTime value="016240745645" /> <value unit="mg/dL" xsi:type="PQ" value="1.6" / > <interpretationCode codeSystem="local" code="*" /> < referenceRange> <observationRange> <text>1.8-2.4</text> </observationRange> </referenceRange> </observation > </component> </organizer> </entry> <entry> <organizer moodCode= "EVN" classCode="BATTERY"> <templateId root="840.1.338424.03.15.22.4.1 " /> <id nullFlavor="NA" /> <code codeSystem="local" code="SPNAG" displayName="AG STREPTOCOCCUS PNEUMONIAE" /> <statusCode code="completed" / > <component> <observation moodCode="EVN" classCode="OBS"> <templateId root="07.12.840.1.596833.03.15.22.4.2" /> <id nullFlavor="NA " /> <code codeSystem="local" code="MB" displayName="Microbiology" /> <statusCode code="completed" /> <effectiveTime value= "411117988869" /> <value xsi:type="ST" value="<pre><b>AG STREPTOCOCCUS PNEUMONIAE</b> See BelowAG STREPTOCOCCUS PNEUMONIAE(F) Red Date/Time: 2013 07:30 Matty Date/Time: 02/22/2014 09:05SOURCE : URINESPEC DESC: RECEIPT OF A PNEUMOCOCCAL VACCINATION WITHIN 5 DAYS PRIOR TOURINE ANTIGEN TESTING MAY RESULT IN A FALSE POSITIVE TEST.STREPTOCOCCUS PNEUMONIAE (Abnormal)POSITIVE FOR STREPTOCOCCUS PNEUMONIAE (Abnormal)[facility] - [id number] [place] [address]</pre>" /> < referenceRange> <observationRange> <text /> < /observationRange> </referenceRange> </observation> </ component> </organizer> </entry> <entry> <organizer moodCode="EVN" classCode="BATTERY"> <templateId root="2.16.840.1.427448.10.20.22.4.1" /> <id nullFlavor="NA" /> <code codeSystem="local" code="GLUMON" displayName="GLUCOSE (POC)" /> <statusCode code="completed" /> < component> <observation moodCode="EVN" classCode="OBS"> < templateId root="2.16.840.1.235393.10.20.22.4.2" /> <id nullFlavor="NA " /> <code codeSystem="local" code="GLUMON" displayName="GLUCOSE (POC) " /> <statusCode code="completed" /> <effectiveTime value= "302354230233" /> <value unit="mg/dL" xsi:type="PQ" value="107" /> <interpretationCode codeSystem="local" code="*" /> < referenceRange> <observationRange> <text>70-99</text> </observationRange> </referenceRange> </observation> </component> </organizer> </entry> <entry> <organizer moodCode="EVN " classCode="BATTERY"> <templateId root="2.16.840.1.132840.10.20.22.4.1" / > <id nullFlavor="NA" /> <code codeSystem="local" code="GLUMON" displayName="GLUCOSE (POC)" /> <statusCode code="completed" /> < component> <observation moodCode="EVN" classCode="OBS"> < templateId root="16.840.1.674828.10..22.4.2" /> <id nullFlavor="NA " /> <code codeSystem="local" code="GLUMON" displayName="GLUCOSE (POC) " /> <statusCode code="completed" /> <effectiveTime value= "341367982643" /> <value unit="mg/dL" xsi:type="PQ" value="143" /> <interpretationCode codeSystem="local" code="*" /> < referenceRange> <observationRange> <text>70-99</text> </observationRange> </referenceRange> </observation> </component> </organizer> </entry> <entry> <organizer moodCode="EVN " classCode="BATTERY"> <templateId root="07.12.840.1.277360.10..4.1" / > <id nullFlavor="NA" /> <code codeSystem="local" code="GLUMON" displayName="GLUCOSE (POC)" /> <statusCode code="completed" /> < component> <observation moodCode="EVN" classCode="OBS"> < templateId root="07.12.840.1.801084.10..22.4.2" /> <id nullFlavor="NA " /> <code codeSystem="local" code="GLUMON" displayName="GLUCOSE (POC) " /> <statusCode code="completed" /> <effectiveTime value= "287544816159" /> <value unit="mg/dL" xsi:type="PQ" value="119" /> <interpretationCode codeSystem="local" code="*" /> < referenceRange> <observationRange> <text>70-99</text> </observationRange> </referenceRange> </observation> </component> </organizer> </entry> <entry> <organizer moodCode="EVN " classCode="BATTERY"> <templateId root="16.840.1.279271.03.15.22.4.1" / > <id nullFlavor="NA" /> <code codeSystem="local" code="METAB" displayName="METABOLIC PANEL, BASIC" /> <statusCode code="completed" /> <component> <observation moodCode="EVN" classCode="OBS"> < templateId root="07.12.840.1.946806.03.15.22.4.2" /> <id nullFlavor="NA " /> <code codeSystem="local" code="K" displayName="POTASSIUM" /> <statusCode code="completed" /> <effectiveTime value=" " /> <value unit="mmol/L" xsi:type="PQ" value="4.1" /> < referenceRange> <observationRange> <text>3.5-5.3</text> </observationRange> </referenceRange> </observation > </component> <component> <observation moodCode="EVN" classCode="OBS"> <templateId root="07.12.840.1.606830.03.15.22.4.2" /> <id nullFlavor="NA" /> <code codeSystem="local" code="eGFR" displayName="EST GFR (MDRD)" /> <statusCode code="completed" /> <effectiveTime value="639947156197" /> <value unit="mL/min" xsi:type ="PQ" value="> 60" /> <referenceRange> <observationRange > <text>> 59</text> </observationRange> </ referenceRange> </observation> </component> <component> <observation moodCode="EVN" classCode="OBS"> <templateId root= "216.840.1.376310.10...4.2" /> <id nullFlavor="NA" /> < code codeSystem="local" code="GAP" displayName="ANION GAP" /> < statusCode code="completed" /> <effectiveTime value="" /> <value unit="mmol/L" xsi:type="PQ" value="6" /> < referenceRange> <observationRange> <text>5-15</text> </observationRange> </referenceRange> </observation> </component> <component> <observation moodCode="EVN" classCode= "OBS"> <templateId root="216.840.1.424963.03.15.22.4.2" /> < id nullFlavor="NA" /> <code codeSystem="local" code="eCrCl" displayName ="EST CrCl (CG)" /> <statusCode code="completed" /> < effectiveTime value="" /> <value unit="mL/min" xsi:type="PQ " value="> 60" /> <referenceRange> <observationRange> <text>> 59</text> </observationRange> </ referenceRange> </observation> </component> <component> <observation moodCode="EVN" classCode="OBS"> <templateId root= "16.840.1.981999.10..22.4.2" /> <id nullFlavor="NA" /> < code codeSystem="local" code="GLU" displayName="GLUCOSE" /> < statusCode code="completed" /> <effectiveTime value="" /> <value unit="mg/dL" xsi:type="PQ" value="85" /> < referenceRange> <observationRange> <text>70-99</text> </observationRange> </referenceRange> </observation> </component> <component> <observation moodCode="EVN" classCode= "OBS"> <templateId root="16.840.1.297217.10.20.22.4.2" /> < id nullFlavor="NA" /> <code codeSystem="local" code="CA" displayName= "CALCIUM" /> <statusCode code="completed" /> <effectiveTime value="011122788716" /> <value unit="mg/dL" xsi:type="PQ" value="8.2" / > <interpretationCode codeSystem="local" code="*" /> < referenceRange> <observationRange> <text>8.5-10.1</text > </observationRange> </referenceRange> </observation > </component> <component> <observation moodCode="EVN" classCode="OBS"> <templateId root="840.1.893742.10..22.4.2" /> <id nullFlavor="NA" /> <code codeSystem="local" code="BUN" displayName="BLOOD UREA NITROGEN" /> <statusCode code="completed" /> <effectiveTime value="" /> <value unit="mg/dL" xsi: type="PQ" value="7" /> <referenceRange> <observationRange> <text>7-20</text> </observationRange> </ referenceRange> </observation> </component> <component> <observation moodCode="EVN" classCode="OBS"> <templateId root= "07.12.840.1.423136.10.20.22.4.2" /> <id nullFlavor="NA" /> < code codeSystem="local" code="CREAT" displayName="CREATININE" /> < statusCode code="completed" /> <effectiveTime value="" /> <value unit="mg/dL" xsi:type="PQ" value="0.6" /> < referenceRange> <observationRange> <text>0.6-1.0</text> </observationRange> </referenceRange> </observation > </component> <component> <observation moodCode="EVN" classCode="OBS"> <templateId root="216.840.1.050498.10.4.2" /> <id nullFlavor="NA" /> <code codeSystem="local" code="NA" displayName="SODIUM" /> <statusCode code="completed" /> < effectiveTime value="" /> <value unit="mmol/L" xsi:type="PQ " value="138" /> <referenceRange> <observationRange> <text>135-148</text> </observationRange> </ referenceRange> </observation> </component> <component> <observation moodCode="EVN" classCode="OBS"> <templateId root= "07.12.840.1.164943.03.15.22.4.2" /> <id nullFlavor="NA" /> < code codeSystem="local" code="CL" displayName="CHLORIDE" /> < statusCode code="completed" /> <effectiveTime value="" /> <value unit="mmol/L" xsi:type="PQ" value="102" /> < referenceRange> <observationRange> <text>98-110</text> </observationRange> </referenceRange> </observation> </component> <component> <observation moodCode="EVN" classCode ="OBS"> <templateId root="16.840.1.603463.10.22.4.2" /> < id nullFlavor="NA" /> <code codeSystem="local" code="CO2" displayName= "CARBON DIOXIDE" /> <statusCode code="completed" /> < effectiveTime value="414394322256" /> <value unit="mmol/L" xsi:type="PQ " value="30" /> <referenceRange> <observationRange> <text>21-32</text> </observationRange> </ referenceRange> </observation> </component> </organizer> </entry > <entry> <organizer moodCode="EVN" classCode="BATTERY"> <templateId root="16.840.1.328791.10.20.22.4.1" /> <id nullFlavor="NA" /> <code codeSystem="local" code="MAG" displayName="MAGNESIUM" /> <statusCode code= "completed" /> <component> <observation moodCode="EVN" classCode= "OBS"> <templateId root="07.12.840.1.500643.10..22.4.2" /> < id nullFlavor="NA" /> <code codeSystem="local" code="MAG" displayName= "MAGNESIUM" /> <statusCode code="completed" /> <effectiveTime value="010731681444" /> <value unit="mg/dL" xsi:type="PQ" value="1.7" / > <interpretationCode codeSystem="local" code="*" /> < referenceRange> <observationRange> <text>1.8-2.4</text> </observationRange> </referenceRange> </observation > </component> </organizer> </entry> <entry> <organizer moodCode= "EVN" classCode="BATTERY"> <templateId root="07.12.840.1.118752.10.20.22.4.1 " /> <id nullFlavor="NA" /> <code codeSystem="local" code="CBCD" displayName="CBC W/DIFF" /> <statusCode code="completed" /> <component > <observation moodCode="EVN" classCode="OBS"> <templateId root= "16.840.1.587921.03.15.22.4.2" /> <id nullFlavor="NA" /> < code codeSystem="local" code="EO#" displayName="EOSINOPHIL #" /> < statusCode code="completed" /> <effectiveTime value="" /> <value unit="k/cumm" xsi:type="PQ" value="0.2" /> < referenceRange> <observationRange> <text>0.1-0.5</text> </observationRange> </referenceRange> </observation > </component> <component> <observation moodCode="EVN" classCode="OBS"> <templateId root="07.12.840.1.259572.03.15.22.4.2" /> <id nullFlavor="NA" /> <code codeSystem="local" code="EO% " displayName="EOSINOPHIL %" /> <statusCode code="completed" /> <effectiveTime value="" /> <value unit="%" xsi: type="PQ" value="3" /> <referenceRange> <observationRange> <text>2-4</text> </observationRange> </ referenceRange> </observation> </component> <component> <observation moodCode="EVN" classCode="OBS"> <templateId root= "07.12.840.1.270718.03.15.22.4.2" /> <id nullFlavor="NA" /> < code codeSystem="local" code="GR#" displayName="GRANULOCYTE #" /> < statusCode code="completed" /> <effectiveTime value="302562824567" /> <value unit="k/cumm" xsi:type="PQ" value="4.1" /> < referenceRange> <observationRange> <text>2.0-9.0</text> </observationRange> </referenceRange> </observation > </component> <component> <observation moodCode="EVN" classCode="OBS"> <templateId root="16.840.1.626350.10...4.2" /> <id nullFlavor="NA" /> <code codeSystem="local" code="GR% " displayName="GRANULOCYTE %" /> <statusCode code="completed" /> <effectiveTime value="095726392832" /> <value unit="%" xsi: type="PQ" value="58" /> <referenceRange> <observationRange> <text>50-75</text> </observationRange> </ referenceRange> </observation> </component> <component> <observation moodCode="EVN" classCode="OBS"> <templateId root= "07.12.840.1.540113.03.15.22.4.2" /> <id nullFlavor="NA" /> < code codeSystem="local" code="LY#" displayName="LYMPHOCYTE #" /> < statusCode code="completed" /> <effectiveTime value="885382717346" /> <value unit="k/cumm" xsi:type="PQ" value="1.9" /> < referenceRange> <observationRange> <text>1.0-4.0</text> </observationRange> </referenceRange> </observation > </component> <component> <observation moodCode="EVN" classCode="OBS"> <templateId root="07.12.840.1.134402.10.20.22.4.2" /> <id nullFlavor="NA" /> <code codeSystem="local" code="LY% " displayName="LYMPHOCYTE %" /> <statusCode code="completed" /> <effectiveTime value="879720299227" /> <value unit="%" xsi: type="PQ" value="26" /> <referenceRange> <observationRange> <text>20-30</text> </observationRange> </ referenceRange> </observation> </component> <component> <observation moodCode="EVN" classCode="OBS"> <templateId root= "216.840.1.314334.10.20.22.4.2" /> <id nullFlavor="NA" /> < code codeSystem="local" code="MCH" displayName="MEAN CELL HGB" /> < statusCode code="completed" /> <effectiveTime value="050277776592" /> <value unit="pg" xsi:type="PQ" value="20.7" /> < interpretationCode codeSystem="local" code="*" /> <referenceRange> <observationRange> <text>27.0-33.0</text> </ observationRange> </referenceRange> </observation> </ component> <component> <observation moodCode="EVN" classCode="OBS"> <templateId root="216.840.1.410223.10.20.22.4.2" /> <id nullFlavor="NA" /> <code codeSystem="local" code="MCHC" displayName= "MEAN CELL HGB CONCENTRATION" /> <statusCode code="completed" /> <effectiveTime value="424035320173" /> <value unit="g/dL" xsi:type= "PQ" value="28.8" /> <interpretationCode codeSystem="local" code="*" / > <referenceRange> <observationRange> <text> 32.0-37.0</text> </observationRange> </referenceRange> </observation> </component> <component> <observation moodCode="EVN" classCode="OBS"> <templateId root= "16.840.1.341340.10.2022.4.2" /> <id nullFlavor="NA" /> < code codeSystem="local" code="MCV" displayName="MEAN CELL VOLUME" /> < statusCode code="completed" /> <effectiveTime value="" /> <value unit="fl" xsi:type="PQ" value="71.8" /> < interpretationCode codeSystem="local" code="*" /> <referenceRange> <observationRange> <text>80.0-100.0</text> </ observationRange> </referenceRange> </observation> </ component> <component> <observation moodCode="EVN" classCode="OBS"> <templateId root="840.1.424220.03.15.22.4.2" /> <id nullFlavor="NA" /> <code codeSystem="local" code="MO#" displayName= "MONOCYTE #" /> <statusCode code="completed" /> < effectiveTime value="" /> <value unit="k/cumm" xsi:type="PQ " value="0.9" /> <referenceRange> <observationRange> <text>0.1-1.0</text> </observationRange> </ referenceRange> </observation> </component> <component> <observation moodCode="EVN" classCode="OBS"> <templateId root= "07.12.840.1.911225.10.2022.4.2" /> <id nullFlavor="NA" /> < code codeSystem="local" code="MO%" displayName="MONOCYTE %" /> <statusCode code="completed" /> <effectiveTime value="" /> <value unit="%" xsi:type="PQ" value="12" /> < interpretationCode codeSystem="local" code="*" /> <referenceRange> <observationRange> <text>4-6</text> </ observationRange> </referenceRange> </observation> </ component> <component> <observation moodCode="EVN" classCode="OBS"> <templateId root="16.840.1.889469.03.15.22.4.2" /> <id nullFlavor="NA" /> <code codeSystem="local" code="OVAL" displayName= "OVALOCYTES" /> <statusCode code="completed" /> < effectiveTime value="" /> <value unit="" xsi:type="PQ" value="NOTED" /> <referenceRange> <observationRange> <text /> </observationRange> </referenceRange> </observation> </component> <component> <observation moodCode ="EVN" classCode="OBS"> <templateId root= "16.840.1.555395...4.2" /> <id nullFlavor="NA" /> < code codeSystem="local" code="RBC" displayName="RED BLOOD CELL" /> < statusCode code="completed" /> <effectiveTime value="" /> <value unit="m/cumm" xsi:type="PQ" value="3.62" /> < interpretationCode codeSystem="local" code="*" /> <referenceRange> <observationRange> <text>4.00-6.00</text> </ observationRange> </referenceRange> </observation> </ component> <component> <observation moodCode="EVN" classCode="OBS"> <templateId root="16.840.1.213903.03.15.224.2" /> <id nullFlavor="NA" /> <code codeSystem="local" code="RDW" displayName=" RED CELL DISTRIBUTION WIDTH" /> <statusCode code="completed" /> <effectiveTime value="" /> <value unit="%" xsi:type= "PQ" value="19.7" /> <interpretationCode codeSystem="local" code="*" / > <referenceRange> <observationRange> <text> 11.0-15.6</text> </observationRange> </referenceRange> </observation> </component> <component> <observation moodCode="EVN" classCode="OBS"> <templateId root= "216.840.1.747960.03.15.224.2" /> <id nullFlavor="NA" /> < code codeSystem="local" code="WBC" displayName="WHITE BLOOD CELL" /> < statusCode code="completed" /> <effectiveTime value="" /> <value unit="k/cumm" xsi:type="PQ" value="7.1" /> < referenceRange> <observationRange> <text>5.0-10.0</text > </observationRange> </referenceRange> </observation > </component> <component> <observation moodCode="EVN" classCode="OBS"> <templateId root="216.840.1.205284.03.15.224.2" /> <id nullFlavor="NA" /> <code codeSystem="local" code="HGBT" displayName="HEMOGLOBIN" /> <statusCode code="completed" /> < effectiveTime value="614466668865" /> <value unit="gm/dL" xsi:type="PQ " value="7.5" /> <interpretationCode codeSystem="local" code="*" /> <referenceRange> <observationRange> <text>12.0- 16.0</text> </observationRange> </referenceRange> </ observation> </component> <component> <observation moodCode= "EVN" classCode="OBS"> <templateId root="07.12.840.1.480621.10.20.22.4.2 " /> <id nullFlavor="NA" /> <code codeSystem="local" code= "HCTT" displayName="HEMATOCRIT" /> <statusCode code="completed" /> <effectiveTime value="256803804362" /> <value unit="%" xsi: type="PQ" value="26.0" /> <interpretationCode codeSystem="local" code= "*" /> <referenceRange> <observationRange> < text>37.0-47.0</text> </observationRange> </referenceRange> </observation> </component> <component> <observation moodCode="EVN" classCode="OBS"> <templateId root= "07.12.840.1.276589.10..4.2" /> <id nullFlavor="NA" /> < code codeSystem="local" code="PLT" displayName="PLATELET COUNT" /> < statusCode code="completed" /> <effectiveTime value="789137715190" /> <value unit="k/cumm" xsi:type="PQ" value="205" /> < referenceRange> <observationRange> <text>150-400</text> </observationRange> </referenceRange> </observation > </component> </organizer> </entry> <entry> <organizer moodCode= "EVN" classCode="BATTERY"> <templateId root="07.12.840.1.360037.10..22.4.1 " /> <id nullFlavor="NA" /> <code codeSystem="local" code="GLUMON" displayName="GLUCOSE (POC)" /> <statusCode code="completed" /> < component> <observation moodCode="EVN" classCode="OBS"> < templateId root="2.16.840.1.466904.10..22.4.2" /> <id nullFlavor="NA " /> <code codeSystem="local" code="GLUMON" displayName="GLUCOSE (POC) " /> <statusCode code="completed" /> <effectiveTime value= "288371444826" /> <value unit="mg/dL" xsi:type="PQ" value="85" /> <referenceRange> <observationRange> <text>70-99</ text> </observationRange> </referenceRange> </ observation> </component> </organizer> </entry> <entry> <organizer moodCode="EVN" classCode="BATTERY"> <templateId root= "2.16.840.1.057401.10..22.4.1" /> <id nullFlavor="NA" /> <code codeSystem="local" code="GLUMON" displayName="GLUCOSE (POC)" /> < statusCode code="completed" /> <component> <observation moodCode= "EVN" classCode="OBS"> <templateId root="2.16.840.1.443535.10.20.22.4.2 " /> <id nullFlavor="NA" /> <code codeSystem="local" code= "GLUMON" displayName="GLUCOSE (POC)" /> <statusCode code="completed" / > <effectiveTime value="990500315074" /> <value unit="mg/dL" xsi:type="PQ" value="136" /> <interpretationCode codeSystem="local" code="*" /> <referenceRange> <observationRange> <text>70-99</text> </observationRange> </referenceRange> </observation> </component> </organizer> </entry> <entry> < organizer moodCode="EVN" classCode="BATTERY"> <templateId root= "840.1.800718.10...4.1" /> <id nullFlavor="NA" /> <code codeSystem="local" code="GLUMON" displayName="GLUCOSE (POC)" /> < statusCode code="completed" /> <component> <observation moodCode= "EVN" classCode="OBS"> <templateId root="840.1.526063.03.15.22.4.2 " /> <id nullFlavor="NA" /> <code codeSystem="local" code= "GLUMON" displayName="GLUCOSE (POC)" /> <statusCode code="completed" / > <effectiveTime value="475779585384" /> <value unit="mg/dL" xsi:type="PQ" value="124" /> <interpretationCode codeSystem="local" code="*" /> <referenceRange> <observationRange> <text>70-99</text> </observationRange> </referenceRange> </observation> </component> </organizer> </entry> <entry> < organizer moodCode="EVN" classCode="BATTERY"> <templateId root= "840.1.356393.03.15.22.4.1" /> <id nullFlavor="NA" /> <code codeSystem="local" code="GLUMON" displayName="GLUCOSE (POC)" /> < statusCode code="completed" /> <component> <observation moodCode= "EVN" classCode="OBS"> <templateId root="840.1.840919.10...4.2 " /> <id nullFlavor="NA" /> <code codeSystem="local" code= "GLUMON" displayName="GLUCOSE (POC)" /> <statusCode code="completed" / > <effectiveTime value="317985253664" /> <value unit="mg/dL" xsi:type="PQ" value="93" /> <referenceRange> < observationRange> <text>70-99</text> </observationRange > </referenceRange> </observation> </component> </ organizer> </entry> <entry> <organizer moodCode="EVN" classCode="BATTERY"> <templateId root="216.840.1.933665.10..4.1" /> <id nullFlavor= "NA" /> <code codeSystem="local" code="CBCD" displayName="CBC W/DIFF" /> <statusCode code="completed" /> <component> <observation moodCode="EVN" classCode="OBS"> <templateId root= "216.840.1.743510.03.15.22.4.2" /> <id nullFlavor="NA" /> < code codeSystem="local" code="BA#" displayName="BASOPHIL #" /> < statusCode code="completed" /> <effectiveTime value="706763416211" /> <value unit="k/cumm" xsi:type="PQ" value="0.0" /> < referenceRange> <observationRange> <text>0.0-0.2</text> </observationRange> </referenceRange> </observation > </component> <component> <observation moodCode="EVN" classCode="OBS"> <templateId root="216.840.1.520224.10.4.2" /> <id nullFlavor="NA" /> <code codeSystem="local" code="BA% " displayName="BASOPHIL %" /> <statusCode code="completed" /> <effectiveTime value="684119154634" /> <value unit="%" xsi: type="PQ" value="1" /> <referenceRange> <observationRange> <text>0-1</text> </observationRange> </ referenceRange> </observation> </component> <component> <observation moodCode="EVN" classCode="OBS"> <templateId root= "07.12.840.1.942727.10.4.2" /> <id nullFlavor="NA" /> < code codeSystem="local" code="EO#" displayName="EOSINOPHIL #" /> < statusCode code="completed" /> <effectiveTime value="" /> <value unit="k/cumm" xsi:type="PQ" value="0.2" /> < referenceRange> <observationRange> <text>0.1-0.5</text> </observationRange> </referenceRange> </observation > </component> <component> <observation moodCode="EVN" classCode="OBS"> <templateId root="07.12.840.1.220355.03.15.22.4.2" /> <id nullFlavor="NA" /> <code codeSystem="local" code="EO% " displayName="EOSINOPHIL %" /> <statusCode code="completed" /> <effectiveTime value="" /> <value unit="%" xsi: type="PQ" value="5" /> <interpretationCode codeSystem="local" code="*" /> <referenceRange> <observationRange> <text>2- 4</text> </observationRange> </referenceRange> </ observation> </component> <component> <observation moodCode= "EVN" classCode="OBS"> <templateId root="07.12.840.1.524398.03.15.22.4.2 " /> <id nullFlavor="NA" /> <code codeSystem="local" code="GR# " displayName="GRANULOCYTE #" /> <statusCode code="completed" /> <effectiveTime value="442925265546" /> <value unit="k/cumm" xsi: type="PQ" value="1.7" /> <interpretationCode codeSystem="local" code="* " /> <referenceRange> <observationRange> <text> 2.0-9.0</text> </observationRange> </referenceRange> </observation> </component> <component> <observation moodCode= "EVN" classCode="OBS"> <templateId root="16.840.1.884490.03.15.22.4.2 " /> <id nullFlavor="NA" /> <code codeSystem="local" code="GR& #37;" displayName="GRANULOCYTE %" /> <statusCode code="completed" / > <effectiveTime value="" /> <value unit="%" xsi:type="PQ" value="39" /> <interpretationCode codeSystem="local" code ="*" /> <referenceRange> <observationRange> < text>50-75</text> </observationRange> </referenceRange> </observation> </component> <component> <observation moodCode="EVN" classCode="OBS"> <templateId root= "07.12.840.1.123399.10.4.2" /> <id nullFlavor="NA" /> < code codeSystem="local" code="LY#" displayName="LYMPHOCYTE #" /> < statusCode code="completed" /> <effectiveTime value="532209760797" /> <value unit="k/cumm" xsi:type="PQ" value="2.1" /> < referenceRange> <observationRange> <text>1.0-4.0</text> </observationRange> </referenceRange> </observation > </component> <component> <observation moodCode="EVN" classCode="OBS"> <templateId root="07.12.840.1.334894.10.22.4.2" /> <id nullFlavor="NA" /> <code codeSystem="local" code="LY% " displayName="LYMPHOCYTE %" /> <statusCode code="completed" /> <effectiveTime value="" /> <value unit="%" xsi: type="PQ" value="46" /> <interpretationCode codeSystem="local" code="* " /> <referenceRange> <observationRange> <text> 20-30</text> </observationRange> </referenceRange> </ observation> </component> <component> <observation moodCode= "EVN" classCode="OBS"> <templateId root="07.12.840.1.063516.1022.4.2 " /> <id nullFlavor="NA" /> <code codeSystem="local" code="MCH " displayName="MEAN CELL HGB" /> <statusCode code="completed" /> <effectiveTime value="101962918875" /> <value unit="pg" xsi:type= "PQ" value="20.9" /> <interpretationCode codeSystem="local" code="*" / > <referenceRange> <observationRange> <text> 27.0-33.0</text> </observationRange> </referenceRange> </observation> </component> <component> <observation moodCode="EVN" classCode="OBS"> <templateId root= "07.12.840.1.665064.10.2022.4.2" /> <id nullFlavor="NA" /> < code codeSystem="local" code="MCHC" displayName="MEAN CELL HGB CONCENTRATION" / > <statusCode code="completed" /> <effectiveTime value= "" /> <value unit="g/dL" xsi:type="PQ" value="28.5" /> <interpretationCode codeSystem="local" code="*" /> < referenceRange> <observationRange> <text>32.0-37.0</text > </observationRange> </referenceRange> </observation > </component> <component> <observation moodCode="EVN" classCode="OBS"> <templateId root="2.16.840.1.494341.10..22.4.2" /> <id nullFlavor="NA" /> <code codeSystem="local" code="MCV" displayName="MEAN CELL VOLUME" /> <statusCode code="completed" /> <effectiveTime value="" /> <value unit="fl" xsi:type= "PQ" value="73.1" /> <interpretationCode codeSystem="local" code="*" / > <referenceRange> <observationRange> <text> 80.0-100.0</text> </observationRange> </referenceRange> </observation> </component> <component> <observation moodCode="EVN" classCode="OBS"> <templateId root= "16.840.1.641196.10.20.22.4.2" /> <id nullFlavor="NA" /> < code codeSystem="local" code="MO#" displayName="MONOCYTE #" /> < statusCode code="completed" /> <effectiveTime value="" /> <value unit="k/cumm" xsi:type="PQ" value="0.4" /> < referenceRange> <observationRange> <text>0.1-1.0</text> </observationRange> </referenceRange> </observation > </component> <component> <observation moodCode="EVN" classCode="OBS"> <templateId root="216.840.1.675458.10..4.2" /> <id nullFlavor="NA" /> <code codeSystem="local" code="MO% " displayName="MONOCYTE %" /> <statusCode code="completed" /> <effectiveTime value="" /> <value unit="%" xsi: type="PQ" value="10" /> <interpretationCode codeSystem="local" code="* " /> <referenceRange> <observationRange> <text> 4-6</text> </observationRange> </referenceRange> </ observation> </component> <component> <observation moodCode= "EVN" classCode="OBS"> <templateId root="07.12.840.1.001229.03.15.224.2 " /> <id nullFlavor="NA" /> <code codeSystem="local" code= "OVAL" displayName="OVALOCYTES" /> <statusCode code="completed" /> <effectiveTime value="" /> <value unit="" xsi:type= "PQ" value="NOTED" /> <referenceRange> <observationRange> <text /> </observationRange> </referenceRange> </observation> </component> <component> <observation moodCode="EVN" classCode="OBS"> <templateId root= "16.840.1.451853.10.4.2" /> <id nullFlavor="NA" /> < code codeSystem="local" code="POLC" displayName="POLYCHROMASIA" /> < statusCode code="completed" /> <effectiveTime value="" /> <value unit="" xsi:type="PQ" value="NOTED" /> <referenceRange > <observationRange> <text /> </ observationRange> </referenceRange> </observation> </ component> <component> <observation moodCode="EVN" classCode="OBS"> <templateId root="07.12.840.1.528136.10.2022.4.2" /> <id nullFlavor="NA" /> <code codeSystem="local" code="RBC" displayName=" RED BLOOD CELL" /> <statusCode code="completed" /> < effectiveTime value="" /> <value unit="m/cumm" xsi:type="PQ " value="3.50" /> <interpretationCode codeSystem="local" code="*" /> <referenceRange> <observationRange> <text>4.00- 6.00</text> </observationRange> </referenceRange> </ observation> </component> <component> <observation moodCode= "EVN" classCode="OBS"> <templateId root="07.12.840.1.373486.1022.4.2 " /> <id nullFlavor="NA" /> <code codeSystem="local" code="RDW " displayName="RED CELL DISTRIBUTION WIDTH" /> <statusCode code= "completed" /> <effectiveTime value="" /> <value unit="%" xsi:type="PQ" value="20.0" /> <interpretationCode codeSystem="local" code="*" /> <referenceRange> < observationRange> <text>11.0-15.6</text> </ observationRange> </referenceRange> </observation> </ component> <component> <observation moodCode="EVN" classCode="OBS"> <templateId root="07.12.840.1.256740.10.20.22.4.2" /> <id nullFlavor="NA" /> <code codeSystem="local" code="WBC" displayName= "WHITE BLOOD CELL" /> <statusCode code="completed" /> < effectiveTime value="" /> <value unit="k/cumm" xsi:type="PQ " value="4.5" /> <interpretationCode codeSystem="local" code="*" /> <referenceRange> <observationRange> <text>5.0- 10.0</text> </observationRange> </referenceRange> </ observation> </component> <component> <observation moodCode= "EVN" classCode="OBS"> <templateId root="2.16.840.1.553986.10..22.4.2 " /> <id nullFlavor="NA" /> <code codeSystem="local" code= "HGBT" displayName="HEMOGLOBIN" /> <statusCode code="completed" /> <effectiveTime value="" /> <value unit="gm/dL" xsi: type="PQ" value="7.3" /> <interpretationCode codeSystem="local" code="* " /> <referenceRange> <observationRange> <text> 12.0-16.0</text> </observationRange> </referenceRange> </observation> </component> <component> <observation moodCode="EVN" classCode="OBS"> <templateId root= "2.16.840.1.577019.10.20.22.4.2" /> <id nullFlavor="NA" /> < code codeSystem="local" code="HCTT" displayName="HEMATOCRIT" /> < statusCode code="completed" /> <effectiveTime value="" /> <value unit="%" xsi:type="PQ" value="25.6" /> < interpretationCode codeSystem="local" code="*" /> <referenceRange> <observationRange> <text>37.0-47.0</text> </ observationRange> </referenceRange> </observation> </ component> <component> <observation moodCode="EVN" classCode="OBS"> <templateId root="16.840.1.768030.22.4.2" /> <id nullFlavor="NA" /> <code codeSystem="local" code="PLT" displayName= "PLATELET COUNT" /> <statusCode code="completed" /> < effectiveTime value="130669886325" /> <value unit="k/cumm" xsi:type="PQ " value="211" /> <referenceRange> <observationRange> <text>150-400</text> </observationRange> </ referenceRange> </observation> </component> </organizer> </entry > <entry> <organizer moodCode="EVN" classCode="BATTERY"> <templateId root="16.840.1.223692.10..22.4.1" /> <id nullFlavor="NA" /> <code codeSystem="local" code="METAB" displayName="METABOLIC PANEL, BASIC" /> < statusCode code="completed" /> <component> <observation moodCode= "EVN" classCode="OBS"> <templateId root="16.840.1.038547.10..22.4.2 " /> <id nullFlavor="NA" /> <code codeSystem="local" code="K" displayName="POTASSIUM" /> <statusCode code="completed" /> < effectiveTime value="121581929492" /> <value unit="mmol/L" xsi:type="PQ " value="3.9" /> <referenceRange> <observationRange> <text>3.5-5.3</text> </observationRange> </ referenceRange> </observation> </component> <component> <observation moodCode="EVN" classCode="OBS"> <templateId root= "07.12.840.1.863884.10..22.4.2" /> <id nullFlavor="NA" /> < code codeSystem="local" code="eGFR" displayName="EST GFR (MDRD)" /> < statusCode code="completed" /> <effectiveTime value="" /> <value unit="mL/min" xsi:type="PQ" value="> 60" /> < referenceRange> <observationRange> <text>> 59</text> </observationRange> </referenceRange> </observation > </component> <component> <observation moodCode="EVN" classCode="OBS"> <templateId root="07.12.840.1.953857....4.2" /> <id nullFlavor="NA" /> <code codeSystem="local" code="GAP" displayName="ANION GAP" /> <statusCode code="completed" /> < effectiveTime value="" /> <value unit="mmol/L" xsi:type="PQ " value="9" /> <referenceRange> <observationRange> <text>5-15</text> </observationRange> </referenceRange > </observation> </component> <component> <observation moodCode="EVN" classCode="OBS"> <templateId root= "07.12.840.1.894723.10..22.4.2" /> <id nullFlavor="NA" /> < code codeSystem="local" code="eCrCl" displayName="EST CrCl (CG)" /> < statusCode code="completed" /> <effectiveTime value="" /> <value unit="mL/min" xsi:type="PQ" value="> 60" /> < referenceRange> <observationRange> <text>> 59</text> </observationRange> </referenceRange> </observation > </component> <component> <observation moodCode="EVN" classCode="OBS"> <templateId root="216.840.1.962548.1022.4.2" /> <id nullFlavor="NA" /> <code codeSystem="local" code="GLU" displayName="GLUCOSE" /> <statusCode code="completed" /> < effectiveTime value="" /> <value unit="mg/dL" xsi:type="PQ " value="110" /> <interpretationCode codeSystem="local" code="*" /> <referenceRange> <observationRange> <text>70-99</ text> </observationRange> </referenceRange> </ observation> </component> <component> <observation moodCode= "EVN" classCode="OBS"> <templateId root="07.12.840.1.640590.03.15.22.4.2 " /> <id nullFlavor="NA" /> <code codeSystem="local" code="CA " displayName="CALCIUM" /> <statusCode code="completed" /> < effectiveTime value="" /> <value unit="mg/dL" xsi:type="PQ " value="8.6" /> <referenceRange> <observationRange> <text>8.5-10.1</text> </observationRange> </ referenceRange> </observation> </component> <component> <observation moodCode="EVN" classCode="OBS"> <templateId root= "07.12.840.1.224304.03.15.22.4.2" /> <id nullFlavor="NA" /> < code codeSystem="local" code="BUN" displayName="BLOOD UREA NITROGEN" /> <statusCode code="completed" /> <effectiveTime value="" / > <value unit="mg/dL" xsi:type="PQ" value="9" /> < referenceRange> <observationRange> <text>7-20</text> </observationRange> </referenceRange> </observation> </component> <component> <observation moodCode="EVN" classCode= "OBS"> <templateId root="216.840.1.314309.03.15.22.4.2" /> < id nullFlavor="NA" /> <code codeSystem="local" code="CREAT" displayName ="CREATININE" /> <statusCode code="completed" /> < effectiveTime value="" /> <value unit="mg/dL" xsi:type="PQ " value="0.8" /> <referenceRange> <observationRange> <text>0.6-1.0</text> </observationRange> </ referenceRange> </observation> </component> <component> <observation moodCode="EVN" classCode="OBS"> <templateId root= "16.840.1.533242.03.15.22.4.2" /> <id nullFlavor="NA" /> < code codeSystem="local" code="NA" displayName="SODIUM" /> <statusCode code="completed" /> <effectiveTime value="" /> < value unit="mmol/L" xsi:type="PQ" value="138" /> <referenceRange> <observationRange> <text>135-148</text> </ observationRange> </referenceRange> </observation> </ component> <component> <observation moodCode="EVN" classCode="OBS"> <templateId root="16.840.1.194497..22.4.2" /> <id nullFlavor="NA" /> <code codeSystem="local" code="CL" displayName= "CHLORIDE" /> <statusCode code="completed" /> <effectiveTime value="" /> <value unit="mmol/L" xsi:type="PQ" value="101" /> <referenceRange> <observationRange> <text>98 -110</text> </observationRange> </referenceRange> </ observation> </component> <component> <observation moodCode= "EVN" classCode="OBS"> <templateId root="16.840.1.527477.10..4.2 " /> <id nullFlavor="NA" /> <code codeSystem="local" code="CO2 " displayName="CARBON DIOXIDE" /> <statusCode code="completed" /> <effectiveTime value="" /> <value unit="mmol/L" xsi: type="PQ" value="28" /> <referenceRange> <observationRange> <text>21-32</text> </observationRange> </ referenceRange> </observation> </component> </organizer> </entry > <entry> <organizer moodCode="EVN" classCode="BATTERY"> <templateId root="16.840.1.081086.10...4.1" /> <id nullFlavor="NA" /> <code codeSystem="local" code="GLUMON" displayName="GLUCOSE (POC)" /> < statusCode code="completed" /> <component> <observation moodCode= "EVN" classCode="OBS"> <templateId root="16.840.1.258926.10...4.2 " /> <id nullFlavor="NA" /> <code codeSystem="local" code= "GLUMON" displayName="GLUCOSE (POC)" /> <statusCode code="completed" / > <effectiveTime value="[id number]" /> <value unit="mg/dL" xsi:type="PQ" value="84" /> <referenceRange> < observationRange> <text>70-99</text> </observationRange > </referenceRange> </observation> </component> </ organizer> </entry> <entry> <organizer moodCode="EVN" classCode="BATTERY"> <templateId root="07.12.840.1.496245.10..22.4.1" /> <id nullFlavor= "NA" /> <code codeSystem="local" code="GLUMON" displayName="GLUCOSE (POC)" /> <statusCode code="completed" /> <component> <observation moodCode="EVN" classCode="OBS"> <templateId root= "07.12.840.1.601923.10..22.4.2" /> <id nullFlavor="NA" /> < code codeSystem="local" code="GLUMON" displayName="GLUCOSE (POC)" /> < statusCode code="completed" /> <effectiveTime value="[id number]" /> <value unit="mg/dL" xsi:type="PQ" value="136" /> < interpretationCode codeSystem="local" code="*" /> <referenceRange> <observationRange> <text>70-99</text> </ observationRange> </referenceRange> </observation> </ component> </organizer> </entry> <entry> <organizer moodCode="EVN" classCode="BATTERY"> <templateId root="07.12.840.1.729508.10..22.4.1" /> <id nullFlavor="NA" /> <code codeSystem="local" code="GLUMON" displayName="GLUCOSE (POC)" /> <statusCode code="completed" /> < component> <observation moodCode="EVN" classCode="OBS"> < templateId root="07.12.840.1.033181.10.20.22.4.2" /> <id nullFlavor="NA " /> <code codeSystem="local" code="GLUMON" displayName="GLUCOSE (POC) " /> <statusCode code="completed" /> <effectiveTime value= "" /> <value unit="mg/dL" xsi:type="PQ" value="111" /> <interpretationCode codeSystem="local" code="*" /> < referenceRange> <observationRange> <text>70-99</text> </observationRange> </referenceRange> </observation> </component> </organizer> </entry> <entry> <organizer moodCode="EVN " classCode="BATTERY"> <templateId root="2.16.840.1.125441.10.20.22.4.1" / > <id nullFlavor="NA" /> <code codeSystem="local" code="GLUMON" displayName="GLUCOSE (POC)" /> <statusCode code="completed" /> < component> <observation moodCode="EVN" classCode="OBS"> < templateId root="2.16.840.1.812666.10.20.22.4.2" /> <id nullFlavor="NA " /> <code codeSystem="local" code="GLUMON" displayName="GLUCOSE (POC) " /> <statusCode code="completed" /> <effectiveTime value= "" /> <value unit="mg/dL" xsi:type="PQ" value="102" /> <interpretationCode codeSystem="local" code="*" /> < referenceRange> <observationRange> <text>70-99</text> </observationRange> </referenceRange> </observation> </component> </organizer> </entry> <entry> <organizer moodCode="EVN " classCode="BATTERY"> <templateId root="07.12.840.1.996526.10..4.1" / > <id nullFlavor="NA" /> <code codeSystem="local" code="CBCD" displayName="CBC W/DIFF" /> <statusCode code="completed" /> <component > <observation moodCode="EVN" classCode="OBS"> <templateId root= "840.1.738722.03.15.224.2" /> <id nullFlavor="NA" /> < code codeSystem="local" code="BA#" displayName="BASOPHIL #" /> < statusCode code="completed" /> <effectiveTime value="" /> <value unit="k/cumm" xsi:type="PQ" value="0.0" /> < referenceRange> <observationRange> <text>0.0-0.2</text> </observationRange> </referenceRange> </observation > </component> <component> <observation moodCode="EVN" classCode="OBS"> <templateId root="840.1.200406.03.15.224.2" /> <id nullFlavor="NA" /> <code codeSystem="local" code="BA% " displayName="BASOPHIL %" /> <statusCode code="completed" /> <effectiveTime value="" /> <value unit="%" xsi: type="PQ" value="1" /> <referenceRange> <observationRange> <text>0-1</text> </observationRange> </ referenceRange> </observation> </component> <component> <observation moodCode="EVN" classCode="OBS"> <templateId root= "07.12.840.1.155632.03.15.22.4.2" /> <id nullFlavor="NA" /> < code codeSystem="local" code="EO#" displayName="EOSINOPHIL #" /> < statusCode code="completed" /> <effectiveTime value="" /> <value unit="k/cumm" xsi:type="PQ" value="0.2" /> < referenceRange> <observationRange> <text>0.1-0.5</text> </observationRange> </referenceRange> </observation > </component> <component> <observation moodCode="EVN" classCode="OBS"> <templateId root="2.16.840.1.695808...4.2" /> <id nullFlavor="NA" /> <code codeSystem="local" code="EO% " displayName="EOSINOPHIL %" /> <statusCode code="completed" /> <effectiveTime value="" /> <value unit="%" xsi: type="PQ" value="4" /> <referenceRange> <observationRange> <text>2-4</text> </observationRange> </ referenceRange> </observation> </component> <component> <observation moodCode="EVN" classCode="OBS"> <templateId root= "2.16.840.1.461458....4.2" /> <id nullFlavor="NA" /> < code codeSystem="local" code="GR#" displayName="GRANULOCYTE #" /> < statusCode code="completed" /> <effectiveTime value="" /> <value unit="k/cumm" xsi:type="PQ" value="1.9" /> < interpretationCode codeSystem="local" code="*" /> <referenceRange> <observationRange> <text>2.0-9.0</text> </ observationRange> </referenceRange> </observation> </ component> <component> <observation moodCode="EVN" classCode="OBS"> <templateId root="216.840.1.065435.10..4.2" /> <id nullFlavor="NA" /> <code codeSystem="local" code="GR%" displayName= "GRANULOCYTE %" /> <statusCode code="completed" /> < effectiveTime value="" /> <value unit="%" xsi:type="PQ " value="43" /> <interpretationCode codeSystem="local" code="*" /> <referenceRange> <observationRange> <text>50-75</ text> </observationRange> </referenceRange> </ observation> </component> <component> <observation moodCode= "EVN" classCode="OBS"> <templateId root="07.12.840.1.944563.03.15.224.2 " /> <id nullFlavor="NA" /> <code codeSystem="local" code="LY# " displayName="LYMPHOCYTE #" /> <statusCode code="completed" /> <effectiveTime value="" /> <value unit="k/cumm" xsi:type ="PQ" value="1.9" /> <referenceRange> <observationRange> <text>1.0-4.0</text> </observationRange> </ referenceRange> </observation> </component> <component> <observation moodCode="EVN" classCode="OBS"> <templateId root= "216.840.1.994362.22.4.2" /> <id nullFlavor="NA" /> < code codeSystem="local" code="LY%" displayName="LYMPHOCYTE %" /> <statusCode code="completed" /> <effectiveTime value="" /> <value unit="%" xsi:type="PQ" value="42" /> < interpretationCode codeSystem="local" code="*" /> <referenceRange> <observationRange> <text>20-30</text> </ observationRange> </referenceRange> </observation> </ component> <component> <observation moodCode="EVN" classCode="OBS"> <templateId root="216.840.1.253152.10..22.4.2" /> <id nullFlavor="NA" /> <code codeSystem="local" code="MCH" displayName= "MEAN CELL HGB" /> <statusCode code="completed" /> < effectiveTime value="" /> <value unit="pg" xsi:type="PQ" value="20.4" /> <interpretationCode codeSystem="local" code="*" /> <referenceRange> <observationRange> <text>27.0- 33.0</text> </observationRange> </referenceRange> </ observation> </component> <component> <observation moodCode= "EVN" classCode="OBS"> <templateId root="216.840.1.956526.10.20.22.4.2 " /> <id nullFlavor="NA" /> <code codeSystem="local" code= "MCHC" displayName="MEAN CELL HGB CONCENTRATION" /> <statusCode code= "completed" /> <effectiveTime value="" /> <value unit="g/dL" xsi:type="PQ" value="27.9" /> <interpretationCode codeSystem="local" code="*" /> <referenceRange> < observationRange> <text>32.0-37.0</text> </ observationRange> </referenceRange> </observation> </ component> <component> <observation moodCode="EVN" classCode="OBS"> <templateId root="216.840.1.836603.10..4.2" /> <id nullFlavor="NA" /> <code codeSystem="local" code="MCV" displayName= "MEAN CELL VOLUME" /> <statusCode code="completed" /> < effectiveTime value="" /> <value unit="fl" xsi:type="PQ" value="73.1" /> <interpretationCode codeSystem="local" code="*" /> <referenceRange> <observationRange> <text>80.0- 100.0</text> </observationRange> </referenceRange> </ observation> </component> <component> <observation moodCode= "EVN" classCode="OBS"> <templateId root="07.12.840.1.448661.03.15.22.4.2 " /> <id nullFlavor="NA" /> <code codeSystem="local" code="MO# " displayName="MONOCYTE #" /> <statusCode code="completed" /> <effectiveTime value="" /> <value unit="k/cumm" xsi:type= "PQ" value="0.5" /> <referenceRange> <observationRange> <text>0.1-1.0</text> </observationRange> </ referenceRange> </observation> </component> <component> <observation moodCode="EVN" classCode="OBS"> <templateId root= "216.840.1.081391.10..4.2" /> <id nullFlavor="NA" /> < code codeSystem="local" code="MO%" displayName="MONOCYTE %" /> <statusCode code="completed" /> <effectiveTime value="" /> <value unit="%" xsi:type="PQ" value="10" /> < interpretationCode codeSystem="local" code="*" /> <referenceRange> <observationRange> <text>4-6</text> </ observationRange> </referenceRange> </observation> </ component> <component> <observation moodCode="EVN" classCode="OBS"> <templateId root="07.12.840.1.543384.22.4.2" /> <id nullFlavor="NA" /> <code codeSystem="local" code="OVAL" displayName= "OVALOCYTES" /> <statusCode code="completed" /> < effectiveTime value="" /> <value unit="" xsi:type="PQ" value="NOTED" /> <referenceRange> <observationRange> <text /> </observationRange> </referenceRange> </observation> </component> <component> <observation moodCode ="EVN" classCode="OBS"> <templateId root= "07.12.840.1.613786.03.15.22.4.2" /> <id nullFlavor="NA" /> < code codeSystem="local" code="POLC" displayName="POLYCHROMASIA" /> < statusCode code="completed" /> <effectiveTime value="" /> <value unit="" xsi:type="PQ" value="NOTED" /> <referenceRange > <observationRange> <text /> </ observationRange> </referenceRange> </observation> </ component> <component> <observation moodCode="EVN" classCode="OBS"> <templateId root="07.12.840.1.853260.03.15.22.4.2" /> <id nullFlavor="NA" /> <code codeSystem="local" code="RBC" displayName=" RED BLOOD CELL" /> <statusCode code="completed" /> < effectiveTime value="" /> <value unit="m/cumm" xsi:type="PQ " value="3.72" /> <interpretationCode codeSystem="local" code="*" /> <referenceRange> <observationRange> <text>4.00- 6.00</text> </observationRange> </referenceRange> </ observation> </component> <component> <observation moodCode= "EVN" classCode="OBS"> <templateId root="216.840.1.960646.10...4.2 " /> <id nullFlavor="NA" /> <code codeSystem="local" code="RDW " displayName="RED CELL DISTRIBUTION WIDTH" /> <statusCode code= "completed" /> <effectiveTime value="" /> <value unit="%" xsi:type="PQ" value="19.8" /> <interpretationCode codeSystem="local" code="*" /> <referenceRange> < observationRange> <text>11.0-15.6</text> </ observationRange> </referenceRange> </observation> </ component> <component> <observation moodCode="EVN" classCode="OBS"> <templateId root="16.840.1.976687.10..22.4.2" /> <id nullFlavor="NA" /> <code codeSystem="local" code="WBC" displayName= "WHITE BLOOD CELL" /> <statusCode code="completed" /> < effectiveTime value="" /> <value unit="k/cumm" xsi:type="PQ " value="4.4" /> <interpretationCode codeSystem="local" code="*" /> <referenceRange> <observationRange> <text>5.0- 10.0</text> </observationRange> </referenceRange> </ observation> </component> <component> <observation moodCode= "EVN" classCode="OBS"> <templateId root="16.840.1.255459.1022.4.2 " /> <id nullFlavor="NA" /> <code codeSystem="local" code= "HGBT" displayName="HEMOGLOBIN" /> <statusCode code="completed" /> <effectiveTime value="" /> <value unit="gm/dL" xsi: type="PQ" value="7.6" /> <interpretationCode codeSystem="local" code="* " /> <referenceRange> <observationRange> <text> 12.0-16.0</text> </observationRange> </referenceRange> </observation> </component> <component> <observation moodCode="EVN" classCode="OBS"> <templateId root= "07.12.840.1.050073.03.15.22.4.2" /> <id nullFlavor="NA" /> < code codeSystem="local" code="HCTT" displayName="HEMATOCRIT" /> < statusCode code="completed" /> <effectiveTime value="" /> <value unit="%" xsi:type="PQ" value="27.2" /> < interpretationCode codeSystem="local" code="*" /> <referenceRange> <observationRange> <text>37.0-47.0</text> </ observationRange> </referenceRange> </observation> </ component> <component> <observation moodCode="EVN" classCode="OBS"> <templateId root="07.12.840.1.583356.22.4.2" /> <id nullFlavor="NA" /> <code codeSystem="local" code="PLT" displayName= "PLATELET COUNT" /> <statusCode code="completed" /> < effectiveTime value="[id number]" /> <value unit="k/cumm" xsi:type="PQ " value="240" /> <referenceRange> <observationRange> <text>150-400</text> </observationRange> </ referenceRange> </observation> </component> </organizer> </entry > <entry> <organizer moodCode="EVN" classCode="BATTERY"> <templateId root="216.840.1.605982.10..22.4.1" /> <id nullFlavor="NA" /> <code codeSystem="local" code="GLUMON" displayName="GLUCOSE (POC)" /> < statusCode code="completed" /> <component> <observation moodCode= "EVN" classCode="OBS"> <templateId root="216.840.1.442184.10..22.4.2 " /> <id nullFlavor="NA" /> <code codeSystem="local" code= "GLUMON" displayName="GLUCOSE (POC)" /> <statusCode code="completed" / > <effectiveTime value="601320802889" /> <value unit="mg/dL" xsi:type="PQ" value="95" /> <referenceRange> < observationRange> <text>70-99</text> </observationRange > </referenceRange> </observation> </component> </ organizer> </entry> <entry> <organizer moodCode="EVN" classCode="BATTERY"> <templateId root="2.16.840.1.060476.10..22.4.1" /> <id nullFlavor= "NA" /> <code codeSystem="local" code="GLUMON" displayName="GLUCOSE (POC)" /> <statusCode code="completed" /> <component> <observation moodCode="EVN" classCode="OBS"> <templateId root= "216.840.1.961694.10..22.4.2" /> <id nullFlavor="NA" /> < code codeSystem="local" code="GLUMON" displayName="GLUCOSE (POC)" /> < statusCode code="completed" /> <effectiveTime value="419808465249" /> <value unit="mg/dL" xsi:type="PQ" value="112" /> < interpretationCode codeSystem="local" code="*" /> <referenceRange> <observationRange> <text>70-99</text> </ observationRange> </referenceRange> </observation> </ component> </organizer> </entry> <entry> <organizer moodCode="EVN" classCode="BATTERY"> <templateId root="2.16.840.1.478430.10..22.4.1" /> <id nullFlavor="NA" /> <code codeSystem="local" code="UA" displayName= "URINALYSIS, ROUTINE" /> <statusCode code="completed" /> <component> <observation moodCode="EVN" classCode="OBS"> <templateId root= "2.16.840.1.115530.10.20.22.4.2" /> <id nullFlavor="NA" /> < code codeSystem="local" code="LEUESU" displayName="UA LEUKOCYTE ESTERASE DIPSTICK" /> <statusCode code="completed" /> <effectiveTime value="758463989361" /> <value unit="" xsi:type="PQ" value="TRACE" /> <interpretationCode codeSystem="local" code="*" /> < referenceRange> <observationRange> <text>NEGATIVE</text > </observationRange> </referenceRange> </observation > </component> <component> <observation moodCode="EVN" classCode="OBS"> <templateId root="216.840.1.138473.10..4.2" /> <id nullFlavor="NA" /> <code codeSystem="local" code="NITRIU" displayName="UA NITRITE DIPSTICK" /> <statusCode code="completed" /> <effectiveTime value="" /> <value unit="" xsi:type= "PQ" value="NEGATIVE" /> <referenceRange> <observationRange > <text>NEGATIVE</text> </observationRange> </ referenceRange> </observation> </component> <component> <observation moodCode="EVN" classCode="OBS"> <templateId root= "16.840.1.762364.03.15.22.4.2" /> <id nullFlavor="NA" /> < code codeSystem="local" code="PROTEIU" displayName="UA PROTEIN DIPSTICK" /> <statusCode code="completed" /> <effectiveTime value= "" /> <value unit="" xsi:type="PQ" value="NEGATIVE" /> <referenceRange> <observationRange> <text>NEGATIVE </text> </observationRange> </referenceRange> </ observation> </component> <component> <observation moodCode= "EVN" classCode="OBS"> <templateId root="07.12.840.1.245426.10.4.2 " /> <id nullFlavor="NA" /> <code codeSystem="local" code= "DGLUU" displayName="UA GLUCOSE DIPSTICK" /> <statusCode code= "completed" /> <effectiveTime value="" /> <value unit="" xsi:type="PQ" value="NEGATIVE" /> <referenceRange> < observationRange> <text>NEGATIVE</text> </ observationRange> </referenceRange> </observation> </ component> <component> <observation moodCode="EVN" classCode="OBS"> <templateId root="216.840.1.918332.10..4.2" /> <id nullFlavor="NA" /> <code codeSystem="local" code="KETONU" displayName= "UA KETONE DIPSTICK" /> <statusCode code="completed" /> < effectiveTime value="" /> <value unit="" xsi:type="PQ" value="NEGATIVE" /> <referenceRange> <observationRange> <text>NEGATIVE</text> </observationRange> </ referenceRange> </observation> </component> <component> <observation moodCode="EVN" classCode="OBS"> <templateId root= "216.840.1.719917...4.2" /> <id nullFlavor="NA" /> < code codeSystem="local" code="UROBILU" displayName="UA UROBILINOGEN DIPSTICK" / > <statusCode code="completed" /> <effectiveTime value= "" /> <value unit="" xsi:type="PQ" value="NORMAL" /> <referenceRange> <observationRange> <text>NORMAL</ text> </observationRange> </referenceRange> </ observation> </component> <component> <observation moodCode= "EVN" classCode="OBS"> <templateId root="16.840.1.711451.10..4.2 " /> <id nullFlavor="NA" /> <code codeSystem="local" code= "BILU" displayName="UA BILIRUBIN DIPSTICK" /> <statusCode code= "completed" /> <effectiveTime value="" /> <value unit="" xsi:type="PQ" value="NEGATIVE" /> <referenceRange> < observationRange> <text>NEGATIVE</text> </ observationRange> </referenceRange> </observation> </ component> <component> <observation moodCode="EVN" classCode="OBS"> <templateId root="07.12.840.1.348888.10..22.4.2" /> <id nullFlavor="NA" /> <code codeSystem="local" code="LON" displayName="UA BLOOD DIPSTICK" /> <statusCode code="completed" /> < effectiveTime value="" /> <value unit="" xsi:type="PQ" value="4+" /> <interpretationCode codeSystem="local" code="*" /> <referenceRange> <observationRange> <text>NEGATIVE</ text> </observationRange> </referenceRange> </ observation> </component> <component> <observation moodCode= "EVN" classCode="OBS"> <templateId root="07.12.840.1.742780.10..4.2 " /> <id nullFlavor="NA" /> <code codeSystem="local" code= "SPGRU" displayName="UA SPECIFIC GRAVITY" /> <statusCode code= "completed" /> <effectiveTime value="" /> <value unit="" xsi:type="PQ" value="1.011" /> <interpretationCode codeSystem= "local" code="*" /> <referenceRange> <observationRange> <text>1.015-1.025</text> </observationRange> </ referenceRange> </observation> </component> <component> <observation moodCode="EVN" classCode="OBS"> <templateId root= "07.12.840.1.221352.10...4.2" /> <id nullFlavor="NA" /> < code codeSystem="local" code="WILLOW" displayName="UR PH" /> <statusCode code="completed" /> <effectiveTime value="098998603647" /> < value unit="" xsi:type="PQ" value="7.0" /> <referenceRange> <observationRange> <text>5.0-7.0</text> </ observationRange> </referenceRange> </observation> </ component> </organizer> </entry> <entry> <organizer moodCode="EVN" classCode="BATTERY"> <templateId root="07.12.840.1.509323...4.1" /> <id nullFlavor="NA" /> <code codeSystem="local" code="UAMICRO" displayName="UA MICROSCOPIC" /> <statusCode code="completed" /> < component> <observation moodCode="EVN" classCode="OBS"> < templateId root="07.12.840.1.890729.03.15.22.4.2" /> <id nullFlavor="NA " /> <code codeSystem="local" code="EPIU" displayName="UA EPITHELIAL CELLS" /> <statusCode code="completed" /> <effectiveTime value ="005672364750" /> <value unit="epi/hpf" xsi:type="PQ" value="2+" /> <interpretationCode codeSystem="local" code="*" /> < referenceRange> <observationRange> <text>0 - 1+</text> </observationRange> </referenceRange> </observation> </component> <component> <observation moodCode="EVN" classCode ="OBS"> <templateId root="07.12.840.1.683819.03.15.22.4.2" /> < id nullFlavor="NA" /> <code codeSystem="local" code="MUCUSU" displayName="UA MUCUS" /> <statusCode code="completed" /> < effectiveTime value="" /> <value unit="" xsi:type="PQ" value="1+" /> <referenceRange> <observationRange> <text>NEG TO 1+</text> </observationRange> </ referenceRange> </observation> </component> <component> <observation moodCode="EVN" classCode="OBS"> <templateId root= "216.840.1.975722...4.2" /> <id nullFlavor="NA" /> < code codeSystem="local" code="RBCU" displayName="UA RBC" /> < statusCode code="completed" /> <effectiveTime value="" /> <value unit="rbc/hpf" xsi:type="PQ" value="PACKED FIELD" /> < interpretationCode codeSystem="local" code="*" /> <referenceRange> <observationRange> <text>0 - 3</text> </ observationRange> </referenceRange> </observation> </ component> <component> <observation moodCode="EVN" classCode="OBS"> <templateId root="16.840.1.302180.10.4.2" /> <id nullFlavor="NA" /> <code codeSystem="local" code="UAVOL" displayName= "UA VOLUME FOR EXAM" /> <statusCode code="completed" /> < effectiveTime value="" /> <value unit="mL" xsi:type="PQ" value="12.0" /> <referenceRange> <observationRange> <text>(12mL STD)</text> </observationRange> </ referenceRange> </observation> </component> <component> <observation moodCode="EVN" classCode="OBS"> <templateId root= "216.840.1.908440.03.15.22.4.2" /> <id nullFlavor="NA" /> < code codeSystem="local" code="WBCU" displayName="UA WBC" /> < statusCode code="completed" /> <effectiveTime value="932569615089" /> <value unit="wbc/hpf" xsi:type="PQ" value="0-1" /> < referenceRange> <observationRange> <text>0 - 5</text> </observationRange> </referenceRange> </observation> </component> </organizer> </entry> <entry> <organizer moodCode="EVN " classCode="BATTERY"> <templateId root="216.840.1.594512.03.15.22.4.1" / > <id nullFlavor="NA" /> <code codeSystem="local" code="GLUMON" displayName="GLUCOSE (POC)" /> <statusCode code="completed" /> < component> <observation moodCode="EVN" classCode="OBS"> < templateId root="216.840.1.817829...4.2" /> <id nullFlavor="NA " /> <code codeSystem="local" code="GLUMON" displayName="GLUCOSE (POC) " /> <statusCode code="completed" /> <effectiveTime value= "069099543364" /> <value unit="mg/dL" xsi:type="PQ" value="102" /> <interpretationCode codeSystem="local" code="*" /> < referenceRange> <observationRange> <text>70-99</text> </observationRange> </referenceRange> </observation> </component> </organizer> </entry> <entry> <organizer moodCode="EVN " classCode="BATTERY"> <templateId root="216.840.1.806037.03.15.22.4.1" / > <id nullFlavor="NA" /> <code codeSystem="local" code="GLUMON" displayName="GLUCOSE (POC)" /> <statusCode code="completed" /> < component> <observation moodCode="EVN" classCode="OBS"> < templateId root="07.12.840.1.771325.10..22.4.2" /> <id nullFlavor="NA " /> <code codeSystem="local" code="GLUMON" displayName="GLUCOSE (POC) " /> <statusCode code="completed" /> <effectiveTime value= "[id number]" /> <value unit="mg/dL" xsi:type="PQ" value="84" /> <referenceRange> <observationRange> <text>70-99</ text> </observationRange> </referenceRange> </ observation> </component> </organizer> </entry> <entry> <organizer moodCode="EVN" classCode="BATTERY"> <templateId root= "840.1.420242.10..22.4.1" /> <id nullFlavor="NA" /> <code codeSystem="local" code="GLUMON" displayName="GLUCOSE (POC)" /> < statusCode code="completed" /> <component> <observation moodCode= "EVN" classCode="OBS"> <templateId root="840.1.499759.10..22.4.2 " /> <id nullFlavor="NA" /> <code codeSystem="local" code= "GLUMON" displayName="GLUCOSE (POC)" /> <statusCode code="completed" / > <effectiveTime value="[id number]" /> <value unit="mg/dL" xsi:type="PQ" value="73" /> <referenceRange> < observationRange> <text>70-99</text> </observationRange > </referenceRange> </observation> </component> </ organizer> </entry> <entry> <organizer moodCode="EVN" classCode="BATTERY"> <templateId root="07.12.840.1.299935.03.15.22.4.1" /> <id nullFlavor= "NA" /> <code codeSystem="local" code="GLUMON" displayName="GLUCOSE (POC)" /> <statusCode code="completed" /> <component> <observation moodCode="EVN" classCode="OBS"> <templateId root= "840.1.648933.03.15.22.4.2" /> <id nullFlavor="NA" /> < code codeSystem="local" code="GLUMON" displayName="GLUCOSE (POC)" /> < statusCode code="completed" /> <effectiveTime value="[id number]" /> <value unit="mg/dL" xsi:type="PQ" value="353" /> < interpretationCode codeSystem="local" code="*" /> <referenceRange> <observationRange> <text>70-99</text> </ observationRange> </referenceRange> </observation> </ component> </organizer> </entry> <entry> <organizer moodCode="EVN" classCode="BATTERY"> <templateId root="840.1.816428.03.15.22.4.1" /> <id nullFlavor="NA" /> <code codeSystem="local" code="GLUMON" displayName="GLUCOSE (POC)" /> <statusCode code="completed" /> < component> <observation moodCode="EVN" classCode="OBS"> < templateId root="07.12.840.1.486155.1022.4.2" /> <id nullFlavor="NA " /> <code codeSystem="local" code="GLUMON" displayName="GLUCOSE (POC) " /> <statusCode code="completed" /> <effectiveTime value= "304357271967" /> <value unit="mg/dL" xsi:type="PQ" value="82" /> <referenceRange> <observationRange> <text>70-99</ text> </observationRange> </referenceRange> </ observation> </component> </organizer> </entry> <entry> <organizer moodCode="EVN" classCode="BATTERY"> <templateId root= "216.840.1.551386.10..22.4.1" /> <id nullFlavor="NA" /> <code codeSystem="local" code="UA" displayName="URINALYSIS, ROUTINE" /> < statusCode code="completed" /> <component> <observation moodCode= "EVN" classCode="OBS"> <templateId root="216.840.1.955401.10...4.2 " /> <id nullFlavor="NA" /> <code codeSystem="local" code= "LEUESU" displayName="UA LEUKOCYTE ESTERASE DIPSTICK" /> <statusCode code="completed" /> <effectiveTime value="535116501481" /> < value unit="" xsi:type="PQ" value="NEGATIVE" /> <referenceRange> <observationRange> <text>NEGATIVE</text> </ observationRange> </referenceRange> </observation> </ component> <component> <observation moodCode="EVN" classCode="OBS"> <templateId root="216.840.1.253725.10...4.2" /> <id nullFlavor="NA" /> <code codeSystem="local" code="NITRIU" displayName= "UA NITRITE DIPSTICK" /> <statusCode code="completed" /> < effectiveTime value="" /> <value unit="" xsi:type="PQ" value="NEGATIVE" /> <referenceRange> <observationRange> <text>NEGATIVE</text> </observationRange> </ referenceRange> </observation> </component> <component> <observation moodCode="EVN" classCode="OBS"> <templateId root= "07.12.840.1.897003.10.4.2" /> <id nullFlavor="NA" /> < code codeSystem="local" code="PROTEIU" displayName="UA PROTEIN DIPSTICK" /> <statusCode code="completed" /> <effectiveTime value= "" /> <value unit="" xsi:type="PQ" value="NEGATIVE" /> <referenceRange> <observationRange> <text>NEGATIVE </text> </observationRange> </referenceRange> </ observation> </component> <component> <observation moodCode= "EVN" classCode="OBS"> <templateId root="840.1.869708.03.15.22.4.2 " /> <id nullFlavor="NA" /> <code codeSystem="local" code= "DGLUU" displayName="UA GLUCOSE DIPSTICK" /> <statusCode code= "completed" /> <effectiveTime value="" /> <value unit="" xsi:type="PQ" value="NEGATIVE" /> <referenceRange> < observationRange> <text>NEGATIVE</text> </ observationRange> </referenceRange> </observation> </ component> <component> <observation moodCode="EVN" classCode="OBS"> <templateId root="840.1.652947.1022.4.2" /> <id nullFlavor="NA" /> <code codeSystem="local" code="KETONU" displayName= "UA KETONE DIPSTICK" /> <statusCode code="completed" /> < effectiveTime value="" /> <value unit="" xsi:type="PQ" value="NEGATIVE" /> <referenceRange> <observationRange> <text>NEGATIVE</text> </observationRange> </ referenceRange> </observation> </component> <component> <observation moodCode="EVN" classCode="OBS"> <templateId root= "16.840.1.441691.03.15.22.4.2" /> <id nullFlavor="NA" /> < code codeSystem="local" code="UROBILU" displayName="UA UROBILINOGEN DIPSTICK" / > <statusCode code="completed" /> <effectiveTime value= "" /> <value unit="" xsi:type="PQ" value="NORMAL" /> <referenceRange> <observationRange> <text>NORMAL</ text> </observationRange> </referenceRange> </ observation> </component> <component> <observation moodCode= "EVN" classCode="OBS"> <templateId root="07.12.840.1.897395.10.4.2 " /> <id nullFlavor="NA" /> <code codeSystem="local" code= "BILU" displayName="UA BILIRUBIN DIPSTICK" /> <statusCode code= "completed" /> <effectiveTime value="" /> <value unit="" xsi:type="PQ" value="NEGATIVE" /> <referenceRange> < observationRange> <text>NEGATIVE</text> </ observationRange> </referenceRange> </observation> </ component> <component> <observation moodCode="EVN" classCode="OBS"> <templateId root="16.840.1.864192.1022.4.2" /> <id nullFlavor="NA" /> <code codeSystem="local" code="LON" displayName="UA BLOOD DIPSTICK" /> <statusCode code="completed" /> < effectiveTime value="" /> <value unit="" xsi:type="PQ" value="2+" /> <referenceRange> <observationRange> <text>NEGATIVE</text> </observationRange> </ referenceRange> </observation> </component> <component> <observation moodCode="EVN" classCode="OBS"> <templateId root= "16.840.1.275985.10..22.4.2" /> <id nullFlavor="NA" /> < code codeSystem="local" code="COMU" displayName="UA COMMENT" /> < statusCode code="completed" /> <effectiveTime value="" /> <value unit="" xsi:type="PQ" value="" /> <referenceRange> <observationRange> <text /> </ observationRange> </referenceRange> </observation> </ component> <component> <observation moodCode="EVN" classCode="OBS"> <templateId root="16.840.1.544412.10.20.22.4.2" /> <id nullFlavor="NA" /> <code codeSystem="local" code="SPGRU" displayName= "UA SPECIFIC GRAVITY" /> <statusCode code="completed" /> < effectiveTime value="" /> <value unit="" xsi:type="PQ" value="1.001" /> <interpretationCode codeSystem="local" code="*" /> <referenceRange> <observationRange> <text>1.015- 1.025</text> </observationRange> </referenceRange> </ observation> </component> <component> <observation moodCode= "EVN" classCode="OBS"> <templateId root="2.16.840.1.946484.10..4.2 " /> <id nullFlavor="NA" /> <code codeSystem="local" code="WILLOW " displayName="UR PH" /> <statusCode code="completed" /> < effectiveTime value="527603447097" /> <value unit="" xsi:type="PQ" value="7.0" /> <referenceRange> <observationRange> <text>5.0-7.0</text> </observationRange> </ referenceRange> </observation> </component> </organizer> </entry > <entry> <organizer moodCode="EVN" classCode="BATTERY"> <templateId root="216.840.1.338198.10..4.1" /> <id nullFlavor="NA" /> <code codeSystem="local" code="PREGU" displayName="UR TEST" /> < statusCode code="completed" /> <component> <observation moodCode= "EVN" classCode="OBS"> <templateId root="216.840.1.852214...4.2 " /> <id nullFlavor="NA" /> <code codeSystem="local" code= "PREGU" displayName="UR TEST" /> <statusCode code="completed " /> <effectiveTime value="330638125658" /> <value unit="" xsi :type="PQ" value="NEGATIVE" /> <referenceRange> < observationRange> <text>NEGATIVE</text> </ observationRange> </referenceRange> </observation> </ component> </organizer> </entry> <entry> <organizer moodCode="EVN" classCode="BATTERY"> <templateId root="216.840.1.082576.03.15.22.4.1" /> <id nullFlavor="NA" /> <code codeSystem="local" code="UAMICRO" displayName="UA MICROSCOPIC" /> <statusCode code="completed" /> < component> <observation moodCode="EVN" classCode="OBS"> < templateId root="07.12.840.1.863650.10...4.2" /> <id nullFlavor="NA " /> <code codeSystem="local" code="EPIU" displayName="UA EPITHELIAL CELLS" /> <statusCode code="completed" /> <effectiveTime value ="499877768743" /> <value unit="epi/hpf" xsi:type="PQ" value="3+" /> <interpretationCode codeSystem="local" code="*" /> < referenceRange> <observationRange> <text>0 - 1+</text> </observationRange> </referenceRange> </observation> </component> <component> <observation moodCode="EVN" classCode ="OBS"> <templateId root="840.1.467894...4.2" /> < id nullFlavor="NA" /> <code codeSystem="local" code="MUCUSU" displayName="UA MUCUS" /> <statusCode code="completed" /> < effectiveTime value="443551517281" /> <value unit="" xsi:type="PQ" value="2+" /> <interpretationCode codeSystem="local" code="*" /> <referenceRange> <observationRange> <text>NEG TO 1+< /text> </observationRange> </referenceRange> </ observation> </component> <component> <observation moodCode= "EVN" classCode="OBS"> <templateId root="07.12.840.1.164510.10...4.2 " /> <id nullFlavor="NA" /> <code codeSystem="local" code= "RBCU" displayName="UA RBC" /> <statusCode code="completed" /> <effectiveTime value="" /> <value unit="rbc/hpf" xsi:type ="PQ" value="0-3" /> <referenceRange> <observationRange> <text>0 - 3</text> </observationRange> </ referenceRange> </observation> </component> <component> <observation moodCode="EVN" classCode="OBS"> <templateId root= "2.16.840.1.383361.10..22.4.2" /> <id nullFlavor="NA" /> < code codeSystem="local" code="UAVOL" displayName="UA VOLUME FOR EXAM" /> <statusCode code="completed" /> <effectiveTime value="" /> <value unit="mL" xsi:type="PQ" value="12.0" /> < referenceRange> <observationRange> <text>(12mL STD)</ text> </observationRange> </referenceRange> </ observation> </component> <component> <observation moodCode= "EVN" classCode="OBS"> <templateId root="2.16.840.1.125951.10..22.4.2 " /> <id nullFlavor="NA" /> <code codeSystem="local" code= "WBCU" displayName="UA WBC" /> <statusCode code="completed" /> <effectiveTime value="166455933543" /> <value unit="wbc/hpf" xsi:type ="PQ" value="0-1" /> <referenceRange> <observationRange> <text>0 - 5</text> </observationRange> </ referenceRange> </observation> </component> </organizer> </entry > <entry> <organizer moodCode="EVN" classCode="BATTERY"> <templateId root="2.840.1.436590.10..4.1" /> <id nullFlavor="NA" /> <code codeSystem="local" code="CBCD" displayName="CBC W/DIFF" /> <statusCode code ="completed" /> <component> <observation moodCode="EVN" classCode= "OBS"> <templateId root="840.1.148016.03.15.224.2" /> < id nullFlavor="NA" /> <code codeSystem="local" code="BA#" displayName= "BASOPHIL #" /> <statusCode code="completed" /> < effectiveTime value="752960860631" /> <value unit="k/cumm" xsi:type="PQ " value="0.0" /> <referenceRange> <observationRange> <text>0.0-0.2</text> </observationRange> </ referenceRange> </observation> </component> <component> <observation moodCode="EVN" classCode="OBS"> <templateId root= "840.1.899880.03.15.22.4.2" /> <id nullFlavor="NA" /> < code codeSystem="local" code="BA%" displayName="BASOPHIL %" /> <statusCode code="completed" /> <effectiveTime value="466876845880" /> <value unit="%" xsi:type="PQ" value="1" /> < referenceRange> <observationRange> <text>0-1</text> </observationRange> </referenceRange> </observation> </component> <component> <observation moodCode="EVN" classCode= "OBS"> <templateId root="16.840.1.708273.03.15.22.4.2" /> < id nullFlavor="NA" /> <code codeSystem="local" code="EO#" displayName= "EOSINOPHIL #" /> <statusCode code="completed" /> < effectiveTime value="" /> <value unit="k/cumm" xsi:type="PQ " value="0.2" /> <referenceRange> <observationRange> <text>0.1-0.5</text> </observationRange> </ referenceRange> </observation> </component> <component> <observation moodCode="EVN" classCode="OBS"> <templateId root= "2.16.840.1.633457.10..4.2" /> <id nullFlavor="NA" /> < code codeSystem="local" code="EO%" displayName="EOSINOPHIL %" /> <statusCode code="completed" /> <effectiveTime value="" /> <value unit="%" xsi:type="PQ" value="2" /> < referenceRange> <observationRange> <text>2-4</text> </observationRange> </referenceRange> </observation> </component> <component> <observation moodCode="EVN" classCode= "OBS"> <templateId root="2.16.840.1.908568.10..4.2" /> < id nullFlavor="NA" /> <code codeSystem="local" code="GR#" displayName= "GRANULOCYTE #" /> <statusCode code="completed" /> < effectiveTime value="" /> <value unit="k/cumm" xsi:type="PQ " value="4.3" /> <referenceRange> <observationRange> <text>2.0-9.0</text> </observationRange> </ referenceRange> </observation> </component> <component> <observation moodCode="EVN" classCode="OBS"> <templateId root= "16.840.1.809519.10..22.4.2" /> <id nullFlavor="NA" /> < code codeSystem="local" code="GR%" displayName="GRANULOCYTE %" /> <statusCode code="completed" /> <effectiveTime value=" " /> <value unit="%" xsi:type="PQ" value="57" /> < referenceRange> <observationRange> <text>50-75</text> </observationRange> </referenceRange> </observation> </component> <component> <observation moodCode="EVN" classCode= "OBS"> <templateId root="16.840.1.504720...4.2" /> < id nullFlavor="NA" /> <code codeSystem="local" code="LY#" displayName= "LYMPHOCYTE #" /> <statusCode code="completed" /> < effectiveTime value="" /> <value unit="k/cumm" xsi:type="PQ " value="2.3" /> <referenceRange> <observationRange> <text>1.0-4.0</text> </observationRange> </ referenceRange> </observation> </component> <component> <observation moodCode="EVN" classCode="OBS"> <templateId root= "16.840.1.400183.10.2022.4.2" /> <id nullFlavor="NA" /> < code codeSystem="local" code="LY%" displayName="LYMPHOCYTE %" /> <statusCode code="completed" /> <effectiveTime value="329503091191" /> <value unit="%" xsi:type="PQ" value="30" /> < referenceRange> <observationRange> <text>20-30</text> </observationRange> </referenceRange> </observation> </component> <component> <observation moodCode="EVN" classCode= "OBS"> <templateId root="216.840.1.893837.10.20.22.4.2" /> < id nullFlavor="NA" /> <code codeSystem="local" code="MCH" displayName= "MEAN CELL HGB" /> <statusCode code="completed" /> < effectiveTime value="625121113336" /> <value unit="pg" xsi:type="PQ" value="19.8" /> <interpretationCode codeSystem="local" code="*" /> <referenceRange> <observationRange> <text>27.0- 33.0</text> </observationRange> </referenceRange> </ observation> </component> <component> <observation moodCode= "EVN" classCode="OBS"> <templateId root="07.12.840.1.795310.10.22.4.2 " /> <id nullFlavor="NA" /> <code codeSystem="local" code= "MCHC" displayName="MEAN CELL HGB CONCENTRATION" /> <statusCode code= "completed" /> <effectiveTime value="754509013000" /> <value unit="g/dL" xsi:type="PQ" value="26.3" /> <interpretationCode codeSystem="local" code="*" /> <referenceRange> < observationRange> <text>32.0-37.0</text> </ observationRange> </referenceRange> </observation> </ component> <component> <observation moodCode="EVN" classCode="OBS"> <templateId root="216.840.1.753719.10.20.22.4.2" /> <id nullFlavor="NA" /> <code codeSystem="local" code="MCV" displayName= "MEAN CELL VOLUME" /> <statusCode code="completed" /> < effectiveTime value="" /> <value unit="fl" xsi:type="PQ" value="75.3" /> <interpretationCode codeSystem="local" code="*" /> <referenceRange> <observationRange> <text>80.0- 100.0</text> </observationRange> </referenceRange> </ observation> </component> <component> <observation moodCode= "EVN" classCode="OBS"> <templateId root="2.16.840.1.224259.03.15.22.4.2 " /> <id nullFlavor="NA" /> <code codeSystem="local" code="MO# " displayName="MONOCYTE #" /> <statusCode code="completed" /> <effectiveTime value="" /> <value unit="k/cumm" xsi:type= "PQ" value="0.8" /> <referenceRange> <observationRange> <text>0.1-1.0</text> </observationRange> </ referenceRange> </observation> </component> <component> <observation moodCode="EVN" classCode="OBS"> <templateId root= "216.840.1.799997.10.22.4.2" /> <id nullFlavor="NA" /> < code codeSystem="local" code="MO%" displayName="MONOCYTE %" /> <statusCode code="completed" /> <effectiveTime value="" /> <value unit="%" xsi:type="PQ" value="11" /> < interpretationCode codeSystem="local" code="*" /> <referenceRange> <observationRange> <text>4-6</text> </ observationRange> </referenceRange> </observation> </ component> <component> <observation moodCode="EVN" classCode="OBS"> <templateId root="16.840.1.492203.03.15.22.4.2" /> <id nullFlavor="NA" /> <code codeSystem="local" code="OVAL" displayName= "OVALOCYTES" /> <statusCode code="completed" /> < effectiveTime value="" /> <value unit="" xsi:type="PQ" value="NOTED" /> <referenceRange> <observationRange> <text /> </observationRange> </referenceRange> </observation> </component> <component> <observation moodCode ="EVN" classCode="OBS"> <templateId root= "07.12.840.1.726491.03.15.224.2" /> <id nullFlavor="NA" /> < code codeSystem="local" code="RBC" displayName="RED BLOOD CELL" /> < statusCode code="completed" /> <effectiveTime value="" /> <value unit="m/cumm" xsi:type="PQ" value="3.69" /> < interpretationCode codeSystem="local" code="*" /> <referenceRange> <observationRange> <text>4.00-6.00</text> </ observationRange> </referenceRange> </observation> </ component> <component> <observation moodCode="EVN" classCode="OBS"> <templateId root="07.12.840.1.184781.03.15.22.4.2" /> <id nullFlavor="NA" /> <code codeSystem="local" code="RDW" displayName=" RED CELL DISTRIBUTION WIDTH" /> <statusCode code="completed" /> <effectiveTime value="" /> <value unit="%" xsi:type= "PQ" value="18.3" /> <interpretationCode codeSystem="local" code="*" / > <referenceRange> <observationRange> <text> 11.0-15.6</text> </observationRange> </referenceRange> </observation> </component> <component> <observation moodCode="EVN" classCode="OBS"> <templateId root= "07.12.840.1.613698.03.15.22.4.2" /> <id nullFlavor="NA" /> < code codeSystem="local" code="WBC" displayName="WHITE BLOOD CELL" /> < statusCode code="completed" /> <effectiveTime value="601345969960" /> <value unit="k/cumm" xsi:type="PQ" value="7.6" /> < referenceRange> <observationRange> <text>5.0-10.0</text > </observationRange> </referenceRange> </observation > </component> <component> <observation moodCode="EVN" classCode="OBS"> <templateId root="16.840.1.324702.03.15.22.4.2" /> <id nullFlavor="NA" /> <code codeSystem="local" code="HGBT" displayName="HEMOGLOBIN" /> <statusCode code="completed" /> < effectiveTime value="" /> <value unit="gm/dL" xsi:type="PQ " value="7.3" /> <interpretationCode codeSystem="local" code="*" /> <referenceRange> <observationRange> <text>12.0- 16.0</text> </observationRange> </referenceRange> </ observation> </component> <component> <observation moodCode= "EVN" classCode="OBS"> <templateId root="07.12.840.1.747326.10..4.2 " /> <id nullFlavor="NA" /> <code codeSystem="local" code= "HCTT" displayName="HEMATOCRIT" /> <statusCode code="completed" /> <effectiveTime value="" /> <value unit="%" xsi: type="PQ" value="27.8" /> <interpretationCode codeSystem="local" code= "*" /> <referenceRange> <observationRange> < text>37.0-47.0</text> </observationRange> </referenceRange> </observation> </component> <component> <observation moodCode="EVN" classCode="OBS"> <templateId root= "840.1.406504.03.15.22.4.2" /> <id nullFlavor="NA" /> < code codeSystem="local" code="PLT" displayName="PLATELET COUNT" /> < statusCode code="completed" /> <effectiveTime value="" /> <value unit="k/cumm" xsi:type="PQ" value="268" /> < referenceRange> <observationRange> <text>150-400</text> </observationRange> </referenceRange> </observation > </component> </organizer> </entry> <entry> <organizer moodCode= "EVN" classCode="BATTERY"> <templateId root="07.12.840.1.922038.22.4.1 " /> <id nullFlavor="NA" /> <code codeSystem="local" code="iCHEM8" displayName="CHEM/HEM PROFILE-BEDSIDE" /> <statusCode code="completed" /> <component> <observation moodCode="EVN" classCode="OBS"> < templateId root="07.12.840.1.284111.22.4.2" /> <id nullFlavor="NA " /> <code codeSystem="local" code="K" displayName="POTASSIUM" /> <statusCode code="completed" /> <effectiveTime value=" " /> <value unit="mmol/L" xsi:type="PQ" value="3.3" /> < interpretationCode codeSystem="local" code="*" /> <referenceRange> <observationRange> <text>3.5-5.3</text> </ observationRange> </referenceRange> </observation> </ component> <component> <observation moodCode="EVN" classCode="OBS"> <templateId root="2.16.840.1.354170...4.2" /> <id nullFlavor="NA" /> <code codeSystem="local" code="CMETHOD" displayName= "METHOD" /> <statusCode code="completed" /> <effectiveTime value="" /> <value unit="" xsi:type="PQ" value="Bedside" / > <referenceRange> <observationRange> <text /> </observationRange> </referenceRange> </observation > </component> <component> <observation moodCode="EVN" classCode="OBS"> <templateId root="2.16.840.1.585052....4.2" /> <id nullFlavor="NA" /> <code codeSystem="local" code="GAP" displayName="ANION GAP" /> <statusCode code="completed" /> < effectiveTime value="" /> <value unit="mmol/L" xsi:type="PQ " value="19" /> <referenceRange> <observationRange> <text>10-20</text> </observationRange> </ referenceRange> </observation> </component> <component> <observation moodCode="EVN" classCode="OBS"> <templateId root= "216.840.1.208361.10..4.2" /> <id nullFlavor="NA" /> < code codeSystem="local" code="HMETHOD" displayName="METHOD" /> < statusCode code="completed" /> <effectiveTime value="" /> <value unit="" xsi:type="PQ" value="Bedside" /> < referenceRange> <observationRange> <text /> < /observationRange> </referenceRange> </observation> </ component> <component> <observation moodCode="EVN" classCode="OBS"> <templateId root="16.840.1.716011.03.15.22.4.2" /> <id nullFlavor="NA" /> <code codeSystem="local" code="GLU" displayName= "GLUCOSE" /> <statusCode code="completed" /> <effectiveTime value="" /> <value unit="mg/dL" xsi:type="PQ" value="86" / > <referenceRange> <observationRange> <text>70- 99</text> </observationRange> </referenceRange> </ observation> </component> <component> <observation moodCode= "EVN" classCode="OBS"> <templateId root="07.12.840.1.826457.03.15.22.4.2 " /> <id nullFlavor="NA" /> <code codeSystem="local" code="BUN " displayName="BLOOD UREA NITROGEN" /> <statusCode code="completed" /> <effectiveTime value="" /> <value unit="mg/dL" xsi:type="PQ" value="< 3" /> <interpretationCode codeSystem="local" code="*" /> <referenceRange> <observationRange> <text>7-20</text> </observationRange> </referenceRange> </observation> </component> <component> <observation moodCode="EVN" classCode="OBS"> <templateId root= "16.840.1.322411.03.15.22.4.2" /> <id nullFlavor="NA" /> < code codeSystem="local" code="CREAT" displayName="CREATININE" /> < statusCode code="completed" /> <effectiveTime value="" /> <value unit="mg/dL" xsi:type="PQ" value="0.7" /> < referenceRange> <observationRange> <text>0.6-1.0</text> </observationRange> </referenceRange> </observation > </component> <component> <observation moodCode="EVN" classCode="OBS"> <templateId root="07.12.840.1.700100.03.15.22.4.2" /> <id nullFlavor="NA" /> <code codeSystem="local" code="HGBT" displayName="HEMOGLOBIN" /> <statusCode code="completed" /> < effectiveTime value="[id number]" /> <value unit="gm/dL" xsi:type="PQ " value="8.5" /> <interpretationCode codeSystem="local" code="*" /> <referenceRange> <observationRange> <text>12.0- 16.0</text> </observationRange> </referenceRange> </ observation> </component> <component> <observation moodCode= "EVN" classCode="OBS"> <templateId root="16.840.1.397758.03.15.22.4.2 " /> <id nullFlavor="NA" /> <code codeSystem="local" code= "HCTT" displayName="HEMATOCRIT" /> <statusCode code="completed" /> <effectiveTime value="[id number]" /> <value unit="%" xsi: type="PQ" value="25.0" /> <interpretationCode codeSystem="local" code= "*" /> <referenceRange> <observationRange> < text>37.0-47.0</text> </observationRange> </referenceRange> </observation> </component> <component> <observation moodCode="EVN" classCode="OBS"> <templateId root= "16.840.1.073858.10.20.22.4.2" /> <id nullFlavor="NA" /> < code codeSystem="local" code="NA" displayName="SODIUM" /> <statusCode code="completed" /> <effectiveTime value="430953448589" /> < value unit="mmol/L" xsi:type="PQ" value="142" /> <referenceRange> <observationRange> <text>135-148</text> </ observationRange> </referenceRange> </observation> </ component> <component> <observation moodCode="EVN" classCode="OBS"> <templateId root="07.12.840.1.006726.10..22.4.2" /> <id nullFlavor="NA" /> <code codeSystem="local" code="CL" displayName= "CHLORIDE" /> <statusCode code="completed" /> <effectiveTime value="" /> <value unit="mmol/L" xsi:type="PQ" value="104" /> <referenceRange> <observationRange> <text>98 -110</text> </observationRange> </referenceRange> </ observation> </component> <component> <observation moodCode= "EVN" classCode="OBS"> <templateId root="07.12.840.1.613771.10.2022.4.2 " /> <id nullFlavor="NA" /> <code codeSystem="local" code="CO2 " displayName="CARBON DIOXIDE" /> <statusCode code="completed" /> <effectiveTime value="[id number]" /> <value unit="mmol/L" xsi: type="PQ" value="24" /> <referenceRange> <observationRange> <text>21-32</text> </observationRange> </ referenceRange> </observation> </component> <component> <observation moodCode="EVN" classCode="OBS"> <templateId root= "840.1.171309.03.15.22.4.2" /> <id nullFlavor="NA" /> < code codeSystem="local" code="CAION" displayName="CALCIUM IONIZED" /> < statusCode code="completed" /> <effectiveTime value="" /> <value unit="mg/dL" xsi:type="PQ" value="5.0" /> < referenceRange> <observationRange> <text>4.5-5.3</text> </observationRange> </referenceRange> </observation > </component> </organizer> </entry> <entry> <organizer moodCode= "EVN" classCode="BATTERY"> <templateId root="840.1.973084.03.15.22.4.1 " /> <id nullFlavor="NA" /> <code codeSystem="local" code="CBCD" displayName="CBC W/DIFF" /> <statusCode code="completed" /> <component > <observation moodCode="EVN" classCode="OBS"> <templateId root= "07.12.840.1.141852.22.4.2" /> <id nullFlavor="NA" /> < code codeSystem="local" code="BA#" displayName="BASOPHIL #" /> < statusCode code="completed" /> <effectiveTime value="" /> <value unit="k/cumm" xsi:type="PQ" value="0.1" /> < referenceRange> <observationRange> <text>0.0-0.2</text> </observationRange> </referenceRange> </observation > </component> <component> <observation moodCode="EVN" classCode="OBS"> <templateId root="07.12.840.1.219871.10.22.4.2" /> <id nullFlavor="NA" /> <code codeSystem="local" code="BA% " displayName="BASOPHIL %" /> <statusCode code="completed" /> <effectiveTime value="" /> <value unit="%" xsi: type="PQ" value="1" /> <referenceRange> <observationRange> <text>0-1</text> </observationRange> </ referenceRange> </observation> </component> <component> <observation moodCode="EVN" classCode="OBS"> <templateId root= "07.12.840.1.702226.10..4.2" /> <id nullFlavor="NA" /> < code codeSystem="local" code="CBCCOM" displayName="COMMENT" /> < statusCode code="completed" /> <effectiveTime value="" /> <value unit="" xsi:type="PQ" value="REVIEWED" /> < referenceRange> <observationRange> <text /> < /observationRange> </referenceRange> </observation> </ component> <component> <observation moodCode="EVN" classCode="OBS"> <templateId root="07.12.840.1.321356.10.2022.4.2" /> <id nullFlavor="NA" /> <code codeSystem="local" code="EO#" displayName= "EOSINOPHIL #" /> <statusCode code="completed" /> < effectiveTime value="" /> <value unit="k/cumm" xsi:type="PQ " value="0.2" /> <referenceRange> <observationRange> <text>0.1-0.5</text> </observationRange> </ referenceRange> </observation> </component> <component> <observation moodCode="EVN" classCode="OBS"> <templateId root= "216.840.1.989649.10..4.2" /> <id nullFlavor="NA" /> < code codeSystem="local" code="EO%" displayName="EOSINOPHIL %" /> <statusCode code="completed" /> <effectiveTime value="" /> <value unit="%" xsi:type="PQ" value="2" /> < referenceRange> <observationRange> <text>2-4</text> </observationRange> </referenceRange> </observation> </component> <component> <observation moodCode="EVN" classCode= "OBS"> <templateId root="216.840.1.612786.10..4.2" /> < id nullFlavor="NA" /> <code codeSystem="local" code="GR#" displayName= "GRANULOCYTE #" /> <statusCode code="completed" /> < effectiveTime value="" /> <value unit="k/cumm" xsi:type="PQ " value="3.7" /> <referenceRange> <observationRange> <text>2.0-9.0</text> </observationRange> </ referenceRange> </observation> </component> <component> <observation moodCode="EVN" classCode="OBS"> <templateId root= "16.840.1.239471.10.20.22.4.2" /> <id nullFlavor="NA" /> < code codeSystem="local" code="GR%" displayName="GRANULOCYTE %" /> <statusCode code="completed" /> <effectiveTime value=" " /> <value unit="%" xsi:type="PQ" value="50" /> < referenceRange> <observationRange> <text>50-75</text> </observationRange> </referenceRange> </observation> </component> <component> <observation moodCode="EVN" classCode= "OBS"> <templateId root="07.12.840.1.079780.10.22.4.2" /> < id nullFlavor="NA" /> <code codeSystem="local" code="LY#" displayName= "LYMPHOCYTE #" /> <statusCode code="completed" /> < effectiveTime value="" /> <value unit="k/cumm" xsi:type="PQ " value="2.8" /> <referenceRange> <observationRange> <text>1.0-4.0</text> </observationRange> </ referenceRange> </observation> </component> <component> <observation moodCode="EVN" classCode="OBS"> <templateId root= "07.12.840.1.182141.10.2022.4.2" /> <id nullFlavor="NA" /> < code codeSystem="local" code="LY%" displayName="LYMPHOCYTE %" /> <statusCode code="completed" /> <effectiveTime value="" /> <value unit="%" xsi:type="PQ" value="38" /> < interpretationCode codeSystem="local" code="*" /> <referenceRange> <observationRange> <text>20-30</text> </ observationRange> </referenceRange> </observation> </ component> <component> <observation moodCode="EVN" classCode="OBS"> <templateId root="2.16.840.1.468843.10..22.4.2" /> <id nullFlavor="NA" /> <code codeSystem="local" code="MCH" displayName= "MEAN CELL HGB" /> <statusCode code="completed" /> < effectiveTime value="" /> <value unit="pg" xsi:type="PQ" value="17.5" /> <interpretationCode codeSystem="local" code="*" /> <referenceRange> <observationRange> <text>27.0- 33.0</text> </observationRange> </referenceRange> </ observation> </component> <component> <observation moodCode= "EVN" classCode="OBS"> <templateId root="216.840.1.188342.10...4.2 " /> <id nullFlavor="NA" /> <code codeSystem="local" code= "MCHC" displayName="MEAN CELL HGB CONCENTRATION" /> <statusCode code= "completed" /> <effectiveTime value="" /> <value unit="g/dL" xsi:type="PQ" value="27.3" /> <interpretationCode codeSystem="local" code="*" /> <referenceRange> < observationRange> <text>32.0-37.0</text> </ observationRange> </referenceRange> </observation> </ component> <component> <observation moodCode="EVN" classCode="OBS"> <templateId root="216.840.1.171565.10...4.2" /> <id nullFlavor="NA" /> <code codeSystem="local" code="MCV" displayName= "MEAN CELL VOLUME" /> <statusCode code="completed" /> < effectiveTime value="" /> <value unit="fl" xsi:type="PQ" value="64.0" /> <interpretationCode codeSystem="local" code="*" /> <referenceRange> <observationRange> <text>80.0- 100.0</text> </observationRange> </referenceRange> </ observation> </component> <component> <observation moodCode= "EVN" classCode="OBS"> <templateId root="2.16.840.1.505499.03.15.224.2 " /> <id nullFlavor="NA" /> <code codeSystem="local" code="MO# " displayName="MONOCYTE #" /> <statusCode code="completed" /> <effectiveTime value="" /> <value unit="k/cumm" xsi:type= "PQ" value="0.7" /> <referenceRange> <observationRange> <text>0.1-1.0</text> </observationRange> </ referenceRange> </observation> </component> <component> <observation moodCode="EVN" classCode="OBS"> <templateId root= "216.840.1.593197.10.4.2" /> <id nullFlavor="NA" /> < code codeSystem="local" code="MO%" displayName="MONOCYTE %" /> <statusCode code="completed" /> <effectiveTime value="" /> <value unit="%" xsi:type="PQ" value="9" /> < interpretationCode codeSystem="local" code="*" /> <referenceRange> <observationRange> <text>4-6</text> </ observationRange> </referenceRange> </observation> </ component> <component> <observation moodCode="EVN" classCode="OBS"> <templateId root="16.840.1.840259.03.15.22.4.2" /> <id nullFlavor="NA" /> <code codeSystem="local" code="OVAL" displayName= "OVALOCYTES" /> <statusCode code="completed" /> < effectiveTime value="" /> <value unit="" xsi:type="PQ" value="NOTED" /> <referenceRange> <observationRange> <text /> </observationRange> </referenceRange> </observation> </component> <component> <observation moodCode ="EVN" classCode="OBS"> <templateId root= "07.12.840.1.526872.03.15.224.2" /> <id nullFlavor="NA" /> < code codeSystem="local" code="RBC" displayName="RED BLOOD CELL" /> < statusCode code="completed" /> <effectiveTime value="" /> <value unit="m/cumm" xsi:type="PQ" value="3.89" /> < interpretationCode codeSystem="local" code="*" /> <referenceRange> <observationRange> <text>4.00-6.00</text> </ observationRange> </referenceRange> </observation> </ component> <component> <observation moodCode="EVN" classCode="OBS"> <templateId root="07.12.840.1.958033.03.15.22.4.2" /> <id nullFlavor="NA" /> <code codeSystem="local" code="RDW" displayName=" RED CELL DISTRIBUTION WIDTH" /> <statusCode code="completed" /> <effectiveTime value="" /> <value unit="%" xsi:type= "PQ" value="20.2" /> <interpretationCode codeSystem="local" code="*" / > <referenceRange> <observationRange> <text> 11.0-15.6</text> </observationRange> </referenceRange> </observation> </component> <component> <observation moodCode="EVN" classCode="OBS"> <templateId root= "16.840.1.813362.22.4.2" /> <id nullFlavor="NA" /> < code codeSystem="local" code="WBC" displayName="WHITE BLOOD CELL" /> < statusCode code="completed" /> <effectiveTime value="" /> <value unit="k/cumm" xsi:type="PQ" value="7.4" /> < referenceRange> <observationRange> <text>5.0-10.0</text > </observationRange> </referenceRange> </observation > </component> <component> <observation moodCode="EVN" classCode="OBS"> <templateId root="07.12.840.1.153520.1022.4.2" /> <id nullFlavor="NA" /> <code codeSystem="local" code="HGBT" displayName="HEMOGLOBIN" /> <statusCode code="completed" /> < effectiveTime value="" /> <value unit="gm/dL" xsi:type="PQ " value="6.8" /> <interpretationCode codeSystem="local" code="*" /> <referenceRange> <observationRange> <text>12.0- 16.0</text> </observationRange> </referenceRange> </ observation> </component> <component> <observation moodCode= "EVN" classCode="OBS"> <templateId root="840.1.966597.10.20.22.4.2 " /> <id nullFlavor="NA" /> <code codeSystem="local" code= "HCTT" displayName="HEMATOCRIT" /> <statusCode code="completed" /> <effectiveTime value="" /> <value unit="%" xsi: type="PQ" value="24.9" /> <interpretationCode codeSystem="local" code= "*" /> <referenceRange> <observationRange> < text>37.0-47.0</text> </observationRange> </referenceRange> </observation> </component> <component> <observation moodCode="EVN" classCode="OBS"> <templateId root= "840.1.604430.1022.4.2" /> <id nullFlavor="NA" /> < code codeSystem="local" code="PLT" displayName="PLATELET COUNT" /> < statusCode code="completed" /> <effectiveTime value="" /> <value unit="k/cumm" xsi:type="PQ" value="311" /> < referenceRange> <observationRange> <text>150-400</text> </observationRange> </referenceRange> </observation > </component> </organizer> </entry> <entry> <organizer moodCode= "EVN" classCode="BATTERY"> <templateId root="840.1.535236.10.2022.4.1 " /> <id nullFlavor="NA" /> <code codeSystem="local" code="LIVER" displayName="HEPATIC FUNCTION PANEL" /> <statusCode code="completed" /> <component> <observation moodCode="EVN" classCode="OBS"> < templateId root="840.1.438339.104.2" /> <id nullFlavor="NA " /> <code codeSystem="local" code="BILUC" displayName="BILI UNCONJUGATED" /> <statusCode code="completed" /> < effectiveTime value="" /> <value unit="mg/dL" xsi:type="PQ " value="0.1" /> <referenceRange> <observationRange> <text>0.0-0.7</text> </observationRange> </ referenceRange> </observation> </component> <component> <observation moodCode="EVN" classCode="OBS"> <templateId root= "2.16.840.1.043993.03.15.224.2" /> <id nullFlavor="NA" /> < code codeSystem="local" code="AST" displayName="AST/SGOT" /> < statusCode code="completed" /> <effectiveTime value="" /> <value unit="Units/L" xsi:type="PQ" value="69" /> < interpretationCode codeSystem="local" code="*" /> <referenceRange> <observationRange> <text>10-37</text> </ observationRange> </referenceRange> </observation> </ component> <component> <observation moodCode="EVN" classCode="OBS"> <templateId root="2.16.840.1.740981.104.2" /> <id nullFlavor="NA" /> <code codeSystem="local" code="ALT" displayName="ALT /SGPT" /> <statusCode code="completed" /> <effectiveTime value ="" /> <value unit="Units/L" xsi:type="PQ" value="45" /> <referenceRange> <observationRange> <text>< 66</text> </observationRange> </referenceRange> </ observation> </component> <component> <observation moodCode= "EVN" classCode="OBS"> <templateId root="07.12.840.1.355541..22.4.2 " /> <id nullFlavor="NA" /> <code codeSystem="local" code="TP " displayName="TOTAL PROTEIN" /> <statusCode code="completed" /> <effectiveTime value="" /> <value unit="gm/dL" xsi:type ="PQ" value="7.1" /> <referenceRange> <observationRange> <text>6.4-8.2</text> </observationRange> </ referenceRange> </observation> </component> <component> <observation moodCode="EVN" classCode="OBS"> <templateId root= "07.12.840.1.791170.22.4.2" /> <id nullFlavor="NA" /> < code codeSystem="local" code="ALB" displayName="ALBUMIN" /> < statusCode code="completed" /> <effectiveTime value="143766384188" /> <value unit="gm/dL" xsi:type="PQ" value="3.4" /> < referenceRange> <observationRange> <text>3.4-5.0</text> </observationRange> </referenceRange> </observation > </component> <component> <observation moodCode="EVN" classCode="OBS"> <templateId root="07.12.840.1.057863.10.20.22.4.2" /> <id nullFlavor="NA" /> <code codeSystem="local" code="BILTOT" displayName="BILI TOTAL" /> <statusCode code="completed" /> < effectiveTime value="608321610057" /> <value unit="mg/dL" xsi:type="PQ " value="0.2" /> <referenceRange> <observationRange> <text>0.0-1.0</text> </observationRange> </ referenceRange> </observation> </component> <component> <observation moodCode="EVN" classCode="OBS"> <templateId root= "16.840.1.118097.10.20.22.4.2" /> <id nullFlavor="NA" /> < code codeSystem="local" code="ALKP" displayName="ALKALINE PHOSPHATASE TOTAL" /> <statusCode code="completed" /> <effectiveTime value= "" /> <value unit="IU/L" xsi:type="PQ" value="91" /> <referenceRange> <observationRange> <text>45-117</ text> </observationRange> </referenceRange> </ observation> </component> <component> <observation moodCode= "EVN" classCode="OBS"> <templateId root="07.12.840.1.896180.10.22.4.2 " /> <id nullFlavor="NA" /> <code codeSystem="local" code= "BILC" displayName="BILI CONJUGATED" /> <statusCode code="completed" / > <effectiveTime value="676234869820" /> <value unit="mg/dL" xsi:type="PQ" value="< 0.1" /> <referenceRange> < observationRange> <text>0.0-0.3</text> </ observationRange> </referenceRange> </observation> </ component> </organizer> </entry> <entry> <organizer moodCode="EVN" classCode="BATTERY"> <templateId root="16.840.1.653693.10.20.22.4.1" /> <id nullFlavor="NA" /> <code codeSystem="local" code="iCHEM8" displayName="CHEM/HEM PROFILE-BEDSIDE" /> <statusCode code="completed" /> <component> <observation moodCode="EVN" classCode="OBS"> < templateId root="16.840.1.117874.1022.4.2" /> <id nullFlavor="NA " /> <code codeSystem="local" code="K" displayName="POTASSIUM" /> <statusCode code="completed" /> <effectiveTime value=" " /> <value unit="mmol/L" xsi:type="PQ" value="4.1" /> < referenceRange> <observationRange> <text>3.5-5.3</text> </observationRange> </referenceRange> </observation > </component> <component> <observation moodCode="EVN" classCode="OBS"> <templateId root="07.12.840.1.473025.1022.4.2" /> <id nullFlavor="NA" /> <code codeSystem="local" code="CMETHOD " displayName="METHOD" /> <statusCode code="completed" /> < effectiveTime value="036346968829" /> <value unit="" xsi:type="PQ" value="Bedside" /> <referenceRange> <observationRange> <text /> </observationRange> </referenceRange> </observation> </component> <component> <observation moodCode="EVN" classCode="OBS"> <templateId root= "16.840.1.742064.10.22.4.2" /> <id nullFlavor="NA" /> < code codeSystem="local" code="GAP" displayName="ANION GAP" /> < statusCode code="completed" /> <effectiveTime value="" /> <value unit="mmol/L" xsi:type="PQ" value="18" /> < referenceRange> <observationRange> <text>10-20</text> </observationRange> </referenceRange> </observation> </component> <component> <observation moodCode="EVN" classCode= "OBS"> <templateId root="16.840.1.524363.10..4.2" /> < id nullFlavor="NA" /> <code codeSystem="local" code="HMETHOD" displayName="METHOD" /> <statusCode code="completed" /> < effectiveTime value="730822744967" /> <value unit="" xsi:type="PQ" value="Bedside" /> <referenceRange> <observationRange> <text /> </observationRange> </referenceRange> </observation> </component> <component> <observation moodCode="EVN" classCode="OBS"> <templateId root= "07.12.840.1.876367.03.15.22.4.2" /> <id nullFlavor="NA" /> < code codeSystem="local" code="GLU" displayName="GLUCOSE" /> < statusCode code="completed" /> <effectiveTime value="" /> <value unit="mg/dL" xsi:type="PQ" value="110" /> < interpretationCode codeSystem="local" code="*" /> <referenceRange> <observationRange> <text>70-99</text> </ observationRange> </referenceRange> </observation> </ component> <component> <observation moodCode="EVN" classCode="OBS"> <templateId root="07.12.840.1.574308.1022.4.2" /> <id nullFlavor="NA" /> <code codeSystem="local" code="BUN" displayName= "BLOOD UREA NITROGEN" /> <statusCode code="completed" /> < effectiveTime value="013885973522" /> <value unit="mg/dL" xsi:type="PQ " value="15" /> <referenceRange> <observationRange> <text>7-20</text> </observationRange> </referenceRange > </observation> </component> <component> <observation moodCode="EVN" classCode="OBS"> <templateId root= "216.840.1.341409.10..22.4.2" /> <id nullFlavor="NA" /> < code codeSystem="local" code="CREAT" displayName="CREATININE" /> < statusCode code="completed" /> <effectiveTime value="801133571427" /> <value unit="mg/dL" xsi:type="PQ" value="0.8" /> < referenceRange> <observationRange> <text>0.6-1.0</text> </observationRange> </referenceRange> </observation > </component> <component> <observation moodCode="EVN" classCode="OBS"> <templateId root="216.840.1.276388.10...4.2" /> <id nullFlavor="NA" /> <code codeSystem="local" code="HGBT" displayName="HEMOGLOBIN" /> <statusCode code="completed" /> < effectiveTime value="086244833243" /> <value unit="gm/dL" xsi:type="PQ " value="8.2" /> <interpretationCode codeSystem="local" code="*" /> <referenceRange> <observationRange> <text>12.0- 16.0</text> </observationRange> </referenceRange> </ observation> </component> <component> <observation moodCode= "EVN" classCode="OBS"> <templateId root="216.840.1.932782.10..22.4.2 " /> <id nullFlavor="NA" /> <code codeSystem="local" code= "HCTT" displayName="HEMATOCRIT" /> <statusCode code="completed" /> <effectiveTime value="400200590463" /> <value unit="%" xsi: type="PQ" value="24.0" /> <interpretationCode codeSystem="local" code= "*" /> <referenceRange> <observationRange> < text>37.0-47.0</text> </observationRange> </referenceRange> </observation> </component> <component> <observation moodCode="EVN" classCode="OBS"> <templateId root= "2.16.840.1.536279.10..22.4.2" /> <id nullFlavor="NA" /> < code codeSystem="local" code="NA" displayName="SODIUM" /> <statusCode code="completed" /> <effectiveTime value="411355559331" /> < value unit="mmol/L" xsi:type="PQ" value="139" /> <referenceRange> <observationRange> <text>135-148</text> </ observationRange> </referenceRange> </observation> </ component> <component> <observation moodCode="EVN" classCode="OBS"> <templateId root="2.16.840.1.434232.10..22.4.2" /> <id nullFlavor="NA" /> <code codeSystem="local" code="CL" displayName= "CHLORIDE" /> <statusCode code="completed" /> <effectiveTime value="988308671492" /> <value unit="mmol/L" xsi:type="PQ" value="101" /> <referenceRange> <observationRange> <text>98 -110</text> </observationRange> </referenceRange> </ observation> </component> <component> <observation moodCode= "EVN" classCode="OBS"> <templateId root="07.12.840.1.032190.10..4.2 " /> <id nullFlavor="NA" /> <code codeSystem="local" code="CO2 " displayName="CARBON DIOXIDE" /> <statusCode code="completed" /> <effectiveTime value="928137526118" /> <value unit="mmol/L" xsi: type="PQ" value="26" /> <referenceRange> <observationRange> <text>21-32</text> </observationRange> </ referenceRange> </observation> </component> <component> <observation moodCode="EVN" classCode="OBS"> <templateId root= "07.12.840.1.192637.03.15.22.4.2" /> <id nullFlavor="NA" /> < code codeSystem="local" code="CAION" displayName="CALCIUM IONIZED" /> < statusCode code="completed" /> <effectiveTime value="524817998093" /> <value unit="mg/dL" xsi:type="PQ" value="4.7" /> < referenceRange> <observationRange> <text>4.5-5.3</text> </observationRange> </referenceRange> </observation > </component> </organizer> </entry> <entry> <organizer moodCode= "EVN" classCode="BATTERY"> <templateId root="07.12.840.1.617973.22.4.1 " /> <id nullFlavor="NA" /> <code codeSystem="local" code="iTROPI" displayName="TROPONIN I BEDSIDE" /> <statusCode code="completed" /> < component> <observation moodCode="EVN" classCode="OBS"> < templateId root="07.12.840.1.197082.03.15.22.4.2" /> <id nullFlavor="NA " /> <code codeSystem="local" code="CMETHOD" displayName="METHOD" /> <statusCode code="completed" /> <effectiveTime value= "490707609843" /> <value unit="" xsi:type="PQ" value="Bedside" /> <referenceRange> <observationRange> <text /> </observationRange> </referenceRange> </observation> </component> <component> <observation moodCode="EVN" classCode="OBS "> <templateId root="840.1.778263.03.15.22.4.2" /> <id nullFlavor="NA" /> <code codeSystem="local" code="TROPI" displayName= "TROPONIN I" /> <statusCode code="completed" /> < effectiveTime value="396281750056" /> <value unit="ng/mL" xsi:type="PQ " value="< 0.04" /> <referenceRange> <observationRange> <text>< 0.11</text> </observationRange> </ referenceRange> </observation> </component> </organizer> </entry > <entry> <organizer moodCode="EVN" classCode="BATTERY"> <templateId root="840.1.349294.03.15.22.4.1" /> <id nullFlavor="NA" /> <code codeSystem="local" code="FETIBC" displayName="IRON W/ BINDING CAPACITY" /> <statusCode code="completed" /> <component> <observation moodCode= "EVN" classCode="OBS"> <templateId root="07.12.840.1.187676.03.15.22.4.2 " /> <id nullFlavor="NA" /> <code codeSystem="local" code= "FESAT" displayName="IRON SATURATION" /> <statusCode code="completed" / > <effectiveTime value="[id number]" /> <value unit="%SAT " xsi:type="PQ" value="2" /> <interpretationCode codeSystem="local" code="*" /> <referenceRange> <observationRange> <text>11-46</text> </observationRange> </referenceRange> </observation> </component> <component> <observation moodCode="EVN" classCode="OBS"> <templateId root= "216.840.1.521802.10.20.22.4.2" /> <id nullFlavor="NA" /> < code codeSystem="local" code="TIBC" displayName="IRON BINDING CAPACITY, TOTAL" / > <statusCode code="completed" /> <effectiveTime value= "[id number]" /> <value unit="mcg/dL" xsi:type="PQ" value="477" /> <interpretationCode codeSystem="local" code="*" /> < referenceRange> <observationRange> <text>250-450</text> </observationRange> </referenceRange> </observation > </component> <component> <observation moodCode="EVN" classCode="OBS"> <templateId root="216.840.1.690669.10.20.22.4.2" /> <id nullFlavor="NA" /> <code codeSystem="local" code="IRON" displayName="IRON" /> <statusCode code="completed" /> < effectiveTime value="458805645309" /> <value unit="mcg/dL" xsi:type="PQ " value="11" /> <interpretationCode codeSystem="local" code="*" /> <referenceRange> <observationRange> <text>35-150</ text> </observationRange> </referenceRange> </ observation> </component> </organizer> </entry> <entry> <organizer moodCode="EVN" classCode="BATTERY"> <templateId root= "840.1.300878.03.15.22.4.1" /> <id nullFlavor="NA" /> <code codeSystem="local" code="LIP" displayName="LIPASE" /> <statusCode code= "completed" /> <component> <observation moodCode="EVN" classCode= "OBS"> <templateId root="840.1.431316.03.15.22.4.2" /> < id nullFlavor="NA" /> <code codeSystem="local" code="LIP" displayName= "LIPASE" /> <statusCode code="completed" /> <effectiveTime value="173878085397" /> <value unit="Units/L" xsi:type="PQ" value="87" /> <referenceRange> <observationRange> <text>73 -393</text> </observationRange> </referenceRange> </ observation> </component> </organizer> </entry> <entry> <organizer moodCode="EVN" classCode="BATTERY"> <templateId root= "840.1.133283.03.15.22.4.1" /> <id nullFlavor="NA" /> <code codeSystem="local" code="LEANNE" displayName="FERRITIN" /> <statusCode code= "completed" /> <component> <observation moodCode="EVN" classCode= "OBS"> <templateId root="840.1.255624.03.15.22.4.2" /> < id nullFlavor="NA" /> <code codeSystem="local" code="LEANNE" displayName= "FERRITIN" /> <statusCode code="completed" /> <effectiveTime value="960615708560" /> <value unit="ng/mL" xsi:type="PQ" value="1" /> <interpretationCode codeSystem="local" code="*" /> < referenceRange> <observationRange> <text>8-252</text> </observationRange> </referenceRange> </observation> </component> </organizer> </entry> <entry> <organizer moodCode="EVN " classCode="BATTERY"> <templateId root="216.840.1.489216.10.22.4.1" / > <id nullFlavor="NA" /> <code codeSystem="local" code="PHEN" displayName="PHENYTOIN (DILANTIN)" /> <statusCode code="completed" /> <component> <observation moodCode="EVN" classCode="OBS"> < templateId root="216.840.1.429032....4.2" /> <id nullFlavor="NA " /> <code codeSystem="local" code="PHEN" displayName="PHENYTOIN ( DILANTIN)" /> <statusCode code="completed" /> <effectiveTime value="205582408648" /> <value unit="mcg/mL" xsi:type="PQ" value="3.5" /> <interpretationCode codeSystem="local" code="*" /> < referenceRange> <observationRange> <text>10.0-20.0</text > </observationRange> </referenceRange> </observation > </component> </organizer> </entry> <entry> <organizer moodCode= "EVN" classCode="BATTERY"> <templateId root="216.840.1.730438....4.1 " /> <id nullFlavor="NA" /> <code codeSystem="local" code="TSH" displayName="THYROID STIM HORMONE (TSH)" /> <statusCode code="completed" / > <component> <observation moodCode="EVN" classCode="OBS"> <templateId root="2.16.840.1.922245.10..22.4.2" /> <id nullFlavor="NA " /> <code codeSystem="local" code="TSH" displayName="THYROID STIM HORMONE (TSH)" /> <statusCode code="completed" /> < effectiveTime value="955688919537" /> <value unit="uIU/mL" xsi:type="PQ " value="4.81" /> <referenceRange> <observationRange> <text>0.34-4.82</text> </observationRange> </ referenceRange> </observation> </component> </organizer> </entry > <entry> <organizer moodCode="EVN" classCode="BATTERY"> <templateId root="2.16.840.1.633765.10..22.4.1" /> <id nullFlavor="NA" /> <code codeSystem="local" code="HBA1C" displayName="HEMOGLOBIN A1C" /> < statusCode code="completed" /> <component> <observation moodCode= "EVN" classCode="OBS"> <templateId root="2.16.840.1.801703.10.20.22.4.2 " /> <id nullFlavor="NA" /> <code codeSystem="local" code= "HBA1C" displayName="HEMOGLOBIN A1C" /> <statusCode code="completed" / > <effectiveTime value="441471501471" /> <value unit="%" xsi:type="PQ" value="5.9" /> <interpretationCode codeSystem="local" code="*" /> <referenceRange> <observationRange> <text>< 5.7</text> </observationRange> </referenceRange > </observation> </component> </organizer> </entry> <entry> <organizer moodCode="EVN" classCode="BATTERY"> <templateId root= "2.16.840.1.134245.10..22.4.1" /> <id nullFlavor="NA" /> <code codeSystem="local" code="CBCD" displayName="CBC W/DIFF" /> <statusCode code ="completed" /> <component> <observation moodCode="EVN" classCode= "OBS"> <templateId root="2.16.840.1.650867.10..22.4.2" /> < id nullFlavor="NA" /> <code codeSystem="local" code="BA#" displayName= "BASOPHIL #" /> <statusCode code="completed" /> < effectiveTime value="250261310404" /> <value unit="k/cumm" xsi:type="PQ " value="0.1" /> <referenceRange> <observationRange> <text>0.0-0.2</text> </observationRange> </ referenceRange> </observation> </component> <component> <observation moodCode="EVN" classCode="OBS"> <templateId root= "2.16.840.1.507555.10..22.4.2" /> <id nullFlavor="NA" /> < code codeSystem="local" code="BA%" displayName="BASOPHIL %" /> <statusCode code="completed" /> <effectiveTime value="308318906825" /> <value unit="%" xsi:type="PQ" value="2" /> < interpretationCode codeSystem="local" code="*" /> <referenceRange> <observationRange> <text>0-1</text> </ observationRange> </referenceRange> </observation> </ component> <component> <observation moodCode="EVN" classCode="OBS"> <templateId root="07.12.840.1.619347.10.2022.4.2" /> <id nullFlavor="NA" /> <code codeSystem="local" code="EO#" displayName= "EOSINOPHIL #" /> <statusCode code="completed" /> < effectiveTime value="" /> <value unit="k/cumm" xsi:type="PQ " value="0.2" /> <referenceRange> <observationRange> <text>0.1-0.5</text> </observationRange> </ referenceRange> </observation> </component> <component> <observation moodCode="EVN" classCode="OBS"> <templateId root= "07.12.840.1.925363.22.4.2" /> <id nullFlavor="NA" /> < code codeSystem="local" code="EO%" displayName="EOSINOPHIL %" /> <statusCode code="completed" /> <effectiveTime value="" /> <value unit="%" xsi:type="PQ" value="2" /> < referenceRange> <observationRange> <text>2-4</text> </observationRange> </referenceRange> </observation> </component> <component> <observation moodCode="EVN" classCode= "OBS"> <templateId root="07.12.840.1.612132.10.2022.4.2" /> < id nullFlavor="NA" /> <code codeSystem="local" code="GR#" displayName= "GRANULOCYTE #" /> <statusCode code="completed" /> < effectiveTime value="" /> <value unit="k/cumm" xsi:type="PQ " value="3.4" /> <referenceRange> <observationRange> <text>2.0-9.0</text> </observationRange> </ referenceRange> </observation> </component> <component> <observation moodCode="EVN" classCode="OBS"> <templateId root= "16.840.1.783983.10..4.2" /> <id nullFlavor="NA" /> < code codeSystem="local" code="GR%" displayName="GRANULOCYTE %" /> <statusCode code="completed" /> <effectiveTime value="664149809297 " /> <value unit="%" xsi:type="PQ" value="51" /> < referenceRange> <observationRange> <text>50-75</text> </observationRange> </referenceRange> </observation> </component> <component> <observation moodCode="EVN" classCode= "OBS"> <templateId root="07.12.840.1.524218.03.15.22.4.2" /> < id nullFlavor="NA" /> <code codeSystem="local" code="LY#" displayName= "LYMPHOCYTE #" /> <statusCode code="completed" /> < effectiveTime value="892363747443" /> <value unit="k/cumm" xsi:type="PQ " value="2.6" /> <referenceRange> <observationRange> <text>1.0-4.0</text> </observationRange> </ referenceRange> </observation> </component> <component> <observation moodCode="EVN" classCode="OBS"> <templateId root= "07.12.840.1.252367.10.2022.4.2" /> <id nullFlavor="NA" /> < code codeSystem="local" code="LY%" displayName="LYMPHOCYTE %" /> <statusCode code="completed" /> <effectiveTime value="202490276026" /> <value unit="%" xsi:type="PQ" value="38" /> < interpretationCode codeSystem="local" code="*" /> <referenceRange> <observationRange> <text>20-30</text> </ observationRange> </referenceRange> </observation> </ component> <component> <observation moodCode="EVN" classCode="OBS"> <templateId root="216.840.1.647506.10.20.22.4.2" /> <id nullFlavor="NA" /> <code codeSystem="local" code="MCH" displayName= "MEAN CELL HGB" /> <statusCode code="completed" /> < effectiveTime value="503928992114" /> <value unit="pg" xsi:type="PQ" value="19.5" /> <interpretationCode codeSystem="local" code="*" /> <referenceRange> <observationRange> <text>27.0- 33.0</text> </observationRange> </referenceRange> </ observation> </component> <component> <observation moodCode= "EVN" classCode="OBS"> <templateId root="216.840.1.790909.10.20.22.4.2 " /> <id nullFlavor="NA" /> <code codeSystem="local" code= "MCHC" displayName="MEAN CELL HGB CONCENTRATION" /> <statusCode code= "completed" /> <effectiveTime value="698165692122" /> <value unit="g/dL" xsi:type="PQ" value="29.0" /> <interpretationCode codeSystem="local" code="*" /> <referenceRange> < observationRange> <text>32.0-37.0</text> </ observationRange> </referenceRange> </observation> </ component> <component> <observation moodCode="EVN" classCode="OBS"> <templateId root="16.840.1.423369.10.20.22.4.2" /> <id nullFlavor="NA" /> <code codeSystem="local" code="MCV" displayName= "MEAN CELL VOLUME" /> <statusCode code="completed" /> < effectiveTime value="" /> <value unit="fl" xsi:type="PQ" value="67.3" /> <interpretationCode codeSystem="local" code="*" /> <referenceRange> <observationRange> <text>80.0- 100.0</text> </observationRange> </referenceRange> </ observation> </component> <component> <observation moodCode= "EVN" classCode="OBS"> <templateId root="07.12.840.1.481391.03.15.22.4.2 " /> <id nullFlavor="NA" /> <code codeSystem="local" code="MO# " displayName="MONOCYTE #" /> <statusCode code="completed" /> <effectiveTime value="" /> <value unit="k/cumm" xsi:type= "PQ" value="0.5" /> <referenceRange> <observationRange> <text>0.1-1.0</text> </observationRange> </ referenceRange> </observation> </component> <component> <observation moodCode="EVN" classCode="OBS"> <templateId root= "16.840.1.563017.10.20.22.4.2" /> <id nullFlavor="NA" /> < code codeSystem="local" code="MO%" displayName="MONOCYTE %" /> <statusCode code="completed" /> <effectiveTime value="" /> <value unit="%" xsi:type="PQ" value="8" /> < interpretationCode codeSystem="local" code="*" /> <referenceRange> <observationRange> <text>4-6</text> </ observationRange> </referenceRange> </observation> </ component> <component> <observation moodCode="EVN" classCode="OBS"> <templateId root="16.840.1.133245.10.2022.4.2" /> <id nullFlavor="NA" /> <code codeSystem="local" code="OVAL" displayName= "OVALOCYTES" /> <statusCode code="completed" /> < effectiveTime value="" /> <value unit="" xsi:type="PQ" value="NOTED" /> <referenceRange> <observationRange> <text /> </observationRange> </referenceRange> </observation> </component> <component> <observation moodCode ="EVN" classCode="OBS"> <templateId root= "07.12.840.1.117660.10.22.4.2" /> <id nullFlavor="NA" /> < code codeSystem="local" code="RBC" displayName="RED BLOOD CELL" /> < statusCode code="completed" /> <effectiveTime value="" /> <value unit="m/cumm" xsi:type="PQ" value="4.46" /> < referenceRange> <observationRange> <text>4.00-6.00</text > </observationRange> </referenceRange> </observation > </component> <component> <observation moodCode="EVN" classCode="OBS"> <templateId root="07.12.840.1.497200.10.2022.4.2" /> <id nullFlavor="NA" /> <code codeSystem="local" code="RDW" displayName="RED CELL DISTRIBUTION WIDTH" /> <statusCode code= "completed" /> <effectiveTime value="715831180686" /> <value unit="%" xsi:type="PQ" value="23.1" /> <interpretationCode codeSystem="local" code="*" /> <referenceRange> < observationRange> <text>11.0-15.6</text> </ observationRange> </referenceRange> </observation> </ component> <component> <observation moodCode="EVN" classCode="OBS"> <templateId root="216.840.1.512295.10.20.22.4.2" /> <id nullFlavor="NA" /> <code codeSystem="local" code="WBC" displayName= "WHITE BLOOD CELL" /> <statusCode code="completed" /> < effectiveTime value="172252688211" /> <value unit="k/cumm" xsi:type="PQ " value="6.8" /> <referenceRange> <observationRange> <text>5.0-10.0</text> </observationRange> </ referenceRange> </observation> </component> <component> <observation moodCode="EVN" classCode="OBS"> <templateId root= "2.16.840.1.463084.10.20.22.4.2" /> <id nullFlavor="NA" /> < code codeSystem="local" code="HGBT" displayName="HEMOGLOBIN" /> < statusCode code="completed" /> <effectiveTime value="410248149235" /> <value unit="gm/dL" xsi:type="PQ" value="8.7" /> < interpretationCode codeSystem="local" code="*" /> <referenceRange> <observationRange> <text>12.0-16.0</text> </ observationRange> </referenceRange> </observation> </ component> <component> <observation moodCode="EVN" classCode="OBS"> <templateId root="2.16.840.1.943958.10..22.4.2" /> <id nullFlavor="NA" /> <code codeSystem="local" code="HCTT" displayName= "HEMATOCRIT" /> <statusCode code="completed" /> < effectiveTime value="862298268928" /> <value unit="%" xsi:type="PQ " value="30.0" /> <interpretationCode codeSystem="local" code="*" /> <referenceRange> <observationRange> <text>37.0- 47.0</text> </observationRange> </referenceRange> </ observation> </component> <component> <observation moodCode= "EVN" classCode="OBS"> <templateId root="216.840.1.938664.03.15.22.4.2 " /> <id nullFlavor="NA" /> <code codeSystem="local" code="PLT " displayName="PLATELET COUNT" /> <statusCode code="completed" /> <effectiveTime value="179245174289" /> <value unit="k/cumm" xsi: type="PQ" value="289" /> <referenceRange> <observationRange > <text>150-400</text> </observationRange> </ referenceRange> </observation> </component> </organizer> </entry > <entry> <organizer moodCode="EVN" classCode="BATTERY"> <templateId root="216.840.1.862326.10..22.4.1" /> <id nullFlavor="NA" /> <code codeSystem="local" code="MORPH" displayName="MORPHOLOGY" /> <statusCode code="completed" /> <component> <observation moodCode="EVN" classCode="OBS"> <templateId root="07.12.840.1.324231.10..4.2" /> <id nullFlavor="NA" /> <code codeSystem="local" code="RMORPH" displayName="RBC MORPH" /> <statusCode code="completed" /> < effectiveTime value="757957680950" /> <value unit="" xsi:type="PQ" value="NOTED" /> <referenceRange> <observationRange> <text /> </observationRange> </referenceRange> </observation> </component> </organizer> </entry> <entry> < organizer moodCode="EVN" classCode="BATTERY"> <templateId root= "07.12.840.1.012579.10.4.1" /> <id nullFlavor="NA" /> <code codeSystem="local" code="RENAL" displayName="RENAL FUNCTION PANEL" /> < statusCode code="completed" /> <component> <observation moodCode= "EVN" classCode="OBS"> <templateId root="840.1.774277...4.2 " /> <id nullFlavor="NA" /> <code codeSystem="local" code="K" displayName="POTASSIUM" /> <statusCode code="completed" /> < effectiveTime value="298738195984" /> <value unit="mmol/L" xsi:type="PQ " value="4.3" /> <referenceRange> <observationRange> <text>3.5-5.3</text> </observationRange> </ referenceRange> </observation> </component> <component> <observation moodCode="EVN" classCode="OBS"> <templateId root= "07.12.840.1.322225...22.4.2" /> <id nullFlavor="NA" /> < code codeSystem="local" code="eGFR" displayName="EST GFR (MDRD)" /> < statusCode code="completed" /> <effectiveTime value="" /> <value unit="mL/min" xsi:type="PQ" value="> 60" /> < referenceRange> <observationRange> <text>> 59</text> </observationRange> </referenceRange> </observation > </component> <component> <observation moodCode="EVN" classCode="OBS"> <templateId root="16.840.1.516994.10.20.22.4.2" /> <id nullFlavor="NA" /> <code codeSystem="local" code="GAP" displayName="ANION GAP" /> <statusCode code="completed" /> < effectiveTime value="" /> <value unit="mmol/L" xsi:type="PQ " value="8" /> <referenceRange> <observationRange> <text>5-15</text> </observationRange> </referenceRange > </observation> </component> <component> <observation moodCode="EVN" classCode="OBS"> <templateId root= "16.840.1.640000.10.20.22.4.2" /> <id nullFlavor="NA" /> < code codeSystem="local" code="eCrCl" displayName="EST CrCl (CG)" /> < statusCode code="completed" /> <effectiveTime value="291702341854" /> <value unit="mL/min" xsi:type="PQ" value="> 60" /> < referenceRange> <observationRange> <text>> 59</text> </observationRange> </referenceRange> </observation > </component> <component> <observation moodCode="EVN" classCode="OBS"> <templateId root="07.12.840.1.045007.1022.4.2" /> <id nullFlavor="NA" /> <code codeSystem="local" code="GLU" displayName="GLUCOSE" /> <statusCode code="completed" /> < effectiveTime value="157370610217" /> <value unit="mg/dL" xsi:type="PQ " value="84" /> <referenceRange> <observationRange> <text>70-99</text> </observationRange> </ referenceRange> </observation> </component> <component> <observation moodCode="EVN" classCode="OBS"> <templateId root= "07.12.840.1.280036.03.15.22.4.2" /> <id nullFlavor="NA" /> < code codeSystem="local" code="CA" displayName="CALCIUM" /> <statusCode code="completed" /> <effectiveTime value="" /> < value unit="mg/dL" xsi:type="PQ" value="8.4" /> <interpretationCode codeSystem="local" code="*" /> <referenceRange> < observationRange> <text>8.5-10.1</text> </ observationRange> </referenceRange> </observation> </ component> <component> <observation moodCode="EVN" classCode="OBS"> <templateId root="07.12.840.1.073121.1022.4.2" /> <id nullFlavor="NA" /> <code codeSystem="local" code="BUN" displayName= "BLOOD UREA NITROGEN" /> <statusCode code="completed" /> < effectiveTime value="" /> <value unit="mg/dL" xsi:type="PQ " value="15" /> <referenceRange> <observationRange> <text>7-20</text> </observationRange> </referenceRange > </observation> </component> <component> <observation moodCode="EVN" classCode="OBS"> <templateId root= "216.840.1.788685.1022.4.2" /> <id nullFlavor="NA" /> < code codeSystem="local" code="CREAT" displayName="CREATININE" /> < statusCode code="completed" /> <effectiveTime value="" /> <value unit="mg/dL" xsi:type="PQ" value="0.8" /> < referenceRange> <observationRange> <text>0.6-1.0</text> </observationRange> </referenceRange> </observation > </component> <component> <observation moodCode="EVN" classCode="OBS"> <templateId root="07.12.840.1.395105.22.4.2" /> <id nullFlavor="NA" /> <code codeSystem="local" code="NA" displayName="SODIUM" /> <statusCode code="completed" /> < effectiveTime value="" /> <value unit="mmol/L" xsi:type="PQ " value="140" /> <referenceRange> <observationRange> <text>135-148</text> </observationRange> </ referenceRange> </observation> </component> <component> <observation moodCode="EVN" classCode="OBS"> <templateId root= "07.12.840.1.988139.10.2022.4.2" /> <id nullFlavor="NA" /> < code codeSystem="local" code="CL" displayName="CHLORIDE" /> < statusCode code="completed" /> <effectiveTime value="299863992631" /> <value unit="mmol/L" xsi:type="PQ" value="104" /> < referenceRange> <observationRange> <text>98-110</text> </observationRange> </referenceRange> </observation> </component> <component> <observation moodCode="EVN" classCode ="OBS"> <templateId root="07.12.840.1.771548.10.20.22.4.2" /> < id nullFlavor="NA" /> <code codeSystem="local" code="CO2" displayName= "CARBON DIOXIDE" /> <statusCode code="completed" /> < effectiveTime value="924108169269" /> <value unit="mmol/L" xsi:type="PQ " value="28" /> <referenceRange> <observationRange> <text>21-32</text> </observationRange> </ referenceRange> </observation> </component> <component> <observation moodCode="EVN" classCode="OBS"> <templateId root= "07.12.840.1.052512.10...4.2" /> <id nullFlavor="NA" /> < code codeSystem="local" code="ALB" displayName="ALBUMIN" /> < statusCode code="completed" /> <effectiveTime value="628407598802" /> <value unit="gm/dL" xsi:type="PQ" value="3.2" /> < interpretationCode codeSystem="local" code="*" /> <referenceRange> <observationRange> <text>3.4-5.0</text> </ observationRange> </referenceRange> </observation> </ component> <component> <observation moodCode="EVN" classCode="OBS"> <templateId root="07.12.840.1.784691.10..22.4.2" /> <id nullFlavor="NA" /> <code codeSystem="local" code="PHOS" displayName= "PHOSPHORUS" /> <statusCode code="completed" /> < effectiveTime value="246326820268" /> <value unit="mg/dL" xsi:type="PQ " value="4.4" /> <referenceRange> <observationRange> <text>2.5-4.9</text> </observationRange> </ referenceRange> </observation> </component> </organizer> </entry > <entry> <organizer moodCode="EVN" classCode="BATTERY"> <templateId root="07.12.840.1.482426.10.20.22.4.1" /> <id nullFlavor="NA" /> <code codeSystem="local" code="HDLPRO" displayName="LIPID PANEL" /> <statusCode code="completed" /> <component> <observation moodCode="EVN" classCode="OBS"> <templateId root="07.12.840.1.441588.10.22.4.2" /> <id nullFlavor="NA" /> <code codeSystem="local" code="CHOL/HDL " displayName="CHOLESTEROL/HDL RATIO" /> <statusCode code="completed" / > <effectiveTime value="512741677385" /> <value unit="" xsi: type="PQ" value="2.4" /> <referenceRange> <observationRange > <text> < 5.0</text> </observationRange> </ referenceRange> </observation> </component> <component> <observation moodCode="EVN" classCode="OBS"> <templateId root= "07.12.840.1.994439.10.22.4.2" /> <id nullFlavor="NA" /> < code codeSystem="local" code="LDLX" displayName="LDL CHOLESTEROL" /> < statusCode code="completed" /> <effectiveTime value="" /> <value unit="mg/dL" xsi:type="PQ" value="83" /> < referenceRange> <observationRange> <text>< 100</text > </observationRange> </referenceRange> </observation > </component> <component> <observation moodCode="EVN" classCode="OBS"> <templateId root="16.840.1.458863.10.20.22.4.2" /> <id nullFlavor="NA" /> <code codeSystem="local" code="VLDL" displayName="VLDL CHOLESTEROL" /> <statusCode code="completed" /> <effectiveTime value="" /> <value unit="mg/dL" xsi: type="PQ" value="22" /> <referenceRange> <observationRange> <text>< 30</text> </observationRange> </ referenceRange> </observation> </component> <component> <observation moodCode="EVN" classCode="OBS"> <templateId root= "07.12.840.1.055413.10.22.4.2" /> <id nullFlavor="NA" /> < code codeSystem="local" code="TRIG" displayName="TRIGLYCERIDES" /> < statusCode code="completed" /> <effectiveTime value="633347344973" /> <value unit="mg/dL" xsi:type="PQ" value="111" /> < referenceRange> <observationRange> <text>< 150</text > </observationRange> </referenceRange> </observation > </component> <component> <observation moodCode="EVN" classCode="OBS"> <templateId root="07.12.840.1.576709.10.2022.4.2" /> <id nullFlavor="NA" /> <code codeSystem="local" code="CHOL" displayName="CHOLESTEROL" /> <statusCode code="completed" /> < effectiveTime value="" /> <value unit="mg/dL" xsi:type="PQ " value="182" /> <referenceRange> <observationRange> <text>< 200</text> </observationRange> </ referenceRange> </observation> </component> <component> <observation moodCode="EVN" classCode="OBS"> <templateId root= "16.840.1.895220.1022.4.2" /> <id nullFlavor="NA" /> < code codeSystem="local" code="HDL" displayName="HDL CHOLESTEROL" /> < statusCode code="completed" /> <effectiveTime value="" /> <value unit="mg/dL" xsi:type="PQ" value="77" /> < referenceRange> <observationRange> <text>> 39</text> </observationRange> </referenceRange> </observation > </component> </organizer> </entry> <entry> <organizer moodCode= "EVN" classCode="BATTERY"> <templateId root="216.840.1.906900.22.4.1 " /> <id nullFlavor="NA" /> <code codeSystem="local" code="MAG" displayName="MAGNESIUM" /> <statusCode code="completed" /> <component > <observation moodCode="EVN" classCode="OBS"> <templateId root= "16.840.1.171971.102022.4.2" /> <id nullFlavor="NA" /> < code codeSystem="local" code="MAG" displayName="MAGNESIUM" /> < statusCode code="completed" /> <effectiveTime value="" /> <value unit="mg/dL" xsi:type="PQ" value="2.0" /> < referenceRange> <observationRange> <text>1.8-2.4</text> </observationRange> </referenceRange> </observation > </component> </organizer> </entry> <entry> <organizer moodCode= "EVN" classCode="BATTERY"> <templateId root="07.12.840.1.921935.10.22.4.1 " /> <id nullFlavor="NA" /> <code codeSystem="local" code="TROPI" displayName="TROPONIN I" /> <statusCode code="completed" /> <component > <observation moodCode="EVN" classCode="OBS"> <templateId root= "840.1.890887.03.15.22.4.2" /> <id nullFlavor="NA" /> < code codeSystem="local" code="TROPI" displayName="TROPONIN I" /> < statusCode code="completed" /> <effectiveTime value="[id number]" /> <value unit="ng/mL" xsi:type="PQ" value="< 0.02" /> < referenceRange> <observationRange> <text>< 0.07</text > </observationRange> </referenceRange> </observation > </component> </organizer> </entry> <entry> <organizer moodCode= "EVN" classCode="BATTERY"> <templateId root="840.1.145222.22.4.1 " /> <id nullFlavor="NA" /> <code codeSystem="local" code="CBCD" displayName="CBC W/DIFF" /> <statusCode code="completed" /> <component > <observation moodCode="EVN" classCode="OBS"> <templateId root= "07.12.840.1.624146.10..4.2" /> <id nullFlavor="NA" /> < code codeSystem="local" code="BA#" displayName="BASOPHIL #" /> < statusCode code="completed" /> <effectiveTime value="" /> <value unit="k/cumm" xsi:type="PQ" value="0.1" /> < referenceRange> <observationRange> <text>0.0-0.2</text> </observationRange> </referenceRange> </observation > </component> <component> <observation moodCode="EVN" classCode="OBS"> <templateId root="216.840.1.743359.10...4.2" /> <id nullFlavor="NA" /> <code codeSystem="local" code="BA% " displayName="BASOPHIL %" /> <statusCode code="completed" /> <effectiveTime value="819807653657" /> <value unit="%" xsi: type="PQ" value="2" /> <interpretationCode codeSystem="local" code="*" /> <referenceRange> <observationRange> <text>0- 1</text> </observationRange> </referenceRange> </ observation> </component> <component> <observation moodCode= "EVN" classCode="OBS"> <templateId root="216.840.1.935686.10.20.22.4.2 " /> <id nullFlavor="NA" /> <code codeSystem="local" code="EO# " displayName="EOSINOPHIL #" /> <statusCode code="completed" /> <effectiveTime value="531912683517" /> <value unit="k/cumm" xsi:type ="PQ" value="0.1" /> <referenceRange> <observationRange> <text>0.1-0.5</text> </observationRange> </ referenceRange> </observation> </component> <component> <observation moodCode="EVN" classCode="OBS"> <templateId root= "216.840.1.618394.10..4.2" /> <id nullFlavor="NA" /> < code codeSystem="local" code="EO%" displayName="EOSINOPHIL %" /> <statusCode code="completed" /> <effectiveTime value="" /> <value unit="%" xsi:type="PQ" value="1" /> < interpretationCode codeSystem="local" code="*" /> <referenceRange> <observationRange> <text>2-4</text> </ observationRange> </referenceRange> </observation> </ component> <component> <observation moodCode="EVN" classCode="OBS"> <templateId root="07.12.840.1.596534.03.15.224.2" /> <id nullFlavor="NA" /> <code codeSystem="local" code="GR#" displayName= "GRANULOCYTE #" /> <statusCode code="completed" /> < effectiveTime value="" /> <value unit="k/cumm" xsi:type="PQ " value="4.7" /> <referenceRange> <observationRange> <text>2.0-9.0</text> </observationRange> </ referenceRange> </observation> </component> <component> <observation moodCode="EVN" classCode="OBS"> <templateId root= "216.840.1.008810.1022.4.2" /> <id nullFlavor="NA" /> < code codeSystem="local" code="GR%" displayName="GRANULOCYTE %" /> <statusCode code="completed" /> <effectiveTime value=" " /> <value unit="%" xsi:type="PQ" value="62" /> < referenceRange> <observationRange> <text>50-75</text> </observationRange> </referenceRange> </observation> </component> <component> <observation moodCode="EVN" classCode= "OBS"> <templateId root="216.840.1.380787.10...4.2" /> < id nullFlavor="NA" /> <code codeSystem="local" code="LY#" displayName= "LYMPHOCYTE #" /> <statusCode code="completed" /> < effectiveTime value="[id number]" /> <value unit="k/cumm" xsi:type="PQ " value="2.0" /> <referenceRange> <observationRange> <text>1.0-4.0</text> </observationRange> </ referenceRange> </observation> </component> <component> <observation moodCode="EVN" classCode="OBS"> <templateId root= "216.840.1.321874.10..4.2" /> <id nullFlavor="NA" /> < code codeSystem="local" code="LY%" displayName="LYMPHOCYTE %" /> <statusCode code="completed" /> <effectiveTime value="395107245730" /> <value unit="%" xsi:type="PQ" value="27" /> < referenceRange> <observationRange> <text>20-30</text> </observationRange> </referenceRange> </observation> </component> <component> <observation moodCode="EVN" classCode= "OBS"> <templateId root="216.840.1.615969.10..22.4.2" /> < id nullFlavor="NA" /> <code codeSystem="local" code="MCH" displayName= "MEAN CELL HGB" /> <statusCode code="completed" /> < effectiveTime value="" /> <value unit="pg" xsi:type="PQ" value="19.6" /> <interpretationCode codeSystem="local" code="*" /> <referenceRange> <observationRange> <text>27.0- 33.0</text> </observationRange> </referenceRange> </ observation> </component> <component> <observation moodCode= "EVN" classCode="OBS"> <templateId root="216.840.1.682182.10..4.2 " /> <id nullFlavor="NA" /> <code codeSystem="local" code= "MCHC" displayName="MEAN CELL HGB CONCENTRATION" /> <statusCode code= "completed" /> <effectiveTime value="" /> <value unit="g/dL" xsi:type="PQ" value="29.0" /> <interpretationCode codeSystem="local" code="*" /> <referenceRange> < observationRange> <text>32.0-37.0</text> </ observationRange> </referenceRange> </observation> </ component> <component> <observation moodCode="EVN" classCode="OBS"> <templateId root="16.840.1.398966.1022.4.2" /> <id nullFlavor="NA" /> <code codeSystem="local" code="MCV" displayName= "MEAN CELL VOLUME" /> <statusCode code="completed" /> < effectiveTime value="" /> <value unit="fl" xsi:type="PQ" value="67.7" /> <interpretationCode codeSystem="local" code="*" /> <referenceRange> <observationRange> <text>80.0- 100.0</text> </observationRange> </referenceRange> </ observation> </component> <component> <observation moodCode= "EVN" classCode="OBS"> <templateId root="07.12.840.1.459053.10.20.22.4.2 " /> <id nullFlavor="NA" /> <code codeSystem="local" code="MO# " displayName="MONOCYTE #" /> <statusCode code="completed" /> <effectiveTime value="336775281500" /> <value unit="k/cumm" xsi:type= "PQ" value="0.6" /> <referenceRange> <observationRange> <text>0.1-1.0</text> </observationRange> </ referenceRange> </observation> </component> <component> <observation moodCode="EVN" classCode="OBS"> <templateId root= "07.12.840.1.384501.03.15.22.4.2" /> <id nullFlavor="NA" /> < code codeSystem="local" code="MO%" displayName="MONOCYTE %" /> <statusCode code="completed" /> <effectiveTime value="288779707701" /> <value unit="%" xsi:type="PQ" value="8" /> < interpretationCode codeSystem="local" code="*" /> <referenceRange> <observationRange> <text>4-6</text> </ observationRange> </referenceRange> </observation> </ component> <component> <observation moodCode="EVN" classCode="OBS"> <templateId root="07.12.840.1.086906.10..4.2" /> <id nullFlavor="NA" /> <code codeSystem="local" code="OVAL" displayName= "OVALOCYTES" /> <statusCode code="completed" /> < effectiveTime value="" /> <value unit="" xsi:type="PQ" value="NOTED" /> <referenceRange> <observationRange> <text /> </observationRange> </referenceRange> </observation> </component> <component> <observation moodCode ="EVN" classCode="OBS"> <templateId root= "216.840.1.015978.03.15.22.4.2" /> <id nullFlavor="NA" /> < code codeSystem="local" code="RBC" displayName="RED BLOOD CELL" /> < statusCode code="completed" /> <effectiveTime value="" /> <value unit="m/cumm" xsi:type="PQ" value="4.33" /> < referenceRange> <observationRange> <text>4.00-6.00</text > </observationRange> </referenceRange> </observation > </component> <component> <observation moodCode="EVN" classCode="OBS"> <templateId root="216.840.1.089041.10.4.2" /> <id nullFlavor="NA" /> <code codeSystem="local" code="RDW" displayName="RED CELL DISTRIBUTION WIDTH" /> <statusCode code= "completed" /> <effectiveTime value="" /> <value unit="%" xsi:type="PQ" value="22.9" /> <interpretationCode codeSystem="local" code="*" /> <referenceRange> < observationRange> <text>11.0-15.6</text> </ observationRange> </referenceRange> </observation> </ component> <component> <observation moodCode="EVN" classCode="OBS"> <templateId root="216.840.1.108034.03.15.22.4.2" /> <id nullFlavor="NA" /> <code codeSystem="local" code="SPH" displayName= "SPHEROCYTES" /> <statusCode code="completed" /> < effectiveTime value="" /> <value unit="" xsi:type="PQ" value="NOTED" /> <referenceRange> <observationRange> <text /> </observationRange> </referenceRange> </observation> </component> <component> <observation moodCode ="EVN" classCode="OBS"> <templateId root= "16.840.1.589303.03.15.22.4.2" /> <id nullFlavor="NA" /> < code codeSystem="local" code="WBC" displayName="WHITE BLOOD CELL" /> < statusCode code="completed" /> <effectiveTime value="" /> <value unit="k/cumm" xsi:type="PQ" value="7.6" /> < referenceRange> <observationRange> <text>5.0-10.0</text > </observationRange> </referenceRange> </observation > </component> <component> <observation moodCode="EVN" classCode="OBS"> <templateId root="16.840.1.877544.03.15.22.4.2" /> <id nullFlavor="NA" /> <code codeSystem="local" code="HGBT" displayName="HEMOGLOBIN" /> <statusCode code="completed" /> < effectiveTime value="" /> <value unit="gm/dL" xsi:type="PQ " value="8.5" /> <interpretationCode codeSystem="local" code="*" /> <referenceRange> <observationRange> <text>12.0- 16.0</text> </observationRange> </referenceRange> </ observation> </component> <component> <observation moodCode= "EVN" classCode="OBS"> <templateId root="216.840.1.252774.10..22.4.2 " /> <id nullFlavor="NA" /> <code codeSystem="local" code= "HCTT" displayName="HEMATOCRIT" /> <statusCode code="completed" /> <effectiveTime value="" /> <value unit="%" xsi: type="PQ" value="29.3" /> <interpretationCode codeSystem="local" code= "*" /> <referenceRange> <observationRange> < text>37.0-47.0</text> </observationRange> </referenceRange> </observation> </component> <component> <observation moodCode="EVN" classCode="OBS"> <templateId root= "216.840.1.984120.10..4.2" /> <id nullFlavor="NA" /> < code codeSystem="local" code="PLT" displayName="PLATELET COUNT" /> < statusCode code="completed" /> <effectiveTime value="154604335110" /> <value unit="k/cumm" xsi:type="PQ" value="298" /> < referenceRange> <observationRange> <text>150-400</text> </observationRange> </referenceRange> </observation > </component> </organizer> </entry> <entry> <organizer moodCode= "EVN" classCode="BATTERY"> <templateId root="216.840.1.571129.10...4.1 " /> <id nullFlavor="NA" /> <code codeSystem="local" code="RENAL" displayName="RENAL FUNCTION PANEL" /> <statusCode code="completed" /> <component> <observation moodCode="EVN" classCode="OBS"> < templateId root="16.840.1.475196.10..22.4.2" /> <id nullFlavor="NA " /> <code codeSystem="local" code="K" displayName="POTASSIUM" /> <statusCode code="completed" /> <effectiveTime value="287958682168 " /> <value unit="mmol/L" xsi:type="PQ" value="3.8" /> < referenceRange> <observationRange> <text>3.5-5.3</text> </observationRange> </referenceRange> </observation > </component> <component> <observation moodCode="EVN" classCode="OBS"> <templateId root="16.840.1.708425.10..4.2" /> <id nullFlavor="NA" /> <code codeSystem="local" code="eGFR" displayName="EST GFR (MDRD)" /> <statusCode code="completed" /> <effectiveTime value="495292473621" /> <value unit="mL/min" xsi:type ="PQ" value="> 60" /> <referenceRange> <observationRange > <text>> 59</text> </observationRange> </ referenceRange> </observation> </component> <component> <observation moodCode="EVN" classCode="OBS"> <templateId root= "07.12.840.1.921013.10..22.4.2" /> <id nullFlavor="NA" /> < code codeSystem="local" code="GAP" displayName="ANION GAP" /> < statusCode code="completed" /> <effectiveTime value="459742578800" /> <value unit="mmol/L" xsi:type="PQ" value="9" /> < referenceRange> <observationRange> <text>5-15</text> </observationRange> </referenceRange> </observation> </component> <component> <observation moodCode="EVN" classCode= "OBS"> <templateId root="216.840.1.869227.10..4.2" /> < id nullFlavor="NA" /> <code codeSystem="local" code="eCrCl" displayName ="EST CrCl (CG)" /> <statusCode code="completed" /> < effectiveTime value="600859667066" /> <value unit="mL/min" xsi:type="PQ " value="> 60" /> <referenceRange> <observationRange> <text>> 59</text> </observationRange> </ referenceRange> </observation> </component> <component> <observation moodCode="EVN" classCode="OBS"> <templateId root= "07.12.840.1.075305.03.15.22.4.2" /> <id nullFlavor="NA" /> < code codeSystem="local" code="GLU" displayName="GLUCOSE" /> < statusCode code="completed" /> <effectiveTime value="" /> <value unit="mg/dL" xsi:type="PQ" value="83" /> < referenceRange> <observationRange> <text>70-99</text> </observationRange> </referenceRange> </observation> </component> <component> <observation moodCode="EVN" classCode= "OBS"> <templateId root="07.12.840.1.298981.10..4.2" /> < id nullFlavor="NA" /> <code codeSystem="local" code="CA" displayName= "CALCIUM" /> <statusCode code="completed" /> <effectiveTime value="095722501023" /> <value unit="mg/dL" xsi:type="PQ" value="8.4" / > <interpretationCode codeSystem="local" code="*" /> < referenceRange> <observationRange> <text>8.5-10.1</text > </observationRange> </referenceRange> </observation > </component> <component> <observation moodCode="EVN" classCode="OBS"> <templateId root="16.840.1.168120.03.15.22.4.2" /> <id nullFlavor="NA" /> <code codeSystem="local" code="BUN" displayName="BLOOD UREA NITROGEN" /> <statusCode code="completed" /> <effectiveTime value="658459131447" /> <value unit="mg/dL" xsi: type="PQ" value="9" /> <referenceRange> <observationRange> <text>7-20</text> </observationRange> </ referenceRange> </observation> </component> <component> <observation moodCode="EVN" classCode="OBS"> <templateId root= "07.12.840.1.379291.03.15.22.4.2" /> <id nullFlavor="NA" /> < code codeSystem="local" code="CREAT" displayName="CREATININE" /> < statusCode code="completed" /> <effectiveTime value="535884203423" /> <value unit="mg/dL" xsi:type="PQ" value="0.7" /> < referenceRange> <observationRange> <text>0.6-1.0</text> </observationRange> </referenceRange> </observation > </component> <component> <observation moodCode="EVN" classCode="OBS"> <templateId root="16.840.1.349470...4.2" /> <id nullFlavor="NA" /> <code codeSystem="local" code="NA" displayName="SODIUM" /> <statusCode code="completed" /> < effectiveTime value="329771592083" /> <value unit="mmol/L" xsi:type="PQ " value="140" /> <referenceRange> <observationRange> <text>135-148</text> </observationRange> </ referenceRange> </observation> </component> <component> <observation moodCode="EVN" classCode="OBS"> <templateId root= "216.840.1.997728.10.20.22.4.2" /> <id nullFlavor="NA" /> < code codeSystem="local" code="CL" displayName="CHLORIDE" /> < statusCode code="completed" /> <effectiveTime value="785906682057" /> <value unit="mmol/L" xsi:type="PQ" value="104" /> < referenceRange> <observationRange> <text>98-110</text> </observationRange> </referenceRange> </observation> </component> <component> <observation moodCode="EVN" classCode ="OBS"> <templateId root="216.840.1.551986.10.20.22.4.2" /> < id nullFlavor="NA" /> <code codeSystem="local" code="CO2" displayName= "CARBON DIOXIDE" /> <statusCode code="completed" /> < effectiveTime value="598321591428" /> <value unit="mmol/L" xsi:type="PQ " value="27" /> <referenceRange> <observationRange> <text>21-32</text> </observationRange> </ referenceRange> </observation> </component> <component> <observation moodCode="EVN" classCode="OBS"> <templateId root= "840.1.267871.03.15.22.4.2" /> <id nullFlavor="NA" /> < code codeSystem="local" code="ALB" displayName="ALBUMIN" /> < statusCode code="completed" /> <effectiveTime value="411865382115" /> <value unit="gm/dL" xsi:type="PQ" value="3.2" /> < interpretationCode codeSystem="local" code="*" /> <referenceRange> <observationRange> <text>3.4-5.0</text> </ observationRange> </referenceRange> </observation> </ component> <component> <observation moodCode="EVN" classCode="OBS"> <templateId root="840.1.146686.03.15.22.4.2" /> <id nullFlavor="NA" /> <code codeSystem="local" code="PHOS" displayName= "PHOSPHORUS" /> <statusCode code="completed" /> < effectiveTime value="689600745538" /> <value unit="mg/dL" xsi:type="PQ " value="3.6" /> <referenceRange> <observationRange> <text>2.5-4.9</text> </observationRange> </ referenceRange> </observation> </component> </organizer> </entry > <entry> <organizer moodCode="EVN" classCode="BATTERY"> <templateId root="840.1.998683.1022.4.1" /> <id nullFlavor="NA" /> <code codeSystem="local" code="MAG" displayName="MAGNESIUM" /> <statusCode code= "completed" /> <component> <observation moodCode="EVN" classCode= "OBS"> <templateId root="840.1.291061.10.20.22.4.2" /> < id nullFlavor="NA" /> <code codeSystem="local" code="MAG" displayName= "MAGNESIUM" /> <statusCode code="completed" /> <effectiveTime value="588999293011" /> <value unit="mg/dL" xsi:type="PQ" value="2.1" / > <referenceRange> <observationRange> <text>1.8 -2.4</text> </observationRange> </referenceRange> </ observation> </component> </organizer> </entry> <entry> <organizer moodCode="EVN" classCode="BATTERY"> <templateId root= "16.840.1.889130.03.15.22.4.1" /> <id nullFlavor="NA" /> <code codeSystem="local" code="CBC" displayName="CBC" /> <statusCode code= "completed" /> <component> <observation moodCode="EVN" classCode= "OBS"> <templateId root="16.840.1.811336.10..4.2" /> < id nullFlavor="NA" /> <code codeSystem="local" code="MCH" displayName= "MEAN CELL HGB" /> <statusCode code="completed" /> < effectiveTime value="966937955310" /> <value xsi:type="ST" value="<pre> <b>CBC</b> 6.84.4212.439.188.528.365.323.6201</pre>" /> <referenceRange > <observationRange> <text>27.0-33.0</text> < /observationRange> </referenceRange> </observation> </ component> <component> <observation moodCode="EVN" classCode="OBS"> <templateId root="16.840.1.158369.03.15.22.4.2" /> <id nullFlavor="NA" /> <code codeSystem="local" code="MCHC" displayName= "MEAN CELL HGB CONCENTRATION" /> <statusCode code="completed" /> <effectiveTime value="" /> <value xsi:type="ST" value= "<pre><b>CBC</b> 6.84.4212.439.188.528.718.273.6682</pre>" /> < interpretationCode codeSystem="local" code="*" /> <referenceRange> <observationRange> <text>32.0-37.0</text> </ observationRange> </referenceRange> </observation> </ component> <component> <observation moodCode="EVN" classCode="OBS"> <templateId root="216.840.1.110437.10...4.2" /> <id nullFlavor="NA" /> <code codeSystem="local" code="MCV" displayName= "MEAN CELL VOLUME" /> <statusCode code="completed" /> < effectiveTime value="" /> <value xsi:type="ST" value="<pre> <b>CBC</b> 6.84.4212.439.188.528.335.583.8696</pre>" /> <referenceRange > <observationRange> <text>80.0-100.0</text> </observationRange> </referenceRange> </observation> </ component> <component> <observation moodCode="EVN" classCode="OBS"> <templateId root="16.840.1.183764.10.20.22.4.2" /> <id nullFlavor="NA" /> <code codeSystem="local" code="RBC" displayName=" RED BLOOD CELL" /> <statusCode code="completed" /> < effectiveTime value="" /> <value xsi:type="ST" value="<pre> <b>CBC</b> 6.439.188.528.591.136.5894</pre>" /> <referenceRange > <observationRange> <text>4.00-6.00</text> < /observationRange> </referenceRange> </observation> </ component> <component> <observation moodCode="EVN" classCode="OBS"> <templateId root="216.840.1.074206.10.20.22.4.2" /> <id nullFlavor="NA" /> <code codeSystem="local" code="RDW" displayName=" RED CELL DISTRIBUTION WIDTH" /> <statusCode code="completed" /> <effectiveTime value="529912231126" /> <value xsi:type="ST" value="< pre><b>CBC</b> .439.188.528.144.579.2618</pre>" /> < referenceRange> <observationRange> <text>11.0-15.6</text > </observationRange> </referenceRange> </observation > </component> <component> <observation moodCode="EVN" classCode="OBS"> <templateId root="2.16.840.1.705755.10..22.4.2" /> <id nullFlavor="NA" /> <code codeSystem="local" code="WBC" displayName="WHITE BLOOD CELL" /> <statusCode code="completed" /> <effectiveTime value="926066264409" /> <value xsi:type="ST" value= "<pre><b>CBC</b> 6..439.188.528.808.670.7321</pre>" /> < referenceRange> <observationRange> <text>5.0-10.0</text > </observationRange> </referenceRange> </observation > </component> <component> <observation moodCode="EVN" classCode="OBS"> <templateId root="216.840.1.864358.10.22.4.2" /> <id nullFlavor="NA" /> <code codeSystem="local" code="HGBT" displayName="HEMOGLOBIN" /> <statusCode code="completed" /> < effectiveTime value="789327725954" /> <value xsi:type="ST" value="<pre> <b>CBC</b> 6.4212.439.188.528.366.408.2542</pre>" /> <referenceRange > <observationRange> <text>12.0-16.0</text> < /observationRange> </referenceRange> </observation> </ component> <component> <observation moodCode="EVN" classCode="OBS"> <templateId root="216.840.1.516781.10..4.2" /> <id nullFlavor="NA" /> <code codeSystem="local" code="HCTT" displayName= "HEMATOCRIT" /> <statusCode code="completed" /> < effectiveTime value="730202710763" /> <value xsi:type="ST" value="<pre> <b>CBC</b> 6.84.439.188.528.291.750.3431</pre>" /> <referenceRange > <observationRange> <text>37.0-47.0</text> < /observationRange> </referenceRange> </observation> </ component> <component> <observation moodCode="EVN" classCode="OBS"> <templateId root="216.840.1.886246.10.20.22.4.2" /> <id nullFlavor="NA" /> <code codeSystem="local" code="PLT" displayName= "PLATELET COUNT" /> <statusCode code="completed" /> < effectiveTime value="884873612196" /> <value xsi:type="ST" value="<pre> <b>CBC</b> 6.84.4212.439.188.528.789.397.3750</pre>" /> <referenceRange > <observationRange> <text>150-400</text> </ observationRange> </referenceRange> </observation> </ component> <component> <observation moodCode="EVN" classCode="OBS"> <templateId root="07.12.840.1.821533.10.22.4.2" /> <id nullFlavor="NA" /> <code codeSystem="local" code="MB" displayName= "Microbiology" /> <statusCode code="completed" /> < effectiveTime value="871855512349" /> <value xsi:type="ST" value="<pre> <b>CBC</b> 6.84.4212.439.188.528.779.566.8155</pre>" /> <referenceRange > <observationRange> <text /> </ observationRange> </referenceRange> </observation> </ component> </organizer> </entry> <entry> <organizer moodCode="EVN" classCode="BATTERY"> <templateId root="07.12.840.1.404701.10..22.4.1" /> <id nullFlavor="NA" /> <code codeSystem="local" code="LIVER" displayName="HEPATIC FUNCTION PANEL" /> <statusCode code="completed" /> <component> <observation moodCode="EVN" classCode="OBS"> < templateId root="07.12.840.1.233754.10.20.22.4.2" /> <id nullFlavor="NA " /> <code codeSystem="local" code="BILUC" displayName="BILI UNCONJUGATED" /> <statusCode code="completed" /> < effectiveTime value="" /> <value unit="mg/dL" xsi:type="PQ " value="0.0" /> <referenceRange> <observationRange> <text>0.0-0.7</text> </observationRange> </ referenceRange> </observation> </component> <component> <observation moodCode="EVN" classCode="OBS"> <templateId root= "[id number]" /> <id nullFlavor="NA" /> < code codeSystem="local" code="AST" displayName="AST/SGOT" /> < statusCode code="completed" /> <effectiveTime value="" /> <value unit="Units/L" xsi:type="PQ" value="14" /> < referenceRange> <observationRange> <text>10-37</text> </observationRange> </referenceRange> </observation> </component> <component> <observation moodCode="EVN" classCode= "OBS"> <templateId root="216.840.1.270946.10..22.4.2" /> < id nullFlavor="NA" /> <code codeSystem="local" code="ALT" displayName= "ALT/SGPT" /> <statusCode code="completed" /> <effectiveTime value="" /> <value unit="Units/L" xsi:type="PQ" value="16" /> <referenceRange> <observationRange> <text>& lt; 66</text> </observationRange> </referenceRange> < /observation> </component> <component> <observation moodCode= "EVN" classCode="OBS"> <templateId root="16.840.1.958604.10.22.4.2 " /> <id nullFlavor="NA" /> <code codeSystem="local" code="TP " displayName="TOTAL PROTEIN" /> <statusCode code="completed" /> <effectiveTime value="" /> <value unit="gm/dL" xsi:type ="PQ" value="7.1" /> <referenceRange> <observationRange> <text>6.4-8.2</text> </observationRange> </ referenceRange> </observation> </component> <component> <observation moodCode="EVN" classCode="OBS"> <templateId root= "07.12.840.1.638149.22.4.2" /> <id nullFlavor="NA" /> < code codeSystem="local" code="ALB" displayName="ALBUMIN" /> < statusCode code="completed" /> <effectiveTime value="" /> <value unit="gm/dL" xsi:type="PQ" value="3.6" /> < referenceRange> <observationRange> <text>3.4-5.0</text> </observationRange> </referenceRange> </observation > </component> <component> <observation moodCode="EVN" classCode="OBS"> <templateId root="07.12.840.1.949231.10.2022.4.2" /> <id nullFlavor="NA" /> <code codeSystem="local" code="BILTOT" displayName="BILI TOTAL" /> <statusCode code="completed" /> < effectiveTime value="" /> <value unit="mg/dL" xsi:type="PQ " value="0.1" /> <referenceRange> <observationRange> <text>0.0-1.0</text> </observationRange> </ referenceRange> </observation> </component> <component> <observation moodCode="EVN" classCode="OBS"> <templateId root= "216.840.1.115860.10.4.2" /> <id nullFlavor="NA" /> < code codeSystem="local" code="ALKP" displayName="ALKALINE PHOSPHATASE TOTAL" /> <statusCode code="completed" /> <effectiveTime value= "" /> <value unit="IU/L" xsi:type="PQ" value="74" /> <referenceRange> <observationRange> <text>45-117</ text> </observationRange> </referenceRange> </ observation> </component> <component> <observation moodCode= "EVN" classCode="OBS"> <templateId root="07.12.840.1.194774.03.15.224.2 " /> <id nullFlavor="NA" /> <code codeSystem="local" code= "BILC" displayName="BILI CONJUGATED" /> <statusCode code="completed" / > <effectiveTime value="" /> <value unit="mg/dL" xsi:type="PQ" value="0.1" /> <referenceRange> < observationRange> <text>0.0-0.3</text> </ observationRange> </referenceRange> </observation> </ component> <component> <observation moodCode="EVN" classCode="OBS"> <templateId root="07.12.840.1.363039.03.15.22.4.2" /> <id nullFlavor="NA" /> <code codeSystem="local" code="MB" displayName= "Microbiology" /> <statusCode code="completed" /> < effectiveTime value="" /> <value unit="" xsi:type="PQ" value="" /> <referenceRange> <observationRange> <text /> </observationRange> </referenceRange> </ observation> </component> </organizer> </entry> <entry> <organizer moodCode="EVN" classCode="BATTERY"> <templateId root= "16.840.1.470138.10.22.4.1" /> <id nullFlavor="NA" /> <code codeSystem="local" code="LIP" displayName="LIPASE" /> <statusCode code= "completed" /> <component> <observation moodCode="EVN" classCode= "OBS"> <templateId root="840.1.159156.03.15.22.4.2" /> < id nullFlavor="NA" /> <code codeSystem="local" code="LIP" displayName= "LIPASE" /> <statusCode code="completed" /> <effectiveTime value="327531527784" /> <value unit="Units/L" xsi:type="PQ" value="203 " /> <referenceRange> <observationRange> <text> 73-393</text> </observationRange> </referenceRange> < /observation> </component> </organizer> </entry> <entry> < organizer moodCode="EVN" classCode="BATTERY"> <templateId root= "07.12.840.1.906157.22.4.1" /> <id nullFlavor="NA" /> <code codeSystem="local" code="iCHEM8" displayName="CHEM/HEM PROFILE-BEDSIDE" /> <statusCode code="completed" /> <component> <observation moodCode= "EVN" classCode="OBS"> <templateId root="07.12.840.1.452967.10.22.4.2 " /> <id nullFlavor="NA" /> <code codeSystem="local" code="K" displayName="POTASSIUM" /> <statusCode code="completed" /> < effectiveTime value="" /> <value xsi:type="ST" value="<pre> <b>CHEM/HEM PROFILE-BEDSIDE</b> Efjqftf165Pfuzhmz5073.2444105437725.54.6</ pre>" /> <referenceRange> <observationRange> < text>3.5-5.3</text> </observationRange> </referenceRange> </observation> </component> <component> <observation moodCode="EVN" classCode="OBS"> <templateId root= "2.16.840.1.025731.10..22.4.2" /> <id nullFlavor="NA" /> < code codeSystem="local" code="CMETHOD" displayName="METHOD" /> < statusCode code="completed" /> <effectiveTime value="403344296296" /> <value xsi:type="ST" value="<pre><b>CHEM/HEM PROFILE-BEDSIDE</b> Bighcjc04.6Mrwbtdv3422.8415040181408.54.6</pre>" /> <referenceRange > <observationRange> <text /> </ observationRange> </referenceRange> </observation> </ component> <component> <observation moodCode="EVN" classCode="OBS"> <templateId root="2.16.840.1.646259.10..22.4.2" /> <id nullFlavor="NA" /> <code codeSystem="local" code="GAP" displayName= "ANION GAP" /> <statusCode code="completed" /> <effectiveTime value="" /> <value xsi:type="ST" value="<pre><b>CHEM/HEM PROFILE-BEDSIDE</b> Caetmhv20.5Bssuecd3266.8613811987384.54.6</pre>" /> <referenceRange> <observationRange> <text>10-20</ text> </observationRange> </referenceRange> </ observation> </component> <component> <observation moodCode= "EVN" classCode="OBS"> <templateId root="2.16.840.1.109749.10..22.4.2 " /> <id nullFlavor="NA" /> <code codeSystem="local" code= "HMETHOD" displayName="METHOD" /> <statusCode code="completed" /> <effectiveTime value="129572472839" /> <value xsi:type="ST" value= "<pre><b>CHEM/HEM PROFILE-BEDSIDE</b> Itcvnti88339.0Gzhfkwd0516.3770529378276.54.6</pre>" /> <referenceRange > <observationRange> <text /> </ observationRange> </referenceRange> </observation> </ component> <component> <observation moodCode="EVN" classCode="OBS"> <templateId root="2.16.840.1.614702.10..22.4.2" /> <id nullFlavor="NA" /> <code codeSystem="local" code="GLU" displayName= "GLUCOSE" /> <statusCode code="completed" /> <effectiveTime value="" /> <value xsi:type="ST" value="<pre><b>CHEM/HEM PROFILE-BEDSIDE</b> Pcschmn99.2Ifblswb8069.7720512411465.54.6</pre>" /> <interpretationCode codeSystem="local" code="*" /> < referenceRange> <observationRange> <text>70-99</text> </observationRange> </referenceRange> </observation> </component> <component> <observation moodCode="EVN" classCode= "OBS"> <templateId root="216.840.1.058545.10..22.4.2" /> < id nullFlavor="NA" /> <code codeSystem="local" code="BUN" displayName= "BLOOD UREA NITROGEN" /> <statusCode code="completed" /> < effectiveTime value="542181990840" /> <value xsi:type="ST" value="<pre> <b>CHEM/HEM PROFILE-BEDSIDE</b> Orkwqir91.339.6Wcponfv7771.4711233062710.54.6</ pre>" /> <interpretationCode codeSystem="local" code="*" /> < referenceRange> <observationRange> <text>7-20</text> </observationRange> </referenceRange> </observation> </component> <component> <observation moodCode="EVN" classCode= "OBS"> <templateId root="07.12.840.1.682730.10...4.2" /> < id nullFlavor="NA" /> <code codeSystem="local" code="CREAT" displayName ="CREATININE" /> <statusCode code="completed" /> < effectiveTime value="687525316462" /> <value xsi:type="ST" value="<pre> <b>CHEM/HEM PROFILE-BEDSIDE</b> Eofcwdw51.339.6Jpavryw2822.9641182319802.54.6</ pre>" /> <interpretationCode codeSystem="local" code="*" /> < referenceRange> <observationRange> <text>0.6-1.0</text> </observationRange> </referenceRange> </observation > </component> <component> <observation moodCode="EVN" classCode="OBS"> <templateId root="2.840.1.567045.10..22.4.2" /> <id nullFlavor="NA" /> <code codeSystem="local" code="HGBT" displayName="HEMOGLOBIN" /> <statusCode code="completed" /> < effectiveTime value="230046356838" /> <value xsi:type="ST" value="<pre> <b>CHEM/HEM PROFILE-BEDSIDE</b> Wiegnql48.339.3Ggikynx7293.8166544374503.54.6</ pre>" /> <referenceRange> <observationRange> < text>12.0-16.0</text> </observationRange> </referenceRange> </observation> </component> <component> <observation moodCode="EVN" classCode="OBS"> <templateId root= "2.16.840.1.927245.10..22.4.2" /> <id nullFlavor="NA" /> < code codeSystem="local" code="HCTT" displayName="HEMATOCRIT" /> < statusCode code="completed" /> <effectiveTime value="302380019429" /> <value xsi:type="ST" value="<pre><b>CHEM/HEM PROFILE-BEDSIDE</b> Sswjvav09.339.9Rdaknvg6289.5106769227248.54.6</pre>" /> <referenceRange > <observationRange> <text>37.0-47.0</text> < /observationRange> </referenceRange> </observation> </ component> <component> <observation moodCode="EVN" classCode="OBS"> <templateId root="216.840.1.734999.10.20.22.4.2" /> <id nullFlavor="NA" /> <code codeSystem="local" code="NA" displayName= "SODIUM" /> <statusCode code="completed" /> <effectiveTime value="" /> <value xsi:type="ST" value="<pre><b>CHEM/HEM PROFILE-BEDSIDE</b> Znlmpkk38.339.5Jhkzbxy2512.1728116050102.54.6</pre>" /> <referenceRange> <observationRange> <text>135-148< /text> </observationRange> </referenceRange> </ observation> </component> <component> <observation moodCode= "EVN" classCode="OBS"> <templateId root="2.16.840.1.341488.10..22.4.2 " /> <id nullFlavor="NA" /> <code codeSystem="local" code="CL " displayName="CHLORIDE" /> <statusCode code="completed" /> < effectiveTime value="696730904679" /> <value xsi:type="ST" value="<pre> <b>CHEM/HEM PROFILE-BEDSIDE</b> Smynnay17339.8Jakkgwl7585.9756503565569.54.6</ pre>" /> <referenceRange> <observationRange> < text>98-110</text> </observationRange> </referenceRange> </observation> </component> <component> <observation moodCode="EVN" classCode="OBS"> <templateId root= "2.16.840.1.582722.10..22.4.2" /> <id nullFlavor="NA" /> < code codeSystem="local" code="CO2" displayName="CARBON DIOXIDE" /> < statusCode code="completed" /> <effectiveTime value="989203755999" /> <value xsi:type="ST" value="<pre><b>CHEM/HEM PROFILE-BEDSIDE</b> Tvdcsgx66.339.6Afrfudm9209.9783050556225.54.6</pre>" /> <referenceRange > <observationRange> <text>21-32</text> </ observationRange> </referenceRange> </observation> </ component> <component> <observation moodCode="EVN" classCode="OBS"> <templateId root="216.840.1.512335.10...4.2" /> <id nullFlavor="NA" /> <code codeSystem="local" code="LEIGHANNON" displayName= "CALCIUM IONIZED" /> <statusCode code="completed" /> < effectiveTime value="858511649339" /> <value xsi:type="ST" value="<pre> <b>CHEM/HEM PROFILE-BEDSIDE</b> Rqyluzt39.1Wkrinlo8378.2151356247604.54.6</ pre>" /> <referenceRange> <observationRange> < text>4.5-5.3</text> </observationRange> </referenceRange> </observation> </component> <component> <observation moodCode="EVN" classCode="OBS"> <templateId root= "07.12.840.1.079501.10.4.2" /> <id nullFlavor="NA" /> < code codeSystem="local" code="MB" displayName="Microbiology" /> < statusCode code="completed" /> <effectiveTime value="063713230476" /> <value xsi:type="ST" value="<pre><b>CHEM/HEM PROFILE-BEDSIDE</b> Uiooehf31339.6Ihgettm1751.1946577127333.54.6</pre>" /> <referenceRange > <observationRange> <text /> </ observationRange> </referenceRange> </observation> </ component> </organizer> </entry> <entry> <organizer moodCode="EVN" classCode="BATTERY"> <templateId root="216.840.1.357059.10..22.4.1" /> <id nullFlavor="NA" /> <code codeSystem="local" code="UA" displayName= "URINALYSIS, ROUTINE" /> <statusCode code="completed" /> <component> <observation moodCode="EVN" classCode="OBS"> <templateId root= "216.840.1.246978.10.4.2" /> <id nullFlavor="NA" /> < code codeSystem="local" code="LEUESU" displayName="UA LEUKOCYTE ESTERASE DIPSTICK" /> <statusCode code="completed" /> <effectiveTime value="" /> <value unit="" xsi:type="PQ" value="1+" /> <interpretationCode codeSystem="local" code="*" /> < referenceRange> <observationRange> <text>NEGATIVE</text > </observationRange> </referenceRange> </observation > </component> <component> <observation moodCode="EVN" classCode="OBS"> <templateId root="07.12.840.1.189073.03.15.22.4.2" /> <id nullFlavor="NA" /> <code codeSystem="local" code="NITRIU" displayName="UA NITRITE DIPSTICK" /> <statusCode code="completed" /> <effectiveTime value="" /> <value unit="" xsi:type= "PQ" value="NEGATIVE" /> <referenceRange> <observationRange > <text>NEGATIVE</text> </observationRange> </ referenceRange> </observation> </component> <component> <observation moodCode="EVN" classCode="OBS"> <templateId root= "07.12.840.1.853883.03.15.22.4.2" /> <id nullFlavor="NA" /> < code codeSystem="local" code="PROTEIU" displayName="UA PROTEIN DIPSTICK" /> <statusCode code="completed" /> <effectiveTime value= "" /> <value unit="" xsi:type="PQ" value="NEGATIVE" /> <referenceRange> <observationRange> <text>NEGATIVE </text> </observationRange> </referenceRange> </ observation> </component> <component> <observation moodCode= "EVN" classCode="OBS"> <templateId root="16.840.1.105988.10..4.2 " /> <id nullFlavor="NA" /> <code codeSystem="local" code= "DGLUU" displayName="UA GLUCOSE DIPSTICK" /> <statusCode code= "completed" /> <effectiveTime value="254259827766" /> <value unit="" xsi:type="PQ" value="NEGATIVE" /> <referenceRange> < observationRange> <text>NEGATIVE</text> </ observationRange> </referenceRange> </observation> </ component> <component> <observation moodCode="EVN" classCode="OBS"> <templateId root="840.1.162078.03.15.22.4.2" /> <id nullFlavor="NA" /> <code codeSystem="local" code="KETONU" displayName= "UA KETONE DIPSTICK" /> <statusCode code="completed" /> < effectiveTime value="619267756564" /> <value unit="" xsi:type="PQ" value="NEGATIVE" /> <referenceRange> <observationRange> <text>NEGATIVE</text> </observationRange> </ referenceRange> </observation> </component> <component> <observation moodCode="EVN" classCode="OBS"> <templateId root= "07.12.840.1.912955.22.4.2" /> <id nullFlavor="NA" /> < code codeSystem="local" code="UROBILU" displayName="UA UROBILINOGEN DIPSTICK" / > <statusCode code="completed" /> <effectiveTime value= "737179543212" /> <value unit="" xsi:type="PQ" value="NORMAL" /> <referenceRange> <observationRange> <text>NORMAL</ text> </observationRange> </referenceRange> </ observation> </component> <component> <observation moodCode= "EVN" classCode="OBS"> <templateId root="216.840.1.866612.03.15.22.4.2 " /> <id nullFlavor="NA" /> <code codeSystem="local" code= "BILU" displayName="UA BILIRUBIN DIPSTICK" /> <statusCode code= "completed" /> <effectiveTime value="989894622661" /> <value unit="" xsi:type="PQ" value="NEGATIVE" /> <referenceRange> < observationRange> <text>NEGATIVE</text> </ observationRange> </referenceRange> </observation> </ component> <component> <observation moodCode="EVN" classCode="OBS"> <templateId root="16.840.1.261112...4.2" /> <id nullFlavor="NA" /> <code codeSystem="local" code="LON" displayName="UA BLOOD DIPSTICK" /> <statusCode code="completed" /> < effectiveTime value="917043354976" /> <value unit="" xsi:type="PQ" value="3+" /> <interpretationCode codeSystem="local" code="*" /> <referenceRange> <observationRange> <text>NEGATIVE</ text> </observationRange> </referenceRange> </ observation> </component> <component> <observation moodCode= "EVN" classCode="OBS"> <templateId root="216.840.1.228935.03.15.22.4.2 " /> <id nullFlavor="NA" /> <code codeSystem="local" code= "SPGRU" displayName="UA SPECIFIC GRAVITY" /> <statusCode code= "completed" /> <effectiveTime value="996543661990" /> <value unit="" xsi:type="PQ" value="1.020" /> <referenceRange> < observationRange> <text>1.015-1.025</text> </ observationRange> </referenceRange> </observation> </ component> <component> <observation moodCode="EVN" classCode="OBS"> <templateId root="2.16.840.1.970689.03.15.22.4.2" /> <id nullFlavor="NA" /> <code codeSystem="local" code="WILLOW" displayName="UR PH" /> <statusCode code="completed" /> <effectiveTime value= "151983577201" /> <value unit="" xsi:type="PQ" value="7.0" /> <referenceRange> <observationRange> <text>5.0-7.0</text > </observationRange> </referenceRange> </observation > </component> <component> <observation moodCode="EVN" classCode="OBS"> <templateId root="2.16.840.1.766130.03.15.22.4.2" /> <id nullFlavor="NA" /> <code codeSystem="local" code="MB" displayName="Microbiology" /> <statusCode code="completed" /> <effectiveTime value="751880717672" /> <value unit="" xsi:type="PQ" value="" /> <referenceRange> <observationRange> <text /> </observationRange> </referenceRange> </ observation> </component> </organizer> </entry> <entry> <organizer moodCode="EVN" classCode="BATTERY"> <templateId root= "840.1.724735.10..22.4.1" /> <id nullFlavor="NA" /> <code codeSystem="local" code="UAMICRO" displayName="UA MICROSCOPIC" /> < statusCode code="completed" /> <component> <observation moodCode= "EVN" classCode="OBS"> <templateId root="840.1.573684.03.15.22.4.2 " /> <id nullFlavor="NA" /> <code codeSystem="local" code= "BACU" displayName="UA BACTERIA" /> <statusCode code="completed" /> <effectiveTime value="922801520443" /> <value unit="" xsi:type= "PQ" value="5+" /> <interpretationCode codeSystem="local" code="*" /> <referenceRange> <observationRange> <text> NEGATIVE</text> </observationRange> </referenceRange> </observation> </component> <component> <observation moodCode ="EVN" classCode="OBS"> <templateId root= "840.1.377579.10...4.2" /> <id nullFlavor="NA" /> < code codeSystem="local" code="EPIU" displayName="UA EPITHELIAL CELLS" /> <statusCode code="completed" /> <effectiveTime value="388075765242" /> <value unit="epi/hpf" xsi:type="PQ" value="3+" /> < interpretationCode codeSystem="local" code="*" /> <referenceRange> <observationRange> <text>0 - 1+</text> </ observationRange> </referenceRange> </observation> </ component> <component> <observation moodCode="EVN" classCode="OBS"> <templateId root="840.1.550736.10..22.4.2" /> <id nullFlavor="NA" /> <code codeSystem="local" code="MUCUSU" displayName= "UA MUCUS" /> <statusCode code="completed" /> <effectiveTime value="" /> <value unit="" xsi:type="PQ" value="2+" /> <interpretationCode codeSystem="local" code="*" /> < referenceRange> <observationRange> <text>NEG TO 1+</text > </observationRange> </referenceRange> </observation > </component> <component> <observation moodCode="EVN" classCode="OBS"> <templateId root="07.12.840.1.385837.03.15.22.4.2" /> <id nullFlavor="NA" /> <code codeSystem="local" code="RBCU" displayName="UA RBC" /> <statusCode code="completed" /> < effectiveTime value="" /> <value unit="rbc/hpf" xsi:type= "PQ" value="20-50" /> <interpretationCode codeSystem="local" code="*" / > <referenceRange> <observationRange> <text>0 - 3</text> </observationRange> </referenceRange> </ observation> </component> <component> <observation moodCode= "EVN" classCode="OBS"> <templateId root="07.12.840.1.776253.10.22.4.2 " /> <id nullFlavor="NA" /> <code codeSystem="local" code= "UAVOL" displayName="UA VOLUME FOR EXAM" /> <statusCode code="completed " /> <effectiveTime value="" /> <value unit="mL" xsi:type="PQ" value="12.0" /> <referenceRange> < observationRange> <text>(12mL STD)</text> </ observationRange> </referenceRange> </observation> </ component> <component> <observation moodCode="EVN" classCode="OBS"> <templateId root="216.840.1.238022.10.20.22.4.2" /> <id nullFlavor="NA" /> <code codeSystem="local" code="WBCU" displayName=" UA WBC" /> <statusCode code="completed" /> <effectiveTime value="699251676381" /> <value unit="wbc/hpf" xsi:type="PQ" value="2-5 " /> <referenceRange> <observationRange> <text> 0 - 5</text> </observationRange> </referenceRange> </ observation> </component> </organizer> </entry> <entry> <organizer moodCode="EVN" classCode="BATTERY"> <templateId root= "216.840.1.366057.10..22.4.1" /> <id nullFlavor="NA" /> <code codeSystem="local" code="PREGU" displayName="UR TEST" /> < statusCode code="completed" /> <component> <observation moodCode= "EVN" classCode="OBS"> <templateId root="216.840.1.565692.10.20.22.4.2 " /> <id nullFlavor="NA" /> <code codeSystem="local" code= "PREGU" displayName="UR TEST" /> <statusCode code="completed " /> <effectiveTime value="713863977989" /> <value xsi:type= "ST" value="<pre><b>UR TEST</b> NEGATIVE</pre>" /> < referenceRange> <observationRange> <text>NEGATIVE</text > </observationRange> </referenceRange> </observation > </component> <component> <observation moodCode="EVN" classCode="OBS"> <templateId root="216.840.1.834802.10..22.4.2" /> <id nullFlavor="NA" /> <code codeSystem="local" code="MB" displayName="Microbiology" /> <statusCode code="completed" /> <effectiveTime value="504284192196" /> <value xsi:type="ST" value="<pre ><b>UR TEST</b> NEGATIVE</pre>" /> <referenceRange> <observationRange> <text /> </observationRange> </referenceRange> </observation> </component> </organizer> </entry> <entry> <organizer moodCode="EVN" classCode="BATTERY"> < templateId root="2.16.840.1.397100.10..22.4.1" /> <id nullFlavor="NA" /> <code codeSystem="local" code="CBCD" displayName="CBC W/DIFF" /> < statusCode code="completed" /> <component> <observation moodCode= "EVN" classCode="OBS"> <templateId root="2.16.840.1.238526.10..22.4.2 " /> <id nullFlavor="NA" /> <code codeSystem="local" code="EO# " displayName="EOSINOPHIL #" /> <statusCode code="completed" /> <effectiveTime value="337681588194" /> <value xsi:type="ST" value="< pre><b>CBC W/DIFF</b> 5.83.8010.933.989.228.732.213.03710011545.92.30.50.1</pre> " /> <referenceRange> <observationRange> <text> 0.1-0.5</text> </observationRange> </referenceRange> </observation> </component> <component> <observation moodCode= "EVN" classCode="OBS"> <templateId root="2.16.840.1.905270.10..22.4.2 " /> <id nullFlavor="NA" /> <code codeSystem="local" code="EO& #37;" displayName="EOSINOPHIL %" /> <statusCode code="completed" / > <effectiveTime value="656210687409" /> <value xsi:type="ST" value="<pre><b>CBC W/DIFF</b> 5.83.8010.933.989.228.732.213.56570755759.92.30.50.1</pre>" /> < referenceRange> <observationRange> <text>2-4</text> </observationRange> </referenceRange> </observation> </component> <component> <observation moodCode="EVN" classCode= "OBS"> <templateId root="2.16.840.1.055334.10..22.4.2" /> < id nullFlavor="NA" /> <code codeSystem="local" code="GR#" displayName= "GRANULOCYTE #" /> <statusCode code="completed" /> < effectiveTime value="" /> <value xsi:type="ST" value="<pre> <b>CBC W/DIFF</b> 5.83.8010.933.989.228.732.213.18048918015.92.30.50.1</pre>" / > <referenceRange> <observationRange> <text>2.0 -9.0</text> </observationRange> </referenceRange> </ observation> </component> <component> <observation moodCode= "EVN" classCode="OBS"> <templateId root="840.1.088123.10..22.4.2 " /> <id nullFlavor="NA" /> <code codeSystem="local" code="GR& #37;" displayName="GRANULOCYTE %" /> <statusCode code="completed" / > <effectiveTime value="" /> <value xsi:type="ST" value="<pre><b>CBC W/DIFF</b> [id number]</pre>" /> < referenceRange> <observationRange> <text>50-75</text> </observationRange> </referenceRange> </observation> </component> <component> <observation moodCode="EVN" classCode= "OBS"> <templateId root="[id number]" /> < id nullFlavor="NA" /> <code codeSystem="local" code="LY#" displayName= "LYMPHOCYTE #" /> <statusCode code="completed" /> < effectiveTime value="" /> <value xsi:type="ST" value="<pre> <b>CBC W/DIFF</b> [id number]</pre>" / > <referenceRange> <observationRange> <text>1.0 -4.0</text> </observationRange> </referenceRange> </ observation> </component> <component> <observation moodCode= "EVN" classCode="OBS"> <templateId root="[id number] " /> <id nullFlavor="NA" /> <code codeSystem="local" code="LY& #37;" displayName="LYMPHOCYTE %" /> <statusCode code="completed" / > <effectiveTime value="" /> <value xsi:type="ST" value="<pre><b>CBC W/DIFF</b> 5.83.8010.933.989.228.732.213.28617030716.92.30.50.1</pre>" /> < interpretationCode codeSystem="local" code="*" /> <referenceRange> <observationRange> <text>20-30</text> </ observationRange> </referenceRange> </observation> </ component> <component> <observation moodCode="EVN" classCode="OBS"> <templateId root="2.16.840.1.138703.10..22.4.2" /> <id nullFlavor="NA" /> <code codeSystem="local" code="MCH" displayName= "MEAN CELL HGB" /> <statusCode code="completed" /> < effectiveTime value="" /> <value xsi:type="ST" value="<pre> <b>CBC W/DIFF</b> 5.83.8010.933.989.228.732.213.15365900310..30.50.1</pre>" / > <referenceRange> <observationRange> <text> 27.0-33.0</text> </observationRange> </referenceRange> </observation> </component> <component> <observation moodCode="EVN" classCode="OBS"> <templateId root= "216.840.1.966338.10.22.4.2" /> <id nullFlavor="NA" /> < code codeSystem="local" code="MCHC" displayName="MEAN CELL HGB CONCENTRATION" / > <statusCode code="completed" /> <effectiveTime value= "" /> <value xsi:type="ST" value="<pre><b>CBC W/DIFF</b> 5.83.8010.933.989.228.732.213.29196643839.92.30.50.1</pre>" /> < referenceRange> <observationRange> <text>32.0-37.0</text > </observationRange> </referenceRange> </observation > </component> <component> <observation moodCode="EVN" classCode="OBS"> <templateId root="16.840.1.847579.10.2022.4.2" /> <id nullFlavor="NA" /> <code codeSystem="local" code="MCV" displayName="MEAN CELL VOLUME" /> <statusCode code="completed" /> <effectiveTime value="" /> <value xsi:type="ST" value= "<pre><b>CBC W/DIFF</b> 5.838010.933.989.228.732.213.61763948286.30.50.1</ pre>" /> <referenceRange> <observationRange> < text>80.0-100.0</text> </observationRange> </referenceRange > </observation> </component> <component> <observation moodCode="EVN" classCode="OBS"> <templateId root= "840.1.750961.102022.4.2" /> <id nullFlavor="NA" /> < code codeSystem="local" code="MO#" displayName="MONOCYTE #" /> < statusCode code="completed" /> <effectiveTime value="" /> <value xsi:type="ST" value="<pre><b>CBC W/DIFF</b> 5.83.8010.933.989.228.732.213.00933981780.30.50.1</pre>" /> < referenceRange> <observationRange> <text>0.1-1.0</text> </observationRange> </referenceRange> </observation > </component> <component> <observation moodCode="EVN" classCode="OBS"> <templateId root="2.16.840.1.704939.10.20.22.4.2" /> <id nullFlavor="NA" /> <code codeSystem="local" code="MO% " displayName="MONOCYTE %" /> <statusCode code="completed" /> <effectiveTime value="[id number]" /> <value xsi:type="ST" value= "<pre><b>CBC W/DIFF</b> .8010.933.989.228.732.213.28774219066..1</ pre>" /> <interpretationCode codeSystem="local" code="*" /> < referenceRange> <observationRange> <text>4-6</text> </observationRange> </referenceRange> </observation> </component> <component> <observation moodCode="EVN" classCode= "OBS"> <templateId root="2.16.840.1.147023.10..22.4.2" /> < id nullFlavor="NA" /> <code codeSystem="local" code="RBC" displayName= "RED BLOOD CELL" /> <statusCode code="completed" /> < effectiveTime value="[id number]" /> <value xsi:type="ST" value="<pre> <b>CBC W/DIFF</b> 5.8010.933.989.228.732.213.73532676774..50.1</pre>" / > <interpretationCode codeSystem="local" code="*" /> < referenceRange> <observationRange> <text>4.00-6.00</text > </observationRange> </referenceRange> </observation > </component> <component> <observation moodCode="EVN" classCode="OBS"> <templateId root="2.16.840.1.970433.10..22.4.2" /> <id nullFlavor="NA" /> <code codeSystem="local" code="RDW" displayName="RED CELL DISTRIBUTION WIDTH" /> <statusCode code= "completed" /> <effectiveTime value="228248640146" /> <value xsi:type="ST" value="<pre><b>CBC W/DIFF</b> 5.83.8010.933.989.228.732.213.85815343127.92.30.50.1</pre>" /> < referenceRange> <observationRange> <text>11.0-15.6</text > </observationRange> </referenceRange> </observation > </component> <component> <observation moodCode="EVN" classCode="OBS"> <templateId root="2.16.840.1.590916.10..22.4.2" /> <id nullFlavor="NA" /> <code codeSystem="local" code="WBC" displayName="WHITE BLOOD CELL" /> <statusCode code="completed" /> <effectiveTime value="[id number]" /> <value xsi:type="ST" value= "<pre><b>CBC W/DIFF</b> 5.83.8010.933.989.228.732.213.13518325073.92.30.50.1</ pre>" /> <referenceRange> <observationRange> < text>5.0-10.0</text> </observationRange> </referenceRange> </observation> </component> <component> <observation moodCode="EVN" classCode="OBS"> <templateId root= "2.16.840.1.275799.10..22.4.2" /> <id nullFlavor="NA" /> < code codeSystem="local" code="HGBT" displayName="HEMOGLOBIN" /> < statusCode code="completed" /> <effectiveTime value="[id number]" /> <value xsi:type="ST" value="<pre><b>CBC W/DIFF</b> 5.83.8010.933.989.228.732.213.76523913172..30.50.1</pre>" /> < interpretationCode codeSystem="local" code="*" /> <referenceRange> <observationRange> <text>12.0-16.0</text> </ observationRange> </referenceRange> </observation> </ component> <component> <observation moodCode="EVN" classCode="OBS"> <templateId root="2.16.840.1.884925.10..22.4.2" /> <id nullFlavor="NA" /> <code codeSystem="local" code="HCTT" displayName= "HEMATOCRIT" /> <statusCode code="completed" /> < effectiveTime value="995294145067" /> <value xsi:type="ST" value="<pre> <b>CBC W/DIFF</b> 5.83.8010.933.989.228.732.213.03123356822.30.50.1</pre>" / > <interpretationCode codeSystem="local" code="*" /> < referenceRange> <observationRange> <text>37.0-47.0</text > </observationRange> </referenceRange> </observation > </component> <component> <observation moodCode="EVN" classCode="OBS"> <templateId root="216.840.1.876505.10..22.4.2" /> <id nullFlavor="NA" /> <code codeSystem="local" code="PLT" displayName="PLATELET COUNT" /> <statusCode code="completed" /> <effectiveTime value="527931897003" /> <value xsi:type="ST" value="< pre><b>CBC W/DIFF</b> 5.83.8010.933.989.228.732.213.15181145819.30.50.1</pre> " /> <referenceRange> <observationRange> <text> 150-400</text> </observationRange> </referenceRange> </observation> </component> <component> <observation moodCode= "EVN" classCode="OBS"> <templateId root="16.840.1.163948.10..4.2 " /> <id nullFlavor="NA" /> <code codeSystem="local" code="MB " displayName="Microbiology" /> <statusCode code="completed" /> <effectiveTime value="329198322307" /> <value xsi:type="ST" value="< pre><b>CBC W/DIFF</b> 5.838010.933.989.228.732.213.49482084670.3050.1</pre> " /> <referenceRange> <observationRange> <text /> </observationRange> </referenceRange> </ observation> </component> </organizer> </entry> <entry> <organizer moodCode="EVN" classCode="BATTERY"> <templateId root= "16.840.1.627787.10..22.4.1" /> <id nullFlavor="NA" /> <code codeSystem="local" code="iCHEM8" displayName="CHEM/HEM PROFILE-BEDSIDE" /> <statusCode code="completed" /> <component> <observation moodCode= "EVN" classCode="OBS"> <templateId root="216.840.1.505887.10..22.4.2 " /> <id nullFlavor="NA" /> <code codeSystem="local" code="K" displayName="POTASSIUM" /> <statusCode code="completed" /> < effectiveTime value="673879526743" /> <value xsi:type="ST" value="<pre> <b>CHEM/HEM PROFILE-BEDSIDE</b> Znkrwje42.53.5Hukobwi5955.622816545427.43.9</ pre>" /> <interpretationCode codeSystem="local" code="*" /> < referenceRange> <observationRange> <text>3.5-5.3</text> </observationRange> </referenceRange> </observation > </component> <component> <observation moodCode="EVN" classCode="OBS"> <templateId root="07.12.840.1.436510.10...4.2" /> <id nullFlavor="NA" /> <code codeSystem="local" code="CMETHOD " displayName="METHOD" /> <statusCode code="completed" /> < effectiveTime value="779367600569" /> <value xsi:type="ST" value="<pre> <b>CHEM/HEM PROFILE-BEDSIDE</b> Dcvcanm61.531.8Mvqaxlf1266.844202651917.43.9</ pre>" /> <referenceRange> <observationRange> < text /> </observationRange> </referenceRange> </ observation> </component> <component> <observation moodCode= "EVN" classCode="OBS"> <templateId root="216.840.1.002761.10..22.4.2 " /> <id nullFlavor="NA" /> <code codeSystem="local" code="GAP " displayName="ANION GAP" /> <statusCode code="completed" /> < effectiveTime value="" /> <value xsi:type="ST" value="<pre> <b>CHEM/HEM PROFILE-BEDSIDE</b> Boqraef12.1Fwnnvxj6031.791150012270.43.9</ pre>" /> <referenceRange> <observationRange> < text>10-20</text> </observationRange> </referenceRange> </observation> </component> <component> <observation moodCode="EVN" classCode="OBS"> <templateId root= "2.16.840.1.101729.10..4.2" /> <id nullFlavor="NA" /> < code codeSystem="local" code="HMETHOD" displayName="METHOD" /> < statusCode code="completed" /> <effectiveTime value="" /> <value xsi:type="ST" value="<pre><b>CHEM/HEM PROFILE-BEDSIDE</b> Jpoirnq21.0Bxxoypv1598.797921717519.43.9</pre>" /> <referenceRange > <observationRange> <text /> </ observationRange> </referenceRange> </observation> </ component> <component> <observation moodCode="EVN" classCode="OBS"> <templateId root="2.16.840.1.524559.10..4.2" /> <id nullFlavor="NA" /> <code codeSystem="local" code="GLU" displayName= "GLUCOSE" /> <statusCode code="completed" /> <effectiveTime value="" /> <value xsi:type="ST" value="<pre><b>CHEM/HEM PROFILE-BEDSIDE</b> Hozhqxf4753.6Skiiktr8412.467684916054.43.9</pre>" /> <referenceRange> <observationRange> <text>70-99</ text> </observationRange> </referenceRange> </ observation> </component> <component> <observation moodCode= "EVN" classCode="OBS"> <templateId root="2.16.840.1.210676.10..22.4.2 " /> <id nullFlavor="NA" /> <code codeSystem="local" code="BUN " displayName="BLOOD UREA NITROGEN" /> <statusCode code="completed" /> <effectiveTime value="859011809978" /> <value xsi:type="ST" value="<pre><b>CHEM/HEM PROFILE-BEDSIDE</b> Cgirnnr91.531.0Pecqaet4764.808665447951.43.9</pre>" /> <referenceRange > <observationRange> <text>7-20</text> </ observationRange> </referenceRange> </observation> </ component> <component> <observation moodCode="EVN" classCode="OBS"> <templateId root="2.16.840.1.528867.10..22.4.2" /> <id nullFlavor="NA" /> <code codeSystem="local" code="CREAT" displayName= "CREATININE" /> <statusCode code="completed" /> < effectiveTime value="401027685259" /> <value xsi:type="ST" value="<pre> <b>CHEM/HEM PROFILE-BEDSIDE</b> Fqflrub15.531.7Rhphpfr7704.596089640698.43.9</ pre>" /> <interpretationCode codeSystem="local" code="*" /> < referenceRange> <observationRange> <text>0.6-1.0</text> </observationRange> </referenceRange> </observation > </component> <component> <observation moodCode="EVN" classCode="OBS"> <templateId root="2.840.1.499348.10..22.4.2" /> <id nullFlavor="NA" /> <code codeSystem="local" code="HGBT" displayName="HEMOGLOBIN" /> <statusCode code="completed" /> < effectiveTime value="655731055580" /> <value xsi:type="ST" value="<pre> <b>CHEM/HEM PROFILE-BEDSIDE</b> Jpxgpmp54531.8Nztgaeu3564.485864360671.43.9</ pre>" /> <interpretationCode codeSystem="local" code="*" /> < referenceRange> <observationRange> <text>12.0-16.0</text > </observationRange> </referenceRange> </observation > </component> <component> <observation moodCode="EVN" classCode="OBS"> <templateId root="07.12.840.1.711144.10...4.2" /> <id nullFlavor="NA" /> <code codeSystem="local" code="HCTT" displayName="HEMATOCRIT" /> <statusCode code="completed" /> < effectiveTime value="867810022915" /> <value xsi:type="ST" value="<pre> <b>CHEM/HEM PROFILE-BEDSIDE</b> Symsevv89531.4Ppistiz9615.613275203716.43.9</ pre>" /> <interpretationCode codeSystem="local" code="*" /> < referenceRange> <observationRange> <text>37.0-47.0</text > </observationRange> </referenceRange> </observation > </component> <component> <observation moodCode="EVN" classCode="OBS"> <templateId root="07.12.840.1.058714.10..4.2" /> <id nullFlavor="NA" /> <code codeSystem="local" code="NA" displayName="SODIUM" /> <statusCode code="completed" /> < effectiveTime value="175256054250" /> <value xsi:type="ST" value="<pre> <b>CHEM/HEM PROFILE-BEDSIDE</b> Ezysgzi67.531.2Epajxqa3689.652284574476.43.9</ pre>" /> <referenceRange> <observationRange> < text>135-148</text> </observationRange> </referenceRange> </observation> </component> <component> <observation moodCode="EVN" classCode="OBS"> <templateId root= "216.840.1.387377.03.15.224.2" /> <id nullFlavor="NA" /> < code codeSystem="local" code="CL" displayName="CHLORIDE" /> < statusCode code="completed" /> <effectiveTime value="064057565062" /> <value xsi:type="ST" value="<pre><b>CHEM/HEM PROFILE-BEDSIDE</b> Jwbhclc86.531.4Iorpjdd1464.054648385459.43.9</pre>" /> < interpretationCode codeSystem="local" code="*" /> <referenceRange> <observationRange> <text>98-110</text> </ observationRange> </referenceRange> </observation> </ component> <component> <observation moodCode="EVN" classCode="OBS"> <templateId root="216.840.1.586695.03.15.22.4.2" /> <id nullFlavor="NA" /> <code codeSystem="local" code="CO2" displayName= "CARBON DIOXIDE" /> <statusCode code="completed" /> < effectiveTime value="327659709451" /> <value xsi:type="ST" value="<pre> <b>CHEM/HEM PROFILE-BEDSIDE</b> Favtigl63.531.3Kwimhdl7400.954595119769.43.9</ pre>" /> <interpretationCode codeSystem="local" code="*" /> < referenceRange> <observationRange> <text>21-32</text> </observationRange> </referenceRange> </observation> </component> <component> <observation moodCode="EVN" classCode= "OBS"> <templateId root="216.840.1.104447.10..22.4.2" /> < id nullFlavor="NA" /> <code codeSystem="local" code="CAION" displayName ="CALCIUM IONIZED" /> <statusCode code="completed" /> < effectiveTime value="718701672146" /> <value xsi:type="ST" value="<pre> <b>CHEM/HEM PROFILE-BEDSIDE</b> Ysazzva40.531.1Ftdzqve9934.260227336392.43.9</ pre>" /> <interpretationCode codeSystem="local" code="*" /> < referenceRange> <observationRange> <text>4.5-5.3</text> </observationRange> </referenceRange> </observation > </component> <component> <observation moodCode="EVN" classCode="OBS"> <templateId root="07.12.840.1.639204.10..22.4.2" /> <id nullFlavor="NA" /> <code codeSystem="local" code="MB" displayName="Microbiology" /> <statusCode code="completed" /> <effectiveTime value="311127266361" /> <value xsi:type="ST" value="<pre ><b>CHEM/HEM PROFILE-BEDSIDE</b> Rvcvsdl49.531.4Frnczrl7950.142149249766.43.9</ pre>" /> <referenceRange> <observationRange> < text /> </observationRange> </referenceRange> </ observation> </component> </organizer> </entry> <entry> <organizer moodCode="EVN" classCode="BATTERY"> <templateId root= "16.840.1.234997.10.4.1" /> <id nullFlavor="NA" /> <code codeSystem="local" code="CBCD" displayName="CBC W/DIFF" /> <statusCode code ="completed" /> <component> <observation moodCode="EVN" classCode= "OBS"> <templateId root="16.840.1.085513.03.15.22.4.2" /> < id nullFlavor="NA" /> <code codeSystem="local" code="EO#" displayName= "EOSINOPHIL #" /> <statusCode code="completed" /> < effectiveTime value="" /> <value unit="k/cumm" xsi:type="PQ " value="0.2" /> <referenceRange> <observationRange> <text>0.1-0.5</text> </observationRange> </ referenceRange> </observation> </component> <component> <observation moodCode="EVN" classCode="OBS"> <templateId root= "07.12.840.1.333746.10.4.2" /> <id nullFlavor="NA" /> < code codeSystem="local" code="EO%" displayName="EOSINOPHIL %" /> <statusCode code="completed" /> <effectiveTime value="" /> <value unit="%" xsi:type="PQ" value="2" /> < referenceRange> <observationRange> <text>2-4</text> </observationRange> </referenceRange> </observation> </component> <component> <observation moodCode="EVN" classCode= "OBS"> <templateId root="16.840.1.389421.1022.4.2" /> < id nullFlavor="NA" /> <code codeSystem="local" code="GR#" displayName= "GRANULOCYTE #" /> <statusCode code="completed" /> < effectiveTime value="" /> <value unit="k/cumm" xsi:type="PQ " value="3.6" /> <referenceRange> <observationRange> <text>2.0-9.0</text> </observationRange> </ referenceRange> </observation> </component> <component> <observation moodCode="EVN" classCode="OBS"> <templateId root= "07.12.840.1.573848.03.15.22.4.2" /> <id nullFlavor="NA" /> < code codeSystem="local" code="GR%" displayName="GRANULOCYTE %" /> <statusCode code="completed" /> <effectiveTime value=" " /> <value unit="%" xsi:type="PQ" value="52" /> < referenceRange> <observationRange> <text>50-75</text> </observationRange> </referenceRange> </observation> </component> <component> <observation moodCode="EVN" classCode= "OBS"> <templateId root="16.840.1.698850.10.22.4.2" /> < id nullFlavor="NA" /> <code codeSystem="local" code="LY#" displayName= "LYMPHOCYTE #" /> <statusCode code="completed" /> < effectiveTime value="" /> <value unit="k/cumm" xsi:type="PQ " value="2.5" /> <referenceRange> <observationRange> <text>1.0-4.0</text> </observationRange> </ referenceRange> </observation> </component> <component> <observation moodCode="EVN" classCode="OBS"> <templateId root= "07.12.840.1.143540.10.20.22.4.2" /> <id nullFlavor="NA" /> < code codeSystem="local" code="LY%" displayName="LYMPHOCYTE %" /> <statusCode code="completed" /> <effectiveTime value="" /> <value unit="%" xsi:type="PQ" value="36" /> < interpretationCode codeSystem="local" code="*" /> <referenceRange> <observationRange> <text>20-30</text> </ observationRange> </referenceRange> </observation> </ component> <component> <observation moodCode="EVN" classCode="OBS"> <templateId root="840.1.238663.1022.4.2" /> <id nullFlavor="NA" /> <code codeSystem="local" code="MCH" displayName= "MEAN CELL HGB" /> <statusCode code="completed" /> < effectiveTime value="" /> <value unit="pg" xsi:type="PQ" value="28.4" /> <referenceRange> <observationRange> <text>27.0-33.0</text> </observationRange> </ referenceRange> </observation> </component> <component> <observation moodCode="EVN" classCode="OBS"> <templateId root= "07.12.840.1.209137.10.20.22.4.2" /> <id nullFlavor="NA" /> < code codeSystem="local" code="MCHC" displayName="MEAN CELL HGB CONCENTRATION" / > <statusCode code="completed" /> <effectiveTime value= "" /> <value unit="g/dL" xsi:type="PQ" value="32.0" /> <referenceRange> <observationRange> <text>32.0- 37.0</text> </observationRange> </referenceRange> </ observation> </component> <component> <observation moodCode= "EVN" classCode="OBS"> <templateId root="216.840.1.421268.10.20.22.4.2 " /> <id nullFlavor="NA" /> <code codeSystem="local" code="MCV " displayName="MEAN CELL VOLUME" /> <statusCode code="completed" /> <effectiveTime value="" /> <value unit="fl" xsi:type ="PQ" value="88.8" /> <referenceRange> <observationRange> <text>80.0-100.0</text> </observationRange> </ referenceRange> </observation> </component> <component> <observation moodCode="EVN" classCode="OBS"> <templateId root= "216.840.1.769904.10.20.22.4.2" /> <id nullFlavor="NA" /> < code codeSystem="local" code="MO#" displayName="MONOCYTE #" /> < statusCode code="completed" /> <effectiveTime value="" /> <value unit="k/cumm" xsi:type="PQ" value="0.7" /> < referenceRange> <observationRange> <text>0.1-1.0</text> </observationRange> </referenceRange> </observation > </component> <component> <observation moodCode="EVN" classCode="OBS"> <templateId root="216.840.1.485906.10.20.22.4.2" /> <id nullFlavor="NA" /> <code codeSystem="local" code="MO% " displayName="MONOCYTE %" /> <statusCode code="completed" /> <effectiveTime value="" /> <value unit="%" xsi: type="PQ" value="10" /> <interpretationCode codeSystem="local" code="* " /> <referenceRange> <observationRange> <text> 4-6</text> </observationRange> </referenceRange> </ observation> </component> <component> <observation moodCode= "EVN" classCode="OBS"> <templateId root="16.840.1.528144.10.22.4.2 " /> <id nullFlavor="NA" /> <code codeSystem="local" code="RBC " displayName="RED BLOOD CELL" /> <statusCode code="completed" /> <effectiveTime value="" /> <value unit="m/cumm" xsi: type="PQ" value="4.12" /> <referenceRange> <observationRange > <text>4.00-6.00</text> </observationRange> </ referenceRange> </observation> </component> <component> <observation moodCode="EVN" classCode="OBS"> <templateId root= "07.12.840.1.361946.10.20.22.4.2" /> <id nullFlavor="NA" /> < code codeSystem="local" code="RDW" displayName="RED CELL DISTRIBUTION WIDTH" /> <statusCode code="completed" /> <effectiveTime value= "" /> <value unit="%" xsi:type="PQ" value="15.0" /> <referenceRange> <observationRange> <text>11.0- 15.6</text> </observationRange> </referenceRange> </ observation> </component> <component> <observation moodCode= "EVN" classCode="OBS"> <templateId root="07.12.840.1.974073.10.20.22.4.2 " /> <id nullFlavor="NA" /> <code codeSystem="local" code="WBC " displayName="WHITE BLOOD CELL" /> <statusCode code="completed" /> <effectiveTime value="" /> <value unit="k/cumm" xsi: type="PQ" value="6.9" /> <referenceRange> <observationRange > <text>5.0-10.0</text> </observationRange> </ referenceRange> </observation> </component> <component> <observation moodCode="EVN" classCode="OBS"> <templateId root= "07.12.840.1.625212.10..22.4.2" /> <id nullFlavor="NA" /> < code codeSystem="local" code="HGBT" displayName="HEMOGLOBIN" /> < statusCode code="completed" /> <effectiveTime value="" /> <value unit="gm/dL" xsi:type="PQ" value="11.7" /> < interpretationCode codeSystem="local" code="*" /> <referenceRange> <observationRange> <text>12.0-16.0</text> </ observationRange> </referenceRange> </observation> </ component> <component> <observation moodCode="EVN" classCode="OBS"> <templateId root="07.12.840.1.587041.10.20.22.4.2" /> <id nullFlavor="NA" /> <code codeSystem="local" code="HCTT" displayName= "HEMATOCRIT" /> <statusCode code="completed" /> < effectiveTime value="" /> <value unit="%" xsi:type="PQ " value="36.6" /> <interpretationCode codeSystem="local" code="*" /> <referenceRange> <observationRange> <text>37.0- 47.0</text> </observationRange> </referenceRange> </ observation> </component> <component> <observation moodCode= "EVN" classCode="OBS"> <templateId root="216.840.1.781542.03.15.22.4.2 " /> <id nullFlavor="NA" /> <code codeSystem="local" code="PLT " displayName="PLATELET COUNT" /> <statusCode code="completed" /> <effectiveTime value="" /> <value unit="k/cumm" xsi: type="PQ" value="193" /> <referenceRange> <observationRange > <text>150-450</text> </observationRange> </ referenceRange> </observation> </component> </organizer> </entry > <entry> <organizer moodCode="EVN" classCode="BATTERY"> <templateId root="16.840.1.502772.03.15.22.4.1" /> <id nullFlavor="NA" /> <code codeSystem="local" code="PREG" displayName=" TEST, SERUM" /> < statusCode code="completed" /> <component> <observation moodCode= "EVN" classCode="OBS"> <templateId root="16.840.1.511642.03.15.22.4.2 " /> <id nullFlavor="NA" /> <code codeSystem="local" code= "PREG" displayName=" TEST, SERUM" /> <statusCode code= "completed" /> <effectiveTime value="" /> <value unit="" xsi:type="PQ" value="NEGATIVE" /> <referenceRange> < observationRange> <text>NEGATIVE</text> </ observationRange> </referenceRange> </observation> </ component> </organizer> </entry> <entry> <organizer moodCode="EVN" classCode="BATTERY"> <templateId root="[id number]" /> <id nullFlavor="NA" /> <code codeSystem="local" code="METABC" displayName="METABOLIC PANEL, COMPREHN" /> <statusCode code="completed" /> <component> <observation moodCode="EVN" classCode="OBS"> < templateId root="[id number]" /> <id nullFlavor="NA " /> <code codeSystem="local" code="K" displayName="POTASSIUM" /> <statusCode code="completed" /> <effectiveTime value=" " /> <value unit="mmol/L" xsi:type="PQ" value="4.0" /> < referenceRange> <observationRange> <text>3.5-5.3</text> </observationRange> </referenceRange> </observation > </component> <component> <observation moodCode="EVN" classCode="OBS"> <templateId root="[id number]" /> <id nullFlavor="NA" /> <code codeSystem="local" code="eGFR" displayName="EST GFR (MDRD)" /> <statusCode code="completed" /> <effectiveTime value="" /> <value unit="mL/min" xsi:type ="PQ" value="> 60" /> <referenceRange> <observationRange > <text>> 59</text> </observationRange> </ referenceRange> </observation> </component> <component> <observation moodCode="EVN" classCode="OBS"> <templateId root= "16.840.1.121540.10..22.4.2" /> <id nullFlavor="NA" /> < code codeSystem="local" code="GAP" displayName="ANION GAP" /> < statusCode code="completed" /> <effectiveTime value="" /> <value unit="mmol/L" xsi:type="PQ" value="8" /> < referenceRange> <observationRange> <text>5-15</text> </observationRange> </referenceRange> </observation> </component> <component> <observation moodCode="EVN" classCode= "OBS"> <templateId root="07.12.840.1.170079.10..4.2" /> < id nullFlavor="NA" /> <code codeSystem="local" code="eCrCl" displayName ="EST CrCl (CG)" /> <statusCode code="completed" /> < effectiveTime value="" /> <value unit="mL/min" xsi:type="PQ " value="> 60" /> <referenceRange> <observationRange> <text>> 59</text> </observationRange> </ referenceRange> </observation> </component> <component> <observation moodCode="EVN" classCode="OBS"> <templateId root= "07.12.840.1.041513.10.20.22.4.2" /> <id nullFlavor="NA" /> < code codeSystem="local" code="GLU" displayName="GLUCOSE" /> < statusCode code="completed" /> <effectiveTime value="" /> <value unit="mg/dL" xsi:type="PQ" value="72" /> < referenceRange> <observationRange> <text>70-99</text> </observationRange> </referenceRange> </observation> </component> <component> <observation moodCode="EVN" classCode= "OBS"> <templateId root="216.840.1.156029.1022.4.2" /> < id nullFlavor="NA" /> <code codeSystem="local" code="CA" displayName= "CALCIUM" /> <statusCode code="completed" /> <effectiveTime value="" /> <value unit="mg/dL" xsi:type="PQ" value="8.7" / > <referenceRange> <observationRange> <text>8.5 -10.1</text> </observationRange> </referenceRange> </ observation> </component> <component> <observation moodCode= "EVN" classCode="OBS"> <templateId root="07.12.840.1.457274.1022.4.2 " /> <id nullFlavor="NA" /> <code codeSystem="local" code="BUN " displayName="BLOOD UREA NITROGEN" /> <statusCode code="completed" /> <effectiveTime value="" /> <value unit="mg/dL" xsi:type="PQ" value="9" /> <referenceRange> < observationRange> <text>7-20</text> </observationRange> </referenceRange> </observation> </component> < component> <observation moodCode="EVN" classCode="OBS"> < templateId root="16.840.1.105008.10.20.22.4.2" /> <id nullFlavor="NA " /> <code codeSystem="local" code="CREAT" displayName="CREATININE" /> <statusCode code="completed" /> <effectiveTime value= "" /> <value unit="mg/dL" xsi:type="PQ" value="0.7" /> <referenceRange> <observationRange> <text>0.6-1.0< /text> </observationRange> </referenceRange> </ observation> </component> <component> <observation moodCode= "EVN" classCode="OBS"> <templateId root="216.840.1.065776.10..22.4.2 " /> <id nullFlavor="NA" /> <code codeSystem="local" code="NA " displayName="SODIUM" /> <statusCode code="completed" /> < effectiveTime value="" /> <value unit="mmol/L" xsi:type="PQ " value="140" /> <referenceRange> <observationRange> <text>135-148</text> </observationRange> </ referenceRange> </observation> </component> <component> <observation moodCode="EVN" classCode="OBS"> <templateId root= "16.840.1.765048.10.20.22.4.2" /> <id nullFlavor="NA" /> < code codeSystem="local" code="CL" displayName="CHLORIDE" /> < statusCode code="completed" /> <effectiveTime value="" /> <value unit="mmol/L" xsi:type="PQ" value="103" /> < referenceRange> <observationRange> <text>98-110</text> </observationRange> </referenceRange> </observation> </component> <component> <observation moodCode="EVN" classCode ="OBS"> <templateId root="216.840.1.967938.10..22.4.2" /> < id nullFlavor="NA" /> <code codeSystem="local" code="AST" displayName= "AST/SGOT" /> <statusCode code="completed" /> <effectiveTime value="" /> <value unit="Units/L" xsi:type="PQ" value="203 " /> <interpretationCode codeSystem="local" code="*" /> < referenceRange> <observationRange> <text>10-37</text> </observationRange> </referenceRange> </observation> </component> <component> <observation moodCode="EVN" classCode= "OBS"> <templateId root="216.840.1.704549.10..4.2" /> < id nullFlavor="NA" /> <code codeSystem="local" code="ALT" displayName= "ALT/SGPT" /> <statusCode code="completed" /> <effectiveTime value="" /> <value unit="Units/L" xsi:type="PQ" value="277 " /> <interpretationCode codeSystem="local" code="*" /> < referenceRange> <observationRange> <text>< 66</text> </observationRange> </referenceRange> </observation > </component> <component> <observation moodCode="EVN" classCode="OBS"> <templateId root="07.12.840.1.184530.10..4.2" /> <id nullFlavor="NA" /> <code codeSystem="local" code="CO2" displayName="CARBON DIOXIDE" /> <statusCode code="completed" /> <effectiveTime value="" /> <value unit="mmol/L" xsi:type ="PQ" value="29" /> <referenceRange> <observationRange> <text>21-32</text> </observationRange> </ referenceRange> </observation> </component> <component> <observation moodCode="EVN" classCode="OBS"> <templateId root= "216.840.1.167251.10.4.2" /> <id nullFlavor="NA" /> < code codeSystem="local" code="TP" displayName="TOTAL PROTEIN" /> < statusCode code="completed" /> <effectiveTime value="" /> <value unit="gm/dL" xsi:type="PQ" value="7.0" /> < referenceRange> <observationRange> <text>6.4-8.2</text> </observationRange> </referenceRange> </observation > </component> <component> <observation moodCode="EVN" classCode="OBS"> <templateId root="07.12.840.1.182785.03.15.22.4.2" /> <id nullFlavor="NA" /> <code codeSystem="local" code="ALB" displayName="ALBUMIN" /> <statusCode code="completed" /> < effectiveTime value="" /> <value unit="gm/dL" xsi:type="PQ " value="3.4" /> <referenceRange> <observationRange> <text>3.4-5.0</text> </observationRange> </ referenceRange> </observation> </component> <component> <observation moodCode="EVN" classCode="OBS"> <templateId root= "16.840.1.224433...4.2" /> <id nullFlavor="NA" /> < code codeSystem="local" code="BILTOT" displayName="BILI TOTAL" /> < statusCode code="completed" /> <effectiveTime value="" /> <value unit="mg/dL" xsi:type="PQ" value="0.2" /> < referenceRange> <observationRange> <text>0.0-1.0</text> </observationRange> </referenceRange> </observation > </component> <component> <observation moodCode="EVN" classCode="OBS"> <templateId root="07.12.840.1.021847.1022.4.2" /> <id nullFlavor="NA" /> <code codeSystem="local" code="ALKP" displayName="ALKALINE PHOSPHATASE TOTAL" /> <statusCode code="completed " /> <effectiveTime value="" /> <value unit="IU/L " xsi:type="PQ" value="139" /> <interpretationCode codeSystem="local" code="*" /> <referenceRange> <observationRange> <text>45-117</text> </observationRange> </referenceRange> </observation> </component> </organizer> </entry> <entry> < organizer moodCode="EVN" classCode="BATTERY"> <templateId root= "840.1.903363.22.4.1" /> <id nullFlavor="NA" /> <code codeSystem="local" code="MAG" displayName="MAGNESIUM" /> <statusCode code= "completed" /> <component> <observation moodCode="EVN" classCode= "OBS"> <templateId root="07.12.840.1.575323.102022.4.2" /> < id nullFlavor="NA" /> <code codeSystem="local" code="MAG" displayName= "MAGNESIUM" /> <statusCode code="completed" /> <effectiveTime value="[id number]" /> <value unit="mg/dL" xsi:type="PQ" value="2.1" / > <referenceRange> <observationRange> <text>1.8 -2.4</text> </observationRange> </referenceRange> </ observation> </component> </organizer> </entry> <entry> <organizer moodCode="EVN" classCode="BATTERY"> <templateId root= "16.840.1.187276.10..22.4.1" /> <id nullFlavor="NA" /> <code codeSystem="local" code="PHEN" displayName="PHENYTOIN (DILANTIN)" /> < statusCode code="completed" /> <component> <observation moodCode= "EVN" classCode="OBS"> <templateId root="07.12.840.1.962336.10..22.4.2 " /> <id nullFlavor="NA" /> <code codeSystem="local" code= "PHEN" displayName="PHENYTOIN (DILANTIN)" /> <statusCode code= "completed" /> <effectiveTime value="447714496706" /> <value unit="mcg/mL" xsi:type="PQ" value="< 2.5" /> <interpretationCode codeSystem="local" code="*" /> <referenceRange> < observationRange> <text>10.0-20.0</text> </ observationRange> </referenceRange> </observation> </ component> </organizer> </entry> <entry> <organizer moodCode="EVN" classCode="BATTERY"> <templateId root="07.12.840.1.951676.10..22.4.1" /> <id nullFlavor="NA" /> <code codeSystem="local" code="VALP" displayName="VALPROIC ACID (DEPAKENE)" /> <statusCode code="completed" /> <component> <observation moodCode="EVN" classCode="OBS"> < templateId root="07.12.840.1.499200.10.20.22.4.2" /> <id nullFlavor="NA " /> <code codeSystem="local" code="VALP" displayName="VALPROIC ACID ( DEPAKENE)" /> <statusCode code="completed" /> <effectiveTime value="360900177147" /> <value unit="mcg/mL" xsi:type="PQ" value="< 3" /> <interpretationCode codeSystem="local" code="*" /> < referenceRange> <observationRange> <text>50-100</text> </observationRange> </referenceRange> </observation> </component> </organizer> </entry> <entry> <organizer moodCode= "EVN" classCode="BATTERY"> <templateId root="2.16.840.1.283716.10.20.22.4.1 " /> <id nullFlavor="NA" /> <code codeSystem="local" code="ALC" displayName="ALCOHOL (ETHANOL) SERUM" /> <statusCode code="completed" /> <component> <observation moodCode="EVN" classCode="OBS"> < templateId root="2.16.840.1.594120.10.20.22.4.2" /> <id nullFlavor="NA " /> <code codeSystem="local" code="ALC" displayName="ALCOHOL (ETHANOL ) SERUM" /> <statusCode code="completed" /> <effectiveTime value="451400273772" /> <value unit="mg/dL" xsi:type="PQ" value="< 10" /> <referenceRange> <observationRange> < text> < 10</text> </observationRange> </referenceRange> </observation> </component> </organizer> </entry> <entry> < organizer moodCode="EVN" classCode="BATTERY"> <templateId root= "2.16.840.1.020351.10..4.1" /> <id nullFlavor="NA" /> <code codeSystem="local" code="UA" displayName="URINALYSIS, ROUTINE" /> < statusCode code="completed" /> <component> <observation moodCode= "EVN" classCode="OBS"> <templateId root="840.1.709244.03.15.22.4.2 " /> <id nullFlavor="NA" /> <code codeSystem="local" code= "LEUESU" displayName="UA LEUKOCYTE ESTERASE DIPSTICK" /> <statusCode code="completed" /> <effectiveTime value="" /> < value unit="" xsi:type="PQ" value="1+" /> <interpretationCode codeSystem="local" code="*" /> <referenceRange> < observationRange> <text>NEGATIVE</text> </ observationRange> </referenceRange> </observation> </ component> <component> <observation moodCode="EVN" classCode="OBS"> <templateId root="840.1.407586.03.15.22.4.2" /> <id nullFlavor="NA" /> <code codeSystem="local" code="NITRIU" displayName= "UA NITRITE DIPSTICK" /> <statusCode code="completed" /> < effectiveTime value="" /> <value unit="" xsi:type="PQ" value="NEGATIVE" /> <referenceRange> <observationRange> <text>NEGATIVE</text> </observationRange> </ referenceRange> </observation> </component> <component> <observation moodCode="EVN" classCode="OBS"> <templateId root= "07.12.840.1.880321.03.15.22.4.2" /> <id nullFlavor="NA" /> < code codeSystem="local" code="PROTEIU" displayName="UA PROTEIN DIPSTICK" /> <statusCode code="completed" /> <effectiveTime value= "" /> <value unit="" xsi:type="PQ" value="TRACE" /> <referenceRange> <observationRange> <text>NEGATIVE</ text> </observationRange> </referenceRange> </ observation> </component> <component> <observation moodCode= "EVN" classCode="OBS"> <templateId root="16.840.1.825515.10...4.2 " /> <id nullFlavor="NA" /> <code codeSystem="local" code= "DGLUU" displayName="UA GLUCOSE DIPSTICK" /> <statusCode code= "completed" /> <effectiveTime value="" /> <value unit="" xsi:type="PQ" value="NEGATIVE" /> <referenceRange> < observationRange> <text>NEGATIVE</text> </ observationRange> </referenceRange> </observation> </ component> <component> <observation moodCode="EVN" classCode="OBS"> <templateId root="16.840.1.991514.10...4.2" /> <id nullFlavor="NA" /> <code codeSystem="local" code="KETONU" displayName= "UA KETONE DIPSTICK" /> <statusCode code="completed" /> < effectiveTime value="" /> <value unit="" xsi:type="PQ" value="NEGATIVE" /> <referenceRange> <observationRange> <text>NEGATIVE</text> </observationRange> </ referenceRange> </observation> </component> <component> <observation moodCode="EVN" classCode="OBS"> <templateId root= "07.12.840.1.438972.22.4.2" /> <id nullFlavor="NA" /> < code codeSystem="local" code="UROBILU" displayName="UA UROBILINOGEN DIPSTICK" / > <statusCode code="completed" /> <effectiveTime value= "" /> <value unit="" xsi:type="PQ" value="2+" /> < interpretationCode codeSystem="local" code="*" /> <referenceRange> <observationRange> <text>NORMAL</text> </ observationRange> </referenceRange> </observation> </ component> <component> <observation moodCode="EVN" classCode="OBS"> <templateId root="16.840.1.411457.03.15.22.4.2" /> <id nullFlavor="NA" /> <code codeSystem="local" code="BILU" displayName=" UA BILIRUBIN DIPSTICK" /> <statusCode code="completed" /> < effectiveTime value="" /> <value unit="" xsi:type="PQ" value="NEGATIVE" /> <referenceRange> <observationRange> <text>NEGATIVE</text> </observationRange> </ referenceRange> </observation> </component> <component> <observation moodCode="EVN" classCode="OBS"> <templateId root= "16.840.1.507903.10..4.2" /> <id nullFlavor="NA" /> < code codeSystem="local" code="LON" displayName="UA BLOOD DIPSTICK" /> < statusCode code="completed" /> <effectiveTime value="" /> <value unit="" xsi:type="PQ" value="1+" /> < interpretationCode codeSystem="local" code="*" /> <referenceRange> <observationRange> <text>NEGATIVE</text> </ observationRange> </referenceRange> </observation> </ component> <component> <observation moodCode="EVN" classCode="OBS"> <templateId root="2.16.840.1.806328.10.4.2" /> <id nullFlavor="NA" /> <code codeSystem="local" code="SPGRU" displayName= "UA SPECIFIC GRAVITY" /> <statusCode code="completed" /> < effectiveTime value="" /> <value unit="" xsi:type="PQ" value="1.020" /> <referenceRange> <observationRange> <text>1.015-1.025</text> </observationRange> </ referenceRange> </observation> </component> <component> <observation moodCode="EVN" classCode="OBS"> <templateId root= "216.840.1.891258.03.15.22.4.2" /> <id nullFlavor="NA" /> < code codeSystem="local" code="WILLOW" displayName="UR PH" /> <statusCode code="completed" /> <effectiveTime value="" /> < value unit="" xsi:type="PQ" value="6.0" /> <referenceRange> <observationRange> <text>5.0-7.0</text> </ observationRange> </referenceRange> </observation> </ component> </organizer> </entry> <entry> <organizer moodCode="EVN" classCode="BATTERY"> <templateId root="2.16.840.1.229674.10..4.1" /> <id nullFlavor="NA" /> <code codeSystem="local" code="UAMICRO" displayName="UA MICROSCOPIC" /> <statusCode code="completed" /> < component> <observation moodCode="EVN" classCode="OBS"> < templateId root="07.12.840.1.320723.10.20.22.4.2" /> <id nullFlavor="NA " /> <code codeSystem="local" code="BACU" displayName="UA BACTERIA" /> <statusCode code="completed" /> <effectiveTime value= "" /> <value unit="" xsi:type="PQ" value="3+" /> < interpretationCode codeSystem="local" code="*" /> <referenceRange> <observationRange> <text>NEGATIVE</text> </ observationRange> </referenceRange> </observation> </ component> <component> <observation moodCode="EVN" classCode="OBS"> <templateId root="07.12.840.1.871710.10...4.2" /> <id nullFlavor="NA" /> <code codeSystem="local" code="EPIU" displayName=" UA EPITHELIAL CELLS" /> <statusCode code="completed" /> < effectiveTime value="" /> <value unit="epi/hpf" xsi:type= "PQ" value="2+" /> <interpretationCode codeSystem="local" code="*" /> <referenceRange> <observationRange> <text>0 - 1 +</text> </observationRange> </referenceRange> </ observation> </component> <component> <observation moodCode= "EVN" classCode="OBS"> <templateId root="07.12.840.1.923221.10..22.4.2 " /> <id nullFlavor="NA" /> <code codeSystem="local" code= "MUCUSU" displayName="UA MUCUS" /> <statusCode code="completed" /> <effectiveTime value="" /> <value unit="" xsi:type= "PQ" value="3+" /> <interpretationCode codeSystem="local" code="*" /> <referenceRange> <observationRange> <text>NEG TO 1+</text> </observationRange> </referenceRange> </ observation> </component> <component> <observation moodCode= "EVN" classCode="OBS"> <templateId root="216.840.1.759708.10.22.4.2 " /> <id nullFlavor="NA" /> <code codeSystem="local" code= "RBCU" displayName="UA RBC" /> <statusCode code="completed" /> <effectiveTime value="" /> <value unit="rbc/hpf" xsi:type ="PQ" value="10-20" /> <interpretationCode codeSystem="local" code="*" /> <referenceRange> <observationRange> <text>0 - 3</text> </observationRange> </referenceRange> </ observation> </component> <component> <observation moodCode= "EVN" classCode="OBS"> <templateId root="07.12.840.1.490728.22.4.2 " /> <id nullFlavor="NA" /> <code codeSystem="local" code= "UAVOL" displayName="UA VOLUME FOR EXAM" /> <statusCode code="completed " /> <effectiveTime value="" /> <value unit="mL" xsi:type="PQ" value="5.0" /> <referenceRange> < observationRange> <text>(12mL STD)</text> </ observationRange> </referenceRange> </observation> </ component> <component> <observation moodCode="EVN" classCode="OBS"> <templateId root="07.12.840.1.500033.10..22.4.2" /> <id nullFlavor="NA" /> <code codeSystem="local" code="WBCU" displayName=" UA WBC" /> <statusCode code="completed" /> <effectiveTime value="[id number]" /> <value unit="wbc/hpf" xsi:type="PQ" value="5-10 " /> <interpretationCode codeSystem="local" code="*" /> < referenceRange> <observationRange> <text>0 - 5</text> </observationRange> </referenceRange> </observation> </component> </organizer> </entry> <entry> <organizer moodCode="EVN " classCode="BATTERY"> <templateId root="216.840.1.722638.10..22.4.1" / > <id nullFlavor="NA" /> <code codeSystem="local" code="DRUGAB" displayName="UR DRUGS OF ABUSE SCREEN" /> <statusCode code="completed" /> <component> <observation moodCode="EVN" classCode="OBS"> < templateId root="216.840.1.764760.10..22.4.2" /> <id nullFlavor="NA " /> <code codeSystem="local" code="AMPHU" displayName="UR AMPHETAMINES SCREEN" /> <statusCode code="completed" /> < effectiveTime value="186464078940" /> <value unit="" xsi:type="PQ" value="POS (>1000 ng/mL)" /> <interpretationCode codeSystem="local " code="*" /> <referenceRange> <observationRange> <text>NEGATIVE</text> </observationRange> </ referenceRange> </observation> </component> <component> <observation moodCode="EVN" classCode="OBS"> <templateId root= "216.840.1.296693.10..22.4.2" /> <id nullFlavor="NA" /> < code codeSystem="local" code="BARBU" displayName="UR BARBITURATE SCREEN" /> <statusCode code="completed" /> <effectiveTime value= "" /> <value unit="" xsi:type="PQ" value="NEG (< 200 ng /mL)" /> <referenceRange> <observationRange> < text>NEGATIVE</text> </observationRange> </referenceRange> </observation> </component> <component> <observation moodCode="EVN" classCode="OBS"> <templateId root= "2.16.840.1.618623.10..22.4.2" /> <id nullFlavor="NA" /> < code codeSystem="local" code="DAUCOMMENT" displayName="DRUGS OF ABUSE SCREEN COMMENT" /> <statusCode code="completed" /> <effectiveTime value="" /> <value unit="" xsi:type="PQ" value="" /> <referenceRange> <observationRange> <text /> </observationRange> </referenceRange> </observation> </component> <component> <observation moodCode="EVN" classCode= "OBS"> <templateId root="2.16.840.1.856896.10..22.4.2" /> < id nullFlavor="NA" /> <code codeSystem="local" code="OPIU" displayName= "UR OPIATES SCREEN" /> <statusCode code="completed" /> < effectiveTime value="" /> <value unit="" xsi:type="PQ" value="POS (> 300 ng/mL)" /> <interpretationCode codeSystem="local " code="*" /> <referenceRange> <observationRange> <text>NEGATIVE</text> </observationRange> </ referenceRange> </observation> </component> <component> <observation moodCode="EVN" classCode="OBS"> <templateId root= "2.16.840.1.359431.10..22.4.2" /> <id nullFlavor="NA" /> < code codeSystem="local" code="PCPU" displayName="UR PHENCYCLIDINE (PCP) SCREEN" /> <statusCode code="completed" /> <effectiveTime value= "" /> <value unit="" xsi:type="PQ" value="NEG (< 25 ng /mL)" /> <referenceRange> <observationRange> < text>NEGATIVE</text> </observationRange> </referenceRange> </observation> </component> <component> <observation moodCode="EVN" classCode="OBS"> <templateId root= "216.840.1.845783.10..4.2" /> <id nullFlavor="NA" /> < code codeSystem="local" code="THCU" displayName="UR CANNABINOIDS (THC) SCREEN" / > <statusCode code="completed" /> <effectiveTime value= "" /> <value unit="" xsi:type="PQ" value="NEG (< 50 ng /mL)" /> <referenceRange> <observationRange> < text>NEGATIVE</text> </observationRange> </referenceRange> </observation> </component> <component> <observation moodCode="EVN" classCode="OBS"> <templateId root= "216.840.1.300058.10..22.4.2" /> <id nullFlavor="NA" /> < code codeSystem="local" code="COCAU" displayName="UR COCAINE METABOLITE SCREEN" /> <statusCode code="completed" /> <effectiveTime value= "" /> <value unit="" xsi:type="PQ" value="NEG (< 300 ng /mL)" /> <referenceRange> <observationRange> < text>NEGATIVE</text> </observationRange> </referenceRange> </observation> </component> <component> <observation moodCode="EVN" classCode="OBS"> <templateId root= "216.840.1.208265.10.20.22.4.2" /> <id nullFlavor="NA" /> < code codeSystem="local" code="METHU" displayName="UR METHADONE SCREEN" /> <statusCode code="completed" /> <effectiveTime value=" " /> <value unit="" xsi:type="PQ" value="NEG (< 300 ng/mL)" /> <referenceRange> <observationRange> <text>NEGATIVE </text> </observationRange> </referenceRange> </ observation> </component> <component> <observation moodCode= "EVN" classCode="OBS"> <templateId root="216.840.1.512145.10..22.4.2 " /> <id nullFlavor="NA" /> <code codeSystem="local" code= "BENZU" displayName="UR BENZODIAZEPINE SCREEN" /> <statusCode code= "completed" /> <effectiveTime value="[id number]" /> <value unit="" xsi:type="PQ" value="POS (> 200 ng/mL)" /> < interpretationCode codeSystem="local" code="*" /> <referenceRange> <observationRange> <text>NEGATIVE</text> </ observationRange> </referenceRange> </observation> </ component> </organizer> </entry> <entry> <organizer moodCode="EVN" classCode="BATTERY"> <templateId root="2.16.840.1.085711.10..22.4.1" /> <id nullFlavor="NA" /> <code codeSystem="local" code="PT" displayName= "PROTHROMBIN TIME WITH INR" /> <statusCode code="completed" /> < component> <observation moodCode="EVN" classCode="OBS"> < templateId root="216.840.1.486415.10.22.4.2" /> <id nullFlavor="NA " /> <code codeSystem="local" code="INRX" displayName="INTERNATIONAL NORMAL RATIO" /> <statusCode code="completed" /> < effectiveTime value="" /> <value unit="" xsi:type="PQ" value="0.9" /> <referenceRange> <observationRange> <text>0.9-1.1</text> </observationRange> </ referenceRange> </observation> </component> <component> <observation moodCode="EVN" classCode="OBS"> <templateId root= "07.12.840.1.275751.03.15.22.4.2" /> <id nullFlavor="NA" /> < code codeSystem="local" code="PTPAT" displayName="PROTHROMBIN TIME" /> <statusCode code="completed" /> <effectiveTime value="" /> <value unit="sec" xsi:type="PQ" value="9.6" /> < referenceRange> <observationRange> <text>9.2-12.2</text > </observationRange> </referenceRange> </observation > </component> </organizer> </entry> <entry> <organizer moodCode= "EVN" classCode="BATTERY"> <templateId root="16.840.1.077551.10.22.4.1 " /> <id nullFlavor="NA" /> <code codeSystem="local" code="HEPAT" displayName="HEPATITIS PANEL-ACUTE" /> <statusCode code="completed" /> <component> <observation moodCode="EVN" classCode="OBS"> < templateId root="216.840.1.757525.10..22.4.2" /> <id nullFlavor="NA " /> <code codeSystem="local" code="HAVMAB" displayName="AB HEPATITIS A IGM" /> <statusCode code="completed" /> <effectiveTime value ="" /> <value unit="" xsi:type="PQ" value="NEGATIVE" /> <referenceRange> <observationRange> <text> NEGATIVE</text> </observationRange> </referenceRange> </observation> </component> <component> <observation moodCode ="EVN" classCode="OBS"> <templateId root= "216.840.1.578695.10...4.2" /> <id nullFlavor="NA" /> < code codeSystem="local" code="HBSAG" displayName="AG HEPATITIS B SURF." /> <statusCode code="completed" /> <effectiveTime value=" " /> <value unit="" xsi:type="PQ" value="NEGATIVE" /> < referenceRange> <observationRange> <text>NEGATIVE</text > </observationRange> </referenceRange> </observation > </component> <component> <observation moodCode="EVN" classCode="OBS"> <templateId root="16.840.1.895842.10...4.2" /> <id nullFlavor="NA" /> <code codeSystem="local" code="HBCMAB" displayName="AB HEPATITIS B CORE IGM" /> <statusCode code="completed" / > <effectiveTime value="[id number]" /> <value unit="" xsi: type="PQ" value="NEGATIVE" /> <referenceRange> < observationRange> <text>NEGATIVE</text> </ observationRange> </referenceRange> </observation> </ component> <component> <observation moodCode="EVN" classCode="OBS"> <templateId root="2.16.840.1.015891.10.4.2" /> <id nullFlavor="NA" /> <code codeSystem="local" code="HCVAB" displayName= "AB HEPATITIS C" /> <statusCode code="completed" /> < effectiveTime value="[id number]" /> <value unit="" xsi:type="PQ" value="NEGATIVE" /> <referenceRange> <observationRange> <text>NEGATIVE</text> </observationRange> </ referenceRange> </observation> </component> </organizer> </entry > <entry> <organizer moodCode="EVN" classCode="BATTERY"> <templateId root="216.840.1.151351.10..4.1" /> <id nullFlavor="NA" /> <code codeSystem="local" code="CBCD" displayName="CBC W/DIFF" /> <statusCode code ="completed" /> <component> <observation moodCode="EVN" classCode= "OBS"> <templateId root="2.16.840.1.187206.10..22.4.2" /> < id nullFlavor="NA" /> <code codeSystem="local" code="BA#" displayName= "BASOPHIL #" /> <statusCode code="completed" /> < effectiveTime value="720298968280" /> <value unit="k/cumm" xsi:type="PQ " value="0.0" /> <referenceRange> <observationRange> <text>0.0-0.2</text> </observationRange> </ referenceRange> </observation> </component> <component> <observation moodCode="EVN" classCode="OBS"> <templateId root= "16.840.1.543899.10..22.4.2" /> <id nullFlavor="NA" /> < code codeSystem="local" code="BA%" displayName="BASOPHIL %" /> <statusCode code="completed" /> <effectiveTime value="" /> <value unit="%" xsi:type="PQ" value="1" /> < referenceRange> <observationRange> <text>0-1</text> </observationRange> </referenceRange> </observation> </component> <component> <observation moodCode="EVN" classCode= "OBS"> <templateId root="07.12.840.1.355345.10..4.2" /> < id nullFlavor="NA" /> <code codeSystem="local" code="EO#" displayName= "EOSINOPHIL #" /> <statusCode code="completed" /> < effectiveTime value="" /> <value unit="k/cumm" xsi:type="PQ " value="0.1" /> <referenceRange> <observationRange> <text>0.1-0.5</text> </observationRange> </ referenceRange> </observation> </component> <component> <observation moodCode="EVN" classCode="OBS"> <templateId root= "07.12.840.1.082849.10.20.22.4.2" /> <id nullFlavor="NA" /> < code codeSystem="local" code="EO%" displayName="EOSINOPHIL %" /> <statusCode code="completed" /> <effectiveTime value="" /> <value unit="%" xsi:type="PQ" value="3" /> < referenceRange> <observationRange> <text>2-4</text> </observationRange> </referenceRange> </observation> </component> <component> <observation moodCode="EVN" classCode= "OBS"> <templateId root="07.12.840.1.629953.10.20.22.4.2" /> < id nullFlavor="NA" /> <code codeSystem="local" code="GR#" displayName= "GRANULOCYTE #" /> <statusCode code="completed" /> < effectiveTime value="" /> <value unit="k/cumm" xsi:type="PQ " value="1.9" /> <interpretationCode codeSystem="local" code="*" /> <referenceRange> <observationRange> <text>2.0-9.0 </text> </observationRange> </referenceRange> </ observation> </component> <component> <observation moodCode= "EVN" classCode="OBS"> <templateId root="840.1.788944.10.22.4.2 " /> <id nullFlavor="NA" /> <code codeSystem="local" code="GR& #37;" displayName="GRANULOCYTE %" /> <statusCode code="completed" / > <effectiveTime value="" /> <value unit="%" xsi:type="PQ" value="44" /> <interpretationCode codeSystem="local" code ="*" /> <referenceRange> <observationRange> < text>50-75</text> </observationRange> </referenceRange> </observation> </component> <component> <observation moodCode="EVN" classCode="OBS"> <templateId root= "07.12.840.1.998927.10.20.22.4.2" /> <id nullFlavor="NA" /> < code codeSystem="local" code="LY#" displayName="LYMPHOCYTE #" /> < statusCode code="completed" /> <effectiveTime value="" /> <value unit="k/cumm" xsi:type="PQ" value="1.9" /> < referenceRange> <observationRange> <text>1.0-4.0</text> </observationRange> </referenceRange> </observation > </component> <component> <observation moodCode="EVN" classCode="OBS"> <templateId root="216.840.1.680618.10.20.22.4.2" /> <id nullFlavor="NA" /> <code codeSystem="local" code="LY% " displayName="LYMPHOCYTE %" /> <statusCode code="completed" /> <effectiveTime value="" /> <value unit="%" xsi: type="PQ" value="44" /> <interpretationCode codeSystem="local" code="* " /> <referenceRange> <observationRange> <text> 20-30</text> </observationRange> </referenceRange> </ observation> </component> <component> <observation moodCode= "EVN" classCode="OBS"> <templateId root="16.840.1.242928.10.20.22.4.2 " /> <id nullFlavor="NA" /> <code codeSystem="local" code="MCH " displayName="MEAN CELL HGB" /> <statusCode code="completed" /> <effectiveTime value="" /> <value unit="pg" xsi:type= "PQ" value="27.7" /> <referenceRange> <observationRange> <text>27.0-33.0</text> </observationRange> </ referenceRange> </observation> </component> <component> <observation moodCode="EVN" classCode="OBS"> <templateId root= "16.840.1.500385.10.20.22.4.2" /> <id nullFlavor="NA" /> < code codeSystem="local" code="MCHC" displayName="MEAN CELL HGB CONCENTRATION" / > <statusCode code="completed" /> <effectiveTime value= "" /> <value unit="g/dL" xsi:type="PQ" value="31.4" /> <interpretationCode codeSystem="local" code="*" /> < referenceRange> <observationRange> <text>32.0-37.0</text > </observationRange> </referenceRange> </observation > </component> <component> <observation moodCode="EVN" classCode="OBS"> <templateId root="07.12.840.1.863805.1022.4.2" /> <id nullFlavor="NA" /> <code codeSystem="local" code="MCV" displayName="MEAN CELL VOLUME" /> <statusCode code="completed" /> <effectiveTime value="" /> <value unit="fl" xsi:type= "PQ" value="88.2" /> <referenceRange> <observationRange> <text>80.0-100.0</text> </observationRange> </ referenceRange> </observation> </component> <component> <observation moodCode="EVN" classCode="OBS"> <templateId root= "16.840.1.821381.10.20.22.4.2" /> <id nullFlavor="NA" /> < code codeSystem="local" code="MO#" displayName="MONOCYTE #" /> < statusCode code="completed" /> <effectiveTime value="" /> <value unit="k/cumm" xsi:type="PQ" value="0.4" /> < referenceRange> <observationRange> <text>0.1-1.0</text> </observationRange> </referenceRange> </observation > </component> <component> <observation moodCode="EVN" classCode="OBS"> <templateId root="216.840.1.544956.10..22.4.2" /> <id nullFlavor="NA" /> <code codeSystem="local" code="MO% " displayName="MONOCYTE %" /> <statusCode code="completed" /> <effectiveTime value="827898640847" /> <value unit="%" xsi: type="PQ" value="9" /> <interpretationCode codeSystem="local" code="*" /> <referenceRange> <observationRange> <text>4- 6</text> </observationRange> </referenceRange> </ observation> </component> <component> <observation moodCode= "EVN" classCode="OBS"> <templateId root="216.840.1.778458.03.15.22.4.2 " /> <id nullFlavor="NA" /> <code codeSystem="local" code="RBC " displayName="RED BLOOD CELL" /> <statusCode code="completed" /> <effectiveTime value="" /> <value unit="m/cumm" xsi: type="PQ" value="3.72" /> <interpretationCode codeSystem="local" code= "*" /> <referenceRange> <observationRange> < text>4.00-6.00</text> </observationRange> </referenceRange> </observation> </component> <component> <observation moodCode="EVN" classCode="OBS"> <templateId root= "216.840.1.401995..4.2" /> <id nullFlavor="NA" /> < code codeSystem="local" code="RDW" displayName="RED CELL DISTRIBUTION WIDTH" /> <statusCode code="completed" /> <effectiveTime value= "" /> <value unit="%" xsi:type="PQ" value="15.3" /> <referenceRange> <observationRange> <text>11.0- 15.6</text> </observationRange> </referenceRange> </ observation> </component> <component> <observation moodCode= "EVN" classCode="OBS"> <templateId root="216.840.1.776064.03.15.224.2 " /> <id nullFlavor="NA" /> <code codeSystem="local" code="WBC " displayName="WHITE BLOOD CELL" /> <statusCode code="completed" /> <effectiveTime value="" /> <value unit="k/cumm" xsi: type="PQ" value="4.4" /> <interpretationCode codeSystem="local" code="* " /> <referenceRange> <observationRange> <text> 5.0-10.0</text> </observationRange> </referenceRange> </observation> </component> <component> <observation moodCode ="EVN" classCode="OBS"> <templateId root= "16.840.1.334491.03.15.22.4.2" /> <id nullFlavor="NA" /> < code codeSystem="local" code="HGBT" displayName="HEMOGLOBIN" /> < statusCode code="completed" /> <effectiveTime value="" /> <value unit="gm/dL" xsi:type="PQ" value="10.3" /> < interpretationCode codeSystem="local" code="*" /> <referenceRange> <observationRange> <text>12.0-16.0</text> </ observationRange> </referenceRange> </observation> </ component> <component> <observation moodCode="EVN" classCode="OBS"> <templateId root="07.12.840.1.376674.10.20.22.4.2" /> <id nullFlavor="NA" /> <code codeSystem="local" code="HCTT" displayName= "HEMATOCRIT" /> <statusCode code="completed" /> < effectiveTime value="" /> <value unit="%" xsi:type="PQ " value="32.8" /> <interpretationCode codeSystem="local" code="*" /> <referenceRange> <observationRange> <text>37.0- 47.0</text> </observationRange> </referenceRange> </ observation> </component> <component> <observation moodCode= "EVN" classCode="OBS"> <templateId root="840.1.105554.10..4.2 " /> <id nullFlavor="NA" /> <code codeSystem="local" code="PLT " displayName="PLATELET COUNT" /> <statusCode code="completed" /> <effectiveTime value="" /> <value unit="k/cumm" xsi: type="PQ" value="162" /> <referenceRange> <observationRange > <text>150-400</text> </observationRange> </ referenceRange> </observation> </component> </organizer> </entry > <entry> <organizer moodCode="EVN" classCode="BATTERY"> <templateId root="07.12.840.1.431146.10.20.22.4.1" /> <id nullFlavor="NA" /> <code codeSystem="local" code="METABC" displayName="METABOLIC PANEL, COMPREHN" /> <statusCode code="completed" /> <component> <observation moodCode= "EVN" classCode="OBS"> <templateId root="07.12.840.1.786133.03.15.22.4.2 " /> <id nullFlavor="NA" /> <code codeSystem="local" code="K" displayName="POTASSIUM" /> <statusCode code="completed" /> < effectiveTime value="422788204637" /> <value unit="mmol/L" xsi:type="PQ " value="4.2" /> <referenceRange> <observationRange> <text>3.5-5.3</text> </observationRange> </ referenceRange> </observation> </component> <component> <observation moodCode="EVN" classCode="OBS"> <templateId root= "840.1.125564.03.15.22.4.2" /> <id nullFlavor="NA" /> < code codeSystem="local" code="eGFR" displayName="EST GFR (MDRD)" /> < statusCode code="completed" /> <effectiveTime value="629170210753" /> <value unit="mL/min" xsi:type="PQ" value="> 60" /> < referenceRange> <observationRange> <text>> 59</text> </observationRange> </referenceRange> </observation > </component> <component> <observation moodCode="EVN" classCode="OBS"> <templateId root="07.12.840.1.523545.03.15.22.4.2" /> <id nullFlavor="NA" /> <code codeSystem="local" code="GAP" displayName="ANION GAP" /> <statusCode code="completed" /> < effectiveTime value="686202732809" /> <value unit="mmol/L" xsi:type="PQ " value="6" /> <referenceRange> <observationRange> <text>5-15</text> </observationRange> </referenceRange > </observation> </component> <component> <observation moodCode="EVN" classCode="OBS"> <templateId root= "16.840.1.183864.10..22.4.2" /> <id nullFlavor="NA" /> < code codeSystem="local" code="eCrCl" displayName="EST CrCl (CG)" /> < statusCode code="completed" /> <effectiveTime value="315806173145" /> <value unit="mL/min" xsi:type="PQ" value="> 60" /> < referenceRange> <observationRange> <text>> 59</text> </observationRange> </referenceRange> </observation > </component> <component> <observation moodCode="EVN" classCode="OBS"> <templateId root="840.1.929120.10..4.2" /> <id nullFlavor="NA" /> <code codeSystem="local" code="GLU" displayName="GLUCOSE" /> <statusCode code="completed" /> < effectiveTime value="606243661111" /> <value unit="mg/dL" xsi:type="PQ " value="87" /> <referenceRange> <observationRange> <text>70-99</text> </observationRange> </ referenceRange> </observation> </component> <component> <observation moodCode="EVN" classCode="OBS"> <templateId root= "07.12.840.1.157526.10.20.22.4.2" /> <id nullFlavor="NA" /> < code codeSystem="local" code="CA" displayName="CALCIUM" /> <statusCode code="completed" /> <effectiveTime value="757541633471" /> < value unit="mg/dL" xsi:type="PQ" value="8.3" /> <interpretationCode codeSystem="local" code="*" /> <referenceRange> < observationRange> <text>8.5-10.1</text> </ observationRange> </referenceRange> </observation> </ component> <component> <observation moodCode="EVN" classCode="OBS"> <templateId root="216.840.1.996965.10..22.4.2" /> <id nullFlavor="NA" /> <code codeSystem="local" code="BUN" displayName= "BLOOD UREA NITROGEN" /> <statusCode code="completed" /> < effectiveTime value="027736945612" /> <value unit="mg/dL" xsi:type="PQ " value="8" /> <referenceRange> <observationRange> <text>7-20</text> </observationRange> </referenceRange > </observation> </component> <component> <observation moodCode="EVN" classCode="OBS"> <templateId root= "216.840.1.723625.10.20.22.4.2" /> <id nullFlavor="NA" /> < code codeSystem="local" code="CREAT" displayName="CREATININE" /> < statusCode code="completed" /> <effectiveTime value="645160456364" /> <value unit="mg/dL" xsi:type="PQ" value="0.6" /> < referenceRange> <observationRange> <text>0.6-1.0</text> </observationRange> </referenceRange> </observation > </component> <component> <observation moodCode="EVN" classCode="OBS"> <templateId root="216.840.1.374504...22.4.2" /> <id nullFlavor="NA" /> <code codeSystem="local" code="NA" displayName="SODIUM" /> <statusCode code="completed" /> < effectiveTime value="184667468953" /> <value unit="mmol/L" xsi:type="PQ " value="139" /> <referenceRange> <observationRange> <text>135-148</text> </observationRange> </ referenceRange> </observation> </component> <component> <observation moodCode="EVN" classCode="OBS"> <templateId root= "216.840.1.099099....4.2" /> <id nullFlavor="NA" /> < code codeSystem="local" code="CL" displayName="CHLORIDE" /> < statusCode code="completed" /> <effectiveTime value="002401133063" /> <value unit="mmol/L" xsi:type="PQ" value="108" /> < referenceRange> <observationRange> <text>98-110</text> </observationRange> </referenceRange> </observation> </component> <component> <observation moodCode="EVN" classCode ="OBS"> <templateId root="216.840.1.557782...22.4.2" /> < id nullFlavor="NA" /> <code codeSystem="local" code="AST" displayName= "AST/SGOT" /> <statusCode code="completed" /> <effectiveTime value="426978629872" /> <value unit="Units/L" xsi:type="PQ" value="89" /> <interpretationCode codeSystem="local" code="*" /> < referenceRange> <observationRange> <text>10-37</text> </observationRange> </referenceRange> </observation> </component> <component> <observation moodCode="EVN" classCode= "OBS"> <templateId root="216.840.1.370821.10..4.2" /> < id nullFlavor="NA" /> <code codeSystem="local" code="ALT" displayName= "ALT/SGPT" /> <statusCode code="completed" /> <effectiveTime value="286920576560" /> <value unit="Units/L" xsi:type="PQ" value="194 " /> <interpretationCode codeSystem="local" code="*" /> < referenceRange> <observationRange> <text>< 66</text> </observationRange> </referenceRange> </observation > </component> <component> <observation moodCode="EVN" classCode="OBS"> <templateId root="216.840.1.319075.03.15.22.4.2" /> <id nullFlavor="NA" /> <code codeSystem="local" code="CO2" displayName="CARBON DIOXIDE" /> <statusCode code="completed" /> <effectiveTime value="943569054125" /> <value unit="mmol/L" xsi:type ="PQ" value="25" /> <referenceRange> <observationRange> <text>21-32</text> </observationRange> </ referenceRange> </observation> </component> <component> <observation moodCode="EVN" classCode="OBS"> <templateId root= "216.840.1.429104.10..4.2" /> <id nullFlavor="NA" /> < code codeSystem="local" code="TP" displayName="TOTAL PROTEIN" /> < statusCode code="completed" /> <effectiveTime value="874094862517" /> <value unit="gm/dL" xsi:type="PQ" value="5.9" /> < interpretationCode codeSystem="local" code="*" /> <referenceRange> <observationRange> <text>6.4-8.2</text> </ observationRange> </referenceRange> </observation> </ component> <component> <observation moodCode="EVN" classCode="OBS"> <templateId root="16.840.1.721483.22.4.2" /> <id nullFlavor="NA" /> <code codeSystem="local" code="ALB" displayName= "ALBUMIN" /> <statusCode code="completed" /> <effectiveTime value="473653639860" /> <value unit="gm/dL" xsi:type="PQ" value="2.8" / > <interpretationCode codeSystem="local" code="*" /> < referenceRange> <observationRange> <text>3.4-5.0</text> </observationRange> </referenceRange> </observation > </component> <component> <observation moodCode="EVN" classCode="OBS"> <templateId root="16.840.1.596851.03.15.22.4.2" /> <id nullFlavor="NA" /> <code codeSystem="local" code="BILTOT" displayName="BILI TOTAL" /> <statusCode code="completed" /> < effectiveTime value="143482800926" /> <value unit="mg/dL" xsi:type="PQ " value="0.2" /> <referenceRange> <observationRange> <text>0.0-1.0</text> </observationRange> </ referenceRange> </observation> </component> <component> <observation moodCode="EVN" classCode="OBS"> <templateId root= "216.840.1.845644.03.15.22.4.2" /> <id nullFlavor="NA" /> < code codeSystem="local" code="ALKP" displayName="ALKALINE PHOSPHATASE TOTAL" /> <statusCode code="completed" /> <effectiveTime value= "136689456403" /> <value unit="IU/L" xsi:type="PQ" value="118" /> <interpretationCode codeSystem="local" code="*" /> <referenceRange > <observationRange> <text>45-117</text> </ observationRange> </referenceRange> </observation> </ component> </organizer> </entry> <entry> <organizer moodCode="EVN" classCode="BATTERY"> <templateId root="216.840.1.347717.03.15.22.4.1" /> <id nullFlavor="NA" /> <code codeSystem="local" code="BILC" displayName="BILI CONJUGATED" /> <statusCode code="completed" /> < component> <observation moodCode="EVN" classCode="OBS"> < templateId root="216.840.1.887616.03.15.22.4.2" /> <id nullFlavor="NA " /> <code codeSystem="local" code="BILC" displayName="BILI CONJUGATED " /> <statusCode code="completed" /> <effectiveTime value= "820591525807" /> <value unit="mg/dL" xsi:type="PQ" value="< 0.1" / > <referenceRange> <observationRange> <text>0.0 -0.3</text> </observationRange> </referenceRange> </ observation> </component> </organizer> </entry> <entry> <organizer moodCode="EVN" classCode="BATTERY"> <templateId root= "216.840.1.440429.03.15.22.4.1" /> <id nullFlavor="NA" /> <code codeSystem="local" code="EDRBW" displayName="ED RAINBOW COLLECT" /> < statusCode code="completed" /> <component> <observation moodCode= "EVN" classCode="OBS"> <templateId root="16.840.1.906220.03.15.22.4.2 " /> <id nullFlavor="NA" /> <code codeSystem="local" code="PST " displayName="PLASMA SEPARATOR TUBE" /> <statusCode code="completed" / > <effectiveTime value="" /> <value unit="mL" xsi: type="PQ" value="Done" /> <referenceRange> <observationRange > <text /> </observationRange> </referenceRange > </observation> </component> <component> <observation moodCode="EVN" classCode="OBS"> <templateId root= "07.12.840.1.252695.03.15.224.2" /> <id nullFlavor="NA" /> < code codeSystem="local" code="SST" displayName="SERUM SEPARATOR TUBE" /> <statusCode code="completed" /> <effectiveTime value="" /> <value unit="mL" xsi:type="PQ" value="Done" /> < referenceRange> <observationRange> <text /> < /observationRange> </referenceRange> </observation> </ component> <component> <observation moodCode="EVN" classCode="OBS"> <templateId root="07.12.840.1.317585.03.15.22.4.2" /> <id nullFlavor="NA" /> <code codeSystem="local" code="LON" displayName= "CITRATE BLUE" /> <statusCode code="completed" /> < effectiveTime value="" /> <value unit="mL" xsi:type="PQ" value="Done" /> <referenceRange> <observationRange> <text /> </observationRange> </referenceRange> </observation> </component> <component> <observation moodCode= "EVN" classCode="OBS"> <templateId root="16.840.1.278638.03.15.22.4.2 " /> <id nullFlavor="NA" /> <code codeSystem="local" code="LAV " displayName="Lavendar Tube" /> <statusCode code="completed" /> <effectiveTime value="591612617167" /> <value unit="mL" xsi:type= "PQ" value="Done" /> <referenceRange> <observationRange> <text /> </observationRange> </referenceRange> </observation> </component> </organizer> </entry> <entry> < organizer moodCode="EVN" classCode="BATTERY"> <templateId root= "07.12.840.1.763975.03.15.22.4.1" /> <id nullFlavor="NA" /> <code codeSystem="local" code="UMIC" displayName="Urine Microscopic" /> < statusCode code="completed" /> <component> <observation moodCode= "EVN" classCode="OBS"> <templateId root="07.12.840.1.366241.03.15.22.4.2 " /> <id nullFlavor="NA" /> <code codeSystem="local" code= "UBAC" displayName="Bacteria" /> <statusCode code="completed" /> <effectiveTime value="036817183204" /> <value unit="NA" xsi:type= "PQ" value="Occasional" /> <interpretationCode codeSystem="local" code= "*" /> <referenceRange> <observationRange> < text /> </observationRange> </referenceRange> </ observation> </component> <component> <observation moodCode= "EVN" classCode="OBS"> <templateId root="216.840.1.183176.1022.4.2 " /> <id nullFlavor="NA" /> <code codeSystem="local" code= "UCRY1" displayName="Crystals" /> <statusCode code="completed" /> <effectiveTime value="" /> <value unit="NA" xsi:type= "PQ" value="Ca Ox" /> <referenceRange> <observationRange> <text /> </observationRange> </referenceRange> </observation> </component> <component> <observation moodCode="EVN" classCode="OBS"> <templateId root= "16.840.1.866956.03.15.22.4.2" /> <id nullFlavor="NA" /> < code codeSystem="local" code="UEPI" displayName="Epithelial Cells" /> < statusCode code="completed" /> <effectiveTime value="" /> <value unit="/HPF" xsi:type="PQ" value="2" /> <referenceRange > <observationRange> <text /> </ observationRange> </referenceRange> </observation> </ component> <component> <observation moodCode="EVN" classCode="OBS"> <templateId root="07.12.840.1.494740.1022.4.2" /> <id nullFlavor="NA" /> <code codeSystem="local" code="URBC" displayName= "RBC, Urine" /> <statusCode code="completed" /> < effectiveTime value="" /> <value unit="/HPF" xsi:type="PQ" value="20" /> <interpretationCode codeSystem="local" code="*" /> <referenceRange> <observationRange> <text>0-2</text > </observationRange> </referenceRange> </observation > </component> <component> <observation moodCode="EVN" classCode="OBS"> <templateId root="16.840.1.127390.10...4.2" /> <id nullFlavor="NA" /> <code codeSystem="local" code="UMUC" displayName="Urine Mucus" /> <statusCode code="completed" /> < effectiveTime value="408579830937" /> <value unit="NA" xsi:type="PQ" value="Present" /> <referenceRange> <observationRange> <text /> </observationRange> </referenceRange> </observation> </component> <component> <observation moodCode="EVN" classCode="OBS"> <templateId root= "07.12.840.1.909400.10..4.2" /> <id nullFlavor="NA" /> < code codeSystem="local" code="UWBC" displayName="WBC, Urine" /> < statusCode code="completed" /> <effectiveTime value="479627062887" /> <value unit="/HPF" xsi:type="PQ" value="0" /> <referenceRange > <observationRange> <text>0-4</text> </ observationRange> </referenceRange> </observation> </ component> </organizer> </entry> <entry> <organizer moodCode="EVN" classCode="BATTERY"> <templateId root="07.12.840.1.185508.10...4.1" /> <id nullFlavor="NA" /> <code codeSystem="local" code="UA" displayName= "Urinalysis with reflex microscopic" /> <statusCode code="completed" /> <component> <observation moodCode="EVN" classCode="OBS"> < templateId root="16.840.1.011054.10.4.2" /> <id nullFlavor="NA " /> <code codeSystem="local" code="UAPP" displayName="Appearance" /> <statusCode code="completed" /> <effectiveTime value= "" /> <value unit="NA" xsi:type="PQ" value="Cloudy" /> <interpretationCode codeSystem="local" code="*" /> < referenceRange> <observationRange> <text /> < /observationRange> </referenceRange> </observation> </ component> <component> <observation moodCode="EVN" classCode="OBS"> <templateId root="07.12.840.1.238380.03.15.22.4.2" /> <id nullFlavor="NA" /> <code codeSystem="local" code="UBIL" displayName= "Bilirubin" /> <statusCode code="completed" /> <effectiveTime value="" /> <value unit="NA" xsi:type="PQ" value="Negative " /> <referenceRange> <observationRange> <text> Negative</text> </observationRange> </referenceRange> </observation> </component> <component> <observation moodCode ="EVN" classCode="OBS"> <templateId root= "16.840.1.942841.10.22.4.2" /> <id nullFlavor="NA" /> < code codeSystem="local" code="UBLD" displayName="Blood" /> <statusCode code="completed" /> <effectiveTime value="" /> < value unit="NA" xsi:type="PQ" value="Pos 3+" /> <interpretationCode codeSystem="local" code="*" /> <referenceRange> < observationRange> <text>Negative</text> </ observationRange> </referenceRange> </observation> </ component> <component> <observation moodCode="EVN" classCode="OBS"> <templateId root="16.840.1.320173.10.22.4.2" /> <id nullFlavor="NA" /> <code codeSystem="local" code="UCOLR" displayName= "Color" /> <statusCode code="completed" /> <effectiveTime value="" /> <value unit="NA" xsi:type="PQ" value="Yellow" / > <referenceRange> <observationRange> <text /> </observationRange> </referenceRange> </observation > </component> <component> <observation moodCode="EVN" classCode="OBS"> <templateId root="07.12.840.1.561582.10.4.2" /> <id nullFlavor="NA" /> <code codeSystem="local" code="UGLU" displayName="Glucose, Urine" /> <statusCode code="completed" /> <effectiveTime value="" /> <value unit="" xsi:type="PQ" value="Negative" /> <referenceRange> <observationRange> <text>Negative</text> </observationRange> </ referenceRange> </observation> </component> <component> <observation moodCode="EVN" classCode="OBS"> <templateId root= "07.12.840.1.597698.1022.4.2" /> <id nullFlavor="NA" /> < code codeSystem="local" code="UKET" displayName="Ketones" /> < statusCode code="completed" /> <effectiveTime value="" /> <value unit="" xsi:type="PQ" value="Trace" /> < interpretationCode codeSystem="local" code="*" /> <referenceRange> <observationRange> <text>Negative</text> </ observationRange> </referenceRange> </observation> </ component> <component> <observation moodCode="EVN" classCode="OBS"> <templateId root="07.12.840.1.926330.10.4.2" /> <id nullFlavor="NA" /> <code codeSystem="local" code="ULEU" displayName= "Leukocyte Esterase" /> <statusCode code="completed" /> < effectiveTime value="[id number]" /> <value unit="NA" xsi:type="PQ" value="Negative" /> <referenceRange> <observationRange> <text>Negative</text> </observationRange> </ referenceRange> </observation> </component> <component> <observation moodCode="EVN" classCode="OBS"> <templateId root= "840.1.377034.03.15.22.4.2" /> <id nullFlavor="NA" /> < code codeSystem="local" code="UNIT" displayName="Nitrites" /> < statusCode code="completed" /> <effectiveTime value="[id number]" /> <value unit="NA" xsi:type="PQ" value="Negative" /> < referenceRange> <observationRange> <text>Negative</text > </observationRange> </referenceRange> </observation > </component> <component> <observation moodCode="EVN" classCode="OBS"> <templateId root="07.12.840.1.784318.22.4.2" /> <id nullFlavor="NA" /> <code codeSystem="local" code="UPH" displayName="pH" /> <statusCode code="completed" /> < effectiveTime value="830231183412" /> <value unit="NA" xsi:type="PQ" value="6.0" /> <referenceRange> <observationRange> <text>5.0-8.0</text> </observationRange> </ referenceRange> </observation> </component> <component> <observation moodCode="EVN" classCode="OBS"> <templateId root= "16.840.1.946562.10.20.22.4.2" /> <id nullFlavor="NA" /> < code codeSystem="local" code="UPRO" displayName="Protein" /> < statusCode code="completed" /> <effectiveTime value="474287488455" /> <value unit="NA" xsi:type="PQ" value="Pos 1+" /> < interpretationCode codeSystem="local" code="*" /> <referenceRange> <observationRange> <text>Negative</text> </ observationRange> </referenceRange> </observation> </ component> <component> <observation moodCode="EVN" classCode="OBS"> <templateId root="16.840.1.255692.10.20.22.4.2" /> <id nullFlavor="NA" /> <code codeSystem="local" code="USPG" displayName= "Specific [place]" /> <statusCode code="completed" /> < effectiveTime value="886538193502" /> <value unit="NA" xsi:type="PQ" value="1.030" /> <referenceRange> <observationRange> <text>1.003-1.030</text> </observationRange> </ referenceRange> </observation> </component> <component> <observation moodCode="EVN" classCode="OBS"> <templateId root= "2.16.840.1.806663.03.15.22.4.2" /> <id nullFlavor="NA" /> < code codeSystem="local" code="UTYP" displayName="UA Collection type" /> <statusCode code="completed" /> <effectiveTime value="112094973778" / > <value unit="NA" xsi:type="PQ" value="Clean Catch" /> < referenceRange> <observationRange> <text /> < /observationRange> </referenceRange> </observation> </ component> <component> <observation moodCode="EVN" classCode="OBS"> <templateId root="07.12.840.1.948440.03.15.22.4.2" /> <id nullFlavor="NA" /> <code codeSystem="local" code="UURO" displayName= "Urobilinogen" /> <statusCode code="completed" /> < effectiveTime value="268927050442" /> <value unit="mg/dL" xsi:type="PQ " value="2.0" /> <interpretationCode codeSystem="local" code="*" /> <referenceRange> <observationRange> <text><1.0 </text> </observationRange> </referenceRange> </ observation> </component> </organizer> </entry> <entry> <organizer moodCode="EVN" classCode="BATTERY"> <templateId root= "07.12.840.1.378134.03.15.22.4.1" /> <id nullFlavor="NA" /> <code codeSystem="local" code="CBCWD" displayName="CBC With Platelet and Differential " /> <statusCode code="completed" /> <component> <observation moodCode="EVN" classCode="OBS"> <templateId root= "07.12.840.1.174165.03.15.22.4.2" /> <id nullFlavor="NA" /> < code codeSystem="local" code="ABASR" displayName="Absolute Basophils" /> <statusCode code="completed" /> <effectiveTime value="" /> <value unit="10*3" xsi:type="PQ" value="0.07" /> < referenceRange> <observationRange> <text>0.00-0.20</text > </observationRange> </referenceRange> </observation > </component> <component> <observation moodCode="EVN" classCode="OBS"> <templateId root="216.840.1.010175.03.15.22.4.2" /> <id nullFlavor="NA" /> <code codeSystem="local" code="AEOSR" displayName="Absolute Eosinophils" /> <statusCode code="completed" /> <effectiveTime value="" /> <value unit="10*3" xsi: type="PQ" value="0.14" /> <referenceRange> <observationRange > <text>0.00-0.50</text> </observationRange> </ referenceRange> </observation> </component> <component> <observation moodCode="EVN" classCode="OBS"> <templateId root= "216.840.1.601986.03.15.22.4.2" /> <id nullFlavor="NA" /> < code codeSystem="local" code="ALYMR" displayName="Absolute Lymphocytes" /> <statusCode code="completed" /> <effectiveTime value=" " /> <value unit="10*3" xsi:type="PQ" value="3.59" /> < interpretationCode codeSystem="local" code="*" /> <referenceRange> <observationRange> <text>0.80-3.30</text> </ observationRange> </referenceRange> </observation> </ component> <component> <observation moodCode="EVN" classCode="OBS"> <templateId root="216.840.1.381316.1022.4.2" /> <id nullFlavor="NA" /> <code codeSystem="local" code="AMONR" displayName= "Absolute Monocytes" /> <statusCode code="completed" /> < effectiveTime value="" /> <value unit="10*3" xsi:type="PQ" value="0.65" /> <referenceRange> <observationRange> <text>0.30-1.00</text> </observationRange> </ referenceRange> </observation> </component> <component> <observation moodCode="EVN" classCode="OBS"> <templateId root= "07.12.840.1.786559.10.4.2" /> <id nullFlavor="NA" /> < code codeSystem="local" code="ASEGR" displayName="Absolute Neutrophils" /> <statusCode code="completed" /> <effectiveTime value=" " /> <value unit="10*3" xsi:type="PQ" value="4.01" /> < referenceRange> <observationRange> <text>1.90-7.00</text > </observationRange> </referenceRange> </observation > </component> <component> <observation moodCode="EVN" classCode="OBS"> <templateId root="16.840.1.473121.22.4.2" /> <id nullFlavor="NA" /> <code codeSystem="local" code="BASOR" displayName="Basophils" /> <statusCode code="completed" /> < effectiveTime value="" /> <value unit="%" xsi:type="PQ " value="1" /> <referenceRange> <observationRange> <text>0-2</text> </observationRange> </referenceRange> </observation> </component> <component> <observation moodCode="EVN" classCode="OBS"> <templateId root= "16.840.1.350869.10.20.22.4.2" /> <id nullFlavor="NA" /> < code codeSystem="local" code="EOSR" displayName="Eosinophils" /> < statusCode code="completed" /> <effectiveTime value="723395491815" /> <value unit="%" xsi:type="PQ" value="2" /> <referenceRange > <observationRange> <text>0-4</text> </ observationRange> </referenceRange> </observation> </ component> <component> <observation moodCode="EVN" classCode="OBS"> <templateId root="07.12.840.1.961719.10...4.2" /> <id nullFlavor="NA" /> <code codeSystem="local" code="HCT" displayName="HCT " /> <statusCode code="completed" /> <effectiveTime value= "811579837172" /> <value unit="%" xsi:type="PQ" value="35.7" /> <interpretationCode codeSystem="local" code="*" /> < referenceRange> <observationRange> <text>37.0-47.0</text > </observationRange> </referenceRange> </observation > </component> <component> <observation moodCode="EVN" classCode="OBS"> <templateId root="07.12.840.1.924405.10.20.22.4.2" /> <id nullFlavor="NA" /> <code codeSystem="local" code="HGB" displayName="HGB" /> <statusCode code="completed" /> < effectiveTime value="" /> <value unit="g/dL" xsi:type="PQ" value="11.0" /> <interpretationCode codeSystem="local" code="*" /> <referenceRange> <observationRange> <text>12.0- 16.0</text> </observationRange> </referenceRange> </ observation> </component> <component> <observation moodCode= "EVN" classCode="OBS"> <templateId root="2.16.840.1.445510.10...4.2 " /> <id nullFlavor="NA" /> <code codeSystem="local" code= "IMGA" displayName="Immature Granulocytes" /> <statusCode code= "completed" /> <effectiveTime value="" /> <value unit="%" xsi:type="PQ" value="0.1" /> <referenceRange> < observationRange> <text>0.0-1.0</text> </ observationRange> </referenceRange> </observation> </ component> <component> <observation moodCode="EVN" classCode="OBS"> <templateId root="2.16.840.1.974212....4.2" /> <id nullFlavor="NA" /> <code codeSystem="local" code="LYMPR" displayName= "Lymphocytes" /> <statusCode code="completed" /> < effectiveTime value="" /> <value unit="%" xsi:type="PQ " value="42" /> <referenceRange> <observationRange> <text>20-46</text> </observationRange> </ referenceRange> </observation> </component> <component> <observation moodCode="EVN" classCode="OBS"> <templateId root= "07.12.840.1.851361.10...4.2" /> <id nullFlavor="NA" /> < code codeSystem="local" code="MCH" displayName="MCH" /> <statusCode code="completed" /> <effectiveTime value="" /> < value unit="pg" xsi:type="PQ" value="25.3" /> <interpretationCode codeSystem="local" code="*" /> <referenceRange> < observationRange> <text>27.0-32.0</text> </ observationRange> </referenceRange> </observation> </ component> <component> <observation moodCode="EVN" classCode="OBS"> <templateId root="07.12.840.1.066128.03.15.224.2" /> <id nullFlavor="NA" /> <code codeSystem="local" code="MCHC" displayName= "MCHC" /> <statusCode code="completed" /> <effectiveTime value ="" /> <value unit="g/dL" xsi:type="PQ" value="30.8" /> <interpretationCode codeSystem="local" code="*" /> < referenceRange> <observationRange> <text>32.0-36.0</text > </observationRange> </referenceRange> </observation > </component> <component> <observation moodCode="EVN" classCode="OBS"> <templateId root="07.12.840.1.446949..22.4.2" /> <id nullFlavor="NA" /> <code codeSystem="local" code="MCV" displayName="MCV" /> <statusCode code="completed" /> < effectiveTime value="545719447449" /> <value unit="fL" xsi:type="PQ" value="82.1" /> <referenceRange> <observationRange> <text>82.0-99.0</text> </observationRange> </ referenceRange> </observation> </component> <component> <observation moodCode="EVN" classCode="OBS"> <templateId root= "216.840.1.838360.10..22.4.2" /> <id nullFlavor="NA" /> < code codeSystem="local" code="MONOR" displayName="Monocytes" /> < statusCode code="completed" /> <effectiveTime value="" /> <value unit="%" xsi:type="PQ" value="8" /> <referenceRange > <observationRange> <text>4-11</text> </ observationRange> </referenceRange> </observation> </ component> <component> <observation moodCode="EVN" classCode="OBS"> <templateId root="07.12.840.1.612867.10.22.4.2" /> <id nullFlavor="NA" /> <code codeSystem="local" code="MPV" displayName="MPV " /> <statusCode code="completed" /> <effectiveTime value= "344687505186" /> <value unit="fL" xsi:type="PQ" value="9.5" /> <referenceRange> <observationRange> <text>9.4-12.4</ text> </observationRange> </referenceRange> </ observation> </component> <component> <observation moodCode= "EVN" classCode="OBS"> <templateId root="07.12.840.1.315275.10.20.22.4.2 " /> <id nullFlavor="NA" /> <code codeSystem="local" code= "SEGR" displayName="Neutrophils" /> <statusCode code="completed" /> <effectiveTime value="139985622310" /> <value unit="%" xsi: type="PQ" value="47" /> <interpretationCode codeSystem="local" code="* " /> <referenceRange> <observationRange> <text> 51-75</text> </observationRange> </referenceRange> </ observation> </component> <component> <observation moodCode= "EVN" classCode="OBS"> <templateId root="840.1.949216.10.20.22.4.2 " /> <id nullFlavor="NA" /> <code codeSystem="local" code="PLT " displayName="Platelet Count" /> <statusCode code="completed" /> <effectiveTime value="867296933621" /> <value unit="K/uL" xsi:type ="PQ" value="282" /> <referenceRange> <observationRange> <text>150-400</text> </observationRange> </ referenceRange> </observation> </component> <component> <observation moodCode="EVN" classCode="OBS"> <templateId root= "840.1.479044.10.20.22.4.2" /> <id nullFlavor="NA" /> < code codeSystem="local" code="RBC" displayName="RBC" /> <statusCode code="completed" /> <effectiveTime value="149907959001" /> < value unit="10*6/uL" xsi:type="PQ" value="4.35" /> <referenceRange> <observationRange> <text>4.00-5.20</text> </ observationRange> </referenceRange> </observation> </ component> <component> <observation moodCode="EVN" classCode="OBS"> <templateId root="07.12.830.1.757954.10..22.4.2" /> <id nullFlavor="NA" /> <code codeSystem="local" code="RDW" displayName="RDW " /> <statusCode code="completed" /> <effectiveTime value= "698632901033" /> <value unit="%" xsi:type="PQ" value="16.6" /> <interpretationCode codeSystem="local" code="*" /> < referenceRange> <observationRange> <text>11.5-14.5</text > </observationRange> </referenceRange> </observation > </component> <component> <observation moodCode="EVN" classCode="OBS"> <templateId root="07.12.840.1.652769.03.15.22.4.2" /> <id nullFlavor="NA" /> <code codeSystem="local" code="WBCIR" displayName="WBC" /> <statusCode code="completed" /> < effectiveTime value="784705113762" /> <value unit="K/uL" xsi:type="PQ" value="8.5" /> <referenceRange> <observationRange> <text>4.8-10.8</text> </observationRange> </ referenceRange> </observation> </component> </organizer> </entry > <entry> <organizer moodCode="EVN" classCode="BATTERY"> <templateId root="16.840.1.678596.10..22.4.1" /> <id nullFlavor="NA" /> <code codeSystem="local" code="CMP" displayName="Comprehensive Metabolic Panel (CMP)" /> <statusCode code="completed" /> <component> <observation moodCode="EVN" classCode="OBS"> <templateId root= "07.12.840.1.150923.22.4.2" /> <id nullFlavor="NA" /> < code codeSystem="local" code="ALB" displayName="Albumin" /> < statusCode code="completed" /> <effectiveTime value="" /> <value unit="g/dL" xsi:type="PQ" value="3.9" /> < referenceRange> <observationRange> <text>3.5-4.8</text> </observationRange> </referenceRange> </observation > </component> <component> <observation moodCode="EVN" classCode="OBS"> <templateId root="2.16.840.1.581966.03.15.22.4.2" /> <id nullFlavor="NA" /> <code codeSystem="local" code="ALP" displayName="Alkaline Phosphatase" /> <statusCode code="completed" /> <effectiveTime value="" /> <value unit="U/L" xsi: type="PQ" value="71" /> <referenceRange> <observationRange> <text>26-104</text> </observationRange> </ referenceRange> </observation> </component> <component> <observation moodCode="EVN" classCode="OBS"> <templateId root= "216.840.1.106384.03.15.22.4.2" /> <id nullFlavor="NA" /> < code codeSystem="local" code="ALT" displayName="ALT (SGPT)" /> < statusCode code="completed" /> <effectiveTime value="" /> <value unit="U/L" xsi:type="PQ" value="12" /> < interpretationCode codeSystem="local" code="*" /> <referenceRange> <observationRange> <text>14-54</text> </ observationRange> </referenceRange> </observation> </ component> <component> <observation moodCode="EVN" classCode="OBS"> <templateId root="216.840.1.025553.10...4.2" /> <id nullFlavor="NA" /> <code codeSystem="local" code="AGAP" displayName= "Anion Gap" /> <statusCode code="completed" /> <effectiveTime value="" /> <value unit="NA" xsi:type="PQ" value="6" /> <referenceRange> <observationRange> <text>3-20</ text> </observationRange> </referenceRange> </ observation> </component> <component> <observation moodCode= "EVN" classCode="OBS"> <templateId root="2.840.1.896700...4.2 " /> <id nullFlavor="NA" /> <code codeSystem="local" code="AST " displayName="AST (SGOT)" /> <statusCode code="completed" /> <effectiveTime value="" /> <value unit="U/L" xsi:type="PQ" value="17" /> <referenceRange> <observationRange> <text>15-41</text> </observationRange> </referenceRange > </observation> </component> <component> <observation moodCode="EVN" classCode="OBS"> <templateId root= "07.12.840.1.362526.10..22.4.2" /> <id nullFlavor="NA" /> < code codeSystem="local" code="BILIT" displayName="Bilirubin Total" /> < statusCode code="completed" /> <effectiveTime value="" /> <value unit="mg/dL" xsi:type="PQ" value="0.7" /> < referenceRange> <observationRange> <text>0.2-1.2</text> </observationRange> </referenceRange> </observation > </component> <component> <observation moodCode="EVN" classCode="OBS"> <templateId root="16.840.1.235664.10...4.2" /> <id nullFlavor="NA" /> <code codeSystem="local" code="BUN" displayName="BUN" /> <statusCode code="completed" /> < effectiveTime value="" /> <value unit="mg/dL" xsi:type="PQ " value="6" /> <referenceRange> <observationRange> <text>4-20</text> </observationRange> </referenceRange > </observation> </component> <component> <observation moodCode="EVN" classCode="OBS"> <templateId root= "07.12.840.1.503162.03.15.22.4.2" /> <id nullFlavor="NA" /> < code codeSystem="local" code="CA" displayName="Calcium" /> <statusCode code="completed" /> <effectiveTime value="886997367690" /> < value unit="mg/dL" xsi:type="PQ" value="9.1" /> <referenceRange> <observationRange> <text>8.6-10.0</text> </ observationRange> </referenceRange> </observation> </ component> <component> <observation moodCode="EVN" classCode="OBS"> <templateId root="07.12.840.1.419386.03.15.22.4.2" /> <id nullFlavor="NA" /> <code codeSystem="local" code="CL" displayName= "Chloride" /> <statusCode code="completed" /> <effectiveTime value="" /> <value unit="mEq/L" xsi:type="PQ" value="104" / > <referenceRange> <observationRange> <text>99- 109</text> </observationRange> </referenceRange> </ observation> </component> <component> <observation moodCode= "EVN" classCode="OBS"> <templateId root="216.840.1.137846.10...4.2 " /> <id nullFlavor="NA" /> <code codeSystem="local" code="CO2 " displayName="CO2" /> <statusCode code="completed" /> < effectiveTime value="" /> <value unit="mEq/L" xsi:type="PQ " value="27" /> <referenceRange> <observationRange> <text>22-32</text> </observationRange> </ referenceRange> </observation> </component> <component> <observation moodCode="EVN" classCode="OBS"> <templateId root= "16.840.1.653704.10..4.2" /> <id nullFlavor="NA" /> < code codeSystem="local" code="CREAT" displayName="Creatinine" /> < statusCode code="completed" /> <effectiveTime value="" /> <value unit="mg/dL" xsi:type="PQ" value="0.73" /> < referenceRange> <observationRange> <text>0.44-1.03</text > </observationRange> </referenceRange> </observation > </component> <component> <observation moodCode="EVN" classCode="OBS"> <templateId root="216.840.1.653084.10..22.4.2" /> <id nullFlavor="NA" /> <code codeSystem="local" code="GLOB" displayName="Globulin" /> <statusCode code="completed" /> < effectiveTime value="" /> <value unit="g/dL" xsi:type="PQ" value="2.9" /> <referenceRange> <observationRange> <text>1.9-4.3</text> </observationRange> </ referenceRange> </observation> </component> <component> <observation moodCode="EVN" classCode="OBS"> <templateId root= "16.840.1.136136.10.20.22.4.2" /> <id nullFlavor="NA" /> < code codeSystem="local" code="GLU" displayName="Glucose" /> < statusCode code="completed" /> <effectiveTime value="" /> <value unit="mg/dL" xsi:type="PQ" value="93" /> < referenceRange> <observationRange> <text>70-100</text> </observationRange> </referenceRange> </observation> </component> <component> <observation moodCode="EVN" classCode ="OBS"> <templateId root="16.840.1.041642.10.20.22.4.2" /> < id nullFlavor="NA" /> <code codeSystem="local" code="K" displayName= "Potassium" /> <statusCode code="completed" /> <effectiveTime value="719915985346" /> <value unit="mEq/L" xsi:type="PQ" value="3.4" / > <interpretationCode codeSystem="local" code="*" /> < referenceRange> <observationRange> <text>3.6-5.1</text> </observationRange> </referenceRange> </observation > </component> <component> <observation moodCode="EVN" classCode="OBS"> <templateId root="840.1.004161.10.22.4.2" /> <id nullFlavor="NA" /> <code codeSystem="local" code="TP" displayName="Protein" /> <statusCode code="completed" /> < effectiveTime value="088172497712" /> <value unit="g/dL" xsi:type="PQ" value="6.8" /> <referenceRange> <observationRange> <text>6.1-7.9</text> </observationRange> </ referenceRange> </observation> </component> <component> <observation moodCode="EVN" classCode="OBS"> <templateId root= "840.1.600655.03.15.22.4.2" /> <id nullFlavor="NA" /> < code codeSystem="local" code="NA" displayName="Sodium" /> <statusCode code="completed" /> <effectiveTime value="038272572452" /> < value unit="mEq/L" xsi:type="PQ" value="137" /> <referenceRange> <observationRange> <text>136-144</text> </ observationRange> </referenceRange> </observation> </ component> </organizer> </entry> <entry> <organizer moodCode="EVN" classCode="BATTERY"> <templateId root="840.1.172713.22.4.1" /> <id nullFlavor="NA" /> <code codeSystem="local" code="GFR" displayName ="eGFR" /> <statusCode code="completed" /> <component> < observation moodCode="EVN" classCode="OBS"> <templateId root= "840.1.760822.1022.4.2" /> <id nullFlavor="NA" /> < code codeSystem="local" code="GFR" displayName="eGFR" /> <statusCode code="completed" /> <effectiveTime value="912942524921" /> < value unit="NA" xsi:type="PQ" value=">60" /> <referenceRange> <observationRange> <text>>60</text> </ observationRange> </referenceRange> </observation> </ component> </organizer> </entry> <entry> <organizer moodCode="EVN" classCode="BATTERY"> <templateId root="216.840.1.505620.10..22.4.1" /> <id nullFlavor="NA" /> <code codeSystem="local" code="PREGN" displayName=" Screen, Urine NPT" /> <statusCode code="completed" / > <component> <observation moodCode="EVN" classCode="OBS"> <templateId root="216.840.1.630608.10..22.4.2" /> <id nullFlavor="NA " /> <code codeSystem="local" code="PREGN" displayName=" Screen, Urine NPT" /> <statusCode code="completed" /> < effectiveTime value="[id number]" /> <value unit="NA" xsi:type="PQ" value="Negative" /> <referenceRange> <observationRange> <text /> </observationRange> </referenceRange> </observation> </component> </organizer> </entry> <entry> < organizer moodCode="EVN" classCode="BATTERY"> <templateId root= "216.840.1.024397.10..22.4.1" /> <id nullFlavor="NA" /> <code codeSystem="local" code="UA" displayName="URINALYSIS, ROUTINE" /> < statusCode code="completed" /> <component> <observation moodCode= "EVN" classCode="OBS"> <templateId root="216.840.1.022867.10.4.2 " /> <id nullFlavor="NA" /> <code codeSystem="local" code= "LEUESU" displayName="UA LEUKOCYTE ESTERASE DIPSTICK" /> <statusCode code="completed" /> <effectiveTime value="" /> < value unit="" xsi:type="PQ" value="NEGATIVE" /> <referenceRange> <observationRange> <text>NEGATIVE</text> </ observationRange> </referenceRange> </observation> </ component> <component> <observation moodCode="EVN" classCode="OBS"> <templateId root="216.840.1.327268.03.15.22.4.2" /> <id nullFlavor="NA" /> <code codeSystem="local" code="NITRIU" displayName= "UA NITRITE DIPSTICK" /> <statusCode code="completed" /> < effectiveTime value="" /> <value unit="" xsi:type="PQ" value="NEGATIVE" /> <referenceRange> <observationRange> <text>NEGATIVE</text> </observationRange> </ referenceRange> </observation> </component> <component> <observation moodCode="EVN" classCode="OBS"> <templateId root= "16.840.1.801471.03.15.22.4.2" /> <id nullFlavor="NA" /> < code codeSystem="local" code="PROTEIU" displayName="UA PROTEIN DIPSTICK" /> <statusCode code="completed" /> <effectiveTime value= "" /> <value unit="" xsi:type="PQ" value="NEGATIVE" /> <referenceRange> <observationRange> <text>NEGATIVE </text> </observationRange> </referenceRange> </ observation> </component> <component> <observation moodCode= "EVN" classCode="OBS"> <templateId root="07.12.840.1.153921.10.4.2 " /> <id nullFlavor="NA" /> <code codeSystem="local" code= "DGLUU" displayName="UA GLUCOSE DIPSTICK" /> <statusCode code= "completed" /> <effectiveTime value="[id number]" /> <value unit="" xsi:type="PQ" value="NEGATIVE" /> <referenceRange> < observationRange> <text>NEGATIVE</text> </ observationRange> </referenceRange> </observation> </ component> <component> <observation moodCode="EVN" classCode="OBS"> <templateId root="840.1.825364.03.15.22.4.2" /> <id nullFlavor="NA" /> <code codeSystem="local" code="KETONU" displayName= "UA KETONE DIPSTICK" /> <statusCode code="completed" /> < effectiveTime value="686946550797" /> <value unit="" xsi:type="PQ" value="1+" /> <interpretationCode codeSystem="local" code="*" /> <referenceRange> <observationRange> <text>NEGATIVE</ text> </observationRange> </referenceRange> </ observation> </component> <component> <observation moodCode= "EVN" classCode="OBS"> <templateId root="07.12.840.1.287013.03.15.22.4.2 " /> <id nullFlavor="NA" /> <code codeSystem="local" code= "UROBILU" displayName="UA UROBILINOGEN DIPSTICK" /> <statusCode code= "completed" /> <effectiveTime value="444516460537" /> <value unit="" xsi:type="PQ" value="2+" /> <interpretationCode codeSystem= "local" code="*" /> <referenceRange> <observationRange> <text>NORMAL</text> </observationRange> </ referenceRange> </observation> </component> <component> <observation moodCode="EVN" classCode="OBS"> <templateId root= "216.840.1.429377.10..22.4.2" /> <id nullFlavor="NA" /> < code codeSystem="local" code="BILU" displayName="UA BILIRUBIN DIPSTICK" /> <statusCode code="completed" /> <effectiveTime value="556999220937 " /> <value unit="" xsi:type="PQ" value="1+" /> < interpretationCode codeSystem="local" code="*" /> <referenceRange> <observationRange> <text>NEGATIVE</text> </ observationRange> </referenceRange> </observation> </ component> <component> <observation moodCode="EVN" classCode="OBS"> <templateId root="16.840.1.233424.10..22.4.2" /> <id nullFlavor="NA" /> <code codeSystem="local" code="LON" displayName="UA BLOOD DIPSTICK" /> <statusCode code="completed" /> < effectiveTime value="390816429056" /> <value unit="" xsi:type="PQ" value="TRACE" /> <interpretationCode codeSystem="local" code="*" /> <referenceRange> <observationRange> <text> NEGATIVE</text> </observationRange> </referenceRange> </observation> </component> <component> <observation moodCode ="EVN" classCode="OBS"> <templateId root= "07.12.840.1.268148.1022.4.2" /> <id nullFlavor="NA" /> < code codeSystem="local" code="SPGRU" displayName="UA SPECIFIC GRAVITY" /> <statusCode code="completed" /> <effectiveTime value="893484277416 " /> <value unit="" xsi:type="PQ" value="1.020" /> < referenceRange> <observationRange> <text>1.015-1.025</ text> </observationRange> </referenceRange> </ observation> </component> <component> <observation moodCode= "EVN" classCode="OBS"> <templateId root="840.1.573821.03.15.22.4.2 " /> <id nullFlavor="NA" /> <code codeSystem="local" code="WILLOW " displayName="UR PH" /> <statusCode code="completed" /> < effectiveTime value="971707030190" /> <value unit="" xsi:type="PQ" value="6.5" /> <referenceRange> <observationRange> <text>5.0-7.0</text> </observationRange> </ referenceRange> </observation> </component> </organizer> </entry > <entry> <organizer moodCode="EVN" classCode="BATTERY"> <templateId root="07.12.840.1.071167.10.22.4.1" /> <id nullFlavor="NA" /> <code codeSystem="local" code="UAMICRO" displayName="UA MICROSCOPIC" /> < statusCode code="completed" /> <component> <observation moodCode= "EVN" classCode="OBS"> <templateId root="840.1.896740.10.20.22.4.2 " /> <id nullFlavor="NA" /> <code codeSystem="local" code= "BACU" displayName="UA BACTERIA" /> <statusCode code="completed" /> <effectiveTime value="" /> <value unit="" xsi:type= "PQ" value="2+" /> <interpretationCode codeSystem="local" code="*" /> <referenceRange> <observationRange> <text> NEGATIVE</text> </observationRange> </referenceRange> </observation> </component> <component> <observation moodCode ="EVN" classCode="OBS"> <templateId root= "216.840.1.243879.03.15.224.2" /> <id nullFlavor="NA" /> < code codeSystem="local" code="EPIU" displayName="UA EPITHELIAL CELLS" /> <statusCode code="completed" /> <effectiveTime value="" /> <value unit="epi/hpf" xsi:type="PQ" value="2+" /> < interpretationCode codeSystem="local" code="*" /> <referenceRange> <observationRange> <text>0 - 1+</text> </ observationRange> </referenceRange> </observation> </ component> <component> <observation moodCode="EVN" classCode="OBS"> <templateId root="16.840.1.451690.03.15.224.2" /> <id nullFlavor="NA" /> <code codeSystem="local" code="RBCU" displayName=" UA RBC" /> <statusCode code="completed" /> <effectiveTime value="" /> <value unit="rbc/hpf" xsi:type="PQ" value="3-5 " /> <interpretationCode codeSystem="local" code="*" /> < referenceRange> <observationRange> <text>0 - 3</text> </observationRange> </referenceRange> </observation> </component> <component> <observation moodCode="EVN" classCode= "OBS"> <templateId root="216.840.1.173393.10..22.4.2" /> < id nullFlavor="NA" /> <code codeSystem="local" code="UAVOL" displayName ="UA VOLUME FOR EXAM" /> <statusCode code="completed" /> < effectiveTime value="921846209115" /> <value unit="mL" xsi:type="PQ" value="1.0" /> <referenceRange> <observationRange> <text>(12mL STD)</text> </observationRange> </ referenceRange> </observation> </component> <component> <observation moodCode="EVN" classCode="OBS"> <templateId root= "16.840.1.355901.10..4.2" /> <id nullFlavor="NA" /> < code codeSystem="local" code="WBCU" displayName="UA WBC" /> < statusCode code="completed" /> <effectiveTime value="823268821185" /> <value unit="wbc/hpf" xsi:type="PQ" value="0-1" /> < referenceRange> <observationRange> <text>0 - 5</text> </observationRange> </referenceRange> </observation> </component> </organizer> </entry> <entry> <organizer moodCode="EVN " classCode="BATTERY"> <templateId root="2.16.840.1.705656.10...4.1" / > <id nullFlavor="NA" /> <code codeSystem="local" code="PREGU" displayName="UR TEST" /> <statusCode code="completed" /> < component> <observation moodCode="EVN" classCode="OBS"> < templateId root="16.840.1.445188.10..4.2" /> <id nullFlavor="NA " /> <code codeSystem="local" code="PREGU" displayName="UR TEST" /> <statusCode code="completed" /> <effectiveTime value= "037038103784" /> <value unit="" xsi:type="PQ" value="NEGATIVE" /> <referenceRange> <observationRange> <text>NEGATIVE </text> </observationRange> </referenceRange> </ observation> </component> </organizer> </entry> <entry> <organizer moodCode="EVN" classCode="BATTERY"> <templateId root= "216.840.1.877131.10..4.1" /> <id nullFlavor="NA" /> <code codeSystem="local" code="CBCD" displayName="CBC W/DIFF" /> <statusCode code ="completed" /> <component> <observation moodCode="EVN" classCode= "OBS"> <templateId root="216.840.1.088853.10..22.4.2" /> < id nullFlavor="NA" /> <code codeSystem="local" code="BA#" displayName= "BASOPHIL #" /> <statusCode code="completed" /> < effectiveTime value="766815446041" /> <value unit="k/cumm" xsi:type="PQ " value="0.1" /> <referenceRange> <observationRange> <text>0.0-0.2</text> </observationRange> </ referenceRange> </observation> </component> <component> <observation moodCode="EVN" classCode="OBS"> <templateId root= "216.840.1.688850.03.15.22.4.2" /> <id nullFlavor="NA" /> < code codeSystem="local" code="BA%" displayName="BASOPHIL %" /> <statusCode code="completed" /> <effectiveTime value="" /> <value unit="%" xsi:type="PQ" value="1" /> < referenceRange> <observationRange> <text>0-1</text> </observationRange> </referenceRange> </observation> </component> <component> <observation moodCode="EVN" classCode= "OBS"> <templateId root="216.840.1.606462.03.15.22.4.2" /> < id nullFlavor="NA" /> <code codeSystem="local" code="EO#" displayName= "EOSINOPHIL #" /> <statusCode code="completed" /> < effectiveTime value="" /> <value unit="k/cumm" xsi:type="PQ " value="0.2" /> <referenceRange> <observationRange> <text>0.1-0.5</text> </observationRange> </ referenceRange> </observation> </component> <component> <observation moodCode="EVN" classCode="OBS"> <templateId root= "16.840.1.629661.03.15.22.4.2" /> <id nullFlavor="NA" /> < code codeSystem="local" code="EO%" displayName="EOSINOPHIL %" /> <statusCode code="completed" /> <effectiveTime value="" /> <value unit="%" xsi:type="PQ" value="3" /> < referenceRange> <observationRange> <text>2-4</text> </observationRange> </referenceRange> </observation> </component> <component> <observation moodCode="EVN" classCode= "OBS"> <templateId root="16.840.1.071549.1022.4.2" /> < id nullFlavor="NA" /> <code codeSystem="local" code="GR#" displayName= "GRANULOCYTE #" /> <statusCode code="completed" /> < effectiveTime value="" /> <value unit="k/cumm" xsi:type="PQ " value="3.8" /> <referenceRange> <observationRange> <text>2.0-9.0</text> </observationRange> </ referenceRange> </observation> </component> <component> <observation moodCode="EVN" classCode="OBS"> <templateId root= "07.12.840.1.682511.03.15.22.4.2" /> <id nullFlavor="NA" /> < code codeSystem="local" code="GR%" displayName="GRANULOCYTE %" /> <statusCode code="completed" /> <effectiveTime value=" " /> <value unit="%" xsi:type="PQ" value="52" /> < referenceRange> <observationRange> <text>50-75</text> </observationRange> </referenceRange> </observation> </component> <component> <observation moodCode="EVN" classCode= "OBS"> <templateId root="16.840.1.730509.1022.4.2" /> < id nullFlavor="NA" /> <code codeSystem="local" code="LY#" displayName= "LYMPHOCYTE #" /> <statusCode code="completed" /> < effectiveTime value="" /> <value unit="k/cumm" xsi:type="PQ " value="2.5" /> <referenceRange> <observationRange> <text>1.0-4.0</text> </observationRange> </ referenceRange> </observation> </component> <component> <observation moodCode="EVN" classCode="OBS"> <templateId root= "07.12.840.1.682460.03.15.22.4.2" /> <id nullFlavor="NA" /> < code codeSystem="local" code="LY%" displayName="LYMPHOCYTE %" /> <statusCode code="completed" /> <effectiveTime value="" /> <value unit="%" xsi:type="PQ" value="35" /> < interpretationCode codeSystem="local" code="*" /> <referenceRange> <observationRange> <text>20-30</text> </ observationRange> </referenceRange> </observation> </ component> <component> <observation moodCode="EVN" classCode="OBS"> <templateId root="07.12.840.1.521280.03.15.22.4.2" /> <id nullFlavor="NA" /> <code codeSystem="local" code="MCH" displayName= "MEAN CELL HGB" /> <statusCode code="completed" /> < effectiveTime value="" /> <value unit="pg" xsi:type="PQ" value="25.1" /> <interpretationCode codeSystem="local" code="*" /> <referenceRange> <observationRange> <text>27.0- 33.0</text> </observationRange> </referenceRange> </ observation> </component> <component> <observation moodCode= "EVN" classCode="OBS"> <templateId root="07.12.840.1.137129.03.15.22.4.2 " /> <id nullFlavor="NA" /> <code codeSystem="local" code= "MCHC" displayName="MEAN CELL HGB CONCENTRATION" /> <statusCode code= "completed" /> <effectiveTime value="" /> <value unit="g/dL" xsi:type="PQ" value="31.5" /> <interpretationCode codeSystem="local" code="*" /> <referenceRange> < observationRange> <text>32.0-37.0</text> </ observationRange> </referenceRange> </observation> </ component> <component> <observation moodCode="EVN" classCode="OBS"> <templateId root="16.840.1.121324.03.15.22.4.2" /> <id nullFlavor="NA" /> <code codeSystem="local" code="MCV" displayName= "MEAN CELL VOLUME" /> <statusCode code="completed" /> < effectiveTime value="" /> <value unit="fl" xsi:type="PQ" value="79.9" /> <interpretationCode codeSystem="local" code="*" /> <referenceRange> <observationRange> <text>80.0- 100.0</text> </observationRange> </referenceRange> </ observation> </component> <component> <observation moodCode= "EVN" classCode="OBS"> <templateId root="07.12.840.1.770568.10.22.4.2 " /> <id nullFlavor="NA" /> <code codeSystem="local" code="MO# " displayName="MONOCYTE #" /> <statusCode code="completed" /> <effectiveTime value="" /> <value unit="k/cumm" xsi:type= "PQ" value="0.8" /> <referenceRange> <observationRange> <text>0.1-1.0</text> </observationRange> </ referenceRange> </observation> </component> <component> <observation moodCode="EVN" classCode="OBS"> <templateId root= "216.840.1.936074.10.20.22.4.2" /> <id nullFlavor="NA" /> < code codeSystem="local" code="MO%" displayName="MONOCYTE %" /> <statusCode code="completed" /> <effectiveTime value="692869847200" /> <value unit="%" xsi:type="PQ" value="10" /> < interpretationCode codeSystem="local" code="*" /> <referenceRange> <observationRange> <text>4-6</text> </ observationRange> </referenceRange> </observation> </ component> <component> <observation moodCode="EVN" classCode="OBS"> <templateId root="07.12.840.1.379848.10.22.4.2" /> <id nullFlavor="NA" /> <code codeSystem="local" code="RBC" displayName=" RED BLOOD CELL" /> <statusCode code="completed" /> < effectiveTime value="603711670551" /> <value unit="m/cumm" xsi:type="PQ " value="4.02" /> <referenceRange> <observationRange> <text>4.00-6.00</text> </observationRange> </ referenceRange> </observation> </component> <component> <observation moodCode="EVN" classCode="OBS"> <templateId root= "16.840.1.663775.10.20.22.4.2" /> <id nullFlavor="NA" /> < code codeSystem="local" code="RDW" displayName="RED CELL DISTRIBUTION WIDTH" /> <statusCode code="completed" /> <effectiveTime value= "" /> <value unit="%" xsi:type="PQ" value="16.4" /> <interpretationCode codeSystem="local" code="*" /> < referenceRange> <observationRange> <text>11.0-15.6</text > </observationRange> </referenceRange> </observation > </component> <component> <observation moodCode="EVN" classCode="OBS"> <templateId root="2.16.840.1.807991....4.2" /> <id nullFlavor="NA" /> <code codeSystem="local" code="WBC" displayName="WHITE BLOOD CELL" /> <statusCode code="completed" /> <effectiveTime value="" /> <value unit="k/cumm" xsi: type="PQ" value="7.3" /> <referenceRange> <observationRange > <text>5.0-10.0</text> </observationRange> </ referenceRange> </observation> </component> <component> <observation moodCode="EVN" classCode="OBS"> <templateId root= "2.16.840.1.835857....4.2" /> <id nullFlavor="NA" /> < code codeSystem="local" code="HGBT" displayName="HEMOGLOBIN" /> < statusCode code="completed" /> <effectiveTime value="" /> <value unit="gm/dL" xsi:type="PQ" value="10.1" /> < interpretationCode codeSystem="local" code="*" /> <referenceRange> <observationRange> <text>12.0-16.0</text> </ observationRange> </referenceRange> </observation> </ component> <component> <observation moodCode="EVN" classCode="OBS"> <templateId root="2.16.840.1.315769.10...4.2" /> <id nullFlavor="NA" /> <code codeSystem="local" code="HCTT" displayName= "HEMATOCRIT" /> <statusCode code="completed" /> < effectiveTime value="" /> <value unit="%" xsi:type="PQ " value="32.1" /> <interpretationCode codeSystem="local" code="*" /> <referenceRange> <observationRange> <text>37.0- 47.0</text> </observationRange> </referenceRange> </ observation> </component> <component> <observation moodCode= "EVN" classCode="OBS"> <templateId root="216.840.1.498326.03.15.22.4.2 " /> <id nullFlavor="NA" /> <code codeSystem="local" code="PLT " displayName="PLATELET COUNT" /> <statusCode code="completed" /> <effectiveTime value="780368711397" /> <value unit="k/cumm" xsi: type="PQ" value="299" /> <referenceRange> <observationRange > <text>150-400</text> </observationRange> </ referenceRange> </observation> </component> </organizer> </entry > <entry> <organizer moodCode="EVN" classCode="BATTERY"> <templateId root="2.16.840.1.380748.10...4.1" /> <id nullFlavor="NA" /> <code codeSystem="local" code="LIVER" displayName="HEPATIC FUNCTION PANEL" /> < statusCode code="completed" /> <component> <observation moodCode= "EVN" classCode="OBS"> <templateId root="16.840.1.071074.10.20.22.4.2 " /> <id nullFlavor="NA" /> <code codeSystem="local" code= "BILUC" displayName="BILI UNCONJUGATED" /> <statusCode code="completed " /> <effectiveTime value="" /> <value unit="mg/dL " xsi:type="PQ" value="0.2" /> <referenceRange> < observationRange> <text>0.0-0.7</text> </ observationRange> </referenceRange> </observation> </ component> <component> <observation moodCode="EVN" classCode="OBS"> <templateId root="07.12.840.1.256580.10.22.4.2" /> <id nullFlavor="NA" /> <code codeSystem="local" code="AST" displayName="AST /SGOT" /> <statusCode code="completed" /> <effectiveTime value ="" /> <value unit="Units/L" xsi:type="PQ" value="16" /> <referenceRange> <observationRange> <text>10-37< /text> </observationRange> </referenceRange> </ observation> </component> <component> <observation moodCode= "EVN" classCode="OBS"> <templateId root="16.840.1.899554.10.2022.4.2 " /> <id nullFlavor="NA" /> <code codeSystem="local" code="ALT " displayName="ALT/SGPT" /> <statusCode code="completed" /> < effectiveTime value="" /> <value unit="Units/L" xsi:type= "PQ" value="20" /> <referenceRange> <observationRange> <text>< 66</text> </observationRange> </ referenceRange> </observation> </component> <component> <observation moodCode="EVN" classCode="OBS"> <templateId root= "16.840.1.449131.10.22.4.2" /> <id nullFlavor="NA" /> < code codeSystem="local" code="TP" displayName="TOTAL PROTEIN" /> < statusCode code="completed" /> <effectiveTime value="560740859053" /> <value unit="gm/dL" xsi:type="PQ" value="7.3" /> < referenceRange> <observationRange> <text>6.4-8.2</text> </observationRange> </referenceRange> </observation > </component> <component> <observation moodCode="EVN" classCode="OBS"> <templateId root="07.12.840.1.737223.03.15.22.4.2" /> <id nullFlavor="NA" /> <code codeSystem="local" code="ALB" displayName="ALBUMIN" /> <statusCode code="completed" /> < effectiveTime value="571950401978" /> <value unit="gm/dL" xsi:type="PQ " value="3.9" /> <referenceRange> <observationRange> <text>3.4-5.0</text> </observationRange> </ referenceRange> </observation> </component> <component> <observation moodCode="EVN" classCode="OBS"> <templateId root= "07.12.840.1.280110.10.22.4.2" /> <id nullFlavor="NA" /> < code codeSystem="local" code="BILTOT" displayName="BILI TOTAL" /> < statusCode code="completed" /> <effectiveTime value="" /> <value unit="mg/dL" xsi:type="PQ" value="0.3" /> < referenceRange> <observationRange> <text>0.0-1.0</text> </observationRange> </referenceRange> </observation > </component> <component> <observation moodCode="EVN" classCode="OBS"> <templateId root="216.840.1.503142.10..22.4.2" /> <id nullFlavor="NA" /> <code codeSystem="local" code="ALKP" displayName="ALKALINE PHOSPHATASE TOTAL" /> <statusCode code="completed " /> <effectiveTime value="747624500200" /> <value unit="IU/L " xsi:type="PQ" value="88" /> <referenceRange> < observationRange> <text>45-117</text> </observationRange > </referenceRange> </observation> </component> < component> <observation moodCode="EVN" classCode="OBS"> < templateId root="216.840.1.151245.10...4.2" /> <id nullFlavor="NA " /> <code codeSystem="local" code="BILC" displayName="BILI CONJUGATED " /> <statusCode code="completed" /> <effectiveTime value= "037020382882" /> <value unit="mg/dL" xsi:type="PQ" value="0.1" /> <referenceRange> <observationRange> <text>0.0-0.3< /text> </observationRange> </referenceRange> </ observation> </component> </organizer> </entry> <entry> <organizer moodCode="EVN" classCode="BATTERY"> <templateId root= "2.16.840.1.562880.10..22.4.1" /> <id nullFlavor="NA" /> <code codeSystem="local" code="LIP" displayName="LIPASE" /> <statusCode code= "completed" /> <component> <observation moodCode="EVN" classCode= "OBS"> <templateId root="16.840.1.129288.10.4.2" /> < id nullFlavor="NA" /> <code codeSystem="local" code="LIP" displayName= "LIPASE" /> <statusCode code="completed" /> <effectiveTime value="379424201637" /> <value unit="Units/L" xsi:type="PQ" value="152 " /> <referenceRange> <observationRange> <text> 73-393</text> </observationRange> </referenceRange> < /observation> </component> </organizer> </entry> <entry> < organizer moodCode="EVN" classCode="BATTERY"> <templateId root= "16.840.1.758924.10..4.1" /> <id nullFlavor="NA" /> <code codeSystem="local" code="iCHEM8" displayName="CHEM/HEM PROFILE-BEDSIDE" /> <statusCode code="completed" /> <component> <observation moodCode= "EVN" classCode="OBS"> <templateId root="16.840.1.753490.10..4.2 " /> <id nullFlavor="NA" /> <code codeSystem="local" code="K" displayName="POTASSIUM" /> <statusCode code="completed" /> < effectiveTime value="921052040252" /> <value unit="mmol/L" xsi:type="PQ " value="3.2" /> <interpretationCode codeSystem="local" code="*" /> <referenceRange> <observationRange> <text>3.5-5.3 </text> </observationRange> </referenceRange> </ observation> </component> <component> <observation moodCode= "EVN" classCode="OBS"> <templateId root="16.840.1.671059.03.15.22.4.2 " /> <id nullFlavor="NA" /> <code codeSystem="local" code= "CMETHOD" displayName="METHOD" /> <statusCode code="completed" /> <effectiveTime value="" /> <value unit="" xsi:type="PQ " value="Bedside" /> <referenceRange> <observationRange> <text /> </observationRange> </referenceRange> </observation> </component> <component> <observation moodCode="EVN" classCode="OBS"> <templateId root= "07.12.840.1.165714.03.15.22.4.2" /> <id nullFlavor="NA" /> < code codeSystem="local" code="GAP" displayName="ANION GAP" /> < statusCode code="completed" /> <effectiveTime value="" /> <value unit="mmol/L" xsi:type="PQ" value="19" /> < referenceRange> <observationRange> <text>10-20</text> </observationRange> </referenceRange> </observation> </component> <component> <observation moodCode="EVN" classCode= "OBS"> <templateId root="07.12.840.1.198032.03.15.22.4.2" /> < id nullFlavor="NA" /> <code codeSystem="local" code="HMETHOD" displayName="METHOD" /> <statusCode code="completed" /> < effectiveTime value="" /> <value unit="" xsi:type="PQ" value="Bedside" /> <referenceRange> <observationRange> <text /> </observationRange> </referenceRange> </observation> </component> <component> <observation moodCode="EVN" classCode="OBS"> <templateId root= "07.12.840.1.467614.1022.4.2" /> <id nullFlavor="NA" /> < code codeSystem="local" code="GLU" displayName="GLUCOSE" /> < statusCode code="completed" /> <effectiveTime value="367348117309" /> <value unit="mg/dL" xsi:type="PQ" value="91" /> < referenceRange> <observationRange> <text>70-99</text> </observationRange> </referenceRange> </observation> </component> <component> <observation moodCode="EVN" classCode= "OBS"> <templateId root="07.12.840.1.981526.03.15.22.4.2" /> < id nullFlavor="NA" /> <code codeSystem="local" code="BUN" displayName= "BLOOD UREA NITROGEN" /> <statusCode code="completed" /> < effectiveTime value="538948566250" /> <value unit="mg/dL" xsi:type="PQ " value="6" /> <interpretationCode codeSystem="local" code="*" /> <referenceRange> <observationRange> <text>7-20</ text> </observationRange> </referenceRange> </ observation> </component> <component> <observation moodCode= "EVN" classCode="OBS"> <templateId root="07.12.840.1.251923.03.15.22.4.2 " /> <id nullFlavor="NA" /> <code codeSystem="local" code= "CREAT" displayName="CREATININE" /> <statusCode code="completed" /> <effectiveTime value="533958598041" /> <value unit="mg/dL" xsi: type="PQ" value="0.6" /> <referenceRange> <observationRange > <text>0.6-1.0</text> </observationRange> </ referenceRange> </observation> </component> <component> <observation moodCode="EVN" classCode="OBS"> <templateId root= "2.16.840.1.291694.10.22.4.2" /> <id nullFlavor="NA" /> < code codeSystem="local" code="HGBT" displayName="HEMOGLOBIN" /> < statusCode code="completed" /> <effectiveTime value="294313542744" /> <value unit="gm/dL" xsi:type="PQ" value="10.5" /> < interpretationCode codeSystem="local" code="*" /> <referenceRange> <observationRange> <text>12.0-16.0</text> </ observationRange> </referenceRange> </observation> </ component> <component> <observation moodCode="EVN" classCode="OBS"> <templateId root="2.16.840.1.513488.10.20..4.2" /> <id nullFlavor="NA" /> <code codeSystem="local" code="HCTT" displayName= "HEMATOCRIT" /> <statusCode code="completed" /> < effectiveTime value="410953952756" /> <value unit="%" xsi:type="PQ " value="31.0" /> <interpretationCode codeSystem="local" code="*" /> <referenceRange> <observationRange> <text>37.0- 47.0</text> </observationRange> </referenceRange> </ observation> </component> <component> <observation moodCode= "EVN" classCode="OBS"> <templateId root="216.840.1.903548.10..22.4.2 " /> <id nullFlavor="NA" /> <code codeSystem="local" code="NA " displayName="SODIUM" /> <statusCode code="completed" /> < effectiveTime value="022874165345" /> <value unit="mmol/L" xsi:type="PQ " value="139" /> <referenceRange> <observationRange> <text>135-148</text> </observationRange> </ referenceRange> </observation> </component> <component> <observation moodCode="EVN" classCode="OBS"> <templateId root= "216.840.1.546649.10...4.2" /> <id nullFlavor="NA" /> < code codeSystem="local" code="CL" displayName="CHLORIDE" /> < statusCode code="completed" /> <effectiveTime value="088635731243" /> <value unit="mmol/L" xsi:type="PQ" value="105" /> < referenceRange> <observationRange> <text>98-110</text> </observationRange> </referenceRange> </observation> </component> <component> <observation moodCode="EVN" classCode ="OBS"> <templateId root="216.840.1.987940.10..22.4.2" /> < id nullFlavor="NA" /> <code codeSystem="local" code="CO2" displayName= "CARBON DIOXIDE" /> <statusCode code="completed" /> < effectiveTime value="581833949984" /> <value unit="mmol/L" xsi:type="PQ " value="20" /> <interpretationCode codeSystem="local" code="*" /> <referenceRange> <observationRange> <text>21-32</ text> </observationRange> </referenceRange> </ observation> </component> <component> <observation moodCode= "EVN" classCode="OBS"> <templateId root="2.16.840.1.257278.10..22.4.2 " /> <id nullFlavor="NA" /> <code codeSystem="local" code= "CAION" displayName="CALCIUM IONIZED" /> <statusCode code="completed" / > <effectiveTime value="733603708006" /> <value unit="mg/dL" xsi:type="PQ" value="4.5" /> <referenceRange> < observationRange> <text>4.5-5.3</text> </ observationRange> </referenceRange> </observation> </ component> </organizer> </entry> <entry> <organizer moodCode="EVN" classCode="BATTERY"> <templateId root="2.16.840.1.587151.10.20.22.4.1" /> <id nullFlavor="NA" /> <code codeSystem="local" code="PREGN" displayName=" Screen, Urine NPT" /> <statusCode code="completed" / > <component> <observation moodCode="EVN" classCode="OBS"> <templateId root="2.16.840.1.126955.10.20.22.4.2" /> <id nullFlavor="NA " /> <code codeSystem="local" code="PREGN" displayName=" Screen, Urine NPT" /> <statusCode code="completed" /> < effectiveTime value="829204449032" /> <value unit="NA" xsi:type="PQ" value="Negative" /> <referenceRange> <observationRange> <text /> </observationRange> </referenceRange> </observation> </component> </organizer> </entry> <entry> < organizer moodCode="EVN" classCode="BATTERY"> <templateId root= "216.840.1.176582.10...4.1" /> <id nullFlavor="NA" /> <code codeSystem="local" code="PREGU" displayName="UR TEST" /> < statusCode code="completed" /> <component> <observation moodCode= "EVN" classCode="OBS"> <templateId root="07.12.840.1.430686.03.15.22.4.2 " /> <id nullFlavor="NA" /> <code codeSystem="local" code= "PREGU" displayName="UR TEST" /> <statusCode code="completed " /> <effectiveTime value="199063212424" /> <value unit="" xsi :type="PQ" value="NEGATIVE" /> <referenceRange> < observationRange> <text>NEGATIVE</text> </ observationRange> </referenceRange> </observation> </ component> </organizer> </entry> <entry> <organizer moodCode="EVN" classCode="BATTERY"> <templateId root="07.12.840.1.137564.03.15.22.4.1" /> <id nullFlavor="NA" /> <code codeSystem="local" code="UA" displayName= "URINALYSIS, ROUTINE" /> <statusCode code="completed" /> <component> <observation moodCode="EVN" classCode="OBS"> <templateId root= "16.840.1.695536.10..4.2" /> <id nullFlavor="NA" /> < code codeSystem="local" code="LEUESU" displayName="UA LEUKOCYTE ESTERASE DIPSTICK" /> <statusCode code="completed" /> <effectiveTime value="226199183706" /> <value unit="" xsi:type="PQ" value="2+" /> <interpretationCode codeSystem="local" code="*" /> < referenceRange> <observationRange> <text>NEGATIVE</text > </observationRange> </referenceRange> </observation > </component> <component> <observation moodCode="EVN" classCode="OBS"> <templateId root="07.12.840.1.958768.03.15.22.4.2" /> <id nullFlavor="NA" /> <code codeSystem="local" code="NITRIU" displayName="UA NITRITE DIPSTICK" /> <statusCode code="completed" /> <effectiveTime value="053035961715" /> <value unit="" xsi:type= "PQ" value="POSITIVE" /> <interpretationCode codeSystem="local" code="* " /> <referenceRange> <observationRange> <text> NEGATIVE</text> </observationRange> </referenceRange> </observation> </component> <component> <observation moodCode ="EVN" classCode="OBS"> <templateId root= "07.12.840.1.843826.03.15.22.4.2" /> <id nullFlavor="NA" /> < code codeSystem="local" code="PROTEIU" displayName="UA PROTEIN DIPSTICK" /> <statusCode code="completed" /> <effectiveTime value= "745722239214" /> <value unit="" xsi:type="PQ" value="TRACE" /> <interpretationCode codeSystem="local" code="*" /> <referenceRange> <observationRange> <text>NEGATIVE</text> </ observationRange> </referenceRange> </observation> </ component> <component> <observation moodCode="EVN" classCode="OBS"> <templateId root="07.12.840.1.592480.03.15.22.4.2" /> <id nullFlavor="NA" /> <code codeSystem="local" code="DGLUU" displayName= "UA GLUCOSE DIPSTICK" /> <statusCode code="completed" /> < effectiveTime value="767059876034" /> <value unit="" xsi:type="PQ" value="NEGATIVE" /> <referenceRange> <observationRange> <text>NEGATIVE</text> </observationRange> </ referenceRange> </observation> </component> <component> <observation moodCode="EVN" classCode="OBS"> <templateId root= "2.16.840.1.086750.03.15.22.4.2" /> <id nullFlavor="NA" /> < code codeSystem="local" code="KETONU" displayName="UA KETONE DIPSTICK" /> <statusCode code="completed" /> <effectiveTime value="793285893097 " /> <value unit="" xsi:type="PQ" value="TRACE" /> < interpretationCode codeSystem="local" code="*" /> <referenceRange> <observationRange> <text>NEGATIVE</text> </ observationRange> </referenceRange> </observation> </ component> <component> <observation moodCode="EVN" classCode="OBS"> <templateId root="2.16.840.1.281664.03.15.22.4.2" /> <id nullFlavor="NA" /> <code codeSystem="local" code="UROBILU" displayName= "UA UROBILINOGEN DIPSTICK" /> <statusCode code="completed" /> <effectiveTime value="711295235190" /> <value unit="" xsi:type="PQ" value="NORMAL" /> <referenceRange> <observationRange> <text>NORMAL</text> </observationRange> </ referenceRange> </observation> </component> <component> <observation moodCode="EVN" classCode="OBS"> <templateId root= "216.840.1.813246.10..22.4.2" /> <id nullFlavor="NA" /> < code codeSystem="local" code="BILU" displayName="UA BILIRUBIN DIPSTICK" /> <statusCode code="completed" /> <effectiveTime value="117170874734 " /> <value unit="" xsi:type="PQ" value="NEGATIVE" /> < referenceRange> <observationRange> <text>NEGATIVE</text > </observationRange> </referenceRange> </observation > </component> <component> <observation moodCode="EVN" classCode="OBS"> <templateId root="216.840.1.748393.10...4.2" /> <id nullFlavor="NA" /> <code codeSystem="local" code="LON" displayName="UA BLOOD DIPSTICK" /> <statusCode code="completed" /> <effectiveTime value="997421268971" /> <value unit="" xsi:type= "PQ" value="4+" /> <interpretationCode codeSystem="local" code="*" /> <referenceRange> <observationRange> <text> NEGATIVE</text> </observationRange> </referenceRange> </observation> </component> <component> <observation moodCode ="EVN" classCode="OBS"> <templateId root= "216.840.1.102731.10..22.4.2" /> <id nullFlavor="NA" /> < code codeSystem="local" code="SPGRU" displayName="UA SPECIFIC GRAVITY" /> <statusCode code="completed" /> <effectiveTime value="827994343660 " /> <value unit="" xsi:type="PQ" value="1.018" /> < referenceRange> <observationRange> <text>1.015-1.025</ text> </observationRange> </referenceRange> </ observation> </component> <component> <observation moodCode= "EVN" classCode="OBS"> <templateId root="16.840.1.867718.10.2022.4.2 " /> <id nullFlavor="NA" /> <code codeSystem="local" code="WILLOW " displayName="UR PH" /> <statusCode code="completed" /> < effectiveTime value="627989321444" /> <value unit="" xsi:type="PQ" value="6.5" /> <referenceRange> <observationRange> <text>5.0-7.0</text> </observationRange> </ referenceRange> </observation> </component> </organizer> </entry > <entry> <organizer moodCode="EVN" classCode="BATTERY"> <templateId root="07.12.840.1.271198.10..22.4.1" /> <id nullFlavor="NA" /> <code codeSystem="local" code="UAMICRO" displayName="UA MICROSCOPIC" /> < statusCode code="completed" /> <component> <observation moodCode= "EVN" classCode="OBS"> <templateId root="07.12.840.1.151511.102022.4.2 " /> <id nullFlavor="NA" /> <code codeSystem="local" code= "BACU" displayName="UA BACTERIA" /> <statusCode code="completed" /> <effectiveTime value="099036052314" /> <value unit="" xsi:type= "PQ" value="5+" /> <interpretationCode codeSystem="local" code="*" /> <referenceRange> <observationRange> <text> NEGATIVE</text> </observationRange> </referenceRange> </observation> </component> <component> <observation moodCode ="EVN" classCode="OBS"> <templateId root= "16.840.1.864596.1022.4.2" /> <id nullFlavor="NA" /> < code codeSystem="local" code="EPIU" displayName="UA EPITHELIAL CELLS" /> <statusCode code="completed" /> <effectiveTime value="204495999461" /> <value unit="epi/hpf" xsi:type="PQ" value="4+" /> < interpretationCode codeSystem="local" code="*" /> <referenceRange> <observationRange> <text>0 - 1+</text> </ observationRange> </referenceRange> </observation> </ component> <component> <observation moodCode="EVN" classCode="OBS"> <templateId root="07.12.840.1.100235.03.15.22.4.2" /> <id nullFlavor="NA" /> <code codeSystem="local" code="MUCUSU" displayName= "UA MUCUS" /> <statusCode code="completed" /> <effectiveTime value="964731975546" /> <value unit="" xsi:type="PQ" value="2+" /> <interpretationCode codeSystem="local" code="*" /> < referenceRange> <observationRange> <text>NEG TO 1+</text > </observationRange> </referenceRange> </observation > </component> <component> <observation moodCode="EVN" classCode="OBS"> <templateId root="07.12.840.1.838406.1022.4.2" /> <id nullFlavor="NA" /> <code codeSystem="local" code="RBCU" displayName="UA RBC" /> <statusCode code="completed" /> < effectiveTime value="597526098489" /> <value unit="rbc/hpf" xsi:type= "PQ" value="3-5" /> <interpretationCode codeSystem="local" code="*" /> <referenceRange> <observationRange> <text>0 - 3</text> </observationRange> </referenceRange> </ observation> </component> <component> <observation moodCode= "EVN" classCode="OBS"> <templateId root="2.16.840.1.503883.10..22.4.2 " /> <id nullFlavor="NA" /> <code codeSystem="local" code= "UAVOL" displayName="UA VOLUME FOR EXAM" /> <statusCode code="completed " /> <effectiveTime value="608480417759" /> <value unit="mL" xsi:type="PQ" value="12.0" /> <referenceRange> < observationRange> <text>(12mL STD)</text> </ observationRange> </referenceRange> </observation> </ component> <component> <observation moodCode="EVN" classCode="OBS"> <templateId root="2.16.840.1.130119.10..22.4.2" /> <id nullFlavor="NA" /> <code codeSystem="local" code="WBCU" displayName=" UA WBC" /> <statusCode code="completed" /> <effectiveTime value="776102787255" /> <value unit="wbc/hpf" xsi:type="PQ" value="20- 50" /> <interpretationCode codeSystem="local" code="*" /> < referenceRange> <observationRange> <text>0 - 5</text> </observationRange> </referenceRange> </observation> </component> </organizer> </entry> <entry> <organizer moodCode="EVN " classCode="BATTERY"> <templateId root="2.16.840.1.537879.10.20.22.4.1" / > <id nullFlavor="NA" /> <code codeSystem="local" code="UC" displayName="URINE CULTURE" /> <statusCode code="completed" /> < component> <observation moodCode="EVN" classCode="OBS"> < templateId root="2.16.840.1.754374.10.20.22.4.2" /> <id nullFlavor="NA " /> <code codeSystem="local" code="MB" displayName="Microbiology" /> <statusCode code="completed" /> <effectiveTime value= "618848524482" /> <value xsi:type="ST" value="<pre><b> URINE CULTURE</b> See [...] SPIPERACILLIN/TAZOBZCTAM VITEK &lt ;=4 STRIMETH/SULFA VITEK <=20 [facility] [place] [address]</pre>" /> <referenceRange> <observationRange> <text /> </ observationRange> </referenceRange> </observation> </ component> </organizer> </entry> <entry> <organizer moodCode="EVN" classCode="BATTERY"> <templateId root="16.840.1.254051.10..22.4.1" /> <id nullFlavor="NA" /> <code codeSystem="local" code="PREGN" displayName=" Screen, Urine NPT" /> <statusCode code="completed" / > <component> <observation moodCode="EVN" classCode="OBS"> <templateId root="07.12.840.1.765289.03.15.22.4.2" /> <id nullFlavor="NA " /> <code codeSystem="local" code="PREGN" displayName=" Screen, Urine NPT" /> <statusCode code="completed" /> < effectiveTime value="" /> <value unit="NA" xsi:type="PQ" value="Negative" /> <referenceRange> <observationRange> <text /> </observationRange> </referenceRange> </observation> </component> </organizer> </entry> <entry> < organizer moodCode="EVN" classCode="BATTERY"> <templateId root= "07.12.840.1.536648.10...4.1" /> <id nullFlavor="NA" /> <code codeSystem="local" code="VCHMN" displayName="Chem 8 NPT" /> <statusCode code="completed" /> <component> <observation moodCode="EVN" classCode="OBS"> <templateId root="07.12.840.1.713660.10..22.4.2" /> <id nullFlavor="NA" /> <code codeSystem="local" code="VAGAP" displayName="Anion Gap" /> <statusCode code="completed" /> < effectiveTime value="" /> <value unit="NA" xsi:type="PQ" value="11" /> <referenceRange> <observationRange> <text>3-20</text> </observationRange> </referenceRange> </observation> </component> <component> <observation moodCode="EVN" classCode="OBS"> <templateId root= "07.12.840.1.760051.10.20.22.4.2" /> <id nullFlavor="NA" /> < code codeSystem="local" code="VBUNN" displayName="BUN Venous" /> < statusCode code="completed" /> <effectiveTime value="347934170319" /> <value unit="mg/dl" xsi:type="PQ" value="12" /> < referenceRange> <observationRange> <text>4-20</text> </observationRange> </referenceRange> </observation> </component> <component> <observation moodCode="EVN" classCode= "OBS"> <templateId root="840.1.620439.10...4.2" /> < id nullFlavor="NA" /> <code codeSystem="local" code="VCANN" displayName ="Calcium Ionized Venous" /> <statusCode code="completed" /> < effectiveTime value="952907026050" /> <value unit="mmol/L" xsi:type="PQ " value="1.15" /> <interpretationCode codeSystem="local" code="*" /> <referenceRange> <observationRange> <text>1.19- 1.41</text> </observationRange> </referenceRange> </ observation> </component> <component> <observation moodCode= "EVN" classCode="OBS"> <templateId root="07.12.840.1.722760.10.20.22.4.2 " /> <id nullFlavor="NA" /> <code codeSystem="local" code= "VCREN" displayName="Creatinine Venous" /> <statusCode code="completed " /> <effectiveTime value="144670796176" /> <value unit="mg/dL " xsi:type="PQ" value="0.6" /> <referenceRange> < observationRange> <text>0.4-1.0</text> </ observationRange> </referenceRange> </observation> </ component> <component> <observation moodCode="EVN" classCode="OBS"> <templateId root="840.1.786740.10..22.4.2" /> <id nullFlavor="NA" /> <code codeSystem="local" code="VGLNN" displayName= "Glucose Venous" /> <statusCode code="completed" /> < effectiveTime value="821106947708" /> <value unit="mg/dL" xsi:type="PQ " value="78" /> <referenceRange> <observationRange> <text>70-100</text> </observationRange> </ referenceRange> </observation> </component> <component> <observation moodCode="EVN" classCode="OBS"> <templateId root= "840.1.299097.10..22.4.2" /> <id nullFlavor="NA" /> < code codeSystem="local" code="VKNN" displayName="Potassium, WB" /> < statusCode code="completed" /> <effectiveTime value="668268187484" /> <value unit="mEq/L" xsi:type="PQ" value="3.8" /> < referenceRange> <observationRange> <text>3.6-5.1</text> </observationRange> </referenceRange> </observation > </component> <component> <observation moodCode="EVN" classCode="OBS"> <templateId root="07.12.830.1.804797.10..22.4.2" /> <id nullFlavor="NA" /> <code codeSystem="local" code="VNANN" displayName="Sodium Venous" /> <statusCode code="completed" /> <effectiveTime value="727737190306" /> <value unit="mEq/L" xsi:type= "PQ" value="140" /> <referenceRange> <observationRange> <text>136-144</text> </observationRange> </ referenceRange> </observation> </component> <component> <observation moodCode="EVN" classCode="OBS"> <templateId root= "216.840.1.544838.10..22.4.2" /> <id nullFlavor="NA" /> < code codeSystem="local" code="VTCNN" displayName="Total CO2 Venous" /> <statusCode code="completed" /> <effectiveTime value="904348534520" /> <value unit="mEq/L" xsi:type="PQ" value="25" /> < referenceRange> <observationRange> <text>25-29</text> </observationRange> </referenceRange> </observation> </component> <component> <observation moodCode="EVN" classCode= "OBS"> <templateId root="216.840.1.023813.10.22.4.2" /> < id nullFlavor="NA" /> <code codeSystem="local" code="VCLN" displayName= "Venous CL" /> <statusCode code="completed" /> <effectiveTime value="737345783772" /> <value unit="mEq/L" xsi:type="PQ" value="104" / > <referenceRange> <observationRange> <text>99- 109</text> </observationRange> </referenceRange> </ observation> </component> <component> <observation moodCode= "EVN" classCode="OBS"> <templateId root="216.840.1.724866.10..4.2 " /> <id nullFlavor="NA" /> <code codeSystem="local" code= "VHCNN" displayName="HCT Venous" /> <statusCode code="completed" /> <effectiveTime value="391620022888" /> <value unit="%" xsi: type="PQ" value="26.0" /> <interpretationCode codeSystem="local" code= "*" /> <referenceRange> <observationRange> < text>37.0-47.0</text> </observationRange> </referenceRange> </observation> </component> <component> <observation moodCode="EVN" classCode="OBS"> <templateId root= "07.12.840.1.570393.03.15.22.4.2" /> <id nullFlavor="NA" /> < code codeSystem="local" code="VHGNN" displayName="HGB Venous NPT" /> < statusCode code="completed" /> <effectiveTime value="411960562828" /> <value unit="g/dL" xsi:type="PQ" value="8.8" /> < interpretationCode codeSystem="local" code="*" /> <referenceRange> <observationRange> <text>12.0-16.0</text> </ observationRange> </referenceRange> </observation> </ component> </organizer> </entry> <entry> <organizer moodCode="EVN" classCode="BATTERY"> <templateId root="216.840.1.724192.10.20.22.4.1" /> <id nullFlavor="NA" /> <code codeSystem="local" code="UA" displayName= "Urinalysis with reflex microscopic" /> <statusCode code="completed" /> <component> <observation moodCode="EVN" classCode="OBS"> < templateId root="16.840.1.400941.03.15.22.4.2" /> <id nullFlavor="NA " /> <code codeSystem="local" code="UAPP" displayName="Appearance" /> <statusCode code="completed" /> <effectiveTime value= "" /> <value unit="NA" xsi:type="PQ" value="Sl Cloudy" /> <referenceRange> <observationRange> <text /> </observationRange> </referenceRange> </observation> </component> <component> <observation moodCode="EVN" classCode= "OBS"> <templateId root="216.840.1.254971.03.15.224.2" /> < id nullFlavor="NA" /> <code codeSystem="local" code="UBIL" displayName= "Bilirubin" /> <statusCode code="completed" /> <effectiveTime value="" /> <value unit="NA" xsi:type="PQ" value="Negative " /> <referenceRange> <observationRange> <text> Negative</text> </observationRange> </referenceRange> </observation> </component> <component> <observation moodCode ="EVN" classCode="OBS"> <templateId root= "07.12.840.1.375929.10.4.2" /> <id nullFlavor="NA" /> < code codeSystem="local" code="UBLD" displayName="Blood" /> <statusCode code="completed" /> <effectiveTime value="" /> < value unit="NA" xsi:type="PQ" value="Pos 3+" /> <interpretationCode codeSystem="local" code="*" /> <referenceRange> < observationRange> <text>Negative</text> </ observationRange> </referenceRange> </observation> </ component> <component> <observation moodCode="EVN" classCode="OBS"> <templateId root="16.840.1.919667.10..4.2" /> <id nullFlavor="NA" /> <code codeSystem="local" code="UCOLR" displayName= "Color" /> <statusCode code="completed" /> <effectiveTime value="" /> <value unit="NA" xsi:type="PQ" value="Yellow" / > <referenceRange> <observationRange> <text /> </observationRange> </referenceRange> </observation > </component> <component> <observation moodCode="EVN" classCode="OBS"> <templateId root="840.1.732734.03.15.22.4.2" /> <id nullFlavor="NA" /> <code codeSystem="local" code="UGLU" displayName="Glucose, Urine" /> <statusCode code="completed" /> <effectiveTime value="" /> <value unit="" xsi:type="PQ" value="Negative" /> <referenceRange> <observationRange> <text>Negative</text> </observationRange> </ referenceRange> </observation> </component> <component> <observation moodCode="EVN" classCode="OBS"> <templateId root= "840.1.632205.03.15.22.4.2" /> <id nullFlavor="NA" /> < code codeSystem="local" code="UKET" displayName="Ketones" /> < statusCode code="completed" /> <effectiveTime value="835371271548" /> <value unit="" xsi:type="PQ" value="Negative" /> < referenceRange> <observationRange> <text>Negative</text > </observationRange> </referenceRange> </observation > </component> <component> <observation moodCode="EVN" classCode="OBS"> <templateId root="07.12.840.1.972084.10.4.2" /> <id nullFlavor="NA" /> <code codeSystem="local" code="ULEU" displayName="Leukocyte Esterase" /> <statusCode code="completed" /> <effectiveTime value="" /> <value unit="NA" xsi:type ="PQ" value="Negative" /> <referenceRange> <observationRange > <text>Negative</text> </observationRange> </ referenceRange> </observation> </component> <component> <observation moodCode="EVN" classCode="OBS"> <templateId root= "840.1.146856.03.15.22.4.2" /> <id nullFlavor="NA" /> < code codeSystem="local" code="UNIT" displayName="Nitrites" /> < statusCode code="completed" /> <effectiveTime value="" /> <value unit="NA" xsi:type="PQ" value="Negative" /> < referenceRange> <observationRange> <text>Negative</text > </observationRange> </referenceRange> </observation > </component> <component> <observation moodCode="EVN" classCode="OBS"> <templateId root="840.1.730707.03.15.22.4.2" /> <id nullFlavor="NA" /> <code codeSystem="local" code="UPH" displayName="pH" /> <statusCode code="completed" /> < effectiveTime value="" /> <value unit="NA" xsi:type="PQ" value="5.0" /> <referenceRange> <observationRange> <text>5.0-8.0</text> </observationRange> </ referenceRange> </observation> </component> <component> <observation moodCode="EVN" classCode="OBS"> <templateId root= "216.840.1.023609.03.15.22.4.2" /> <id nullFlavor="NA" /> < code codeSystem="local" code="UPRO" displayName="Protein" /> < statusCode code="completed" /> <effectiveTime value="" /> <value unit="NA" xsi:type="PQ" value="Negative" /> < referenceRange> <observationRange> <text>Negative</text > </observationRange> </referenceRange> </observation > </component> <component> <observation moodCode="EVN" classCode="OBS"> <templateId root="16.840.1.313461.03.15.22.4.2" /> <id nullFlavor="NA" /> <code codeSystem="local" code="USPG" displayName="Specific [place]" /> <statusCode code="completed" /> <effectiveTime value="" /> <value unit="NA" xsi:type= "PQ" value="1.030" /> <referenceRange> <observationRange> <text>1.003-1.030</text> </observationRange> </ referenceRange> </observation> </component> <component> <observation moodCode="EVN" classCode="OBS"> <templateId root= "16.840.1.807989.03.15.22.4.2" /> <id nullFlavor="NA" /> < code codeSystem="local" code="UTYP" displayName="UA Collection type" /> <statusCode code="completed" /> <effectiveTime value="[id number]" / > <value unit="NA" xsi:type="PQ" value="Clean Catch" /> < referenceRange> <observationRange> <text /> < /observationRange> </referenceRange> </observation> </ component> <component> <observation moodCode="EVN" classCode="OBS"> <templateId root="07.12.840.1.135584.10.4.2" /> <id nullFlavor="NA" /> <code codeSystem="local" code="UURO" displayName= "Urobilinogen" /> <statusCode code="completed" /> < effectiveTime value="[id number]" /> <value unit="mg/dL" xsi:type="PQ " value="Negative" /> <referenceRange> <observationRange> <text><1.0</text> </observationRange> </ referenceRange> </observation> </component> </organizer> </entry > <entry> <organizer moodCode="EVN" classCode="BATTERY"> <templateId root="07.12.840.1.741109.03.15.22.4.1" /> <id nullFlavor="NA" /> <code codeSystem="local" code="UMIC" displayName="Urine Microscopic" /> < statusCode code="completed" /> <component> <observation moodCode= "EVN" classCode="OBS"> <templateId root="840.1.103561.03.15.22.4.2 " /> <id nullFlavor="NA" /> <code codeSystem="local" code= "UBAC" displayName="Bacteria" /> <statusCode code="completed" /> <effectiveTime value="[id number]" /> <value unit="NA" xsi:type= "PQ" value="Occasional" /> <interpretationCode codeSystem="local" code= "*" /> <referenceRange> <observationRange> < text /> </observationRange> </referenceRange> </ observation> </component> <component> <observation moodCode= "EVN" classCode="OBS"> <templateId root="16.840.1.576917.10..4.2 " /> <id nullFlavor="NA" /> <code codeSystem="local" code= "UEPI" displayName="Epithelial Cells" /> <statusCode code="completed" / > <effectiveTime value="746906936514" /> <value unit="/HPF" xsi:type="PQ" value="5" /> <referenceRange> < observationRange> <text /> </observationRange> </referenceRange> </observation> </component> <component> <observation moodCode="EVN" classCode="OBS"> <templateId root= "16.840.1.007395.10..4.2" /> <id nullFlavor="NA" /> < code codeSystem="local" code="URBC" displayName="RBC, Urine" /> < statusCode code="completed" /> <effectiveTime value="977235552491" /> <value unit="/HPF" xsi:type="PQ" value=">50" /> < interpretationCode codeSystem="local" code="*" /> <referenceRange> <observationRange> <text>0-2</text> </ observationRange> </referenceRange> </observation> </ component> <component> <observation moodCode="EVN" classCode="OBS"> <templateId root="16.840.1.164671.10.22.4.2" /> <id nullFlavor="NA" /> <code codeSystem="local" code="UWBC" displayName= "WBC, Urine" /> <statusCode code="completed" /> < effectiveTime value="833463493831" /> <value unit="/HPF" xsi:type="PQ" value="2" /> <referenceRange> <observationRange> <text>0-4</text> </observationRange> </referenceRange> </observation> </component> </organizer> </entry> <entry> < organizer moodCode="EVN" classCode="BATTERY"> <templateId root= "216.840.1.000497.10..22.4.1" /> <id nullFlavor="NA" /> <code codeSystem="local" code="UA" displayName="Urinalysis with reflex microscopic" / > <statusCode code="completed" /> <component> <observation moodCode="EVN" classCode="OBS"> <templateId root= "216.840.1.425107.10..22.4.2" /> <id nullFlavor="NA" /> < code codeSystem="local" code="UAPP" displayName="Appearance" /> < statusCode code="completed" /> <effectiveTime value="651347138533" /> <value unit="NA" xsi:type="PQ" value="Cloudy" /> < interpretationCode codeSystem="local" code="*" /> <referenceRange> <observationRange> <text /> </observationRange> </referenceRange> </observation> </component> < component> <observation moodCode="EVN" classCode="OBS"> < templateId root="216.840.1.586958.10..22.4.2" /> <id nullFlavor="NA " /> <code codeSystem="local" code="UBIL" displayName="Bilirubin" /> <statusCode code="completed" /> <effectiveTime value= "" /> <value unit="NA" xsi:type="PQ" value="Negative" /> <referenceRange> <observationRange> <text> Negative</text> </observationRange> </referenceRange> </observation> </component> <component> <observation moodCode ="EVN" classCode="OBS"> <templateId root= "07.12.840.1.844213.03.15.22.4.2" /> <id nullFlavor="NA" /> < code codeSystem="local" code="UBLD" displayName="Blood" /> <statusCode code="completed" /> <effectiveTime value="" /> < value unit="NA" xsi:type="PQ" value="Pos 3+" /> <interpretationCode codeSystem="local" code="*" /> <referenceRange> < observationRange> <text>Negative</text> </ observationRange> </referenceRange> </observation> </ component> <component> <observation moodCode="EVN" classCode="OBS"> <templateId root="07.12.840.1.268092.03.15.22.4.2" /> <id nullFlavor="NA" /> <code codeSystem="local" code="UCOLR" displayName= "Color" /> <statusCode code="completed" /> <effectiveTime value="" /> <value unit="NA" xsi:type="PQ" value="Ute" / > <interpretationCode codeSystem="local" code="*" /> < referenceRange> <observationRange> <text /> < /observationRange> </referenceRange> </observation> </ component> <component> <observation moodCode="EVN" classCode="OBS"> <templateId root="07.12.840.1.635050.03.15.22.4.2" /> <id nullFlavor="NA" /> <code codeSystem="local" code="UGLU" displayName= "Glucose, Urine" /> <statusCode code="completed" /> < effectiveTime value="" /> <value unit="" xsi:type="PQ" value="Negative" /> <referenceRange> <observationRange> <text>Negative</text> </observationRange> </ referenceRange> </observation> </component> <component> <observation moodCode="EVN" classCode="OBS"> <templateId root= "2.16.840.1.208006.03.15.22.4.2" /> <id nullFlavor="NA" /> < code codeSystem="local" code="UKET" displayName="Ketones" /> < statusCode code="completed" /> <effectiveTime value="" /> <value unit="" xsi:type="PQ" value="Trace" /> < interpretationCode codeSystem="local" code="*" /> <referenceRange> <observationRange> <text>Negative</text> </ observationRange> </referenceRange> </observation> </ component> <component> <observation moodCode="EVN" classCode="OBS"> <templateId root="2.16.840.1.390824.03.15.22.4.2" /> <id nullFlavor="NA" /> <code codeSystem="local" code="ULEU" displayName= "Leukocyte Esterase" /> <statusCode code="completed" /> < effectiveTime value="" /> <value unit="NA" xsi:type="PQ" value="Pos 1+" /> <interpretationCode codeSystem="local" code="*" /> <referenceRange> <observationRange> <text> Negative</text> </observationRange> </referenceRange> </observation> </component> <component> <observation moodCode ="EVN" classCode="OBS"> <templateId root= "16.840.1.307940.10..4.2" /> <id nullFlavor="NA" /> < code codeSystem="local" code="UNIT" displayName="Nitrites" /> < statusCode code="completed" /> <effectiveTime value="" /> <value unit="NA" xsi:type="PQ" value="Negative" /> < referenceRange> <observationRange> <text>Negative</text > </observationRange> </referenceRange> </observation > </component> <component> <observation moodCode="EVN" classCode="OBS"> <templateId root="07.12.840.1.970722.03.15.22.4.2" /> <id nullFlavor="NA" /> <code codeSystem="local" code="UPH" displayName="pH" /> <statusCode code="completed" /> < effectiveTime value="" /> <value unit="NA" xsi:type="PQ" value="5.0" /> <referenceRange> <observationRange> <text>5.0-8.0</text> </observationRange> </ referenceRange> </observation> </component> <component> <observation moodCode="EVN" classCode="OBS"> <templateId root= "07.12.840.1.242351.10..4.2" /> <id nullFlavor="NA" /> < code codeSystem="local" code="UPRO" displayName="Protein" /> < statusCode code="completed" /> <effectiveTime value="" /> <value unit="NA" xsi:type="PQ" value="Pos 1+" /> < interpretationCode codeSystem="local" code="*" /> <referenceRange> <observationRange> <text>Negative</text> </ observationRange> </referenceRange> </observation> </ component> <component> <observation moodCode="EVN" classCode="OBS"> <templateId root="16.840.1.031680.10..4.2" /> <id nullFlavor="NA" /> <code codeSystem="local" code="USPG" displayName= "Specific [place]" /> <statusCode code="completed" /> < effectiveTime value="488007706397" /> <value unit="NA" xsi:type="PQ" value="1.035" /> <interpretationCode codeSystem="local" code="*" /> <referenceRange> <observationRange> <text>1.003- 1.030</text> </observationRange> </referenceRange> </ observation> </component> <component> <observation moodCode= "EVN" classCode="OBS"> <templateId root="07.12.840.1.978997.03.15.22.4.2 " /> <id nullFlavor="NA" /> <code codeSystem="local" code= "UTYP" displayName="UA Collection type" /> <statusCode code="completed " /> <effectiveTime value="254162966300" /> <value unit="NA" xsi:type="PQ" value="Clean Catch" /> <referenceRange> < observationRange> <text /> </observationRange> </referenceRange> </observation> </component> <component> <observation moodCode="EVN" classCode="OBS"> <templateId root= "07.12.840.1.460323.10.4.2" /> <id nullFlavor="NA" /> < code codeSystem="local" code="UURO" displayName="Urobilinogen" /> < statusCode code="completed" /> <effectiveTime value="" /> <value unit="mg/dL" xsi:type="PQ" value="2.0" /> < interpretationCode codeSystem="local" code="*" /> <referenceRange> <observationRange> <text><1.0</text> </ observationRange> </referenceRange> </observation> </ component> </organizer> </entry> <entry> <organizer moodCode="EVN" classCode="BATTERY"> <templateId root="216.840.1.686121.10..22.4.1" /> <id nullFlavor="NA" /> <code codeSystem="local" code="UPREG" displayName=" Screen, Urine" /> <statusCode code="completed" /> <component> <observation moodCode="EVN" classCode="OBS"> < templateId root="216.840.1.632402.10..22.4.2" /> <id nullFlavor="NA " /> <code codeSystem="local" code="UPREG" displayName=" Screen, Urine" /> <statusCode code="completed" /> < effectiveTime value="" /> <value unit="NA" xsi:type="PQ" value="Negative" /> <referenceRange> <observationRange> <text /> </observationRange> </referenceRange> </observation> </component> </organizer> </entry> <entry> < organizer moodCode="EVN" classCode="BATTERY"> <templateId root= "216.840.1.136487.10..22.4.1" /> <id nullFlavor="NA" /> <code codeSystem="local" code="UMIC" displayName="Urine Microscopic" /> < statusCode code="completed" /> <component> <observation moodCode= "EVN" classCode="OBS"> <templateId root="07.12.840.1.523117.10.22.4.2 " /> <id nullFlavor="NA" /> <code codeSystem="local" code= "UBAC" displayName="Bacteria" /> <statusCode code="completed" /> <effectiveTime value="" /> <value unit="NA" xsi:type= "PQ" value="Numerous" /> <interpretationCode codeSystem="local" code="* " /> <referenceRange> <observationRange> <text /> </observationRange> </referenceRange> </ observation> </component> <component> <observation moodCode= "EVN" classCode="OBS"> <templateId root="07.12.840.1.831269.10.4.2 " /> <id nullFlavor="NA" /> <code codeSystem="local" code= "UCRY1" displayName="Crystals" /> <statusCode code="completed" /> <effectiveTime value="" /> <value unit="NA" xsi:type= "PQ" value="Ca Ox" /> <referenceRange> <observationRange> <text /> </observationRange> </referenceRange> </observation> </component> <component> <observation moodCode="EVN" classCode="OBS"> <templateId root= "840.1.783896.10.4.2" /> <id nullFlavor="NA" /> < code codeSystem="local" code="UEPI" displayName="Epithelial Cells" /> < statusCode code="completed" /> <effectiveTime value="" /> <value unit="/HPF" xsi:type="PQ" value="10" /> <referenceRange > <observationRange> <text /> </ observationRange> </referenceRange> </observation> </ component> <component> <observation moodCode="EVN" classCode="OBS"> <templateId root="216.840.1.588530.10.4.2" /> <id nullFlavor="NA" /> <code codeSystem="local" code="URBC" displayName= "RBC, Urine" /> <statusCode code="completed" /> < effectiveTime value="" /> <value unit="/HPF" xsi:type="PQ" value=">50" /> <interpretationCode codeSystem="local" code="*" /> <referenceRange> <observationRange> <text>0-2</ text> </observationRange> </referenceRange> </ observation> </component> <component> <observation moodCode= "EVN" classCode="OBS"> <templateId root="16.840.1.160742.03.15.224.2 " /> <id nullFlavor="NA" /> <code codeSystem="local" code= "UMUC" displayName="Urine Mucus" /> <statusCode code="completed" /> <effectiveTime value="" /> <value unit="NA" xsi:type ="PQ" value="Present" /> <referenceRange> <observationRange > <text /> </observationRange> </referenceRange > </observation> </component> <component> <observation moodCode="EVN" classCode="OBS"> <templateId root= "216.840.1.634029.03.15.22.4.2" /> <id nullFlavor="NA" /> < code codeSystem="local" code="UWBC" displayName="WBC, Urine" /> < statusCode code="completed" /> <effectiveTime value="" /> <value unit="/HPF" xsi:type="PQ" value="10" /> < interpretationCode codeSystem="local" code="*" /> <referenceRange> <observationRange> <text>0-4</text> </ observationRange> </referenceRange> </observation> </ component> </organizer> </entry> <entry> <organizer moodCode="EVN" classCode="BATTERY"> <templateId root="07.12.840.1.828564.10...4.1" /> <id nullFlavor="NA" /> <code codeSystem="local" code="EDRBW" displayName="ED RAINBOW COLLECT" /> <statusCode code="completed" /> < component> <observation moodCode="EVN" classCode="OBS"> < templateId root="16.840.1.411589.10...4.2" /> <id nullFlavor="NA " /> <code codeSystem="local" code="PST" displayName="PLASMA SEPARATOR TUBE" /> <statusCode code="completed" /> <effectiveTime value= "" /> <value unit="mL" xsi:type="PQ" value="Done" /> <referenceRange> <observationRange> <text /> </observationRange> </referenceRange> </observation> < /component> <component> <observation moodCode="EVN" classCode="OBS" > <templateId root="07.12.840.1.859118.03.15.22.4.2" /> <id nullFlavor="NA" /> <code codeSystem="local" code="SST" displayName= "SERUM SEPARATOR TUBE" /> <statusCode code="completed" /> < effectiveTime value="" /> <value unit="mL" xsi:type="PQ" value="Done" /> <referenceRange> <observationRange> <text /> </observationRange> </referenceRange> </observation> </component> <component> <observation moodCode= "EVN" classCode="OBS"> <templateId root="07.12.840.1.237558.03.15.22.4.2 " /> <id nullFlavor="NA" /> <code codeSystem="local" code="LON " displayName="CITRATE BLUE" /> <statusCode code="completed" /> <effectiveTime value="" /> <value unit="mL" xsi:type="PQ " value="Done" /> <referenceRange> <observationRange> <text /> </observationRange> </referenceRange> </observation> </component> <component> <observation moodCode="EVN" classCode="OBS"> <templateId root= "840.1.040042.03.15.224.2" /> <id nullFlavor="NA" /> < code codeSystem="local" code="LAV" displayName="Lavendar Tube" /> < statusCode code="completed" /> <effectiveTime value="" /> <value unit="mL" xsi:type="PQ" value="Done" /> <referenceRange > <observationRange> <text /> </ observationRange> </referenceRange> </observation> </ component> </organizer> </entry> <entry> <organizer moodCode="EVN" classCode="BATTERY"> <templateId root="07.12.840.1.617295.03.15.22.4.1" /> <id nullFlavor="NA" /> <code codeSystem="local" code="CBCD" displayName="CBC W/DIFF" /> <statusCode code="completed" /> <component > <observation moodCode="EVN" classCode="OBS"> <templateId root= "07.12.840.1.507242.03.15.22.4.2" /> <id nullFlavor="NA" /> < code codeSystem="local" code="BA#" displayName="BASOPHIL #" /> < statusCode code="completed" /> <effectiveTime value="941669818033" /> <value unit="k/cumm" xsi:type="PQ" value="0.0" /> < referenceRange> <observationRange> <text>0.0-0.2</text> </observationRange> </referenceRange> </observation > </component> <component> <observation moodCode="EVN" classCode="OBS"> <templateId root="2.16.840.1.840582.03.15.224.2" /> <id nullFlavor="NA" /> <code codeSystem="local" code="BA% " displayName="BASOPHIL %" /> <statusCode code="completed" /> <effectiveTime value="805211652876" /> <value unit="%" xsi: type="PQ" value="1" /> <referenceRange> <observationRange> <text>0-1</text> </observationRange> </ referenceRange> </observation> </component> <component> <observation moodCode="EVN" classCode="OBS"> <templateId root= "2.16.840.1.570694.03.15.22.4.2" /> <id nullFlavor="NA" /> < code codeSystem="local" code="CBCCOM" displayName="COMMENT" /> < statusCode code="completed" /> <effectiveTime value="564363016970" /> <value unit="" xsi:type="PQ" value="" /> <referenceRange> <observationRange> <text /> </ observationRange> </referenceRange> </observation> </ component> <component> <observation moodCode="EVN" classCode="OBS"> <templateId root="07.12.840.1.686223.10..22.4.2" /> <id nullFlavor="NA" /> <code codeSystem="local" code="EO#" displayName= "EOSINOPHIL #" /> <statusCode code="completed" /> < effectiveTime value="" /> <value unit="k/cumm" xsi:type="PQ " value="0.1" /> <referenceRange> <observationRange> <text>0.1-0.5</text> </observationRange> </ referenceRange> </observation> </component> <component> <observation moodCode="EVN" classCode="OBS"> <templateId root= "07.12.840.1.664412.10.4.2" /> <id nullFlavor="NA" /> < code codeSystem="local" code="EO%" displayName="EOSINOPHIL %" /> <statusCode code="completed" /> <effectiveTime value="" /> <value unit="%" xsi:type="PQ" value="2" /> < referenceRange> <observationRange> <text>2-4</text> </observationRange> </referenceRange> </observation> </component> <component> <observation moodCode="EVN" classCode= "OBS"> <templateId root="07.12.840.1.266884.10.2022.4.2" /> < id nullFlavor="NA" /> <code codeSystem="local" code="GR#" displayName= "GRANULOCYTE #" /> <statusCode code="completed" /> < effectiveTime value="200569606452" /> <value unit="k/cumm" xsi:type="PQ " value="3.8" /> <referenceRange> <observationRange> <text>2.0-9.0</text> </observationRange> </ referenceRange> </observation> </component> <component> <observation moodCode="EVN" classCode="OBS"> <templateId root= "16.840.1.080730.10.2022.4.2" /> <id nullFlavor="NA" /> < code codeSystem="local" code="GR%" displayName="GRANULOCYTE %" /> <statusCode code="completed" /> <effectiveTime value="656816751854 " /> <value unit="%" xsi:type="PQ" value="61" /> < referenceRange> <observationRange> <text>50-75</text> </observationRange> </referenceRange> </observation> </component> <component> <observation moodCode="EVN" classCode= "OBS"> <templateId root="07.12.840.1.245702.03.15.22.4.2" /> < id nullFlavor="NA" /> <code codeSystem="local" code="LY#" displayName= "LYMPHOCYTE #" /> <statusCode code="completed" /> < effectiveTime value="467353561599" /> <value unit="k/cumm" xsi:type="PQ " value="1.8" /> <referenceRange> <observationRange> <text>1.0-4.0</text> </observationRange> </ referenceRange> </observation> </component> <component> <observation moodCode="EVN" classCode="OBS"> <templateId root= "07.12.840.1.721586..2022.4.2" /> <id nullFlavor="NA" /> < code codeSystem="local" code="LY%" displayName="LYMPHOCYTE %" /> <statusCode code="completed" /> <effectiveTime value="685367146432" /> <value unit="%" xsi:type="PQ" value="29" /> < referenceRange> <observationRange> <text>20-30</text> </observationRange> </referenceRange> </observation> </component> <component> <observation moodCode="EVN" classCode= "OBS"> <templateId root="216.840.1.006172.10.22.4.2" /> < id nullFlavor="NA" /> <code codeSystem="local" code="MCH" displayName= "MEAN CELL HGB" /> <statusCode code="completed" /> < effectiveTime value="634753203768" /> <value unit="pg" xsi:type="PQ" value="17.3" /> <interpretationCode codeSystem="local" code="*" /> <referenceRange> <observationRange> <text>27.0- 33.0</text> </observationRange> </referenceRange> </ observation> </component> <component> <observation moodCode= "EVN" classCode="OBS"> <templateId root="216.840.1.315347.10.2022.4.2 " /> <id nullFlavor="NA" /> <code codeSystem="local" code= "MCHC" displayName="MEAN CELL HGB CONCENTRATION" /> <statusCode code= "completed" /> <effectiveTime value="859652568789" /> <value unit="g/dL" xsi:type="PQ" value="25.4" /> <interpretationCode codeSystem="local" code="*" /> <referenceRange> < observationRange> <text>32.0-37.0</text> </ observationRange> </referenceRange> </observation> </ component> <component> <observation moodCode="EVN" classCode="OBS"> <templateId root="07.12.840.1.693098.10.20.22.4.2" /> <id nullFlavor="NA" /> <code codeSystem="local" code="MCV" displayName= "MEAN CELL VOLUME" /> <statusCode code="completed" /> < effectiveTime value="" /> <value unit="fl" xsi:type="PQ" value="68.2" /> <interpretationCode codeSystem="local" code="*" /> <referenceRange> <observationRange> <text>80.0- 100.0</text> </observationRange> </referenceRange> </ observation> </component> <component> <observation moodCode= "EVN" classCode="OBS"> <templateId root="840.1.279768.03.15.22.4.2 " /> <id nullFlavor="NA" /> <code codeSystem="local" code="MO# " displayName="MONOCYTE #" /> <statusCode code="completed" /> <effectiveTime value="" /> <value unit="k/cumm" xsi:type= "PQ" value="0.4" /> <referenceRange> <observationRange> <text>0.1-1.0</text> </observationRange> </ referenceRange> </observation> </component> <component> <observation moodCode="EVN" classCode="OBS"> <templateId root= "840.1.748744.10.20.22.4.2" /> <id nullFlavor="NA" /> < code codeSystem="local" code="MO%" displayName="MONOCYTE %" /> <statusCode code="completed" /> <effectiveTime value="" /> <value unit="%" xsi:type="PQ" value="7" /> < interpretationCode codeSystem="local" code="*" /> <referenceRange> <observationRange> <text>4-6</text> </ observationRange> </referenceRange> </observation> </ component> <component> <observation moodCode="EVN" classCode="OBS"> <templateId root="07.12.840.1.867361.10..22.4.2" /> <id nullFlavor="NA" /> <code codeSystem="local" code="OVAL" displayName= "OVALOCYTES" /> <statusCode code="completed" /> < effectiveTime value="305470395831" /> <value unit="" xsi:type="PQ" value="NOTED" /> <referenceRange> <observationRange> <text /> </observationRange> </referenceRange> </observation> </component> <component> <observation moodCode ="EVN" classCode="OBS"> <templateId root= "840.1.670042.10...4.2" /> <id nullFlavor="NA" /> < code codeSystem="local" code="RBC" displayName="RED BLOOD CELL" /> < statusCode code="completed" /> <effectiveTime value="831193343551" /> <value unit="m/cumm" xsi:type="PQ" value="3.81" /> < interpretationCode codeSystem="local" code="*" /> <referenceRange> <observationRange> <text>4.00-6.00</text> </ observationRange> </referenceRange> </observation> </ component> <component> <observation moodCode="EVN" classCode="OBS"> <templateId root="07.12.840.1.912283.10...4.2" /> <id nullFlavor="NA" /> <code codeSystem="local" code="RDW" displayName=" RED CELL DISTRIBUTION WIDTH" /> <statusCode code="completed" /> <effectiveTime value="" /> <value unit="%" xsi:type= "PQ" value="18.7" /> <interpretationCode codeSystem="local" code="*" / > <referenceRange> <observationRange> <text> 11.0-15.6</text> </observationRange> </referenceRange> </observation> </component> <component> <observation moodCode="EVN" classCode="OBS"> <templateId root= "216.840.1.263073.10..22.4.2" /> <id nullFlavor="NA" /> < code codeSystem="local" code="TEAR" displayName="TEAR DROP CELLS" /> < statusCode code="completed" /> <effectiveTime value="" /> <value unit="" xsi:type="PQ" value="NOTED" /> <referenceRange > <observationRange> <text /> </ observationRange> </referenceRange> </observation> </ component> <component> <observation moodCode="EVN" classCode="OBS"> <templateId root="2.16.840.1.222745.10.20.22.4.2" /> <id nullFlavor="NA" /> <code codeSystem="local" code="WBC" displayName= "WHITE BLOOD CELL" /> <statusCode code="completed" /> < effectiveTime value="" /> <value unit="k/cumm" xsi:type="PQ " value="6.2" /> <referenceRange> <observationRange> <text>5.0-10.0</text> </observationRange> </ referenceRange> </observation> </component> <component> <observation moodCode="EVN" classCode="OBS"> <templateId root= "07.12.840.1.470627.10..22.4.2" /> <id nullFlavor="NA" /> < code codeSystem="local" code="HGBT" displayName="HEMOGLOBIN" /> < statusCode code="completed" /> <effectiveTime value="[id number]" /> <value unit="gm/dL" xsi:type="PQ" value="6.6" /> < interpretationCode codeSystem="local" code="*" /> <referenceRange> <observationRange> <text>12.0-16.0</text> </ observationRange> </referenceRange> </observation> </ component> <component> <observation moodCode="EVN" classCode="OBS"> <templateId root="07.12.840.1.313425...4.2" /> <id nullFlavor="NA" /> <code codeSystem="local" code="HCTT" displayName= "HEMATOCRIT" /> <statusCode code="completed" /> < effectiveTime value="[id number]" /> <value unit="%" xsi:type="PQ " value="26.0" /> <interpretationCode codeSystem="local" code="*" /> <referenceRange> <observationRange> <text>37.0- 47.0</text> </observationRange> </referenceRange> </ observation> </component> <component> <observation moodCode= "EVN" classCode="OBS"> <templateId root="07.12.840.1.320986.10.22.4.2 " /> <id nullFlavor="NA" /> <code codeSystem="local" code="PLT " displayName="PLATELET COUNT" /> <statusCode code="completed" /> <effectiveTime value="[id number]" /> <value unit="k/cumm" xsi: type="PQ" value="410" /> <interpretationCode codeSystem="local" code="* " /> <referenceRange> <observationRange> <text> 150-400</text> </observationRange> </referenceRange> </observation> </component> </organizer> </entry> <entry> < organizer moodCode="EVN" classCode="BATTERY"> <templateId root= "16.840.1.030485.10.22.4.1" /> <id nullFlavor="NA" /> <code codeSystem="local" code="UANRC" displayName="URINALYSIS, NO REFLEX CULTURE" /> <statusCode code="completed" /> <component> <observation moodCode="EVN" classCode="OBS"> <templateId root= "216.840.1.700122.10...4.2" /> <id nullFlavor="NA" /> < code codeSystem="local" code="LEUESU" displayName="UA LEUKOCYTE ESTERASE DIPSTICK" /> <statusCode code="completed" /> <effectiveTime value="" /> <value unit="" xsi:type="PQ" value="TRACE" /> <referenceRange> <observationRange> <text> NEGATIVE</text> </observationRange> </referenceRange> </observation> </component> <component> <observation moodCode ="EVN" classCode="OBS"> <templateId root= "07.12.840.1.577590.10..22.4.2" /> <id nullFlavor="NA" /> < code codeSystem="local" code="NITRIU" displayName="UA NITRITE DIPSTICK" /> <statusCode code="completed" /> <effectiveTime value=" " /> <value unit="" xsi:type="PQ" value="NEGATIVE" /> < referenceRange> <observationRange> <text>NEGATIVE</text > </observationRange> </referenceRange> </observation > </component> <component> <observation moodCode="EVN" classCode="OBS"> <templateId root="16.840.1.814858.10.4.2" /> <id nullFlavor="NA" /> <code codeSystem="local" code="PROTEIU " displayName="UA PROTEIN DIPSTICK" /> <statusCode code="completed" /> <effectiveTime value="" /> <value unit="" xsi: type="PQ" value="NEGATIVE" /> <referenceRange> < observationRange> <text>NEGATIVE</text> </ observationRange> </referenceRange> </observation> </ component> <component> <observation moodCode="EVN" classCode="OBS"> <templateId root="07.12.840.1.701360.03.15.22.4.2" /> <id nullFlavor="NA" /> <code codeSystem="local" code="DGLUU" displayName= "UA GLUCOSE DIPSTICK" /> <statusCode code="completed" /> < effectiveTime value="" /> <value unit="" xsi:type="PQ" value="NEGATIVE" /> <referenceRange> <observationRange> <text>NEGATIVE</text> </observationRange> </ referenceRange> </observation> </component> <component> <observation moodCode="EVN" classCode="OBS"> <templateId root= "07.12.840.1.924343.03.15.22.4.2" /> <id nullFlavor="NA" /> < code codeSystem="local" code="KETONU" displayName="UA KETONE DIPSTICK" /> <statusCode code="completed" /> <effectiveTime value=" " /> <value unit="" xsi:type="PQ" value="TRACE" /> < referenceRange> <observationRange> <text>NEGATIVE</text > </observationRange> </referenceRange> </observation > </component> <component> <observation moodCode="EVN" classCode="OBS"> <templateId root="16.840.1.761775.10..4.2" /> <id nullFlavor="NA" /> <code codeSystem="local" code="UROBILU " displayName="UA UROBILINOGEN DIPSTICK" /> <statusCode code="completed " /> <effectiveTime value="507610940797" /> <value unit="" xsi :type="PQ" value="NORMAL" /> <referenceRange> < observationRange> <text>NORMAL</text> </observationRange > </referenceRange> </observation> </component> < component> <observation moodCode="EVN" classCode="OBS"> < templateId root="07.12.840.1.946874.03.15.22.4.2" /> <id nullFlavor="NA " /> <code codeSystem="local" code="BILU" displayName="UA BILIRUBIN DIPSTICK" /> <statusCode code="completed" /> <effectiveTime value="370436647547" /> <value unit="" xsi:type="PQ" value="NEGATIVE" / > <referenceRange> <observationRange> <text> NEGATIVE</text> </observationRange> </referenceRange> </observation> </component> <component> <observation moodCode ="EVN" classCode="OBS"> <templateId root= "07.12.840.1.287572.1022.4.2" /> <id nullFlavor="NA" /> < code codeSystem="local" code="LON" displayName="UA BLOOD DIPSTICK" /> < statusCode code="completed" /> <effectiveTime value="" /> <value unit="" xsi:type="PQ" value="NEGATIVE" /> < referenceRange> <observationRange> <text>NEGATIVE</text > </observationRange> </referenceRange> </observation > </component> <component> <observation moodCode="EVN" classCode="OBS"> <templateId root="2.16.840.1.860364.10.4.2" /> <id nullFlavor="NA" /> <code codeSystem="local" code="SPGRU" displayName="UA SPECIFIC GRAVITY" /> <statusCode code="completed" /> <effectiveTime value="" /> <value unit="" xsi:type= "PQ" value="1.021" /> <referenceRange> <observationRange> <text>1.015-1.025</text> </observationRange> </ referenceRange> </observation> </component> <component> <observation moodCode="EVN" classCode="OBS"> <templateId root= "216.840.1.559883.10..4.2" /> <id nullFlavor="NA" /> < code codeSystem="local" code="WILLOW" displayName="UR PH" /> <statusCode code="completed" /> <effectiveTime value="" /> < value unit="" xsi:type="PQ" value="7.0" /> <referenceRange> <observationRange> <text>5.0-7.0</text> </ observationRange> </referenceRange> </observation> </ component> </organizer> </entry> <entry> <organizer moodCode="EVN" classCode="BATTERY"> <templateId root="2.16.840.1.503382..4.1" /> <id nullFlavor="NA" /> <code codeSystem="local" code="UAMICRO" displayName="UA MICROSCOPIC" /> <statusCode code="completed" /> < component> <observation moodCode="EVN" classCode="OBS"> < templateId root="16.840.1.459069.10.4.2" /> <id nullFlavor="NA " /> <code codeSystem="local" code="BACU" displayName="UA BACTERIA" /> <statusCode code="completed" /> <effectiveTime value= "" /> <value unit="" xsi:type="PQ" value="1+" /> < referenceRange> <observationRange> <text>NEGATIVE</text > </observationRange> </referenceRange> </observation > </component> <component> <observation moodCode="EVN" classCode="OBS"> <templateId root="07.12.840.1.194973.03.15.224.2" /> <id nullFlavor="NA" /> <code codeSystem="local" code="EPIU" displayName="UA EPITHELIAL CELLS" /> <statusCode code="completed" /> <effectiveTime value="" /> <value unit="epi/hpf" xsi:type="PQ" value="2+" /> <referenceRange> < observationRange> <text>0 - 1+</text> </observationRange > </referenceRange> </observation> </component> < component> <observation moodCode="EVN" classCode="OBS"> < templateId root="07.12.840.1.608902.03.15.224.2" /> <id nullFlavor="NA " /> <code codeSystem="local" code="MUCUSU" displayName="UA MUCUS" /> <statusCode code="completed" /> <effectiveTime value= "" /> <value unit="" xsi:type="PQ" value="1+" /> < referenceRange> <observationRange> <text>NEG TO 1+</text > </observationRange> </referenceRange> </observation > </component> <component> <observation moodCode="EVN" classCode="OBS"> <templateId root="2.16.840.1.952990.10..22.4.2" /> <id nullFlavor="NA" /> <code codeSystem="local" code="UAVOL" displayName="UA VOLUME FOR EXAM" /> <statusCode code="completed" /> <effectiveTime value="" /> <value unit="mL" xsi:type ="PQ" value="12.0" /> <referenceRange> <observationRange> <text>(12mL STD)</text> </observationRange> </ referenceRange> </observation> </component> <component> <observation moodCode="EVN" classCode="OBS"> <templateId root= "216.840.1.973674.10...4.2" /> <id nullFlavor="NA" /> < code codeSystem="local" code="WBCU" displayName="UA WBC" /> < statusCode code="completed" /> <effectiveTime value="" /> <value unit="wbc/hpf" xsi:type="PQ" value="0-1" /> < referenceRange> <observationRange> <text>0 - 5</text> </observationRange> </referenceRange> </observation> </component> </organizer> </entry> <entry> <organizer moodCode="EVN " classCode="BATTERY"> <templateId root="2.16.840.1.355584.10..22.4.1" / > <id nullFlavor="NA" /> <code codeSystem="local" code="PREGU" displayName="UR TEST" /> <statusCode code="completed" /> < component> <observation moodCode="EVN" classCode="OBS"> < templateId root="216.840.1.213443.10..22.4.2" /> <id nullFlavor="NA " /> <code codeSystem="local" code="PREGU" displayName="UR TEST" /> <statusCode code="completed" /> <effectiveTime value= "324585082861" /> <value unit="" xsi:type="PQ" value="NEGATIVE" /> <referenceRange> <observationRange> <text>NEGATIVE </text> </observationRange> </referenceRange> </ observation> </component> </organizer> </entry> <entry> <organizer moodCode="EVN" classCode="BATTERY"> <templateId root= "216.840.1.926298.10..22.4.1" /> <id nullFlavor="NA" /> <code codeSystem="local" code="PT" displayName="PROTHROMBIN TIME WITH INR" /> < statusCode code="completed" /> <component> <observation moodCode= "EVN" classCode="OBS"> <templateId root="216.840.1.296805.10..22.4.2 " /> <id nullFlavor="NA" /> <code codeSystem="local" code= "INRX" displayName="INTERNATIONAL NORMAL RATIO" /> <statusCode code= "completed" /> <effectiveTime value="591638017512" /> <value unit="" xsi:type="PQ" value="1.0" /> <referenceRange> < observationRange> <text>0.9-1.1</text> </ observationRange> </referenceRange> </observation> </ component> <component> <observation moodCode="EVN" classCode="OBS"> <templateId root="16.840.1.399708.10..22.4.2" /> <id nullFlavor="NA" /> <code codeSystem="local" code="PTPAT" displayName= "PROTHROMBIN TIME" /> <statusCode code="completed" /> < effectiveTime value="115877425796" /> <value unit="sec" xsi:type="PQ" value="11.2" /> <referenceRange> <observationRange> <text>10.0-12.8</text> </observationRange> </ referenceRange> </observation> </component> </organizer> </entry > <entry> <organizer moodCode="EVN" classCode="BATTERY"> <templateId root="216.840.1.864589.10..22.4.1" /> <id nullFlavor="NA" /> <code codeSystem="local" code="METABC" displayName="METABOLIC PANEL, COMPREHN" /> <statusCode code="completed" /> <component> <observation moodCode= "EVN" classCode="OBS"> <templateId root="216.840.1.110341.10..22.4.2 " /> <id nullFlavor="NA" /> <code codeSystem="local" code="K" displayName="POTASSIUM" /> <statusCode code="completed" /> < effectiveTime value="837815322685" /> <value unit="mmol/L" xsi:type="PQ " value="3.9" /> <referenceRange> <observationRange> <text>3.5-5.3</text> </observationRange> </ referenceRange> </observation> </component> <component> <observation moodCode="EVN" classCode="OBS"> <templateId root= "16.840.1.282571.22.4.2" /> <id nullFlavor="NA" /> < code codeSystem="local" code="eGFR" displayName="EST GFR (MDRD)" /> < statusCode code="completed" /> <effectiveTime value="" /> <value unit="mL/min" xsi:type="PQ" value="> 60" /> < referenceRange> <observationRange> <text>> 59</text> </observationRange> </referenceRange> </observation > </component> <component> <observation moodCode="EVN" classCode="OBS"> <templateId root="216.840.1.083484.03.15.22.4.2" /> <id nullFlavor="NA" /> <code codeSystem="local" code="GAP" displayName="ANION GAP" /> <statusCode code="completed" /> < effectiveTime value="" /> <value unit="mmol/L" xsi:type="PQ " value="8" /> <referenceRange> <observationRange> <text>5-15</text> </observationRange> </referenceRange > </observation> </component> <component> <observation moodCode="EVN" classCode="OBS"> <templateId root= "216.840.1.074435...4.2" /> <id nullFlavor="NA" /> < code codeSystem="local" code="GLU" displayName="GLUCOSE" /> < statusCode code="completed" /> <effectiveTime value="" /> <value unit="mg/dL" xsi:type="PQ" value="99" /> < referenceRange> <observationRange> <text>70-99</text> </observationRange> </referenceRange> </observation> </component> <component> <observation moodCode="EVN" classCode= "OBS"> <templateId root="216.840.1.549520.10..22.4.2" /> < id nullFlavor="NA" /> <code codeSystem="local" code="CA" displayName= "CALCIUM" /> <statusCode code="completed" /> <effectiveTime value="" /> <value unit="mg/dL" xsi:type="PQ" value="8.5" / > <referenceRange> <observationRange> <text>8.5 -10.1</text> </observationRange> </referenceRange> </ observation> </component> <component> <observation moodCode= "EVN" classCode="OBS"> <templateId root="216.840.1.397249...22.4.2 " /> <id nullFlavor="NA" /> <code codeSystem="local" code="BUN " displayName="BLOOD UREA NITROGEN" /> <statusCode code="completed" /> <effectiveTime value="" /> <value unit="mg/dL" xsi:type="PQ" value="7" /> <referenceRange> < observationRange> <text>7-20</text> </observationRange> </referenceRange> </observation> </component> < component> <observation moodCode="EVN" classCode="OBS"> < templateId root="16.840.1.413454.10.20.22.4.2" /> <id nullFlavor="NA " /> <code codeSystem="local" code="CREAT" displayName="CREATININE" /> <statusCode code="completed" /> <effectiveTime value= "" /> <value unit="mg/dL" xsi:type="PQ" value="0.7" /> <referenceRange> <observationRange> <text>0.6-1.0< /text> </observationRange> </referenceRange> </ observation> </component> <component> <observation moodCode= "EVN" classCode="OBS"> <templateId root="216.840.1.086612.10.22.4.2 " /> <id nullFlavor="NA" /> <code codeSystem="local" code="NA " displayName="SODIUM" /> <statusCode code="completed" /> < effectiveTime value="" /> <value unit="mmol/L" xsi:type="PQ " value="144" /> <referenceRange> <observationRange> <text>135-148</text> </observationRange> </ referenceRange> </observation> </component> <component> <observation moodCode="EVN" classCode="OBS"> <templateId root= "216.840.1.581123.03.15.22.4.2" /> <id nullFlavor="NA" /> < code codeSystem="local" code="CL" displayName="CHLORIDE" /> < statusCode code="completed" /> <effectiveTime value="" /> <value unit="mmol/L" xsi:type="PQ" value="110" /> < referenceRange> <observationRange> <text>98-110</text> </observationRange> </referenceRange> </observation> </component> <component> <observation moodCode="EVN" classCode ="OBS"> <templateId root="216.840.1.438471.10.22.4.2" /> < id nullFlavor="NA" /> <code codeSystem="local" code="AST" displayName= "AST/SGOT" /> <statusCode code="completed" /> <effectiveTime value="" /> <value unit="Units/L" xsi:type="PQ" value="17" /> <referenceRange> <observationRange> <text>10 -37</text> </observationRange> </referenceRange> </ observation> </component> <component> <observation moodCode= "EVN" classCode="OBS"> <templateId root="07.12.840.1.207775.10..4.2 " /> <id nullFlavor="NA" /> <code codeSystem="local" code="ALT " displayName="ALT/SGPT" /> <statusCode code="completed" /> < effectiveTime value="" /> <value unit="Units/L" xsi:type= "PQ" value="21" /> <referenceRange> <observationRange> <text>< 66</text> </observationRange> </ referenceRange> </observation> </component> <component> <observation moodCode="EVN" classCode="OBS"> <templateId root= "07.12.840.1.666736.10.4.2" /> <id nullFlavor="NA" /> < code codeSystem="local" code="CO2" displayName="CARBON DIOXIDE" /> < statusCode code="completed" /> <effectiveTime value="177168147776" /> <value unit="mmol/L" xsi:type="PQ" value="26" /> < referenceRange> <observationRange> <text>21-32</text> </observationRange> </referenceRange> </observation> </component> <component> <observation moodCode="EVN" classCode= "OBS"> <templateId root="07.12.840.1.753362.10.22.4.2" /> < id nullFlavor="NA" /> <code codeSystem="local" code="TP" displayName= "TOTAL PROTEIN" /> <statusCode code="completed" /> < effectiveTime value="" /> <value unit="gm/dL" xsi:type="PQ " value="7.2" /> <referenceRange> <observationRange> <text>6.4-8.2</text> </observationRange> </ referenceRange> </observation> </component> <component> <observation moodCode="EVN" classCode="OBS"> <templateId root= "216.840.1.956210.22.4.2" /> <id nullFlavor="NA" /> < code codeSystem="local" code="ALB" displayName="ALBUMIN" /> < statusCode code="completed" /> <effectiveTime value="" /> <value unit="gm/dL" xsi:type="PQ" value="3.6" /> < referenceRange> <observationRange> <text>3.4-5.0</text> </observationRange> </referenceRange> </observation > </component> <component> <observation moodCode="EVN" classCode="OBS"> <templateId root="216.840.1.505701.10.4.2" /> <id nullFlavor="NA" /> <code codeSystem="local" code="BILTOT" displayName="BILI TOTAL" /> <statusCode code="completed" /> < effectiveTime value="" /> <value unit="mg/dL" xsi:type="PQ " value="0.1" /> <referenceRange> <observationRange> <text>0.0-1.0</text> </observationRange> </ referenceRange> </observation> </component> <component> <observation moodCode="EVN" classCode="OBS"> <templateId root= "2.16.840.1.942402.10.2022.4.2" /> <id nullFlavor="NA" /> < code codeSystem="local" code="ALKP" displayName="ALKALINE PHOSPHATASE TOTAL" /> <statusCode code="completed" /> <effectiveTime value= "620462445605" /> <value unit="IU/L" xsi:type="PQ" value="72" /> <referenceRange> <observationRange> <text>45-117</ text> </observationRange> </referenceRange> </ observation> </component> </organizer> </entry> <entry> <organizer moodCode="EVN" classCode="BATTERY"> <templateId root= "216.840.1.482919.10..22.4.1" /> <id nullFlavor="NA" /> <code codeSystem="local" code="LIP" displayName="LIPASE" /> <statusCode code= "completed" /> <component> <observation moodCode="EVN" classCode= "OBS"> <templateId root="216.840.1.714593.10..22.4.2" /> < id nullFlavor="NA" /> <code codeSystem="local" code="LIP" displayName= "LIPASE" /> <statusCode code="completed" /> <effectiveTime value="550294132302" /> <value unit="Units/L" xsi:type="PQ" value="165 " /> <referenceRange> <observationRange> <text> 73-393</text> </observationRange> </referenceRange> < /observation> </component> </organizer> </entry> <entry> < organizer moodCode="EVN" classCode="BATTERY"> <templateId root= "216.840.1.154457.10..22.4.1" /> <id nullFlavor="NA" /> <code codeSystem="local" code="RETIC" displayName="RETICULOCYTE COUNT" /> < statusCode code="completed" /> <component> <observation moodCode= "EVN" classCode="OBS"> <templateId root="16.840.1.217336...4.2 " /> <id nullFlavor="NA" /> <code codeSystem="local" code="IRF " displayName="IMMATURE FRACTION" /> <statusCode code="completed" /> <effectiveTime value="152151841018" /> <value unit="%" xsi: type="PQ" value="10.1" /> <referenceRange> <observationRange > <text>5-22</text> </observationRange> </ referenceRange> </observation> </component> <component> <observation moodCode="EVN" classCode="OBS"> <templateId root= "16.840.1.199682.03.15.22.4.2" /> <id nullFlavor="NA" /> < code codeSystem="local" code="RBC" displayName="RED BLOOD CELL" /> < statusCode code="completed" /> <effectiveTime value="846406667425" /> <value unit="m/cumm" xsi:type="PQ" value="3.91" /> < interpretationCode codeSystem="local" code="*" /> <referenceRange> <observationRange> <text>4.00-6.00</text> </ observationRange> </referenceRange> </observation> </ component> <component> <observation moodCode="EVN" classCode="OBS"> <templateId root="07.12.840.1.514548.03.15.22.4.2" /> <id nullFlavor="NA" /> <code codeSystem="local" code="RETABS" displayName= "ABSOLUTE RETIC COUNT" /> <statusCode code="completed" /> < effectiveTime value="876871591001" /> <value unit="k/cumm" xsi:type="PQ " value="39.5" /> <referenceRange> <observationRange> <text>20.0-180.0</text> </observationRange> </ referenceRange> </observation> </component> <component> <observation moodCode="EVN" classCode="OBS"> <templateId root= "216.840.1.216215.03.15.22.4.2" /> <id nullFlavor="NA" /> < code codeSystem="local" code="RETIC%" displayName="PERCENT RETIC" /> <statusCode code="completed" /> <effectiveTime value="431103783825" /> <value unit="%" xsi:type="PQ" value="1.0" /> < referenceRange> <observationRange> <text>0.5-3.0</text> </observationRange> </referenceRange> </observation > </component> </organizer> </entry> <entry> <organizer moodCode= "EVN" classCode="BATTERY"> <templateId root="07.12.840.1.589976.10.4.1 " /> <id nullFlavor="NA" /> <code codeSystem="local" code="FETIBC" displayName="IRON W/ BINDING CAPACITY" /> <statusCode code="completed" /> <component> <observation moodCode="EVN" classCode="OBS"> < templateId root="07.12.840.1.355334.1022.4.2" /> <id nullFlavor="NA " /> <code codeSystem="local" code="FESAT" displayName="IRON SATURATION " /> <statusCode code="completed" /> <effectiveTime value= "924446618313" /> <value unit="%SAT" xsi:type="PQ" value="4" /> <interpretationCode codeSystem="local" code="*" /> < referenceRange> <observationRange> <text>11-46</text> </observationRange> </referenceRange> </observation> </component> <component> <observation moodCode="EVN" classCode= "OBS"> <templateId root="216.840.1.633116.10..22.4.2" /> < id nullFlavor="NA" /> <code codeSystem="local" code="TIBC" displayName= "IRON BINDING CAPACITY, TOTAL" /> <statusCode code="completed" /> <effectiveTime value="" /> <value unit="mcg/dL" xsi: type="PQ" value="445" /> <referenceRange> <observationRange > <text>250-450</text> </observationRange> </ referenceRange> </observation> </component> <component> <observation moodCode="EVN" classCode="OBS"> <templateId root= "16.840.1.485021.10...4.2" /> <id nullFlavor="NA" /> < code codeSystem="local" code="IRON" displayName="IRON" /> <statusCode code="completed" /> <effectiveTime value="651464094451" /> < value unit="mcg/dL" xsi:type="PQ" value="17" /> <interpretationCode codeSystem="local" code="*" /> <referenceRange> < observationRange> <text>35-150</text> </observationRange > </referenceRange> </observation> </component> </ organizer> </entry> <entry> <organizer moodCode="EVN" classCode="BATTERY"> <templateId root="216.840.1.123185.10..22.4.1" /> <id nullFlavor= "NA" /> <code codeSystem="local" code="LEANNE" displayName="FERRITIN" /> <statusCode code="completed" /> <component> <observation moodCode= "EVN" classCode="OBS"> <templateId root="07.12.840.1.176203.10..22.4.2 " /> <id nullFlavor="NA" /> <code codeSystem="local" code="LEANNE " displayName="FERRITIN" /> <statusCode code="completed" /> < effectiveTime value="031454232658" /> <value unit="ng/mL" xsi:type="PQ " value="2" /> <interpretationCode codeSystem="local" code="*" /> <referenceRange> <observationRange> <text>8-252</ text> </observationRange> </referenceRange> </ observation> </component> </organizer> </entry> <entry> <organizer moodCode="EVN" classCode="BATTERY"> <templateId root= "840.1.333875.10...4.1" /> <id nullFlavor="NA" /> <code codeSystem="local" code="CBCD" displayName="CBC W/DIFF" /> <statusCode code ="completed" /> <component> <observation moodCode="EVN" classCode= "OBS"> <templateId root="07.12.840.1.428705.10..22.4.2" /> < id nullFlavor="NA" /> <code codeSystem="local" code="CBCCOM" displayName="COMMENT" /> <statusCode code="completed" /> < effectiveTime value="976994438285" /> <value unit="" xsi:type="PQ" value="REVIEWED" /> <referenceRange> <observationRange> <text /> </observationRange> </referenceRange> </observation> </component> <component> <observation moodCode="EVN" classCode="OBS"> <templateId root= "16.840.1.799862.03.15.22.4.2" /> <id nullFlavor="NA" /> < code codeSystem="local" code="EO#" displayName="EOSINOPHIL #" /> < statusCode code="completed" /> <effectiveTime value="290497548173" /> <value unit="k/cumm" xsi:type="PQ" value="0.2" /> < referenceRange> <observationRange> <text>0.1-0.5</text> </observationRange> </referenceRange> </observation > </component> <component> <observation moodCode="EVN" classCode="OBS"> <templateId root="07.12.840.1.544690.03.15.22.4.2" /> <id nullFlavor="NA" /> <code codeSystem="local" code="EO% " displayName="EOSINOPHIL %" /> <statusCode code="completed" /> <effectiveTime value="085203991798" /> <value unit="%" xsi: type="PQ" value="2" /> <referenceRange> <observationRange> <text>2-4</text> </observationRange> </ referenceRange> </observation> </component> <component> <observation moodCode="EVN" classCode="OBS"> <templateId root= "07.12.840.1.586141.10..4.2" /> <id nullFlavor="NA" /> < code codeSystem="local" code="GR#" displayName="GRANULOCYTE #" /> < statusCode code="completed" /> <effectiveTime value="852156712342" /> <value unit="k/cumm" xsi:type="PQ" value="3.0" /> < referenceRange> <observationRange> <text>2.0-9.0</text> </observationRange> </referenceRange> </observation > </component> <component> <observation moodCode="EVN" classCode="OBS"> <templateId root="16.840.1.962497.10.20.22.4.2" /> <id nullFlavor="NA" /> <code codeSystem="local" code="GR% " displayName="GRANULOCYTE %" /> <statusCode code="completed" /> <effectiveTime value="190690181147" /> <value unit="%" xsi: type="PQ" value="45" /> <interpretationCode codeSystem="local" code="* " /> <referenceRange> <observationRange> <text> 50-75</text> </observationRange> </referenceRange> </ observation> </component> <component> <observation moodCode= "EVN" classCode="OBS"> <templateId root="07.12.840.1.751198.03.15.22.4.2 " /> <id nullFlavor="NA" /> <code codeSystem="local" code="LY# " displayName="LYMPHOCYTE #" /> <statusCode code="completed" /> <effectiveTime value="621967899599" /> <value unit="k/cumm" xsi:type ="PQ" value="3.0" /> <referenceRange> <observationRange> <text>1.0-4.0</text> </observationRange> </ referenceRange> </observation> </component> <component> <observation moodCode="EVN" classCode="OBS"> <templateId root= "07.12.840.1.754943.10.20.22.4.2" /> <id nullFlavor="NA" /> < code codeSystem="local" code="LY%" displayName="LYMPHOCYTE %" /> <statusCode code="completed" /> <effectiveTime value="608354408839" /> <value unit="%" xsi:type="PQ" value="45" /> < interpretationCode codeSystem="local" code="*" /> <referenceRange> <observationRange> <text>20-30</text> </ observationRange> </referenceRange> </observation> </ component> <component> <observation moodCode="EVN" classCode="OBS"> <templateId root="2.16.840.1.087880.10..4.2" /> <id nullFlavor="NA" /> <code codeSystem="local" code="MCH" displayName= "MEAN CELL HGB" /> <statusCode code="completed" /> < effectiveTime value="361569049297" /> <value unit="pg" xsi:type="PQ" value="18.9" /> <interpretationCode codeSystem="local" code="*" /> <referenceRange> <observationRange> <text>27.0- 33.0</text> </observationRange> </referenceRange> </ observation> </component> <component> <observation moodCode= "EVN" classCode="OBS"> <templateId root="216.840.1.267032.10.2022.4.2 " /> <id nullFlavor="NA" /> <code codeSystem="local" code= "MCHC" displayName="MEAN CELL HGB CONCENTRATION" /> <statusCode code= "completed" /> <effectiveTime value="342510478497" /> <value unit="g/dL" xsi:type="PQ" value="26.7" /> <interpretationCode codeSystem="local" code="*" /> <referenceRange> < observationRange> <text>32.0-37.0</text> </ observationRange> </referenceRange> </observation> </ component> <component> <observation moodCode="EVN" classCode="OBS"> <templateId root="07.12.840.1.656239.10.20.22.4.2" /> <id nullFlavor="NA" /> <code codeSystem="local" code="MCV" displayName= "MEAN CELL VOLUME" /> <statusCode code="completed" /> < effectiveTime value="990934346195" /> <value unit="fl" xsi:type="PQ" value="70.6" /> <interpretationCode codeSystem="local" code="*" /> <referenceRange> <observationRange> <text>80.0- 100.0</text> </observationRange> </referenceRange> </ observation> </component> <component> <observation moodCode= "EVN" classCode="OBS"> <templateId root="840.1.607592.10.22.4.2 " /> <id nullFlavor="NA" /> <code codeSystem="local" code="MO# " displayName="MONOCYTE #" /> <statusCode code="completed" /> <effectiveTime value="223728998980" /> <value unit="k/cumm" xsi:type= "PQ" value="0.5" /> <referenceRange> <observationRange> <text>0.1-1.0</text> </observationRange> </ referenceRange> </observation> </component> <component> <observation moodCode="EVN" classCode="OBS"> <templateId root= "07.12.840.1.792204.10.20.22.4.2" /> <id nullFlavor="NA" /> < code codeSystem="local" code="MO%" displayName="MONOCYTE %" /> <statusCode code="completed" /> <effectiveTime value="931774112302" /> <value unit="%" xsi:type="PQ" value="7" /> < interpretationCode codeSystem="local" code="*" /> <referenceRange> <observationRange> <text>4-6</text> </ observationRange> </referenceRange> </observation> </ component> <component> <observation moodCode="EVN" classCode="OBS"> <templateId root="2.16.840.1.800007.10.20.22.4.2" /> <id nullFlavor="NA" /> <code codeSystem="local" code="OVAL" displayName= "OVALOCYTES" /> <statusCode code="completed" /> < effectiveTime value="338933800067" /> <value unit="" xsi:type="PQ" value="NOTED" /> <referenceRange> <observationRange> <text /> </observationRange> </referenceRange> </observation> </component> <component> <observation moodCode ="EVN" classCode="OBS"> <templateId root= "2.16.840.1.390043.10.20.22.4.2" /> <id nullFlavor="NA" /> < code codeSystem="local" code="RBC" displayName="RED BLOOD CELL" /> < statusCode code="completed" /> <effectiveTime value="657147408828" /> <value unit="m/cumm" xsi:type="PQ" value="3.44" /> < interpretationCode codeSystem="local" code="*" /> <referenceRange> <observationRange> <text>4.00-6.00</text> </ observationRange> </referenceRange> </observation> </ component> <component> <observation moodCode="EVN" classCode="OBS"> <templateId root="216.840.1.665138.10..22.4.2" /> <id nullFlavor="NA" /> <code codeSystem="local" code="RDW" displayName=" RED CELL DISTRIBUTION WIDTH" /> <statusCode code="completed" /> <effectiveTime value="676093661817" /> <value unit="%" xsi:type= "PQ" value="20.1" /> <interpretationCode codeSystem="local" code="*" / > <referenceRange> <observationRange> <text> 11.0-15.6</text> </observationRange> </referenceRange> </observation> </component> <component> <observation moodCode="EVN" classCode="OBS"> <templateId root= "216.840.1.564750.03.15.22.4.2" /> <id nullFlavor="NA" /> < code codeSystem="local" code="TEAR" displayName="TEAR DROP CELLS" /> < statusCode code="completed" /> <effectiveTime value="355266276457" /> <value unit="" xsi:type="PQ" value="NOTED" /> <referenceRange > <observationRange> <text /> </ observationRange> </referenceRange> </observation> </ component> <component> <observation moodCode="EVN" classCode="OBS"> <templateId root="16.840.1.676548.10.22.4.2" /> <id nullFlavor="NA" /> <code codeSystem="local" code="WBC" displayName= "WHITE BLOOD CELL" /> <statusCode code="completed" /> < effectiveTime value="668736297618" /> <value unit="k/cumm" xsi:type="PQ " value="6.7" /> <referenceRange> <observationRange> <text>5.0-10.0</text> </observationRange> </ referenceRange> </observation> </component> <component> <observation moodCode="EVN" classCode="OBS"> <templateId root= "07.12.840.1.317726.10.20.22.4.2" /> <id nullFlavor="NA" /> < code codeSystem="local" code="HGBT" displayName="HEMOGLOBIN" /> < statusCode code="completed" /> <effectiveTime value="563570642528" /> <value unit="gm/dL" xsi:type="PQ" value="6.5" /> < interpretationCode codeSystem="local" code="*" /> <referenceRange> <observationRange> <text>12.0-16.0</text> </ observationRange> </referenceRange> </observation> </ component> <component> <observation moodCode="EVN" classCode="OBS"> <templateId root="07.12.840.1.713871.10..22.4.2" /> <id nullFlavor="NA" /> <code codeSystem="local" code="HCTT" displayName= "HEMATOCRIT" /> <statusCode code="completed" /> < effectiveTime value="808568629562" /> <value unit="%" xsi:type="PQ " value="24.3" /> <interpretationCode codeSystem="local" code="*" /> <referenceRange> <observationRange> <text>37.0- 47.0</text> </observationRange> </referenceRange> </ observation> </component> <component> <observation moodCode= "EVN" classCode="OBS"> <templateId root="07.12.840.1.293121.10.20.22.4.2 " /> <id nullFlavor="NA" /> <code codeSystem="local" code="PLT " displayName="PLATELET COUNT" /> <statusCode code="completed" /> <effectiveTime value="545839091406" /> <value unit="k/cumm" xsi: type="PQ" value="345" /> <referenceRange> <observationRange > <text>150-400</text> </observationRange> </ referenceRange> </observation> </component> </organizer> </entry > <entry> <organizer moodCode="EVN" classCode="BATTERY"> <templateId root="07.12.840.1.771300.10..22.4.1" /> <id nullFlavor="NA" /> <code codeSystem="local" code="HGB" displayName="HEMOGLOBIN" /> <statusCode code= "completed" /> <component> <observation moodCode="EVN" classCode= "OBS"> <templateId root="07.12.840.1.231835.10..22.4.2" /> < id nullFlavor="NA" /> <code codeSystem="local" code="MCV" displayName= "MEAN CELL VOLUME" /> <statusCode code="completed" /> < effectiveTime value="460899370431" /> <value unit="fl" xsi:type="PQ" value="70.6" /> <interpretationCode codeSystem="local" code="*" /> <referenceRange> <observationRange> <text>80.0- 100.0</text> </observationRange> </referenceRange> </ observation> </component> <component> <observation moodCode= "EVN" classCode="OBS"> <templateId root="840.1.709512.10.20.22.4.2 " /> <id nullFlavor="NA" /> <code codeSystem="local" code= "HGBT" displayName="HEMOGLOBIN" /> <statusCode code="completed" /> <effectiveTime value="081070010377" /> <value unit="gm/dL" xsi: type="PQ" value="6.5" /> <interpretationCode codeSystem="local" code="* " /> <referenceRange> <observationRange> <text> 12.0-16.0</text> </observationRange> </referenceRange> </observation> </component> </organizer> </entry> <entry> < organizer moodCode="EVN" classCode="BATTERY"> <templateId root= "07.12.840.1.886865.10..22.4.1" /> <id nullFlavor="NA" /> <code codeSystem="local" code="HGB" displayName="HEMOGLOBIN" /> <statusCode code= "completed" /> <component> <observation moodCode="EVN" classCode= "OBS"> <templateId root="07.12.840.1.845486.10..22.4.2" /> < id nullFlavor="NA" /> <code codeSystem="local" code="MCV" displayName= "MEAN CELL VOLUME" /> <statusCode code="completed" /> < effectiveTime value="197581837624" /> <value unit="fl" xsi:type="PQ" value="70.5" /> <interpretationCode codeSystem="local" code="*" /> <referenceRange> <observationRange> <text>80.0- 100.0</text> </observationRange> </referenceRange> </ observation> </component> <component> <observation moodCode= "EVN" classCode="OBS"> <templateId root="07.12.840.1.970590.10.20.22.4.2 " /> <id nullFlavor="NA" /> <code codeSystem="local" code= "HGBT" displayName="HEMOGLOBIN" /> <statusCode code="completed" /> <effectiveTime value="563555644997" /> <value unit="gm/dL" xsi: type="PQ" value="6.6" /> <interpretationCode codeSystem="local" code="* " /> <referenceRange> <observationRange> <text> 12.0-16.0</text> </observationRange> </referenceRange> </observation> </component> </organizer> </entry> <entry> < organizer moodCode="EVN" classCode="BATTERY"> <templateId root= "216.840.1.683056.10..22.4.1" /> <id nullFlavor="NA" /> <code codeSystem="local" code="RENAL" displayName="RENAL FUNCTION PANEL" /> < statusCode code="completed" /> <component> <observation moodCode= "EVN" classCode="OBS"> <templateId root="16.840.1.149811.10..22.4.2 " /> <id nullFlavor="NA" /> <code codeSystem="local" code="K" displayName="POTASSIUM" /> <statusCode code="completed" /> < effectiveTime value="451179406153" /> <value unit="mmol/L" xsi:type="PQ " value="3.6" /> <referenceRange> <observationRange> <text>3.5-5.3</text> </observationRange> </ referenceRange> </observation> </component> <component> <observation moodCode="EVN" classCode="OBS"> <templateId root= "16.840.1.005332.10...4.2" /> <id nullFlavor="NA" /> < code codeSystem="local" code="eGFR" displayName="EST GFR (MDRD)" /> < statusCode code="completed" /> <effectiveTime value="494429611841" /> <value unit="mL/min" xsi:type="PQ" value="> 60" /> < referenceRange> <observationRange> <text>> 59</text> </observationRange> </referenceRange> </observation > </component> <component> <observation moodCode="EVN" classCode="OBS"> <templateId root="216.840.1.438100.03.15.22.4.2" /> <id nullFlavor="NA" /> <code codeSystem="local" code="GAP" displayName="ANION GAP" /> <statusCode code="completed" /> < effectiveTime value="077166632937" /> <value unit="mmol/L" xsi:type="PQ " value="4" /> <interpretationCode codeSystem="local" code="*" /> <referenceRange> <observationRange> <text>5-15</ text> </observationRange> </referenceRange> </ observation> </component> <component> <observation moodCode= "EVN" classCode="OBS"> <templateId root="216.840.1.444718.03.15.22.4.2 " /> <id nullFlavor="NA" /> <code codeSystem="local" code= "eCrCl" displayName="EST CrCl (CG)" /> <statusCode code="completed" /> <effectiveTime value="647911495436" /> <value unit="mL/min" xsi:type="PQ" value="> 60" /> <referenceRange> < observationRange> <text>> 59</text> </ observationRange> </referenceRange> </observation> </ component> <component> <observation moodCode="EVN" classCode="OBS"> <templateId root="216.840.1.289494.03.15.22.4.2" /> <id nullFlavor="NA" /> <code codeSystem="local" code="GLU" displayName= "GLUCOSE" /> <statusCode code="completed" /> <effectiveTime value="533314788267" /> <value unit="mg/dL" xsi:type="PQ" value="92" / > <referenceRange> <observationRange> <text>70- 99</text> </observationRange> </referenceRange> </ observation> </component> <component> <observation moodCode= "EVN" classCode="OBS"> <templateId root="2.16.840.1.972545.10..4.2 " /> <id nullFlavor="NA" /> <code codeSystem="local" code="CA " displayName="CALCIUM" /> <statusCode code="completed" /> < effectiveTime value="862420222926" /> <value unit="mg/dL" xsi:type="PQ " value="7.9" /> <interpretationCode codeSystem="local" code="*" /> <referenceRange> <observationRange> <text>8.5- 10.1</text> </observationRange> </referenceRange> </ observation> </component> <component> <observation moodCode= "EVN" classCode="OBS"> <templateId root="216.840.1.744784.03.15.22.4.2 " /> <id nullFlavor="NA" /> <code codeSystem="local" code="BUN " displayName="BLOOD UREA NITROGEN" /> <statusCode code="completed" /> <effectiveTime value="860041448601" /> <value unit="mg/dL" xsi:type="PQ" value="5" /> <interpretationCode codeSystem="local" code= "*" /> <referenceRange> <observationRange> < text>7-20</text> </observationRange> </referenceRange> </observation> </component> <component> <observation moodCode="EVN" classCode="OBS"> <templateId root= "2.16.840.1.174513.10..4.2" /> <id nullFlavor="NA" /> < code codeSystem="local" code="CREAT" displayName="CREATININE" /> < statusCode code="completed" /> <effectiveTime value="717596325309" /> <value unit="mg/dL" xsi:type="PQ" value="0.6" /> < referenceRange> <observationRange> <text>0.6-1.0</text> </observationRange> </referenceRange> </observation > </component> <component> <observation moodCode="EVN" classCode="OBS"> <templateId root="2.840.1.005162.03.15.22.4.2" /> <id nullFlavor="NA" /> <code codeSystem="local" code="NA" displayName="SODIUM" /> <statusCode code="completed" /> < effectiveTime value="426442872910" /> <value unit="mmol/L" xsi:type="PQ " value="139" /> <referenceRange> <observationRange> <text>135-148</text> </observationRange> </ referenceRange> </observation> </component> <component> <observation moodCode="EVN" classCode="OBS"> <templateId root= "16.840.1.899584.03.15.22.4.2" /> <id nullFlavor="NA" /> < code codeSystem="local" code="CL" displayName="CHLORIDE" /> < statusCode code="completed" /> <effectiveTime value="225561943740" /> <value unit="mmol/L" xsi:type="PQ" value="109" /> < referenceRange> <observationRange> <text>98-110</text> </observationRange> </referenceRange> </observation> </component> <component> <observation moodCode="EVN" classCode ="OBS"> <templateId root="16.840.1.914908.10.20.22.4.2" /> < id nullFlavor="NA" /> <code codeSystem="local" code="CO2" displayName= "CARBON DIOXIDE" /> <statusCode code="completed" /> < effectiveTime value="292106708113" /> <value unit="mmol/L" xsi:type="PQ " value="26" /> <referenceRange> <observationRange> <text>21-32</text> </observationRange> </ referenceRange> </observation> </component> <component> <observation moodCode="EVN" classCode="OBS"> <templateId root= "07.12.840.1.024747.10..22.4.2" /> <id nullFlavor="NA" /> < code codeSystem="local" code="ALB" displayName="ALBUMIN" /> < statusCode code="completed" /> <effectiveTime value="503006112540" /> <value unit="gm/dL" xsi:type="PQ" value="3.0" /> < interpretationCode codeSystem="local" code="*" /> <referenceRange> <observationRange> <text>3.4-5.0</text> </ observationRange> </referenceRange> </observation> </ component> <component> <observation moodCode="EVN" classCode="OBS"> <templateId root="07.12.840.1.550623.10.20.22.4.2" /> <id nullFlavor="NA" /> <code codeSystem="local" code="PHOS" displayName= "PHOSPHORUS" /> <statusCode code="completed" /> < effectiveTime value="214299813563" /> <value unit="mg/dL" xsi:type="PQ " value="3.7" /> <referenceRange> <observationRange> <text>2.5-4.9</text> </observationRange> </ referenceRange> </observation> </component> </organizer> </entry > <entry> <organizer moodCode="EVN" classCode="BATTERY"> <templateId root="840.1.700727.10.20.22.4.1" /> <id nullFlavor="NA" /> <code codeSystem="local" code="MAG" displayName="MAGNESIUM" /> <statusCode code= "completed" /> <component> <observation moodCode="EVN" classCode= "OBS"> <templateId root="07.12.840.1.559432.10..22.4.2" /> < id nullFlavor="NA" /> <code codeSystem="local" code="MAG" displayName= "MAGNESIUM" /> <statusCode code="completed" /> <effectiveTime value="947867004230" /> <value unit="mg/dL" xsi:type="PQ" value="1.7" / > <interpretationCode codeSystem="local" code="*" /> < referenceRange> <observationRange> <text>1.8-2.4</text> </observationRange> </referenceRange> </observation > </component> </organizer> </entry> <entry> <organizer moodCode= "EVN" classCode="BATTERY"> <templateId root="07.12.840.1.075571.10.20.22.4.1 " /> <id nullFlavor="NA" /> <code codeSystem="local" code="HGB" displayName="HEMOGLOBIN" /> <statusCode code="completed" /> <component > <observation moodCode="EVN" classCode="OBS"> <templateId root= "07.12.840.1.291275.1022.4.2" /> <id nullFlavor="NA" /> < code codeSystem="local" code="MCV" displayName="MEAN CELL VOLUME" /> < statusCode code="completed" /> <effectiveTime value="369016108573" /> <value unit="fl" xsi:type="PQ" value="72.1" /> < interpretationCode codeSystem="local" code="*" /> <referenceRange> <observationRange> <text>80.0-100.0</text> </ observationRange> </referenceRange> </observation> </ component> <component> <observation moodCode="EVN" classCode="OBS"> <templateId root="07.12.840.1.829878.03.15.22.4.2" /> <id nullFlavor="NA" /> <code codeSystem="local" code="HGBT" displayName= "HEMOGLOBIN" /> <statusCode code="completed" /> < effectiveTime value="268182972167" /> <value unit="gm/dL" xsi:type="PQ " value="7.9" /> <interpretationCode codeSystem="local" code="*" /> <referenceRange> <observationRange> <text>12.0- 16.0</text> </observationRange> </referenceRange> </ observation> </component> </organizer> </entry> <entry> <organizer moodCode="EVN" classCode="BATTERY"> <templateId root= "07.12.840.1.645824.10.20.22.4.1" /> <id nullFlavor="NA" /> <code codeSystem="local" code="HGB" displayName="HEMOGLOBIN" /> <statusCode code= "completed" /> <component> <observation moodCode="EVN" classCode= "OBS"> <templateId root="07.12.840.1.343289.10..4.2" /> < id nullFlavor="NA" /> <code codeSystem="local" code="MCV" displayName= "MEAN CELL VOLUME" /> <statusCode code="completed" /> < effectiveTime value="" /> <value unit="fl" xsi:type="PQ" value="70.0" /> <interpretationCode codeSystem="local" code="*" /> <referenceRange> <observationRange> <text>80.0- 100.0</text> </observationRange> </referenceRange> </ observation> </component> <component> <observation moodCode= "EVN" classCode="OBS"> <templateId root="840.1.006600.03.15.22.4.2 " /> <id nullFlavor="NA" /> <code codeSystem="local" code= "HGBT" displayName="HEMOGLOBIN" /> <statusCode code="completed" /> <effectiveTime value="" /> <value unit="gm/dL" xsi: type="PQ" value="8.1" /> <interpretationCode codeSystem="local" code="* " /> <referenceRange> <observationRange> <text> 12.0-16.0</text> </observationRange> </referenceRange> </observation> </component> </organizer> </entry> <entry> < organizer moodCode="EVN" classCode="BATTERY"> <templateId root= "07.12.840.1.310603.10.22.4.1" /> <id nullFlavor="NA" /> <code codeSystem="local" code="CBCD" displayName="CBC W/DIFF" /> <statusCode code ="completed" /> <component> <observation moodCode="EVN" classCode= "OBS"> <templateId root="216.840.1.815520.10.4.2" /> < id nullFlavor="NA" /> <code codeSystem="local" code="BA#" displayName= "BASOPHIL #" /> <statusCode code="completed" /> < effectiveTime value="" /> <value unit="k/cumm" xsi:type="PQ " value="0.0" /> <referenceRange> <observationRange> <text>0.0-0.2</text> </observationRange> </ referenceRange> </observation> </component> <component> <observation moodCode="EVN" classCode="OBS"> <templateId root= "07.12.840.1.315370.03.15.224.2" /> <id nullFlavor="NA" /> < code codeSystem="local" code="BA%" displayName="BASOPHIL %" /> <statusCode code="completed" /> <effectiveTime value="" /> <value unit="%" xsi:type="PQ" value="1" /> < referenceRange> <observationRange> <text>0-1</text> </observationRange> </referenceRange> </observation> </component> <component> <observation moodCode="EVN" classCode= "OBS"> <templateId root="07.12.840.1.666720.03.15.22.4.2" /> < id nullFlavor="NA" /> <code codeSystem="local" code="CBCCOM" displayName="COMMENT" /> <statusCode code="completed" /> < effectiveTime value="" /> <value unit="" xsi:type="PQ" value="REVIEWED" /> <referenceRange> <observationRange> <text /> </observationRange> </referenceRange> </observation> </component> <component> <observation moodCode="EVN" classCode="OBS"> <templateId root= "07.12.840.1.024129.10.20.22.4.2" /> <id nullFlavor="NA" /> < code codeSystem="local" code="EO#" displayName="EOSINOPHIL #" /> < statusCode code="completed" /> <effectiveTime value="349749811993" /> <value unit="k/cumm" xsi:type="PQ" value="0.2" /> < referenceRange> <observationRange> <text>0.1-0.5</text> </observationRange> </referenceRange> </observation > </component> <component> <observation moodCode="EVN" classCode="OBS"> <templateId root="840.1.662571.10.22.4.2" /> <id nullFlavor="NA" /> <code codeSystem="local" code="EO% " displayName="EOSINOPHIL %" /> <statusCode code="completed" /> <effectiveTime value="[id number]" /> <value unit="%" xsi: type="PQ" value="2" /> <referenceRange> <observationRange> <text>2-4</text> </observationRange> </ referenceRange> </observation> </component> <component> <observation moodCode="EVN" classCode="OBS"> <templateId root= "07.12.840.1.505451.10.20.22.4.2" /> <id nullFlavor="NA" /> < code codeSystem="local" code="GR#" displayName="GRANULOCYTE #" /> < statusCode code="completed" /> <effectiveTime value="[id number]" /> <value unit="k/cumm" xsi:type="PQ" value="4.2" /> < referenceRange> <observationRange> <text>2.0-9.0</text> </observationRange> </referenceRange> </observation > </component> <component> <observation moodCode="EVN" classCode="OBS"> <templateId root="216.840.1.162517.10.20.22.4.2" /> <id nullFlavor="NA" /> <code codeSystem="local" code="GR% " displayName="GRANULOCYTE %" /> <statusCode code="completed" /> <effectiveTime value="" /> <value unit="%" xsi: type="PQ" value="58" /> <referenceRange> <observationRange> <text>50-75</text> </observationRange> </ referenceRange> </observation> </component> <component> <observation moodCode="EVN" classCode="OBS"> <templateId root= "16.840.1.606961.10.20.22.4.2" /> <id nullFlavor="NA" /> < code codeSystem="local" code="LY#" displayName="LYMPHOCYTE #" /> < statusCode code="completed" /> <effectiveTime value="[id number]" /> <value unit="k/cumm" xsi:type="PQ" value="2.3" /> < referenceRange> <observationRange> <text>1.0-4.0</text> </observationRange> </referenceRange> </observation > </component> <component> <observation moodCode="EVN" classCode="OBS"> <templateId root="840.1.135182.10.20.22.4.2" /> <id nullFlavor="NA" /> <code codeSystem="local" code="LY% " displayName="LYMPHOCYTE %" /> <statusCode code="completed" /> <effectiveTime value="" /> <value unit="%" xsi: type="PQ" value="31" /> <interpretationCode codeSystem="local" code="* " /> <referenceRange> <observationRange> <text> 20-30</text> </observationRange> </referenceRange> </ observation> </component> <component> <observation moodCode= "EVN" classCode="OBS"> <templateId root="840.1.649384.10.2022.4.2 " /> <id nullFlavor="NA" /> <code codeSystem="local" code="MCH " displayName="MEAN CELL HGB" /> <statusCode code="completed" /> <effectiveTime value="" /> <value unit="pg" xsi:type= "PQ" value="20.3" /> <interpretationCode codeSystem="local" code="*" / > <referenceRange> <observationRange> <text> 27.0-33.0</text> </observationRange> </referenceRange> </observation> </component> <component> <observation moodCode="EVN" classCode="OBS"> <templateId root= "840.1.260112.10.20.22.4.2" /> <id nullFlavor="NA" /> < code codeSystem="local" code="MCHC" displayName="MEAN CELL HGB CONCENTRATION" / > <statusCode code="completed" /> <effectiveTime value= "[id number]" /> <value unit="g/dL" xsi:type="PQ" value="28.9" /> <interpretationCode codeSystem="local" code="*" /> < referenceRange> <observationRange> <text>32.0-37.0</text > </observationRange> </referenceRange> </observation > </component> <component> <observation moodCode="EVN" classCode="OBS"> <templateId root="216.840.1.152317.03.15.22.4.2" /> <id nullFlavor="NA" /> <code codeSystem="local" code="MCV" displayName="MEAN CELL VOLUME" /> <statusCode code="completed" /> <effectiveTime value="" /> <value unit="fl" xsi:type= "PQ" value="70.3" /> <interpretationCode codeSystem="local" code="*" / > <referenceRange> <observationRange> <text> 80.0-100.0</text> </observationRange> </referenceRange> </observation> </component> <component> <observation moodCode="EVN" classCode="OBS"> <templateId root= "07.12.840.1.743521.03.15.22.4.2" /> <id nullFlavor="NA" /> < code codeSystem="local" code="MO#" displayName="MONOCYTE #" /> < statusCode code="completed" /> <effectiveTime value="[id number]" /> <value unit="k/cumm" xsi:type="PQ" value="0.5" /> < referenceRange> <observationRange> <text>0.1-1.0</text> </observationRange> </referenceRange> </observation > </component> <component> <observation moodCode="EVN" classCode="OBS"> <templateId root="216.840.1.823438.03.15.22.4.2" /> <id nullFlavor="NA" /> <code codeSystem="local" code="MO% " displayName="MONOCYTE %" /> <statusCode code="completed" /> <effectiveTime value="" /> <value unit="%" xsi: type="PQ" value="7" /> <interpretationCode codeSystem="local" code="*" /> <referenceRange> <observationRange> <text>4- 6</text> </observationRange> </referenceRange> </ observation> </component> <component> <observation moodCode= "EVN" classCode="OBS"> <templateId root="2.16.840.1.380974...4.2 " /> <id nullFlavor="NA" /> <code codeSystem="local" code= "OVAL" displayName="OVALOCYTES" /> <statusCode code="completed" /> <effectiveTime value="" /> <value unit="" xsi:type= "PQ" value="NOTED" /> <referenceRange> <observationRange> <text /> </observationRange> </referenceRange> </observation> </component> <component> <observation moodCode="EVN" classCode="OBS"> <templateId root= "2.16.840.1.357522.03.15.22.4.2" /> <id nullFlavor="NA" /> < code codeSystem="local" code="RBC" displayName="RED BLOOD CELL" /> < statusCode code="completed" /> <effectiveTime value="" /> <value unit="m/cumm" xsi:type="PQ" value="3.94" /> < interpretationCode codeSystem="local" code="*" /> <referenceRange> <observationRange> <text>4.00-6.00</text> </ observationRange> </referenceRange> </observation> </ component> <component> <observation moodCode="EVN" classCode="OBS"> <templateId root="16.840.1.386467.03.15.22.4.2" /> <id nullFlavor="NA" /> <code codeSystem="local" code="RDW" displayName=" RED CELL DISTRIBUTION WIDTH" /> <statusCode code="completed" /> <effectiveTime value="" /> <value unit="%" xsi:type= "PQ" value="20.4" /> <interpretationCode codeSystem="local" code="*" / > <referenceRange> <observationRange> <text> 11.0-15.6</text> </observationRange> </referenceRange> </observation> </component> <component> <observation moodCode="EVN" classCode="OBS"> <templateId root= "07.12.840.1.629265.03.15.22.4.2" /> <id nullFlavor="NA" /> < code codeSystem="local" code="TEAR" displayName="TEAR DROP CELLS" /> < statusCode code="completed" /> <effectiveTime value="" /> <value unit="" xsi:type="PQ" value="NOTED" /> <referenceRange > <observationRange> <text /> </ observationRange> </referenceRange> </observation> </ component> <component> <observation moodCode="EVN" classCode="OBS"> <templateId root="07.12.840.1.304855.03.15.22.4.2" /> <id nullFlavor="NA" /> <code codeSystem="local" code="WBC" displayName= "WHITE BLOOD CELL" /> <statusCode code="completed" /> < effectiveTime value="" /> <value unit="k/cumm" xsi:type="PQ " value="7.2" /> <referenceRange> <observationRange> <text>5.0-10.0</text> </observationRange> </ referenceRange> </observation> </component> <component> <observation moodCode="EVN" classCode="OBS"> <templateId root= "216.840.1.268686.03.15.22.4.2" /> <id nullFlavor="NA" /> < code codeSystem="local" code="HGBT" displayName="HEMOGLOBIN" /> < statusCode code="completed" /> <effectiveTime value="" /> <value unit="gm/dL" xsi:type="PQ" value="8.0" /> < interpretationCode codeSystem="local" code="*" /> <referenceRange> <observationRange> <text>12.0-16.0</text> </ observationRange> </referenceRange> </observation> </ component> <component> <observation moodCode="EVN" classCode="OBS"> <templateId root="216.840.1.637670.03.15.224.2" /> <id nullFlavor="NA" /> <code codeSystem="local" code="HCTT" displayName= "HEMATOCRIT" /> <statusCode code="completed" /> < effectiveTime value="" /> <value unit="%" xsi:type="PQ " value="27.7" /> <interpretationCode codeSystem="local" code="*" /> <referenceRange> <observationRange> <text>37.0- 47.0</text> </observationRange> </referenceRange> </ observation> </component> <component> <observation moodCode= "EVN" classCode="OBS"> <templateId root="216.840.1.043120.03.15.22.4.2 " /> <id nullFlavor="NA" /> <code codeSystem="local" code="PLT " displayName="PLATELET COUNT" /> <statusCode code="completed" /> <effectiveTime value="[id number]" /> <value unit="k/cumm" xsi: type="PQ" value="319" /> <referenceRange> <observationRange > <text>150-400</text> </observationRange> </ referenceRange> </observation> </component> </organizer> </entry > <entry> <organizer moodCode="EVN" classCode="BATTERY"> <templateId root="07.12.840.1.009616.03.15.22.4.1" /> <id nullFlavor="NA" /> <code codeSystem="local" code="METABC" displayName="METABOLIC PANEL, COMPREHN" /> <statusCode code="completed" /> <component> <observation moodCode= "EVN" classCode="OBS"> <templateId root="07.12.840.1.379534.03.15.22.4.2 " /> <id nullFlavor="NA" /> <code codeSystem="local" code="K" displayName="POTASSIUM" /> <statusCode code="completed" /> < effectiveTime value="[id number]" /> <value unit="mmol/L" xsi:type="PQ " value="4.0" /> <referenceRange> <observationRange> <text>3.5-5.3</text> </observationRange> </ referenceRange> </observation> </component> <component> <observation moodCode="EVN" classCode="OBS"> <templateId root= "07.12.840.1.587038.03.15.22.4.2" /> <id nullFlavor="NA" /> < code codeSystem="local" code="eGFR" displayName="EST GFR (MDRD)" /> < statusCode code="completed" /> <effectiveTime value="" /> <value unit="mL/min" xsi:type="PQ" value="> 60" /> < referenceRange> <observationRange> <text>> 59</text> </observationRange> </referenceRange> </observation > </component> <component> <observation moodCode="EVN" classCode="OBS"> <templateId root="216.840.1.363803.10..22.4.2" /> <id nullFlavor="NA" /> <code codeSystem="local" code="GAP" displayName="ANION GAP" /> <statusCode code="completed" /> < effectiveTime value="" /> <value unit="mmol/L" xsi:type="PQ " value="2" /> <interpretationCode codeSystem="local" code="*" /> <referenceRange> <observationRange> <text>5-15</ text> </observationRange> </referenceRange> </ observation> </component> <component> <observation moodCode= "EVN" classCode="OBS"> <templateId root="2.16.840.1.394926.10..22.4.2 " /> <id nullFlavor="NA" /> <code codeSystem="local" code= "eCrCl" displayName="EST CrCl (CG)" /> <statusCode code="completed" /> <effectiveTime value="" /> <value unit="mL/min" xsi:type="PQ" value="> 60" /> <referenceRange> < observationRange> <text>> 59</text> </ observationRange> </referenceRange> </observation> </ component> <component> <observation moodCode="EVN" classCode="OBS"> <templateId root="16.840.1.785598.10.20.22.4.2" /> <id nullFlavor="NA" /> <code codeSystem="local" code="GLU" displayName= "GLUCOSE" /> <statusCode code="completed" /> <effectiveTime value="" /> <value unit="mg/dL" xsi:type="PQ" value="87" / > <referenceRange> <observationRange> <text>70- 99</text> </observationRange> </referenceRange> </ observation> </component> <component> <observation moodCode= "EVN" classCode="OBS"> <templateId root="07.12.840.1.788864.10.22.4.2 " /> <id nullFlavor="NA" /> <code codeSystem="local" code="CA " displayName="CALCIUM" /> <statusCode code="completed" /> < effectiveTime value="" /> <value unit="mg/dL" xsi:type="PQ " value="8.3" /> <interpretationCode codeSystem="local" code="*" /> <referenceRange> <observationRange> <text>8.5- 10.1</text> </observationRange> </referenceRange> </ observation> </component> <component> <observation moodCode= "EVN" classCode="OBS"> <templateId root="07.12.840.1.612034.10.2022.4.2 " /> <id nullFlavor="NA" /> <code codeSystem="local" code="BUN " displayName="BLOOD UREA NITROGEN" /> <statusCode code="completed" /> <effectiveTime value="" /> <value unit="mg/dL" xsi:type="PQ" value="2" /> <interpretationCode codeSystem="local" code= "*" /> <referenceRange> <observationRange> < text>7-20</text> </observationRange> </referenceRange> </observation> </component> <component> <observation moodCode="EVN" classCode="OBS"> <templateId root= "16.840.1.848750.10...4.2" /> <id nullFlavor="NA" /> < code codeSystem="local" code="CREAT" displayName="CREATININE" /> < statusCode code="completed" /> <effectiveTime value="" /> <value unit="mg/dL" xsi:type="PQ" value="0.6" /> < referenceRange> <observationRange> <text>0.6-1.0</text> </observationRange> </referenceRange> </observation > </component> <component> <observation moodCode="EVN" classCode="OBS"> <templateId root="07.12.840.1.019190.03.15.22.4.2" /> <id nullFlavor="NA" /> <code codeSystem="local" code="NA" displayName="SODIUM" /> <statusCode code="completed" /> < effectiveTime value="" /> <value unit="mmol/L" xsi:type="PQ " value="137" /> <referenceRange> <observationRange> <text>135-148</text> </observationRange> </ referenceRange> </observation> </component> <component> <observation moodCode="EVN" classCode="OBS"> <templateId root= "07.12.840.1.982506.10..4.2" /> <id nullFlavor="NA" /> < code codeSystem="local" code="CL" displayName="CHLORIDE" /> < statusCode code="completed" /> <effectiveTime value="" /> <value unit="mmol/L" xsi:type="PQ" value="111" /> < interpretationCode codeSystem="local" code="*" /> <referenceRange> <observationRange> <text>98-110</text> </ observationRange> </referenceRange> </observation> </ component> <component> <observation moodCode="EVN" classCode="OBS"> <templateId root="07.12.840.1.885546.10.22.4.2" /> <id nullFlavor="NA" /> <code codeSystem="local" code="AST" displayName="AST /SGOT" /> <statusCode code="completed" /> <effectiveTime value ="" /> <value unit="Units/L" xsi:type="PQ" value="23" /> <referenceRange> <observationRange> <text>10-37< /text> </observationRange> </referenceRange> </ observation> </component> <component> <observation moodCode= "EVN" classCode="OBS"> <templateId root="07.12.840.1.011783.10...4.2 " /> <id nullFlavor="NA" /> <code codeSystem="local" code="ALT " displayName="ALT/SGPT" /> <statusCode code="completed" /> < effectiveTime value="" /> <value unit="Units/L" xsi:type= "PQ" value="18" /> <referenceRange> <observationRange> <text>< 66</text> </observationRange> </ referenceRange> </observation> </component> <component> <observation moodCode="EVN" classCode="OBS"> <templateId root= "07.12.840.1.832353.03.15.224.2" /> <id nullFlavor="NA" /> < code codeSystem="local" code="CO2" displayName="CARBON DIOXIDE" /> < statusCode code="completed" /> <effectiveTime value="" /> <value unit="mmol/L" xsi:type="PQ" value="24" /> < referenceRange> <observationRange> <text>21-32</text> </observationRange> </referenceRange> </observation> </component> <component> <observation moodCode="EVN" classCode= "OBS"> <templateId root="2.16.840.1.404083.03.15.224.2" /> < id nullFlavor="NA" /> <code codeSystem="local" code="TP" displayName= "TOTAL PROTEIN" /> <statusCode code="completed" /> < effectiveTime value="" /> <value unit="gm/dL" xsi:type="PQ " value="5.8" /> <interpretationCode codeSystem="local" code="*" /> <referenceRange> <observationRange> <text>6.4-8.2 </text> </observationRange> </referenceRange> </ observation> </component> <component> <observation moodCode= "EVN" classCode="OBS"> <templateId root="216.840.1.180698.10.4.2 " /> <id nullFlavor="NA" /> <code codeSystem="local" code="ALB " displayName="ALBUMIN" /> <statusCode code="completed" /> < effectiveTime value="" /> <value unit="gm/dL" xsi:type="PQ " value="2.8" /> <interpretationCode codeSystem="local" code="*" /> <referenceRange> <observationRange> <text>3.4-5.0 </text> </observationRange> </referenceRange> </ observation> </component> <component> <observation moodCode= "EVN" classCode="OBS"> <templateId root="216.840.1.446777.1022.4.2 " /> <id nullFlavor="NA" /> <code codeSystem="local" code= "BILTOT" displayName="BILI TOTAL" /> <statusCode code="completed" /> <effectiveTime value="" /> <value unit="mg/dL" xsi: type="PQ" value="0.1" /> <referenceRange> <observationRange > <text>0.0-1.0</text> </observationRange> </ referenceRange> </observation> </component> <component> <observation moodCode="EVN" classCode="OBS"> <templateId root= "16.840.1.761953.03.15.22.4.2" /> <id nullFlavor="NA" /> < code codeSystem="local" code="ALKP" displayName="ALKALINE PHOSPHATASE TOTAL" /> <statusCode code="completed" /> <effectiveTime value= "658904468621" /> <value unit="IU/L" xsi:type="PQ" value="61" /> <referenceRange> <observationRange> <text>45-117</ text> </observationRange> </referenceRange> </ observation> </component> </organizer> </entry> <entry> <organizer moodCode="EVN" classCode="BATTERY"> <templateId root= "216.840.1.206645.10...4.1" /> <id nullFlavor="NA" /> <code codeSystem="local" code="HELICOSCR" displayName="AB H.PYLORI SCREEN" /> < statusCode code="completed" /> <component> <observation moodCode= "EVN" classCode="OBS"> <templateId root="216.840.1.860990.10..22.4.2 " /> <id nullFlavor="NA" /> <code codeSystem="local" code= "HELICOSCR" displayName="AB H.PYLORI SCREEN" /> <statusCode code= "completed" /> <effectiveTime value="020771134533" /> <value unit="" xsi:type="PQ" value="NEGATIVE" /> <referenceRange> < observationRange> <text>NEGATIVE</text> </ observationRange> </referenceRange> </observation> </ component> </organizer> </entry> <entry> <organizer moodCode="EVN" classCode="BATTERY"> <templateId root="2.16.840.1.458680.10..22.4.1" /> <id nullFlavor="NA" /> <code codeSystem="local" code="LIP" displayName ="LIPASE" /> <statusCode code="completed" /> <component> < observation moodCode="EVN" classCode="OBS"> <templateId root= "2.16.840.1.101488.10..22.4.2" /> <id nullFlavor="NA" /> < code codeSystem="local" code="LIP" displayName="LIPASE" /> <statusCode code="completed" /> <effectiveTime value="526569896422" /> < value unit="Units/L" xsi:type="PQ" value="86" /> <referenceRange> <observationRange> <text>73-393</text> </ observationRange> </referenceRange> </observation> </ component> </organizer> </entry> <entry> <organizer moodCode="EVN" classCode="BATTERY"> <templateId root="216.840.1.697098.10..22.4.1" /> <id nullFlavor="NA" /> <code codeSystem="local" code="CBCD" displayName="CBC W/DIFF" /> <statusCode code="completed" /> <component > <observation moodCode="EVN" classCode="OBS"> <templateId root= "07.12.840.1.495852.03.15.22.4.2" /> <id nullFlavor="NA" /> < code codeSystem="local" code="EO#" displayName="EOSINOPHIL #" /> < statusCode code="completed" /> <effectiveTime value="527327516065" /> <value unit="k/cumm" xsi:type="PQ" value="0.2" /> < referenceRange> <observationRange> <text>0.1-0.5</text> </observationRange> </referenceRange> </observation > </component> <component> <observation moodCode="EVN" classCode="OBS"> <templateId root="840.1.527548.03.15.22.4.2" /> <id nullFlavor="NA" /> <code codeSystem="local" code="EO% " displayName="EOSINOPHIL %" /> <statusCode code="completed" /> <effectiveTime value="739382306343" /> <value unit="%" xsi: type="PQ" value="2" /> <referenceRange> <observationRange> <text>2-4</text> </observationRange> </ referenceRange> </observation> </component> <component> <observation moodCode="EVN" classCode="OBS"> <templateId root= "07.12.840.1.285130...4.2" /> <id nullFlavor="NA" /> < code codeSystem="local" code="GR#" displayName="GRANULOCYTE #" /> < statusCode code="completed" /> <effectiveTime value="712242408158" /> <value unit="k/cumm" xsi:type="PQ" value="5.9" /> < referenceRange> <observationRange> <text>2.0-9.0</text> </observationRange> </referenceRange> </observation > </component> <component> <observation moodCode="EVN" classCode="OBS"> <templateId root="216.840.1.299353.10.20.22.4.2" /> <id nullFlavor="NA" /> <code codeSystem="local" code="GR% " displayName="GRANULOCYTE %" /> <statusCode code="completed" /> <effectiveTime value="" /> <value unit="%" xsi: type="PQ" value="65" /> <referenceRange> <observationRange> <text>50-75</text> </observationRange> </ referenceRange> </observation> </component> <component> <observation moodCode="EVN" classCode="OBS"> <templateId root= "16.840.1.434203.10.20.22.4.2" /> <id nullFlavor="NA" /> < code codeSystem="local" code="LY#" displayName="LYMPHOCYTE #" /> < statusCode code="completed" /> <effectiveTime value="079371396229" /> <value unit="k/cumm" xsi:type="PQ" value="2.2" /> < referenceRange> <observationRange> <text>1.0-4.0</text> </observationRange> </referenceRange> </observation > </component> <component> <observation moodCode="EVN" classCode="OBS"> <templateId root="07.12.840.1.921337.10.20.22.4.2" /> <id nullFlavor="NA" /> <code codeSystem="local" code="LY% " displayName="LYMPHOCYTE %" /> <statusCode code="completed" /> <effectiveTime value="" /> <value unit="%" xsi: type="PQ" value="24" /> <referenceRange> <observationRange> <text>20-30</text> </observationRange> </ referenceRange> </observation> </component> <component> <observation moodCode="EVN" classCode="OBS"> <templateId root= "07.12.840.1.854499.10.20.22.4.2" /> <id nullFlavor="NA" /> < code codeSystem="local" code="MCH" displayName="MEAN CELL HGB" /> < statusCode code="completed" /> <effectiveTime value="" /> <value unit="pg" xsi:type="PQ" value="20.2" /> < interpretationCode codeSystem="local" code="*" /> <referenceRange> <observationRange> <text>27.0-33.0</text> </ observationRange> </referenceRange> </observation> </ component> <component> <observation moodCode="EVN" classCode="OBS"> <templateId root="07.12.840.1.470297.10.20.22.4.2" /> <id nullFlavor="NA" /> <code codeSystem="local" code="MCHC" displayName= "MEAN CELL HGB CONCENTRATION" /> <statusCode code="completed" /> <effectiveTime value="" /> <value unit="g/dL" xsi:type= "PQ" value="28.2" /> <interpretationCode codeSystem="local" code="*" / > <referenceRange> <observationRange> <text> 32.0-37.0</text> </observationRange> </referenceRange> </observation> </component> <component> <observation moodCode="EVN" classCode="OBS"> <templateId root= "216.840.1.631919.10.2022.4.2" /> <id nullFlavor="NA" /> < code codeSystem="local" code="MCV" displayName="MEAN CELL VOLUME" /> < statusCode code="completed" /> <effectiveTime value="" /> <value unit="fl" xsi:type="PQ" value="71.5" /> < interpretationCode codeSystem="local" code="*" /> <referenceRange> <observationRange> <text>80.0-100.0</text> </ observationRange> </referenceRange> </observation> </ component> <component> <observation moodCode="EVN" classCode="OBS"> <templateId root="840.1.051740.03.15.22.4.2" /> <id nullFlavor="NA" /> <code codeSystem="local" code="MO#" displayName= "MONOCYTE #" /> <statusCode code="completed" /> < effectiveTime value="454750846630" /> <value unit="k/cumm" xsi:type="PQ " value="0.8" /> <referenceRange> <observationRange> <text>0.1-1.0</text> </observationRange> </ referenceRange> </observation> </component> <component> <observation moodCode="EVN" classCode="OBS"> <templateId root= "16.840.1.455952.10.2022.4.2" /> <id nullFlavor="NA" /> < code codeSystem="local" code="MO%" displayName="MONOCYTE %" /> <statusCode code="completed" /> <effectiveTime value="" /> <value unit="%" xsi:type="PQ" value="9" /> < interpretationCode codeSystem="local" code="*" /> <referenceRange> <observationRange> <text>4-6</text> </ observationRange> </referenceRange> </observation> </ component> <component> <observation moodCode="EVN" classCode="OBS"> <templateId root="2.16.840.1.396754.10..4.2" /> <id nullFlavor="NA" /> <code codeSystem="local" code="OVAL" displayName= "OVALOCYTES" /> <statusCode code="completed" /> < effectiveTime value="" /> <value unit="" xsi:type="PQ" value="NOTED" /> <referenceRange> <observationRange> <text /> </observationRange> </referenceRange> </observation> </component> <component> <observation moodCode ="EVN" classCode="OBS"> <templateId root= "2.16.840.1.487223.10.22.4.2" /> <id nullFlavor="NA" /> < code codeSystem="local" code="RBC" displayName="RED BLOOD CELL" /> < statusCode code="completed" /> <effectiveTime value="" /> <value unit="m/cumm" xsi:type="PQ" value="4.11" /> < referenceRange> <observationRange> <text>4.00-6.00</text > </observationRange> </referenceRange> </observation > </component> <component> <observation moodCode="EVN" classCode="OBS"> <templateId root="16.840.1.522041.10.20.22.4.2" /> <id nullFlavor="NA" /> <code codeSystem="local" code="RDW" displayName="RED CELL DISTRIBUTION WIDTH" /> <statusCode code= "completed" /> <effectiveTime value="" /> <value unit="%" xsi:type="PQ" value="22.3" /> <interpretationCode codeSystem="local" code="*" /> <referenceRange> < observationRange> <text>11.0-15.6</text> </ observationRange> </referenceRange> </observation> </ component> <component> <observation moodCode="EVN" classCode="OBS"> <templateId root="07.12.840.1.779796.22.4.2" /> <id nullFlavor="NA" /> <code codeSystem="local" code="WBC" displayName= "WHITE BLOOD CELL" /> <statusCode code="completed" /> < effectiveTime value="" /> <value unit="k/cumm" xsi:type="PQ " value="9.1" /> <referenceRange> <observationRange> <text>5.0-10.0</text> </observationRange> </ referenceRange> </observation> </component> <component> <observation moodCode="EVN" classCode="OBS"> <templateId root= "16.840.1.000676.10.2022.4.2" /> <id nullFlavor="NA" /> < code codeSystem="local" code="HGBT" displayName="HEMOGLOBIN" /> < statusCode code="completed" /> <effectiveTime value="" /> <value unit="gm/dL" xsi:type="PQ" value="8.3" /> < interpretationCode codeSystem="local" code="*" /> <referenceRange> <observationRange> <text>12.0-16.0</text> </ observationRange> </referenceRange> </observation> </ component> <component> <observation moodCode="EVN" classCode="OBS"> <templateId root="216.840.1.163971.03.15.22.4.2" /> <id nullFlavor="NA" /> <code codeSystem="local" code="HCTT" displayName= "HEMATOCRIT" /> <statusCode code="completed" /> < effectiveTime value="798525491761" /> <value unit="%" xsi:type="PQ " value="29.4" /> <interpretationCode codeSystem="local" code="*" /> <referenceRange> <observationRange> <text>37.0- 47.0</text> </observationRange> </referenceRange> </ observation> </component> <component> <observation moodCode= "EVN" classCode="OBS"> <templateId root="2.840.1.845620.03.15.22.4.2 " /> <id nullFlavor="NA" /> <code codeSystem="local" code="PLT " displayName="PLATELET COUNT" /> <statusCode code="completed" /> <effectiveTime value="798804840550" /> <value unit="k/cumm" xsi: type="PQ" value="315" /> <referenceRange> <observationRange > <text>150-400</text> </observationRange> </ referenceRange> </observation> </component> </organizer> </entry > <entry> <organizer moodCode="EVN" classCode="BATTERY"> <templateId root="216.840.1.034908.03.15.22.4.1" /> <id nullFlavor="NA" /> <code codeSystem="local" code="RENAL" displayName="RENAL FUNCTION PANEL" /> < statusCode code="completed" /> <component> <observation moodCode= "EVN" classCode="OBS"> <templateId root="216.840.1.091169.10..22.4.2 " /> <id nullFlavor="NA" /> <code codeSystem="local" code="K" displayName="POTASSIUM" /> <statusCode code="completed" /> < effectiveTime value="644743696100" /> <value unit="mmol/L" xsi:type="PQ " value="5.4" /> <interpretationCode codeSystem="local" code="*" /> <referenceRange> <observationRange> <text>3.5-5.3 </text> </observationRange> </referenceRange> </ observation> </component> <component> <observation moodCode= "EVN" classCode="OBS"> <templateId root="07.12.840.1.122459.03.15.22.4.2 " /> <id nullFlavor="NA" /> <code codeSystem="local" code= "eGFR" displayName="EST GFR (MDRD)" /> <statusCode code="completed" /> <effectiveTime value="" /> <value unit="mL/min" xsi:type="PQ" value="> 60" /> <referenceRange> < observationRange> <text>> 59</text> </ observationRange> </referenceRange> </observation> </ component> <component> <observation moodCode="EVN" classCode="OBS"> <templateId root="16.840.1.777293.10..22.4.2" /> <id nullFlavor="NA" /> <code codeSystem="local" code="GAP" displayName= "ANION GAP" /> <statusCode code="completed" /> <effectiveTime value="" /> <value unit="mmol/L" xsi:type="PQ" value="5" / > <referenceRange> <observationRange> <text>5- 15</text> </observationRange> </referenceRange> </ observation> </component> <component> <observation moodCode= "EVN" classCode="OBS"> <templateId root="16.840.1.681817.10..22.4.2 " /> <id nullFlavor="NA" /> <code codeSystem="local" code= "eCrCl" displayName="EST CrCl (CG)" /> <statusCode code="completed" /> <effectiveTime value="" /> <value unit="mL/min" xsi:type="PQ" value="> 60" /> <referenceRange> < observationRange> <text>> 59</text> </ observationRange> </referenceRange> </observation> </ component> <component> <observation moodCode="EVN" classCode="OBS"> <templateId root="16.840.1.100738.10..22.4.2" /> <id nullFlavor="NA" /> <code codeSystem="local" code="GLU" displayName= "GLUCOSE" /> <statusCode code="completed" /> <effectiveTime value="" /> <value unit="mg/dL" xsi:type="PQ" value="89" / > <referenceRange> <observationRange> <text>70- 99</text> </observationRange> </referenceRange> </ observation> </component> <component> <observation moodCode= "EVN" classCode="OBS"> <templateId root="840.1.098195.10.20.22.4.2 " /> <id nullFlavor="NA" /> <code codeSystem="local" code="CA " displayName="CALCIUM" /> <statusCode code="completed" /> < effectiveTime value="" /> <value unit="mg/dL" xsi:type="PQ " value="8.3" /> <interpretationCode codeSystem="local" code="*" /> <referenceRange> <observationRange> <text>8.5- 10.1</text> </observationRange> </referenceRange> </ observation> </component> <component> <observation moodCode= "EVN" classCode="OBS"> <templateId root="07.12.840.1.735022.10.22.4.2 " /> <id nullFlavor="NA" /> <code codeSystem="local" code="BUN " displayName="BLOOD UREA NITROGEN" /> <statusCode code="completed" /> <effectiveTime value="" /> <value unit="mg/dL" xsi:type="PQ" value="5" /> <interpretationCode codeSystem="local" code= "*" /> <referenceRange> <observationRange> < text>7-20</text> </observationRange> </referenceRange> </observation> </component> <component> <observation moodCode="EVN" classCode="OBS"> <templateId root= "07.12.840.1.030699.10..22.4.2" /> <id nullFlavor="NA" /> < code codeSystem="local" code="CREAT" displayName="CREATININE" /> < statusCode code="completed" /> <effectiveTime value="" /> <value unit="mg/dL" xsi:type="PQ" value="0.6" /> < referenceRange> <observationRange> <text>0.6-1.0</text> </observationRange> </referenceRange> </observation > </component> <component> <observation moodCode="EVN" classCode="OBS"> <templateId root="216.840.1.556251.10..4.2" /> <id nullFlavor="NA" /> <code codeSystem="local" code="NA" displayName="SODIUM" /> <statusCode code="completed" /> < effectiveTime value="" /> <value unit="mmol/L" xsi:type="PQ " value="142" /> <referenceRange> <observationRange> <text>135-148</text> </observationRange> </ referenceRange> </observation> </component> <component> <observation moodCode="EVN" classCode="OBS"> <templateId root= "07.12.840.1.768167.03.15.22.4.2" /> <id nullFlavor="NA" /> < code codeSystem="local" code="CL" displayName="CHLORIDE" /> < statusCode code="completed" /> <effectiveTime value="" /> <value unit="mmol/L" xsi:type="PQ" value="109" /> < referenceRange> <observationRange> <text>98-110</text> </observationRange> </referenceRange> </observation> </component> <component> <observation moodCode="EVN" classCode ="OBS"> <templateId root="07.12.840.1.214578...4.2" /> < id nullFlavor="NA" /> <code codeSystem="local" code="CO2" displayName= "CARBON DIOXIDE" /> <statusCode code="completed" /> < effectiveTime value="" /> <value unit="mmol/L" xsi:type="PQ " value="28" /> <referenceRange> <observationRange> <text>21-32</text> </observationRange> </ referenceRange> </observation> </component> <component> <observation moodCode="EVN" classCode="OBS"> <templateId root= "216.840.1.486296.10...4.2" /> <id nullFlavor="NA" /> < code codeSystem="local" code="ALB" displayName="ALBUMIN" /> < statusCode code="completed" /> <effectiveTime value="" /> <value unit="gm/dL" xsi:type="PQ" value="2.9" /> < interpretationCode codeSystem="local" code="*" /> <referenceRange> <observationRange> <text>3.4-5.0</text> </ observationRange> </referenceRange> </observation> </ component> <component> <observation moodCode="EVN" classCode="OBS"> <templateId root="16.840.1.513197.03.15.22.4.2" /> <id nullFlavor="NA" /> <code codeSystem="local" code="PHOS" displayName= "PHOSPHORUS" /> <statusCode code="completed" /> < effectiveTime value="" /> <value unit="mg/dL" xsi:type="PQ " value="4.4" /> <referenceRange> <observationRange> <text>2.5-4.9</text> </observationRange> </ referenceRange> </observation> </component> </organizer> </entry > <entry> <organizer moodCode="EVN" classCode="BATTERY"> <templateId root="216.840.1.484262.10.4.1" /> <id nullFlavor="NA" /> <code codeSystem="local" code="MAG" displayName="MAGNESIUM" /> <statusCode code= "completed" /> <component> <observation moodCode="EVN" classCode= "OBS"> <templateId root="840.1.804299.03.15.22.4.2" /> < id nullFlavor="NA" /> <code codeSystem="local" code="MAG" displayName= "MAGNESIUM" /> <statusCode code="completed" /> <effectiveTime value="121728030941" /> <value unit="mg/dL" xsi:type="PQ" value="1.7" / > <interpretationCode codeSystem="local" code="*" /> < referenceRange> <observationRange> <text>1.8-2.4</text> </observationRange> </referenceRange> </observation > </component> </organizer> </entry> <entry> <organizer moodCode= "EVN" classCode="BATTERY"> <templateId root="840.1.319197.03.15.224.1 " /> <id nullFlavor="NA" /> <code codeSystem="local" code="UA" displayName="Urinalysis with reflex microscopic" /> <statusCode code= "completed" /> <component> <observation moodCode="EVN" classCode= "OBS"> <templateId root="840.1.512499.03.15.22.4.2" /> < id nullFlavor="NA" /> <code codeSystem="local" code="UAPP" displayName= "Appearance" /> <statusCode code="completed" /> < effectiveTime value="641521524816" /> <value unit="NA" xsi:type="PQ" value="Cloudy" /> <interpretationCode codeSystem="local" code="*" /> <referenceRange> <observationRange> <text /> </observationRange> </referenceRange> </observation> </component> <component> <observation moodCode="EVN" classCode= "OBS"> <templateId root="16.840.1.668717.10..4.2" /> < id nullFlavor="NA" /> <code codeSystem="local" code="UBIL" displayName= "Bilirubin" /> <statusCode code="completed" /> <effectiveTime value="" /> <value unit="NA" xsi:type="PQ" value="Negative " /> <referenceRange> <observationRange> <text> Negative</text> </observationRange> </referenceRange> </observation> </component> <component> <observation moodCode ="EVN" classCode="OBS"> <templateId root= "840.1.425481.03.15.224.2" /> <id nullFlavor="NA" /> < code codeSystem="local" code="UBLD" displayName="Blood" /> <statusCode code="completed" /> <effectiveTime value="339405703837" /> < value unit="NA" xsi:type="PQ" value="Pos 3+" /> <interpretationCode codeSystem="local" code="*" /> <referenceRange> < observationRange> <text>Negative</text> </ observationRange> </referenceRange> </observation> </ component> <component> <observation moodCode="EVN" classCode="OBS"> <templateId root="07.12.840.1.571260.03.15.224.2" /> <id nullFlavor="NA" /> <code codeSystem="local" code="UCOLR" displayName= "Color" /> <statusCode code="completed" /> <effectiveTime value="171311336008" /> <value unit="NA" xsi:type="PQ" value="Yellow" / > <referenceRange> <observationRange> <text /> </observationRange> </referenceRange> </observation > </component> <component> <observation moodCode="EVN" classCode="OBS"> <templateId root="07.12.840.1.957378.03.15.22.4.2" /> <id nullFlavor="NA" /> <code codeSystem="local" code="UGLU" displayName="Glucose, Urine" /> <statusCode code="completed" /> <effectiveTime value="353751323149" /> <value unit="" xsi:type="PQ" value="Negative" /> <referenceRange> <observationRange> <text>Negative</text> </observationRange> </ referenceRange> </observation> </component> <component> <observation moodCode="EVN" classCode="OBS"> <templateId root= "840.1.095526.03.15.22.4.2" /> <id nullFlavor="NA" /> < code codeSystem="local" code="UKET" displayName="Ketones" /> < statusCode code="completed" /> <effectiveTime value="535986255157" /> <value unit="" xsi:type="PQ" value="Negative" /> < referenceRange> <observationRange> <text>Negative</text > </observationRange> </referenceRange> </observation > </component> <component> <observation moodCode="EVN" classCode="OBS"> <templateId root="07.12.840.1.962344.03.15.22.4.2" /> <id nullFlavor="NA" /> <code codeSystem="local" code="ULEU" displayName="Leukocyte Esterase" /> <statusCode code="completed" /> <effectiveTime value="310339092782" /> <value unit="NA" xsi:type ="PQ" value="Negative" /> <referenceRange> <observationRange > <text>Negative</text> </observationRange> </ referenceRange> </observation> </component> <component> <observation moodCode="EVN" classCode="OBS"> <templateId root= "216.840.1.773805.03.15.22.4.2" /> <id nullFlavor="NA" /> < code codeSystem="local" code="UNIT" displayName="Nitrites" /> < statusCode code="completed" /> <effectiveTime value="821649042658" /> <value unit="NA" xsi:type="PQ" value="Negative" /> < referenceRange> <observationRange> <text>Negative</text > </observationRange> </referenceRange> </observation > </component> <component> <observation moodCode="EVN" classCode="OBS"> <templateId root="07.12.840.1.466047.03.15.22.4.2" /> <id nullFlavor="NA" /> <code codeSystem="local" code="UPH" displayName="pH" /> <statusCode code="completed" /> < effectiveTime value="808653525430" /> <value unit="NA" xsi:type="PQ" value="6.0" /> <referenceRange> <observationRange> <text>5.0-8.0</text> </observationRange> </ referenceRange> </observation> </component> <component> <observation moodCode="EVN" classCode="OBS"> <templateId root= "16.840.1.553580.03.15.22.4.2" /> <id nullFlavor="NA" /> < code codeSystem="local" code="UPRO" displayName="Protein" /> < statusCode code="completed" /> <effectiveTime value="748775188406" /> <value unit="NA" xsi:type="PQ" value="Pos 1+" /> < interpretationCode codeSystem="local" code="*" /> <referenceRange> <observationRange> <text>Negative</text> </ observationRange> </referenceRange> </observation> </ component> <component> <observation moodCode="EVN" classCode="OBS"> <templateId root="216.840.1.001162.10..22.4.2" /> <id nullFlavor="NA" /> <code codeSystem="local" code="USPG" displayName= "Specific [place]" /> <statusCode code="completed" /> < effectiveTime value="854770537903" /> <value unit="NA" xsi:type="PQ" value="1.020" /> <referenceRange> <observationRange> <text>1.003-1.030</text> </observationRange> </ referenceRange> </observation> </component> <component> <observation moodCode="EVN" classCode="OBS"> <templateId root= "16.840.1.480839.10..22.4.2" /> <id nullFlavor="NA" /> < code codeSystem="local" code="UTYP" displayName="UA Collection type" /> <statusCode code="completed" /> <effectiveTime value="630733459717" / > <value unit="NA" xsi:type="PQ" value="Clean Catch" /> < referenceRange> <observationRange> <text /> < /observationRange> </referenceRange> </observation> </ component> <component> <observation moodCode="EVN" classCode="OBS"> <templateId root="07.12.840.1.703574.10..4.2" /> <id nullFlavor="NA" /> <code codeSystem="local" code="UURO" displayName= "Urobilinogen" /> <statusCode code="completed" /> < effectiveTime value="621412336579" /> <value unit="mg/dL" xsi:type="PQ " value="Negative" /> <referenceRange> <observationRange> <text><1.0</text> </observationRange> </ referenceRange> </observation> </component> </organizer> </entry > <entry> <organizer moodCode="EVN" classCode="BATTERY"> <templateId root="07.12.840.1.607753.10.4.1" /> <id nullFlavor="NA" /> <code codeSystem="local" code="UMIC" displayName="Urine Microscopic" /> < statusCode code="completed" /> <component> <observation moodCode= "EVN" classCode="OBS"> <templateId root="07.12.840.1.617854.10..4.2 " /> <id nullFlavor="NA" /> <code codeSystem="local" code= "UBAC" displayName="Bacteria" /> <statusCode code="completed" /> <effectiveTime value="415262896927" /> <value unit="NA" xsi:type= "PQ" value="Rare" /> <referenceRange> <observationRange> <text /> </observationRange> </referenceRange> </observation> </component> <component> <observation moodCode="EVN" classCode="OBS"> <templateId root= "07.12.840.1.554096.10..4.2" /> <id nullFlavor="NA" /> < code codeSystem="local" code="UEPI" displayName="Epithelial Cells" /> < statusCode code="completed" /> <effectiveTime value="344246444571" /> <value unit="/HPF" xsi:type="PQ" value="5" /> <referenceRange > <observationRange> <text /> </ observationRange> </referenceRange> </observation> </ component> <component> <observation moodCode="EVN" classCode="OBS"> <templateId root="216.840.1.009548.10.20.22.4.2" /> <id nullFlavor="NA" /> <code codeSystem="local" code="URBC" displayName= "RBC, Urine" /> <statusCode code="completed" /> < effectiveTime value="806819667572" /> <value unit="/HPF" xsi:type="PQ" value=">50" /> <interpretationCode codeSystem="local" code="*" /> <referenceRange> <observationRange> <text>0-2</ text> </observationRange> </referenceRange> </ observation> </component> <component> <observation moodCode= "EVN" classCode="OBS"> <templateId root="216.840.1.751841.10.20.22.4.2 " /> <id nullFlavor="NA" /> <code codeSystem="local" code= "UWBC" displayName="WBC, Urine" /> <statusCode code="completed" /> <effectiveTime value="605134935075" /> <value unit="/HPF" xsi: type="PQ" value="0" /> <referenceRange> <observationRange> <text>0-4</text> </observationRange> </ referenceRange> </observation> </component> </organizer> </entry > <entry> <organizer moodCode="EVN" classCode="BATTERY"> <templateId root="16.840.1.597614.03.15.22.4.1" /> <id nullFlavor="NA" /> <code codeSystem="local" code="UPREG" displayName=" Screen, Urine" /> < statusCode code="completed" /> <component> <observation moodCode= "EVN" classCode="OBS"> <templateId root="840.1.504158.03.15.224.2 " /> <id nullFlavor="NA" /> <code codeSystem="local" code= "UPREG" displayName=" Screen, Urine" /> <statusCode code= "completed" /> <effectiveTime value="" /> <value unit="NA" xsi:type="PQ" value="Negative" /> <referenceRange> <observationRange> <text /> </observationRange> </referenceRange> </observation> </component> </organizer> < /entry> <entry> <organizer moodCode="EVN" classCode="BATTERY"> < templateId root="840.1.218141.03.15.22.4.1" /> <id nullFlavor="NA" /> <code codeSystem="local" code="CBCWD" displayName="CBC With Platelet and Differential" /> <statusCode code="completed" /> <component> < observation moodCode="EVN" classCode="OBS"> <templateId root= "07.12.840.1.757259.03.15.22.4.2" /> <id nullFlavor="NA" /> < code codeSystem="local" code="ABASR" displayName="Absolute Basophils" /> <statusCode code="completed" /> <effectiveTime value="089248705610" /> <value unit="10*3/uL" xsi:type="PQ" value="0.02" /> < referenceRange> <observationRange> <text>0.00-0.20</text > </observationRange> </referenceRange> </observation > </component> <component> <observation moodCode="EVN" classCode="OBS"> <templateId root="216.840.1.649078.10.20.22.4.2" /> <id nullFlavor="NA" /> <code codeSystem="local" code="AEOSR" displayName="Absolute Eosinophils" /> <statusCode code="completed" /> <effectiveTime value="794933043878" /> <value unit="10*3/uL" xsi:type="PQ" value="0.14" /> <referenceRange> < observationRange> <text>0.00-0.50</text> </ observationRange> </referenceRange> </observation> </ component> <component> <observation moodCode="EVN" classCode="OBS"> <templateId root="840.1.531544.10.20.4.2" /> <id nullFlavor="NA" /> <code codeSystem="local" code="ALYMR" displayName= "Absolute Lymphocytes" /> <statusCode code="completed" /> < effectiveTime value="207488149721" /> <value unit="10*3/uL" xsi:type= "PQ" value="1.48" /> <referenceRange> <observationRange> <text>0.80-3.30</text> </observationRange> </ referenceRange> </observation> </component> <component> <observation moodCode="EVN" classCode="OBS"> <templateId root= "07.12.840.1.935203.10.20.22.4.2" /> <id nullFlavor="NA" /> < code codeSystem="local" code="AMONR" displayName="Absolute Monocytes" /> <statusCode code="completed" /> <effectiveTime value="801839219122" /> <value unit="10*3/uL" xsi:type="PQ" value="0.40" /> < referenceRange> <observationRange> <text>0.30-1.00</text > </observationRange> </referenceRange> </observation > </component> <component> <observation moodCode="EVN" classCode="OBS"> <templateId root="216.840.1.095148.10..22.4.2" /> <id nullFlavor="NA" /> <code codeSystem="local" code="ASEGR" displayName="Absolute Neutrophils" /> <statusCode code="completed" /> <effectiveTime value="090737540879" /> <value unit="10*3/uL" xsi:type="PQ" value="2.51" /> <referenceRange> < observationRange> <text>1.90-7.00</text> </ observationRange> </referenceRange> </observation> </ component> <component> <observation moodCode="EVN" classCode="OBS"> <templateId root="216.840.1.848576.10...4.2" /> <id nullFlavor="NA" /> <code codeSystem="local" code="BASOR" displayName= "Basophils" /> <statusCode code="completed" /> <effectiveTime value="847249388718" /> <value unit="%" xsi:type="PQ" value="0" /> <referenceRange> <observationRange> <text>0-2< /text> </observationRange> </referenceRange> </ observation> </component> <component> <observation moodCode= "EVN" classCode="OBS"> <templateId root="216.840.1.045367.03.15.22.4.2 " /> <id nullFlavor="NA" /> <code codeSystem="local" code= "EOSR" displayName="Eosinophils" /> <statusCode code="completed" /> <effectiveTime value="100577349349" /> <value unit="%" xsi: type="PQ" value="3" /> <referenceRange> <observationRange> <text>0-4</text> </observationRange> </ referenceRange> </observation> </component> <component> <observation moodCode="EVN" classCode="OBS"> <templateId root= "2.16.840.1.189238.10..22.4.2" /> <id nullFlavor="NA" /> < code codeSystem="local" code="HCT" displayName="HCT" /> <statusCode code="completed" /> <effectiveTime value="" /> < value unit="%" xsi:type="PQ" value="38.1" /> <referenceRange> <observationRange> <text>37.0-47.0</text> </ observationRange> </referenceRange> </observation> </ component> <component> <observation moodCode="EVN" classCode="OBS"> <templateId root="2.16.840.1.622884.10..22.4.2" /> <id nullFlavor="NA" /> <code codeSystem="local" code="HGB" displayName="HGB " /> <statusCode code="completed" /> <effectiveTime value= "830017565530" /> <value unit="g/dL" xsi:type="PQ" value="11.9" /> <interpretationCode codeSystem="local" code="*" /> < referenceRange> <observationRange> <text>12.0-16.0</text > </observationRange> </referenceRange> </observation > </component> <component> <observation moodCode="EVN" classCode="OBS"> <templateId root="216.840.1.626442.10.4.2" /> <id nullFlavor="NA" /> <code codeSystem="local" code="IMGA" displayName="Immature Granulocytes" /> <statusCode code="completed" /> <effectiveTime value="" /> <value unit="%" xsi:type="PQ" value="0.0" /> <referenceRange> < observationRange> <text>0.0-1.0</text> </ observationRange> </referenceRange> </observation> </ component> <component> <observation moodCode="EVN" classCode="OBS"> <templateId root="07.12.840.1.530793.10.4.2" /> <id nullFlavor="NA" /> <code codeSystem="local" code="LYMPR" displayName= "Lymphocytes" /> <statusCode code="completed" /> < effectiveTime value="" /> <value unit="%" xsi:type="PQ " value="33" /> <referenceRange> <observationRange> <text>20-46</text> </observationRange> </ referenceRange> </observation> </component> <component> <observation moodCode="EVN" classCode="OBS"> <templateId root= "216.840.1.905424.10..4.2" /> <id nullFlavor="NA" /> < code codeSystem="local" code="MCH" displayName="MCH" /> <statusCode code="completed" /> <effectiveTime value="" /> < value unit="pg" xsi:type="PQ" value="27.8" /> <referenceRange> <observationRange> <text>27.0-32.0</text> </ observationRange> </referenceRange> </observation> </ component> <component> <observation moodCode="EVN" classCode="OBS"> <templateId root="07.12.840.1.942433.10.20.22.4.2" /> <id nullFlavor="NA" /> <code codeSystem="local" code="MCHC" displayName= "MCHC" /> <statusCode code="completed" /> <effectiveTime value ="053627731849" /> <value unit="g/dL" xsi:type="PQ" value="31.2" /> <interpretationCode codeSystem="local" code="*" /> < referenceRange> <observationRange> <text>32.0-36.0</text > </observationRange> </referenceRange> </observation > </component> <component> <observation moodCode="EVN" classCode="OBS"> <templateId root="07.12.840.1.954469.03.15.22.4.2" /> <id nullFlavor="NA" /> <code codeSystem="local" code="MCV" displayName="MCV" /> <statusCode code="completed" /> < effectiveTime value="505917936813" /> <value unit="fL" xsi:type="PQ" value="89.0" /> <referenceRange> <observationRange> <text>82.0-99.0</text> </observationRange> </ referenceRange> </observation> </component> <component> <observation moodCode="EVN" classCode="OBS"> <templateId root= "07.12.840.1.966548.10.20.22.4.2" /> <id nullFlavor="NA" /> < code codeSystem="local" code="MONOR" displayName="Monocytes" /> < statusCode code="completed" /> <effectiveTime value="" /> <value unit="%" xsi:type="PQ" value="9" /> <referenceRange > <observationRange> <text>4-11</text> </ observationRange> </referenceRange> </observation> </ component> <component> <observation moodCode="EVN" classCode="OBS"> <templateId root="216.840.1.892021.10..22.4.2" /> <id nullFlavor="NA" /> <code codeSystem="local" code="MPV" displayName="MPV " /> <statusCode code="completed" /> <effectiveTime value= "" /> <value unit="fL" xsi:type="PQ" value="9.4" /> <referenceRange> <observationRange> <text>9.4-12.4</ text> </observationRange> </referenceRange> </ observation> </component> <component> <observation moodCode= "EVN" classCode="OBS"> <templateId root="16.840.1.534233.10..22.4.2 " /> <id nullFlavor="NA" /> <code codeSystem="local" code= "SEGR" displayName="Neutrophils" /> <statusCode code="completed" /> <effectiveTime value="[id number]" /> <value unit="%" xsi: type="PQ" value="55" /> <referenceRange> <observationRange> <text>51-75</text> </observationRange> </ referenceRange> </observation> </component> <component> <observation moodCode="EVN" classCode="OBS"> <templateId root= "16.840.1.482934.22.4.2" /> <id nullFlavor="NA" /> < code codeSystem="local" code="NRBCA" displayName="Nucleated RBC Automated" /> <statusCode code="completed" /> <effectiveTime value= "" /> <value unit="/100WBC" xsi:type="PQ" value="0.0" /> <referenceRange> <observationRange> <text /> </observationRange> </referenceRange> </observation> </component> <component> <observation moodCode="EVN" classCode= "OBS"> <templateId root="216.840.1.590473.03.15.22.4.2" /> < id nullFlavor="NA" /> <code codeSystem="local" code="PLT" displayName= "Platelet Count" /> <statusCode code="completed" /> < effectiveTime value="" /> <value unit="K/uL" xsi:type="PQ" value="230" /> <referenceRange> <observationRange> <text>150-400</text> </observationRange> </ referenceRange> </observation> </component> <component> <observation moodCode="EVN" classCode="OBS"> <templateId root= "216.840.1.752954.03.15.22.4.2" /> <id nullFlavor="NA" /> < code codeSystem="local" code="RBC" displayName="RBC" /> <statusCode code="completed" /> <effectiveTime value="" /> < value unit="10*6/uL" xsi:type="PQ" value="4.28" /> <referenceRange> <observationRange> <text>4.00-5.20</text> </ observationRange> </referenceRange> </observation> </ component> <component> <observation moodCode="EVN" classCode="OBS"> <templateId root="216.840.1.019049.10...4.2" /> <id nullFlavor="NA" /> <code codeSystem="local" code="RDW" displayName="RDW " /> <statusCode code="completed" /> <effectiveTime value= "" /> <value unit="%" xsi:type="PQ" value="18.0" /> <interpretationCode codeSystem="local" code="*" /> < referenceRange> <observationRange> <text>11.5-14.5</text > </observationRange> </referenceRange> </observation > </component> <component> <observation moodCode="EVN" classCode="OBS"> <templateId root="07.12.840.1.439845.03.15.22.4.2" /> <id nullFlavor="NA" /> <code codeSystem="local" code="WBCIR" displayName="WBC" /> <statusCode code="completed" /> < effectiveTime value="" /> <value unit="K/uL" xsi:type="PQ" value="4.6" /> <interpretationCode codeSystem="local" code="*" /> <referenceRange> <observationRange> <text>4.8-10.8< /text> </observationRange> </referenceRange> </ observation> </component> </organizer> </entry> <entry> <organizer moodCode="EVN" classCode="BATTERY"> <templateId root= "216.840.1.874314.10..4.1" /> <id nullFlavor="NA" /> <code codeSystem="local" code="CMP" displayName="Comprehensive Metabolic Panel (CMP)" /> <statusCode code="completed" /> <component> <observation moodCode="EVN" classCode="OBS"> <templateId root= "216.840.1.182485.10..22.4.2" /> <id nullFlavor="NA" /> < code codeSystem="local" code="ALB" displayName="Albumin" /> < statusCode code="completed" /> <effectiveTime value="" /> <value unit="g/dL" xsi:type="PQ" value="3.7" /> < referenceRange> <observationRange> <text>3.5-4.8</text> </observationRange> </referenceRange> </observation > </component> <component> <observation moodCode="EVN" classCode="OBS"> <templateId root="16.840.1.919678...4.2" /> <id nullFlavor="NA" /> <code codeSystem="local" code="ALP" displayName="Alkaline Phosphatase" /> <statusCode code="completed" /> <effectiveTime value="" /> <value unit="U/L" xsi: type="PQ" value="62" /> <referenceRange> <observationRange> <text>26-104</text> </observationRange> </ referenceRange> </observation> </component> <component> <observation moodCode="EVN" classCode="OBS"> <templateId root= "16.840.1.015381.10...4.2" /> <id nullFlavor="NA" /> < code codeSystem="local" code="ALT" displayName="ALT (SGPT)" /> < statusCode code="completed" /> <effectiveTime value="" /> <value unit="U/L" xsi:type="PQ" value="18" /> <referenceRange > <observationRange> <text>14-54</text> </ observationRange> </referenceRange> </observation> </ component> <component> <observation moodCode="EVN" classCode="OBS"> <templateId root="16.840.1.347320.10...4.2" /> <id nullFlavor="NA" /> <code codeSystem="local" code="AGAP" displayName= "Anion Gap" /> <statusCode code="completed" /> <effectiveTime value="[id number]" /> <value unit="mEq/L" xsi:type="PQ" value="6" /> <referenceRange> <observationRange> <text>3-20 </text> </observationRange> </referenceRange> </ observation> </component> <component> <observation moodCode= "EVN" classCode="OBS"> <templateId root="07.12.840.1.426357.03.15.22.4.2 " /> <id nullFlavor="NA" /> <code codeSystem="local" code="AST " displayName="AST (SGOT)" /> <statusCode code="completed" /> <effectiveTime value="825572638181" /> <value unit="U/L" xsi:type="PQ" value="22" /> <referenceRange> <observationRange> <text>15-41</text> </observationRange> </referenceRange > </observation> </component> <component> <observation moodCode="EVN" classCode="OBS"> <templateId root= "07.12.840.1.602294....4.2" /> <id nullFlavor="NA" /> < code codeSystem="local" code="BILIT" displayName="Bilirubin Total" /> < statusCode code="completed" /> <effectiveTime value="153429158338" /> <value unit="mg/dL" xsi:type="PQ" value="0.5" /> < referenceRange> <observationRange> <text>0.2-1.2</text> </observationRange> </referenceRange> </observation > </component> <component> <observation moodCode="EVN" classCode="OBS"> <templateId root="216.840.1.626968.10.22.4.2" /> <id nullFlavor="NA" /> <code codeSystem="local" code="BUN" displayName="BUN" /> <statusCode code="completed" /> < effectiveTime value="189170436912" /> <value unit="mg/dL" xsi:type="PQ " value="10" /> <referenceRange> <observationRange> <text>4-20</text> </observationRange> </referenceRange > </observation> </component> <component> <observation moodCode="EVN" classCode="OBS"> <templateId root= "16.840.1.511044.03.15.22.4.2" /> <id nullFlavor="NA" /> < code codeSystem="local" code="CA" displayName="Calcium" /> <statusCode code="completed" /> <effectiveTime value="467969488061" /> < value unit="mg/dL" xsi:type="PQ" value="9.0" /> <referenceRange> <observationRange> <text>8.6-10.0</text> </ observationRange> </referenceRange> </observation> </ component> <component> <observation moodCode="EVN" classCode="OBS"> <templateId root="16.840.1.302912...22.4.2" /> <id nullFlavor="NA" /> <code codeSystem="local" code="CL" displayName= "Chloride" /> <statusCode code="completed" /> <effectiveTime value="741675020234" /> <value unit="mEq/L" xsi:type="PQ" value="106" / > <referenceRange> <observationRange> <text>99- 109</text> </observationRange> </referenceRange> </ observation> </component> <component> <observation moodCode= "EVN" classCode="OBS"> <templateId root="16.840.1.431245.10..4.2 " /> <id nullFlavor="NA" /> <code codeSystem="local" code="CO2 " displayName="CO2" /> <statusCode code="completed" /> < effectiveTime value="" /> <value unit="mEq/L" xsi:type="PQ " value="26" /> <referenceRange> <observationRange> <text>22-32</text> </observationRange> </ referenceRange> </observation> </component> <component> <observation moodCode="EVN" classCode="OBS"> <templateId root= "07.12.840.1.324535...4.2" /> <id nullFlavor="NA" /> < code codeSystem="local" code="CREAT" displayName="Creatinine" /> < statusCode code="completed" /> <effectiveTime value="" /> <value unit="mg/dL" xsi:type="PQ" value="0.61" /> < referenceRange> <observationRange> <text>0.44-1.03</text > </observationRange> </referenceRange> </observation > </component> <component> <observation moodCode="EVN" classCode="OBS"> <templateId root="07.12.840.1.559983.03.15.22.4.2" /> <id nullFlavor="NA" /> <code codeSystem="local" code="GLOB" displayName="Globulin" /> <statusCode code="completed" /> < effectiveTime value="" /> <value unit="g/dL" xsi:type="PQ" value="3.0" /> <referenceRange> <observationRange> <text>1.9-4.3</text> </observationRange> </ referenceRange> </observation> </component> <component> <observation moodCode="EVN" classCode="OBS"> <templateId root= "2.16.840.1.771803.03.15.22.4.2" /> <id nullFlavor="NA" /> < code codeSystem="local" code="GLU" displayName="Glucose" /> < statusCode code="completed" /> <effectiveTime value="" /> <value unit="mg/dL" xsi:type="PQ" value="91" /> < referenceRange> <observationRange> <text>70-100</text> </observationRange> </referenceRange> </observation> </component> <component> <observation moodCode="EVN" classCode ="OBS"> <templateId root="2.16.840.1.357833.03.15.22.4.2" /> < id nullFlavor="NA" /> <code codeSystem="local" code="K" displayName= "Potassium" /> <statusCode code="completed" /> <effectiveTime value="" /> <value unit="mEq/L" xsi:type="PQ" value="3.9" / > <referenceRange> <observationRange> <text>3.6 -5.1</text> </observationRange> </referenceRange> </ observation> </component> <component> <observation moodCode= "EVN" classCode="OBS"> <templateId root="840.1.336768.10.22.4.2 " /> <id nullFlavor="NA" /> <code codeSystem="local" code="TP " displayName="Protein" /> <statusCode code="completed" /> < effectiveTime value="" /> <value unit="g/dL" xsi:type="PQ" value="6.7" /> <referenceRange> <observationRange> <text>6.1-7.9</text> </observationRange> </ referenceRange> </observation> </component> <component> <observation moodCode="EVN" classCode="OBS"> <templateId root= "840.1.726756.03.15.22.4.2" /> <id nullFlavor="NA" /> < code codeSystem="local" code="NA" displayName="Sodium" /> <statusCode code="completed" /> <effectiveTime value="791080786180" /> < value unit="mEq/L" xsi:type="PQ" value="138" /> <referenceRange> <observationRange> <text>136-144</text> </ observationRange> </referenceRange> </observation> </ component> </organizer> </entry> <entry> <organizer moodCode="EVN" classCode="BATTERY"> <templateId root="840.1.386688.1022.4.1" /> <id nullFlavor="NA" /> <code codeSystem="local" code="GFR" displayName ="eGFR" /> <statusCode code="completed" /> <component> < observation moodCode="EVN" classCode="OBS"> <templateId root= "840.1.713283.1022.4.2" /> <id nullFlavor="NA" /> < code codeSystem="local" code="GFR" displayName="eGFR" /> <statusCode code="completed" /> <effectiveTime value="250516151235" /> < value unit="mL/min" xsi:type="PQ" value=">60" /> <referenceRange> <observationRange> <text>>60</text> </ observationRange> </referenceRange> </observation> </ component> </organizer> </entry> <entry> <organizer moodCode="EVN" classCode="BATTERY"> <templateId root="16.840.1.693402.10..4.1" /> <id nullFlavor="NA" /> <code codeSystem="local" code="CBCD" displayName="CBC W/DIFF" /> <statusCode code="completed" /> <component > <observation moodCode="EVN" classCode="OBS"> <templateId root= "16.840.1.963653.10..22.4.2" /> <id nullFlavor="NA" /> < code codeSystem="local" code="BA#" displayName="BASOPHIL #" /> < statusCode code="completed" /> <effectiveTime value="585563542000" /> <value unit="k/cumm" xsi:type="PQ" value="0.0" /> < referenceRange> <observationRange> <text>0.0-0.2</text> </observationRange> </referenceRange> </observation > </component> <component> <observation moodCode="EVN" classCode="OBS"> <templateId root="16.840.1.574156.10.20.22.4.2" /> <id nullFlavor="NA" /> <code codeSystem="local" code="BA% " displayName="BASOPHIL %" /> <statusCode code="completed" /> <effectiveTime value="747213269418" /> <value unit="%" xsi: type="PQ" value="1" /> <referenceRange> <observationRange> <text>0-1</text> </observationRange> </ referenceRange> </observation> </component> <component> <observation moodCode="EVN" classCode="OBS"> <templateId root= "2.16.840.1.190229.10.20.22.4.2" /> <id nullFlavor="NA" /> < code codeSystem="local" code="EO#" displayName="EOSINOPHIL #" /> < statusCode code="completed" /> <effectiveTime value="115861195671" /> <value unit="k/cumm" xsi:type="PQ" value="0.1" /> < referenceRange> <observationRange> <text>0.1-0.5</text> </observationRange> </referenceRange> </observation > </component> <component> <observation moodCode="EVN" classCode="OBS"> <templateId root="2.16.840.1.710108.10.20.22.4.2" /> <id nullFlavor="NA" /> <code codeSystem="local" code="EO% " displayName="EOSINOPHIL %" /> <statusCode code="completed" /> <effectiveTime value="618768282277" /> <value unit="%" xsi: type="PQ" value="1" /> <interpretationCode codeSystem="local" code="*" /> <referenceRange> <observationRange> <text>2- 4</text> </observationRange> </referenceRange> </ observation> </component> <component> <observation moodCode= "EVN" classCode="OBS"> <templateId root="07.12.840.1.921840.10.2022.4.2 " /> <id nullFlavor="NA" /> <code codeSystem="local" code="GR# " displayName="GRANULOCYTE #" /> <statusCode code="completed" /> <effectiveTime value="" /> <value unit="k/cumm" xsi: type="PQ" value="3.2" /> <referenceRange> <observationRange > <text>2.0-9.0</text> </observationRange> </ referenceRange> </observation> </component> <component> <observation moodCode="EVN" classCode="OBS"> <templateId root= "07.12.840.1.751410.22.4.2" /> <id nullFlavor="NA" /> < code codeSystem="local" code="GR%" displayName="GRANULOCYTE %" /> <statusCode code="completed" /> <effectiveTime value=" " /> <value unit="%" xsi:type="PQ" value="51" /> < referenceRange> <observationRange> <text>50-75</text> </observationRange> </referenceRange> </observation> </component> <component> <observation moodCode="EVN" classCode= "OBS"> <templateId root="07.12.840.1.634147.10.2022.4.2" /> < id nullFlavor="NA" /> <code codeSystem="local" code="LY#" displayName= "LYMPHOCYTE #" /> <statusCode code="completed" /> < effectiveTime value="" /> <value unit="k/cumm" xsi:type="PQ " value="2.4" /> <referenceRange> <observationRange> <text>1.0-4.0</text> </observationRange> </ referenceRange> </observation> </component> <component> <observation moodCode="EVN" classCode="OBS"> <templateId root= "07.12.840.1.782712.10.20.22.4.2" /> <id nullFlavor="NA" /> < code codeSystem="local" code="LY%" displayName="LYMPHOCYTE %" /> <statusCode code="completed" /> <effectiveTime value="939582064469" /> <value unit="%" xsi:type="PQ" value="39" /> < interpretationCode codeSystem="local" code="*" /> <referenceRange> <observationRange> <text>20-30</text> </ observationRange> </referenceRange> </observation> </ component> <component> <observation moodCode="EVN" classCode="OBS"> <templateId root="840.1.234729.10.2022.4.2" /> <id nullFlavor="NA" /> <code codeSystem="local" code="MCH" displayName= "MEAN CELL HGB" /> <statusCode code="completed" /> < effectiveTime value="050027841255" /> <value unit="pg" xsi:type="PQ" value="27.5" /> <referenceRange> <observationRange> <text>27.0-33.0</text> </observationRange> </ referenceRange> </observation> </component> <component> <observation moodCode="EVN" classCode="OBS"> <templateId root= "07.12.840.1.193927.10.20.22.4.2" /> <id nullFlavor="NA" /> < code codeSystem="local" code="MCHC" displayName="MEAN CELL HGB CONCENTRATION" / > <statusCode code="completed" /> <effectiveTime value= "" /> <value unit="g/dL" xsi:type="PQ" value="31.1" /> <interpretationCode codeSystem="local" code="*" /> < referenceRange> <observationRange> <text>32.0-37.0</text > </observationRange> </referenceRange> </observation > </component> <component> <observation moodCode="EVN" classCode="OBS"> <templateId root="216.840.1.332467.10.20.22.4.2" /> <id nullFlavor="NA" /> <code codeSystem="local" code="MCV" displayName="MEAN CELL VOLUME" /> <statusCode code="completed" /> <effectiveTime value="" /> <value unit="fl" xsi:type= "PQ" value="88.2" /> <referenceRange> <observationRange> <text>80.0-100.0</text> </observationRange> </ referenceRange> </observation> </component> <component> <observation moodCode="EVN" classCode="OBS"> <templateId root= "216.840.1.858158.10.20.22.4.2" /> <id nullFlavor="NA" /> < code codeSystem="local" code="MO#" displayName="MONOCYTE #" /> < statusCode code="completed" /> <effectiveTime value="" /> <value unit="k/cumm" xsi:type="PQ" value="0.5" /> < referenceRange> <observationRange> <text>0.1-1.0</text> </observationRange> </referenceRange> </observation > </component> <component> <observation moodCode="EVN" classCode="OBS"> <templateId root="16.840.1.010208.10.20.22.4.2" /> <id nullFlavor="NA" /> <code codeSystem="local" code="MO% " displayName="MONOCYTE %" /> <statusCode code="completed" /> <effectiveTime value="" /> <value unit="%" xsi: type="PQ" value="8" /> <interpretationCode codeSystem="local" code="*" /> <referenceRange> <observationRange> <text>4- 6</text> </observationRange> </referenceRange> </ observation> </component> <component> <observation moodCode= "EVN" classCode="OBS"> <templateId root="07.12.840.1.581798.10.22.4.2 " /> <id nullFlavor="NA" /> <code codeSystem="local" code= "MPVT" displayName="MEAN PLATELET VOLUME" /> <statusCode code= "completed" /> <effectiveTime value="" /> <value unit="fl" xsi:type="PQ" value="9.2" /> <referenceRange> < observationRange> <text>8.5-10.9</text> </ observationRange> </referenceRange> </observation> </ component> <component> <observation moodCode="EVN" classCode="OBS"> <templateId root="07.12.840.1.978038.10.20.22.4.2" /> <id nullFlavor="NA" /> <code codeSystem="local" code="RBC" displayName=" RED BLOOD CELL" /> <statusCode code="completed" /> < effectiveTime value="" /> <value unit="m/cumm" xsi:type="PQ " value="3.97" /> <interpretationCode codeSystem="local" code="*" /> <referenceRange> <observationRange> <text>4.00- 6.00</text> </observationRange> </referenceRange> </ observation> </component> <component> <observation moodCode= "EVN" classCode="OBS"> <templateId root="216.840.1.726237.10..22.4.2 " /> <id nullFlavor="NA" /> <code codeSystem="local" code="RDW " displayName="RED CELL DISTRIBUTION WIDTH" /> <statusCode code= "completed" /> <effectiveTime value="565546589946" /> <value unit="%" xsi:type="PQ" value="13.3" /> <referenceRange> <observationRange> <text>11.0-15.6</text> </ observationRange> </referenceRange> </observation> </ component> <component> <observation moodCode="EVN" classCode="OBS"> <templateId root="07.12.840.1.949981.10..4.2" /> <id nullFlavor="NA" /> <code codeSystem="local" code="WBC" displayName= "WHITE BLOOD CELL" /> <statusCode code="completed" /> < effectiveTime value="326387730810" /> <value unit="k/cumm" xsi:type="PQ " value="6.2" /> <referenceRange> <observationRange> <text>5.0-10.0</text> </observationRange> </ referenceRange> </observation> </component> <component> <observation moodCode="EVN" classCode="OBS"> <templateId root= "07.12.840.1.492207.10.20.22.4.2" /> <id nullFlavor="NA" /> < code codeSystem="local" code="HGBT" displayName="HEMOGLOBIN" /> < statusCode code="completed" /> <effectiveTime value="" /> <value unit="gm/dL" xsi:type="PQ" value="10.9" /> < interpretationCode codeSystem="local" code="*" /> <referenceRange> <observationRange> <text>12.0-16.0</text> </ observationRange> </referenceRange> </observation> </ component> <component> <observation moodCode="EVN" classCode="OBS"> <templateId root="2.16.840.1.867814.10.20.22.4.2" /> <id nullFlavor="NA" /> <code codeSystem="local" code="HCTT" displayName= "HEMATOCRIT" /> <statusCode code="completed" /> < effectiveTime value="" /> <value unit="%" xsi:type="PQ " value="35.0" /> <interpretationCode codeSystem="local" code="*" /> <referenceRange> <observationRange> <text>37.0- 47.0</text> </observationRange> </referenceRange> </ observation> </component> <component> <observation moodCode= "EVN" classCode="OBS"> <templateId root="2.16.840.1.494989.10.20.22.4.2 " /> <id nullFlavor="NA" /> <code codeSystem="local" code= "PLTT" displayName="PLATELET COUNT" /> <statusCode code="completed" /> <effectiveTime value="" /> <value unit="k/cumm" xsi:type="PQ" value="212" /> <referenceRange> < observationRange> <text>150-400</text> </ observationRange> </referenceRange> </observation> </ component> </organizer> </entry> <entry> <organizer moodCode="EVN" classCode="BATTERY"> <templateId root="16.840.1.432177.10..22.4.1" /> <id nullFlavor="NA" /> <code codeSystem="local" code="METABC" displayName="METABOLIC PANEL, COMPREHN" /> <statusCode code="completed" /> <component> <observation moodCode="EVN" classCode="OBS"> < templateId root="16.840.1.592734.10..22.4.2" /> <id nullFlavor="NA " /> <code codeSystem="local" code="K" displayName="POTASSIUM" /> <statusCode code="completed" /> <effectiveTime value=" " /> <value unit="mmol/L" xsi:type="PQ" value="3.2" /> < interpretationCode codeSystem="local" code="*" /> <referenceRange> <observationRange> <text>3.5-5.3</text> </ observationRange> </referenceRange> </observation> </ component> <component> <observation moodCode="EVN" classCode="OBS"> <templateId root="16.840.1.936805....4.2" /> <id nullFlavor="NA" /> <code codeSystem="local" code="eGFR" displayName= "EST GFR (MDRD)" /> <statusCode code="completed" /> < effectiveTime value="" /> <value unit="mL/min" xsi:type="PQ " value="> 60" /> <referenceRange> <observationRange> <text>> 59</text> </observationRange> </ referenceRange> </observation> </component> <component> <observation moodCode="EVN" classCode="OBS"> <templateId root= "216.840.1.366944.10.20.22.4.2" /> <id nullFlavor="NA" /> < code codeSystem="local" code="GAP" displayName="ANION GAP" /> < statusCode code="completed" /> <effectiveTime value="" /> <value unit="mmol/L" xsi:type="PQ" value="8" /> < referenceRange> <observationRange> <text>5-15</text> </observationRange> </referenceRange> </observation> </component> <component> <observation moodCode="EVN" classCode= "OBS"> <templateId root="216.840.1.271975.10..22.4.2" /> < id nullFlavor="NA" /> <code codeSystem="local" code="eCrCl" displayName ="EST CrCl (CG)" /> <statusCode code="completed" /> < effectiveTime value="" /> <value unit="mL/min" xsi:type="PQ " value="> 60" /> <referenceRange> <observationRange> <text>> 59</text> </observationRange> </ referenceRange> </observation> </component> <component> <observation moodCode="EVN" classCode="OBS"> <templateId root= "216.840.1.016608.10..22.4.2" /> <id nullFlavor="NA" /> < code codeSystem="local" code="GLU" displayName="GLUCOSE" /> < statusCode code="completed" /> <effectiveTime value="" /> <value unit="mg/dL" xsi:type="PQ" value="89" /> < referenceRange> <observationRange> <text>70-99</text> </observationRange> </referenceRange> </observation> </component> <component> <observation moodCode="EVN" classCode= "OBS"> <templateId root="216.840.1.667281.1022.4.2" /> < id nullFlavor="NA" /> <code codeSystem="local" code="CA" displayName= "CALCIUM" /> <statusCode code="completed" /> <effectiveTime value="" /> <value unit="mg/dL" xsi:type="PQ" value="8.3" / > <interpretationCode codeSystem="local" code="*" /> < referenceRange> <observationRange> <text>8.5-10.1</text > </observationRange> </referenceRange> </observation > </component> <component> <observation moodCode="EVN" classCode="OBS"> <templateId root="16.840.1.387886.03.15.22.4.2" /> <id nullFlavor="NA" /> <code codeSystem="local" code="BUN" displayName="BLOOD UREA NITROGEN" /> <statusCode code="completed" /> <effectiveTime value="" /> <value unit="mg/dL" xsi: type="PQ" value="7" /> <referenceRange> <observationRange> <text>7-20</text> </observationRange> </ referenceRange> </observation> </component> <component> <observation moodCode="EVN" classCode="OBS"> <templateId root= "216.840.1.665061.10.22.4.2" /> <id nullFlavor="NA" /> < code codeSystem="local" code="CREAT" displayName="CREATININE" /> < statusCode code="completed" /> <effectiveTime value="" /> <value unit="mg/dL" xsi:type="PQ" value="0.9" /> < referenceRange> <observationRange> <text>0.6-1.0</text> </observationRange> </referenceRange> </observation > </component> <component> <observation moodCode="EVN" classCode="OBS"> <templateId root="216.840.1.598327.10.22.4.2" /> <id nullFlavor="NA" /> <code codeSystem="local" code="NA" displayName="SODIUM" /> <statusCode code="completed" /> < effectiveTime value="" /> <value unit="mmol/L" xsi:type="PQ " value="140" /> <referenceRange> <observationRange> <text>135-148</text> </observationRange> </ referenceRange> </observation> </component> <component> <observation moodCode="EVN" classCode="OBS"> <templateId root= "07.12.840.1.966328.03.15.22.4.2" /> <id nullFlavor="NA" /> < code codeSystem="local" code="CL" displayName="CHLORIDE" /> < statusCode code="completed" /> <effectiveTime value="" /> <value unit="mmol/L" xsi:type="PQ" value="105" /> < referenceRange> <observationRange> <text>98-110</text> </observationRange> </referenceRange> </observation> </component> <component> <observation moodCode="EVN" classCode ="OBS"> <templateId root="07.12.840.1.703845.10.2022.4.2" /> < id nullFlavor="NA" /> <code codeSystem="local" code="AST" displayName= "AST/SGOT" /> <statusCode code="completed" /> <effectiveTime value="" /> <value unit="Units/L" xsi:type="PQ" value="17" /> <referenceRange> <observationRange> <text>10 -37</text> </observationRange> </referenceRange> </ observation> </component> <component> <observation moodCode= "EVN" classCode="OBS"> <templateId root="216.840.1.448475...4.2 " /> <id nullFlavor="NA" /> <code codeSystem="local" code="ALT " displayName="ALT/SGPT" /> <statusCode code="completed" /> < effectiveTime value="" /> <value unit="Units/L" xsi:type= "PQ" value="24" /> <referenceRange> <observationRange> <text>< 66</text> </observationRange> </ referenceRange> </observation> </component> <component> <observation moodCode="EVN" classCode="OBS"> <templateId root= "16.840.1.558780.03.15.22.4.2" /> <id nullFlavor="NA" /> < code codeSystem="local" code="CO2" displayName="CARBON DIOXIDE" /> < statusCode code="completed" /> <effectiveTime value="092917756297" /> <value unit="mmol/L" xsi:type="PQ" value="27" /> < referenceRange> <observationRange> <text>21-32</text> </observationRange> </referenceRange> </observation> </component> <component> <observation moodCode="EVN" classCode= "OBS"> <templateId root="07.12.840.1.217001.03.15.22.4.2" /> < id nullFlavor="NA" /> <code codeSystem="local" code="TP" displayName= "TOTAL PROTEIN" /> <statusCode code="completed" /> < effectiveTime value="" /> <value unit="gm/dL" xsi:type="PQ " value="6.7" /> <referenceRange> <observationRange> <text>6.4-8.2</text> </observationRange> </ referenceRange> </observation> </component> <component> <observation moodCode="EVN" classCode="OBS"> <templateId root= "2.16.840.1.396382.10..4.2" /> <id nullFlavor="NA" /> < code codeSystem="local" code="ALB" displayName="ALBUMIN" /> < statusCode code="completed" /> <effectiveTime value="" /> <value unit="gm/dL" xsi:type="PQ" value="3.4" /> < referenceRange> <observationRange> <text>3.4-5.0</text> </observationRange> </referenceRange> </observation > </component> <component> <observation moodCode="EVN" classCode="OBS"> <templateId root="216.840.1.539566.10..4.2" /> <id nullFlavor="NA" /> <code codeSystem="local" code="BILTOT" displayName="BILI TOTAL" /> <statusCode code="completed" /> < effectiveTime value="" /> <value unit="mg/dL" xsi:type="PQ " value="0.1" /> <referenceRange> <observationRange> <text>0.0-1.0</text> </observationRange> </ referenceRange> </observation> </component> <component> <observation moodCode="EVN" classCode="OBS"> <templateId root= "216.840.1.726222.10..22.4.2" /> <id nullFlavor="NA" /> < code codeSystem="local" code="ALKP" displayName="ALKALINE PHOSPHATASE TOTAL" /> <statusCode code="completed" /> <effectiveTime value= "" /> <value unit="IU/L" xsi:type="PQ" value="85" /> <referenceRange> <observationRange> <text>45-117</ text> </observationRange> </referenceRange> </ observation> </component> </organizer> </entry> <entry> <organizer moodCode="EVN" classCode="BATTERY"> <templateId root= "216.840.1.177277.10..22.4.1" /> <id nullFlavor="NA" /> <code codeSystem="local" code="LIP" displayName="LIPASE" /> <statusCode code= "completed" /> <component> <observation moodCode="EVN" classCode= "OBS"> <templateId root="216.840.1.045112.10..22.4.2" /> < id nullFlavor="NA" /> <code codeSystem="local" code="LIP" displayName= "LIPASE" /> <statusCode code="completed" /> <effectiveTime value="719228145963" /> <value unit="Units/L" xsi:type="PQ" value="129 " /> <referenceRange> <observationRange> <text> 73-393</text> </observationRange> </referenceRange> < /observation> </component> </organizer> </entry> <entry> < organizer moodCode="EVN" classCode="BATTERY"> <templateId root= "840.1.077253.10..22.4.1" /> <id nullFlavor="NA" /> <code codeSystem="local" code="PREGU" displayName="UR TEST" /> < statusCode code="completed" /> <component> <observation moodCode= "EVN" classCode="OBS"> <templateId root="07.12.840.1.784541.03.15.22.4.2 " /> <id nullFlavor="NA" /> <code codeSystem="local" code= "PREGU" displayName="UR TEST" /> <statusCode code="completed " /> <effectiveTime value="806890089620" /> <value unit="" xsi :type="PQ" value="NEGATIVE" /> <referenceRange> < observationRange> <text>NEGATIVE</text> </ observationRange> </referenceRange> </observation> </ component> </organizer> </entry> <entry> <organizer moodCode="EVN" classCode="BATTERY"> <templateId root="16.840.1.907713.03.15.22.4.1" /> <id nullFlavor="NA" /> <code codeSystem="local" code="UA" displayName= "URINALYSIS, ROUTINE" /> <statusCode code="completed" /> <component> <observation moodCode="EVN" classCode="OBS"> <templateId root= "216.840.1.593665.10.22.4.2" /> <id nullFlavor="NA" /> < code codeSystem="local" code="COMU" displayName="UA COMMENT" /> < statusCode code="completed" /> <effectiveTime value="608904724315" /> <value unit="" xsi:type="PQ" value="" /> <referenceRange> <observationRange> <text /> </ observationRange> </referenceRange> </observation> </ component> <component> <observation moodCode="EVN" classCode="OBS"> <templateId root="2.16.840.1.008451.10.4.2" /> <id nullFlavor="NA" /> <code codeSystem="local" code="SPGRU" displayName= "UA SPECIFIC GRAVITY" /> <statusCode code="completed" /> < effectiveTime value="670197781206" /> <value unit="" xsi:type="PQ" value="1.021" /> <referenceRange> <observationRange> <text>1.015-1.025</text> </observationRange> </ referenceRange> </observation> </component> </organizer> </entry > <entry> <organizer moodCode="EVN" classCode="BATTERY"> <templateId root="216.840.1.294944.10..22.4.1" /> <id nullFlavor="NA" /> <code codeSystem="local" code="UAMICRO" displayName="UA MICROSCOPIC" /> < statusCode code="completed" /> <component> <observation moodCode= "EVN" classCode="OBS"> <templateId root="2.16.840.1.764288.10..22.4.2 " /> <id nullFlavor="NA" /> <code codeSystem="local" code= "BACU" displayName="UA BACTERIA" /> <statusCode code="completed" /> <effectiveTime value="790913680270" /> <value unit="" xsi:type= "PQ" value="1+" /> <referenceRange> <observationRange> <text>NEGATIVE</text> </observationRange> </ referenceRange> </observation> </component> <component> <observation moodCode="EVN" classCode="OBS"> <templateId root= "16.840.1.984526.10..22.4.2" /> <id nullFlavor="NA" /> < code codeSystem="local" code="EPIU" displayName="UA EPITHELIAL CELLS" /> <statusCode code="completed" /> <effectiveTime value="080634067302" /> <value unit="epi/hpf" xsi:type="PQ" value="2+" /> < referenceRange> <observationRange> <text>0 - 1+</text> </observationRange> </referenceRange> </observation> </component> <component> <observation moodCode="EVN" classCode ="OBS"> <templateId root="07.12.840.1.243875.10..4.2" /> < id nullFlavor="NA" /> <code codeSystem="local" code="RBCU" displayName= "UA RBC" /> <statusCode code="completed" /> <effectiveTime value="887462231807" /> <value unit="rbc/hpf" xsi:type="PQ" value= "PACKED FIELD" /> <referenceRange> <observationRange> <text>0 - 3</text> </observationRange> </ referenceRange> </observation> </component> <component> <observation moodCode="EVN" classCode="OBS"> <templateId root= "07.12.840.1.828738.10..22.4.2" /> <id nullFlavor="NA" /> < code codeSystem="local" code="UAVOL" displayName="UA VOLUME FOR EXAM" /> <statusCode code="completed" /> <effectiveTime value="084328600110" /> <value unit="mL" xsi:type="PQ" value="12.0" /> < referenceRange> <observationRange> <text>(12mL STD)</ text> </observationRange> </referenceRange> </ observation> </component> <component> <observation moodCode= "EVN" classCode="OBS"> <templateId root="216.840.1.032954.10.4.2 " /> <id nullFlavor="NA" /> <code codeSystem="local" code= "WBCU" displayName="UA WBC" /> <statusCode code="completed" /> <effectiveTime value="316624233616" /> <value unit="wbc/hpf" xsi:type ="PQ" value="20-50" /> <referenceRange> <observationRange> <text>0 - 5</text> </observationRange> </ referenceRange> </observation> </component> <component> <observation moodCode="EVN" classCode="OBS"> <templateId root= "216.840.1.550547.03.15.22.4.2" /> <id nullFlavor="NA" /> < code codeSystem="local" code="WBCCLUMPS" displayName="WBC CLUMPS" /> < statusCode code="completed" /> <effectiveTime value="344544476305" /> <value unit="" xsi:type="PQ" value="PRESENT" /> < referenceRange> <observationRange> <text>NEGATIVE</text > </observationRange> </referenceRange> </observation > </component> </organizer> </entry> <entry> <organizer moodCode= "EVN" classCode="BATTERY"> <templateId root="216.840.1.736927.10...4.1 " /> <id nullFlavor="NA" /> <code codeSystem="local" code="UC" displayName="URINE CULTURE" /> <statusCode code="completed" /> < component> <observation moodCode="EVN" classCode="OBS"> < templateId root="2.16.840.1.425957.10.20.22.4.2" /> <id nullFlavor="NA " /> <code codeSystem="local" code="MB" displayName="Microbiology" /> <statusCode code="completed" /> <effectiveTime value= "826048430608" /> <value xsi:type="ST" value="<pre><b>URINE CULTURE</b > See BelowURINE CULTURE(F) Red Date/Time: 01/31/2017 19:48 Matty Date/Time: 02/02/2017 12:56SOURCE: URINESPEC DESC: CLEAN CATCHTREATMENT OF ASYMPTOMATIC BACTERIURIA IS NOT USUALLYCLINICALLY INDICATED.MIXED POS AND NEG?MIXED GRAM POSITIVE AND NEGATIVE BACTERIAGROUP B STREP?.INCLUDING [facility] [place] [address]</pre>" /> <referenceRange> <observationRange> <text /> </observationRange> </referenceRange> </observation> </component> </organizer> </entry> <entry> < organizer moodCode="EVN" classCode="BATTERY"> <templateId root= "2.16.840.1.464967.10..22.4.1" /> <id nullFlavor="NA" /> <code codeSystem="local" code="WET" displayName="WET MOUNT" /> <statusCode code= "completed" /> <component> <observation moodCode="EVN" classCode= "OBS"> <templateId root="2.16.840.1.308606.10.20.22.4.2" /> < id nullFlavor="NA" /> <code codeSystem="local" code="MB" displayName= "Microbiology" /> <statusCode code="completed" /> < effectiveTime value="593654272999" /> <value xsi:type="ST" value="<pre> <b>WET MOUNT</b> See BelowWET MOUNT(F) Red Date/Time: 2016 21:20 Matty Date/Time: 01/31/2017 22:21SOURCE : CERVIXSPEC DESC: CLUE CELLSNO CLUE CELLS SEENTRICHOMONASNO TRICHOMONAS SEENYEASTNO YEAST [address] [address]</pre> " /> <referenceRange> <observationRange> <text /> </observationRange> </referenceRange> </ observation> </component> </organizer> </entry> <entry> <organizer moodCode="EVN" classCode="BATTERY"> <templateId root= "2.16.840.1.372383.10.20.22.4.1" /> <id nullFlavor="NA" /> <code codeSystem="local" code="CHL" displayName="CHLAMYDIA DNA BY PCR" /> < statusCode code="completed" /> <component> <observation moodCode= "EVN" classCode="OBS"> <templateId root="2.16.840.1.820115.10.20.22.4.2 " /> <id nullFlavor="NA" /> <code codeSystem="local" code="MB " displayName="Microbiology" /> <statusCode code="completed" /> <effectiveTime value="032761146432" /> <value xsi:type="ST" value="< pre><b>CHLAMYDIA DNA BY PCR - GONORRHOEA DNA BY PCR</b> See BelowCHLAMYDIA DNA BY PCR(F) Red Date/Time: 01/31/2017 21:20 Matty Date/Time: 02/01/2017 11:13SOURCE: CERVIXSPEC DESC: [address] [address]Tat BelowGONORRHOEA DNA BY PCR(F) Red Date/Time: 01/31/2017 21:20 Matty Date/ Time: 02/01/2017 11:13SOURCE: CERVIXSPEC DESC: [address] [address]</pre>" /> <referenceRange> <observationRange> <text /> </observationRange> </referenceRange> </observation> </component> </organizer > </entry> <entry> <organizer moodCode="EVN" classCode="BATTERY"> < templateId root="216.840.1.000801.10.20.22.4.1" /> <id nullFlavor="NA" /> <code codeSystem="local" code="WET" displayName="WET MOUNT" /> < statusCode code="completed" /> <component> <observation moodCode= "EVN" classCode="OBS"> <templateId root="07.12.840.1.042659.10..22.4.2 " /> <id nullFlavor="NA" /> <code codeSystem="local" code="MB " displayName="Microbiology" /> <statusCode code="completed" /> <effectiveTime value="630508285836" /> <value xsi:type="ST" value="< pre><b>WET MOUNT</b> See BelowWET SMITH(F) Red Date/Time: 05/2016 19:30 Matty Date/Time: 02/24/2017 21: 47SOURCE: CERVIXSPEC DESC: CLUE CELLSNO CLUE CELLS SEENTRICHOMONASNO TRICHOMONAS SEENWBCRARE WBCYEASTNO YEAST [facility] [place] [address]</pre>" /> <referenceRange> < observationRange> <text /> </observationRange> </referenceRange> </observation> </component> </organizer> </ entry> <entry> <organizer moodCode="EVN" classCode="BATTERY"> < templateId root="07.12.840.1.814464.10.20.22.4.1" /> <id nullFlavor="NA" /> <code codeSystem="local" code="GRAM" displayName="GRAM STAIN - CHLAMYDIA DNA BY PCR" /> <statusCode code="completed" /> <component> < observation moodCode="EVN" classCode="OBS"> <templateId root= "2.16.840.1.165416.10..22.4.2" /> <id nullFlavor="NA" /> < code codeSystem="local" code="MB" displayName="Microbiology" /> < statusCode code="completed" /> <effectiveTime value="" /> <value xsi:type="ST" value="<pre><b>GRAM STAIN - CHLAMYDIA DNA BY PCR - GONORRHOEA DNA BY PCR</b> See BelowGRAM STAIN(F) Red Date/ Time: 02/24/2017 19:30 Matty Date/Time: 02/25/2017 11:14SOURCE: CERVIXSPEC DESC: GRAM STAINRARE NEUTROPHILSNO NORMAL SHAN PRESENTNO ORGANISMS SEEN RESEMBLING NEISSERIA GONORRHOEAE[address] [address]Bns BelowCHLAMYDIA DNA BY PCR(F) Red Date/Time: 02/24/2017 19:30 Matty Date/Time: 02/25/2017 11:14SOURCE: CERVIXSPEC DESC: [address] [address]Hjy BelowGONORRHOEA DNA BY PCR(F) Red Date/Time : 02/24/2017 19:30 Matty Date/Time: 02/25/2017 11: 14SOURCE: CERVIXSPEC DESC: [address] [address]</pre>" /> <referenceRange> < observationRange> <text /> </observationRange> </referenceRange> </observation> </component> </organizer> </ entry> <entry> <organizer moodCode="EVN" classCode="BATTERY"> < templateId root="2.16.840.1.396966.10..22.4.1" /> <id nullFlavor="NA" /> <code codeSystem="local" code="CBCD" displayName="CBC W/DIFF" /> < statusCode code="completed" /> <component> <observation moodCode= "EVN" classCode="OBS"> <templateId root="216.840.1.283499.03.15.224.2 " /> <id nullFlavor="NA" /> <code codeSystem="local" code="BA# " displayName="BASOPHIL #" /> <statusCode code="completed" /> <effectiveTime value="" /> <value unit="k/cumm" xsi:type= "PQ" value="0.0" /> <referenceRange> <observationRange> <text>0.0-0.2</text> </observationRange> </ referenceRange> </observation> </component> <component> <observation moodCode="EVN" classCode="OBS"> <templateId root= "07.12.840.1.930451.03.15.224.2" /> <id nullFlavor="NA" /> < code codeSystem="local" code="BA%" displayName="BASOPHIL %" /> <statusCode code="completed" /> <effectiveTime value="" /> <value unit="%" xsi:type="PQ" value="1" /> < referenceRange> <observationRange> <text>0-1</text> </observationRange> </referenceRange> </observation> </component> <component> <observation moodCode="EVN" classCode= "OBS"> <templateId root="07.12.840.1.213359.03.15.22.4.2" /> < id nullFlavor="NA" /> <code codeSystem="local" code="EO#" displayName= "EOSINOPHIL #" /> <statusCode code="completed" /> < effectiveTime value="912838585510" /> <value unit="k/cumm" xsi:type="PQ " value="0.2" /> <referenceRange> <observationRange> <text>0.1-0.5</text> </observationRange> </ referenceRange> </observation> </component> <component> <observation moodCode="EVN" classCode="OBS"> <templateId root= "16.840.1.834063.10..4.2" /> <id nullFlavor="NA" /> < code codeSystem="local" code="EO%" displayName="EOSINOPHIL %" /> <statusCode code="completed" /> <effectiveTime value="" /> <value unit="%" xsi:type="PQ" value="2" /> < referenceRange> <observationRange> <text>2-4</text> </observationRange> </referenceRange> </observation> </component> <component> <observation moodCode="EVN" classCode= "OBS"> <templateId root="840.1.607610.03.15.22.4.2" /> < id nullFlavor="NA" /> <code codeSystem="local" code="GR#" displayName= "GRANULOCYTE #" /> <statusCode code="completed" /> < effectiveTime value="" /> <value unit="k/cumm" xsi:type="PQ " value="3.8" /> <referenceRange> <observationRange> <text>2.0-9.0</text> </observationRange> </ referenceRange> </observation> </component> <component> <observation moodCode="EVN" classCode="OBS"> <templateId root= "07.12.840.1.871535.10..22.4.2" /> <id nullFlavor="NA" /> < code codeSystem="local" code="GR%" displayName="GRANULOCYTE %" /> <statusCode code="completed" /> <effectiveTime value=" " /> <value unit="%" xsi:type="PQ" value="53" /> < referenceRange> <observationRange> <text>50-75</text> </observationRange> </referenceRange> </observation> </component> <component> <observation moodCode="EVN" classCode= "OBS"> <templateId root="216.840.1.977687.10..22.4.2" /> < id nullFlavor="NA" /> <code codeSystem="local" code="LY#" displayName= "LYMPHOCYTE #" /> <statusCode code="completed" /> < effectiveTime value="" /> <value unit="k/cumm" xsi:type="PQ " value="2.6" /> <referenceRange> <observationRange> <text>1.0-4.0</text> </observationRange> </ referenceRange> </observation> </component> <component> <observation moodCode="EVN" classCode="OBS"> <templateId root= "2.16.840.1.498462.10..22.4.2" /> <id nullFlavor="NA" /> < code codeSystem="local" code="LY%" displayName="LYMPHOCYTE %" /> <statusCode code="completed" /> <effectiveTime value="" /> <value unit="%" xsi:type="PQ" value="36" /> < interpretationCode codeSystem="local" code="*" /> <referenceRange> <observationRange> <text>20-30</text> </ observationRange> </referenceRange> </observation> </ component> <component> <observation moodCode="EVN" classCode="OBS"> <templateId root="07.12.840.1.099311.10.20.22.4.2" /> <id nullFlavor="NA" /> <code codeSystem="local" code="MCH" displayName= "MEAN CELL HGB" /> <statusCode code="completed" /> < effectiveTime value="" /> <value unit="pg" xsi:type="PQ" value="27.0" /> <referenceRange> <observationRange> <text>27.0-33.0</text> </observationRange> </ referenceRange> </observation> </component> <component> <observation moodCode="EVN" classCode="OBS"> <templateId root= "07.12.840.1.922169.10.22.4.2" /> <id nullFlavor="NA" /> < code codeSystem="local" code="MCHC" displayName="MEAN CELL HGB CONCENTRATION" / > <statusCode code="completed" /> <effectiveTime value= "" /> <value unit="g/dL" xsi:type="PQ" value="31.1" /> <interpretationCode codeSystem="local" code="*" /> < referenceRange> <observationRange> <text>32.0-37.0</text > </observationRange> </referenceRange> </observation > </component> <component> <observation moodCode="EVN" classCode="OBS"> <templateId root="07.12.840.1.630775.10.22.4.2" /> <id nullFlavor="NA" /> <code codeSystem="local" code="MCV" displayName="MEAN CELL VOLUME" /> <statusCode code="completed" /> <effectiveTime value="" /> <value unit="fl" xsi:type= "PQ" value="86.6" /> <referenceRange> <observationRange> <text>80.0-100.0</text> </observationRange> </ referenceRange> </observation> </component> <component> <observation moodCode="EVN" classCode="OBS"> <templateId root= "216.840.1.392992.10..22.4.2" /> <id nullFlavor="NA" /> < code codeSystem="local" code="MO#" displayName="MONOCYTE #" /> < statusCode code="completed" /> <effectiveTime value="" /> <value unit="k/cumm" xsi:type="PQ" value="0.6" /> < referenceRange> <observationRange> <text>0.1-1.0</text> </observationRange> </referenceRange> </observation > </component> <component> <observation moodCode="EVN" classCode="OBS"> <templateId root="07.12.840.1.357011.10...4.2" /> <id nullFlavor="NA" /> <code codeSystem="local" code="MO% " displayName="MONOCYTE %" /> <statusCode code="completed" /> <effectiveTime value="" /> <value unit="%" xsi: type="PQ" value="8" /> <interpretationCode codeSystem="local" code="*" /> <referenceRange> <observationRange> <text>4- 6</text> </observationRange> </referenceRange> </ observation> </component> <component> <observation moodCode= "EVN" classCode="OBS"> <templateId root="16.840.1.928091.10..22.4.2 " /> <id nullFlavor="NA" /> <code codeSystem="local" code= "MPVT" displayName="MEAN PLATELET VOLUME" /> <statusCode code= "completed" /> <effectiveTime value="" /> <value unit="fl" xsi:type="PQ" value="9.1" /> <referenceRange> < observationRange> <text>8.5-10.9</text> </ observationRange> </referenceRange> </observation> </ component> <component> <observation moodCode="EVN" classCode="OBS"> <templateId root="216.840.1.637804.10.20.22.4.2" /> <id nullFlavor="NA" /> <code codeSystem="local" code="RBC" displayName=" RED BLOOD CELL" /> <statusCode code="completed" /> < effectiveTime value="" /> <value unit="m/cumm" xsi:type="PQ " value="4.34" /> <referenceRange> <observationRange> <text>4.00-6.00</text> </observationRange> </ referenceRange> </observation> </component> <component> <observation moodCode="EVN" classCode="OBS"> <templateId root= "16.840.1.854488.10.20.22.4.2" /> <id nullFlavor="NA" /> < code codeSystem="local" code="RDW" displayName="RED CELL DISTRIBUTION WIDTH" /> <statusCode code="completed" /> <effectiveTime value= "" /> <value unit="%" xsi:type="PQ" value="13.2" /> <referenceRange> <observationRange> <text>11.0- 15.6</text> </observationRange> </referenceRange> </ observation> </component> <component> <observation moodCode= "EVN" classCode="OBS"> <templateId root="16.840.1.245613.10.20.22.4.2 " /> <id nullFlavor="NA" /> <code codeSystem="local" code="WBC " displayName="WHITE BLOOD CELL" /> <statusCode code="completed" /> <effectiveTime value="" /> <value unit="k/cumm" xsi: type="PQ" value="7.2" /> <referenceRange> <observationRange > <text>5.0-10.0</text> </observationRange> </ referenceRange> </observation> </component> <component> <observation moodCode="EVN" classCode="OBS"> <templateId root= "07.12.840.1.456613.10.22.4.2" /> <id nullFlavor="NA" /> < code codeSystem="local" code="HGBT" displayName="HEMOGLOBIN" /> < statusCode code="completed" /> <effectiveTime value="" /> <value unit="gm/dL" xsi:type="PQ" value="11.7" /> < interpretationCode codeSystem="local" code="*" /> <referenceRange> <observationRange> <text>12.0-16.0</text> </ observationRange> </referenceRange> </observation> </ component> <component> <observation moodCode="EVN" classCode="OBS"> <templateId root="[id number]" /> <id nullFlavor="NA" /> <code codeSystem="local" code="HCTT" displayName= "HEMATOCRIT" /> <statusCode code="completed" /> < effectiveTime value="" /> <value unit="%" xsi:type="PQ " value="37.6" /> <referenceRange> <observationRange> <text>37.0-47.0</text> </observationRange> </ referenceRange> </observation> </component> <component> <observation moodCode="EVN" classCode="OBS"> <templateId root= "[id number]" /> <id nullFlavor="NA" /> < code codeSystem="local" code="NRBC%" displayName="NRBC %" /> < statusCode code="completed" /> <effectiveTime value="" /> <value unit="/100WBC" xsi:type="PQ" value="0.0" /> < referenceRange> <observationRange> <text>0.0-0.0</text> </observationRange> </referenceRange> </observation > </component> <component> <observation moodCode="EVN" classCode="OBS"> <templateId root="07.12.840.1.050521.10...4.2" /> <id nullFlavor="NA" /> <code codeSystem="local" code="NRBC#" displayName="NRBC #" /> <statusCode code="completed" /> < effectiveTime value="" /> <value unit="k/cumm" xsi:type="PQ " value="0.00" /> <interpretationCode codeSystem="local" code="*" /> <referenceRange> <observationRange> <text>0.03- 0.11</text> </observationRange> </referenceRange> </ observation> </component> <component> <observation moodCode= "EVN" classCode="OBS"> <templateId root="07.12.840.1.084351.10..22.4.2 " /> <id nullFlavor="NA" /> <code codeSystem="local" code= "PLTT" displayName="PLATELET COUNT" /> <statusCode code="completed" /> <effectiveTime value="" /> <value unit="k/cumm" xsi:type="PQ" value="278" /> <referenceRange> < observationRange> <text>150-400</text> </ observationRange> </referenceRange> </observation> </ component> <component> <observation moodCode="EVN" classCode="OBS"> <templateId root="216.840.1.297296.10.20.22.4.2" /> <id nullFlavor="NA" /> <code codeSystem="local" code="IG%" displayName= "IMMATURE GRANULOCYTE %" /> <statusCode code="completed" /> <effectiveTime value="" /> <value unit="%" xsi:type= "PQ" value="0.3" /> <referenceRange> <observationRange> <text>0.0-0.6</text> </observationRange> </ referenceRange> </observation> </component> <component> <observation moodCode="EVN" classCode="OBS"> <templateId root= "216.840.1.731332.10.20.22.4.2" /> <id nullFlavor="NA" /> < code codeSystem="local" code="IG#" displayName="IMMATURE GRANULOCYTE #" /> <statusCode code="completed" /> <effectiveTime value=" " /> <value unit="k/cumm" xsi:type="PQ" value="0.02" /> < referenceRange> <observationRange> <text>0.00-0.09</text > </observationRange> </referenceRange> </observation > </component> </organizer> </entry> <entry> <organizer moodCode= "EVN" classCode="BATTERY"> <templateId root="216.840.1.503815.10...4.1 " /> <id nullFlavor="NA" /> <code codeSystem="local" code="PT" displayName="PROTHROMBIN TIME WITH INR" /> <statusCode code="completed" /> <component> <observation moodCode="EVN" classCode="OBS"> < templateId root="16.840.1.641064...4.2" /> <id nullFlavor="NA " /> <code codeSystem="local" code="INRX" displayName="INTERNATIONAL NORMAL RATIO" /> <statusCode code="completed" /> < effectiveTime value="" /> <value unit="" xsi:type="PQ" value="1.1" /> <referenceRange> <observationRange> <text>0.9-1.1</text> </observationRange> </ referenceRange> </observation> </component> <component> <observation moodCode="EVN" classCode="OBS"> <templateId root= "216.840.1.678596.03.15.22.4.2" /> <id nullFlavor="NA" /> < code codeSystem="local" code="PTPAT" displayName="PROTHROMBIN TIME" /> <statusCode code="completed" /> <effectiveTime value="" /> <value unit="sec" xsi:type="PQ" value="12.5" /> < referenceRange> <observationRange> <text>10.0-12.8</text > </observationRange> </referenceRange> </observation > </component> </organizer> </entry> <entry> <organizer moodCode= "EVN" classCode="BATTERY"> <templateId root="216.840.1.816908.03.15.22.4.1 " /> <id nullFlavor="NA" /> <code codeSystem="local" code="METABC" displayName="METABOLIC PANEL, COMPREHN" /> <statusCode code="completed" /> <component> <observation moodCode="EVN" classCode="OBS"> < templateId root="07.12.840.1.820555...4.2" /> <id nullFlavor="NA " /> <code codeSystem="local" code="K" displayName="POTASSIUM" /> <statusCode code="completed" /> <effectiveTime value=" " /> <value unit="mmol/L" xsi:type="PQ" value="3.5" /> < referenceRange> <observationRange> <text>3.5-5.3</text> </observationRange> </referenceRange> </observation > </component> <component> <observation moodCode="EVN" classCode="OBS"> <templateId root="840.1.494126.03.15.22.4.2" /> <id nullFlavor="NA" /> <code codeSystem="local" code="eGFR" displayName="EST GFR (MDRD)" /> <statusCode code="completed" /> <effectiveTime value="" /> <value unit="mL/min" xsi:type ="PQ" value="> 60" /> <referenceRange> <observationRange > <text>> 59</text> </observationRange> </ referenceRange> </observation> </component> <component> <observation moodCode="EVN" classCode="OBS"> <templateId root= "07.12.840.1.924528.03.15.22.4.2" /> <id nullFlavor="NA" /> < code codeSystem="local" code="GAP" displayName="ANION GAP" /> < statusCode code="completed" /> <effectiveTime value="" /> <value unit="mmol/L" xsi:type="PQ" value="9" /> < referenceRange> <observationRange> <text>5-15</text> </observationRange> </referenceRange> </observation> </component> <component> <observation moodCode="EVN" classCode= "OBS"> <templateId root="216.840.1.826960.10..22.4.2" /> < id nullFlavor="NA" /> <code codeSystem="local" code="eCrCl" displayName ="EST CrCl (CG)" /> <statusCode code="completed" /> < effectiveTime value="" /> <value unit="mL/min" xsi:type="PQ " value="> 60" /> <referenceRange> <observationRange> <text>> 59</text> </observationRange> </ referenceRange> </observation> </component> <component> <observation moodCode="EVN" classCode="OBS"> <templateId root= "07.12.840.1.340656.10..22.4.2" /> <id nullFlavor="NA" /> < code codeSystem="local" code="GLU" displayName="GLUCOSE" /> < statusCode code="completed" /> <effectiveTime value="" /> <value unit="mg/dL" xsi:type="PQ" value="83" /> < referenceRange> <observationRange> <text>70-99</text> </observationRange> </referenceRange> </observation> </component> <component> <observation moodCode="EVN" classCode= "OBS"> <templateId root="16.840.1.359550.10..4.2" /> < id nullFlavor="NA" /> <code codeSystem="local" code="CA" displayName= "CALCIUM" /> <statusCode code="completed" /> <effectiveTime value="" /> <value unit="mg/dL" xsi:type="PQ" value="8.5" / > <referenceRange> <observationRange> <text>8.5 -10.1</text> </observationRange> </referenceRange> </ observation> </component> <component> <observation moodCode= "EVN" classCode="OBS"> <templateId root="2.16.840.1.075056.03.15.22.4.2 " /> <id nullFlavor="NA" /> <code codeSystem="local" code="BUN " displayName="BLOOD UREA NITROGEN" /> <statusCode code="completed" /> <effectiveTime value="" /> <value unit="mg/dL" xsi:type="PQ" value="14" /> <referenceRange> < observationRange> <text>7-20</text> </observationRange> </referenceRange> </observation> </component> < component> <observation moodCode="EVN" classCode="OBS"> < templateId root="2.16.840.1.856170.10..4.2" /> <id nullFlavor="NA " /> <code codeSystem="local" code="CREAT" displayName="CREATININE" /> <statusCode code="completed" /> <effectiveTime value= "" /> <value unit="mg/dL" xsi:type="PQ" value="0.8" /> <referenceRange> <observationRange> <text>0.6-1.0< /text> </observationRange> </referenceRange> </ observation> </component> <component> <observation moodCode= "EVN" classCode="OBS"> <templateId root="216.840.1.453917.10..22.4.2 " /> <id nullFlavor="NA" /> <code codeSystem="local" code="NA " displayName="SODIUM" /> <statusCode code="completed" /> < effectiveTime value="" /> <value unit="mmol/L" xsi:type="PQ " value="138" /> <referenceRange> <observationRange> <text>135-148</text> </observationRange> </ referenceRange> </observation> </component> <component> <observation moodCode="EVN" classCode="OBS"> <templateId root= "216.840.1.665430.10..4.2" /> <id nullFlavor="NA" /> < code codeSystem="local" code="CL" displayName="CHLORIDE" /> < statusCode code="completed" /> <effectiveTime value="" /> <value unit="mmol/L" xsi:type="PQ" value="101" /> < referenceRange> <observationRange> <text>98-110</text> </observationRange> </referenceRange> </observation> </component> <component> <observation moodCode="EVN" classCode ="OBS"> <templateId root="16.840.1.538563.10.22.4.2" /> < id nullFlavor="NA" /> <code codeSystem="local" code="AST" displayName= "AST/SGOT" /> <statusCode code="completed" /> <effectiveTime value="" /> <value unit="Units/L" xsi:type="PQ" value="23" /> <referenceRange> <observationRange> <text>10 -37</text> </observationRange> </referenceRange> </ observation> </component> <component> <observation moodCode= "EVN" classCode="OBS"> <templateId root="216.840.1.303084.10...4.2 " /> <id nullFlavor="NA" /> <code codeSystem="local" code="ALT " displayName="ALT/SGPT" /> <statusCode code="completed" /> < effectiveTime value="" /> <value unit="Units/L" xsi:type= "PQ" value="24" /> <referenceRange> <observationRange> <text>< 66</text> </observationRange> </ referenceRange> </observation> </component> <component> <observation moodCode="EVN" classCode="OBS"> <templateId root= "216.840.1.344248.10..4.2" /> <id nullFlavor="NA" /> < code codeSystem="local" code="CO2" displayName="CARBON DIOXIDE" /> < statusCode code="completed" /> <effectiveTime value="" /> <value unit="mmol/L" xsi:type="PQ" value="28" /> < referenceRange> <observationRange> <text>21-32</text> </observationRange> </referenceRange> </observation> </component> <component> <observation moodCode="EVN" classCode= "OBS"> <templateId root="16.840.1.393327.10...4.2" /> < id nullFlavor="NA" /> <code codeSystem="local" code="TP" displayName= "TOTAL PROTEIN" /> <statusCode code="completed" /> < effectiveTime value="" /> <value unit="gm/dL" xsi:type="PQ " value="7.9" /> <referenceRange> <observationRange> <text>6.4-8.2</text> </observationRange> </ referenceRange> </observation> </component> <component> <observation moodCode="EVN" classCode="OBS"> <templateId root= "16.840.1.552060.10..4.2" /> <id nullFlavor="NA" /> < code codeSystem="local" code="ALB" displayName="ALBUMIN" /> < statusCode code="completed" /> <effectiveTime value="" /> <value unit="gm/dL" xsi:type="PQ" value="3.9" /> < referenceRange> <observationRange> <text>3.4-5.0</text> </observationRange> </referenceRange> </observation > </component> <component> <observation moodCode="EVN" classCode="OBS"> <templateId root="07.12.840.1.841746.03.15.22.4.2" /> <id nullFlavor="NA" /> <code codeSystem="local" code="BILTOT" displayName="BILI TOTAL" /> <statusCode code="completed" /> < effectiveTime value="" /> <value unit="mg/dL" xsi:type="PQ " value="0.1" /> <referenceRange> <observationRange> <text>0.0-1.0</text> </observationRange> </ referenceRange> </observation> </component> <component> <observation moodCode="EVN" classCode="OBS"> <templateId root= "07.12.840.1.585010...4.2" /> <id nullFlavor="NA" /> < code codeSystem="local" code="ALKP" displayName="ALKALINE PHOSPHATASE TOTAL" /> <statusCode code="completed" /> <effectiveTime value= "" /> <value unit="IU/L" xsi:type="PQ" value="89" /> <referenceRange> <observationRange> <text>45-117</ text> </observationRange> </referenceRange> </ observation> </component> </organizer> </entry> <entry> <organizer moodCode="EVN" classCode="BATTERY"> <templateId root= "07.12.840.1.488651.10..4.1" /> <id nullFlavor="NA" /> <code codeSystem="local" code="iCHEM8" displayName="CHEM/HEM PROFILE-BEDSIDE" /> <statusCode code="completed" /> <component> <observation moodCode= "EVN" classCode="OBS"> <templateId root="07.12.840.1.847374...4.2 " /> <id nullFlavor="NA" /> <code codeSystem="local" code="K" displayName="POTASSIUM" /> <statusCode code="completed" /> < effectiveTime value="" /> <value unit="mmol/L" xsi:type="PQ " value="3.6" /> <referenceRange> <observationRange> <text>3.5-5.3</text> </observationRange> </ referenceRange> </observation> </component> <component> <observation moodCode="EVN" classCode="OBS"> <templateId root= "07.12.840.1.401146.10..4.2" /> <id nullFlavor="NA" /> < code codeSystem="local" code="CMETHOD" displayName="METHOD" /> < statusCode code="completed" /> <effectiveTime value="" /> <value unit="" xsi:type="PQ" value="Bedside" /> < referenceRange> <observationRange> <text /> < /observationRange> </referenceRange> </observation> </ component> <component> <observation moodCode="EVN" classCode="OBS"> <templateId root="07.12.840.1.900548.03.15.22.4.2" /> <id nullFlavor="NA" /> <code codeSystem="local" code="GAP" displayName= "ANION GAP" /> <statusCode code="completed" /> <effectiveTime value="" /> <value unit="mmol/L" xsi:type="PQ" value="17" / > <referenceRange> <observationRange> <text>10- 20</text> </observationRange> </referenceRange> </ observation> </component> <component> <observation moodCode= "EVN" classCode="OBS"> <templateId root="840.1.056453.03.15.22.4.2 " /> <id nullFlavor="NA" /> <code codeSystem="local" code= "HMETHOD" displayName="METHOD" /> <statusCode code="completed" /> <effectiveTime value="" /> <value unit="" xsi:type="PQ " value="Bedside" /> <referenceRange> <observationRange> <text /> </observationRange> </referenceRange> </observation> </component> <component> <observation moodCode="EVN" classCode="OBS"> <templateId root= "07.12.840.1.887196.03.15.22.4.2" /> <id nullFlavor="NA" /> < code codeSystem="local" code="GLU" displayName="GLUCOSE" /> < statusCode code="completed" /> <effectiveTime value="" /> <value unit="mg/dL" xsi:type="PQ" value="85" /> < referenceRange> <observationRange> <text>70-99</text> </observationRange> </referenceRange> </observation> </component> <component> <observation moodCode="EVN" classCode= "OBS"> <templateId root="216.840.1.251548.10...4.2" /> < id nullFlavor="NA" /> <code codeSystem="local" code="BUN" displayName= "BLOOD UREA NITROGEN" /> <statusCode code="completed" /> < effectiveTime value="[id number]" /> <value unit="mg/dL" xsi:type="PQ " value="14" /> <referenceRange> <observationRange> <text>7-20</text> </observationRange> </referenceRange > </observation> </component> <component> <observation moodCode="EVN" classCode="OBS"> <templateId root= "07.12.840.1.699018...4.2" /> <id nullFlavor="NA" /> < code codeSystem="local" code="CREAT" displayName="CREATININE" /> < statusCode code="completed" /> <effectiveTime value="[id number]" /> <value unit="mg/dL" xsi:type="PQ" value="0.7" /> < referenceRange> <observationRange> <text>0.6-1.0</text> </observationRange> </referenceRange> </observation > </component> <component> <observation moodCode="EVN" classCode="OBS"> <templateId root="07.12.840.1.451341...4.2" /> <id nullFlavor="NA" /> <code codeSystem="local" code="HGBT" displayName="HEMOGLOBIN" /> <statusCode code="completed" /> < effectiveTime value="" /> <value unit="gm/dL" xsi:type="PQ " value="13.3" /> <referenceRange> <observationRange> <text>12.0-16.0</text> </observationRange> </ referenceRange> </observation> </component> <component> <observation moodCode="EVN" classCode="OBS"> <templateId root= "216.840.1.737337.10.22.4.2" /> <id nullFlavor="NA" /> < code codeSystem="local" code="HCTT" displayName="HEMATOCRIT" /> < statusCode code="completed" /> <effectiveTime value="" /> <value unit="%" xsi:type="PQ" value="39.0" /> < referenceRange> <observationRange> <text>37.0-47.0</text > </observationRange> </referenceRange> </observation > </component> <component> <observation moodCode="EVN" classCode="OBS"> <templateId root="216.840.1.402467.10..4.2" /> <id nullFlavor="NA" /> <code codeSystem="local" code="NA" displayName="SODIUM" /> <statusCode code="completed" /> < effectiveTime value="" /> <value unit="mmol/L" xsi:type="PQ " value="140" /> <referenceRange> <observationRange> <text>135-148</text> </observationRange> </ referenceRange> </observation> </component> <component> <observation moodCode="EVN" classCode="OBS"> <templateId root= "216.840.1.001655.10.20.22.4.2" /> <id nullFlavor="NA" /> < code codeSystem="local" code="CL" displayName="CHLORIDE" /> < statusCode code="completed" /> <effectiveTime value="" /> <value unit="mmol/L" xsi:type="PQ" value="101" /> < referenceRange> <observationRange> <text>98-110</text> </observationRange> </referenceRange> </observation> </component> <component> <observation moodCode="EVN" classCode ="OBS"> <templateId root="216.840.1.814630.10.20.22.4.2" /> < id nullFlavor="NA" /> <code codeSystem="local" code="CO2" displayName= "CARBON DIOXIDE" /> <statusCode code="completed" /> < effectiveTime value="" /> <value unit="mmol/L" xsi:type="PQ " value="27" /> <referenceRange> <observationRange> <text>21-32</text> </observationRange> </ referenceRange> </observation> </component> <component> <observation moodCode="EVN" classCode="OBS"> <templateId root= "16.840.1.952884.10..22.4.2" /> <id nullFlavor="NA" /> < code codeSystem="local" code="CAION" displayName="CALCIUM IONIZED" /> < statusCode code="completed" /> <effectiveTime value="" /> <value unit="mg/dL" xsi:type="PQ" value="4.8" /> < referenceRange> <observationRange> <text>4.5-5.3</text> </observationRange> </referenceRange> </observation > </component> </organizer> </entry> <entry> <organizer moodCode= "EVN" classCode="BATTERY"> <templateId root="07.12.840.1.599941.10..22.4.1 " /> <id nullFlavor="NA" /> <code codeSystem="local" code="PREGU" displayName="UR TEST" /> <statusCode code="completed" /> < component> <observation moodCode="EVN" classCode="OBS"> < templateId root="07.12.840.1.535376.03.15.22.4.2" /> <id nullFlavor="NA " /> <code codeSystem="local" code="PREGU" displayName="UR TEST" /> <statusCode code="completed" /> <effectiveTime value= "[id number]" /> <value unit="" xsi:type="PQ" value="NEGATIVE" /> <referenceRange> <observationRange> <text>NEGATIVE </text> </observationRange> </referenceRange> </ observation> </component> </organizer> </entry> <entry> <organizer moodCode="EVN" classCode="BATTERY"> <templateId root= "07.12.840.1.516468.03.15.22.4.1" /> <id nullFlavor="NA" /> <code codeSystem="local" code="UA" displayName="URINALYSIS, ROUTINE" /> < statusCode code="completed" /> <component> <observation moodCode= "EVN" classCode="OBS"> <templateId root="216.840.1.137552.10..22.4.2 " /> <id nullFlavor="NA" /> <code codeSystem="local" code= "LEUESU" displayName="UA LEUKOCYTE ESTERASE DIPSTICK" /> <statusCode code="completed" /> <effectiveTime value="[id number]" /> < value unit="" xsi:type="PQ" value="1+" /> <interpretationCode codeSystem="local" code="*" /> <referenceRange> < observationRange> <text>NEGATIVE</text> </ observationRange> </referenceRange> </observation> </ component> <component> <observation moodCode="EVN" classCode="OBS"> <templateId root="07.12.840.1.839718.10.20.22.4.2" /> <id nullFlavor="NA" /> <code codeSystem="local" code="NITRIU" displayName= "UA NITRITE DIPSTICK" /> <statusCode code="completed" /> < effectiveTime value="" /> <value unit="" xsi:type="PQ" value="POSITIVE" /> <interpretationCode codeSystem="local" code="*" /> <referenceRange> <observationRange> <text> NEGATIVE</text> </observationRange> </referenceRange> </observation> </component> <component> <observation moodCode ="EVN" classCode="OBS"> <templateId root= "840.1.031275.03.15.22.4.2" /> <id nullFlavor="NA" /> < code codeSystem="local" code="PROTEIU" displayName="UA PROTEIN DIPSTICK" /> <statusCode code="completed" /> <effectiveTime value= "" /> <value unit="" xsi:type="PQ" value="TRACE" /> <interpretationCode codeSystem="local" code="*" /> <referenceRange> <observationRange> <text>NEGATIVE</text> </ observationRange> </referenceRange> </observation> </ component> <component> <observation moodCode="EVN" classCode="OBS"> <templateId root="07.12.840.1.706545.10..4.2" /> <id nullFlavor="NA" /> <code codeSystem="local" code="DGLUU" displayName= "UA GLUCOSE DIPSTICK" /> <statusCode code="completed" /> < effectiveTime value="" /> <value unit="" xsi:type="PQ" value="NEGATIVE" /> <referenceRange> <observationRange> <text>NEGATIVE</text> </observationRange> </ referenceRange> </observation> </component> <component> <observation moodCode="EVN" classCode="OBS"> <templateId root= "07.12.840.1.754443.10...4.2" /> <id nullFlavor="NA" /> < code codeSystem="local" code="KETONU" displayName="UA KETONE DIPSTICK" /> <statusCode code="completed" /> <effectiveTime value=" " /> <value unit="" xsi:type="PQ" value="TRACE" /> < interpretationCode codeSystem="local" code="*" /> <referenceRange> <observationRange> <text>NEGATIVE</text> </ observationRange> </referenceRange> </observation> </ component> <component> <observation moodCode="EVN" classCode="OBS"> <templateId root="07.12.840.1.792121.10..22.4.2" /> <id nullFlavor="NA" /> <code codeSystem="local" code="UROBILU" displayName= "UA UROBILINOGEN DIPSTICK" /> <statusCode code="completed" /> <effectiveTime value="" /> <value unit="" xsi:type="PQ" value="NORMAL" /> <referenceRange> <observationRange> <text>NORMAL</text> </observationRange> </ referenceRange> </observation> </component> <component> <observation moodCode="EVN" classCode="OBS"> <templateId root= ".1.993754.10..22.4.2" /> <id nullFlavor="NA" /> < code codeSystem="local" code="BILU" displayName="UA BILIRUBIN DIPSTICK" /> <statusCode code="completed" /> <effectiveTime value=" " /> <value unit="" xsi:type="PQ" value="POSITIVE" /> < interpretationCode codeSystem="local" code="*" /> <referenceRange> <observationRange> <text>NEGATIVE</text> </ observationRange> </referenceRange> </observation> </ component> <component> <observation moodCode="EVN" classCode="OBS"> <templateId root="07.12.840.1.779594.10..4.2" /> <id nullFlavor="NA" /> <code codeSystem="local" code="LON" displayName="UA BLOOD DIPSTICK" /> <statusCode code="completed" /> < effectiveTime value="" /> <value unit="" xsi:type="PQ" value="4+" /> <interpretationCode codeSystem="local" code="*" /> <referenceRange> <observationRange> <text>NEGATIVE</ text> </observationRange> </referenceRange> </ observation> </component> <component> <observation moodCode= "EVN" classCode="OBS"> <templateId root="16.840.1.830448.10..4.2 " /> <id nullFlavor="NA" /> <code codeSystem="local" code= "SPGRU" displayName="UA SPECIFIC GRAVITY" /> <statusCode code= "completed" /> <effectiveTime value="[id number]" /> <value unit="" xsi:type="PQ" value="1.027" /> <interpretationCode codeSystem= "local" code="*" /> <referenceRange> <observationRange> <text>1.015-1.025</text> </observationRange> </ referenceRange> </observation> </component> <component> <observation moodCode="EVN" classCode="OBS"> <templateId root= "07.12.840.1.985830.10.22.4.2" /> <id nullFlavor="NA" /> < code codeSystem="local" code="WILLOW" displayName="UR PH" /> <statusCode code="completed" /> <effectiveTime value="" /> < value unit="" xsi:type="PQ" value="6.0" /> <referenceRange> <observationRange> <text>5.0-7.0</text> </ observationRange> </referenceRange> </observation> </ component> </organizer> </entry> <entry> <organizer moodCode="EVN" classCode="BATTERY"> <templateId root="840.1.302183.03.15.22.4.1" /> <id nullFlavor="NA" /> <code codeSystem="local" code="UAMICRO" displayName="UA MICROSCOPIC" /> <statusCode code="completed" /> < component> <observation moodCode="EVN" classCode="OBS"> < templateId root="07.12.840.1.344119.1022.4.2" /> <id nullFlavor="NA " /> <code codeSystem="local" code="BACU" displayName="UA BACTERIA" /> <statusCode code="completed" /> <effectiveTime value= "" /> <value unit="" xsi:type="PQ" value="4+" /> < interpretationCode codeSystem="local" code="*" /> <referenceRange> <observationRange> <text>NEGATIVE</text> </ observationRange> </referenceRange> </observation> </ component> <component> <observation moodCode="EVN" classCode="OBS"> <templateId root="07.12.840.1.420670.10.4.2" /> <id nullFlavor="NA" /> <code codeSystem="local" code="EPIU" displayName=" UA EPITHELIAL CELLS" /> <statusCode code="completed" /> < effectiveTime value="" /> <value unit="epi/hpf" xsi:type= "PQ" value="2+" /> <interpretationCode codeSystem="local" code="*" /> <referenceRange> <observationRange> <text>0 - 1 +</text> </observationRange> </referenceRange> </ observation> </component> <component> <observation moodCode= "EVN" classCode="OBS"> <templateId root="07.12.840.1.956116.03.15.22.4.2 " /> <id nullFlavor="NA" /> <code codeSystem="local" code= "RBCU" displayName="UA RBC" /> <statusCode code="completed" /> <effectiveTime value="" /> <value unit="rbc/hpf" xsi:type ="PQ" value=">100" /> <interpretationCode codeSystem="local" code="* " /> <referenceRange> <observationRange> <text> 0 - 3</text> </observationRange> </referenceRange> </ observation> </component> <component> <observation moodCode= "EVN" classCode="OBS"> <templateId root="07.12.840.1.067462.03.15.22.4.2 " /> <id nullFlavor="NA" /> <code codeSystem="local" code= "UAVOL" displayName="UA VOLUME FOR EXAM" /> <statusCode code="completed " /> <effectiveTime value="" /> <value unit="mL" xsi:type="PQ" value="12.0" /> <referenceRange> < observationRange> <text>(12mL STD)</text> </ observationRange> </referenceRange> </observation> </ component> <component> <observation moodCode="EVN" classCode="OBS"> <templateId root="216.840.1.695236.10...4.2" /> <id nullFlavor="NA" /> <code codeSystem="local" code="WBCU" displayName=" UA WBC" /> <statusCode code="completed" /> <effectiveTime value="" /> <value unit="wbc/hpf" xsi:type="PQ" value="20- 50" /> <interpretationCode codeSystem="local" code="*" /> < referenceRange> <observationRange> <text>0 - 5</text> </observationRange> </referenceRange> </observation> </component> <component> <observation moodCode="EVN" classCode= "OBS"> <templateId root="2.16.840.1.522246.10...4.2" /> < id nullFlavor="NA" /> <code codeSystem="local" code="WBCCLUMPS" displayName="WBC CLUMPS" /> <statusCode code="completed" /> < effectiveTime value="" /> <value unit="" xsi:type="PQ" value="PRESENT" /> <interpretationCode codeSystem="local" code="*" /> <referenceRange> <observationRange> <text> NEGATIVE</text> </observationRange> </referenceRange> </observation> </component> </organizer> </entry> <entry> < organizer moodCode="EVN" classCode="BATTERY"> <templateId root= "2.16.840.1.445041.10.20.22.4.1" /> <id nullFlavor="NA" /> <code codeSystem="local" code="UC" displayName="URINE CULTURE" /> <statusCode code="completed" /> <component> <observation moodCode="EVN" classCode="OBS"> <templateId root="2.16.840.1.500308.10.20.22.4.2" /> <id nullFlavor="NA" /> <code codeSystem="local" code="MB" displayName="Microbiology" /> <statusCode code="completed" /> <effectiveTime value="[id number]" /> <value xsi:type="ST" value="< pre><b>URINE CULTURE</b> See [...] STRIMETH/SULFA VITEK >=[address] [facility] [place] [address]< /pre>" /> <referenceRange> <observationRange> <text /> </observationRange> </referenceRange> </ observation> </component> </organizer> </entry> <entry> <organizer moodCode="EVN" classCode="BATTERY"> <templateId root= "07.12.840.1.680302.10.4.1" /> <id nullFlavor="NA" /> <code codeSystem="local" code="CBCD" displayName="CBC W/DIFF" /> <statusCode code ="completed" /> <component> <observation moodCode="EVN" classCode= "OBS"> <templateId root="840.1.076235.03.15.224.2" /> < id nullFlavor="NA" /> <code codeSystem="local" code="BA#" displayName= "BASOPHIL #" /> <statusCode code="completed" /> < effectiveTime value="[id number]" /> <value unit="k/cumm" xsi:type="PQ " value="0.0" /> <referenceRange> <observationRange> <text>0.0-0.2</text> </observationRange> </ referenceRange> </observation> </component> <component> <observation moodCode="EVN" classCode="OBS"> <templateId root= "840.1.877276.03.15.224.2" /> <id nullFlavor="NA" /> < code codeSystem="local" code="BA%" displayName="BASOPHIL %" /> <statusCode code="completed" /> <effectiveTime value="311433559734" /> <value unit="%" xsi:type="PQ" value="1" /> < referenceRange> <observationRange> <text>0-1</text> </observationRange> </referenceRange> </observation> </component> <component> <observation moodCode="EVN" classCode= "OBS"> <templateId root="07.12.840.1.031367.03.15.22.4.2" /> < id nullFlavor="NA" /> <code codeSystem="local" code="EO#" displayName= "EOSINOPHIL #" /> <statusCode code="completed" /> < effectiveTime value="" /> <value unit="k/cumm" xsi:type="PQ " value="0.1" /> <referenceRange> <observationRange> <text>0.1-0.5</text> </observationRange> </ referenceRange> </observation> </component> <component> <observation moodCode="EVN" classCode="OBS"> <templateId root= "2.16.840.1.453568...4.2" /> <id nullFlavor="NA" /> < code codeSystem="local" code="EO%" displayName="EOSINOPHIL %" /> <statusCode code="completed" /> <effectiveTime value="" /> <value unit="%" xsi:type="PQ" value="2" /> < referenceRange> <observationRange> <text>2-4</text> </observationRange> </referenceRange> </observation> </component> <component> <observation moodCode="EVN" classCode= "OBS"> <templateId root="2.16.840.1.916599.03.15..4.2" /> < id nullFlavor="NA" /> <code codeSystem="local" code="GR#" displayName= "GRANULOCYTE #" /> <statusCode code="completed" /> < effectiveTime value="" /> <value unit="k/cumm" xsi:type="PQ " value="4.0" /> <referenceRange> <observationRange> <text>2.0-9.0</text> </observationRange> </ referenceRange> </observation> </component> <component> <observation moodCode="EVN" classCode="OBS"> <templateId root= "16.840.1.247666.10..22.4.2" /> <id nullFlavor="NA" /> < code codeSystem="local" code="GR%" displayName="GRANULOCYTE %" /> <statusCode code="completed" /> <effectiveTime value=" " /> <value unit="%" xsi:type="PQ" value="65" /> < referenceRange> <observationRange> <text>50-75</text> </observationRange> </referenceRange> </observation> </component> <component> <observation moodCode="EVN" classCode= "OBS"> <templateId root="16.840.1.998092.03.15.22.4.2" /> < id nullFlavor="NA" /> <code codeSystem="local" code="LY#" displayName= "LYMPHOCYTE #" /> <statusCode code="completed" /> < effectiveTime value="" /> <value unit="k/cumm" xsi:type="PQ " value="1.5" /> <referenceRange> <observationRange> <text>1.0-4.0</text> </observationRange> </ referenceRange> </observation> </component> <component> <observation moodCode="EVN" classCode="OBS"> <templateId root= "16.840.1.631066.10.2022.4.2" /> <id nullFlavor="NA" /> < code codeSystem="local" code="LY%" displayName="LYMPHOCYTE %" /> <statusCode code="completed" /> <effectiveTime value="624747117583" /> <value unit="%" xsi:type="PQ" value="24" /> < referenceRange> <observationRange> <text>20-30</text> </observationRange> </referenceRange> </observation> </component> <component> <observation moodCode="EVN" classCode= "OBS"> <templateId root="216.840.1.652657.10.20.22.4.2" /> < id nullFlavor="NA" /> <code codeSystem="local" code="MCH" displayName= "MEAN CELL HGB" /> <statusCode code="completed" /> < effectiveTime value="410910898111" /> <value unit="pg" xsi:type="PQ" value="25.9" /> <interpretationCode codeSystem="local" code="*" /> <referenceRange> <observationRange> <text>27.0- 33.0</text> </observationRange> </referenceRange> </ observation> </component> <component> <observation moodCode= "EVN" classCode="OBS"> <templateId root="07.12.840.1.870814.10..4.2 " /> <id nullFlavor="NA" /> <code codeSystem="local" code= "MCHC" displayName="MEAN CELL HGB CONCENTRATION" /> <statusCode code= "completed" /> <effectiveTime value="219670940547" /> <value unit="g/dL" xsi:type="PQ" value="30.7" /> <interpretationCode codeSystem="local" code="*" /> <referenceRange> < observationRange> <text>32.0-37.0</text> </ observationRange> </referenceRange> </observation> </ component> <component> <observation moodCode="EVN" classCode="OBS"> <templateId root="216.840.1.459484.10.2022.4.2" /> <id nullFlavor="NA" /> <code codeSystem="local" code="MCV" displayName= "MEAN CELL VOLUME" /> <statusCode code="completed" /> < effectiveTime value="497586047068" /> <value unit="fl" xsi:type="PQ" value="84.5" /> <referenceRange> <observationRange> <text>80.0-100.0</text> </observationRange> </ referenceRange> </observation> </component> <component> <observation moodCode="EVN" classCode="OBS"> <templateId root= "216.840.1.383577.10..4.2" /> <id nullFlavor="NA" /> < code codeSystem="local" code="MO#" displayName="MONOCYTE #" /> < statusCode code="completed" /> <effectiveTime value="469986977669" /> <value unit="k/cumm" xsi:type="PQ" value="0.6" /> < referenceRange> <observationRange> <text>0.1-1.0</text> </observationRange> </referenceRange> </observation > </component> <component> <observation moodCode="EVN" classCode="OBS"> <templateId root="2.16.840.1.382753.10...4.2" /> <id nullFlavor="NA" /> <code codeSystem="local" code="MO% " displayName="MONOCYTE %" /> <statusCode code="completed" /> <effectiveTime value="305644059746" /> <value unit="%" xsi: type="PQ" value="9" /> <interpretationCode codeSystem="local" code="*" /> <referenceRange> <observationRange> <text>4- 6</text> </observationRange> </referenceRange> </ observation> </component> <component> <observation moodCode= "EVN" classCode="OBS"> <templateId root="07.12.840.1.841846.22.4.2 " /> <id nullFlavor="NA" /> <code codeSystem="local" code= "MPVT" displayName="MEAN PLATELET VOLUME" /> <statusCode code= "completed" /> <effectiveTime value="" /> <value unit="fl" xsi:type="PQ" value="9.3" /> <referenceRange> < observationRange> <text>8.5-10.9</text> </ observationRange> </referenceRange> </observation> </ component> <component> <observation moodCode="EVN" classCode="OBS"> <templateId root="07.12.840.1.418603.03.15.22.4.2" /> <id nullFlavor="NA" /> <code codeSystem="local" code="RBC" displayName=" RED BLOOD CELL" /> <statusCode code="completed" /> < effectiveTime value="" /> <value unit="m/cumm" xsi:type="PQ " value="4.13" /> <referenceRange> <observationRange> <text>4.00-6.00</text> </observationRange> </ referenceRange> </observation> </component> <component> <observation moodCode="EVN" classCode="OBS"> <templateId root= "07.12.840.1.374337.1022.4.2" /> <id nullFlavor="NA" /> < code codeSystem="local" code="RDW" displayName="RED CELL DISTRIBUTION WIDTH" /> <statusCode code="completed" /> <effectiveTime value= "" /> <value unit="%" xsi:type="PQ" value="14.3" /> <referenceRange> <observationRange> <text>11.0- 15.6</text> </observationRange> </referenceRange> </ observation> </component> <component> <observation moodCode= "EVN" classCode="OBS"> <templateId root="216.840.1.777802.10.20.22.4.2 " /> <id nullFlavor="NA" /> <code codeSystem="local" code="WBC " displayName="WHITE BLOOD CELL" /> <statusCode code="completed" /> <effectiveTime value="590658024978" /> <value unit="k/cumm" xsi: type="PQ" value="6.2" /> <referenceRange> <observationRange > <text>5.0-10.0</text> </observationRange> </ referenceRange> </observation> </component> <component> <observation moodCode="EVN" classCode="OBS"> <templateId root= "07.12.840.1.375225....4.2" /> <id nullFlavor="NA" /> < code codeSystem="local" code="HGBT" displayName="HEMOGLOBIN" /> < statusCode code="completed" /> <effectiveTime value="661986592321" /> <value unit="gm/dL" xsi:type="PQ" value="10.7" /> < interpretationCode codeSystem="local" code="*" /> <referenceRange> <observationRange> <text>12.0-16.0</text> </ observationRange> </referenceRange> </observation> </ component> <component> <observation moodCode="EVN" classCode="OBS"> <templateId root="07.12.840.1.615313.10..22.4.2" /> <id nullFlavor="NA" /> <code codeSystem="local" code="HCTT" displayName= "HEMATOCRIT" /> <statusCode code="completed" /> < effectiveTime value="" /> <value unit="%" xsi:type="PQ " value="34.9" /> <interpretationCode codeSystem="local" code="*" /> <referenceRange> <observationRange> <text>37.0- 47.0</text> </observationRange> </referenceRange> </ observation> </component> <component> <observation moodCode= "EVN" classCode="OBS"> <templateId root="2.16.840.1.399505.10..4.2 " /> <id nullFlavor="NA" /> <code codeSystem="local" code= "NRBC%" displayName="NRBC %" /> <statusCode code="completed" / > <effectiveTime value="" /> <value unit="/100WBC " xsi:type="PQ" value="0.0" /> <referenceRange> < observationRange> <text>0.0-0.0</text> </ observationRange> </referenceRange> </observation> </ component> <component> <observation moodCode="EVN" classCode="OBS"> <templateId root="2.16.840.1.196683.10.4.2" /> <id nullFlavor="NA" /> <code codeSystem="local" code="NRBC#" displayName= "NRBC #" /> <statusCode code="completed" /> <effectiveTime value="" /> <value unit="k/cumm" xsi:type="PQ" value="0.00 " /> <interpretationCode codeSystem="local" code="*" /> < referenceRange> <observationRange> <text>0.03-0.11</text > </observationRange> </referenceRange> </observation > </component> <component> <observation moodCode="EVN" classCode="OBS"> <templateId root="216.840.1.996914.03.15.22.4.2" /> <id nullFlavor="NA" /> <code codeSystem="local" code="PLTT" displayName="PLATELET COUNT" /> <statusCode code="completed" /> <effectiveTime value="307971525078" /> <value unit="k/cumm" xsi:type ="PQ" value="275" /> <referenceRange> <observationRange> <text>150-400</text> </observationRange> </ referenceRange> </observation> </component> <component> <observation moodCode="EVN" classCode="OBS"> <templateId root= "07.12.840.1.892562.03.15.224.2" /> <id nullFlavor="NA" /> < code codeSystem="local" code="IG%" displayName="IMMATURE GRANULOCYTE %" /> <statusCode code="completed" /> <effectiveTime value= "756142689455" /> <value unit="%" xsi:type="PQ" value="0.3" /> <referenceRange> <observationRange> <text>0.0-0.6< /text> </observationRange> </referenceRange> </ observation> </component> <component> <observation moodCode= "EVN" classCode="OBS"> <templateId root="07.12.840.1.864069.03.15.22.4.2 " /> <id nullFlavor="NA" /> <code codeSystem="local" code="IG# " displayName="IMMATURE GRANULOCYTE #" /> <statusCode code="completed" /> <effectiveTime value="453817611042" /> <value unit="k/cumm " xsi:type="PQ" value="0.02" /> <referenceRange> < observationRange> <text>0.00-0.09</text> </ observationRange> </referenceRange> </observation> </ component> </organizer> </entry> <entry> <organizer moodCode="EVN" classCode="BATTERY"> <templateId root="07.12.840.1.607004.10..4.1" /> <id nullFlavor="NA" /> <code codeSystem="local" code="PREG" displayName=" TEST, SERUM" /> <statusCode code="completed" /> <component> <observation moodCode="EVN" classCode="OBS"> < templateId root="07.12.840.1.168987...4.2" /> <id nullFlavor="NA " /> <code codeSystem="local" code="PREG" displayName=" TEST, SERUM" /> <statusCode code="completed" /> <effectiveTime value ="866627345893" /> <value unit="" xsi:type="PQ" value="NEGATIVE" /> <referenceRange> <observationRange> <text> NEGATIVE</text> </observationRange> </referenceRange> </observation> </component> </organizer> </entry> <entry> < organizer moodCode="EVN" classCode="BATTERY"> <templateId root= "07.12.840.1.126175.10..4.1" /> <id nullFlavor="NA" /> <code codeSystem="local" code="CBCD" displayName="CBC W/DIFF" /> <statusCode code ="completed" /> <component> <observation moodCode="EVN" classCode= "OBS"> <templateId root="840.1.368021.03.15.22.4.2" /> < id nullFlavor="NA" /> <code codeSystem="local" code="BA#" displayName= "BASOPHIL #" /> <statusCode code="completed" /> < effectiveTime value="806408443508" /> <value unit="k/cumm" xsi:type="PQ " value="0.0" /> <referenceRange> <observationRange> <text>0.0-0.2</text> </observationRange> </ referenceRange> </observation> </component> <component> <observation moodCode="EVN" classCode="OBS"> <templateId root= "07.12.840.1.544597.03.15.22.4.2" /> <id nullFlavor="NA" /> < code codeSystem="local" code="BA%" displayName="BASOPHIL %" /> <statusCode code="completed" /> <effectiveTime value="466060575021" /> <value unit="%" xsi:type="PQ" value="1" /> < referenceRange> <observationRange> <text>0-1</text> </observationRange> </referenceRange> </observation> </component> <component> <observation moodCode="EVN" classCode= "OBS"> <templateId root="07.12.840.1.146067.03.15.22.4.2" /> < id nullFlavor="NA" /> <code codeSystem="local" code="EO#" displayName= "EOSINOPHIL #" /> <statusCode code="completed" /> < effectiveTime value="504167978308" /> <value unit="k/cumm" xsi:type="PQ " value="0.2" /> <referenceRange> <observationRange> <text>0.1-0.5</text> </observationRange> </ referenceRange> </observation> </component> <component> <observation moodCode="EVN" classCode="OBS"> <templateId root= "216.840.1.212227.1022.4.2" /> <id nullFlavor="NA" /> < code codeSystem="local" code="EO%" displayName="EOSINOPHIL %" /> <statusCode code="completed" /> <effectiveTime value="129108337108" /> <value unit="%" xsi:type="PQ" value="2" /> < referenceRange> <observationRange> <text>2-4</text> </observationRange> </referenceRange> </observation> </component> <component> <observation moodCode="EVN" classCode= "OBS"> <templateId root="07.12.840.1.132199.03.15.22.4.2" /> < id nullFlavor="NA" /> <code codeSystem="local" code="GR#" displayName= "GRANULOCYTE #" /> <statusCode code="completed" /> < effectiveTime value="261968966271" /> <value unit="k/cumm" xsi:type="PQ " value="4.5" /> <referenceRange> <observationRange> <text>2.0-9.0</text> </observationRange> </ referenceRange> </observation> </component> <component> <observation moodCode="EVN" classCode="OBS"> <templateId root= "216.840.1.024951.102022.4.2" /> <id nullFlavor="NA" /> < code codeSystem="local" code="GR%" displayName="GRANULOCYTE %" /> <statusCode code="completed" /> <effectiveTime value="623277017206 " /> <value unit="%" xsi:type="PQ" value="57" /> < referenceRange> <observationRange> <text>50-75</text> </observationRange> </referenceRange> </observation> </component> <component> <observation moodCode="EVN" classCode= "OBS"> <templateId root="216.840.1.326358.10..4.2" /> < id nullFlavor="NA" /> <code codeSystem="local" code="LY#" displayName= "LYMPHOCYTE #" /> <statusCode code="completed" /> < effectiveTime value="851084246781" /> <value unit="k/cumm" xsi:type="PQ " value="2.4" /> <referenceRange> <observationRange> <text>1.0-4.0</text> </observationRange> </ referenceRange> </observation> </component> <component> <observation moodCode="EVN" classCode="OBS"> <templateId root= "07.12.840.1.255772.10..4.2" /> <id nullFlavor="NA" /> < code codeSystem="local" code="LY%" displayName="LYMPHOCYTE %" /> <statusCode code="completed" /> <effectiveTime value="042810084183" /> <value unit="%" xsi:type="PQ" value="30" /> < referenceRange> <observationRange> <text>20-30</text> </observationRange> </referenceRange> </observation> </component> <component> <observation moodCode="EVN" classCode= "OBS"> <templateId root="16.840.1.190735.10.2022.4.2" /> < id nullFlavor="NA" /> <code codeSystem="local" code="MCH" displayName= "MEAN CELL HGB" /> <statusCode code="completed" /> < effectiveTime value="107973477468" /> <value unit="pg" xsi:type="PQ" value="25.6" /> <interpretationCode codeSystem="local" code="*" /> <referenceRange> <observationRange> <text>27.0- 33.0</text> </observationRange> </referenceRange> </ observation> </component> <component> <observation moodCode= "EVN" classCode="OBS"> <templateId root="2.16.840.1.003752.10..22.4.2 " /> <id nullFlavor="NA" /> <code codeSystem="local" code= "MCHC" displayName="MEAN CELL HGB CONCENTRATION" /> <statusCode code= "completed" /> <effectiveTime value="927658075917" /> <value unit="g/dL" xsi:type="PQ" value="30.7" /> <interpretationCode codeSystem="local" code="*" /> <referenceRange> < observationRange> <text>32.0-37.0</text> </ observationRange> </referenceRange> </observation> </ component> <component> <observation moodCode="EVN" classCode="OBS"> <templateId root="2.16.840.1.045110.10.20.22.4.2" /> <id nullFlavor="NA" /> <code codeSystem="local" code="MCV" displayName= "MEAN CELL VOLUME" /> <statusCode code="completed" /> < effectiveTime value="496937828772" /> <value unit="fl" xsi:type="PQ" value="83.3" /> <referenceRange> <observationRange> <text>80.0-100.0</text> </observationRange> </ referenceRange> </observation> </component> <component> <observation moodCode="EVN" classCode="OBS"> <templateId root= "216.840.1.071386.10..4.2" /> <id nullFlavor="NA" /> < code codeSystem="local" code="MO#" displayName="MONOCYTE #" /> < statusCode code="completed" /> <effectiveTime value="171460827344" /> <value unit="k/cumm" xsi:type="PQ" value="0.8" /> < referenceRange> <observationRange> <text>0.1-1.0</text> </observationRange> </referenceRange> </observation > </component> <component> <observation moodCode="EVN" classCode="OBS"> <templateId root="16.840.1.795408.03.15.22.4.2" /> <id nullFlavor="NA" /> <code codeSystem="local" code="MO% " displayName="MONOCYTE %" /> <statusCode code="completed" /> <effectiveTime value="993753368165" /> <value unit="%" xsi: type="PQ" value="10" /> <interpretationCode codeSystem="local" code="* " /> <referenceRange> <observationRange> <text> 4-6</text> </observationRange> </referenceRange> </ observation> </component> <component> <observation moodCode= "EVN" classCode="OBS"> <templateId root="07.12.840.1.708222.10.4.2 " /> <id nullFlavor="NA" /> <code codeSystem="local" code= "MPVT" displayName="MEAN PLATELET VOLUME" /> <statusCode code= "completed" /> <effectiveTime value="359010973312" /> <value unit="fl" xsi:type="PQ" value="9.6" /> <referenceRange> < observationRange> <text>8.5-10.9</text> </ observationRange> </referenceRange> </observation> </ component> <component> <observation moodCode="EVN" classCode="OBS"> <templateId root="216.840.1.975144.10.2022.4.2" /> <id nullFlavor="NA" /> <code codeSystem="local" code="RBC" displayName=" RED BLOOD CELL" /> <statusCode code="completed" /> < effectiveTime value="584587210605" /> <value unit="m/cumm" xsi:type="PQ " value="3.83" /> <interpretationCode codeSystem="local" code="*" /> <referenceRange> <observationRange> <text>4.00- 6.00</text> </observationRange> </referenceRange> </ observation> </component> <component> <observation moodCode= "EVN" classCode="OBS"> <templateId root="07.12.840.1.382172.03.15.22.4.2 " /> <id nullFlavor="NA" /> <code codeSystem="local" code="RDW " displayName="RED CELL DISTRIBUTION WIDTH" /> <statusCode code= "completed" /> <effectiveTime value="284171802397" /> <value unit="%" xsi:type="PQ" value="15.2" /> <referenceRange> <observationRange> <text>11.0-15.6</text> </ observationRange> </referenceRange> </observation> </ component> <component> <observation moodCode="EVN" classCode="OBS"> <templateId root="216.840.1.294474.2022.4.2" /> <id nullFlavor="NA" /> <code codeSystem="local" code="WBC" displayName= "WHITE BLOOD CELL" /> <statusCode code="completed" /> < effectiveTime value="223330147015" /> <value unit="k/cumm" xsi:type="PQ " value="7.9" /> <referenceRange> <observationRange> <text>5.0-10.0</text> </observationRange> </ referenceRange> </observation> </component> <component> <observation moodCode="EVN" classCode="OBS"> <templateId root= "2.16.840.1.912294.10..22.4.2" /> <id nullFlavor="NA" /> < code codeSystem="local" code="HGBT" displayName="HEMOGLOBIN" /> < statusCode code="completed" /> <effectiveTime value="695757909093" /> <value unit="gm/dL" xsi:type="PQ" value="9.8" /> < interpretationCode codeSystem="local" code="*" /> <referenceRange> <observationRange> <text>12.0-16.0</text> </ observationRange> </referenceRange> </observation> </ component> <component> <observation moodCode="EVN" classCode="OBS"> <templateId root="216.840.1.440774.10.20.22.4.2" /> <id nullFlavor="NA" /> <code codeSystem="local" code="HCTT" displayName= "HEMATOCRIT" /> <statusCode code="completed" /> < effectiveTime value="544128394729" /> <value unit="%" xsi:type="PQ " value="31.9" /> <interpretationCode codeSystem="local" code="*" /> <referenceRange> <observationRange> <text>37.0- 47.0</text> </observationRange> </referenceRange> </ observation> </component> <component> <observation moodCode= "EVN" classCode="OBS"> <templateId root="07.12.840.1.792708.10.4.2 " /> <id nullFlavor="NA" /> <code codeSystem="local" code= "NRBC%" displayName="NRBC %" /> <statusCode code="completed" / > <effectiveTime value="004577303774" /> <value unit="/100WBC " xsi:type="PQ" value="0.0" /> <referenceRange> < observationRange> <text>0.0-0.0</text> </ observationRange> </referenceRange> </observation> </ component> <component> <observation moodCode="EVN" classCode="OBS"> <templateId root="840.1.047181.03.15.22.4.2" /> <id nullFlavor="NA" /> <code codeSystem="local" code="NRBC#" displayName= "NRBC #" /> <statusCode code="completed" /> <effectiveTime value="657317391198" /> <value unit="k/cumm" xsi:type="PQ" value="0.00 " /> <interpretationCode codeSystem="local" code="*" /> < referenceRange> <observationRange> <text>0.03-0.11</text > </observationRange> </referenceRange> </observation > </component> <component> <observation moodCode="EVN" classCode="OBS"> <templateId root="07.12.840.1.945221.03.15.22.4.2" /> <id nullFlavor="NA" /> <code codeSystem="local" code="PLTT" displayName="PLATELET COUNT" /> <statusCode code="completed" /> <effectiveTime value="471978441479" /> <value unit="k/cumm" xsi:type ="PQ" value="234" /> <referenceRange> <observationRange> <text>150-400</text> </observationRange> </ referenceRange> </observation> </component> <component> <observation moodCode="EVN" classCode="OBS"> <templateId root= "07.12.840.1.103036.03.15.22.4.2" /> <id nullFlavor="NA" /> < code codeSystem="local" code="IG%" displayName="IMMATURE GRANULOCYTE %" /> <statusCode code="completed" /> <effectiveTime value= "817166123966" /> <value unit="%" xsi:type="PQ" value="0.3" /> <referenceRange> <observationRange> <text>0.0-0.6< /text> </observationRange> </referenceRange> </ observation> </component> <component> <observation moodCode= "EVN" classCode="OBS"> <templateId root="07.12.840.1.501775.10...4.2 " /> <id nullFlavor="NA" /> <code codeSystem="local" code="IG# " displayName="IMMATURE GRANULOCYTE #" /> <statusCode code="completed" /> <effectiveTime value="037676488229" /> <value unit="k/cumm " xsi:type="PQ" value="0.02" /> <referenceRange> < observationRange> <text>0.00-0.09</text> </ observationRange> </referenceRange> </observation> </ component> </organizer> </entry> <entry> <organizer moodCode="EVN" classCode="BATTERY"> <templateId root="07.12.830.1.432627.10..22.4.1" /> <id nullFlavor="NA" /> <code codeSystem="local" code="METAB" displayName="METABOLIC PANEL, BASIC" /> <statusCode code="completed" /> <component> <observation moodCode="EVN" classCode="OBS"> < templateId root="07.12.840.1.075830.03.15.22.4.2" /> <id nullFlavor="NA " /> <code codeSystem="local" code="K" displayName="POTASSIUM" /> <statusCode code="completed" /> <effectiveTime value="540863263635 " /> <value unit="mmol/L" xsi:type="PQ" value="2.9" /> < interpretationCode codeSystem="local" code="*" /> <referenceRange> <observationRange> <text>3.5-5.3</text> </ observationRange> </referenceRange> </observation> </ component> <component> <observation moodCode="EVN" classCode="OBS"> <templateId root="07.12.840.1.015502.03.15.22.4.2" /> <id nullFlavor="NA" /> <code codeSystem="local" code="eGFR" displayName= "EST GFR (MDRD)" /> <statusCode code="completed" /> < effectiveTime value="045824889629" /> <value unit="mL/min" xsi:type="PQ " value="> 60" /> <referenceRange> <observationRange> <text>> 59</text> </observationRange> </ referenceRange> </observation> </component> <component> <observation moodCode="EVN" classCode="OBS"> <templateId root= "07.12.840.1.717848.03.15.22.4.2" /> <id nullFlavor="NA" /> < code codeSystem="local" code="GAP" displayName="ANION GAP" /> < statusCode code="completed" /> <effectiveTime value="218174728449" /> <value unit="mmol/L" xsi:type="PQ" value="9" /> < referenceRange> <observationRange> <text>5-15</text> </observationRange> </referenceRange> </observation> </component> <component> <observation moodCode="EVN" classCode= "OBS"> <templateId root="2.16.840.1.449850.10..22.4.2" /> < id nullFlavor="NA" /> <code codeSystem="local" code="eCrCl" displayName ="EST CrCl (CG)" /> <statusCode code="completed" /> < effectiveTime value="748990478220" /> <value unit="mL/min" xsi:type="PQ " value="> 60" /> <referenceRange> <observationRange> <text>> 59</text> </observationRange> </ referenceRange> </observation> </component> <component> <observation moodCode="EVN" classCode="OBS"> <templateId root= "2.16.840.1.008228.10..22.4.2" /> <id nullFlavor="NA" /> < code codeSystem="local" code="GLU" displayName="GLUCOSE" /> < statusCode code="completed" /> <effectiveTime value="880382260958" /> <value unit="mg/dL" xsi:type="PQ" value="113" /> < interpretationCode codeSystem="local" code="*" /> <referenceRange> <observationRange> <text>70-99</text> </ observationRange> </referenceRange> </observation> </ component> <component> <observation moodCode="EVN" classCode="OBS"> <templateId root="216.840.1.322699.10..22.4.2" /> <id nullFlavor="NA" /> <code codeSystem="local" code="CA" displayName= "CALCIUM" /> <statusCode code="completed" /> <effectiveTime value="630538298018" /> <value unit="mg/dL" xsi:type="PQ" value="8.5" / > <referenceRange> <observationRange> <text>8.5 -10.1</text> </observationRange> </referenceRange> </ observation> </component> <component> <observation moodCode= "EVN" classCode="OBS"> <templateId root="16.840.1.377877...22.4.2 " /> <id nullFlavor="NA" /> <code codeSystem="local" code="BUN " displayName="BLOOD UREA NITROGEN" /> <statusCode code="completed" /> <effectiveTime value="771336648832" /> <value unit="mg/dL" xsi:type="PQ" value="8" /> <referenceRange> < observationRange> <text>7-20</text> </observationRange> </referenceRange> </observation> </component> < component> <observation moodCode="EVN" classCode="OBS"> < templateId root="16.840.1.191159.10.20.22.4.2" /> <id nullFlavor="NA " /> <code codeSystem="local" code="CREAT" displayName="CREATININE" /> <statusCode code="completed" /> <effectiveTime value= "995625308233" /> <value unit="mg/dL" xsi:type="PQ" value="0.6" /> <referenceRange> <observationRange> <text>0.6-1.0< /text> </observationRange> </referenceRange> </ observation> </component> <component> <observation moodCode= "EVN" classCode="OBS"> <templateId root="216.840.1.215608.10..4.2 " /> <id nullFlavor="NA" /> <code codeSystem="local" code="NA " displayName="SODIUM" /> <statusCode code="completed" /> < effectiveTime value="187765613811" /> <value unit="mmol/L" xsi:type="PQ " value="138" /> <referenceRange> <observationRange> <text>135-148</text> </observationRange> </ referenceRange> </observation> </component> <component> <observation moodCode="EVN" classCode="OBS"> <templateId root= "216.840.1.034175.03.15.22.4.2" /> <id nullFlavor="NA" /> < code codeSystem="local" code="CL" displayName="CHLORIDE" /> < statusCode code="completed" /> <effectiveTime value="959772201987" /> <value unit="mmol/L" xsi:type="PQ" value="102" /> < referenceRange> <observationRange> <text>98-110</text> </observationRange> </referenceRange> </observation> </component> <component> <observation moodCode="EVN" classCode ="OBS"> <templateId root="16.840.1.089920.10.22.4.2" /> < id nullFlavor="NA" /> <code codeSystem="local" code="CO2" displayName= "CARBON DIOXIDE" /> <statusCode code="completed" /> < effectiveTime value="928059522624" /> <value unit="mmol/L" xsi:type="PQ " value="27" /> <referenceRange> <observationRange> <text>21-32</text> </observationRange> </ referenceRange> </observation> </component> </organizer> </entry > <entry> <organizer moodCode="EVN" classCode="BATTERY"> <templateId root="216.840.1.160291.10..22.4.1" /> <id nullFlavor="NA" /> <code codeSystem="local" code="UA" displayName="URINALYSIS, ROUTINE" /> < statusCode code="completed" /> <component> <observation moodCode= "EVN" classCode="OBS"> <templateId root="16.840.1.367944.10...4.2 " /> <id nullFlavor="NA" /> <code codeSystem="local" code= "LEUESU" displayName="UA LEUKOCYTE ESTERASE DIPSTICK" /> <statusCode code="completed" /> <effectiveTime value="003961400357" /> < value unit="" xsi:type="PQ" value="1+" /> <interpretationCode codeSystem="local" code="*" /> <referenceRange> < observationRange> <text>NEGATIVE</text> </ observationRange> </referenceRange> </observation> </ component> <component> <observation moodCode="EVN" classCode="OBS"> <templateId root="16.840.1.957288.10...4.2" /> <id nullFlavor="NA" /> <code codeSystem="local" code="NITRIU" displayName= "UA NITRITE DIPSTICK" /> <statusCode code="completed" /> < effectiveTime value="824352429421" /> <value unit="" xsi:type="PQ" value="POSITIVE" /> <interpretationCode codeSystem="local" code="*" /> <referenceRange> <observationRange> <text> NEGATIVE</text> </observationRange> </referenceRange> </observation> </component> <component> <observation moodCode ="EVN" classCode="OBS"> <templateId root= "16.840.1.525182.10..4.2" /> <id nullFlavor="NA" /> < code codeSystem="local" code="PROTEIU" displayName="UA PROTEIN DIPSTICK" /> <statusCode code="completed" /> <effectiveTime value= "872500839449" /> <value unit="" xsi:type="PQ" value="TRACE" /> <referenceRange> <observationRange> <text>NEGATIVE</ text> </observationRange> </referenceRange> </ observation> </component> <component> <observation moodCode= "EVN" classCode="OBS"> <templateId root="07.12.840.1.529518.10.4.2 " /> <id nullFlavor="NA" /> <code codeSystem="local" code= "DGLUU" displayName="UA GLUCOSE DIPSTICK" /> <statusCode code= "completed" /> <effectiveTime value="686174474331" /> <value unit="" xsi:type="PQ" value="NEGATIVE" /> <referenceRange> < observationRange> <text>NEGATIVE</text> </ observationRange> </referenceRange> </observation> </ component> <component> <observation moodCode="EVN" classCode="OBS"> <templateId root="07.12.840.1.051446.10.4.2" /> <id nullFlavor="NA" /> <code codeSystem="local" code="KETONU" displayName= "UA KETONE DIPSTICK" /> <statusCode code="completed" /> < effectiveTime value="144771537109" /> <value unit="" xsi:type="PQ" value="NEGATIVE" /> <referenceRange> <observationRange> <text>NEGATIVE</text> </observationRange> </ referenceRange> </observation> </component> <component> <observation moodCode="EVN" classCode="OBS"> <templateId root= "07.12.840.1.502857.03.15.22.4.2" /> <id nullFlavor="NA" /> < code codeSystem="local" code="UROBILU" displayName="UA UROBILINOGEN DIPSTICK" / > <statusCode code="completed" /> <effectiveTime value= "964097774964" /> <value unit="" xsi:type="PQ" value="NORMAL" /> <referenceRange> <observationRange> <text>NORMAL</ text> </observationRange> </referenceRange> </ observation> </component> <component> <observation moodCode= "EVN" classCode="OBS"> <templateId root="07.12.840.1.979645.03.15.22.4.2 " /> <id nullFlavor="NA" /> <code codeSystem="local" code= "BILU" displayName="UA BILIRUBIN DIPSTICK" /> <statusCode code= "completed" /> <effectiveTime value="766910179981" /> <value unit="" xsi:type="PQ" value="NEGATIVE" /> <referenceRange> < observationRange> <text>NEGATIVE</text> </ observationRange> </referenceRange> </observation> </ component> <component> <observation moodCode="EVN" classCode="OBS"> <templateId root="16.840.1.145105.10..4.2" /> <id nullFlavor="NA" /> <code codeSystem="local" code="LON" displayName="UA BLOOD DIPSTICK" /> <statusCode code="completed" /> < effectiveTime value="701610736655" /> <value unit="" xsi:type="PQ" value="3+" /> <interpretationCode codeSystem="local" code="*" /> <referenceRange> <observationRange> <text>NEGATIVE</ text> </observationRange> </referenceRange> </ observation> </component> <component> <observation moodCode= "EVN" classCode="OBS"> <templateId root="2.16.840.1.917416.10..22.4.2 " /> <id nullFlavor="NA" /> <code codeSystem="local" code= "SPGRU" displayName="UA SPECIFIC GRAVITY" /> <statusCode code= "completed" /> <effectiveTime value="852661717024" /> <value unit="" xsi:type="PQ" value="1.020" /> <referenceRange> < observationRange> <text>1.015-1.025</text> </ observationRange> </referenceRange> </observation> </ component> <component> <observation moodCode="EVN" classCode="OBS"> <templateId root="2.16.840.1.002736.10..22.4.2" /> <id nullFlavor="NA" /> <code codeSystem="local" code="WILLOW" displayName="UR PH" /> <statusCode code="completed" /> <effectiveTime value= "751417908202" /> <value unit="" xsi:type="PQ" value="6.0" /> <referenceRange> <observationRange> <text>5.0-7.0</text > </observationRange> </referenceRange> </observation > </component> </organizer> </entry> <entry> <organizer moodCode= "EVN" classCode="BATTERY"> <templateId root="840.1.117524.10..4.1 " /> <id nullFlavor="NA" /> <code codeSystem="local" code="UAMICROD" displayName="UA MICROSCOPIC" /> <statusCode code="completed" /> < component> <observation moodCode="EVN" classCode="OBS"> < templateId root="840.1.536043.03.15.22.4.2" /> <id nullFlavor="NA " /> <code codeSystem="local" code="BACU" displayName="UA BACTERIA" /> <statusCode code="completed" /> <effectiveTime value= "126900215335" /> <value unit="" xsi:type="PQ" value="5+" /> < interpretationCode codeSystem="local" code="*" /> <referenceRange> <observationRange> <text>NEGATIVE</text> </ observationRange> </referenceRange> </observation> </ component> <component> <observation moodCode="EVN" classCode="OBS"> <templateId root="840.1.593136.03.15.22.4.2" /> <id nullFlavor="NA" /> <code codeSystem="local" code="EPIU" displayName=" UA EPITHELIAL CELLS" /> <statusCode code="completed" /> < effectiveTime value="083611453933" /> <value unit="epi/hpf" xsi:type= "PQ" value="4+" /> <interpretationCode codeSystem="local" code="*" /> <referenceRange> <observationRange> <text>0 - 1 +</text> </observationRange> </referenceRange> </ observation> </component> <component> <observation moodCode= "EVN" classCode="OBS"> <templateId root="840.1.442499.10.20.22.4.2 " /> <id nullFlavor="NA" /> <code codeSystem="local" code= "RBCU" displayName="UA RBC" /> <statusCode code="completed" /> <effectiveTime value="679263342444" /> <value unit="rbc/hpf" xsi:type ="PQ" value=">100" /> <interpretationCode codeSystem="local" code="* " /> <referenceRange> <observationRange> <text> 0 - 3</text> </observationRange> </referenceRange> </ observation> </component> <component> <observation moodCode= "EVN" classCode="OBS"> <templateId root="07.12.840.1.511170.10.4.2 " /> <id nullFlavor="NA" /> <code codeSystem="local" code= "UAVOL" displayName="UA VOLUME FOR EXAM" /> <statusCode code="completed " /> <effectiveTime value="333839628187" /> <value unit="mL" xsi:type="PQ" value="12.0" /> <referenceRange> < observationRange> <text>(12mL STD)</text> </ observationRange> </referenceRange> </observation> </ component> <component> <observation moodCode="EVN" classCode="OBS"> <templateId root="07.12.840.1.561705.10..22.4.2" /> <id nullFlavor="NA" /> <code codeSystem="local" code="WBCU" displayName=" UA WBC" /> <statusCode code="completed" /> <effectiveTime value="245771748955" /> <value unit="wbc/hpf" xsi:type="PQ" value="> 100" /> <interpretationCode codeSystem="local" code="*" /> < referenceRange> <observationRange> <text>0 - 5</text> </observationRange> </referenceRange> </observation> </component> <component> <observation moodCode="EVN" classCode= "OBS"> <templateId root="216.840.1.038540.10..22.4.2" /> < id nullFlavor="NA" /> <code codeSystem="local" code="WBCCLUMPS" displayName="WBC CLUMPS" /> <statusCode code="completed" /> < effectiveTime value="300963793963" /> <value unit="" xsi:type="PQ" value="PRESENT" /> <interpretationCode codeSystem="local" code="*" /> <referenceRange> <observationRange> <text> NEGATIVE</text> </observationRange> </referenceRange> </observation> </component> </organizer> </entry> <entry> < organizer moodCode="EVN" classCode="BATTERY"> <templateId root= "16.840.1.753472.10..22.4.1" /> <id nullFlavor="NA" /> <code codeSystem="local" code="PREGU" displayName="UR TEST" /> < statusCode code="completed" /> <component> <observation moodCode= "EVN" classCode="OBS"> <templateId root="16.840.1.452880.10..22.4.2 " /> <id nullFlavor="NA" /> <code codeSystem="local" code= "PREGU" displayName="UR TEST" /> <statusCode code="completed " /> <effectiveTime value="850498814527" /> <value unit="" xsi :type="PQ" value="NEGATIVE" /> <referenceRange> < observationRange> <text>NEGATIVE</text> </ observationRange> </referenceRange> </observation> </ component> </organizer> </entry> <entry> <organizer moodCode="EVN" classCode="BATTERY"> <templateId root="2.16.840.1.466019.10.20.22.4.1" /> <id nullFlavor="NA" /> <code codeSystem="local" code="UC" displayName= "URINE CULTURE" /> <statusCode code="completed" /> <component> <observation moodCode="EVN" classCode="OBS"> <templateId root= "2.16.840.1.190924.10.20.22.4.2" /> <id nullFlavor="NA" /> < code codeSystem="local" code="MB" displayName="Microbiology" /> < statusCode code="completed" /> <effectiveTime value="800137423358" /> <value xsi:type="ST" value="<pre><b>URINE CULTURE</b&gt ; See [...] STRIMETH/SULFA VITEK >=[address] [facility] [place] [address]</pre>" /> <referenceRange> <observationRange> <text /> </observationRange> </referenceRange> </observation> </component> </organizer> < /entry> <entry> <organizer moodCode="EVN" classCode="BATTERY"> < templateId root="216.840.1.051279.10..22.4.1" /> <id nullFlavor="NA" /> <code codeSystem="local" code="METAB" displayName="METABOLIC PANEL, BASIC " /> <statusCode code="completed" /> <component> <observation moodCode="EVN" classCode="OBS"> <templateId root= "216.840.1.118585.10...4.2" /> <id nullFlavor="NA" /> < code codeSystem="local" code="K" displayName="POTASSIUM" /> < statusCode code="completed" /> <effectiveTime value="854256302943" /> <value unit="mmol/L" xsi:type="PQ" value="3.8" /> < referenceRange> <observationRange> <text>3.5-5.3</text> </observationRange> </referenceRange> </observation > </component> <component> <observation moodCode="EVN" classCode="OBS"> <templateId root="216.840.1.410138.10..22.4.2" /> <id nullFlavor="NA" /> <code codeSystem="local" code="eGFR" displayName="EST GFR (MDRD)" /> <statusCode code="completed" /> <effectiveTime value="948225249904" /> <value unit="mL/min" xsi:type ="PQ" value="> 60" /> <referenceRange> <observationRange > <text>> 59</text> </observationRange> </ referenceRange> </observation> </component> <component> <observation moodCode="EVN" classCode="OBS"> <templateId root= "216.840.1.529702.10..22.4.2" /> <id nullFlavor="NA" /> < code codeSystem="local" code="GAP" displayName="ANION GAP" /> < statusCode code="completed" /> <effectiveTime value="750796685246" /> <value unit="mmol/L" xsi:type="PQ" value="6" /> < referenceRange> <observationRange> <text>5-15</text> </observationRange> </referenceRange> </observation> </component> <component> <observation moodCode="EVN" classCode= "OBS"> <templateId root="216.840.1.262052...4.2" /> < id nullFlavor="NA" /> <code codeSystem="local" code="eCrCl" displayName ="EST CrCl (CG)" /> <statusCode code="completed" /> < effectiveTime value="233675518794" /> <value unit="mL/min" xsi:type="PQ " value="> 60" /> <referenceRange> <observationRange> <text>> 59</text> </observationRange> </ referenceRange> </observation> </component> <component> <observation moodCode="EVN" classCode="OBS"> <templateId root= "16.840.1.206617.03.15.22.4.2" /> <id nullFlavor="NA" /> < code codeSystem="local" code="GLU" displayName="GLUCOSE" /> < statusCode code="completed" /> <effectiveTime value="641594297620" /> <value unit="mg/dL" xsi:type="PQ" value="107" /> < interpretationCode codeSystem="local" code="*" /> <referenceRange> <observationRange> <text>70-99</text> </ observationRange> </referenceRange> </observation> </ component> <component> <observation moodCode="EVN" classCode="OBS"> <templateId root="216.840.1.644698.03.15.22.4.2" /> <id nullFlavor="NA" /> <code codeSystem="local" code="CA" displayName= "CALCIUM" /> <statusCode code="completed" /> <effectiveTime value="213056689441" /> <value unit="mg/dL" xsi:type="PQ" value="8.6" / > <referenceRange> <observationRange> <text>8.5 -10.1</text> </observationRange> </referenceRange> </ observation> </component> <component> <observation moodCode= "EVN" classCode="OBS"> <templateId root="07.12.840.1.656630.03.15.22.4.2 " /> <id nullFlavor="NA" /> <code codeSystem="local" code="BUN " displayName="BLOOD UREA NITROGEN" /> <statusCode code="completed" /> <effectiveTime value="374514641700" /> <value unit="mg/dL" xsi:type="PQ" value="10" /> <referenceRange> < observationRange> <text>7-20</text> </observationRange> </referenceRange> </observation> </component> < component> <observation moodCode="EVN" classCode="OBS"> < templateId root="07.12.840.1.599185.03.15.22.4.2" /> <id nullFlavor="NA " /> <code codeSystem="local" code="CREAT" displayName="CREATININE" /> <statusCode code="completed" /> <effectiveTime value= "653687066216" /> <value unit="mg/dL" xsi:type="PQ" value="0.8" /> <referenceRange> <observationRange> <text>0.6-1.0< /text> </observationRange> </referenceRange> </ observation> </component> <component> <observation moodCode= "EVN" classCode="OBS"> <templateId root="16.840.1.117024.10..4.2 " /> <id nullFlavor="NA" /> <code codeSystem="local" code="NA " displayName="SODIUM" /> <statusCode code="completed" /> < effectiveTime value="562571319365" /> <value unit="mmol/L" xsi:type="PQ " value="140" /> <referenceRange> <observationRange> <text>135-148</text> </observationRange> </ referenceRange> </observation> </component> <component> <observation moodCode="EVN" classCode="OBS"> <templateId root= "840.1.590570...4.2" /> <id nullFlavor="NA" /> < code codeSystem="local" code="CL" displayName="CHLORIDE" /> < statusCode code="completed" /> <effectiveTime value="987480802871" /> <value unit="mmol/L" xsi:type="PQ" value="105" /> < referenceRange> <observationRange> <text>98-110</text> </observationRange> </referenceRange> </observation> </component> <component> <observation moodCode="EVN" classCode ="OBS"> <templateId root="07.12.840.1.725696.10..22.4.2" /> < id nullFlavor="NA" /> <code codeSystem="local" code="CO2" displayName= "CARBON DIOXIDE" /> <statusCode code="completed" /> < effectiveTime value="393475178479" /> <value unit="mmol/L" xsi:type="PQ " value="29" /> <referenceRange> <observationRange> <text>21-32</text> </observationRange> </ referenceRange> </observation> </component> </organizer> </entry > <entry> <organizer moodCode="EVN" classCode="BATTERY"> <templateId root="16.840.1.833930.10..4.1" /> <id nullFlavor="NA" /> <code codeSystem="local" code="CBCD" displayName="CBC W/DIFF" /> <statusCode code ="completed" /> <component> <observation moodCode="EVN" classCode= "OBS"> <templateId root="2.840.1.497265.03.15.22.4.2" /> < id nullFlavor="NA" /> <code codeSystem="local" code="BA#" displayName= "BASOPHIL #" /> <statusCode code="completed" /> < effectiveTime value="252217884257" /> <value unit="k/cumm" xsi:type="PQ " value="0.0" /> <referenceRange> <observationRange> <text>0.0-0.2</text> </observationRange> </ referenceRange> </observation> </component> <component> <observation moodCode="EVN" classCode="OBS"> <templateId root= "216.840.1.511688.10..4.2" /> <id nullFlavor="NA" /> < code codeSystem="local" code="BA%" displayName="BASOPHIL %" /> <statusCode code="completed" /> <effectiveTime value="208437099576" /> <value unit="%" xsi:type="PQ" value="0.8" /> < referenceRange> <observationRange> <text>0-1</text> </observationRange> </referenceRange> </observation> </component> <component> <observation moodCode="EVN" classCode= "OBS"> <templateId root="216.840.1.518704.10..4.2" /> < id nullFlavor="NA" /> <code codeSystem="local" code="EO#" displayName= "EOSINOPHIL #" /> <statusCode code="completed" /> < effectiveTime value="833428042787" /> <value unit="k/cumm" xsi:type="PQ " value="0.1" /> <referenceRange> <observationRange> <text>0.1-0.5</text> </observationRange> </ referenceRange> </observation> </component> <component> <observation moodCode="EVN" classCode="OBS"> <templateId root= "16.840.1.866205.03.15.22.4.2" /> <id nullFlavor="NA" /> < code codeSystem="local" code="EO%" displayName="EOSINOPHIL %" /> <statusCode code="completed" /> <effectiveTime value="555927735745" /> <value unit="%" xsi:type="PQ" value="1.0" /> < interpretationCode codeSystem="local" code="*" /> <referenceRange> <observationRange> <text>2-4</text> </ observationRange> </referenceRange> </observation> </ component> <component> <observation moodCode="EVN" classCode="OBS"> <templateId root="16.840.1.529299.03.15.22.4.2" /> <id nullFlavor="NA" /> <code codeSystem="local" code="GR#" displayName= "GRANULOCYTE #" /> <statusCode code="completed" /> < effectiveTime value="726476592219" /> <value unit="k/cumm" xsi:type="PQ " value="2.8" /> <referenceRange> <observationRange> <text>2.0-9.0</text> </observationRange> </ referenceRange> </observation> </component> <component> <observation moodCode="EVN" classCode="OBS"> <templateId root= "2.16.840.1.468116.10...4.2" /> <id nullFlavor="NA" /> < code codeSystem="local" code="GR%" displayName="GRANULOCYTE %" /> <statusCode code="completed" /> <effectiveTime value="469466143832 " /> <value unit="%" xsi:type="PQ" value="57.7" /> < referenceRange> <observationRange> <text>50-75</text> </observationRange> </referenceRange> </observation> </component> <component> <observation moodCode="EVN" classCode= "OBS"> <templateId root="2.16.840.1.996220....4.2" /> < id nullFlavor="NA" /> <code codeSystem="local" code="LY#" displayName= "LYMPHOCYTE #" /> <statusCode code="completed" /> < effectiveTime value="014457955706" /> <value unit="k/cumm" xsi:type="PQ " value="1.7" /> <referenceRange> <observationRange> <text>1.0-4.0</text> </observationRange> </ referenceRange> </observation> </component> <component> <observation moodCode="EVN" classCode="OBS"> <templateId root= "216.840.1.796994.10..4.2" /> <id nullFlavor="NA" /> < code codeSystem="local" code="LY%" displayName="LYMPHOCYTE %" /> <statusCode code="completed" /> <effectiveTime value="052184510078" /> <value unit="%" xsi:type="PQ" value="34.2" /> < interpretationCode codeSystem="local" code="*" /> <referenceRange> <observationRange> <text>20-30</text> </ observationRange> </referenceRange> </observation> </ component> <component> <observation moodCode="EVN" classCode="OBS"> <templateId root="07.12.840.1.069847.104.2" /> <id nullFlavor="NA" /> <code codeSystem="local" code="MCH" displayName= "MEAN CELL HGB" /> <statusCode code="completed" /> < effectiveTime value="703218349975" /> <value unit="pg" xsi:type="PQ" value="24.9" /> <interpretationCode codeSystem="local" code="*" /> <referenceRange> <observationRange> <text>27.0- 33.0</text> </observationRange> </referenceRange> </ observation> </component> <component> <observation moodCode= "EVN" classCode="OBS"> <templateId root="16.840.1.472680.10..4.2 " /> <id nullFlavor="NA" /> <code codeSystem="local" code= "MCHC" displayName="MEAN CELL HGB CONCENTRATION" /> <statusCode code= "completed" /> <effectiveTime value="332498897148" /> <value unit="g/dL" xsi:type="PQ" value="30.3" /> <interpretationCode codeSystem="local" code="*" /> <referenceRange> < observationRange> <text>32.0-37.0</text> </ observationRange> </referenceRange> </observation> </ component> <component> <observation moodCode="EVN" classCode="OBS"> <templateId root="16.840.1.283194.10.20.22.4.2" /> <id nullFlavor="NA" /> <code codeSystem="local" code="MCV" displayName= "MEAN CELL VOLUME" /> <statusCode code="completed" /> < effectiveTime value="331032785811" /> <value unit="fl" xsi:type="PQ" value="82.2" /> <referenceRange> <observationRange> <text>80.0-100.0</text> </observationRange> </ referenceRange> </observation> </component> <component> <observation moodCode="EVN" classCode="OBS"> <templateId root= "16.840.1.325475.10.20.22.4.2" /> <id nullFlavor="NA" /> < code codeSystem="local" code="MO#" displayName="MONOCYTE #" /> < statusCode code="completed" /> <effectiveTime value="906086571943" /> <value unit="k/cumm" xsi:type="PQ" value="0.3" /> < referenceRange> <observationRange> <text>0.1-1.0</text> </observationRange> </referenceRange> </observation > </component> <component> <observation moodCode="EVN" classCode="OBS"> <templateId root="16.840.1.560824.10.2022.4.2" /> <id nullFlavor="NA" /> <code codeSystem="local" code="MO% " displayName="MONOCYTE %" /> <statusCode code="completed" /> <effectiveTime value="424977195373" /> <value unit="%" xsi: type="PQ" value="6.1" /> <interpretationCode codeSystem="local" code="* " /> <referenceRange> <observationRange> <text> 4-6</text> </observationRange> </referenceRange> </ observation> </component> <component> <observation moodCode= "EVN" classCode="OBS"> <templateId root="07.12.840.1.360304.1022.4.2 " /> <id nullFlavor="NA" /> <code codeSystem="local" code= "MPVT" displayName="MEAN PLATELET VOLUME" /> <statusCode code= "completed" /> <effectiveTime value="512157526827" /> <value unit="fl" xsi:type="PQ" value="9.0" /> <referenceRange> < observationRange> <text>8.5-10.9</text> </ observationRange> </referenceRange> </observation> </ component> <component> <observation moodCode="EVN" classCode="OBS"> <templateId root="07.12.840.1.300611.10.2022.4.2" /> <id nullFlavor="NA" /> <code codeSystem="local" code="RBC" displayName=" RED BLOOD CELL" /> <statusCode code="completed" /> < effectiveTime value="338134090219" /> <value unit="m/cumm" xsi:type="PQ " value="4.21" /> <referenceRange> <observationRange> <text>4.00-6.00</text> </observationRange> </ referenceRange> </observation> </component> <component> <observation moodCode="EVN" classCode="OBS"> <templateId root= "07.12.840.1.353920.10.20.22.4.2" /> <id nullFlavor="NA" /> < code codeSystem="local" code="RDW" displayName="RED CELL DISTRIBUTION WIDTH" /> <statusCode code="completed" /> <effectiveTime value= "265926570551" /> <value unit="%" xsi:type="PQ" value="15.7" /> <interpretationCode codeSystem="local" code="*" /> < referenceRange> <observationRange> <text>11.0-15.6</text > </observationRange> </referenceRange> </observation > </component> <component> <observation moodCode="EVN" classCode="OBS"> <templateId root="07.12.840.1.037482.1022.4.2" /> <id nullFlavor="NA" /> <code codeSystem="local" code="WBC" displayName="WHITE BLOOD CELL" /> <statusCode code="completed" /> <effectiveTime value="599313368312" /> <value unit="k/cumm" xsi: type="PQ" value="4.9" /> <interpretationCode codeSystem="local" code="* " /> <referenceRange> <observationRange> <text> 5.0-10.0</text> </observationRange> </referenceRange> </observation> </component> <component> <observation moodCode ="EVN" classCode="OBS"> <templateId root= "07.12.840.1.566279.10.20.22.4.2" /> <id nullFlavor="NA" /> < code codeSystem="local" code="HGBT" displayName="HEMOGLOBIN" /> < statusCode code="completed" /> <effectiveTime value="011036742361" /> <value unit="gm/dL" xsi:type="PQ" value="10.5" /> < interpretationCode codeSystem="local" code="*" /> <referenceRange> <observationRange> <text>12.0-16.0</text> </ observationRange> </referenceRange> </observation> </ component> <component> <observation moodCode="EVN" classCode="OBS"> <templateId root="2.16.840.1.742669.10...4.2" /> <id nullFlavor="NA" /> <code codeSystem="local" code="HCTT" displayName= "HEMATOCRIT" /> <statusCode code="completed" /> < effectiveTime value="426163148104" /> <value unit="%" xsi:type="PQ " value="34.6" /> <interpretationCode codeSystem="local" code="*" /> <referenceRange> <observationRange> <text>37.0- 47.0</text> </observationRange> </referenceRange> </ observation> </component> <component> <observation moodCode= "EVN" classCode="OBS"> <templateId root="2.16.840.1.694047.10.20.4.2 " /> <id nullFlavor="NA" /> <code codeSystem="local" code= "NRBC%" displayName="NRBC %" /> <statusCode code="completed" / > <effectiveTime value="970108482547" /> <value unit="/100WBC " xsi:type="PQ" value="0.0" /> <referenceRange> < observationRange> <text>0.0-0.0</text> </ observationRange> </referenceRange> </observation> </ component> <component> <observation moodCode="EVN" classCode="OBS"> <templateId root="2.16.840.1.702840.10.20.4.2" /> <id nullFlavor="NA" /> <code codeSystem="local" code="NRBC#" displayName= "NRBC #" /> <statusCode code="completed" /> <effectiveTime value="903108970390" /> <value unit="k/cumm" xsi:type="PQ" value="0.00 " /> <interpretationCode codeSystem="local" code="*" /> < referenceRange> <observationRange> <text>0.03-0.11</text > </observationRange> </referenceRange> </observation > </component> <component> <observation moodCode="EVN" classCode="OBS"> <templateId root="16.840.1.511575.104.2" /> <id nullFlavor="NA" /> <code codeSystem="local" code="PLTT" displayName="PLATELET COUNT" /> <statusCode code="completed" /> <effectiveTime value="662600537507" /> <value unit="k/cumm" xsi:type ="PQ" value="296" /> <referenceRange> <observationRange> <text>150-400</text> </observationRange> </ referenceRange> </observation> </component> <component> <observation moodCode="EVN" classCode="OBS"> <templateId root= "216.840.1.025813.10..4.2" /> <id nullFlavor="NA" /> < code codeSystem="local" code="IG%" displayName="IMMATURE GRANULOCYTE %" /> <statusCode code="completed" /> <effectiveTime value= "351951042564" /> <value unit="%" xsi:type="PQ" value="0.2" /> <referenceRange> <observationRange> <text>0.0-0.6< /text> </observationRange> </referenceRange> </ observation> </component> <component> <observation moodCode= "EVN" classCode="OBS"> <templateId root="840.1.215424.03.15.22.4.2 " /> <id nullFlavor="NA" /> <code codeSystem="local" code="IG# " displayName="IMMATURE GRANULOCYTE #" /> <statusCode code="completed" /> <effectiveTime value="480092362110" /> <value unit="k/cumm " xsi:type="PQ" value="0.01" /> <referenceRange> < observationRange> <text>0.00-0.09</text> </ observationRange> </referenceRange> </observation> </ component> </organizer> </entry> <entry> <organizer moodCode="EVN" classCode="BATTERY"> <templateId root="840.1.463448.03.15.22.4.1" /> <id nullFlavor="NA" /> <code codeSystem="local" code="CBCD" displayName="CBC W/DIFF" /> <statusCode code="completed" /> <component > <observation moodCode="EVN" classCode="OBS"> <templateId root= "840.1.879317.03.15.224.2" /> <id nullFlavor="NA" /> < code codeSystem="local" code="BA#" displayName="BASOPHIL #" /> < statusCode code="completed" /> <effectiveTime value="777036266632" /> <value unit="k/cumm" xsi:type="PQ" value="0.1" /> < referenceRange> <observationRange> <text>0.0-0.2</text> </observationRange> </referenceRange> </observation > </component> <component> <observation moodCode="EVN" classCode="OBS"> <templateId root="216.840.1.059787.03.15.22.4.2" /> <id nullFlavor="NA" /> <code codeSystem="local" code="BA% " displayName="BASOPHIL %" /> <statusCode code="completed" /> <effectiveTime value="447996600820" /> <value unit="%" xsi: type="PQ" value="1.0" /> <referenceRange> <observationRange > <text>0-1</text> </observationRange> </ referenceRange> </observation> </component> <component> <observation moodCode="EVN" classCode="OBS"> <templateId root= "2.16.840.1.863603.03.15.22.4.2" /> <id nullFlavor="NA" /> < code codeSystem="local" code="GR#" displayName="GRANULOCYTE #" /> < statusCode code="completed" /> <effectiveTime value="326967952627" /> <value unit="k/cumm" xsi:type="PQ" value="11.0" /> < interpretationCode codeSystem="local" code="*" /> <referenceRange> <observationRange> <text>2.0-9.0</text> </ observationRange> </referenceRange> </observation> </ component> <component> <observation moodCode="EVN" classCode="OBS"> <templateId root="216.840.1.614607..4.2" /> <id nullFlavor="NA" /> <code codeSystem="local" code="LY#" displayName= "LYMPHOCYTE #" /> <statusCode code="completed" /> < effectiveTime value="" /> <value unit="k/cumm" xsi:type="PQ " value="1.6" /> <referenceRange> <observationRange> <text>1.0-4.0</text> </observationRange> </ referenceRange> </observation> </component> <component> <observation moodCode="EVN" classCode="OBS"> <templateId root= "216.840.1.879973.03.15.224.2" /> <id nullFlavor="NA" /> < code codeSystem="local" code="LY%" displayName="LYMPHOCYTE %" /> <statusCode code="completed" /> <effectiveTime value="" /> <value unit="%" xsi:type="PQ" value="11.0" /> < interpretationCode codeSystem="local" code="*" /> <referenceRange> <observationRange> <text>20-30</text> </ observationRange> </referenceRange> </observation> </ component> <component> <observation moodCode="EVN" classCode="OBS"> <templateId root="216.840.1.618654.104.2" /> <id nullFlavor="NA" /> <code codeSystem="local" code="MCH" displayName= "MEAN CELL HGB" /> <statusCode code="completed" /> < effectiveTime value="" /> <value unit="pg" xsi:type="PQ" value="23.3" /> <interpretationCode codeSystem="local" code="*" /> <referenceRange> <observationRange> <text>27.0- 33.0</text> </observationRange> </referenceRange> </ observation> </component> <component> <observation moodCode= "EVN" classCode="OBS"> <templateId root="07.12.840.1.619310.10.20.22.4.2 " /> <id nullFlavor="NA" /> <code codeSystem="local" code= "MCHC" displayName="MEAN CELL HGB CONCENTRATION" /> <statusCode code= "completed" /> <effectiveTime value="708507155873" /> <value unit="g/dL" xsi:type="PQ" value="30.2" /> <interpretationCode codeSystem="local" code="*" /> <referenceRange> < observationRange> <text>32.0-37.0</text> </ observationRange> </referenceRange> </observation> </ component> <component> <observation moodCode="EVN" classCode="OBS"> <templateId root="840.1.648666.10..22.4.2" /> <id nullFlavor="NA" /> <code codeSystem="local" code="MCV" displayName= "MEAN CELL VOLUME" /> <statusCode code="completed" /> < effectiveTime value="305468725919" /> <value unit="fl" xsi:type="PQ" value="77.3" /> <interpretationCode codeSystem="local" code="*" /> <referenceRange> <observationRange> <text>80.0- 100.0</text> </observationRange> </referenceRange> </ observation> </component> <component> <observation moodCode= "EVN" classCode="OBS"> <templateId root="07.12.840.1.401037.10.20.22.4.2 " /> <id nullFlavor="NA" /> <code codeSystem="local" code="MO# " displayName="MONOCYTE #" /> <statusCode code="completed" /> <effectiveTime value="" /> <value unit="k/cumm" xsi:type= "PQ" value="1.6" /> <interpretationCode codeSystem="local" code="*" /> <referenceRange> <observationRange> <text>0.1- 1.0</text> </observationRange> </referenceRange> </ observation> </component> <component> <observation moodCode= "EVN" classCode="OBS"> <templateId root="216.840.1.503018.10..4.2 " /> <id nullFlavor="NA" /> <code codeSystem="local" code="MO& #37;" displayName="MONOCYTE %" /> <statusCode code="completed" /> <effectiveTime value="" /> <value unit="%" xsi :type="PQ" value="11.0" /> <interpretationCode codeSystem="local" code= "*" /> <referenceRange> <observationRange> < text>4-6</text> </observationRange> </referenceRange> </observation> </component> <component> <observation moodCode ="EVN" classCode="OBS"> <templateId root= "16.840.1.970203.03.15.22.4.2" /> <id nullFlavor="NA" /> < code codeSystem="local" code="MPVT" displayName="MEAN PLATELET VOLUME" /> <statusCode code="completed" /> <effectiveTime value=" " /> <value unit="fl" xsi:type="PQ" value="9.9" /> < referenceRange> <observationRange> <text>8.5-10.9</text > </observationRange> </referenceRange> </observation > </component> <component> <observation moodCode="EVN" classCode="OBS"> <templateId root="840.1.853996.03.15.22.4.2" /> <id nullFlavor="NA" /> <code codeSystem="local" code="OVAL" displayName="OVALOCYTES" /> <statusCode code="completed" /> < effectiveTime value="" /> <value unit="" xsi:type="PQ" value="NOTED" /> <referenceRange> <observationRange> <text /> </observationRange> </referenceRange> </observation> </component> <component> <observation moodCode ="EVN" classCode="OBS"> <templateId root= "840.1.955094.03.15.22.4.2" /> <id nullFlavor="NA" /> < code codeSystem="local" code="RBC" displayName="RED BLOOD CELL" /> < statusCode code="completed" /> <effectiveTime value="" /> <value unit="m/cumm" xsi:type="PQ" value="4.50" /> < referenceRange> <observationRange> <text>4.00-6.00</text > </observationRange> </referenceRange> </observation > </component> <component> <observation moodCode="EVN" classCode="OBS"> <templateId root="840.1.583323.1022.4.2" /> <id nullFlavor="NA" /> <code codeSystem="local" code="RDW" displayName="RED CELL DISTRIBUTION WIDTH" /> <statusCode code= "completed" /> <effectiveTime value="" /> <value unit="%" xsi:type="PQ" value="16.8" /> <interpretationCode codeSystem="local" code="*" /> <referenceRange> < observationRange> <text>11.0-15.6</text> </ observationRange> </referenceRange> </observation> </ component> <component> <observation moodCode="EVN" classCode="OBS"> <templateId root="216.840.1.719997.03.15.22.4.2" /> <id nullFlavor="NA" /> <code codeSystem="local" code="WBC" displayName= "WHITE BLOOD CELL" /> <statusCode code="completed" /> < effectiveTime value="364848335447" /> <value unit="k/cumm" xsi:type="PQ " value="14.3" /> <interpretationCode codeSystem="local" code="*" /> <referenceRange> <observationRange> <text>5.0- 10.0</text> </observationRange> </referenceRange> </ observation> </component> <component> <observation moodCode= "EVN" classCode="OBS"> <templateId root="216.840.1.634197.03.15.22.4.2 " /> <id nullFlavor="NA" /> <code codeSystem="local" code= "HGBT" displayName="HEMOGLOBIN" /> <statusCode code="completed" /> <effectiveTime value="109740247857" /> <value unit="gm/dL" xsi: type="PQ" value="10.5" /> <interpretationCode codeSystem="local" code= "*" /> <referenceRange> <observationRange> < text>12.0-16.0</text> </observationRange> </referenceRange> </observation> </component> <component> <observation moodCode="EVN" classCode="OBS"> <templateId root= "216.840.1.487724.1022.4.2" /> <id nullFlavor="NA" /> < code codeSystem="local" code="HCTT" displayName="HEMATOCRIT" /> < statusCode code="completed" /> <effectiveTime value="136979844538" /> <value unit="%" xsi:type="PQ" value="34.8" /> < interpretationCode codeSystem="local" code="*" /> <referenceRange> <observationRange> <text>37.0-47.0</text> </ observationRange> </referenceRange> </observation> </ component> <component> <observation moodCode="EVN" classCode="OBS"> <templateId root="07.12.840.1.165569.03.15.22.4.2" /> <id nullFlavor="NA" /> <code codeSystem="local" code="NRBC%" displayName="NRBC %" /> <statusCode code="completed" /> < effectiveTime value="576797871053" /> <value unit="/100WBC" xsi:type= "PQ" value="0.0" /> <referenceRange> <observationRange> <text>0.0-0.0</text> </observationRange> </ referenceRange> </observation> </component> <component> <observation moodCode="EVN" classCode="OBS"> <templateId root= "07.12.840.1.905907.10...4.2" /> <id nullFlavor="NA" /> < code codeSystem="local" code="PLTT" displayName="PLATELET COUNT" /> < statusCode code="completed" /> <effectiveTime value="502686307179" /> <value unit="k/cumm" xsi:type="PQ" value="235" /> < referenceRange> <observationRange> <text>150-400</text> </observationRange> </referenceRange> </observation > </component> <component> <observation moodCode="EVN" classCode="OBS"> <templateId root="2.840.1.434187.10.20.22.4.2" /> <id nullFlavor="NA" /> <code codeSystem="local" code="IG% " displayName="IMMATURE GRANULOCYTE %" /> <statusCode code= "completed" /> <effectiveTime value="756951848044" /> <value unit="%" xsi:type="PQ" value="0.4" /> <referenceRange> < observationRange> <text>0.0-0.6</text> </ observationRange> </referenceRange> </observation> </ component> <component> <observation moodCode="EVN" classCode="OBS"> <templateId root="07.12.840.1.439898.10..4.2" /> <id nullFlavor="NA" /> <code codeSystem="local" code="IG#" displayName= "IMMATURE GRANULOCYTE #" /> <statusCode code="completed" /> < effectiveTime value="564061171162" /> <value unit="k/cumm" xsi:type="PQ " value="0.05" /> <referenceRange> <observationRange> <text>0.00-0.09</text> </observationRange> </ referenceRange> </observation> </component> </organizer> </entry > <entry> <organizer moodCode="EVN" classCode="BATTERY"> <templateId root="07.12.840.1.562687.10..22.4.1" /> <id nullFlavor="NA" /> <code codeSystem="local" code="DIFFM" displayName="MANUAL DIFF(R)" /> < statusCode code="completed" /> <component> <observation moodCode= "EVN" classCode="OBS"> <templateId root="16.840.1.841500.104.2 " /> <id nullFlavor="NA" /> <code codeSystem="local" code= "BAND%" displayName="BAND %" /> <statusCode code="completed" / > <effectiveTime value="" /> <value unit="%" xsi:type="PQ" value="3" /> <referenceRange> < observationRange> <text>0-10</text> </observationRange> </referenceRange> </observation> </component> < component> <observation moodCode="EVN" classCode="OBS"> < templateId root="07.12.840.1.399214.104.2" /> <id nullFlavor="NA " /> <code codeSystem="local" code="MANDIFF" displayName="DIFFERENTIAL " /> <statusCode code="completed" /> <effectiveTime value= "" /> <value unit="" xsi:type="PQ" value="MANUAL" /> <referenceRange> <observationRange> <text /> </observationRange> </referenceRange> </observation> < /component> <component> <observation moodCode="EVN" classCode="OBS" > <templateId root="07.12.840.1.536988.104.2" /> <id nullFlavor="NA" /> <code codeSystem="local" code="SEG%" displayName ="SEGMENTED NEUTROPHIL %" /> <statusCode code="completed" /> <effectiveTime value="" /> <value unit="%" xsi:type ="PQ" value="74" /> <interpretationCode codeSystem="local" code="*" /> <referenceRange> <observationRange> <text>50- 70</text> </observationRange> </referenceRange> </ observation> </component> </organizer> </entry> <entry> <organizer moodCode="EVN" classCode="BATTERY"> <templateId root= "07.12.840.1.988900.10...4.1" /> <id nullFlavor="NA" /> <code codeSystem="local" code="LIVER" displayName="HEPATIC FUNCTION PANEL" /> < statusCode code="completed" /> <component> <observation moodCode= "EVN" classCode="OBS"> <templateId root="16.840.1.210771.10...4.2 " /> <id nullFlavor="NA" /> <code codeSystem="local" code= "BILUC" displayName="BILI UNCONJUGATED" /> <statusCode code="completed " /> <effectiveTime value="" /> <value unit="mg/dL " xsi:type="PQ" value="0.3" /> <referenceRange> < observationRange> <text>0.0-0.7</text> </ observationRange> </referenceRange> </observation> </ component> <component> <observation moodCode="EVN" classCode="OBS"> <templateId root="07.12.840.1.909249.10..4.2" /> <id nullFlavor="NA" /> <code codeSystem="local" code="AST" displayName="AST /SGOT" /> <statusCode code="completed" /> <effectiveTime value ="" /> <value unit="Units/L" xsi:type="PQ" value="59" /> <interpretationCode codeSystem="local" code="*" /> < referenceRange> <observationRange> <text>10-37</text> </observationRange> </referenceRange> </observation> </component> <component> <observation moodCode="EVN" classCode= "OBS"> <templateId root="07.12.840.1.502216.10.20.22.4.2" /> < id nullFlavor="NA" /> <code codeSystem="local" code="ALT" displayName= "ALT/SGPT" /> <statusCode code="completed" /> <effectiveTime value="" /> <value unit="Units/L" xsi:type="PQ" value="35" /> <referenceRange> <observationRange> <text>& lt; 66</text> </observationRange> </referenceRange> < /observation> </component> <component> <observation moodCode= "EVN" classCode="OBS"> <templateId root="840.1.373917.1022.4.2 " /> <id nullFlavor="NA" /> <code codeSystem="local" code="TP " displayName="TOTAL PROTEIN" /> <statusCode code="completed" /> <effectiveTime value="788256875435" /> <value unit="gm/dL" xsi:type ="PQ" value="8.0" /> <referenceRange> <observationRange> <text>6.4-8.2</text> </observationRange> </ referenceRange> </observation> </component> <component> <observation moodCode="EVN" classCode="OBS"> <templateId root= "07.12.840.1.179639.10.2022.4.2" /> <id nullFlavor="NA" /> < code codeSystem="local" code="ALB" displayName="ALBUMIN" /> < statusCode code="completed" /> <effectiveTime value="736706866966" /> <value unit="gm/dL" xsi:type="PQ" value="3.5" /> < referenceRange> <observationRange> <text>3.4-5.0</text> </observationRange> </referenceRange> </observation > </component> <component> <observation moodCode="EVN" classCode="OBS"> <templateId root="07.12.840.1.576655.10..22.4.2" /> <id nullFlavor="NA" /> <code codeSystem="local" code="BILTOT" displayName="BILI TOTAL" /> <statusCode code="completed" /> < effectiveTime value="312472306948" /> <value unit="mg/dL" xsi:type="PQ " value="0.4" /> <referenceRange> <observationRange> <text>0.0-1.0</text> </observationRange> </ referenceRange> </observation> </component> <component> <observation moodCode="EVN" classCode="OBS"> <templateId root= "07.12.840.1.466446.10..22.4.2" /> <id nullFlavor="NA" /> < code codeSystem="local" code="ALKP" displayName="ALKALINE PHOSPHATASE TOTAL" /> <statusCode code="completed" /> <effectiveTime value= "589289445834" /> <value unit="IU/L" xsi:type="PQ" value="121" /> <interpretationCode codeSystem="local" code="*" /> <referenceRange > <observationRange> <text>45-117</text> </ observationRange> </referenceRange> </observation> </ component> <component> <observation moodCode="EVN" classCode="OBS"> <templateId root="07.12.830.1.179390.10...4.2" /> <id nullFlavor="NA" /> <code codeSystem="local" code="BILC" displayName= "BILI CONJUGATED" /> <statusCode code="completed" /> < effectiveTime value="[id number]" /> <value unit="mg/dL" xsi:type="PQ " value="0.1" /> <referenceRange> <observationRange> <text>0.0-0.3</text> </observationRange> </ referenceRange> </observation> </component> </organizer> </entry > <entry> <organizer moodCode="EVN" classCode="BATTERY"> <templateId root="216.840.1.468050.10..22.4.1" /> <id nullFlavor="NA" /> <code codeSystem="local" code="LIP" displayName="LIPASE" /> <statusCode code= "completed" /> <component> <observation moodCode="EVN" classCode= "OBS"> <templateId root="216.840.1.151149.10..22.4.2" /> < id nullFlavor="NA" /> <code codeSystem="local" code="LIP" displayName= "LIPASE" /> <statusCode code="completed" /> <effectiveTime value="100806057914" /> <value unit="Units/L" xsi:type="PQ" value="62" /> <interpretationCode codeSystem="local" code="*" /> < referenceRange> <observationRange> <text>73-393</text> </observationRange> </referenceRange> </observation> </component> </organizer> </entry> <entry> <organizer moodCode= "EVN" classCode="BATTERY"> <templateId root="216.840.1.752316..22.4.1 " /> <id nullFlavor="NA" /> <code codeSystem="local" code="iCHEM8" displayName="CHEM/HEM PROFILE-BEDSIDE" /> <statusCode code="completed" /> <component> <observation moodCode="EVN" classCode="OBS"> < templateId root="840.1.814978.03.15.22.4.2" /> <id nullFlavor="NA " /> <code codeSystem="local" code="K" displayName="POTASSIUM" /> <statusCode code="completed" /> <effectiveTime value="985107277618 " /> <value unit="mmol/L" xsi:type="PQ" value="3.5" /> < referenceRange> <observationRange> <text>3.5-5.3</text> </observationRange> </referenceRange> </observation > </component> <component> <observation moodCode="EVN" classCode="OBS"> <templateId root="840.1.233361.03.15.22.4.2" /> <id nullFlavor="NA" /> <code codeSystem="local" code="CMETHOD " displayName="METHOD" /> <statusCode code="completed" /> < effectiveTime value="880691214596" /> <value unit="" xsi:type="PQ" value="Bedside" /> <referenceRange> <observationRange> <text /> </observationRange> </referenceRange> </observation> </component> <component> <observation moodCode="EVN" classCode="OBS"> <templateId root= "840.1.968641.03.15.22.4.2" /> <id nullFlavor="NA" /> < code codeSystem="local" code="GAP" displayName="ANION GAP" /> < statusCode code="completed" /> <effectiveTime value="422894355943" /> <value unit="mmol/L" xsi:type="PQ" value="17" /> < referenceRange> <observationRange> <text>10-20</text> </observationRange> </referenceRange> </observation> </component> <component> <observation moodCode="EVN" classCode= "OBS"> <templateId root="216.840.1.975238.10..4.2" /> < id nullFlavor="NA" /> <code codeSystem="local" code="HMETHOD" displayName="METHOD" /> <statusCode code="completed" /> < effectiveTime value="260637632518" /> <value unit="" xsi:type="PQ" value="Bedside" /> <referenceRange> <observationRange> <text /> </observationRange> </referenceRange> </observation> </component> <component> <observation moodCode="EVN" classCode="OBS"> <templateId root= "07.12.840.1.822650.10...4.2" /> <id nullFlavor="NA" /> < code codeSystem="local" code="GLU" displayName="GLUCOSE" /> < statusCode code="completed" /> <effectiveTime value="" /> <value unit="mg/dL" xsi:type="PQ" value="114" /> < interpretationCode codeSystem="local" code="*" /> <referenceRange> <observationRange> <text>70-99</text> </ observationRange> </referenceRange> </observation> </ component> <component> <observation moodCode="EVN" classCode="OBS"> <templateId root="16.840.1.900499.10...4.2" /> <id nullFlavor="NA" /> <code codeSystem="local" code="BUN" displayName= "BLOOD UREA NITROGEN" /> <statusCode code="completed" /> < effectiveTime value="023656887929" /> <value unit="mg/dL" xsi:type="PQ " value="10" /> <referenceRange> <observationRange> <text>7-20</text> </observationRange> </referenceRange > </observation> </component> <component> <observation moodCode="EVN" classCode="OBS"> <templateId root= "2.16.840.1.730577.10..22.4.2" /> <id nullFlavor="NA" /> < code codeSystem="local" code="CREAT" displayName="CREATININE" /> < statusCode code="completed" /> <effectiveTime value="940299700414" /> <value unit="mg/dL" xsi:type="PQ" value="0.7" /> < referenceRange> <observationRange> <text>0.6-1.0</text> </observationRange> </referenceRange> </observation > </component> <component> <observation moodCode="EVN" classCode="OBS"> <templateId root="2.16.840.1.464018.10..22.4.2" /> <id nullFlavor="NA" /> <code codeSystem="local" code="HGBT" displayName="HEMOGLOBIN" /> <statusCode code="completed" /> < effectiveTime value="509264493825" /> <value unit="gm/dL" xsi:type="PQ " value="12.6" /> <referenceRange> <observationRange> <text>12.0-16.0</text> </observationRange> </ referenceRange> </observation> </component> <component> <observation moodCode="EVN" classCode="OBS"> <templateId root= "16.840.1.146969.10..22.4.2" /> <id nullFlavor="NA" /> < code codeSystem="local" code="HCTT" displayName="HEMATOCRIT" /> < statusCode code="completed" /> <effectiveTime value="014721130220" /> <value unit="%" xsi:type="PQ" value="37.0" /> < referenceRange> <observationRange> <text>37.0-47.0</text > </observationRange> </referenceRange> </observation > </component> <component> <observation moodCode="EVN" classCode="OBS"> <templateId root="16.840.1.575827.10...4.2" /> <id nullFlavor="NA" /> <code codeSystem="local" code="NA" displayName="SODIUM" /> <statusCode code="completed" /> < effectiveTime value="235433536527" /> <value unit="mmol/L" xsi:type="PQ " value="137" /> <referenceRange> <observationRange> <text>135-148</text> </observationRange> </ referenceRange> </observation> </component> <component> <observation moodCode="EVN" classCode="OBS"> <templateId root= "07.12.840.1.280735.10..22.4.2" /> <id nullFlavor="NA" /> < code codeSystem="local" code="CL" displayName="CHLORIDE" /> < statusCode code="completed" /> <effectiveTime value="461747629873" /> <value unit="mmol/L" xsi:type="PQ" value="99" /> < referenceRange> <observationRange> <text>98-110</text> </observationRange> </referenceRange> </observation> </component> <component> <observation moodCode="EVN" classCode ="OBS"> <templateId root="16.840.1.158991.10..4.2" /> < id nullFlavor="NA" /> <code codeSystem="local" code="CO2" displayName= "CARBON DIOXIDE" /> <statusCode code="completed" /> < effectiveTime value="523689831209" /> <value unit="mmol/L" xsi:type="PQ " value="24" /> <referenceRange> <observationRange> <text>21-32</text> </observationRange> </ referenceRange> </observation> </component> <component> <observation moodCode="EVN" classCode="OBS"> <templateId root= "07.12.840.1.515041.03.15.22.4.2" /> <id nullFlavor="NA" /> < code codeSystem="local" code="CAION" displayName="CALCIUM IONIZED" /> < statusCode code="completed" /> <effectiveTime value="978024233179" /> <value unit="mg/dL" xsi:type="PQ" value="4.3" /> < interpretationCode codeSystem="local" code="*" /> <referenceRange> <observationRange> <text>4.5-5.3</text> </ observationRange> </referenceRange> </observation> </ component> </organizer> </entry> <entry> <organizer moodCode="EVN" classCode="BATTERY"> <templateId root="16.840.1.768526.10...4.1" /> <id nullFlavor="NA" /> <code codeSystem="local" code="UA" displayName= "URINALYSIS, ROUTINE" /> <statusCode code="completed" /> <component> <observation moodCode="EVN" classCode="OBS"> <templateId root= "16.840.1.469466.10..4.2" /> <id nullFlavor="NA" /> < code codeSystem="local" code="LEUESU" displayName="UA LEUKOCYTE ESTERASE DIPSTICK" /> <statusCode code="completed" /> <effectiveTime value="" /> <value unit="" xsi:type="PQ" value="1+" /> <interpretationCode codeSystem="local" code="*" /> < referenceRange> <observationRange> <text>NEGATIVE</text > </observationRange> </referenceRange> </observation > </component> <component> <observation moodCode="EVN" classCode="OBS"> <templateId root="07.12.840.1.695448.03.15.22.4.2" /> <id nullFlavor="NA" /> <code codeSystem="local" code="NITRIU" displayName="UA NITRITE DIPSTICK" /> <statusCode code="completed" /> <effectiveTime value="" /> <value unit="" xsi:type= "PQ" value="POSITIVE" /> <interpretationCode codeSystem="local" code="* " /> <referenceRange> <observationRange> <text> NEGATIVE</text> </observationRange> </referenceRange> </observation> </component> <component> <observation moodCode ="EVN" classCode="OBS"> <templateId root= "07.12.840.1.295400...4.2" /> <id nullFlavor="NA" /> < code codeSystem="local" code="PROTEIU" displayName="UA PROTEIN DIPSTICK" /> <statusCode code="completed" /> <effectiveTime value= "" /> <value unit="" xsi:type="PQ" value="3+" /> < interpretationCode codeSystem="local" code="*" /> <referenceRange> <observationRange> <text>NEGATIVE</text> </ observationRange> </referenceRange> </observation> </ component> <component> <observation moodCode="EVN" classCode="OBS"> <templateId root="07.12.840.1.015028.10..4.2" /> <id nullFlavor="NA" /> <code codeSystem="local" code="DGLUU" displayName= "UA GLUCOSE DIPSTICK" /> <statusCode code="completed" /> < effectiveTime value="" /> <value unit="" xsi:type="PQ" value="NEGATIVE" /> <referenceRange> <observationRange> <text>NEGATIVE</text> </observationRange> </ referenceRange> </observation> </component> <component> <observation moodCode="EVN" classCode="OBS"> <templateId root= "07.12.840.1.349484.03.15.22.4.2" /> <id nullFlavor="NA" /> < code codeSystem="local" code="KETONU" displayName="UA KETONE DIPSTICK" /> <statusCode code="completed" /> <effectiveTime value=" " /> <value unit="" xsi:type="PQ" value="TRACE" /> < interpretationCode codeSystem="local" code="*" /> <referenceRange> <observationRange> <text>NEGATIVE</text> </ observationRange> </referenceRange> </observation> </ component> <component> <observation moodCode="EVN" classCode="OBS"> <templateId root="16.840.1.902523..22.4.2" /> <id nullFlavor="NA" /> <code codeSystem="local" code="UROBILU" displayName= "UA UROBILINOGEN DIPSTICK" /> <statusCode code="completed" /> <effectiveTime value="" /> <value unit="" xsi:type="PQ" value="2+" /> <interpretationCode codeSystem="local" code="*" /> <referenceRange> <observationRange> <text>NORMAL</ text> </observationRange> </referenceRange> </ observation> </component> <component> <observation moodCode= "EVN" classCode="OBS"> <templateId root="2.16.840.1.058453...4.2 " /> <id nullFlavor="NA" /> <code codeSystem="local" code= "BILU" displayName="UA BILIRUBIN DIPSTICK" /> <statusCode code= "completed" /> <effectiveTime value="" /> <value unit="" xsi:type="PQ" value="1+" /> <interpretationCode codeSystem= "local" code="*" /> <referenceRange> <observationRange> <text>NEGATIVE</text> </observationRange> </ referenceRange> </observation> </component> <component> <observation moodCode="EVN" classCode="OBS"> <templateId root= "2.16.840.1.279731.10.4.2" /> <id nullFlavor="NA" /> < code codeSystem="local" code="LON" displayName="UA BLOOD DIPSTICK" /> < statusCode code="completed" /> <effectiveTime value="" /> <value unit="" xsi:type="PQ" value="3+" /> < interpretationCode codeSystem="local" code="*" /> <referenceRange> <observationRange> <text>NEGATIVE</text> </ observationRange> </referenceRange> </observation> </ component> <component> <observation moodCode="EVN" classCode="OBS"> <templateId root="2.16.840.1.839248.10.4.2" /> <id nullFlavor="NA" /> <code codeSystem="local" code="SPGRU" displayName= "UA SPECIFIC GRAVITY" /> <statusCode code="completed" /> < effectiveTime value="" /> <value unit="" xsi:type="PQ" value="1.025" /> <referenceRange> <observationRange> <text>1.015-1.025</text> </observationRange> </ referenceRange> </observation> </component> <component> <observation moodCode="EVN" classCode="OBS"> <templateId root= "2.16.840.1.077087.03.15.22.4.2" /> <id nullFlavor="NA" /> < code codeSystem="local" code="WILLOW" displayName="UR PH" /> <statusCode code="completed" /> <effectiveTime value="" /> < value unit="" xsi:type="PQ" value="6.0" /> <referenceRange> <observationRange> <text>5.0-7.0</text> </ observationRange> </referenceRange> </observation> </ component> </organizer> </entry> <entry> <organizer moodCode="EVN" classCode="BATTERY"> <templateId root="2.16.840.1.121784.10..4.1" /> <id nullFlavor="NA" /> <code codeSystem="local" code="UAMICRO" displayName="UA MICROSCOPIC" /> <statusCode code="completed" /> < component> <observation moodCode="EVN" classCode="OBS"> < templateId root="07.12.840.1.545944.10..22.4.2" /> <id nullFlavor="NA " /> <code codeSystem="local" code="BACU" displayName="UA BACTERIA" /> <statusCode code="completed" /> <effectiveTime value= "" /> <value unit="" xsi:type="PQ" value="4+" /> < interpretationCode codeSystem="local" code="*" /> <referenceRange> <observationRange> <text>NEGATIVE</text> </ observationRange> </referenceRange> </observation> </ component> <component> <observation moodCode="EVN" classCode="OBS"> <templateId root="07.12.840.1.967970...4.2" /> <id nullFlavor="NA" /> <code codeSystem="local" code="EPIU" displayName=" UA EPITHELIAL CELLS" /> <statusCode code="completed" /> < effectiveTime value="" /> <value unit="epi/hpf" xsi:type= "PQ" value="4+" /> <interpretationCode codeSystem="local" code="*" /> <referenceRange> <observationRange> <text>0 - 1 +</text> </observationRange> </referenceRange> </ observation> </component> <component> <observation moodCode= "EVN" classCode="OBS"> <templateId root="07.12.840.1.270828.10.4.2 " /> <id nullFlavor="NA" /> <code codeSystem="local" code= "MUCUSU" displayName="UA MUCUS" /> <statusCode code="completed" /> <effectiveTime value="" /> <value unit="" xsi:type= "PQ" value="3+" /> <interpretationCode codeSystem="local" code="*" /> <referenceRange> <observationRange> <text>NEG TO 1+</text> </observationRange> </referenceRange> </ observation> </component> <component> <observation moodCode= "EVN" classCode="OBS"> <templateId root="16.840.1.522134.10..4.2 " /> <id nullFlavor="NA" /> <code codeSystem="local" code= "RBCU" displayName="UA RBC" /> <statusCode code="completed" /> <effectiveTime value="" /> <value unit="rbc/hpf" xsi:type ="PQ" value="0-3" /> <referenceRange> <observationRange> <text>0 - 3</text> </observationRange> </ referenceRange> </observation> </component> <component> <observation moodCode="EVN" classCode="OBS"> <templateId root= "840.1.751928.03.15.22.4.2" /> <id nullFlavor="NA" /> < code codeSystem="local" code="UAVOL" displayName="UA VOLUME FOR EXAM" /> <statusCode code="completed" /> <effectiveTime value="" /> <value unit="mL" xsi:type="PQ" value="12.0" /> < referenceRange> <observationRange> <text>(12mL STD)</ text> </observationRange> </referenceRange> </ observation> </component> <component> <observation moodCode= "EVN" classCode="OBS"> <templateId root="07.12.840.1.287451.10.22.4.2 " /> <id nullFlavor="NA" /> <code codeSystem="local" code= "WBCU" displayName="UA WBC" /> <statusCode code="completed" /> <effectiveTime value="841034035979" /> <value unit="wbc/hpf" xsi:type ="PQ" value="PACKED FIELD" /> <interpretationCode codeSystem="local" code="*" /> <referenceRange> <observationRange> <text>0 - 5</text> </observationRange> </referenceRange> </observation> </component> </organizer> </entry> <entry> < organizer moodCode="EVN" classCode="BATTERY"> <templateId root= "216.840.1.813956.10..22.4.1" /> <id nullFlavor="NA" /> <code codeSystem="local" code="PREGU" displayName="UR TEST" /> < statusCode code="completed" /> <component> <observation moodCode= "EVN" classCode="OBS"> <templateId root="16.840.1.709660.10..22.4.2 " /> <id nullFlavor="NA" /> <code codeSystem="local" code= "PREGU" displayName="UR TEST" /> <statusCode code="completed " /> <effectiveTime value="430912620400" /> <value unit="" xsi :type="PQ" value="NEGATIVE" /> <referenceRange> < observationRange> <text>NEGATIVE</text> </ observationRange> </referenceRange> </observation> </ component> </organizer> </entry> <entry> <organizer moodCode="EVN" classCode="BATTERY"> <templateId root="16.840.1.424296.10..22.4.1" /> <id nullFlavor="NA" /> <code codeSystem="local" code="UC" displayName= "URINE CULTURE" /> <statusCode code="completed" /> <component> <observation moodCode="EVN" classCode="OBS"> <templateId root= "2.16.840.1.867745.10..22.4.2" /> <id nullFlavor="NA" /> < code codeSystem="local" code="MB" displayName="Microbiology" /> < statusCode code="completed" /> <effectiveTime value="586002114240" /> <value xsi:type="ST" value="<pre><b>URINE CULTURE</b&gt ; See BelowURINE CULTURE(F) Red Date/Time: 06/30/2017 23:47 Matty Date/Time: 07/03/2017 11:03SOURCE: URINESPEC DESC: CLEAN CATCHTREATMENT OF ASYMPTOMATIC BACTERIURIA IS NOT USUALLYCLINICALLY INDICATED.Organism #1 ESCHERICHIA COLICOLONY COUNT >100,000 CFU/ML InterpAMPICILLIN VITEK >=32 RAMPICILLIN/SULBACTAM VITEK 16 ICEFAZOLIN VITEK & lt;=4 SCEFEPIME VITEK <=1 SCEFTRIAXONE VITEK <=1 SGENTAMICIN VITEK <=1 SNITROFURANTOIN VITEK <=16 SPIPERACILLIN/TAZOBZCTAM VITEK 8 STRIMETH/SULFA VITEK <=20 [facility] [place] [address]</pre>" /> <referenceRange> <observationRange> <text /> </ observationRange> </referenceRange> </observation> </ component> </organizer> </entry> <entry> <organizer moodCode="EVN" classCode="BATTERY"> <templateId root="2.16.840.1.408933.10.20.22.4.1" /> <id nullFlavor="NA" /> <code codeSystem="local" code="CBCD" displayName="CBC W/DIFF" /> <statusCode code="completed" /> <component > <observation moodCode="EVN" classCode="OBS"> <templateId root= "216.840.1.974248.10.22.4.2" /> <id nullFlavor="NA" /> < code codeSystem="local" code="GR#" displayName="GRANULOCYTE #" /> < statusCode code="completed" /> <effectiveTime value="" /> <value unit="k/cumm" xsi:type="PQ" value="9.8" /> < interpretationCode codeSystem="local" code="*" /> <referenceRange> <observationRange> <text>2.0-9.0</text> </ observationRange> </referenceRange> </observation> </ component> <component> <observation moodCode="EVN" classCode="OBS"> <templateId root="07.12.840.1.538592.03.15.224.2" /> <id nullFlavor="NA" /> <code codeSystem="local" code="LY#" displayName= "LYMPHOCYTE #" /> <statusCode code="completed" /> < effectiveTime value="" /> <value unit="k/cumm" xsi:type="PQ " value="1.3" /> <referenceRange> <observationRange> <text>1.0-4.0</text> </observationRange> </ referenceRange> </observation> </component> <component> <observation moodCode="EVN" classCode="OBS"> <templateId root= "16.840.1.921747.22.4.2" /> <id nullFlavor="NA" /> < code codeSystem="local" code="LY%" displayName="LYMPHOCYTE %" /> <statusCode code="completed" /> <effectiveTime value="" /> <value unit="%" xsi:type="PQ" value="10.0" /> < interpretationCode codeSystem="local" code="*" /> <referenceRange> <observationRange> <text>20-30</text> </ observationRange> </referenceRange> </observation> </ component> <component> <observation moodCode="EVN" classCode="OBS"> <templateId root="216.840.1.436493.10..4.2" /> <id nullFlavor="NA" /> <code codeSystem="local" code="MCH" displayName= "MEAN CELL HGB" /> <statusCode code="completed" /> < effectiveTime value="" /> <value unit="pg" xsi:type="PQ" value="23.4" /> <interpretationCode codeSystem="local" code="*" /> <referenceRange> <observationRange> <text>27.0- 33.0</text> </observationRange> </referenceRange> </ observation> </component> <component> <observation moodCode= "EVN" classCode="OBS"> <templateId root="216.840.1.955072.10..22.4.2 " /> <id nullFlavor="NA" /> <code codeSystem="local" code= "MCHC" displayName="MEAN CELL HGB CONCENTRATION" /> <statusCode code= "completed" /> <effectiveTime value="" /> <value unit="g/dL" xsi:type="PQ" value="30.2" /> <interpretationCode codeSystem="local" code="*" /> <referenceRange> < observationRange> <text>32.0-37.0</text> </ observationRange> </referenceRange> </observation> </ component> <component> <observation moodCode="EVN" classCode="OBS"> <templateId root="07.12.840.1.027605.10.22.4.2" /> <id nullFlavor="NA" /> <code codeSystem="local" code="MCV" displayName= "MEAN CELL VOLUME" /> <statusCode code="completed" /> < effectiveTime value="" /> <value unit="fl" xsi:type="PQ" value="77.3" /> <interpretationCode codeSystem="local" code="*" /> <referenceRange> <observationRange> <text>80.0- 100.0</text> </observationRange> </referenceRange> </ observation> </component> <component> <observation moodCode= "EVN" classCode="OBS"> <templateId root="840.1.995176.03.15.224.2 " /> <id nullFlavor="NA" /> <code codeSystem="local" code="MO# " displayName="MONOCYTE #" /> <statusCode code="completed" /> <effectiveTime value="" /> <value unit="k/cumm" xsi:type= "PQ" value="1.5" /> <interpretationCode codeSystem="local" code="*" /> <referenceRange> <observationRange> <text>0.1- 1.0</text> </observationRange> </referenceRange> </ observation> </component> <component> <observation moodCode= "EVN" classCode="OBS"> <templateId root="07.12.840.1.114611.22.4.2 " /> <id nullFlavor="NA" /> <code codeSystem="local" code="MO& #37;" displayName="MONOCYTE %" /> <statusCode code="completed" /> <effectiveTime value="" /> <value unit="%" xsi :type="PQ" value="12.0" /> <interpretationCode codeSystem="local" code= "*" /> <referenceRange> <observationRange> < text>4-6</text> </observationRange> </referenceRange> </observation> </component> <component> <observation moodCode ="EVN" classCode="OBS"> <templateId root= "840.1.247577.10.4.2" /> <id nullFlavor="NA" /> < code codeSystem="local" code="MPVT" displayName="MEAN PLATELET VOLUME" /> <statusCode code="completed" /> <effectiveTime value=" " /> <value unit="fl" xsi:type="PQ" value="9.6" /> < referenceRange> <observationRange> <text>8.5-10.9</text > </observationRange> </referenceRange> </observation > </component> <component> <observation moodCode="EVN" classCode="OBS"> <templateId root="840.1.010821.10.4.2" /> <id nullFlavor="NA" /> <code codeSystem="local" code="OVAL" displayName="OVALOCYTES" /> <statusCode code="completed" /> < effectiveTime value="" /> <value unit="" xsi:type="PQ" value="NOTED" /> <referenceRange> <observationRange> <text /> </observationRange> </referenceRange> </observation> </component> <component> <observation moodCode ="EVN" classCode="OBS"> <templateId root= "840.1.278942.1022.4.2" /> <id nullFlavor="NA" /> < code codeSystem="local" code="RBC" displayName="RED BLOOD CELL" /> < statusCode code="completed" /> <effectiveTime value="" /> <value unit="m/cumm" xsi:type="PQ" value="4.19" /> < referenceRange> <observationRange> <text>4.00-6.00</text > </observationRange> </referenceRange> </observation > </component> <component> <observation moodCode="EVN" classCode="OBS"> <templateId root="2.16.840.1.096293.10..22.4.2" /> <id nullFlavor="NA" /> <code codeSystem="local" code="RDW" displayName="RED CELL DISTRIBUTION WIDTH" /> <statusCode code= "completed" /> <effectiveTime value="" /> <value unit="%" xsi:type="PQ" value="16.6" /> <interpretationCode codeSystem="local" code="*" /> <referenceRange> < observationRange> <text>11.0-15.6</text> </ observationRange> </referenceRange> </observation> </ component> <component> <observation moodCode="EVN" classCode="OBS"> <templateId root="216.840.1.718176.10..22.4.2" /> <id nullFlavor="NA" /> <code codeSystem="local" code="WBC" displayName= "WHITE BLOOD CELL" /> <statusCode code="completed" /> < effectiveTime value="" /> <value unit="k/cumm" xsi:type="PQ " value="12.5" /> <interpretationCode codeSystem="local" code="*" /> <referenceRange> <observationRange> <text>5.0- 10.0</text> </observationRange> </referenceRange> </ observation> </component> <component> <observation moodCode= "EVN" classCode="OBS"> <templateId root="16.840.1.173076.10.2022.4.2 " /> <id nullFlavor="NA" /> <code codeSystem="local" code= "HGBT" displayName="HEMOGLOBIN" /> <statusCode code="completed" /> <effectiveTime value="" /> <value unit="gm/dL" xsi: type="PQ" value="9.8" /> <interpretationCode codeSystem="local" code="* " /> <referenceRange> <observationRange> <text> 12.0-16.0</text> </observationRange> </referenceRange> </observation> </component> <component> <observation moodCode="EVN" classCode="OBS"> <templateId root= "07.12.840.1.987378.1022.4.2" /> <id nullFlavor="NA" /> < code codeSystem="local" code="HCTT" displayName="HEMATOCRIT" /> < statusCode code="completed" /> <effectiveTime value="[id number]" /> <value unit="%" xsi:type="PQ" value="32.4" /> < interpretationCode codeSystem="local" code="*" /> <referenceRange> <observationRange> <text>37.0-47.0</text> </ observationRange> </referenceRange> </observation> </ component> <component> <observation moodCode="EVN" classCode="OBS"> <templateId root="07.12.840.1.756609.10.2022.4.2" /> <id nullFlavor="NA" /> <code codeSystem="local" code="NRBC%" displayName="NRBC %" /> <statusCode code="completed" /> < effectiveTime value="861540042589" /> <value unit="/100WBC" xsi:type= "PQ" value="0.0" /> <referenceRange> <observationRange> <text>0.0-0.0</text> </observationRange> </ referenceRange> </observation> </component> <component> <observation moodCode="EVN" classCode="OBS"> <templateId root= "216.840.1.909617.10.20.22.4.2" /> <id nullFlavor="NA" /> < code codeSystem="local" code="PLTT" displayName="PLATELET COUNT" /> < statusCode code="completed" /> <effectiveTime value="" /> <value unit="k/cumm" xsi:type="PQ" value="190" /> < referenceRange> <observationRange> <text>150-400</text> </observationRange> </referenceRange> </observation > </component> <component> <observation moodCode="EVN" classCode="OBS"> <templateId root="2.16.840.1.837068.10.20.22.4.2" /> <id nullFlavor="NA" /> <code codeSystem="local" code="IG% " displayName="IMMATURE GRANULOCYTE %" /> <statusCode code= "completed" /> <effectiveTime value="962009770213" /> <value unit="%" xsi:type="PQ" value="0.5" /> <referenceRange> < observationRange> <text>0.0-0.6</text> </ observationRange> </referenceRange> </observation> </ component> <component> <observation moodCode="EVN" classCode="OBS"> <templateId root="2.16.840.1.219573.10..4.2" /> <id nullFlavor="NA" /> <code codeSystem="local" code="IG#" displayName= "IMMATURE GRANULOCYTE #" /> <statusCode code="completed" /> < effectiveTime value="" /> <value unit="k/cumm" xsi:type="PQ " value="0.06" /> <referenceRange> <observationRange> <text>0.00-0.09</text> </observationRange> </ referenceRange> </observation> </component> </organizer> </entry > <entry> <organizer moodCode="EVN" classCode="BATTERY"> <templateId root="840.1.091692.03.15.22.4.1" /> <id nullFlavor="NA" /> <code codeSystem="local" code="DIFFM" displayName="MANUAL DIFF(R)" /> < statusCode code="completed" /> <component> <observation moodCode= "EVN" classCode="OBS"> <templateId root="07.12.840.1.610011.10..4.2 " /> <id nullFlavor="NA" /> <code codeSystem="local" code= "BAND%" displayName="BAND %" /> <statusCode code="completed" / > <effectiveTime value="" /> <value unit="%" xsi:type="PQ" value="5" /> <referenceRange> < observationRange> <text>0-10</text> </observationRange> </referenceRange> </observation> </component> < component> <observation moodCode="EVN" classCode="OBS"> < templateId root="07.12.840.1.377497.03.15.22.4.2" /> <id nullFlavor="NA " /> <code codeSystem="local" code="MANDIFF" displayName="DIFFERENTIAL " /> <statusCode code="completed" /> <effectiveTime value= "531779413550" /> <value unit="" xsi:type="PQ" value="MANUAL" /> <referenceRange> <observationRange> <text /> </observationRange> </referenceRange> </observation> < /component> <component> <observation moodCode="EVN" classCode="OBS" > <templateId root="07.12.840.1.933348.03.15.224.2" /> <id nullFlavor="NA" /> <code codeSystem="local" code="SEG%" displayName ="SEGMENTED NEUTROPHIL %" /> <statusCode code="completed" /> <effectiveTime value="249790454127" /> <value unit="%" xsi:type ="PQ" value="73" /> <interpretationCode codeSystem="local" code="*" /> <referenceRange> <observationRange> <text>50- 70</text> </observationRange> </referenceRange> </ observation> </component> </organizer> </entry> <entry> <organizer moodCode="EVN" classCode="BATTERY"> <templateId root= "07.12.840.1.180542.03.15.22.4.1" /> <id nullFlavor="NA" /> <code codeSystem="local" code="iCHEM8" displayName="CHEM/HEM PROFILE-BEDSIDE" /> <statusCode code="completed" /> <component> <observation moodCode= "EVN" classCode="OBS"> <templateId root="07.12.840.1.017812.03.15.22.4.2 " /> <id nullFlavor="NA" /> <code codeSystem="local" code="K" displayName="POTASSIUM" /> <statusCode code="completed" /> < effectiveTime value="379830451935" /> <value unit="mmol/L" xsi:type="PQ " value="3.3" /> <interpretationCode codeSystem="local" code="*" /> <referenceRange> <observationRange> <text>3.5-5.3 </text> </observationRange> </referenceRange> </ observation> </component> <component> <observation moodCode= "EVN" classCode="OBS"> <templateId root="216.840.1.790201.10..22.4.2 " /> <id nullFlavor="NA" /> <code codeSystem="local" code= "CMETHOD" displayName="METHOD" /> <statusCode code="completed" /> <effectiveTime value="912902401213" /> <value unit="" xsi:type="PQ " value="Bedside" /> <referenceRange> <observationRange> <text /> </observationRange> </referenceRange> </observation> </component> <component> <observation moodCode="EVN" classCode="OBS"> <templateId root= "16.840.1.288104.10..22.4.2" /> <id nullFlavor="NA" /> < code codeSystem="local" code="GAP" displayName="ANION GAP" /> < statusCode code="completed" /> <effectiveTime value="732823750212" /> <value unit="mmol/L" xsi:type="PQ" value="15" /> < referenceRange> <observationRange> <text>10-20</text> </observationRange> </referenceRange> </observation> </component> <component> <observation moodCode="EVN" classCode= "OBS"> <templateId root="840.1.163165.10..22.4.2" /> < id nullFlavor="NA" /> <code codeSystem="local" code="HMETHOD" displayName="METHOD" /> <statusCode code="completed" /> < effectiveTime value="991029273001" /> <value unit="" xsi:type="PQ" value="Bedside" /> <referenceRange> <observationRange> <text /> </observationRange> </referenceRange> </observation> </component> <component> <observation moodCode="EVN" classCode="OBS"> <templateId root= "2.16.840.1.223904.10..4.2" /> <id nullFlavor="NA" /> < code codeSystem="local" code="GLU" displayName="GLUCOSE" /> < statusCode code="completed" /> <effectiveTime value="146493512645" /> <value unit="mg/dL" xsi:type="PQ" value="106" /> < interpretationCode codeSystem="local" code="*" /> <referenceRange> <observationRange> <text>70-99</text> </ observationRange> </referenceRange> </observation> </ component> <component> <observation moodCode="EVN" classCode="OBS"> <templateId root="2.16.840.1.098524...4.2" /> <id nullFlavor="NA" /> <code codeSystem="local" code="BUN" displayName= "BLOOD UREA NITROGEN" /> <statusCode code="completed" /> < effectiveTime value="829436727875" /> <value unit="mg/dL" xsi:type="PQ " value="10" /> <referenceRange> <observationRange> <text>7-20</text> </observationRange> </referenceRange > </observation> </component> <component> <observation moodCode="EVN" classCode="OBS"> <templateId root= "216.840.1.691334...4.2" /> <id nullFlavor="NA" /> < code codeSystem="local" code="CREAT" displayName="CREATININE" /> < statusCode code="completed" /> <effectiveTime value="" /> <value unit="mg/dL" xsi:type="PQ" value="0.8" /> < referenceRange> <observationRange> <text>0.6-1.0</text> </observationRange> </referenceRange> </observation > </component> <component> <observation moodCode="EVN" classCode="OBS"> <templateId root="16.840.1.693039.03.15.22.4.2" /> <id nullFlavor="NA" /> <code codeSystem="local" code="HGBT" displayName="HEMOGLOBIN" /> <statusCode code="completed" /> < effectiveTime value="" /> <value unit="gm/dL" xsi:type="PQ " value="11.9" /> <interpretationCode codeSystem="local" code="*" /> <referenceRange> <observationRange> <text>12.0- 16.0</text> </observationRange> </referenceRange> </ observation> </component> <component> <observation moodCode= "EVN" classCode="OBS"> <templateId root="07.12.840.1.685643.03.15.22.4.2 " /> <id nullFlavor="NA" /> <code codeSystem="local" code= "HCTT" displayName="HEMATOCRIT" /> <statusCode code="completed" /> <effectiveTime value="" /> <value unit="%" xsi: type="PQ" value="35.0" /> <interpretationCode codeSystem="local" code= "*" /> <referenceRange> <observationRange> < text>37.0-47.0</text> </observationRange> </referenceRange> </observation> </component> <component> <observation moodCode="EVN" classCode="OBS"> <templateId root= "16.840.1.227133.10..4.2" /> <id nullFlavor="NA" /> < code codeSystem="local" code="NA" displayName="SODIUM" /> <statusCode code="completed" /> <effectiveTime value="380318041554" /> < value unit="mmol/L" xsi:type="PQ" value="134" /> <interpretationCode codeSystem="local" code="*" /> <referenceRange> < observationRange> <text>135-148</text> </ observationRange> </referenceRange> </observation> </ component> <component> <observation moodCode="EVN" classCode="OBS"> <templateId root="07.12.840.1.961247.03.15.22.4.2" /> <id nullFlavor="NA" /> <code codeSystem="local" code="CL" displayName= "CHLORIDE" /> <statusCode code="completed" /> <effectiveTime value="566876340609" /> <value unit="mmol/L" xsi:type="PQ" value="99" / > <referenceRange> <observationRange> <text>98- 110</text> </observationRange> </referenceRange> </ observation> </component> <component> <observation moodCode= "EVN" classCode="OBS"> <templateId root="07.12.840.1.695221.03.15.22.4.2 " /> <id nullFlavor="NA" /> <code codeSystem="local" code="CO2 " displayName="CARBON DIOXIDE" /> <statusCode code="completed" /> <effectiveTime value="665107390147" /> <value unit="mmol/L" xsi: type="PQ" value="24" /> <referenceRange> <observationRange> <text>21-32</text> </observationRange> </ referenceRange> </observation> </component> <component> <observation moodCode="EVN" classCode="OBS"> <templateId root= "840.1.062819.03.15.22.4.2" /> <id nullFlavor="NA" /> < code codeSystem="local" code="CAION" displayName="CALCIUM IONIZED" /> < statusCode code="completed" /> <effectiveTime value="552857692909" /> <value unit="mg/dL" xsi:type="PQ" value="4.3" /> < interpretationCode codeSystem="local" code="*" /> <referenceRange> <observationRange> <text>4.5-5.3</text> </ observationRange> </referenceRange> </observation> </ component> </organizer> </entry> <entry> <organizer moodCode="EVN" classCode="BATTERY"> <templateId root="840.1.335525.03.15.22.4.1" /> <id nullFlavor="NA" /> <code codeSystem="local" code="UA" displayName= "URINALYSIS, ROUTINE" /> <statusCode code="completed" /> <component> <observation moodCode="EVN" classCode="OBS"> <templateId root= "840.1.005311.22.4.2" /> <id nullFlavor="NA" /> < code codeSystem="local" code="LEUESU" displayName="UA LEUKOCYTE ESTERASE DIPSTICK" /> <statusCode code="completed" /> <effectiveTime value="" /> <value unit="" xsi:type="PQ" value="1+" /> <interpretationCode codeSystem="local" code="*" /> < referenceRange> <observationRange> <text>NEGATIVE</text > </observationRange> </referenceRange> </observation > </component> <component> <observation moodCode="EVN" classCode="OBS"> <templateId root="216.840.1.686882.10..22.4.2" /> <id nullFlavor="NA" /> <code codeSystem="local" code="NITRIU" displayName="UA NITRITE DIPSTICK" /> <statusCode code="completed" /> <effectiveTime value="" /> <value unit="" xsi:type= "PQ" value="NEGATIVE" /> <referenceRange> <observationRange > <text>NEGATIVE</text> </observationRange> </ referenceRange> </observation> </component> <component> <observation moodCode="EVN" classCode="OBS"> <templateId root= "216.840.1.371243.10..22.4.2" /> <id nullFlavor="NA" /> < code codeSystem="local" code="PROTEIU" displayName="UA PROTEIN DIPSTICK" /> <statusCode code="completed" /> <effectiveTime value= "" /> <value unit="" xsi:type="PQ" value="2+" /> < interpretationCode codeSystem="local" code="*" /> <referenceRange> <observationRange> <text>NEGATIVE</text> </ observationRange> </referenceRange> </observation> </ component> <component> <observation moodCode="EVN" classCode="OBS"> <templateId root="16.840.1.270549.10...4.2" /> <id nullFlavor="NA" /> <code codeSystem="local" code="DGLUU" displayName= "UA GLUCOSE DIPSTICK" /> <statusCode code="completed" /> < effectiveTime value="" /> <value unit="" xsi:type="PQ" value="NEGATIVE" /> <referenceRange> <observationRange> <text>NEGATIVE</text> </observationRange> </ referenceRange> </observation> </component> <component> <observation moodCode="EVN" classCode="OBS"> <templateId root= "16.840.1.360579.10...4.2" /> <id nullFlavor="NA" /> < code codeSystem="local" code="KETONU" displayName="UA KETONE DIPSTICK" /> <statusCode code="completed" /> <effectiveTime value=" " /> <value unit="" xsi:type="PQ" value="2+" /> < interpretationCode codeSystem="local" code="*" /> <referenceRange> <observationRange> <text>NEGATIVE</text> </ observationRange> </referenceRange> </observation> </ component> <component> <observation moodCode="EVN" classCode="OBS"> <templateId root="16.840.1.593085.10...4.2" /> <id nullFlavor="NA" /> <code codeSystem="local" code="UROBILU" displayName= "UA UROBILINOGEN DIPSTICK" /> <statusCode code="completed" /> <effectiveTime value="" /> <value unit="" xsi:type="PQ" value="3+" /> <interpretationCode codeSystem="local" code="*" /> <referenceRange> <observationRange> <text>NORMAL</ text> </observationRange> </referenceRange> </ observation> </component> <component> <observation moodCode= "EVN" classCode="OBS"> <templateId root="16.840.1.087592.10..22.4.2 " /> <id nullFlavor="NA" /> <code codeSystem="local" code= "BILU" displayName="UA BILIRUBIN DIPSTICK" /> <statusCode code= "completed" /> <effectiveTime value="" /> <value unit="" xsi:type="PQ" value="1+" /> <interpretationCode codeSystem= "local" code="*" /> <referenceRange> <observationRange> <text>NEGATIVE</text> </observationRange> </ referenceRange> </observation> </component> <component> <observation moodCode="EVN" classCode="OBS"> <templateId root= "07.12.840.1.034193.03.15.22.4.2" /> <id nullFlavor="NA" /> < code codeSystem="local" code="LON" displayName="UA BLOOD DIPSTICK" /> < statusCode code="completed" /> <effectiveTime value="" /> <value unit="" xsi:type="PQ" value="2+" /> < interpretationCode codeSystem="local" code="*" /> <referenceRange> <observationRange> <text>NEGATIVE</text> </ observationRange> </referenceRange> </observation> </ component> <component> <observation moodCode="EVN" classCode="OBS"> <templateId root="16.840.1.015106..22.4.2" /> <id nullFlavor="NA" /> <code codeSystem="local" code="SPGRU" displayName= "UA SPECIFIC GRAVITY" /> <statusCode code="completed" /> < effectiveTime value="" /> <value unit="" xsi:type="PQ" value="1.015" /> <referenceRange> <observationRange> <text>1.015-1.025</text> </observationRange> </ referenceRange> </observation> </component> <component> <observation moodCode="EVN" classCode="OBS"> <templateId root= "07.12.840.1.269342.03.15.22.4.2" /> <id nullFlavor="NA" /> < code codeSystem="local" code="WILLOW" displayName="UR PH" /> <statusCode code="completed" /> <effectiveTime value="" /> < value unit="" xsi:type="PQ" value="6.5" /> <referenceRange> <observationRange> <text>5.0-7.0</text> </ observationRange> </referenceRange> </observation> </ component> </organizer> </entry> <entry> <organizer moodCode="EVN" classCode="BATTERY"> <templateId root="07.12.840.1.440114.03.15.22.4.1" /> <id nullFlavor="NA" /> <code codeSystem="local" code="UAMICRO" displayName="UA MICROSCOPIC" /> <statusCode code="completed" /> < component> <observation moodCode="EVN" classCode="OBS"> < templateId root="07.12.840.1.592416.03.15..4.2" /> <id nullFlavor="NA " /> <code codeSystem="local" code="BACU" displayName="UA BACTERIA" /> <statusCode code="completed" /> <effectiveTime value= "" /> <value unit="" xsi:type="PQ" value="1+" /> < interpretationCode codeSystem="local" code="*" /> <referenceRange> <observationRange> <text>NEGATIVE</text> </ observationRange> </referenceRange> </observation> </ component> <component> <observation moodCode="EVN" classCode="OBS"> <templateId root="07.12.840.1.555387.10..22.4.2" /> <id nullFlavor="NA" /> <code codeSystem="local" code="EPIU" displayName=" UA EPITHELIAL CELLS" /> <statusCode code="completed" /> < effectiveTime value="" /> <value unit="epi/hpf" xsi:type= "PQ" value="2+" /> <interpretationCode codeSystem="local" code="*" /> <referenceRange> <observationRange> <text>0 - 1 +</text> </observationRange> </referenceRange> </ observation> </component> <component> <observation moodCode= "EVN" classCode="OBS"> <templateId root="07.12.840.1.010751.10..22.4.2 " /> <id nullFlavor="NA" /> <code codeSystem="local" code= "MUCUSU" displayName="UA MUCUS" /> <statusCode code="completed" /> <effectiveTime value="" /> <value unit="" xsi:type= "PQ" value="1+" /> <referenceRange> <observationRange> <text>NEG TO 1+</text> </observationRange> </ referenceRange> </observation> </component> <component> <observation moodCode="EVN" classCode="OBS"> <templateId root= "840.1.286175.10..22.4.2" /> <id nullFlavor="NA" /> < code codeSystem="local" code="RBCU" displayName="UA RBC" /> < statusCode code="completed" /> <effectiveTime value="" /> <value unit="rbc/hpf" xsi:type="PQ" value="3-5" /> < interpretationCode codeSystem="local" code="*" /> <referenceRange> <observationRange> <text>0 - 3</text> </ observationRange> </referenceRange> </observation> </ component> <component> <observation moodCode="EVN" classCode="OBS"> <templateId root="16.840.1.827327.10...4.2" /> <id nullFlavor="NA" /> <code codeSystem="local" code="UAVOL" displayName= "UA VOLUME FOR EXAM" /> <statusCode code="completed" /> < effectiveTime value="" /> <value unit="mL" xsi:type="PQ" value="12.0" /> <referenceRange> <observationRange> <text>(12mL STD)</text> </observationRange> </ referenceRange> </observation> </component> <component> <observation moodCode="EVN" classCode="OBS"> <templateId root= "07.12.840.1.279086.10..22.4.2" /> <id nullFlavor="NA" /> < code codeSystem="local" code="WBCU" displayName="UA WBC" /> < statusCode code="completed" /> <effectiveTime value="" /> <value unit="wbc/hpf" xsi:type="PQ" value="50-100" /> < interpretationCode codeSystem="local" code="*" /> <referenceRange> <observationRange> <text>0 - 5</text> </ observationRange> </referenceRange> </observation> </ component> </organizer> </entry> <entry> <organizer moodCode="EVN" classCode="BATTERY"> <templateId root="07.12.840.1.708059.10..22.4.1" /> <id nullFlavor="NA" /> <code codeSystem="local" code="LACTG" displayName="LACTIC ACID" /> <statusCode code="completed" /> < component> <observation moodCode="EVN" classCode="OBS"> < templateId root="07.12.840.1.770076...4.2" /> <id nullFlavor="NA " /> <code codeSystem="local" code="LACT" displayName="LACTIC ACID" /> <statusCode code="completed" /> <effectiveTime value= "194613826097" /> <value unit="mmol/L" xsi:type="PQ" value="1.0" /> <referenceRange> <observationRange> <text>0.5-2.0 </text> </observationRange> </referenceRange> </ observation> </component> </organizer> </entry> <entry> <organizer moodCode="EVN" classCode="BATTERY"> <templateId root= "07.12.840.1.425594.10..4.1" /> <id nullFlavor="NA" /> <code codeSystem="local" code="BC" displayName="BLOOD CULTURE" /> <statusCode code="completed" /> <component> <observation moodCode="EVN" classCode="OBS"> <templateId root="07.12.840.1.467256.10..22.4.2" /> <id nullFlavor="NA" /> <code codeSystem="local" code="MB" displayName="Microbiology" /> <statusCode code="completed" /> <effectiveTime value="" /> <value xsi:type="ST" value="<pre ><b>BLOOD CULTURE</b> See BelowIs this a Possible Sepsis/Sepsis patient? YesBLOOD CULTURE(F) Red Date/Time: 07/01/2017 14:50 Matty Date/Time: 07/07/2017 01:09SOURCE: BLOODSPEC DESC: [id number] [facility] [place] [address]</pre>" /> <referenceRange> <observationRange> <text /> </observationRange> </referenceRange> </observation> </component> </organizer> </entry> <entry> < organizer moodCode="EVN" classCode="BATTERY"> <templateId root= "2.16.840.1.203988.10.20.22.4.1" /> <id nullFlavor="NA" /> <code codeSystem="local" code="BC" displayName="BLOOD CULTURE" /> <statusCode code="completed" /> <component> <observation moodCode="EVN" classCode="OBS"> <templateId root="2.16.840.1.873769.10.20.22.4.2" /> <id nullFlavor="NA" /> <code codeSystem="local" code="MB" displayName="Microbiology" /> <statusCode code="completed" /> <effectiveTime value="[id number]" /> <value xsi:type="ST" value="<pre ><b>BLOOD CULTURE</b> See BelowIs this a Possible Sepsis/Sepsis patient? YesBLOOD CULTURE(F) Red Date/Time: 07/01/2017 14:58 Matty Date/Time: 07/07/2017 01:10SOURCE: BLOODSPEC DESC: [id number] [facility] [place] [address]</pre>" /> <referenceRange> <observationRange> <text /> </observationRange> </referenceRange> </observation> </component> </organizer> </entry> <entry> < organizer moodCode="EVN" classCode="BATTERY"> <templateId root= "216.840.1.447059.10..22.4.1" /> <id nullFlavor="NA" /> <code codeSystem="local" code="DRUGAB" displayName="UR DRUGS OF ABUSE SCREEN" /> <statusCode code="completed" /> <component> <observation moodCode= "EVN" classCode="OBS"> <templateId root="216.840.1.883207.10..22.4.2 " /> <id nullFlavor="NA" /> <code codeSystem="local" code= "AMPHU" displayName="UR AMPHETAMINES SCREEN" /> <statusCode code= "completed" /> <effectiveTime value="" /> <value unit="" xsi:type="PQ" value="POS (>1000 ng/mL)" /> < interpretationCode codeSystem="local" code="*" /> <referenceRange> <observationRange> <text>NEGATIVE</text> </ observationRange> </referenceRange> </observation> </ component> <component> <observation moodCode="EVN" classCode="OBS"> <templateId root="216.840.1.357401.10..22.4.2" /> <id nullFlavor="NA" /> <code codeSystem="local" code="BARBU" displayName= "UR BARBITURATE SCREEN" /> <statusCode code="completed" /> < effectiveTime value="321993751258" /> <value unit="" xsi:type="PQ" value="NEG (< 200 ng/mL)" /> <referenceRange> < observationRange> <text>NEGATIVE</text> </ observationRange> </referenceRange> </observation> </ component> <component> <observation moodCode="EVN" classCode="OBS"> <templateId root="216.840.1.279323.10..22.4.2" /> <id nullFlavor="NA" /> <code codeSystem="local" code="DAUCOMMENT" displayName="DRUGS OF ABUSE SCREEN COMMENT" /> <statusCode code= "completed" /> <effectiveTime value="" /> <value unit="" xsi:type="PQ" value="" /> <referenceRange> < observationRange> <text /> </observationRange> </referenceRange> </observation> </component> <component> <observation moodCode="EVN" classCode="OBS"> <templateId root= "216.840.1.026893.10..4.2" /> <id nullFlavor="NA" /> < code codeSystem="local" code="OPIU" displayName="UR OPIATES SCREEN" /> <statusCode code="completed" /> <effectiveTime value="" /> <value unit="" xsi:type="PQ" value="POS (> 300 ng/mL)" /> <interpretationCode codeSystem="local" code="*" /> <referenceRange> <observationRange> <text>NEGATIVE</text> </ observationRange> </referenceRange> </observation> </ component> <component> <observation moodCode="EVN" classCode="OBS"> <templateId root="216.840.1.858582.10...4.2" /> <id nullFlavor="NA" /> <code codeSystem="local" code="PCPU" displayName=" UR PHENCYCLIDINE (PCP) SCREEN" /> <statusCode code="completed" /> <effectiveTime value="" /> <value unit="" xsi:type="PQ " value="NEG (< 25 ng/mL)" /> <referenceRange> < observationRange> <text>NEGATIVE</text> </ observationRange> </referenceRange> </observation> </ component> <component> <observation moodCode="EVN" classCode="OBS"> <templateId root="216.840.1.284061.10.20.22.4.2" /> <id nullFlavor="NA" /> <code codeSystem="local" code="THCU" displayName=" UR CANNABINOIDS (THC) SCREEN" /> <statusCode code="completed" /> <effectiveTime value="" /> <value unit="" xsi:type="PQ " value="NEG (< 50 ng/mL)" /> <referenceRange> < observationRange> <text>NEGATIVE</text> </ observationRange> </referenceRange> </observation> </ component> <component> <observation moodCode="EVN" classCode="OBS"> <templateId root="16.840.1.439638.10..22.4.2" /> <id nullFlavor="NA" /> <code codeSystem="local" code="COCAU" displayName= "UR COCAINE METABOLITE SCREEN" /> <statusCode code="completed" /> <effectiveTime value="" /> <value unit="" xsi:type="PQ " value="NEG (< 300 ng/mL)" /> <referenceRange> < observationRange> <text>NEGATIVE</text> </ observationRange> </referenceRange> </observation> </ component> <component> <observation moodCode="EVN" classCode="OBS"> <templateId root="07.12.840.1.141262.10..4.2" /> <id nullFlavor="NA" /> <code codeSystem="local" code="METHU" displayName= "UR METHADONE SCREEN" /> <statusCode code="completed" /> < effectiveTime value="[id number]" /> <value unit="" xsi:type="PQ" value="NEG (< 300 ng/mL)" /> <referenceRange> < observationRange> <text>NEGATIVE</text> </ observationRange> </referenceRange> </observation> </ component> <component> <observation moodCode="EVN" classCode="OBS"> <templateId root="07.12.840.1.631202.03.15.22.4.2" /> <id nullFlavor="NA" /> <code codeSystem="local" code="BENZU" displayName= "UR BENZODIAZEPINE SCREEN" /> <statusCode code="completed" /> <effectiveTime value="[id number]" /> <value unit="" xsi:type="PQ" value="POS (> 200 ng/mL)" /> <interpretationCode codeSystem="local " code="*" /> <referenceRange> <observationRange> <text>NEGATIVE</text> </observationRange> </ referenceRange> </observation> </component> </organizer> </entry > <entry> <organizer moodCode="EVN" classCode="BATTERY"> <templateId root="07.12.840.1.383872.22.4.1" /> <id nullFlavor="NA" /> <code codeSystem="local" code="UC" displayName="URINE CULTURE" /> <statusCode code="completed" /> <component> <observation moodCode="EVN" classCode="OBS"> <templateId root="07.12.840.1.520904.22.4.2" /> <id nullFlavor="NA" /> <code codeSystem="local" code="MB" displayName="Microbiology" /> <statusCode code="completed" /> <effectiveTime value="[id number]" /> <value xsi:type="ST" value="<pre ><b>URINE CULTURE</b> See BelowHold order until specimen collected? NoIndication for Culture: Fever > 38.0 C or 100.4 F Costovertebral Angle PainDoes patient have a Rivera? NoURINE CULTURE(F) Red Date/ Time: 07/01/2017 18:10 Matty Date/Time: 07/03/2017 10:32SOURCE: URINESPEC DESC: CLEAN CATCHTREATMENT OF ASYMPTOMATIC BACTERIURIA IS NOT USUALLYCLINICALLY INDICATED.MIXED POS AND NEG?MIXED GRAM POSIT[facility] [place] [address]</pre>" /> <referenceRange> <observationRange> <text /> </observationRange> </referenceRange> </observation> </component> </organizer> </entry> <entry> < organizer moodCode="EVN" classCode="BATTERY"> <templateId root= "216.840.1.657719.03.15.22.4.1" /> <id nullFlavor="NA" /> <code codeSystem="local" code="CAION" displayName="CALCIUM IONIZED" /> < statusCode code="completed" /> <component> <observation moodCode= "EVN" classCode="OBS"> <templateId root="2.16.840.1.505488.10.22.4.2 " /> <id nullFlavor="NA" /> <code codeSystem="local" code= "CAION" displayName="CALCIUM IONIZED" /> <statusCode code="completed" / > <effectiveTime value="[id number]" /> <value unit="mg/dL" xsi:type="PQ" value="4.3" /> <interpretationCode codeSystem="local" code="*" /> <referenceRange> <observationRange> <text>4.5-5.3</text> </observationRange> </referenceRange > </observation> </component> </organizer> </entry> <entry> <organizer moodCode="EVN" classCode="BATTERY"> <templateId root= "840.1.885732.22.4.1" /> <id nullFlavor="NA" /> <code codeSystem="local" code="CBCD" displayName="CBC W/DIFF" /> <statusCode code ="completed" /> <component> <observation moodCode="EVN" classCode= "OBS"> <templateId root="07.12.840.1.987055.03.15.22.4.2" /> < id nullFlavor="NA" /> <code codeSystem="local" code="BA#" displayName= "BASOPHIL #" /> <statusCode code="completed" /> < effectiveTime value="" /> <value unit="k/cumm" xsi:type="PQ " value="0.0" /> <referenceRange> <observationRange> <text>0.0-0.2</text> </observationRange> </ referenceRange> </observation> </component> <component> <observation moodCode="EVN" classCode="OBS"> <templateId root= "07.12.840.1.134737.1022.4.2" /> <id nullFlavor="NA" /> < code codeSystem="local" code="BA%" displayName="BASOPHIL %" /> <statusCode code="completed" /> <effectiveTime value="" /> <value unit="%" xsi:type="PQ" value="0.3" /> < referenceRange> <observationRange> <text>0-1</text> </observationRange> </referenceRange> </observation> </component> <component> <observation moodCode="EVN" classCode= "OBS"> <templateId root="216.840.1.247996.10.22.4.2" /> < id nullFlavor="NA" /> <code codeSystem="local" code="EO#" displayName= "EOSINOPHIL #" /> <statusCode code="completed" /> < effectiveTime value="[id number]" /> <value unit="k/cumm" xsi:type="PQ " value="0.0" /> <interpretationCode codeSystem="local" code="*" /> <referenceRange> <observationRange> <text>0.1-0.5 </text> </observationRange> </referenceRange> </ observation> </component> <component> <observation moodCode= "EVN" classCode="OBS"> <templateId root="216.840.1.636093.1022.4.2 " /> <id nullFlavor="NA" /> <code codeSystem="local" code="EO& #37;" displayName="EOSINOPHIL %" /> <statusCode code="completed" / > <effectiveTime value="" /> <value unit="%" xsi:type="PQ" value="0.3" /> <interpretationCode codeSystem="local" code="*" /> <referenceRange> <observationRange> <text>2-4</text> </observationRange> </referenceRange> </observation> </component> <component> <observation moodCode="EVN" classCode="OBS"> <templateId root= "216.840.1.239327.102022.4.2" /> <id nullFlavor="NA" /> < code codeSystem="local" code="GR#" displayName="GRANULOCYTE #" /> < statusCode code="completed" /> <effectiveTime value="" /> <value unit="k/cumm" xsi:type="PQ" value="5.6" /> < referenceRange> <observationRange> <text>2.0-9.0</text> </observationRange> </referenceRange> </observation > </component> <component> <observation moodCode="EVN" classCode="OBS"> <templateId root="2.16.840.1.359280....4.2" /> <id nullFlavor="NA" /> <code codeSystem="local" code="GR% " displayName="GRANULOCYTE %" /> <statusCode code="completed" /> <effectiveTime value="" /> <value unit="%" xsi: type="PQ" value="73.3" /> <referenceRange> <observationRange > <text>50-75</text> </observationRange> </ referenceRange> </observation> </component> <component> <observation moodCode="EVN" classCode="OBS"> <templateId root= "2.16.840.1.117005....4.2" /> <id nullFlavor="NA" /> < code codeSystem="local" code="LY#" displayName="LYMPHOCYTE #" /> < statusCode code="completed" /> <effectiveTime value="" /> <value unit="k/cumm" xsi:type="PQ" value="0.9" /> < interpretationCode codeSystem="local" code="*" /> <referenceRange> <observationRange> <text>1.0-4.0</text> </ observationRange> </referenceRange> </observation> </ component> <component> <observation moodCode="EVN" classCode="OBS"> <templateId root="07.12.840.1.228736.10.22.4.2" /> <id nullFlavor="NA" /> <code codeSystem="local" code="LY%" displayName= "LYMPHOCYTE %" /> <statusCode code="completed" /> < effectiveTime value="" /> <value unit="%" xsi:type="PQ " value="11.3" /> <interpretationCode codeSystem="local" code="*" /> <referenceRange> <observationRange> <text>20-30< /text> </observationRange> </referenceRange> </ observation> </component> <component> <observation moodCode= "EVN" classCode="OBS"> <templateId root="840.1.084613.1022.4.2 " /> <id nullFlavor="NA" /> <code codeSystem="local" code="MCH " displayName="MEAN CELL HGB" /> <statusCode code="completed" /> <effectiveTime value="" /> <value unit="pg" xsi:type= "PQ" value="23.4" /> <interpretationCode codeSystem="local" code="*" / > <referenceRange> <observationRange> <text> 27.0-33.0</text> </observationRange> </referenceRange> </observation> </component> <component> <observation moodCode="EVN" classCode="OBS"> <templateId root= "07.12.840.1.882808.102022.4.2" /> <id nullFlavor="NA" /> < code codeSystem="local" code="MCHC" displayName="MEAN CELL HGB CONCENTRATION" / > <statusCode code="completed" /> <effectiveTime value= "" /> <value unit="g/dL" xsi:type="PQ" value="29.0" /> <interpretationCode codeSystem="local" code="*" /> < referenceRange> <observationRange> <text>32.0-37.0</text > </observationRange> </referenceRange> </observation > </component> <component> <observation moodCode="EVN" classCode="OBS"> <templateId root="16.840.1.846025.10..22.4.2" /> <id nullFlavor="NA" /> <code codeSystem="local" code="MCV" displayName="MEAN CELL VOLUME" /> <statusCode code="completed" /> <effectiveTime value="" /> <value unit="fl" xsi:type= "PQ" value="80.7" /> <referenceRange> <observationRange> <text>80.0-100.0</text> </observationRange> </ referenceRange> </observation> </component> <component> <observation moodCode="EVN" classCode="OBS"> <templateId root= "16.840.1.162626.10.20.22.4.2" /> <id nullFlavor="NA" /> < code codeSystem="local" code="MO#" displayName="MONOCYTE #" /> < statusCode code="completed" /> <effectiveTime value="" /> <value unit="k/cumm" xsi:type="PQ" value="1.1" /> < interpretationCode codeSystem="local" code="*" /> <referenceRange> <observationRange> <text>0.1-1.0</text> </ observationRange> </referenceRange> </observation> </ component> <component> <observation moodCode="EVN" classCode="OBS"> <templateId root="216.840.1.955666.10..22.4.2" /> <id nullFlavor="NA" /> <code codeSystem="local" code="MO%" displayName= "MONOCYTE %" /> <statusCode code="completed" /> < effectiveTime value="" /> <value unit="%" xsi:type="PQ " value="14.5" /> <interpretationCode codeSystem="local" code="*" /> <referenceRange> <observationRange> <text>4-6</ text> </observationRange> </referenceRange> </ observation> </component> <component> <observation moodCode= "EVN" classCode="OBS"> <templateId root="07.12.840.1.460824.22.4.2 " /> <id nullFlavor="NA" /> <code codeSystem="local" code= "MPVT" displayName="MEAN PLATELET VOLUME" /> <statusCode code= "completed" /> <effectiveTime value="" /> <value unit="fl" xsi:type="PQ" value="10.4" /> <referenceRange> < observationRange> <text>8.5-10.9</text> </ observationRange> </referenceRange> </observation> </ component> <component> <observation moodCode="EVN" classCode="OBS"> <templateId root="2.16.840.1.613471.10.22.4.2" /> <id nullFlavor="NA" /> <code codeSystem="local" code="RBC" displayName=" RED BLOOD CELL" /> <statusCode code="completed" /> < effectiveTime value="" /> <value unit="m/cumm" xsi:type="PQ " value="3.21" /> <interpretationCode codeSystem="local" code="*" /> <referenceRange> <observationRange> <text>4.00- 6.00</text> </observationRange> </referenceRange> </ observation> </component> <component> <observation moodCode= "EVN" classCode="OBS"> <templateId root="216.840.1.618988.03.15.22.4.2 " /> <id nullFlavor="NA" /> <code codeSystem="local" code="RDW " displayName="RED CELL DISTRIBUTION WIDTH" /> <statusCode code= "completed" /> <effectiveTime value="[id number]" /> <value unit="%" xsi:type="PQ" value="16.9" /> <interpretationCode codeSystem="local" code="*" /> <referenceRange> < observationRange> <text>11.0-15.6</text> </ observationRange> </referenceRange> </observation> </ component> <component> <observation moodCode="EVN" classCode="OBS"> <templateId root="16.840.1.987441.03.15.22.4.2" /> <id nullFlavor="NA" /> <code codeSystem="local" code="WBC" displayName= "WHITE BLOOD CELL" /> <statusCode code="completed" /> < effectiveTime value="229129114908" /> <value unit="k/cumm" xsi:type="PQ " value="7.6" /> <referenceRange> <observationRange> <text>5.0-10.0</text> </observationRange> </ referenceRange> </observation> </component> <component> <observation moodCode="EVN" classCode="OBS"> <templateId root= "216.840.1.978768.10.2022.4.2" /> <id nullFlavor="NA" /> < code codeSystem="local" code="HGBT" displayName="HEMOGLOBIN" /> < statusCode code="completed" /> <effectiveTime value="" /> <value unit="gm/dL" xsi:type="PQ" value="7.5" /> < interpretationCode codeSystem="local" code="*" /> <referenceRange> <observationRange> <text>12.0-16.0</text> </ observationRange> </referenceRange> </observation> </ component> <component> <observation moodCode="EVN" classCode="OBS"> <templateId root="07.12.840.1.186986.03.15.22.4.2" /> <id nullFlavor="NA" /> <code codeSystem="local" code="HCTT" displayName= "HEMATOCRIT" /> <statusCode code="completed" /> < effectiveTime value="" /> <value unit="%" xsi:type="PQ " value="25.9" /> <interpretationCode codeSystem="local" code="*" /> <referenceRange> <observationRange> <text>37.0- 47.0</text> </observationRange> </referenceRange> </ observation> </component> <component> <observation moodCode= "EVN" classCode="OBS"> <templateId root="07.12.840.1.022045.10..4.2 " /> <id nullFlavor="NA" /> <code codeSystem="local" code= "NRBC%" displayName="NRBC %" /> <statusCode code="completed" / > <effectiveTime value="" /> <value unit="/100WBC " xsi:type="PQ" value="0.0" /> <referenceRange> < observationRange> <text>0.0-0.0</text> </ observationRange> </referenceRange> </observation> </ component> <component> <observation moodCode="EVN" classCode="OBS"> <templateId root="216.840.1.138147.10..22.4.2" /> <id nullFlavor="NA" /> <code codeSystem="local" code="PLTT" displayName= "PLATELET COUNT" /> <statusCode code="completed" /> < effectiveTime value="607665361005" /> <value unit="k/cumm" xsi:type="PQ " value="131" /> <interpretationCode codeSystem="local" code="*" /> <referenceRange> <observationRange> <text>150-400 </text> </observationRange> </referenceRange> </ observation> </component> <component> <observation moodCode= "EVN" classCode="OBS"> <templateId root="16.840.1.472774.03.15.22.4.2 " /> <id nullFlavor="NA" /> <code codeSystem="local" code="IG& #37;" displayName="IMMATURE GRANULOCYTE %" /> <statusCode code= "completed" /> <effectiveTime value="" /> <value unit="%" xsi:type="PQ" value="0.3" /> <referenceRange> < observationRange> <text>0.0-0.6</text> </ observationRange> </referenceRange> </observation> </ component> <component> <observation moodCode="EVN" classCode="OBS"> <templateId root="216.840.1.960159.10..22.4.2" /> <id nullFlavor="NA" /> <code codeSystem="local" code="IG#" displayName= "IMMATURE GRANULOCYTE #" /> <statusCode code="completed" /> < effectiveTime value="035582770468" /> <value unit="k/cumm" xsi:type="PQ " value="0.02" /> <referenceRange> <observationRange> <text>0.00-0.09</text> </observationRange> </ referenceRange> </observation> </component> <component> <observation moodCode="EVN" classCode="OBS"> <templateId root= "840.1.293871.03.15.22.4.2" /> <id nullFlavor="NA" /> < code codeSystem="local" code="IPFT" displayName="IMMATURE PLATELET FRACTION" /> <statusCode code="completed" /> <effectiveTime value= "746847009829" /> <value unit="%" xsi:type="PQ" value="2.8" /> <referenceRange> <observationRange> <text>1.1-6.1< /text> </observationRange> </referenceRange> </ observation> </component> </organizer> </entry> <entry> <organizer moodCode="EVN" classCode="BATTERY"> <templateId root= "840.1.191741.03.15.22.4.1" /> <id nullFlavor="NA" /> <code codeSystem="local" code="RENAL" displayName="RENAL FUNCTION PANEL" /> < statusCode code="completed" /> <component> <observation moodCode= "EVN" classCode="OBS"> <templateId root="840.1.348249.22.4.2 " /> <id nullFlavor="NA" /> <code codeSystem="local" code="K" displayName="POTASSIUM" /> <statusCode code="completed" /> < effectiveTime value="601436650969" /> <value unit="mmol/L" xsi:type="PQ " value="3.2" /> <interpretationCode codeSystem="local" code="*" /> <referenceRange> <observationRange> <text>3.5-5.3 </text> </observationRange> </referenceRange> </ observation> </component> <component> <observation moodCode= "EVN" classCode="OBS"> <templateId root="16.840.1.278020.10..4.2 " /> <id nullFlavor="NA" /> <code codeSystem="local" code= "eGFR" displayName="EST GFR (MDRD)" /> <statusCode code="completed" /> <effectiveTime value="" /> <value unit="mL/min" xsi:type="PQ" value="> 60" /> <referenceRange> < observationRange> <text>> 59</text> </ observationRange> </referenceRange> </observation> </ component> <component> <observation moodCode="EVN" classCode="OBS"> <templateId root="16.840.1.499720....4.2" /> <id nullFlavor="NA" /> <code codeSystem="local" code="GAP" displayName= "ANION GAP" /> <statusCode code="completed" /> <effectiveTime value="116669771080" /> <value unit="mmol/L" xsi:type="PQ" value="7" / > <referenceRange> <observationRange> <text>5- 15</text> </observationRange> </referenceRange> </ observation> </component> <component> <observation moodCode= "EVN" classCode="OBS"> <templateId root="16.840.1.734925.03.15.22.4.2 " /> <id nullFlavor="NA" /> <code codeSystem="local" code= "eCrCl" displayName="EST CrCl (CG)" /> <statusCode code="completed" /> <effectiveTime value="" /> <value unit="mL/min" xsi:type="PQ" value="> 60" /> <referenceRange> < observationRange> <text>> 59</text> </ observationRange> </referenceRange> </observation> </ component> <component> <observation moodCode="EVN" classCode="OBS"> <templateId root="07.12.840.1.279683.03.15.22.4.2" /> <id nullFlavor="NA" /> <code codeSystem="local" code="GLU" displayName= "GLUCOSE" /> <statusCode code="completed" /> <effectiveTime value="" /> <value unit="mg/dL" xsi:type="PQ" value="131" / > <interpretationCode codeSystem="local" code="*" /> < referenceRange> <observationRange> <text>70-99</text> </observationRange> </referenceRange> </observation> </component> <component> <observation moodCode="EVN" classCode= "OBS"> <templateId root="07.12.840.1.163279.03.15.22.4.2" /> < id nullFlavor="NA" /> <code codeSystem="local" code="CA" displayName= "CALCIUM" /> <statusCode code="completed" /> <effectiveTime value="" /> <value unit="mg/dL" xsi:type="PQ" value="7.0" / > <interpretationCode codeSystem="local" code="*" /> < referenceRange> <observationRange> <text>8.5-10.1</text > </observationRange> </referenceRange> </observation > </component> <component> <observation moodCode="EVN" classCode="OBS"> <templateId root="07.12.840.1.229206.10.20.22.4.2" /> <id nullFlavor="NA" /> <code codeSystem="local" code="BUN" displayName="BLOOD UREA NITROGEN" /> <statusCode code="completed" /> <effectiveTime value="" /> <value unit="mg/dL" xsi: type="PQ" value="6" /> <interpretationCode codeSystem="local" code="*" /> <referenceRange> <observationRange> <text>7- 20</text> </observationRange> </referenceRange> </ observation> </component> <component> <observation moodCode= "EVN" classCode="OBS"> <templateId root="840.1.871796...4.2 " /> <id nullFlavor="NA" /> <code codeSystem="local" code= "CREAT" displayName="CREATININE" /> <statusCode code="completed" /> <effectiveTime value="349976867581" /> <value unit="mg/dL" xsi: type="PQ" value="0.7" /> <referenceRange> <observationRange > <text>0.6-1.0</text> </observationRange> </ referenceRange> </observation> </component> <component> <observation moodCode="EVN" classCode="OBS"> <templateId root= "07.12.840.1.726111.10.20.22.4.2" /> <id nullFlavor="NA" /> < code codeSystem="local" code="NA" displayName="SODIUM" /> <statusCode code="completed" /> <effectiveTime value="" /> < value unit="mmol/L" xsi:type="PQ" value="139" /> <referenceRange> <observationRange> <text>135-148</text> </ observationRange> </referenceRange> </observation> </ component> <component> <observation moodCode="EVN" classCode="OBS"> <templateId root="216.840.1.221092.03.15.22.4.2" /> <id nullFlavor="NA" /> <code codeSystem="local" code="CL" displayName= "CHLORIDE" /> <statusCode code="completed" /> <effectiveTime value="" /> <value unit="mmol/L" xsi:type="PQ" value="110" /> <referenceRange> <observationRange> <text>98 -110</text> </observationRange> </referenceRange> </ observation> </component> <component> <observation moodCode= "EVN" classCode="OBS"> <templateId root="07.12.840.1.421544.03.15.22.4.2 " /> <id nullFlavor="NA" /> <code codeSystem="local" code="CO2 " displayName="CARBON DIOXIDE" /> <statusCode code="completed" /> <effectiveTime value="" /> <value unit="mmol/L" xsi: type="PQ" value="22" /> <referenceRange> <observationRange> <text>21-32</text> </observationRange> </ referenceRange> </observation> </component> <component> <observation moodCode="EVN" classCode="OBS"> <templateId root= "07.12.840.1.647756.22.4.2" /> <id nullFlavor="NA" /> < code codeSystem="local" code="ALB" displayName="ALBUMIN" /> < statusCode code="completed" /> <effectiveTime value="" /> <value unit="gm/dL" xsi:type="PQ" value="2.2" /> < interpretationCode codeSystem="local" code="*" /> <referenceRange> <observationRange> <text>3.4-5.0</text> </ observationRange> </referenceRange> </observation> </ component> <component> <observation moodCode="EVN" classCode="OBS"> <templateId root="840.1.161129.03.15.22.4.2" /> <id nullFlavor="NA" /> <code codeSystem="local" code="PHOS" displayName= "PHOSPHORUS" /> <statusCode code="completed" /> < effectiveTime value="" /> <value unit="mg/dL" xsi:type="PQ " value="1.0" /> <interpretationCode codeSystem="local" code="*" /> <referenceRange> <observationRange> <text>2.5-4.9 </text> </observationRange> </referenceRange> </ observation> </component> </organizer> </entry> <entry> <organizer moodCode="EVN" classCode="BATTERY"> <templateId root= "840.1.045294.22.4.1" /> <id nullFlavor="NA" /> <code codeSystem="local" code="MAG" displayName="MAGNESIUM" /> <statusCode code= "completed" /> <component> <observation moodCode="EVN" classCode= "OBS"> <templateId root="840.1.512941.2022.4.2" /> < id nullFlavor="NA" /> <code codeSystem="local" code="MAG" displayName= "MAGNESIUM" /> <statusCode code="completed" /> <effectiveTime value="649070812058" /> <value unit="mg/dL" xsi:type="PQ" value="1.6" / > <interpretationCode codeSystem="local" code="*" /> < referenceRange> <observationRange> <text>1.8-2.4</text> </observationRange> </referenceRange> </observation > </component> </organizer> </entry> <entry> <organizer moodCode= "EVN" classCode="BATTERY"> <templateId root="16.840.1.055519.10..22.4.1 " /> <id nullFlavor="NA" /> <code codeSystem="local" code="LEANNE" displayName="FERRITIN" /> <statusCode code="completed" /> <component> <observation moodCode="EVN" classCode="OBS"> <templateId root= "07.12.840.1.606248.10..22.4.2" /> <id nullFlavor="NA" /> < code codeSystem="local" code="LEANNE" displayName="FERRITIN" /> < statusCode code="completed" /> <effectiveTime value="846167659150" /> <value unit="ng/mL" xsi:type="PQ" value="48" /> < referenceRange> <observationRange> <text>8-252</text> </observationRange> </referenceRange> </observation> </component> </organizer> </entry> <entry> <organizer moodCode="EVN " classCode="BATTERY"> <templateId root="07.12.840.1.855525.10.20.22.4.1" / > <id nullFlavor="NA" /> <code codeSystem="local" code="FETIBC" displayName="IRON W/ BINDING CAPACITY" /> <statusCode code="completed" /> <component> <observation moodCode="EVN" classCode="OBS"> < templateId root="07.12.840.1.022276.10..4.2" /> <id nullFlavor="NA " /> <code codeSystem="local" code="FESAT" displayName="IRON SATURATION " /> <statusCode code="completed" /> <effectiveTime value= "" /> <value unit="%SAT" xsi:type="PQ" value="3" /> <interpretationCode codeSystem="local" code="*" /> < referenceRange> <observationRange> <text>11-46</text> </observationRange> </referenceRange> </observation> </component> <component> <observation moodCode="EVN" classCode= "OBS"> <templateId root="840.1.602399.03.15.22.4.2" /> < id nullFlavor="NA" /> <code codeSystem="local" code="TIBC" displayName= "IRON BINDING CAPACITY, TOTAL" /> <statusCode code="completed" /> <effectiveTime value="624807485098" /> <value unit="mcg/dL" xsi: type="PQ" value="240" /> <interpretationCode codeSystem="local" code="* " /> <referenceRange> <observationRange> <text> 250-450</text> </observationRange> </referenceRange> </observation> </component> <component> <observation moodCode= "EVN" classCode="OBS"> <templateId root="07.12.840.1.833009.10..4.2 " /> <id nullFlavor="NA" /> <code codeSystem="local" code= "IRON" displayName="IRON" /> <statusCode code="completed" /> < effectiveTime value="536682316498" /> <value unit="mcg/dL" xsi:type="PQ " value="8" /> <interpretationCode codeSystem="local" code="*" /> <referenceRange> <observationRange> <text>35-150</ text> </observationRange> </referenceRange> </ observation> </component> </organizer> </entry> <entry> <organizer moodCode="EVN" classCode="BATTERY"> <templateId root= "16.840.1.426251.10..22.4.1" /> <id nullFlavor="NA" /> <code codeSystem="local" code="LACTG" displayName="LACTIC ACID" /> <statusCode code="completed" /> <component> <observation moodCode="EVN" classCode="OBS"> <templateId root="07.12.840.1.445465.10..22.4.2" /> <id nullFlavor="NA" /> <code codeSystem="local" code="LACT" displayName="LACTIC ACID" /> <statusCode code="completed" /> < effectiveTime value="[id number]" /> <value unit="mmol/L" xsi:type="PQ " value="0.7" /> <referenceRange> <observationRange> <text>0.5-2.0</text> </observationRange> </ referenceRange> </observation> </component> </organizer> </entry > <entry> <organizer moodCode="EVN" classCode="BATTERY"> <templateId root="07.12.840.1.976951.10..22.4.1" /> <id nullFlavor="NA" /> <code codeSystem="local" code="CBC" displayName="CBC" /> <statusCode code= "completed" /> <component> <observation moodCode="EVN" classCode= "OBS"> <templateId root="216.840.1.580311.10..4.2" /> < id nullFlavor="NA" /> <code codeSystem="local" code="MCH" displayName= "MEAN CELL HGB" /> <statusCode code="completed" /> < effectiveTime value="" /> <value unit="pg" xsi:type="PQ" value="23.4" /> <interpretationCode codeSystem="local" code="*" /> <referenceRange> <observationRange> <text>27.0- 33.0</text> </observationRange> </referenceRange> </ observation> </component> <component> <observation moodCode= "EVN" classCode="OBS"> <templateId root="07.12.840.1.100656.03.15.224.2 " /> <id nullFlavor="NA" /> <code codeSystem="local" code= "MCHC" displayName="MEAN CELL HGB CONCENTRATION" /> <statusCode code= "completed" /> <effectiveTime value="" /> <value unit="g/dL" xsi:type="PQ" value="28.7" /> <interpretationCode codeSystem="local" code="*" /> <referenceRange> < observationRange> <text>32.0-37.0</text> </ observationRange> </referenceRange> </observation> </ component> <component> <observation moodCode="EVN" classCode="OBS"> <templateId root="07.12.840.1.321522.10.4.2" /> <id nullFlavor="NA" /> <code codeSystem="local" code="MCV" displayName= "MEAN CELL VOLUME" /> <statusCode code="completed" /> < effectiveTime value="" /> <value unit="fl" xsi:type="PQ" value="81.4" /> <referenceRange> <observationRange> <text>80.0-100.0</text> </observationRange> </ referenceRange> </observation> </component> <component> <observation moodCode="EVN" classCode="OBS"> <templateId root= "216.840.1.339874.22.4.2" /> <id nullFlavor="NA" /> < code codeSystem="local" code="MPVT" displayName="MEAN PLATELET VOLUME" /> <statusCode code="completed" /> <effectiveTime value=" " /> <value unit="fl" xsi:type="PQ" value="10.1" /> < referenceRange> <observationRange> <text>8.5-10.9</text > </observationRange> </referenceRange> </observation > </component> <component> <observation moodCode="EVN" classCode="OBS"> <templateId root="216.840.1.144560.03.15.22.4.2" /> <id nullFlavor="NA" /> <code codeSystem="local" code="RBC" displayName="RED BLOOD CELL" /> <statusCode code="completed" /> <effectiveTime value="" /> <value unit="m/cumm" xsi:type ="PQ" value="3.34" /> <interpretationCode codeSystem="local" code="*" / > <referenceRange> <observationRange> <text> 4.00-6.00</text> </observationRange> </referenceRange> </observation> </component> <component> <observation moodCode="EVN" classCode="OBS"> <templateId root= "216.840.1.238174.22.4.2" /> <id nullFlavor="NA" /> < code codeSystem="local" code="RDW" displayName="RED CELL DISTRIBUTION WIDTH" /> <statusCode code="completed" /> <effectiveTime value= "" /> <value unit="%" xsi:type="PQ" value="17.0" /> <interpretationCode codeSystem="local" code="*" /> < referenceRange> <observationRange> <text>11.0-15.6</text > </observationRange> </referenceRange> </observation > </component> <component> <observation moodCode="EVN" classCode="OBS"> <templateId root="07.12.840.1.346783.22.4.2" /> <id nullFlavor="NA" /> <code codeSystem="local" code="WBC" displayName="WHITE BLOOD CELL" /> <statusCode code="completed" /> <effectiveTime value="" /> <value unit="k/cumm" xsi: type="PQ" value="7.3" /> <referenceRange> <observationRange > <text>5.0-10.0</text> </observationRange> </ referenceRange> </observation> </component> <component> <observation moodCode="EVN" classCode="OBS"> <templateId root= "07.12.840.1.494391.22.4.2" /> <id nullFlavor="NA" /> < code codeSystem="local" code="HGBT" displayName="HEMOGLOBIN" /> < statusCode code="completed" /> <effectiveTime value="" /> <value unit="gm/dL" xsi:type="PQ" value="7.8" /> < interpretationCode codeSystem="local" code="*" /> <referenceRange> <observationRange> <text>12.0-16.0</text> </ observationRange> </referenceRange> </observation> </ component> <component> <observation moodCode="EVN" classCode="OBS"> <templateId root="216.840.1.078680.10.20.22.4.2" /> <id nullFlavor="NA" /> <code codeSystem="local" code="HCTT" displayName= "HEMATOCRIT" /> <statusCode code="completed" /> < effectiveTime value="417828454665" /> <value unit="%" xsi:type="PQ " value="27.2" /> <interpretationCode codeSystem="local" code="*" /> <referenceRange> <observationRange> <text>37.0- 47.0</text> </observationRange> </referenceRange> </ observation> </component> <component> <observation moodCode= "EVN" classCode="OBS"> <templateId root="16.840.1.224720.10...4.2 " /> <id nullFlavor="NA" /> <code codeSystem="local" code= "NRBC%" displayName="NRBC %" /> <statusCode code="completed" / > <effectiveTime value="323385754582" /> <value unit="/100WBC " xsi:type="PQ" value="0.0" /> <referenceRange> < observationRange> <text>0.0-0.0</text> </ observationRange> </referenceRange> </observation> </ component> <component> <observation moodCode="EVN" classCode="OBS"> <templateId root="216.840.1.724233.10.20.22.4.2" /> <id nullFlavor="NA" /> <code codeSystem="local" code="PLTT" displayName= "PLATELET COUNT" /> <statusCode code="completed" /> < effectiveTime value="522239141142" /> <value unit="k/cumm" xsi:type="PQ " value="147" /> <interpretationCode codeSystem="local" code="*" /> <referenceRange> <observationRange> <text>150-400 </text> </observationRange> </referenceRange> </ observation> </component> <component> <observation moodCode= "EVN" classCode="OBS"> <templateId root="16.840.1.511479.03.15.22.4.2 " /> <id nullFlavor="NA" /> <code codeSystem="local" code= "IPFT" displayName="IMMATURE PLATELET FRACTION" /> <statusCode code= "completed" /> <effectiveTime value="" /> <value unit="%" xsi:type="PQ" value="1.9" /> <referenceRange> < observationRange> <text>1.1-6.1</text> </ observationRange> </referenceRange> </observation> </ component> </organizer> </entry> <entry> <organizer moodCode="EVN" classCode="BATTERY"> <templateId root="07.12.840.1.627646.22.4.1" /> <id nullFlavor="NA" /> <code codeSystem="local" code="RENAL" displayName="RENAL FUNCTION PANEL" /> <statusCode code="completed" /> <component> <observation moodCode="EVN" classCode="OBS"> < templateId root="07.12.840.1.445911.10.2022.4.2" /> <id nullFlavor="NA " /> <code codeSystem="local" code="K" displayName="POTASSIUM" /> <statusCode code="completed" /> <effectiveTime value="032222665528 " /> <value unit="mmol/L" xsi:type="PQ" value="4.6" /> < referenceRange> <observationRange> <text>3.5-5.3</text> </observationRange> </referenceRange> </observation > </component> <component> <observation moodCode="EVN" classCode="OBS"> <templateId root="216.840.1.910015.10...4.2" /> <id nullFlavor="NA" /> <code codeSystem="local" code="eGFR" displayName="EST GFR (MDRD)" /> <statusCode code="completed" /> <effectiveTime value="899623115184" /> <value unit="mL/min" xsi:type ="PQ" value="> 60" /> <referenceRange> <observationRange > <text>> 59</text> </observationRange> </ referenceRange> </observation> </component> <component> <observation moodCode="EVN" classCode="OBS"> <templateId root= "16.840.1.899135.10...4.2" /> <id nullFlavor="NA" /> < code codeSystem="local" code="GAP" displayName="ANION GAP" /> < statusCode code="completed" /> <effectiveTime value="510526956643" /> <value unit="mmol/L" xsi:type="PQ" value="6" /> < referenceRange> <observationRange> <text>5-15</text> </observationRange> </referenceRange> </observation> </component> <component> <observation moodCode="EVN" classCode= "OBS"> <templateId root="16.840.1.326704.03.15.22.4.2" /> < id nullFlavor="NA" /> <code codeSystem="local" code="eCrCl" displayName ="EST CrCl (CG)" /> <statusCode code="completed" /> < effectiveTime value="" /> <value unit="mL/min" xsi:type="PQ " value="> 60" /> <referenceRange> <observationRange> <text>> 59</text> </observationRange> </ referenceRange> </observation> </component> <component> <observation moodCode="EVN" classCode="OBS"> <templateId root= "2.16.840.1.943456.03.15.22.4.2" /> <id nullFlavor="NA" /> < code codeSystem="local" code="GLU" displayName="GLUCOSE" /> < statusCode code="completed" /> <effectiveTime value="" /> <value unit="mg/dL" xsi:type="PQ" value="85" /> < referenceRange> <observationRange> <text>70-99</text> </observationRange> </referenceRange> </observation> </component> <component> <observation moodCode="EVN" classCode= "OBS"> <templateId root="2.16.840.1.174438.03.15.22.4.2" /> < id nullFlavor="NA" /> <code codeSystem="local" code="CA" displayName= "CALCIUM" /> <statusCode code="completed" /> <effectiveTime value="" /> <value unit="mg/dL" xsi:type="PQ" value="7.6" / > <interpretationCode codeSystem="local" code="*" /> < referenceRange> <observationRange> <text>8.5-10.1</text > </observationRange> </referenceRange> </observation > </component> <component> <observation moodCode="EVN" classCode="OBS"> <templateId root="2.16.840.1.638971.10..22.4.2" /> <id nullFlavor="NA" /> <code codeSystem="local" code="BUN" displayName="BLOOD UREA NITROGEN" /> <statusCode code="completed" /> <effectiveTime value="" /> <value unit="mg/dL" xsi: type="PQ" value="4" /> <interpretationCode codeSystem="local" code="*" /> <referenceRange> <observationRange> <text>7- 20</text> </observationRange> </referenceRange> </ observation> </component> <component> <observation moodCode= "EVN" classCode="OBS"> <templateId root="216.840.1.223083.03.15.224.2 " /> <id nullFlavor="NA" /> <code codeSystem="local" code= "CREAT" displayName="CREATININE" /> <statusCode code="completed" /> <effectiveTime value="" /> <value unit="mg/dL" xsi: type="PQ" value="0.6" /> <referenceRange> <observationRange > <text>0.6-1.0</text> </observationRange> </ referenceRange> </observation> </component> <component> <observation moodCode="EVN" classCode="OBS"> <templateId root= "2.16.840.1.523380.10...4.2" /> <id nullFlavor="NA" /> < code codeSystem="local" code="NA" displayName="SODIUM" /> <statusCode code="completed" /> <effectiveTime value="471138243893" /> < value unit="mmol/L" xsi:type="PQ" value="141" /> <referenceRange> <observationRange> <text>135-148</text> </ observationRange> </referenceRange> </observation> </ component> <component> <observation moodCode="EVN" classCode="OBS"> <templateId root="216.840.1.812160.10...4.2" /> <id nullFlavor="NA" /> <code codeSystem="local" code="CL" displayName= "CHLORIDE" /> <statusCode code="completed" /> <effectiveTime value="505703203803" /> <value unit="mmol/L" xsi:type="PQ" value="112" /> <interpretationCode codeSystem="local" code="*" /> < referenceRange> <observationRange> <text>98-110</text> </observationRange> </referenceRange> </observation> </component> <component> <observation moodCode="EVN" classCode ="OBS"> <templateId root="07.12.840.1.758546.10..4.2" /> < id nullFlavor="NA" /> <code codeSystem="local" code="CO2" displayName= "CARBON DIOXIDE" /> <statusCode code="completed" /> < effectiveTime value="449522937277" /> <value unit="mmol/L" xsi:type="PQ " value="23" /> <referenceRange> <observationRange> <text>21-32</text> </observationRange> </ referenceRange> </observation> </component> <component> <observation moodCode="EVN" classCode="OBS"> <templateId root= "216.840.1.481851.10...4.2" /> <id nullFlavor="NA" /> < code codeSystem="local" code="ALB" displayName="ALBUMIN" /> < statusCode code="completed" /> <effectiveTime value="" /> <value unit="gm/dL" xsi:type="PQ" value="2.3" /> < interpretationCode codeSystem="local" code="*" /> <referenceRange> <observationRange> <text>3.4-5.0</text> </ observationRange> </referenceRange> </observation> </ component> <component> <observation moodCode="EVN" classCode="OBS"> <templateId root="840.1.924936.03.15.22.4.2" /> <id nullFlavor="NA" /> <code codeSystem="local" code="PHOS" displayName= "PHOSPHORUS" /> <statusCode code="completed" /> < effectiveTime value="" /> <value unit="mg/dL" xsi:type="PQ " value="3.8" /> <referenceRange> <observationRange> <text>2.5-4.9</text> </observationRange> </ referenceRange> </observation> </component> </organizer> </entry > <entry> <organizer moodCode="EVN" classCode="BATTERY"> <templateId root="840.1.694987.03.15.22.4.1" /> <id nullFlavor="NA" /> <code codeSystem="local" code="CBCD" displayName="CBC W/DIFF" /> <statusCode code ="completed" /> <component> <observation moodCode="EVN" classCode= "OBS"> <templateId root="840.1.662773.03.15.22.4.2" /> < id nullFlavor="NA" /> <code codeSystem="local" code="BA#" displayName= "BASOPHIL #" /> <statusCode code="completed" /> < effectiveTime value="343602937330" /> <value unit="k/cumm" xsi:type="PQ " value="0.1" /> <referenceRange> <observationRange> <text>0.0-0.2</text> </observationRange> </ referenceRange> </observation> </component> <component> <observation moodCode="EVN" classCode="OBS"> <templateId root= "216.840.1.842637.10...4.2" /> <id nullFlavor="NA" /> < code codeSystem="local" code="BA%" displayName="BASOPHIL %" /> <statusCode code="completed" /> <effectiveTime value="267129768508" /> <value unit="%" xsi:type="PQ" value="0.9" /> < referenceRange> <observationRange> <text>0-1</text> </observationRange> </referenceRange> </observation> </component> <component> <observation moodCode="EVN" classCode= "OBS"> <templateId root="216.840.1.006563.10...4.2" /> < id nullFlavor="NA" /> <code codeSystem="local" code="EO#" displayName= "EOSINOPHIL #" /> <statusCode code="completed" /> < effectiveTime value="749298910121" /> <value unit="k/cumm" xsi:type="PQ " value="0.3" /> <referenceRange> <observationRange> <text>0.1-0.5</text> </observationRange> </ referenceRange> </observation> </component> <component> <observation moodCode="EVN" classCode="OBS"> <templateId root= "07.12.840.1.456468.102022.4.2" /> <id nullFlavor="NA" /> < code codeSystem="local" code="EO%" displayName="EOSINOPHIL %" /> <statusCode code="completed" /> <effectiveTime value="721397024069" /> <value unit="%" xsi:type="PQ" value="5.2" /> < interpretationCode codeSystem="local" code="*" /> <referenceRange> <observationRange> <text>2-4</text> </ observationRange> </referenceRange> </observation> </ component> <component> <observation moodCode="EVN" classCode="OBS"> <templateId root="840.1.370843.1022.4.2" /> <id nullFlavor="NA" /> <code codeSystem="local" code="GR#" displayName= "GRANULOCYTE #" /> <statusCode code="completed" /> < effectiveTime value="851411720687" /> <value unit="k/cumm" xsi:type="PQ " value="3.3" /> <referenceRange> <observationRange> <text>2.0-9.0</text> </observationRange> </ referenceRange> </observation> </component> <component> <observation moodCode="EVN" classCode="OBS"> <templateId root= "07.12.840.1.700001.10.2022.4.2" /> <id nullFlavor="NA" /> < code codeSystem="local" code="GR%" displayName="GRANULOCYTE %" /> <statusCode code="completed" /> <effectiveTime value="845812696353 " /> <value unit="%" xsi:type="PQ" value="56.4" /> < referenceRange> <observationRange> <text>50-75</text> </observationRange> </referenceRange> </observation> </component> <component> <observation moodCode="EVN" classCode= "OBS"> <templateId root="07.12.840.1.566038.10..4.2" /> < id nullFlavor="NA" /> <code codeSystem="local" code="LY#" displayName= "LYMPHOCYTE #" /> <statusCode code="completed" /> < effectiveTime value="919610687546" /> <value unit="k/cumm" xsi:type="PQ " value="1.6" /> <referenceRange> <observationRange> <text>1.0-4.0</text> </observationRange> </ referenceRange> </observation> </component> <component> <observation moodCode="EVN" classCode="OBS"> <templateId root= "07.12.840.1.791249.104.2" /> <id nullFlavor="NA" /> < code codeSystem="local" code="LY%" displayName="LYMPHOCYTE %" /> <statusCode code="completed" /> <effectiveTime value="746888185040" /> <value unit="%" xsi:type="PQ" value="27.6" /> < referenceRange> <observationRange> <text>20-30</text> </observationRange> </referenceRange> </observation> </component> <component> <observation moodCode="EVN" classCode= "OBS"> <templateId root="07.12.840.1.072699.1020.4.2" /> < id nullFlavor="NA" /> <code codeSystem="local" code="MCH" displayName= "MEAN CELL HGB" /> <statusCode code="completed" /> < effectiveTime value="486483096747" /> <value unit="pg" xsi:type="PQ" value="27.7" /> <referenceRange> <observationRange> <text>27.0-33.0</text> </observationRange> </ referenceRange> </observation> </component> <component> <observation moodCode="EVN" classCode="OBS"> <templateId root= "2.840.1.545399.102022.4.2" /> <id nullFlavor="NA" /> < code codeSystem="local" code="MCHC" displayName="MEAN CELL HGB CONCENTRATION" / > <statusCode code="completed" /> <effectiveTime value= "971873733004" /> <value unit="g/dL" xsi:type="PQ" value="31.8" /> <interpretationCode codeSystem="local" code="*" /> < referenceRange> <observationRange> <text>32.0-37.0</text > </observationRange> </referenceRange> </observation > </component> <component> <observation moodCode="EVN" classCode="OBS"> <templateId root="16.840.1.200708.102022.4.2" /> <id nullFlavor="NA" /> <code codeSystem="local" code="MCV" displayName="MEAN CELL VOLUME" /> <statusCode code="completed" /> <effectiveTime value="528926239468" /> <value unit="fl" xsi:type= "PQ" value="87.1" /> <referenceRange> <observationRange> <text>80.0-100.0</text> </observationRange> </ referenceRange> </observation> </component> <component> <observation moodCode="EVN" classCode="OBS"> <templateId root= "07.12.840.1.382663.1022.4.2" /> <id nullFlavor="NA" /> < code codeSystem="local" code="MO#" displayName="MONOCYTE #" /> < statusCode code="completed" /> <effectiveTime value="274170746160" /> <value unit="k/cumm" xsi:type="PQ" value="0.6" /> < referenceRange> <observationRange> <text>0.1-1.0</text> </observationRange> </referenceRange> </observation > </component> <component> <observation moodCode="EVN" classCode="OBS"> <templateId root="840.1.294040.03.15.224.2" /> <id nullFlavor="NA" /> <code codeSystem="local" code="MO% " displayName="MONOCYTE %" /> <statusCode code="completed" /> <effectiveTime value="391877235057" /> <value unit="%" xsi: type="PQ" value="9.7" /> <interpretationCode codeSystem="local" code="* " /> <referenceRange> <observationRange> <text> 4-6</text> </observationRange> </referenceRange> </ observation> </component> <component> <observation moodCode= "EVN" classCode="OBS"> <templateId root="07.12.840.1.881199.1022.4.2 " /> <id nullFlavor="NA" /> <code codeSystem="local" code= "MPVT" displayName="MEAN PLATELET VOLUME" /> <statusCode code= "completed" /> <effectiveTime value="619600070473" /> <value unit="fl" xsi:type="PQ" value="9.0" /> <referenceRange> < observationRange> <text>8.5-10.9</text> </ observationRange> </referenceRange> </observation> </ component> <component> <observation moodCode="EVN" classCode="OBS"> <templateId root="07.12.840.1.521198.10.20.22.4.2" /> <id nullFlavor="NA" /> <code codeSystem="local" code="RBC" displayName=" RED BLOOD CELL" /> <statusCode code="completed" /> < effectiveTime value="920913169308" /> <value unit="m/cumm" xsi:type="PQ " value="4.11" /> <referenceRange> <observationRange> <text>4.00-6.00</text> </observationRange> </ referenceRange> </observation> </component> <component> <observation moodCode="EVN" classCode="OBS"> <templateId root= "07.12.840.1.737831.10..22.4.2" /> <id nullFlavor="NA" /> < code codeSystem="local" code="RDW" displayName="RED CELL DISTRIBUTION WIDTH" /> <statusCode code="completed" /> <effectiveTime value= "300271623463" /> <value unit="%" xsi:type="PQ" value="15.9" /> <interpretationCode codeSystem="local" code="*" /> < referenceRange> <observationRange> <text>11.0-15.6</text > </observationRange> </referenceRange> </observation > </component> <component> <observation moodCode="EVN" classCode="OBS"> <templateId root="07.12.840.1.063020.10.20.22.4.2" /> <id nullFlavor="NA" /> <code codeSystem="local" code="WBC" displayName="WHITE BLOOD CELL" /> <statusCode code="completed" /> <effectiveTime value="180567047866" /> <value unit="k/cumm" xsi: type="PQ" value="5.8" /> <referenceRange> <observationRange > <text>5.0-10.0</text> </observationRange> </ referenceRange> </observation> </component> <component> <observation moodCode="EVN" classCode="OBS"> <templateId root= "2.16.840.1.370383.10.20.22.4.2" /> <id nullFlavor="NA" /> < code codeSystem="local" code="HGBT" displayName="HEMOGLOBIN" /> < statusCode code="completed" /> <effectiveTime value="120478228266" /> <value unit="gm/dL" xsi:type="PQ" value="11.4" /> < interpretationCode codeSystem="local" code="*" /> <referenceRange> <observationRange> <text>12.0-16.0</text> </ observationRange> </referenceRange> </observation> </ component> <component> <observation moodCode="EVN" classCode="OBS"> <templateId root="2.16.840.1.032033.10.20.22.4.2" /> <id nullFlavor="NA" /> <code codeSystem="local" code="HCTT" displayName= "HEMATOCRIT" /> <statusCode code="completed" /> < effectiveTime value="809230033532" /> <value unit="%" xsi:type="PQ " value="35.8" /> <interpretationCode codeSystem="local" code="*" /> <referenceRange> <observationRange> <text>37.0- 47.0</text> </observationRange> </referenceRange> </ observation> </component> <component> <observation moodCode= "EVN" classCode="OBS"> <templateId root="2.16.840.1.455433.10..4.2 " /> <id nullFlavor="NA" /> <code codeSystem="local" code= "NRBC%" displayName="NRBC %" /> <statusCode code="completed" / > <effectiveTime value="421701099872" /> <value unit="/100WBC " xsi:type="PQ" value="0.0" /> <referenceRange> < observationRange> <text>0.0-0.0</text> </ observationRange> </referenceRange> </observation> </ component> <component> <observation moodCode="EVN" classCode="OBS"> <templateId root="216.840.1.342674.03.15.22.4.2" /> <id nullFlavor="NA" /> <code codeSystem="local" code="PLTT" displayName= "PLATELET COUNT" /> <statusCode code="completed" /> < effectiveTime value="311873064166" /> <value unit="k/cumm" xsi:type="PQ " value="265" /> <referenceRange> <observationRange> <text>150-400</text> </observationRange> </ referenceRange> </observation> </component> <component> <observation moodCode="EVN" classCode="OBS"> <templateId root= "216.840.1.697274.10..4.2" /> <id nullFlavor="NA" /> < code codeSystem="local" code="IG%" displayName="IMMATURE GRANULOCYTE %" /> <statusCode code="completed" /> <effectiveTime value= "780546485905" /> <value unit="%" xsi:type="PQ" value="0.2" /> <referenceRange> <observationRange> <text>0.0-0.6< /text> </observationRange> </referenceRange> </ observation> </component> <component> <observation moodCode= "EVN" classCode="OBS"> <templateId root="840.1.534270.10.22.4.2 " /> <id nullFlavor="NA" /> <code codeSystem="local" code="IG# " displayName="IMMATURE GRANULOCYTE #" /> <statusCode code="completed" /> <effectiveTime value="189039710987" /> <value unit="k/cumm " xsi:type="PQ" value="0.01" /> <referenceRange> < observationRange> <text>0.00-0.09</text> </ observationRange> </referenceRange> </observation> </ component> </organizer> </entry> <entry> <organizer moodCode="EVN" classCode="BATTERY"> <templateId root="840.1.396786.03.15.22.4.1" /> <id nullFlavor="NA" /> <code codeSystem="local" code="METABC" displayName="METABOLIC PANEL, COMPREHN" /> <statusCode code="completed" /> <component> <observation moodCode="EVN" classCode="OBS"> < templateId root="840.1.059493.1022.4.2" /> <id nullFlavor="NA " /> <code codeSystem="local" code="K" displayName="POTASSIUM" /> <statusCode code="completed" /> <effectiveTime value="427186350938 " /> <value unit="mmol/L" xsi:type="PQ" value="3.1" /> < interpretationCode codeSystem="local" code="*" /> <referenceRange> <observationRange> <text>3.5-5.3</text> </ observationRange> </referenceRange> </observation> </ component> <component> <observation moodCode="EVN" classCode="OBS"> <templateId root="07.12.840.1.561984.10...4.2" /> <id nullFlavor="NA" /> <code codeSystem="local" code="eGFR" displayName= "EST GFR (MDRD)" /> <statusCode code="completed" /> < effectiveTime value="574804292111" /> <value unit="mL/min" xsi:type="PQ " value="> 60" /> <referenceRange> <observationRange> <text>> 59</text> </observationRange> </ referenceRange> </observation> </component> <component> <observation moodCode="EVN" classCode="OBS"> <templateId root= "840.1.971351.10..4.2" /> <id nullFlavor="NA" /> < code codeSystem="local" code="GAP" displayName="ANION GAP" /> < statusCode code="completed" /> <effectiveTime value="932757435366" /> <value unit="mmol/L" xsi:type="PQ" value="9" /> < referenceRange> <observationRange> <text>5-15</text> </observationRange> </referenceRange> </observation> </component> <component> <observation moodCode="EVN" classCode= "OBS"> <templateId root="07.12.840.1.978231.10...4.2" /> < id nullFlavor="NA" /> <code codeSystem="local" code="eCrCl" displayName ="EST CrCl (CG)" /> <statusCode code="completed" /> < effectiveTime value="540073756746" /> <value unit="mL/min" xsi:type="PQ " value="> 60" /> <referenceRange> <observationRange> <text>> 59</text> </observationRange> </ referenceRange> </observation> </component> <component> <observation moodCode="EVN" classCode="OBS"> <templateId root= "16.840.1.856116.10..4.2" /> <id nullFlavor="NA" /> < code codeSystem="local" code="GLU" displayName="GLUCOSE" /> < statusCode code="completed" /> <effectiveTime value="309842226289" /> <value unit="mg/dL" xsi:type="PQ" value="120" /> < interpretationCode codeSystem="local" code="*" /> <referenceRange> <observationRange> <text>70-99</text> </ observationRange> </referenceRange> </observation> </ component> <component> <observation moodCode="EVN" classCode="OBS"> <templateId root="07.12.840.1.897313.10.4.2" /> <id nullFlavor="NA" /> <code codeSystem="local" code="CA" displayName= "CALCIUM" /> <statusCode code="completed" /> <effectiveTime value="523547062732" /> <value unit="mg/dL" xsi:type="PQ" value="8.7" / > <referenceRange> <observationRange> <text>8.5 -10.1</text> </observationRange> </referenceRange> </ observation> </component> <component> <observation moodCode= "EVN" classCode="OBS"> <templateId root="07.12.840.1.881854.03.15.22.4.2 " /> <id nullFlavor="NA" /> <code codeSystem="local" code="BUN " displayName="BLOOD UREA NITROGEN" /> <statusCode code="completed" /> <effectiveTime value="560518705530" /> <value unit="mg/dL" xsi:type="PQ" value="9" /> <referenceRange> < observationRange> <text>7-20</text> </observationRange> </referenceRange> </observation> </component> < component> <observation moodCode="EVN" classCode="OBS"> < templateId root="2.16.840.1.108474.03.15.22.4.2" /> <id nullFlavor="NA " /> <code codeSystem="local" code="CREAT" displayName="CREATININE" /> <statusCode code="completed" /> <effectiveTime value= "021516876671" /> <value unit="mg/dL" xsi:type="PQ" value="0.7" /> <referenceRange> <observationRange> <text>0.6-1.0< /text> </observationRange> </referenceRange> </ observation> </component> <component> <observation moodCode= "EVN" classCode="OBS"> <templateId root="2.16.840.1.564559...22.4.2 " /> <id nullFlavor="NA" /> <code codeSystem="local" code="NA " displayName="SODIUM" /> <statusCode code="completed" /> < effectiveTime value="149535543102" /> <value unit="mmol/L" xsi:type="PQ " value="141" /> <referenceRange> <observationRange> <text>135-148</text> </observationRange> </ referenceRange> </observation> </component> <component> <observation moodCode="EVN" classCode="OBS"> <templateId root= "16.840.1.714920.10..22.4.2" /> <id nullFlavor="NA" /> < code codeSystem="local" code="CL" displayName="CHLORIDE" /> < statusCode code="completed" /> <effectiveTime value="265355284498" /> <value unit="mmol/L" xsi:type="PQ" value="105" /> < referenceRange> <observationRange> <text>98-110</text> </observationRange> </referenceRange> </observation> </component> <component> <observation moodCode="EVN" classCode ="OBS"> <templateId root="07.12.840.1.604300.10...4.2" /> < id nullFlavor="NA" /> <code codeSystem="local" code="AST" displayName= "AST/SGOT" /> <statusCode code="completed" /> <effectiveTime value="635522777105" /> <value unit="Units/L" xsi:type="PQ" value="44" /> <interpretationCode codeSystem="local" code="*" /> < referenceRange> <observationRange> <text>10-37</text> </observationRange> </referenceRange> </observation> </component> <component> <observation moodCode="EVN" classCode= "OBS"> <templateId root="07.12.840.1.299799.10..22.4.2" /> < id nullFlavor="NA" /> <code codeSystem="local" code="ALT" displayName= "ALT/SGPT" /> <statusCode code="completed" /> <effectiveTime value="262824301822" /> <value unit="Units/L" xsi:type="PQ" value="126 " /> <interpretationCode codeSystem="local" code="*" /> < referenceRange> <observationRange> <text>< 66</text> </observationRange> </referenceRange> </observation > </component> <component> <observation moodCode="EVN" classCode="OBS"> <templateId root="07.12.840.1.087844.10.20.22.4.2" /> <id nullFlavor="NA" /> <code codeSystem="local" code="CO2" displayName="CARBON DIOXIDE" /> <statusCode code="completed" /> <effectiveTime value="697649972077" /> <value unit="mmol/L" xsi:type ="PQ" value="27" /> <referenceRange> <observationRange> <text>21-32</text> </observationRange> </ referenceRange> </observation> </component> <component> <observation moodCode="EVN" classCode="OBS"> <templateId root= "840.1.116607.10.22.4.2" /> <id nullFlavor="NA" /> < code codeSystem="local" code="TP" displayName="TOTAL PROTEIN" /> < statusCode code="completed" /> <effectiveTime value="046923654664" /> <value unit="gm/dL" xsi:type="PQ" value="7.4" /> < referenceRange> <observationRange> <text>6.4-8.2</text> </observationRange> </referenceRange> </observation > </component> <component> <observation moodCode="EVN" classCode="OBS"> <templateId root="840.1.741317.10.20.22.4.2" /> <id nullFlavor="NA" /> <code codeSystem="local" code="ALB" displayName="ALBUMIN" /> <statusCode code="completed" /> < effectiveTime value="066418161039" /> <value unit="gm/dL" xsi:type="PQ " value="3.4" /> <referenceRange> <observationRange> <text>3.4-5.0</text> </observationRange> </ referenceRange> </observation> </component> <component> <observation moodCode="EVN" classCode="OBS"> <templateId root= "2.16.840.1.571419.10..22.4.2" /> <id nullFlavor="NA" /> < code codeSystem="local" code="BILTOT" displayName="BILI TOTAL" /> < statusCode code="completed" /> <effectiveTime value="082406832923" /> <value unit="mg/dL" xsi:type="PQ" value="0.2" /> < referenceRange> <observationRange> <text>0.0-1.0</text> </observationRange> </referenceRange> </observation > </component> <component> <observation moodCode="EVN" classCode="OBS"> <templateId root="2.16.840.1.999247.10..22.4.2" /> <id nullFlavor="NA" /> <code codeSystem="local" code="ALKP" displayName="ALKALINE PHOSPHATASE TOTAL" /> <statusCode code="completed " /> <effectiveTime value="541706177097" /> <value unit="IU/L " xsi:type="PQ" value="235" /> <interpretationCode codeSystem="local" code="*" /> <referenceRange> <observationRange> <text>45-117</text> </observationRange> </referenceRange> </observation> </component> </organizer> </entry> <entry> < organizer moodCode="EVN" classCode="BATTERY"> <templateId root= "16.840.1.326537.10..4.1" /> <id nullFlavor="NA" /> <code codeSystem="local" code="LIP" displayName="LIPASE" /> <statusCode code= "completed" /> <component> <observation moodCode="EVN" classCode= "OBS"> <templateId root="840.1.242881.03.15.22.4.2" /> < id nullFlavor="NA" /> <code codeSystem="local" code="LIP" displayName= "LIPASE" /> <statusCode code="completed" /> <effectiveTime value="873119457726" /> <value unit="Units/L" xsi:type="PQ" value="96" /> <referenceRange> <observationRange> <text>73 -393</text> </observationRange> </referenceRange> </ observation> </component> </organizer> </entry> <entry> <organizer moodCode="EVN" classCode="BATTERY"> <templateId root= "840.1.878732.03.15.22.4.1" /> <id nullFlavor="NA" /> <code codeSystem="local" code="PREG" displayName=" TEST, SERUM" /> < statusCode code="completed" /> <component> <observation moodCode= "EVN" classCode="OBS"> <templateId root="07.12.840.1.424068.10.4.2 " /> <id nullFlavor="NA" /> <code codeSystem="local" code= "PREG" displayName=" TEST, SERUM" /> <statusCode code= "completed" /> <effectiveTime value="150197618003" /> <value unit="" xsi:type="PQ" value="NEGATIVE" /> <referenceRange> < observationRange> <text>NEGATIVE</text> </ observationRange> </referenceRange> </observation> </ component> </organizer> </entry> <entry> <organizer moodCode="EVN" classCode="BATTERY"> <templateId root="216.840.1.071271.10..4.1" /> <id nullFlavor="NA" /> <code codeSystem="local" code="UA" displayName= "URINALYSIS, ROUTINE" /> <statusCode code="completed" /> <component> <observation moodCode="EVN" classCode="OBS"> <templateId root= "216.840.1.253762...4.2" /> <id nullFlavor="NA" /> < code codeSystem="local" code="LEUESU" displayName="UA LEUKOCYTE ESTERASE DIPSTICK" /> <statusCode code="completed" /> <effectiveTime value="" /> <value unit="" xsi:type="PQ" value="1+" /> <interpretationCode codeSystem="local" code="*" /> < referenceRange> <observationRange> <text>NEGATIVE</text > </observationRange> </referenceRange> </observation > </component> <component> <observation moodCode="EVN" classCode="OBS"> <templateId root="16.840.1.676240.03.15.22.4.2" /> <id nullFlavor="NA" /> <code codeSystem="local" code="NITRIU" displayName="UA NITRITE DIPSTICK" /> <statusCode code="completed" /> <effectiveTime value="" /> <value unit="" xsi:type= "PQ" value="NEGATIVE" /> <referenceRange> <observationRange > <text>NEGATIVE</text> </observationRange> </ referenceRange> </observation> </component> <component> <observation moodCode="EVN" classCode="OBS"> <templateId root= "16.840.1.759127.10..4.2" /> <id nullFlavor="NA" /> < code codeSystem="local" code="PROTEIU" displayName="UA PROTEIN DIPSTICK" /> <statusCode code="completed" /> <effectiveTime value= "" /> <value unit="" xsi:type="PQ" value="NEGATIVE" /> <referenceRange> <observationRange> <text>NEGATIVE </text> </observationRange> </referenceRange> </ observation> </component> <component> <observation moodCode= "EVN" classCode="OBS"> <templateId root="07.12.840.1.905433.03.15.22.4.2 " /> <id nullFlavor="NA" /> <code codeSystem="local" code= "DGLUU" displayName="UA GLUCOSE DIPSTICK" /> <statusCode code= "completed" /> <effectiveTime value="" /> <value unit="" xsi:type="PQ" value="NEGATIVE" /> <referenceRange> < observationRange> <text>NEGATIVE</text> </ observationRange> </referenceRange> </observation> </ component> <component> <observation moodCode="EVN" classCode="OBS"> <templateId root="07.12.840.1.891747.10.22.4.2" /> <id nullFlavor="NA" /> <code codeSystem="local" code="KETONU" displayName= "UA KETONE DIPSTICK" /> <statusCode code="completed" /> < effectiveTime value="" /> <value unit="" xsi:type="PQ" value="TRACE" /> <interpretationCode codeSystem="local" code="*" /> <referenceRange> <observationRange> <text> NEGATIVE</text> </observationRange> </referenceRange> </observation> </component> <component> <observation moodCode ="EVN" classCode="OBS"> <templateId root= "07.12.840.1.398755.10.2022.4.2" /> <id nullFlavor="NA" /> < code codeSystem="local" code="UROBILU" displayName="UA UROBILINOGEN DIPSTICK" / > <statusCode code="completed" /> <effectiveTime value= "465670861099" /> <value unit="" xsi:type="PQ" value="2+" /> < interpretationCode codeSystem="local" code="*" /> <referenceRange> <observationRange> <text>NORMAL</text> </ observationRange> </referenceRange> </observation> </ component> <component> <observation moodCode="EVN" classCode="OBS"> <templateId root="840.1.993187.03.15.224.2" /> <id nullFlavor="NA" /> <code codeSystem="local" code="BILU" displayName=" UA BILIRUBIN DIPSTICK" /> <statusCode code="completed" /> < effectiveTime value="158781021010" /> <value unit="" xsi:type="PQ" value="NEGATIVE" /> <referenceRange> <observationRange> <text>NEGATIVE</text> </observationRange> </ referenceRange> </observation> </component> <component> <observation moodCode="EVN" classCode="OBS"> <templateId root= "07.12.840.1.503759.10.2022.4.2" /> <id nullFlavor="NA" /> < code codeSystem="local" code="LON" displayName="UA BLOOD DIPSTICK" /> < statusCode code="completed" /> <effectiveTime value="" /> <value unit="" xsi:type="PQ" value="3+" /> < interpretationCode codeSystem="local" code="*" /> <referenceRange> <observationRange> <text>NEGATIVE</text> </ observationRange> </referenceRange> </observation> </ component> <component> <observation moodCode="EVN" classCode="OBS"> <templateId root="216.840.1.888585.10.20.22.4.2" /> <id nullFlavor="NA" /> <code codeSystem="local" code="SPGRU" displayName= "UA SPECIFIC GRAVITY" /> <statusCode code="completed" /> < effectiveTime value="287791245835" /> <value unit="" xsi:type="PQ" value="1.025" /> <referenceRange> <observationRange> <text>1.015-1.025</text> </observationRange> </ referenceRange> </observation> </component> <component> <observation moodCode="EVN" classCode="OBS"> <templateId root= "16.840.1.762405.10.20.22.4.2" /> <id nullFlavor="NA" /> < code codeSystem="local" code="WILLOW" displayName="UR PH" /> <statusCode code="completed" /> <effectiveTime value="" /> < value unit="" xsi:type="PQ" value="7.0" /> <referenceRange> <observationRange> <text>5.0-7.0</text> </ observationRange> </referenceRange> </observation> </ component> </organizer> </entry> <entry> <organizer moodCode="EVN" classCode="BATTERY"> <templateId root="07.12.840.1.772408.10.22.4.1" /> <id nullFlavor="NA" /> <code codeSystem="local" code="UAMICRO" displayName="UA MICROSCOPIC" /> <statusCode code="completed" /> < component> <observation moodCode="EVN" classCode="OBS"> < templateId root="840.1.826082.03.15.22.4.2" /> <id nullFlavor="NA " /> <code codeSystem="local" code="BACU" displayName="UA BACTERIA" /> <statusCode code="completed" /> <effectiveTime value= "370525901804" /> <value unit="" xsi:type="PQ" value="NEGATIVE" /> <referenceRange> <observationRange> <text>NEGATIVE </text> </observationRange> </referenceRange> </ observation> </component> <component> <observation moodCode= "EVN" classCode="OBS"> <templateId root="840.1.063314.03.15.22.4.2 " /> <id nullFlavor="NA" /> <code codeSystem="local" code= "EPIU" displayName="UA EPITHELIAL CELLS" /> <statusCode code="completed " /> <effectiveTime value="" /> <value unit="epi/ hpf" xsi:type="PQ" value="1+" /> <referenceRange> < observationRange> <text>0 - 1+</text> </observationRange > </referenceRange> </observation> </component> < component> <observation moodCode="EVN" classCode="OBS"> < templateId root="07.12.840.1.651605.22.4.2" /> <id nullFlavor="NA " /> <code codeSystem="local" code="HYALU" displayName="UA HYALINE CAST " /> <statusCode code="completed" /> <effectiveTime value= "571531796711" /> <value unit="cast/lpf" xsi:type="PQ" value="2-5" /> <interpretationCode codeSystem="local" code="*" /> < referenceRange> <observationRange> <text>0 - 1</text> </observationRange> </referenceRange> </observation> </component> <component> <observation moodCode="EVN" classCode= "OBS"> <templateId root="216.840.1.624333.10..22.4.2" /> < id nullFlavor="NA" /> <code codeSystem="local" code="RBCU" displayName= "UA RBC" /> <statusCode code="completed" /> <effectiveTime value="" /> <value unit="rbc/hpf" xsi:type="PQ" value="> 100" /> <interpretationCode codeSystem="local" code="*" /> < referenceRange> <observationRange> <text>0 - 3</text> </observationRange> </referenceRange> </observation> </component> <component> <observation moodCode="EVN" classCode= "OBS"> <templateId root="16.840.1.404122.10..22.4.2" /> < id nullFlavor="NA" /> <code codeSystem="local" code="WBCU" displayName= "UA WBC" /> <statusCode code="completed" /> <effectiveTime value="" /> <value unit="wbc/hpf" xsi:type="PQ" value="20- 50" /> <interpretationCode codeSystem="local" code="*" /> < referenceRange> <observationRange> <text>0 - 5</text> </observationRange> </referenceRange> </observation> </component> </organizer> </entry> <entry> <organizer moodCode="EVN " classCode="BATTERY"> <templateId root="2.16.840.1.771135.10..22.4.1" / > <id nullFlavor="NA" /> <code codeSystem="local" code="DRUGAB" displayName="UR DRUGS OF ABUSE SCREEN" /> <statusCode code="completed" /> <component> <observation moodCode="EVN" classCode="OBS"> < templateId root="2.16.840.1.695420.10..22.4.2" /> <id nullFlavor="NA " /> <code codeSystem="local" code="AMPHU" displayName="UR AMPHETAMINES SCREEN" /> <statusCode code="completed" /> < effectiveTime value="569565129906" /> <value unit="" xsi:type="PQ" value="POS (>1000 ng/mL)" /> <interpretationCode codeSystem="local " code="*" /> <referenceRange> <observationRange> <text>NEGATIVE</text> </observationRange> </ referenceRange> </observation> </component> <component> <observation moodCode="EVN" classCode="OBS"> <templateId root= "2.16.840.1.066793.10...4.2" /> <id nullFlavor="NA" /> < code codeSystem="local" code="BARBU" displayName="UR BARBITURATE SCREEN" /> <statusCode code="completed" /> <effectiveTime value= "950825615071" /> <value unit="" xsi:type="PQ" value="NEG (< 200 ng /mL)" /> <referenceRange> <observationRange> < text>NEGATIVE</text> </observationRange> </referenceRange> </observation> </component> <component> <observation moodCode="EVN" classCode="OBS"> <templateId root= "216.840.1.906590.10..22.4.2" /> <id nullFlavor="NA" /> < code codeSystem="local" code="DAUCOMMENT" displayName="DRUGS OF ABUSE SCREEN COMMENT" /> <statusCode code="completed" /> <effectiveTime value="072978124807" /> <value unit="" xsi:type="PQ" value="" /> <referenceRange> <observationRange> <text /> </observationRange> </referenceRange> </observation> </component> <component> <observation moodCode="EVN" classCode= "OBS"> <templateId root="216.840.1.602779.10..4.2" /> < id nullFlavor="NA" /> <code codeSystem="local" code="OPIU" displayName= "UR OPIATES SCREEN" /> <statusCode code="completed" /> < effectiveTime value="628071349096" /> <value unit="" xsi:type="PQ" value="POS (> 300 ng/mL)" /> <interpretationCode codeSystem="local " code="*" /> <referenceRange> <observationRange> <text>NEGATIVE</text> </observationRange> </ referenceRange> </observation> </component> <component> <observation moodCode="EVN" classCode="OBS"> <templateId root= "216.840.1.280383.10..4.2" /> <id nullFlavor="NA" /> < code codeSystem="local" code="PCPU" displayName="UR PHENCYCLIDINE (PCP) SCREEN" /> <statusCode code="completed" /> <effectiveTime value= "238542571208" /> <value unit="" xsi:type="PQ" value="NEG (< 25 ng /mL)" /> <referenceRange> <observationRange> < text>NEGATIVE</text> </observationRange> </referenceRange> </observation> </component> <component> <observation moodCode="EVN" classCode="OBS"> <templateId root= "2.16.840.1.815217.10..22.4.2" /> <id nullFlavor="NA" /> < code codeSystem="local" code="THCU" displayName="UR CANNABINOIDS (THC) SCREEN" / > <statusCode code="completed" /> <effectiveTime value= "967811150431" /> <value unit="" xsi:type="PQ" value="NEG (< 50 ng /mL)" /> <referenceRange> <observationRange> < text>NEGATIVE</text> </observationRange> </referenceRange> </observation> </component> <component> <observation moodCode="EVN" classCode="OBS"> <templateId root= "16.840.1.149681.10..4.2" /> <id nullFlavor="NA" /> < code codeSystem="local" code="COCAU" displayName="UR COCAINE METABOLITE SCREEN" /> <statusCode code="completed" /> <effectiveTime value= "545444573220" /> <value unit="" xsi:type="PQ" value="NEG (< 300 ng /mL)" /> <referenceRange> <observationRange> < text>NEGATIVE</text> </observationRange> </referenceRange> </observation> </component> <component> <observation moodCode="EVN" classCode="OBS"> <templateId root= "216.840.1.103761.10.20.22.4.2" /> <id nullFlavor="NA" /> < code codeSystem="local" code="METHU" displayName="UR METHADONE SCREEN" /> <statusCode code="completed" /> <effectiveTime value="908607306041 " /> <value unit="" xsi:type="PQ" value="NEG (< 300 ng/mL)" /> <referenceRange> <observationRange> <text>NEGATIVE </text> </observationRange> </referenceRange> </ observation> </component> <component> <observation moodCode= "EVN" classCode="OBS"> <templateId root="07.12.840.1.659652.10.4.2 " /> <id nullFlavor="NA" /> <code codeSystem="local" code= "BENZU" displayName="UR BENZODIAZEPINE SCREEN" /> <statusCode code= "completed" /> <effectiveTime value="132578875730" /> <value unit="" xsi:type="PQ" value="POS (> 200 ng/mL)" /> < interpretationCode codeSystem="local" code="*" /> <referenceRange> <observationRange> <text>NEGATIVE</text> </ observationRange> </referenceRange> </observation> </ component> </organizer> </entry> <entry> <organizer moodCode="EVN" classCode="BATTERY"> <templateId root="840.1.293886.03.15.22.4.1" /> <id nullFlavor="NA" /> <code codeSystem="local" code="UC" displayName= "URINE CULTURE" /> <statusCode code="completed" /> <component> <observation moodCode="EVN" classCode="OBS"> <templateId root= "07.12.840.1.248270.1022.4.2" /> <id nullFlavor="NA" /> < code codeSystem="local" code="MB" displayName="Microbiology" /> < statusCode code="completed" /> <effectiveTime value="939196677214" /> <value xsi:type="ST" value="<pre><b>URINE CULTURE</b> See BelowURINE CULTURE(F) Red Date/Time: 12/19/2017 04:50 Matty Date/Time: 12/21/2017 09:52SOURCE: URINESPEC DESC: CLEAN CATCHTREATMENT OF ASYMPTOMATIC BACTERIURIA IS NOT USUALLYCLINICALLY INDICATED.MIXED POS AND NEG?MIXED GRAM POSITIVE AND NEGATIVE BACTERIAGROUP B STREP?.INCLUDING [facility] [place] [place] [place] [address]</pre>" /> <referenceRange> <observationRange> <text /> </observationRange> </referenceRange> </observation> </component> </organizer> </entry> <entry> < organizer moodCode="EVN" classCode="BATTERY"> <templateId root= "2.16.840.1.602335.10.20.22.4.1" /> <id nullFlavor="NA" /> <code codeSystem="local" code="WET" displayName="WET MOUNT" /> <statusCode code= "completed" /> <component> <observation moodCode="EVN" classCode= "OBS"> <templateId root="2.16.840.1.052932.10.20.22.4.2" /> < id nullFlavor="NA" /> <code codeSystem="local" code="MB" displayName= "Microbiology" /> <statusCode code="completed" /> < effectiveTime value="514522258661" /> <value xsi:type="ST" value="<pre> <b>WET MOUNT</b> See BelowWET MOUNT(F) Red Date/Time: 2017 05:41 Matty Date/Time: 12/19/2017 06:10SOURCE : CERVIXSPEC DESC: CLUE CELLSNO CLUE CELLS SEENOTHERRED BLOOD CELLSTRICHOMONASNO TRICHOMONAS SEENWBCFEW WBCYEASTNO [facility]AST [facility] [place] [address]</pre>" /> <referenceRange> <observationRange> <text /> </observationRange> </referenceRange> </observation> </component> </organizer > </entry> <entry> <organizer moodCode="EVN" classCode="BATTERY"> < templateId root="2.16.840.1.525382.10.20.22.4.1" /> <id nullFlavor="NA" /> <code codeSystem="local" code="GRAM" displayName="GRAM STAIN - CHLAMYDIA DNA BY PCR" /> <statusCode code="completed" /> <component> < observation moodCode="EVN" classCode="OBS"> <templateId root= "2.16.840.1.009433.10.20.22.4.2" /> <id nullFlavor="NA" /> < code codeSystem="local" code="MB" displayName="Microbiology" /> < statusCode code="completed" /> <effectiveTime value="963596640352" /> <value xsi:type="ST" value="<pre><b>GRAM STAIN - CHLAMYDIA DNA BY PCR - GONORRHOEA DNA BY PCR</b> See BelowGRAM STAIN(F) Red Date/ Time: 12/19/2017 05:41 Matty Date/Time: 12/19/2017 09:33SOURCE: CERVIXSPEC DESC: GRAM STAINFEW NEUTROPHILSFEW MIXED BACTERIAL FLORANO ORGANISMS SEEN RESEMBLING NEISSERIA GONORRHOE[address] [address]Aiu BelowCHLAMYDIA DNA BY PCR(F) Red Date/ Time: 12/19/2017 05:41 Matty Date/Time: 12/19/2017 09:33SOURCE: CERVIXSPEC DESC: [address] [address]Gcc BelowGONORRHOEA DNA BY PCR(F) Red Date/Time : 12/19/2017 05:41 Matty Date/Time: 12/19/2017 09: 33SOURCE: CERVIXSPEC DESC: [facility] [facility] [place] [address]</pre>" /> <referenceRange> < observationRange> <text /> </observationRange> </referenceRange> </observation> </component> </organizer> </ entry> <entry> <organizer moodCode="EVN" classCode="BATTERY"> < templateId root="216.840.1.894353.10..22.4.1" /> <id nullFlavor="NA" /> <code codeSystem="local" code="PREGU" displayName="UR TEST" /> <statusCode code="completed" /> <component> <observation moodCode="EVN" classCode="OBS"> <templateId root= "216.840.1.991510.10..22.4.2" /> <id nullFlavor="NA" /> < code codeSystem="local" code="PREGU" displayName="UR TEST" /> <statusCode code="completed" /> <effectiveTime value="810769789814" / > <value unit="" xsi:type="PQ" value="NEGATIVE" /> < referenceRange> <observationRange> <text>NEGATIVE</text > </observationRange> </referenceRange> </observation > </component> </organizer> </entry> <entry> <organizer moodCode= "EVN" classCode="BATTERY"> <templateId root="216.840.1.696322.10..22.4.1 " /> <id nullFlavor="NA" /> <code codeSystem="local" code="UANRC" displayName="URINALYSIS, NO REFLEX CULTURE" /> <statusCode code="completed " /> <component> <observation moodCode="EVN" classCode="OBS"> <templateId root="216.840.1.002641.03.15.22.4.2" /> <id nullFlavor ="NA" /> <code codeSystem="local" code="LEUESU" displayName="UA LEUKOCYTE ESTERASE DIPSTICK" /> <statusCode code="completed" /> <effectiveTime value="751106160466" /> <value unit="" xsi:type="PQ" value="1+" /> <interpretationCode codeSystem="local" code="*" /> <referenceRange> <observationRange> <text>NEGATIVE</ text> </observationRange> </referenceRange> </ observation> </component> <component> <observation moodCode= "EVN" classCode="OBS"> <templateId root="840.1.542329.03.15.22.4.2 " /> <id nullFlavor="NA" /> <code codeSystem="local" code= "NITRIU" displayName="UA NITRITE DIPSTICK" /> <statusCode code= "completed" /> <effectiveTime value="" /> <value unit="" xsi:type="PQ" value="POSITIVE" /> <interpretationCode codeSystem="local" code="*" /> <referenceRange> < observationRange> <text>NEGATIVE</text> </ observationRange> </referenceRange> </observation> </ component> <component> <observation moodCode="EVN" classCode="OBS"> <templateId root="07.12.840.1.605459.03.15.22.4.2" /> <id nullFlavor="NA" /> <code codeSystem="local" code="PROTEIU" displayName= "UA PROTEIN DIPSTICK" /> <statusCode code="completed" /> < effectiveTime value="957808480404" /> <value unit="" xsi:type="PQ" value="NEGATIVE" /> <referenceRange> <observationRange> <text>NEGATIVE</text> </observationRange> </ referenceRange> </observation> </component> <component> <observation moodCode="EVN" classCode="OBS"> <templateId root= "216.840.1.317715.03.15.22.4.2" /> <id nullFlavor="NA" /> < code codeSystem="local" code="DGLUU" displayName="UA GLUCOSE DIPSTICK" /> <statusCode code="completed" /> <effectiveTime value=" " /> <value unit="" xsi:type="PQ" value="NEGATIVE" /> < referenceRange> <observationRange> <text>NEGATIVE</text > </observationRange> </referenceRange> </observation > </component> <component> <observation moodCode="EVN" classCode="OBS"> <templateId root="07.12.840.1.720353.03.15.22.4.2" /> <id nullFlavor="NA" /> <code codeSystem="local" code="KETONU" displayName="UA KETONE DIPSTICK" /> <statusCode code="completed" /> <effectiveTime value="" /> <value unit="" xsi:type= "PQ" value="NEGATIVE" /> <referenceRange> <observationRange > <text>NEGATIVE</text> </observationRange> </ referenceRange> </observation> </component> <component> <observation moodCode="EVN" classCode="OBS"> <templateId root= "16.840.1.449870.10.4.2" /> <id nullFlavor="NA" /> < code codeSystem="local" code="UROBILU" displayName="UA UROBILINOGEN DIPSTICK" / > <statusCode code="completed" /> <effectiveTime value= "" /> <value unit="" xsi:type="PQ" value="NORMAL" /> <referenceRange> <observationRange> <text>NORMAL</ text> </observationRange> </referenceRange> </ observation> </component> <component> <observation moodCode= "EVN" classCode="OBS"> <templateId root="07.12.840.1.109669.10...4.2 " /> <id nullFlavor="NA" /> <code codeSystem="local" code= "BILU" displayName="UA BILIRUBIN DIPSTICK" /> <statusCode code= "completed" /> <effectiveTime value="736726953984" /> <value unit="" xsi:type="PQ" value="NEGATIVE" /> <referenceRange> < observationRange> <text>NEGATIVE</text> </ observationRange> </referenceRange> </observation> </ component> <component> <observation moodCode="EVN" classCode="OBS"> <templateId root="07.12.840.1.197063.10..4.2" /> <id nullFlavor="NA" /> <code codeSystem="local" code="LON" displayName="UA BLOOD DIPSTICK" /> <statusCode code="completed" /> < effectiveTime value="162360150842" /> <value unit="" xsi:type="PQ" value="3+" /> <interpretationCode codeSystem="local" code="*" /> <referenceRange> <observationRange> <text>NEGATIVE</ text> </observationRange> </referenceRange> </ observation> </component> <component> <observation moodCode= "EVN" classCode="OBS"> <templateId root="07.12.840.1.057781.10.20.22.4.2 " /> <id nullFlavor="NA" /> <code codeSystem="local" code= "SPGRU" displayName="UA SPECIFIC GRAVITY" /> <statusCode code= "completed" /> <effectiveTime value="055659562951" /> <value unit="" xsi:type="PQ" value="1.017" /> <referenceRange> < observationRange> <text>1.015-1.025</text> </ observationRange> </referenceRange> </observation> </ component> <component> <observation moodCode="EVN" classCode="OBS"> <templateId root="07.12.840.1.079665.10.4.2" /> <id nullFlavor="NA" /> <code codeSystem="local" code="WILLOW" displayName="UR PH" /> <statusCode code="completed" /> <effectiveTime value= "715894138883" /> <value unit="" xsi:type="PQ" value="5.5" /> <referenceRange> <observationRange> <text>5.0-7.0</text > </observationRange> </referenceRange> </observation > </component> </organizer> </entry> <entry> <organizer moodCode= "EVN" classCode="BATTERY"> <templateId root="07.12.840.1.517206.03.15.22.4.1 " /> <id nullFlavor="NA" /> <code codeSystem="local" code="UAMICRO" displayName="UA MICROSCOPIC" /> <statusCode code="completed" /> < component> <observation moodCode="EVN" classCode="OBS"> < templateId root="07.12.840.1.044056.03.15.22.4.2" /> <id nullFlavor="NA " /> <code codeSystem="local" code="BACU" displayName="UA BACTERIA" /> <statusCode code="completed" /> <effectiveTime value= "" /> <value unit="" xsi:type="PQ" value="3+" /> < interpretationCode codeSystem="local" code="*" /> <referenceRange> <observationRange> <text>NEGATIVE</text> </ observationRange> </referenceRange> </observation> </ component> <component> <observation moodCode="EVN" classCode="OBS"> <templateId root="216.840.1.224662.03.15.22.4.2" /> <id nullFlavor="NA" /> <code codeSystem="local" code="EPIU" displayName=" UA EPITHELIAL CELLS" /> <statusCode code="completed" /> < effectiveTime value="218427906669" /> <value unit="epi/hpf" xsi:type= "PQ" value="5+" /> <interpretationCode codeSystem="local" code="*" /> <referenceRange> <observationRange> <text>0 - 1 +</text> </observationRange> </referenceRange> </ observation> </component> <component> <observation moodCode= "EVN" classCode="OBS"> <templateId root="216.840.1.934041.03.15.224.2 " /> <id nullFlavor="NA" /> <code codeSystem="local" code= "RBCU" displayName="UA RBC" /> <statusCode code="completed" /> <effectiveTime value="687340705724" /> <value unit="rbc/hpf" xsi:type ="PQ" value="20-50" /> <interpretationCode codeSystem="local" code="*" /> <referenceRange> <observationRange> <text>0 - 3</text> </observationRange> </referenceRange> </ observation> </component> <component> <observation moodCode= "EVN" classCode="OBS"> <templateId root="216.840.1.549025.03.15.22.4.2 " /> <id nullFlavor="NA" /> <code codeSystem="local" code= "UAVOL" displayName="UA VOLUME FOR EXAM" /> <statusCode code="completed " /> <effectiveTime value="956011237656" /> <value unit="mL" xsi:type="PQ" value="12.0" /> <referenceRange> < observationRange> <text>(12mL STD)</text> </ observationRange> </referenceRange> </observation> </ component> <component> <observation moodCode="EVN" classCode="OBS"> <templateId root="07.12.840.1.144889.03.15.22.4.2" /> <id nullFlavor="NA" /> <code codeSystem="local" code="WBCU" displayName=" UA WBC" /> <statusCode code="completed" /> <effectiveTime value="564317073281" /> <value unit="wbc/hpf" xsi:type="PQ" value="10- 20" /> <interpretationCode codeSystem="local" code="*" /> < referenceRange> <observationRange> <text>0 - 5</text> </observationRange> </referenceRange> </observation> </component> </organizer> </entry> <entry> <organizer moodCode="EVN " classCode="BATTERY"> <templateId root="07.12.840.1.788455.03.15.22.4.1" / > <id nullFlavor="NA" /> <code codeSystem="local" code="CBCD" displayName="CBC W/DIFF" /> <statusCode code="completed" /> <component > <observation moodCode="EVN" classCode="OBS"> <templateId root= "07.12.840.1.917173..4.2" /> <id nullFlavor="NA" /> < code codeSystem="local" code="BA#" displayName="BASOPHIL #" /> < statusCode code="completed" /> <effectiveTime value="155581987240" /> <value unit="k/cumm" xsi:type="PQ" value="0.1" /> < referenceRange> <observationRange> <text>0.0-0.2</text> </observationRange> </referenceRange> </observation > </component> <component> <observation moodCode="EVN" classCode="OBS"> <templateId root="2.16.840.1.019747...4.2" /> <id nullFlavor="NA" /> <code codeSystem="local" code="BA% " displayName="BASOPHIL %" /> <statusCode code="completed" /> <effectiveTime value="997523707329" /> <value unit="%" xsi: type="PQ" value="1.0" /> <referenceRange> <observationRange > <text>0-1</text> </observationRange> </ referenceRange> </observation> </component> <component> <observation moodCode="EVN" classCode="OBS"> <templateId root= "2.16.840.1.448263.03.15.22.4.2" /> <id nullFlavor="NA" /> < code codeSystem="local" code="EO#" displayName="EOSINOPHIL #" /> < statusCode code="completed" /> <effectiveTime value="032573630377" /> <value unit="k/cumm" xsi:type="PQ" value="0.1" /> < referenceRange> <observationRange> <text>0.1-0.5</text> </observationRange> </referenceRange> </observation > </component> <component> <observation moodCode="EVN" classCode="OBS"> <templateId root="16.840.1.208676.10..4.2" /> <id nullFlavor="NA" /> <code codeSystem="local" code="EO% " displayName="EOSINOPHIL %" /> <statusCode code="completed" /> <effectiveTime value="964180418033" /> <value unit="%" xsi: type="PQ" value="2.0" /> <referenceRange> <observationRange > <text>2-4</text> </observationRange> </ referenceRange> </observation> </component> <component> <observation moodCode="EVN" classCode="OBS"> <templateId root= "07.12.840.1.009146.03.15.22.4.2" /> <id nullFlavor="NA" /> < code codeSystem="local" code="GR#" displayName="GRANULOCYTE #" /> < statusCode code="completed" /> <effectiveTime value="701447986052" /> <value unit="k/cumm" xsi:type="PQ" value="2.8" /> < referenceRange> <observationRange> <text>2.0-9.0</text> </observationRange> </referenceRange> </observation > </component> <component> <observation moodCode="EVN" classCode="OBS"> <templateId root="07.12.840.1.714451..22.4.2" /> <id nullFlavor="NA" /> <code codeSystem="local" code="GR% " displayName="GRANULOCYTE %" /> <statusCode code="completed" /> <effectiveTime value="198972264552" /> <value unit="%" xsi: type="PQ" value="46.9" /> <interpretationCode codeSystem="local" code= "*" /> <referenceRange> <observationRange> < text>50-75</text> </observationRange> </referenceRange> </observation> </component> <component> <observation moodCode="EVN" classCode="OBS"> <templateId root= "216.840.1.112838.03.15.22.4.2" /> <id nullFlavor="NA" /> < code codeSystem="local" code="LY#" displayName="LYMPHOCYTE #" /> < statusCode code="completed" /> <effectiveTime value="998455618717" /> <value unit="k/cumm" xsi:type="PQ" value="2.4" /> < referenceRange> <observationRange> <text>1.0-4.0</text> </observationRange> </referenceRange> </observation > </component> <component> <observation moodCode="EVN" classCode="OBS"> <templateId root="216.840.1.716886.03.15.22.4.2" /> <id nullFlavor="NA" /> <code codeSystem="local" code="LY% " displayName="LYMPHOCYTE %" /> <statusCode code="completed" /> <effectiveTime value="321689309826" /> <value unit="%" xsi: type="PQ" value="40.6" /> <interpretationCode codeSystem="local" code= "*" /> <referenceRange> <observationRange> < text>20-30</text> </observationRange> </referenceRange> </observation> </component> <component> <observation moodCode="EVN" classCode="OBS"> <templateId root= "216.840.1.302815.10.20.22.4.2" /> <id nullFlavor="NA" /> < code codeSystem="local" code="MCH" displayName="MEAN CELL HGB" /> < statusCode code="completed" /> <effectiveTime value="364621939783" /> <value unit="pg" xsi:type="PQ" value="26.5" /> < interpretationCode codeSystem="local" code="*" /> <referenceRange> <observationRange> <text>27.0-33.0</text> </ observationRange> </referenceRange> </observation> </ component> <component> <observation moodCode="EVN" classCode="OBS"> <templateId root="07.12.840.1.247323.03.15.224.2" /> <id nullFlavor="NA" /> <code codeSystem="local" code="MCHC" displayName= "MEAN CELL HGB CONCENTRATION" /> <statusCode code="completed" /> <effectiveTime value="530535850244" /> <value unit="g/dL" xsi:type= "PQ" value="30.0" /> <interpretationCode codeSystem="local" code="*" / > <referenceRange> <observationRange> <text> 32.0-37.0</text> </observationRange> </referenceRange> </observation> </component> <component> <observation moodCode="EVN" classCode="OBS"> <templateId root= "07.12.840.1.580720.10.4.2" /> <id nullFlavor="NA" /> < code codeSystem="local" code="MCV" displayName="MEAN CELL VOLUME" /> < statusCode code="completed" /> <effectiveTime value="690110936952" /> <value unit="fl" xsi:type="PQ" value="88.3" /> <referenceRange > <observationRange> <text>80.0-100.0</text> </observationRange> </referenceRange> </observation> </ component> <component> <observation moodCode="EVN" classCode="OBS"> <templateId root="07.12.840.1.811562.10.20.22.4.2" /> <id nullFlavor="NA" /> <code codeSystem="local" code="MO#" displayName= "MONOCYTE #" /> <statusCode code="completed" /> < effectiveTime value="352303813185" /> <value unit="k/cumm" xsi:type="PQ " value="0.6" /> <referenceRange> <observationRange> <text>0.1-1.0</text> </observationRange> </ referenceRange> </observation> </component> <component> <observation moodCode="EVN" classCode="OBS"> <templateId root= "07.12.840.1.484731.10..22.4.2" /> <id nullFlavor="NA" /> < code codeSystem="local" code="MO%" displayName="MONOCYTE %" /> <statusCode code="completed" /> <effectiveTime value="609263728604" /> <value unit="%" xsi:type="PQ" value="9.3" /> < interpretationCode codeSystem="local" code="*" /> <referenceRange> <observationRange> <text>4-6</text> </ observationRange> </referenceRange> </observation> </ component> <component> <observation moodCode="EVN" classCode="OBS"> <templateId root="07.12.840.1.917914.10.20.22.4.2" /> <id nullFlavor="NA" /> <code codeSystem="local" code="MPVT" displayName= "MEAN PLATELET VOLUME" /> <statusCode code="completed" /> < effectiveTime value="092458152572" /> <value unit="fl" xsi:type="PQ" value="9.1" /> <referenceRange> <observationRange> <text>8.5-10.9</text> </observationRange> </ referenceRange> </observation> </component> <component> <observation moodCode="EVN" classCode="OBS"> <templateId root= "216.840.1.721199.10.20.22.4.2" /> <id nullFlavor="NA" /> < code codeSystem="local" code="RBC" displayName="RED BLOOD CELL" /> < statusCode code="completed" /> <effectiveTime value="107335102019" /> <value unit="m/cumm" xsi:type="PQ" value="3.93" /> < interpretationCode codeSystem="local" code="*" /> <referenceRange> <observationRange> <text>4.00-6.00</text> </ observationRange> </referenceRange> </observation> </ component> <component> <observation moodCode="EVN" classCode="OBS"> <templateId root="2.16.840.1.942595.10.20.22.4.2" /> <id nullFlavor="NA" /> <code codeSystem="local" code="RDW" displayName=" RED CELL DISTRIBUTION WIDTH" /> <statusCode code="completed" /> <effectiveTime value="685852351714" /> <value unit="%" xsi:type= "PQ" value="13.8" /> <referenceRange> <observationRange> <text>11.0-15.6</text> </observationRange> </ referenceRange> </observation> </component> <component> <observation moodCode="EVN" classCode="OBS"> <templateId root= "07.12.840.1.893381.10.20.22.4.2" /> <id nullFlavor="NA" /> < code codeSystem="local" code="WBC" displayName="WHITE BLOOD CELL" /> < statusCode code="completed" /> <effectiveTime value="" /> <value unit="k/cumm" xsi:type="PQ" value="6.0" /> < referenceRange> <observationRange> <text>5.0-10.0</text > </observationRange> </referenceRange> </observation > </component> <component> <observation moodCode="EVN" classCode="OBS"> <templateId root="840.1.621968.1022.4.2" /> <id nullFlavor="NA" /> <code codeSystem="local" code="HGBT" displayName="HEMOGLOBIN" /> <statusCode code="completed" /> < effectiveTime value="277430570349" /> <value unit="gm/dL" xsi:type="PQ " value="10.4" /> <interpretationCode codeSystem="local" code="*" /> <referenceRange> <observationRange> <text>12.0- 16.0</text> </observationRange> </referenceRange> </ observation> </component> <component> <observation moodCode= "EVN" classCode="OBS"> <templateId root="840.1.200746.10.20.22.4.2 " /> <id nullFlavor="NA" /> <code codeSystem="local" code= "HCTT" displayName="HEMATOCRIT" /> <statusCode code="completed" /> <effectiveTime value="176491273982" /> <value unit="%" xsi: type="PQ" value="34.7" /> <interpretationCode codeSystem="local" code= "*" /> <referenceRange> <observationRange> < text>37.0-47.0</text> </observationRange> </referenceRange> </observation> </component> <component> <observation moodCode="EVN" classCode="OBS"> <templateId root= "216.840.1.915108.10.22.4.2" /> <id nullFlavor="NA" /> < code codeSystem="local" code="NRBC%" displayName="NRBC %" /> < statusCode code="completed" /> <effectiveTime value="784310671032" /> <value unit="/100WBC" xsi:type="PQ" value="0.0" /> < referenceRange> <observationRange> <text>0.0-0.0</text> </observationRange> </referenceRange> </observation > </component> <component> <observation moodCode="EVN" classCode="OBS"> <templateId root="07.12.840.1.982839.10.4.2" /> <id nullFlavor="NA" /> <code codeSystem="local" code="PLTT" displayName="PLATELET COUNT" /> <statusCode code="completed" /> <effectiveTime value="009511640998" /> <value unit="k/cumm" xsi:type ="PQ" value="217" /> <referenceRange> <observationRange> <text>150-400</text> </observationRange> </ referenceRange> </observation> </component> <component> <observation moodCode="EVN" classCode="OBS"> <templateId root= "16.840.1.360533.10.22.4.2" /> <id nullFlavor="NA" /> < code codeSystem="local" code="IG%" displayName="IMMATURE GRANULOCYTE %" /> <statusCode code="completed" /> <effectiveTime value= "919385772068" /> <value unit="%" xsi:type="PQ" value="0.2" /> <referenceRange> <observationRange> <text>0.0-0.6< /text> </observationRange> </referenceRange> </ observation> </component> <component> <observation moodCode= "EVN" classCode="OBS"> <templateId root="840.1.085465.03.15.22.4.2 " /> <id nullFlavor="NA" /> <code codeSystem="local" code="IG# " displayName="IMMATURE GRANULOCYTE #" /> <statusCode code="completed" /> <effectiveTime value="211938078960" /> <value unit="k/cumm " xsi:type="PQ" value="0.01" /> <referenceRange> < observationRange> <text>0.00-0.09</text> </ observationRange> </referenceRange> </observation> </ component> </organizer> </entry> <entry> <organizer moodCode="EVN" classCode="BATTERY"> <templateId root="840.1.492814.03.15.22.4.1" /> <id nullFlavor="NA" /> <code codeSystem="local" code="METABC" displayName="METABOLIC PANEL, COMPREHN" /> <statusCode code="completed" /> <component> <observation moodCode="EVN" classCode="OBS"> < templateId root="07.12.840.1.977107.22.4.2" /> <id nullFlavor="NA " /> <code codeSystem="local" code="K" displayName="POTASSIUM" /> <statusCode code="completed" /> <effectiveTime value="896834719995 " /> <value unit="mmol/L" xsi:type="PQ" value="3.4" /> < interpretationCode codeSystem="local" code="*" /> <referenceRange> <observationRange> <text>3.5-5.3</text> </ observationRange> </referenceRange> </observation> </ component> <component> <observation moodCode="EVN" classCode="OBS"> <templateId root="16.840.1.026482.10.20.22.4.2" /> <id nullFlavor="NA" /> <code codeSystem="local" code="eGFR" displayName= "EST GFR (MDRD)" /> <statusCode code="completed" /> < effectiveTime value="034970889401" /> <value unit="mL/min" xsi:type="PQ " value="> 60" /> <referenceRange> <observationRange> <text>> 59</text> </observationRange> </ referenceRange> </observation> </component> <component> <observation moodCode="EVN" classCode="OBS"> <templateId root= "07.12.840.1.450199.10.20.22.4.2" /> <id nullFlavor="NA" /> < code codeSystem="local" code="GAP" displayName="ANION GAP" /> < statusCode code="completed" /> <effectiveTime value="458074571448" /> <value unit="mmol/L" xsi:type="PQ" value="12" /> < referenceRange> <observationRange> <text>5-15</text> </observationRange> </referenceRange> </observation> </component> <component> <observation moodCode="EVN" classCode= "OBS"> <templateId root="2.16.840.1.060947.10.22.4.2" /> < id nullFlavor="NA" /> <code codeSystem="local" code="eCrCl" displayName ="EST CrCl (CG)" /> <statusCode code="completed" /> < effectiveTime value="" /> <value unit="mL/min" xsi:type="PQ " value="> 60" /> <referenceRange> <observationRange> <text>> 59</text> </observationRange> </ referenceRange> </observation> </component> <component> <observation moodCode="EVN" classCode="OBS"> <templateId root= "16.840.1.729504.03.15.22.4.2" /> <id nullFlavor="NA" /> < code codeSystem="local" code="GLU" displayName="GLUCOSE" /> < statusCode code="completed" /> <effectiveTime value="761713726189" /> <value unit="mg/dL" xsi:type="PQ" value="87" /> < referenceRange> <observationRange> <text>70-99</text> </observationRange> </referenceRange> </observation> </component> <component> <observation moodCode="EVN" classCode= "OBS"> <templateId root="07.12.840.1.831568.10.4.2" /> < id nullFlavor="NA" /> <code codeSystem="local" code="CA" displayName= "CALCIUM" /> <statusCode code="completed" /> <effectiveTime value="227036701838" /> <value unit="mg/dL" xsi:type="PQ" value="8.0" / > <interpretationCode codeSystem="local" code="*" /> < referenceRange> <observationRange> <text>8.5-10.1</text > </observationRange> </referenceRange> </observation > </component> <component> <observation moodCode="EVN" classCode="OBS"> <templateId root="216.840.1.800552.1022.4.2" /> <id nullFlavor="NA" /> <code codeSystem="local" code="BUN" displayName="BLOOD UREA NITROGEN" /> <statusCode code="completed" /> <effectiveTime value="052574069914" /> <value unit="mg/dL" xsi: type="PQ" value="10" /> <referenceRange> <observationRange> <text>7-20</text> </observationRange> </ referenceRange> </observation> </component> <component> <observation moodCode="EVN" classCode="OBS"> <templateId root= "216.840.1.447127.03.15.22.4.2" /> <id nullFlavor="NA" /> < code codeSystem="local" code="CREAT" displayName="CREATININE" /> < statusCode code="completed" /> <effectiveTime value="364080934334" /> <value unit="mg/dL" xsi:type="PQ" value="0.6" /> < referenceRange> <observationRange> <text>0.6-1.0</text> </observationRange> </referenceRange> </observation > </component> <component> <observation moodCode="EVN" classCode="OBS"> <templateId root="216.840.1.881741.03.15.22.4.2" /> <id nullFlavor="NA" /> <code codeSystem="local" code="NA" displayName="SODIUM" /> <statusCode code="completed" /> < effectiveTime value="758683648587" /> <value unit="mmol/L" xsi:type="PQ " value="145" /> <referenceRange> <observationRange> <text>135-148</text> </observationRange> </ referenceRange> </observation> </component> <component> <observation moodCode="EVN" classCode="OBS"> <templateId root= "216.840.1.780678.10.20.22.4.2" /> <id nullFlavor="NA" /> < code codeSystem="local" code="CL" displayName="CHLORIDE" /> < statusCode code="completed" /> <effectiveTime value="887753623023" /> <value unit="mmol/L" xsi:type="PQ" value="110" /> < referenceRange> <observationRange> <text>98-110</text> </observationRange> </referenceRange> </observation> </component> <component> <observation moodCode="EVN" classCode ="OBS"> <templateId root="[id number]..22.4.2" /> < id nullFlavor="NA" /> <code codeSystem="local" code="AST" displayName= "AST/SGOT" /> <statusCode code="completed" /> <effectiveTime value="519764264283" /> <value unit="Units/L" xsi:type="PQ" value="8" / > <interpretationCode codeSystem="local" code="*" /> < referenceRange> <observationRange> <text>10-37</text> </observationRange> </referenceRange> </observation> </component> <component> <observation moodCode="EVN" classCode= "OBS"> <templateId root="[id number]" /> < id nullFlavor="NA" /> <code codeSystem="local" code="ALT" displayName= "ALT/SGPT" /> <statusCode code="completed" /> <effectiveTime value="121850242530" /> <value unit="Units/L" xsi:type="PQ" value="12" /> <referenceRange> <observationRange> <text>& lt; 66</text> </observationRange> </referenceRange> < /observation> </component> <component> <observation moodCode= "EVN" classCode="OBS"> <templateId root="[id number] " /> <id nullFlavor="NA" /> <code codeSystem="local" code="CO2 " displayName="CARBON DIOXIDE" /> <statusCode code="completed" /> <effectiveTime value="771670688826" /> <value unit="mmol/L" xsi: type="PQ" value="23" /> <referenceRange> <observationRange> <text>21-32</text> </observationRange> </ referenceRange> </observation> </component> <component> <observation moodCode="EVN" classCode="OBS"> <templateId root= "[id number].2" /> <id nullFlavor="NA" /> < code codeSystem="local" code="TP" displayName="TOTAL PROTEIN" /> < statusCode code="completed" /> <effectiveTime value="717058459565" /> <value unit="gm/dL" xsi:type="PQ" value="6.0" /> < interpretationCode codeSystem="local" code="*" /> <referenceRange> <observationRange> <text>6.4-8.2</text> </ observationRange> </referenceRange> </observation> </ component> <component> <observation moodCode="EVN" classCode="OBS"> <templateId root="16.840.1.008466.10..22.4.2" /> <id nullFlavor="NA" /> <code codeSystem="local" code="ALB" displayName= "ALBUMIN" /> <statusCode code="completed" /> <effectiveTime value="985584462942" /> <value unit="gm/dL" xsi:type="PQ" value="2.9" / > <interpretationCode codeSystem="local" code="*" /> < referenceRange> <observationRange> <text>3.4-5.0</text> </observationRange> </referenceRange> </observation > </component> <component> <observation moodCode="EVN" classCode="OBS"> <templateId root="16.840.1.567254...4.2" /> <id nullFlavor="NA" /> <code codeSystem="local" code="BILTOT" displayName="BILI TOTAL" /> <statusCode code="completed" /> < effectiveTime value="296107355576" /> <value unit="mg/dL" xsi:type="PQ " value="0.1" /> <referenceRange> <observationRange> <text>0.0-1.0</text> </observationRange> </ referenceRange> </observation> </component> <component> <observation moodCode="EVN" classCode="OBS"> <templateId root= "16.840.1.559828.10..22.4.2" /> <id nullFlavor="NA" /> < code codeSystem="local" code="ALKP" displayName="ALKALINE PHOSPHATASE TOTAL" /> <statusCode code="completed" /> <effectiveTime value= "901892917265" /> <value unit="IU/L" xsi:type="PQ" value="70" /> <referenceRange> <observationRange> <text>45-117</ text> </observationRange> </referenceRange> </ observation> </component> </organizer> </entry></section> Encounters ACCT No. Visit Date/Time Discharge Status Pt. Type Provider Facility Loc./Unit Complaint [id number] 06/18/2018 11:55:00 06/18/2018 23:59:59 CLS Outpatient [id number] 06/27/2018 13:55:00 ACT Outpatient [facility] [id number] 06/14/2013 14:27:00 06/19/2013 10:43:00 DIS Inpatient Alesia PIERRE, Dorie [address] [id number] 06/13/2013 17:25:00 06/13/2013 20:40:00 DIS Emergency Wanda PIERRE, Hill Sebastian [facility] [id number] 12/22/2012 23:31:00 12/23/2012 03:05:00 DIS Emergency George Sierra MD [facility] [id number] 04/30/2012 07:01:00 04/30/2012 07:50:00 DIS Emergency Ralph Amaya DO [facility] [id number] 01/22/2017 10:47:00 01/22/2017 12:48:00 DIS Emergency Ortega PIERRE, Everardo Dickey [facility] E.ED [id number] 06/28/2018 08:33:00 06/28/2018 10:20:00 DIS Outpatient KARIE ADAMS [id number] 02/18/2018 22:07:00 02/18/2018 22:39:00 DIS Emergency Stephen Ortiz [facility] ED CP. LLQ pain [id number] 12/17/2017 11:58:00 12/17/2017 12:58:00 DIS Emergency Rodriguez James [facility] ED jaw swelling [id number] 02/24/2017 19:29:00 02/24/2017 23:59:59 CLS Emergency Rader Jacob [facility] ED vag bleed [id number] 01/08/2017 05:07:00 01/08/2017 08:54:00 DIS Emergency Angel Stephen Cannon [facility] ED lower back pain, vomiting [id number] 09/12/2016 18:09:00 09/12/2016 20:46:00 DIS Emergency Sierra Howard [facility] ED L Flank pain [id number] 07/05/2016 23:41:00 07/06/2016 03:39:00 DIS Emergency Nadyadiop Curt [facility] ED R flank pain [id number] 02/26/2016 07:17:00 02/26/2016 11:52:00 DIS Emergency Amaya Daniel [facility] ED abscess above pelvic bone, fever [id number] 11/24/2015 20:54:00 11/25/2015 01:09:00 DIS Emergency Annette Boudreaux [facility] ED left flank pain [id number] 01/16/2015 12:20:00 01/17/2015 12:10:00 DIS Outpatient Fletcher PIERRE, Alvarez Beasley [facility] J6E Chest pain r/o ACS [id number] 06/12/2014 18:40:00 06/13/2014 00:37:00 DIS Emergency Sugar Alvarado [facility] ED poss kidney stone [id number] 05/14/2014 17:44:00 05/14/2014 23:33:00 DIS Emergency Annmarie PIERRE, Morro Sebastian [facility] ED SOB, BACK PAIN [id number] 12/18/2017 05:20:42 Document Registration [id number] 01/09/2017 05:17:12 Document Registration [id number] 09/13/2016 05:15:56 Document Registration [id number] 07/06/2016 05:17:33 Document Registration [id number] 02/27/2016 05:15:43 Document Registration [id number] 11/25/2015 05:19:28 Document Registration [id number] 06/23/2015 05:16:11 Document Registration [id number] 06/22/2015 05:16:36 Document Registration [id number] 06/21/2015 05:16:53 Document Registration [id number] 06/16/2015 05:17:20 Document Registration [id number] 06/15/2015 15:09:00 ACT Inpatient [facility] on Jose A VILLALOBOSDavis J5W orbital cellulitis on the right [id number] 03/16/2015 13:37:04 Document Registration [id number] 03/16/2015 11:02:45 Document Registration [id number] 03/16/2015 10:56:21 Document Registration [id number] 03/16/2015 10:45:25 Document Registration [id number] 03/16/2015 10:40:17 Document Registration [id number] 03/16/2015 09:44:11 Document Registration [id number] 03/16/2015 09:20:09 Document Registration [id number] 08/31/2014 10:43:00 Document Registration [id number] 07/16/2014 09:06:00 Document Registration [id number] 09/12/2016 18:09:00 Document Registration [id number] 07/05/2016 23:41:00 Document Registration [id number] 02/26/2016 07:17:00 Document Registration [id number] 11/24/2015 20:54:00 Document Registration [id number] 01/31/2018 09:28:00 01/31/2018 10:38:00 DIS Emergency Brendan PIERRE, Shashi [facility] W.MANJIT [id number] 12/19/2017 03:01:00 12/19/2017 07:00:00 DIS Emergency Lucio PIERRE, Sidney Oshea [facility].EDS [id number] 11/17/2017 08:48:00 11/17/2017 10:06:00 DIS Emergency Dora PIERRE, Bridger Dickey [facility] W.EDS [id number] 07/01/2017 14:37:00 07/02/2017 20:37:00 DIS Inpatient Vale PIERRE, Teja George [facility] W.7TN [id number] 06/30/2017 22:06:00 07/01/2017 01:20:00 DIS Emergency Allegra [facility] [id number] 04/29/2017 10:53:00 04/29/2017 13:15:00 DIS Emergency Mehdi PIERRE, Bryan [facility].QUIANA [id number] 04/10/2017 02:08:00 04/10/2017 04:04:00 DIS Emergency Tasha PIERRE, Reny [facility].QUIANA [id number] 03/28/2017 05:02:00 03/28/2017 06:52:00 [id number] 02/24/2017 20:18:00 02/24/2017 23:00:00 DIS Emergency Nile Beltre DO [facility].MANJIT [id number] 01/31/2017 18:48:00 01/31/2017 22:03:00 DIS Emergency Josiah PIERRE, [facility] W.MANJIT [id number] 2016 18:06:00 10/26/2016 18:25:00 DIS Inpatient Geovanna PIERRE, [facility] W.3CE [id number] 07/15/2016 15:12:00 07/15/2016 16:40:00 DIS Emergency [id number] 06/17/2016 20:58:00 06/18/2016 00:15:00 DIS Emergency Renato Glynn DO [facility] W.MANJIT [id number] 12/26/2015 00:41:00 12/26/2015 02:13:00 DIS Emergency [facility] [id number] 04/16/2015 02:21:00 04/17/2015 13:08:00 DIS Inpatient Silvano PIERRE, Harish [facility] W.7TS [id number] 04/15/2015 13:37:00 04/15/2015 16:14:00 DIS Emergency [facility]iah [id number] 02/15/2015 20:56:00 02/16/2015 01:11:00 DIS Emergency Patricia [facility] [id number] 01/30/2015 19:48:00 01/30/2015 22:00:00 DIS Emergency Kunal [facility] [id number] 01/08/2015 05:06:00 01/08/2015 05:30:00 DIS Emergency Ofelia PIERRE, [facility].EDW [id number] 10/19/2014 10:42:00 10/21/2014 17:15:00 DIS Inpatient Hayder TRAVIS[address] [id number] 06/30/2014 03:04:00 06/30/2014 05:54:00 DIS Emergency Allegra PIERRE, [facility] [id number] 04/14/2014 15:57:00 04/14/2014 18:46:00 DIS Emergency Renard [id number] 02/21/2014 06:05:00 02/26/2014 16:05:00 DIS Inpatient Anamaria PIERRE, Kendra [facility] W.10TN [id number] 01/26/2014 19:31:00 01/26/2014 20:36:00 DIS Emergency Cassidy PIERRE, Joyce [facility].EDN [id number] 11/10/2013 00:39:00 11/10/2013 01:50:00 DIS Emergency Darryl PIERRE, Stephen Wooten [facility].EDW [id number] 07/08/2013 20:36:00 07/08/2013 22:30:00 DIS [facility] [id number] 07/08/2013 19:35:00 07/08/2013 20:00:00 DIS Emergency [facility] [id number] 05/28/2013 12:42:00 05/28/2013 16:25:00 DIS Emergency Renard TRAVIS, Renato [facility] W.EDN [id number] 11/21/2012 02:51:00 11/21/2012 03:23:00 DIS Emergency Garfield PIERRE, Dae Chi [facility].EDW [id number] 11/06/2012 15:55:00 11/06/2012 20:12:00 DIS Emergency Elizabeth PIERRE, Ritesh Beasley [facility] [id number] 09/07/2012 22:26:00 09/08/2012 00:05:00 DIS Emergency Allegra PIERRE, [facility].EDN [id number] 07/03/2012 11:10:00 07/03/2012 16:35:00 DIS Emergency Gerardo PIERRE, [facility].EDN [id number] 03/06/2012 17:05:00 03/06/2012 20:02:00 DIS Emergency Patricia PIERRE, Purnima [facility] [id number] 01/28/2012 18:46:00 01/30/2012 17:00:00 DIS Inpatient Lucio PIERRE, Sidney [facility] W.E [id number] 11/27/2011 03:12:00 Inpatient
[2018-06-29] MEDS ORDERED: PROMETHAZINE INJ 25 MG/ML (PHENERGAN) AMP IVP ONE (19:30)
--- NOTE | 2018-06-29 20:10 | NUR ---
LATANYA MARRUFO admitted to room 433-1, with an admitting diagnosis of ABSCESS AND CELLULITIS TO THE LEFT AXILLA, on 06/29/18 from [place] via , accompanied by STAFF.LATANYA MARRUFO introduced to surroundings, call light, bed controls, phone, TV, temperature control, lights, meal times, smoking policy, visitor policy, side rail policy, bathrooms and showers. Patient Rights given to patient in the handbook. LATANYA MARRUFO verbalizes understanding that [facility] is not responsible for the loss or damage to any personal effects or valuables that are kept in the patients posession during their hospitalization.
[2018-06-29 20:15] VITALS: BP 91/49
--- NOTE | 2018-06-29 20:15 | NUR ---
THIS RN CONTACTED DR. PERKINS IN REGARDS TO THE PT'S DIET. ORDERS RECEIVED FOR REGULAR DIET.
[2018-06-29] MEDS ORDERED: CATHETER FLUSH 10 ML SYR IV PRN (20:30)
[2018-06-29] MEDS: NS IV 1000 ML 1,000 ML IV SCH (20:30)
[2018-06-29] MEDS ORDERED: VANCOMYCIN 1 GM/NS 250 ML IVPB IV ONE ×2 (20:30)
[2018-06-29] MEDS: CATHETER FLUSH 10 ML SYR IV SCH (21:04)
[2018-06-29] MEDS: fentaNYL INJECTION 100 MCG/2 ML AMP IV PRN (22:10)
[2018-06-29 23:36] VITALS: BP 94/56
[2018-06-30] MEDS: fentaNYL INJECTION 100 MCG/2 ML AMP IV PRN ×3 (00:28→06:53)
[2018-06-30] MEDS: PIPERACILLIN/TAZO 4.5 GM/NS 100 ML IV SCH ×6 (00:29→18:01)
[2018-06-30 03:54] VITALS: BP 93/58
[2018-06-30] MEDS: CATHETER FLUSH 10 ML SYR IV SCH ×3 (05:26→21:37)
[2018-06-30] MEDS: ONDANSETRON 4 MG/2 ML (SDV) Z0FRAN IV PRN ×2 (06:12→20:08)
[2018-06-30 06:22] LABS: BASOPHILS # (AUTO) 0.1 10^3/uL (0.0-0.1); BASOPHILS % (AUTO) 0 % (0-10); EOSINOPHILS # (AUTO) 0.3 10^3/uL (0.0-0.3); EOSINOPHILS % (AUTO) 3 % (0-10); HEMATOCRIT 27 % (35-52); HEMOGLOBIN 7.5 G/DL (11.5-16.0); LYMPHOCYTES # (AUTO) 1.8 X 10^3 (1.0-4.0); LYMPHOCYTES % (AUTO) 14 % (12-44); MEAN CORPUSCULAR HEMOGLOBIN 21 PG (25-34); MEAN CORPUSCULAR HGB CONC 28 G/DL (32-36); MEAN CORPUSCULAR VOLUME 74 FL (80-99); MEAN PLATELET VOLUME 9.4 FL (7.4-10.4); MONOCYTES # (AUTO) 1.2 X 10^3 (0.0-1.0); MONOCYTES % (AUTO) 10 % (0-12); NEUTROPHILS # (AUTO) 9.1 X 10^3 (1.8-7.8); NEUTROPHILS % (AUTO) 73 % (42-75); PLATELET COUNT 291 10^3/uL (130-400); RED CELL DISTRIBUTION WIDTH 17.3 % (10.0-14.5); WHITE BLOOD COUNT 12.5 10^3/uL (4.3-11.0)
[2018-06-30 06:49] LABS: ALANINE AMINOTRANSFERASE 11 U/L (0-55); ALBUMIN 3.2 GM/DL (3.2-4.5); ALKALINE PHOSPHATASE 48 U/L (40-136); BILIRUBIN,TOTAL 0.2 MG/DL (0.1-1.0); BUN/CREATININE RATIO 14; CARBON DIOXIDE 19 MMOL/L (21-32); CHLORIDE 108 MMOL/L (98-107); CREATININE SERUM 0.64 MG/DL (0.60-1.30); GFR ESTIMATED > 60; GLUCOSE 115 MG/DL (70-105); POTASSIUM 4.5 MMOL/L (3.6-5.0); SODIUM 136 MMOL/L (135-145); TOTAL PROTEIN 5.4 GM/DL (6.4-8.2)
[2018-06-30] MEDS ORDERED: FLU QUADRIvalent (5+ YOA) 2018-2019 (AFLURIA) 0.5 ML IM ONE (07:30)
--- NOTE | 2018-06-30 07:33 | NUR ---
VANCOMYCIN DOSING SCR 0.64; CRCL ~ 108; VANC 15 MG/KG X 60 KG ~ 1 GM Q12H CHECK TROUGH LEVEL 07/01 0700 HOLD DOSE AND CONTACT PHARMACY IF LEVEL IS GREATER THAN 20 OR LESS THAN 10
[2018-06-30] MEDS: VANCOMYCIN 1 GM/NS 250 ML IVPB IV SCH ×4 (07:45→20:09)
--- NOTE | 2018-06-30 07:50 | NUR ---
TYKENOL 1000MG PO FOR AXILLA PAIN LEFT. Addendum: 06/30/18 at 0924 by JUAN F MCKEON RN TYLENOL
[2018-06-30] MEDS: ACETAMINOPHEN 500 MG TAB (TYLENOL) PO PRN ×2 (07:51→20:08)
[2018-06-30 08:00] VITALS: BP 86/54
--- NOTE | 2018-06-30 08:35 | History & Physical-Hospitalist ---
BENITA PERKINS DO 06/30/18 0835: History of Present Illness HPI/Chief Complaint CC: Left axilla abscess s/p I&D at [facility] now with residual spreading cellulitis HPI: This is a 42-year-old white female who had been enrolled in the [facility] program in [place] for drug abuse recovery who presented after failed oral antibiotics and small incision and drainage at [facility]. She is currently on Zosyn and vancomycin and Dr. Castillo tends to perform an in-depth incision and drainage today. Patient is holding her arm up because the abscess is too painful to lay her arm close to her body. 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 Urine drug screen will be sent. Patient had a history of chronic anemia for the past 6 years has received 21 units of transfusion since that time and she reports a photolithographer stated that her red blood cells just do not mature. Dr. Aviles will see her in consultation. Source: patient Exam Limitations: no limitations Date Seen 06/30/18 Time Seen by a Provider: 08:45 Attending Physician eBnita Perkins DO PCP No,Local Physician Referring Physician Date of Admission Jun 29, 2018 at 18:53 Home Medications & Allergies Home Medications Reviewed patient Home Medication Reconciliation performed by pharmacy medication reconciliations gate technician and/or nursing. Patients Allergies have been reviewed. 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) Alcohol Use: Denies Use Recreational Drug Use: Yes (reports former meth, weed use; declines current) Smoking Status: Never a Smoker Recent Foreign Travel: No Contact w/other who traveled: No Recent Hopitalizations: No Recent Infectious Disease Expo: No Seasonal Allergies Seasonal Allergies: No Past Medical History Surgeries: Appendectomy, Gallbladder, Tubal Ligation Neurological: Seizure Disorder, Stroke (X2 6 years ago) Female Reproductive Disorders: Denies History of Blood Disorders: Yes (anemia, multiple blood transfusions 21 units in past 6 years) Family History Reviewed Nursing Family Hx Review of Systems Constitutional: see HPI, chills, fever EENTM: no symptoms reported Respiratory: no symptoms reported Cardiovascular: no symptoms reported Gastrointestinal: no symptoms reported, nausea, vomiting Genitourinary: no symptoms reported Musculoskeletal: no symptoms reported Skin: change in color, lumps, rash (left axilla) Physical Exam Physical Exam Vital Signs Vital Signs - First Documented 06/29/18 17:04 Temp 98.1 Pulse 108 Resp 19 B/P (MAP) 108/87 (94) Pulse Ox 100 O2 Delivery Room Air Capillary Refill : Less Than 3 SecondsLess Than 3 Seconds Height, Weight, BMI Height: 5'3.00" Weight: 159lbs. 12.8oz. 72.769890fj; 28.3 BMI Method:Stated General Appearance: No Apparent Distress, WD/WN, Chronically ill Eyes: Bilateral Eye Normal Inspection, Bilateral Eye PERRL HEENT: PERRL/EOMI, TMs Normal, Normal ENT Inspection, Pharynx Normal Neck: Full Range of Motion, Normal Inspection, Non Tender, Supple, Carotid Bruit Respiratory: Chest Non Tender, Lungs Clear, Normal Breath Sounds, No Accessory Muscle Use, No Respiratory Distress Cardiovascular: Regular Rate, Rhythm, No Edema, No Gallop, No JVD, No Murmur, Normal Peripheral Pulses Gastrointestinal: Normal Bowel Sounds, No Organomegaly, No Pulsatile Mass, Non Tender, Soft Back: Normal Inspection, No CVA Tenderness, No Vertebral Tenderness Extremity: Normal Capillary Refill, Normal Inspection, Normal Range of Motion, Non Tender, No Calf Tenderness, No Pedal Edema Neurologic/Psychiatric: Alert, Oriented x3, No Motor/Sensory Deficits, Normal Mood/Affect Skin: Normal Color, Warm/Dry, Erythema, Other (Significant area of induration spreading from L axilla about 5 cm distal down arm, also warm, erythematous,and tender. Erythema extends two thirds of way distally down arm. Two small punctures from previous I&D visible, no longer open or draining. ) Lymphatic: No Adenopathy Results Results/Procedures Labs Laboratory Tests 06/29/18 17:20 06/30/18 06:05 06/30/18 06:25 Patient resulted labs reviewed. 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 6 yrs ago Plan: Consult Dr Aviles Check iron studies Needs I&D Admission Status: Observation Diagnosis/Problems Diagnosis/Problems (1) Abscess Status: Acute (2) Cellulitis Status: Acute Qualifiers: Site of cellulitis of extremity: axilla Laterality: left (3) Anemia Status: Chronic Qualifiers: Anemia type: unspecified type Qualified Codes: D64.9 - Anemia, unspecified (4) Drug abuse Status: Chronic (5) Fever Status: Acute Qualifiers: Fever type: unspecified Qualified Codes: R50.9 - Fever, unspecified (6) Nausea & vomiting Status: Acute Qualifiers: Vomiting type: unspecified Vomiting Intractability: unspecified Qualified Codes: R11.2 - Nausea with vomiting, unspecified (7) Old cerebrovascular accident (CVA) without late effect Status: Chronic Clinical Quality Measures DVT/VTE Risk/Contraindication: Risk Factor Score Per Nursin RFS Level Per Nursing on Admit: 2=Moderate ROMEO CORDERO MEDICAL STUDENT 06/30/18 0919: History of Present Illness HPI/Chief Complaint CC: L axilla redness, pain, swelling HPI: This is 42 yo white female who presented to the ER yesterday afternoon with worsening L axillary swelling, pain, and redness. Four days ago the patient was seen at [facility] and was prescribed Bactrim. Since the area continued to worsen the pt went to [facility] ER two days ago. She received an I& D of the L axilla and a single injection of Rocephin. The pt came to the [facility] ER yesterday afternoon because the redness had spread down her elbow, well past the pen marilu drawn two days ago in [place]. She endorses fever of 101F at home as well as n/v. Denies CP, SOB, or abdominal pain. 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 She is currently at the [facility] in [place]. She states she has been clean from meth for about 5 months. Her PCP in [place] is Dr. Raphael, although she has been seen by them for about 1 year. 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[employer]) Alcohol Use: Denies Use Recreational Drug Use: Yes (reports former meth, weed use; declines current) Smoking Status: Never a Smoker Recent Foreign Travel: No Contact w/other who traveled: No Recent Hopitalizations: No Recent Infectious Disease Expo: No Social History 06/30/18 pt is at addiction treatment center in [place] Seasonal Allergies Seasonal Allergies: No Past Medical History Surgeries: Appendectomy, Gallbladder, Tubal Ligation Neurological: Stroke (X2 6 years ago) : No Female Reproductive Disorders: Denies History of Blood Disorders: Yes (anemia, multiple blood transfusions) Family History Reviewed Nursing Family Hx Heart Disease (mother) Review of Systems Constitutional: chills, fever EENTM: no symptoms reported Respiratory: No short of breath Cardiovascular: No chest pain Gastrointestinal: No abdominal pain; nausea, vomiting Genitourinary: no symptoms reported Musculoskeletal: no symptoms reported Skin: change in color, lumps Psychiatric/Neurological: No Symptoms Reported Physical Exam Physical Exam General Appearance: No Apparent Distress, WD/WN Eyes: Bilateral Eye PERRL, Bilateral Eye EOMI HEENT: Moist Mucous Membranes, Pale Conjunctivae (L), Pale Conjunctivae (R) Neck: Full Range of Motion, Normal Inspection, Non Tender, Supple Respiratory: Chest Non Tender, Lungs Clear, Normal Breath Sounds, No Accessory Muscle Use, No Respiratory Distress Cardiovascular: Regular Rate, Rhythm, No Edema, No Gallop, No Murmur, Normal Peripheral Pulses Gastrointestinal: Normal Bowel Sounds, No Organomegaly, No Pulsatile Mass, Non Tender, Soft Extremity: Normal Capillary Refill, Normal Range of Motion, No Calf Tenderness , No Pedal Edema Neurologic/Psychiatric: Alert, Oriented x3, No Motor/Sensory Deficits, Normal Mood/Affect Skin: Warm/Dry, Erythema, Other (Significant area of induration spreading from L axilla about 5 cm distal down arm, also warm, erythematous,and tender. Erythema extends two thirds of way distally down arm. Two small punctures from previous I&D visible, no longer open or draining. ) Lymphatic: Axilla Node Tender (L) Assessment/Plan Admission Diagnosis Admission diagnosis: L axillary abscess Admission Status: Observation Assessment and Plan Assessment: L axillary abscess/cellulitis, failed Bactrim and initial I&D "lancing" Leukocytosis Anemia, chronic Hx of meth abuse Hx of CVA 6 years ago Plan: Consult surgery for repeat I&D Continue IV Vancomycin and Zosyn, wound cultures pending Monitor CBC and CMP Drug screen Iron studies and consult Hematology Switch pain control from Fentanyl to Toradol exclusively to reduce risk of addiction/relapse and reduce inflammation BENITA PERKINS DO Jun 30, 2018 08:35 ROMEO CORDERO MEDICAL STUDENT Jun 30, 2018 09:19
[2018-06-30] MEDS ORDERED: KETOROLAC 30 MG/ML VIAL ONE (09:03)
[2018-06-30] MEDS: KETOROLAC 30 MG/ML VIAL IVP PRN ×2 (09:13→19:10)
--- NOTE | 2018-06-30 09:15 | NUR ---
NPO FOR OR.
--- NOTE | 2018-06-30 09:15 | NUR ---
DR. WEBSTER AND MADDIE HERE TO SEE PT. ORDERS REC'D. CONSENT FOR OR DONE. OR SCHEDULED. MRSA NASAL SWABS DONE. AWAITING SPECIMEN FOR URINE AND DRUG SCREEN.
--- NOTE | 2018-06-30 09:16 | NUR ---
TORADOL 30MG IV FOR PAIN.
--- NOTE | 2018-06-30 09:28 | NUR ---
UA TO LAB FOR PREG TEST AND DRUG SCREEN.
[2018-06-30] MEDS ORDERED: MULT-974 PO (09:32)
[2018-06-30] MEDS ORDERED: CYAN50TA3 PO (09:32)
[2018-06-30] MEDS ORDERED: ASCO500C17 PO (09:33)
[2018-06-30] MEDS ORDERED: FOLI0.4T2 PO (09:33)
--- NOTE | 2018-06-30 09:34 | NUR ---
Spoke to patent she stated she does not take anything prescribed just the otc medication stated.
[2018-06-30 09:38] LABS: HCG,QUALITATIVE URINE NEGATIVE (NEGATIVE)
[2018-06-30 09:47] LABS: AMPHETAMINE SCREEN, URINE NEGATIVE (NEGATIVE); BARBITURATE SCREEN URINE NEGATIVE (NEGATIVE); BENZODIAZEPINES SCREEN URINE NEGATIVE (NEGATIVE); CANNABINOID SCREEN, URINE NEGATIVE (NEGATIVE); COCAINE SCREEN URINE NEGATIVE (NEGATIVE); METHADONE STAT NEGATIVE (NEGATIVE); METHAMPHETAMINE SCREEN URINE S NEGATIVE (NEGATIVE); OPIATE SCREEN URINE NEGATIVE (NEGATIVE); OXYCODONE STAT NEGATIVE (NEGATIVE); PROPOXYPHENE STAT NEGATIVE (NEGATIVE); TRICYCLIC ANTIDEPRESSANTS SCRE NEGATIVE (NEGATIVE)
--- NOTE | 2018-06-30 09:48 | Consultation ---
History of Present Illness History of Present Illness Patient Consulted On(jaylin/time) 06/30/18 09:40 Time Seen by Provider: 08:58 History of Present Illness Surgery asked to consult regarding Left upper arm abscess. HPI per ED: 42-year-old female who presents to the emergency room with complaints of left axilla swelling and redness. She was seen and evaluated at [facility] 3 days ago and was started on Bactrim. Yesterday she was seen at [place] emergency room where she had an I&D of the left axilla and was given a shot of Rocephin IM. They marked to the area with a skin marker and when she woke up today the redness had spread outside of the skin marker and a red streak started to go down her arm. The abscess is still open and draining at this time. Cultures were sent. She's also had fevers as high as 101 today and nausea and vomiting. Timing/Duration: other (3 days ago) Associated Symptoms: change in skin texture, fever When I spoke to pt this am she thinks it is getting worse, pain has not improved. She rates pain as 6 out of 10; continuous and dull. She does not have nausea or vomiting today; she actually ate breakfast without difficulty. 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 1/2 months) Smoking Status: Never a Smoker Recent Foreign Travel: No Contact w/Someone Who Travel: No Recent Infectious Disease Expo: No Recent Hopitalizations: No Seasonal Allergies Seasonal Allergies: No Surgeries History of Surgeries: Yes Surgeries: Appendectomy, Gallbladder, Tubal Ligation Respiratory History of Respiratory Disorde: No Cardiovascular History of Cardiac Disorders: No Neurological History of Neurological Disord: Yes Neurological Disorders: Stroke (X2 6 years ago) Reproductive System : No Female Reproductive Disorders: Denies Gastrointestinal History of Gastrointestinal Di: No Musculoskeletal History of Musculoskeletal Dis: No Endocrine History of Endocrine Disorders: No HEENT History of HEENT Disorders: No Cancer History of Cancer: No Psychosocial History of Psychiatric Problem: No Integumentary History of Skin or Integumenta: No Blood Transfusions History of Blood Disorders: Yes (anemia, multiple blood transfusions) Family Medical History Significant Family History: Heart Disease (mother had CABG) Review of Systems-General Constitutional: chills, diaphoresis, malaise EENTM: No blurred vision, No double vision, No mouth swelling, No epistaxis, No throat swelling Respiratory: No cough, No dyspnea on exertion, No hemoptysis Cardiovascular: No chest pain, No edema Gastrointestinal: No abdominal pain, No constipation, No diarrhea Genitourinary: No dysuria, No frequency, No hematuria Musculoskeletal: joint pain, joint swelling Skin: change in color, lesions Psychiatric/Neurological: Denies Anxiety, Denies Depressed, Denies Pre- Existing Deficit, Denies Seizure, Denies Tremors Other pt denies abnormal bleeding or bruising Physical Exam-General Problems Physical Exam Vital Signs Vital Signs - First Documented 06/29/18 17:04 Temp 98.1 Pulse 108 Resp 19 B/P (MAP) 108/87 (94) Pulse Ox 100 O2 Delivery Room Air Capillary Refill : Less Than 3 SecondsLess Than 3 Seconds General Appearance: WD/WN, no apparent distress Eyes: Bilateral Eye PERRL, Bilateral Eye EOMI HEENT: pharynx normal; No scleral icterus (R), No scleral icterus (L); other ( poor dentition) Neck: non-tender, supple Respiratory: chest non-tender, lungs clear, normal breath sounds, no respiratory distress, no accessory muscle use Cardiovascular: regular rate, rhythm, no edema, no murmur Gastrointestinal: normal bowel sounds, non tender, soft, no organomegaly, no pulsatile mass Back: no CVA tenderness, no vertebral tenderness Extremities: no pedal edema, no calf tenderness, normal capillary refill, other (Left upper arm and axilla, erythema and firm mass in arm, 2 spots of attempted drainage in axilla, small purulent fluid coming out of one) 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, no motor/sensory deficits, alert, normal mood/affect, oriented x 3 Skin: normal color, warm/dry Lymphatic: no adenopathy (neck, supraclavicular or groin) Data Review Labs Laboratory Tests 06/29/18 17:20: White Blood Count 16.1H, Red Blood Count 3.87L, Hemoglobin 8.0L, Hematocrit 28L , Mean Corpuscular Volume 72L, Mean Corpuscular Hemoglobin 21L, Mean Corpuscular Hemoglobin Concent 29L, Red Cell Distribution Width 17.4H, Platelet Count 341, Mean Platelet Volume 9.2, Neutrophils (%) (Auto) 78H, Lymphocytes (% ) (Auto) 13, Monocytes (%) (Auto) 8, Eosinophils (%) (Auto) 2, Basophils (%) ( Auto) 0, Neutrophils # (Auto) 12.5H, Lymphocytes # (Auto) 2.0, Monocytes # (Auto ) 1.3H, Eosinophils # (Auto) 0.3, Basophils # (Auto) 0.0, Neutrophils % (Manual ) 79, Lymphocytes % (Manual) 15, Monocytes % (Manual) 6, Eosinophils % (Manual) 0, Basophils % (Manual) 0, Band Neutrophils 0, Hypochromasia MODERATE, Anisocytosis MODERATE, Microcytosis MODERATE, Spherocytes SLIGHT, Prothrombin Time 12.6, INR Comment 0.9, Activated Partial Thromboplast Time 29, Sodium Level 137, Potassium Level 4.3, Chloride Level 105, Carbon Dioxide Level 22, Anion Gap 10, Blood Urea Nitrogen 12, Creatinine 0.72, Estimat Glomerular Filtration Rate > 60, BUN/Creatinine Ratio 17, Glucose Level 86, Lactic Acid Level 1.10, Calcium Level 9.0, Corrected Calcium 8.8, Total Bilirubin 0.1, Aspartate Amino Transf (AST/SGOT) 21, Alanine Aminotransferase (ALT/SGPT) 15, Alkaline Phosphatase 68, Total Protein 7.1, Albumin 4.3 06/30/18 00:00: 06/30/18 06:05: White Blood Count 12.5H, Red Blood Count 3.63L, Hemoglobin 7.5L, Hematocrit 27L , Mean Corpuscular Volume 74L, Mean Corpuscular Hemoglobin 21L, Mean Corpuscular Hemoglobin Concent 28L, Red Cell Distribution Width 17.3H, Platelet Count 291, Mean Platelet Volume 9.4, Neutrophils (%) (Auto) 73, Lymphocytes (%) (Auto) 14, Monocytes (%) (Auto) 10, Eosinophils (%) (Auto) 3, Basophils (%) ( Auto) 0, Neutrophils # (Auto) 9.1H, Lymphocytes # (Auto) 1.8, Monocytes # (Auto ) 1.2H, Eosinophils # (Auto) 0.3, Basophils # (Auto) 0.1 06/30/18 06:25: Sodium Level 136, Potassium Level 4.5, Chloride Level 108H, Carbon Dioxide Level 19L, Anion Gap 9, Blood Urea Nitrogen 9, Creatinine 0.64, Estimat Glomerular Filtration Rate > 60, BUN/Creatinine Ratio 14, Glucose Level 115H, Calcium Level 8.0L, Corrected Calcium 8.6, Total Bilirubin 0.2, Aspartate Amino Transf (AST/SGOT) 16, Alanine Aminotransferase (ALT/SGPT) 11, Alkaline Phosphatase 48, Total Protein 5.4L, Albumin 3.2 06/30/18 09:29: Urine Test NEGATIVE Assessment/Plan Assessment/Plan Assessment/Plan Left Upper Arm Abscess Pt will be made NPO, switch to Toradol and plan for I&D with probable packing later today. Unfortunately previous attempts at drainage were not enough and she will need a larger incision to get to the firm area in her arm. Discussed surgery with pt; risks and complications not limited to pain, bleeding, infection and scar. The area is not getting better and possibly getting worse; will therefore need a larger incision to drain and thereby allowing ABX to work. Will get better cultures so we can direct therapy and may be able to send home today. Clinical Quality Measures DVT/VTE Risk/Contraindication: Risk Factor Score Per Nursin RFS Level Per Nursing on Admit: 2=Moderate PURA WEBSTER DO Jun 30, 2018 09:48
[2018-06-30] MEDS: NS IV 1000 ML 1,000 ML IV SCH ×2 (10:42→23:10)
[2018-06-30 12:00] VITALS: BP 92/50
[2018-06-30] MEDS ORDERED: LIDOCAINE PF 2% 5 ML (XYLOCAINE) VIAL ONE (14:41)
[2018-06-30] MEDS ORDERED: PROPOFOL INJECTION 50 ML IV ONE (14:41)
[2018-06-30] MEDS ORDERED: ONDANSETRON 4 MG/2 ML (SDV) Z0FRAN ONE (14:41)
[2018-06-30] MEDS ORDERED: SEVOFLURANE (ULTANE) 15 ML INHAL SOLN ONE ×2 (14:41→15:43)
[2018-06-30] MEDS ORDERED: MIDAZOLAM 2 MG/2 ML (VERSED) VIAL ONE (14:41)
[2018-06-30] MEDS ORDERED: DEXAMETHASONE 10 MG/ML (DECADRON) 1 ML VIAL ONE (14:41)
[2018-06-30] MEDS ORDERED: fentaNYL INJECTION 100 MCG/2 ML AMP ONE (14:41)
[2018-06-30] MEDS ORDERED: BUPIVACAINE 0.5% 30 ML (SENSORCAINE) VIAL ONE (14:51)
[2018-06-30] MEDS ORDERED: LIDOCAINE/EPI 1%-1:100,000 (XYLOCAINE) 20ML ONE (14:51)
--- NOTE | 2018-06-30 15:07 | NUR ---
TO OR PER BED.
[2018-06-30] MEDS ORDERED: HYDROmorphone 2 MG/ML VIAL (DILAUDID) ONE (15:50)
--- NOTE | 2018-06-30 15:52 | Progress Note-Post Operative ---
Post-Operative Progess Note Surgeon (s)/Malter Operator (s) Surgeon PURA WEBSTER DO Malter Operator: none Pre-Operative Diagnosis Left Arm and Axillary Abscess Post-Operative Diagnosis same pending pathology Procedure & Operative Findings Date of Procedure 06/30/18 Procedure Performed/Findings Incision and drainage of Left Arm and Axilla with debridement and packing Debridement down to muscle and fascia measure appx 8x 3.5 x 3cm Anesthesia Type LMA Estimated Blood Loss Estimated blood loss (mL): scant Specimens/Packing Specimens Removed culture x 2 Necrotic tissue PURA WEBSTER DO Jun 30, 2018 15:52
[2018-06-30] MEDS ORDERED: LACTATED RINGERS 1,000 ML IV PRN (16:00)
[2018-06-30] MEDS ORDERED: ONDANSETRON 4 MG/2 ML (SDV) Z0FRAN IVP PRN (16:15)
[2018-06-30] MEDS ORDERED: HYDROmorphone 2 MG/ML VIAL (DILAUDID) IV ONE (16:15)
--- NOTE | 2018-06-30 17:00 | NUR ---
REC'D PER BED FROM PAR. ALERT AND ORIENTED. DRESSING D/I LEFT AXILLA. FAMILY AT BEDSIDE.
--- NOTE | 2018-06-30 17:15 | NUR ---
TOOK IV APART AND GOT SELF UP TO BR. INSTRUCTED TO NOT TAKE IV APART AND RECONNECTED USING NEW TUBING.
[2018-06-30 20:27] VITALS: BP 100/58
--- NOTE | 2018-06-30 21:45 | NUR ---
Pt continues to c/o pain rated 7/10; contacted Dr Garvin rec'd order for 0.2mg/kg Ketamine one time dose. Dosage verified with [facility]. Contacted supervisor phosphatic fertilizer to retrieve medication from surgery. Informed by supervisor phosphatic fertilizer medication can not be administered on med-surg floor; medication non-administered. Informed pt; will continue to offer IV and oral pain medications available. Will continue to monitor.
[2018-06-30] MEDS ORDERED: KETAMINE HCL 100 MG/ML 5 ML VIAL IM ONE (22:00)
[2018-07-01] VITALS (9 sets, daily range): BP systolic 96–119; BP diastolic 55–66
[2018-07-01] MEDS: PIPERACILLIN/TAZO 4.5 GM/NS 100 ML IV SCH ×6 (00:36→17:40)
[2018-07-01] MEDS: KETOROLAC 30 MG/ML VIAL IVP PRN ×4 (00:45→20:31)
[2018-07-01] MEDS: ACETAMINOPHEN 500 MG TAB (TYLENOL) PO PRN ×2 (04:12→09:56)
--- NOTE | 2018-07-01 04:12 | OPERATIVE REPORT ---
DATE OF SERVICE: 06/30/2018 PREOPERATIVE DIAGNOSES: Left axillary and arm abscess. POSTOPERATIVE DIAGNOSES: Left axillary and arm abscess, pending pathology. PROCEDURE: Incision and drainage with debridement and packing of left axilla and upper arm. SURGEON: Rony Collier D.O. CNC MAINTENANCE TECHNICIAN: None. ANESTHESIA: LMA. SPECIMEN: Two cultures and portion of necrotic tissue. BLOOD LOSS: Scant. FLUIDS: Per anesthesia. POSTOPERATIVE CONDITION: Stable. INDICATION FOR PROCEDURE: The patient is a 42-year-old female, who presented with pain, left arm abscess, looked like it was spreading and needs incision and drainage. FINDINGS: The patient had a left arm abscess that connected was debrided and packed by iodoform. PROCEDURE NOTE: After informed consent was obtained, the patient was brought to the operating room, placed on table in supine position. She was sterilely prepped and draped in normal fashion. Local lidocaine was used to infiltrate the area around the abscess. She had two small spots that were leaking out some purulent fluid right in the axilla and then a firm area that went along the upper arm, the erythema in the arm went down towards the elbow. After infiltrating around these areas with local then made an incision through the 2 small areas that were leaking purulent fluid. I believe these spots have been previously attempted to be drained, went through a #15 blade, carried down through the skin into subcutaneous tissue, then deepened down to subcutaneous tissue with Bovie electrocautery and then extended this incision further towards the elbow distally, encountered some whitish purulent fluid. There were 2 spots, one with smaller openings and then the larger one that was in the arm which is between muscles. Cultured both of these, cut out some of the necrotic tissue, it almost looked like a sterile abscess was a foul smell, but it was definitely in between muscles wanted to bring down some of the muscle and fascia. Cut out a couple of cut out some necrotic tissue sent to pathology. The area debrided was 8 cm long x 3.5 cm wide x 3 cm deep. After this was completely debrided and cleaned out. There was no more necrotic tissue then could obtain hemostasis with the electrocautery. Copiously irrigated with normal saline, suctioned this out and dried it and then placed iodoform one inch iodoform packing. Area was then cleaned and dried and a dressing placed. The patient then transferred to recovery room in stable condition. Sponge, instrument and needle counts correct at the end of the case. Job ID: [id number] DocumentID: [id number] Dictated Date: 06/30/2018 15:49:29 [employer] Date: 07/01/2018 04:11:52 Dictated By: RONY COLLIER DO
--- NOTE | 2018-07-01 04:28 | CONSULTATION REPORT ---
DATE OF SERVICE: 06/30/2018 The patient is admitted to room #433. REFERRING PHYSICIAN: Benita Logan DO IMPRESSION: 1. 42-year-old female admitted to the hospital form ER with left axillary swelling and pain. 2. Probable abscess, which was drained at [facility] 2 days ago and on outpatient antibiotic therapy with worsening symptoms and erythema. 3. Microcytic anemia consistent with iron deficiency. History of anemia and requiring 21 units of packed red blood cell transfusion over the last 5 to 6 years per patient history. She indicated that she was following with a carroting machine offbearer in [place]. Last transfusions were more than a year ago, at which time she also received a parenteral iron therapy. 4. History of menorrhagia. RECOMMENDATIONS: 1. Continue management of the left axillary abscess as you are doing with the help from surgery. Agree with the broad spectrum antibiotic until culture and sensitivity results are available. 2. Agree with serum iron studies. 3. If the patient is iron deficient, I would recommend parenteral iron therapy to prevent transfusion requirement. 4. She may need a MANAGEMENT ENGINEER evaluation regarding the menorrhagia, which is most likely the reason for the iron deficiency anemia. 5. We will follow the patient with you. BRIEF HISTORY: The patient is a 42-year-old female who was admitted to [facility] in [place] from the emergency room with left axillary mass, swelling, erythema and pain. The patient mentioned that she was seen at [place] emergency room a few days ago and was diagnosed with an abscess, which was drained. She was started on oral antibiotics with Bactrim-DS, but had worsening erythema, swelling and pain and hence presented to the [place] [facility]. She was admitted for further management. At the time of admission, she was noted to be anemic and hematology consultation was requested for further evaluation and management. The patient is originally from [facility]. She is enrolled in the [facility] program in [place] for drug abuse recovery. Past medical history significant for seizure disorder and probable stroke approximately 6 years ago when she was using recreational drugs including crystal meth regularly. She denied any residual from the strokes. No other major medical problems. Past surgeries include appendectomy, tubal ligation and cholecystectomy in the past. She was diagnosed with anemia approximately 6 years ago and was following with hematology in [place]. By the patient history, she has received 21 units of packed red blood cell transfusion over the last six years. Last transfusion was more than a year ago when she required 4 to 5 units of blood and parenteral iron therapy. She denied ever having a bone marrow evaluation. She has been on oral iron replacement, which causes significant constipation. SOCIAL HISTORY: The patient is from her and lives with a friend in [place]. She was in [place] to attend the drug rehabilitation at [facility]. She has three children, two sons and a daughter ranging in age from 27 through 18 years. All of her children live in [place]. She denied any tobacco or alcohol use, but has used recreational drugs including crystal meth for the last 7 years. She has been clean for the last 6 to 7 months according to her. Previously, she has worked at a [employer]. This has not been working recently. FAMILY HISTORY: Unremarkable with no hematologic problems in the family. Her maternal grandmother had a malignancy. No other cancers in the family. PHYSICAL EXAMINATION: GENERAL: Today showed middle-aged female, well developed, well nourished, awake and oriented, in mild discomfort due to the left axillary discomfort. VITAL SIGNS: Temperature was 98.3, pulse rate of 78, respirations 22, blood pressure 92/50 with oxygen saturation of 98% on room air. HEENT: Normocephalic, extraocular muscles intact, conjunctivae slightly pale. Oral mucosa moist, without lesions. NECK: Supple, with no JVD. SKIN: No cervical or supraclavicular lymphadenopathy palpable. Examination of the left axilla showed swelling in the axilla into the left arm with mild erythema. There is evidence of incision and drainage of the left axillary mass. Right axilla and inguinal region showed no significant lymphadenopathy. CHEST: Symmetrical. LUNGS: Fairly clear to auscultation without wheezes or rales. CARDIOVASCULAR: Regular in rate and rhythm without murmurs or gallops. ABDOMEN: Soft, nontender with no hepatosplenomegaly or other masses palpable. EXTREMITIES: Show edema and erythema of the left upper arm. Rest of the extremities with no edema. NEUROLOGIC: Showed no focal motor deficits. LABORATORY DATA: CBC done today showed WBC 12.5, hemoglobin 7.5, MCV 74, RDW 17.3, platelet count 291,000 with neutrophil count 9.1, lymphocyte count 1.8 and monocyte count 1.2. I reviewed the peripheral smear from yesterday, which showed a with mild microcytosis. Hypochromia was moderate. Neutrophils were slightly increased in number with toxic granulation. Lymphocytes appeared reactive. No immature cells identified. Minimal rouleaux formation noted. Platelets appeared morphologically normal. Chemistry panel done today showed normal electrolytes except CO2 level of 19, BUN was 9 and creatinine 0.64 with GFR more than 60 mL per minute. Nonfasting glucose was 115. Liver function studies were within normal limits. Coagulation studies were within normal limits. Urine tox screen was negative. Urine test was negative. Wound culture obtained yesterday from the emergency room, is growing Staphylococcus aureus. Two blood cultures were negative at this time. Serum iron studies done today morning are pending. Thank you for allowing me to participate in this patient's care. I will follow the patient with you and make appropriate recommendations. Job ID: [id number] DocumentID: [id number] Dictated Date: 06/30/2018 18:33:49 Glass Etcher Helper Date: 07/01/2018 04:28:18 Dictated By: JULEE BUCK MD MTDD
[2018-07-01] MEDS: CATHETER FLUSH 10 ML SYR IV SCH ×3 (06:47→22:28)
[2018-07-01] MEDS ORDERED: TROUGH ORDER-PHARMACY XX NR (07:00)
[2018-07-01 07:30] LABS: ABSOLUTE RETIC # 50 10e9/L (24-90); BASOPHILS % (AUTO) 1 % (0-10); EOSINOPHILS # (AUTO) 0.2 10^3/uL (0.0-0.3); EOSINOPHILS % (AUTO) 4 % (0-10); HEMATOCRIT 24 % (35-52); LYMPHOCYTES # (AUTO) 1.2 X 10^3 (1.0-4.0); LYMPHOCYTES % (AUTO) 23 % (12-44); MEAN CORPUSCULAR HEMOGLOBIN 21 PG (25-34); MEAN CORPUSCULAR HGB CONC 28 G/DL (32-36); MEAN CORPUSCULAR VOLUME 75 FL (80-99); MEAN PLATELET VOLUME 8.6 FL (7.4-10.4); MONOCYTES # (AUTO) 0.6 X 10^3 (0.0-1.0); MONOCYTES % (AUTO) 12 % (0-12); NEUTROPHILS # (AUTO) 3.1 X 10^3 (1.8-7.8); NEUTROPHILS % (AUTO) 61 % (42-75); PLATELET COUNT 208 10^3/uL (130-400); RED CELL DISTRIBUTION WIDTH 17.7 % (10.0-14.5); RETICULOCYTE % 1.61 % (0.50-2.40)
[2018-07-01 07:37] LABS: HEMOGLOBIN 6.5 G/DL (11.5-16.0)
[2018-07-01 07:53] LABS: ALANINE AMINOTRANSFERASE 602 U/L (0-55); ALBUMIN 3.3 GM/DL (3.2-4.5); ALKALINE PHOSPHATASE 194 U/L (40-136); BILIRUBIN,TOTAL 0.2 MG/DL (0.1-1.0); BUN/CREATININE RATIO 12; CALCIUM 8.1 MG/DL (8.5-10.1); CARBON DIOXIDE 20 MMOL/L (21-32); CHLORIDE 109 MMOL/L (98-107); CREATININE SERUM 0.59 MG/DL (0.60-1.30); GFR ESTIMATED > 60; GLUCOSE 103 MG/DL (70-105); POTASSIUM 4.5 MMOL/L (3.6-5.0); SODIUM 139 MMOL/L (135-145); TOTAL PROTEIN 5.7 GM/DL (6.4-8.2)
[2018-07-01 07:59] LABS: VANCOMYCIN,TROUGH 7.1 UG/ML (10.0-20.0)
[2018-07-01] MEDS: VANCOMYCIN 1 GM/NS 250 ML IVPB IV SCH ×4 (08:23→17:39)
--- NOTE | 2018-07-01 08:25 | NUR ---
VANCOMYCIN DOSING TROUGH LEVEL 7.1 - INCREASE FREQUENCY TO VANC 1 GM Q8H - CHECK TROUGH LEVEL 2/6 AT 0700 HOLD DOSE IF LEVEL IS GREATER THAN 20
[2018-07-01] MEDS ORDERED: IRON SUCROSE 200 MG/10 ML (VENOFER) VIAL IV SCH (09:30)
--- NOTE | 2018-07-01 09:39 | Progress Note-Hospitalist ---
ANGIE PERKINS 07/01/18 0939: Subjective HPI/CC On Admission Date Seen by Provider: Jul 01, 2018 Time Seen by Provider: 09:45 CC: [place] [facility] [place] residual spreading cellulitis HPI: This is a 42-year-old white female who had been enrolled in the [facility] program in [place] for drug abuse recovery who presented after failed oral antibiotics and small incision and drainage at [facility]. She is currently on Zosyn and vancomycin and Dr. Castillo tends to perform an in-depth incision and drainage today. Patient is holding her arm up because the abscess is too painful to lay her arm close to her body. 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 Urine drug screen will be sent. 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 Dr. Aviles will see her in consultation. Subjective/Events-last exam Pt having hives could be due to antibiotics so will monitor closely and initiate Benadryl Severe pain, will initiate Oxycodone 10mg every six hours as needed but keep in mind she is an admitted drug abuser Had incision and drainage at the left axilla by Dr. Collier yesterday, surgery uncomplicated but packing was placed Iron deficiency, receiving iron infusions from Dr. Hooker Having menorrhagia she notes and iron constipates her too bad to take orally Noted liver enzyme elevation so will initiate abdominal ultrasound and GGT along with INR and ammonia and pursue the source of that Review of Systems General: Fatigue Musculoskeletal: arm pain Focused Exam Lactate Level 06/29/18 17:20: Lactic Acid Level 1.10 Objective Exam Vital Signs Vital Signs Date Time Temp Pulse Resp B/P (MAP) Pulse Ox O2 Delivery O2 Flow Rate FiO2 07/01/18 17:17 97.8 96/55 72 07/01/18 16:27 77 20 Room Air Capillary Refill : Less Than 3 SecondsLess Than 3 Seconds General Appearance: WD/WN, Chronically ill, Moderate Distress (due to pain) HEENT: PERRL/EOMI, TMs Normal, Normal ENT Inspection, Pharynx Normal Neck: Full Range of Motion, Normal Inspection, Non Tender, Supple, Carotid Bruit Respiratory: Chest Non Tender, Lungs Clear, Normal Breath Sounds, No Accessory Muscle Use, No Respiratory Distress Cardiovascular: Regular Rate, Rhythm, No Edema, No Gallop, No JVD, No Murmur, Normal Peripheral Pulses Gastrointestinal: Normal Bowel Sounds, No Organomegaly, No Pulsatile Mass, Non Tender, Soft Back: Normal Inspection, No CVA Tenderness, No Vertebral Tenderness Extremity: Normal Capillary Refill, Normal Inspection, Normal Range of Motion, Non Tender, No Calf Tenderness, No Pedal Edema Neurologic/Psychiatric: Alert, Oriented x3, No Motor/Sensory Deficits, Normal Mood/Affect Skin: Normal Color, Warm/Dry, Erythema, Other (Significant area of induration spreading from L axilla about 5 cm distal down arm, also warm, erythematous,and tender. Erythema extends two thirds of way distally down arm. Two small punctures from previous I&D visible, no longer open or draining. ) Lymphatic: No Adenopathy Results/Procedures Lab Laboratory Tests 07/01/18 07:20 Patient resulted labs reviewed. 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 Elevated LFT's checking USG, GGT, INR, ammonia and viral hepatitis panel Plan: Consult Dr Aviles and Dr Collier is appreciated Iron infusions s/p Needs I&D await culture Diagnosis/Problems Diagnosis/Problems (1) Abscess Status: Resolved Resolution Date/Time: 07/01/18 @ 14:06 (2) Cellulitis Status: Acute Qualifiers: Site of cellulitis of extremity: axilla Laterality: left (3) Anemia Status: Chronic Qualifiers: Anemia type: iron deficiency Iron deficiency anemia type: unspecified iron deficiency Qualified Codes: D50.9 - Iron deficiency anemia, unspecified (4) Drug abuse Status: Chronic (5) Fever Status: Acute Qualifiers: Fever type: unspecified Qualified Codes: R50.9 - Fever, unspecified (6) Nausea & vomiting Status: Acute Qualifiers: Vomiting type: unspecified Vomiting Intractability: unspecified Qualified Codes: R11.2 - Nausea with vomiting, unspecified (7) Old cerebrovascular accident (CVA) without late effect Status: Chronic (8) Acute hepatitis Status: Acute (9) Urticaria Status: Acute Clinical Quality Measures DVT/VTE Risk/Contraindication: Risk Factor Score Per Nursin RFS Level Per Nursing on Admit: 2=Moderate ROMEO CORDERO MEDICAL STUDENT 07/01/18 1356: Subjective HPI/CC On Admission CC: L axilla redness, pain, swelling HPI: This is 42 yo white female who presented to the ER yesterday afternoon with worsening L axillary swelling, pain, and redness. Four days ago the [facility] and was prescribed Bactrim. Since the area continued to worsen the pt went to [facility] ER two days ago. She received an I& D of the L axilla and a single injection of Rocephin. The pt came to the [facility] ER yesterday afternoon because the redness had spread down her elbow, well past the pen marilu drawn two days ago in [place]. She endorses fever of 101F at home as well as n/v. Denies CP, SOB, or abdominal pain. 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 She is currently at the [facility] in [place]. 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 Her PCP in [place] is Dr. Raphael, although she has not been seen by them for about 1 year. She states she has been transfused 21 times in the last 6 years. Was worked up by a [employer] but no etiology was found. Subjective/Events-last exam Pt complaining unbearable pain in L axilla and difficulty sleeping Also had onset of pruritus and rash on R wrist this morning Denies CP, SOB, limb swelling Review of Systems General: No Chills, No Fatigue HEENT: No Head Aches, No Dysphasia Pulmonary: No Dyspnea, No Cough Cardiovascular: No: Chest Pain Gastrointestinal: No: Nausea, Vomiting Genitourinary: No Retention Neurological: No: Weakness, Numbness L axilla pain at incision site, pruritus/rash Objective Exam General Appearance: No Apparent Distress, WD/WN HEENT: PERRL/EOMI, TMs Normal, Normal ENT Inspection, Pharynx Normal Neck: Full Range of Motion, Normal Inspection, Non Tender, Supple Respiratory: Chest Non Tender, Lungs Clear, Normal Breath Sounds, No Accessory Muscle Use, No Respiratory Distress Cardiovascular: Regular Rate, Rhythm, No Edema, No Gallop, No Murmur, Normal Peripheral Pulses Gastrointestinal: Normal Bowel Sounds, Non Tender, Soft Extremity: Normal Capillary Refill, Normal Range of Motion, No Calf Tenderness , No Pedal Edema Neurologic/Psychiatric: Alert, Oriented x3, No Motor/Sensory Deficits, Normal Mood/Affect Skin: Normal Color, Warm/Dry, Erythema, Other (Dressing over incision site in L axilla, no oozing appreciated, no surrounding erythema. 3 small circular areas of urticaria on R wrist) Lymphatic: No Adenopathy Results/Procedures Imaging: Reviewed Imaging Films, Reviewed Imaging Report Assessment/Plan Assessment and Plan Assess & Plan/Chief Complaint Assessment: L axillary abscess/cellulitis, s/p I&D by Dr. Collier POD#1 Elevated liver enzymes, acute hepatitis Hyperammonemia Urticarial reaction Acute on chronic anemia Hx of meth abuse Hx of CVA 6 years ago Plan: Initial wound drainage culture showed staph aureus. Anaerobic culture from I&D pending. Continue IV Vancomycin and Zosyn Urticarial reaction, could be drug related. Not likely due to liver injury, as bilirubin is low-normal. Give Benadryl and monitor for anaphylaxis Liver/Gallbladder US revealed likely mild fatty changes. Order GGT, Ammonia, and Viral Hepatitis panel Pain control with short acting oxycodone for now Diagnosis/Problems Diagnosis/Problems (1) Acute hepatitis Status: Acute (2) Urticaria Status: Acute (3) Abscess Status: Resolved Resolution Date/Time: 07/01/18 @ 14:06 (4) Anemia Status: Chronic Qualifiers: Anemia type: iron deficiency Iron deficiency anemia type: unspecified iron deficiency Qualified Codes: D50.9 - Iron deficiency anemia, unspecified (5) Old cerebrovascular accident (CVA) without late effect Status: Chronic (6) Drug abuse Status: Chronic ANGIE PERKINS DO Jul 01, 2018 09:39 ROMEO CORDERO MEDICAL STUDENT Jul 01, 2018 13:56
[2018-07-01] MEDS ORDERED: diphenhydrAMINE 50 MG/ML INJ (BENADRYL) ONE (09:50)
[2018-07-01] MEDS ORDERED: diphenhydrAMINE 50 MG/ML INJ (BENADRYL) IV PRN (10:00)
[2018-07-01 10:19] LABS: PROTHROMBIN TIME PATIENT 13.5 SEC (12.2-14.7)
--- NOTE | 2018-07-01 12:32 | Diagnostic Imaging Report ---
EXAM: RIGHT UPPER QUADRANT ULTRASOUND. DATE: July 01, 2018. COMPARISON: CT abdomen/pelvis of January 08, 2017. INDICATION: 42-year-old female, elevated liver function tests. PROCEDURE: Two-dimensional grayscale and color doppler ultrasound examination of the right upper quadrant was performed. FINDINGS: Liver: The liver is questionably mildly diffusely increased in echogenicity suggesting potential mild diffuse fatty infiltration of the liver. The outer liver contours are not grossly nodular. There is no demonstrated solid or cystic liver lesion. Bile ducts and gallbladder: The gallbladder is surgically absent. There is no intrahepatic bile duct dilation. The common bile duct is measured at 8 mm in diameter which is just above the upper limits of normal. Right kidney: Unremarkable right kidney. No hydronephrosis. The right kidney measures 11.4 cm x 4.5 cm x 6.2 cm. Pancreas: Normal visualized pancreas. IMPRESSION: 1. Question mild diffuse fatty infiltration of the liver. 2. Otherwise unremarkable sonographic appearance of the liver parenchyma. 3. Status post cholecystectomy. Slight prominence of the common bile duct measuring up to 8 mm in diameter. Recommend correlation with laboratory values. Dictated by: Dictated on workstation # [id number]
[2018-07-01] MEDS: NS IV 1000 ML 1,000 ML IV SCH ×2 (13:39→23:21)
--- NOTE | 2018-07-01 15:56 | NUR ---
LATE ENTRY: DR PERKINS NOTIFIED AT 0753 OF CRITICAL HGB RESULTS. ORDERS RECEIVED TO NOTIFY DR BUCK OF RESULTS. THIS RN LEFT MESSAGE WITH DR BUCK AT [id number]. 0421 DR BUCK CALLED AND NEW ORDERS RECEIVED TO TRANSFUSE 1 UNIT PACKED RED BLOOD CELLS, AND TO OCCULT STOOL. ORDERS READ BACK AND VERIFIED. PT INFORMED.
--- NOTE | 2018-07-01 16:54 | Anesthesia-General Post-Op ---
General Patient Condition Mental Status/LOC: Same as Preop Cardiovascular: Satisfactory Nausea/Vomiting: Absent Respiratory: Satisfactory Pain: Controlled Complications: Absent Post Op Complications Complications None Follow Up Care/Instructions Patient Instructions None needed. Anesthesia/Patient Condition Patient Condition Patient is doing well, no complaints, stable vital signs, no apparent adverse anesthesia problems. LANDON IZAGUIRRE DO Jul 01, 2018 16:54
--- NOTE | 2018-07-01 17:37 | Progress Note-Standard ---
Standard Progress Note Progress Notes/Assess & Plan Date Seen by a Provider: Jul 01, 2018 Time Seen by a Provider: 17:34 Progress/Assessment & Plan 42-year-old female admitted to the hospital with left axillary abscess, status post incision and drainage with packing. Cultures growing MRSA. Patient is on broad-spectrum antibiotics with vancomycin and Zosyn. Zosyn may be discontinued. Noted with significant anemia and iron studies consistent with significant iron deficiency. We will transfuse with 1 unit of packed red blood cells for a hemoglobin level of 6.8 and start Venofer 200 mg IV today and repeat the dose every other day 5. We will check stools for occult blood to find the source of blood loss. Patient gives history of menorrhagia but currently is not having her periods. Monitor CBC serially. Focused Exam Lactate Level 06/29/18 17:20: Lactic Acid Level 1.10 JULEE BUCK Jul 01, 2018 17:37
[2018-07-01] MEDS: ONDANSETRON 4 MG/2 ML (SDV) Z0FRAN IV PRN (18:19)
[2018-07-01] MEDS: diphenhydrAMINE 50 MG/ML INJ (BENADRYL) IVP PRN (20:36)
[2018-07-02] VITALS: BP 115/58
[2018-07-02] MEDS: VANCOMYCIN 1 GM/NS 250 ML IVPB IV SCH ×6 (00:11→16:50)
[2018-07-02] MEDS: PIPERACILLIN/TAZO 4.5 GM/NS 100 ML IV SCH ×6 (01:11→16:50)
[2018-07-02] MEDS: ACETAMINOPHEN 500 MG TAB (TYLENOL) PO PRN ×2 (01:38→13:42)
[2018-07-02] MEDS: KETOROLAC 30 MG/ML VIAL IVP PRN ×3 (02:41→15:33)
[2018-07-02] MEDS: diphenhydrAMINE 50 MG/ML INJ (BENADRYL) IVP PRN ×3 (03:55→17:48)
[2018-07-02 06:08] LABS: BASOPHILS # (AUTO) 0.1 10^3/uL (0.0-0.1); BASOPHILS % (AUTO) 1 % (0-10); EOSINOPHILS # (AUTO) 0.4 10^3/uL (0.0-0.3); EOSINOPHILS % (AUTO) 6 % (0-10); HEMATOCRIT 27 % (35-52); HEMOGLOBIN 7.6 G/DL (11.5-16.0); LYMPHOCYTES # (AUTO) 2.1 X 10^3 (1.0-4.0); LYMPHOCYTES % (AUTO) 30 % (12-44); MEAN CORPUSCULAR HEMOGLOBIN 22 PG (25-34); MEAN CORPUSCULAR HGB CONC 29 G/DL (32-36); MEAN CORPUSCULAR VOLUME 76 FL (80-99); MONOCYTES # (AUTO) 0.6 X 10^3 (0.0-1.0); MONOCYTES % (AUTO) 9 % (0-12); NEUTROPHILS # (AUTO) 3.7 X 10^3 (1.8-7.8); NEUTROPHILS % (AUTO) 54 % (42-75); PLATELET COUNT 331 10^3/uL (130-400); RED CELL DISTRIBUTION WIDTH 18.2 % (10.0-14.5); WHITE BLOOD COUNT 6.9 10^3/uL (4.3-11.0)
[2018-07-02 06:30] LABS: HEPATITIS C ANTIBODY C Non-Reactive (Non-Reactive)
[2018-07-02] MEDS: CATHETER FLUSH 10 ML SYR IV SCH ×2 (06:48→13:22)
[2018-07-02 06:50] LABS: ALANINE AMINOTRANSFERASE 441 U/L (0-55); ALBUMIN 3.5 GM/DL (3.2-4.5); ALKALINE PHOSPHATASE 169 U/L (40-136); BILIRUBIN,TOTAL 0.2 MG/DL (0.1-1.0); BUN/CREATININE RATIO 9; CALCIUM 8.5 MG/DL (8.5-10.1); CARBON DIOXIDE 22 MMOL/L (21-32); CHLORIDE 109 MMOL/L (98-107); CREATININE SERUM 0.66 MG/DL (0.60-1.30); GFR ESTIMATED > 60; GLUCOSE 84 MG/DL (70-105); POTASSIUM 4.3 MMOL/L (3.6-5.0); SODIUM 138 MMOL/L (135-145); TOTAL PROTEIN 5.9 GM/DL (6.4-8.2)
[2018-07-02 06:56] LABS: VANCOMYCIN,TROUGH 18.4 UG/ML (10.0-20.0)
[2018-07-02] MEDS ORDERED: TROUGH ORDER-PHARMACY XX NR (07:00)
[2018-07-02 08:00] VITALS: BP 115/54
[2018-07-02] MEDS: ONDANSETRON 4 MG/2 ML (SDV) Z0FRAN IV PRN (10:37)
--- NOTE | 2018-07-02 10:52 | NUR ---
Dr Collier here at this time. Pt to be discharged. See discharge instructions for further info
--- NOTE | 2018-07-02 10:55 | Progress Note ---
Subjective Time Seen by a Provider: 10:43 Subjective/Events-last exam Pt seen and examined, states pain controlled. Review of Systems General: No Chills, No Night Sweats Pulmonary: No Dyspnea, No Cough Focused Exam Lactate Level 06/29/18 17:20: Lactic Acid Level 1.10 Objective Exam Vital Signs Date Time Temp Pulse Resp B/P (MAP) Pulse Ox O2 Delivery O2 Flow Rate FiO2 07/02/18 08:00 98 Room Air 07/02/18 08:00 97.5 77 18 115/54 (74) 99 07/02/18 00:00 99.8 78 18 115/58 (77) 95 07/01/18 20:10 98 Room Air 07/01/18 19:40 99.6 72 18 117/56 (76) 98 Room Air 07/01/18 17:17 97.8 96/55 72 07/01/18 16:27 99.4 77 20 97/62 (74) 98 Room Air 07/01/18 15:15 99.0 75 103/59 07/01/18 14:56 99.0 68 108/64 07/01/18 12:00 99.4 75 18 119/63 (81) 95 Room Air I & O 07/02/18 07:00 Intake Total 4300 ml Output Total 4325 ml Balance -25 ml Capillary Refill : Less Than 3 SecondsLess Than 3 Seconds General Appearance: No Apparent Distress, WD/WN HEENT: PERRL/EOMI Respiratory: Lungs Clear, Normal Breath Sounds, No Accessory Muscle Use, No Respiratory Distress Extremity: No Calf Tenderness, No Pedal Edema Neurologic/Psychiatric: Alert, Oriented x3 Skin: Other (packing in place, erythema much better ) Results Lab Laboratory Tests 07/01/18 15:00: Hepatitis A IgM Antibody Non-Reactive, Hepatitis B Surface Antigen Non-Reactive , Hepatitis B Core IgM Antibody Non-Reactive, Hepatitis C Antibody Non-Reactive 07/02/18 05:45: White Blood Count 6.9, Red Blood Count 3.49L, Hemoglobin 7.6L, Hematocrit 27L, Mean Corpuscular Volume 76L, Mean Corpuscular Hemoglobin 22L, Mean Corpuscular Hemoglobin Concent 29L, Red Cell Distribution Width 18.2H, Platelet Count 331, Mean Platelet Volume 9.0, Neutrophils (%) (Auto) 54, Lymphocytes (%) (Auto) 30, Monocytes (%) (Auto) 9, Eosinophils (%) (Auto) 6, Basophils (%) (Auto) 1, Neutrophils # (Auto) 3.7, Lymphocytes # (Auto) 2.1, Monocytes # (Auto) 0.6, Eosinophils # (Auto) 0.4H, Basophils # (Auto) 0.1, Sodium Level 138, Potassium Level 4.3, Chloride Level 109H, Carbon Dioxide Level 22, Anion Gap 7, Blood Urea Nitrogen 6L, Creatinine 0.66, Estimat Glomerular Filtration Rate > 60, BUN/ Creatinine Ratio 9, Glucose Level 84, Calcium Level 8.5, Corrected Calcium 8.9, Total Bilirubin 0.2, Aspartate Amino Transf (AST/SGOT) 241H, Alanine Aminotransferase (ALT/SGPT) 441H, Alkaline Phosphatase 169H, Total Protein 5.9L , Albumin 3.5, Vancomycin Level Trough 18.4 Microbiology 06/29/18 Blood Culture - Preliminary, Resulted No growth 06/30/18 MRSA Screen - Final, Complete MRSA not isolated 06/30/18 Gram Stain - Final, Resulted 06/30/18 Anaerobic Culture - Preliminary, Resulted No anaerobes isolated 06/30/18 Surgical Culture - Preliminary, Resulted Staphylococcus aureus Assessment/Plan Assessment/Plan Assessment/Plan S/P I&D with debridement and packing of Left Upper Arm Abscess Pt is ok to go home. Will need teaching on replacing the packing. Told to bleach entire room and bathroom; secondary to culture positive for MRSA. Follow up in my office in a week. She had no questions. Clinical Quality Measures DVT/VTE Risk/Contraindication: Risk Factor Score Per Nursin RFS Level Per Nursing on Admit: 2=Moderate PURA WEBSTER DO Jul 02, 2018 10:55
[2018-07-02] MEDS ORDERED: IBUP-1779 PO (11:49)
[2018-07-02] MEDS ORDERED: SULF1TAB35 PO (11:49)
[2018-07-02] MEDS ORDERED: TRAM-42 PO (11:49)
--- NOTE | 2018-07-02 11:50 | Discharge Summary-Hospitalist ---
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 Plan: Consult Dr Aviles Check iron studies Needs I&D Discharge Diagnosis (1) Abscess Status: Resolved (2) Cellulitis Status: Acute (3) Anemia Status: Chronic (4) Drug abuse Status: Chronic (5) Fever Status: Acute (6) Nausea & vomiting Status: Acute (7) Old cerebrovascular accident (CVA) without late effect Status: Chronic (8) Acute hepatitis Status: Acute (9) Urticaria Status: Acute Discharge Summary Discharge Physical Exam Allergies: Coded Allergies: No Known Drug Allergies (Unverified , 06/29/18) Vitals & I&Os Vital Signs Date Time Temp Pulse Resp B/P (MAP) Pulse Ox O2 Delivery O2 Flow Rate FiO2 07/02/18 18:37 82 18 119/64 100 Room Air 07/02/18 16:55 97.4 General Appearance: No Apparent Distress, WD/WN HEENT: PERRL/EOMI Respiratory: Lungs Clear, Normal Breath Sounds, No Accessory Muscle Use, No Respiratory Distress Gastrointestinal: Normal Bowel Sounds, No Organomegaly, No Pulsatile Mass, Non Tender, Soft Extremity: No Calf Tenderness, No Pedal Edema Skin: Other (packing in place, erythema much better ) Neurologic/Psychiatric: Alert, Oriented x3 Hospital Course Was the Problem List Reviewed?: Yes Pt had an uneventful hospital course. She was admitted, placed on IV antibiotics of Zosyn and Vancomycin. Pt required incision and drainage of the left axilla abscess by Dr. Collier. Packing was placed. Pt was placed on Bactrim oral antibiotics along with Ultram and Motrin as she requested since she is going back to [facility] for drug rehab. She will have close follow up with Dr. Collier Labs (last 24 hrs) Laboratory Tests 07/02/18 05:45: White Blood Count 6.9, Red Blood Count 3.49L, Hemoglobin 7.6L, Hematocrit 27L, Mean Corpuscular Volume 76L, Mean Corpuscular Hemoglobin 22L, Mean Corpuscular Hemoglobin Concent 29L, Red Cell Distribution Width 18.2H, Platelet Count 331, Mean Platelet Volume 9.0, Neutrophils (%) (Auto) 54, Lymphocytes (%) (Auto) 30, Monocytes (%) (Auto) 9, Eosinophils (%) (Auto) 6, Basophils (%) (Auto) 1, Neutrophils # (Auto) 3.7, Lymphocytes # (Auto) 2.1, Monocytes # (Auto) 0.6, Eosinophils # (Auto) 0.4H, Basophils # (Auto) 0.1, Sodium Level 138, Potassium Level 4.3, Chloride Level 109H, Carbon Dioxide Level 22, Anion Gap 7, Blood Urea Nitrogen 6L, Creatinine 0.66, Estimat Glomerular Filtration Rate > 60, BUN/ Creatinine Ratio 9, Glucose Level 84, Calcium Level 8.5, Corrected Calcium 8.9, Total Bilirubin 0.2, Aspartate Amino Transf (AST/SGOT) 241H, Alanine Aminotransferase (ALT/SGPT) 441H, Alkaline Phosphatase 169H, Total Protein 5.9L , Albumin 3.5, Vancomycin Level Trough 18.4 07/02/18 14:38: Lab Scanned Report Transfusion Reaction Form Microbiology 06/29/18 Blood Culture - Preliminary, Resulted No growth 06/30/18 MRSA Screen - Final, Complete MRSA not isolated 06/30/18 Gram Stain - Final, Resulted 06/30/18 Anaerobic Culture - Preliminary, Resulted No anaerobes isolated 06/30/18 Surgical Culture - Preliminary, Resulted Staphylococcus aureus See Comments Patient resulted labs reviewed. Pending Labs Laboratory Tests 07/02/18 14:38: Lab Scanned Report Transfusion Reaction Form Imaging: Reviewed Imaging Films, Reviewed Imaging Report Discussion & Recommendations Discharge Planning: <30 minutes discharge planning Discharge Home Medications: Active Scripts Active Ibuprofen 400 Mg Tablet 400 Mg PO Q6H PRN Ultram (Tramadol HCl) 50 Mg Tablet 50 Mg PO Q6H Bactrim Ds Tablet (Sulfamethoxazole/Trimethoprim) 1 Each Tablet 1 Each PO BID Reported Folic Acid 0.4 Mg Tablet 0.4 Mg PO DAILY Vitamin C (Ascorbic Acid) 500 Mg Capsule 500 Mg PO DAILY Vitamin B-12 (Cyanocobalamin (Vitamin B-12)) 50 Mcg Tablet 50 Mcg PO DAILY Multi-Vitamin Daily (Multivitamin) 1 Each Tablet 1 Each PO DAILY Instructions to patient/family Please see electronic discharge instructions given to patient. Clinical Quality Measures DVT/VTE Risk/Contraindication: Risk Factor Score Per Nursin RFS Level Per Nursing on Admit: 2=Moderate ROMEO CORDERO MEDICAL STUDENT 07/02/181921: Diagnosis/Chief Complaint Admission Diagnosis L axilla abscess Discharge Diagnosis L axilla abscess s/p I&D and packing (1) Abscess of axilla, left Status: Acute (2) Drug abuse Status: Chronic (3) Fever Status: Acute (4) Urticaria Status: Acute (5) Acute hepatitis Status: Acute (6) Anemia Status: Chronic Discharge Summary Procedures/Consulations General surgery was consulted for I&D Discharge Physical Exam Allergies: Coded Allergies: No Known Drug Allergies (Unverified , 06/29/18) General Appearance: No Apparent Distress, WD/WN HEENT: PERRL/EOMI, Pharynx Normal, Moist Mucous Membranes Respiratory: Lungs Clear, Normal Breath Sounds, No Respiratory Distress Cardiovascular: Regular Rate, Rhythm, No Murmur, Normal Peripheral Pulses Gastrointestinal: Normal Bowel Sounds, Non Tender, Soft Extremity: No Calf Tenderness, No Pedal Edema Skin: Normal Color, Warm/Dry, Other (packing in place, erythema much better ) Neurologic/Psychiatric: Alert, Oriented x3, No Motor/Sensory Deficits, Normal Mood/Affect Hospital Course Was the Problem List Reviewed?: Yes Hospital course: This is 42 yo white female who presented to the ER with worsening L axillary swelling, pain, and redness. Four days prior to arrival patient was seen at [facility] and was prescribed Bactrim. Since the area continued to worsen the pt went to [facility] ER. She received an I&D of the L axilla ("Lancing") and a single injection of Rocephin. The pt came to the [facility] ER because the redness had spread down her elbow, well past the pen marilu drawn in [place]. Dr. Collier of General Surgery was consulted for I&D of abscess. This was performed w /o complication and the wound was packed. The pt developed acute on chronic anemia (Hgb 6.5), Hematology Dr. Aviles was consulted and pt was transfused w/ one unit. The pt also developed acute hepatitis POD#1 but denied complaints other than pruritus and some urticaria around R wrist. Liver/Gallbladder US, GGT , Viral hepatitis panel, ammonia were ordered to work up elevated liver enzymes but ultimately no etiology was found. The liver enzymes have continued to trend down appropriately. Pt was receiving IV vancomycin and Zosyn empirically until wound culture resulted MRSA positive. The pt will be d/c back to [facility] with PO abx (recommend Clindamycin) w/ f/u at [facility]. Problem Qualifiers (1) Cellulitis: Site of cellulitis of extremity: axilla Laterality: left (2) Anemia: Anemia type: iron deficiency Iron deficiency anemia type: unspecified iron deficiency Qualified Codes: D50.9 - Iron deficiency anemia, unspecified (3) Fever: Fever type: unspecified Qualified Codes: R50.9 - Fever, unspecified (4) Nausea & vomiting: Vomiting type: unspecified Vomiting Intractability: unspecified Qualified Codes: R11.2 - Nausea with vomiting, unspecified ANGIE PERKINS DO Jul 02, 2018 11:50 ROMEO CORDERO MEDICAL STUDENT Jul 02, 2018 19:22
--- NOTE | 2018-07-02 14:39 | Progress Note-Standard ---
Standard Progress Note Progress Notes/Assess & Plan Date Seen by a Provider: Jul 02, 2018 Time Seen by a Provider: 14:38 Progress/Assessment & Plan 42-year-old female admitted to the hospital with left axillary abscess, status post incision and drainage with packing. Cultures growing MRSA and was on treatment with vancomycin. Noted with significant anemia and iron studies consistent with significant iron deficiency. Patient received 1 unit of packed red blood cells for a hemoglobin level of 6.8 and started Venofer 200 mg IV on . She is being discharged to [facility] in [place]. She will either need Venofer 200 mg every other day 4 more doses or one dose of Injectafer 750 mg for a total dose of approximately 1 g of iron. 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 Continue follow-up with hematology in [place] when she returns home. Focused Exam Lactate Level 06/29/18 17:20: Lactic Acid Level 1.10 JULEE BUCK Jul 02, 2018 14:39
[2018-07-02 16:55] VITALS: BP 119/64
[2018-07-02] MEDS: NS IV 1000 ML 1,000 ML IV SCH (17:55)
--- NOTE | 2018-07-02 18:35 | NUR ---
LATANYA MARRUFO demonstrates understanding of discharge instructions and accurately returns instructions upon questioning. Copy of Post-Discharge Instructions given to pt. YARONLATANYA Dorie is able to manage continuing needs after discharge. Patients belongings returned to . Patient discharged from [facility] on 07-02-18 at 1836. LATANYA MARRUFO left floor via , accompanied by . Meds called in to the [facility] and delivered to this floor. Medications given to pt upon discharge. Wound care dressing changes taught and pt verbalized understanding. Pt to come to day surg on saturday for IV venofer. Phone number for Dr Collier given to pt and to call for appt next week.
[2018-07-02 18:37] VITALS: BP 119/64
--- NOTE | 2018-07-03 09:59 | NUR ---
On 07/02,pt discharged to return to [facility] in [place]. She was given an appt. to [facility] at 10 0'[facility] on Saturday the for Injectefer infusion.
== END 2018-07-02 18:39 | DRG 580 ==
LOC: ER 16:55 → 4TH 18:53 → UNDOADMOB 18:53 → 4TH 20:10 → INTOOBSV 06-30 12:52 → OBSVTOIN 06-30 12:52 → UNDODISIN 07-02 18:39
PROVIDERS: ADMIT Internal Medicine; ATTEND Internal Medicine
PROC: 0KB80ZZ Excision of Left Upper Arm Muscle, Open Approach (ICD-10-PCS; principal; 2018-06-30 15:19)
DX: L03.112 Cellulitis of left axilla (principal); E72.20 Disorder of urea cycle metabolism, unspecified; L02.412 Cutaneous abscess of left axilla; L02.414 Cutaneous abscess of left upper limb; B95.62 Methicillin resistant Staphylococcus aureus infection as the cause of diseases classified elsewhere; D50.9 Iron deficiency anemia, unspecified; F15.21 Other stimulant dependence, in remission; G40.909 Epilepsy, unspecified, not intractable, without status epilepticus; K75.9 Inflammatory liver disease, unspecified; L50.9 Urticaria, unspecified; Z86.73 Personal history of transient ischemic attack (TIA), and cerebral infarction without residual deficits; Z87.42 Personal history of other diseases of the female genital tract
CPT/HCPCS: 36415; 76705; 80053; 80074; 80202; 80306; 82140; 82274; 82728; 82977; 83540; 83605; 84703; 85007; 85025; 85027; 85045; 85610; 85730; 86850; 86900; 86901; 86920; 87040; 87070; 87075; 87077; 87081; 87186; 87205; G0378

== ENCOUNTER 2018-07-04 10:13 | Outpatient (RCR) | payer SELFPAY ==
[~2018-07-04] VITALS: Ht 160 cm; Wt 72.1 kg
[~2018-07-04 10:13] MED LIST: ASCO500C17 PO; CYAN50TA3 PO; FOLI0.4T2 PO; IBUP-1779 PO; MULT-974 PO; SULF1TAB35 PO; TRAM-42 PO
[2018-07-04] MEDS ORDERED: FERRIC CARBOXYMALTOSE INJ 750 MG in NS (IVPB) 250 ML IV ONE (10:45)
[2018-07-04 11:20] VITALS: BP 88/66
== END 2018-07-04 11:20 | disposition home or self-care (01) ==
LOC: SDC 10:13
PROVIDERS: ATTEND Internal Medicine Hematology & Oncology
DX: D50.9 Iron deficiency anemia, unspecified (principal)
CPT/HCPCS: 88304; 96365